=== PATIENT | female | born 1990 | race Caucasian/White ===

== ENCOUNTER 2019-03-01 09:11 | Outpatient (RCR) | payer MEDICAID, SELFPAY ==
--- NOTE | 2019-03-01 09:05 | BH.SGPN.GN ---
Behaviors/Verbalizations/Mental Status: [] Eye contact is good. Motor activity is appropriate. Appearance is casual. Speech is Appropriate. Mood is anxious. Affect is congruent. Thoughts are linear and logical. No evidence of psychosis. Reviewed daily check in sheet and no reports of suicidal ideations or intent. Client Response/Progress/Benefit: [] Pt participated at time during group discussion. Shared with the group that this is her first day in IOP. Stated that her anxiety has been decompensating for past several months to the point where she struggles driving long distances which resulted in her missing a medical appointment yesterday. Also reports that due to anxiety she had not been grocery shopping for over a year. Her goals for the program is to lessen the intensity of her anxiety so she could complete normal daily tasks. No progress noted as this was her first day. Will continue in IOP to maintain safety, stabilize anxiety, prevent decompensation, and improve daily functioning. Narrative Note: []
--- NOTE | 2019-03-01 10:08 | BH.SGPN.GN ---
Behaviors/Verbalizations/Mental Status: []Client alert and oriented, disheveled appearance. Eye contact fair. Motor activity appropriate. Speech within normal limits. Affect constricted, mood anxious. Thoughts linear, logical, no signs of hallucinations or delusions. Client Response/Progress/Benefit: []Client participated in group discussion and attentive throughout. Client reported one cannot avoid conflict ?because then you just have internal conflict within.? Worked together with the group to define and identify differences between internal and external conflict. Group identified that if one does not address conflict the issue never gets resolved and it can lead to more issues. Client worked with group to identify barriers to overcoming conflict which included; frustration, anxiety, avoidance, complacency, anger, and not being able to communicate effectively. Attentive during psychoeducation on different conflict styles such as avoiding, accommodating, competing, and collaborative. Started to review benefits and drawbacks to each style and will continue in the following group. Benefited as she was able to identify and define conflict as well as increase awareness of how conflict style impacts mental health. Client?s first day of IOP. Will continue to prevent decompensation and increase mood stability.
--- NOTE | 2019-03-01 11:11 | BH.SGPN.GN ---
Behaviors/Verbalizations/Mental Status: [Client alert and oriented, casually dressed and groomed. Eye contact good. Motor activity appropriate. Speech within normal limits. Affect congruent, mood euthymic, anxious. Thoughts linear, logical, no signs of hallucinations or delusions. ] Client Response/Progress/Benefit: [ Client responded well to session, attentive and engaged throughout. Participated in the group discussion to define and identify differences between internal and external conflict. Client shared for her internal conflicts can be harder to face than external conflict. Group reported the benefits of addressing conflict included improved relationships, feeling empowered, and better mental health. Group completed a challenge activity in which they were faced with potential conflict situations. They did well to relate barriers faced in activity with the potential barriers to facing conflict in own life. Group identified and discussed consequences of not addressing conflict in healthy ways which included: guilt, increased relationship tension, fear and anxiety, and needs not getting met. Client agreed with peers that avoiding conflict only causes more problems but indicated that she struggles with significant anxiety when thinking about confronting others with potential concerns. Benefited as she was able to identify own conflict style, as well as increase awareness of how conflict style impacts mental health. Client shared connecting with passive and aggressive styles. Will continue IOP tx to promote the use of healthy coping skills and to improve daily functioning.] Narrative Note: []
--- NOTE | 2019-03-02 09:00 | BH.SGPN.GN ---
Behaviors/Verbalizations/Mental Status: [] Eye contact is good. Motor activity is appropriate. Appearance is neat. Speech is Appropriate. Mood is anxious. Affect is congruent. Thoughts are linear and logical. No evidence of psychosis. Reviewed daily check in sheet and no reports of suicidal ideations or intent. Client Response/Progress/Benefit: [] Participated at time during the group discussion. Emotion for today is anxious. 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 She was proud of this progress as anxiety has severely limited her driving however quickly dismissed the positives. 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 Progress noted. Benefited from group support and encouragement. Will continue in IOP to prevent decompensation, stabilize emotions, and increase daily functioning. Narrative Note: []
--- NOTE | 2019-03-02 10:08 | BH.SGPN.GN ---
Behaviors/Verbalizations/Mental Status: [Pt alert and oriented, casual dress, hygiene tended to. Eye contact good. Motor activity appropriate. Speech within normal limits. Affect congruent, mood anxious. Thoughts linear, logical, no signs of hallucinations or delusions.] Client Response/Progress/Benefit: [Pt receptive to session, provided input and remained an active listener throughout discussion on stress. Did well to actively engage despite reports of high anxiety in group environment. Able to brainstorm with the group positive and negative aspects of stress on physical and mental health. Reported stress has caused her chest pain in past. Pt participated in identifying current stressors impacting mental health. Pt's current stressors include: health anxiety, mental health, finances, loneliness, and worry about her future plans. Appeared to benefit from gaining awareness of own current stressors and learning about the impact stress has on overall wellbeing. Progress noted in improved ability to identify impact of not managing stressors is impacting mental health and wellbeing. Recommended continued IOP tx to increase utilization of healthy coping skills, improve anxiety management, and prevent decompensation.] Narrative Note: []
--- NOTE | 2019-03-02 12:03 | BH.NA ---
Physical Data - Vital Signs Temperature: 99.2 F Pulse Rate: 92 Respiratory Rate: 16 Blood Pressure: 108/64 - Height/Weight Height: 1.52 m Weight:: 114.305 kg Weight in Pounds: 252.0 lbs Current Medication Compliance - Medication Compliance Do you take your medication as prescribed?: Yes Do you need assistance with taking medication?: No Have you had side effects from medication?: No Nutritional History - Appetite Nutritional Instructions:: If client shows signs of a swallowing problem, weight change of 10 pounds or more in the last month, or is on a diabetic diet, the physician will review and request a dietitian consult, as appropriate. All unintentional weight loss will be referred to the physician for decision on need for dietitian consult. Describe your appetite:: Good Have you noticed a change in your eating habits lately?: Yes - increased eating - thinks related to med changes Additional nutritional information:: 15# weight gain in the past 6 months Functional Assessment - Sleep Pattern Describe any problems with sleeping: Client describes sleep as fractured and interrupted - Activities Motor Activity:: Functional Sensory/Communication Assess - Dental Problems Do you have any dental problems?: None - Vision Problems Do you have any vision problems?: Glasses - Hearing Problems Do you have any hearing problems?: Adequate - Communication Problems Do you have difficulty understanding what people are saying?: No Do you have trouble putting your thoughts into words or expressing what you want to say?: No Do people ever have trouble understanding what you say?: No What is your primary language?: Croatian Learning Assessment - Education What is your level of education?: Some College - Learning Barriers Learning Barriers:: Ready to learn Medical Problems/History - Pain Assessment Do you have acute or chronic pain?: No - Female Reproductive Do you think you may be ?: No Number of pregnancies:: 0 Number of children:: 0 Have you reached menopause?: No Do you have any history of breast disease?: No Surgical History - Surgical History Have you had any surgeries? If so, list type and date:: No Substance Abuse - Substance Abuse Please describe substance abuse in the last 30 days:: Client notes rare ETOH use. Denies tobacco and illicit substance use. Mental Status Summary - Mental Status Significant Findings/Observations on Appearance and Mood:: Bina is A&Ox4, cooperative with interview, appropriate hygiene and casually dressed. Good eye contact. Speech is clear and of regular rate and volume. Mild anxiety. Full affect. Logical associations. Normal process. General knowledge fund good. Impaired insight into her mental health symptoms and coping skills. No symptoms of delusions. Denies hallucinations, HI, or current SI. Suicide Assessment - Suicidal Ideation Are you currently or have you been suicidal in the past?: Yes Suicidal Intentional Rating Scale (SIRS): Suicidal thoughts (past) Physician Notification: If Active suicidal thoughts/Will not contract for safety is checked, contact physician and document in the Physician Notification section below. Past Psychiatric History - MH Treatment Hx ECT Therapy Details:: N/A Describe (age, circumstance, etc) any past hospitalizations: 3 hospitalizations in 2013, none since Current providers for mental health treatment (counselor, psychiatrist, case coordinator, etc.): NP. Lenny Rm - counselor Fall Risk Assessment - Age Age: Less than 60 - Mental Status Mental Status: Willing & able to ask for assistance when needed - Physical Status Physical Status: No problems - Impairments Impairments: None - Elimination Elimination: Continent AND independent - Gait or Balance Gait or Balance: Walks independently - Hx of Falls History of falls in the past 6 months: No known history - Medications/Substances Psychotropics:: Antidepressants, Antihistamines (e.g. Benadryl) Others:: Antihypertensives Medications/substances used within the past 24 hours or ordered to administer: 3 or more of the medications/substances listed above - Total Score Total Points:: 2 Physician Notification - Physician Notification Physician Notified: Shannan Gray Method of Notification: Face to Face Comments: treatment planning discussion RN Summary of Impressions - Impressions Recommendations: Include psychiatric and medical issues, treatment planning recommendations, and discharge planning needs. Impressions: Psychiatric Issues: anxiety with panic and agoraphobia, MDD Impression: General Medical Conditions: POTS, autoimmune periodic fever disorder - Level of Care How do the client's current symptoms and functional deficits support need for this level of care?: Bina notes a steady decline in her mental health since May of 2018. She endorses increased isolation, social anxiety, and panic attacks. Client also describes physical symptoms associated with her paninc attacks and anxiety that include dizziness and lightheadedness without syncope. Bina has been unable to drive due to anxiety about passing out while at the wheel and hurting someone or herself. 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 She has limited support, including family and friends. She endorses a significant history of trauma, but does not specify or go into detail. IOP will provide social support and skills training to prevent further decompensation and promote gains.
[2019-03-02 12:44] VITALS: BP 108/64; PULSE 92; RESP 16; TEMP 37.3
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
--- NOTE | 2019-03-06 10:10 | BH.SGPN.GN ---
Behaviors/Verbalizations/Mental Status: []Client alert and oriented, casually dressed and groomed. Eye contact good. Motor activity appropriate. Speech within normal limits. Affect congruent, mood anxious. Thoughts linear, logical, no signs of hallucinations or delusions. Client Response/Progress/Benefit: []Client responded well to session, nodding and taking notes. Client connected with the quote and agreed that mental health growth does not just happen by chance. Client reported that one does not always get to decide the forces in their life, but ?we can decide how we respond to them.? Client, along with other group members, provided input and suggestions when identifying what internal/external forces are and the impact that these forces have on their mental health. Examples of negative forces included; high expectations, negative thoughts, self-doubt, lack of follow through, and unmanaged mental health symptoms. Client identified mindfulness, setting boundaries, using coping skills, patience, and self-care as positive forces. The group started, but they did not finish the activity. Benefited from increased awareness of how different positive and negative forces impact mental health. Client?s second week of IOP, appears to be progressing in increasing self-awareness. Will continue IOP tx to prevent decompensation of anxiety symptoms and improve daily functioning.
--- NOTE | 2019-03-06 11:08 | BH.SGPN.GN ---
Behaviors/Verbalizations/Mental Status: [Client alert and oriented, casually dressed and groomed. Eye contact good. Motor activity appropriate. Speech within normal limits. Affect congruent and mood euthymic, anxious. Thoughts linear, logical, no signs of hallucinations or delusions.] Client Response/Progress/Benefit: [Client willing to participate in activity, provided input throughout discussion. Client completed reflection worksheet identifying positive and negative forces impacting life and mental wellness. Client identified positive forces to include: family, therapy, friends, self-awareness, resilience, mindfulness and grounding skills. Client indicated negative forces include: anxiety, self-doubt, urges to isolate, and old habits. Client reported she believes she but would benefit from continued focus on improving ability to cope with anxiety by slowing working on doing the ?anxious thing?. Client seemed to benefit from increased awareness of personal positive and negative forces in life and impact they have on mental health and wellness. Client to continue IOP level of care to maintain gains, continue to promote consistent skill application and healthy change behaviors, and prevent decompensation.] Narrative Note: []
--- NOTE | 2019-03-06 12:16 | BH.MDN ---
Multi-Disciplinary Note - Note 45-min Individual Time Started:: 09:01 Date: 03/06/19 Purpose of session/treatment goals addressed:: Purpose of session was to assess pt's current symptoms and stressors. Also, identified treatment goals whiel in IOP level of care and gathered background information. Eye Contact:: Fair Motor Activity:: Appropriate Appearance:: Casual Speech:: Appropriate Mood:: Dysthymic Affect:: Constricted Thoughts:: Linear, Logical, No evidence of hallucinations/delusions noted Staff Interventions:: Therapist used open ended questions to elicit pt's current symptoms and stressors. Therapist used probing questions to gather additional background information. Therapist collaborated with pt to identify IOP treatment goals. Therapist inquired what skils have been helpful to pt in the past and what skills she has not found to be helpful. Therapist provided support by using active listening and validating emotions. Client Response:: Pt reported she has struggled with anxiety since she was 10 years old when she first started experiencing panic attacks. Pt shared she believes her [employer] health condition was a catalyst to her anxiety due to both disorders having similar physiological symptoms. Pt reported she has struggled with panic attacks in large open spaces, supermarkets, and stores off and on for years. Pt reports since 05/2018 she started experiencing panic attacks while driving. Pt states panic attacks are interferring with her ability to get out of the house, attend her doctor appointments, and inability to go to grocery stores. Pt states her dad does all of her shopping for her. Pt reported while in IOP she would like to work on learning new skills that can help her manage anxious symptoms. Pt states she wants to decrease panic attacks so she can drive and be more independent. Pt reports she has found DBT skills, mindfulness, and some CBT skills to be helpful. Pt states mindfulness helps with decreasing overall stress, but states she lacks skills to manage symptoms in the moment. Pt reports she tries to not avoid things that make her anxious, but admits that can be extremely challenging. Pt Risks/Concerns:: Pt endorses passive thoughts of . Denies active suicidal ideation, plan or intention to date. Progress Toward Goals/Plan:: No progress noted given pt recently started program. Session focused on builiding rapport and establishing treatment goals. Plan is to focus on psychoeducation about anxiety and discussing strategies that can help with decreasing anxiety. Pt to continue IOP level to decrease anxiety, improve healthy skills, and prevent decompensation. Time Stopped:: 09:48
--- NOTE | 2019-03-06 15:35 | BH.MTP_ITS ---
Master Treatment Plan - Patient Information Program Physician:: Dr. Malone Primary Therapist:: Patsy Cano [facility] - Psychiatric Diagnoses Psychiatric Diagnoses:: Panic Disorder with Agoraphobia; Major Depressive Disorder recurrent, moderate; PTSD; OCD; Hx of bulemia; Cluster B traits Diagnosis Code(s):: F40.01 - Estimated LOS Estimated LOS (in weeks):: 6 Problem/Goal #1 - Problem/Goal #1 Stated Goal:: Stabilize anxiety level while increasing ability to function on daily basis. Description of Barriers: Pt's intrusive thoughts, negative thinking, panic attacks, and distorted thought patterns are potential barriers to treatment. Functional Impact: Pt's anxiety impacts pt's ability to drive certain distances and inability to drive on the highway which keeps pt from attending doctor's appointments and visiting supports. Pt's mental health symptoms impact pt's a biltiy to go into grocery stores and shopping stores. Pt's mental health symptoms increase isolative behaviors and decrease social connections. Goal Relevant Strengths/Supports: Pt is intelligent, creative, resilient, and reports desire to get better. - Objectives Objective #1 Stated Objective: Client will learn and implement 2-3 calming and acceptance skills to manage anxiety symptoms. Interventions: Therapist will teach client calming and acceptance skills and how to apply these skills to everyday life. Provide psychoeducation about intrusive thoughts. Discharge Criteria: Client will have achieved this goal when can verbalize and utilize at least 2 calming and acceptance strategies to help manage anxiety. Target Date: 04/12/19 Review Date: 03/29/19 Objective #2 Stated Objective: Pt will decrease anxious symptoms AEB pt?s score on the DSM 5 cross-cutting measure improve pt?s daily functioning. Interventions: Through groups and individual therapy, pt will be provided education about anxiety?s impact on body and common physiological reaction to anxiety. Therapist will teach pt appropriate breathing techniques and build healthy coping skills to manage daily anxieties. Discharge Criteria: Pt will have met this goal when pt?s score on the DSM 5 cross cutting measure for anxiety has been decreased and per pt?s report daily functioning has improved. Target Date: 04/12/19 Review Date: 03/29/19 Problem/Goal #2 - Problem/Goal #2 Stated Goal:: Client will reduce depression, feelings of hopelessness, and suicidal ideation due to Major Depressive Disorder through Intensive Outpatient Program. Description of Barriers: Pt's intrusive thoughts, negative thinking, panic attacks, and distorted thought patterns are potential barriers to treatment. Functional Impact: Pt's anxiety impacts pt's ability to drive certain distances and inability to drive on the highway which keeps pt from attending doctor's appointments and visiting supports. Pt's mental health symptoms impact pt's abiltiy to go into grocery stores and shopping stores. Pt's mental health symptoms increase isolative behaviors and decrease social connections. Goal Relevant Strengths/Supports: Pt is intelligent, creative, resilient, and reports desire to get better. - Objectives Objective #1 Stated Objective: Client will learn and utilize 2-3 healthy coping strategies to manage depressive symptoms. Interventions: Therapist will assist client in learning internal coping strategies to manage depressive symptoms, along with helping client identify triggers. Discharge Criteria: Client will have achieved this goal when can verbalize and has practiced at least 2 healthy coping strategies. Target Date: 04/12/19 Review Date: 03/29/19 Objective #2 Stated Objective: Pt will decrease depressive symptoms AEB pt?s score on the DSM 5 cross-cutting measure and improve pt?s daily functioning. Interventions: Through groups and individual therapy, pt will be provided with education on cognitive distortions, mistaken beliefs, and identifying and combating negative self-talk. Therapist will assist pt with getting back into the activities she once enjoyed as well as increasing healthy coping strategies. Discharge Criteria: Pt will have met this goal when pt?s score on the DSM 5 cross cutting measure for depression has been decreased and per pt?s report daily functioning has improved. Target Date: 04/12/19 Review Date: 03/29/19
--- NOTE | 2019-03-07 09:01 | BH.SGPN.GN ---
Behaviors/Verbalizations/Mental Status: []Eye contact is good. Motor activity is appropriate. Appearance is casual. Speech is Appropriate. Mood is anxious. Affect is constricted. Thoughts are linear and logical. No evidence of psychosis. Reviewed daily check in sheet and no reports of suicidal ideations or intent. Client Response/Progress/Benefit: []Pt listened attentively to others and provided input when elicited by therapist. Emotion for today is exhausted. Pt indicated that she struggled with falling asleep last night so only got 3 hours of sleep. Pt reported she was experiencing anxious thoughts that interfered with sleep. Pt reported eventually listening to a podcast helped her fall asleep. Pt identified a positive was paying her speeding ticket yesterday which has been a significant stressor recently. 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 Pt stated she is unsure if she will take the position because she is unsure if she is in the right mental state to be the lead instructional technology coach for a team. Pt continuing to struggle with managing her anxious thought patterns. Continued IOP tx recommended to decrease isolative behaviors, prevent decompensation, and continue to improve emotion regulation skills. Narrative Note: []
--- NOTE | 2019-03-07 11:15 | BH.SGPN.GN ---
Behaviors/Verbalizations/Mental Status: [Client alert and oriented, casual in appearance. Eye contact good. Motor activity appropriate. Speech within normal limits. Affect congruent, mood euthymic, anxious. Thoughts linear, logical, no signs of hallucinations or delusions.] Client Response/Progress/Benefit: [Pt an attentive and positive participant, actively engaged during discussion. Pt able to connect with the discussion reviewing three categories of skills for managing anxiety which included mind-based, body-based, and self-soothing. Pt did well to brainstorm with the group various skills within the different categories, expressing interest most in mind-based interventions. Pt completed worksheet identifying what relaxation skills she currently uses to manage anxiety and identified what skills she would be willing to begin trying to help manage anxious symptoms. Pt identified she is willing to try the following relaxation skills: meditation, grounding, radical acceptance, 5 senses, yoga, deep breathing, positive self-talk, guided imagery, and music. Pt seemed to benefit from increased awareness of healthy skills to manage anxious symptoms and identifying skills willing to practice outside treatment environment. Pt progress noted in self-report of improved mood and decreased anxiety. Recommended to continue IOP level of care to continue to promote use of healthy coping skills, reduce self-deprecation, and prevent decompensation.] Narrative Note: []
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
--- NOTE | 2019-03-07 14:32 | BH.DR.ITP ---
Initial Treatment Plan - Patient Information Visit Information: ADMISSION DATE: EXPECTED LOS: 4-6 weeks - Problems/Symptoms Problem #1:: Depression Symptom:: sadness, passive thoughts of , Problem #2:: ANxiety Symptom:: panic attacks, difficulty leaving home
--- NOTE | 2019-03-09 09:04 | BH.SGPN.GN ---
Behaviors/Verbalizations/Mental Status: []Client alert and oriented, casually dressed and groomed. Eye contact fair. Motor activity slowed. Speech within normal limits. Affect flat, mood dysthymic. Thoughts linear, logical, no signs of hallucinations or delusions. Reviewed client?s symptom tracker, no risk for suicidal ideation, plan, or intent as of 03/09/19. Client Response/Progress/Benefit: []Client entered session alert and oriented, but she appeared fatigued. Client reports feeling ?exhausted? today due to lack of sleep. Despite lack of sleep, client reported multiple mental health wins today. Client?s wins included; hanging out with friends yesterday when she wanted to isolate, driving without having a panic attack, and actively using coping skills in the car. Client first began to minimize her progress sharing ?I was probably too tired to have a panic attack,? but then client recognized that focusing on her goals was what helped client manage anxiety. Client?s current stressor is anxious, intrusive thoughts that came from being bitten by a kitten. 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 Therapist helped client identify techniques to manage intrusive thoughts and client was receptive. Client appeared to benefit from brainstorming coping skills and reflecting on progress. Will continue IOP tx to reduce anxiety and improve daily functioning.?
--- NOTE | 2019-03-09 10:12 | BH.SGPN.GN ---
Behaviors/Verbalizations/Mental Status: []Client alert and oriented, neatly dressed and casually groomed. Eye contact good. Motor activity appropriate. Speech within normal limits. Affect constricted, mood fatigued, dysthymic. Thoughts linear, logical, no signs of hallucinations or delusions Client Response/Progress/Benefit: []Client participated in group discussion and worksheet activity. Client connected with the quote and shared a difficult situation can open one?s eyes and heart, ?but we have the choice to learn or refuse to change.? Worked together with the group to define a crisis and discuss examples of crisis situations. Client helped the group explore how coping with crisis in unhealthy ways can lead to a mental health crisis. Client stated one can prevent external crises from turning into internal crises by recognizing early warning signs and using coping skills. Client shared one can ignore the warning signs, ?but it only makes it worse.?? Group identified warning signs one could have which included; drinking, distractions, avoidance, sleeping, and crying. Client completed her own personal warning signs worksheet. Client identified her top three crisis warning signs to be sleeping more or less, avoidance, and isolation. Benefited from group by increasing awareness of crisis and personal warning signs. Progress noted as client reported using opposite action yesterday to manage anxiety. Will continue IOP to promote mood stability and reduce anxiety.?
--- NOTE | 2019-03-13 09:00 | BH.SGPN.GN ---
Behaviors/Verbalizations/Mental Status: [] Eye contact is good. Motor activity is appropriate. Appearance is casual. Speech is Appropriate. Mood is anxious. Affect is congruent. Thoughts are linear and logical. No evidence of psychosis. Reviewed daily check in sheet and no reports of suicidal ideations or intent. Client Response/Progress/Benefit: [] Pt was an active participant in group discussion. Shared that she had a panic attack this AM while driving to group. She has been ruminating quite extensively on a recent event were a cat scratched her. She went to see a physician and they informed her that she did not need the rabies vaccine and noted several reasons why. She is having a hard time with this and is catastrophizing believing that she will get rabies. She is starting to implement some strategies to decrease the catastrophizing however reports that she is struggling and the thoughts are starting to impact daily functioning. She called off work yesterday. Group provided feedback on thought stopping and acceptance. Pt did report an acceptance thought stating well if I from rabies I told my BF to put I told you so on my headstone. Participated in group discussion on anger mgmt skills, thoughts stopping, thought challenging, catastrophizing, and setting boundaries. Symptom regression related to obsessive thoughts. Benefited from group feedback, encouragement, and support. Will continue in IOP to prevent decompensation, improve daily functioning, decrease severity of anxiety and panic attacks. Narrative Note: []
--- NOTE | 2019-03-13 11:15 | BH.SGPN.GN ---
Behaviors/Verbalizations/Mental Status: [Eye contact good. Motor activity is appropriate. Appearance is casual. Speech is appropriate rate and tone. Mood is euthymic, anxious. Affect is congruent with mood. Thoughts are linear and logical. No evidence of psychosis.] Client Response/Progress/Benefit: [Pt engaged throughout activity and discussion portions of group, providing input to discussion as well as supportive feedback to fellow group members. Pt contributed ideas to discussion on what influences resilience as well as the mental health benefits of being resilient. Sharing that resilience increases our ability to bounce back after a crisis situation. Able to make connections between topic and group activity. Pt did well to work within the small group setting to discuss the factors in building Resilience and benefitted from reviewing strategies for developing and promoting a resilient lifestyle. Pt identified that radical acceptance can be used to improve ability to ?accept change as a part of life?. Pt discussed that this would increase confidence in ability to manage change as well as reduce anxiety about facing the unknown. Pt progress noted in her ability to remain engaged in group environment as well as improved levels of insight regarding her manifestation of her own anxiety. Would benefit from continued IOP tx to prevent decompensation, continue to promote application of healthy skills to reduce anxiety and improve thought challenging. ] Narrative Note: []
--- NOTE | 2019-03-14 09:10 | BH.SGPN.GN ---
Behaviors/Verbalizations/Mental Status: []Client alert and oriented, casually dressed and groomed. Eye contact good. Motor activity appropriate. Speech within normal limits. Affect full, mood euthymic. Thoughts linear, logical, no signs of hallucinations or delusions. Reviewed client?s symptom tracker, no risk for suicidal ideation, plan, or intent as of 03/14/19. Client Response/Progress/Benefit: []Client responded well to session, providing supportive statements and ideas to peers. Client reports feeling ?pleasant? today. Client shared she was able to drive herself around this morning without having a panic attack. Client reported she used several coping skills including listening to uplifting music while driving, using positive self-talk, and opposite action. Client shared she continues to struggle with managing her intrusive thoughts, especially about a certain situation involving getting scratched by a cat. Client recognized that she is able to manage her intrusive thoughts better than she has in the past as shown by client experiencing them less frequently than before. Appeared to benefit from connecting with peers and reflecting on personal progress in driving. Will continue IOP to further reduce anxiety and intrusive thinking to improve daily functioning.
--- NOTE | 2019-03-14 10:15 | BH.SGPN.GN ---
Behaviors/Verbalizations/Mental Status: [] Eye contact is good. Motor activity is appropriate. Appearance is casual. Speech is Appropriate. Mood is anxious. Affect is congruent. Thoughts are linear and logical. No evidence of psychosis. Client Response/Progress/Benefit: [] Pt was an active participant in group activity and discussion. Provided insight on quote of the day. Group worked together to identify what are pitfalls when it comes to mental health recovery which included; lack of awareness, lack of motivation, cognitive distortions, poor boundaries, toxic relationships, shutting down, isolating, and negative thoughts. Group discussed the impact of pitfalls and how these can impact progress. Attentive during psychoeducation. Pt participated in group activity. Pt admitted to getting irritable and frustrated with the activity, however was able to use direct communication to help. Was able to relate this to feelings associated with encountering a mental health pitfall. Group identified that when they encountered challenges during the activity they began to; hammer things, began to focus on failing, had increased negative thoughts, and became overstimulated and overwhelmed. Related these to emotions and actions that occur when they encounter mental health pitfalls. Benefited from group by increased awareness on recognizing and understanding the impact of mental health pitfalls. Narrative Note: []
--- NOTE | 2019-03-14 11:14 | BH.SGPN.GN ---
Behaviors/Verbalizations/Mental Status: [Client alert and oriented, casually dressed and groomed. Eye contact good. Motor activity appropriate. Speech within normal limits. Affect congruent to topic being discussed, mood euthymic, anxious, positive. Thoughts linear, logical, no signs of hallucinations or delusions. ] Client Response/Progress/Benefit: [Pt receptive of session, engaged throughout and providing supportive feedback as well as positive input to group discussion. Attentive and taking notes during discussion. Pt completed a worksheet where she identified personal pitfalls which included: ?fear?, ?not challenging emotions or behaviors ?being complacent?, resisting help, personal relationships, and not being comfortable with the unknown. Pt went on to describe ?fear? as her largest pitfall and indicated that this contributes to intensifying her other identified pitfalls. Pt was provided insight during discussion on how the strategies used to overcome pitfalls in challenge activity could be applied to daily life. Group worked together to identify strategies to overcome personal and general pitfalls. Pt identified personal strategies to try as: check-in with self, regularly answer messages, accept help when offered, and increase awareness of avoidance behaviors due to fear. Benefited from identifying personal and general pitfalls and strategies to over these pitfalls. Pt has made progress in IOP with increasing self-awareness and making daily efforts to increase ability to cope with identified stressors and barriers. Recommended continue tx to promote change behaviors, improve use of healthy decisive action, regulate emotions, and prevent decompensation.] Narrative Note: []
--- NOTE | 2019-04-09 13:48 | BH.DS ---
Discharge Summary - Demographics Date of Admission:: 03/01/19 Discharge Date: 04/09/19 Presenting Problems at Admission:: Patient reported she was referred by her outpatient therapist, Nadine Taveras, due to worsening anxiety with panic attacks. Pt stated since 05/2018 pt started having panic attacks while driving. Pt reported she can't drive long distances in the car without having a panic attack. Pt stated she is able to drive short distances but still can have panic attacks which require her to well puller head until the panic attack passes. Pt stated her panic attacks impact her ability to make it to her doctor appointments, can't go to the grocery store, and limited social contact with others due to difficulty driving places. Pt states she hasn't been to a grocery store in over 8 months. Pt states her depression is always there with her symptoms exasperating when she feels stuck due to not being able to drive. Endorses erratic sleep, hopelessness, isolative behaviors, avoidant behaviors, and passive thoughts of . Pt endorses passive thoughts of I wish I was , but denies intention or plan to kill self. Pt cooperative during assessment, eye contact fair, speech wnl, motor activity appropriate, mood dysthymic, affect constricted, and no signs of delusions or hallucinations. Discharge Diagnoses:: F40.01 Panic attacks with Agoraphobia, major depressive disorder recurrent moderate, OCD, PTSD, history of bulimia Reason for Discharge:: Pt has made significant progress on treatment goals since starting IOP and no longer meets criteria for IOP level of care. - Treatment Progress During Treatment & Response: Able to work through fear ladders by using acceptance and acknowledgement skills. Increased hopefulness. Feeling increased motivation to face problems instead of avoidance. Able to ?ride the anxiety? on a more frequent basis instead of using false comfort or avoidance. Overall reporting improved mood. Able to recognize own positives. - Increased self-confidence that pt can overcome anxieties. Responded well to treatment AEB actively contributing in group and individual counseling sessions and applied skills outside treatment environment. Discharge Recommendations/Instructions:: 1. Brittney Constantino on 04/11/19 at 8am for medication management. 2. Nadine at [facility] for counseling on 04/11/19. Discharge Handout: Complete Discharge Handout with client on aftercare options and continuity of care.
== END 2019-03-14 23:59 ==
LOC: BHIOP 09:11
PROVIDERS: Family Provider Internal Medicine; PCP Internal Medicine; Referring Provider Psychiatry & Neurology Psychiatry; Visit Provider Psychiatry & Neurology Psychiatry
DX: F40.01 Agoraphobia with panic disorder (principal); F33.1 Major depressive disorder, recurrent, moderate; F43.10 Post-traumatic stress disorder, unspecified; F42.9 Obsessive-compulsive disorder, unspecified; F50.2 Bulimia nervosa; A18.01 Tuberculosis of spine; M04.1 Periodic fever syndromes; F17.210 Nicotine dependence, cigarettes, uncomplicated; Z79.899 Other long term (current) drug therapy; E66.9 Obesity, unspecified
CPT/HCPCS: 90792; H0035; H2012; H2020; T1002; 90834

== ENCOUNTER 2019-03-15 09:00 | Outpatient (RCR) | payer MEDICAID, SELFPAY ==
[2016-01-18 22:50] VITALS: BMI 45.1
[2019-03-15 01:15] VITALS: BP 108/64; PULSE 92; RESP 16; TEMP 37.3
--- NOTE | 2019-03-15 09:10 | BH.SGPN.GN ---
Behaviors/Verbalizations/Mental Status: [] Eye contact is good. Motor activity is appropriate. Appearance is casual. Speech is Appropriate. Mood is anxious. Affect is congruent. Thoughts are linear and logical. No evidence of psychosis. Reviewed daily check in sheet and no reports of suicidal ideations or intent. Client Response/Progress/Benefit: [] Pt was an active participant in group discussion. Shared that she continues to ruminate and experience intrusive thoughts regarding a cat scratch and rabies. Reports feeling positive and determined today however reports that last evening she had several panic attacks while driving. She discussed what strategies she is utilizing to address intrusive thoughts and group provided feedback. She reports that she is determined to make today a good day and states that she is trying to change her perspectives and be more in control of her thoughts and behaviors. Progress noted. Benefited from group support, encouragement, and feedback. Will continue in IOP to prevent decompensation, stabilize intrusive thoughts, decrease panic attacks, and improve daily functioning. Narrative Note: []
--- NOTE | 2019-03-15 10:16 | BH.SGPN.GN ---
Behaviors/Verbalizations/Mental Status: []Client alert and oriented, casually dressed and groomed. Eye contact good. Motor activity appropriate. Speech within normal limits. Affect congruent, mood euthymic, slightly anxious. Thoughts linear, logical, no signs of hallucinations or delusions. Client Response/Progress/Benefit: []Client responded well to session, actively contributing to discussion and attentive throughout. Client indicated connecting with the topic of cognitive distortions and stated, ?even if we don?t change reality with our thoughts, we change our reality.? Client shared negative thoughts tend to come easier than positive thoughts. Client reported unmanaged, negative automatic thoughts can seriously impact mental health and functioning. Client stated negative thinking can turn into poor self-image and self-fulfilling prophecies. Client did well to work with the group on defining the various types of cognitive distortions and their impact on mental health. Client reported connecting with distortions of mind-reading, all or nothing thinking, catastrophizing, and shoulds. Client reported she often catastrophizes and has intrusive thoughts. Appeared to benefit from increasing awareness of cognitive distortions and how they can impact emotions and behaviors. Client continues show strides in generalizing coping skills to manage anxiety and intrusive thoughts, but client can continue IOP to further reduce symptoms and improve daily functioning.
--- NOTE | 2019-03-15 11:15 | BH.SGPN.GN ---
Behaviors/Verbalizations/Mental Status: []Client alert and oriented, casually dressed. Eye contact good. Motor activity appropriate. Speech within normal limits. Affect congruent, mood euthymic and anxious. Thoughts linear, logical, no signs of hallucinations or delusions. Client Response/Progress/Benefit: []Pt active participant during session AEB pt providing contributions throughout group session and engaging in activities. Pt worked cooperatively with peers during group activity. Pt connected importance of needing to have awareness and put forth the effort to defeat distorted thought patterns. Pt reported a distorted thought she has is If I don't get a 4.0 GPA each semester I won't get into grad school. Pt identified this thought makes her feel anxious, worried, and a failure. Pt identified her thought consists of several different distorted thoughts. Pt able to reframe distorted thought to GPA isn't the only factor for grad school. Also, I've been doing really well academically without a 4.0. Pt seemed to benefit from increased awareness of cognitive distortions and practicing reframing distorted thoughts. Pt to continue IOP level of care to decrease avoidance behavior, improving acceptance of anxious thoughts and prevent decompensation. Narrative Note: []
--- NOTE | 2019-03-15 14:45 | BH.MDN ---
Multi-Disciplinary Note - Note 45-min Individual Time Started:: 12:10 Date: 03/20/19 Purpose of session/treatment goals addressed:: Purpose of session was to assess pt's current symptoms and stressors. Other topics: psychoeducation about intrusive thoughts, reviewed homework, and created fear ladder for driving. Eye Contact:: Good Motor Activity:: Appropriate Appearance:: Casual Speech:: Appropriate Mood:: Anxious Affect:: Congruent Thoughts:: Linear, Logical, No evidence of hallucinations/delusions noted Staff Interventions:: Therapist used open ended questions to elicit pt's current symptoms and stressors. Therapist reviewed homework from last individual session. Therapist reiterated psychoeducation about intrusive thoughts. Therapist reviewed skills that can be helpful with intrusive thoughts. Therapist assisted pt with creating a fear ladder about driving. Therapist provided support by active listening and validating emotions. Client Response:: Client reported yesterday she had a good day until she had a panic attack while driving home from a friends house in the evening. Client stated she continued to have panic attacks the rest of the evening and wasn't able to go to sleep until 2am. Client reported she only got about 4 hours of sleep last night. Client stated she tried several different coping skills to help with going to sleep and eventually using her senses helped. Client stated this morning she woke up feeling exhausted but she pushed herself to take a morning drive and used positive self-talk to encourage self that today will be a good day. Client shared she felt anxious and experience panic symptoms during group at times, but was able to manage her symptoms without needing to escape. Client reported she does become extremely focused on not letting others know she is having a panic attack, which client recognized likely isn't helpful. Client identified for driving her fear ladder in order from least anxiety provoking to most anxiety provoking include: driving during the day, needing to have sunglasses while driving, needing to have air conditioning on, needing to smoke a cigarette while driving, driving on certain streets and highways, and having to have water in order to drive. Client reported she has been doing well with being able to drive during the day. Client stated she is ready to start working on driving without her sunglasses, unless it's appropriate time to wear the sunglasses. Risks/Concerns:: Client denies current suicidal ideation, plan or intention. Progress Toward Goals/Plan:: Client is progressing with increased awareness and understanding of intrusive thoughts. Client also progressing with attempting to sit with the uncomfortable instead of avoiding what makes her anxious. Time Stopped:: 12:55
--- NOTE | 2019-03-20 09:03 | BH.SGPN.GN ---
Behaviors/Verbalizations/Mental Status: []Client alert and oriented, casual appearance. Eye contact good. Motor activity appropriate. Speech within normal limits. Affect constricted, mood anxious, fatigued. Thoughts linear, logical, no signs of hallucinations or delusions. Reviewed client?s symptom tracker, no risk for suicidal ideation, plan, or intent as of 03/20/19. Client Response/Progress/Benefit: []Client responded well to session, attentive and participating. Client reports feeling ?tired but hopeful and determined? today. Client shared her panic attacks became worse over the weekend which client reports was due to having flashbacks. Client stated she does not feel discouraged, though, as she had some mental health wins. Client reported she was able to get through a presentation without having a panic attack. Client also went to the [employer] last week which is the first ?non [employer] store? client has been to in a year. Client reported she felt proud of herself for accomplishing this. Appeared to benefit from connecting with peers and reflecting on personal accomplishments. Will continue IOP tx to reduce anxiety and avoidance behaviors that reinforce anxiety.?
--- NOTE | 2019-03-20 10:08 | BH.SGPN.GN ---
Behaviors/Verbalizations/Mental Status: [Client alert and oriented, casually dressed and groomed. Eye contact good. Motor activity appropriate. Speech within normal limits. Affect congruent, mood anxious. Thoughts linear, logical, no signs of hallucinations or delusions.] Client Response/Progress/Benefit: [Client remained an active participant during group AEB client contributing to discussion, taking notes, and making connections throughout. Client reported it is important to have a variety of social supports and shared connecting with concept of pets being supports as well. Client helped group brainstorm potential consequences of not having a support system and barriers to developing social supports, which included: feeling like a burden, lack of effective communication, anxiety, and not knowing where/how to find healthy supports, struggling to set boundaries with unhealthy supports. Group identified benefits of social support as: encouraging us, increased motivation, less loneliness, different perspective, help us challenge ?what if? thoughts, ?keep you grounded?, and accountability. Client reported when she feels supported, she feels less anxious and more confident on own abilities. Client took an active role during the group activity and was open to feedback from others. Appeared to benefit from gaining awareness of barriers that keep people from seeking social support as well as identifying the benefits of increasing support. Client progressing AEB client being actively engaged in group despite high anxiety levels and providing input regarding ways she could personally apply skills learned. Will continue IOP tx to reduce depression and anxiety, improve symptom management and healthy communication, and prevent decompensation.] Narrative Note: []
--- NOTE | 2019-03-20 11:20 | BH.SGPN.GN ---
Behaviors/Verbalizations/Mental Status: []Eye contact is good. Motor activity is appropriate. Appearance is casual, appropriate grooming. Speech is Appropriate. Mood is anxious. Affect is congruent. Thoughts are linear and logical. No evidence of psychosis. Client Response/Progress/Benefit: []Client responded well to session, active participant in discussion. Client helped the group discuss and identify different social supports as well as the benefits of different supports. The group identified examples of personal, self-help, professional, spiritual, and co-worker social supports. Group identified benefits of each type of social support. Client reported she wants to increase consistent healthy personal relationships, which she stated would benefit her by feeling more supported and having someone to talk to when in need. Client appeared to benefit from increasing understanding of different types of social support and identifying ways she can improve. Client progressing with application of skills outside treatment environment, however continues to struggle with intrusive thoughts that interfere with ability to drive certain places and be social. Client to continue IOP to prevent decompensation, increase use of coping skills, and continue using skills to manage intrusive anxious thoughts. Narrative Note: []
--- NOTE | 2019-03-21 09:00 | BH.SGPN.GN ---
Behaviors/Verbalizations/Mental Status: [Client alert and oriented, casually dressed and appropriately groomed. Eye contact good. Motor activity appropriate. Speech within normal limits. Affect congruent to topic being discussed, mood dysthymic and anxious. Thoughts linear and logical, no signs of hallucinations or delusions. Reviewed daily check in sheet, pt reporting SI at a score of 1/5 which is consistent with baseline, denies current plan, or intent. ] Client Response/Progress/Benefit: [Pt engaged in group discussion, actively listening and providing input and feedback throughout. Emotion for today is exhausted and numb. Pt indicated that current emotion is due to increased difficulties with sleep and struggling to manage current stressors. Pt did well to identify mental health wins despite current stressors. Indicated getting to group today as a win and shared that she had slept through her outpatient therapy appointment the previous date which made coming to group today more important to her. Pt expressed using positive self-talk as a means for motivating herself. Additional win was successfully managing stress related to looking up graduate schools and expressed that she focused on ?remembering my resilience? to do so. Pt ability to manage anxiety and prevent panic by using internal skills in the moment indicates progress. Pt appearing to benefit from feedback and support provided by group. Pt recommended continued IOP tx to promote use of coping skills, improve anxiety management, and prevent decompensation.] Narrative Note: []
--- NOTE | 2019-03-21 10:08 | BH.SGPN.GN ---
Behaviors/Verbalizations/Mental Status: []Eye contact is good. Motor activity is appropriate. Appearance is casual, appropriate grooming. Speech is Appropriate. Mood is euthymic, positive, slightly anxious. Affect is congruent. Thoughts are linear and logical. No evidence of psychosis. Client Response/Progress/Benefit: []Pt active participant in group AEB pt contributing thoughts and ideas throughout session and listening attentively to peers. Group worked together to identify barriers to making changes or taking action in their lives which included: lack of self-awareness, old habits, negative mindset, fear of failure, negative emotions (depression, anxiety, etc..), lack of resources, and other people. When discussing challenges of taking action pt stated she thinks the costs of change has to outweigh the pain of not changing. Group also identified that benefits of change which included; improved relationships, increased communication, improved mental wellness, increased confidence, and feelings of accomplishment. Pt identified areas she would like to take back control over to include: avoidance, procrastination, wallowing in self-pity, toxic relationships, and ruminations. Benefited from group through awareness of personal areas want to improve and benefits to taking action towards mental wellness. To continue IOP level of care to continue accepting and allowing intrusive thoughts, continue to utilize healthy coping skills and prevent decompensation. Narrative Note: []
--- NOTE | 2019-03-21 11:08 | BH.SGPN.GN ---
Behaviors/Verbalizations/Mental Status: []Client alert and oriented, neatly dressed and groomed. Eye contact good. Motor activity appropriate. Speech within normal limits. Affect congruent, mood euthymic. Thoughts linear, logical, no signs of hallucinations or delusions. Client Response/Progress/Benefit: []Client responded well to session, active participant and helping peers identify goals. Client identified less rumination as the one thing she wants to start taking more action on in her mental health treatment. Client reported focusing on this will help client because ?I can?t function when I?m stuck in my thoughts.? Client attentive during psychoeducation on the different zones of change. Client able to give examples of benefits and costs in each zone. Client identified two small activities to promote behavioral activation towards her goal of reducing rumination. Client plans to practice meditation once a day using guided meditation videos. Client also plans to start bullet journaling again to help track her progress in using meditation. Client shared both of these activities will help rumination and intrusive thinking. Benefited from psychoeducation and small goal setting. Progress noted as client reports applying coping skills to manage intrusive thinking and regulate anxiety. Will continue IOP to further reduce anxiety to improve daily functioning.
--- NOTE | 2019-03-21 14:24 | BH.MDN_ITS ---
Multi-Disciplinary Note - Note 45-min Individual Time Started:: 12:12 Date: 03/21/19 Purpose of session/treatment goals addressed:: Purpose of session was to assess pt's current symptoms and stressors. Other topics included: reviewed homework from last session, discussed treatment progress, and fear ladder. Eye Contact:: Good Motor Activity:: Appropriate Appearance:: Casual Speech:: Appropriate Mood:: Anxious Affect:: Congruent Thoughts:: Linear, Logical, No evidence of hallucinations/delusions noted Staff Interventions:: Therapist used open ended questions to elicit pt's current symptoms and stressors. Therapist reviewed pt's homework from last session. Cautioned pt to take small steps when working on fear ladder. Therapist processed current intrusive thought about having rabies from a cat scratch weeks ago. Therapist elicited pt's thoughts about treatment progress. Therapist provided information about creating a more structured fear ladder. Therapist gave pt homework to create her fear ladder for the issue that she believes is interferring most with her functioning. Client Response:: Pt reported over the past week she has been struggling with increased PTSD flashbacks and panic like symptoms before bed. Pt shared she has been able to manage her flashbacks with grounding tools. Pt stated she continues to struggle with having intrusive thoughts about having rabies because of being scratched by a stray cat a few weeks ago. Pt reported she is trying to use labeling skills that this is an intrusive thought and is being mindful of her trying to reassure herself or do any research that would increase the intrusive thought. Pt stated she has been engaging in some compulsions by drinking water to prove to herself that she doesn't have rabies. Pt reported she has awareness this is a false comfort and only strengthens the intrusive thought. Pt reported progress with being able to go inside [employer]. Pt stated when she got to [employer] she rated her anxiety at a level 9/10 with 10 being severe. Pt stated she was able to get her anxiety down to a 6 while in the store. Pt reported she became increasingly anxious when checking out at the store, but was able to manage her symptoms and finish her shopping. Pt stated she also completed the least anxiety provoking task of driving to the store without wearing her sunglasses. Pt reported she was able to complete that task with minimal anxiety, but following the store she had to wear her sunglasses. Pt agreeable to create a structured fear ladder with provided handout and identify the intensity of anxiety for each item. Risks/Concerns:: Pt denies suicidal ideation, plan or intention to date. Progress Toward Goals/Plan:: Progress noted with being able to use coping skills to go into a [employer] tree and completed task of driving without wearing her sunglasses. Pt has recent increase in intensity with intrusive thought she has rabies. With this particular intrusive thought pt continues to struggle with using healthy skills, instead engaging in compulsions to reduce anxiety. Pt to continue IOP level of care to decrease anxiety, continue to use healthy skills, and prevent decompensation. Time Stopped:: 12:42
--- NOTE | 2019-03-22 09:03 | BH.SGPN.GN ---
Behaviors/Verbalizations/Mental Status: []Client alert and oriented, casually dressed and groomed. Eye contact good. Motor activity appropriate. Speech within normal limits. Affect full, mood euthymic. Thoughts linear, logical, no signs of hallucinations or delusions. Reviewed client?s symptom tracker, no risk for suicidal ideation, plan, or intent as of 03/22/19. Client Response/Progress/Benefit: []Client responded well to session, providing ideas for coping skills to peers. Client reports feeling ?perky and happy? today. Client stated she was able to challenge herself yesterday and client went into a restaurant. Client has high anxiety which has led to severe avoidance, so client recognized the significance of this accomplishment. Client reported she could have taken the easy way out, but she shared ?I made myself get food from somewhere I?d have to walk in.? Client also organized for school and drove yesterday for 20 minutes and client reported ?it went great.? Client?s current stressor is ?I keep having terrible nightmares? which client recognized could be connected to client challenging herself to face more anxious situations. Client shared she has been coping well with the nightmares which demonstrates progress. Will continue IOP to promote gains and further reduce anxiety.
--- NOTE | 2019-03-22 10:10 | BH.SGPN.GN ---
Behaviors/Verbalizations/Mental Status: []Client alert and oriented, casually dressed and groomed. Eye contact good. Motor activity appropriate. Speech within normal limits. Affect full, mood euthymic. Thoughts linear, logical, no signs of hallucinations or delusions. Client Response/Progress/Benefit: []Client active participant as shown by client?s contribution to discussion and helpful insight. Client reported self-care is important because ?we can?t provide to others if we don?t practice self-care.? Client participated in the discussion of the common myths about self-care including self-care is selfish, easy, just personal hygiene, and always fun. Client gave examples of self-care activities such as boundary setting, thought challenging, and doing things she enjoys. Client stated if one does not engage in self-care it will likely result in being overwhelmed, burnout, and more depressed. Client reported belief it is important to challenge one?s perspective on selfishness and stated, ?being selfish isn?t always bad if we just it to better ourselves.? Client engaged in activity and able to connect how sometimes to make self-care a priority, a person must set boundaries in other areas of their lives. Client seemed to benefit from increased awareness of the importance of self-care. Client showing progress as shown by her report of improved mood and utilization of coping skills to better regulate anxiety. Will continue tx to further reduce anxiety to promote daily functioning.
--- NOTE | 2019-03-22 11:15 | BH.SGPN.GN ---
Behaviors/Verbalizations/Mental Status: [Client alert and oriented, casually dressed and appropriate grooming. Eye contact good. Motor activity appropriate. Speech within normal limits. Affect congruent, mood euthymic, anxious. Thoughts linear, logical, no signs of hallucinations or delusions.] Client Response/Progress/Benefit: [Client receptive of session, listening and providing positive contributions to discussion. Willing to complete worksheet activity. Participated as the group further processed the activity and connected with the importance of self-care in maintaining mental health and promoting balance. Client completed self-assessment activity on the different areas of self-care and was able to identify current practices she uses and areas she would benefit to improve upon. Client reported she can improve her psychological and emotional self-care. Client set a goal to improve in the area of psychological self-care. Client?s goal is to practice applying concepts of dialectical thinking to reduce intrusive thoughts. Client shared this would benefit client because client has struggled with learning to ?sit with the uncomfortable? and often seeks reassurance regarding anxiety. Client appeared to benefit from increasing awareness of how she can improve her self-care balance. Progress noted as client has been able to increase insight regarding impact of personal decisions on her mental health and relationships. Will continue IOP tx to promote gains and to further improve daily functioning.] Narrative Note: []
--- NOTE | 2019-03-28 09:00 | BH.SGPN.GN ---
Behaviors/Verbalizations/Mental Status: [] Eye contact is good. Motor activity is appropriate. Appearance is casual. Speech is Appropriate. Mood is anxious. Affect is congruent. Thoughts are linear and logical. No evidence of psychosis. Reviewed daily check in sheet and pt reports 1/5 for suicidal ideations and 0/5 for intent. Client Response/Progress/Benefit: [] Pt was an active participant in group discussions. Emotion for today is numb, exhausted, and irritated. Reports exacerbation of medical issues which has impacted mood today. Shared with the group that she completed her goal for the weekend. She is working through her fear ladder which she explained to the group. Goal was to drive to drug [employer] and remain in the store for 30 minutes. She completed her goal and was able to manage her anxiety symptoms. She reports that she took that momentum and spent time with friends and went swiming. Overall she was proud of herself however notes that she found herself often minimizing her accomplishments thinking Other people accomplish these tasks everyday its not that big of deal. Group challenged this distortion and provided feedback. Progress noted per pt report. Will continue with IOP to prevent decompensation, improve daily functioning, and decrease panic/anxiety. Narrative Note: []
--- NOTE | 2019-03-28 10:10 | BH.SGPN.GN ---
. Behaviors/Verbalizations/Mental Status: [] Eye contact is good. Motor activity is appropriate. Appearance is causal. Speech is Appropriate. Mood is anxious. Affect is congruent. Thoughts are linear and logical. No evidence of psychosis. Client Response/Progress/Benefit: [] Pt was an active participant in group activity and discussion. Shared insight on quote of the day. Group worked together to define goals and identify the purpose of developing goals which included; identifying and making healthy changes or attempting to maintain a behavior. Group also identified barriers to setting and accomplishing goals which include; can be overwhelming, too much effort, fear of failure, and limited awareness of what to do or change. Attentive during education on developing SMART goals. Benefited from increase awareness of goal-setting methods. Will continue in IOP to prevent decompensation, decrease daily panic, and improve daily functioning. Narrative Note: []
--- NOTE | 2019-03-28 11:20 | BH.SGPN.GN ---
Behaviors/Verbalizations/Mental Status: [Eye contact is fair-good. Motor activity is appropriate. Appearance is casual. Grooming appropriate. Speech has normal rate and tone. Mood is dysthymic, anxious. Affect is congruent. Thoughts are linear and logical. No evidence of psychosis. ] Client Response/Progress/Benefit: [Pt attentive throughout, contributed thoughts to discussion and provided supportive feedback to fellow participants. Engaged in creating own mental health SMART goal. Pt identified goal is to decrease negative outlook by saying 3-4 positive affirmations daily over the next week. Pt reported this goal will benefit her by decreasing feeling depression and improving confidence in managing anxiety. Pt identified potential barriers to accomplishing goal to include: forgetting, not believing affirmations, low self-confidence, and high-expectations. Pt reported they will overcome barriers by identifying realistic positive affirmations, setting reminders, and having someone help hold them accountable. Seemed to benefit from identifying a SMART goal and coming up with strategies to overcome potential barriers. Pt to continue IOP to increase consistent application of healthy coping skills, decrease depression, maintain gains, and prevent decompensation.] Narrative Note: []
--- NOTE | 2019-03-29 09:00 | BH.SGPN.GN ---
Behaviors/Verbalizations/Mental Status: [] Eye contact is good. Motor activity is appropriate. Appearance is disheveled. Speech is Appropriate. Mood is anxious. Affect is congruent. Thoughts are linear and logical. No evidence of psychosis. Reviewed daily check in sheet and no reports of suicidal ideations or intent. Client Response/Progress/Benefit: [] Pt was an active participant in group discussion. Provided feedback to peers. Emotions for today is happy. Shared that she had begun to set up her aftercare plans and found a trauma program which she believes will be helpful. States that she is more hopeful as opposed to when she started IOP as she did not beleive that her symptoms would improve. Stressors include exacerbation of chronic medical issues however is practicing radical acceptance. Progress noted as she reports being more in control of her thoughts, feelings, and actions. Benefited from group support, encouragement, and feedback. Will continue in IOP to decrease panic attacks, improve daily functioning, and prevent decompensation. Narrative Note: []
--- NOTE | 2019-03-29 10:00 | BH.SGPN.GN ---
Behaviors/Verbalizations/Mental Status: []Eye contact is good. Motor activity is appropriate. Appearance is causal. Speech is Appropriate. Mood is anxious and positive. Affect is congruent. Thoughts are linear and logical. No evidence of psychosis. Client Response/Progress/Benefit: []Pt responded well to session AEB pt listening attentively to others and contributing to discussion at times. Pt connected with peers during discussion about common unhealthy skills that are often used to manage stressors and mental health. Pt stated she often uses sleep and avoidance as unhealthy coping skills. Pt reported self-awareness to be essential in order to know what skills currently using are healthy/unhealthy. Pt stated self-awareness is difficult because don't want to admit what need to change. Pt able to make connections when processing group activity about importance of creating a stable base of healthy coping skills. Pt seemed to benefit from increased awareness of benefits of using healthy coping skills and understanding importance of having balance between internal and external coping skills. Pt to continue IOP level of care to decrease anxiety, increase healthy coping skills, and prevent decompensation. Narrative Note: []
--- NOTE | 2019-03-29 11:02 | BH.SGPN.GN ---
Behaviors/Verbalizations/Mental Status: []Client alert and oriented, casually dressed and groomed. Eye contact good. Motor activity appropriate. Speech within normal limits. Affect congruent, mood euthymic. Thoughts linear, logical, no signs of hallucinations or delusions. Client Response/Progress/Benefit: []Client responded well to session, engaged throughout and providing ideas during group brainstorming. Client appeared to connect with the activity from second group and helped the group identify benefits of having a strong foundation of internal and external coping skills. Client shared she has been ?burned before? which has kept client from reaching out to supports. Client helped the group discuss the different categories of coping skills and provided examples. Client reported it is important to not just use distraction or self-care, but a variety of coping skills. Client created a coping skills ?menu? from the five categories of coping skills. Client selected puzzles, working out, self-talk mantra, limiting screen time, and writing out her negative thoughts as her coping skills to try. Client appeared to benefit from increasing her repertoire of healthy coping skills. Progress noted in client?s ability to work on her fear ladder which has helped client avoid anxious situations less often. Will continue IOP to promote gains and mood stability.
--- NOTE | 2019-03-29 16:25 | BH.MDN ---
Multi-Disciplinary Note - Note 45-min Individual Time Started:: 12:08 Date: 03/29/19 Purpose of session/treatment goals addressed:: Purpose of session was to assess pt's current symptoms and stressors. Other topics: review homework from last session, identify treatment progress, and identify areas what to work on prior to discharge from [facility]. Eye Contact:: Good Motor Activity:: Appropriate Speech:: Appropriate Mood:: Euthymic, Anxious Affect:: Full Thoughts:: Linear, Logical, No evidence of hallucinations/delusions noted Staff Interventions:: Therapist used open ended questions to elicit pt's current symptoms and stressors. Therapist reviewed pt's homework from last session. Therapist elicited pt's thoughts about treatment progress. Therapist collaborated with pt to identify areas pt would like to focus on prior to discharge from [facility]. Therapist provided support by using active listening and providing feedback. Client Response:: Pt shared her fear ladders that she created with one fear ladder focusing on driving and the second focusing on going into a grocery or shopping store. Pt stated she is willling to focus on the least anxiety provoking activity for both of her fear ladders. Pt reported she had many wins on Tuesday. Pt reported on Tuesday she went in the [employer], went on a date, went to a book store, and went out to eat for dinner. Pt stated she was able to keep her anxiety to a manageable level by using her healthy anxiety reducing skills. Pt reported she started to struggle on Tuesday because started to have a flair up with her medical condition. Pt stated since Tuesday her anxiety has been intense. Despite increased anxiety pt able to not progress with being able to leave group when feeling panic symptoms, instead of trying to hide her anxiety. Pt stated she identifies her treatment progress to include stepping outside her comfort zone, improved ability to manage anxiety, and no longer putting off treatment. Pt stated as she continues in treatment she wants to continue to work on her fear ladder, maintain gains, and learn more skills to manage panic attacks in the moment. Risks/Concerns:: Pt denies current suicidal ideation, plan or intention to date. Progress Toward Goals/Plan:: Progress noted with pt using skills outside treatment environment AEB pt working on her fear ladder, able to go inside a store, and improved ability to manage anxiety in the moment. Pt also progressing with increased positive mindset versus looking at the negative of each situation. Pt continues to struggle with using skills to help with panic attacks and engages in compulsions for certain intrusive thoughts. Pt to continue IOP level of care to maintain gains, decrease anxiety, and prevent decompensation. Time Stopped:: 12:55
--- NOTE | 2019-03-30 09:00 | BH.SGPN.GN ---
Behaviors/Verbalizations/Mental Status: [] Eye contact is good. Motor activity is appropriate. Appearance is casual. Speech is Appropriate. Mood is anxious. Affect is congruent. Thoughts are linear and logical. No evidence of psychosis. Reviewed daily check in sheet and no reports of suicidal ideations or intent. Client Response/Progress/Benefit: [] Pt was an active participant in group discussion. Pt was restless and appeared anxious AEB by excessive sweating and red face. Up and out of group often. Shared that she did not sleep last night after taking a 6 hour nap in the afternoon. Notes increased irritability related to starting steroids for medical issue. This has impacted her mental health and led to recent arguments and increase in anxiety. Reports that she is doing well however this in incongruent with her behaviors as she might be minimizing. Benefited from group support and encouragement. Will continue in IOP to prevent decompensation, increase strategies for anxiety, and to improve daily functioning. Narrative Note: []
--- NOTE | 2019-03-30 10:15 | BH.SGPN.GN ---
Behaviors/Verbalizations/Mental Status: []Client alert and oriented, casually dressed and groomed. Eye contact good. Motor activity appropriate. Speech within normal limits. Affect constricted, mood anxious-reporting panic symptoms. Thoughts linear, logical, no signs of hallucinations or delusions. Client Response/Progress/Benefit: []Client was an active participant in group discussions. Attentive and provided insight during processing of quote of the day. Client reported one does not sign up for mental, but people can choose how they respond. Client stated, ?survivors have a choice to survive.? The group and client worked together to identify barriers that keep one from choosing a new and healthier path to mental wellness which included; unhealthy habits, self-doubt, feeling overwhelmed, ruminations, substances, negative thinking, and ?choosing misery.? Attentive during psychoeducation on the chapters of life. Client was engaged in discussion, providing insight to distinguishing factors in each chapter. Reports that group topic reminded client that change is difficulty, but it can be ?very empowering.? Benefited from increased awareness and education on barriers to choosing new wellness paths and chapters of life. Progress noted in client?s improved mood and self-report of engaging in small exposure goals. Will continue IOP to promote gains and improve daily functioning.
--- NOTE | 2019-03-30 11:15 | BH.SGPN.GN ---
Behaviors/Verbalizations/Mental Status: []Client alert and oriented, casually dressed and groomed. Eye contact good. Motor activity appropriate. Speech within normal limits. Affect congruent, mood anxious - verbalized panic like symptoms. Thoughts linear, logical, no signs of hallucinations or delusions. Client Response/Progress/Benefit: []Client was an active participant in group discussion, contributing to discussion and listened attentively to others. Completed worksheet and willing to share with the group. Client reported belief she is in chapter 5? as client shared she chose a new path by choosing to come to IOP. Client shared to get to the next chapter she wants attend a trauma program before the school semester because she wants to stop pushing off getting help. Client identified things she is currently doing that will help her get to the next chapter including using healthy coping skills, dialectical thinking, and consistently attending treatment. Stated she recognizes pushing off treatment, igonring problems, and not consistently applying healthy skills are all barriers that have kept her from progress in the past. Benefited from group by identifying thoughts and behaviors that have kept her stuck and developing plan to promote progress. Will continue in IOP to promote gains, decrease anxiety and prevent decompensation. Narrative Note: []
--- NOTE | 2019-04-02 09:00 | BH.SGPN.GN ---
Behaviors/Verbalizations/Mental Status: [] Eye contact is good. Motor activity is appropriate. Appearance is casual. Speech is Appropriate. Mood is anxious. Affect is congruent. Thoughts are linear and logical. No evidence of psychosis. Reviewed daily check in sheet and no reports of suicidal ideations or intent. Client Response/Progress/Benefit: [] Pt was an active participant in group discussion. Emotion for today is numb. Pt shared that she is continuing to work on her fear ladder in public places and is managing her panic and anxiety more effectively than in the past. Utilizing self-care. Practicing radical acceptance and reports that she is able to recognize and accept her limitations as she missed some obligations this weekend due to medical issues. Rather than feel guilty and ruminate she reports progress in accepting and moving on which has been beneficial to her mental health. She is utilizing skills more consistently while she has been reporting increased stress and irritability related to medical issues. Progress noted per pt report. Benefited from group support, encouragement, and feedback. Will continue in IOP to decrease panic, improve daily functioning, and prevent decompensation. Narrative Note: []
--- NOTE | 2019-04-02 10:10 | BH.SGPN.GN ---
Behaviors/Verbalizations/Mental Status: []Client alert and oriented, casually dressed and groomed. Eye contact good. Motor activity appropriate. Speech within normal limits. Affect congruent, mood anxious. Thoughts linear, logical, no signs of hallucinations or delusions. Client Response/Progress/Benefit: []Pt engaged in session as evidenced by pt providing input throughout session and listening attentively to peers. Pt stated it's important to not let mental illness define her because by letting illness define her it feels like she has given up all power in her life. Pt stated she engages in self-stigma by not reaching out to friends for support because doesn't want others to know she is struggling. Pt stated mental health stigma can keep her stuck from moving forward. Pt worked cooperatively with small group to identify various myths and facts about mental illness. Pt seemed to benefit from increased awareness of impact societal and self-stigma has on progress. Progress noted with improved mindset and application of skills outside treatment environment. Pt to continue IOP level of care to maintain gains, continue use of healthy coping, and prevent decompensation. Narrative Note: []
--- NOTE | 2019-04-02 11:14 | BH.SGPN.GN ---
Behaviors/Verbalizations/Mental Status: []Client alert and oriented, casually dressed and groomed. Eye contact good. Motor activity appropriate. Speech within normal limits. Affect congruent, mood euthymic. Thoughts linear, logical, no signs of hallucinations or delusions. Client Response/Progress/Benefit: []Client responded well to session, active participant and attentive throughout. Group identified the benefits of addressing stigma which included; increased self-confidence, feeling accepted, improved relationships, and less self-deprecation. Client helped the group identify thoughts and behaviors people engage in that reinforce stigma. Client reported she uses self-deprecation and self-labeling which reinforces stigma in her life. Group brainstormed strategies to combat social and perceived stigma which included; talking to supports, practicing positive self-talk, not using labeling language, and providing psychoeducation. Client reported she will practice not using labeling language to combat stigma. Appeared to benefit from increasing awareness of ways he reinforces stigma and how to combat stigma. Will continue IOP tx to promote gains and further decrease avoidance behaviors.
--- NOTE | 2019-04-04 09:05 | BH.SGPN.GN ---
Behaviors/Verbalizations/Mental Status: []Client alert and oriented, neatly dressed and groomed. Eye contact good. Motor activity appropriate. Speech within normal limits. Affect congruent, mood euthymic, anxious. Thoughts linear, logical, no signs of hallucinations or delusions. Reviewed client?s symptom tracker, no risk for suicidal ideation, plan, or intent as of 04/04/19. Client Response/Progress/Benefit: []Client responded well to session, attentive and offering feedback. Client reports feeling ?anxious in a good way? today. Client stated she was able to take her cat to the vet and wait for 30 minutes while she was there. Client shared this was very anxiety provoking for client, but she was able to breathe and use mindfulness to get through it. Client reported ?I?m proud of myself.? Client reported she has also been engaging in self-care by avoiding taking naps and waking up earlier. Client shared this helps her feel like she is missing less which reduces anxiety. Client reported her biggest stressor right now is trying to figure out her plans for grad school. Client shared she will need to take the GRE which requires studying. Client reported she set a deadline for herself which will motivate client. Appeared to benefit from reflecting on her gains and processing her stressors. Will continue IOP tx to promote gains and further improve daily functioning by reducing anxiety.
--- NOTE | 2019-04-04 10:15 | BH.SGPN.GN ---
Behaviors/Verbalizations/Mental Status: []Client alert and oriented, casually dressed and groomed. Eye contact good. Motor activity appropriate. Speech within normal limits. Affect congruent, mood anxious. Thoughts linear, logical, no signs of hallucinations or delusions. Client Response/Progress/Benefit: []Pt engaged in session AEB pt providing input throughout discussion and listened attentively to peers. When processing activity pt connected to life that it can be challenging to see from others perspective when have no frame of reference. Pt gave example it can be challenging for others to understand her anxiety because if haven't experienced anxiety before. Pt engaged in discussion about the impact perspective can have on mental health. Pt stated when in a depressed or anxious state of mind her perspective tends to be more negative which reinforces depression and anxiety symptoms. Pt seemed to benefit from increased awareness of impact perspective has on mental health. Progress noted with pt engaging in session, using skills outside treatment environment to manage anxiety and improved mood. Pt to continue IOP level of care to maintain gains, continue to challenge distorted thought patterns, and prevent decompensation. Narrative Note: []
--- NOTE | 2019-04-04 11:45 | BH.VS.HW ---
Vital Signs - Respirations Respiratory Rate: 16 - Blood Pressure Blood Pressure: 105/72 - sitting - Comments Comment: 96/63 - standing
--- NOTE | 2019-04-04 11:45 | BH.NOTE ---
: Inpatient Note - Notes Behavioral Health Inpatient Note: At the request of staff, this RN took client out of group due to complaints of dizziness and lightheadedness. Bina reports that she was at a doctor's office yesterday for her depo injection and had some hypotension. She also recently was on a taper-dose of oral steroids and has POTS. Her sitting BP was 105/72, standing 96/63. Client notes that she has had several glasses of water this morning and some salty snacks. She denies vision changes, nausea, palpitations, or any other pre-syncopal symptoms. Client is advised to continue her PO intake and to speak to her PCP, or specialist, about taking her atenolol a little later in the day to help decrease morning hypotension. Tyshawn Kim, MSN, RN
--- NOTE | 2019-04-04 12:08 | PCM.BH.PN_ITS ---
Progress Note Progress Note: [] History of Present Illness/Interim History: [Patient is a 28-year-old single female who is participating in the [facility] program for treatment of panic attacks with Agoraphobia, major depressive disorder and OCD.] He states that her anxiety has been improving in the past few weeks. She is functi oning better at home and is actually able to drive easier than she was before. She continues to have a fear of getting panic attacks while driving but has been more successful at attempting to drive. She was on a Medrol Dosepak for 6 days a week ago and this caused some restlessness and increase in panicky feelings. She has been off the steroid for 2 days and states that her panic attacks are m uch less now. 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 She is looking forward to this even though it is a stressful process. Denies any suicidal or homicidal ideation. She denies any thoughts of now. She does continue to have some obsessing but her OCD is fairly well controlled at this point. Current Psychiatric Medications: [Luvox 200 mg p.o. daily, Prozac 10 mg p.o. daily, Vistaril.] Review of Symptoms: [] Negative except as noted above Mental Status Examination: [] She is a 28-year-old female who is obese but casually dressed and groomed with good hygiene. She has no psychomotor agitation or retardation. She has good eye contact and her speech is normal rate and rhythm with no pressure. Mood is depressed but less than before. Affect is brighter but still somewhat constricted. Thought process is organized and goal-directed. Thought content: No evidence of suicidal or homicidal ideation. No thoughts of . No evidence of hallucinations or delusions. Reality testing is intact. Intelligence is above average. Judgment is intact. Insight some present. 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 The risks options and possible complications of her psych meds were discussed with the patient and she understands and accepts these. Serotonin syndrome in particular was discussed as she agreed to increase her Prozac to 20 mg p.o. daily. She has been on the Luvox for 2 years and it is possible that it is not working as well as it did in the past. Should the patient get side effects of serotonin excess I would strongly consider decreasing the Luvox and increasing the Prozac. If the patient does not feel safe at any time she will tell us at the IOP or go to the emergency room. She will continue to follow-up with her outpatient psychiatric and medical providers as scheduled.
[2019-04-04 13:24] VITALS: BP 105/72; RESP 16
--- NOTE | 2019-04-04 16:25 | BH.MDN_ITS ---
Multi-Disciplinary Note - Note 45-min Individual Time Started:: 12:15 Date: 04/04/19 Purpose of session/treatment goals addressed:: Purpose of session was to assess pt's current symptoms and stressors. Other topics included: reviewing treatment progress and discussing tentative discharge from IOP. Eye Contact:: Good Motor Activity:: Restless Appearance:: Casual Speech:: Appropriate Mood:: Euthymic, Anxious Affect:: Congruent Thoughts:: Linear, Logical, No evidence of hallucinations/delusions noted Staff Interventions:: Therapist used open ended questions to elicit pt's current symptoms and stressors. Therapist elicited pt's thoughts about treatment progress. Discussed tentative discharge from IOP. Provided support by using active listening and validating emotions. Client Response:: Pt reported she has been doing really well with sitting with the uncomfortable emotions. Pt stated she has been continuing to work on her fear ladder of driving and going into public places. Pt reported she was able to successfully take her cat to the vet. Pt stated in the past she would have likely not taken her cat due to her anxiety being debilitating. Pt reported she is feeling more confident in her ability to manae her intrusive anxious thoughts. Pt shared she still has intrusive thoughts, but is better at not seeking reassurance or engaging in a behavior that makes her anxiety go away. Pt reported she is feeling ready for discharge from [facility]. Agreeable for discharge to be next week. Will continue to work on her fear ladder. Risks/Concerns:: Denies current suicidal ideation, plan or intention to date. future focused. Progress Toward Goals/Plan:: Progress noted with pt reporting increased use of healthy coping, using mindfulness to manage anxious thoughts in the moment, and working on her fear ladder. Pt continuing to make consistent progress with decreased anxiety, increased use of healthy coping, and improved functioning. Plan is for pt to discharge from [facility] next week. Time Stopped:: 13:00
--- NOTE | 2019-04-05 09:00 | BH.SGPN.GN ---
Behaviors/Verbalizations/Mental Status: [] Eye contact is good. Motor activity is appropriate. Appearance is casual. Speech is Appropriate. Mood is anxious. Affect is congruent. Thoughts are linear and logical. No evidence of psychosis. Reviewed daily check in sheet and no reports of suicidal ideations or intent. Client Response/Progress/Benefit: [] Pt was an active participant in group discussion. Emotion for today is tired and exhausted. Talked at length regarding her recent stressors and while it has been challenging she has been consistently practicing acceptance of herself, her thoughts, and her emotions. She sees the power of this thinking and how it has had positive benefits towards her anxiety and MH symptoms. Admits struggles of recent with managing her anger and anxiety however continues to try to use skills on consistent basis. Progress noted per pt report. Benefited from group support, encouragement, and feedback. Will continue in IOP to prevent decompensation, maintain safety, and improve daily functioning. Narrative Note: []
--- NOTE | 2019-04-05 10:08 | BH.SGPN.GN ---
Behaviors/Verbalizations/Mental Status: []Client alert and oriented, neatly dressed and groomed. Eye contact good. Motor activity appropriate. Speech within normal limits. Affect full, mood euthymic. Thoughts linear, logical, no signs of hallucinations or delusions. Client Response/Progress/Benefit: []Client responded well to session, attentive and participating in discussion. Client commented on quote and shared things in life can keep us feeling trapped, ?but we decide how high the wall is.? Participated in discussion of things that can keep people feeling trapped or stuck in life including; isolation, lack of trust, substance use, focusing on negatives, denial, and lack of self-worth. Group discussed the connection between thoughts, emotions, and behaviors as well as how negative thinking can keep a person stuck. Client attentive during psychoeducation on maintenance cycles. Client able to identify negative thoughts that have reinforced depression and kept client feeling trapped. Client shared her negative thought which was ?I?m not smart enough? and client reported this thought has prevented client from working towards her academic goals. Appeared to benefit from gaining awareness of how negative thoughts reinforce mental health symptoms and keep people stuck. Progress noted in client?s report of overall improved mood and less anxiety. Will continue IOP to promote gains and further reduce symptoms.
--- NOTE | 2019-04-05 11:10 | BH.SGPN.GN ---
Behaviors/Verbalizations/Mental Status: []Client alert and oriented, casually dressed and groomed. Eye contact good. Motor activity restless. Speech within normal limits. Affect congruent, mood anxious. Thoughts linear, logical, no signs of hallucinations or delusions. Client Response/Progress/Benefit: []Client responded well to session, contributing to discussion and listening attentively to others. Client appeared to connect with maintenance cycles and recognized how negative thinking can keep a person stuck. Client identified a negative thought that has kept her stuck. Client?s thought was ?I'm not smart enough.? Client able to connect how this thought maintains depressive cycle. Client able to reframe the thought to ?I have been successful in school before and I know I am a smart, intelligent person.? Client shared this thought would improve her mental health because it would make her feel more confident in her abilities. Client appeared to benefit from practicing challenging negative thinking. Client to continue IOP to prevent decompensation. Narrative Note: []
--- NOTE | 2019-04-09 10:10 | BH.SGPN.GN ---
Behaviors/Verbalizations/Mental Status: []Client alert and oriented, casually dressed and groomed. Eye contact good. Motor activity appropriate. Speech within normal limits. Affect congruent, mood euthymic and positive. Thoughts linear, logical, no signs of hallucinations or delusions. Client Response/Progress/Benefit: []Pt was an active participant as evidenced by pt providing input through session and listening attentively to peers. Pt worked with the group to define anger and its causes, as well as the internal and external impacts of anger. Group identified potential consequences of unhealthy anger include: losing relationships, guilt, increased stress, resentment, lose job, depression and anxiety. Pt identified underlying factors of her anger include:anxiety, stress, impatience, hungry, lonely, tired, and someone else being angry. Pt stated crying, yelling, shutting down, and running away from the issue are ways she reacts to anger. Benefited from group by increasing awareness of the negative impacts of unhealthy anger and underlying factors that contribute to her personal anger. Pt has made significant progress since starting IOP and the plan is for pt to discharge today. Narrative Note: []
--- NOTE | 2019-04-09 11:07 | BH.SGPN.GN ---
Behaviors/Verbalizations/Mental Status: [Eye contact is good. Motor activity appropriate. Appearance is causal, grooming attended to. Speech is appropriate rate and tone. Mood is euthymic, positive. Affect is congruent to mood. Thoughts are linear and logical. No evidence of psychosis. ] Client Response/Progress/Benefit: [Pt remained an active participant throughout, AEB engagement in both activity and discussion potions of session. Pt did well to participate in the group activity and incorporate anger management/emotion regulation skills in order to do so. Worked with the group to process and identify the various barriers faced in the activity and skills used to successfully complete the task at hand without becoming dysregulated or angry. Pt identified barriers impacting own ability to better manage anger related symptoms in daily life which included: feeling anxious/out of control, shutting down and difficulties communicating when upset. Pt appeared to benefit from discussion regarding potential benefits of anger and brainstorming with the group potential strategies for emotional release or harnessing anger in healthy ways. Pt identified plans to begin more consistently applying meditation and grounding techniques to improve coping with anger related sx. Recommended continued IOP txt to reduce mental health sx, continue to promote skill application, and prevent decompensation.] Narrative Note: []
--- NOTE | 2019-04-09 11:50 | BH.AFTERPLAN ---
Aftercare Plan - Demographics Treatment End Date:: 04/09/19 Psychiatrist:: Shannan Gray Psychiatrist Office #:: [phone] [employer] [facility] Therapist:: Patsy Cano Therapist Phone #:: [phone] - Medications Home Medications: Home Medications Atenolol [Tenormin] 25 mg DAILY 01/18/16 Anakinra [Kineret] 100 mg SQ DAILY 03/02/19 Colchicine [Mitigare] 0.6 mg PO DAILY 03/02/19 Fluoxetine [Prozac] 20 mg PO DAILY 03/02/19 Fluvoxamine Maleate [Luvox] 200 mg PO DAILY 03/02/19 Hydroxychloroquine [Plaquenil] 400 mg PO DAILY 03/02/19 Hydroxyzine Pamoate [Vistaril] 25 - 50 mg PO TID PRN 03/02/19 MedroxyPROGESTERone [Depo-Provera] 150 mg IM .[id number] 03/02/19 Meloxicam [Mobic] 15 mg PO DAILY 03/02/19 Propranolol HCl [Inderal] 10 mg PO DAILY PRN 03/02/19 - Plan Details Progress/Aftercare Plan Details:: - Able to work through fear ladders by using acceptance and acknowledgement skills. - Increased hopefulness. - Feeling increased motivation to face problems instead of avoidance. - Able to ?ride the anxiety? on a more frequent basis instead of using false comfort or avoidance. - Overall reporting improved mood. - Able to recognize own positives. - Increased self-confidence that pt can overcome anxieties. Strategies for Success:: 1.Acceptance, Acknowledgement and Dismissing the intrusive thoughts. 2.Manage stress level by recognizing when getting stressed and doing something about it versus ignoring stress level. 3.Celebrate accomplishments ? including the steps it takes to get there! 4.Continue to work on fear ladders ? remember it?s okay to take small steps. 5.Dialectical Thinking. 6.Continue therapy consistently and taking medications. 7.Attend [facility] program ? don?t push it off. There will never be a right time to do a difficult thing. 8. Recognize warning signs and do something about them. 9. Avoidance DOES NOT work. 10. Remember to ask yourself what is the intention behind your actions ? is it due to medical problem or is it for comfort. - Appointments Appointments/Referrals to Other Services:: 1. Brittney Constantino on 04/11/19 at 8am for medication management. 2. Nadine perez [facility] for counseling on 04/11/19.
--- NOTE | 2019-04-09 13:26 | BH.MDN ---
Multi-Disciplinary Note - Note 30-min Individual Time Started:: 09:02 Date: 04/09/19 Purpose of session/treatment goals addressed:: Purpose of session was to assess pt's current symptoms and stressors. Other topics included: reflecting on treatment progress since starting IOP, identifying strategies to maintain progress, and solidfying aftercare. Eye Contact:: Good Motor Activity:: Appropriate Appearance:: Casual Speech:: Appropriate Mood:: Euthymic Affect:: Full, Bright Thoughts:: Linear, Logical, No evidence of hallucinations/delusions noted Staff Interventions:: Therapist used open ended questions to elicit pt's current symptoms and stressors. Elicited pt's thoughts about treatment progress since starting IOP. Collaborated with pt to identify strategies to help her maintain progress. Solidified aftercare plans post discharge from IOP. Client Response:: Pt reported she has made significant treatment progress since starting IOP. Pt shared she is able to drive her car to more places and longer distances then she has been able to do for a long time. Pt shared she has increased understanding of intrusive thoughts, which increased ability to manage intrusive thoughts. Pt stated additional progress to include using healthy coping skills, reframing negative thoughts, and decreased use of anxiety safety behaviors. Pt reported strateiges to help her maintain progress include: remembering a thought is a thought not a fact, using self-care skills daily, reframing negative thoughts, sitting with uncomfortable emtions, being social, recognizing warning signs of personal struggle, and asking for help when needed. Pt stated plan for aftercare is to follow up with already established outpatient therapist. Risks/Concerns:: denies current suicidal ideaton, plan or intention to date. Progress Toward Goals/Plan:: Progress noted with decreased anxiety, decreased depression, increased use of healthy coping, able to drive her car longer distances, sitting with uncomfortable emotions, and challenging negative thoughts. Pt has made significant treatment progress and plan is to dishcarge from IOP today. Time Stopped:: 09:30
== END 2019-04-09 14:00 | disposition home or self-care (01) ==
LOC: BHIOP 09:00
PROVIDERS: Family Provider Internal Medicine; PCP Internal Medicine; Referring Provider Psychiatry & Neurology Psychiatry; Visit Provider Psychiatry & Neurology Psychiatry
DX: F40.01 Agoraphobia with panic disorder (principal); F33.1 Major depressive disorder, recurrent, moderate; F42.9 Obsessive-compulsive disorder, unspecified; F43.10 Post-traumatic stress disorder, unspecified; F50.2 Bulimia nervosa; A18.01 Tuberculosis of spine; M04.1 Periodic fever syndromes
CPT/HCPCS: 99214; H0035; H2012; H2020; T1002; 90832; 90834

== ENCOUNTER 2021-08-06 03:15 | Emergency (ER) | payer MEDICAID, SELFPAY ==
[2021-08-06 03:16] VITALS: BP 146/87; PULSE 146; RESP 20; TEMP 37; O2SAT 96; BMI 52.2
--- NOTE | 2021-08-06 03:46 | EKG12_ITS ---
Test Reason : GENERAL ILLNESS Blood Pressure : / mmHG Vent. Rate : 119 BPM Atrial Rate : 119 BPM P-R Int : 146 ms QRS Dur : 064 ms QT Int : 326 ms P-R-T Axes : 038 045 020 degrees QTc Int : 458 ms Sinus tachycardia Otherwise normal ECG Confirmed by BRIELLE PEÑA, MYRIAM ([id number]), assistant film editor IRENE HERRERA ([id number]) on 08/10/2021 10:17:42 AM Referred By: FLORENTINO Confirmed By:MYRIAM HANNAH MD
[2021-08-06 03:57] LABS: Absolute Neutrophil Count 6.8 X10^3/uL (2.0-7.7); Basophil# 0.03 X10^3/uL; Basophil% 0.4 % (0-1); Eosinophil# 0.04 X10^3/uL; Eosinophils% 0.5 % (0-5); Hemoglobin 13.1 g/dL (12.0-15.0); Lymphocyte % 7.4 % (19-41); Mean Corp Hgb Conc 32.8 g/dL (32-36); Mean Corpuscular Volume 94.8 fL (81-99); Mean Platelet Vol. 9.5 fl (6.2-12.0); Monocyte# 0.65 X10^3/uL; NRBC Flagged by Analyzer 0 % (0-5); Neutrophil # 6.79 X10^3/uL (2.7-7.7); Neutrophil % 83.2 % (47-70); POSITIVE DIFFERENTIAL YES; Platelet Count 366 K/mm3 (150-450); RBC Distribution Width CV 12.2 % (11.6-14.6); RBC Distribution Width SD 42.7 fl (35.1-43.9); Red Blood Count 4.22 M/mm3 (4.2-5.4); White Blood Count 8.2 K/mm3 (4.4-11.0)
[2021-08-06 04:01] LABS: Differential Indicated SCAN CRITERIA MET
--- NOTE | 2021-08-06 04:06 | EX.ED.DYSGE1 ---
HPI History of Present Illness Chief Complaint: General Illness Detail of Chief Complaint: Shortness of breath Informant: patient Narrative Narrative: Patient presents with shortness of breath that she woke up with this evening. Patient states she had a recent Covid exposure. She complains of cough and an elevated heart rate. She complains of fever up to 101 at home. She complains of some mild body aches and headache with cough. Patient denies recent travel or surgery. She does have history of pots. Patient did have the Covid vaccine and booster. [facility] Medical History (Updated 08/06/21 @ 04:[address] Ruby Stapleton, ) DARLIN (generalized anxiety disorder) Morbid (severe) obesity due to excess calories Panic disorder with agoraphobia and moderate panic attacks Periodic fever syndrome POTS (postural orthostatic tachycardia syndrome) Home Medications atenolol [Tenormin] 25 mg DAILY 01/18/16 [History Last Taken Unknown] anakinra 100 mg SQ DAILY 03/02/19 [History Last Taken Unknown] colchicine 0.6 mg PO DAILY 03/02/19 [History Last Taken Unknown] fluoxetine 20 mg PO DAILY 03/02/19 [History Last Taken Unknown] fluvoxamine 200 mg PO DAILY 03/02/19 [History Last Taken Unknown] hydroxychloroquine 400 mg PO DAILY 03/02/19 [History Last Taken Unknown] hydroxyzine pamoate 25 - 50 mg PO TID PRN 03/02/19 [History Last Taken Unknown] medroxyprogesterone 150 mg IM .[id number] 03/02/19 [History Last Taken Unknown] meloxicam 15 mg PO DAILY 03/02/19 [History Last Taken Unknown] propranolol 10 mg PO DAILY PRN 03/02/19 [History Last Taken Unknown] Allergy/AdvReac Type Severity Reaction Status Date / Time latex Allergy Hives Verified 08/06/21 03:18 topiramate [From Topamax] AdvReac Other Verified 08/06/21 03:18 Social History Smoking Status: Never smoker ROS ROS ED Constitutional Constitutional ED: Reports systems reviewed and no addt'l complaints, except as documented and fever(s); Denies body ache(s), change in weight or chills Eyes Eyes: Denies acute decrease in peripheral vision, change in vision, double vision or loss of vision ENT ENT ED: Reports none; Denies ear pain, lip swelling, loss taste/smell, neck pain, otalgia or sore throat Cardiovascular Cardiovascular: Reports none; Denies abdominal pain, chest pain with activity, leg edema, lightheadedness, palpitations, rapid heart rate or syncope Respiratory/Chest Respiratory/Chest: Reports none, cough and dyspnea; Denies change in mental status, dry cough, hemoptysis, shortness of breath at rest or shortness of breath with exertion Gastrointestinal Gastrointestinal: Reports none; Denies abdominal pain, change in stool character, diarrhea, hematemesis, hematochezia, melena, rectal bleeding or vomiting Genitourinary Genitourinary ED: Reports none; Denies abdominal discomfort, anuria, dysuria, genital pain or polyuria Musculoskeletal Musculoskeletal: Reports none; Denies arthralgias, back pain, difficulty walking, extremity pain, muscle weakness or myalgias Integumentary Reports none; Denies abscess or rash Neurologic Neurologic: Reports none; Denies abnormal gait, confusion, focal weakness, frequent falls, headache(s), loss of vision, numbness, paresthesias, radicular pain, vertigo or weakness Psychiatric Psychiatric: Reports systems reviewed and no addt'l complaints, except as documented and none; Denies behavioral changes, confusion, difficulty concentrating, hallucinations, suicidal ideation, tactile hallucinations or visual hallucinations Endocrine Endocrinology: Denies none, cold intolerance, excessive sweating, fatigue or heat intolerance Hematologic/Lymphatic Hematologic/Lymphatic: Reports none; Denies anemia, easy bleeding or easy bruising Allergic/Immunologic Allergic/Immunologic ED: Denies as per HPI, none, lip swelling, mouth swelling, throat swelling, tongue swelling or hives EXAM Physical Exam Const Vital Signs: 08/06/21 03:16 08/06/21 03:18 Temperature 98.6 F Temperature Source Oral Pulse Rate 146 H Respiratory Rate 20 H Respiratory Effort Short of Breath Respiratory Pattern Tachypnea Blood Pressure 146/87 H Blood Pressure Mean 106 Pulse Ox 96 Oxygen Delivery Method Room Air Positive well nourished and well developed General Appearance ED: well developed and NAD HEENT Reports TM's clear and moist mucous membranes normocephalic and atraumatic; Negative for trauma or tenderness Tympanic Membrane ED: Yes TM's clear Eyes PERRL and EOMs intact bilaterally General Eye ED: Negative for pale conjunctiva or scleral icterus Neck no lymphadenopathy, supple and no JVD General: Negative for tenderness Chest Wall inspection of chest normal and palpation of chest normal Chest: Negative for tenderness Resp normal respiratory effort and clear to auscultation bilaterally Effort and Inspection: Negative for respiratory distress or pain with movement Auscultation: Negative for rhonchi, wheezes or diminished lung sounds Cardio regular rhythm, S1 normal heart sound, S2 normal heart sound and no murmurs Rate: tachycardic Peripheral Pulses: pulses 2+ throughout GI normal to inspection, nondistended, normoactive bowel sounds, soft to palpation, non-tender, non-distended and no masses Back/Spine no CVA tenderness and no thoracic nor lumbar tenderness Extremity normal to inspection General Extremety ED: Negative for edema General Extremity: Negative for edema Neuro oriented x3, CN's II-XII intact bilaterally, no sensory deficits noted and gait normal Sensorium / Orientation: awake, alert, oriented to person, oriented to place and oriented to time Motor Exam: strength 5/5 throughout and strength abnormal Psych mental status grossly normal Skin no rashes or lesions noted and no wounds MDM MDM MDM Narrative Medical decision making narrative: IV line established on arrival. Patient patient placed on a cardiac rehabilitation program director. Lab work-up was unremarkable. COVID-19 test was negative. I will give patient 1 dose of Decadron and advised that she follow-up with her primary care physician 3 to 5 days. Patient to return if increasing shortness of breath or condition should worsen anyway. Lab Data Attestation: I reviewed the patient's lab results. Labs: Laboratory Results - last 24 hr 08/06/21 08/06/21 08/06/21 03:32 03:32 03:32 WBC 8.2 RBC 4.22 Hgb 13.1 Hct 40.0 MCV 94.8 MCH 31.0 MCHC 32.8 RDW Std Deviation 42.7 RDW Coeff of Derrell 12.2 Plt Count 366 MPV 9.5 Immature Gran % (Auto) 0.500 Neut % (Auto) 83.2 H Lymph % (Auto) 7.4 L [place] % (Auto) 8.0 Eos % (Auto) 0.5 Baso % (Auto) 0.4 Absolute Neuts (auto) 6.8 Absolute Lymphs (auto) 0.60 L Nucleated RBC % 0 Differential Comment SCANNED D-Dimer Quant (PE/DVT) 0.32 Sodium 140 Potassium 3.6 Chloride 110 H Carbon Dioxide 18.0 L Anion Gap 12 BUN 7 Creatinine 0.78 Estim Creat Clear Calc 77.13 Est GFR (MDRD) Af Amer 113 Est GFR (MDRD) Non-Af 93 BUN/Creatinine Ratio 9.0 L Glucose 102 Calcium 8.8 Radiography Chest X-Ray - ED: 1 View Diagnostic Testing: Clinical Impression(s) from Imaging Studies Chest X-Ray 08/06/21 04:08 IMPRESSION: Normal x-ray examination of the chest. Electronically Signed: Duy DO Samira at 4:46 EST Tel , Service support , 1 view chest x-ray obtained interpreted by myself as no acute disease process. Radiology in agreement. EKG Initial EKG: Attestation: I personally reviewed and interpreted this EKG as follows: Comments: Sinus rhythm with a ventricular rate of 119 bpm with no acute ST segment changes. Discharge Plan Triage Chief Complaint: General Illness ED Provider: Ruby Stapleton Dx/Rx/DC Orders Clinical Impression: Viral URI Instructions: ED URI, Viral, No Abx (Adult) Prescriptions: No Action atenolol [Tenormin] 25 MG tablet 25 mg DAILY RF: 0 fluvoxamine 100 MG tablet 200 mg PO DAILY RF: 0 fluoxetine 10 MG capsule 20 mg PO DAILY RF: 0 meloxicam 15 MG tablet 15 mg PO DAILY RF: 0 hydroxyzine pamoate 50 MG capsule 25 - 50 mg PO TID PRN (Reason: Anxiety/Restlessness/Sleep) RF: 0 propranolol 10 MG tablet 10 mg PO DAILY PRN (Reason: Dizziness) RF: 0 hydroxychloroquine 200 MG tablet 400 mg PO DAILY RF: 0 anakinra 100 MG/0.67 ML syringe 100 mg SQ DAILY RF: 0 medroxyprogesterone 150 MG/ML syringe 150 mg IM .[id number] RF: 0 colchicine 0.6 MG capsule 0.6 mg PO DAILY RF: 0 Primary Care Provider: Katie Fernández Referrals: Katie Fernández MD [Primary Care Provider] - 3-5 Days Disposition Disposition: Home, Self Care
--- NOTE | 2021-08-06 04:08 | RAD_ITS ---
STUDY: X-RAY CHEST REASON FOR EXAM: Female, 30 years old. cough TECHNIQUE: Single AP portable view of the chest. COMPARISON: 11/13/2014 FINDINGS: The lungs are clear and expanded. There is no demonstrated pleural abnormality. Normal size heart. Normal mediastinum and lo. Normal visualized pulmonary arteries. Normal visualized aortic arch and descending thoracic aorta. Normal visualized thoracic spine. Normal visualized ribs, clavicles, and shoulders. There is no demonstrated abnormality of the visualized soft tissue structures of the upper abdomen. RAD/Chest 1 View (Portable) IMPRESSION: Normal x-ray examination of the chest. Electronically Signed: Duy Hogan DO at 4:46 EST Tel , Service support ,
[2021-08-06 04:13] LABS: Anion Gap 12 (5-15); BUN 7 mg/dL (7-18); Calcium,Total 8.8 mg/dL (8.5-10.1); Chloride 110 mmol/L (98-107); Creatinine, Serum 0.78 mg/dL (0.55-1.02); EST Glomerular Filtration Rate 93 mL/min (>60); Est Glom Filt Rate - Afr Amer 113 mL/min (>60); Estimated Creatinine Clearance 77.13 ml/min; Glucose 102 mg/dL (74-106); Potassium 3.6 mmol/L (3.5-5.1); Sodium Level 140 mmol/L (136-145)
[2021-08-06 04:15] LABS: D-Dimer Quantitative (DVT/PE) 0.32 FEU/ug/m (0.27-0.49)
[2021-08-06] MEDS: 0.9% Normal Saline 1,000 ML 150 ML IV (04:17)
[2021-08-06 04:32] LABS: Differential Comment SCANNED
[2021-08-06 05:16] VITALS: BP 134/78; PULSE 104; RESP 18; O2SAT 100
[2021-08-06] MEDS: dexAMETHasone 4 MG Tablet 10 MG PO (05:18)
== END 2021-08-06 05:23 | disposition home or self-care (01) ==
PROVIDERS: Emergency Provider Emergency Medicine; PCP Internal Medicine
DX: J06.9 Acute upper respiratory infection, unspecified (principal); I49.8 Other specified cardiac arrhythmias; F41.1 Generalized anxiety disorder; E66.01 Morbid (severe) obesity due to excess calories; Z68.43 Body mass index [BMI] 50.0-59.9, adult; Z79.899 Other long term (current) drug therapy
CPT/HCPCS: 71045; 80048; 85025; 85379; 87426; 93005; 96360; 99285; J7030; A4216

== ENCOUNTER 2024-06-07 01:46 | Emergency (ER) | payer MEDICAID, SELFPAY ==
[2024-06-07 01:46] VITALS: BP 156/108; PULSE 134; RESP 18; TEMP 37.4; O2SAT 97; BMI 53.8
[2024-06-07 01:58] VITALS: O2SAT 97
--- NOTE | 2024-06-07 01:58 | EKG12_ITS ---
Test Reason : CP Blood Pressure : / mmHG Vent. Rate : 127 BPM Atrial Rate : 127 BPM P-R Int : 144 ms QRS Dur : 070 ms QT Int : 294 ms P-R-T Axes : 043 032 012 degrees QTc Int : 427 ms Sinus tachycardia with frequent Premature ventricular complexes Nonspecific T wave abnormality Abnormal ECG Confirmed by JOVITA PEÑA, SOPHIE ([id number]), technical editor IRENE HERRERA ([id number]) on 06/07/2024 9:28:37 AM Referred By: EM Confirmed By:SOPHIE HUSSEIN MD
--- NOTE | 2024-06-07 01:59 | ED.VIS.CHEST ---
HPI History of Present Illness Chief Complaint: Chest Pain Narrative Narrative: 33-year-old female past medical history of stills disease, possibly has POTS but has history of tachycardia presents with chest pain that began at 1130 yesterday evening, around 2-1/2 hours ago when she was walking her dog. It was only a 10-minute walk. She thought maybe that since she has been having fevers and flareup of her stills disease over the last week or so that it was chest pain from that. However, seem to be getting worse. Was on the left side of her chest. She states her shoulder felt numb and tingling. She states the pain is sharp and stabbing, and mildly pleuritic as well. She denies any increased swelling of her legs. No other exacerbating or alleviating factors. [facility] Medical History Morbid (severe) obesity due to excess calories Panic disorder with agoraphobia and moderate panic attacks DARLIN (generalized anxiety disorder) Periodic fever syndrome POTS (postural orthostatic tachycardia syndrome) Home Medications ?Medication ?Instructions ?Recorded ?Last Taken ?Type atenolol 25 mg tablet (Tenormin) 25 mg DAILY 01/18/16 Unknown History anakinra 100 mg/0.67 mL 100 mg SQ DAILY 03/02/19 Unknown History subcutaneous syringe colchicine 0.6 mg capsule 0.6 mg PO DAILY 03/02/19 Unknown History fluoxetine 10 mg capsule 20 mg PO DAILY 03/02/19 Unknown History fluvoxamine 100 mg tablet 200 mg PO DAILY 03/02/19 Unknown History hydroxychloroquine 200 mg tablet 400 mg PO DAILY 03/02/19 Unknown History hydroxyzine pamoate 50 mg capsule 25 - 50 mg PO TID PRN 03/02/19 Unknown History Anxiety/Restlessness/Sleep medroxyprogesterone 150 mg/mL 150 mg IM .[id number] 03/02/19 Unknown History intramuscular syringe meloxicam 15 mg tablet 15 mg PO DAILY 03/02/19 Unknown History propranolol 10 mg tablet 10 mg PO DAILY PRN Dizziness 03/02/19 Unknown History canakinumab (PF) 150 mg/mL subcut 06/07/24 Unknown History subcutaneous solution (Ilaris (PF)) Allergy/AdvReac Type Severity Reaction Status Date / Time latex Allergy Hives Verified 06/07/24 01:49 topiramate (From Topamax) AdvReac Other Verified 06/07/24 01:49 Family History Other Lupus Social History Smoking Status: Never smoker ROS ROS ED ROS Narrative Constitutional: Positive fever with history of periodic fevers, no chills. HEENT: No sore throat. No neck pain. No loss of vision. No rhinorrhea. Cardiovascular: Left-sided chest pain. Possibly pleuritic. No palpitations. No pedal edema. Respiratory: No cough, no shortness of breath. Abdominal: No abdominal pain. Positive nausea. No vomiting. Genitourinary: No dysuria. No hematuria. Musculoskeletal: No myalgias. No arthralgias. Neurologic: No headaches. No dizziness. No lightheadedness. Skin: No rash. No change in color. Psychiatric: No depression. No anxiety. EXAM Physical Exam Narrative Exam Narrative: Afebrile. Vital signs noted. Positive tachycardia, regular. Lungs clear to auscultation bilaterally. Abdomen soft nontender with normal active bowel sounds. No noted pedal edema, pitting. Neurological examination shows her to be awake, and alert, moves all extremities. Const Vital Signs: 06/07/24 01:46 06/07/24 01:58 06/07/24 02:46 Temperature 99.3 F H Temperature Source Oral Pulse Rate 134 H 92 Respiratory Rate 18 18 Blood Pressure 156/108 H 166/98 H Blood Pressure Mean 124 120 Pulse Ox 97 97 98 Oxygen Delivery Method Room Air Room Air Room Air 06/07/24 03:00 06/07/24 04:00 Temperature Temperature Source Pulse Rate 84 78 Respiratory Rate 17 13 Blood Pressure 159/100 H 133/93 H Blood Pressure Mean 119 106 Pulse Ox 98 94 Oxygen Delivery Method Room Air Room Air MDM MDM MDM Narrative Medical decision making narrative: Differential diagnosis includes but not limited to acute coronary syndrome versus pulmonary embolism versus POTS versus stills disease flare. Comprehensive workup was pursued. EKG was obtained and interpreted by myself independently as sinus tachycardia at 127 bpm with PVCs but no acute ST changes. No STEMI. Chest x-ray in 1 view interpreted by myself independently shows no evidence of pneumothorax or pneumonia, no acute process. I reviewed the radiology report which confirms my independent interpretation. I reviewed her laboratory work and she has normal white count of 9.2, hemoglobin normal at 12.8 with hematocrit 37.7, platelet count normal at 411. D-dimer is normal at 0.33. When compared to previous laboratories, they have all been negative in the past. BMP is grossly unremarkable except for chloride 111 which I think is nonspecific. Glucose is also slightly elevated at 111 with a normal anion gap. Initial high-sensitivity troponin is 4. Upon repeat examination after IV fluid bolus, her pulse is now 78 bpm. As long as her second troponin is negative, I do feel that she could be discharged to follow-up with her primary care provider. Her second troponin has returned, and it is also normal at 4. This is negative delta troponin. At this point in time, I feel she can be discharged safely home with follow-up to her primary care provider. Return instructions reviewed. Disposition is discharged home in stable condition. History & Record Review Discussion w/independent historian: Patient Additional record(s) reviewed:: Prior labs Lab Data Attestation: I reviewed the patient's lab results. Labs: Laboratory Results - last 24 hr 06/07/24 06/07/24 06/07/24 01:58 01:58 02:15 WBC Cancelled 9.2 Corrected WBC Cancelled RBC Cancelled 4.10 L Hgb Cancelled 12.8 Hct Cancelled 37.7 MCV Cancelled 92.0 MCH Cancelled 31.2 MCHC Cancelled 34.0 RDW Std Deviation Cancelled 40.7 RDW Coeff of Derrell Cancelled 12.2 Plt Count Cancelled 411 MPV Cancelled 9.4 Immature Gran % (Auto) Cancelled 0.500 Neut % (Auto) Cancelled 68.3 Lymph % (Auto) Cancelled 22.0 [place] % (Auto) Cancelled 8.5 Eos % (Auto) Cancelled 0.3 Baso % (Auto) Cancelled 0.4 Absolute Neuts (auto) Cancelled 6.3 Absolute Lymphs (auto) Cancelled 2.03 Total Counted Cancelled Neutrophils % (Manual) Cancelled Band Neutrophils % Cancelled Lymphocytes % (Manual) Cancelled Monocytes % (Manual) Cancelled Eosinophils % (Manual) Cancelled Basophils % (Manual) Cancelled Metamyelocytes % Cancelled Myelocytes % Cancelled Promyelocytes % Cancelled Blast Cells % Cancelled Plasma Cell % (Manual) Cancelled Other Cells % Cancelled Nucleated RBC % Cancelled 0 Nucleated RBCs/100 WBC Cancelled Differential Comment Cancelled Diff Path Review Cancelled Hypersegmented Neuts Cancelled Atypical Lymphocytes Cancelled Reactive Lymphocytes Cancelled Smudge Cells Cancelled Toxic Granulation Cancelled Toxic Vacuolation Cancelled Dohle Bodies Cancelled Alyson Rods Cancelled Platelet Estimate Cancelled Plt Morphology Comment Cancelled RBC Morphology Cancelled Cancelled Polychromasia Cancelled Hypochromasia Cancelled Basophilic Stippling Cancelled Anisocytosis Cancelled Microcytosis Cancelled Macrocytosis Cancelled Spherocytes Cancelled Sickle Cells Cancelled Target Cells Cancelled Tear Drop Cells Cancelled Ovalocytes Cancelled Stomatocytes Cancelled Carrlilo-Malden Bodies Cancelled [place] Cells Cancelled Bite Cells Cancelled Crenated Cell Cancelled Acanthocytes (Spur) Cancelled Rouleaux Cancelled Schistocytes Cancelled D-Dimer Quant (PE/DVT) 0.33 Sodium 139 Potassium 4.4 Chloride 111 H Carbon Dioxide 22.0 Anion Gap 6 BUN 7 Creatinine 0.61 Estim Creat Clear Calc 163.15 Est GFR (MDRD) Af Amer 147 Est GFR (MDRD) Non-Af 122 BUN/Creatinine Ratio 11.5 Glucose 111 H Calcium 9.2 Troponin I High Sens 4 06/07/24 04:12 WBC Corrected WBC RBC Hgb Hct MCV MCH MCHC RDW Std Deviation RDW Coeff of Derrell Plt Count MPV Immature Gran % (Auto) Neut % (Auto) Lymph % (Auto) [place] % (Auto) Eos % (Auto) Baso % (Auto) Absolute Neuts (auto) Absolute Lymphs (auto) Total Counted Neutrophils % (Manual) Band Neutrophils % Lymphocytes % (Manual) Monocytes % (Manual) Eosinophils % (Manual) Basophils % (Manual) Metamyelocytes % Myelocytes % Promyelocytes % Blast Cells % Plasma Cell % (Manual) Other Cells % Nucleated RBC % Nucleated RBCs/100 WBC Differential Comment Diff Path Review Hypersegmented Neuts Atypical Lymphocytes Reactive Lymphocytes Smudge Cells Toxic Granulation Toxic Vacuolation Dohle Bodies Alyson Rods Platelet Estimate Plt Morphology Comment RBC Morphology Polychromasia Hypochromasia Basophilic Stippling Anisocytosis Microcytosis Macrocytosis Spherocytes Sickle Cells Target Cells Tear Drop Cells Ovalocytes Stomatocytes Carrillo-Malden Bodies [place] Cells Bite Cells Crenated Cell Acanthocytes (Spur) Rouleaux Schistocytes D-Dimer Quant (PE/DVT) Sodium Potassium Chloride Carbon Dioxide Anion Gap BUN Creatinine Estim Creat Clear Calc Est GFR (MDRD) Af Amer Est GFR (MDRD) Non-Af BUN/Creatinine Ratio Glucose Calcium Troponin I High Sens 4 Radiography Diagnostic Testing: Clinical Impression(s) from Imaging Studies Chest X-Ray 06/07/24 02:23 IMPRESSION: No radiographic evidence of acute cardiopulmonary disease. Electronically Signed: Denisa Hugo MD at 4:20 EDT Reading Location ID and State: [facility] / [place] , Service support , Discharge Plan Triage Chief Complaint: Chest Pain ED Provider: Ermias Kelly Dx/Rx/DC Orders Clinical Impression: Chest pain, Tachycardia, POTS (postural orthostatic tachycardia syndrome) Instructions: Understanding Tachycardia, ED Chest Pain, Uncertain Cause Prescriptions: No Action atenolol [Tenormin] 25 MG tablet 25 mg DAILY fluvoxamine 100 MG tablet 200 mg PO DAILY fluoxetine 10 MG capsule 20 mg PO DAILY meloxicam 15 MG tablet 15 mg PO DAILY hydroxyzine pamoate 50 MG capsule 25 - 50 mg PO TID PRN (Reason: Anxiety/Restlessness/Sleep) propranolol 10 MG tablet 10 mg PO DAILY PRN (Reason: Dizziness) hydroxychloroquine 200 MG tablet 400 mg PO DAILY anakinra 100 MG/0.67 ML syringe 100 mg SQ DAILY medroxyprogesterone 150 MG/ML syringe 150 mg IM .[id number] colchicine 0.6 MG capsule 0.6 mg PO DAILY Ilaris (PF) 150 mg/mL solution subcut Primary Care Provider: Katie Fernández Referrals: Katie Fernández MD [Primary Care Provider] - 3-5 Days if not improving Activity Restrictions/Additional Instructions: Return with increased chest pain, new or worsening symptoms. 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 Print Language: Hungarian Disposition Disposition: Home, Self Care
[2024-06-07] MEDS: 0.9% Normal Saline (1000mL) 1,000 ML 999 ML IV (02:02)
[2024-06-07 02:17] LABS: D-Dimer Quantitative (DVT/PE) 0.33 FEU/ug/m (0.27-0.49)
--- OUTSIDE RECORDS SUMMARY | 2024-06-07 02:21 | XMS RPT_ITS | CCD ---
Author Organization [facility] Care Team Providers Care Metropolitan Editor Name Role Phone Faustina Carcamo MD Primary Care Provider Taylor MBBS, Dhanu R Primary Care Provider [phone] No, Physician Primary Care Provider UnavailADDIE Cruz Referring Unavailable ADDIE HERRERA Attending Unavailable NO, PHYSICIAN Primary Care Unavailable ADDIE HERRERA Attending Unavailable NO, PHYSICIAN Primary Care Unavailable Faustina Carcamo MD Primary Care Provider Taylor MBBS, Dhanu R Primary Care Provider Faustina Carcamo MD Primary Care Provider PROVIDER 1, MASS [employer] Attending Un available MIRTA SORIANO Attending Unavailable SELF, SELF Referring Unavailable TAYLOR, DHANU R Primary Care Unavailable TAYLOR, DHANU R Attending Unavailable CASEY KERN Attending Unavailable TAYLOR, DHANU R Primary Care Unavailable TAYLOR, DHANU R Referring Unavailable ZAIN APARICIO Attending Unavailable ZAIN APARICIO Referring Unavailable TAYLOR, DHANU R Primary Care Unavailable JUAN RAMON GOODRICH Attending Unavailable TAYLOR, DHANU R Primary Care Unavailable SELF, SELF Referring Unavailable TAYLOR, DHANU R Primary Care Unavailable JUAN RAMON GOODRICH Attending Unavailable JUAN RAMON GOODRICH Referring Unavailable TAYLOR, DHANU R Primary Care Unavailable MIRIAM ORTIZ Attending Unavailable TAYLOR, DHANU R Primary Care Unavailable SELF, SELF Referring Unavailable JONATHAN PICKETT Attending Unavailable FAUSTINA CARCAMO Primary Care Unavailable UNGPRASERT, PATOMPONG Referring UnavailFAUSTINA Desai Primary Care Unavailable UNGPRASERT, PATOMPONG Referring UnavailFAUSTINA Desai Primary Care Unavailable Faustina Carcamo MD Primary Care Provider TALAMPAS, FAUSTINA D Primary Care Unavailable PETE NANI Referring Unavailable FLORA JENKINS Attending Unavailable TALAMPAS, FAUSTINA D Primary Care Unavailable UNGPRASERT, PATOMPONG Referring Unavailabl e TALAMPAS, FAUSTINA D Primary Care Unavailable FRANCOISE ROWLEY Attending Unavailable UNGPRASERT, PATOMPONG Referring Unavailabl e TALAMPAS, FAUSTINA D Primary Care Unavailable TALAMPAS, FAUSTINA D Primary Care Unavailable MORALES, GENARO Referring Unavailable PAULY CLEVELAND Attending Unavailable TALAMPAS, FAUSTINA D Primary Care Unavailable PATSY JUARES Referring Unavailable TALAMPAS, FAUSTINA D Primary Care Unavailable TALAMPAS, FAUSTINA D Primary Care Unavailable MORALES, GENARO Attending Unavailable UNGPRASERT, PATOMPONG Referring Unavailabl e TALAMPAS, FAUSTINA D Primary Care Unavailable TALAMPAS, FAUSTINA D Primary Care Unavailable TALAMPAS, FAUSTINA D Primary Care Unavailable SASHA LAU Attending Unavailable TALAMPAS, FAUSTINA D Primary Care Unavailable MORALES, GENARO Referring Unavailable TALAMPAS, FAUSTINA D Primary Care Unavailable TALAMPAS, FAUSTINA D Primary Care Unavailable MORALES, GNEARO Referring Unavailable TALAMPAS, FAUSTINA D Primary Care Unavailable MORALES, GENARO Referring Unavailable TALAMPAS, FAUSTINA D Primary Care Unavailable TALAMPAS, FAUSTINA D Attending Unavailable TALAMPAS, FAUSTINA D Attending Unavailable TALAMPAS, FAUSTINA D Primary Care Unavailable UNGPRASERT, PATOMPONG Referring Unavailabl e TALAMPAS, FAUSTINA D Primary Care Unavailable ANGI GONZALES Referring Unavailable TALAMPAS, FAUSTINA D Primary Care Unavailable CHARISSA AYALA Attending Unavailable TALAMPAS, FAUSTINA D Primary Care Unavailable CHARISSA AYALA Referring Unavailable UNGPRASERT, PATOMPONG Referring Unavailabl e TALAMPAS, FAUSTINA D Primary Care Unavailable TALAMPAS, FAUSTINA D Primary Care Unavailable MORALES, GENARO Attending Unavailable TALAMPAS, FAUSTINA D Attending Unavailable TALAMPAS, FAUSTINA D Primary Care Unavailable TALAMPAS, FAUSTINA D Primary Care Unavailable TALAMPAS, FAUSTINA D Attending Unavailable TALAMPAS, FAUSTINA D Primary Care Unavailable FLORA JENKINS Attending Unavailable TALAMPAS, FAUSTINA D Primary Care Unavailable PEDRO JUDGE Attending Unavailable TALAMPAS, FAUSTINA D Primary Care Unavailable TALAMPAS, FAUSTINA D Primary Care Unavailable UNGPRASERT, PATOMPONG Attending Unavailabl e TALAMPAS, FAUSTINA D Primary Care Unavailable TALAMPAS, FAUSTINA D Primary Care Unavailable UNGPRASERT, PATOMPONG Attending Unavailabl e UNGPRASERT, PATOMPONG Referring Unavailabl e TALAMPAS, FAUSTINA D Primary Care Unavailable UNGPRASERT, PATOMPONG Attending Unavailabl e UNGPRASERT, PATOMPONG Referring Unavailabl e TALAMPAS, FAUSTINA D Primary Care Unavailable QIAN FARRIS Attending Unavailable TALAMPAS, FAUSTINA D Referring Unavailable SELMA GRAMAJO Attending Unavailabl e TALAMPAS, FAUSTINA D Primary Care Unavailable TALAMPAS, FAUSTINA D Primary Care Unavailable TALAMPAS, FAUSTINA D Primary Care Unavailable TALAMPAS, FAUSTINA D Primary Care Unavailable GENARO MORALES Attending Unavailable TALAMPAS, FAUSTINA D Primary Care Unavailable TALAMPAS, FAUSTINA D Primary Care Unavailable RADHA TOLEDO Attending Unavailable Allergies Allergy Classification Reported Allergen(s) Allergy Type Date of Onset Reaction(s) Facility (20 sources) Latex; Translations: [LATEX, NATURAL RUBBER] Drug Allergy 3 [facility] Work Phone: (20 sources) Seasonal allergy; Translations: [SEASONAL ALLERGIES] Allergy to substance 1 [facility] (20 sources) Latex; Translations: [LATEX] Propensity to adverse reactions to drug 3 [facility] (20 sources) Banana Extract; Translations: [BANANA] Drug Allergy 3 Anaphylaxis, GI Upset, Itching [facility] Medications Current Medications Medication Drug Class(es) Dates Sig (Normalized) Sig (Original) amoxicillin 875 mg / clavulanate 125 mg oral tablet (7 sources) Penicillin-class Antibacterial Start: 12-14-2023 End: 12-19-2023 take 1 tablet by mouth twice daily amoxicillin-clav ulanate potassium (AUGMENTIN) 875-125 mg per tablet Indications: Bacterial sinusitis Take 1 tablet by mouth two times a day for 5 days. 10 tablet 0 12/14/2023 12/19/2023 Active Start: 02-21-2023 End: 03-03-2023 take 1 tablet by mouth every twelve hours amoxicillin-clavulanic acid (AUGMENTIN) 875-125 mg per tablet Indications: Acute non-recurrent maxillary sinusitis , Other non-recurrent acute nonsuppurative otitis media of both ears Take 1 tablet by mouth every 12 hours for 10 days. 20 tablet 0 02/21/2023 03/03/2023 Active Start: 08-10-2022 End: 08-21-2022 take 1 tablet by mouth every twelve hours amoxicillin-clavulanic acid (AUGMENTIN) 875-125 mg per tablet Take 1 tablet by mouth every 12 hours. 0 08/10/2022 08/21/2022 Start: 07-23-2021 End: 08-13-2021 take 1 tablet by mouth twice daily amoxicillin-clavulanic acid (AUGMENTIN) 875-125 mg per tablet Indications: Acute recurrent maxillary sinusitis Take 1 tablet by mouth twice daily for 21 days. 42 tablet 07/23/2021 08/13/2021 Comment on above: Take 1 tablet by kristen th every 12 hours. Take 1 tablet by kristen th every 12 hours for 10 days. atenolol 25 mg oral tablet (20 sources) beta-Adrenergic Ishmael Start: 01-18-2022 End: 07-06-2023 take 1 tablet by mouth twice daily as needed atenolol (TENORMIN) 25 mg tablet Indications: Inappropriate sinus node tachycardia (HCC) Take 1 tablet by mouth two times a day as needed. 60 tablet 5 07/06/2023 Active Start: 07-21-2020 End: 01-16-2022 take 1 tablet by mouth twice daily atenolol (TENORMIN) 25 mg tablet Indications: Inappropriate sinus node tachycardia (HCC) Take 1 tablet by mouth twice daily. as directed 180 tablet 3 07/21/2020 01/16/2022 Discontinued Start: 12-25-2018 End: 07-19-2020 take 1 tablet by mouth twice daily atenolol (TENORMIN) 25 mg tablet Indications: Inappropriate sinus node tachycardia (HCC) Take 1 tablet by mouth twice daily. as directed 180 tablet 3 12/25/2018 07/19/2020 Discontinued Comment on above: Take 1 tablet by kristen th twice daily. as directed Take 1 tablet by kristen th two times a day as needed. azelastine hydrochloride 0.137 mg/actuat metered dose nasal spray (20 sources) Histamine-1 Receptor Antagonist Start: take 2 spray(s) nasal route twice daily as needed azelastine (ASTELIN) 0.1% nasal spray Use 2 Sprays in each nostril twice daily as needed. 30 mL 11 06/11/2021 Active Start: 06-11-2021 azelastine 0.1 % Solution nasal spray 2 sprays by Does Not Apply route Every 12 hours as needed. 0 06/11/2021 Active Comment on above: Use 2 Sprays in each nostril twice daily as needed. baclofen 10 mg oral tablet (20 sources) gamma-Aminobutyri c Acid-ergic Agonist Start: take 1 tablet by mouth every eight hours as needed baclofen 10 mg tablet Take 1 tablet by mouth three times a day as needed. 90 tablet 2 08/19/2023 Active Comment on above: Take 1 tablet by kristen three times a day as needed. 1 ml canakinumab 150 mg/ml injection (20 sources) Start: End: canakinumab, PF, (ILARIS, PF,) 150 mg/mL injection Indications: Periodic fever syndrome (HCC) Inject 150mg (1 vial) subcutaneously every 4 weeks. 1 mL 11 04/18/2024 Active Start: 06-18-2022 End: 04-06-2023 canakinumab, PF, (ILARIS, PF ,) 150 mg/mL injection Indications: Periodic fever syndrome (HCC) INJECT 150 MG (1 ML) UNDER THE SKIN EVERY 4 WEEKS 1 mL 11 02/16/2023 04/06/2023 Discontinued Start: 07-14-2021 End: 06-14-2022 Ilaris, PF, 150 mg/mL Soln Start: 10-27-2020 End: 01-29-2021 canakinumab, PF, (ILARIS, PF ,) 150 mg/mL injection Indications: Periodic fever syndrome (HCC) Inject 150 mg subcutaneously every 4 weeks. wili -due this weekend 150 mL 3 10/27/2020 01/29/2021 Discontinued Start: 09-13-2019 End: 09-02-2020 canakinumab, PF, (ILARIS, PF ,) 150 mg/mL soln Indications: Periodic fever syndrome (HCC) Inject 150 mg subcutaneously every 4 weeks. 1 Pen 11 09/13/2019 09/02/2020 Discontinued Comment on above: INJECT 150 MG (1 ML) UNDER THE SKIN EVERY 4 WEEKS colchicine 0.6 mg oral tablet (20 sources) Start: 07-21-2021 End: 12-03-2023 take 1 tablet by mouth twice daily colchicine 0.6 mg tablet Indications: Periodic fever syndrome (HCC) Take 1 tablet by mouth twice daily. 180 tablet 3 12/03/2022 Active Start: 11-22-2019 End: 06-09-2021 take 1 tablet by mouth once daily colchicine 0.6 mg tablet Take 1 tablet by mouth once daily. 30 tablet 11 12/09/2020 06/09/2021 Discontinued Comment on above: TAKE 1 TABLET BY KRISTEN TWICE A DAY Take 1 tablet by kristen twice daily. dexamethasone 4 mg oral tablet (1 source) Corticosteroid Start: End: take 1 tablet by mouth once dexAMETHasone (DECADRON) 4 mg tablet Take 1 tablet by mouth one time only for 1 dose. 1 tablet 0 04/18/2023 04/18/2023 Active Comment on above: Take 1 tablet by kristen one time only for 1 dose. doxycycline hyclate 100 mg oral capsule (4 sources) Tetracycline-class Drug Start: End: take 1 capsule by mouth twice daily doxycycline hyclate (VIBRAMYCIN) 100 mg capsule Take 1 capsule by mouth twice daily for 10 days. 20 capsule 0 02/19/2022 03/01/2022 Active Comment on above: Take 1 capsule by mo [facility] twice daily for 10 days. [id number] 0.3 ml EPINEPHrine 1 mg/ml auto-injector (20 sources) alpha-Adrenergic Agonist, beta-Adrenergic Agonist, Catecholamine Start: EPINEPHrine (EPIPEN 2-ISIDRO) 0.3 mg/0.3 mL auto-injector Inject 0.3 mL intramuscularly as needed. For allergic reaction.Seek emergent medical care immediately after use.Disp:1 2-pakw/program trainer 1 Each 2 12/08/2023 Active ergocalciferol 1.25 mg oral capsule (11 sources) Provitamin D2 Compound Start: 024 take 1 tablet by mouth every week ergocalciferol 50,000 unit capsule (VITAMIN D2, DRISDOL) Indications: Vitamin D deficiency Take 1 tablet by mouth once weekly. 12 capsule 3 04/03/2024 Active FLUoxetine 10 mg oral capsule (20 sources) Serotonin Reuptake Inhibitor Start: 023 take 1 capsule by mouth once daily FLUoxetine (PROZAC) 10 mg capsule Take 1 capsule by mouth once daily. Can go up to 20 mg after 1 month if needed 60 capsule 5 04/25/2023 Active Start: 11-17-2021 take 1 capsule by mo uth once daily FLUoxetine 20 MG capsule Take 20 mg by mouth daily. 0 02/07/2022 Active Start: 11-24-2020 End: 11-17-2021 take 1 capsule by mouth once daily FLUoxetine (PROZAC) 10 mg capsule Indications: Panic attacks , Depression, unspecified depression type Take 1 capsule by mouth once daily. 90 capsule 3 11/24/2020 11/17/2021 Discontinued Start: 03-23-2019 End: 10-01-2020 take 1 capsule by mouth once daily in the morning FLUoxetine (PROZAC) 10 mg capsule TAKE 1 CAPSULE BY MOUTH EVERY DAY IN THE MORNING 1 03/23/2019 10/01/2020 Discontinued (Discontinued by another Health Care Provider) Comment on above: Take 1 capsule by mo uth once daily. Take 1 capsule by mo uth once daily. Can go up to 20 mg after 1 month if needed fluvoxaMINE maleate 100 mg oral tablet (20 sources) Serotonin Reuptake Inhibitor Start: take 2 tablets by mouth once daily fluvoxaMINE (LUVOX) 100 mg tablet Indications: Obsessive-compulsive disorder, unspecified type Take 2 tablets by mouth once daily. 180 tablet 3 07/06/2023 Active Start: 03-01-2023 End: 08-22-2023 take 3 tablets by mouth once daily fluvoxaMINE (LUVOX) 100 mg tablet Indications: Obsessive-compulsive disorder, unspecified type Take 3 tablets by mouth once daily. LAST FILL. PLEASE SCHEDULE APPOINTMENT FOR FURTHER REFILLS. 90 tablet 0 06/23/2023 07/06/2023 Discontinued Start: 07-20-2022 End: 10-18-2022 take 3 tablets by mouth once daily fluvoxaMINE (LUVOX) 100 mg tablet Indications: Obsessive-compulsive disorder, unspecified type Take 3 tablets by mouth once daily. 90 tablet 2 07/20/2022 Active Start: 06-08-2022 End: 12-05-2022 take 2.5 tablets by mouth once daily fluvoxaMINE (LUVOX) 100 mg tablet Indications: Obsessive-compulsive disorder, unspecified type Take 2.5 tablets by mouth once daily. 225 tablet 1 06/08/2022 12/05/2022 Active Start: 11-30-2021 take 2 tablets by mo uth once daily fluvoxaMINE 100 MG tablet Take 200 mg by mouth daily. 0 11/30/2021 Active Start: 11-24-2020 End: 11-28-2021 take 2 tablets by mouth once daily fluvoxaMINE (LUVOX) 100 mg tablet Indications: Obsessive-compulsive disorder, unspecified type Take 2 tablets by mouth once daily. 180 tablet 3 11/24/2020 11/28/2021 Discontinued Start: 10-02-2015 End: 09-24-2020 take 1 tablet by mouth twice daily fluvoxaMINE (LUVOX) 100 mg tablet Take 1 tablet by mouth twice daily. 10/02/2015 09/24/2020 Discontinued Comment on above: Take 2 tablets by mo uth once daily. Take 2.5 tablets by mouth once daily. Take 3 tablets by mo uth once daily. Take 3 tablets by mo uth once daily. LAST FILL. PLEASE SCHEDULE APPOINTMENT FOR FURTHER REFILLS. ketorolac tromethamine 10 mg oral tablet (3 sources) Nonsteroidal Anti-inflammatory Drug, Cyclooxygenase Inhibitor Start: 3 End: take 1 tablet by mouth every six hours as needed keTORolac (TORADOL) 10 mg tablet Take 1 tablet by mouth every 6 hours as needed for pain for up to 5 days. Take with food 20 tablet 0 05/20/2023 05/25/2023 Active Start: 05-20-2023 End: 05-20-2023 keTORolac 60 mg injection (T oradol) Comment on above: [facility] as needed for pain for up to 5 days. Take with food levocetirizine dihydrochloride 5 mg oral tablet (20 sources) Histamine-1 Receptor Antagonist levocetirizine 5 mg tablet Take 5 mg by mouth as needed. Active Comment on above: Take 5 mg by mouth a s needed. levonorgestrel 0.443444 mg/hr intrauterine system (20 sources) Progestin, Progestin-containing Intrauterine Device Start: 12-04-2021 End: 12-02-2028 Levonorgestrel 20 MCG/DAY 1 Each by Intrauterine route. 0 12/04/2021 12/02/2028 Active Start: 12-04-2021 End: 12-02-2028 levonorgestrel (MIRENA) 20 m cg/24 hours (7 yrs) 52 mg IUD Indications: Encounter for IUD insertion 1 Each by INTRAUTERINE route as directed. 1 Each 12/04/2021 12/02/2028 Active Comment on above: 1 Each by INTRAUTERI NE route as directed. 24 hr metFORMIN hydrochloride 500 mg extended release oral tablet (11 sources) Biguanide Start: 2023 End: 2024 take 50-59.9 tablets by mouth once daily metFORMIN ER (GLUCOPHAGE XR) 500 mg 24 hr tablet Indications: Class 3 severe obesity due to excess calories with body mass index (BMI) of 50.0 to 59.9 in adult, unspecified whether serious comorbidity present (HCC) Take 1 tablet by mouth daily with breakfast. 90 tablet 3 04/03/2024 04/03/2025 Active methylPREDNISolone (2 sources) Corticosteroid Start: 2022 End: 2022 methylPREDNISolone (MEDROL, ISIDRO,) 4 mg Dose-Pack Indications: Upper back pain As instructed per package 21 tablet 0 06/06/2023 06/12/2023 Active Start: 09-01-2022 End: 09-07-2022 methylPREDNISolone (MEDROL, ISIDRO,) 4 mg Dose-Pack As instructed per package 1 tablet 1 09/01/2022 09/07/2022 Active Comment on above: As instructed per kilo osuna miSOPROStol 0.2 mg oral tablet (9 sources) Prostaglandin E1 Analog Start: 10-30-19 End: 01-14-20 miSOPROStol (CYTOTEC) 200 mcg tablet Insert 2 tabs vaginally the night prior to procedure and 2 tabs morning of procedure 4 tablet 0 10/29/2021 01/13/2022 Discontinued (Course of therapy completed) Comment on above: Insert 2 tabs vagina lly the night prior to procedure and 2 tabs morning of procedure naratriptan 2.5 mg oral tablet (20 sources) Serotonin-1b and Serotonin-1d Receptor Agonist Start: 05-20-20 End: 10-24-19 take 1 tablet by mouth every four hours as needed for headache naratriptan (AMERGE) 2.5 mg tablet Take 1 tablet (2.5 mg) by mouth as needed for migraine headache (see administration instructions). 2.5 mg at onset of headache, may repeat in 4 hours if needed 9 tablet 11 10/24/2023 Active Start: 03-17-2021 End: 04-25-2023 take 1 tablet by mouth every four hours as needed for headache naratriptan (AMERGE) 2.5 mg tablet Take 1 tablet by mouth as needed for Migraine Headache (see administration instructions). 2.5 mg at onset of headache, may repeat in 4 hours if needed 9 tablet 11 03/17/2021 11/17/2021 Discontinued Start: 12-25-2019 End: 01-16-2021 take 1 mg by mouth every twenty-four hours naratriptan (AMERGE) 2.5 mg tablet Take 1 tablet by mouth as directed. at the onset of headache; if headache returns or does not fully resolve, the dose may be repeated after 4 hours; do not exceed five(5) mg in 24 hours. 10 tablet 5 12/25/2019 01/16/2021 Discontinued Comment on above: Take 1 tablet by kristen th as needed for Migraine Headache (see administration instructions). 2.5 mg at onset of headache, may repeat in 4 hours if needed Take 1 tablet (2.5 m g) by mouth as needed for migraine headache (see administration instructions). 2.5 mg at onset of headache, may repeat in 4 hours if needed nitrofurantoin, macrocrystals 25 mg / nitrofurantoin, monohydrate 75 mg oral capsule (1 source) Nitrofuran Antibacterial Start: End: take 1 capsule by mouth twice daily nitrofurantoin monohydrate and macrocrystal (MACROBID) 100 mg capsule Take 1 capsule by mouth two times a day for 5 days. 10 capsule 0 05/25/2023 05/30/2023 Active Comment on above: Take 1 capsule by mo [facility] two times a day for 5 days. norethindrone 0.35 mg oral tablet (20 sources) Start: 024 take 1 tablet by mouth once daily Norethindrone, Contraceptive, 0.35 mg tablet Take 1 tablet by mouth once daily. 84 tablet 2 02/27/2024 Active Start: 02-25-2020 End: 01-13-2022 take 1 tablet by mouth once daily Norethindrone, Contraceptive, 0.35 mg tablet TAKE 1 TABLET BY MOUTH EVERY DAY 84 tablet 1 05/21/2021 11/12/2021 Discontinued Comment on above: TAKE 1 TABLET BY [facility] EVERY DAY Oral Electrolytes (Pedialyte Freezer Pops) Solution (5 sources) Start: 04-22-2021 take 948 mL by mouth once daily Oral Electrolytes (Pedialyte Freezer Pops) Solution Take 948 mL by mouth daily. 0 04/22/2021 Active Start: 04-22-2021 End: 04-22-2022 take 948 mL by mouth once daily Oral Electrolytes (Pedialyte Freezer Pops) Solution Take 948 mL by mouth daily. 0 04/22/2021 04/22/2022 Active predniSONE 10 mg oral tablet (20 sources) Start: 04-03-2024 End: 04-15-2024 predniSONE (DELTASONE) 10 mg tablet Indications: Costochondritis Take 4 tabs daily x 3 days, then 3 tabs x 3 days, 2 tabs x 3 days, then 1 tab x3 days with food. 30 tablet 04/03/2024 04/15/2024 Active Start: 07-28-2023 End: 09-26-2023 take 1 tablet by mouth once daily predniSONE (DELTASONE) 10 mg tablet Indications: SO-JILLIAN (systemic onset juvenile idiopathic arthritis) (HCC) Take 1 tablet by mouth once daily. 60 tablet 0 07/28/2023 09/26/2023 Active Start: 07-15-2023 End: 07-28-2023 predniSONE (DELTASONE) 5 mg tablet Indications: Periodic fever syndrome (HCC) 20 mg daily for 3 days, then 15 mg daily for 3 days, then 10 mg daily for 3 days then 5 mg daily for 30 days 57 tablet 0 07/15/2023 07/28/2023 Discontinued Start: 03-24-2023 predniSONE (DE LTASONE) 5 mg tablet Indications: Periodic fever syndrome (HCC) 20 mg daily for 3 days, then 15 mg daily for 3 days, then 10 mg daily for 3 days then 5 mg daily for 30 days 57 tablet 0 03/24/2023 Active Start: 03-03-2023 End: 04-02-2023 take 1 tablet by mouth once daily predniSONE (DELTASONE) 5 mg tablet Indications: Periodic fever syndrome (HCC) Take 1 tablet by mouth once daily. 30 tablet 0 03/03/2023 04/02/2023 Active Start: 11-10-2022 End: 11-22-2022 predniSONE (DELTASONE) 10 mg tablet Indications: Costochondritis Take 4 tabs daily x 3 days, then 3 tabs x 3 days, 2 tabs x 3 days, then 1 tab x3 days with food. 30 tablet 0 11/10/2022 11/22/2022 Active Start: 06-03-2022 End: 06-14-2022 take 1 tablet by mouth once daily predniSONE (DELTASONE) 20 mg tablet Take 1 tablet by mouth once daily. 5 tablet 0 06/03/2022 06/14/2022 Discontinued Start: 03-24-2022 End: 06-28-2022 take 1 tablet by mouth once daily predniSONE 5 MG tablet Take 5 mg by mouth daily. 0 03/24/2022 06/28/2022 Discontinued (Therapy completed) Start: 07-06-2021 End: 03-24-2022 predniSONE (DELTASONE) 5 mg tablet Take 20mg by mouth daily for 3 days, then decrease by 5mg every 3 days until off. 30 tablet 5 07/06/2021 03/24/2022 Discontinued Start: 10-25-2019 End: 02-26-2021 predniSONE (DELTASONE) 5 mg tablet Take 20mg by mouth daily for 3 days, then decrease by 5mg every 3 days until off. 30 tablet 5 10/25/2019 02/26/2021 Discontinued Comment on above: Take 20mg by mouth d aily for 3 days, then decrease by 5mg every 3 days until off. Take 1 tablet by kristen th once daily. TAKE 1 TABLET BY KRISTEN TH EVERY DAY Take 4 tabs daily x 3 days, then 3 tabs x 3 days, 2 tabs x 3 days, then 1 tab x3 days with food. 20 mg daily for 3 da ys, then 15 mg daily for 3 days, then 10 mg daily for 3 days then 5 mg daily for 30 days propranolol hydrochloride 10 mg oral tablet (20 sources) beta-Adrenergic Ishmael Start: take 1-2 tablets by mouth twice daily as needed propranolol (INDERAL) 10 mg tablet Indications: Inappropriate sinus node tachycardia (HCC) Take 1-2 tablets by mouth twice daily as needed (palpitations or tremors). 30 tablet 5 01/18/2022 Active Start: 06-19-2018 End: 01-16-2022 take 1-2 tablets by mouth twice daily as needed propranolol (INDERAL) 10 mg tablet Indications: Inappropriate sinus node tachycardia (HCC) Take 1-2 tablets by mouth twice daily as needed (palpitations or tremors). 30 tablet 5 06/19/2018 01/16/2022 Discontinued Comment on above: Take 1-2 tablets by mouth twice daily as needed (palpitations or tremors). Syringe with Needle, Disp, 1 mL 27 x 1/2 (6 sources) Start: 2023 Syringe with Needle, Disp, 1 mL 27 x 1/2 Use to inject subcutaneous Ilaris dose 1 Each 12 04/24/2024 Active Syringe with Needle, Disp, 3 mL 18 x 1 1/2 (6 sources) Start: 2023 Syringe with Needle, Disp, 3 mL 18 x 1 1/2 Use to draw up ilaris dose 1 Each 04/24/2024 Active 0.9 ml tocilizumab 180 mg/ml prefilled syringe (20 sources) Interleukin-6 Receptor Antagonist Start: 2022 End: 2023 inject 162 mg by subcutaneous injection every week tocilizumab (ACTEMRA) 162 mg/0.9 mL Indications: SO-JILLIAN (systemic onset juvenile idiopathic arthritis) (HCC) Inject 162 mg ( 1 syringe) subcutaneously one time a week. 3.6 mL 04/12/2023 04/11/2024 Active Comment on above: Inject 162 mg ( 1 sy ringe) subcutaneously one time a week. triamcinolone acetonide 0.055 mg/actuat metered dose nasal spray (20 sources) Corticosteroid Start: 2019 take 2 spray(s) by inhalation once daily triamcinolone acetonide (NASACORT) 55 mcg nasal inhaler Use 2 Sprays in the nose once daily. 06/09/2020 Active Comment on above: Use 2 Sprays in the nose once daily. WALKER ROLLATOR SEAT WITH 6 WHEELS - RED (6 sources) Start: 2023 WALKER ROLLATOR SEAT WITH 6 WHEELS - RED Indications: Bilateral hip pain , Chronic pain of both knees , POTS (postural orthostatic tachycardia syndrome) , Arthritis Adjustable. Use as directed for gait instability 1 Each 05/08/2024 Active Start: 04-30-2024 End: 05-08-2024 WALKER ROLLATOR SEAT WITH 6 WHEELS - RED Indications: Bilateral hip pain , Chronic pain of both knees , POTS (postural orthostatic tachycardia syndrome) , Arthritis Use as directed for gait instability 1 Each 04/30/2024 05/08/2024 Discontinued Start: 04-30-2024 WALKER ROLLATO R SEAT WITH 6 WHEELS - RED Indications: Bilateral hip pain , Chronic pain of both knees , POTS (postural orthostatic tachycardia syndrome) , Arthritis Use as directed for gait instability 1 Each 04/30/2024 Active zonisamide 100 mg oral capsule (20 sources) Anti-epileptic Agent Start: 12-25-2019 End: 04-12-2022 zonisamide (ZONEGRAN) 100 mg capsule Take 3-4 caps at bedtime. 120 capsule 11 04/13/2022 Active Comment on above: Take 3-4 caps at bed time. Completed/Discontinued Medications Medication Drug Class(es) Dates Sig (Normalized) Sig (Original) [id number] 200 actuat albuterol 0.09 mg/actuat metered dose inhaler (20 sources) beta2-Adrenergic Agonist Start: 06-09-2020 End: 10-24-2023 take 2 puff(s) by inhalation every four hours as needed albuterol HFA (PROAIR HFA) 90 mcg/actuation inhaler Indications: Bronchitis Inhale 2 Puffs as instructed every 4 hours as needed. 18 g 1 06/09/2020 04/07/2021 Discontinued Start: 08-03-2017 End: 06-09-2020 take 2 puff(s) by inhalation every four hours as needed albuterol HFA (PROAIR HFA) 90 mcg/actuation inhaler Indications: Bronchitis Inhale 2 Puffs as instructed every 4 hours as needed. 1 Inhaler 08/03/2017 06/09/2020 Discontinued Comment on above: Inhale 2 Puffs as in structed every 4 hours as needed. 0.67 ml anakinra 149 mg/ml prefilled syringe (3 sources) Interleukin-1 Receptor Antagonist Start: 06-14-20 19 End: 01-31-20 21 inject 0.67 mL by subcutaneous injection once daily anakinra (KINERET) 100 mg/0.67 mL syrg Indications: Periodic fever syndrome (HCC) Inject 0.67 mL subcutaneously once daily. 30 Syringe 3 06/14/2019 01/30/2021 Discontinued B-D SYRINGE LUER-RAJI 1CC 1 mL (7 sources) Start: 06-29-20 End: 08-12-20 B-D SYRINGE LUER-RAJI 1CC 1 mL USE DIRECTED WITH ILARIS 1 Each 11 06/29/2022 08/12/2022 Discontinued Start: 06-29-2022 B-D SYRINGE VICTOR HUGO ER-RAJI 1CC 1 mL USE DIRECTED WITH ILARIS 1 Each 06/29/2022 Active Comment on above: USE DIRECTED WITH ILARIS benzonatate 100 mg oral capsule (3 sources) Non-narcotic Antitussive Start: 2022 End: 2022 take 1 capsule by mouth every eight hours as needed benzonatate (TESSALON PERLES) 100 mg capsule Take 1 capsule by mouth three times daily as needed for cough for up to 7 days. 21 capsule 0 04/18/2023 04/25/2023 Comment on above: Take 1 capsule by [facility] three times daily as needed for cough for up to 7 days. Blood Pressure Monitor (BLOOD PRESSURE KIT) kit (1 source) Start: 2017 End: 2019 Blood Pressure Monitor (BLOOD PRESSURE KIT) kit 1 Kit once daily. 1 Kit 03/27/2018 06/24/2020 Discontinued budesonide 0.032 mg/actuat metered dose nasal spray (1 source) Corticosteroid Start: 2019 End: 2019 take 2 spray(s) by mouth once daily for congestion budesonide (RHINOCORT AQ) 32 mcg/actuation nasal spray Use 2 Sprays in each nostril once daily. Rinse mouth after use. for nasal congestion 1 Bottle 1 04/18/2020 06/09/2020 Discontinued cholecalciferol 1.25 mg oral capsule (20 sources) Vitamin D Start: 2019 End: 2022 take 1 capsule by mouth two times weekly cholecalciferol, Vitamin D3, (VITAMIN D3) 1,250 mcg (50,000 unit) cap capsule Indications: Vitamin D deficiency Take 1 capsule by mouth two times a week. 32 capsule 03/03/2020 07/28/2023 Discontinued (Other) Comment on above: Take 1 capsule by [facility] two times a week. cyclobenzaprine hydrochloride 10 mg oral tablet (1 source) Muscle Relaxant Start: 2017 End: 2019 take 1 tablet by mouth three times daily as needed for muscle spasms cyclobenzaprine (FLEXERIL) 10 mg tablet TAKE 1 TABLET BY MOUTH THREE TIMES DAILY NEEDED FOR MUSCLE SPASM. 30 tablet 2 02/20/2018 06/24/2020 Discontinued 12 hr dextromethorphan hydrobromide 30 mg / guaiFENesin 600 mg extended release oral tablet (3 sources) Uncompetitive E-hzdpqi-A-aspartate Receptor Antagonist, Sigma-1 Agonist Start: 2022 End: 2022 take 1 tablet by mouth twice daily dextromethorphan-guai FENesin (MUCINEX DM) 30-600 mg per tablet Take 1 tablet by mouth twice daily for 7 days. 14 tablet 0 04/18/2023 04/25/2023 Comment on above: Take 1 tablet by [facility] twice daily for 7 days. diphenhydrAMINE hydrochloride 25 mg oral tablet (1 source) Histamine-1 Receptor Antagonist Start: 2019 End: 2019 take 1 tablet by mouth every six hours as needed diphenhydrAMINE (BENADRYL ALLERGY) 25 mg tablet Take 1 tablet by mouth every 6 hours as needed (as needed for vertigo; may make drowsy. Avoid concurrent use with vistaril). 30 tablet 04/18/2020 06/09/2020 Discontinued (Course of therapy completed) eletriptan 40 mg oral tablet (19 sources) Serotonin-1b and Serotonin-1d Receptor Agonist Start: 2022 End: 2023 eletriptan (RELPAX) 40 mg tablet Take 1 tablet (40 mg) by mouth as needed. TAKE AT ONSET OF MIGRAINE HEADACHE. 10 tablet 5 04/25/2023 10/24/2023 Discontinued Comment on above: Take 1 tablet (40 mg ) by mouth as needed. TAKE AT ONSET OF MIGRAINE HEADACHE. fluconazole 150 mg oral tablet (2 sources) Azole Antifungal Start: 2021 End: 2021 take 1 tablet by mouth once fluconazole (DIFLUCAN) 150 mg tablet Take 1 tablet by mouth one time only for 1 dose. 1 tablet 0 07/15/2022 07/15/2022 Discontinued Comment on above: Take 1 tablet by kristen one time only for 1 dose. hydrOXYzine hydrochloride 25 mg oral tablet (20 sources) Antihistamine Start: 2019 End: 2021 take 2 tablets by mouth once daily as needed for anxiety hydrOXYzine HCl (ATARAX) 25 mg tablet Take 2 tablets by mouth once daily as needed for Anxiety. (from psychiatrist) 06/09/2020 01/13/2022 Discontinued (Course of therapy completed) Start: 12-22-2018 End: 09-16-2021 take 1 capsule by mouth every eight hours as needed hydrOXYzine pamoate (VISTARIL) 50 mg capsule Take 1 capsule by mouth three times daily as needed. 12/22/2018 09/16/2021 Discontinued Comment on above: Take 2 tablets by [facility] once daily as needed for Anxiety. (from psychiatrist) iohexol (OMNIPAQUE) 350 MG/ML injection 1-171 mL (1 source) Start: 06-28-20 End: 06-28-20 iohexol (OMNIPAQUE) 350 MG/ML injection 1-171 mL ketoconazole 20 mg/ml topical cream (4 sources) Azole Antifungal Start: 09-20-19 End: 09-16-19 ketoconazole (NIZORAL) 2 % cream Indications: Perleche with candidiasis Apply 1 application to affected area once daily. Use 1 week past rash resolving as directed 30 g 2 09/20/2018 09/16/2021 Discontinued meloxicam 15 mg oral tablet (20 sources) Nonsteroidal Anti-inflammatory Drug Start: 01-20-20 End: 08-11-20 22 take 1 tablet by mouth once daily as needed meloxicam (MOBIC) 15 mg tablet Indications: Neck pain , Fibromyalgia Take 1 tablet by mouth once daily as needed. 30 tablet 5 01/19/2021 08/11/2022 Discontinued Start: 10-05-2019 End: 01-16-2021 take 1 tablet by mouth once daily as needed meloxicam (MOBIC) 15 mg tablet Indications: Neck pain , Fibromyalgia Take 1 tablet by mouth once daily as needed. 30 tablet 5 06/19/2020 01/16/2021 Discontinued Comment on above: Take 1 tablet by kristen th once daily as needed. montelukast 10 mg oral tablet (20 sources) Leukotriene Receptor Antagonist Start: 05-09-20 End: 08-11-20 22 take 1 tablet by mouth once daily at bedtime montelukast (SINGULAIR) 10 mg tablet Take 1 tablet by mouth daily at bedtime. 90 tablet 3 05/09/2020 05/15/2021 Discontinued Comment on above: Take 1 tablet by kristen th daily at bedtime. mupirocin 0.02 mg/mg topical ointment (4 sources) RNA Synthetase Inhibitor Antibacterial Start: 06-24-20 End: 09-16-19 mupirocin (BACTROBAN) 2 % ointment Apply 1 application to affected area twice daily. 22 g 06/24/2020 09/16/2021 Discontinued Start: 03-15-2018 End: 06-24-2020 mupirocin (BACTROBAN) 2 % oi ntment Indications: Cheilitis Apply 1 application to affected area three times daily. 22 g 03/15/2018 06/24/2020 Discontinued NIFEdipine (1 source) Dihydropyridine Calcium Channel Ishmael Start: 10-09-2019 End: 06-24-2020 apply 50 g topically twice daily NIFEdipine 0.2% topical ointment Apply pea-sized amount to anus, twice a day 50 g 1 10/09/2019 06/24/2020 Discontinued ondansetron 8 mg disintegrating oral tablet (17 sources) Serotonin-3 Receptor Antagonist Start: 02-13-2018 End: 01-13-2022 take 1 tablet by mouth every eight hours as needed ondansetron orally disintegrating (ZOFRAN ODT) 8 mg disintegrating tablet Indications: Migraine with aura and without status migrainosus, not intractable Take 1 tablet by mouth every 8 hours as needed. 30 tablet 2 02/13/2018 01/13/2022 Discontinued (Course of therapy completed) Comment on above: Take 1 tablet by kristen th every 8 hours as needed. Pedialyte (PEDIALYTE) soln (20 sources) Start: 04-22-2021 End: 06-03-2022 take 948 mL by mouth once daily Pedialyte (PEDIALYTE) soln Indications: POTS (postural orthostatic tachycardia syndrome) Take 948 mL by mouth once daily. Diagnosis: POTS I49.8 63317 mL 11 04/22/2021 06/03/2022 Discontinued (Discontinued by Patient) Start: 04-22-2021 take 948 mL by mouth once daily Pedialyte (PEDIALYTE) soln Indications: POTS (postural orthostatic tachycardia syndrome) Take 948 mL by mouth once daily. Diagnosis: POTS I49.8 31363 mL 11 04/22/2021 Active Start: 04-22-2021 End: 04-22-2022 take 948 mL by mouth once daily Pedialyte (PEDIALYTE) soln Indications: POTS (postural orthostatic tachycardia syndrome) Take 948 mL by mouth once daily. Diagnosis: POTS I49.8 67365 mL 11 04/22/2021 04/22/2022 Active Start: 03-07-2020 End: 02-09-2021 take 500 mL by mouth once daily Pedialyte (PEDIALYTE) soln Indications: Recurrent fever , Diarrhea due to drug , Inappropriate sinus node tachycardia (HCC) , Neurocirculatory asthenia Take 500 mL by mouth once daily. As directed 56821 mL 11 03/07/2020 02/09/2021 Discontinued Comment on above: Take 948 mL by mouth once daily. Diagnosis: POTS I49.8 prazosin 2 mg oral capsule (4 sources) alpha-Adrenergic Ishmael Start: 07-20-2022 End: 10-18-2022 take 1 capsule by mouth once daily at bedtime prazosin (MINIPRESS) 2 mg cap Indications: PTSD (post-traumatic stress disorder) Take 1 capsule by mouth daily at bedtime. 30 capsule 2 07/20/2022 08/11/2022 Discontinued (Lack of Efficacy) Start: 06-07-2022 End: 07-07-2022 take 1 capsule by mouth once daily at bedtime prazosin (MINIPRESS) 1 mg cap Indications: PTSD (post-traumatic stress disorder) Take 1 capsule by mouth daily at bedtime. 30 capsule 0 06/07/2022 07/07/2022 Active Comment on above: Take 1 capsule by [facility] daily at bedtime. 10 ml sodium chloride 9 mg/ml injection (1 source) Start: 06-28-2022 End: 06-28-2022 sodium chloride (PF) 0.9 % injection 1-100 mL Start: 06-28-2022 End: 06-28-2022 sodium chloride (PF) 0.9 % i njection 1-100 mL Syringe with Needle, Disp, ( BD TUBERCULIN SYRINGE) 1 mL 27 x 1/2 (20 sources) Start: 02-25-2022 End: 12-08-2023 Syringe with Needle, Disp, ( BD TUBERCULIN SYRINGE) 1 mL 27 x 1/2 every 4 weeks. 2 Each 02/25/2022 12/08/2023 Discontinued (Other) Start: 02-25-2022 Syringe with N [place], Disp, (BD TUBERCULIN SYRINGE) 1 mL 27 x 1/2 every 4 weeks. 2 Each 02/25/2022 Active Comment on above: every 4 weeks. Syringe, Disposable, (B-D SYRINGE LUER-RAJI 1CC) 1 mL (20 sources) Start: 02-16-2023 End: 12-08-2023 Syringe, Disposable, (B-D SYRINGE LUER-RAJI 1CC) 1 mL USE DIRECTED WITH ILARIS 1 Each 02/16/2023 12/08/2023 Discontinued (Other) Start: 02-16-2023 Syringe, Dispo sable, (B-D SYRINGE LUER-RAJI 1CC) 1 mL USE DIRECTED WITH ILARIS 1 Each 02/16/2023 Active Start: 08-12-2022 End: 02-16-2023 Syringe, Disposable, (B-D SY RINGE LUER-RAJI 1CC) 1 mL USE DIRECTED WITH ILARIS 1 Each 08/12/2022 02/16/2023 Discontinued Start: 08-12-2022 Syringe, Dispo sable, (B-D SYRINGE LUER-RAJI 1CC) 1 mL USE DIRECTED WITH ILARIS 1 Each 08/12/2022 Active Comment on above: USE DIRECTED WITH ILARIS Problems Active Problems Problem Classification Problem Date Documented Da te Episodic/Chronic Abdominal pain (8 sources) Right lower quadrant pain; Translations: [Right lower quadrant pain] Onset: 2 Episodic Administrative/social admission (2 sources) Mobility poor; Translations: [Other reduced mobility] Onset: 4 04-30-2024 Episodic Allergic reactions (3 sources) Latex allergy status; Translations: [Allergy to latex] 10-24-2023 Episodic Anxiety disorders (20 sources) Anxiety; Translations: [Anxiety disorder, unspecified] Onset: 4 11-16-2013 Chronic Cardiac dysrhythmias (20 sources) Postural orthostatic tachycardia syndrome ; Translations: [Other specified cardiac arrhythmias] Onset: 3 Chronic Cardiac dysrhythmias (20 sources) Inappropriate sinus tachycardia; Translations: [Tachycardia, unspecified] Onset: 3 08-14-2013 Episodic Complication of device; implant or graft (2 sources) IUD threads lost; Translations: [Displacement of intrauterine contraceptive device, initial encounter] Episodic Contraceptive and procreative management (12 sources) Patient encounter status; Translations: [Encounter for insertion of intrauterine contraceptive device] Onset: 2 Episodic E Codes: Fall (3 sources) Fall; Translations: [Unspecified fall, initial encounter] Onset: 2 Episodic E Codes: Natural/environment (3 sources) Dog bite - wound; Translations: [Bitten by dog, initial encounter] Onset: 3 Episodic Gastritis and duodenitis (1 source) Acute gastritis; Translations: [Acute gastritis without bleeding] 06-06-2023 Episodic Glaucoma (1 source) Ocular hypertension, bilateral; Translations: [Raised intraocular pressure of both eyes] Onset: 3 Chronic Headache; including migraine (20 sources) Migraine with aura; Translations: [Migraine with aura, not intractable, without status migrainosus] Onset: 6 04-08-2016 Chronic Headache; including migraine (1 source) Headache; including migraine; Translations: [Acute nonintractable headache, unspecified headache type] Onset: 3 Immunity disorders (20 sources) Familial Mediterranean fever; 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] Onset: 0 05-08-2020 Chronic Immunizations and screening for infectious disease (5 sources) Encounter for immunization; Translations: [Need for prophylactic vaccination and inoculation against other viral diseases] Onset: 4 03-15-2024 Episodic Miscellaneous mental health disorders (20 sources) Neurocirculatory asthenia; Translations: [Other somatoform disorders] Onset: 4 05-31-2014 Chronic Mood disorders (20 sources) Depressive disorder; Translations: [Depression] Onset: 4 11-16-2013 Chronic Nausea and vomiting (20 sources) Vomiting; Translations: [Vomiting, unspecified] 09-17-2014 Episodic Nonspecific chest pain (5 sources) Symptom: chest wall; Translations: [Other chest pain] Onset: 3 Episodic Nutritional deficiencies (20 sources) Vitamin D deficiency; Translations: [Vitamin D deficiency, unspecified] Onset: 4 07-25-2014 Chronic Osteoarthritis (2 sources) Arthritis; Translations: [Unspecified osteoarthritis, unspecified site] 04-30-2024 Chronic Other and unspecified benign neoplasm (1 source) Benign neoplasm of skin of trunk; Translations: [Melanocytic nevi of trunk] Episodic Other bone disease and musculoskeletal deformities (3 sources) Costal chondritis; Translations: [Chondrocostal junction syndrome [Tietze]] Episodic Other connective tissue disease (1 source) Pain in left foot; Translations: [Pain in left foot] 08-05-2021 Episodic Other female genital disorders (1 source) Abnormal uterine bleeding; Translations: [Abnormal uterine and vaginal bleeding, unspecified] 01-17-2024 Chronic Other gastrointestinal disorders (1 source) Irritable bowel syndrome; Translations: [Mixed irritable bowel syndrome] Chronic Other gastrointestinal disorders (2 sources) Diarrhea; Translations: [Diarrhea, unspecified] 12-14-2023 Episodic Other injuries and conditions due to external causes (1 source) Closed injury of head; Translations: [Unspecified injury of head, initial encounter] Episodic Other injuries and conditions due to external causes (1 source) Abrasion; Translations: [Other injury of unspecified body region, initial encounter] Episodic Other injuries and conditions due to external causes (1 source) Injury of right ankle; Translations: [Unspecified injury of right ankle, initial encounter] Episodic Other injuries and conditions due to external causes (2 sources) Unspecified injury of right ankle, initial encounter; Translations: [Unspecified injury of right ankle, initial encounter] Onset: 2 Episodic Other injuries and conditions due to external causes (2 sources) Unspecified injury of head, initial encounter; Translations: [Unspecified injury of head, initial encounter] Onset: 2 Episodic Other injuries and conditions due to external causes (2 sources) Other injury of unspecified body region, initial encounter; Translations: [Other injury of unspecified body region, initial encounter] Onset: 2 Episodic Other lower respiratory disease (1 source) History of influenza; Translations: [Personal history of other diseases of the respiratory system] Episodic Other lower respiratory disease (1 source) Pleuritic pain; Translations: [Pleurodynia] Episodic Other lower respiratory disease (5 sources) Cough; Translations: [Cough, unspecified type] Episodic Other lower respiratory disease (1 source) Dyspnea; Translations: [Shortness of breath] Episodic Other lower respiratory disease (1 source) Wheezing; Translations: [Wheezing] Episodic Other nervous system disorders (1 source) Other chronic pain; Translations: [Chronic left shoulder pain] Onset: 4 Chronic Other nervous system disorders (1 source) Atypical facial pain; Translations: [Atypical facial pain] 08-21-2023 Episodic Other non-traumatic joint disorders (20 sources) Loose body in left ankle joint; Translations: [Loose body in left ankle] Onset: 2 09-29-2021 Chronic Other non-traumatic joint disorders (2 sources) Chronic pain of left upper limb; Translations: [Pain in left shoulder] 10-14-2023 Episodic Other non-traumatic joint disorders (2 sources) Hip pain; Translations: [Pain in right hip] 04-30-2024 Episodic Other non-traumatic joint disorders (2 sources) Pain in right knee; Translations: [Pain in joint, lower leg] 04-30-2024 Episodic Other non-traumatic joint disorders (1 source) Ankle pain; Translations: [Pain in left ankle and joints of left foot] 09-16-2021 Episodic Other non-traumatic joint disorders (1 source) Pain of left wrist; Translations: [Pain in left wrist] 01-07-2021 Episodic Other nutritional; endocrine; and metabolic disorders (20 sources) Body mass index 40+ - severely obese; Translations: [Morbid (severe) obesity due to excess calories] Onset: 6 05-08-2020 Chronic Other nutritional; endocrine; and metabolic disorders (4 sources) Morbid obesity; Translations: [Morbid (severe) obesity due to excess calories] Onset: 2 Chronic Other nutritional; endocrine; and metabolic disorders (4 sources) Severe obesity; Translations: [Morbid (severe) obesity due to excess calories] Chronic Other nutritional; endocrine; and metabolic disorders (2 sources) Morbid (severe) obesity due to excess calories; Translations: [Obesity, Class III, BMI 40-49.9 (morbid obesity) (HCC)] Onset: 0 Chronic Other nutritional; endocrine; and metabolic disorders (1 source) Body mass index (BMI) 50.0-59.9, adult; Translations: [Class 3 severe obesity due to excess calories with body mass index (BMI) of 50.0 to 59.9 in adult, unspecified whether serious comorbidity present (HCC)] Onset: 4 Chronic Other screening for suspected conditions (not mental disorders or infectious disease) (10 sources) Serum lipid levels - finding; Translations: [Other specified abnormal findings of blood chemistry] Onset: 3 Episodic Other upper respiratory disease (1 source) Allergic rhinitis due to pollen; Translations: [Allergic rhinitis due to pollen] 12-08-2023 Chronic Other upper respiratory infections (2 sources) Bacterial sinusitis; Translations: [Chronic sinusitis, unspecified] 12-14-2023 Chronic Other upper respiratory infections (4 sources) Acute upper respiratory infection, unspecified; Translations: [Sore throat symptom] Onset: 2 Episodic Otitis media and related conditions (1 source) Acute left otitis media; Translations: [Otitis media, unspecified, left ear] Episodic Poisoning by nonmedicinal substances (1 source) Accidental poisoning; Translations: [Toxic effect of latex, accidental (unintentional), subsequent encounter] 12-08-2023 Episodic Residual codes; unclassified (20 sources) Obstructive sleep apnea syndrome; Translations: [Obstructive sleep apnea (adult) (pediatric)] Onset: 6 03-10-2016 Chronic Residual codes; unclassified (1 source) Obstructive sleep apnea (adult) (pediatric); Translations: [MAXWELL (obstructive sleep apnea)] Onset: 6 Chronic Residual codes; unclassified (1 source) Treatment not available; Translations: [Procedure and treatment not carried out for other reasons] 04-18-2023 Episodic Residual codes; unclassified (1 source) Bilateral lower limb edema; Translations: [Localized edema] 01-02-2024 Episodic Screening and history of mental health and substance abuse codes (2 sources) History of eating disorder; Translations: [Personal history of other mental and behavioral disorders] Onset: 4 05-14-2024 Episodic Sexually transmitted infections (not HIV or hepatitis) (4 sources) Human papillomavirus deoxyribonucleic acid test positive, high risk on cervical specimen; Translations: [Cervical high risk human papillomavirus (HPV) DNA test positive] Onset: 4 02-27-2024 Episodic Superficial injury; contusion (3 sources) Contusion of scalp; Translations: [Contusion of scalp, initial encounter] Onset: 2 Episodic Unclassified (1 source) Acute cough; Translations: [Acute cough] Onset: 2 Unclassified (1 source) POTS (postural orthostatic tachycardia syndrome); Translations: [POTS (postural orthostatic tachycardia syndrome)] Onset: 2 Unclassified (1 source) Inappropriate sinus node tachycardia (HCC); Translations: [Inappropriate sinus node tachycardia (HCC)] Onset: 3 Unclassified (1 source) Inappropriate sinus node tachycardia; Translations: [Inappropriate sinus node tachycardia] Onset: 3 Urinary tract infections (1 source) Acute cystitis; Translations: [Acute cystitis without hematuria] 05-25-2023 Episodic Viral infection (1 source) Disease caused by 2019-nCoV; Translations: [COVID-19] Episodic Past or Other Problems Problem Classification Problem Date Documented Da te Episodic/Chronic Asthma (20 sources) Exacerbation of moderate persistent asthma; Translations: [Moderate persistent asthma with (acute) exacerbation] Resolved: 03-10-2021 Chronic Blindness and vision defects (20 sources) Diplopia; Translations: [Diplopia] Onset: 12-25-2015 12-25-2015 Episodic Fever of unknown origin (3 sources) Fever; Translations: [Fever, unspecified] Onset: 06-06-2023 06-06-2023 Episodic Fracture of lower limb (20 sources) Closed fracture of navicular bone of foot; Translations: [Nondisplaced fracture of navicular [scaphoid] of left foot, initial encounter for closed fracture] Onset: 09-29-2021 09-29-2021 Episodic Intracranial injury (3 sources) Concussion with no loss of consciousness; Translations: [Concussion without loss of consciousness, subsequent encounter] Onset: 05-05-2022 Episodic Mood disorders (5 sources) Mood disorders Onset: 04-16-2022 Resolved: 05-05-2022 04-16-2022 Neoplasms of unspecified nature or uncertain behavior (20 sources) Thrombocytosis; Translations: [Thrombocytosis] Onset: 09-01-2016 09-01-2016 Episodic Other aftercare (1 source) Other [facility] (current) drug therapy; Translations: [Encounter for long-term current use of medication] Onset: 02-09-2024 Episodic Other connective tissue disease (20 sources) Fibromyalgia; Translations: [Fibromyalgia] Onset: 11-15-2013 11-15-2013 Episodic Other connective tissue disease (1 source) Fibromyalgia; Translations: [Fibromyalgia] Onset: 11-15-2013 Episodic Other infections; including parasitic (20 sources) Relapsing fever; 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, unspecified] Onset: 05-01-2018 05-01-2018 Episodic Other infections; including parasitic (20 sources) Tick-borne relapsing fever; 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, unspecified] Onset: 05-01-2018 05-01-2018 Episodic Other infections; including parasitic (20 sources) Pattern of fever - finding; 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, unspecified] Onset: 05-01-2018 05-01-2018 Episodic Other nervous system disorders (20 sources) Numbness and tingling sensation of skin; Translations: [Anesthesia of skin] Onset: 12-25-2015 12-25-2015 Episodic Other nervous system disorders (20 sources) Tremor; Translations: [Tremor, unspecified] Onset: 12-25-2015 12-25-2015 Episodic Other nervous system disorders (20 sources) Muscle twitch; Translations: [Fasciculation] Onset: 04-06-2016 04-06-2016 Episodic Other nervous system disorders (1 source) Atypical facial pain; Translations: [Atypical face pain] Onset: 08-22-2023 Episodic Other non-traumatic joint disorders (20 sources) Multiple joint pain; Translations: [Pain in unspecified joint] Onset: 05-08-2020 05-08-2020 Episodic Other non-traumatic joint disorders (20 sources) Acute ankle pain; Translations: [Pain in left ankle and joints of left foot] Onset: 09-29-2021 09-29-2021 Episodic Other non-traumatic joint disorders (20 sources) Chronic ankle pain; Translations: [Pain in left ankle and joints of left foot] Onset: 11-10-2021 11-10-2021 Episodic Other non-traumatic joint disorders (2 sources) Pain in left shoulder; Translations: [Pain in joint, shoulder region] Onset: 10-14-2023 01-07-2021 Episodic Rheumatoid arthritis and related disease (20 sources) Systemic onset juvenile chronic arthritis; Translations: [Juvenile rheumatoid arthritis with systemic onset, unspecified site] Onset: 05-31-2023 Resolved: 11-15-2013 04-06-2023 Chronic Spondylosis; intervertebral disc disorders; other back problems (20 sources) Chronic low back pain; Translations: [Chronic midline low back pain without sciatica] Onset: 05-08-2020 05-08-2020 Episodic Sprains and strains (20 sources) Lumbar sprain; Translations: [Sprain of ligaments of lumbar spine, initial encounter] Onset: 12-27-2013 12-27-2013 Episodic Unclassified (1 source) Acute cough; Translations: [Acute cough] Onset: 05-26-2022 Results Test Name Value Interpretation Reference Range Facil ity CNCNPATEDon 05-14-2024 CNCNPATED Normal [facility] CNPNon 05-04-2024 CNPN Normal [facility] CNPNon 04-30-2024 CNPN Normal [facility] CNOVon 04-03-2024 CNOV Normal [facility] CNPNon 04-03-2024 CNPN Normal [facility] ALT SerPl-cCncon 04-02-2024 ALT [Catalytic activity/Vol] 34 U/L Normal 7-38 [facility] Comment on above: Order Comment: Speci men Type: BLOOD SPECIMENOrdering Facility: [facility] Address: [address] [place] [address] Performed By: #### C RET1, 1920-03, 2157-01, 1987-12, 1742-01 ####[facility] LABCLIA [id number] [place] [address] [place] AST SerPl-cCncon 04-02-2024 AST [Catalytic activity/Vol] 28 U/L Normal 13-35 [facility] Comment on above: Order Comment: Speci men Type: BLOOD SPECIMENOrdering Facility: [facility] Address: [address] [place] [address] Performed By: #### C RET1, 1920-03, 2157-01, 1987-12, 1742-01 ####[facility] LABCLIA [id number] [place] [address] [place] Aldolase SerPl-cCncon 2023 Aldolase [Catalytic activity/Vol] 3.4 mU/mL Normal 1.5-8.1 [facility] Comment on above: Order Comment: Speci men Type: BLOOD SPECIMENOrdering Facility: [facility] Address: [address] [place] [address] Result Comment: This test was developed and its performance characteristics determined by [facility]'s Guillaume [facility] [place] (-[facility]). It has not been cleared or approved by the FDA. [facility] is regulated under CLIA as qualified to perform high-complexity testing. This test is used for clinical purposes. It should not be regarded as investigational or for research. Performed By: #### 1 761-6 ####[facility] LABCLIA [id number] [place] [address] [place] BUN SerPl-mCncon 04-02-2024 Urea nitrogen [Mass/Vol] 10 mg/dL Normal 7-21 [facility] Comment on above: Order Comment: Speci men Type: BLOOD SPECIMENOrdering Facility: [facility] Address: [address] [place] [address] Performed By: #### 3 094-0 ####[facility] LABCLIA [id number] [facility] [id number] [address] [place] CBC W Auto Differential pane l (Bld)on 04-02-2024 Basophils (Bld) [#/Vol] 0.05 10*3/uL [facility] Basophils/100 WBC (Bld) 0.6 % [facility] Differential cell count method Nom (Bld) Auto [facility] Eosinophils (Bld) [#/Vol] 0.14 10*3/uL [facility] Eosinophils/100 WBC (Bld) 1.6 % [facility] Erythrocyte distribution width (RBC) [Ratio] 12.4 % 11.5 - 15.0 % [facility] Hematocrit (Bld) [Volume fraction] 41.7 % 36.0 - 46.0 % [facility] Hemoglobin (Bld) [Mass/Vol] 13.6 g/dL 11.5 - 15.5 g/dL [facility] Immature granulocytes (Bld) [#/Vol] 0.04 10*3/uL [facility] Immature granulocytes/100 WBC (Bld) 0.5 % [facility] Interpretation and review of laboratory results Abnormal [facility] Lymphocytes (Bld) [#/Vol] 2.86 10*3/uL [facility] Lymphocytes/100 WBC (Bld) 32.6 % [facility] MCH (RBC) [Entitic mass] 31.8 pg 26.0 - 34.0 pg [facility] MCHC (RBC) [Mass/Vol] 32.6 g/dL 30.5 - 36.0 g/ dL [facility] MCV (RBC) [Entitic vol] 97.4 fL 80.0 - 100.0 fL [facility] Monocytes (Bld) [#/Vol] 0.65 10*3/uL [facility] Monocytes/100 WBC (Bld) 7.4 % [facility] Neutrophils (Bld) [#/Vol] 5.03 10*3/uL [facility] Neutrophils/100 WBC (Bld) 57.3 % [facility] Nucleated RBC (Bld) [#/Vol] NINF [facility] Nucleated RBC/100 WBC (Bld) [Ratio] 0.0 % /100 WBC [facility] Platelet mean volume (Bld) [Entitic vol] 10.2 fL 9.0 - 12.7 fL [facility] Platelets (Bld) [#/Vol] 423 10*3/uL High [facility] RBC (Bld) [#/Vol] 4.28 10*6/uL 3.90 - 5.20 m/uL [facility] WBC (Bld) [#/Vol] 8.77 10*3/uL [facility] Basophils (Bld) [#/Vol] 0.05 10*3/uL Normal <0.11 [facility] Comment on above: Order Comment: Speci men Type: BLOOD SPECIMENOrdering Facility: [facility] Address: [address] [place] [address] Performed By: #### 4 537-7, 18626-9 ####[facility] LABCLIA [id number] [place] [address] [place] Basophils/100 WBC (Bld) 0.6 % Normal [facility] Comment on above: Order Comment: Speci men Type: BLOOD SPECIMENOrdering Facility: [facility] Address: [address] [place] [address] Performed By: #### 4 537-7, 87626-8 ####[facility] LABCLIA [id number] [place] [address] [place] Differential cell count method Nom (Bld) Auto Normal [facility] Comment on above: Order Comment: Speci men Type: BLOOD SPECIMENOrdering Facility: [facility] Address: [address] [place] [address] Performed By: #### 4 537-7, 71109-9 ####[facility] LABCLIA [id number] [place] [address] [place] Eosinophils (Bld) [#/Vol] 0.14 10*3/uL Normal <0.46 [facility] Comment on above: Order Comment: Speci men Type: BLOOD SPECIMENOrdering Facility: [facility] Address: [address] [place] [address] Performed By: #### 4 537-7, 19611-1 ####[facility] LABCLIA [id number] [place] [address] [place] Eosinophils/100 WBC (Bld) 1.6 % Normal [facility] Comment on above: Order Comment: Speci men Type: BLOOD SPECIMENOrdering Facility: [facility] Address: [address] [place] [address] Performed By: #### 4 537-7, 31382-3 ####[facility] LABIA [id number] [place] [address] [place] Erythrocyte distribution width (RBC) [Ratio] 12.4 % Normal 11.5-15.0 [facility] Comment on above: Order Comment: Speci men Type: BLOOD SPECIMENOrdering Facility: [facility] Address: [address] [place] [address] Performed By: #### 4 537-7, 49965-9 ####[facility] LABIA [id number] [place] [address] [place] Hematocrit (Bld) [Volume fraction] 41.7 % Normal 36.0-46.0 [facility] Comment on above: Order Comment: Speci men Type: BLOOD SPECIMENOrdering Facility: [facility] Address: [address] [place] [address] Performed By: #### 4 537-7, 74930-4 ####[facility] LABIA [id number] [place] [address] [place] Hemoglobin (Bld) [Mass/Vol] 13.6 g/dL Normal 11.5-15.5 [facility] Comment on above: Order Comment: Speci men Type: BLOOD SPECIMENOrdering Facility: [facility] Address: [address] [place] [address] Performed By: #### 4 537-7, 60313-4 ####[facility] LABCLIA [id number] [place] [address] [place] Immature granulocytes (Bld) [#/Vol] 0.04 10*3/uL Normal <0.10 [facility] Comment on above: Order Comment: Speci men Type: BLOOD SPECIMENOrdering Facility: [facility] Address: [address] [place] [address] Performed By: #### 4 537-7, 41503-9 ####[facility] LABCLIA [id number] [place] [address] [place] Immature granulocytes/100 WBC (Bld) 0.5 % Normal [facility] Comment on above: Order Comment: Speci men Type: BLOOD SPECIMENOrdering Facility: [facility] Address: [address] [place] [address] Performed By: #### 4 537-7, 33012-0 ####[facility] LABCLIA [id number] [place] [address] [place] Lymphocytes (Bld) [#/Vol] 2.86 10*3/uL Normal 1.00-4.00 [facility] Comment on above: Order Comment: Speci men Type: BLOOD SPECIMENOrdering Facility: [facility] Address: [address] [place] [address] Performed By: #### 4 537-7, 18431-8 ####[facility] LABCLIA [id number] [place] [address] [place] Lymphocytes/100 WBC (Bld) 32.6 % Normal [facility] Comment on above: Order Comment: Speci men Type: BLOOD SPECIMENOrdering Facility: [facility] Address: [address] [place] [address] Performed By: #### 4 537-7, 95011-6 ####[facility] LABCLIA [id number] [place] [address] [place] MCH (RBC) [Entitic mass] 31.8 pg Normal 26.0-34.0 [facility] Comment on above: Order Comment: Speci men Type: BLOOD SPECIMENOrdering Facility: [facility] Address: [address] [place] [address] Performed By: #### 4 537-7, 89277-8 ####[facility] LABIA [id number] [place] [address] [place] MCHC (RBC) [Mass/Vol] 32.6 g/dL Normal 30.5-36.0 [facility] Comment on above: Order Comment: Speci men Type: BLOOD SPECIMENOrdering Facility: [facility] Address: [address] [place] [address] Performed By: #### 4 537-7, 04465-0 ####[facility] [id number] [place] [address] [place] MCV (RBC) [Entitic vol] 97.4 fL Normal 80.0-100.0 [facility] Comment on above: Order Comment: Speci men Type: BLOOD SPECIMENOrdering Facility: [facility] Address: [address] [place] [address] Performed By: #### 4 537-7, 83092-2 ####[facility] LABIA [id number] [place] [address] [place] Monocytes (Bld) [#/Vol] 0.65 10*3/uL Normal <0.87 [facility] Comment on above: Order Comment: Speci men Type: BLOOD SPECIMENOrdering Facility: [facility] Address: [address] [place] [address] Performed By: #### 4 537-7, 21653-7 ####[facility] LABIA [id number] [place] [address] [place] Monocytes/100 WBC (Bld) 7.4 % Normal [facility] Comment on above: Order Comment: Speci men Type: BLOOD SPECIMENOrdering Facility: [facility] Address: [address] [place] [address] Performed By: #### 4 537-7, 05938-8 ####[facility] LABCLIA [id number] [place] [address] [place] Neutrophils (Bld) [#/Vol] 5.03 10*3/uL Normal 1.45-7.50 [facility] Comment on above: Order Comment: Speci men Type: BLOOD SPECIMENOrdering Facility: [facility] Address: [address] [place] [address] Performed By: #### 4 537-7, 71707-0 ####[facility] LABCLIA [id number] [place] [address] [place] Neutrophils/100 WBC (Bld) 57.3 % Normal [facility] Comment on above: Order Comment: Speci men Type: BLOOD SPECIMENOrdering Facility: [facility] Address: [address] [place] [address] Performed By: #### 4 537-7, 66442-7 ####[facility] LABCLIA [id number] [place] [address] [place] Nucleated RBC (Bld) [#/Vol] 10*3/uL Normal <0.01 [facility] Comment on above: Order Comment: Speci men Type: BLOOD SPECIMENOrdering Facility: [facility] Address: [address] [place] [address] Performed By: #### 4 537-7, 62012-4 ####[facility] LABCLIA [id number] [place] [address] [place] Nucleated RBC/100 WBC (Bld) [Ratio] 0.0 /100 WBC Normal [facility] Comment on above: Order Comment: Speci men Type: BLOOD SPECIMENOrdering Facility: [facility] Address: [address] [place] [address] Performed By: #### 4 537-7, 40650-4 ####[facility] LABCLIA [id number] [place] [address] [place] Platelet mean volume (Bld) [Entitic vol] 10.2 fL Normal 9.0-12.7 [facility] Comment on above: Order Comment: Speci men Type: BLOOD SPECIMENOrdering Facility: [facility] Address: [address] [place] [address] Performed By: #### 4 537-7, 41832-2 ####[facility] LABCLIA [id number] [place] [address] [place] Platelets (Bld) [#/Vol] 423 10*3/uL High 150-400 [facility] Comment on above: Order Comment: Speci men Type: BLOOD SPECIMENOrdering Facility: [facility] Address: [address] [place] [address] Performed By: #### 4 537-7, 75224-1 ####[facility] LABCLIA [id number] [place] [address] [place] RBC (Bld) [#/Vol] 4.28 10*6/uL Normal 3.90-5.20 [facility] Comment on above: Order Comment: Speci men Type: BLOOD SPECIMENOrdering Facility: [facility] Address: [address] [place] [address] Performed By: #### 4 537-7, 29910-5 ####[facility] LABCLIA [id number] [place] [address] [place] WBC (Bld) [#/Vol] 8.77 10*3/uL Normal 3.70-11.00 [facility] Comment on above: Order Comment: Speci men Type: BLOOD SPECIMENOrdering Facility: [facility] Address: [address] [place] [address] Performed By: #### 4 537-7, 26493-5 ####[facility] LABIA [id number] [place] [address] [place] CK SerPl-cCncon 04-02-2024 CK [Catalytic activity/Vol] 31 U/L Low 42-196 [facility] Comment on above: Order Comment: Speci men Type: BLOOD SPECIMENOrdering Facility: [facility] Address: [address] [place] [address] Performed By: #### C RET1, 1920-03, 2157-01, 1987-12, 1742-01 ####[facility] LABIA [id number] [place] [address] [place] CREATININE BLDon 04-02-2024 Creatinine [Mass/Vol] 0.58 mg/dL Normal 0.58-0.96 [facility] Comment on above: Order Comment: Speci men Type: BLOOD SPECIMENOrdering Facility: [facility] Address: [address] [place] [address] Performed By: #### C RET1, 1920-03, 2157-01, 1987-12, 1742-01 ####[facility] [id number] [place] [address] [place] Creatinine and Glomerular filtration rate.predicted panel (S/P/Bld) 124 mL/min/1.73m??? Normal >=60 [facility] Comment on above: Order Comment: Speci men Type: BLOOD SPECIMENOrdering Facility: [facility] Address: [address] [place] [address] Result Comment: Imelda mated Glomerular Filtration Rate (eGFR) is calculated using the 2020 CKD-EPI creatinine equation. This equation utilizes serum creatinine, sex, and age as parameters. The creatinine assay has traceable calibration to isotope dilution-mass spectrometry. Refer to KDIGO guidelines for clinical interpretation. In patients with unstable renal function, e.g. those with acute kidney injury, the eGFR may not accurately reflect actual GFR. Performed By: #### C RET1, 1920-03, 2157-01, 1987-12, 1742-01 ####[facility] LABCLIA [id number] [place] [address] [place] CRP SerPl-mCncon 04-02-2024 CRP [Mass/Vol] mg/L Normal <0.9 [facility] Comment on above: Order Comment: Speci men Type: BLOOD SPECIMENOrdering Facility: [facility] Address: [address] [address] Performed By: #### C RET1, 1920-03, 2157-01, 1987-12, 1742-01 ####[facility] LABCLIA [id number] [place] [address] [place] ESR Westergren method (Bld) [Velocity]on 04-02-2024 ESR (Bld) [Velocity] 8 mm/h Normal 0-20 [facility] Comment on above: Order Comment: Speci men Type: BLOOD SPECIMENOrdering Facility: [facility] Address: [address] [place] [address] Performed By: #### 4 537-7, 09357-6 ####[facility] LABIA [id number] [place] [address] [place] Urinalysis complete panel (U )on 04-02-2024 Bacteria LM.HPF (Urine sed) [#/Area] Negative Normal Negative [facility] Comment on above: Order Comment: Speci men Type: URINE SPECIMENOrdering Facility: [facility] Address: [address] [place] [address] Performed By: #### 2 4356-8 ####[facility] LABIA [id number] [place] [address] [place] Bilirubin Ql (U) Negative Normal Negative [facility] Comment on above: Order Comment: Speci men Type: URINE SPECIMENOrdering Facility: [facility] Address: [address] [place] [address] Performed By: #### 2 4356-8 ####[facility] LABCLIA [id number] [place] [address] [place] Clarity (Unsp spec) Clear Normal Clear [facility] Comment on above: Order Comment: Speci men Type: URINE SPECIMENOrdering Facility: [facility] Address: [address] [place] [address] Performed By: #### 2 4356-8 ####[facility] LABCLIA [id number] [place] [address] [place] Color (U) Yellow Normal Yellow [facility] Comment on above: Order Comment: Speci men Type: URINE SPECIMENOrdering Facility: [facility] Address: [address] [address] Performed By: #### 2 4356-8 ####[facility] LABIA [id number] [place] [address] [place] Epithelial cells LM.HPF (Urine sed) [#/Area] None Seen Normal [facility] Comment on above: Order Comment: Speci men Type: URINE SPECIMENOrdering Facility: [facility] Address: [address] [place] [address] Performed By: #### 2 4356-8 ####[facility] LABCLIA [id number] [place] [address] [place] Glucose Test strip (U) [Mass/Vol] Negative Normal Negative [facility] Comment on above: Order Comment: Speci men Type: URINE SPECIMENOrdering Facility: [facility] Address: [address] [place] [address] Performed By: #### 2 4356-8 ####[facility] LABCLIA [id number] [place] [address] [place] Hemoglobin Ql (U) Negative Normal Negative [facility] Comment on above: Order Comment: Speci men Type: URINE SPECIMENOrdering Facility: [facility] Address: [address] [place] [id number] Performed By: #### 2 4356-8 ####[facility] LABCLIA [id number] [place] [id number] [place] Hyaline casts (Urine sed) [#/Area] 0 /[LPF] Normal 0 /LPF [facility] Comment on above: Order Comment: Speci men Type: URINE SPECIMENOrdering Facility: [facility] Address: [address] [place] [address] Performed By: #### 2 4356-8 ####[facility] LABCLIA [id number] [place] [address] [place] Ketones Ql (U) Negative Normal Negative [facility] Comment on above: Order Comment: Speci men Type: URINE SPECIMENOrdering Facility: [facility] Address: [address] [place] [address] Performed By: #### 2 4356-8 ####[facility] LABCLIA [id number] [place] [address] [place] Leukocyte esterase Test strip Ql (U) Negative Normal Negative [facility] Comment on above: Order Comment: Speci men Type: URINE SPECIMENOrdering Facility: [facility] Address: [address] [place] [address] Performed By: #### 2 4356-8 ####[facility] LABCLIA [id number] [place] [id number] [place] Nitrite Ql (U) Negative Normal Negative [facility] Comment on above: Order Comment: Speci men Type: URINE SPECIMENOrdering Facility: [facility] Address: [address] [place] [address] Performed By: #### 2 4356-8 ####[facility] LABCLIA [id number] [place] [address] [place] pH (U) 6.0 [pH] Normal <8.5 [facility] Comment on above: Order Comment: Speci men Type: URINE SPECIMENOrdering Facility: [facility] Address: [address] [place] [address] Performed By: #### 2 4356-8 ####[facility] LABIA [id number] [place] [address] [place] Protein (U) [Mass/Vol] Negative Normal Negative [facility] Comment on above: Order Comment: Speci men Type: URINE SPECIMENOrdering Facility: [facility] Address: [address] [place] [address] Performed By: #### 2 4356-8 ####[facility] LABIA [id number] [place] [address] [place] RBC LM.HPF (Urine sed) [#/Area] 0-2 /HPF Normal 0-2 /HPF [facility] Comment on above: Order Comment: Speci men Type: URINE SPECIMENOrdering Facility: [facility] Address: [address] [place] [address] Performed By: #### 2 4356-8 ####[facility] [id number] [place] [address] [place] Specific gravity (U) [Rel density] 1.010 Normal 1.005-1.030 [facility] Comment on above: Order Comment: Speci men Type: URINE SPECIMENOrdering Facility: [facility] Address: [address] [address] Performed By: #### 2 4356-8 ####[facility] LABIA [id number] [place] [address] [place] Urobilinogen Ql (U) 0.2 EU/dL Normal 0.2-1.0 EU/dL [facility] Comment on above: Order Comment: Speci men Type: URINE SPECIMENOrdering Facility: [facility] Address: [address] [id number] Performed By: #### 2 4356-8 ####[facility] LABIA [id number] [place] [address] [place] WBC LM.HPF (Urine sed) [#/Area] 0-5 /HPF Normal 0-5 /HPF [facility] Comment on above: Order Comment: Speci men Type: URINE SPECIMENOrdering Facility: [facility] Address: [address] [place] [address] Performed By: #### 2 4356-8 ####[facility] LABIA [id number] [place] [address] [place] XR CHEST 2V FRONTAL/LATon XR CHEST 2V FRONTAL/LAT Normal [facility] XR Chest PA and Lateralon IMPRESSION: No acute radiographic abnormality. Veneer Glue Spreader: REUBEN Transcribe Date/Time: Apr 02 2024 3:48P Dictated by : LOU JUARES MD This examination was interpreted and the report reviewed and electronically signed by: LOU JUARES MD on Apr 02 2024 3:49PM [facility] DIVISION OF RADIOLOGY * * *Final Report* * * DATE OF EXAM: Apr 02 2024 1:35PM WOX [id number] - XR CHEST 2V FRONTAL/LAT / PROCEDURE REASON: multiple diagnoses * * * * Physician Interpretation * * * * EXAMINATION: CHEST RADIOGRAPH (2 VIEW FRONTAL & LATERAL) CLINICAL HISTORY: SO-JILLIAN (systemic onset juvenile idiopathic arthritis) (HCC) Chest pain, unspecified type MQ: XC2_6 EXAM DATE/TIME: 04/02/2024 1:35 PM COMPARISON: Chest x-ray on 06/06/2023 RESULT: Lines, tubes, and devices: None. Lungs and pleura: No consolidation. No lung mass. No pleural effusion. No pneumothorax. Cardiomediastinal silhouette: Normal cardiomediastinal silhouette. Bones and soft tissues: Unremarkable. DIVISION OF RADIOLOGY Provider, [facility] - 04/02/2024 * * *Final Report* * * DATE OF EXAM: Apr 02 2024 1:35PM WOX 5291 - XR CHEST 2V FRONTAL/LAT / PROCEDURE REASON: multiple diagnoses * * * * Physician Interpretation * * * * EXAMINATION: CHEST RADIOGRAPH (2 VIEW FRONTAL & LATERAL) CLINICAL HISTORY: SO-JILLIAN (systemic onset juvenile idiopathic arthritis) (HCC) Chest pain, unspecified type MQ: XC2_6 EXAM DATE/TIME: 04/02/2024 1:35 PM COMPARISON: Chest x-ray on 06/06/2023 RESULT: Lines, tubes, and devices: None. Lungs and pleura: No consolidation. No lung mass. No pleural effusion. No pneumothorax. Cardiomediastinal silhouette: Normal cardiomediastinal silhouette. Bones and soft tissues: Unremarkable. IMPRESSION IMPRESSION: No acute radiographic abnormality. Veneer Glue Spreader: REUBEN Transcribe Date/Time: Apr 02 2024 3:48P Dictated by : LOU JUARES MD This examination was interpreted and the report reviewed and electronically signed by: LOU JUARES MD on Apr 02 2024 3:49PM EST [facility] Radiology Study observation (narrative) [facility] XR Chest PA and LateralOrder ed By: Ccf Provider on 04-02-2024 [facility] CNNURSEon 03-29-2024 CNNURSE Normal [facility] CNPNon 03-29-2024 CNPN Normal [facility] CNOVon 03-15-2024 CNOV Normal [facility] SURGICAL PATHOLOGYon 024 CASE REPORT Normal [facility] Comment on above: Order Comment: Speci men Type: TISSUE SPECIMENOrdering Facility: [facility] Address: [address] [place] [address] Result Comment: Surg [facility] Pathology Report Case: [id number] Provider: Flora Jenkins MD Collected: 03/15/2024 10:31 AMOrdering Location: OB/Gynecology Received: 03/15/2024 11:41 AMPathologist: [place] MDSpecimens: A) - Cervix, Biopsy, 12 oclock B) - Endocervix, Curettings Performed By: #### S ####[facility] LABCLIA [id number] [place] [address] [place] CLINICAL HISTORY hpv pos Normal [facility] Comment on above: Order Comment: Speci men Type: TISSUE SPECIMENOrdering Facility: [facility] Address: [address] [place] [address] Performed By: #### S ####[facility] LABCLIA [id number] [place] [address] [place] FINAL DIAGNOSIS Normal [facility] Comment on above: Order Comment: Speci men Type: TISSUE SPECIMENOrdering Facility: [facility] Address: [address] [place] [address] Result Comment: A. C ervix, biopsy at 12:00:- Benign ectocervix.B. Endocervix, curettings:- Benign endocervical epithelium.ACV/mm/03/16/2024 Performed By: #### S ####[facility] LABCLIA [id number] [place] [address] [place] FINAL PERFORMING LAB Normal [facility] Comment on above: Order Comment: Speci men Type: TISSUE SPECIMENOrdering Facility: [facility] Address: [address] [place] [address] Result Comment: Diag nostic interpretation performed at [facility], [address] [place] [address] CLIA# [id number] Director: Nito Chamberlain M.D. Performed By: #### S ####[facility] LABCLIA [id number] [place] [address] [place] GROSS DESCRIPTION Normal [facility] Comment on above: Order Comment: Speci men Type: TISSUE SPECIMENOrdering Facility: [facility] Address: [address] [place] [address] Result Comment: A. C ervix, BiopsyReceived in formalin is one piece of salazar, soft mucosal covered tissue measuring 0.7 x 0.5 x 0.3 cm. Totally submitted in one cassette.B. Endocervix, CurettingsReceived in formalin are multiple salazar-white, soft feathery segments of tissue aggregating to 0.5 x 0.3 by less than 0.1 cm. Totally submitted in one cassette.Gross examination performed at [facility], [address] [place] [id number] 03/15/2024 10:36 PM Performed By: #### S ####[facility] LABIA [id number] [place] [address] [place] UA DIP,URINE HCG (POC)on Beta HCG ( test) Ql (U) Negative Negative [facility] Comment on above: Location:[facility], [address], [place], [address] Risk Control Field Representative (POCT) Internal QC [place] [facility] Location:[facility], [address], [place], [address] [facility] CNOVon 03-12-2024 CNOV Normal [facility] CNPNon 03-12-2024 CNPN Normal [facility] CNOVon 02-27-2024 CNOV Normal [facility] HIGH RISK HUMAN PAPILLOMA LEYDA (HPV), PCR FOR DETECTION AND GENOTYPINGon 02-27-2024 HPV 16 Ag Ql (Unsp spec) Not detected Normal Not detected [facility] Comment on above: Order Comment: Speci men Type: FLUID SPECIMENOrdering Facility: [facility] Address: [address] [place] [address] Performed By: #### H PVHRT, [id number] ####[facility] LABIA [id number] [place] [address] [place] HPV 18 Ag Ql (Unsp spec) Not detected Normal Not detected [facility] Comment on above: Order Comment: Speci men Type: FLUID SPECIMENOrdering Facility: [facility] Address: [address] [place] [address] Performed By: #### H PVHRT, [id number] ####[facility] LABCLIA [id number] [place] [address] [place] HPV 31+33+35+39+45+51+52+ 56+58+59+66+68 DNA JOSSIE+probe Ql (Cvx) Detected Abnormal Not detected [facility] Comment on above: Order Comment: Speci men Type: FLUID SPECIMENOrdering Facility: [facility] Address: [address] [place] [address] Result Comment: High Risk HPV Other Type includes HPV types 31, 33, 35, 39, 45, 51, 52, 56, 58, 59, 66 and 68. Performed By: #### H PVHRT, [id number] ####[facility] LABCLIA [id number] [place] [address] [place] PAP TESTon 02-27-2024 ADEQUACY Satisfactory for interpretation. Normal [facility] Comment on above: Order Comment: Speci men Type: FLUID SPECIMENOrdering Facility: [facility] Address: [address] [place] [address] Performed By: #### H PVHRT, [id number] ####[facility] LABCLIA [id number] [address] [place] CASE REPORT Normal [facility] Comment on above: Order Comment: Speci men Type: FLUID SPECIMENOrdering Facility: [facility] Address: [address] [place] [address] Result Comment: Gyne cologic Cytology Report Case: [id number] Provider: Francoise Rowley APRN.CNM Collected: 02/27/2024 03:56 PMOrdering Location: OB/Gynecology Received: 02/27/2024 04:47 PMFirst Screen: Gladkaya, Yesenia, CT, ASCPRescreen: Autumn Beck LSpecimen: Pap Test, ThinPrep, Cervix Performed By: #### H PVHRT, [id number] ####[facility] LABCLIA [id number] [place] [address] [place] CLINICAL HISTORY, CYTOLOGY, DIRECTOR OF CASEWORK Positive Normal [facility] Comment on above: Order Comment: Speci men Type: FLUID SPECIMENOrdering Facility: [facility] Address: [address] [place] [address] Result Comment: Intr a Uterine Device, No Menses Performed By: #### H PVHRT, [id number] ####[facility] LABCLIA [id number] [place] [address] [place] FINAL PERFORMING LAB Normal [facility] Comment on above: Order Comment: Speci men Type: FLUID SPECIMENOrdering Facility: [facility] Address: [address] [place] [address] Result Comment: Tech nical component, environmental services manager screening performed at [facility], [address] [place] [address] CLIA# [id number] interpretation performed at [facility], [address] [place] [address] CLIA# [id number] Director: Nito Chamberlain M.D. Performed By: #### H PVHRT, [id number] ####[facility] LABCLIA [id number] [place] [address] [place] HPV REFLEX Yes HPV Normal [facility] Comment on above: Order Comment: Speci men Type: FLUID SPECIMENOrdering Facility: [facility] Address: [address] [place] [address] Performed By: #### H PVHRT, [id number] ####[facility] LABCLIA [id number] [place] [address] [place] INTERPRETATION, CYTOLOGY, DIRECTOR OF CASEWORK Normal [facility] Comment on above: Order Comment: Speci men Type: FLUID SPECIMENOrdering Facility: [facility] Address: [address] [place] [address] Result Comment: Nega tive for intraepithelial lesion or malignancy. Performed By: #### H PVHRT, [id number] ####[facility] LABCLIA [id number] [place] [address] [place] PAP DISCLAIMER COMMENT The Pap Smear is a screening test for cervical cancer. False negative results occur with all screening tests, emphasizing the need for rescreening at recommended intervals, and clinical correlation. Normal [facility] Comment on above: Order Comment: Speci men Type: FLUID SPECIMENOrdering Facility: [facility] Address: [address] [place] [address] Performed By: #### H PVHRT, [id number] ####[facility] LABCLIA [id number] [place] [address] [place] PAP SUPERVISOR WATER TREATMENT PLANT COMMENT Normal [facility] Comment on above: Order Comment: Speci men Type: FLUID SPECIMENOrdering Facility: [facility] Address: [address] [place] [address] Performed By: #### H PVHRT, [id number] ####[facility] LABCLIA [id number] [place] [address] [place] 25(OH)D3 SerPl-ncon 2023 25-hydroxyvitamin D3 [Mass/Vol] 18.0 ng/mL Low 31.0-80.0 [facility] Comment on above: Order Comment: Speci men Type: BLOOD SPECIMENOrdering Facility: [facility] Address: [address] [place] [address] Result Comment: Clas sification of 25 [place] Vitamin D status:Deficiency/Insufficiency: < or = 30 ng/ml.Sufficiency/Optimal Levels: 31-80 ng/mLToxicity: > 100 ng/mL.Test performed by chemiluminescent immunoassay. Performed By: #### 1 989-3 ####[facility] LABCLIA [id number] [place] [address] [place] ALGN KIWI IGEon 02-09-2024 Kiwifruit IgE Qn (S) <0.35 Normal <0.35 [facility] Comment on above: Order Comment: Speci men Type: BLOOD SPECIMENOrdering Facility: [facility] Address: [address] [place] [address] Performed By: #### 6 035-0, KIWI, LATEXA ####[facility] LABCLIA [id number] [place] [address] [place] Kiwifruit IgE RAST class (S) Class 0 Normal Class 0 [facility] Comment on above: Order Comment: Speci men Type: BLOOD SPECIMENOrdering Facility: [facility] Address: [address] [place] [address] Performed By: #### 6 035-0, KIWI, LATEXA ####[facility] LABCLIA [id number] [place] [address] [place] ALGN LATEX IGEon 02-09-2024 Latex IgE Qn (S) <0.35 Normal <0.35 [facility] Comment on above: Order Comment: Speci men Type: BLOOD SPECIMENOrdering Facility: [facility] Address: [address] [place] [address] Performed By: #### 6 035-0, KIWI, LATEXA ####[facility] LABCLIA [id number] [place] [address] [place] Latex IgE RAST class (S) Class 0 Normal Class 0 [facility] Comment on above: Order Comment: Speci men Type: BLOOD SPECIMENOrdering Facility: [facility] Address: [address] [place] [address] Performed By: #### 6 035-0, KIWI, LATEXA ####[facility] LABCLIA [id number] [place] [address] [place] ALT SerPl-cCncon 02-09-2024 ALT [Catalytic activity/Vol] 30 U/L Normal 7-38 [facility] Comment on above: Order Comment: Speci men Type: BLOOD SPECIMENOrdering Facility: [facility] Address: [address] [place] [address] Performed By: #### 2 4321-2, 3024-7, 3051-0, 1742-6 ####[facility] LABCLIA [id number] [place] [address] [place] AST SerPl-cCncon 02-09-2024 AST [Catalytic activity/Vol] 31 U/L Normal 13-35 [facility] Comment on above: Order Comment: Speci men Type: BLOOD SPECIMENOrdering Facility: [facility] Address: [address] [place] [address] Performed By: #### 1 920-8, 1987-12 ####[facility] LABCLIA [id number] [place] [address] [place] Banana IgE Qnon 02-09-2024 Banana IgE Qn (S) <0.35 Normal <0.35 [facility] Comment on above: Order Comment: Speci men Type: BLOOD SPECIMENOrdering Facility: [facility] Address: [address] [place] [address] Performed By: #### 6 035-0SULMA LATEXA ####[facility] LABIA [id number] [place] [address] [place] Banana IgE Qn (S)on 02-09-20 Banana IgE RAST class (S) Class 0 Normal Class 0 [facility] Comment on above: Order Comment: Speci men Type: BLOOD SPECIMENOrdering Facility: [facility] Address: [address] [place] [address] Performed By: #### 6 035-0SULMA LATEXA ####[facility] LABCLIA [id number] [place] [id number] [place] Basic metabolic 2000 panelon 02-09-2024 Anion gap [Moles/Vol] 13 mmol/L Normal 8-15 [facility] Comment on above: Order Comment: Speci men Type: BLOOD SPECIMENOrdering Facility: [facility] Address: [address] [place] [address] Performed By: #### 2 4321-2, 3024-7, 3051-0, 1742-6 ####[facility] LABCLIA [id number] [place] [address] [place] Calcium [Mass/Vol] 10.1 mg/dL Normal 8.5-10.2 [facility] Comment on above: Order Comment: Speci men Type: BLOOD SPECIMENOrdering Facility: [facility] Address: [address] [place] [address] Performed By: #### 2 4321-2, 3024-7, 305-0, 1741-6 ####[facility] LABCLIA [id number] [place] [address] [place] Chloride [Moles/Vol] 105 mmol/L Normal 98-107 [facility] Comment on above: Order Comment: Speci men Type: BLOOD SPECIMENOrdering Facility: [facility] Address: [address] [place] [address] Performed By: #### 2 4321-2, 3024-7, 305-0, 1741-6 ####[facility] LABCLIA [id number] [place] [address] [place] CO2 [Moles/Vol] 20 mmol/L Low 22-30 [facility] Comment on above: Order Comment: Speci men Type: BLOOD SPECIMENOrdering Facility: [facility] Address: [address] [place] [address] Performed By: #### 2 4321-2, 3024-7, 3051-0, 1741-6 ####[facility] LABCLIA [id number] [facility] [place] [place] [id number] [place] Creatinine [Mass/Vol] 0.60 mg/dL Normal 0.58-0.96 [facility] Comment on above: Order Comment: Krystyna armstrong Type: BLOOD SPECIMENOrdering Facility: [facility] Address: [address] [address] Performed By: #### 2 4321-2, 3024-7, 3051-0, 1742-6 ####[facility] LABCLIA [id number] [place] [address] [place] Creatinine and Glomerular filtration rate.predicted panel (S/P/Bld) 123 mL/min/1.73m??? Normal >=60 [facility] Comment on above: Order Comment: Krystyna armstrong Type: BLOOD SPECIMENOrdering Facility: [facility] Address: [address] [place] [address] Result Comment: Imelda mated Glomerular Filtration Rate (eGFR) is calculated using the 2020 CKD-EPI creatinine equation. This equation utilizes serum creatinine, sex, and age as parameters. The creatinine assay has traceable calibration to isotope dilution-mass spectrometry. Refer to KDIGO guidelines for clinical interpretation. In patients with unstable renal function, e.g. those with acute kidney injury, the eGFR may not accurately reflect actual GFR. Performed By: #### 2 4321-2, 3024-7, 3051-0, 1742-6 ####[facility] LABCLIA [id number] [address] [address] [place] Glucose [Mass/Vol] 95 mg/dL Normal 74-99 [facility] Comment on above: Order Comment: Krystyna armstrong Type: BLOOD SPECIMENOrdering Facility: [facility] Address: [address] [place] [address] Result Comment: The [place] Diabetes Association (ADA) provides guidance for cutoff values for fasting glucose and random glucose. The ADA defines fasting as no caloric intake for at least 8 hours. Fasting plasma glucose results between 100 to 125 mg/dL indicate increased risk for diabetes (prediabetes).Fasting plasma glucose results greater than or equal to 126 mg/dL meet the criteria for diagnosis of diabetes. In the absence of unequivocal hyperglycemia, results should be confirmed by repeat testing. In a patient with classic symptoms of hyperglycemia or hyperglycemic crisis, random plasma glucose results greater than or equal to 200 mg/dL meet the criteria for diagnosis of diabetes.Reference: Standards of Medical Care in Diabetes 2016, [place] Diabetes Association. Diabetes Care. 2016.39(Suppl 1). Performed By: #### 2 4321-2, 3024-7, 3051-0, 1742-6 ####[facility] LABCLIA [id number] [address] [address] [place] Potassium [Moles/Vol] 4.5 mmol/L Normal 3.7-5.1 [facility] Comment on above: Order Comment: Speci men Type: BLOOD SPECIMENOrdering Facility: [facility] Address: [address] [place] [address] Performed By: #### 2 4321-2, 3024-7, 305-0, 1741-6 ####[facility] LABCLIA [id number] [place] [address] [place] Sodium [Moles/Vol] 138 mmol/L Normal 136-144 [facility] Comment on above: Order Comment: Speci men Type: BLOOD SPECIMENOrdering Facility: [facility] Address: [address] [place] [address] Performed By: #### 2 4321-2, 3024-7, 305-0, 1741-6 ####[facility] LABCLIA [id number] [place] [address] [place] Urea nitrogen [Mass/Vol] 9 mg/dL Normal 7-21 [facility] Comment on above: Order Comment: Speci men Type: BLOOD SPECIMENOrdering Facility: [facility] Address: [address] [address] Performed By: #### 2 4321-2, 3024-7, 3051-0, 1742-6 ####[facility] LABCLIA [id number] [address] [address] [place] CBC W Auto Differential pane l (Bld)on 02-09-2024 Basophils (Bld) [#/Vol] 0.06 10*3/uL Normal <0.11 [facility] Comment on above: Order Comment: Speci men Type: BLOOD SPECIMENOrdering Facility: [facility] Address: [address] [place] [address] Performed By: #### 4 537-7, 52805-0 ####[facility] LABCLIA [id number] [place] [address] [place] Basophils/100 WBC (Bld) 1.0 % Normal [facility] Comment on above: Order Comment: Speci men Type: BLOOD SPECIMENOrdering Facility: [facility] Address: [address] [place] [address] Performed By: #### 4 537-7, 20995-1 ####[facility] LABCLIA [id number] [place] [address] [place] Differential cell count method Nom (Bld) Auto Normal [facility] Comment on above: Order Comment: Speci men Type: BLOOD SPECIMENOrdering Facility: [facility] Address: [address] [place] [address] Performed By: #### 4 537-7, 57613-5 ####[facility] LABCLIA [id number] [place] [address] [place] Eosinophils (Bld) [#/Vol] 0.08 10*3/uL Normal <0.46 [facility] Comment on above: Order Comment: Speci men Type: BLOOD SPECIMENOrdering Facility: [facility] Address: [address] [place] [address] Performed By: #### 4 537-7, 35617-2 ####[facility] LABCLIA [id number] [place] [address] [place] Eosinophils/100 WBC (Bld) 1.3 % Normal [facility] Comment on above: Order Comment: Speci men Type: BLOOD SPECIMENOrdering Facility: [facility] Address: [address] [place] [address] Performed By: #### 4 537-7, 80501-1 ####[facility] LABIA [id number] [place] [address] [place] Erythrocyte distribution width (RBC) [Ratio] 12.3 % Normal 11.5-15.0 [facility] Comment on above: Order Comment: Speci men Type: BLOOD SPECIMENOrdering Facility: [facility] Address: [address] [place] [address] Performed By: #### 4 537-7, 80405-5 ####[facility] LABIA [id number] [place] [address] [place] Hematocrit (Bld) [Volume fraction] 42.1 % Normal 36.0-46.0 [facility] Comment on above: Order Comment: Speci men Type: BLOOD SPECIMENOrdering Facility: [facility] Address: [address] [place] [address] Performed By: #### 4 537-7, 07561-9 ####[facility] LABIA [id number] [place] [address] [place] Hemoglobin (Bld) [Mass/Vol] 14.2 g/dL Normal 11.5-15.5 [facility] Comment on above: Order Comment: Speci men Type: BLOOD SPECIMENOrdering Facility: [facility] Address: [address] [place] [address] Performed By: #### 4 537-7, 53109-3 ####[facility] LABIA [id number] [place] [address] [place] Immature granulocytes (Bld) [#/Vol] 10*3/uL Normal <0.10 [facility] Comment on above: Order Comment: Speci men Type: BLOOD SPECIMENOrdering Facility: [facility] Address: [address] [place] [address] Performed By: #### 4 537-7, 92921-9 ####[facility] LABCLIA [id number] [place] [address] [place] Immature granulocytes/100 WBC (Bld) 0.2 % Normal [facility] Comment on above: Order Comment: Speci men Type: BLOOD SPECIMENOrdering Facility: [facility] Address: [address] [place] [address] Performed By: #### 4 537-7, 69614-3 ####[facility] LABCLIA [id number] [place] [address] [place] Lymphocytes (Bld) [#/Vol] 2.11 10*3/uL Normal 1.00-4.00 [facility] Comment on above: Order Comment: Speci men Type: BLOOD SPECIMENOrdering Facility: [facility] Address: [address] [place] [address] Performed By: #### 4 537-7, 37999-5 ####[facility] LABIA [id number] [place] [address] [place] Lymphocytes/100 WBC (Bld) 34.1 % Normal [facility] Comment on above: Order Comment: Speci men Type: BLOOD SPECIMENOrdering Facility: [facility] Address: [address] [place] [address] Performed By: #### 4 537-7, 00484-4 ####[facility] LABIA [id number] [place] [address] [place] MCH (RBC) [Entitic mass] 31.2 pg Normal 26.0-34.0 [facility] Comment on above: Order Comment: Speci men Type: BLOOD SPECIMENOrdering Facility: [facility] Address: [address] [place] [address] Performed By: #### 4 537-7, 74394-0 ####[facility] LABIA [id number] [place] [id number] [place] MCHC (RBC) [Mass/Vol] 33.7 g/dL Normal 30.5-36.0 [facility] Comment on above: Order Comment: Speci men Type: BLOOD SPECIMENOrdering Facility: [facility] Address: [address] [place] [address] Performed By: #### 4 537-7, 58793-7 ####[facility] LABCLIA [id number] [place] [address] [place] MCV (RBC) [Entitic vol] 92.5 fL Normal 80.0-100.0 [facility] Comment on above: Order Comment: Speci men Type: BLOOD SPECIMENOrdering Facility: [facility] Address: [address] [place] [address] Performed By: #### 4 537-7, 80986-3 ####[facility] LABCLIA [id number] [place] [address] [place] Monocytes (Bld) [#/Vol] 0.52 10*3/uL Normal <0.87 [facility] Comment on above: Order Comment: Speci men Type: BLOOD SPECIMENOrdering Facility: [facility] Address: [address] [place] [address] Performed By: #### 4 537-7, 29378-9 ####[facility] LABCLIA [id number] [place] [address] [place] Monocytes/100 WBC (Bld) 8.4 % Normal [facility] Comment on above: Order Comment: Speci men Type: BLOOD SPECIMENOrdering Facility: [facility] Address: [address] [place] [address] Performed By: #### 4 537-7, 77108-1 ####[facility] LABCLIA [id number] [place] [address] [place] Neutrophils (Bld) [#/Vol] 3.41 10*3/uL Normal 1.45-7.50 [facility] Comment on above: Order Comment: Speci men Type: BLOOD SPECIMENOrdering Facility: [facility] Address: [address] [place] [address] Performed By: #### 4 537-7, 10321-7 ####[facility] LABCLIA [id number] [place] [address] [place] Neutrophils/100 WBC (Bld) 55.0 % Normal [facility] Comment on above: Order Comment: Speci men Type: BLOOD SPECIMENOrdering Facility: [facility] Address: [address] [place] [address] Performed By: #### 4 537-7, 63298-0 ####[facility] LABCLIA [id number] [place] [address] [place] Nucleated RBC (Bld) [#/Vol] 10*3/uL Normal <0.01 [facility] Comment on above: Order Comment: Speci men Type: BLOOD SPECIMENOrdering Facility: [facility] Address: [address] [place] [address] Performed By: #### 4 537-7, 18303-6 ####[facility] LABCLIA [id number] [place] [address] [place] Nucleated RBC/100 WBC (Bld) [Ratio] 0.0 /100 WBC Normal [facility] Comment on above: Order Comment: Speci men Type: BLOOD SPECIMENOrdering Facility: [facility] Address: [address] [place] [address] Performed By: #### 4 537-7, 06323-9 ####[facility] LABCLIA [id number] [place] [address] [place] Platelet mean volume (Bld) [Entitic vol] 10.7 fL Normal 9.0-12.7 [facility] Comment on above: Order Comment: Speci men Type: BLOOD SPECIMENOrdering Facility: [facility] Address: [address] [place] [address] Performed By: #### 4 537-7, 63160-1 ####[facility] LABIA [id number] [place] [address] [place] Platelets (Bld) [#/Vol] 428 10*3/uL High 150-400 [facility] Comment on above: Order Comment: Speci men Type: BLOOD SPECIMENOrdering Facility: [facility] Address: [address] [place] [address] Performed By: #### 4 537-7, 56985-1 ####[facility] LABIA [id number] [place] [address] [place] RBC (Bld) [#/Vol] 4.55 10*6/uL Normal 3.90-5.20 [facility] Comment on above: Order Comment: Speci men Type: BLOOD SPECIMENOrdering Facility: [facility] Address: [address] [place] [address] Performed By: #### 4 537-7, 17719-5 ####[facility] LABIA [id number] [place] [address] [place] WBC (Bld) [#/Vol] 6.19 10*3/uL Normal 3.70-11.00 [facility] Comment on above: Order Comment: Speci men Type: BLOOD SPECIMENOrdering Facility: [facility] Address: [address] [place] [address] Performed By: #### 4 537-7, 72675-4 ####[facility] LABIA [id number] [place] [address] [place] CRP SerPl-mCncon 02-09-2024 CRP [Mass/Vol] mg/L Normal <0.9 [facility] Comment on above: Order Comment: Speci men Type: BLOOD SPECIMENOrdering Facility: [facility] Address: [address] [place] [address] Performed By: #### 1 920-8, 1987-12 ####[facility] LABCLIA [id number] [place] [address] [place] ESR Westergren method (Bld) [Velocity]on 02-09-2024 ESR (Bld) [Velocity] 2 mm/h Normal 0-20 [facility] Comment on above: Order Comment: Speci men Type: BLOOD SPECIMENOrdering Facility: [facility] Address: [address] [place] [address] Performed By: #### 4 537-7, 13812-3 ####[facility] LABCLIA [id number] [place] [address] [place] T3Free SerPl-mCncon 02-09-20 24 Free T3 [Mass/Vol] 3.6 pg/mL Normal 2.3-4.1 [facility] Comment on above: Order Comment: Speci men Type: BLOOD SPECIMENOrdering Facility: [facility] Address: [address] [place] [address] Performed By: #### 2 4321-2, 3024-7, 3051-0, 174-6 ####[facility] LABCLIA [id number] [place] [address] [place] T4 Free SerPl-mCncon 024 Free T4 [Mass/Vol] 1.1 ng/dL Normal 0.9-1.7 [facility] Comment on above: Order Comment: Speci men Type: BLOOD SPECIMENOrdering Facility: [facility] Address: [address] [place] [address] Performed By: #### 2 4321-2, 3024-7, 3051-0, 174-6 ####[facility] LABCLIA [id number] [place] [id number] [place] CNOVon 01-17-2024 CNOV Normal [facility] CNOVon 01-02-2024 CNOV Normal [facility] CNOVon 12-14-2023 CNOV Normal [facility] CNOVon 12-08-2023 CNOV Normal [facility] CNOVon 10-27-2023 CNOV Normal [facility] XR Shoulder - left 2 Viewson 10-16-2023 IMPRESSION: 1. No acute radiographic abnormality of the left shoulder Veneer Glue Spreader: HANSAB Transcribe Date/Time: Oct 16 2023 2:20P Dictated by : MICAELA ARNOLD MD This examination was interpreted and the report reviewed and electronically signed by: MICAELA ARNOLD MD on Oct 16 2023 2:21PM [facility] DIVISION OF RADIOLOGY * * *Final Report* * * DATE OF EXAM: Oct 14 2023 12:10PM WOX [id number] - XR SHOULDER 2V AP/TRUE AP LT / PROCEDURE REASON: multiple diagnoses * * * * Physician Interpretation * * * * SHOULDER RADIOGRAPHS - LEFT HISTORY: Chronic left shoulder pain Chronic left shoulder pain TECHNOLOGIST PROVIDED HISTORY (if applicable): Left shoulder pain since June after vaccination shot in that arm. No known injury. TECHNIQUE: XR SHOULDER 2V AP/TRUE AP LT COMPARISON: Radiographs 01/07/2021 RESULT: Left shoulder: The glenohumeral joint appears normally aligned without degenerative changes. The acromioclavicular joint appears normal. Soft tissues appear within normal limits. DIVISION OF RADIOLOGY Provider, [facility] - 10/16/2023 * * *Final Report* * * DATE OF EXAM: Oct 14 2023 12:10PM WOX [id number] - XR SHOULDER 2V AP/TRUE AP LT / PROCEDURE REASON: multiple diagnoses * * * * Physician Interpretation * * * * SHOULDER RADIOGRAPHS - LEFT HISTORY: Chronic left shoulder pain Chronic left shoulder pain TECHNOLOGIST PROVIDED HISTORY (if applicable): Left shoulder pain since June after vaccination shot in that arm. No known injury. TECHNIQUE: XR SHOULDER 2V AP/TRUE AP LT COMPARISON: Radiographs 01/07/2021 RESULT: Left shoulder: The glenohumeral joint appears normally aligned without degenerative changes. The acromioclavicular joint appears normal. Soft tissues appear within normal limits. IMPRESSION IMPRESSION: 1. No acute radiographic abnormality of the left shoulder Veneer Glue Spreader: PSCB Transcribe Date/Time: Oct 16 2023 2:20P Dictated by : MICAELA ARNOLD MD This examination was interpreted and the report reviewed and electronically signed by: MICAELA ARNOLD MD on Oct 16 2023 2:21PM EST [facility] XR Shoulder - left 2 ViewsOr dered By: [facility] Provider on 10-16-2023 [facility] ALT SerPl-cCncon 10-14-2023 ALT [Catalytic activity/Vol] 33 U/L Normal 7-38 [facility] Comment on above: Order Comment: Speci men Type: BLOOD SPECIMENOrdering Facility: [facility] Address: [address] [place] [address] Performed By: #### 1 742-6, 1987-12, 1920-03, 3 ####[facility] [id number] [place] [address] [place] AST SerPl-cCncon 10-14-2023 AST [Catalytic activity/Vol] 26 U/L Normal 13-35 [facility] Comment on above: Order Comment: Speci men Type: BLOOD SPECIMENOrdering Facility: [facility] Address: [address] [place] [address] Performed By: #### 1 742-6, 1987-12, 1920-03, 3 ####[facility] [id number] [place] [address] [place] BUN SerPl-mCncon 10-14-2023 Urea nitrogen [Mass/Vol] 8 mg/dL Normal 7-21 [facility] Comment on above: Order Comment: Speci men Type: BLOOD SPECIMENOrdering Facility: [facility] Address: [address] [place] [address] Performed By: #### 3 094-0 ####[facility] LABIA [id number] [place] [address] [place] C. trachomatis+N. gonorrhoea e DNA JOSSIE+probe Ql (Unsp spec)on 10-14-2023 C. trachomatis rRNA JOSSIE+probe Ql (Unsp spec) Negative Normal Negative for Chlamydia trachomatis by amplificaton [facility] Comment on above: Order Comment: Speci men Type: URINE SPECIMENOrdering Facility: [facility] Address: [address] [place] [address] Performed By: #### T RVAMP, 65732-2 ####[facility] LABCLIA [id number] [place] [address] [place] N. gonorrhoeae rRNA JOSSIE+probe Ql (Unsp spec) Negative Normal Negative for Neisseria gonorrhoeae by amplification [facility] Comment on above: Order Comment: Speci men Type: URINE SPECIMENOrdering Facility: [facility] Address: [address] [place] [address] Performed By: #### T RVAMP, 92682-2 ####[facility] LABCLIA [id number] [place] [address] [place] CBC W Auto Differential pane l (Bld)on 10-14-2023 Basophils (Bld) [#/Vol] 0.06 10*3/uL Normal <0.11 [facility] Comment on above: Order Comment: Speci men Type: BLOOD SPECIMENOrdering Facility: [facility] Address: [address] [place] [address] Performed By: #### 4 537-7, 51952-0 ####[facility] LABCLIA [id number] [place] [address] [place] Basophils/100 WBC (Bld) 0.9 % Normal [facility] Comment on above: Order Comment: Speci men Type: BLOOD SPECIMENOrdering Facility: [facility] Address: [address] [place] [address] Performed By: #### 4 537-7, 22450-1 ####[facility] LABCLIA [id number] [place] [address] [place] Differential cell count method Nom (Bld) Auto Normal [facility] Comment on above: Order Comment: Speci men Type: BLOOD SPECIMENOrdering Facility: [facility] Address: [address] [address] Performed By: #### 4 537-7, 95648-9 ####[facility] LABCLIA [id number] [place] [address] [place] Eosinophils (Bld) [#/Vol] 0.13 10*3/uL Normal <0.46 [facility] Comment on above: Order Comment: Speci men Type: BLOOD SPECIMENOrdering Facility: [facility] Address: [address] [place] [address] Performed By: #### 4 537-7, 83101-3 ####[facility] LABCLIA [id number] [place] [address] [place] Eosinophils/100 WBC (Bld) 1.9 % Normal [facility] Comment on above: Order Comment: Speci men Type: BLOOD SPECIMENOrdering Facility: [facility] Address: [address] [place] [address] Performed By: #### 4 537-7, 87664-3 ####[facility] LABCLIA [id number] [place] [address] [place] Erythrocyte distribution width (RBC) [Ratio] 13.4 % Normal 11.5-15.0 [facility] Comment on above: Order Comment: Speci men Type: BLOOD SPECIMENOrdering Facility: [facility] Address: [address] [address] Performed By: #### 4 537-7, 07750-4 ####[facility] LABCLIA [id number] [place] [address] [place] Hematocrit (Bld) [Volume fraction] 40.7 % Normal 36.0-46.0 [facility] Comment on above: Order Comment: Speci men Type: BLOOD SPECIMENOrdering Facility: [facility] Address: [address] [place] [address] Performed By: #### 4 537-7, 33950-3 ####[facility] LABCLIA [id number] [place] [address] [place] Hemoglobin (Bld) [Mass/Vol] 12.9 g/dL Normal 11.5-15.5 [facility] Comment on above: Order Comment: Speci men Type: BLOOD SPECIMENOrdering Facility: [facility] Address: [address] [place] [address] Performed By: #### 4 537-7, 68647-4 ####[facility] LABIA [id number] [place] [address] [place] Immature granulocytes (Bld) [#/Vol] 0.03 10*3/uL Normal <0.10 [facility] Comment on above: Order Comment: Speci men Type: BLOOD SPECIMENOrdering Facility: [facility] Address: [address] [place] [address] Performed By: #### 4 537-7, 63025-8 ####[facility] LABIA [id number] [place] [address] [place] Immature granulocytes/100 WBC (Bld) 0.4 % Normal [facility] Comment on above: Order Comment: Speci men Type: BLOOD SPECIMENOrdering Facility: [facility] Address: [address] [place] [address] Performed By: #### 4 537-7, 26804-7 ####[facility] LABIA [id number] [place] [id number] [place] Lymphocytes (Bld) [#/Vol] 2.83 10*3/uL Normal 1.00-4.00 [facility] Comment on above: Order Comment: Speci men Type: BLOOD SPECIMENOrdering Facility: [facility] Address: [address] [place] [address] Performed By: #### 4 537-7, 22525-0 ####[facility] LABCLIA [id number] [place] [address] [place] Lymphocytes/100 WBC (Bld) 40.8 % Normal [facility] Comment on above: Order Comment: Speci men Type: BLOOD SPECIMENOrdering Facility: [facility] Address: [address] [place] [address] Performed By: #### 4 537-7, 59694-3 ####[facility] LABCLIA [id number] [place] [address] [place] MCH (RBC) [Entitic mass] 29.4 pg Normal 26.0-34.0 [facility] Comment on above: Order Comment: Speci men Type: BLOOD SPECIMENOrdering Facility: [facility] Address: [address] [place] [address] Performed By: #### 4 537-7, 28092-3 ####[facility] LABIA [id number] [place] [address] [place] MCHC (RBC) [Mass/Vol] 31.7 g/dL Normal 30.5-36.0 [facility] Comment on above: Order Comment: Speci men Type: BLOOD SPECIMENOrdering Facility: [facility] Address: [address] [place] [address] Performed By: #### 4 537-7, 71848-4 ####[facility] LABIA [id number] [place] [address] [place] MCV (RBC) [Entitic vol] 92.7 fL Normal 80.0-100.0 [facility] Comment on above: Order Comment: Speci men Type: BLOOD SPECIMENOrdering Facility: [facility] Address: [address] [place] [address] Performed By: #### 4 537-7, 46293-1 ####[facility] LABIA [id number] [place] [address] [place] Monocytes (Bld) [#/Vol] 0.67 10*3/uL Normal <0.87 [facility] Comment on above: Order Comment: Speci men Type: BLOOD SPECIMENOrdering Facility: [facility] Address: [address] [place] [address] Performed By: #### 4 537-7, 40328-8 ####[facility] LABCLIA [id number] [place] [address] [place] Monocytes/100 WBC (Bld) 9.7 % Normal [facility] Comment on above: Order Comment: Speci men Type: BLOOD SPECIMENOrdering Facility: [facility] Address: [address] [place] [address] Performed By: #### 4 537-7, 94349-1 ####[facility] LABCLIA [id number] [place] [address] [place] Neutrophils (Bld) [#/Vol] 3.21 10*3/uL Normal 1.45-7.50 [facility] Comment on above: Order Comment: Speci men Type: BLOOD SPECIMENOrdering Facility: [facility] Address: [address] [place] [address] Performed By: #### 4 537-7, 62945-7 ####[facility] LABCLIA [id number] [place] [address] [place] Neutrophils/100 WBC (Bld) 46.3 % Normal [facility] Comment on above: Order Comment: Speci men Type: BLOOD SPECIMENOrdering Facility: [facility] Address: [address] [place] [address] Performed By: #### 4 537-7, 39645-9 ####[facility] LABCLIA [id number] [place] [address] [place] Nucleated RBC (Bld) [#/Vol] 10*3/uL Normal <0.01 [facility] Comment on above: Order Comment: Speci men Type: BLOOD SPECIMENOrdering Facility: [facility] Address: [address] [place] [address] Performed By: #### 4 537-7, 91411-1 ####[facility] LABIA [id number] [place] [address] [place] Nucleated RBC/100 WBC (Bld) [Ratio] 0.0 /100 WBC Normal [facility] Comment on above: Order Comment: Speci men Type: BLOOD SPECIMENOrdering Facility: [facility] Address: [address] [place] [address] Performed By: #### 4 537-7, 01304-8 ####[facility] [id number] [place] [address] [place] Platelet mean volume (Bld) [Entitic vol] 9.9 fL Normal 9.0-12.7 [facility] Comment on above: Order Comment: Speci men Type: BLOOD SPECIMENOrdering Facility: [facility] Address: [address] [place] [address] Performed By: #### 4 537-7, 95007-9 ####[facility] [id number] [place] [address] [place] Platelets (Bld) [#/Vol] 494 10*3/uL High 150-400 [facility] Comment on above: Order Comment: Speci men Type: BLOOD SPECIMENOrdering Facility: [facility] Address: [address] [place] [address] Performed By: #### 4 537-7, 20300-1 ####[facility] LABIA [id number] [place] [address] [place] RBC (Bld) [#/Vol] 4.39 10*6/uL Normal 3.90-5.20 [facility] Comment on above: Order Comment: Speci men Type: BLOOD SPECIMENOrdering Facility: [facility] Address: [address] [place] [address] Performed By: #### 4 537-7, 31765-0 ####[facility] LABCLIA [id number] [place] [address] [place] WBC (Bld) [#/Vol] 6.93 10*3/uL Normal 3.70-11.00 [facility] Comment on above: Order Comment: Speci men Type: BLOOD SPECIMENOrdering Facility: [facility] Address: [address] [place] [address] Performed By: #### 4 537-7, 21616-3 ####[facility] LABCLIA [id number] [place] [address] [place] CNOVon 10-14-2023 CNOV Normal [facility] CRP SerPl-mCncon 10-14-2023 CRP [Mass/Vol] mg/L Normal <0.9 [facility] Comment on above: Order Comment: Speci men Type: BLOOD SPECIMENOrdering Facility: [facility] Address: [address] [place] [address] Performed By: #### 1 742-6, 1987-5, 1919-8, 3016-3 ####[facility] LABCLIA [id number] [place] [address] [place] ESR Westergren method (Bld) [Velocity]on 10-14-2023 ESR (Bld) [Velocity] 6 mm/h Normal 0-20 [facility] Comment on above: Order Comment: Speci men Type: BLOOD SPECIMENOrdering Facility: [facility] Address: [address] [place] [address] Performed By: #### 4 537-7, 51480-1 ####[facility] LABCLIA [id number] [place] [address] [place] HIV 1+2 Ab IA Qlon HIV 1 and 2 Ab IA.rapid Nom (S/P/Bld) Normal [facility] Comment on above: Order Comment: Speci men Type: BLOOD SPECIMENOrdering Facility: [facility] Address: [address] [place] [address] Result Comment: Test not indicated. Performed By: #### 3 1201-7, 70456-9, MICRO ####[facility] LABCLIA [id number] [place] [address] [place] HIV 1+2 Ab+HIV1 p24 Ag IA Ql Non-Reactive Normal Nonreactive [facility] Comment on above: Order Comment: Speci men Type: BLOOD SPECIMENOrdering Facility: [facility] Address: [address] [place] [address] Performed By: #### 3 1201-7, 64664-8, MICRO ####[facility] LABCLIA [id number] [place] [address] [place] HIV immunoassay testing algorithm interpretation (S/P/Bld) [Interp] Normal [facility] Comment on above: Order Comment: Speci men Type: BLOOD SPECIMENOrdering Facility: [facility] Address: [address] [place] [address] Result Comment: No e vidence of HIV-1 or HIV-2 infection. Should recent infection be suspected, repeat testing may be considered 2-3 weeks after this draw.[place] Rev. Code 3701.243(E): This information has been disclosed to you from confidential records protected from disclosure by state law. ???You shall make no further disclosure of this information without the specific, written, and informed release of the individual to whom it pertains or as otherwise permitted by state law. A general authorization for the release of medical or other information is not sufficient for the purpose of the release of HIV test results or diagnoses. Performed By: #### 3 1201-7, 19394-5, MICRO ####[facility] LABCLIA [id number] [place] [address] [place] Reagin and Treponema pallidu m IgG and IgM [Interp]on 10-14-2023 T. pallidum IgG+IgM IA Ql (S) Non-Reactive Normal Nonreactive [facility] Comment on above: Order Comment: Speci men Type: BLOOD SPECIMENOrdering Facility: [facility] Address: [address] [place] [address] Performed By: #### 3 1201-7, 31400-4, MICRO ####[facility] LABIA [id number] [place] [address] [place] Reagin+T pallidum IgG+IgM Se rPl-Impon 10-14-2023 Reagin and Treponema pallidum IgG and IgM [Interp] Cannot exclude recent Treponemal infection if specimen collected within 7-10 days after appearance of suspect lesions or 2-3 weeks after an exposure. Clinical correlation is required. Normal [facility] Comment on above: Order Comment: Speci men Type: BLOOD SPECIMENOrdering Facility: [facility] Address: [address] [place] [address] Performed By: #### 3 1201-7, 58189-4, MICRO ####[facility] LABIA [id number] [place] [address] [place] THYROID PEROXIDASE ANTIBODY BLOODon 10-14-2023 TPO Ab Qn [IU]/mL Normal <5.6 [facility] Comment on above: Order Comment: Speci men Type: BLOOD SPECIMENOrdering Facility: [facility] Address: [address] [place] [address] Result Comment: Thyr oid Peroxidase Antibody test is used as an aid in diagnosis of autoimmune thyroid disease. Clinical correlation is required. Performed By: #### 3 1201-7, 56016-7, MICRO ####[facility] LABIA [id number] [place] [address] [place] TRICHOMONAS VAGINALIS NAATon 10-14-2023 T. vaginalis DNA JOSSIE+probe Ql (Unsp spec) Negative Normal Negative for Trichomonas vaginalis by amplification [facility] Comment on above: Order Comment: Speci men Type: URINE SPECIMENOrdering Facility: [facility] Address: [facility] [place] [address] Performed By: #### T RVAMP, 06088-1 ####[facility] LABIA [id number] [place] [address] [place] TSH SerPl-aCncon 10-14-2023 TSH Qn 2.530 m[IU]/L Normal 0.270-4.200 [facility] Comment on above: Order Comment: Speci men Type: BLOOD SPECIMENOrdering Facility: [facility] Address: [address] [place] [address] Result Comment: If t he patient is , TSH reference range varies by gestational period:First Trimester (weeks 9-12): 0.180-2.990 mIU/LSecond Trimester: 0.110-3.980 mIU/LThird Trimester: 0.480-4.710 mIU/Macario Cheng et al. A Practical Approach for the Verifications and Determination of Site- and Trimester-Specific Reference Intervals for Thyroid Function tests in . Thyroid, 2019:29:3:412-420. Rickey E, et al. 2017 Guidelines of the [place] [employer] for the Diagnosis and Management of Thyroid Disease during and the . Thyroid, 2017:27:3:315-389. Performed By: #### 1 742-6, 1987-5, 1920-8, 3016-3 ####[facility] LABIA [id number] [place] [id number] [place] XR SHOULDER 2V AP/TRUE AP LT on 10-14-2023 XR SHOULDER 2V AP/TRUE AP LT Normal [facility] XR Shoulder - left 2 Viewson 10-14-2023 Radiology Study observation (narrative) [facility] CNOVon 09-06-2023 CNOV Normal [facility] CNOVon 08-19-2023 CNOV Normal [facility] CNOVon 07-28-2023 CNOV Normal [facility] PELVIC US WHIon 07-25-2023 [facility] CNOVon 07-22-2023 CNOV Normal [facility] BUN SerPl-mCncon 07-11-2023 Urea nitrogen [Mass/Vol] 6 mg/dL Low 7-21 [facility] Comment on above: Order Comment: Speci men Type: BLOOD SPECIMENOrdering Facility: [facility] Address: [address] [place] [address] Performed By: #### 3 094-0, 1987-5, 07462-2, CRET1 ####[facility] LABCLIA [id number] [place] [address] [place] CBC W Auto Differential pane l (Bld)on 07-11-2023 Basophils (Bld) [#/Vol] 0.08 10*3/uL Normal <0.11 [facility] Comment on above: Order Comment: Speci men Type: BLOOD SPECIMENOrdering Facility: [facility] Address: [address] [place] [address] Performed By: #### 4 537-7, 71257-2 ####[facility] LABCLIA [id number] [place] [address] [place] Basophils/100 WBC (Bld) 0.7 % Normal [facility] Comment on above: Order Comment: Speci men Type: BLOOD SPECIMENOrdering Facility: [facility] Address: [address] [place] [address] Performed By: #### 4 537-7, 05508-7 ####[facility] LABCLIA [id number] [place] [address] [place] Differential cell count method Nom (Bld) Auto Normal [facility] Comment on above: Order Comment: Speci men Type: BLOOD SPECIMENOrdering Facility: [facility] Address: [address] [place] [address] Performed By: #### 4 537-7, 61699-2 ####[facility] LABCLIA [id number] [place] [address] [place] Eosinophils (Bld) [#/Vol] 0.16 10*3/uL Normal <0.46 [facility] Comment on above: Order Comment: Speci men Type: BLOOD SPECIMENOrdering Facility: [facility] Address: [address] [place] [address] Performed By: #### 4 537-7, 86743-7 ####[facility] LABCLIA [id number] [address] [address] [place] Eosinophils/100 WBC (Bld) 1.4 % Normal [facility] Comment on above: Order Comment: Speci men Type: BLOOD SPECIMENOrdering Facility: [facility] Address: [address] [place] [address] Performed By: #### 4 537-7, 61723-9 ####[facility] LABCLIA [id number] [place] [address] [place] Erythrocyte distribution width (RBC) [Ratio] 12.0 % Normal 11.5-15.0 [facility] Comment on above: Order Comment: Speci men Type: BLOOD SPECIMENOrdering Facility: [facility] Address: [address] [place] [address] Performed By: #### 4 537-7, 09899-3 ####[facility] LABIA [id number] [place] [address] [place] Hematocrit (Bld) [Volume fraction] 40.4 % Normal 36.0-46.0 [facility] Comment on above: Order Comment: Speci men Type: BLOOD SPECIMENOrdering Facility: [facility] Address: [address] [place] [address] Performed By: #### 4 537-7, 72830-4 ####[facility] LABIA [id number] [place] [address] [place] Hemoglobin (Bld) [Mass/Vol] 13.2 g/dL Normal 11.5-15.5 [facility] Comment on above: Order Comment: Speci men Type: BLOOD SPECIMENOrdering Facility: [facility] Address: [address] [place] [address] Performed By: #### 4 537-7, 10130-4 ####[facility] LABCLIA [id number] [place] [address] [place] Immature granulocytes (Bld) [#/Vol] 0.08 10*3/uL Normal <0.10 [facility] Comment on above: Order Comment: Speci men Type: BLOOD SPECIMENOrdering Facility: [facility] Address: [address] [place] [address] Performed By: #### 4 537-7, 93222-5 ####[facility] LABCLIA [id number] [place] [address] [place] Immature granulocytes/100 WBC (Bld) 0.7 % Normal [facility] Comment on above: Order Comment: Speci men Type: BLOOD SPECIMENOrdering Facility: [facility] Address: [address] [place] [address] Performed By: #### 4 537-7, 01584-7 ####[facility] LABCLIA [id number] [place] [address] [place] Lymphocytes (Bld) [#/Vol] 2.88 10*3/uL Normal 1.00-4.00 [facility] Comment on above: Order Comment: Speci men Type: BLOOD SPECIMENOrdering Facility: [facility] Address: [address] [place] [address] Performed By: #### 4 537-7, 13475-1 ####[facility] LABCLIA [id number] [place] [address] [place] Lymphocytes/100 WBC (Bld) 24.5 % Normal [facility] Comment on above: Order Comment: Speci men Type: BLOOD SPECIMENOrdering Facility: [facility] Address: [address] [place] [address] Performed By: #### 4 537-7, 04576-6 ####[facility] LABCLIA [id number] [place] [address] [place] MCH (RBC) [Entitic mass] 30.8 pg Normal 26.0-34.0 [facility] Comment on above: Order Comment: Speci men Type: BLOOD SPECIMENOrdering Facility: [facility] Address: [address] [place] [address] Performed By: #### 4 537-7, 92431-5 ####[facility] LABCLIA [id number] [place] [address] [place] MCHC (RBC) [Mass/Vol] 32.7 g/dL Normal 30.5-36.0 [facility] Comment on above: Order Comment: Speci men Type: BLOOD SPECIMENOrdering Facility: [facility] Address: [address] [place] [address] Performed By: #### 4 537-7, 99799-6 ####[facility] LABIA [id number] [place] [address] [place] MCV (RBC) [Entitic vol] 94.4 fL Normal 80.0-100.0 [facility] Comment on above: Order Comment: Speci men Type: BLOOD SPECIMENOrdering Facility: [facility] Address: [address] [place] [address] Performed By: #### 4 537-7, 80830-0 ####[facility] LABIA [id number] [place] [address] [place] Monocytes (Bld) [#/Vol] 0.88 10*3/uL High <0.87 [facility] Comment on above: Order Comment: Speci men Type: BLOOD SPECIMENOrdering Facility: [facility] Address: [address] [place] [address] Performed By: #### 4 537-7, 57394-7 ####[facility] LABCLIA [id number] [place] [address] [place] Monocytes/100 WBC (Bld) 7.5 % Normal [facility] Comment on above: Order Comment: Speci men Type: BLOOD SPECIMENOrdering Facility: [facility] Address: [address] [place] [address] Performed By: #### 4 537-7, 98993-6 ####[facility] LABCLIA [id number] [place] [address] [place] Neutrophils (Bld) [#/Vol] 7.67 10*3/uL High 1.45-7.50 [facility] Comment on above: Order Comment: Speci men Type: BLOOD SPECIMENOrdering Facility: [facility] Address: [address] [place] [address] Performed By: #### 4 537-7, 72752-0 ####[facility] LABCLIA [id number] [place] [address] [place] Neutrophils/100 WBC (Bld) 65.2 % Normal [facility] Comment on above: Order Comment: Speci men Type: BLOOD SPECIMENOrdering Facility: [facility] Address: [address] [place] [address] Performed By: #### 4 537-7, 73081-3 ####[facility] LABCLIA [id number] [place] [address] [place] Nucleated RBC (Bld) [#/Vol] 10*3/uL Normal <0.01 [facility] Comment on above: Order Comment: Speci men Type: BLOOD SPECIMENOrdering Facility: [facility] Address: [address] [place] [address] Performed By: #### 4 537-7, 51383-1 ####[facility] LABCLIA [id number] [place] [address] [place] Nucleated RBC/100 WBC (Bld) [Ratio] 0.0 /100 WBC Normal [facility] Comment on above: Order Comment: Speci men Type: BLOOD SPECIMENOrdering Facility: [facility] Address: [address] [place] [address] Performed By: #### 4 537-7, 04766-4 ####[facility] LABIA [id number] [place] [id number] [place] Platelet mean volume (Bld) [Entitic vol] 10.1 fL Normal 9.0-12.7 [facility] Comment on above: Order Comment: Speci men Type: BLOOD SPECIMENOrdering Facility: [facility] Address: [address] [place] [address] Performed By: #### 4 537-7, 64890-2 ####[facility] LABIA [id number] [place] [address] [place] Platelets (Bld) [#/Vol] 533 10*3/uL High 150-400 [facility] Comment on above: Order Comment: Speci men Type: BLOOD SPECIMENOrdering Facility: [facility] Address: [address] [place] [address] Performed By: #### 4 537-7, 00667-7 ####[facility] LABIA [id number] [place] [address] [place] RBC (Bld) [#/Vol] 4.28 10*6/uL Normal 3.90-5.20 [facility] Comment on above: Order Comment: Speci men Type: BLOOD SPECIMENOrdering Facility: [facility] Address: [address] [place] [address] Performed By: #### 4 537-7, 33540-1 ####[facility] LABIA [id number] [place] [address] [place] WBC (Bld) [#/Vol] 11.75 10*3/uL High 3.70-11.00 [facility] Comment on above: Order Comment: Speci men Type: BLOOD SPECIMENOrdering Facility: [facility] Address: [address] [place] [address] Performed By: #### 4 537-7, 98046-3 ####[facility] LABIA [id number] [place] [address] [place] CREATININE BLDon 07-11-2023 Creatinine [Mass/Vol] 0.54 mg/dL Low 0.58-0.96 [facility] Comment on above: Order Comment: Speci men Type: BLOOD SPECIMENOrdering Facility: [facility] Address: [address] [place] [address] Performed By: #### 3 094-0, 1987-12, , CRET1 ####[facility] [id number] [place] [address] [place] Creatinine and Glomerular filtration rate.predicted panel (S/P/Bld) 127 mL/min/1.73m??? Normal >=60 [facility] Comment on above: Order Comment: Speci men Type: BLOOD SPECIMENOrdering Facility: [facility] Address: [address] [place] [address] Result Comment: Imelda mated Glomerular Filtration Rate (eGFR) is calculated using the 2020 CKD-EPI creatinine equation. This equation utilizes serum creatinine, sex, and age as parameters. The creatinine assay has traceable calibration to isotope dilution-mass spectrometry. Refer to KDIGO guidelines for clinical interpretation. In patients with unstable renal function, e.g. those with acute kidney injury, the eGFR may not accurately reflect actual GFR. Performed By: #### 3 094-0, 1987-12, , CRET1 ####[facility] LABIA [id number] [place] [id number] [place] CRP SerPl-mCncon 07-11-2023 CRP [Mass/Vol] 2.3 mg/dL High <0.9 [facility] Comment on above: Order Comment: Speci men Type: BLOOD SPECIMENOrdering Facility: [facility] Address: [address] [place] [address] Performed By: #### 3 094-0, 1987-12, 26074-9, CRET1 ####[facility] LABCLIA [id number] [place] [id number] [place] ESR Westergren method (Bld) [Velocity]on 07-11-2023 ESR (Bld) [Velocity] 54 mm/h High 0-20 [facility] Comment on above: Order Comment: Speci men Type: BLOOD SPECIMENOrdering Facility: [facility] Address: [address] [place] [address] Performed By: #### 4 537-7, 70847-2 ####[facility] LABCLIA [id number] [place] [address] [place] Hepatic function 2000 panelo n 07-11-2023 Albumin [Mass/Vol] 4.0 g/dL Normal 3.9-4.9 [facility] Comment on above: Order Comment: Speci men Type: BLOOD SPECIMENOrdering Facility: [facility] Address: [address] [place] [address] Performed By: #### 3 094-0, 1987-12, 29567-9, CRET1 ####[facility] LABIA [id number] [place] [address] [place] ALP [Catalytic activity/Vol] 86 U/L Normal 34-123 [facility] Comment on above: Order Comment: Speci men Type: BLOOD SPECIMENOrdering Facility: [facility] Address: [address] [place] [address] Performed By: #### 3 094-0, 1987-12, , CRET1 ####[facility] LABIA [id number] [place] [address] [place] ALT [Catalytic activity/Vol] 14 U/L Normal 7-38 [facility] Comment on above: Order Comment: Speci men Type: BLOOD SPECIMENOrdering Facility: [facility] Address: [address] [place] [address] Performed By: #### 3 094-0, 1987-12, , CRET1 ####[facility] LABCLIA [id number] [address] [address] [place] AST [Catalytic activity/Vol] 19 U/L Normal 13-35 [facility] Comment on above: Order Comment: Speci men Type: BLOOD SPECIMENOrdering Facility: [facility] Address: [address] [place] [address] Performed By: #### 3 094-0, 1987-12, , CRET1 ####[facility] LABCLIA [id number] [address] [address] [place] Bilirubin [Mass/Vol] 0.2 mg/dL Normal 0.2-1.3 [facility] Comment on above: Order Comment: Speci men Type: BLOOD SPECIMENOrdering Facility: [facility] Address: [address] [place] [address] Performed By: #### 3 094-0, 1987-12, , CRET1 ####[facility] LABCLIA [id number] [place] [address] [place] Bilirubin.conjugated [Mass/Vol] mg/dL Normal <0.2 [facility] Comment on above: Order Comment: Speci men Type: BLOOD SPECIMENOrdering Facility: [facility] Address: [address] [place] [address] Performed By: #### 3 094-0, 1987-12, , CRET1 ####[facility] LABCLIA [id number] [address] [address] [place] Protein [Mass/Vol] 7.2 g/dL Normal 6.3-8.0 [facility] Comment on above: Order Comment: Speci men Type: BLOOD SPECIMENOrdering Facility: [facility] Address: [address] [place] [address] Performed By: #### 3 094-0, 1987-12, , CRET1 ####[facility] LABCLIA [id number] [place] [address] [place] CNPNon 06-21-2023 CNPN Normal [facility] CNOVon 06-06-2023 CNOV Normal [facility] FLUABV + SARS-CoV-2 Pnl Resp JOSSIE+prbon 06-06-2023 Influenza virus A and B RNA and SARS-CoV-2 (COVID-19) N gene panel JOSSIE+probe (Resp) COVID 19 RESULT: Not detected The method used is RT-PCR or an equivalent NAAT method. Reference Range (the expected result in uninfected individuals): Not detected INFLUENZA A PCR: Not detected INFLUENZA B PCR: Not detected Normal [facility] Comment on above: Performed By: #### 9 5422-2 ####[facility] [id number] [place] [address] [place] No Panel Informationon 06-06 [facility] XR CHEST 2V FRONTAL/LATon XR CHEST 2V FRONTAL/LAT Normal [facility] BUN SerPl-mCncon 06-01-2023 Urea nitrogen [Mass/Vol] 8 mg/dL Normal 03-04 [facility] Comment on above: Order Comment: Speci men Type: BLOOD SPECIMENOrdering Facility: [facility] Address: [address] [place] [address] Performed By: #### 3 094-0 ####[facility] [id number] [place] [address] [place] CBC W Auto Differential pane l (Bld)on 06-01-2023 Basophils (Bld) [#/Vol] 0.06 10*3/uL Normal <0.11 [facility] Comment on above: Order Comment: Speci men Type: BLOOD SPECIMENOrdering Facility: [facility] Address: [address] [place] [address] Performed By: #### 5 7021-8, 4537-7 ####[facility] LABIA [id number] [place] [id number] [place] Basophils/100 WBC (Bld) 0.5 % Normal [facility] Comment on above: Order Comment: Speci men Type: BLOOD SPECIMENOrdering Facility: [facility] Address: [address] [place] [address] Performed By: #### 5 7021-8, 4536-7 ####[facility] LABCLIA [id number] [place] [address] [place] Differential cell count method Nom (Bld) Auto Normal [facility] Comment on above: Order Comment: Speci men Type: BLOOD SPECIMENOrdering Facility: [facility] Address: [address] [place] [address] Performed By: #### 5 7021-8, 7 ####[facility] LABCLIA [id number] [place] [address] [place] Eosinophils (Bld) [#/Vol] 0.22 10*3/uL Normal <0.46 [facility] Comment on above: Order Comment: Speci men Type: BLOOD SPECIMENOrdering Facility: [facility] Address: [address] [place] [address] Performed By: #### 5 7021-8, 7 ####[facility] LABCLIA [id number] [place] [address] [place] Eosinophils/100 WBC (Bld) 2.0 % Normal [facility] Comment on above: Order Comment: Speci men Type: BLOOD SPECIMENOrdering Facility: [facility] Address: [address] [place] [address] Performed By: #### 5 7021-8, 7 ####[facility] LABCLIA [id number] [place] [address] [place] Erythrocyte distribution width (RBC) [Ratio] 12.1 % Normal 11.5-15.0 [facility] Comment on above: Order Comment: Speci men Type: BLOOD SPECIMENOrdering Facility: [facility] Address: [address] [place] [address] Performed By: #### 5 7021-8, 4536-7 ####[facility] LABCLIA [id number] [place] [address] [place] Hematocrit (Bld) [Volume fraction] 44.0 % Normal 36.0-46.0 [facility] Comment on above: Order Comment: Speci men Type: BLOOD SPECIMENOrdering Facility: [facility] Address: [address] [place] [address] Performed By: #### 5 7021-8, 4536-7 ####[facility]IA [id number] [place] [address] [place] Hemoglobin (Bld) [Mass/Vol] 13.8 g/dL Normal 11.5-15.5 [facility] Comment on above: Order Comment: Speci men Type: BLOOD SPECIMENOrdering Facility: [facility] Address: [address] [place] [address] Performed By: #### 5 7021-8, 7 ####[facility] LABIA [id number] [place] [address] [place] Immature granulocytes (Bld) [#/Vol] 0.06 10*3/uL Normal <0.10 [facility] Comment on above: Order Comment: Speci men Type: BLOOD SPECIMENOrdering Facility: [facility] Address: [address] [place] [address] Performed By: #### 5 7021-8, 7 ####[facility] LABIA [id number] [place] [address] [place] Immature granulocytes/100 WBC (Bld) 0.5 % Normal [facility] Comment on above: Order Comment: Speci men Type: BLOOD SPECIMENOrdering Facility: [facility] Address: [address] [place] [address] Performed By: #### 5 7021-8, 4537-02 ####[facility] LABCLIA [id number] [place] [address] [place] Lymphocytes (Bld) [#/Vol] 3.97 10*3/uL Normal 1.00-4.00 [facility] Comment on above: Order Comment: Speci men Type: BLOOD SPECIMENOrdering Facility: [facility] Address: [address] [place] [address] Performed By: #### 5 7021-8, 4536-7 ####[facility] LABCLIA [id number] [place] [address] [place] Lymphocytes/100 WBC (Bld) 35.5 % Normal [facility] Comment on above: Order Comment: Speci men Type: BLOOD SPECIMENOrdering Facility: [facility] Address: [address] [place] [address] Performed By: #### 5 7021-8, 4536-7 ####[facility]IA [id number] [place] [address] [place] MCH (RBC) [Entitic mass] 30.5 pg Normal 26.0-34.0 [facility] Comment on above: Order Comment: Speci men Type: BLOOD SPECIMENOrdering Facility: [facility] Address: [address] [place] [address] Performed By: #### 5 7021-8, 4536-7 ####[facility] LABCLIA [id number] [place] [address] [place] MCHC (RBC) [Mass/Vol] 31.4 g/dL Normal 30.5-36.0 [facility] Comment on above: Order Comment: Speci men Type: BLOOD SPECIMENOrdering Facility: [facility] Address: [address] [place] [address] Performed By: #### 5 7021-8, 4537-7 ####[facility] LABCLIA [id number] [place] [address] [place] MCV (RBC) [Entitic vol] 97.1 fL Normal 80.0-100.0 [facility] Comment on above: Order Comment: Speci men Type: BLOOD SPECIMENOrdering Facility: [facility] Address: [address] [place] [address] Performed By: #### 5 7021-8, 4536-7 ####[facility] LABCLIA [id number] [place] [address] [place] Monocytes (Bld) [#/Vol] 0.92 10*3/uL High <0.87 [facility] Comment on above: Order Comment: Speci men Type: BLOOD SPECIMENOrdering Facility: [facility] Address: [address] [place] [address] Performed By: #### 5 7021-8, 4536-7 ####[facility] LABCLIA [id number] [place] [address] [place] Monocytes/100 WBC (Bld) 8.2 % Normal [facility] Comment on above: Order Comment: Speci men Type: BLOOD SPECIMENOrdering Facility: [facility] Address: [address] [place] [address] Performed By: #### 5 7021-8, 4536-7 ####[facility] LABCLIA [id number] [place] [address] [place] Neutrophils (Bld) [#/Vol] 5.96 10*3/uL Normal 1.45-7.50 [facility] Comment on above: Order Comment: Speci men Type: BLOOD SPECIMENOrdering Facility: [facility] Address: [address] [place] [address] Performed By: #### 5 7021-8, 4536-7 ####[facility] LABCLIA [id number] [place] [address] [place] Neutrophils/100 WBC (Bld) 53.3 % Normal [facility] Comment on above: Order Comment: Speci men Type: BLOOD SPECIMENOrdering Facility: [facility] Address: [address] [place] [address] Performed By: #### 5 7021-8, 7-7 ####[facility] LABCLIA [id number] [place] [address] [place] Nucleated RBC (Bld) [#/Vol] 10*3/uL Normal <0.01 [facility] Comment on above: Order Comment: Speci men Type: BLOOD SPECIMENOrdering Facility: [facility] Address: [address] [place] [address] Performed By: #### 5 7021-8, 4536-7 ####[facility] LABIA [id number] [place] [address] [place] Nucleated RBC/100 WBC (Bld) [Ratio] 0.0 /100 WBC Normal [facility] Comment on above: Order Comment: Speci men Type: BLOOD SPECIMENOrdering Facility: [facility] Address: [address] [place] [address] Performed By: #### 5 7021-8, 4536-7 ####[facility]IA [id number] [place] [address] [place] Platelet mean volume (Bld) [Entitic vol] 10.0 fL Normal 9.0-12.7 [facility] Comment on above: Order Comment: Speci men Type: BLOOD SPECIMENOrdering Facility: [facility] Address: [address] [place] [address] Performed By: #### 5 7021-8, 4536-7 ####[facility]IA [id number] [place] [address] [place] Platelets (Bld) [#/Vol] 537 10*3/uL High 150-400 [facility] Comment on above: Order Comment: Speci men Type: BLOOD SPECIMENOrdering Facility: [facility] Address: [address] [place] [address] Performed By: #### 5 7021-8, 4537-7 ####[facility] LABCLIA [id number] [place] [id number] [place] RBC (Bld) [#/Vol] 4.53 10*6/uL Normal 3.90-5.20 [facility] Comment on above: Order Comment: Speci men Type: BLOOD SPECIMENOrdering Facility: [facility] Address: [address] [place] [address] Performed By: #### 5 7021-8, 4537-7 ####[facility] LABCLIA [id number] [place] [address] [place] WBC (Bld) [#/Vol] 11.19 10*3/uL High 3.70-11.00 [facility] Comment on above: Order Comment: Speci men Type: BLOOD SPECIMENOrdering Facility: [facility] Address: [address] [place] [address] Performed By: #### 5 7021-8, 4537-7 ####[facility] LABCLIA [id number] [place] [address] [place] CREATININE BLDon 06-01-2023 Creatinine [Mass/Vol] 0.67 mg/dL Normal 0.58-0.96 [facility] Comment on above: Order Comment: Speci men Type: BLOOD SPECIMENOrdering Facility: [facility] Address: [address] [place] [address] Performed By: #### 1 988-5, CRET1, 16593-7, 45410-9 ####[facility] LABCLIA [id number] [place] [address] [place] Creatinine and Glomerular filtration rate.predicted panel (S/P/Bld) 121 mL/min/1.73m??? Normal >=60 [facility] Comment on above: Order Comment: Speci men Type: BLOOD SPECIMENOrdering Facility: [facility] Address: [address] [place] [address] Result Comment: Imelda mated Glomerular Filtration Rate (eGFR) is calculated using the 2020 CKD-EPI creatinine equation. This equation utilizes serum creatinine, sex, and age as parameters. The creatinine assay has traceable calibration to isotope dilution-mass spectrometry. Refer to KDIGO guidelines for clinical interpretation. In patients with unstable renal function, e.g. those with acute kidney injury, the eGFR may not accurately reflect actual GFR. Performed By: #### 1 988-5, CRET1, 90745-9, 40547-5 ####[facility] LABIA [id number] [place] [address] [place] CRP SerPl-mCncon 06-01-2023 CRP [Mass/Vol] 0.6 mg/dL Normal <0.9 [facility] Comment on above: Order Comment: Speci men Type: BLOOD SPECIMENOrdering Facility: [facility] Address: [address] [place] [address] Performed By: #### 1 988-5, CREHorace, 10059-2, 42243-6 ####[facility] [id number] [place] [address] [place] ESR Westergren method (Bld) [Velocity]on 06-01-2023 ESR (Bld) [Velocity] 21 mm/h High 0-20 [facility] Comment on above: Order Comment: Speci men Type: BLOOD SPECIMENOrdering Facility: [facility] Address: [address] [place] [address] Performed By: #### 5 7021-8, 4537-7 ####[facility] [id number] [place] [address] [place] Hepatic function 2000 panelo n 06-01-2023 Albumin [Mass/Vol] 4.0 g/dL Normal 3.9-4.9 [facility] Comment on above: Order Comment: Speci men Type: BLOOD SPECIMENOrdering Facility: [facility] Address: [address] [place] [address] Performed By: #### 1 988-5, CRET1, 05161-8, 17678-9 ####[facility] LABCLIA [id number] [place] [address] [place] ALP [Catalytic activity/Vol] 83 U/L Normal 34-123 [facility] Comment on above: Order Comment: Speci men Type: BLOOD SPECIMENOrdering Facility: [facility] Address: [address] [place] [address] Performed By: #### 1 988-5, CRET1, 21747-7, 53609-5 ####[facility] LABIA [id number] [place] [address] [place] ALT [Catalytic activity/Vol] 19 U/L Normal 7-38 [facility] Comment on above: Order Comment: Speci men Type: BLOOD SPECIMENOrdering Facility: [facility] Address: [address] [place] [address] Performed By: #### 1 988-5, CRET1, 16454-3, 01620-1 ####[facility] LABIA [id number] [place] [address] [place] AST [Catalytic activity/Vol] 21 U/L Normal 13-35 [facility] Comment on above: Order Comment: Speci men Type: BLOOD SPECIMENOrdering Facility: [facility] Address: [address] [place] [address] Performed By: #### 1 988-5, CRET1, 82183-4, 77650-6 ####[facility] LABIA [id number] [place] [address] [place] Bilirubin [Mass/Vol] 0.3 mg/dL Normal 0.2-1.3 [facility] Comment on above: Order Comment: Speci men Type: BLOOD SPECIMENOrdering Facility: [facility] Address: [address] [place] [address] Performed By: #### 1 988-5, CRET1, 40547-9, 33687-5 ####[facility] LABCLIA [id number] [address] [address] [place] Bilirubin.conjugated [Mass/Vol] mg/dL Normal <0.2 [facility] Comment on above: Order Comment: Speci men Type: BLOOD SPECIMENOrdering Facility: [facility] Address: [address] [place] [address] Performed By: #### 1 988-5, CRET1, 20553-3, 25873-5 ####[facility] LABCLIA [id number] [place] [address] [place] Protein [Mass/Vol] 7.2 g/dL Normal 6.3-8.0 [facility] Comment on above: Order Comment: Speci men Type: BLOOD SPECIMENOrdering Facility: [facility] Address: [address] [place] [address] Performed By: #### 1 988-5, CRET1, 38401-9, 01474-2 ####[facility] LABCLIA [id number] [place] [address] [place] Lipid 1996 panelon 202 3 Cholesterol [Mass/Vol] 210 mg/dL High <200 [facility] Comment on above: Order Comment: Speci men Type: BLOOD SPECIMENOrdering Facility: [facility] Address: [address] [place] [address] Result Comment: <200 mg/dL, Desirable 200-239 mg/dL, Borderline high>239 mg/dL, High Performed By: #### 1 988-5, CRET1, 15719-1, 41017-3 ####[facility] LABIA [id number] [place] [address] [place] Cholesterol in HDL [Mass/Vol] 58 mg/dL Normal >39 [facility] Comment on above: Order Comment: Speci men Type: BLOOD SPECIMENOrdering Facility: [facility] Address: [address] [place] [address] Result Comment: 40-5 9 mg/dL, Acceptable>59 mg/dL, High: Negative risk factor for coronary heart disease<40 mg/dL, Low: Positive risk factor for coronary heart disease Performed By: #### 1 988-5, CREHorace, , 34811-6 ####[facility] LABCLIA [id number] [address] [address] [place] Cholesterol in LDL [Mass/Vol] 130 mg/dL High <100 [facility] Comment on above: Order Comment: Speci men Type: BLOOD SPECIMENOrdering Facility: [facility] Address: [address] [place] [address] Result Comment: <100 mg/dL, Optimal 100-129 mg/dL, Near optimal/above optimal 130-159 mg/dL, Borderline high 160-189 mg/dL, High>189 mg/dL, Very highSecondary prevention optimal LDL Cholesterol levels are recommended to be < 70 mg/dL Performed By: #### 1 988-5, CREHorace, , ####[facility] LABCLIA [id number] [place] [address] [place] Cholesterol in LDL/Cholesterol in HDL [Mass ratio] 2.24 {ratio} Normal <2.54 [facility] Comment on above: Order Comment: Speci men Type: BLOOD SPECIMENOrdering Facility: [facility] Address: [address] [place] [address] Result Comment: Refchris millsce:1. National Cholesterol Education Program ATP III Guideline At-A-Glance Quick Desk Reference: National Heart, Lung, and Blood [place]. National Institutes of Health. 2001: NIH Publication No. 01-3305.2. An International Atherosclerosis Society position paper: global recommendations for the management of dyslipidemia: executive summary, Atherosclerosis. 2014: 232(2):410-413. Performed By: #### 1 988-5, CREHorace, , ####[facility] LABCLIA [id number] [place] [address] [place] Cholesterol in VLDL [Mass/Vol] 22 mg/dL Normal <30 [facility] Comment on above: Order Comment: Speci men Type: BLOOD SPECIMENOrdering Facility: [facility] Address: [address] [place] [address] Performed By: #### 1 988-5, CRET1, 05807-1, 30242-4 ####[facility] LABCLIA [id number] [place] [address] [place] Cholesterol non HDL [Mass/Vol] 152 mg/dL High <130 [facility] Comment on above: Order Comment: Speci men Type: BLOOD SPECIMENOrdering Facility: [facility] Address: [address] [place] [address] Result Comment: <130 mg/dL, Optimal 130-159 mg/dL, Near optimal/above optimal 160-189 mg/dL, Borderline high 190-219 mg/dL, High>219 mg/dL, Very highSecondary prevention optimal non HDL Cholesterol levels are recommended to be <100 mg/dL Performed By: #### 1 988-5, CRET1, 19926-6, 93636-0 ####[facility] LABCLIA [id number] [place] [address] [place] Cholesterol.total/Cho lesterol in HDL [Mass ratio] 3.62 {ratio} Normal <5.10 [facility] Comment on above: Order Comment: Speci men Type: BLOOD SPECIMENOrdering Facility: [facility] Address: [address] [place] [address] Performed By: #### 1 988-5, CRET1, 96697-6, 81567-7 ####[facility] LABCLIA [id number] [place] [address] [place] FASTING TIME 12 hrs Normal [facility] Comment on above: Order Comment: Speci men Type: BLOOD SPECIMENOrdering Facility: [facility] Address: [address] [place] [address] Performed By: #### 1 988-5, CRET1, 91561-1, 40648-7 ####[facility] LABCLIA [id number] [place] [address] [place] Triglyceride [Mass/Vol] 111 mg/dL Normal <150 [facility] Comment on above: Order Comment: Speci men Type: BLOOD SPECIMENOrdering Facility: [facility] Address: [address] [place] [address] Result Comment: <150 mg/dL, Normal 150-199 mg/dL, Borderline high 200-499 mg/dL, High>499 mg/dL, Very high Performed By: #### 1 988-5, CRET1, 29440-6, 00878-5 ####[facility] LABCLIA [id number] [place] [address] [place] CNOVon 05-20-2023 CNOV Normal [facility] [id number] 05-20-2023 ECG01 Normal [facility] ALLIED HEALTHon 05-19-2023 ALLIED HEALTH HNO ID: [id number] Author: Jose Herrera Tech Service: ? Author Type: Technologist Type: Allied Health Filed: 05/19/2023 1:12 AM Note Text: Radiology Service Progress Note PATIENT NAME: Liliam Thompson DATE OF SERVICE: May 19, 2023 TIME: 1:12 AM PATIENT IDENTITY VERIFICATION COMPLETED USING TWO (2) IDENTIFIERS: Name and Date of confirmed by patient verbally and Name and Date of confirmed by identification band. FALL SCREENING: Has the patient had 2 falls in the last year or 1 fall with injury or currently using an Ambulatory Assistive Device (Walker, Cane, Wheelchair, Crutches, etc.)? No PATIENT GENDER DATA: Female. status: : No status: NO. PATIENT RELEVANT IMPLANT DATA REVIEWED: Yes RADIOLOGY DEPARTMENT: General X-ray: Exam(s) Completed: Chest X-Ray PERIPHERAL IV DATA: Not applicable SIGNED BY: Saima Fuchs May 19, 2023 1:12 AM Normal [facility] CBC panel Auto (Bld)on 05-19 Erythrocyte distribution width (RBC) [Ratio] 12.2 % Normal 11.5-15.0 [facility] Comment on above: Order Comment: Speci men Type: BLOOD SPECIMENOrdering Facility: [facility] Address: [address] [place] [address] Performed By: #### 5 8410-2 ####[facility] [id number] [address] [place] [address] [place] Hematocrit (Bld) [Volume fraction] 41.1 % Normal 36.0-46.0 [facility] Comment on above: Order Comment: Speci men Type: BLOOD SPECIMENOrdering Facility: [facility] Address: [address] [place] [address] Performed By: #### 5 8410-2 ####[facility] [id number] [address] [place] [address] [place] Hemoglobin (Bld) [Mass/Vol] 13.5 g/dL Normal 11.5-15.5 [facility] Comment on above: Order Comment: Speci men Type: BLOOD SPECIMENOrdering Facility: [facility] Address: [address] [place] [address] Performed By: #### 5 8410-2 ####[facility] [id number] [address] [place] [address] [place] MCH (RBC) [Entitic mass] 31.1 pg Normal 26.0-34.0 [facility] Comment on above: Order Comment: Speci men Type: BLOOD SPECIMENOrdering Facility: [facility] Address: [address] [place] [address] Performed By: #### 5 8410-2 ####[facility] [id number] [address] [place] [address] [place] MCHC (RBC) [Mass/Vol] 32.8 g/dL Normal 30.5-36.0 [facility] Comment on above: Order Comment: Speci men Type: BLOOD SPECIMENOrdering Facility: [facility] Address: [address] [place] [address] Performed By: #### 5 8410-2 ####[facility] [id number] [address] [place], [place] [id number] [place] MCV (RBC) [Entitic vol] 94.7 fL Normal 80.0-100.0 [facility] Comment on above: Order Comment: Speci men Type: BLOOD SPECIMENOrdering Facility: [facility] Address: [address] [place] [address] Performed By: #### 5 8410-2 ####[facility]ORY[facility] [id number] [place] [id number] [place] Nucleated RBC (Bld) [#/Vol] 10*3/uL Normal <0.01 [facility] Comment on above: Order Comment: Speci men Type: BLOOD SPECIMENOrdering Facility: [facility] Address: [address] [place] [address] Performed By: #### 5 8410-2 ####[facility]ORY[facility]IA [id number] [place] [address] [place] Platelet mean volume (Bld) [Entitic vol] 9.9 fL Normal 9.0-12.7 [facility] Comment on above: Order Comment: Speci men Type: BLOOD SPECIMENOrdering Facility: [facility] Address: [address] [place] [address] Performed By: #### 5 8410-2 ####[facility]ORY[facility] [id number] [place] [address] [place] Platelets (Bld) [#/Vol] 510 10*3/uL High 150-400 [place] [facility] Comment on above: Order Comment: Speci men Type: BLOOD SPECIMENOrdering Facility: [facility] Address: [address] [place] [address] Performed By: #### 5 8410-2 ####[facility] LABORATORYCLIA [id number] [place] [address] [place] RBC (Bld) [#/Vol] 4.34 10*6/uL Normal 3.90-5.20 [facility] Comment on above: Order Comment: Speci men Type: BLOOD SPECIMENOrdering Facility: [facility] Address: [address] [place] [address] Performed By: #### 5 8410-2 ####[facility] LABORATORYCLIA [id number] [place] [id number] [place] WBC (Bld) [#/Vol] 12.65 10*3/uL High 3.70-11.00 [facility] Comment on above: Order Comment: Speci men Type: BLOOD SPECIMENOrdering Facility: [facility] Address: [place] [address] Performed By: #### 5 8410-2 ####[facility] LABORATORYCLIA [id number] [address] Comprehensive metabolic 2000 panelon 05-19-2023 Albumin [Mass/Vol] 4.1 g/dL Normal 3.9-4.9 [facility] Comment on above: Order Comment: Speci men Type: BLOOD SPECIMENOrdering Facility: [facility] Address: [address] [place] [address] Performed By: #### 3 016-3, 28727-9, 80546-3, [id number] ####[facility] LABORATORYCLIA [id number] [place] [id number] [place] ALP [Catalytic activity/Vol] 104 U/L Normal 34-123 [facility] Comment on above: Order Comment: Speci men Type: BLOOD SPECIMENOrdering Facility: [facility] Address: [address] [place] [address] Performed By: #### 3 016-3, 48058-2, 08845-4, [id number] ####[facility] LABORATORYCLIA [id number] [place] [id number] [place] [facility] ALT [Catalytic activity/Vol] 22 U/L Normal 7-38 [facility] Comment on above: Order Comment: Speci men Type: BLOOD SPECIMENOrdering Facility: [facility] Address: [address] [place] [address] Performed By: #### 3 016-3, 08338-2, 95869-5, [id number] ####[facility] LABORATORYCLIA [id number] [place] [id number] [place] Anion gap [Moles/Vol] 12 mmol/L Normal 9-18 [facility] Comment on above: Order Comment: Speci men Type: BLOOD SPECIMENOrdering Facility: [facility] Address: [place] [address] Performed By: #### 3 016-3, 78460-3, , [id number] ####[facility] LABORATORYCLIA [id number] [place] [id number] [place] AST [Catalytic activity/Vol] 19 U/L Normal 13-35 [facility] Comment on above: Order Comment: Speci men Type: BLOOD SPECIMENOrdering Facility: [facility] Address: [address] [place] [address] Performed By: #### 3 016-3, 93470-3, , [id number] ####[facility] LABORATORYCLIA [id number] [address] [place] [address] [place] Bilirubin [Mass/Vol] mg/dL Low 0.2-1.3 [facility] Comment on above: Order Comment: Speci men Type: BLOOD SPECIMENOrdering Facility: [facility] Address: [address] [place] [address] Performed By: #### 3 016-3, 31528-6, , [id number] ####[facility] LABORATORYCLIA [id number] [place] [id number] [place] Calcium [Mass/Vol] 9.2 mg/dL Normal 8.5-10.2 [facility] Comment on above: Order Comment: Speci men Type: BLOOD SPECIMENOrdering Facility: [facility] Address: [address] [place] [address] Performed By: #### 3 016-3, 83123-4, , [id number] ####[facility] LABORATORYCLIA [id number] [place] [id number] [place] Chloride [Moles/Vol] 106 mmol/L High 97-105 [facility] Comment on above: Order Comment: Speci men Type: BLOOD SPECIMENOrdering Facility: [facility] Address: [address] [place] [address] Performed By: #### 3 016-3, 34550-4, 89508-5, [id number] ####[facility] LABORATORYCLIA [id number] [place] [id number] [place] CO2 [Moles/Vol] 21 mmol/L Low 22-30 [facility] Comment on above: Order Comment: Speci men Type: BLOOD SPECIMENOrdering Facility: [facility] Address: [address] [place] [address] Performed By: #### 3 016-3, 55088-7, , [id number] ####[facility] LABORATORYCLIA [id number] [place] [id number] [place] Creatinine [Mass/Vol] 0.50 mg/dL Low 0.58-0.96 [facility] Comment on above: Order Comment: Speci men Type: BLOOD SPECIMENOrdering Facility: [facility] Address: [address] [place] [address] Performed By: #### 3 016-3, 64955-6, , [id number] ####[facility] LABORATORYCLIA [id number] [place] [id number] [facility] [place] Creatinine and Glomerular filtration rate.predicted panel (S/P/Bld) 130 mL/min/1.73m??? Normal >=60 [facility] Comment on above: Order Comment: Speci men Type: BLOOD SPECIMENOrdering Facility: [facility] Address: [address] [place] [address] Result Comment: Imelda mated Glomerular Filtration Rate (eGFR) is calculated using the 2020 CKD-EPI creatinine equation. This equation utilizes serum creatinine, sex, and age as parameters. The creatinine assay has traceable calibration to isotope dilution-mass spectrometry. Refer to KDIGO guidelines for clinical interpretation. In patients with unstable renal function, e.g. those with acute kidney injury, the eGFR may not accurately reflect actual GFR. Performed By: #### 3 016-3, 23061-7, 82967-2, [id number] ####[facility] LABORATORYCLIA [id number] [place] [address] [place] Glucose [Mass/Vol] 135 mg/dL High 74-99 [facility] Comment on above: Order Comment: Speci men Type: BLOOD SPECIMENOrdering Facility: [facility] Address: [address] [place] [address] Result Comment: The [place] Diabetes Association (ADA) provides guidance for cutoff values for fasting glucose and random glucose. The ADA defines fasting as no caloric intake for at least 8 hours. Fasting plasma glucose results between 100 to 125 mg/dL indicate increased risk for diabetes (prediabetes). Fasting plasma glucose results greater than or equal to 126 mg/dL meet the criteria for diagnosis of diabetes. In the absence of unequivocal hyperglycemia, results should be confirmed by repeat testing. In a patient with classic symptoms of hyperglycemia or hyperglycemic crisis, random plasma glucose results greater than or equal to 200 mg/dL meet the criteria for diagnosis of diabetes. Reference: Standards of Medical Care in Diabetes 2016, [place] Diabetes Association. Diabetes Care. 2016.39(Suppl 1). Performed By: #### 3 016-3, 03255-3, , [id number] ####[facility] LABORATORYCLIA [id number] [place] [id number] [place] Potassium [Moles/Vol] 3.9 mmol/L Normal 3.7-5.1 [facility] Comment on above: Order Comment: Speci men Type: BLOOD SPECIMENOrdering Facility: [facility] Address: [address] [place] [address] Performed By: #### 3 016-3, 63488-4, , [id number] ####[facility] LABORATORYCLIA [id number] [place] [id number] [place] Protein [Mass/Vol] 7.2 g/dL Normal 6.3-8.0 [facility] Comment on above: Order Comment: Speci men Type: BLOOD SPECIMENOrdering Facility: [facility] Address: [address] [place] [address] Performed By: #### 3 016-3, 43206-4, , [id number] ####[facility] LABORATORYCLIA [id number] [place] [address] [place] Sodium [Moles/Vol] 139 mmol/L Normal 136-144 [facility] Comment on above: Order Comment: Speci men Type: BLOOD SPECIMENOrdering Facility: [facility] Address: [address] [place] [address] Performed By: #### 3 016-3, 49712-7, 18556-5, [id number] ####[facility] LABORATORYCLIA [id number] [place] [address] [place] Urea nitrogen [Mass/Vol] 10 mg/dL Normal 7-21 [facility] Comment on above: Order Comment: Speci men Type: BLOOD SPECIMENOrdering Facility: [facility] Address: [address] [place] [address] Performed By: #### 3 016-3, 47053-9, 04767-5, [id number] ####[facility] LABORATORYCLIA [id number] [place] [id number] [place] D dimer FEU PPP-mCncon 05-19 Fibrin D-dimer FEU (PPP) [Mass/Vol] 240 ng/mL FEU Normal <500 [facility] Comment on above: Order Comment: Speci men Type: BLOOD SPECIMEN Ordering [facility]: [facility] Address: [address] [place] [address] Performed By: #### 4 8065-7 #### [facility] CLIA [id number] [place] [id number] [place] ECG COMPLETEon 05-19-2023 ECG COMPLETE Ventricular Rate : 140 BPM Atrial Rate : 140 BPM P-R Interval : 141 ms QRS Duration : 72 ms Q-T Interval : 292 ms QTC Calculation(Bazett) : 446 ms Calculated P [place] : 48 degrees Calculated R [place] : 75 degrees Calculated T [place] : -23 degrees Sinus tachycardia Low voltage, precordial leads Nonspecific T abnormalities, diffuse leads Abnormal ECG NO STEMI. 9625 Confirmed by DO PICKETT NICHOLAS ([id number]), editorial assistant MAURA NGUYEN ([id number]) on 05/19/2023 1:20:46 PM NAME : LILIAM THOMPSON : [id number] : 1990 Gender : Female Race : ORD : [id number] Procedure Date : May 18 2023 23:52:49 Edit Date : May 19 2023 13:20:47 Diagnosis: Sinus tachycardia Low voltage, precordial leads Nonspecific T abnormalities, diffuse leads Abnormal ECG NO STEMI. 2355 Confirmed by DO PICKETT NICHOLAS ([id number]), editorial assistant MAURA NGUYEN ([id number]) on 05/19/2023 1:20:46 PM Test Reason : Palpitations Location : 502 : LUED IT3 Overread By : DO PICKETT NICHOLAS Edited By : MAURA NGUYEN Referred By : , Acquired by : BY, [facility] ED NOTEon 05-19-2023 ED NOTE HNO ID: [id number] Author: Beena Camara, CASSANDRA Service: ? Author Type: Registered Nurse Type: ED Notes Filed: 05/19/2023 4:15 AM Note Text: Discharge paperwork gone over with patient. Iv discontinued. [facility] ED NOTE HNO ID: [id number] Author: Catherine Hitchcock CT Service: ? Author Type: Clinical Breakfast Cook Type: ED Notes Filed: 05/18/2023 11:45 PM Note Text: Pt to ED for palpitations that started around 2200 tonight. Pt states she had one cocktail and when she got home pt states I got nauseous, felt like I was going to pass out and my left hand and left foot felt numb. [facility] ED PROV NOTEon 05-19-2023 ED PROV NOTE HNO ID: [id number] Author: Jonathan Pickett DO Service: Emergency Medicine Author Type: Physician Type: ED Provider Notes Filed: 05/19/2023 4:14 AM Note Text: ED Provider Note Patient Name: Liliam Thompson : 1990 SERVICE DATE: 05/18/23 History Patient presents with: Palpitations Numbness Patient is a 32-year-old female presenting for palpitations. Patient reports this evening she developed a cute onset of palpitations. States that she was trying to go to bed when she felt like her heart was racing fast. States that she started getting lightheaded and felt like she was going to pass out. States that she got some chest discomfort and tightness. Also felt like she was nauseous but denies any vomiting. States by the time she is now arrived here, the lightheadedness has improved. Still feels the palpitation. Also reports that the chest tightness has improved but still present. Also reported that she developed some tingling sensation in her hands and feet worse on the left side. States that she did not feel well earlier in the day. States that she has been dealing with a migraine. States that the headache has now resolved but not sure if that is what started triggering her issues this evening. Reports that some of the chest pain is chronic. Constantly has pain in the center of her chest. States that she does have a history of fibromyalgia. Reports that some of the tightness though is different than normal. Denies any recent fevers. Denies any recent cough or congestion. Did not take anything for her symptoms. Nothing seems to be making her feel better other than resting here now in the ER. Does report that she has a history of anxiety. Not sure if this is what was causing her issues this evening. Denies any drug use this evening. Did have an alcoholic drink earlier in the day but none prior to arrival PAST MEDICAL HISTORY Diagnosis Date Anxiety Angeli Constantino Asthmatic bronchitis recurrent episodes since pneumonia fall and winter Depression Angeli Constantino Epigastric abdominal pain Fibromyalgia Dr. 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 @[facility] Migraine with aura visual aura; diagnosed with complex migraines Nausea MAXWELL (obstructive sleep apnea) 03/10/2016 PMH - PAST MEDICAL HISTORY OF age 1 1/2 febrile seizures-with varicella PMH - PAST MEDICAL HISTORY OF 6-7 months dislocated elbow PMH - PAST MEDICAL HISTORY OF menarche age 14 years PMH - PAST MEDICAL HISTORY OF 1998 normal color vision POTS (postural orthostatic tachycardia syndrome) 04/23/2018 Rectal bleeding Sinus arrhythmia Snoring Suicide attempt by acetaminophen overdose ([facility]) 06/2014 Syncope Vomiting PAST SURGICAL HISTORY Procedure Laterality Date COLONOSCOPY 05/15/2011 COLONOSCOPY FLX DX W/COLLJ SPEC WHEN PFRMD 07/03/2014 EGD TRANSORAL BIOPSY SINGLE/MULTIPLE 07/03/2014 MIRENA IUD 12/04/2021 Placed in office- Due for removal 11/2028 FAMILY HISTORY Problem Relation Age of Onset Arthritis Mother Systemic Lupus (SLE) Glaucoma Mother Coronary Artery Disease Father other (Familial idiopathic pulmonary fibrosis) Father 65 Not progressing at this time (2017) Arthritis Sister Lupus Psoriasis Brother Rheumatologic disease Maternal Aunt RA Diabetes Maternal Grandmother Hypertension Maternal Grandmother Stroke Maternal Grandmother Emphysema Maternal Grandfather Heart Maternal Grandfather other (chf) Maternal Grandfather Heart Paternal Grandfather other (Familial IPF) Paternal Grandfather Social History Tobacco Use Smoking status: Never Smokeless tobacco: Never Tobacco comments: Father and Mother smoked in home. Stopped 03/2013. Vaping Use Vaping Use: Never used Substance and Sexual Activity Alcohol use: Yes Comment: occiasionally Drug use: No Sexual activity: Yes Partners: Male ALLERGIES Allergen Reactions Latex, Natural Rubb* Hives Latex Hives Seasonal Allergies Unknown GRASSES, WEEDS AND RAGWEED VERIFIED BY SKIN TESTING Review of Systems Constitutional: Negative for fever. HENT: Negative for congestion. Respiratory: Positive for shortness of breath. Negative for cough. Cardiovascular: Positive for chest pain. Gastrointestinal: Positive for nausea. Negative for abdominal pain and vomiting. Musculoskeletal: Negative for myalgias. Neurological: Positive for light-headedness and numbness. Negative for syncope. Psychiatric/Behaviora l: The patient is nervous/anxious. All other systems reviewed and are negative. Physical Exam Vitals BP Pulse Temp Temp src Resp SpO2 Weight Height 05/18/23 2345 05/18/23 2340 05/18/23 2340 05/18/23 2340 05/18/23 2340 05/18/23 2340 05/18/23 2340 05/18/23 2340 (!) 149/125 (!) 141 36.5 ?C (97.7 ?F) Oral 18 100 % 113.4 kg (250 lb) 1.524 m (5') Physical Exam Vitals and nursing note r (more content not included)... Normal [facility] EKn 05-19-2023 Electrocardiogram Ventricular Rate : 9 2 BPM Atrial Rate : 92 BPM P-R Interval : 144 ms QRS Duration : 72 ms Q-T Interval : 332 ms QTC Calculation(Bazett) : 411 ms Calculated P [place] : 24 degrees Calculated R [place] : 38 degrees Calculated T [place] : -9 degrees Sinus rhythm Borderline Q waves in inferior leads Inferior infarct, age indeterminate Abnormal ECG NO STEMI. 0326 Confirmed by DO PICKETT NICHOLAS ([id number]), editorial assistant MAURA NGUYEN ([id number]) on 05/19/2023 1:21:17 PM NAME : LILIAM THOMPSON PID : [id number] : 1990 Gender : Female Race : ORD : Procedure Date : May 19 2023 03:19:50 Edit Date : May 19 2023 13:21:19 Diagnosis: Sinus rhythm Borderline Q waves in inferior leads Inferior infarct, age indeterminate Abnormal ECG NO STEMI. 0326 Confirmed by DO PICKETT NICHOLAS ([id number]), editorial assistant MAURA NGUYEN ([id number]) on 05/19/2023 1:21:17 PM Test Reason : Location : 502 : LU 14 Overread By : DO PICKETT NICHOLAS Edited By : MAURA NGUYEN Referred By : , Acquired by : BY, Normal [facility] HCG QUAL BLDon 05-19-2023 HCG, QUALITATIVE Negative Normal Negative [facility] Comment on above: Order Comment: Krystyna armstrong Type: BLOOD SPECIMEN [facility]: [facility] Address: [address] [place] [address] Performed By: #### H CG #### [facility] CLIA [id number] [address] [place] [address] [facility] [place] HIGH SENSITIVITY TROPONIN T (INITIAL)on 05-19-2023 Troponin T.cardiac High sensitivity method [Mass/Vol] <6 Normal <12 [facility] Comment on above: Order Comment: Krystyna armstrong Type: BLOOD SPECIMENOrdering Facility: [facility] Address: [address] [place] [address] Result Comment: When assessing risk for acute coronary syndromes: In patients undergoing blood draw greater than or equal to 2 hours from symptom onset, with history of very low to moderate risk and non-ischemic ECG, an initial hs-Troponin T less than 12 ng/L AND a 1 hour delta hs-Troponin T less than 3 ng/L should be considered very low risk for 30 day MACE. Performed By: #### 3 016-3, 27730-4, 64940-2, [id number] ####[facility] LABORATORYCLIA [id number] [address] [address] [place] HIGH SENSITIVITY TROPONIN T (SECOND)on 05-19-2023 Troponin T.cardiac High sensitivity method [Mass/Vol] <6 Normal <12 [facility] Comment on above: Order Comment: Speci men Type: BLOOD SPECIMEN Ordering Facility: [facility] Address: [address] [place] [address] Result Comment: When assessing risk for acute coronary syndromes: In patients undergoing blood draw greater than or equal to 2 hours from symptom onset, with history of very low to moderate risk and non-ischemic ECG, an initial hs-Troponin T less than 12 ng/L AND a 1 hour delta hs-Troponin T less than 3 ng/L should be considered very low risk for 30 day MACE. Performed By: #### L [id number] #### [facility] CLIA [id number] [address] [place] [address] [place] Magnesium SerPl-mCncon 05-19 Magnesium [Mass/Vol] 1.8 mg/dL Normal 1.7-2.3 [facility] Comment on above: Order Comment: Speci men Type: BLOOD SPECIMENOrdering Facility: [facility] Address: [address] [place] [address] Performed By: #### 3 016-3, 60033-0, 42350-5, [id number] ####[facility] LABORATORYCLIA [id number] [place] [address] [place] TOX SCREEN ROUT URon 023 Amphetamines Confirm (U) [Mass/Vol] Negative Normal Negative [facility] Comment on above: Order Comment: Speci men Type: URINE SPECIMEN Ordering [facility]: [facility] Address: [address] [place] [address] Result Comment: Cuto ff threshold at 1000 ng/mL. Performed By: #### U TOX2 #### [facility] CLIA [id number] [address] [place] [address] [place] BARBITURATES, URINE Negative Normal Negative [facility] Comment on above: Order Comment: Speci men Type: URINE SPECIMEN [facility]ing Facility: [facility] Address: [address] [place] [address] Result Comment: Cuto ff threshold at 200 ng/mL. Performed By: #### U TOX2 #### [facility] CLIA [id number] [address] [place] [address] [place] BENZODIAZEPINES, UR Negative Normal Negative [facility] Comment on above: Order Comment: Speci men Type: URINE SPECIMEN Ordering Facility: [facility] Address: [address] [place] [address] Result Comment: Cuto ff threshold at 200 ng/mL. Performed By: #### U TOX2 #### [facility] CLIA [id number] [address] [place] [address] [place] Cannabinoids Screen Ql (U) Negative Normal Negative [facility] Comment on above: Order Comment: Speci men Type: URINE SPECIMEN Ordering Facility: [facility] Address: [address] [place] [address] Result Comment: Cuto ff threshold at 50 ng/mL. Performed By: #### U TOX2 #### [facility] CLIA [id number] [address] [place] [address] [place] Cocaine Ql (U) Negative Normal Negative [facility] Comment on above: Order Comment: Speci men Type: URINE SPECIMEN Ordering Facility: [facility] Address: [address] [place] [address] Result Comment: Cuto ff threshold at 300 ng/mL. Performed By: #### U TOX2 #### [facility] CLIA [id number] [address] [place] [address] [place] Ethanol (U) [Mass/Vol] <11 Normal <11 [facility] Comment on above: Order Comment: Speci men Type: URINE SPECIMEN Ordering Facility: [facility] Address: [address] [place] [address] Performed By: #### U TOX2 #### [facility] CLIA [id number] [address] [place] [address] [place] Opiates Screen Ql (U) Negative Normal Negative [facility] Comment on above: Order Comment: Speci men Type: URINE SPECIMEN Ordering Facility: [facility] Address: [address] [place] [address] Result Comment: Cuto ff threshold at 300 ng/mL. Performed By: #### U TOX2 #### [facility] CLIA [id number] [address] [place] [address] [place] oxyCODONE cutoff Screen (U) [Mass/Vol] Negative Normal Negative [facility] Comment on above: Order Comment: Speci men Type: URINE SPECIMEN Ordering Facility: [facility] Address: [address] [place] [address] Result Comment: Cuto ff threshold at 100 ng/mL. Performed By: #### U TOX2 #### [facility] CLIA [id number] [address] [place] [address] OF [place] Phencyclidine Ql (U) Negative Normal Negative [facility] Comment on above: Order Comment: Speci men Type: URINE SPECIMEN Ordering Facility: [facility] Address: [address] [place] [address] Result Comment: Cuto ff threshold at 25 ng/mL. Performed By: #### U TOX2 #### [facility] CLIA [id number] [address] [place] [address] [place] TSH SerPl-aCncon 05-19-2023 TSH Qn 5.640 m[IU]/L High 0.270-4.200 [facility] Comment on above: Order Comment: Speci men Type: BLOOD SPECIMENOrdering Facility: [facility] Address: [address] [place] [address] Result Comment: If t he patient is , TSH reference range varies by gestational period: First Trimester (weeks 9-12): 0.180-2.990 mIU/L Second Trimester: 0.110-3.980 mIU/L Third Trimester: 0.480-4.710 mIU/L Mark Cheng et al. A Practical Approach for the Verifications and Determination of Site- and Trimester-Specific Reference Intervals for Thyroid Function tests in . Thyroid, 2019:29:3:412-420. Rickey Perez, et al. 2017 Guidelines of the [place] Thyroid Association for the Diagnosis and Management of Thyroid Disease during and the . Thyroid, 2017:27:3:315-389. Performed By: #### 3 016-3, 07935-9, 97471-1, [id number] ####[facility] [id number] [address] Urinalysis complete panel (U )on 05-19-2023 Bacteria LM.HPF (Urine sed) [#/Area] Moderate Abnormal None Seen [facility] Comment on above: Order Comment: Speci men Type: URINE SPECIMEN Ordering Facility: [facility] Address: [address] [place] [address] Performed By: #### 2 4356-8 #### [facility] CLIA [id number] [address] [place] [address] [place] Bilirubin Ql (U) Negative Normal Negative [facility] Comment on above: Order Comment: Speci men Type: URINE SPECIMEN Ordering Facility: [facility] Address: [address] [place] [address] Performed By: #### 2 4356-8 #### [facility] CLIA [id number] [address] [place] [address] [place] Clarity (Unsp spec) Clear Normal Clear [facility] Comment on above: Order Comment: Speci men Type: URINE SPECIMEN Ordering Facility: [facility] Address: [address] [place] [address] Performed By: #### 2 4356-8 #### [facility] CLIA [id number] [address] [place] [address] STATES [facility] Color (U) Yellow Normal Yellow [facility] Comment on above: Order Comment: Speci men Type: URINE SPECIMEN Ordering Facility: [facility] Address: [address] [place] [address] Performed By: #### 2 4356-8 #### [facility] CLIA [id number] [address] [place] [address] [place] Epithelial cells LM.HPF (Urine sed) [#/Area] Few Normal [facility] Comment on above: Order Comment: Speci men Type: URINE SPECIMEN Ordering Facility: [facility] Address: [address] [place] [address] Performed By: #### 2 4356-8 #### [facility] CLIA [id number] [address] [place] [address] [place] Glucose Test strip (U) [Mass/Vol] Negative Normal Negative [facility] Comment on above: Order Comment: Speci men Type: URINE SPECIMEN Ordering Facility: [facility] Address: [address] [place] [address] Performed By: #### 2 4356-8 #### [facility] CLIA [id number] [address] [place] [address] [place] Hemoglobin Ql (U) Negative Normal Negative [facility] Comment on above: Order Comment: Speci men Type: URINE SPECIMEN Ordering Facility: [facility] Address: [address] [place] [address] Performed By: #### 2 4356-8 #### [facility] CLIA [id number] [address] [place] [address] STATES [facility] Ketones Ql (U) Negative Normal Negative [facility] Comment on above: Order Comment: Speci men Type: URINE SPECIMEN Ordering Facility: [facility] Address: [address] [place] [address] Performed By: #### 2 4356-8 #### [facility] CLIA [id number] [address] [place] [address] Leukocyte esterase Test strip Ql (U) Negative Normal Negative [facility] Comment on above: Order Comment: Speci men Type: URINE SPECIMEN Ordering Facility: [facility] Address: [address] [place] [address] Performed By: #### 2 4356-8 #### [facility] CLIA [id number] [address] [place] [address] [place] Nitrite Ql (U) Negative Normal Negative [facility] Comment on above: Order Comment: Speci men Type: URINE SPECIMEN Ordering Facility: [facility] Address: [address] [place] [address] Performed By: #### 2 4356-8 #### [facility] CLIA [id number] [address] [place] [address] [place] pH (U) 6.0 [pH] Normal 5.0-8.0 [facility] Comment on above: Order Comment: Speci men Type: URINE SPECIMEN Ordering Facility: [facility] Address: [address] [place] [address] Performed By: #### 2 4356-8 #### [facility] CLIA [id number] [address] [place] [address] [place] Protein (U) [Mass/Vol] Negative Normal Negative [facility] Comment on above: Order Comment: Speci men Type: URINE SPECIMEN Ordering Facility: [facility] Address: [address] [place] [address] Performed By: #### 2 4356-8 #### [facility] IA [id number] [address] [place] [address] [place] RBC LM.HPF (Urine sed) [#/Area] 0-3 /HPF Normal 0-3 /HPF [facility] Comment on above: Order Comment: Speci men Type: URINE SPECIMEN Ordering Facility: [facility] Address: [address] [place] [address] Performed By: #### 2 4356-8 #### [facility] IA [id number] [address] [place] [address] [place] Specific gravity (U) [Rel density] <=1.005 Low 1.005-1.030 [facility] Comment on above: Order Comment: Speci men Type: URINE SPECIMEN Ordering Facility: [facility] Address: [address] [place] [address] Performed By: #### 2 4356-8 #### [facility] CLIA [id number] [address] [place] [address] [place] Urobilinogen Ql (U) 0.2 EU/dL Normal 0.2-1.0 EU/dL [facility] Comment on above: Order Comment: Speci men Type: URINE SPECIMEN Ordering Facility: [facility] Address: [address] [place] [address] Performed By: #### 2 4356-8 #### [facility] CLIA [id number] [address] [place] [address] [place] WBC LM.HPF (Urine sed) [#/Area] 0-5 /HPF Normal 0-5 /HPF [facility] Comment on above: Order Comment: Speci men Type: URINE SPECIMEN Ordering Facility: [facility] Address: [address] [place] [address] Performed By: #### 2 4356-8 #### [facility] CLIA [id number] [address] [place], [place] [address] [place] XR CHEST 2V FRONTAL/LATon XR CHEST 2V FRONTAL/LAT * * *Final Report* * * DATE OF EXAM: May 19 2023 1:14AM LUX 5291 - XR CHEST 2V FRONTAL/LAT / PROCEDURE REASON: Other * * * * Physician Interpretation * * * * EXAMINATION: 2 VIEW CHEST RADIOGRAPH (PA/AP AND LATERAL) PATIENT/TECHNOLOGIST PROVIDED HISTORY: chest pain CLINICAL INFORMATION ( PROVIDED BY ORDERING CLINICIAN) : Chest pain Comparison: 06/05/2020 RESULT: Lines, tubes, and devices: None. Lungs and pleura: No confluent infiltrate, large pleural effusion or pneumothorax. Cardiomediastinal silhouette: Within normal limits. Other: No acute bony abnormality identified. IMPRESSION: No significant acute radiographic abnormality of the chest. Veneer Glue Spreader: REUBEN Transcribe Date/Time: May 19 2023 1:53A Dictated by : SELMA RUDD MD This examination was interpreted and the report reviewed and electronically signed by: SELMA RUDD MD on May 19 2023 1:53AM EST [id number] N Normal [facility] ALT SerPl-cCncon 03-25-2023 ALT [Catalytic activity/Vol] 23 U/L Normal 7-38 [facility] Comment on above: Order Comment: Speci men Type: BLOOD SPECIMEN Ordering Facility: [facility] Address: [address] [place] [id number] Performed By: #### 1 742-6, 1920-8, 3094-0, CRET1, 1987- #### [facility] CLIA [id number] [address] [place] [id number] [place] AST SerPl-cCncon 03-25-2023 AST [Catalytic activity/Vol] 24 U/L Normal 13-35 [facility] Comment on above: Order Comment: Speci men Type: BLOOD SPECIMEN Ordering Facility: [facility] Address: [address] [place] [address] Performed By: #### 1 742-6, 1920-03, 3094-0, CRET1, 1987-12 #### [facility] CLIA [id number] [address] [place] [address] [place] BUN SerPl-mCncon 03-25-2023 Urea nitrogen [Mass/Vol] 6 mg/dL Low 7-21 [facility] Comment on above: Order Comment: Speci men Type: BLOOD SPECIMEN Ordering Facility: [facility] Address: [address] [place] [address] Performed By: #### 1 742-6, 1920-03, 3094-0, CRET1, 1987-12 #### [facility] CLIA [id number] [address] [place] [address] [place] CBC W Auto Differential pane l (Bld)on 03-25-2023 Basophils (Bld) [#/Vol] 0.04 10*3/uL Normal <0.11 [facility] Comment on above: Order Comment: Speci men Type: BLOOD SPECIMEN Ordering Facility: [facility] Address: [address] [place] [address] Performed By: #### 5 7021-8 #### [facility] CLIA [id number] [address] [place] [address] [place] Basophils/100 WBC (Bld) 0.5 % Normal [facility] Comment on above: Order Comment: Speci men Type: BLOOD SPECIMEN Ordering Facility: [facility] Address: [address] [place] [address] Performed By: #### 5 7021-8 #### [facility] CLIA [id number] [address] [place] [address] [place] Differential cell count method Nom (Bld) Auto Normal [facility] Comment on above: Order Comment: Speci men Type: BLOOD SPECIMEN Ordering Facility: [facility] Address: [address] [address] Performed By: #### 5 7021-8 #### [facility] CLIA [id number] [address] [place] [address] [place] Eosinophils (Bld) [#/Vol] 0.12 10*3/uL Normal <0.46 [facility] Comment on above: Order Comment: Speci men Type: BLOOD SPECIMEN Ordering Facility: [facility] Address: [address] [place] [address] Performed By: #### 5 7021-8 #### [facility] CLIA [id number] [address] [place] [address] [place] Eosinophils/100 WBC (Bld) 1.6 % Normal [facility] Comment on above: Order Comment: Speci men Type: BLOOD SPECIMEN Ordering Facility: [facility] Address: [address] [place] [address] Performed By: #### 5 7021-8 #### [facility] CLIA [id number] [address] [place] [address] [place] Erythrocyte distribution width (RBC) [Ratio] 11.9 % Normal 11.5-15.0 [facility] Comment on above: Order Comment: Speci men Type: BLOOD SPECIMEN Ordering Facility: [facility] Address: [address] [place] [address] Performed By: #### 5 7021-8 #### [facility] CLIA [id number] [address] [place] [address] [place] Hematocrit (Bld) [Volume fraction] 40.9 % Normal 36.0-46.0 [facility] Comment on above: Order Comment: Speci men Type: BLOOD SPECIMEN Ordering Facility: [facility] Address: [address] [place] [address] Performed By: #### 5 7021-8 #### [facility] CLIA [id number] [address] [place], [place] [address] [place] Hemoglobin (Bld) [Mass/Vol] 13.3 g/dL Normal 11.5-15.5 [facility] Comment on above: Order Comment: Speci men Type: BLOOD SPECIMEN Ordering Facility: [facility] Address: [address] [place] [address] Performed By: #### 5 7021-8 #### [facility] CLIA [id number] [address] [place] [address] [place] Immature granulocytes (Bld) [#/Vol] 10*3/uL Normal <0.10 [facility] Comment on above: Order Comment: Speci men Type: BLOOD SPECIMEN Ordering Facility: [facility] Address: [address] [place] [address] Performed By: #### 5 7021-8 #### [facility] CLIA [id number] [address] [place] [address] [place] Immature granulocytes/100 WBC (Bld) 0.3 % Normal [facility] Comment on above: Order Comment: Speci men Type: BLOOD SPECIMEN Ordering Facility: [facility] Address: [address] [place] [address] Performed By: #### 5 7021-8 #### [facility] CLIA [id number] [address] [place] [address] [place] Lymphocytes (Bld) [#/Vol] 2.91 10*3/uL Normal 1.00-4.00 [facility] Comment on above: Order Comment: Speci men Type: BLOOD SPECIMEN Ordering Facility: [facility] Address: [address] [place] [address] Performed By: #### 5 7021-8 #### [facility] CLIA [id number] [address] [place] [address] [place] Lymphocytes/100 WBC (Bld) 37.8 % Normal [facility] Comment on above: Order Comment: Speci men Type: BLOOD SPECIMEN Ordering Facility: [facility] Address: [address] [place] [address] Performed By: #### 5 7021-8 #### [facility] CLIA [id number] [address] [place] [address] [place] MCH (RBC) [Entitic mass] 30.9 pg Normal 26.0-34.0 [facility] Comment on above: Order Comment: Speci men Type: BLOOD SPECIMEN Ordering Facility: [facility] Address: [address] [place] [address] Performed By: #### 5 7021-8 #### [facility] CLIA [id number] [address] [place] [address] [place] MCHC (RBC) [Mass/Vol] 32.5 g/dL Normal 30.5-36.0 [facility] Comment on above: Order Comment: Speci men Type: BLOOD SPECIMEN Ordering Facility: [facility] Address: [address] [place] [address] Performed By: #### 5 7021-8 #### [facility] CLIA [id number] [address] [place] [address] [place] MCV (RBC) [Entitic vol] 94.9 fL Normal 80.0-100.0 [facility] Comment on above: Order Comment: Speci men Type: BLOOD SPECIMEN Ordering Facility: [facility] Address: [address] [place] [address] Performed By: #### 5 7021-8 #### [facility] CLIA [id number] [address] [place] [address] [place] Monocytes (Bld) [#/Vol] 0.71 10*3/uL Normal <0.87 [facility] Comment on above: Order Comment: Speci men Type: BLOOD SPECIMEN Ordering Facility: [facility] Address: [address] [place] [address] Performed By: #### 5 7021-8 #### [facility] CLIA [id number] [address] [place] [address] [place] Monocytes/100 WBC (Bld) 9.2 % Normal [facility] Comment on above: Order Comment: Speci men Type: BLOOD SPECIMEN Ordering Facility: [facility] Address: [address] [address] Performed By: #### 5 7021-8 #### [facility] CLIA [id number] [address] [place] [address] [place] Neutrophils (Bld) [#/Vol] 3.89 10*3/uL Normal 1.45-7.50 [facility] Comment on above: Order Comment: Speci men Type: BLOOD SPECIMEN Ordering Facility: [facility] Address: [address] [address] Performed By: #### 5 7021-8 #### [facility] CLIA [id number] [address] [place] [address] [place] Neutrophils/100 WBC (Bld) 50.6 % Normal [facility] Comment on above: Order Comment: Speci men Type: BLOOD SPECIMEN Ordering Facility: [facility] Address: [address] [place] [address] Performed By: #### 5 7021-8 #### [facility] CLIA [id number] [address] [place] [address] [place] Nucleated RBC (Bld) [#/Vol] 10*3/uL Normal <0.01 [facility] Comment on above: Order Comment: Speci men Type: BLOOD SPECIMEN Ordering Facility: [facility] Address: [address] [place] [address] Performed By: #### 5 7021-8 #### [facility] CLIA [id number] [address] [place] [address] [place] Nucleated RBC/100 WBC (Bld) [Ratio] 0.0 /100 WBC Normal [facility] Comment on above: Order Comment: Speci men Type: BLOOD SPECIMEN Ordering Facility: [facility] Address: [address] [place] [address] Performed By: #### 5 7021-8 #### [facility] CLIA [id number] [address] [place] [address] [place] Platelet mean volume (Bld) [Entitic vol] 9.7 fL Normal 9.0-12.7 [facility] Comment on above: Order Comment: Speci men Type: BLOOD SPECIMEN Ordering Facility: [facility] Address: [address] [address] Performed By: #### 5 7021-8 #### [facility] CLIA [id number] [address] [place] [address] [place] Platelets (Bld) [#/Vol] 439 10*3/uL High 150-400 [facility] Comment on above: Order Comment: Speci men Type: BLOOD SPECIMEN Ordering Facility: [facility] Address: [address] [place] [address] Performed By: #### 5 7021-8 #### [facility] IA [id number] [address] [place] [address] [place] RBC (Bld) [#/Vol] 4.31 10*6/uL Normal 3.90-5.20 [facility] Comment on above: Order Comment: Speci men Type: BLOOD SPECIMEN Ordering Facility: [facility] Address: [address] [place] [address] Performed By: #### 5 7021-8 #### [facility] IA [id number] [address] [place] [address] [place] WBC (Bld) [#/Vol] 7.69 10*3/uL Normal 3.70-11.00 [facility] Comment on above: Order Comment: Speci men Type: BLOOD SPECIMEN Ordering Facility: [facility] Address: [address] [place] [address] Performed By: #### 5 7021-8 #### [facility] CLIA [id number] [address] [place] [address] [place] CREATININE BLDon 03-25-2023 Creatinine [Mass/Vol] 0.73 mg/dL Normal 0.58-0.96 [facility] Comment on above: Order Comment: Speci men Type: BLOOD SPECIMEN Ordering Facility: [facility] Address: [address] [place] [address] Performed By: #### 1 742-6, 1920-03, 3093-0, CRE1987-12 #### [facility] CLIA [id number] [address] [place] [address] [place] ESTIMATED GLOMERULAR FILTRATION RATE 114 mL/min/1.73m??? Normal >=60 [facility] Comment on above: Order Comment: Krystyna armstrong Type: BLOOD SPECIMEN Ordering Facility: [facility] Address: [address] [place] [address] Result Comment: Imelda mated Glomerular Filtration Rate (eGFR) is calculated using the 2020 CKD-EPI creatinine equation. This equation utilizes serum creatinine, sex, and age as parameters. The creatinine assay has traceable calibration to isotope dilution-mass spectrometry. Refer to KDIGO guidelines for clinical interpretation. In patients with unstable renal function, e.g. those with acute kidney injury, the eGFR may not accurately reflect actual GFR. Performed By: #### 1 742-6, 1920-03, 3093-0, CRE, 1987-12 #### [facility] IA [id number] [address] [place] [address] [place] CRP SerPl-mCncon 03-25-2023 CRP [Mass/Vol] mg/L Normal <0.9 [facility] Comment on above: Order Comment: Krystyna armstrong Type: BLOOD SPECIMEN Ordering Facility: [facility] Address: [address] [place] [address] Performed By: #### 1 742-6, 1920-03, 0, CRE1987-12 #### [facility] IA [id number] [address] [place] [address] [place] ESR Westergren method (Bld) [Velocity]on 03-25-2023 ESR (Bld) [Velocity] 6 mm/h Normal 0-20 [facility] Comment on above: Order Comment: Krystyna armstrong Type: BLOOD SPECIMEN Ordering Facility: [facility] Address: [address] [place] [address] Performed By: #### 4 537-7 #### [facility] CLIA [id number] [address] [place] [address] [place] BACTERIAL VAGINOSIS NAATon 0 - Lactobacillus crispatus+gasseri+talat senii + Gardnerella vaginalis + Atopobium vaginae rRNA JOSSIE+probe Ql (Vag fld) Negative Negative for bacterial vaginosis [facility] BARBARA/TRICHOMONAS NAATon 0 02-26-2023 C. glabrata RNA JOSSIE+probe Ql (Vag fld) Negative Negative for Barbara glabrata [facility] Barbara sp DNA JOSSIE+probe Ql (Vag fld) Negative Negative for Barbara species [facility] T. vaginalis DNA JOSSIE+probe Ql (Unsp spec) Negative Negative for Trichomonas vaginalis by amplification [facility] Reagin and Treponema pallidu m IgG and IgM [Interp]on 07-15-2022 Syphilis Interpretation Cannot exclude recent Treponemal infection if specimen collected within 7-10 days after appearance of suspect lesions or 2-3 weeks after an exposure. Clinical correlation is required. [facility] T. pallidum IgG+IgM IA Ql (S) Non-Reactive Nonreactive [facility] BACTERIAL VAGINOSIS AMPLIFIC ATIONon 07-14-2022 Lactobacillus crispatus+gasseri+talat senii + Gardnerella vaginalis + Atopobium vaginae rRNA JOSSIE+probe Ql (Vag fld) Negative Negative for bacterial vaginosis [facility] C. trachomatis+N. gonorrhoea e DNA JOSSIE+probe Ql (Unsp spec)on 07-14-2022 C. trachomatis DNA JOSSIE+probe Ql (Unsp spec) Negative Negative for Chlamydia trachomatis by amplificaton [facility] N. gonorrhoeae DNA JOSSIE+probe Ql (Unsp spec) Negative Negative for Neisseria gonorrhoeae by amplification [facility] BARBARA / TRICHOMONAS AMPLIF ICATIONon 07-14-2022 C. glabrata RNA JOSSIE+probe Ql (Vag fld) Negative Negative for Barbara glabrata [facility] Barbara albicans, C. dubliniensis, C. parapsilosis, and C. tropicalis RNA JOSSIE+probe Ql (Vag fld) Positive Abnormal Negative for Barbara species [facility] T. vaginalis DNA JOSSIE+probe Ql (Unsp spec) Negative Negative for Trichomonas vaginalis by amplification [facility] CT ABDOMEN/PELVIS WITH CONTR Seferino 06-28-2022 CT ABDOMEN/PELVIS WITH CONTRAST EXAM: CT ABDOMEN/PELVIS WITH CONTRAST, 06/28/2022 17:36 PM COMPARISON: No prior studies available for comparison. CLINICAL INDICATIONS: RLQ abdominal pain, appendicitis suspected (Age >= 14y); R10.31:RLQ abdominal pain TECHNIQUE: CT scanning was performed of the abdomen and pelvis following the administration of intravenous contrast. PROTOCOL: Standard. CONTRAST: iohexol (OMNIPAQUE) 350 MG/ML injection 1-171 mL; Route of Administration: Intravenous; Dose: 110 mL. FINDINGS: Lung Bases: The visualized lung bases and lower mediastinal structures are unremarkable. ABDOMEN Liver: Liver is normal in size and CT density. No focal lesions. Biliary/Gallbladder: The gallbladder is normal without evidence of radiopaque stones. The biliary tree is nondilated. Spleen: Spleen is normal in size and CT density. Pancreas: Pancreas is normal. There is no evidence of pancreatic mass or peripancreatic fluid. Adrenals: Adrenal glands are unremarkable. Kidneys: Kidneys are normal in size. There are no stones or hydronephrosis. Incidental small left renal cyst. Retroperitoneal/Vascu lature: The abdominal aorta is normal in course and caliber. The main portal vein and principal branch vessels are patent. No retroperitoneal adenopathy is identified. Gastrointestinal/Mese ntery: The stomach and duodenal C-loop are unremarkable. Small and large bowel loops are nondilated. Normal appendix. No pneumoperitoneum or ascites. PELVIS Bladder: The bladder is normal. Genital: Uterus is unremarkable with an IUD in place. Adnexal structures are normal in appearance. Other: No intraperitoneal free air or free fluid. Bony Structures: Visualized bony structures are consistent with the patient's age. IMPRESSION: No acute localizing process in the abdomen/pelvis. Appendix is normal. Normal [facility] CT Abdomen and Pelvis W cont rast Meredith 06-28-2022 IMPRESSION: No acute localizing process in the abdomen/pelvis. Appendix is normal. OLOGY EXAM: CT ABDOMEN/PELVIS WITH CONTRAST, 06/28/2022 17:36 PM COMPARISON: No prior studies available for comparison. CLINICAL INDICATIONS: RLQ abdominal pain, appendicitis suspected (Age >= 14y); R10.31:RLQ abdominal pain TECHNIQUE: CT scanning was performed of the abdomen and pelvis following the administration of intravenous contrast. PROTOCOL: Standard. CONTRAST: iohexol (OMNIPAQUE) 350 MG/ML injection 1-171 mL; Route of Administration: Intravenous; Dose: 110 mL. FINDINGS: Lung Bases: The visualized lung bases and lower mediastinal structures are unremarkable. ABDOMEN Liver: Liver is normal in size and CT density. No focal lesions. Biliary/Gallbladder: The gallbladder is normal without evidence of radiopaque stones. The biliary tree is nondilated. Spleen: Spleen is normal in size and CT density. Pancreas: Pancreas is normal. There is no evidence of pancreatic mass or peripancreatic fluid. Adrenals: Adrenal glands are unremarkable. Kidneys: Kidneys are normal in size. There are no stones or hydronephrosis. Incidental small left renal cyst. Retroperitoneal/Vascu lature: The abdominal aorta is normal in course and caliber. The main portal vein and principal branch vessels are patent. No retroperitoneal adenopathy is identified. Gastrointestinal/Mese ntery: The stomach and duodenal C-loop are unremarkable. Small and large bowel loops are nondilated. Normal appendix. No pneumoperitoneum or ascites. PELVIS Bladder: The bladder is normal. Genital: Uterus is unremarkable with an IUD in place. Adnexal structures are normal in appearance. Other: No intraperitoneal free air or free fluid. Bony Structures: Visualized bony structures are consistent with the patient's age. RADIOLOGY Isis Franz M D - 06/28/2022 EXAM: CT ABDOMEN/PELVIS WITH CONTRAST, 06/28/2022 17:36 PM COMPARISON: No prior studies available for comparison. CLINICAL INDICATIONS: RLQ abdominal pain, appendicitis suspected (Age >= 14y); R10.31:RLQ abdominal pain TECHNIQUE: CT scanning was performed of the abdomen and pelvis following the administration of intravenous contrast. PROTOCOL: Standard. CONTRAST: iohexol (OMNIPAQUE) 350 MG/ML injection 1-171 mL; Route of Administration: Intravenous; Dose: 110 mL. FINDINGS: Lung Bases: The visualized lung bases and lower mediastinal structures are unremarkable. ABDOMEN Liver: Liver is normal in size and CT density. No focal lesions. Biliary/Gallbladder: The gallbladder is normal without evidence of radiopaque stones. The biliary tree is nondilated. Spleen: Spleen is normal in size and CT density. Pancreas: Pancreas is normal. There is no evidence of pancreatic mass or peripancreatic fluid. Adrenals: Adrenal glands are unremarkable. Kidneys: Kidneys are normal in size. There are no stones or hydronephrosis. Incidental small left renal cyst. Retroperitoneal/Vascu lature: The abdominal aorta is normal in course and caliber. The main portal vein and principal branch vessels are patent. No retroperitoneal adenopathy is identified. Gastrointestinal/Mese ntery: The stomach and duodenal C-loop are unremarkable. Small and large bowel loops are nondilated. Normal appendix. No pneumoperitoneum or ascites. PELVIS Bladder: The bladder is normal. Genital: Uterus is unremarkable with an IUD in place. Adnexal structures are normal in appearance. Other: No intraperitoneal free air or free fluid. Bony Structures: Visualized bony structures are consistent with the patient's age. IMPRESSION IMPRESSION: No acute localizing process in the abdomen/pelvis. Appendix is normal. [facility] Radiology Study observation (narrative) [facility] CT Abdomen and Pelvis W cont rast IVOrdered By: Isis Franz on 06-28-2022 [facility] Work Phone: HCG ( test) Ql (U)o n 06-28-2022 HCG.beta subunit [Moles/Vol] Negative [facility] POCT CBCOrdered By: Maryan quiles on 06-28-2022 HEMATOCRIT (HCT), MANUAL ENTER 43.2 % 32.5 - 49.4 % [facility] Hemoglobin (HGB), MANUAL ENTER 14.2 g/dL 10.9 - 16.7 g/dL [facility] Interpretation and review of laboratory results Abnormal [facility] LYMPHOCYTES %, MANUAL ENTER 34.3 % 14.7 - 45.9 % [facility] MEAN CELL VOLUME, MANUAL ENTER 94.3 fL 82.5 - 98.0 fL [facility] NEUTROPHILS %, MANUAL ENTER 59.5 % 46.4 - 74.9 % [facility] OTHERWBC %, MANUAL ENTER 6.2 % 3.2 - 16.9 % [facility] PLATELETS, MANUAL ENTER 477 10^3/uL Abnormal 148 - 382 10^3/uL [facility] RBC, [facility]UAL [facility]TER 4.58 10^6/uL 3.71 - 5.5 2 10^6/uL [facility] WBC, MANUAL ENTER 8.2 10^3/uL 3.9 - 10.4 10^3/uL [facility] COMPREHENSIVE METABOLIC PANELon 06-28-2022 ALBUMIN, MANUAL ENTER 3.9 g/dL 3.3 - 5.5 g/dL [facility] ALKALINE PHOSPHATASE, MANUAL ENTER 76 U/L 42 - 141 U/L [facility] ALT, MANUAL ENTER 36 U/L 10 - 47 U/L [facility] AST, MANUAL ENTER 35 U/L 11 - 38 U/[facility] Bilirubin, Total, MANUAL ENTER 0.4 mg/dL 0.2 - 1.6 mg/dL [facility] Blood Urea Nitrogen (BUN), MANUAL ENTER 11 mg/dL 7 - 22 mg/dL [facility] CALCIUM (CA), MANUAL ENTER 9.3 mg/dL 8.0 - 10.3 mg/dL [facility] Carbon Diox(CO2), MANUAL ENTER 20 mmol/L 18 - 33 mmol/L [facility] Chloride (CL), MANUAL ENTER 111 mmol/L Abnormal 98 - 108 mmol/L [facility] CREATININE, SERUM, MANUAL ENTER 0.9 mg/dL 0.6 - 1.2 mg/dL [facility] GLUCOSE, MANUAL ENTER 101 mg/dL 73 - 118 mg/dL [facility] Interpretation and review of laboratory results Abnormal [facility] POTASSIUM (K+), MANUAL ENTER 4.1 mmol/L 3.6 - 5.1 mmol/L [facility] Protein, Total, Manual Enter 7.3 g/dL 6.4 - 8.1 g/dL [facility] SODIUM (NA), MANUAL ENTER 142 mmol/L 128 - 145 mmol/L [facility] POCT URINE DIPSTICK AUTOMATE DOrdered By: Francesca Johnson on 06-28-2022 Amorphous sediment LM Ql (Urine sed) [facility] Appearance (U) clear [facility] Bacteria LM Ql (Urine sed) [facility] Bilirubin Ql (U) Negative [facility] Casts LM.LPF (Urine sed) [#/Area] [facility] Color (U) yellow [facility] Crystals LM Nom (Urine sed) [facility] Epithelial cells.squamous LM.HPF (Urine sed) [#/Area] [facility] Flow cytometry specialist review Amrik (Unsp spec) [Interp] [facility] Glucose Auto test strip (U) [Mass/Vol] Negative mg/dL [facility] Ketones [Mass/Vol] Negative mg/dL [facility] Leukocyte esterase Qn (U) [facility] Leukocyte esterase Test strip Ql (U) Negative [facility] Microscopic observation Gram stain Nom (Bronch spec) [facility] Nitrite Ql (U) Negative [facility] pH (U) 5.5 [pH] 5 - 7 [facility] Protein Ql (U) Negative mg/dL [facility] RBC LM.HPF (Urine sed) [#/Area] [facility] RBC Ql (U) Negative [facility] Specific gravity (U) [Rel density] 1.001 - 1.035 [facility] Transitional cells LM Ql (Urine sed) [facility] Urobilinogen Qn (U) 0.2 [facility] WBC LM.HPF (Urine sed) [#/Area] [facility]+ VIEWS (STA NDARD)on 05-02-2022 XR ANKLE RIGHT 3+ VIEWS (STANDARD) EXAMINATION: XR ANKLE RIGHT 3+ VIEWS (STANDARD) 05/02/2022 10:09 am HISTORY: ORDERING SYSTEM PROVIDED HISTORY: fall. ttp distal fib., TECHNOLOGIST PROVIDED HISTORY: Injury/Trauma Reason for exam: ttp distal fib., Injury of right ankle Cancer History: - Surgery, RadiationHistory: - Encounter Type: Initial Mechanism of injury: Fall ORDERING SYSTEM PROVIDED DIAGNOSIS CODES: S99.911A Injury of right ankle, initial encounter FINDINGS: Frontal, oblique and lateral views were obtained. IMPRESSION: 1. The osseous alignment is intact. No acute fracture or dislocation. 2. Small plantar calcaneal enthesophyte is noted. 3. Small tibiotalar joint effusion is difficult to exclude on the lateral image. 4. Mild hypertrophic osseous change involving the dorsal aspect of the navicular with mild arthritic changes at the talonavicular articulation noted. [employer] Workstation ID: [id number] Dictated by: BOB TONY on [place] May 02, 2022 2:33:16 PM EDT Transcribed by: MICAELA HARPER on [place] May 02, 2022 2:34:42 PM EDT Finalized by: BOB TONY on [place] May 02, 2022 4:39:22 PM EDT Normal [facility] Comment on above: Order Comment: Injur y/Trauma or Illness?:Injury/Trauma How long have you had these symptoms (acute/chronic)?:Acute Reason for exam?:ttp distal fib., Injury of right ankle History of cancer?:- Surgeries, chemotherapy, or radiation?:- Type of Exam?:Initial Mechanism of injury?:Fall XR Ankle Right 3+ Views (Sta ndard)on 05-02-2022 1. The osseous alignment is intact. No acute fracture or dislocation. 2. Small plantar calcaneal enthesophyte is noted. 3. Small tibiotalar joint effusion is difficult to exclude on the lateral image. 4. Mild hypertrophic osseous change involving the dorsal aspect of the navicular with mild arthritic changes at the talonavicular articulation noted. [employer] Workstation ID: [id number] [facility] EXAMINATION: XR ANKLE RIGHT 3+ VIEWS (STANDARD) 05/02/2022 10:09 am HISTORY: ORDERING SYSTEM PROVIDED HISTORY: fall. ttp distal fib., TECHNOLOGIST PROVIDED HISTORY: Injury/Trauma Reason for exam: ttp distal fib., Injury of right ankle Cancer History: - Surgery, RadiationHistory: - Encounter Type: Initial Mechanism of injury: Fall ORDERING SYSTEM PROVIDED DIAGNOSIS CODES: S99.911A Injury of right ankle, initial encounter FINDINGS: Frontal, oblique and lateral views were obtained. Bob Duran M D - 05/02/2022 EXAMINATION: XR ANKLE RIGHT 3+ VIEWS (STANDARD) 05/02/2022 10:09 am HISTORY: ORDERING SYSTEM PROVIDED HISTORY: fall. ttp distal fib., TECHNOLOGIST PROVIDED HISTORY: Injury/Trauma Reason for exam: ttp distal fib., Injury of right ankle Cancer History: - Surgery, RadiationHistory: - Encounter Type: Initial Mechanism of injury: Fall ORDERING SYSTEM PROVIDED DIAGNOSIS CODES: S99.911A Injury of right ankle, initial encounter FINDINGS: Frontal, oblique and lateral views were obtained. IMPRESSION: 1. The osseous alignment is intact. No acute fracture or dislocation. 2. Small plantar calcaneal enthesophyte is noted. 3. Small tibiotalar joint effusion is difficult to exclude on the lateral image. 4. Mild hypertrophic osseous change involving the dorsal aspect of the navicular with mild arthritic changes at the talonavicular articulation noted. SKS/jcw Workstation ID: [id number] [facility] Radiology Study observation (narrative) [facility] XR Ankle Right 3+ Views (Sta ndard)Ordered By: Bob Tony on 05-02-2022 [facility] Work Phone: FEMALE PELVIS TRANSVAGon 01-20-2022 [facility] HCG QUAL UR B/Oon 12-04-2021 status Negative neg - pos Jimmy villar [facility] Quality Check Yes [facility] ALLIED HEALTHon 11-02-2021 ALLIED HEALTH HNO ID: [id number] Author: RT Beatrice(R) Service: ? Author Type: Technologist Type: Allied Health Filed: 11/02/2021 2:31 PM Note Text: Radiology Service Progress Note PATIENT NAME: Liliam Thompson DATE OF SERVICE: November 02, 2021 TIME: 2:12 PM PATIENT IDENTITY VERIFICATION COMPLETED USING TWO (2) IDENTIFIERS: Name and Date of confirmed by patient verbally and Name and Date of confirmed by identification band. FALL SCREENING: Has the patient had 2 falls in the last year or 1 fall with injury or currently using an Ambulatory Assistive Device (Walker, Cane, Wheelchair, Crutches, etc.)? No PATIENT GENDER DATA: Female. status: : No status: NO. PATIENT RELEVANT IMPLANT DATA REVIEWED: Yes RADIOLOGY DEPARTMENT: MR; Exam(s) Completed: Lower MSK: Ankle/Hind Foot, left PERIPHERAL IV DATA: Not applicable SIGNED BY: Loulou Altamirano RT(R), Micki CORONA November 02, 2021 2:12 PM [facility] MRI ANKLE WO IVCON LTon 03-2 MRI ANKLE WO IVCON LT * * *Final Report* * * DATE OF EXAM: Nov 02 2021 2:42PM [facility] 0163 - MRI ANKLE WO IVCON LT / PROCEDURE REASON: Acute left ankle pain * * * * Physician Interpretation * * * * EXAMINATION: MRI LEFT ANKLE ____ Clinical history: Acute left ankle pain Technique: Routine MRI of the ankle/hindfoot without contrast Comparison: None available at this time RESULT: Tendons: Achilles: Intact; no evidence of tear or peritenon fluid Posterior tibialis: Intact; no abnormal tendon signal, no tendon sheath fluid Flexor digitorum: Intact; no abnormal tendon signal, no tendon sheath fluid Flexor hallucis: Intact; no abnormal tendon signal, no tendon sheath fluid Peroneal tendons: Intact; no abnormal tendon signal, no tendon sheath fluid Extensor tendons: Intact; no abnormal tendon signal, no tendon sheath fluid Ligaments: Lateral collateral ligament complex: Heterogeneous appearance of the anterior talofibular ligament, though minimal intact fibers seen. Calcaneofibular and posterior talofibular ligaments intact Deltoid/medial ligament complex: Superficial and deep components intact Tibiofibular syndesmosis: Heterogeneous appearance of the anterior tibiofibular ligament. Posterior tibiofibular ligament intact LisFranc ligament: Intact visualized portion Bone marrow: No evidence of stress injury, contusion, or fracture. No marrow replacement Plantar aponeurosis: Medial and lateral cords normal in appearance, without thickening or inflammation. Talar dome: No osteochondral defect or significant irregularity Sinus tarsi/tarsal tunnel: No significant fluid or space occupying lesion Soft tissues: No significant edema, no fluid collection, no mass IMPRESSION: 1. Partial-thickness tearing of the anterior tibiofibular ligament of the otherwise intact syndesmosis. 2. Partial-thickness tearing of the anterior talofibular ligament. Remaining components of the lateral collateral ligament complex are intact Veneer Glue Spreader: REUBEN Transcribe Date/Time: Nov 02 2021 5:07P Dictated by : GIOVANY MENJIVAR MD This examination was interpreted and the report reviewed and electronically signed by: GIOVANY MENJIVAR MD on Nov 02 2021 5:09PM EST [id number] N [facility] XR Ankle - left AP and Later al and obliqueon 09-16-2021 IMPRESSION: No radiographic evidence of acute osseous injury. Veneer Glue Spreader: REUBEN Transcribe Date/Time: Sep 16 2021 11:38A Dictated by : JAMES THURMAN MD This examination was interpreted and the report reviewed and electronically signed by: JAMES THURMAN MD on Sep 16 2021 11:39AM EST DIVISION OF RADIOLOGY * * *Final Report* * * DATE OF EXAM: Sep 16 2021 10:53AM WOX 5298 - XR ANKLE 3V AP/LAT/OBL LT / PROCEDURE REASON: Left ankle pain, unspecified chronicity * * * * Physician Interpretation * * * * CLINICAL INDICATION: Ankle pain TECHNIQUE: 3 view radiographic study of the left ankle COMPARISON: Radiograph dated August 05, 2021 FINDINGS: No acute fracture or dislocation identified. Joint spaces preserved. DIVISION OF RADIOLOGY Provider, [facility] - 09/16/2021 * * *Final Report* * * DATE OF EXAM: Sep 16 2021 10:53AM WOX 5298 - XR ANKLE 3V AP/LAT/OBL LT / PROCEDURE REASON: Left ankle pain, unspecified chronicity * * * * Physician Interpretation * * * * CLINICAL INDICATION: Ankle pain TECHNIQUE: 3 view radiographic study of the left ankle COMPARISON: Radiograph dated August 05, 2021 FINDINGS: No acute fracture or dislocation identified. Joint spaces preserved. IMPRESSION IMPRESSION: No radiographic evidence of acute osseous injury. Veneer Glue Spreader: PSCB Transcribe Date/Time: Sep 16 2021 11:38A Dictated by : JAMES THURMAN MD This examination was interpreted and the report reviewed and electronically signed by: JAMES THURMAN MD on Sep 16 2021 11:39AM EST [facility] Radiology Study observation (narrative) [facility] XR Ankle - left AP and Later al and obliqueOrdered By: Ccf Provider on 09-16-2021 [facility] No Panel Informationon 08-05 IMPRESSION: LEFT ANKLE: Within normal limits. No fracture or other bone or joint abnormalities. LEFT FOOT: Within normal limits. No fracture or other bone or joint abnormalities. Veneer Glue Spreader: [facility] Transcribe Date/Time: Aug 05 2021 4:29P Dictated by : KATI ROMAN MD This examination was interpreted and the report reviewed and electronically signed by: KATI ROMAN MD on Aug 05 2021 4:34PM EST DIVISION OF RADIOLOGY Radiology Study observation (narrative) [facility] No Panel InformationOrdered By: Ccf Provider on 08-05-2021 [facility] XR Ankle - left AP and Later al and obliqueon 08-05-2021 * * *Final Report* * * DATE OF EXAM: Aug 05 2021 4:26PM WOX 5298 - XR ANKLE 3V AP/LAT/OBL LT / PROCEDURE REASON: Acute left ankle pain * * * * Physician Interpretation * * * * LEFT ANKLE, 3 VIEWS, 08/05/2021 LEFT FOOT, 3 VIEWS, 08/05/2021 HISTORY: Injury. Left ankle and foot pain. COMPARISON: Left ankle 08/25/2016 TECHNIQUE: Left ankle: Standing AP, lateral, and internal oblique views. The right ankle was included for comparison the AP projection. Left foot: Standing PA and lateral views. The right foot was included for comparison in the PA projection. Oblique view of the left foot. RESULTS: LEFT ANKLE: The bones appear intact and normally aligned. There is no widening of the ankle mortise. There are no underlying bone lesions. The joint spaces appear normal. There are no soft tissue calcifications. LEFT FOOT: The bones are intact and normally aligned. There is a small accessory ossicle anteriorly at the tibiotalar joint. There are no underlying bone or joint abnormalities. There are no soft tissue calcifications or radiopaque foreign bodies. DIVISION OF RADIOLOGY [facility] * * *Final Report* * * DATE OF EXAM: Aug 05 2021 4:26PM WOX 5298 - XR ANKLE 3V AP/LAT/OBL LT / PROCEDURE REASON: Acute left ankle pain * * * * Physician Interpretation * * * * LEFT ANKLE, 3 VIEWS, 08/05/2021 LEFT FOOT, 3 VIEWS, 08/05/2021 HISTORY: Injury. Left ankle and foot pain. COMPARISON: Left ankle 08/25/2016 TECHNIQUE: Left ankle: Standing AP, lateral, and internal oblique views. The right ankle was included for comparison the AP projection. Left foot: Standing PA and lateral views. The right foot was included for comparison in the PA projection. Oblique view of the left foot. RESULTS: LEFT ANKLE: The bones appear intact and normally aligned. There is no widening of the ankle mortise. There are no underlying bone lesions. The joint spaces appear normal. There are no soft tissue calcifications. LEFT FOOT: The bones are intact and normally aligned. There is a small accessory ossicle anteriorly at the tibiotalar joint. There are no underlying bone or joint abnormalities. There are no soft tissue calcifications or radiopaque foreign bodies. IMPRESSION IMPRESSION: LEFT ANKLE: Within normal limits. No fracture or other bone or joint abnormalities. LEFT FOOT: Within normal limits. No fracture or other bone or joint abnormalities. Veneer Glue Spreader: PSCMargie Transcribe Date/Time: Aug 05 2021 4:29P Dictated by : KATI ROMAN MD This examination was interpreted and the report reviewed and electronically signed by: KATI ROMAN MD on Aug 05 2021 4:34PM [facility] XR Foot - left AP and Latera l and obliqueon 08-05-2021 * * *Final Report* * * DATE OF EXAM: Aug 05 2021 4:26PM WOX 5336 - XR FOOT 3V AP/LAT/OBL LT / PROCEDURE REASON: Foot pain, left * * * * Physician Interpretation * * * * LEFT ANKLE, 3 VIEWS, 08/05/2021 LEFT FOOT, 3 VIEWS, 08/05/2021 HISTORY: Injury. Left ankle and foot pain. COMPARISON: Left ankle 08/25/2016 TECHNIQUE: Left ankle: Standing AP, lateral, and internal oblique views. The right ankle was included for comparison the AP projection. Left foot: Standing PA and lateral views. The right foot was included for comparison in the PA projection. Oblique view of the left foot. RESULTS: LEFT ANKLE: The bones appear intact and normally aligned. There is no widening of the ankle mortise. There are no underlying bone lesions. The joint spaces appear normal. There are no soft tissue calcifications. LEFT FOOT: The bones are intact and normally aligned. There is a small accessory ossicle anteriorly at the tibiotalar joint. There are no underlying bone or joint abnormalities. There are no soft tissue calcifications or radiopaque foreign bodies. DIVISION OF RADIOLOGY Provider, [facility] - 08/05/2021 * * *Final Report* * * DATE OF EXAM: Aug 05 2021 4:26PM WOX 5336 - XR FOOT 3V AP/LAT/OBL LT / PROCEDURE REASON: Foot pain, left * * * * Physician Interpretation * * * * LEFT ANKLE, 3 VIEWS, 08/05/2021 LEFT FOOT, 3 VIEWS, 08/05/2021 HISTORY: Injury. Left ankle and foot pain. COMPARISON: Left ankle 08/25/2016 TECHNIQUE: Left ankle: Standing AP, lateral, and internal oblique views. The right ankle was included for comparison the AP projection. Left foot: Standing PA and lateral views. The right foot was included for comparison in the PA projection. Oblique view of the left foot. RESULTS: LEFT ANKLE: The bones appear intact and normally aligned. There is no widening of the ankle mortise. There are no underlying bone lesions. The joint spaces appear normal. There are no soft tissue calcifications. LEFT FOOT: The bones are intact and normally aligned. There is a small accessory ossicle anteriorly at the tibiotalar joint. There are no underlying bone or joint abnormalities. There are no soft tissue calcifications or radiopaque foreign bodies. IMPRESSION IMPRESSION: LEFT ANKLE: Within normal limits. No fracture or other bone or joint abnormalities. LEFT FOOT: Within normal limits. No fracture or other bone or joint abnormalities. Veneer Glue Spreader: PSCMargie Transcribe Date/Time: Aug 05 2021 4:29P Dictated by : KATI ROMAN MD This examination was interpreted and the report reviewed and electronically signed by: KATI ROMAN MD on Aug 05 2021 4:34PM EST [facility] No Panel Informationon 01-07 IMPRESSION: No acute osseous abnormality of the LEFT wrist or LEFT shoulder is identified. Veneer Glue Spreader: REUBEN Transcribe Date/Time: Jan 07 2021 8:17A Dictated by : MICHELINE MORIN MD This examination was interpreted and the report reviewed and electronically signed by: MICHELINE MORIN MD on Jan 07 2021 8:20AM EST DIVISION OF RADIOLOGY Radiology Study observation (narrative) [facility] No Panel InformationOrdered By: Ccf Provider on 01-07-2021 [facility] XR Shoulder - left 3 Viewson 01-07-2021 * * *Final Report* * * DATE OF EXAM: Jan 07 2021 8:15AM WOX 5252 - XR SHLDR >/=3V AP/JENNIE AP/OTHR LT / PROCEDURE REASON: Left wrist pain * * * * Physician Interpretation * * * * EXAMINATION: XR WRIST 4V PA/LAT/OBL/SCAPH LT, XR SHLDR >/=3V AP/JENNIE AP/OTHR LT CLINICAL HISTORY: pt states fell 2 days ago with left arm straight out. pain radial side of left wrist and top of left shoulder and ac joint area Acute pain of left shoulder (accession [id number]), Left wrist pain (accession [id number]) Technique: XR WRIST 4V PA/LAT/OBL/SCAPH LT, XR SHLDR >/=3V AP/JENNIE AP/OTHR LT -- LEFT wrist and shoulder with 4 (accession [id number]), 3 (accession [id number]) views on 4 (accession [id number]), 3 (accession [id number]) images Comparison: 10/27/2017 RESULT: LEFT wrist: No acute fracture or dislocation is identified. The joint spaces are maintained without significant degenerative spurring. No radiopaque foreign body. LEFT shoulder: No acute fracture or dislocation. The joint spaces of the LEFT shoulder are maintained without significant degenerative spurring. No focal soft tissue abnormality is appreciated. The included portions of the LEFT lung are clear. DIVISION OF RADIOLOGY Provider, [facility] - 01/07/2021 * * *Final Report* * * DATE OF EXAM: Jan 07 2021 8:15AM WOX 5252 - XR SHLDR >/=3V AP/JENNIE AP/OTHR LT / PROCEDURE REASON: Left wrist pain * * * * Physician Interpretation * * * * EXAMINATION: XR WRIST 4V PA/LAT/OBL/SCAPH LT, XR SHLDR >/=3V AP/JENNIE AP/OTHR LT CLINICAL HISTORY: pt states fell 2 days ago with left arm straight out. pain radial side of left wrist and top of left shoulder and ac joint area Acute pain of left shoulder (accession [id number]), Left wrist pain (accession [id number]) Technique: XR WRIST 4V PA/LAT/OBL/SCAPH LT, XR SHLDR >/=3V AP/JENNIE AP/OTHR LT -- LEFT wrist and shoulder with 4 (accession [id number]), 3 (accession [id number]) views on 4 (accession [id number]), 3 (accession [id number]) images Comparison: 10/27/2017 RESULT: LEFT wrist: No acute fracture or dislocation is identified. The joint spaces are maintained without significant degenerative spurring. No radiopaque foreign body. LEFT shoulder: No acute fracture or dislocation. The joint spaces of the LEFT shoulder are maintained without significant degenerative spurring. No focal soft tissue abnormality is appreciated. The included portions of the LEFT lung are clear. IMPRESSION IMPRESSION: No acute osseous abnormality of the LEFT wrist or LEFT shoulder is identified. Veneer Glue Spreader: PSCB Transcribe Date/Time: Jan 07 2021 8:17A Dictated by : MICHELINE MORNI MD This examination was interpreted and the report reviewed and electronically signed by: MICHELINE MORIN MD on Jan 07 2021 8:20AM [facility] XR Wrist - left 4 Viewson * * *Final Report* * * DATE OF EXAM: Jan 07 2021 8:15AM WOX 5272 - XR WRIST 4V PA/LAT/OBL/SCAPH LT / PROCEDURE REASON: Acute pain of left shoulder * * * * Physician Interpretation * * * * EXAMINATION: XR WRIST 4V PA/LAT/OBL/SCAPH LT, XR SHLDR >/=3V AP/JENNIE AP/OTHR LT CLINICAL HISTORY: pt states fell 2 days ago with left arm straight out. pain radial side of left wrist and top of left shoulder and ac joint area Acute pain of left shoulder (accession [id number]), Left wrist pain (accession [id number]) Technique: XR WRIST 4V PA/LAT/OBL/SCAPH LT, XR SHLDR >/=3V AP/JENNIE AP/OTHR LT -- LEFT wrist and shoulder with 4 (accession [id number]), 3 (accession [id number]) views on 4 (accession [id number]), 3 (accession [id number]) images Comparison: 10/27/2017 RESULT: LEFT wrist: No acute fracture or dislocation is identified. The joint spaces are maintained without significant degenerative spurring. No radiopaque foreign body. LEFT shoulder: No acute fracture or dislocation. The joint spaces of the LEFT shoulder are maintained without significant degenerative spurring. No focal soft tissue abnormality is appreciated. The included portions of the LEFT lung are clear. DIVISION OF RADIOLOGY Provider, [facility] - 01/07/2021 * * *Final Report* * * DATE OF EXAM: Jan 07 2021 8:15AM WOX 5272 - XR WRIST 4V PA/LAT/OBL/SCAPH LT / PROCEDURE REASON: Acute pain of left shoulder * * * * Physician Interpretation * * * * EXAMINATION: XR WRIST 4V PA/LAT/OBL/SCAPH LT, XR SHLDR >/=3V AP/JENNIE AP/OTHR LT CLINICAL HISTORY: pt states fell 2 days ago with left arm straight out. pain radial side of left wrist and top of left shoulder and ac joint area Acute pain of left shoulder (accession [id number]), Left wrist pain (accession [id number]) Technique: XR WRIST 4V PA/LAT/OBL/SCAPH LT, XR SHLDR >/=3V AP/JENNIE AP/OTHR LT -- LEFT wrist and shoulder with 4 (accession [id number]), 3 (accession [id number]) views on 4 (accession [id number]), 3 (accession [id number]) images Comparison: 10/27/2017 RESULT: LEFT wrist: No acute fracture or dislocation is identified. The joint spaces are maintained without significant degenerative spurring. No radiopaque foreign body. LEFT shoulder: No acute fracture or dislocation. The joint spaces of the LEFT shoulder are maintained without significant degenerative spurring. No focal soft tissue abnormality is appreciated. The included portions of the LEFT lung are clear. IMPRESSION IMPRESSION: No acute osseous abnormality of the LEFT wrist or LEFT shoulder is identified. Veneer Glue Spreader: REUBEN Transcribe Date/Time: Jan 07 2021 8:17A Dictated by : MICHELINE MORIN MD This examination was interpreted and the report reviewed and electronically signed by: MICHELINE MORIN MD on Jan 07 2021 8:20AM [facility] CT Sinuses WO contraston IMPRESSION: Clear paranasal sinuses without radiographic sequelae of chronic sinusitis. Veneer Glue Spreader: [facility] Transcribe Date/Time: Jul 17 2020 10:37A Dictated by : KENNETH ROSAS MD This examination was interpreted and the report reviewed and electronically signed by: LIZABETH PARKER MD on Jul 17 2020 11:03AM EST DIVISION OF RADIOLOGY * * *Final Report* * * DATE OF EXAM: Jul 17 2020 10:29AM [facility] IVCON / PROCEDURE REASON: Chronic sinusitis, unspecified location * * * * Physician Interpretation * * * * EXAMINATION: CT SINUS WO IVCON CLINICAL HISTORY: Chronic sinus infections. 7 this past year. Antibiotics not working. TECHNIQUE: Spiral high resolution axial unenhanced CT images were obtained through the paranasal sinuses with sagittal, coronal reconstructions. MQ: CTSI_1 CT Radiation dose: Integrated Dose-Length Product (DLP) for this visit = 159 mGy*cm. CT Dose Reduction Employed: Iterative recon COMPARISON: 01/02/2016 brain MRI without and with contrast RESULT: RESULT: Post-Surgical Findings: None Sinus Chambers: Somewhat underpneumatized frontal sinuses with circumscribed sclerotic focus in the superior margin of the left frontal sinus measuring approximately 0.8 x 0.8 x 1.3 cm (series 604, image 22), grossly unchanged from the 01/02/2016 MRI likely reflecting arrested pneumatization or other benign fibro-osseous process. Otherwise unremarkable, clear appearance of the paranasal sinuses. Nasal Cavities: Patent nasal passages. Intact and mildly rightward deviated nasal septum. Ostiomeatal Complex: Patent within the constraints of the study. Other: The visualized mastoid air cells and middle ear cavities are clear. The soft tissues of the face and orbits are within normal limits within the limitations of the study. Library Circulation Clerk (topogram) images: Unremarkable. DIVISION OF RADIOLOGY Provider, Chichi Oakes - 07/17/2020 * * *Final Report* * * DATE OF EXAM: Jul 17 2020 10:29AM [facility]US WO IVCON / PROCEDURE REASON: Chronic sinusitis, unspecified location * * * * Physician Interpretation * * * * EXAMINATION: CT SINUS WO IVCON CLINICAL HISTORY: Chronic sinus infections. 7 this past year. Antibiotics not working. TECHNIQUE: Spiral high resolution axial unenhanced CT images were obtained through the paranasal sinuses with sagittal, coronal reconstructions. MQ: CTSI_1 CT Radiation dose: Integrated Dose-Length Product (DLP) for this visit = 159 mGy*cm. CT Dose Reduction Employed: Iterative recon COMPARISON: 01/02/2016 brain MRI without and with contrast RESULT: RESULT: Post-Surgical Findings: None Sinus Chambers: Somewhat underpneumatized frontal sinuses with circumscribed sclerotic focus in the superior margin of the left frontal sinus measuring approximately 0.8 x 0.8 x 1.3 cm (series 604, image 22), grossly unchanged from the 01/02/2016 MRI likely reflecting arrested pneumatization or other benign fibro-osseous process. Otherwise unremarkable, clear appearance of the paranasal sinuses. Nasal Cavities: Patent nasal passages. Intact and mildly rightward deviated nasal septum. Ostiomeatal Complex: Patent within the constraints of the study. Other: The visualized mastoid air cells and middle ear cavities are clear. The soft tissues of the face and orbits are within normal limits within the limitations of the study. Library Circulation Clerk (topogram) images: Unremarkable. IMPRESSION IMPRESSION: Clear paranasal sinuses without radiographic sequelae of chronic sinusitis. Veneer Glue Spreader: PSCB Transcribe Date/Time: Jul 17 2020 10:37A Dictated by : KENNETH ROSAS MD This examination was interpreted and the report reviewed and electronically signed by: LIZABETH PARKER MD on Jul 17 2020 11:03AM EST [facility] Radiology Study observation (narrative) [facility] CT Sinuses WO contrastOrdere d By: [facility] Provider on 07-17-2020 [facility] XR Chest PA and Lateralon IMPRESSION: No acute radiographic abnormality. Veneer Glue Spreader: REUBEN Transcribe Date/Time: Jun 05 2020 12:37P Dictated by : MICHELINE MORIN MD This examination was interpreted and the report reviewed and electronically signed by: MICHELINE MORIN MD on Jun 05 2020 12:38PM [facility] DIVISION OF RADIOLOGY * * *Final Report* * * DATE OF EXAM: Jun 05 2020 12:35PM WOX 5291 - XR CHEST 2V FRONTAL/LAT / PROCEDURE REASON: Cough * * * * Physician Interpretation * * * * EXAMINATION: CHEST RADIOGRAPH (2 VIEW FRONTAL & LATERAL) CLINICAL HISTORY: Cough MQ: XC2_6 EXAM DATE/TIME: 06/05/2020 12:35 PM COMPARISON: 11/01/2019 RESULT: Lines, tubes, and devices: None. Lungs and pleura: No focal consolidation, pleural effusion or pneumothorax. Cardiomediastinal silhouette: Within normal limits. Bones and soft tissues: No acute osseous abnormalities appreciated. [facility] * * *Final Report* * * DATE OF EXAM: Jun 05 2020 12:35PM WOX 5291 - XR CHEST 2V FRONTAL/LAT / PROCEDURE REASON: Cough * * * * Physician Interpretation * * * * EXAMINATION: CHEST RADIOGRAPH (2 VIEW FRONTAL & LATERAL) CLINICAL HISTORY: Cough MQ: XC2_6 EXAM DATE/TIME: 06/05/2020 12:35 PM COMPARISON: 11/01/2019 RESULT: Lines, tubes, and devices: None. Lungs and pleura: No focal consolidation, pleural effusion or pneumothorax. Cardiomediastinal silhouette: Within normal limits. Bones and soft tissues: No acute osseous abnormalities appreciated. IMPRESSION IMPRESSION: No acute radiographic abnormality. Veneer Glue Spreader: REUBEN Transcribe Date/Time: Jun 05 2020 12:37P Dictated by : MICHELINE MORIN MD This examination was interpreted and the report reviewed and electronically signed by: MICHELINE MORIN MD on Jun 05 2020 12:38PM EST [facility] Lateral[facility] ed By: [facility] Provider on 06-05-2020 [facility] Vital Signs Date Time Vital Sign Value Performing Clinician Facility 05-14-2024 09:35-0400 Body height 153.[address] [facility] 05-14-2024 09:35-0400 Body mass index (BMI) [Ratio] 51.67 kg/m2 Pauly Cleveland RD [facility] 05-14-2024 09:35-0400 Body weight 122.[address] [facility] 04-03-2024 06:59-0400 Diastolic blood pressure 83 mm[Hg] Genaro Morales DIETARY COOK.SPORTS TEACHER Work Phone: [facility] 04-03-2024 06:59-0400 Heart rate 102 /min Genaro Morales DIETARY COOK.SPORTS TEACHER Work Phone: [facility] 04-03-2024 06:59-0400 Systolic blood pressure 138 mm[Hg] Genaro Morales DIETARY COOK.SPORTS TEACHER Work Phone: [facility] 04-03-2024 06:58-0400 Body mass index (BMI) [Ratio] 51.71 kg/m2 Genaro Morales DIETARY COOK.SPORTS TEACHER Work Phone: [facility] 04-03-2024 06:58-0400 Body weight 122.1 kg Genaro Morales DIETARY COOK.SPORTS TEACHER Work Phone: [facility] 04-03-2024 06:58-0400 Respiratory rate 16 /min Genaro Morales DIETARY COOK.SPORTS TEACHER Work Phone: [facility] 03-29-2024 09:58-0400 Body mass index (BMI) [Ratio] 51.63 kg/m2 Nurse Wstr Work Phone: [facility] 03-29-2024 09:58-0400 Body weight 121.93 kg Nurse Wstr Work Phone: [facility] 03-29-2024 09:58-0400 Diastolic blood pressure 74 mm[Hg] Nurse Wstr Work Phone: [facility] 03-29-2024 09:58-0400 Systolic blood pressure 122 mm[Hg] Nurse Wstr Work Phone: [facility] 03-15-2024 09:27-0400 Body mass index (BMI) [Ratio] 51.29 kg/m2 Flora Jenkins MD Work Phone: [facility] 03-15-2024 09:27-0400 Body weight 121.11 kg Flora Jenkins MD Work Phone: [facility] 03-15-2024 09:27-0400 Diastolic blood pressure 96 mm[Hg] Flora Jenkins MD Work Phone: [facility] 03-15-2024 09:27-0400 Systolic blood pressure 166 mm[Hg] Flora Jenkins MD Work Phone: [facility] 02-27-2024 15:23-0400 Body height 153.7 cm Francoise Plotts DIETARY COOK.CNM Work Phone: [facility] 02-27-2024 15:23-0400 Body mass index (BMI) [Ratio] 51.09 kg/m2 Francoise Plotts DIETARY COOK.CNM Work Phone: [facility] 02-27-2024 15:23-0400 Body weight 120.66 kg Francoise Plotts DIETARY COOK.CNM Work Phone: [facility] 02-27-2024 15:23-0400 Diastolic blood pressure 102 mm[Hg] Francoise Plotts DIETARY COOK.CNM Work Phone: [facility] 02-27-2024 15:23-0400 Systolic blood pressure 156 mm[Hg] Francoise Plotts DIETARY COOK.CNM Work Phone: [facility] 01-17-2024 11:31-0400 Body mass index (BMI) [Ratio] 50.83 kg/m2 Flora Jenkins MD Work Phone: [facility] 01-17-2024 11:31-0400 Body weight 122.02 kg Flora Jenkins MD Work Phone: [facility] 01-17-2024 11:31-0400 Diastolic blood pressure 88 mm[Hg] Flora Jenkins MD Work Phone: [facility] 01-17-2024 11:31-0400 Systolic blood pressure 138 mm[Hg] Flora Jenkins MD Work Phone: [facility] 01-02-2024 16:42-0400 Body mass index (BMI) [Ratio] 50.64 kg/m2 Faustina Carcamo MD Work Phone: [facility] 01-02-2024 16:42-0400 Body temperature 98.6 [degF] Faustina Carcamo MD Work Phone: [facility] 01-02-2024 16:42-0400 Body weight 121.56 kg Faustina Carcamo MD Work Phone: [facility] 01-02-2024 16:42-0400 Diastolic blood pressure 78 mm[Hg] Faustina Carcamo MD Work Phone: [facility] 01-02-2024 16:42-0400 Heart rate 106 /min Faustina Carcamo MD Work Phone: [facility] 01-02-2024 16:42-0400 Respiratory rate 18 /min Faustina Carcamo MD Work Phone: [facility] 01-02-2024 16:42-0400 SaO2% (BldA) [Mass fraction] 98 % Faustina Carcamo MD Work Phone: [facility] 01-02-2024 16:42-0400 Systolic blood pressure 122 mm[Hg] Faustina Carcamo MD Work Phone: [facility] 12-14-2023 12:51-0400 Body mass index (BMI) [Ratio] 51.11 kg/m2 Anton Moomaw DIETARY COOK.CITY MAGISTRATE Work Phone: [facility] 12-14-2023 12:51-0400 Body temperature 98.29 [degF] Anton Moomaw DIETARY COOK.CITY MAGISTRATE Work Phone: [facility] 12-14-2023 12:51-0400 Body weight 122.7 kg Anton Moomaw DIETARY COOK.CITY MAGISTRATE Work Phone: [facility] 12-14-2023 12:51-0400 Diastolic blood pressure 82 mm[Hg] Anton Moomaw DIETARY COOK.CITY MAGISTRATE Work Phone: [facility] 12-14-2023 12:51-0400 Heart rate 128 /min Anton Moomaw DIETARY COOK.CITY MAGISTRATE Work Phone: [facility] 12-14-2023 12:51-0400 Respiratory rate 21 /min Anton Moomaw DIETARY COOK.CITY MAGISTRATE Work Phone: [facility] 12-14-2023 12:51-0400 SaO2% (BldA) [Mass fraction] 97 % Anton Moomaw DIETARY COOK.CITY MAGISTRATE Work Phone: [facility] 12-14-2023 12:51-0400 Systolic blood pressure 138 mm[Hg] Anton Moomaw DIETARY COOK.CITY MAGISTRATE Work Phone: [facility] 12-08-2023 14:47-0400 Body mass index (BMI) [Ratio] 51.94 kg/m2 Sasha Lau MD Work Phone: [facility] 12-08-2023 14:47-0400 Body weight 124.7 kg Sasha Lau MD Work Phone: [facility] 12-08-2023 14:47-0400 Diastolic blood pressure 89 mm[Hg] Sasha Lau MD Work Phone: [facility] 12-08-2023 14:47-0400 Heart rate 89 /min Sasha Lau MD Work Phone: [facility] 12-08-2023 14:47-0400 SaO2% (BldA) [Mass fraction] 97 % Sasha Lau MD Work Phone: [facility] 12-08-2023 14:47-0400 Systolic blood pressure 126 mm[Hg] Sasha Lau MD Work Phone: [facility] 10-27-2023 09:26-0400 Body weight 123.5 kg Qian Farris DIETARY COOK.CITY MAGISTRATE Work Phone: [facility] 10-27-2023 09:26-0400 Diastolic blood pressure 90 mm[Hg] Qian Farris DIETARY COOK.CITY MAGISTRATE Work Phone: [facility] 10-27-2023 09:26-0400 Heart rate 87 /min Qian Farris DIETARY COOK.CITY MAGISTRATE Work Phone: [facility] 10-27-2023 09:26-0400 SaO2% (BldA) [Mass fraction] 96 % Qian Farris DIETARY COOK.CITY MAGISTRATE Work Phone: [facility] 10-27-2023 09:26-0400 Systolic blood pressure 136 mm[Hg] Qian Farris DIETARY COOK.CITY MAGISTRATE Work Phone: [facility] 10-14-2023 11:07-0500 Body weight 123.83 kg Genaro Garcias DIETARY COOK.SPORTS TEACHER Work Phone: [facility] 10-14-2023 11:07-0500 Diastolic blood pressure 88 mm[Hg] Genaroclaire Garcias DIETARY COOK.SPORTS TEACHER Work Phone: [facility] 10-14-2023 11:07-0500 Heart rate 128 /min Genaro Morales DIETARY COOK.SPORTS TEACHER Work Phone: [facility] 10-14-2023 11:07-0500 Respiratory rate 16 /min Genaro Morales DIETARY COOK.SPORTS TEACHER Work Phone: [facility] 10-14-2023 11:07-0500 Systolic blood pressure 118 mm[Hg] Genaro Morales DIETARY COOK.SPORTS TEACHER Work Phone: [facility] 07-22-2023 13:41-0500 Body height 154.9 cm Charissa Ayala MD Work Phone: [facility] 07-22-2023 13:41-0500 Body weight 121.75 kg Charissa Ayala MD Work Phone: [facility] 07-22-2023 13:41-0500 Diastolic blood pressure 84 mm[Hg] Charissa Ayala MD Work Phone: [facility] 07-22-2023 13:41-0500 Systolic blood pressure 126 mm[Hg] Charissa Ayala MD Work Phone: [facility] 06-06-2023 08:32-0400 Body temperature 97.59 [degF] Patsy Towers PA-C Work Phone: [facility] 06-06-2023 08:32-0400 Body weight 120.66 kg Patsy Towers PA-C Work Phone: [facility] 06-06-2023 08:32-0400 Diastolic blood pressure 93 mm[Hg] Patsy Towers PA-C Work Phone: [facility] 06-06-2023 08:32-0400 Heart rate 111 /min Patsy Towers PA-C Work Phone: [facility] 06-06-2023 08:32-0400 SaO2% (BldA) [Mass fraction] 98 % Patsy Towers PA-C Work Phone: [facility] 06-06-2023 08:32-0400 Systolic blood pressure 131 mm[Hg] Patsy Towers PA-C Work Phone: [facility] 05-20-2023 07:32-0400 Body weight 122.47 kg Genaro Morales DIETARY COOK.SPORTS TEACHER Work Phone: [facility] 05-20-2023 07:32-0400 Diastolic blood pressure 78 mm[Hg] Genaro Morales DIETARY COOK.SPORTS TEACHER Work Phone: [facility] 05-20-2023 07:32-0400 Heart rate 91 /min Genaro Morales DIETARY COOK.SPORTS TEACHER Work Phone: [facility] 05-20-2023 07:32-0400 Respiratory rate 16 /min Genaro Morales DIETARY COOK.SPORTS TEACHER Work Phone: [facility] 05-20-2023 07:32-0400 SaO2% (BldA) [Mass fraction] 97 % Genaro Morales DIETARY COOK.SPORTS TEACHER Work Phone: [facility] 05-20-2023 07:32-0400 Systolic blood pressure 119 mm[Hg] Genaro Morales DIETARY COOK.SPORTS TEACHER Work Phone: [facility] 02-25-2023 16:03-0400 Body height 154.9 cm Francoise Rowley DIETARY COOK.CNM Work Phone: [facility] 02-25-2023 16:03-0400 Body weight 118.75 kg Francoise Rowley DIETARY COOK.CNM Work Phone: [facility] 02-25-2023 16:03-0400 Diastolic blood pressure 76 mm[Hg] Francoise Rowley DIETARY COOK.CNM Work Phone: [facility] 02-25-2023 16:03-0400 Systolic blood pressure 124 mm[Hg] Francoise Rowley DIETARY COOK.CNM Work Phone: [facility] 02-07-2023 11:11-0400 Body temperature 97.5 [degF] Krislyn Aberegg PA Work Phone: [facility] 02-07-2023 11:11-0400 Diastolic blood pressure 64 mm[Hg] Krislyn Aberegg PA Work Phone: [facility] 02-07-2023 11:11-0400 Heart rate 65 /min Krislyn Aberegg PA Work Phone: [facility] 02-07-2023 11:11-0400 Respiratory rate 21 /min Krislyn Aberegg PA Work Phone: [facility] 02-07-2023 11:11-0400 SaO2% (BldA) [Mass fraction] 98 % Krislyn Aberegg PA Work Phone: [facility] 02-07-2023 11:11-0400 Systolic blood pressure 100 mm[Hg] Krislyn Aberegg PA Work Phone: [facility] 12-03-2022 14:14-0400 Body weight 118.89 kg Silvia Tucker MD Work Phone: [facility] 12-03-2022 14:14-0400 Diastolic blood pressure 88 mm[Hg] Silvia Tucker MD Work Phone: [facility] 12-03-2022 14:14-0400 Heart rate 110 /min Silvia Tucker MD Work Phone: [facility] 12-03-2022 14:14-0400 Systolic blood pressure 132 mm[Hg] Silvia Tucker MD Work Phone: [facility] 09-20-2022 19:49-0500 Body temperature 97.59 [degF] Miriam Ortiz MD Work Phone: [facility] 09-20-2022 19:49-0500 Diastolic blood pressure 86 mm[Hg] Miriam Ortiz MD Work Phone: [facility] 09-20-2022 19:49-0500 Heart rate 102 /min Miriam Ortiz MD Work Phone: [facility] 09-20-2022 19:49-0500 Respiratory rate 16 /min Miriam Ortiz MD Work Phone: [facility] 09-20-2022 19:49-0500 SaO2% (BldA) [Mass fraction] 98 % Miriam Ortiz MD Work Phone: [facility] 09-20-2022 19:49-0500 Systolic blood pressure 133 mm[Hg] Miriam Ortiz MD Work Phone: [facility] 08-11-2022 16:52-0500 Body temperature 97.2 [degF] Faustina Carcamo MD Work Phone: [facility] 08-11-2022 16:52-0500 Body weight 117.03 kg Faustina Carcamo MD Work Phone: [facility] 08-11-2022 16:52-0500 Diastolic blood pressure 68 mm[Hg] Faustina Carcamo MD Work Phone: [facility] 12-28-2022 16:52-0500 Heart rate 107 /min Faustina Carcamo MD Work Phone: [facility] 08-11-2022 16:52-0500 Respiratory rate 18 /min Faustina Carcamo MD Work Phone: [facility] 08-11-2022 16:52-0500 SaO2% (BldA) [Mass fraction] 99 % Faustina Carcamo MD Work Phone: [facility] 08-11-2022 16:52-0500 Systolic blood pressure 122 mm[Hg] Faustina Carcamo MD Work Phone: [facility] 07-14-2022 15:41-0500 Body weight 120.93 kg Francoise Plotedison DIETARY COOK.CNM Work Phone: [facility] 07-14-2022 15:41-0500 Diastolic blood pressure 72 mm[Hg] Francoise Rowley DIETARY COOK.CNM Work Phone: [facility] 07-14-2022 15:41-0500 Systolic blood pressure 128 mm[Hg] Francoise Rowley DIETARY COOK.CNM Work Phone: [facility] 06-28-2022 15:33-0500 Body temperature 97.39 [degF] Juan Ramon Goodrich DIETARY COOK-CITY MAGISTRATE Work Phone: [facility] 06-28-2022 15:33-0500 Diastolic blood pressure 82 mm[Hg] Juan Ramon Goodrich DIETARY COOK-CITY MAGISTRATE Work Phone: [facility] 06-28-2022 15:33-0500 Heart rate 92 /min Juan Ramon Goodrich DIETARY COOK-CITY MAGISTRATE Work Phone: [facility] 06-28-2022 15:33-0500 Respiratory rate 16 /min Juan Ramon Goodrich DIETARY COOK-CITY MAGISTRATE Work Phone: [facility] 06-28-2022 15:33-0500 SaO2% (BldA) [Mass fraction] 94 % Juan Ramon Goodrich DIETARY COOK-CITY MAGISTRATE Work Phone: [facility] 06-28-2022 15:33-0500 Systolic blood pressure 119 mm[Hg] Juan Ramon SANDRA Work Phone: [facility] 05-05-2022 12:30-0400 Body mass index (BMI) [Ratio] 49.13 kg/m2 Casey Kern MD Work Phone: [facility] 05-05-2022 12:30-0400 Body weight 121.11 kg Casey Kern MD Work Phone: [facility] 05-05-2022 12:30-0400 Diastolic blood pressure 76 mm[Hg] Casey Kern MD Work Phone: [facility] 05-05-2022 12:30-0400 Heart rate 78 /min Casey Kern MD Work Phone: [facility] 05-05-2022 12:30-0400 SaO2% (BldA) [Mass fraction] 99 % Casey Kern MD Work Phone: [facility] 05-05-2022 12:30-0400 Systolic blood pressure 102 mm[Hg] Casey Kern MD Work Phone: [facility] 05-02-2022 09:32-0400 Body height 156.2 cm Addie Herrera DO Work Phone: [facility] 05-02-2022 09:32-0400 Body mass index (BMI) [Ratio] 50.38 kg/m2 Addie Herrera DO Work Phone: [facility] 05-02-2022 09:32-0400 Body temperature 98.1 [degF] Addie Herrera DO Work Phone: [facility] 05-02-2022 09:32-0400 Body weight 122.92 kg Addie Herrera DO Work Phone: [facility] 05-02-2022 09:32-0400 Diastolic blood pressure 82 mm[Hg] Addie Herrera DO Work Phone: [facility] 05-02-2022 09:32-0400 Heart rate 93 /min Addie Herrera DO Work Phone: [facility] 05-02-2022 09:32-0400 Respiratory rate 17 /min Addie Herrera DO Work Phone: [facility] 05-02-2022 09:32-0400 SaO2% (BldA) [Mass fraction] 95 % Addie Herrera DO Work Phone: [facility] 05-02-2022 09:32-0400 Systolic blood pressure 135 mm[Hg] Addie Herrera DO Work Phone: [facility] 04-16-2022 08:05-0400 Body height 157 cm Dhanu Taylor MBBS Work Phone: [facility] 04-16-2022 08:05-0400 Body mass index (BMI) [Ratio] 49.87 kg/m2 Dhanu Taylor MBBS Work Phone: [facility] 04-16-2022 08:05-0400 Body weight 122.92 kg Dhanu Taylor MBBS Work Phone: [facility] 04-16-2022 08:05-0400 Diastolic blood pressure 88 mm[Hg] Dhanu Taylor MBBS Work Phone: [facility] 04-16-2022 08:05-0400 Heart rate 102 /min Dhanu Taylor MBBS Work Phone: [facility] 04-16-2022 08:05-0400 SaO2% (BldA) [Mass fraction] 98 % Dhanu Taylor MBBS Work Phone: [facility] 04-16-2022 08:05-0400 Systolic blood pressure 128 mm[Hg] Dhanu Taylor MBBS Work Phone: [facility] 03-30-2022 17:26-0400 Body weight 120.2 kg Faustina Carcamo MD Work Phone: [facility] 03-30-2022 17:26-0400 Diastolic blood pressure 70 mm[Hg] Faustina Carcamo MD Work Phone: [facility] 03-30-2022 17:26-0400 Heart rate 100 /min Faustina Carcamo MD Work Phone: [facility] 03-30-2022 17:26-0400 SaO2% (BldA) [Mass fraction] 97 % Faustina Carcamo MD Work Phone: [facility] 03-30-2022 17:26-0400 Systolic blood pressure 102 mm[Hg] Faustina Carcamo MD Work Phone: [facility] 01-13-2022 09:05-0400 Body weight 120.66 kg Francoise Plotts DIETARY COOK.CNM Work Phone: [facility] 01-13-2022 09:05-0400 Diastolic blood pressure 76 mm[Hg] Francoise Plotts DIETARY COOK.CNM Work Phone: [facility] 01-13-2022 09:05-0400 Systolic blood pressure 122 mm[Hg] Francoise Plotts DIETARY COOK.CNM Work Phone: [facility] 01-05-2022 14:23-0400 Body weight 119.3 kg Genaro Morales DIETARY COOK.SPORTS TEACHER Work Phone: [facility] 01-05-2022 14:23-0400 Diastolic blood pressure 88 mm[Hg] Genaro Morales DIETARY COOK.SPORTS TEACHER Work Phone: [facility] 01-05-2022 14:23-0400 Heart rate 114 /min Genaro Morales DIETARY COOK.SPORTS TEACHER Work Phone: [facility] 01-05-2022 14:23-0400 Respiratory rate 16 /min Genaro Morales DIETARY COOK.SPORTS TEACHER Work Phone: [facility] 01-05-2022 14:23-0400 SaO2% (BldA) [Mass fraction] 97 % Genaro Morales DIETARY COOK.SPORTS TEACHER Work Phone: [facility] 01-05-2022 14:23-0400 Systolic blood pressure 122 mm[Hg] Genaro oMrales DIETARY COOK.SPORTS TEACHER Work Phone: [facility] 12-04-2021 09:34-0400 Body weight 120.66 kg Francoise Harryedison DIETARY COOK.CNM Work Phone: [facility] 12-04-2021 09:34-0400 Diastolic blood pressure 68 mm[Hg] Francoise Kamrynedison DIETARY COOK.CNM Work Phone: [facility] 12-04-2021 09:34-0400 Systolic blood pressure 112 mm[Hg] Francoise Kamrynedison DIETARY COOK.CNM Work Phone: [facility] 11-17-2021 12:14-0400 Body height 152.4 cm Yair Lyons MD Work Phone: [facility] 11-17-2021 12:14-0400 Body weight 120.66 kg Yair Lyons MD Work Phone: [facility] 09-22-2021 18:17-0500 Body weight 117.94 kg Faustina Carcamo MD Work Phone: [facility] 09-22-2021 18:17-0500 Diastolic blood pressure 78 mm[Hg] Faustina Carcamo MD Work Phone: [facility] 09-22-2021 18:17-0500 Heart rate 86 /min Faustina Carcamo MD Work Phone: [facility] 09-22-2021 18:17-0500 Systolic blood pressure 112 mm[Hg] Faustina Carcamo MD Work Phone: [facility] Encounters Encounter Date Encounter Type Care Provider Facility Start: 05-15-2024 End: 05-15-2024 Specialty Pharmacy Ramin Glasgow [facility] Comment on above: SPP Inflammatory Con ditions - Medication Refill (Ilaris) Start: 05-14-2024 End: 05-14-2024 Nutrition therapy Pauly [address] RD [facility] Comment on above: Assessment; Patient Education Start: 05-14-2024 End: 05-14-[address] Nutrition Therapy Start: 05-04-2024 End: 05-08-2024 Telephone encounter Faustina Carcamo MD Work Phone: [facility] [place] Comment on above: Orders (Adjustable R ollator) Start: 04-30-2024 End: 04-30-2024 Telephone encounter Faustina Carcamo MD Work Phone: [facility] [place] Comment on above: Orders Start: 04-30-2024 End: 04-30-2024 ambulatory FAUSTINA CARCAMO Facility:[facility] Start: 04-30-2024 End: 04-30-2024 Office outpatient visit 10 minutes Faustina Carcamo MD Work Phone: [facility] [place] Comment on above: Bilateral hip pain ( Primary Dx); Chronic pain of both knees; POTS (postural orthostatic tachycardia syndrome); Arthritis; Mobility poor Start: 04-24-2024 End: 04-24-2024 Refill Silvia Tucker MD Work Phone: [facility] Comment on above: Refill Request Start: 04-19-2024 End: 04-19-2024 ambulatory Ramin Glasgow [facility] Start: 04-19-2024 End: 04-19-2024 Patient encounter procedure Ramin Glasgow [facility] Comment on above: SPP Inflammatory Con ditions - Treatment Referral (Ilaris); Insurance Authorization (PA?) Start: 04-17-2024 End: 04-18-2024 Refill Silvia Tucker MD Work Phone: Rheumatology Comment on above: Refill Request Start: 04-03-2024 End: 04-03-2024 Office outpatient visit 25 minutes Genaro Morales APRN.CNS Work Phone: [facility] [place] Comment on above: Vitamin D deficiency (Primary Dx); Class 3 severe obesity due to excess calories with body mass index (BMI) of 50.0 to 59.9 in adult, unspecified whether serious comorbidity present (HCC) Start: 04-03-2024 End: 04-06-2024 Refill Silvia Tucker MD Work Phone: Rheumatology Comment on above: Appointment Start: 04-02-2024 End: 04-02-2024 ambulatory SILVIA TUCKER Facility:[facility] Start: 04-02-2024 End: 04-02-2024 Subsequent hospital visit by physician Xr [facility] [place] Work Phone: Radiology Comment on above: SO-JILLIAN (systemic ons et juvenile idiopathic arthritis) ([facility]) [M08.20] Start: 03-31-2024 End: 04-02-2024 ambulatory Silvia Tucker MD Work Phone: Rheumatology Comment on above: Question re: Pleuris y Start: 03-29-2024 Telephone encounter Francoise mar APRN.CNM Work Phone: OB/Gynecology Comment on above: Orders (HPV) Start: 03-29-2024 End: 03-29-2024 ambulatory FAUSTINA D TALAMPAS Facility:[facility] Start: 03-29-2024 End: 03-29-2024 Nursing evaluation of patient and report Nurse Broom Machine Operator [facility] Work Phone: OB/Gynecology Comment on above: Need for prophylacti c vaccination/inoculation against viral disease (Primary Dx) Start: 03-20-2024 E-mail encounter fro m caregiver Selma Gramajo DO Work Phone: Cardiology Start: 03-20-2024 Patient encounter procedure Selma Gramajo DO Work Phone: Cardiology Comment on above: Appointment Start: 03-19-2024 ambulatory Silvia chong MD Work Phone: Rheumatology Comment on above: Medicaid Information for Ilaris Start: 03-15-2024 End: 03-15-2024 ambulatory FAUSTINA D TALAMPAS Facility:[facility] Start: 03-15-2024 End: 03-15-2024 Patient encounter procedure Flora Jenkins MD Work Phone: OB/Gynecology Comment on above: Cervical high risk H PV (human papillomavirus) test positive (Primary Dx); Nonavalent human papilloma virus (HPV) vaccine for HPV types 6, 11, 16, 18, 31, 33, 45, 52, and 58 administered Start: 03-12-2024 Telephone encounter Nani Cotaricardo chapin DIETARY COOK.CITY MAGISTRATE Work Phone: OB/Gynecology Comment on above: Results; Colposcopy Start: 03-12-2024 End: 03-12-2024 Patient encounter procedure Silvia Tucker MD Work Phone: Rheumatology Comment on above: SO-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); Immunosuppression (HCC); Vitamin D deficiency Start: 03-12-2024 End: 03-12-2024 ambulatory [facility] Facility:[facility] Start: 02-27-2024 End: 02-27-2024 Patient encounter procedure Francoise Rowley APRN.CNM Work Phone: OB/Gynecology Comment on above: Encounter for gyneco logical examination (general) (routine) without abnormal findings (Primary Dx); Screening for cervical cancer; Encounter for screening for human papillomavirus (HPV); Cervical high risk human papillomavirus (HPV) DNA test positive; Pelvic pain in female Start: 02-27-2024 End: 02-27-2024 Patient encounter status Francoise Rowley DIETARY COOK.CNM Work Phone: [facility] Start: 02-27-2024 End: 02-27-2024 [facility] Facility:[facility] Start: 02-27-2024 Encounter for gynecological examination (general) (routine) without abnormal findings FRANCOISE ROWLEY [facility] Start: 02-13-2024 ambulatory Sasha Lau MD Work Phone: Allergy Comment on above: lab results Start: 02-13-2024 E-mail encounter fro m caregiver Sasha Lau MD Work Phone: Allergy Start: 02-09-2024 End: 02-09-2024 ambulatory [facility] Start: 01-17-2024 End: 01-17-2024 [facility] Facility:[facility] Start: 01-17-2024 End: 01-17-2024 Patient encounter procedure Flora Jenkins MD Work Phone: OB/Gynecology Comment on above: Abnormal uterine ble eding (AUB) (Primary Dx) Start: 01-02-2024 End: 01-02-2024 [facility] FAUSTINA Aurea [facility] Facility:[facility] Start: 01-02-2024 End: 01-02-2024 Office outpatient visit 25 minutes Faustina Carcamo MD Work Phone: [facility] [place] Comment on above: Bilateral lower extr emity edema (Primary Dx); Intermittent diarrhea; Class 3 severe obesity due to excess calories with body mass index (BMI) of 50.0 to 59.9 in adult, unspecified whether serious comorbidity present (HCC); Encounter for long-term current use of medication Start: 12-14-2023 End: 12-14-2023 [facility] Aurea [facility] Facility:[facility] Start: 12-14-2023 End: 12-14-2023 Patient encounter procedure Anton Landin APRN.CITY MAGISTRATE Work Phone: [facility] Comment on above: Diarrhea, unspecifie d type (Primary Dx); Acute cough; Bacterial sinusitis Start: 12-08-2023 End: 12-08-2023 [facility] Aurea [facility] Facility:[facility] Start: 12-08-2023 End: 12-08-2023 Patient encounter procedure Sasha Lau MD Work Phone: Allergy Comment on above: Toxic effect of late x, accidental (unintentional), subsequent encounter (Primary Dx); Seasonal allergic rhinitis due to pollen; Adverse reaction to food, subsequent encounter; Oral allergy syndrome, subsequent encounter Start: 10-27-2023 End: 10-27-2023 [facility] FAUSTINA Aurea [facility] Facility:[facility] Start: 10-27-2023 End: 10-27-2023 Patient encounter procedure Qian Farris APRN.CITY MAGISTRATE Work Phone: Cardiology Comment on above: POTS (postural ortho static tachycardia syndrome) (Primary Dx) Start: 10-24-2023 End: 10-24-2023 ambulatory Faustina Carcamo MD Work Phone: [facility] [place] Comment on above: Latex allergy (Prima ry Dx); Vitamin D deficiency; Elevated TSH; Inappropriate sinus node tachycardia (HCC) Start: 10-24-2023 End: 10-24-2023 Telemedicine consultation with patient Faustina Carcamo MD Work Phone: [facility] Start: 10-14-2023 End: 10-14-2023 ambulatory FAUSTINA CARCAMO Facility:[facility] Start: 10-14-2023 End: 10-14-2023 Subsequent hospital visit by physician Xr [facility] [place] Work Phone: Radiology Comment on above: Chronic left shoulde r pain [M25.512, G89.29] Start: 10-14-2023 End: 10-14-2023 Office outpatient visit 15 minutes Genaro Morales APRN.CNS Work Phone: [facility] [place] Comment on above: Screen for STD (sexu ally transmitted disease) (Primary Dx); Chronic left shoulder pain Start: 10-14-2023 End: 10-14-2023 ambulatory FAUSTINA CARCAMO Facility:[facility] Start: 09-23-2023 Refill Silvia chong MD Work Phone: Rheumatology Comment on above: Refill Request Start: 09-09-2023 End: 09-09-2023 ambulatory FAUSTINA Aurae CARCAMO Facility:[facility] Start: 09-06-2023 End: 09-06-2023 ambulatory FAUSTINA Aurea CARCAMO Facility:[facility] Start: 08-22-2023 End: 08-22-2023 [facility] Start: 08-19-2023 End: 08-19-2023 Telemedicine consultation with patient Radha Toledo PA-C Work Phone: [facility] Start: 08-19-2023 End: 08-19-2023 ambulatory Radha Toledo PA-C Work Phone: Neurology Comment on above: Atypical facial pain (Primary Dx); Chronic migraine without aura, with intractable migraine, so stated, with status migrainosus Start: 08-04-2023 End: 08-04-2023 ambulatory FAUSTINA JARAAMPAMADA Facility:[facility] Start: 07-28-2023 End: 07-28-2023 Refill Silvia Tucker MD Work Phone: Rheumatology/Pulmona ry Start: 07-25-2023 End: 07-25-2023 ambulatory FAUSTINA Aurea CARCAMO OB/Gynecology Start: 07-25-2023 End: 07-25-2023 Patient encounter procedure Ultrasound Broom Machine Operator [facility] Work Phone: [facility] Start: 07-22-2023 End: 07-22-2023 ambulatory ANGI GONZALES Facility:[facility] Start: 07-22-2023 End: 07-22-2023 Office outpatient visit 15 minutes Charissa Ayala MD Work Phone: OB/Gynecology Comment on above: Pelvic pain in femal e (Primary Dx) Start: 07-11-2023 End: 07-11-2023 ambulatory PATMIKE HERRMANNPRASERÓscar Facility:[facility] Start: 07-06-2023 End: 07-06-2023 ambulatory Silvia Tucker MD Work Phone: Rheumatology/Pulmona ry Comment on above: Regarding lab tests Start: 07-02-2023 ambulatory Silvia chong MD Work Phone: Rheumatology/Pulmona ry Comment on above: Labs Question Start: 06-23-2023 Refill Genaro RICCISPORTS TEACHER Work Phone: [facility] [place] Comment on above: Refill Request Start: 06-21-2023 Telephone encounter Yair membreno MD Work Phone: Neurology Comment on above: Patient Question Start: 06-06-2023 End: 06-06-2023 Orders Only Patsy Juares PA-C Work Phone: [facility] Comment on above: Upper back pain (Eleanor yony Dx) Upper back pain (Eleanor yony Dx); Other acute gastritis without hemorrhage; Fever, unspecified fever cause Upper back pain [M54 .9] Start: 06-01-2023 End: 06-01-2023 ambulatory PATOMPONG UNGPRASERT Facility:[facility] Start: 05-31-2023 End: 06-01-2023 ambulatory PATOMPONG UNGPRASERT Facility:[facility] Start: 05-25-2023 End: 05-25-2023 ambulatory Gonzalez [facility] Work Phone: Telemedicine Comment on above: Acute cystitis witho ut hematuria (Primary Dx) Start: 05-20-2023 End: 05-20-2023 Office outpatient visit 25 minutes Genaro Morales APRN.SPORTS TEACHER Work Phone: [facility] [place] Comment on above: Other migraine witho ut status migrainosus, intractable (Primary Dx); Abnormal EKG; POTS (postural orthostatic tachycardia syndrome); Elevated TSH Start: 05-20-2023 End: 05-20-2023 ambulatory FAUSTINA CARCAMO Facility:[facility] Start: 05-19-2023 Telephone encounter Faustina regan MD Work Phone: [facility] [place] Comment on above: Patient Question Start: 05-19-2023 End: 05-19-2023 Emergency department patient visit JONATHAN NIEVES Facility:[facility] Start: 04-25-2023 End: 04-25-2023 ambulatory Yair Lyons MD Work Phone: Neurology Comment on above: Intractable chronic migraine without aura and without status migrainosus (Primary Dx) Start: 04-25-2023 End: 04-25-2023 Telemedicine consultation with patient Yair Lyons MD Work Phone: [facility] Start: 04-21-2023 Refill Yair de los santos MD Work Phone: Neurology Comment on above: Refill Request Start: 04-18-2023 End: 04-18-2023 ambulatory Aki Jiménez DIETARY COOK.CITY MAGISTRATE Work Phone: Telemedicine Comment on above: Treatment not availa ble (Primary Dx) Laryngitis (Primary Dx); Cough, unspecified type Start: 04-18-2023 End: 04-18-2023 Telemedicine consultation with patient Aki Obandoyas CLAUDIOCITY MAGISTRATE Work Phone: [facility] Start: 04-12-2023 ambulatory [facility] Provider [facility] Comment on above: Actemra insurance ap proval - action required Refill Request Start: 04-12-2023 E-mail encounter evelina m caregiver [facility] Provider [facility] Start: 04-06-2023 Refill Patmike chong MD Work Phone: Rheumatology Comment on above: SPP Inflammatory Con ditions - Treatment Referral (Actemra); Insurance Authorization (PA submitted) Start: 03-29-2023 ambulatory Silvia chong MD Work Phone: Rheumatology/Pulmona ry Comment on above: Labs and update Start: 03-29-2023 E-mail encounter evelina olmedo caregiver Silvia Tucker MD Work Phone: [facility] Start: 03-25-2023 End: 03-26-2023 ambulatory SILVIA TUCKER Facility:[facility] Start: 03-10-2023 Telephone encounter Silvia Tucker MD Work Phone: Rheumatology Comment on above: Patient Question (Ap peal ); Medication Preauthorization Start: 03-02-2023 ambulatory Silvia chong MD Work Phone: Rheumatology Comment on above: Flare Start: 02-25-2023 End: 02-25-2023 Patient encounter procedure Francoise Rowley APRN.CNM Work Phone: OB/Gynecology Comment on above: Encounter for gyneco logical examination (general) (routine) without abnormal findings (Primary Dx); Screening for STD (sexually transmitted disease) Start: 02-25-2023 End: 02-25-2023 Patient encounter status Francoise Rowley APRN.CNM Work Phone: [facility] Start: 02-16-2023 Refill Patmike chong MD Work Phone: Rheumatology Comment on above: Refill Request Medication Gurjita tiaidan Start: 02-07-2023 End: 02-07-2023 Patient encounter procedure Kedar BOATENG Work Phone: [facility] Comment on above: Sore throat (Primary Dx); Acute otitis media, left Start: 01-12-2023 Telephone encounter Silvia Tucker MD Work Phone: Rheumatology Comment on above: Insurance Authorizat ion Start: 12-17-2022 End: 12-17-2022 Office outpatient visit 40 minutes Faustina Carcamo MD Work Phone: [facility] [place] Comment on above: PTSD (post-traumatic stress disorder) (Primary Dx); Migraine with aura and without status migrainosus, not intractable; POTS (postural orthostatic tachycardia syndrome); Periodic fever syndrome (HCC); Pain in joint, multiple sites; Panic disorder with agoraphobia; Irritable bowel syndrome with both constipation and diarrhea Start: 12-16-2022 Telephone encounter Faustina regan MD Work Phone: [facility] [place] Comment on above: [facility] Start: 12-15-2022 Telephone encounter Faustina regan MD Work Phone: [facility] [place] Comment on above: requesting copy of f orm faxed earlier Start: 12-09-2022 ambulatory Faustina de los santos MD Work Phone: [facility] Start: 12-09-2022 Follow-up encounter Faustina regan MD Work Phone: [facility] [place] Comment on above: ADA Follow Up Start: 12-09-2022 Telephone encounter Faustina regan MD Work Phone: [facility] [place] Comment on above: Letter (Needs letter for work.) Start: 12-03-2022 End: 12-03-2022 Patient encounter procedure Silvia Tucker MD Work Phone: Rheumatology Comment on above: Periodic fever syndr ome (HCC) (Primary Dx); Immunosuppression (HCC) Start: 11-17-2022 Telephone encounter Faustina regan MD Work Phone: [facility] [place] Comment on above: Forms Start: 11-10-2022 End: 11-10-2022 ambulatory Faustina Carcamo MD Work Phone: [facility] [place] Comment on above: Costochondritis (Eleanor yony Dx) Start: 11-10-2022 End: 11-10-2022 Telemedicine consultation with patient Faustina Carcamo MD Work Phone: [facility] Start: 10-18-2022 End: 10-18-2022 Office outpatient visit 15 minutes Faustina Carcamo MD Work Phone: [facility] [place] Comment on above: High serum high dens ity lipoprotein (HDL) (Primary Dx); POTS (postural orthostatic tachycardia syndrome); Inappropriate sinus node tachycardia; Periodic fever syndrome (HCC) Start: 09-20-2022 ambulatory MIRIAM ORTIZ Facili ty:[facility] Start: 09-20-2022 End: 09-20-2022 Office outpatient new 45 minutes Miriam Ortiz MD Work Phone: [facility] Comment on above: Dog bite, initial en counter (Primary Dx) Start: 09-16-2022 Telephone encounter Silvia Tucker MD Work Phone: Rheumatology Comment on above: Medication Authoriza tion (Ilaris ) Start: 09-14-2022 ambulatory Faustina de los santos MD Work Phone: [facility] [place] Comment on above: ADA Paperwork Start: 09-01-2022 End: 09-01-2022 ambulatory Yair Lyons MD Work Phone: Neurology Comment on above: Chronic migraine wit hout aura, with intractable migraine, so stated, with status migrainosus (Primary Dx) Start: 09-01-2022 End: 09-01-2022 Telemedicine consultation with patient Yair Lyons MD Work Phone: [facility] Start: 08-12-2022 Telephone encounter Isis sampson SUPERVISOR INVENTORY MERCHANDISING Work Phone: Adult Psychology Comment on above: Behavioral Health So cial Work Refill Request Start: 08-11-2022 End: 08-11-2022 Office outpatient visit 40 minutes Faustina Carcamo MD Work Phone: [facility] [place] Comment on above: Obsessive-compulsive disorder, unspecified type (Primary Dx); PTSD (post-traumatic stress disorder); Recurrent major depressive disorder, in partial remission (HCC); Anxiety; POTS (postural orthostatic tachycardia syndrome); Inappropriate sinus node tachycardia; Moderate persistent reactive airway disease with acute exacerbation Start: 08-05-2022 Telephone encounter Silvia Tucker MD Work Phone: Rheumatology Comment on above: Medication Authoriza tion Start: 08-02-2022 Refill Patmike chong MD Work Phone: Rheumatology Comment on above: Refill Request Start: 07-28-2022 End: 07-29-2022 ambulatory MASS IMMUNIZATION PROVIDER 1 [facility] Start: 07-15-2022 ambulatory Francoise de los santos APRN.CNM Work Phone: OB/Gynecology Comment on above: Fluconazole- Differe nt Pharmacy Start: 07-14-2022 End: 07-14-2022 Patient encounter procedure Francoise Rowley APRN.CNM Work Phone: OB/Gynecology Comment on above: Pelvic pain in femal e (Primary Dx); Screen for STD (sexually transmitted disease); Surveillance of previously prescribed intrauterine contraceptive device Start: 06-28-2022 ambulatory JUAN RAMON Stevens ty:[facility] Start: 06-28-2022 End: 06-28-2022 Subsequent hospital visit by physician Juan Ramon Goodrich APRN-LIZZIE Work Phone: [facility] Comment on above: Arrived Start: 06-28-2022 ambulatory JUAN RAMON Stevens ty:[facility] Start: 06-28-2022 End: 06-28-2022 Office outpatient visit 15 minutes Juan Ramon T Joleen DIETARY COOK-CITY MAGISTRATE Work Phone: [facility] Comment on above: RLQ abdominal pain ( Primary Dx) Start: 06-14-2022 Refill Silvia chong MD Work Phone: Rheumatology Start: 06-03-2022 End: 06-03-2022 ambulatory Oralia Charles APRNRaphaelCITY MAGISTRATE Work Phone: [facility] [place] Comment on above: Acute cough (Primary Dx); Shortness of breath; Wheezing Start: 06-03-2022 End: 06-03-2022 Telemedicine consultation with patient Oralia Charles APRN.CITY MAGISTRATE Work Phone: [facility] Start: 05-26-2022 ambulatory ZAIN Murilloi ty:[facility] Start: 05-05-2022 ambulatory CASEY KERN Facilit y:[facility] Start: 05-05-2022 End: 05-05-2022 Office outpatient visit 15 minutes Casey Kern MD Work Phone: [facility] Comment on above: Concussion without l oss of consciousness, subsequent encounter (Primary Dx) Start: 05-02-2022 End: 05-03-2022 ambulatory ADDIE HERRERA [facility] Start: 05-02-2022 End: 05-02-2022 Office outpatient new 45 minutes Addie Herrera DO Work Phone: [facility] Comment on above: Closed head injury, initial encounter (Primary Dx); Contusion of scalp, initial encounter; Abrasion; Fall, initial encounter; Injury of right ankle, initial encounter; Sprain of right ankle, unspecified ligament, initial encounter Start: 04-21-2022 ambulatory MARIO VAZQUEZ Facility:[facility] [place] Start: 04-16-2022 ambulatory SELF SELF Facility:[facility] [place] Start: 04-16-2022 End: 04-16-2022 Office outpatient new 45 minutes Mario Vazquez MBBS Work Phone: [facility] Comment on above: Migraine without sta tus migrainosus, not intractable, unspecified migraine type (Primary Dx); IUD check up; Morbid obesity; Periodic fever syndrome Start: 04-12-2022 Refill Yair de los santos MD Work Phone: Neurology Comment on above: Refill Request Start: 04-07-2022 Telephone encounter Mikel Solorio MD Work Phone: Dermatology Comment on above: Appointment Start: 04-06-2022 Specialty Pharmacy Ramin Glasgow [facility] Comment on above: SPP Inflammatory Con ditions - Medication Refill (Ilaris) Start: 03-30-2022 End: 03-30-2022 Office outpatient visit 25 minutes Faustina Carcamo MD Work Phone: Internal Medicine [place] Comment on above: POTS (postural ortho static tachycardia syndrome) (Primary Dx); Pleuritic chest pain; Costochondritis; Periodic fever syndrome (HCC); Cough, unspecified type; Class 3 severe obesity due to excess calories with body mass index (BMI) of 50.0 to 59.9 in adult, unspecified whether serious comorbidity present (HCC) Start: 02-27-2022 End: 02-27-2022 Patient encounter procedure Mert Nikki SEWING MACHINE OPERATOR Work Phone: Psychology Comment on above: Moderate anxiety (Pr imary Dx); Moderate episode of recurrent major depressive disorder (HCC) Start: 02-25-2022 Refill Patompong Nghia chong MD Work Phone: [facility] Comment on above: Refill Request Start: 02-23-2022 Chart abstracting Mert Nikki SEWING MACHINE OPERATOR Work Phone: Psychology Comment on above: Consult ([facility] Pt Out reach F/U) Start: 02-21-2022 Chart abstracting Mert Nikki SEWING MACHINE OPERATOR Work Phone: Psychology Comment on above: Consult Start: 02-19-2022 ambulatory Ramin Glasgow [facility] Start: 02-19-2022 Patient encounter procedure Ramin Glasgow [facility] Comment on above: SPP Inflammatory Con ditions - Treatment Referral (Ilaris) Start: 02-18-2022 Refill Patompong Nghia chong MD Work Phone: Rheumatology Comment on above: Refill Request Start: 01-20-2022 Telephone encounter Rosaura Jhoana holbrook DIETARY COOK.CNM Work Phone: OB/Gynecology Comment on above: Results Start: 01-20-2022 End: 01-20-2022 Subsequent hospital visit by physician [facility] Work Phone: Radiology Comment on above: Intrauterine contrac eptive device threads lost, initial encounter [T83.32XA] Start: 01-16-2022 Refill Genaro RICCISPORTS TEACHER Work Phone: Internal Medicine [place] Comment on above: Refill Request Start: 01-13-2022 End: 01-13-2022 Patient encounter procedure Francoise Rowley APRN.CNM Work Phone: OB/Gynecology Comment on above: Surveillance of prev iously prescribed intrauterine contraceptive device (Primary Dx); Intrauterine contraceptive device threads lost, initial encounter Start: 01-07-2022 Refill Patompong Nghia chong MD Work Phone: Rheumatology Comment on above: Refill Request Start: 01-05-2022 End: 01-05-2022 Patient encounter procedure Genaro Morales APRN.SPORTS TEACHER Work Phone: Internal Medicine [place] Comment on above: COVID-19 (Primary Dx ); POTS (postural orthostatic tachycardia syndrome); Chest wall discomfort Start: 12-25-2021 ambulatory Faustina de los santos MD Work Phone: Internal Medicine [place] Comment on above: Covid Start: 12-04-2021 End: 12-04-2021 Patient encounter procedure Francoise Rowley APRN.CNM Work Phone: OB/Gynecology Comment on above: Encounter for IUD in sertion (Primary Dx) Start: 11-28-2021 Refill Faustina de los santos MD Work Phone: Internal Medicine [place] Comment on above: Refill Request Start: 11-24-2021 End: 11-24-2021 Patient encounter procedure Mikel Soolrio MD Work Phone: Dermatology Comment on above: Neoplasm of uncertai n behavior of skin (Primary Dx); Compound nevus of chest Start: 11-17-2021 End: 11-17-2021 ambulatory Yair Lyons MD Work Phone: Neurology Comment on above: Intractable chronic migraine without aura and without status migrainosus (Primary Dx) Start: 11-17-2021 End: 11-17-2021 Telemedicine consultation with patient Yari Lyons MD Work Phone: [facility] Start: 11-12-2021 Refill Francoise Carrero filiberto PRINCENRaphaelCNM Work Phone: OB/Gynecology Comment on above: Refill Request Start: 10-14-2021 End: 10-14-2021 Subsequent hospital visit by physician Mri [facility] (I-Stat/1.5t) Work Phone: Radiology Comment on above: No Show Start: 10-12-2021 ambulatory Micaela Flores DPM Work Phone: Podiatry Comment on above: Prior Auth Paperwork Start: 09-22-2021 End: 09-22-2021 Patient encounter procedure Faustina Carcamo MD Work Phone: Internal Medicine [place] Comment on above: Left ankle strain, s equela (Primary Dx); Chronic pain of left ankle; History of influenza Start: 09-16-2021 End: 09-16-2021 Subsequent hospital visit by physician Xr [facility] [place] Work Phone: Radiology Comment on above: Left ankle pain, uns pecified chronicity [M25.572] Start: 08-05-2021 End: 08-05-2021 Subsequent hospital visit by physician Xr [facility] [place] Work Phone: Radiology Comment on above: Acute left ankle skip n [M25.572] Start: 01-07-2021 End: 01-07-2021 Subsequent hospital visit by physician Xr [facility] [place] Work Phone: Radiology Comment on above: Left wrist pain [M25 .532] Start: 07-17-2020 End: 07-17-2020 Subsequent hospital visit by physician Ct [facility] (I-Stat) Work Phone: Radiology Comment on above: Chronic sinusitis, u nspecified location [J32.9] Start: 06-05-2020 End: 06-05-2020 Subsequent hospital visit by physician Xr [facility] [place] Work Phone: Radiology Comment on above: Cough [R05] Procedures Date Procedure Procedure Detail Performing Clinician Start: 04-02-2024 Radiologic exam ches t 2 views Silvia Tucker MD Work Phone: Start: 03-15-2024 UA DIP,URINE HCG (POC) Flora Jenkins MD Work Phone: Start: 10-14-2023 Radex shoulder compl ete minimum 2 views Genaro Morales DIETARY COOK.SPORTS TEACHER Work Phone: Start: 07-25-2023 Us pelvic nonobstetr ic real-time image complete Charissa Ayala MD Work Phone: Start: 06-06-2023 Radiologic exam ches t 2 views Patsy [facility]UL[facility] Work Phone: Start: 02-25-2023 BACTERIAL VAGINOSIS NAAT Francoise Rowley DIETARY COOK.CNM Work Phone: Start: 02-25-2023 Iadna trichomonas va ginalis amplified probe tech Francoise [employer] DIETARY COOK.CNM Work Phone: Start: 07-14-2022 BACTERIAL VAGINOSIS AMPLIFICATION Francoise Plotts DIETARY COOK.CNM Work Phone: Start: 07-14-2022 Iadna chlamydia trac homatis amplified probe tq Francoise Plotts DIETARY COOK.CNM Work Phone: Start: 06-28-2022 Ct abdomen & pelvis w/contrast material Juan Ramon Goodrich DIETARY COOK-CITY MAGISTRATE Work Phone: Start: 06-28-2022 End: 06-28-2022 Blood count complete auto&auto difrntl wbc Juan Ramon Goodrich DIETARY COOK-CITY MAGISTRATE Work Phone: Start: 06-28-2022 End: 06-28-2022 Urnls dip stick/tablet rgnt auto w/o microscopy Juan Ramon Goodrich DIETARY COOK-CITY MAGISTRATE Work Phone: Start: 01-20-2022 Us transvaginal Bianca Rowley DIETARY COOK.CNM Work Phone: Start: 12-04-2021 Urine test visual color cmprsn meths Francoise Rowley DIETARY COOK.CNM Work Phone: Start: 09-16-2021 Radex ankle complete minimum 3 views Irwin Campbell MD Work Phone: Start: 08-05-2021 Radex ankle complete minimum 3 views Rosaura Hickman DIETARY COOK.CITY MAGISTRATE Work Phone: Start: 01-07-2021 Radex shoulder compl ete minimum 2 views Shea Coates PA-C Work Phone: Start: 10-20-2020 Microscopic observat ion [Identifier] in Cervix by Cyto stain Juan Ramon Goodrich DIETARY COOK-CITY MAGISTRATE Work Phone: Start: 07-17-2020 Ct maxillofacial w/o contrast material Jerry Keating MD Work Phone: Start: 06-05-2020 Radiologic exam ches t 2 views Gonzalez Reyes PALillieC Work Phone: Plan of Treatment Date Care Activity Detail Author Start: 03-08-2029 Tetanus vaccination [facility] Start: 03-08-2029 Urine microalbumin profile [facility] Start: 02-26-2028 HPV TESTING HPV TESTING [facility] Start: 02-26-2028 PAP TESTING PAP TESTING [facility] Start: 02-26-2028 Screening for malignant neoplasm of cervix [facility] Start: 10-20-2025 PAP TESTING PAP TESTING [facility] Start: 02-26-2025 Screening for malignant neoplasm of cervix Cervical Cancer Screening [facility] Start: 07-30-2024 End: 07-30-2024 Patient encounter procedure 07/30/2024 10:00 AM EST Office Visit Rheumatology [address] [place] [id number] Silvia Tucker MD [address] [place] [phone] follow up Rheumatology Comment on above: follow up Start: 07-23-2024 End: 10-22-2024 25-hydroxyvitamin D3 [Mass/volume] in Serum or Plasma VITAMIN D 25 HYDROXY Lab Routine SO-JILLIAN (systemic onset juvenile idiopathic arthritis) ([facility]) Expected: 07/23/2024 (Approximate), Expires: 10/22/2024 [facility] Comment on above: Expected: 07/23/2024 (Approximate), Expi res: 10/22/2024 Start: 07-23-2024 End: 10-22-2024 Alanine aminotransferase [Enzymatic activity/volume] in Serum or Plasma ALANINE AMINOTRANSFERASE / SGPT Lab Routine SO-JILLIAN (systemic onset juvenile idiopathic arthritis) ([facility]) Expected: 07/23/2024 (Approximate), Expires: 10/22/2024 [facility] Work Phone: Comment on above: Expected: 07/23/2024 (Approximate), Expi res: 10/22/2024 Start: 07-23-2024 End: 10-22-2024 Aspartate aminotransferase [Enzymatic activity/volume] in Serum or Plasma ASPARTATE AMINOTRANSFERASE/SGOT Lab Routine SO-JILLIAN (systemic onset juvenile idiopathic arthritis) ([facility]) Expected: 07/23/2024 (Approximate), Expires: 10/22/2024 [facility] Comment on above: Expected: 07/23/2024 (Approximate), Expi res: 10/22/2024 Start: 07-23-2024 End: 10-22-2024 C reactive protein [Mass/volume] in Serum or Plasma C-REACTIVE PROTEIN Lab Routine SO-JILLIAN (systemic onset juvenile idiopathic arthritis) ([facility]) Expected: 07/23/2024 (Approximate), Expires: 10/22/2024 [facility] Comment on above: Expected: 07/23/2024 (Approximate), Expi res: 10/22/2024 Start: 07-23-2024 End: 10-22-2024 CBC W Auto Differential panel - Blood COMPLETE BLOOD COUNT AND DIFFERENTIAL Lab Routine SO-JILLIAN (systemic onset juvenile idiopathic arthritis) ([facility]) Expected: 07/23/2024 (Approximate), Expires: 10/22/2024 [facility] Comment on above: Expected: 07/23/2024 (Approximate), Expi res: 10/22/2024 Start: 07-23-2024 End: 10-22-2024 CREATININE BLD CREATININE BLD Lab Routine SO-JILLIAN (systemic onset juvenile idiopathic arthritis) ([facility]) Expected: 07/23/2024 (Approximate), Expires: 10/22/2024 [facility] Comment on above: Expected: 07/23/2024 (Approximate), Expi res: 10/22/2024 Start: 07-23-2024 End: 10-22-2024 Erythrocyte sedimentation rate SEDIMENTATION RATE, WESTERGREN Lab Routine SO-JILLIAN (systemic onset juvenile idiopathic arthritis) ([facility]) Expected: 07/23/2024 (Approximate), Expires: 10/22/2024 [facility] Comment on above: Expected: 07/23/2024 (Approximate), Expi res: 10/22/2024 Start: 07-23-2024 End: 10-22-2024 Urea nitrogen [Mass/volume] in Serum or Plasma UREA NITROGEN Lab Routine SO-JILLIAN (systemic onset juvenile idiopathic arthritis) ([facility]) Expected: 07/23/2024 (Approximate), Expires: 10/22/2024 [facility] Comment on above: Expected: 07/23/2024 (Approximate), Expi res: 10/22/2024 Start: 06-08-2024 End: 06-08-2024 Specialty Pharmacy 06/08/2024 8:00 AM EDT Specialty Pharmacy [id number] [place] [address] Pharmacist, [facility] [address] [place] [id number] REFILL Ilaris - PAx 03/27/25 ~06/20? [facility] Comment on above: REFILL Ilaris - PAx 03/27/25 ~06/20? Start: 05-15-2024 End: 05-15-2024 Specialty Pharmacy 05/15/2024 8:15 AM EDT Specialty Pharmacy [facility] [id number] [place] [address] Pharmacist, [facility] [address] [facility] [place] [address] REFILL Ilaris - PAx 03/27/25 - 05/23? - RTS 05/15 [facility] Comment on above: REFILL Ilaris - PAx 03/27/25 - 05/23? - RTS 05/15 Start: 05-14-2024 End: 05-14-2024 Nutrition therapy Nutrition Therapy Comment on above: Class 3 severe obesity due to excess janna ories with body mass index (BMI) of 50.0 to 59.9 in adult, unspecified whether serious comorbidity present (HCC) [E66.01, Z68.43] REFILL- Ilaris- PAx 03/27/25- 05/23? Start: 05-03-2024 End: 05-03-2024 Patient encounter procedure 05/03/2024 9:00 AM EDT Office Visit Cardiology [address] [place] [phone] Selma Gramajo, DO [address] [place] [address] [phone] 6 month follow up Cardiology Comment on above: 6 month follow up Start: 04-15-2024 Influenza vaccination Influenza Vaccine (#1) Ramon Colei c Start: 04-03-2024 End: 04-03-2024 Patient encounter procedure 04/03/2024 7:00 AM EDT Office Visit Internal Medicine [place] [address] [place] [address] Genaro Morales APRN.SPORTS TEACHER [address] [place], [place] [phone] 3-4 month follow up Internal Medicine [place] Comment on above: 3-4 month follow up Start: 04-02-2024 End: 07-02-2024 Alanine aminotransferase [Enzymatic activity/volume] in Serum or Plasma [facility] Work Phone: Comment on above: Expected: 04/02/2024 (Approximate), Expi res: 07/02/2024 Start: 04-02-2024 End: 07-02-2024 Aldolase [Enzymatic activity/volume] in Serum or Plasma [facility] Comment on above: Expected: 04/02/2024 (Approximate), Expi res: 07/02/2024 Start: 04-02-2024 End: 07-02-2024 Aspartate aminotransferase [Enzymatic activity/volume] in Serum or Plasma [facility] Comment on above: Expected: 04/02/2024 (Approximate), Expi res: 07/02/2024 Start: 04-02-2024 End: 07-02-2024 C reactive protein [Mass/volume] in Serum or Plasma [facility] Comment on above: Expected: 04/02/2024 (Approximate), Expi res: 07/02/2024 Start: 04-02-2024 End: 07-02-2024 Creatine kinase [Enzymatic activity/volume] in Serum or Plasma [facility] Comment on above: Expected: 04/02/2024 (Approximate), Expi res: 07/02/2024 Start: 04-02-2024 End: 07-02-2024 CREATININE BLD [facility] Comment on above: Expected: 04/02/2024 (Approximate), Expi res: 07/02/2024 Start: 04-02-2024 End: 07-02-2024 Erythrocyte sedimentation rate [facility] Comment on above: Expected: 04/02/2024 (Approximate), Expi res: 07/02/2024 Start: 04-02-2024 End: 07-02-2024 Urea nitrogen [Mass/volume] in Serum or Plasma [facility] Comment on above: Expected: 04/02/2024 (Approximate), Expi res: 07/02/2024 Start: 04-02-2024 End: 07-02-2024 Urinalysis complete panel - Urine [facility] Comment on above: Expected: 04/02/2024 (Approximate), Expi res: 07/02/2024 Start: 03-29-2024 End: 03-29-2024 Nursing evaluation of patient and report 03/29/2024 10:00 AM EDT Nurse Visit OB/Gynecology [address] [place], [place] [phone] Wstr, Nurse Broom Machine Operator [facility] [address] [place] [address] HPV OB/Gynecology Comment on above: HPV Start: 03-15-2024 End: 03-15-2024 Patient encounter procedure 03/15/2024 9:20 AM EDT Office Visit OB/Gynecology [address] [place] [address] Flora Jenkins MD [address] [place] [address] Cervical high risk HPV (human papillomavirus) test positive [R87.810] OB/Gynecology Comment on above: Cervical high risk HPV (human papillomav irus) test positive [R87.810] Start: 03-12-2024 End: 03-12-2024 Patient encounter procedure Rheumatology Comment on above: Systemic onset juvenile idiopathic arthr itis (Periodic Fever Syndrome) follow up / last seen 09/09/2023 lvm w time change Start: 02-27-2024 End: 02-27-2024 Patient encounter procedure 02/27/2024 3:30 PM EDT Office Visit OB/Gynecology [address] [place] [address] Francoise Rowley APRN.CN [address] [place] [address] Annual Exam OB/Gynecology Comment on above: Annual Exam Start: 02-26-2024 Screening for malignant neoplasm of cervix Cervical Cancer Screening [facility] Start: 01-02-2024 End: 01-02-2024 Patient encounter procedure 01/02/2024 4:40 PM EDT Office Visit Internal Medicine [place] [address] [place] [address] Faustina Carcamo MD [address] [place] [address] F/u and new gi issues Internal Medicine [place] Comment on above: F/u and new gi issues Start: 01-02-2024 End: 04-02-2024 Basic metabolic 2000 panel - Serum or Plasma BASIC METABOLIC PANEL Lab Routine Encounter for long-term current use of medication Expected: 01/02/2024, Expires: 04/02/2024 [facility] Work Phone: Comment on above: Expected: 01/02/2024, Expires: Start: 12-08-2023 End: 03-08-2024 ALGN KIWI IGE ALGN KIWI IGE Lab Routine Expected: 12/08/2023, Expires: 03/08/2024 [facility] Comment on above: Expected: 12/08/2023, Expires: Start: 12-08-2023 End: 03-08-2024 ALGN LATEX IGE ALGN LATEX IGE Lab Routine Expected: 12/08/2023, Expires: 03/08/2024 [facility] Work Phone: Comment on above: Expected: 12/08/2023, Expires: Start: 12-08-2023 End: 03-08-2024 Banana IgE Ab [Units/volume] in Serum ALGN BANANA IGE Lab Routine Expected: 12/08/2023, Expires: 03/08/2024 [facility] Comment on above: Expected: 12/08/2023, Expires: Start: 10-24-2023 End: 01-23-2024 25-hydroxyvitamin D3 [Mass/volume] in Serum or Plasma VITAMIN D 25 HYDROXY Lab Routine Vitamin D deficiency Expected: 10/24/2023, Expires: 01/23/2024 [facility] Work Phone: Comment on above: Expected: 10/24/2023, Expires: Start: 10-24-2023 End: 01-23-2024 Thyroxine (T4) free [Mass/volume] in Serum or Plasma T4 FREE/FREE THYROX Lab Routine Elevated TSH Inappropriate sinus node tachycardia (HCC) Expected: 10/24/2023, Expires: 01/23/2024 [facility] Work Phone: Comment on above: Expected: 10/24/2023, Expires: Start: 10-24-2023 End: 01-23-2024 Triiodothyronine (T3) Free [Mass/volume] in Serum or Plasma T3 FREE BLD Lab Routine Elevated TSH Inappropriate sinus node tachycardia (HCC) Expected: 10/24/2023, Expires: 01/23/2024 [facility] Work Phone: Comment on above: Expected: 10/24/2023, Expires: 4 Start: 10-21-2023 PAP TESTING PAP TESTING [facility] Start: 10-21-2023 Screening for malignant neoplasm of cervix PAP SMEAR [facility] Start: 10-14-2023 End: 01-13-2024 Chlamydia trachomatis+Neisseria gonorrhoeae DNA [Presence] in Unspecified specimen by JOSSIE with probe detection [facility] Work Phone: Comment on above: Expected: 10/14/2023, Expires: Start: 10-14-2023 End: 01-13-2024 HIV 1+2 Ab [Presence] in Serum or Plasma by Immunoassay [facility] Work Phone: Comment on above: Expected: 10/14/2023, Expires: Start: 10-14-2023 End: 01-13-2024 SYPHILIS TOTAL W/REFLEX [facility] Work Phone: Comment on above: Expected: 10/14/2023, Expires: 4 Start: 10-14-2023 End: 01-13-2024 TRICHOMONAS VAGINALIS NAAT [facility] Work Phone: Comment on above: Expected: 10/14/2023, Expires: 4 Start: 08-20-2023 End: 10-20-2023 THYROID PEROXIDASE ANTIBODY BLOOD THYROID PEROXIDASE ANTIBODY BLOOD Lab Routine Elevated TSH Expected: 08/20/2023 (Approximate), Expires: 10/20/2023 [facility] Work Phone: Comment on above: Expected: 08/20/2023 (Approximate), Expi res: 10/20/2023 Start: 08-20-2023 End: 10-20-2023 Thyrotropin [Units/volume] in Serum or Plasma TSH BLD Lab Routine Elevated TSH Expected: 08/20/2023 (Approximate), Expires: 10/20/2023 [facility] Work Phone: Comment on above: Expected: 08/20/2023 (Approximate), Expi res: 10/20/2023 Start: 08-17-2023 Covid-19 Vaccine ( season) Covid-19 Vaccine () [facility] Start: 07-22-2023 End: 07-22-2024 PELVIC US WHI PELVIC US WHI Anc Imaging Routine Pelvic pain in female Expected: 07/22/2023, Expires: 07/22/2024 [facility] Work Phone: Comment on above: Expected: 07/22/2023, Expires: 4 Start: 04-15-2023 Covid-19 Vaccine () Covid-19 Vaccine () [facility] Start: 04-15-2023 Influenza vaccination [facility] Start: 12-03-2022 End: 02-02-2023 Alanine aminotransferase [Enzymatic activity/volume] in Serum or Plasma [facility] Work Phone: Comment on above: Expected: 12/03/2022, Expires: 3 Start: 12-03-2022 End: 02-02-2023 Aspartate aminotransferase [Enzymatic activity/volume] in Serum or Plasma [facility] Work Phone: Comment on above: Expected: 12/03/2022, Expires: 3 Start: 12-03-2022 End: 02-02-2023 C reactive protein [Mass/volume] in Serum or Plasma [facility] Work Phone: Comment on above: Expected: 12/03/2022, Expires: 3 Start: 12-03-2022 End: 02-02-2023 CBC W Auto Differential panel - Blood [facility] Work Phone: Comment on above: Expected: 12/03/2022, Expires: 3 Start: 12-03-2022 End: 02-02-2023 CREATININE BLD [facility] Work Phone: Comment on above: Expected: 12/03/2022, Expires: 3 Start: 12-03-2022 End: 02-02-2023 Erythrocyte sedimentation rate [facility] Work Phone: Comment on above: Expected: 12/03/2022, Expires: 3 Start: 12-03-2022 End: 02-02-2023 Urea nitrogen [Mass/volume] in Serum or Plasma [facility] Work Phone: Comment on above: Expected: 12/03/2022, Expires: 3 Start: 2022 HPV TESTING HPV TESTING [facility] Start: 09-22-2022 COVID-19 VACCINE (6 - Pfizer risk series) COVID-19 VACCINE (6 - Pfizer risk series) [facility] Start: 09-10-2022 End: 09-10-2022 Patient encounter procedure 09/10/2022 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 Visit 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 Flora Duval, GENI-STEVIEM [address] [facility] [address] [place] [address] Obstetrics and Gynecology [facility] Start: 04-15-2022 Influenza vaccination [facility] Start: 01-20-2022 End: 02-12-2023 Us transvaginal US FEMALE PELVIS TRANSVAG Radiology Routine Intrauterine contraceptive device threads lost, initial encounter Expected: 01/20/2022, Expires: 02/12/2023 [facility] Work Phone: Comment on above: Expected: 01/20/2022, Expires: 3 Start: 11-23-2021 COVID-19 VACCINE (5 - Booster for Pfizer series) COVID-19 VACCINE (5 - Booster for Pfizer series) [facility] Start: 10-20-2021 Screening for malignant neoplasm of cervix CERVICAL CANCER SCREENING DISCUSSION [facility] Start: 09-06-2021 COVID-19 Vaccine (3 - Booster for Pfizer series) COVID-19 Vaccine (3 - Booster for Pfizer series) [facility] Start: 05-15-2015 PNEUMOCOCCAL (2 - PCV) PNEUMOCOCCAL (2 - PCV) [facility] Start: 05-15-2015 [facility] Start: 2013 Screening for malignant neoplasm of cervix CERVICAL CANCER SCREENING DISCUSSION [facility] Start: 2011 SHINGRIX VACCINE (1 of 2) SHINGRIX VACCINE (1 of 2) [facility] Start: 2010 Hepatitis C screening Hepatitis C Screening [facility] Start: 2007 HIV screening [facility] Start: 2004 Depression screening using PHQ-9 (Patient Health Questionnaire 9) score Depression Screening (PHQ-2/9) [facility] Start: 1995 History and physical examination, annual for health maintenance Wellness Visit [facility] Start: 1995 PREVENTATIVE HEALTH VISIT PREVENTATIVE HEALTH VISIT [facility] Start: 1992 Hepatitis C antibody, confirmatory test HEPATITIS C VIRUS SCREENING [facility] Start: 1992 Hepatitis C screening HEPATITIS C VIRUS SCREENING [facility] Start: 1992 Screening for malignant neoplasm of cervix Pap Smear [facility] End: 07-05-2024 Alanine aminotransferase [Enzymatic activity/volume] in Serum or Plasma ALT/SGPT Lab Routine SO-JILLIAN (systemic onset juvenile idiopathic arthritis) (HCC) Periodic fever syndrome (HCC) Every 3 months for 4 Occurrences starting 07/06/2023 until 07/05/2024 [facility] Work Phone: Comment on above: Every 3 months for 4 Occurrences startin g 07/06/2023 until 07/05/2024 End: 07-05-2024 Aspartate aminotransferase [Enzymatic activity/volume] in Serum or Plasma AST/SGOT BLD Lab Routine SO-JILLIAN (systemic onset juvenile idiopathic arthritis) (HCC) Periodic fever syndrome (HCC) Every 3 months for 4 Occurrences starting 07/06/2023 until 07/05/2024 [facility] Work Phone: Comment on above: Every 3 months for 4 Occurrences startin g 07/06/2023 until 07/05/2024 Bacteria identified in Urine by Culture URINE CULTURE Microbiology STAT RLQ abdominal pain Ordered: 06/28/2022 [facility] Comment on above: Ordered: 06/28/2022 End: 04-05-2024 C reactive protein [Mass/volume] in Serum or Plasma C-REACTIVE PROTEIN (CRP) Lab Routine SO-JILLIAN (systemic onset juvenile idiopathic arthritis) (HCC) Once per month for 3 Occurrences starting 04/06/2023 until 04/05/2024 [facility] Work Phone: Comment on above: Once per month for 3 Occurrences startin g 04/06/2023 until 04/05/2024 End: 07-05-2024 C reactive protein [Mass/volume] in Serum or Plasma C-REACTIVE PROTEIN (CRP) Lab Routine SO-JILLIAN (systemic onset juvenile idiopathic arthritis) (HCC) Periodic fever syndrome (HCC) Every 3 months for 4 Occurrences starting 07/06/2023 until 07/05/2024 [facility] Work Phone: Comment on above: Every 3 months for 4 Occurrences startin g 07/06/2023 until 07/05/2024 End: 04-05-2024 CBC W Auto Differential panel - Blood CBC + DIFF Lab Routine SO-JILLIAN (systemic onset juvenile idiopathic arthritis) (HCC) Once per month for 3 Occurrences starting 04/06/2023 until 04/05/2024 [facility] Work Phone: Comment on above: Once per month for 3 Occurrences startin g 04/06/2023 until 04/05/2024 End: 07-05-2024 CBC W Auto Differential panel - Blood CBC + DIFF Lab Routine SO-JILLIAN (systemic onset juvenile idiopathic arthritis) (HCC) Periodic fever syndrome (HCC) Every 3 months for 4 Occurrences starting 07/06/2023 until 07/05/2024 [facility] Work Phone: Comment on above: Every 3 months for 4 Occurrences startin g 07/06/2023 until 07/05/2024 Chlamydia trachomatis+Neisseria gonorrhoeae DNA [Presence] in Unspecified specimen by JOSSIE with probe detection GONORRHEA/CHLAMYDIA NAAT Lab Routine Screening for STD (sexually transmitted disease) 02/25/2023 4:49 PM EDT [facility] Work Phone: COLPOSCOPY COLPOSCOPY Proce dures Routine Cervical high risk HPV (human papillomavirus) test positive Ordered: 03/12/2024 [facility] Work Phone: Comment on above: Ordered: 03/12/2024 End: 04-05-2024 CREATININE BLD CREATININE BLD Lab Routine SO-JILLIAN (systemic onset juvenile idiopathic arthritis) (HCC) Once per month for 3 Occurrences starting 04/06/2023 until 04/05/2024 [facility] Work Phone: Comment on above: Once per month for 3 Occurrences startin g 04/06/2023 until 04/05/2024 End: 07-05-2024 CREATININE BLD CREATININE BLD Lab Routine SO-JILLIAN (systemic onset juvenile idiopathic arthritis) (HCC) Periodic fever syndrome (HCC) Every 3 months for 4 Occurrences starting 07/06/2023 until 07/05/2024 [facility] Work Phone: Comment on above: Every 3 months for 4 Occurrences startin g 07/06/2023 until 07/05/2024 End: 05-20-2024 ECG COMPLETE ECG COMPLETE ECG Routine Abnormal EKG POTS (postural orthostatic tachycardia syndrome) 1 Occurrences starting 05/20/2023 until 05/20/2024 [facility] Work Phone: Comment on above: 1 Occurrences starting 05/20/2023 until 05/20/2024 End: 04-05-2024 Erythrocyte sedimentation rate SED RATE WESTERGREN Lab Routine SO-JILLIAN (systemic onset juvenile idiopathic arthritis) (HCC) Once per month for 3 Occurrences starting 04/06/2023 until 04/05/2024 [facility] Work Phone: Comment on above: Once per month for 3 Occurrences startin g 04/06/2023 until 04/05/2024 End: 07-05-2024 Erythrocyte sedimentation rate SED RATE WESTERGREN Lab Routine SO-JILLIAN (systemic onset juvenile idiopathic arthritis) (HCC) Periodic fever syndrome (HCC) Every 3 months for 4 Occurrences starting 07/06/2023 until 07/05/2024 [facility] Work Phone: Comment on above: Every 3 months for 4 Occurrences startin g 07/06/2023 until 07/05/2024 End: 04-05-2024 Hepatic function 2000 panel - Serum or Plasma HEPATIC FUNCTION PNL Lab Routine SO-JILLIAN (systemic onset juvenile idiopathic arthritis) (HCC) Once per month for 3 Occurrences starting 04/06/2023 until 04/05/2024 [facility] Work Phone: Comment on above: Once per month for 3 Occurrences startin g 04/06/2023 until 04/05/2024 Influenza virus A an d B RNA and SARS-CoV-2 (COVID-19) N gene panel - Respiratory specimen by JOSSIE with probe detection COVID & INFLUENZA A/B NAAT, ROUTINE Microbiology Routine Fever, unspecified fever cause 06/06/2023 8:54 AM EDT [facility] Work Phone: Insertion intrauteri ne device iud INSERT INTRAUTERINE DEVICE Procedures Routine Encounter for IUD insertion Ordered: 12/04/2021 [facility] Work Phone: Comment on above: Ordered: 12/04/2021 End: 04-05-2024 Lipid 1996 panel - Serum or Plasma LIPID PANEL BASIC Lab Routine SO-JILLIAN (systemic onset juvenile idiopathic arthritis) (HCC) Every 6 months for 2 Occurrences starting 04/06/2023 until 04/05/2024 [facility] Work Phone: Comment on above: Every 6 months for 2 Occurrences startin g 04/06/2023 until 04/05/2024 End: 10-22-2022 Mri any jt lower extrem w/o contrast matrl MRI ANKLE WO IVCON LT Radiology Routine Chronic pain of left ankle 1 Occurrences starting 09/22/2021 until 10/22/2022 [facility] Work Phone: Comment on above: 1 Occurrences starting 09/22/2021 until 10/22/2022 PAP TEST PAP TEST Lab Rou subhash Encounter for gynecological examination (general) (routine) without abnormal findings 02/25/2023 4:49 PM EDT [facility] Work Phone: PAP TEST PAP TEST Lab Rou subhash Encounter for gynecological examination (general) (routine) without abnormal findings Screening for cervical cancer Encounter for screening for human papillomavirus (HPV) Cervical high risk human papillomavirus (HPV) DNA test positive 02/27/2024 3:56 PM EDT [facility] intrauterine device iud REMOVE INTRAUTERINE DEVICE Procedures Routine Pelvic pain in female Ordered: 02/27/2024 [facility] Work Phone: Comment on above: Ordered: 02/27/2024 SURGICAL PATHOLOGY SURGICAL PATH OLOGY Lab Routine Cervical high risk HPV (human papillomavirus) test positive 03/15/2024 10:31 AM EDT [facility] Work Phone: End: 04-05-2024 Urea nitrogen [Mass/volume] in Serum or Plasma BUN BLOOD Lab Routine SO-JILLIAN (systemic onset juvenile idiopathic arthritis) (HCC) Once per month for 3 Occurrences starting 04/06/2023 until 04/05/2024 [facility] Work Phone: Comment on above: Once per month for 3 Occurrences startin g 04/06/2023 until 04/05/2024 End: 07-05-2024 Urea nitrogen [Mass/volume] in Serum or Plasma BUN BLOOD Lab Routine SO-JILLIAN (systemic onset juvenile idiopathic arthritis) (HCC) Periodic fever syndrome (HCC) Every 3 months for 4 Occurrences starting 07/06/2023 until 07/05/2024 [facility] Work Phone: Comment on above: Every 3 months for 4 Occurrences startin g 07/06/2023 until 07/05/2024 End: 11-12-2024 XR Shoulder - left 2 Views XR SHOULDER LIMITED 2V AP/TRUE AP LEFT Radiology Routine Chronic left shoulder pain 1 Occurrences starting 10/14/2023 until 11/12/2024 [facility] Work Phone: Comment on above: 1 Occurrences starting 10/14/2023 until 11/12/2024 XR Shoulder - left 2 Views XR SHOULDER LIMITED 2V AP/TRUE AP LEFT Radiology Routine Chronic left shoulder pain 10/14/2023 12:10 PM EST [facility] Work Phone: XR Shoulder - right 2 Views XR SHOULDER [id number] AP/TRUE AP RIGHT Radiology Routine Chronic left shoulder pain 10/14/2023 11:48 AM EST [facility] Work Phone: [facility] Immunizations Immunization Date Immunization Notes Care Provider [facility] 04-21-2024 Seasonal trivalent influenza vaccine, adjuvanted, preservative free Silvia Tucker MD Work Phone: [facility] 03-29-2024 Human Papillomavirus 9-valent vaccine Francoise Rowley GENI.CNM Work Phone: [facility] 03-15-2024 HPV, unspecified formulation Flora Jenkins MD Work Phone: [facility] 05-24-2023 influenza, injectabl e, quadrivalent, contains preservative Flora Jenkins MD Work Phone: [facility] 05-24-2023 influenza virus vaccine, unspecified formulation Sasha Lau MD Work Phone: [facility] 07-20-2022 influenza, injectabl e, quadrivalent, preservative free Isis Melo [employer] Work Phone: [facility] 07-20-2022 influenza virus vaccine, unspecified formulation Faustina Carcamo MD Work Phone: [facility] 04-06-2021 COVID-19 vaccine, ag e 12+ yr (PFIZER-BIONTECH - PURPLE TOP) Francoise Plotts DIETARY COOK.CNM Work Phone: [facility] Work Phone: 04-06-2021 influenza, injectabl e, quadrivalent, preservative free Isis MARTINEZW Work Phone: [facility] 04-06-2021 influenza, seasonal, injectable Francoise Plotts DIETARY COOK.CNM Work Phone: [facility] Work Phone: 04-06-2021 influenza virus vaccine, unspecified formulation Mario LARRY Work Phone: [facility] 11-01-2020 COVID-19 vaccine, ag e 12+ yr (PFIZER-BIONTECH - PURPLE TOP) Francoise Plotts DIETARY COOK.CNM Work Phone: [facility] Work Phone: 04-25-2020 influenza, injectabl e, quadrivalent, preservative free Francoise Plotts DIETARY COOK.CNM Work Phone: [facility] 06-20-2019 influenza, injectabl e, quadrivalent, contains preservative Francoise Plotts DIETARY COOK.CNM Work Phone: [facility] 03-08-2019 tetanus toxoid, reduced diphtheria toxoid, and acellular pertussis vaccine, adsorbed Francoise Plotts DIETARY COOK.CNM Work Phone: [facility] 06-19-2018 influenza, injectabl e, quadrivalent, contains preservative Francoise Plotts DIETARY COOK.CNM Work Phone: [facility] 04-27-2017 influenza, injectabl e, quadrivalent, contains preservative Francoise Plotts DIETARY COOK.CNM Work Phone: [facility] 06-25-2016 influenza, injectabl e, quadrivalent, contains preservative Francoise Plotts DIETARY COOK.CNM Work Phone: [facility] 05-15-2014 influenza, seasonal, injectable Francoise Rowley DIETARY COOK.CNM Work Phone: [facility] 05-15-2014 pneumococcal polysaccharide vaccine, 23 valent Francoise Rowley DIETARY COOK.CNM Work Phone: [facility] 06-19-2013 influenza virus vaccine, unspecified formulation Francoise Rowley DIETARY COOK.CNM Work Phone: [facility] 04-15-2011 meningococcal polysaccharide (groups A, C, Y and W-135) diphtheria toxoid conjugate vaccine (MCV4P) Francoise Rowley DIETARY COOK.CNM Work Phone: [facility] 03-17-2011 hepatitis A vaccine, pediatric/adolescent dosage, 2 dose schedule Mario ANDRES Work Phone: [facility] 03-17-2011 hepatitis A vaccine, unspecified formulation Francoise Rowley DIETARY COOK.CNM Work Phone: [facility] Work Phone: 03-17-2011 tetanus toxoid, reduced diphtheria toxoid, and acellular pertussis vaccine, adsorbed Francoise Rowley DIETARY COOK.CNM Work Phone: [facility] Work Phone: 03-17-2011 tuberculin skin test ; purified protein derivative solution, intradermal Patmike Tucker MD Work Phone: [facility] 01-14-2010 human papilloma viru s vaccine, quadrivalent Francoise Rowley DIETARY COOK.CNM Work Phone: [facility] Work Phone: 06-14-2007 human papilloma viru s vaccine, quadrivalent Francoise Harryts DIETARY COOK.CNM Work Phone: [facility] Work Phone: 05-09-2007 human papilloma viru s vaccine, quadrivalent Francoise Harryts DIETARY COOK.CNM Work Phone: [facility] Work Phone: 04-04-2006 hepatitis B vaccine, pediatric or pediatric/adolescent dosage Francoise Rowley DIETARY COOK.CNM Work Phone: [facility] Work Phone: 05-31-2005 hepatitis B vaccine, pediatric or pediatric/adolescent dosage Francoise Harryts DIETARY COOK.CNM Work Phone: [facility] Work Phone: 04-02-2005 hepatitis B vaccine, pediatric or pediatric/adolescent dosage Francoise Harryts DIETARY COOK.CNM Work Phone: [facility] Work Phone: 04-02-2005 meningococcal polysaccharide (groups A, C, Y and W-135) diphtheria toxoid conjugate vaccine (MCV4P) Mario LARRY Work Phone: [facility] 04-02-2005 Meningococcal, MCV4, unspecified conjugate formulation(groups A, C, Y and W-135) Francoise Rowley DIETARY COOK.CNM Work Phone: [facility] Work Phone: 04-02-2005 tetanus and diphther ia toxoids, adsorbed, preservative free, for adult use (2 Lf of tetanus toxoid and 2 Lf of diphtheria toxoid) Francoise Rowley DIETARY COOK.CNM Work Phone: [facility] Work Phone: 04-02-2005 tetanus and diphther ia toxoids, not adsorbed, for adult use Mario LARRY Work Phone: [facility] 03-17-1998 diphtheria, tetanus toxoids and acellular pertussis vaccine Francoise Rowley DIETARY COOK.CNM Work Phone: [facility] Work Phone: 03-17-1998 measles, mumps and rubella virus vaccine Francoise Rowley DIETARY COOK.CNM Work Phone: [facility] Work Phone: 03-17-1998 trivalent poliovirus vaccine, live, oral Francoise Rowley DIETARY COOK.CNM Work Phone: [facility] Work Phone: 10-23-1994 diphtheria, tetanus toxoids and acellular pertussis vaccine Francoise Kamrynts DIETARY COOK.CNM Work Phone: [facility] Work Phone: 10-23-1994 haemophilus influenz ae type b vaccine, HbOC conjugate Francoise Plotts DIETARY COOK.CNM Work Phone: [facility] Work Phone: 10-23-1994 trivalent poliovirus vaccine, live, oral Francoise Kamrynedison DIETARY COOK.CNM Work Phone: [facility] Work Phone: 04-06-1994 Chicken Pox (disease) Jane Rowley DIETARY COOK.CNM Work Phone: [facility] Work Phone: 04-06-1994 poliovirus vaccine, unspecified formulation Mario LARRY Work Phone: [facility] 04-06-1994 varicella virus vaccine Addie Herrera Work Phone: [facility] 02-02-1994 measles, mumps and rubella virus vaccine Francoise Plotts DIETARY COOK.CNM Work Phone: [facility] Work Phone: 04-15-1993 diphtheria, tetanus toxoids and pertussis vaccine Francoise Harryts DIETARY COOK.CNM Work Phone: [facility] Work Phone: 04-15-1993 haemophilus influenz ae type b vaccine, HbOC conjugate Francoise Plotts DIETARY COOK.CNM Work Phone: [facility] Work Phone: 02-17-1993 diphtheria, tetanus toxoids and pertussis vaccine Francoise Plotts DIETARY COOK.CNM Work Phone: [facility] Work Phone: 02-17-1993 haemophilus influenz ae type b vaccine, HbOC conjugate Francoise Plotts DIETARY COOK.CNM Work Phone: [facility] Work Phone: 02-17-1993 trivalent poliovirus vaccine, live, oral Francoise Rowley DIETARY COOK.CNM Work Phone: [facility] Work Phone: 1992 diphtheria, tetanus toxoids and pertussis vaccine Francoise Plotts DIETARY COOK.CNM Work Phone: [facility] Work Phone: 1992 haemophilus influenz ae type b vaccine, Hb[facility] Work Phone: [facility] Work Phone: 1992 trivalent poliovirus vaccine, live, oral Francoise Harryts DIETARY COOK.CNM Work Phone: [facility] Work Phone: Payers Date Payer Category Payer Medicaid [id number] 2023 Unknown [id number] 2022 Private Health Insurance [id number] 2022 Private Health Insurance [id number] 2022 Unknown MMO MMO [employer] [id number] 2022-Present [phone] [address] [place] [address] PPO [id number] 2022 Unknown [id number] 2022 Unknown [id number] 2018 Medicaid [facility] [id number] 2018-Present [phone] [address] [place] [address] Medicaid [id number] 2018 Medicaid [id number] 1992 Unknown [id number] 1992 Unknown [id number] 1992 Unknown [id number] 1992 Unknown [id number] 1992 Unknown [id number] 1992 Unknown [id number] 1992 Unknown [id number] 1992 Unknown [id number] 1992 Unknown [id number] Social History Date Type Detail Facility Start: 01-24-2015 End: 07-14-2022 Tobacco smoking status IDIS Never smoked tobacco [facility] Start: 01-24-2015 End: 07-14-2022 Tobacco use and exposure Smokeless tobacco non-user [facility] Start: 06-04-2020 End: 10-29-2021 Alcohol intake Current drinker of alcohol (finding) [facility] Start: 09-16-2021 End: 08-10-2022 History SDOH Alcohol Frequency 2 [facility] Start: 09-16-2021 End: 08-10-2022 History SDOH Alcohol Std Drinks 1 [facility] Start: 10-20-2020 History SDOH Alcohol Comment occiasionally [facility] Start: 09-16-2021 History SDOH Social Connections Phone 5 [facility] Start: 09-16-2021 End: 08-10-2022 History SDOH Social Connections Living 7 [facility] Start: 09-16-2021 End: 08-10-2022 History SDOH Stress 3 [facility] Start: 01-08-2020 Education 17 [facility] Start: 08-01-2012 Tobacco Comment father and mother smoke inside [facility] Start: 1990 Sex Assigned At Female [facility] Start: 11-03-2021 End: 11-13-2021 Exposure to SARS-CoV-2 (event) Yes [facility] Work Phone: Start: 05-06-2020 End: 06-28-2022 Exposure to SARS-CoV-2 (event) Not sure [facility] Start: 1990 Sex Assigned At Not on file [facility] Start: 07-14-2022 Tobacco Comment Father and Mother smoked in home. Stopped 03/2013. [facility] Start: 08-10-2022 History SDOH Stress 4 [facility] Start: 09-10-2022 End: 09-20-2022 Exposure to SARS-CoV-2 (event) Unable to assess [facility] Start: 06-04-2020 End: 08-09-2022 History of Social function [facility] Start: 06-04-2020 End: 08-09-2022 Social connection and isolation panel [facility] Are you now , , , , never or living with a partner? Never [facility] How often to you hav e a drink containing alcohol? Monthly or less [facility] How many standard drinks containing alcohol do you have on a typical day? 1 or 2 [facility] How often do you hav e 6 or more drinks on 1 occasion? Never [facility] How hard is it for y ou to pay for the very basics like food, housing, medical care, and heating Somewhat hard [facility] Adult Depression Screening Assessment 2 [facility] Do you feel stress - tense, restless, nervous, or anxious, or unable to sleep at night because your mind is troubled all the time - these days [OSQ] Rather much [facility] (I/We) worried whenino er (my/our) food would run out before (I/we) got money to buy more. Never true [facility] In the past 12 month s, was there a time when you were not able to pay the mortgage or rent on time? No [facility] Start: 11-17-2018 Gender identity Identifies as female gender (finding) [facility] Start: 03-17-2021 Sexual orientation Bisexual (finding) [facility] How often to you hav e a drink containing alcohol? 2-3 time sa week [facility] Do you feel stress - tense, restless, nervous, or anxious, or unable to sleep at night because your mind is troubled all the time - these days [OSQ] To some extent [facility] How often do you hav e 6 or more drinks on 1 occasion? Less than monthly [facility] (I/We) worried wheth er (my/our) food would run out before (I/we) got money to buy more. Sometimes true [facility] Start: 09-17-2013 Alcohol Comment About one drink every 2 months [facility] Medical Equipment Procedure Code Equipment Code Equipment Origin al Text Equipment Identifier Dates [id number], [id number], [id number], [id number] Start: 04-22-2021 End: 12-08-2023 Comment on above: 1 Syringe every 4 we eks. [facility] Clinical Notes 06-05-2020 to 05-15-2024 Ronnie Yoon - 05/15/2024 1:31 PM EDTPatient InstructionsCuPauly rascon RD - 05/14/2024 9:30 AM EDTTelephone Encounter - Jinny Davenport LPN - 05/08/2024 1:38 PM EDTPatient Instructions Note Date & Type Note Facility 05-15-2024 History of Present illness Narrative [facility] Refill Assessment Medication(s): Ksaris Patient's current medication list and adherence status to current therapy were reviewed by Specialty Pharmacy clinical pharmacist to identify any new drug interactions or non-compliance to therapy. Therapy continues to be appropriate for disease, patient response, and medical condition. Verification of therapeutic benefit and effectiveness with current therapy was completed. Adverse events, barriers in adherence, and side effects were assessed and addressed if applicable. Will proceed with refill with no changes in therapy - patient progressing towards achieving therapeutic goals based on medication-specific laboratory parameters, disease state markers and outcomes. Office/provider notes have been reviewed prior to dispensing the medication. Breakfast Cook Assessment Patient confirmed: Yes Med/dose confirmed: Yes Supplies needed: No supplies needed Missed doses: No Estimated days supply on hand: 0 Next cycle/dose due: (ND ~05/20-05/24) Copay amount: 0 Payment confirmed: Yes Delivery method: FedEx Signature required: Waived on patient request Delivery address: [address] [place], [place] [address] [address] Delivery date: 05/17/24 Questions or concerns for the pharmacist?: No Did you have any side effects believed to be related to this medication, that resulted in hospitalization?: No Current Outpatient Medications on File Prior to Visit Medication Sig WALKER ROLLATOR SEAT WITH 6 WHEELS - RED Adjustable. Use as directed for gait instability Syringe with Needle, Disp, 3 mL 18 x 1 1/2 Use to draw up ilaris dose Syringe with Needle, Disp, 1 mL 27 x 1/2 Use to inject subcutaneous Ilaris dose canakinumab, PF, (ILARIS, PF,) 150 mg/mL injection Inject 150mg (1 vial) subcutaneously every 4 weeks. ergocalciferol 50,000 unit capsule (VITAMIN D2, DRISDOL) Take 1 tablet by mouth once weekly. metFORMIN ER (GLUCOPHAGE XR) 500 mg 24 hr tablet Take 1 tablet by mouth daily with breakfast. Norethindrone, Contraceptive, 0.35 mg tablet Take 1 tablet by mouth once daily. EPINEPHrine (EPIPEN 2-ISIDRO) 0.3 mg/0.3 mL auto-injector Inject 0.3 mL intramuscularly as needed. 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 2.5 mg at onset of headache, may repeat in 4 hours if needed albuterol HFA (PROAIR HFA) 90 mcg/actuation inhaler Inhale 2 Puffs as instructed every 4 hours as needed. baclofen 10 mg tablet Take 1 tablet by mouth three times a day as needed. fluvoxaMINE (LUVOX) 100 mg tablet Take 2 tablets by mouth once daily. atenolol (TENORMIN) 25 mg tablet Take 1 tablet by mouth two times a day as needed. FLUoxetine (PROZAC) 10 mg capsule Take 1 capsule by mouth once daily. Can go up to 20 mg after 1 month if needed colchicine 0.6 mg tablet Take 1 tablet by mouth twice daily. montelukast (SINGULAIR) 10 mg tablet Take 1 tablet by mouth daily at bedtime. zonisamide (ZONEGRAN) 100 mg capsule Take 3-4 caps at bedtime. propranolol (INDERAL) 10 mg tablet Take 1-2 tablets by mouth twice daily as needed (palpitations or tremors). levonorgestrel (MIRENA) 20 mcg/24 hours (7 yrs) 52 mg IUD 1 Each by INTRAUTERINE route as directed. levocetirizine 5 mg tablet Take 5 mg by mouth as needed. azelastine (ASTELIN) 0.1% nasal spray Use 2 Sprays in each nostril twice daily as needed. (Patient taking differently: Use 2 Sprays in each nostril once daily.) triamcinolone acetonide (NASACORT) 55 mcg nasal inhaler Use 2 Sprays in the nose once daily. No current facility-administered medications on file prior to visit. [facility] CLINICAL ASSESSMENT - INFLAMMATORY CONDITIONS V6: Assessment to use: Refill Date of influenza vaccination reminder: 04/24/2024 Date of most recent vaccination assessment: 04/24/2024 Treatment Plan Information: Ilaris Inject 150mg (1 vial) subcutaneously every 4 weeks. Est. Tx Plan Start Date: No information available Estimated Start Date Info: Established on therapy Est. Estimated Treatment Duration: Until lack of efficacy Ronnie Yoon ([facility]) [facility] FAX: documented in this encounter [facility] 05-15-2024 Note [facility] 05-14-2024 Instructions Pauly Cleveland, GUEVARA - 05/14/2024 10:05 AM EDT If able include exercise most days, walking, chair exercises, yoga, weight resistance etc. Work on regular sleep/wake schedule, waking earlier Try to have first meal 1-2 hours after waking, then have nutrition every 4-5 hours Start meal planning Follow the Plate Method at lunch and dinner: Use a 9 plate - 1/2 plate vegetables-non starchy such as green beans, greens, broccoli, cauliflower, etc (1 serving of fruit optional outside of plate) - 1/4 plate lean protein-primarily chicken, turkey fish, lean red 1-2 x per week at most (size of palm) - 1/4 plate whole grain or starchy vegetable such as corn, peas, potatoes, beans (size of fist, 1 cup) All meals and snacks at the dinner table; minimize distractions, no TV while eating. Make meals last at least 20 min, chew each bite of food 20 x per bite.Portion out all foods, never eat out of container. Become more mindful of meal: Enjoy flavors, textures etc. Use hunger/fullness scale. Keep conversation light and positive Consider using whey protein instead of CIB documented in this encounter [facility] 05-14-2024 Note [facility] 05-14-2024 History of Present illness Narrative [facility] Nutrition Therapy: Virtual Consult - Initial Assessment I have communicated my name and active licensure. The patient s identity and physical location were verified at the time of this visit. Either the patient or their legal contact center representative has been informed of the risks and benefits of -- and alternatives to -- treatment through a remote evaluation and consents to proceed with the evaluation remotely. Nutrition Diagnosis: Overweight/obesity, related to, excess energy intake and physical inactivity, as evidenced by BMI above normative standard for age and gender. RECOMMENDED MALNUTRITION DIAGNOSIS: NO MALNUTRITION IDENTIFIED NUTRITION CARE PLAN Nutrition Intervention 05/14/2024: modify type and amount of food or beverage If able include exercise most days, walking, chair exercises, yoga, weight resistance etc. Work on regular sleep/wake schedule, waking earlier Try to have first meal 1-2 hours after waking, then have nutrition every 4-5 hours Start meal planning Follow the Plate Method at lunch and dinner: Use a 9 plate - 1/2 plate vegetables-non starchy such as green beans, greens, broccoli, cauliflower, etc (1 serving of fruit optional outside of plate) - 1/4 plate lean protein-primarily chicken, turkey fish, lean red 1-2 x per week at most (size of palm) - 1/4 plate whole grain or starchy vegetable such as corn, peas, potatoes, beans (size of fist, 1 cup) All meals and snacks at the dinner table; minimize distractions, no TV while eating. Make meals last at least 20 min, chew each bite of food 20 x per bite.Portion out all foods, never eat out of container. Become more mindful of meal: Enjoy flavors, textures etc. Use hunger/fullness scale. Keep conversation light and positive Consider using whey protein instead of CIB Nutrition Monitoring & Evaluation: balanced diet and gradual weight loss Need for Follow up: ~6 weeks Patient presents for initial MNT as relates to class 3 obesity Body mass index is 51.67 kg/m . Other medical issues POTS, MAXWELL, eating disorder/bullimia. States can lose weight but not in healthy way and not without triggering eating disorder. Can either follow a strict diet or none at all. Seeing a counselor for trauma but not eating disorder. Intake noted for eating two meals and an evening snack for long periods between meals resulting in high hunger at dinner and reported overeating and very hungry in evening. Beverages appropriate, exercise and activity less than recommended. Patient's symptoms are: Weight Concerns: failure to lose weight Diet History: wake 11 Lunch - 11- smoothie (spinach, Fage, milk, high protein CIB and fruit) Snack - no Partner home around 6:30 Dinner - 7:30-8- plant based 3-4 x per week; red one x per week, chicken one x per week/veg: salad, wax beans, carrots/occ rice or noodles, soba or udon, orzo, cous cous, dumont wheat, sour dough bread Snack - toast with pnb, apple with pnb, ice cream 2-3 x per week, small handful nuts Beverages - sparkling water, water, gatorade in summer or pedialyte, milk with milk Alcohol- no Vitamins/Supplements - focusing on micronutrients Bed: 1 a.m. (Has not yet slept - had migraine last night) Supposed to add 5-10 grams Some days all starches - bread, cereal, ice cream, mashed potatoes Occ on steroids Activity: Activities of Daily Living: varies Additional Activity: Lightly active (Light exercise: planned physical activity 1-3 days/week) Limited lately, arthritis flare Trying to walk every few days stretching Anthropometrics: Height: Last Ht 05/14/24 : 153.7 cm (5' 0.5 ) Current weight: Last Wt 05/14/24 : 122 kg (269 lb) Body mass index is 51.67 kg/m . Resting Metabolic Rate: 1866 Malnutrition Screening Significant unintentional weight loss? No Eating less than 75% of usual intake for more than 2 weeks? No Potential Signs of Inflammation: no identifiable sources Education Materials Provided: None this visit READINESS TO LEARN Cognitive ability: Alert and oriented Motivation to learn: Interested Family support: Unable to assess - Family not present Instruction provided to: Patient Patient learns best by: Individual Instruction Factors affecting learning: None Physical limitations affecting learning: None Referred by: Andrew JONES Billing Type: Initial Assess/15 min 3 units SIGNATURE: Pauly Cleveland RD PATIENT NAME: Liliam Thompson DATE: May 14, 2024 TIME: 9:34 AM documented in this encounter [facility] 05-08-2024 Telephone encounter Note Order has been faxed to [facility] as instructed [facility] 05-08-2024 Miscellaneous Notes Order has been faxed to [facility] as instructed OK, printed, resend. Patient calls and states that Rollator prescription needs to be for an adjustable Rollator. Please send updated order to [facility]. Please review and advise, Patsy Mcclellan RN documented in this encounter [facility] 05-08-2024 Telephone encounter Note OK, printed, resend. [facility] 05-04-2024 Telephone encounter Note Patient calls and states that Rollator prescription needs to be for an adjustable Rollator. Please send updated order to [facility]. Please review and advise, Patsy Mcclellan RN [facility] 04-30-2024 Telephone encounter Note Order and pertinent information faxed to [facility]. Yana Cruz LPN [facility] 04-30-2024 Miscellaneous Notes Order and pertinent information faxed to [facility]. Yana Cruz LPN Patient is requesting her rollator order be sent to [facility] in [place], please review and advise. La Nena Lui April 30, 2024 1:24 PM documented in this encounter [facility] 04-30-2024 Telephone encounter Note Patient is requesting her rollator order be sent to [facility] in [place], please review and advise. La Nena Lui April 30, 2024 1:24 PM [facility] 04-30-2024 Instructions Faustina Carcamo MD - 04/30/2024 12:53 PM EDT -I have prescribed a rollator to assist with your mobility issues related to POTS and arthritis. I will print the prescription order, and you can inform us where to fax it once you have confirmed with your insurance. - I am writing a letter to verify your mobility issues and the need for accommodations due to your difficulty climbing stairs. This letter will be electronically signed and available in [employer] for you to access. - If physical therapy is required by your insurance before obtaining the rollator, please let us know your preference for a [facility] location. - Please let us know if there is any additional paperwork that needs to be signed for your ADA request. documented in this encounter [facility] 04-30-2024 History of Present illness Narrative VIRTUAL VISIT PROGRESS NOTE This is a virtual visit using [employer] Zoom Video Visit. It required patient-provider interaction for the medical decision making as documented below. I have communicated my name and active licensure. The patient's identity and physical location were verified at the time of this visit. Either the patient or their legal contact center representative has been informed of the risks and benefits of -- and alternatives to -- treatment through a remote evaluation and consents to proceed with the evaluation remotely. Liliam Thompson is a 33 year old female seen for mobility issues.. The patient is a 33-year-old female with a history of POTS and arthritis, presenting with mobility issues and difficulty climbing stairs. The patient reports increased difficulty with ambulation due to POTS and arthritis, resulting in bilateral hip and knee pain. She experiences lightheadedness secondary to orthostatic hypotension and has had multiple falls recently. She is interested in using a rollator to assist with mobility and provide a means to rest when needed. Additionally, the patient reports severe pain and exhaustion from climbing two flights of stairs to her apartment, leading to periods of being unable to leave her apartment for days. She requests a letter to her landlord verifying her mobility issues and the need for accommodations. HISTORY REVIEWED (electronic chart updated): PAST MEDICAL HISTORY Diagnosis Date Anxiety Angeli Constantino Asthmatic bronchitis recurrent episodes since pneumonia fall and winter Depression Angeli Constantino Epigastric abdominal pain Fibromyalgia Dr. 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 @[facility] Migraine with aura visual aura; diagnosed with complex migraines Nausea MAXWELL (obstructive sleep apnea) 03/10/2016 PMH - PAST MEDICAL HISTORY OF age 1 1/2 febrile seizures-with varicella PMH - PAST MEDICAL HISTORY OF 6-7 months dislocated elbow PMH - PAST MEDICAL HISTORY OF menarche age 14 years PMH - PAST MEDICAL HISTORY OF 1998 normal color vision POTS (postural orthostatic tachycardia syndrome) 04/23/2018 Rectal bleeding Sinus arrhythmia Snoring Suicide attempt by acetaminophen overdose ([facility]) 06/2014 Syncope Vomiting PAST SURGICAL HISTORY Procedure Laterality Date COLONOSCOPY 05/15/2011 COLONOSCOPY FLX DX W/COLLJ SPEC WHEN PFRMD 07/03/2014 EGD TRANSORAL BIOPSY SINGLE/MULTIPLE 07/03/2014 MIRENA IUD 12/04/2021 Placed in office- Due for removal 11/2028 FAMILY HISTORY Problem Relation Age of Onset Arthritis Mother Systemic Lupus (SLE) Glaucoma Mother Psoriasis Mother Coronary Artery Disease Father other (Familial idiopathic pulmonary fibrosis) Father 65 Not progressing at this time (2016) Systemic Lupus Erythematosus Sister Psoriasis Sister Psoriasis Brother Diabetes Maternal Grandmother Hypertension Maternal Grandmother Stroke Maternal Grandmother Emphysema Maternal Grandfather Heart Maternal Grandfather other (chf) Maternal Grandfather Heart Paternal Grandfather other (Familial IPF) Paternal Grandfather Rheumatologic disease Maternal Aunt RA Diabetes Maternal Aunt Diabetes Maternal Aunt Social History Tobacco Use Smoking status: Never Smokeless tobacco: Never Tobacco comments: Father and Mother smoked in home. Stopped 03/2013. Vaping Use Vaping status: Never Used Substance Use Topics Alcohol use: Yes Comment: occiasionally Drug use: No Current Outpatient Medications Medication Sig Syringe with Needle, Disp, 3 mL 18 x 1 1/2 Use to draw up ilaris dose Syringe with Needle, Disp, 1 mL 27 x 1/2 Use to inject subcutaneous Ilaris dose canakinumab, PF, (ILARIS, PF,) 150 mg/mL injection Inject 150mg (1 vial) subcutaneously every 4 weeks. ergocalciferol 50,000 unit capsule (VITAMIN D2, DRISDOL) Take 1 tablet by mouth once weekly. metFORMIN ER (GLUCOPHAGE XR) 500 mg 24 hr tablet Take 1 tablet by mouth daily with breakfast. Norethindrone, Contraceptive, 0.35 mg tablet Take 1 tablet by mouth once daily. EPINEPHrine (EPIPEN 2-ISIDRO) 0.3 mg/0.3 mL auto-injector Inject 0.3 mL intramuscularly as needed. 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 2.5 mg at onset of headache, may repeat in 4 hours if needed albuterol HFA (PROAIR HFA) 90 mcg/actuation inhaler Inhale 2 Puffs as instructed every 4 hours as needed. baclofen 10 mg tablet Take 1 tablet by mouth three times a day as needed. fluvoxaMINE (LUVOX) 100 mg tablet Take 2 tablets by mouth once daily. atenolol (TENORMIN) 25 mg tablet Take 1 tablet by mouth two times a day as needed. FLUoxetine (PROZAC) 10 mg capsule Take 1 capsule by mouth once daily. Can go up to 20 mg after 1 month if needed colchicine 0.6 mg tablet Take 1 tablet by mouth twice daily. montelukast (SINGULAIR) 10 mg tablet Take 1 tablet by mouth daily at bedtime. zonisamide (ZONEGRAN) 100 mg capsule Take 3-4 caps at bedtime. propranolol (INDERAL) 10 mg tablet Take 1-2 tablets by mouth twice daily as needed (palpitations or tremors). levonorgestrel (MIRENA) 20 mcg/24 hours (7 yrs) 52 mg IUD 1 Each by INTRAUTERINE route as directed. levocetirizine 5 mg tablet Take 5 mg by mouth as needed. azelastine (ASTELIN) 0.1% nasal spray Use 2 Sprays in each nostril twice daily as needed. (Patient taking differently: Use 2 Sprays in each nostril once daily.) triamcinolone acetonide (NASACORT) 55 mcg nasal inhaler Use 2 Sprays in the nose once daily. No current facility-administered medications for this visit. ALLERGIES Allergen Reactions Latex, Natural Rubb* Hives Banana GI Upset, Itching Gi issues and tingling of tongue and tightness in throat Latex Hives Seasonal Allergies Unknown GRASSES, WEEDS AND RAGWEED VERIFIED BY SKIN TESTING REVIEW OF SYSTEMS: As noted in HPI PHYSICAL EXAMINATION: VIDEO EXAM: (if completed, performed via video enabled technology) GENERAL: alert and appropriate, in no distress, well-hydrated, well nourished, and happy, smiling, interactive HEAD: normocephalic, no abnormality or lesion noted EYES: no injection and visual acuity is grossly normal RESPIRATORY: breathing non-labored ASSESSMENT AND PLAN # Bilateral hip pain (M25.551) # Chronic pain of both knees (M25.561) # Arthritis (M19.90) # Mobility poor (Z74.09) - Bilateral hip and knee pain secondary to arthritis contributing to poor mobility and difficulty with ambulation. - Ordered a rollator with seat and six-inch wheels to assist with mobility and provide the ability to rest as needed. - Diagnoses of bilateral hip pain, chronic pain of both knees, arthritis, and mobility issues documented on the prescription order. - Patient to inform clinic of preferred durable medical equipment supplier for faxing the prescription. - Drafted and electronically signed a letter verifying mobility issues that prevent frequent stair climbing, to be used for ADA accommodation requests. # POTS (postural orthostatic tachycardia syndrome) (G90.A) - POTS contributing to episodes of lightheadedness and need for frequent rest during ambulation. - Rollator will assist in managing symptoms by providing a means to sit when necessary. There are no Patient Instructions on file for this visit. I spent a total of 15 minutes on the date of the service which included preparing to see the patient, completing clinical documentation, obtaining and/or reviewing separately obtained history, and counseling and educating the patient/family/caregiver. Letter done for accommodations . Faustina Carcamo MD documented in this encounter [facility] 04-30-2024 Note [facility] 04-24-2024 Telephone encounter Note Please sign these orders, patient needs syringes to go with her new Ilaris prescription. Patient is new to [facility] not new to Ilaris. Thank you Requested Prescriptions Pending Prescriptions Disp Refills Syringe with Needle, Disp, 3 mL 18 x 1 1/2 1 Each 12 Sig: Use to draw up ilaris dose Syringe with Needle, Disp, 1 mL 27 x 1/2 1 Each 12 Sig: Use to inject subcutaneous Ilaris dose Please review and advise. Ramin Glasgow RPh [facility] 04-24-2024 Miscellaneous Notes Please sign these orders, patient needs syringes to go with her new Ilaris prescription. Patient is new to [facility] not new to Ilaris. Thank you Requested Prescriptions Pending Prescriptions Disp Refills Syringe with Needle, Disp, 3 mL 18 x 1 1/2 1 Each 12 Sig: Use to draw up ilaris dose Syringe with Needle, Disp, 1 mL 27 x 1/2 1 Each 12 Sig: Use to inject subcutaneous Ilaris dose Please review and advise. Ramin Glasgow RPh documented in this encounter [facility] 04-19-2024 History of Present illness Narrative [facility] received prescription(s) for Ilaris from Ungprasert's office. Benefits investigation was conducted, indicating that a prior authorization is required by patient's insurance plan with [place] Medicaid/[employer]. Encounter will be updated once prior authorization has been submitted by [facility]. Ronnie Yoon ([facility]) [facility] FAX: documented in this encounter [facility] 04-19-2024 Note HNO ID: [id number] Author: ?, ?, ? Service: ? Author Type: ? Type: Progress Notes Filed: 04/23/2024 16:13 Note Text: [facility] 04-19-2024 Note [facility] 04-19-2024 Note [facility] 04-18-2024 Telephone encounter Note Images from the original note were not included. Most recent Rheumatology visit: 03/12/2024 (with Silvia Tucker) Last Bone Density on file: None on file Rheumatology Care Team: None on file Recent Office Visits - This Specialty 03/12/2024 SO-JILLIAN (systemic onset juvenile idiopathic arthritis) ([facility]) Rheumatology Silvia Tucker MD 09/09/2023 SO-JILLIAN (systemic onset juvenile idiopathic arthritis) ([facility]) Rheumatology Silvia Tucker MD 03/24/2023 Periodic fever syndrome ([facility]) Rheumatology/Pulmonary Silvia Tucker MD Upcoming Rheumatology Appointments - Next 365 Days Visit Type Date Time Department [facility] MEDICAL 07/30/2024 10:00 AM [facility] INDP CBC: Latest Ref Rng & Units 02/09/2024 04/02/2024 CBC WBC 3.70 - 11.00 k/uL 6.19 8.77 Hemoglobin 11.5 - 15.5 g/dL 14.2 13.6 Hematocrit 36.0 - 46.0 % 42.1 41.7 Platelet Count 150 - 400 k/uL 428 423 Abs Neut (ANC) 1.45 - 7.50 k/uL 3.41 5.03 Abs Lymph 1.00 - 4.00 k/uL 2.11 2.86 Vitamin D: Latest Ref Rng & Units 04/24/2021 02/09/2024 Vitamin D Vitamin D 25 Hydroxy 31.0 - 80.0 ng/mL 20.9 18.0 LFT: Latest Ref Rng & Units 02/09/2024 04/02/2024 CMP Sodium 136 - 144 mmol/L 138 Potassium 3.7 - 5.1 mmol/L 4.5 Chloride 98 - 107 mmol/L 105 CO2 22 - 30 mmol/L 20 Glucose 74 - 99 mg/dL 95 BUN 7 - 21 mg/dL 9 10 Creatinine 0.58 - 0.96 mg/dL 0.60 0.58 Calcium 8.5 - 10.2 mg/dL 10.1 AST 13 - 35 U/L 31 28 ALT 7 - 38 U/L 30 34 Hepatic Function: Creatinine: Latest Ref Rng & Units 02/09/2024 04/02/2024 Creatinine Creatinine 0.58 - 0.96 mg/dL 0.60 0.58 ESR/CRP: Latest Ref Rng & Units 02/09/2024 04/02/2024 ESR, WSR WSR 0 - 20 mm/hr 2 8 Latest Ref Rng & Units 02/09/2024 04/02/2024 CRP CRP <0.9 mg/dL <0.3 <0.3 Uric Acid: None on file in the last 6 months Open Standing (Multiple Instance) Lab Orders Remain Interval Expires Ordered Last Rel. ALT/SGPT [SQALT] 1/4 Every 3 months 07/05/24 07/06/23 02/09/24 Auth. provider: Silvia Tucker MD Assoc. diagnoses: SO-JILLIAN (systemic onset juvenile idiopathic arthritis) (HCC), Periodic fever syndrome (HCC) AST/SGOT BLD [SQAST] 1/4 Every 3 months 07/05/24 07/06/23 02/09/24 Auth. provider: Silvia Tucker MD Assoc. diagnoses: SO-JILLIAN (systemic onset juvenile idiopathic arthritis) (HCC), Periodic fever syndrome (HCC) BUN BLOOD [SQBUN] 2/4 Every 3 months 07/05/24 07/06/23 02/09/24 Auth. provider: Silvia Tucker MD Assoc. diagnoses: SO-JILLIAN (systemic onset juvenile idiopathic arthritis) (HCC), Periodic fever syndrome (HCC) CBC + DIFF [SQCBCDIF] 2/4 Every 3 months 07/05/24 07/06/23 02/09/24 Auth. provider: Silvia Tucker MD Assoc. diagnoses: SO-JILLIAN (systemic onset juvenile idiopathic arthritis) (HCC), Periodic fever syndrome (HCC) SED RATE WESTERGREN [SQWSR] 2/4 Every 3 months 07/05/24 07/06/23 02/09/24 Auth. provider: Silvia Tucker MD Assoc. diagnoses: SO-JILLIAN (systemic onset juvenile idiopathic arthritis) (HCC), Periodic fever syndrome (HCC) C-REACTIVE PROTEIN (CRP) [SQCRP] 2/4 Every 3 months 07/05/24 07/06/23 02/09/24 Auth. provider: Silvia Tucker MD Assoc. diagnoses: SO-JILLIAN (systemic onset juvenile idiopathic arthritis) (HCC), Periodic fever syndrome (HCC) CREATININE BLD [SQCRET] 3/4 Every 3 months 07/05/24 07/06/23 02/09/24 Auth. provider: Silvia Tucker MD Assoc. diagnoses: SO-JILLIAN (systemic onset juvenile idiopathic arthritis) (HCC), Periodic fever syndrome (HCC) Open Future (Single Instance) Lab Orders Expected Expires Ordered ALANINE AMINOTRANSFERASE / SGPT [SQALT] 07/23/24 10/22/24 03/12/24 Auth. provider: Silvia Tucker MD Assoc. diagnoses: SO-JILLIAN (systemic onset juvenile idiopathic arthritis) (HCC) ASPARTATE AMINOTRANSFERASE/SGOT [SQAST] 07/23/24 10/22/24 03/12/24 Auth. provider: Silvia Tucker MD Assoc. diagnoses: SO-JILLIAN (systemic onset juvenile idiopathic arthritis) (HCC) C-REACTIVE PROTEIN [SQCRP] 07/23/24 10/22/24 03/12/24 Auth. provider: Silvia Tucker MD Assoc. diagnoses: SO-JILLIAN (systemic onset juvenile idiopathic arthritis) (HCC) COMPLETE BLOOD COUNT AND DIFFERENTIAL [SQCBCDIF] 07/23/24 10/22/24 03/12/24 Auth. provider: Silvia Tucker MD Assoc. diagnoses: SO-JILLIAN (systemic onset juvenile idiopathic arthritis) (HCC) SEDIMENTATION RATE, WESTERGREN [SQWSR] 07/23/24 10/22/24 03/12/24 Auth. provider: Silvia Tucker MD Assoc. diagnoses: SO-JILLIAN (systemic onset juvenile idiopathic arthritis) (HCC) CREATININE BLD [SQCRET] 07/23/24 10/22/24 03/12/24 Auth. provider: Silvia Tucker MD Assoc. diagnoses: SO-JILLIAN (systemic onset juvenile idiopathic arthritis) (HCC) UREA NITROGEN [SQBUN] 07/23/24 10/22/24 03/12/24 Auth. provider: Silvia Tucker MD Assoc. diagnoses: SO-JILLIAN (systemic onset juvenile idiopathic arthritis) (HCC) VITAMIN D 25 HYDROXY [SQVITD] 07/23/24 10/22/24 03/12/24 Auth. provider: Silvia Tucker MD Assoc. diagnoses: SO-JILLIAN (systemic onset juvenile idiopathic arthritis) ([facility]) Lorie Nazario RN [facility] 04-18-2024 Miscellaneous Notes Images from the original note were not included. Most recent Rheumatology visit: 03/12/2024 (with Silvia Tucker) Last Bone Density on file: None on file Rheumatology Care Team: None on file Recent Office Visits - This Specialty 03/12/2024 SO-JILLIAN (systemic onset juvenile idiopathic arthritis) ([facility]) Rheumatology Silvia Tucker MD 09/09/2023 SO-JILLIAN (systemic onset juvenile idiopathic arthritis) ([facility]) Rheumatology Silvia Tucker MD 03/24/2023 Periodic fever syndrome ([facility]) Rheumatology/Pulmonary Silvia Tucker MD Upcoming Rheumatology Appointments - Next 365 Days Visit Type Date Time Department [facility] MEDICAL 07/30/2024 10:00 AM [facility] INDP CBC: Latest Ref Rng & Units 02/09/2024 04/02/2024 CBC WBC 3.70 - 11.00 k/uL 6.19 8.77 Hemoglobin 11.5 - 15.5 g/dL 14.2 13.6 Hematocrit 36.0 - 46.0 % 42.1 41.7 Platelet Count 150 - 400 k/uL 428 423 Abs Neut (ANC) 1.45 - 7.50 k/uL 3.41 5.03 Abs Lymph 1.00 - 4.00 k/uL 2.11 2.86 Vitamin D: Latest Ref Rng & Units 04/24/2021 02/09/2024 Vitamin D Vitamin D 25 Hydroxy 31.0 - 80.0 ng/mL 20.9 18.0 LFT: Latest Ref Rng & Units 02/09/2024 04/02/2024 CMP Sodium 136 - 144 mmol/L 138 Potassium 3.7 - 5.1 mmol/L 4.5 Chloride 98 - 107 mmol/L 105 CO2 22 - 30 mmol/L 20 Glucose 74 - 99 mg/dL 95 BUN 7 - 21 mg/dL 9 10 Creatinine 0.58 - 0.96 mg/dL 0.60 0.58 Calcium 8.5 - 10.2 mg/dL 10.1 AST 13 - 35 U/L 31 28 ALT 7 - 38 U/L 30 34 Hepatic Function: Creatinine: Latest Ref Rng & Units 02/09/2024 04/02/2024 Creatinine Creatinine 0.58 - 0.96 mg/dL 0.60 0.58 ESR/CRP: Latest Ref Rng & Units 02/09/2024 04/02/2024 ESR, WSR WSR 0 - 20 mm/hr 2 8 Latest Ref Rng & Units 02/09/2024 04/02/2024 CRP CRP <0.9 mg/dL <0.3 <0.3 Uric Acid: None on file in the last 6 months Open Standing (Multiple Instance) Lab Orders Remain Interval Expires Ordered Last Rel. ALT/SGPT [SQALT] 1/4 Every 3 months 07/05/24 07/06/23 02/09/24 Auth. provider: Silvia Tucker MD Assoc. diagnoses: SO-JILLIAN (systemic onset juvenile idiopathic arthritis) (HCC), Periodic fever syndrome (HCC) AST/SGOT BLD [SQAST] 1/4 Every 3 months 07/05/24 07/06/23 02/09/24 Auth. provider: Silvia Tucker MD Assoc. diagnoses: SO-JILLIAN (systemic onset juvenile idiopathic arthritis) (HCC), Periodic fever syndrome (HCC) BUN BLOOD [SQBUN] 2/4 Every 3 months 07/05/24 07/06/23 02/09/24 Auth. provider: Silvia Tucker MD Assoc. diagnoses: SO-JILLIAN (systemic onset juvenile idiopathic arthritis) (HCC), Periodic fever syndrome (HCC) CBC + DIFF [SQCBCDIF] 2/4 Every 3 months 07/05/24 07/06/23 02/09/24 Auth. provider: Silvia Tucker MD Assoc. diagnoses: SO-JILLIAN (systemic onset juvenile idiopathic arthritis) (HCC), Periodic fever syndrome (HCC) SED RATE WESTERGREN [SQWSR] 2/4 Every 3 months 11/07/06/23 02/09/24 Auth. provider: Silvia Tucker MD Assoc. diagnoses: SO-JILLIAN (systemic onset juvenile idiopathic arthritis) (HCC), Periodic fever syndrome (HCC) C-REACTIVE PROTEIN (CRP) [SQCRP] 2/4 Every 3 months 07/05/24 07/06/23 02/09/24 Auth. provider: Silvia Tucker MD Assoc. diagnoses: SO-JILLIAN (systemic onset juvenile idiopathic arthritis) (HCC), Periodic fever syndrome (HCC) CREATININE BLD [SQCRET] 3/4 Every 3 months 07/05/24 07/06/23 02/09/24 Auth. provider: Silvia Tucker MD Assoc. diagnoses: SO-JILLIAN (systemic onset juvenile idiopathic arthritis) (HCC), Periodic fever syndrome (HCC) Open Future (Single Instance) Lab Orders Expected Expires Ordered ALANINE AMINOTRANSFERASE / SGPT [SQALT] 07/23/24 10/22/24 03/12/24 Auth. provider: Silvia Tucker MD Assoc. diagnoses: SO-JILLIAN (systemic onset juvenile idiopathic arthritis) (HCC) ASPARTATE AMINOTRANSFERASE/SGOT [SQAST] 07/23/24 10/22/24 03/12/24 Auth. provider: Silvia Tucker MD Assoc. diagnoses: SO-JILLIAN (systemic onset juvenile idiopathic arthritis) (HCC) C-REACTIVE PROTEIN [SQCRP] 07/23/24 10/22/24 03/12/24 Auth. provider: Silvia Tucker MD Assoc. diagnoses: SO-JILLIAN (systemic onset juvenile idiopathic arthritis) (HCC) COMPLETE BLOOD COUNT AND DIFFERENTIAL [SQCBCDIF] 07/23/24 10/22/24 03/12/24 Auth. provider: Silvia Tucker MD Assoc. diagnoses: SO-JILLIAN (systemic onset juvenile idiopathic arthritis) (HCC) SEDIMENTATION RATE, WESTERGREN [SQWSR] 07/23/24 10/22/24 03/12/24 Auth. provider: Silvia Tucker MD Assoc. diagnoses: SO-JILLIAN (systemic onset juvenile idiopathic arthritis) (HCC) CREATININE BLD [SQCRET] 07/23/24 10/22/2403/12/24 Auth. provider: Silvia Tucker MD Assoc. diagnoses: SO-JILLIAN (systemic onset juvenile idiopathic arthritis) (HCC) UREA NITROGEN [SQBUN] 07/23/24 10/22/24 03/12/24 Auth. provider: Silvia Tucker MD Assoc. diagnoses: SO-JILLIAN (systemic onset juvenile idiopathic arthritis) (HCC) VITAMIN D 25 HYDROXY [SQVITD] 07/23/24 10/22/24 03/12/24 Auth. provider: Silvia Tucker MD Assoc. diagnoses: SO-JILLIAN (systemic onset juvenile idiopathic arthritis) ([facility]) Lorie Nazario RN THIS IS NOT A DUPLICATE Patient no longer using [facility]. documented in this encounter [facility] 04-17-2024 Telephone encounter Note THIS IS NOT A DUPLICATE Patient no longer using [facility]. [facility] 04-03-2024 Telephone encounter Note Pt is requesting to transfer care to you. It appears was seeing another provider from [facility]. Is this patient an appropriate fit and do we need to have the provider change the referral to psychology? Please advise. [facility] 04-03-2024 Miscellaneous Notes Pt is requesting to transfer care to you. It appears was seeing another provider from [facility]. Is this patient an appropriate fit and do we need to have the provider change the referral to psychology? Please advise. documented in this encounter [facility] 04-03-2024 Note [facility] 04-03-2024 History of Present illness Narrative SUBJECTIVE: There are no preventive care reminders to display for this patient. HPI Liliam Thompson is a 33 year old female. PMH significant for ACTIVE PROBLEM LIST Inappropriate Sinus Node Tachycardia (Hcc) Fibromyalgia Depression Anxiety Sprain of Lumbar Region Neurocirculatory Asthenia Vitamin D Deficiency Vomiting Nausea Obesity, Class Iii, Bmi 40-49.9 (Morbid Obesity) (Hcc) Numbness and Tingling Tremor of Unknown Origin Double Vision Maxwell (Obstructive Sleep Apnea) Migraine With Aura Muscle Twitching Bulimia Eating Disorder Thrombocytosis Recurrent Fever Periodic Fever Syndrome (Hcc) Pain in Joint, Multiple Sites Chronic Midline Low Back Pain Without Sciatica Immunosuppression (Hcc) Acute Left Ankle Pain Left Ankle Strain, Sequela Loose Body in Left Ankle Closed Nondisplaced Fracture of Navicular Bone of Left Foot Sprain of Anterior Talofibular Ligament of Left Ankle Sprain of Tibiofibular Ligament of Left Ankle Chronic Pain of Left Ankle Pots (Postural Orthostatic Tachycardia Syndrome) Panic Attacks Ptsd (Post-Traumatic Stress Disorder) Panic Disorder With Agoraphobia She notes that currently taking supplemental vitamin D. Has done well with the weekly dose in the past. Requests this. Notes interested in losing weight. Would like to see dietitian. Interested in metformin for weight loss if appropriate. Noted she wanted to see Dr. Lucien Monroy but could not get an appointment. History of bulimia. Notes currently trying to eat a healthy diet and stay active. 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 May be getting prednisone for treatment in addition to current regimen. Has switched to part-time work and currently on Medicaid. Review of Systems Constitutional: Negative. Musculoskeletal: Positive for arthralgias. Objective BP 138/83 Pulse 102 Resp 16 Wt 122.1 kg (269 lb 2.9 oz) LMP 12/31/2021 BMI 51.71 kg/m Physical Exam Vitals and nursing note reviewed. Constitutional: Appearance: Normal appearance. HENT: Head: Normocephalic and atraumatic. Eyes: Conjunctiva/sclera: Conjunctivae normal. Neck: Thyroid: No thyromegaly. Vascular: Normal carotid pulses. No JVD. Cardiovascular: Rate and Rhythm: Regular rhythm. Tachycardia present. Pulses: Carotid pulses are 2+ on the right side and 2+ on the left side. Radial pulses are 2+ on the right side and 2+ on the left side. Heart sounds: Normal heart sounds. Pulmonary: Effort: Pulmonary effort is normal. Breath sounds: Normal breath sounds. Abdominal: General: Bowel sounds are normal. Palpations: Abdomen is soft. Musculoskeletal: Left shoulder: Tenderness present. Decreased range of motion. Right lower leg: No edema. Left lower leg: No edema. Skin: General: Skin is warm and dry. Neurological: General: No focal deficit present. Mental Status: She is alert and oriented to person, place, and time. ALLERGIES Allergen Reactions Latex, Natural Rubb* Hives Banana GI Upset, Itching Gi issues and tingling of tongue and tightness in throat Latex Hives Seasonal Allergies Unknown GRASSES, WEEDS AND RAGWEED VERIFIED BY SKIN TESTING Medication Norethindrone, Contraceptive, 0.35 mg tablet Take 1 tablet by mouth once daily. EPINEPHrine (EPIPEN 2-ISIDRO) 0.3 mg/0.3 mL auto-injector Inject 0.3 mL intramuscularly as needed. 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 2.5 mg at onset of headache, may repeat in 4 hours if needed albuterol HFA (PROAIR HFA) 90 mcg/actuation inhaler Inhale 2 Puffs as instructed every 4 hours as needed. canakinumab, PF, (ILARIS, PF,) 150 mg/mL injection INJECT 150 MG (1 ML) UNDER THE SKIN EVERY 4 WEEKS baclofen 10 mg tablet Take 1 tablet by mouth three times a day as needed. fluvoxaMINE (LUVOX) 100 mg tablet Take 2 tablets by mouth once daily. atenolol (TENORMIN) 25 mg tablet Take 1 tablet by mouth two times a day as needed. FLUoxetine (PROZAC) 10 mg capsule Take 1 capsule by mouth once daily. Can go up to 20 mg after 1 month if needed montelukast (SINGULAIR) 10 mg tablet Take 1 tablet by mouth daily at bedtime. zonisamide (ZONEGRAN) 100 mg capsule Take 3-4 caps at bedtime. propranolol (INDERAL) 10 mg tablet Take 1-2 tablets by mouth twice daily as needed (palpitations or tremors). levonorgestrel (MIRENA) 20 mcg/24 hours (7 yrs) 52 mg IUD 1 Each by INTRAUTERINE route as directed. levocetirizine 5 mg tablet Take 5 mg by mouth as needed. azelastine (ASTELIN) 0.1% nasal spray Use 2 Sprays in each nostril twice daily as needed. (Patient taking differently: Use 2 Sprays in each nostril once daily.) triamcinolone acetonide (NASACORT) 55 mcg nasal inhaler Use 2 Sprays in the nose once daily. colchicine 0.6 mg tablet Take 1 tablet by mouth twice daily. PAST MEDICAL HISTORY No date: Anxiety Comment: Angeli Constantino No date: Asthmatic bronchitis Comment: recurrent episodes since pneumonia fall and winter of 2011 No date: Depression Comment: Angeli Constantino No date: Epigastric abdominal pain No date: Fibromyalgia Comment: Dr. Terrazas No date: Inflammatory polyarthritis ([facility]) No date: Joint pain Comment: Gallery Or Museum Curator- Dr. Kelly @[facility] No date: Migraine with aura Comment: visual aura; diagnosed with complex migraines No date: Nausea 03/10/2016: MAXWELL (obstructive sleep apnea) age 1 1/2: PMH - PAST MEDICAL HISTORY OF Comment: febrile seizures-with varicella 6-7 months: PMH - PAST MEDICAL HISTORY OF Comment: dislocated elbow No date: PMH - PAST MEDICAL HISTORY OF Comment: menarche age 14 years 1998: PMH - PAST MEDICAL HISTORY OF Comment: normal color vision 04/23/2018: POTS (postural orthostatic tachycardia syndrome) No date: Rectal bleeding No date: Sinus arrhythmia No date: Snoring 06/2014: Suicide attempt by acetaminophen overdose ([facility]) No date: Syncope No date: Vomiting Social History Tobacco Use Smoking status: Never Smokeless tobacco: Never Tobacco comments: Father and Mother smoked in home. Stopped 03/2013. Vaping Use Vaping status: Never Used Substance Use Topics Alcohol use: Yes Comment: occiasionally Drug use: No ASSESSMENT/PLAN: 1. Vitamin D deficiency - ICD9: 268.9, ICD10: E55.9 (primary diagnosis) - ERGOCALCIFEROL (VITAMIN D2) 1,250 MCG (50,000 UNIT) CAPSULE - CONSULT TO PSYCHIATRY 2. Class 3 severe obesity due to excess calories with body mass index (BMI) of 50.0 to 59.9 in adult, unspecified whether serious comorbidity present (HCC) - ICD9: 278.01, V85.43, ICD10: E66.01, Z68.43 Stable - Behavioral intervention, -previously consider Dr. Tomasa Monroy - Pharmacological intervention - would uriel to try metformin can titrate up if tolerating - Medical nutrition therapy with dietitian, - CONSULT TO NUTRITION THERAPY - METFORMIN ER 500 MG TABLET,EXTENDED RELEASE 24 HR - CONSULT TO PSYCHIATRY 3 mo follow up Genaro Morales APRN.SPORTS TEACHER 6 mo follow up Faustina Carcamo MD Schedule appt with plywood patcher and Dr. Tomasa Morales APRN.CNS Medical Decision Making: Problems: Moderate: 2+ stable chronic illnesses Data: Unique test result(s) reviewed: 3+ Risk: Moderate: Drug management Medical Decision Making Level: 4 - Moderate documented in this encounter [facility] 04-02-2024 History of Present illness Narrative Radiology Service Progress Note PATIENT NAME: Liliam Thompson DATE OF SERVICE: April 02, 2024 TIME: 1:26 PM PATIENT IDENTITY VERIFICATION COMPLETED USING TWO (2) IDENTIFIERS: Name and Date of confirmed by patient verbally. FALL SCREENING: Has the patient had 2 falls in the last year or 1 fall with injury or currently using an Ambulatory Assistive Device (Walker, Cane, Wheelchair, Crutches, etc.)? No PATIENT GENDER DATA: Female. status: : No status: NO. PATIENT RELEVANT IMPLANT DATA REVIEWED: Yes PATIENT PRESENTS WITH AN IMPLANTABLE OR ATTACHED DUST BOX WORKER: No RADIOLOGY DEPARTMENT: General X-ray: Exam(s) Completed: Chest X-Ray PERIPHERAL IV DATA: Not applicable SIGNED BY: RT Jerry(R) April 02, 2024 1:26 PM documented in this encounter [facility] 04-02-2024 Note [facility] 04-02-2024 Telephone encounter Note I spoke with Bina. She reports her last fever was yesterday evening (she's been getting fevers every evening for about 1 week now). Highest temp was 101F last week. Her left knee is still painful, swelling has gone down a bit. Currently rates knee pain 4/10 with movement, no redness, no current warmth to skin. Able to bend it and bear weight on it. Still painful to inhale deeply. Taking OTC ibuprofen 800 mg BID. Helps a little. Asking for guidance on what next steps should be regarding tx. Please advise. [facility] 04-02-2024 Miscellaneous Notes I spoke with Bina. She reports her last fever was yesterday evening (she's been getting fevers every evening for about 1 week now). Highest temp was 101F last week. Her left knee is still painful, swelling has gone down a bit. Currently rates knee pain 4/10 with movement, no redness, no current warmth to skin. Able to bend it and bear weight on it. Still painful to inhale deeply. Taking OTC ibuprofen 800 mg BID. Helps a little. Asking for guidance on what next steps should be regarding tx. Please advise. documented in this encounter [facility] 03-29-2024 Telephone encounter Note Approved until 03/27/2025 [facility] 03-29-2024 Miscellaneous Notes Approved until 03/27/2025 Form and up dated LAVONNE faxed. Pt has a new insurance and will need a new PA on the [employer], PA started for [employer]. documented in this encounter [facility] 03-29-2024 Instructions Meryl Zheng RN - 03/29/2024 10:04 AM EDT Gardasil Gardasil is a vaccine to protect against Human Papillomavirus (HPV) types 6, 11, 16, 18, 31,33,45, 52, 58. These viruses cause cancer and precancerous lesions on the cervix (opening between vagina and uterus), in the vagina and on the vulva (skin around the outside of the vagina) as well as genital warts. The vaccine cannot cause these diseases and cannot treat them if already present. Gardasil works best if given before contact with HPV. Most people are exposed to HPV soon after starting sexual activity. The vaccine is recommended between the ages of 9 and 45. Gardasil does not protect against all strains of HPV. Women who receive the vaccine still need to have regular pelvic exams and cervical cancer screening with the pap smear. You should ask your doctor if Gardasil is right for you if you have a weakened immune system, a bleeding disorder, plan to become soon or have a current illness causing fever. Gardasil is not recommended for women. You should be sure your doctor is aware of any allergies you have and all medications and herbal supplements you take. Gardasil is given to those ages 9-14 in 2 doses at 0 and 8 months. In ages 15-45, three injections are given at 0,2,6 months. Common side effects include pain, redness, itching and swelling at the injection site, nausea, fever, dizziness and fainting. Rare but potentially serious reactions have been reported. These include allergic reaction, swollen glands, joint and muscle pain, weakness and Guillain-[place] syndrome. documented in this encounter [facility] 03-29-2024 Note [facility] 03-29-2024 History of Present illness Narrative Patient identified by name and date of . Liliam Thompson is here for her HPV 9 vaccination, Patient ?No Gardasil injection was given without incident. See immunizations for details of immunizations administered today. VIS sheet provided: Yes Per RR-HPV vaccine x 1 as didn't have guardasil 9, d/w her it would be off label and she states understanding but is reasonable since she is on an immunosuppressant Provider CP was present in office at time of injection. Meryl Zheng RN documented in this encounter [facility] 03-29-2024 Telephone encounter Note Can you please file pending HPV order. The incorrect order was filed. Thank you. Qian Estevez RN [facility] 03-29-2024 Instructions Qian Estevez RN - 03/29/2024 9:55 AM EDT Gardasil Gardasil is a vaccine to protect against Human Papillomavirus (HPV) types 6, 11, 16, 18, 31,33,45, 52, 58. These viruses cause cancer and precancerous lesions on the cervix (opening between vagina and uterus), in the vagina and on the vulva (skin around the outside of the vagina) as well as genital warts. The vaccine cannot cause these diseases and cannot treat them if already present. Gardasil works best if given before contact with HPV. Most people are exposed to HPV soon after starting sexual activity. The vaccine is recommended between the ages of 9 and 45. Gardasil does not protect against all strains of HPV. Women who receive the vaccine still need to have regular pelvic exams and cervical cancer screening with the pap smear. You should ask your doctor if Gardasil is right for you if you have a weakened immune system, a bleeding disorder, plan to become soon or have a current illness causing fever. Gardasil is not recommended for women. You should be sure your doctor is aware of any allergies you have and all medications and herbal supplements you take. Gardasil is given to those ages 9-14 in 2 doses at 0 and 8 months. In ages 15-45, three injections are given at 0,2,6 months. Common side effects include pain, redness, itching and swelling at the injection site, nausea, fever, dizziness and fainting. Rare but potentially serious reactions have been reported. These include allergic reaction, swollen glands, joint and muscle pain, weakness and Guillain-[place] syndrome. documented in this encounter [facility] 03-29-2024 Miscellaneous Notes Can you please file pending HPV order. The incorrect order was filed. Thank you. Qian Estevez RN documented in this encounter [facility] 03-28-2024 Telephone encounter Note Form and up dated LAVONNE faxed. [facility] 03-27-2024 Telephone encounter Note Pt has a new insurance and will need a new PA on the [employer], [facility] 03-19-2024 Telephone encounter Note PA started for [employer]. [facility] 03-15-2024 Instructions Shellie Bentley MA - 03/15/2024 9:12 AM EDT YOUR RECOVERY It may take a few weeks for your cervix to heal. While your cervix heals, you may have: - Vaginal bleeding (less than a normal menstrual period) - Mild cramping - A brown-black vaginal discharge (similar to coffee grounds) which is a result of the paste used to help stop bleeding from the procedure Do NOT put anything in the vagina for 1 week after your colposcopy if your doctor does a biopsy of your cervix. This includes sex, tampons, and douches. If you have any discomfort, you may take an over the counter pain medication (motrin, advil, ibuprofen, tylenol, etc). If this does not relieve your discomfort, contact your doctor's office for a prescription strength pain medication. It is okay to wear a sanitary pad until the discharge and spotting stops. RISKS Although problems seldom occur with colposcopy, there can be some complications. You may feel faint during and shortly after the procedure as well as have some bleeding and vaginal discharge after the procedure. There is also a risk of infection after the procedure. These complications are rare and can be easily treated. You should contact you doctor is you have any of the following: - Heavy bleeding (more than your normal period) - Bleeding with clots - Severe abdominal pain - Fever (more than 100.4F) - Foul smelling vaginal discharge RESULTS If a biopsy was taken, we will have the results of your biopsy in 1-2 weeks. If you do not hear the results of your biopsy after 2 weeks, please contact your physicians office for the results. Depending on the biopsy results, your doctor will determine your follow up plan which may include further testing or treatments. STAYING HEALTHY After the procedure, you will need to see your doctor for follow up visits during the year. At these visits your doctor will check the health of your cervix with a pap smear. After three normal pap smears, your doctor will allow you to return to having exams once a year. If you have another abnormal pap smear, you may need closer follow up for longer or you may need additional treatment. By making a few lifestyle changes after the procedure, you can help protect the health of your cervix: - Have regular pelvic exams and pap smears as ordered by your doctor. - Stop smoking as smoking increases your risk of developing a cancer of the cervix - If you have more than one sexual partner, limit your number of partners and use condoms to reduce your risks of STDs. If you have any additional questions, please contact your doctor's office. documented in this encounter [facility] 03-15-2024 Note [facility] 03-15-2024 History of Present illness Narrative Bina is a 33 year old Female who presents today for a colposcopy. The patient's last pap smear was Positive HPV from January 2024. Patient has a history of abnormal pap: Yes. The patient has had prior treatment: none. test: negative UNIVERSAL PROTOCOL / SAFETY CHECKLIST Procedure to be Performed: colposcopy with possible biopsies Sign In: A Moment of CARE was completed. Personnel directly involved with the procedure wore the appropriate PPE (Personal Protective Equipment). Patient/Surrogate Stated/Verified: PATIENT VERIFIED(optional for EMERGENT procedures): Patient name, Date of , Relevant allergies, and The intended procedure Time Out Communication: Intended patient and procedure match the source documents. Consent documented and matches the intended procedure. No implant(s) inserted. Sign Out: SIGN OUT (optional for EMERGENT procedures): All specimen containers correctly labeled. All instruments, equipment, possible retained foreign bodies accounted for. Post-procedure follow-up management communicated and Plan of Care Visit completed when applicable. Flora Jenikns M.D. PROCEDURE: EXTERNAL GENITALIA: Normal in appearance without lesions VAGINA: Normal in appearance without lesions CERVIX: Speculum placed in vagina and excellent visualization of cervix achieved. Cervix swabbed x 3 with 3% acetic acid solution. Cervix grossly normal. Squamocolumnar junction visualized. acetowhite changes noted at 12 oclock and No other acetowhite changes, punctations, mosaicism or atypical vasculature noted. BIOPSY: Done at 12:00 ECC: not done HEMOSTASIS: Obtained with silver nitrate Procedure Summary: Patient tolerated procedure well and colposcopy was adequate. ASSESSMENT: HPV effect PLAN: Specimens labeled and sent to Pathology. Will notify patient of results in 1-2 weeks. Post-procedure instructions reviewed and written material given to the patient. considering repeat HPV vaccine x 1 as didn't have guardasil 9, d/w her it would be off label and she states understanding but is reasonable since she is on an immunosuppressant If indicated, lesion by colpo is amenable to office LEEP as lesion is small. but would need long narrow speculum or do in OR Flora Jenkins MD documented in this encounter [facility] 03-12-2024 Telephone encounter Note [place] scheduled by PSS. Maile Stacy RN [facility] 03-12-2024 Miscellaneous Notes [place] scheduled by PSS. Maile Stacy RN Patient notified and voiced understanding of results. Patient needs to be financially cleared before scheduling. Message sent to financial counselor. Patient aware that we will call her back to schedule once cleared. Janett Heard RN Pap normal but HPV still positive, she will need a colp. Order filed. Nani Alejandre APRN.LIZZIE documented in this encounter [facility] 03-12-2024 Telephone encounter Note Patient notified and voiced understanding of results. Patient needs to be financially cleared before scheduling. Message sent to financial counselor. Patient aware that we will call her back to schedule once cleared. Janett Heard RN [facility] 03-12-2024 Telephone encounter Note Pap normal but HPV still positive, she will need a colp. Order filed. Nani Alejandre APRN.LIZZIE [facility] 03-12-2024 History of Present illness Narrative MD Liliam Lobato March 08, 2024 Referring Provider: PCP: Faustina Carcamo MD Chief Complaint: Follow up Background Rheumatologic History: Previously seen by multiple providers in our division From Dr. Lucero - Started having fevers in [place]/Senior year of high school. [age]yo Was later diagnosed with inflammatory arthritis. [id number] Was treated with hydroxychloroquine + methotrexate While on therapy, she did not have fevers, but did have feeling general malaise June 2013- stopped methotrexate and in Summer had recurrence of symptoms. She had symptoms of fevers, dizziness, nasuea, wobbly, joint pain. Fevers initially started at age 16-17. They would get as high as 101.5 max but are generally closer to 100.5 range. Fevers on average last around 12 hours and would start in the evening. Now, Her symptoms are more continuous and persist throughout the day. Her symptoms would last for approx 1 week at a time before abating on their own and would recur every few weeks. Fevers improve with prednisone. Fevers seem to be seasonal- do not occur in Winter. Has continued to have symptoms of fevers. She has fevers to 101F. Fevers having improved in severity but have become more frequent. Symptoms improve with colchicine and steroids. She has associated night sweats. Has itchiness of the eyes. This has been worse more recently. Continues to have chest pain- has history of costochondritis- has some sprading to side of chest, when she tries to sleep at ngt she has difficulty laying down. If she lays on the side this seems to make it worse. Has some tenderness over the sternum as well. This slightly improves with ilaris. Pain worsens with deep breathing. She has some pain in the back as well. Joint pain has gradually gotten worse- Right now her biggest issue is migratory pain. Her knees will hurt for a couple of weeks, then progress to her hands. For awhile would have swellign of the knees. Mobic seems to help symptoms. Now hands are worse. Pain is achign type pain, particularly the right thumb is more painful, especially in the morning. The areas that get more sweollen are the wrist and knees. Current Rheum treatment: -Canakinumab 150mg SQ monthly: 09/2019 - current -Colchicine 0.6mg daily: 03/2018 - current - Prednisone prn for flares as well. (20mg x 3, then decrease by 5 mg theresa 3 days until off) Past treatments: Past Rheumatological Treatment History -Methtotrexate: 2009 - Jun 2013 -Hydroxychloroquine: 2009 - 2012 -Prednisone dose packs intermittent - 6 times/year (20mg tapered down) -IM steroids [id number] q3-4 months -Prednisone 2012 - 6 week long tapers - q 2-3 months -Prednisone 2012 - 2017 - q 3-4 months -Prednisone - last Jul 2020 - 20mg taper by 5mg every 3 days -Anakinra: 07/2018 - 08/2019 (D/C due to ineffectiveness, recurrent flares and injection site reactions) Plan at [facility]: Assessment and Plan: 30 year old female is evaluated in the Rheumatology Clinic for an undifferentiated periodic fever syndrome. 1. Periodic fever syndrome (HCC) - ICD9: 277.31, ICD10: M04.1 -Chronic intermittent fevers since age 18 with migrating arthralgias (initially diagnosed as inflammatory arthritis), costochondritis, rashes, sore throat, with persistently elevated inflammatory markers. -Unclear etiology - previously evaluated by hematology and ID with no e/o malignancy or infection. -No genetic testing done for periodic fever as denied by insurance -Negative work up for other autoimmune disease other than low titer positive MILLI -Dramatic response to IL1 inhibitors (Canakinumab better than Anakinra), colchicine, and prednisone PRN -Continue current regimen as above -Check labs today and when she has a flare 2. Chronic bilateral low back pain without sciatica - ICD9: 724.2, 338.29, ICD10: M54.5, G89.29 -Patient has some features of an inflammatory back pain as well as some entheseal findings. She has a strong family history of psoriasis and an indeterminate HLA B27 -Normal SI joint imaging previously however may consider a repeat MRI in the future. Discussed again today but deferred -Continue Meloxicam as needed -Recommend physical therapy 3. Encounter for screening for osteoporosis - ICD9: V82.81, ICD10: Z13.820 -Prior mcc steroid use along with history of osteoporosis and fractures in mother -No personal history of fractures - DXA-AXIAL SKELETON 4. Immunosuppression (HCC) - ICD9: 279.9, ICD10: D84.9 -Patient is on immunomodulatory therapy and requires regular monitoring of blood work -Respective labs have been ordered and patient understands that medications cannot be safely prescribed without reviewing the labs. I first saw her 06/12/21 She has been on Ilaris and colchicine 0.6 mg since September 2019. Since then, she has had 3 episodes of significant flares that were aborted by short course of steroids. She also complains of intermittent low-grade fever, oral ulcers and joint pain. No injection site reaction with Ilaris. I increased the dose of her colchicine to twice daily F/U 09/25/21 Overall, she is doing better with colchicine twice daily as this is her only flare so far. I would continue the current combination of Ilaris and colchicine twice daily. F/U 03/24/22 In a flare right now. I give her a short course of low-dose steroid to help aborting the flare. If this does not work or flares becomes more frequent, I will consider increasing the dose of her Ilaris to 300 mg. F/U 12/03/22 She changed jobs and was unable to get ilaris covered for 2 months (June and July). Her periodic fever syndrome has been acting up since then. She has more fatigue, joint pain and swelling. She has been back on ilaris since August and has been doing better with less pain and fatigue. She has a typical flare once in October it was easily aborted by short course of prednisone. Labs ok Continue ilaris 150 mg along with colchicine. F/U 03/24/23 Unfortunately, her new insurance does not cover ilaris. She has not been on regular dose of Ilaris since spring and this results in a flare. She is now experiencing mouth sore, fatigue arthralgia, sore throat and fever again. I already put her on prednisone 5 mg daily before this appointment but it is not working. I think she is in a flare again which is not surprising given that she has not been on regular dose of Ilaris for a few months. Her insurance wants me to use Actemra instead which I disagree given that the evidence for systemic JILLIAN is much stronger for IL-1 inhibitor. In addition, it has been proven that Ilaris is working for Bina. I will do another appeal. However, I also discussed with her that we may need to start with Actemra if the second appeal is unsuccessful. In the meantime, I will try to abort this flare with a higher dose of prednisone. MyChart 03/29/23 My peer to peer appeal failed to overturn the denial. I prescribe Actemra instead. MyChart 07/06/23 Another flare. Another course of steroid. MyChart 07/27/23 Flare again. I asked her to stay on prednisone 10 mg daily. F/U 09/09/23 I do not think that Actemra is effective for her. She has had at least 2 flares since we started Actemra. She has been dependent on steroids to get her inflammation under control for the past few months. I think this is proof of Actemra failure She did better on Ilaris but it was denied by her new insurance as it is not the preferred medication. I did peer to peer review with them and they state that that she needs to fail Actemra first. Since we now have an evidence for Actemra failure, I will try to do another prior-authorization for Ilaris. Interim History: Patient returns for follow up, last visit 05/10/2018. Ilaris approved in Sep. She has been doing better since then. No overt flare. Unfortunately, she just quit her job and is in the process of application for Medicaid coverage. PAST MEDICAL HISTORY Diagnosis Date Anxiety Angeli Constantino Asthmatic bronchitis recurrent episodes since pneumonia fall and winter Depression Angeli Constantino Epigastric abdominal pain Fibromyalgia Dr. 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 @[facility] Migraine with aura visual aura; diagnosed with complex migraines Nausea MAXWELL (obstructive sleep apnea) 03/10/2016 PMH - PAST MEDICAL HISTORY OF age 1 1/2 febrile seizures-with varicella PMH - PAST MEDICAL HISTORY OF 6-7 months dislocated elbow PMH - PAST MEDICAL HISTORY OF menarche age 14 years PMH - PAST MEDICAL HISTORY OF 1998 normal color vision POTS (postural orthostatic tachycardia syndrome) 04/23/2018 Rectal bleeding Sinus arrhythmia Snoring Suicide attempt by acetaminophen overdose ([facility]) 06/2014 Syncope Vomiting PAST SURGICAL HISTORY Procedure Laterality Date COLONOSCOPY 05/15/2011 COLONOSCOPY FLX DX W/COLLJ SPEC WHEN PFRMD 07/03/2014 EGD TRANSORAL BIOPSY SINGLE/MULTIPLE 07/03/2014 MIRENA IUD 12/04/2021 Placed in office- Due for removal 11/2028 Social History Tobacco Use Smoking status: Never Smokeless tobacco: Never Tobacco comments: Father and Mother smoked in home. Stopped 03/2013. Vaping Use Vaping Use: Never used Substance Use Topics Alcohol use: Yes Comment: occiasionally Drug use: No Health Maintenance Cervical Cancer Screening due on 02/26/2024 Immunization History Administered Date(s) Administered COVID-19 original vaccine, age 12+ yr, monovalent ([employer] - ALANIZ TOP) 09/28/2021 COVID-19 original vaccine, age 12+ yr, monovalent (P[employer]ION[employer] - PURPLE TOP) 10/11/2020 11/01/2020 04/06/2021 COVID-19 vaccine, age 12+ yr, 2022- season (BabyFirstTV) 06/22/2023 COVID-19 vaccine, age 12+ yr, bivalent ([employer]) 07/28/2022 Haemophilus influenzae b (HbOC) vaccine, 4-dose series (HIBTITER) 1992 02/17/1993 04/15/1993 10/23/1994 TD Adult 04/02/2005 chicken pox (disease) 04/06/1994 diphtheria tetanus pertussis (DTP) vaccine 1992 02/17/1993 04/15/1993 diphtheria tetanus pertussis (DTaP) vaccine, pediatric (INFANRIX) 10/23/1994 03/17/1998 hepatitis A (HepA) vaccine, unspecified formulation 03/17/2011 hepatitis B (HepB) vaccine, 3-dose series, age 0 yr - 19 yr (ENGERIX B-PEDS, RECOMBIVAX HB-PEDS) 04/02/2005 05/31/2005 04/04/2006 human papillomavirus (HPV4) vaccine, quadrivalent (GARDASIL) 05/09/2007 06/14/2007 01/14/2010 influenza (IIV3) vaccine, age 3+ yr, trivalent (AFLURIA, FLULAVAL, FLUVIRIN, FLUZONE) 05/15/2014 04/06/2021 influenza (IIV4) vaccine, age 6 mo - 64 yr, quadrivalent (AFLURIA, FLULAVAL, FLUZONE) 06/25/2016 04/27/2017 06/19/2018 06/20/2019 influenza (IIV4) vaccine, age 6 mo - 64 yr, quadrivalent, PF (AFLURIA, FLUARIX, FLULAVAL, FLUZONE) 04/25/2020 04/06/2021 07/20/2022 influenza vaccine, unspecified formulation 06/19/2013 measles mumps rubella (MMR) vaccine (M-M-R II, PRIORIX) 02/02/1994 03/17/1998 meningococcal (MenACWY-D) vaccine, quadrivalent (MENACTRA) 04/15/2011 meningococcal (MenACYW) vaccine, quadrivalent, unspecified formulation 04/02/2005 pneumococcal polysaccharide (PPV23) vaccine, 23 valent (PNEUMOVAX 23) 05/15/2014 poliovirus (OPV) vaccine, trivalent, live, oral (ORIMUNE) 1992 02/17/1993 10/23/1994 03/17/1998 poliovirus vaccine, unspecified formulation 04/06/1994 tetanus diphtheria (Td) vaccine, adult, non-adsorbed 04/02/2005 tetanus diphtheria pertussis (Tdap) vaccine, age 7+ yr (ADACEL, BOOSTRIX) 03/17/2011 03/08/2019 tuberculin skin test (TST-PPD), purified protein derivative, intradermal 03/17/2011 varicella (ROXI) vaccine (VARIVAX) 04/06/1994 Current Outpatient Medications Medication Sig Dispense Refill Norethindrone, Contraceptive, 0.35 mg tablet Take 1 tablet by mouth once daily. 84 tablet 2 EPINEPHrine (EPIPEN 2-ISIDRO) 0.3 mg/0.3 mL auto-injector Inject 0.3 mL intramuscularly as needed. For allergic reaction.Seek emergent medical care immediately after use.Disp:1 2-pakw/program trainer 1 Each 2 naratriptan (AMERGE) 2.5 mg tablet Take 1 tablet (2.5 mg) by mouth as needed for migraine headache (see administration instructions). 2.5 mg at onset of headache, may repeat in 4 hours if needed 9 tablet 11 albuterol HFA (PROAIR HFA) 90 mcg/actuation inhaler Inhale 2 Puffs as instructed every 4 hours as needed. 18 g 1 canakinumab, PF, (ILARIS, PF,) 150 mg/mL injection INJECT 150 MG (1 ML) UNDER THE SKIN EVERY 4 WEEKS 1 mL 11 baclofen 10 mg tablet Take 1 tablet by mouth three times a day as needed. 90 tablet 2 fluvoxaMINE (LUVOX) 100 mg tablet Take 2 tablets by mouth once daily. 180 tablet 3 atenolol (TENORMIN) 25 mg tablet Take 1 tablet by mouth two times a day as needed. 60 tablet 5 FLUoxetine (PROZAC) 10 mg capsule Take 1 capsule by mouth once daily. Can go up to 20 mg after 1 month if needed 60 capsule 5 colchicine 0.6 mg tablet Take 1 tablet by mouth twice daily. 180 tablet 3 montelukast (SINGULAIR) 10 mg tablet Take 1 tablet by mouth daily at bedtime. 90 tablet 3 zonisamide (ZONEGRAN) 100 mg capsule Take 3-4 caps at bedtime. 120 capsule 11 propranolol (INDERAL) 10 mg tablet Take 1-2 tablets by mouth twice daily as needed (palpitations or tremors). 30 tablet 5 levonorgestrel (MIRENA) 20 mcg/24 hours (7 yrs) 52 mg IUD 1 Each by INTRAUTERINE route as directed. 1 Each 0 levocetirizine 5 mg tablet Take 5 mg by mouth as needed. azelastine (ASTELIN) 0.1% nasal spray Use 2 Sprays in each nostril twice daily as needed. (Patient taking differently: Use 2 Sprays in each nostril once daily.) 30 mL 11 triamcinolone acetonide (NASACORT) 55 mcg nasal inhaler Use 2 Sprays in the nose once daily. No current facility-administered medications for this visit. ALLERGIES Allergen Reactions Latex, Natural Rubb* Hives Banana GI Upset, Itching Gi issues and tingling of tongue and tightness in throat Latex Hives Seasonal Allergies Unknown GRASSES, WEEDS AND RAGWEED VERIFIED BY SKIN TESTING Physical Exam: [facility] 12/31/2021 General: Not pale, no jaundice, not in acute distress Head: Normocephalic, atraumatic Eyes: No redeye, no discharge ENT: No oral/nasal ulcer Neck: No lymphadenopathy Lungs: Normal breath sound, no adventitious sound Abdomen: Soft, not tender CV: Normal S1 S2, no murmur, no rub, pulse regular Skin: No rash, no malar rash, no telangiectasia, no pitting nail/onycholysis, no gross periungual telangiectasia Neuro: Grossly intact, motor power 5 all Joints LEFT Shoulder Full ROM, not tender Elbow Full ROM, not tender, not swollen Wrist Full ROM, not tender, not swollen 2nd MCP Not tender, not swollen 3rd MCP Not tender, not swollen 4th MCP Not tender, not swollen 5th MCP Not tender, not swollen 1st IP Not tender, not swollen 2nd PIP Not tender, not swollen 3rd PIP Not tender, not swollen 4th PIP Not tender, not swollen 5th PIP Not tender, not swollen 2nd DIP Not tender, not swollen 3rd DIP Not tender, not swollen 4th DIP Not tender, not swollen 5th DIP Not tender, not swollen Hip Full ROM Knee Full ROM, not tender, no effusion Ankle Not tender, not swollen Squeezing test Negative RIGHT Shoulder Full ROM, not tender Elbow Full ROM, not tender, not swollen Wrist Full ROM, not tender, not swollen 2nd MCP Not tender, not swollen 3rd MCP Not tender, not swollen 4th MCP Not tender, not swollen 5th MCP Not tender, not swollen 1st IP Not tender, not swollen 2nd PIP Not tender, not swollen 3rd PIP Not tender, not swollen 4th PIP Not tender, not swollen 5th PIP Not tender, not swollen 2nd DIP Not tender, not swollen 3rd DIP Not tender, not swollen 4th DIP Not tender, not swollen 5th DIP Not tender, not swollen Hip Full ROM Knee Full ROM, not tender, no effusion Ankle Not tender, not swollen Squeezing test Negative Impression: 1. Periodic fever syndrome -most consistent with systemic JILLIAN 2. High risk medication use 3. Vitamin D deficiency I think [place] is working well. Unfortunately, she just lost her private insurance and is in the process of applying for Medicaid. Will need a new PA for Medicare. She will let us know when it is approved. Labs are normal except for vitamin D deficiency. Advised her to take [id number] vitamin D supplement 800 to 1000 units/day. Recommendations/Plan Plan discussed with patient Return Visit: Follow up Jul 30 at 10 I spent a total of 40 minutes on the date of the service which included preparing to see the patient, bxbd-on-dayu patient care, completing clinical documentation, obtaining and/or reviewing separately obtained history, performing a medically appropriate examination, counseling and educating the patient/family/caregiver, and ordering medications, tests, or procedures. Silvia Tucker MD Referring Provider: PCP: Faustina Carcamo MD Answers submitted by the patient for this visit: Review of Systems Rheumatology (Submitted on 03/12/2024) Fever : Yes Recent unintentional weight change: No Eye pain: Yes Eye redness: Yes Vision Disturbance: Yes Eye Dryness: No Nosebleeds: Yes Sores in your mouth: Yes Trouble Swallowing: No Dry Mouth: No Chest pain: Yes Leg Swelling: No A cough: No Shortness of breath: No Pain with breathing: No Heartburn: No Abdominal pain: No Diarrhea: Yes Black tarry stools: No Blood in urine: No Pain or burning with urination: No Joint pain or stiffness: Yes Muscle weakness: No Muscle aches: Yes Joint swelling: No Morning Stiffness in Joints: Yes A rash: No Skin Color Changes: No Hair Loss: Yes Nail Changes: No Headaches: Yes Numbness: Yes Memory Loss: No Swollen Glands: Yes documented in this encounter [facility] 03-12-2024 Note [facility] 03-12-2024 Instructions Silvia Tucker MD - 03/12/2024 10:17 AM EDT Tell me WILI when Medicaid is approved Follow up Jul 30 at 10 Labs 1 week before documented in this encounter [facility] 02-27-2024 Note [facility] 02-27-2024 History of Present illness Narrative Bina is a 33 year old who presents for an annual gynecologic exam with complaints, pelvic pain. Patient reports irregular pelvic pain at times since placement of IUD 2 years ago. Seen in office and bedside US completed to verify placement a couple of months ago. IUD in correct place. Pain is off and on and nothing correlates to it. Pain is in lower pelvic area and not correlated to intercourse. She does not have periods and this is causing her anxiety. Thinking of having IUD removed and will take Micronor. Menses: no menses - Mirena IUD. Contraception: IUD HPV vaccine: Yes Last Pap: 03/03/2023 normal HPV: 03/02/2023 positive History of abnormal pap: No Last mammogram: never Sexually active: Yes History of STDS: None History of fibroids: No History of ovarian cyst: No History of endometriosis: No History of PCOS: No Pain with intercourse: No Postcoital bleeding: No OB History T0 L0 SAB0 IAB0 Ectopic0 Multiple0 Live Births0 [employer] History LMP: 12/31/2021, IUD Age at Menarche: Age at First : Age at Menopause: Roof [employer] History Comments: Sexual Activity: Yes; Male; mirena inserted 11/2021 Contraception: I.U.D., Condom PAST MEDICAL HISTORY Diagnosis Date Anxiety Angeli Constantino Asthmatic bronchitis recurrent episodes since pneumonia fall and winter Depression Angeli Constantino Epigastric abdominal pain Fibromyalgia Dr. 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 @[facility] Migraine with aura visual aura; diagnosed with complex migraines Nausea MAXWELL (obstructive sleep apnea) 03/10/2016 PMH - PAST MEDICAL HISTORY OF age 1 1/2 febrile seizures-with varicella PMH - PAST MEDICAL HISTORY OF 6-7 months dislocated elbow PMH - PAST MEDICAL HISTORY OF menarche age 14 years PMH - PAST MEDICAL HISTORY OF 1998 normal color vision POTS (postural orthostatic tachycardia syndrome) 04/23/2018 Rectal bleeding Sinus arrhythmia Snoring Suicide attempt by acetaminophen overdose ([facility]) 06/2014 Syncope Vomiting PAST SURGICAL HISTORY Procedure Laterality Date COLONOSCOPY 05/15/2011 COLONOSCOPY FLX DX W/COLLJ SPEC WHEN PFRMD 07/03/2014 EGD TRANSORAL BIOPSY SINGLE/MULTIPLE 07/03/2014 MIRENA IUD 12/04/2021 Placed in office- Due for removal 11/2028 FAMILY HISTORY Problem Relation Age of Onset Arthritis Mother Systemic Lupus (SLE) Glaucoma Mother Psoriasis Mother Coronary Artery Disease Father other (Familial idiopathic pulmonary fibrosis) Father 65 Not progressing at this time (2017) Systemic Lupus Erythematosus Sister Psoriasis Sister Psoriasis Brother Diabetes Maternal Grandmother Hypertension Maternal Grandmother Stroke Maternal Grandmother Emphysema Maternal Grandfather Heart Maternal Grandfather other (chf) Maternal Grandfather Heart Paternal Grandfather other (Familial IPF) Paternal Grandfather Rheumatologic disease Maternal Aunt RA Diabetes Maternal Aunt Diabetes Maternal Aunt SOCIAL HISTORY Social History Tobacco Use Smoking status: Never Smokeless tobacco: Never Tobacco comments: Father and Mother smoked in home. Stopped 03/2013. Vaping Use Vaping Use: Never used Substance Use Topics Alcohol use: Yes Comment: occiasionally Drug use: No REVIEW OF SYSTEMS Abdomen: No abdominal pain, nausea, vomiting, diarrhea, or constipation. No bloating, early satiety, indigestion, or increased flatulence. Bladder: No dysuria, gross hematuria, urinary frequency, urinary urgency, or incontinence. Breast: No breast lumps, nipple d/c, overlying skin changes, redness or skin retraction and Breast lump(s) noted. Allergies and current medication updated:Yes EXAM: BP 156/102 Ht 5' .5 (1.54m) Wt 266 lb (120.7kg) LMP 12/31/2021 BMI 51.07 kg/(m^2). GENERAL: pleasant, female in no apparent distress HEENT: Normocephalic and atraumatic NECK: Supple and full range of motion DERMATOLOGY: Normal and without lesions BREAST: soft, non-tender, symmetric, no dominant mass, normal nipple-areolar complex, no lymphadenopathy, no nipple discharge, and fibrocystic changes CHEST: Normal inspiratory effort ABDOMEN: soft, non-tender, and no masses PELVIC: external genitalia normal, normal Bartholin's glands, urethra, Claypool's glands, no vulvar lesions, no cervical lesions, good vaginal support, physiologic discharge present, normal appearing perineal body and perianal region IUD strings NOT visible BIMANUAL: uterus normal size, shape and consistency, no adnexal masses, non-tender, and no cervical motion tenderness RECTOVAGINAL: deferred. NEURO: alert and oriented x3,exam grossly non-focal EXTREMITIES: normal ASSESSMENT/PLAN: 1) Health maintenance: Pap done with reflex HPV. 2) Contraception: IUD. Patient unsure if desires to keep IUD in place. - Order for IUD removal placed- will need completed with physician and scope - Patient to call and schedule if desires removal 3) STD screening: Declined STD check. 4) Follow up one year or sooner as needed Francoise Rowley APRN.CNM documented in this encounter [facility] 02-13-2024 Telephone encounter Note Latex, banana and kiw sIgE levels negative. False negative results may occur. See below from prior clinic note. 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 Latex specific IgE level will be obtained. If latex sIgE is negative, a return visit for limited and nonstandardized latex skin tests and latex challenge may be considered to evaluate further for possible IgE-mediated latex hypersensitivity. This was discussed with the patient. Patient prefers to empirically be treated as allergic to latex rather than pursuing skin testing and challenge if latex specific IgE level is negative. The following was discussed with the patient: She should strictly avoid latex exposure at all times, including at home and at work. All medical and dental procedures must be completed with latex precautions. Epinephrine autoinjectors were prescribed. The patient should have epinephrine autoinjectors (Epipen, Auvi-Q 0.3 mg, or Adrenaclick 0.3 mg) and benadryl 50 mg or Zyrtec 10 mg available at all times in case of inadvertent latex exposure and severe allergic reaction. Proper use of epinephrine autoinjectors was reviewed with the patient. Patient was instructed to seek emergent medical care immediately after use. A second Epipen may be administered 5 or more minutes after the first if the reaction persists or recurs while awaiting EMS. Recommend that she continue to eliminate banana and kiwi from her diet as she has experienced symptoms with these foods and these foods potentially cross-react with latex. Banana and kiwi specific IgE levels will be obtained. (Patient is not interested in a return visit for the completion of allergy skin test to fresh fruits if laboratory evaluation is negative.) [facility] 02-13-2024 Miscellaneous Notes Latex, banana and kiw sIgE levels negative. False negative results may occur. See below from prior clinic note. 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 Latex specific IgE level will be obtained. If latex sIgE is negative, a return visit for limited and nonstandardized latex skin tests and latex challenge may be considered to evaluate further for possible IgE-mediated latex hypersensitivity. This was discussed with the patient. Patient prefers to empirically be treated as allergic to latex rather than pursuing skin testing and challenge if latex specific IgE level is negative. The following was discussed with the patient: She should strictly avoid latex exposure at all times, including at home and at work. All medical and dental procedures must be completed with latex precautions. Epinephrine autoinjectors were prescribed. The patient should have epinephrine autoinjectors (Epipen, Auvi-Q 0.3 mg, or Adrenaclick 0.3 mg) and benadryl 50 mg or Zyrtec 10 mg available at all times in case of inadvertent latex exposure and severe allergic reaction. Proper use of epinephrine autoinjectors was reviewed with the patient. Patient was instructed to seek emergent medical care immediately after use. A second Epipen may be administered 5 or more minutes after the first if the reaction persists or recurs while awaiting EMS. Recommend that she continue to eliminate banana and kiwi from her diet as she has experienced symptoms with these foods and these foods potentially cross-react with latex. Banana and kiwi specific IgE levels will be obtained. (Patient is not interested in a return visit for the completion of allergy skin test to fresh fruits if laboratory evaluation is negative.) documented in this encounter [facility] 01-17-2024 Note [facility] 01-17-2024 History of Present illness Narrative Liliam Thompson is a 33 year old female who presents for problem visit for irregular bleeding episode.. HPI: 33 YOF w/ IUD placed 11/2021 w/ no real menses in 2 years and had some pain in pelvis on 01/13/24 mostly on left side, achy and then started bleeding. Took advil for pain. Now light bleeding. Wasn't really heavy bleeding. Some loose stools since she had a viral illness about a month ago. No change in partners, no fevers or chills. No unual vaginal discharge/. OB History T0 L0 SAB0 IAB0 Ectopic0 Multiple0 Live Births0 [employer] History LMP: 12/31/2021, IUD Age at Menarche: Age at First : Age at Menopause: [employer] History Comments: Sexual Activity: Yes; Male; mirena inserted 11/2021 Contraception: I.U.D., Condom PAST MEDICAL HISTORY Diagnosis Date Anxiety Angeli Constantino Asthmatic bronchitis recurrent episodes since pneumonia fall and winter Depression Angeli Constantino Epigastric abdominal pain Fibromyalgia Dr. 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 @[facility] Migraine with aura visual aura; diagnosed with complex migraines Nausea MAXWELL (obstructive sleep apnea) 03/10/2016 PMH - PAST MEDICAL HISTORY OF age 1 1/2 febrile seizures-with varicella PMH - PAST MEDICAL HISTORY OF 6-7 months dislocated elbow PMH - PAST MEDICAL HISTORY OF menarche age 14 years PMH - PAST MEDICAL HISTORY OF 1997 normal color vision POTS (postural orthostatic tachycardia syndrome) 04/23/2018 Rectal bleeding Sinus arrhythmia Snoring Suicide attempt by acetaminophen overdose ([facility]) 06/2014 Syncope Vomiting PAST SURGICAL HISTORY Procedure Laterality Date COLONOSCOPY 05/15/2011 COLONOSCOPY FLX DX W/COLLJ SPEC WHEN PFRMD 07/03/2014 EGD TRANSORAL BIOPSY SINGLE/MULTIPLE 07/03/2014 MIRENA IUD 12/04/2021 Placed in office- Due for removal 11/2028 FAMILY HISTORY Problem Relation Age of Onset Arthritis Mother Systemic Lupus (SLE) Glaucoma Mother Psoriasis Mother Coronary Artery Disease Father other (Familial idiopathic pulmonary fibrosis) Father 65 Not progressing at this time (2016) Systemic Lupus Erythematosus Sister Psoriasis Sister Psoriasis Brother Diabetes Maternal Grandmother Hypertension Maternal Grandmother Stroke Maternal Grandmother Emphysema Maternal Grandfather Heart Maternal Grandfather other (chf) Maternal Grandfather Heart Paternal Grandfather other (Familial IPF) Paternal Grandfather Rheumatologic disease Maternal Aunt RA Diabetes Maternal Aunt Diabetes Maternal Aunt Social History Tobacco Use Smoking status: Never Smokeless tobacco: Never Tobacco comments: Father and Mother smoked in home. Stopped 03/2013. Vaping Use Vaping Use: Never used Substance Use Topics Alcohol use: Yes Comment: occiasionally Drug use: No Current Outpatient Medications Medication Sig EPINEPHrine (EPIPEN 2-ISIDRO) 0.3 mg/0.3 mL auto-injector Inject 0.3 mL intramuscularly as needed. 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 2.5 mg at onset of headache, may repeat in 4 hours if needed albuterol HFA (PROAIR HFA) 90 mcg/actuation inhaler Inhale 2 Puffs as instructed every 4 hours as needed. canakinumab, PF, (ILARIS, PF,) 150 mg/mL injection INJECT 150 MG (1 ML) UNDER THE SKIN EVERY 4 WEEKS baclofen 10 mg tablet Take 1 tablet by mouth three times a day as needed. fluvoxaMINE (LUVOX) 100 mg tablet Take 2 tablets by mouth once daily. atenolol (TENORMIN) 25 mg tablet Take 1 tablet by mouth two times a day as needed. FLUoxetine (PROZAC) 10 mg capsule Take 1 capsule by mouth once daily. Can go up to 20 mg after 1 month if needed colchicine 0.6 mg tablet Take 1 tablet by mouth twice daily. montelukast (SINGULAIR) 10 mg tablet Take 1 tablet by mouth daily at bedtime. zonisamide (ZONEGRAN) 100 mg capsule Take 3-4 caps at bedtime. propranolol (INDERAL) 10 mg tablet Take 1-2 tablets by mouth twice daily as needed (palpitations or tremors). levonorgestrel (MIRENA) 20 mcg/24 hours (7 yrs) 52 mg IUD 1 Each by INTRAUTERINE route as directed. levocetirizine 5 mg tablet Take 5 mg by mouth as needed. azelastine (ASTELIN) 0.1% nasal spray Use 2 Sprays in each nostril twice daily as needed. (Patient taking differently: Use 2 Sprays in each nostril once daily.) triamcinolone acetonide (NASACORT) 55 mcg nasal inhaler Use 2 Sprays in the nose once daily. No current facility-administered medications for this visit. Allergies As of Date: 01/17/2024 Allergen Noted Reaction LATEX, NATURAL RUBBER 01/18/2013 Hives BANANA 07/22/2023 Anaphylaxis LATEX 01/24/2023 Hives SEASONAL ALLERGIES 06/11/2021 Unknown Fully Assessed 01/02/2024 Allergies and current medication updated:Yes EXAM: LMP 12/31/2021 GENERAL: pleasant, female in no apparent distress PELVIC: external genitalia normal, normal Bartholin's glands, urethra, Claypool's glands, no vulvar lesions, no cervical lesions, good vaginal support, physiologic discharge present, normal appearing perineal body and perianal region, IUD strings not visible. TVUS done and IUD in endometrium. No FF in cul de sac BIMANUAL: uterus normal size, shape and consistency, no adnexal masses, and non-tender ASSESSMENT AND PLAN: AUB- IUD in place. reassured. Pain seems to be resolved. If worsens or other changes let us know and would check formal US Flora Jenkins MD documented in this encounter [facility] 01-02-2024 Note [facility] 01-02-2024 History of Present illness Narrative This note was created using [employer]. Subjective Liliam Thompson is a 33 year old female. Patient presents with: Established Patient: Follow up and GI Issues SUBJECTIVE: Liliam Thompson is a 33 year old year old lady here today for follow up appointment for review of medical conditions, including GI issues. Noted was seen for acute sinusitis issues and diarrhea 12/14/23 Noted norovirus thought was cause for above. However, still having episodes diarrhea every other day. Always at night Not dependent on what ate. Liquid stool. Like when had prior constipation issues. Some belly pain, gas and bloating prior. TUMS helps a little. Avoid Imodium. Did not take the Augmentin that was prescribed in December. Sinusitis are slowly resolving. Some bad taste and some sinus pain. No purulent drainage. Some post nasal drip. Already increased fiber. Was better when had apple a day. Needs to keep working on water intake--always did better when had 3 liters water daily. Had seen Dr. Watts 10/09/2019. Had recommended defecography at the time. Does Gatorade powder or rehydration salt and sugar water. Noted that saw Dr. Lau. latex allergy management noted. Increased leg swelling noted with hot and humid weather. Needs to try support stockings--see if covered with insurance. Needs to try zippered stockings since difficult to pull on the ones due to pain in hands. PAST MEDICAL HISTORY Diagnosis Date Anxiety Angeli Constantino Asthmatic bronchitis recurrent episodes since pneumonia fall and winter Depression Angeli Constantino Epigastric abdominal pain Fibromyalgia Dr. 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 @[facility] Migraine with aura visual aura; diagnosed with complex migraines Nausea MAXWELL (obstructive sleep apnea) 03/10/2016 PMH - PAST MEDICAL HISTORY OF age 1 1/2 febrile seizures-with varicella PMH - PAST MEDICAL HISTORY OF 6-7 months dislocated elbow PMH - PAST MEDICAL HISTORY OF menarche age 14 years PMH - PAST MEDICAL HISTORY OF 1997 normal color vision POTS (postural orthostatic tachycardia syndrome) 04/23/2018 Rectal bleeding Sinus arrhythmia Snoring Suicide attempt by acetaminophen overdose ([facility]) 06/2014 Syncope Vomiting Current Outpatient Medications Medication Sig EPINEPHrine (EPIPEN 2-ISIDRO) 0.3 mg/0.3 mL auto-injector Inject 0.3 mL intramuscularly as needed. 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 2.5 mg at onset of headache, may repeat in 4 hours if needed albuterol HFA (PROAIR HFA) 90 mcg/actuation inhaler Inhale 2 Puffs as instructed every 4 hours as needed. canakinumab, PF, (ILARIS, PF,) 150 mg/mL injection INJECT 150 MG (1 ML) UNDER THE SKIN EVERY 4 WEEKS baclofen 10 mg tablet Take 1 tablet by mouth three times a day as needed. fluvoxaMINE (LUVOX) 100 mg tablet Take 2 tablets by mouth once daily. atenolol (TENORMIN) 25 mg tablet Take 1 tablet by mouth two times a day as needed. FLUoxetine (PROZAC) 10 mg capsule Take 1 capsule by mouth once daily. Can go up to 20 mg after 1 month if needed colchicine 0.6 mg tablet Take 1 tablet by mouth twice daily. montelukast (SINGULAIR) 10 mg tablet Take 1 tablet by mouth daily at bedtime. zonisamide (ZONEGRAN) 100 mg capsule Take 3-4 caps at bedtime. propranolol (INDERAL) 10 mg tablet Take 1-2 tablets by mouth twice daily as needed (palpitations or tremors). levonorgestrel (MIRENA) 20 mcg/24 hours (7 yrs) 52 mg IUD 1 Each by INTRAUTERINE route as directed. levocetirizine 5 mg tablet Take 5 mg by mouth as needed. azelastine (ASTELIN) 0.1% nasal spray Use 2 Sprays in each nostril twice daily as needed. (Patient taking differently: Use 2 Sprays in each nostril once daily.) triamcinolone acetonide (NASACORT) 55 mcg nasal inhaler Use 2 Sprays in the nose once daily. No current facility-administered medications for this visit. Review of Systems Objective BP 122/78 Pulse 106 Temp 37 C (98.6 F) Resp 18 Wt 121.6 kg (268 lb) LMP 12/31/2021 SpO2 98% BMI 50.64 kg/m Last 5 Encounter Wt Readings: Date: Wt: 01/02/2024 121.6 kg (268 lb) 12/14/2023 122.7 kg (270 lb 8.1 oz) 12/08/2023 124.7 kg (274 lb 14.6 oz) 10/27/2023 123.5 kg (272 lb 4.3 oz) 10/14/2023 123.8 kg (273 lb) No waist measurement recorded Estimated body mass index is 50.64 kg/m as calculated from the following: Height as of 07/22/23: 154.9 cm (5' 1 ). Weight as of this encounter: 121.6 kg (268 lb). Last 5 Encounter BP Readings: Date: BP: 01/02/2024 122/78 12/14/2023 138/82 12/08/2023 126/89 10/27/2023 136/90 10/14/2023 118/88 Physical Exam Constitutional: Appearance: Normal appearance. HENT: Head: Normocephalic. Eyes: Conjunctiva/sclera: Conjunctivae normal. Cardiovascular: Rate and Rhythm: Normal rate and regular rhythm. Heart sounds: Normal heart sounds. Comments: Doughy edema Pulmonary: Effort: Pulmonary effort is normal. Breath sounds: Normal breath sounds. Musculoskeletal: Right lower le+ Edema present. Left lower le+ Edema present. Skin: General: Skin is warm and dry. Neurological: General: No focal deficit present. Mental Status: She is alert and oriented to person, place, and time. Psychiatric: Mood and Affect: Mood normal. Behavior: Behavior normal. Thought Content: Thought content normal. Judgment: Judgment normal. Assessment and Plan Encounter Diagnosis ICD-10-CM 1. Bilateral lower extremity edema R60.0 COMPRESSION STOCKINGS CANCELED: COMPRESSION STOCKINGS Will try to get zippered stockings 2. Intermittent diarrhea R19.7 ?constinpation in between. See if apples and more water adequate. GI follow up as needed 3. Class 3 severe obesity due to excess calories with body mass index (BMI) of 50.0 to 59.9 in adult, unspecified whether serious comorbidity present ([facility]) E66.01 Z68.43 Weight trending down. Continue efforts at better diet, staying ative and dealing with stressors 4. Encounter for long-term current use of medication Z79.899 BASIC METABOLIC PANEL Above issues addressed with patient. Patient involved in shared decision making for management of medical issues. History and medications reviewed. Epic updated as needed Refills and/or prescriptions taken care of and meds adjusted as indicated after reviewed history, exam and labs. Health Maintenance reviewed. Updated record and/or ordered tests as recorded. Encouraged on efforts at healthy diet and regular exercise and adequate sleep. I spent a total of 36 minutes on the date of the service which included [id number] patient care, completing clinical documentation, obtaining and/or reviewing separately obtained history, performing a medically appropriate examination, counseling and educating the patient/family/caregiver, and ordering medications, tests, or procedures. Faustina Carcamo MD documented in this encounter [facility] 12-14-2023 Note [facility] 12-14-2023 History of Present illness Narrative This note was created using [employer]. Subjective Liliam Thompson is a 33 year old female. HPI Pt awoke with diarrhea and a cough. Patient also notes about 2 weeks of sinus pain and pressure consistent with previous sinus infections. Review of Systems Constitutional: Negative for fever. HENT: Positive for sinus pressure and sinus pain. Respiratory: Positive for cough. Gastrointestinal: Positive for diarrhea. Objective BP 138/82 Pulse (!) 128 Temp 36.8 C (98.3 F) Resp 21 Wt 122.7 kg (270 lb 8.1 oz) LMP 12/31/2021 SpO2 97% BMI 51.11 kg/m Physical Exam Vitals and nursing note reviewed. Constitutional: General: She is not in acute distress. Appearance: Normal appearance. She is not ill-appearing. HENT: Head: Normocephalic. Mouth/Throat: Mouth: Mucous membranes are moist. Eyes: Conjunctiva/sclera: Conjunctivae normal. Cardiovascular: Rate and Rhythm: Regular rhythm. Tachycardia present. Pulmonary: Effort: Pulmonary effort is normal. Breath sounds: Normal breath sounds. Abdominal: Tenderness: There is no abdominal tenderness. Musculoskeletal: General: Normal range of motion. Cervical back: Normal range of motion. Skin: General: Skin is warm and dry. Neurological: General: No focal deficit present. Mental Status: She is alert. Psychiatric: Mood and Affect: Mood normal. Behavior: Behavior normal. Assessment and Plan ASSESSMENT/PLAN: 1. Diarrhea, unspecified type - ICD9: 787.91, ICD10: R19.7 (primary diagnosis) Discussed most likely viral origin of her diarrhea in the importance of staying hydrated. Discussed the risks and benefits of treatment for diarrhea and patient will let it run its course at this point 2. Acute cough - ICD9: 786.2, ICD10: R05.1 Discussed prescription for Tessalon Perles which patient states are not effective for her she will continue to use her home honey. Discussed viral origin of her URI type symptoms 3. Bacterial sinusitis - ICD9: 473.9, 041.9, ICD10: J32.9, B96.89 - Will begin treatment with Augmentin 875 mg PO BID for 5 days - Supportive care with plenty of fluids, rest, and analgesia prn. - Follow up in one week if symptoms persist or worsen. - AMOXICILLIN 875 MG-POTASSIUM CLAVULANATE 125 MG TABLET Anton Landin APRN.[employer] documented in this encounter [facility] 12-08-2023 Nurse Note Patient instructed on proper use of epi pen administration in case of systemic reaction after latex reaction. Instructed patient to seek medical attention after use. Patient demonstrated proper technique for using epi pen. [facility] 12-08-2023 Nurse Note Patient instructed on proper use of epi pen administration in case of systemic reaction after latex reaction. Instructed patient to seek medical attention after use. Patient demonstrated proper technique for using epi pen. Patient her for follow visit regarding alllergies and hives. Reports hives are well controlled. Allergies are just starting to cause issues with nasal congestion, itchy eyes and some wheezing. Will use rescue inhaler if chest tightness occurs, and resolves within an hour. Using Astelin as prescribed. Has not started the xyzal or nasacort for this spring. Interested in restarted Singulair, script ran out. Biggest concern is recent reactions she's been getting at work with balloon exposure. Had nasal congestion and eye watering, progressed into barky cough with throat tightness and difficulty breathing. Used albuterol and within 10 minutes she good breath easier but barky cough lasted for over an hour. documented in this encounter [facility] 12-08-2023 Nurse Note Patient her for follow visit regarding alllergies and hives. Reports hives are well controlled. Allergies are just starting to cause issues with nasal congestion, itchy eyes and some wheezing. Will use rescue inhaler if chest tightness occurs, and resolves within an hour. Using Astelin as prescribed. Has not started the xyzal or nasacort for this spring. Interested in restarted Singulair, script ran out. Biggest concern is recent reactions she's been getting at work with balloon exposure. Had nasal congestion and eye watering, progressed into barky cough with throat tightness and difficulty breathing. Used albuterol and within 10 minutes she good breath easier but barky cough lasted for over an hour. [facility] 12-08-2023 History of Present illness Narrative ASSESSMENT/PLAN: 1.) Adverse reaction to latex: Patient's history is consistent with IgE-mediated latex hypersensitivity. Latex specific IgE level will be obtained. If latex sIgE is negative, a return visit for limited and nonstandardized latex skin tests and latex challenge may be considered to evaluate further for possible IgE-mediated latex hypersensitivity. This was discussed with the patient. Patient prefers to empirically be treated as allergic to latex rather than pursuing skin testing and challenge if latex specific IgE level is negative. The following was discussed with the patient: She should strictly avoid latex exposure at all times, including at home and at work. All medical and dental procedures must be completed with latex precautions. Epinephrine autoinjectors were prescribed. The patient should have epinephrine autoinjectors (Epipen, Auvi-Q 0.3 mg, or Adrenaclick 0.3 mg) and benadryl 50 mg or Zyrtec 10 mg available at all times in case of inadvertent latex exposure and severe allergic reaction. Proper use of epinephrine autoinjectors was reviewed with the patient. Patient was instructed to seek emergent medical care immediately after use. A second Epipen may be administered 5 or more minutes after the first if the reaction persists or recurs while awaiting EMS. Recommend that she continue to eliminate banana and kiwi from her diet as she has experienced symptoms with these foods and these foods potentially cross-react with latex. Banana and kiwi specific IgE levels will be obtained. (Patient is not interested in a return visit for the completion of allergy skin test to fresh fruits if laboratory evaluation is negative.) 2.) Mixed allergic (grasses, weeds, ragweed) and nonallergic rhinitis: Aggressive environmental controls Recommend regular use of Nasacort 2 sprays each nostril once daily and Xyzal 5 mg once daily in December, January, March, April and May. She may take Xyzal 5 mg once daily as needed during the rest of the year Continue Astelin 2 sprays to each nostril twice daily as needed. She may also use [id number] Patanol, Pataday or Zaditor eyedrops as needed. Patient is not an ideal candidate for subcutaneous allergy immunotherapy at this time since she is taking a beta-ishmael. 3.) Oral allergy syndrome: Discussed that the symptoms of itching mouth and throat associated with ingestion of certain fresh fruits/vegetables such as cucumbers and apples are likely due to cross-reactivity between these foods and pollens. Cooked foods are typically well-tolerated. A copy of Patient education: Oral allergy syndrome (Beyond the Basics) was provided 4.) Discussed medication dosage, usage, side effects, and goals of treatment in detail. 5.) Follow-up in 1 yr - patient will return sooner should new symptoms or problems arise. Sasha Lau MD Liliam Thompson is a 33 year old female with a history of mixed allergic (grasses, weeds, ragweed) and nonallergic rhinitis, chronic urticaria presumed IgE-mediated latex hypersensitivity who presents for a follow-up visit. She also has a history of adverse reaction to bananas and cucumbers. 2 months ago, she developed watery eyes, nasal congestion barky cough and chest tightness after exposure to latex balloons that had been recently inflated in the workplace. She used albuterol with resolution of symptoms. She does not have epinephrine autoinjectors on hand. She has strictly eliminated bananas from her diet since her last visit. She is able to eat cucumbers if they are peeled beforehand. She also has noted itching mouth associated with ingestion of uncooked kiwi and apples. Overall, her nasal symptoms are well-controlled with her current medications. Cut grass is a trigger of her symptoms. Notes epistaxis if she uses Nasacort regularly. Prior methacholine challenge test was negative. She has albuterol on hand which she uses infrequently for subjective wheezing. Denies recent issues with urticaria. Works in a [employer] (Works with [employer]) Currently takes atenolol for POTS. (From initial visit on 06/11/21 This is a consultation requested by Lindsey Loving PA-C for an allergy and immunology evaluation. My final recommendations will be communicated back to the requesting healthcare provider(s) by way of shared medical record or via [place]. mail. Liliam Thompson is a 30 year old female who has symptoms of itchy eyes, clear rhinorrhea, nasal congestion, sneezing, postnasal drip. Associated symptoms include cough , and recurrent sinusitis. These symptoms are perennial with seasonal exacerbation in the spring and fall. Current triggers include exposure to grass. The patient has been suffering from these symptoms since adolescence. The patient takes Singulair, Xyzal and Nasacort with fair relief of symptoms. She complains of epistaxis associated with use of Nasacort and therefore uses this primarily in the spring and fall only. She has not been using proper technique with the nasal spray. No prior allergy testing or allergy immunotherapy. She has taken 7-8 courses of antibiotics in the past year for sinusitis. Paranasal sinuses were clear on CT scan completed July 17, 2020. Denies a history of nasal polyposis. No prior nasal or sinus surgery. She has a history of bronchitis and pneumonia. Uses albuterol infrequently for acute symptoms. Denies prior treatment with systemic steroids for respiratory symptoms. She presented to the emergency room for respiratory symptoms in 2013. No prior hospitalizations for resp sxs. In April,, methacholine challenge test was negative. She has a history of adverse reaction to latex. She developed a pruritic rash 1 hour after exposure to a latex tourniquet. She developed urticaria on the face and neck 30 minutes after latex exposure during a dental visit. Complained of itching and irritation associated with use of latex condoms. With ingestion of bananas, she developed itching mouth. Symptoms sometimes progress to abdominal pain, sneezing and nasal congestion. She currently strictly eliminates bananas from her diet. She complains of itching mouth associated with ingestion of cucumber. She has a history of urticaria since adolescence. She takes Xyzal daily with good control of symptoms. She will note urticaria if she discontinues use this medication. Skin lesions are red raised and pruritic welts. Individual lesions resolve within 24 hours without residual bruising or hyperpigmentation. There are no clear triggers for her symptoms. She takes propranolol for POTS.) REVIEW OF SYSTEMS: All other review of systems negative except for those listed above. PAST MEDICAL HISTORY Diagnosis Date Anxiety Angeli Constantino Asthmatic bronchitis recurrent episodes since pneumonia fall and winter Depression Angeli Constantino Epigastric abdominal pain Fibromyalgia Dr. 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 @[facility] Migraine with aura visual aura; diagnosed with complex migraines Nausea MAXWELL (obstructive sleep apnea) 03/10/2016 PMH - PAST MEDICAL HISTORY OF age 1 1/2 febrile seizures-with varicella PMH - PAST MEDICAL HISTORY OF 6-7 months dislocated elbow PMH - PAST MEDICAL HISTORY OF menarche age 14 years PMH - PAST MEDICAL HISTORY OF 1997 normal color vision POTS (postural orthostatic tachycardia syndrome) 04/23/2018 Rectal bleeding Sinus arrhythmia Snoring Suicide attempt by acetaminophen overdose ([facility]) 06/2014 Syncope Vomiting MEDICATIONS: naratriptan (AMERGE) 2.5 mg tablet Take 1 tablet (2.5 mg) by mouth as needed for migraine headache (see administration instructions). 2.5 mg at onset of headache, may repeat in 4 hours if needed albuterol HFA (PROAIR HFA) 90 mcg/actuation inhaler Inhale 2 Puffs as instructed every 4 hours as needed. canakinumab, PF, (ILARIS, PF,) 150 mg/mL injection INJECT 150 MG (1 ML) UNDER THE SKIN EVERY 4 WEEKS baclofen 10 mg tablet Take 1 tablet by mouth three times a day as needed. fluvoxaMINE (LUVOX) 100 mg tablet Take 2 tablets by mouth once daily. atenolol (TENORMIN) 25 mg tablet Take 1 tablet by mouth two times a day as needed. FLUoxetine (PROZAC) 10 mg capsule Take 1 capsule by mouth once daily. Can go up to 20 mg after 1 month if needed Needle, Disp, 27 G (BD DISPOSABLE NEEDLES) 27 gauge x 1/2 ndle USE DIRECTED WITH ILARIS (Patient not taking: Reported on 10/14/2023) Needle, Disp, 18 G (BD REGULAR BEVEL NEEDLES) 18 gauge x 1 1/2 USE DIRECTED WITH ILARIS (Patient not taking: Reported on 10/27/2023) Syringe, Disposable, (B-D SYRINGE LUER-RAJI 1CC) 1 mL USE DIRECTED WITH ILARIS (Patient not taking: Reported on 10/27/2023) colchicine 0.6 mg tablet Take 1 tablet by mouth twice daily. montelukast (SINGULAIR) 10 mg tablet Take 1 tablet by mouth daily at bedtime. zonisamide (ZONEGRAN) 100 mg capsule Take 3-4 caps at bedtime. Needle, Disp, 25 G (BD DISPOSABLE NEEDLES) 25 gauge x 5/8 ndle 1 Syringe every 4 weeks. (Patient not taking: Reported on 10/14/2023) Syringe with Needle, Disp, (BD TUBERCULIN SYRINGE) 1 mL 27 x 1/2 every 4 weeks. (Patient not taking: Reported on 10/27/2023) propranolol (INDERAL) 10 mg tablet Take 1-2 tablets by mouth twice daily as needed (palpitations or tremors). levonorgestrel (MIRENA) 20 mcg/24 hours (7 yrs) 52 mg IUD 1 Each by INTRAUTERINE route as directed. levocetirizine 5 mg tablet Take 5 mg by mouth as needed. azelastine (ASTELIN) 0.1% nasal spray Use 2 Sprays in each nostril twice daily as needed. triamcinolone acetonide (NASACORT) 55 mcg nasal inhaler Use 2 Sprays in the nose once daily. ALLERGIES: Allergies As of Date: 12/08/2023 Allergen Noted Reaction LATEX, NATURAL RUBBER 01/18/2013 Hives BANANA 07/22/2023 Anaphylaxis LATEX 01/24/2023 Hives SEASONAL ALLERGIES 06/11/2021 Unknown Fully Assessed 10/27/2023 PAST SURGICAL HISTORY Procedure Laterality Date COLONOSCOPY 05/15/2011 COLONOSCOPY FLX DX W/COLLJ SPEC WHEN PFRMD 07/03/2014 EGD TRANSORAL BIOPSY SINGLE/MULTIPLE 07/03/2014 MIRENA IUD 12/04/2021 Placed in office- Due for removal 11/2028 FAMILY HISTORY: Allergic rhinitis:yes: sister. Asthma: no. Eczema: no. Cystic fibrosis: no. Immunodeficiency: no. 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 Stopped 03/2013. CENX ENVIRONMENTAL HISTORY: Lives in a house Age of home: 50 years Heating: gas Woodburning fireplace in the home: no Air conditioning: Central air Basement: Damp basement Enoch: [id number] carpeting Dust mite controls: Dust mite controls are not in place. Pets in the home: 1 cats Outdoor animals: There are no outdoor animals Tobacco smoke: No exposure in the home. Physical Exam: GENERAL APPEARANCE:Well appearing, alert, in no acute distress, well-hydrated, obese HEENT: NCAT. EYES: conjunctiva and sclera normal. EARS: External ears normal. Canals clear. TM's normal. NOSE/SINUS: mild edema of the nasal mucosa with scant clear secretions bilaterally THROAT: no erythema NECK:neck supple, no adenopathy HEART:RRR with normal S1 and S2 ,no murmurs, no gallops, no rubs LUNGS: clear to auscultation bilaterally, no wheezes, rales or rhonchi EXTREMITIES:Extremities normal, No deformities, No skin discoloration and No edema SKIN: Skin color, texture, turgor normal. No rashes or lesions. ALLERGY SKIN TESTS on June 11, 2021:Positive to grasses, weeds, ragweed on prick testing. Negative to banana and cucumber. Intradermal tests were negative documented in this encounter [facility] 12-08-2023 Note [facility] 10-27-2023 Instructions Qian Farris APRN.CNP - 10/27/2023 9:52 AM EDT PLAN AND RECOMMENDATIONS: Continue the same medications Follow up with Dr Gramajo 6 months CONTACT INFORMATION: Qian Farris APRN.CNP Cardiology Nurse Practitioner Section of Regional Cardiology [facility] Dept of Cardiovascular Medicine [facility] [place] [address] [place] [address] Office Office documented in this encounter [facility] 10-27-2023 Note [facility] 10-27-2023 History of Present illness Narrative Images from the original note were not included. [facility] [place] Kinjal Farrar Department of Cardiovascular Medicine SECTION OF CLINICAL CARDIOLOGY OUTPATIENT VISIT DATE October 27, 2023 OUTPATIENT VISIT TYPE ESTABLISHED PRIMARY CARE PHYSICIAN: Faustina Carcamo [address] [place] [id number] REFERRING PHYSICIAN: No referring provider defined for this encounter. CHIEF COMPLAINT: Established Patient (3 Months F/u) HISTORY OF PRESENT ILLNESS: Ms. Thompson is a 33 year old female with PMH of POTS, vitamin D deficiency, obesity, fibromyalgia, MAXWELL, who presents today for a cardiovascular medicine follow-up visit after she saw Dr Gramajo for the first time to establish care. She has been on same meds for quite some time. Stil have same symptoms but seems better in winter if she has to stand for long periods of time. Worse in the summer. Overall she is better in winter. Uses propranolol mostly in the evening if she needs it. But not very often. She denies shortness of breath, chest pain, palpitations, lower extremity edema, PND, orthopnea, or claudication symptoms Subjective PAST MEDICAL HISTORY Diagnosis Date Anxiety Angeli Constantino Asthmatic bronchitis recurrent episodes since pneumonia fall and winter Depression Angeli Constantino Epigastric abdominal pain Fibromyalgia Dr. 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 @[facility] Migraine with aura visual aura; diagnosed with complex migraines Nausea MAXWELL (obstructive sleep apnea) 03/10/2016 PMH - PAST MEDICAL HISTORY OF age 1 1/2 febrile seizures-with varicella PMH - PAST MEDICAL HISTORY OF 6-7 months dislocated elbow PMH - PAST MEDICAL HISTORY OF menarche age 14 years PMH - PAST MEDICAL HISTORY OF 1998 normal color vision POTS (postural orthostatic tachycardia syndrome) 04/23/2018 Rectal bleeding Sinus arrhythmia Snoring Suicide attempt by acetaminophen overdose ([facility]) 06/2014 Syncope Vomiting PAST SURGICAL HISTORY Procedure Laterality Date COLONOSCOPY 05/15/2011 COLONOSCOPY FLX DX W/COLLJ SPEC WHEN PFRMD 07/03/2014 EGD TRANSORAL BIOPSY SINGLE/MULTIPLE 07/03/2014 MIRENA IUD 12/04/2021 Placed in office- Due for removal 11/2028 Social History Tobacco Use Smoking status: Never Smokeless tobacco: Never Tobacco comments: Father and Mother smoked in home. Stopped 03/2013. Vaping Use Vaping Use: Never used Substance Use Topics Alcohol use: Yes Comment: occiasionally Drug use: No FAMILY HISTORY Problem Relation Age of Onset Arthritis Mother Systemic Lupus (SLE) Glaucoma Mother Psoriasis Mother Coronary Artery Disease Father other (Familial idiopathic pulmonary fibrosis) Father 65 Not progressing at this time (2017) Systemic Lupus Erythematosus Sister Psoriasis Sister Psoriasis Brother Diabetes Maternal Grandmother Hypertension Maternal Grandmother Stroke Maternal Grandmother Emphysema Maternal Grandfather Heart Maternal Grandfather other (chf) Maternal Grandfather Heart Paternal Grandfather other (Familial IPF) Paternal Grandfather Rheumatologic disease Maternal Aunt RA Diabetes Maternal Aunt Diabetes Maternal Aunt ALLERGIES: ALLERGIES Allergen Reactions Latex, Natural Rubb* Hives Banana Anaphylaxis Gi issues and tingling of tongue and tightness in throat Latex Hives Seasonal Allergies Unknown GRASSES, WEEDS AND RAGWEED VERIFIED BY SKIN TESTING MEDICATIONS: naratriptan (AMERGE) 2.5 mg tablet Take 1 tablet (2.5 mg) by mouth as needed for migraine headache (see administration instructions). 2.5 mg at onset of headache, may repeat in 4 hours if needed albuterol HFA (PROAIR HFA) 90 mcg/actuation inhaler Inhale 2 Puffs as instructed every 4 hours as needed. canakinumab, PF, (ILARIS, PF,) 150 mg/mL injection INJECT 150 MG (1 ML) UNDER THE SKIN EVERY 4 WEEKS baclofen 10 mg tablet Take 1 tablet by mouth three times a day as needed. fluvoxaMINE (LUVOX) 100 mg tablet Take 2 tablets by mouth once daily. atenolol (TENORMIN) 25 mg tablet Take 1 tablet by mouth two times a day as needed. FLUoxetine (PROZAC) 10 mg capsule Take 1 capsule by mouth once daily. Can go up to 20 mg after 1 month if needed colchicine 0.6 mg tablet Take 1 tablet by mouth twice daily. montelukast (SINGULAIR) 10 mg tablet Take 1 tablet by mouth daily at bedtime. zonisamide (ZONEGRAN) 100 mg capsule Take 3-4 caps at bedtime. propranolol (INDERAL) 10 mg tablet Take 1-2 tablets by mouth twice daily as needed (palpitations or tremors). levonorgestrel (MIRENA) 20 mcg/24 hours (7 yrs) 52 mg IUD 1 Each by INTRAUTERINE route as directed. levocetirizine 5 mg tablet Take 5 mg by mouth as needed. azelastine (ASTELIN) 0.1% nasal spray Use 2 Sprays in each nostril twice daily as needed. triamcinolone acetonide (NASACORT) 55 mcg nasal inhaler Use 2 Sprays in the nose once daily. Needle, Disp, 27 G (BD DISPOSABLE NEEDLES) 27 gauge x 1/2 ndle USE DIRECTED WITH ILARIS (Patient not taking: Reported on 10/14/2023) Needle, Disp, 18 G (BD REGULAR BEVEL NEEDLES) 18 gauge x 1 1/2 USE DIRECTED WITH ILARIS (Patient not taking: Reported on 10/27/2023) Syringe, Disposable, (B-D SYRINGE LUER-RAJI 1CC) 1 mL USE DIRECTED WITH ILARIS (Patient not taking: Reported on 10/27/2023) Needle, Disp, 25 G (BD DISPOSABLE NEEDLES) 25 gauge x 5/8 ndle 1 Syringe every 4 weeks. (Patient not taking: Reported on 10/14/2023) Syringe with Needle, Disp, (BD TUBERCULIN SYRINGE) 1 mL 27 x 1/2 every 4 weeks. (Patient not taking: Reported on 10/27/2023) REVIEW OF SYSTEMS: CARD: See HPI GENERAL: Negative for: Weight loss or gain, Fever and/or Chills HEENT: Negative for: Headache, Impaired Vision, Glasses, Hearing Impairment, Ringing in Ears, Nosebleeds, Bleeding Gums NECK: Negative for: Swelling, Pain, Stiffness RESPIRATORY: Negative for: Cough, Blood in Sputum, Shortness of breath, Wheezing, Apnea GASTROINTESTINAL: Negative for: Nausea, Vomiting, Diarrhea, Blood in stool, or Dark black stools MUSCULOSKELETAL: Negative for: Muscle or joint pain, Stiffness , Joint swelling NEUROLOGIC: Negative for: focal numbness/weakness, headaches, visual changes, ataxia, speech/language loss HEMATOLOGICAL/LYMPHATIC: Negative for: Easy bruising , Easy bleeding Objective PHYSICAL EXAMINATION: BP 136/90 (BP Site: Right Arm, BP Position: Sitting) Pulse 87 Wt 123.5 kg (272 lb 4.3 oz) LMP 12/31/2021 SpO2 96% BMI 51.44 kg/m General: Well appearing, in no acute distress. Skin: No clubbing, no cyanosis. Eyes: Extra ocular movements intact Neck: No jugular venous distention, no carotid bruits, carotids have a normal upstroke. Lungs: Clear to auscultation bilaterally, no wheezing or rhonchi. Heart: Regular rhythm, S1, S2 normal, no murmur. No peripheral edema . Grade 2/4 distal pulses bilaterally. Neuro: Oriented to person, place and time, alert, cooperative, gait coordinated. CARDIOVASCULAR MEDICINE TESTING: No Cardiovascular testing perfomed today. Last EKG Result Conclusion ECG COMPLETE Collected: 05/20/2023 8:12 AM (Final result) Impression: NORMAL SINUS RHYTHM NORMAL ECG Confirmed by MD SHERIDAN GREGORY () on 05/23/2023 8:42:58 AM There were no tests performed for review. I personally interviewed, confirmed and edited the above information if obtained by others. Conclusion: (G90.A) POTS (postural orthostatic tachycardia syndrome) (primary encounter diagnosis) Comment: appears to be content and stable at this time. There is a seasonality to her symptoms. Plan: no change in her medications. PLAN AND RECOMMENDATIONS: Continue the same medications Follow up with Dr Gramajo 6 months CONTACT INFORMATION: Qian Farris APRN.LIZZIE Cardiology Nurse Practitioner Section of [facility] Cardiology [facility] Dept of Cardiovascular Medicine [facility] [place] [address] [place] [address] Office Office documented in this encounter [facility] 10-24-2023 Note [facility] 10-24-2023 History of Present illness Narrative VIRTUAL VISIT PROGRESS NOTE This is a virtual visit using [employer] Zoom Video Visit. It required patient-provider interaction for the medical decision making as documented below. I have communicated my name and active licensure. The patient's identity and physical location were verified at the time of this visit. Either the patient or their legal contact center representative has been informed of the risks and benefits of -- and alternatives to -- treatment through a remote evaluation and consents to proceed with the evaluation remotely. Liliam Thompson is a 33 year old female seen for follow up. Latex allergy has gotten worse. Just walking by balloons and developed trouble breathing with barking cough. No wheezing Used albuterol after got to car. Eyes also irritated. Symptoms resolved after 10 minutes. Reaction also happened after sorting through box of condoms for work. 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 Has appointment end of November for follow up. Needs letter for work to verify needs accommodation due to her allergy so can avoid exposure. Reviewed recent labs--noted negative for Lynn's thyroiditis as cause for intermittently elevated TSH. Reviewed meds for refills needed. Noted that Relpax was never able to get prior authorization. Still on Amerge prn. No refills at pharmacy--last filled RX from [facility] and no more refills despite RX from [facility] that was sent June 2023. Continues to follow up with neurologist. Noted Baclofen added in case trigeminal neuralgia issue. HISTORY REVIEWED (electronic chart updated): PAST MEDICAL HISTORY Diagnosis Date Anxiety Angeli Constantino Asthmatic bronchitis recurrent episodes since pneumonia fall and winter Depression Angeli Constantino Epigastric abdominal pain Fibromyalgia Dr. 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 @[facility] Migraine with aura visual aura; diagnosed with complex migraines Nausea MAXWELL (obstructive sleep apnea) 03/10/2016 PMH - PAST MEDICAL HISTORY OF age 1 1/2 febrile seizures-with varicella PMH - PAST MEDICAL HISTORY OF 6-7 months dislocated elbow PMH - PAST MEDICAL HISTORY OF menarche age 14 years PMH - PAST MEDICAL HISTORY OF 1998 normal color vision POTS (postural orthostatic tachycardia syndrome) 04/23/2018 Rectal bleeding Sinus arrhythmia Snoring Suicide attempt by acetaminophen overdose ([facility]) 06/2014 Syncope Vomiting PAST SURGICAL HISTORY Procedure Laterality Date COLONOSCOPY 05/15/2011 COLONOSCOPY FLX DX W/COLLJ SPEC WHEN PFRMD 07/03/2014 EGD TRANSORAL BIOPSY SINGLE/MULTIPLE 07/03/2014 MIRENA IUD 12/04/2021 Placed in office- Due for removal 11/2028 FAMILY HISTORY Problem Relation Age of Onset Arthritis Mother Systemic Lupus (SLE) Glaucoma Mother Psoriasis Mother Coronary Artery Disease Father other (Familial idiopathic pulmonary fibrosis) Father 65 Not progressing at this time (2017) Systemic Lupus Erythematosus Sister Psoriasis Sister Psoriasis Brother Diabetes Maternal Grandmother Hypertension Maternal Grandmother Stroke Maternal Grandmother Emphysema Maternal Grandfather Heart Maternal Grandfather other (chf) Maternal Grandfather Heart Paternal Grandfather other (Familial IPF) Paternal Grandfather Rheumatologic disease Maternal Aunt RA Diabetes Maternal Aunt Diabetes Maternal Aunt Social History Tobacco Use Smoking status: Never Smokeless tobacco: Never Tobacco comments: Father and Mother smoked in home.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 PM (Final result) Impression: IMPRESSION: No acute intracranial or orbital abnormality or pathologic enhancement. No cord signal abnormality or pathologic enhancement.... MRA Head and/or Neck - Last 2 Impressions No resulted procedures found. CT Head/Brain - Last 2 Impressions No resulted procedures found. CTA Head and/or Neck - Last 2 No resulted procedures found. Labs to Review: Yes, CBC with elevated white blood cell at 11.75 and platelet count 533 CRP elevated at 2.3 Sed rate at 54 New Health Issues: No New Family History: No Review of Systems: Review of system: unchanged from the previous visit (sleep patterns, mood, energy, appetite, stress, exercising). Physical Examination: Vital Signs: No vital signs taken for this visit due to nature of virtual visit. General: well appearing, in no acute distress, alert Pain Behaviors: no pain behaviors observed Neurological: Mental Status: Alert and oriented to person, place and time. Affect is normal. Speech is spontaneous and fluent without dysarthria. Short and mcc memory, cognition and general fund of knowledge are good. Attention span and concentration are excellent. HEENT: Head is normocephalic and features were symmetric. Musculoskeletal: Patient able to sit up right in chair for entirety of visit. Cranial Nerves: III, IV, -EOMI: full. VII-face is symmetric without evidence of weakness. VIII-hearing intact. IMPRESSION: Chronic migraine without aura, with intractable migraine, so stated, with status migrainosus Atypical facial pain (primary encounter diagnosis) Liliam Thompson is a 32 year old year old female, with a history of Chronic migraines, POTS, PTSD, panic disorder with agoraphobia, fibromyalgia, obesity, MAXWELL, following up today virtually for new onset facial pain. The facial pain is similar to previous pain she has experienced. Although, the pain distribution starts at her right jawline and radiates towards her right ear and her right eyebrow. Their neurological examination is essentially normal at this visit although this is limited due to nature of telehealth. We discussed medication options and will trial baclofen as needed for facial pain. Difficult to assess differential that includes trigeminal neuralgia, trigeminal neuropathy, dental/TMJ origin, or related to history of fibromyalgia/rheumatological conditions through virtual appointment. Recommend patient has in person appointment for further evaluation and she is scheduled to see Dr. Judge on Tuesday. I do not feel that a preventative medication would be warranted today due to unclear etiology and duration of symptoms at this time. PLAN: Start baclofen 10 mg 3 times daily as needed for facial pain Follow-up for in person evaluation with neurological exam on Tuesday with Dr. Judge Recommend patient follows up with dentist Advised to go to ER for any worsening symptoms or new concerns Future considerations: Trileptal, Tegretol, gabapentin, bridge therapy with prednisone versus 3-day course at our infusion clinic HEADACHE MANAGEMENT: (You are the primary guardian of your health and headache. Keep track of all medications: This includes the reason for use, side effects and benefits.) MEDICATION TREATMENT: Medications to Start Taking baclofen 10 mg tablet Take 1 tablet by mouth three times a day as needed. RESEARCH: None at this time Follow-up: 3 days Level of Service: Virtual Visit 45 minutes Radha Toledo PA-C Headache [facility] August 19, 2023 documented in this encounter [facility] 08-19-2023 Note [facility] 08-19-2023 Note [facility] 08-04-2023 Note [facility] 07-28-2023 Note [facility] 07-26-2023 Note [facility] 07-26-2023 History of Present illness Narrative Liliam Thompson is a 32 year old female who presented for obstetrics gynecology physician ultrasound today. Encounter Diagnosis ICD-10-CM 1. Pelvic pain in female R10.2 Please see report under imaging tab. Shannan Ballesteros MD July 26, 2023 9:13 AM documented in this encounter [facility] 07-22-2023 Note [facility] 07-22-2023 History of Present illness Narrative Liliam Thompson is a 32 year old female who presents for problem visit for pelvic pain. This has been going on for approximately a year. She had Mirena IUD placed in November/2021. She has not had a cycle since March 2022. She denies any fever or chills. Denies any change in bladder habits OB History T0 L0 SAB0 IAB0 Ectopic0 Multiple0 Live Births0 Roof Foreman History LMP: 12/31/2021, IUD Age at Menarche: Age at First : Age at Menopause: Roof Foreman History Comments: Sexual Activity: Yes; Male; mirena inserted 11/2021 Contraception: I.U.D., Condom PAST MEDICAL HISTORY Diagnosis Date Anxiety Angeli Constantino Asthmatic bronchitis recurrent episodes since pneumonia fall and winter Depression Angeli Constantino Epigastric abdominal pain Fibromyalgia Dr. 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 @[facility] Migraine with aura visual aura; diagnosed with complex migraines Nausea MAXWELL (obstructive sleep apnea) 03/10/2016 PMH - PAST MEDICAL HISTORY OF age 1 1/2 febrile seizures-with varicella PMH - PAST MEDICAL HISTORY OF 6-7 months dislocated elbow PMH - PAST MEDICAL HISTORY OF menarche age 14 years PMH - PAST MEDICAL HISTORY OF 1998 normal color vision POTS (postural orthostatic tachycardia syndrome) 04/23/2018 Rectal bleeding Sinus arrhythmia Snoring Suicide attempt by acetaminophen overdose (HCC) 06/2014 Syncope Vomiting PAST SURGICAL HISTORY Procedure Laterality Date COLONOSCOPY 05/15/2011 COLONOSCOPY FLX DX W/COLLJ SPEC WHEN PFRMD 07/03/2014 EGD TRANSORAL BIOPSY SINGLE/MULTIPLE 07/03/2014 MIRENA IUD 12/04/2021 Placed in office- Due for removal 11/2028 FAMILY HISTORY Problem Relation Age of Onset Arthritis Mother Systemic Lupus (SLE) Glaucoma Mother Psoriasis Mother Coronary Artery Disease Father other (Familial idiopathic pulmonary fibrosis) Father 65 Not progressing at this time (2017) Systemic Lupus Erythematosus Sister Psoriasis Sister Psoriasis Brother Diabetes Maternal Grandmother Hypertension Maternal Grandmother Stroke Maternal Grandmother Emphysema Maternal Grandfather Heart Maternal Grandfather other (chf) Maternal Grandfather Heart Paternal Grandfather other (Familial IPF) Paternal Grandfather Rheumatologic disease Maternal Aunt RA Diabetes Maternal Aunt Diabetes Maternal Aunt Social History Tobacco Use Smoking status: Never Smokeless tobacco: Never Tobacco comments: Father and Mother smoked in home. Stopped 03/2013. Vaping Use Vaping Use: Never used Substance Use Topics Alcohol use: Yes Comment: occiasionally Drug use: No Current Outpatient Medications Medication Sig predniSONE (DELTASONE) 5 mg tablet 20 mg daily for 3 days, then 15 mg daily for 3 days, then 10 mg daily for 3 days then 5 mg daily for 30 days fluvoxaMINE (LUVOX) 100 mg tablet Take 2 tablets by mouth once daily. atenolol (TENORMIN) 25 mg tablet Take 1 tablet by mouth two times a day as needed. naratriptan (AMERGE) 2.5 mg tablet Take 1 tablet (2.5 mg) by mouth as needed for migraine headache (see administration instructions). 2.5 mg at onset of headache, may repeat in 4 hours if needed FLUoxetine (PROZAC) 10 mg capsule Take 1 capsule by mouth once daily. Can go up to 20 mg after 1 month if needed eletriptan (RELPAX) 40 mg tablet Take 1 tablet (40 mg) by mouth as needed. TAKE AT ONSET OF MIGRAINE HEADACHE. tocilizumab (ACTEMRA) 162 mg/0.9 mL Inject 162 mg ( 1 syringe) subcutaneously one time a week. colchicine 0.6 mg tablet Take 1 tablet by mouth twice daily. montelukast (SINGULAIR) 10 mg tablet Take 1 tablet by mouth daily at bedtime. zonisamide (ZONEGRAN) 100 mg capsule Take 3-4 caps at bedtime. propranolol (INDERAL) 10 mg tablet Take 1-2 tablets by mouth twice daily as needed (palpitations or tremors). levonorgestrel (MIRENA) 20 mcg/24 hours (7 yrs) 52 mg IUD 1 Each by INTRAUTERINE route as directed. levocetirizine 5 mg tablet Take 5 mg by mouth as needed. azelastine (ASTELIN) 0.1% nasal spray Use 2 Sprays in each nostril twice daily as needed. triamcinolone acetonide (NASACORT) 55 mcg nasal inhaler Use 2 Sprays in the nose once daily. Needle, Disp, 27 G (BD DISPOSABLE NEEDLES) 27 gauge x 1/2 ndle USE DIRECTED WITH ILARIS Needle, Disp, 18 G (BD REGULAR BEVEL NEEDLES) 18 gauge x 1 1/2 USE DIRECTED WITH ILARIS Syringe, Disposable, (B-D SYRINGE LUER-RAJI 1CC) 1 mL USE DIRECTED WITH ILARIS albuterol HFA (PROAIR HFA) 90 mcg/actuation inhaler Inhale 2 Puffs as instructed every 4 hours as needed. (Patient taking differently: Inhale 2 Puffs as instructed every 4 hours as needed. prn) Needle, Disp, 25 G (BD DISPOSABLE NEEDLES) 25 gauge x 5/8 ndle 1 Syringe every 4 weeks. Syringe with Needle, Disp, (BD TUBERCULIN SYRINGE) 1 mL 27 x 1/2 every 4 weeks. cholecalciferol, Vitamin D3, (VITAMIN D3) 1,250 mcg (50,000 unit) cap capsule Take 1 capsule by mouth two times a week. (Patient not taking: Reported on 02/25/2023) No current facility-administered medications for this visit. Allergies As of Date: 07/22/2023 Allergen Noted Reaction LATEX, NATURAL RUBBER 01/18/2013 Hives BANANA 07/22/2023 Anaphylaxis LATEX 01/24/2023 Hives SEASONAL ALLERGIES 06/11/2021 Unknown Fully Assessed 07/22/2023 REVIEW OF SYSTEMS Abdomen: pelvic pain Bladder: No dysuria, gross hematuria, urinary frequency, urinary urgency, or incontinence. Breast: No breast lumps, nipple d/c, overlying skin changes, redness or skin retraction. Expanded ROS: N/A Allergies and current medication updated:Yes EXAM: BP 126/84 Ht 5' 1 [per pt[ (1.55m) Wt 268 lb 6.4 oz (121.7kg) LMP 12/31/2021 BMI 50.74 kg/(m^2). GENERAL: pleasant, female in no apparent distress HEENT: Normocephalic, atraumatic, mucus membranes moist, and no lesions NECK: Supple, full range of motion, no adenopathy, and thyroid normal DERMATOLOGY: Normal, without lesions, non-icteric, and non-hirsute BREAST: deferred CHEST: Normal inspiratory effort ABDOMEN: soft, non-tender, and no masses PELVIC: external genitalia normal, normal Bartholin's glands, urethra, Claypool's glands, no vulvar lesions, no cervical lesions, good vaginal support, physiologic discharge present, normal appearing perineal body and perianal region BIMANUAL: uterus normal size, shape and consistency, no adnexal masses, and non-tender NEURO: alert and oriented x3,exam grossly non-focal EXTREMITIES: normal ASSESSMENT AND PLAN: Encounter Diagnosis ICD-10-CM 1. Pelvic pain in female R10.2 PELVIC US WHI Charissa Ayala MD Change Over offered: Patient declines. Monica Hernandez RN documented in this encounter [facility] 07-22-2023 Note HNO ID: [id number] Author: Monica Hernandez RN Service: ? Author Type: Registered Nurse Type: Progress Notes Filed: 07/22/2023 2:20 PM Note Text: Change Over offered: Patient declines. Monica Hernandez RN [facility] 07-06-2023 Note [facility] 07-06-2023 Miscellaneous Notes Looks like her standing orders are for every 3 months? She will need orders for 2 more months prior to every 3 months? documented in this encounter [facility] 06-23-2023 Miscellaneous Notes Spoke with pt and she reports Dr. Carcamo is aware pt has not seen a psychiatry for over a year and Dr. Carcamo had agreed to fill prescription Fluvoxamine. Regarding medication Naratriptan, Dr. Lyons is retiring at the end of June and pt has not been able to get a hold of anyone in the office. Genaro Mckeon was to be sending a message on behalf of pt and she has heard nothing back from this office. Pt will discuss all of the above with Dr. Carcamo. Loulou Blue LPN Fluvoxamine was ordered by psychiatry, a follow-up appointment was recommended. If she is seeing a new psychiatrist. If not should reschedule with Zain Carlson DO. I can order a short-term refill for this. Naratriptan been ordered by Dr. Lyons neurology for her headache. I can order a short-term refill but should schedule with Dr. Lyons also. Next appointment scheduled 07/06/2023 Patient has been identified by name and date of : Yes Requested Prescriptions Pending Prescriptions Disp Refills naratriptan (AMERGE) 2.5 mg tablet 9 tablet 1 Sig: Take 1 tablet (2.5 mg) by mouth as needed for migraine headache (see administration instructions). 2.5 mg at onset of headache, may repeat in 4 hours if needed fluvoxaMINE (LUVOX) 100 mg tablet 90 tablet 1 Sig: Take 3 tablets by mouth once daily. LAST FILL. PLEASE SCHEDULE APPOINTMENT FOR FURTHER REFILLS. RX INSTRUCTIONS: Patient aware RX will be sent to pharmacy. No need to notify patient. Beena Cheema Pss documented in this encounter [facility] 06-21-2023 Miscellaneous Notes Spoke with [facility], the pharmacist will send me the prior auth for the Eletriptan by fax. Stefani Rangel NI PHONE Name of caller : Liliam Relationship to patient : Self Was permission obtained from patient ? Yes Patient identified by Name and Date of . ( Liliam Thompson, 1990). Yes Reason for Call : Patient called to ask about a referral from Dr. Lyons to another Headache specialist. FYI: Patient asked about her Eletriptan prior auth, I will call [facility] after 9:00 am to ask to send us the prior auth letter by fax. Number to return call [phone]. Stefani Rangel documented in this encounter [facility] 06-06-2023 Note [facility] 06-06-2023 History of Present illness Narrative Images from the original note were not included. This note was created using [employer]. Subjective Liliam Thompson is a 32 year old female with history of periodic fever syndrome. She developed upper right back pain 3 days ago with associated fever of 101 only at night. She has had mild cold symptoms the last couple weeks with intermittent rhinorrhea and congestion. She denies cough or injury. She started taking NSAIDs when the pain started Tuesday which has helped her pain immensely, but any time she takes antiinflammatories, it upsets her stomach. She now has burning pain in her sternal area and woke up with a sore throat when swallowing. The history is provided by the patient. Review of Systems Constitutional: Positive for fever. Negative for chills and fatigue. HENT: Positive for congestion and rhinorrhea. Negative for postnasal drip, sinus pressure and sinus pain. Eyes: Negative. Respiratory: Negative for cough, chest tightness and shortness of breath. Cardiovascular: Negative. Musculoskeletal: Positive for back pain and myalgias. Skin: Negative. Neurological: Negative. Objective BP 131/93 Pulse 111 Temp 36.4 C (97.6 F) Wt 120.7 kg (266 lb) LMP 12/31/2021 SpO2 98% BMI 51.95 kg/m Physical Exam Vitals and nursing note reviewed. Constitutional: General: She is not in acute distress. Appearance: Normal appearance. She is not ill-appearing. Eyes: Extraocular Movements: Extraocular movements intact. Pupils: Pupils are equal, round, and reactive to light. Cardiovascular: Rate and Rhythm: Normal rate and regular rhythm. Pulses: Normal pulses. Heart sounds: Normal heart sounds. No murmur heard. No friction rub. No gallop. Pulmonary: Effort: Pulmonary effort is normal. No respiratory distress. Breath sounds: Normal breath sounds. No stridor. No wheezing, rhonchi or rales. Chest: Chest wall: No tenderness. Musculoskeletal: Thoracic back: Tenderness present. No swelling, spasms or bony tenderness. Normal range of motion. Back: Skin: General: Skin is warm and dry. Capillary Refill: Capillary refill takes less than 2 seconds. Neurological: General: No focal deficit present. Mental Status: She is alert and oriented to person, place, and time. Mental status is at baseline. Cranial Nerves: No cranial nerve deficit. Motor: No weakness. Gait: Gait normal. ASSESSMENT/PLAN: 1. Upper back pain - ICD9: 724.5, ICD10: M54.9 (primary diagnosis) - XR CHEST 2V FRONTAL/LAT- will message with results. Will treat accordingly (patient can tolerate Medrol without stomach issues) 2. Other acute gastritis without hemorrhage - ICD9: 535.00, ICD10: K29.00 - D/c NSAID use - Start OTC antacid like Prilosec daily 3. Fever, unspecified fever cause - ICD9: 780.60, ICD10: R50.9 - Possibly from her periodic fever syndrome, but will r/o infection with: - XR CHEST 2V FRONTAL/LAT - COVID & INFLUENZA A/B NAAT, ROUTINE Patsy Juares PA-C documented in this encounter [facility] 06-06-2023 History of Present illness Narrative Radiology Service Progress Note PATIENT NAME: Liliam Thmopson DATE OF SERVICE: June 06, 2023 TIME: 9:07 AM PATIENT IDENTITY VERIFICATION COMPLETED USING TWO (2) IDENTIFIERS: Name and Date of confirmed by patient verbally. FALL SCREENING: Has the patient had 2 falls in the last year or 1 fall with injury or currently using an Ambulatory Assistive Device (Walker, Cane, Wheelchair, Crutches, etc.)? No PATIENT GENDER DATA: Female. status: Unknown status: NO. PATIENT RELEVANT IMPLANT DATA REVIEWED: Yes RADIOLOGY DEPARTMENT: General X-ray: Exam(s) Completed: Chest X-Ray PERIPHERAL IV DATA: Not applicable SIGNED BY: RT Shannon(R) June 06, 2023 9:07 AM documented in this encounter [facility] 06-06-2023 Note [facility] 05-28-2023 Note HNO ID: [id number] Author: Note, Interface Service: ? Author Type: ? Type: Progress Notes Filed: 05/28/2023 3:59 AM Note Text: Epic Scheduled Downtime: 05/28/2023 1:00:00 AM to 05/28/2023 1:28:00 AM [facility] 05-25-2023 Note [facility] 05-25-2023 History of Present illness Narrative This is an Express Care eVisit note for Liliam Thompson eVisit/Questionnaire reviewed The chief complaint for the visit - Patient presents with: Urinary Problem Recommendations/Treatment plan - Rx as below plus self care. See My Chart Message to patient. Recommendation for follow up - PRN The following approved medication requests have been transmitted electronically. Requested Prescriptions Signed Prescriptions Disp Refills nitrofurantoin monohydrate and macrocrystal (MACROBID) 100 mg capsule 10 capsule 0 Sig: Take 1 capsule by mouth two times a day for 5 days. 5 Minutes of time spent during this encounter. Gonzalez Reyes PA-C documented in this encounter [facility] 05-20-2023 Instructions Genaro Morales APRN.SPORTS TEACHER - 05/20/2023 8:18 AM EDT For POTS symptoms: Check your blood pressure and heart rate morning and evening. Consider increasing your atenolol from once daily to twice daily dosing. Alternatively you can take 1 atenolol daily, take a second dose if heart rate is elevated above 100. Hold atenolol for systolic blood pressure less than 100 or heart rate less than 60. Drink plenty of fluid, aim for 2 to 3 L daily. Liberalize your sodium intake (eat salty foods, add salt to food you are eating, add sports drinks or other beverage with electrolytes which include sodium) Wear compression socks when needing to remain seated or standing for prolonged periods. Elevate your feet when seated. Go to ER for any severe or concerning symptoms. For thyroid: Recheck lab work in 3 months. For headache: Reach out to your headache specialist and let them know that you have not been able to obtain Relpax due to insurance not covering. Take Toradol tablets [id number] for the next 2 to 5 days as needed for headache then discontinue. Take with food. You could additionally add [id number] Pepcid or omeprazole if needed for GI upset. documented in this encounter [facility] 05-20-2023 History of Present illness Narrative SUBJECTIVE: Shingrix Vaccine(1 of 2) Never done Pneumococcal Vaccine(2 - PCV) due on 05/15/2015 Covid-19 Vaccine(6 - Pfizer risk series) due on 09/22/2022 Influenza Vaccine(1) due on 04/15/2023 HPI Liliam Thompson is a 32 year old female. PMH significant for ACTIVE PROBLEM LIST Inappropriate Sinus Node Tachycardia Fibromyalgia Depression Anxiety Sprain of Lumbar Region Neurocirculatory Asthenia Vitamin D Deficiency Vomiting Nausea Obesity, Class Iii, Bmi 40-49.9 (Morbid Obesity) (Hcc) Numbness and Tingling Tremor of Unknown Origin Double Vision Maxwell (Obstructive Sleep Apnea) Migraine With Aura Muscle Twitching Bulimia Eating Disorder Thrombocytosis Recurrent Fever Periodic Fever Syndrome (Hcc) Pain in Joint, Multiple Sites Chronic Midline Low Back Pain Without Sciatica Immunosuppression (Hcc) Acute Left Ankle Pain Left Ankle Strain, Sequela Loose Body in Left Ankle Closed Nondisplaced Fracture of Navicular Bone of Left Foot Sprain of Anterior Talofibular Ligament of Left Ankle Sprain of Tibiofibular Ligament of Left Ankle Chronic Pain of Left Ankle Pots (Postural Orthostatic Tachycardia Syndrome) Panic Attacks Ptsd (Post-Traumatic Stress Disorder) Panic Disorder With Agoraphobia Seen by Dr Mae 2013, impression was neurocirculatory asthenia with vasodepressor syncope/vapors and no structural heart disease. She was continued on nadolol for symptomatic control of sinus tachycardia. As needed follow up. TTE 2013: Normal pumping action and no valvular disease or regional wall motion abnormalities. She was seen by headache specialist April 25, [address] Lyons. She noted headaches were worse with stopping Prozac. This was resumed at 10 mg, and increase to 20 mg after 1 month if needed. Noted could also increase Zonegran. Switch to Relpax from [facility]. She presented to [facility] yesterday with report of palpitations and lightheadedness. She reported palpitations that started acutely prior to arrival and had improved by the time she had gotten to the ER. Noted t likely to be multifactorial. Known history of POTS. Reported not eating and drinking well due to migraine headache. She felt improved after receiving medication and fluids in the ER. EKG showed sinus tachycardia with no significant ST changes. Negative troponins. Doubtful any underlying ACS. No signs of hypoglycemia or significant neck normal light abnormality or metabolic problem that would be causing the palpitations or tachycardia. TSH mildly elevated but not consistent with any thyroid storm. She was provided with medicine for headache and encouraged to drink plenty of fluids and was discharged home in improved status. Today reports headache continues, has been waxing and waning. She reports insurance has not covered Relpax so does not have a triptan to use at home. Has not yet contacted neurology office to let them know. Using propanolol : states no recent use Taking atenolol once daily currently. She reports sometimes her heart rate and blood pressure get too low when taking twice daily. Taking fluoxetine 10 mg daily, has not yet uptitrated dose. She reports drinking about 2 L daily. Reports elevating her feet when seated. Notes increased heart rate with position change and with exertion. Notes pre-syncopal sensation, no syncope. 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 Seen in neurology 2018 regarding POTS. She is concerned about EKG results in ER, noted abnormal. Interested in repeat. Considering cardiology follow-up. TSH elevated. TPO negative 2021. Notes family history of mother with thyroid nodules. Review of Systems Constitutional: Negative. Respiratory: Negative. Cardiovascular: Positive for palpitations. Neurological: Positive for dizziness, light-headedness and headaches. Objective BP 119/78 Pulse 91 Resp 16 Wt 122.5 kg (270 lb) LMP 12/31/2021 SpO2 97% BMI 52.73 kg/m Physical Exam Vitals and nursing note reviewed. Constitutional: Appearance: Normal appearance. HENT: Head: Normocephalic and atraumatic. Eyes: Conjunctiva/sclera: Conjunctivae normal. Neck: Thyroid: No thyromegaly. Vascular: Normal carotid pulses. No JVD. Cardiovascular: Rate and Rhythm: Normal rate and regular rhythm. Pulses: Carotid pulses are 2+ on the right side and 2+ on the left side. Radial pulses are 2+ on the right side and 2+ on the left side. Heart sounds: Normal heart sounds. Comments: HR ULN on exam Pulmonary: Effort: Pulmonary effort is normal. Breath sounds: Normal breath sounds. Abdominal: General: Bowel sounds are normal. Palpations: Abdomen is soft. Musculoskeletal: Right lower leg: No edema. Left lower leg: No edema. Skin: General: Skin is warm and dry. Neurological: General: No focal deficit present. Mental Status: She is alert and oriented to person, place, and time. ALLERGIES Allergen Reactions Latex, Natural Rubb* Hives Latex Hives Seasonal Allergies Unknown GRASSES, WEEDS AND RAGWEED VERIFIED BY SKIN TESTING Medication FLUoxetine (PROZAC) 10 mg capsule Take 1 capsule by mouth once daily. Can go up to 20 mg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 dysuria, gross hematuria, urinary frequency, urinary urgency, or incontinence. Breast: No breast lumps, nipple d/c, overlying skin changes, redness or skin retraction. Allergies and current medication updated:Yes EXAM: BP 124/76 Ht 5' 1 (1.55m) Wt 261 lb 12.8 oz (118.8kg) LMP 12/31/2021 BMI 49.49 kg/(m^2). GENERAL: pleasant, female in no apparent distress HEENT: Normocephalic and atraumatic NECK: Supple and full range of motion DERMATOLOGY: Normal and without lesions BREAST: soft, non-tender, symmetric, no dominant mass, normal nipple-areolar complex, no lymphadenopathy, no nipple discharge, and fibrocystic changes CHEST: Normal inspiratory effort ABDOMEN: soft, non-tender, and no masses PELVIC: external genitalia normal, normal Bartholin's glands, urethra, Claypool's glands, no vulvar lesions, no cervical lesions, good vaginal support, physiologic discharge present, normal appearing perineal body and perianal region, IUD strings not visible- BIMANUAL: uterus normal size, shape and consistency, no adnexal masses, non-tender, and no cervical motion tenderness RECTOVAGINAL: deferred. NEURO: alert and oriented x3,exam grossly non-focal EXTREMITIES: normal ASSESSMENT/PLAN: 1) Health maintenance: Pap done with HPV. HPV vaccine: completed series 2) Contraception: IUD. 3) STD screening: Accepted STD check for Gonorrhea and Chlamydia. 4) Follow up one year or sooner as needed- living in [place]- may transfer to [facility] periodontist Francoise Rowley APRN.CNM documented in this encounter [facility] 02-16-2023 Miscellaneous Notes Most recent Rheumatology visit: 12/03/2022 (with Silvia Tucker) Recent Office Visits - This Specialty 12/03/2022 Periodic fever syndrome (HCC) Rheumatology Silvia Tucker MD 03/24/2022 Periodic fever syndrome (HCC) Rheumatology Silvia Tucker MD 09/25/2021 Periodic fever syndrome (HCC) Rheumatology Silvia Tucker MD Upcoming Rheumatology Appointments - Next 365 Days Visit Type Date Time Department VIDEO SPEC EST 06/01/2023 2:00 PM RHEU MAIN A50 CBC: CBC Latest Ref Rng & Units 03/24/2022 12/03/2022 WBC 3.70 - 11.00 k/uL 10.16 6.85 HEMOGLOBIN 11.5 - 15.5 g/dL 12.9 13.7 HEMOGLOBIN, TREVOR 11.5 - 15.5 g/dL - - HEMATOCRIT 36.0 - 46.0 % 40.7 42.4 PLATELETS 150 - 400 k/uL 423(H) 466(H) ABS NEUT (ANC) 1.45 - 7.50 k/uL 5.65 3.92 ABS NEUT, TREVOR 1.45 - 7.50 k/uL - - ABS LYMP, TREVOR 1.00 - 4.00 k/uL - - ABS LYMPH 1.00 - 4.00 k/uL 3.36 2.19 Vitamin D: None on file in the last 6 months LFT: None on file in the last 6 months Hepatic Function: Creatinine: Creatinine Latest Ref Rng & Units 03/24/2022 12/03/2022 CREAT 0.58 - 0.96 mg/dL 0.62 0.61 ESR/CRP: ESR, WSR Latest Ref Rng & Units 03/24/2022 12/03/2022 WSR 0 - 20 mm/hr 2 5 SED RATE, TREVOR 0 - 20 mm/hr - - CRP Latest Ref Rng & Units 03/24/2022 12/03/2022 CRP <0.9 mg/dL <0.3 <0.3 Uric Acid: None on file in the last 6 months Open Standing (Multiple Instance) Lab Orders None Open Future (Single Instance) Lab Orders None Requested Prescriptions Pending Prescriptions Disp Refills Needle, Disp, 27 G (BD DISPOSABLE NEEDLES) 27 gauge x 1/2 ndle 1 Each 11 Sig: USE DIRECTED WITH ILARIS Needle, Disp, 18 G (BD REGULAR BEVEL NEEDLES) 18 gauge x 1 1/2 1 Each 11 Sig: USE DIRECTED WITH ILARIS Syringe, Disposable, (B-D SYRINGE LUER-RAJI 1CC) 1 mL 1 Each 11 Sig: USE DIRECTED WITH ILARIS canakinumab, PF, (ILARIS, PF,) 150 mg/mL injection 1 mL 11 Sig: INJECT 150 MG (1 ML) UNDER THE SKIN EVERY 4 WEEKS Thank you, Tangela Murillo RN Patient has new insurance This requires new prescriptions sent to the new pharmacy Please add a note for the pharmacy that the patient administers this her self at home. This should be sent to the patient. documented in this encounter [facility] 02-16-2023 Miscellaneous Notes Please submit prior auth for Ilaris New insurance information [facility] [id number] PCN [id number] GRP [id number] Please call patient with any questions. Once submitted please send a [email or web address] message to the patient. Thank you documented in this encounter [facility] 02-07-2023 History of Present illness Narrative This note was created using Wengoriter. Subjective Liliam Thompson is a 32 year old female. HPI 32-year-old female presents for left ear pain and sore throat. Patient has had left ear pain and sore throat for the past few days. She denies any cough, fevers. No sick contacts. No other complaints. PAST MEDICAL HISTORY Diagnosis Date Anxiety Angeli Constantino Asthmatic bronchitis recurrent episodes since pneumonia fall and winter of 2011 Depression Angeli Constantino Epigastric abdominal pain Fibromyalgia Dr. 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 @[facility] Migraine with aura visual aura; diagnosed with complex migraines Nausea MAXWELL (obstructive sleep apnea) 03/10/2016 PMH - PAST MEDICAL HISTORY OF age 3 1/2 febrile seizures-with varicella PMH - PAST MEDICAL HISTORY OF 6-7 months dislocated elbow PMH - PAST MEDICAL HISTORY OF menarche age 14 years PMH - PAST MEDICAL HISTORY OF 1998 normal color vision POTS (postural orthostatic tachycardia syndrome) 04/23/2018 Rectal bleeding Sinus arrhythmia Snoring Suicide attempt by acetaminophen overdose ([facility]) 06/2014 Syncope Vomiting PAST SURGICAL HISTORY Procedure Laterality Date COLONOSCOPY 05/15/2011 COLONOSCOPY FLX DX W/COLLJ SPEC WHEN PFRMD 07/03/2014 EGD TRANSORAL BIOPSY SINGLE/MULTIPLE 07/03/2014 MIRENA IUD 12/04/2021 Placed in office- Due for removal 11/2028 ALLERGIES Latex, Natural Rubber; Latex; and Seasonal Allergies MEDICATIONS colchicine 0.6 mg tablet Take 1 tablet by mouth twice daily. Needle, Disp, 27 G (BD DISPOSABLE NEEDLES) 27 gauge x 1/2 ndle USE DIRECTED WITH ILARIS Needle, Disp, 18 G (BD REGULAR BEVEL NEEDLES) 18 gauge x 1 1/2 USE DIRECTED WITH ILARIS Syringe, Disposable, (B-D SYRINGE LUER-RAJI 1CC) 1 mL USE DIRECTED WITH ILARIS montelukast (SINGULAIR) 10 mg tablet Take 1 tablet by mouth daily at bedtime. canakinumab, PF, (ILARIS, PF,) 150 mg/mL injection INJECT 150 MG (1 ML) UNDER THE SKIN EVERY 4 WEEKS fluvoxaMINE (LUVOX) 100 mg tablet Take 3 tablets by mouth once daily. albuterol HFA (PROAIR HFA) 90 mcg/actuation inhaler Inhale 2 Puffs as instructed every 4 hours as needed. zonisamide (ZONEGRAN) 100 mg capsule Take 3-4 caps at bedtime. naratriptan (AMERGE) 2.5 mg tablet Take 1 tablet by mouth as needed for migraine headache (see administration instructions). 2.5 mg at onset of headache, may repeat in 4 hours if needed Needle, Disp, 25 G (BD DISPOSABLE NEEDLES) 25 gauge x 5/8 ndle 1 Syringe every 4 weeks. Syringe with Needle, Disp, (BD TUBERCULIN SYRINGE) 1 mL 27 x 1/2 every 4 weeks. propranolol (INDERAL) 10 mg tablet Take 1-2 tablets by mouth twice daily as needed (palpitations or tremors). atenolol (TENORMIN) 25 mg tablet Take 1 tablet by mouth twice daily. as directed levonorgestrel (MIRENA) 20 mcg/24 hours (7 yrs) 52 mg IUD 1 Each by INTRAUTERINE route as directed. levocetirizine 5 mg tablet Take 5 mg by mouth as needed. azelastine (ASTELIN) 0.1% nasal spray Use 2 Sprays in each nostril twice daily as needed. triamcinolone acetonide (NASACORT) 55 mcg nasal inhaler Use 2 Sprays in the nose once daily. cholecalciferol, Vitamin D3, (VITAMIN D3) 1,250 mcg (50,000 unit) cap capsule Take 1 capsule by mouth two times a week. (Patient not taking: Reported on 12/03/2022) FAMILY HISTORY Problem Relation Age of Onset Emphysema Maternal Grandfather Heart Maternal Grandfather other (chf) Maternal Grandfather Arthritis Mother Systemic Lupus (SLE) Coronary Artery Disease Father other (Familial idiopathic pulmonary fibrosis) Father 65 Not progressing at this time (2017) Psoriasis Brother Diabetes Maternal Grandmother Hypertension Maternal Grandmother Stroke Maternal Grandmother Heart Paternal Grandfather other (Familial IPF) Paternal Grandfather Arthritis Sister Lupus Rheumatologic disease Maternal Aunt RA Social History Tobacco Use Smoking status: Never Smokeless tobacco: Never Tobacco comments: Father and Mother smoked in home. Stopped 03/2013. Vaping Use Vaping Use: Never used Substance Use Topics Alcohol use: Yes Comment: occiasionally Drug use: No Review of Systems Constitutional: Negative for chills and fever. HENT: Positive for ear pain and sore throat. Negative for congestion. Respiratory: Negative for cough and shortness of breath. Cardiovascular: Negative for chest pain. Gastrointestinal: Negative for diarrhea and vomiting. Objective LMP 12/31/2021 Physical Exam Vitals and nursing note reviewed. Constitutional: General: She is not in acute distress. Appearance: Normal appearance. She is not toxic-appearing. HENT: Right Ear: Tympanic membrane and ear canal normal. Left Ear: Ear canal normal. A middle ear effusion is present. Tympanic membrane is erythematous. Nose: Nose normal. Mouth/Throat: Mouth: Mucous membranes are moist. Pharynx: Posterior oropharyngeal erythema present. No oropharyngeal exudate. Tonsils: No tonsillar exudate. 2+ on the right. 2+ on the left. Eyes: Conjunctiva/sclera: Conjunctivae normal. Cardiovascular: Rate and Rhythm: Normal rate and regular rhythm. Pulmonary: Effort: Pulmonary effort is normal. Breath sounds: Normal breath sounds. Neurological: Mental Status: She is alert. Assessment and Plan ASSESSMENT/PLAN: 1. Sore throat - ICD9: 462, ICD10: J02.9 (primary diagnosis) - suspect viral - Alere Strep Test negatuve, no culture pending - Discussed supportive care treatment with fluids, rest and analgesia. 2. Acute otitis media, left - ICD9: 382.9, ICD10: H66.92 - Will begin treatment with Amoxicillin for 7 days - Supportive care with plenty of fluids, rest, and analgesia prn. Diagnosis and treatment plan were discussed and questions were answered to the patient's satisfaction. Pt acknowledged understanding of concepts and follow up plan. Specific signs and symptoms that would indicate the need for higher level of care were discussed in detail warranting prompt ER evaluation. KILO Drummond documented in this encounter [facility] 01-12-2023 Miscellaneous Notes Submitted PA to holly and submitted to tri on 01/12/23 @ 2pm documented in this encounter [facility] 12-22-2022 Miscellaneous Notes Addressed, seen with PCP on 12/17/2022 documented in this encounter [facility] 12-17-2022 History of Present illness Narrative VIRTUAL VISIT PROGRESS NOTE This is a virtual visit using Garlik video visit. It required patient-provider interaction for the medical decision making as documented below. I have communicated my name and active licensure. The patient's identity and physical location were verified at the time of this visit. Either the patient or their legal contact center representative has been informed of the risks and benefits of -- and alternatives to -- treatment through a remote evaluation and consents to proceed with the evaluation remotely. Liliam Thompson is a 32 year old female seen for completing form for [employer]. Accommodations were denied and was told they would send another form for me to complete to verify still needs same accommodations. They told her would get intermittent leave for up to 2 hour block of time per week for migraines. 3 doctor's appointments per 3 months (up to 4 hours per appointment. Was told they will not do flex time. No accommodations for if would be late for illness. Corrective action plan made but not really helpful for the issues such as when bowel issues prevent her from coming in. Told by work that she cannot use term never for things like lifting more than 45 pounds, squatting, kneeling, etc. but she is not able to do these things. Needs documented from me that the accommodations they offered are NOT adequate. This would trigger action to be in transitional employment to get another job within the organization. Also need to verify that she cannot communicate with them when she is in the middle of a flare up, such as when sitting in the bathroom with bowel issues. Therapist will also be writing for medical leave till they can give her accommodations or transitional employment due to increased anxiety and PTSD issues with insomnia due to stressors due to above. Needed clarification on panic attacks--okay to defer to counselor. Apparently they do not understand agoraphobia. They also wanted specific temps for issues with intolerance for hot and cold. Just needs to rest in controlled temperature to help. Work would not agree to starting at a different time so would not need to do flex time in AM. HISTORY REVIEWED (electronic chart updated): PAST MEDICAL HISTORY Diagnosis Date Anxiety Angeli Constantino Asthmatic bronchitis recurrent episodes since pneumonia fall and winter Depression Angeli Constantino Epigastric abdominal pain Fibromyalgia Dr. 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 @[facility] Migraine with aura visual aura; diagnosed with complex migraines Nausea MAXWELL (obstructive sleep apnea) 03/10/2016 PMH - PAST MEDICAL HISTORY OF age 1 1/2 febrile seizures-with varicella PMH - PAST MEDICAL HISTORY OF 6-7 months dislocated elbow PMH - PAST MEDICAL HISTORY OF menarche age 14 years PMH - PAST MEDICAL HISTORY OF 1998 normal color vision POTS (postural orthostatic tachycardia syndrome) 04/23/2018 Rectal bleeding Sinus arrhythmia Snoring Suicide attempt by acetaminophen overdose ([facility]) 06/2014 Syncope Vomiting PAST SURGICAL HISTORY Procedure Laterality Date COLONOSCOPY 05/15/2011 COLONOSCOPY FLX DX W/COLLJ SPEC WHEN PFRMD 07/03/2014 EGD TRANSORAL BIOPSY SINGLE/MULTIPLE 07/03/2014 MIRENA IUD 12/04/2021 Placed in office- Due for removal 11/2028 FAMILY HISTORY Problem Relation Age of Onset Emphysema Maternal Grandfather Heart Maternal Grandfather other (chf) Maternal Grandfather Arthritis Mother Systemic Lupus (SLE) Coronary Artery Disease Father other (Familial idiopathic pulmonary fibrosis) Father 65 Not progressing at this time (2016) Psoriasis Brother Diabetes Maternal Grandmother Hypertension Maternal Grandmother Stroke Maternal Grandmother Heart Paternal Grandfather other (Familial IPF) Paternal Grandfather Arthritis Sister Lupus Rheumatologic disease Maternal Aunt RA Social History Tobacco Use Smoking status: Never Smokeless tobacco: Never Tobacco comments: Father and Mother smoked in home. Stopped 03/2013. Vaping Use Vaping Use: Never used Substance Use Topics Alcohol use: Yes Comment: occiasionally Drug use: No Current Outpatient Medications Medication Sig colchicine 0.6 mg tablet Take 1 tablet by mouth twice daily. Needle, Disp, 27 G (BD DISPOSABLE NEEDLES) 27 gauge x 1/2 ndle USE DIRECTED WITH ILARIS Needle, Disp, 18 G (BD REGULAR BEVEL NEEDLES) 18 gauge x 1 1/2 USE DIRECTED WITH ILARIS Syringe, Disposable, (B-D SYRINGE LUER-RAJI 1CC) 1 mL USE DIRECTED WITH ILARIS montelukast (SINGULAIR) 10 mg tablet Take 1 tablet by mouth daily at bedtime. canakinumab, PF, (ILARIS, PF,) 150 mg/mL injection INJECT 150 MG (1 ML) UNDER THE SKIN EVERY 4 WEEKS fluvoxaMINE (LUVOX) 100 mg tablet Take 3 tablets by mouth once daily. albuterol HFA (PROAIR HFA) 90 mcg/actuation inhaler Inhale 2 Puffs as instructed every 4 hours as needed. zonisamide (ZONEGRAN) 100 mg capsule Take 3-4 caps at bedtime. naratriptan (AMERGE) 2.5 mg tablet Take 1 tablet by mouth as needed for migraine headache (see administration instructions). 2.5 mg at onset of headache, may repeat in 4 hours if needed Needle, Disp, 25 G (BD DISPOSABLE NEEDLES) 25 gauge x 5/8 ndle 1 Syringe every 4 weeks. Syringe with Needle, Disp, (BD TUBERCULIN SYRINGE) 1 mL 27 x 1/2 every 4 weeks. propranolol (INDERAL) 10 mg tablet Take 1-2 tablets by mouth twice daily as needed (palpitations or tremors). atenolol (TENORMIN) 25 mg tablet Take 1 tablet by mouth twice daily. as directed levonorgestrel (MIRENA) 20 mcg/24 hours (7 yrs) 52 mg IUD 1 Each by INTRAUTERINE route as directed. levocetirizine 5 mg tablet Take 5 mg by mouth as needed. azelastine (ASTELIN) 0.1% nasal spray Use 2 Sprays in each nostril twice daily as needed. triamcinolone acetonide (NASACORT) 55 mcg nasal inhaler Use 2 Sprays in the nose once daily. cholecalciferol, Vitamin D3, (VITAMIN D3) 1,250 mcg (50,000 unit) cap capsule Take 1 capsule by mouth two times a week. (Patient not taking: Reported on 12/03/2022) No current facility-administered medications for this visit. ALLERGIES Allergen Reactions Latex, Natural Rubb* Hives Seasonal Allergies Unknown GRASSES, WEEDS AND RAGWEED VERIFIED BY SKIN TESTING REVIEW OF SYSTEMS: As noted in HPI PHYSICAL EXAMINATION: VIDEO EXAM: (if completed, performed via video enabled technology) GENERAL: alert and appropriate, in no distress, well-hydrated, well nourished, and happy, smiling, interactive HEAD: normocephalic, no abnormality or lesion noted EYES: no injection and visual acuity is grossly normal RESPIRATORY: breathing non-labored Encounter Diagnosis ICD-10-CM 1. PTSD (post-traumatic stress disorder) F43.10 2. Migraine with aura and without status migrainosus, not intractable G43.109 3. POTS (postural orthostatic tachycardia syndrome) G90.A 4. Periodic fever syndrome (HCC) M04.1 5. Pain in joint, multiple sites M25.50 6. Panic disorder with agoraphobia F40.01 7. Irritable bowel syndrome with both constipation and diarrhea K58.2 Can get bout of diarrhea in AM that prevents her from being on time to work.Not frequent but work not accommodating to fact might not be able to call right away Above issues addressed with patient. Patient involved in shared decision making for management of medical issues. History and medications reviewed. Discussed form from [place] and work denied all accommodations requested. Discussed the accommodations they were willing to offer, but what patient states they were going to fax me, does not sound like they would be adequate. Not having the ability to come in later if had a flare up of IBS just one example. They apparently want her to be able to lift much more than she is able to and will not accept chronic limitations. Will address form when received.Have her verify what is written for the form before sending back to [facility] for work accommodations. There are no Patient Instructions on file for this visit. I spent a total of 42 minutes on the date of the service which included preparing to see the patient, [id number] patient care, completing clinical documentation, performing a medically appropriate examination, and counseling and educating the patient/family/caregiver Faustina Carcamo MD documented in this encounter [facility] 12-16-2022 Miscellaneous Notes Can be addressed at her visit tomorrow. Spoke with patient and she is specifically asking if you had addressed in a letter for her work her needed accommodations as below: (see my chart 10/19/22) La Dr. Carcamo! 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 Change in hours would be necessarily as-needed, but notification of change would occur within 30 minutes of need or start of work day - Additional in-person work environment changes, such as availability of chair, ergonomic seating, and a foot stool under the desk Pt calling to get a copy of forms that were faxed on 11/17/22. See [employer] message from pt on 10/19/22 Please send copy thru Garlik if possible. If not please call pt. She would also like to be called when this is sent to her [employer]. Loulou Blue LPN documented in this encounter [facility] 12-16-2022 Miscellaneous Notes Noted, should be ok. Patient calling said new work accomodation form is coming from [employer] on 12/16. Patient aware PCP is not in office today. Patient said she wants PCP to not complete form until her appt with PCP on Tuesday. She has things she needs to discuss with her. Please advise documented in this encounter [facility] 12-09-2022 Miscellaneous Notes Done Pt calls states needing letter for work stating she is taking a medication colchicine that causes attacks of diarrhea for her. She works from home and this happened and was late to an on line meeting. So her boss wants a letter stating that this medicine she is on causes bouts of diarrhea and there may be times dure to this that will not be able to contact anyone due to being in the restroom. Asking that it be sent to her my chart. Needs dated and signed. documented in this encounter [facility] 12-03-2022 History of Present illness Narrative MD Liliam Lobato December 03, 2022 Referring Provider: PCP: Faustina Carcamo MD Chief Complaint: Patient presents with: Recheck Background Rheumatologic History: Previously seen by multiple providers in our division From Dr. Lucero - Started having fevers in [place]/Senior year of high school. [age]yo Was later diagnosed with inflammatory arthritis. [id number] Was treated with hydroxychloroquine + methotrexate While on therapy, she did not have fevers, but did have feeling general malaise June 2013- stopped methotrexate and in Summer had recurrence of symptoms. She had symptoms of fevers, dizziness, nasuea, wobbly, joint pain. Fevers initially started at age 16-17. They would get as high as 101.5 max but are generally closer to 100.5 range. Fevers on average last around 12 hours and would start in the evening. Now, Her symptoms are more continuous and persist throughout the day. Her symptoms would last for approx 1 week at a time before abating on their own and would recur every few weeks. Fevers improve with prednisone. Fevers seem to be seasonal- do not occur in Winter. Has continued to have symptoms of fevers. She has fevers to 101F. Fevers having improved in severity but have become more frequent. Symptoms improve with colchicine and steroids. She has associated night sweats. Has itchiness of the eyes. This has been worse more recently. Continues to have chest pain- has history of costochondritis- has some sprading to side of chest, when she tries to sleep at [facility] she has difficulty laying down. If she lays on the side this seems to make it worse. Has some tenderness over the sternum as well. This slightly improves with ilaris. Pain worsens with deep breathing. She has some pain in the back as well. Joint pain has gradually gotten worse- Right now her biggest issue is migratory pain. Her knees will hurt for a couple of weeks, then progress to her hands. For awhile would have swellign of the knees. Mobic seems to help symptoms. Now hands are worse. Pain is achign type pain, particularly the right thumb is more painful, especially in the morning. The areas that get more sweollen are the wrist and knees. Current Rheum treatment: -Canakinumab 150mg SQ monthly: 09/2019 - current -Colchicine 0.6mg daily: 03/2018 - current - Prednisone prn for flares as well. (20mg x 3, then decrease by 5 mg theresa 3 days until off) Past treatments: Past Rheumatological Treatment History -Methtotrexate: 2009 - Jun 2013 -Hydroxychloroquine: 2009 - 2012 -Prednisone dose packs intermittent - 6 times/year (20mg tapered down) -IM steroids q3-4 months -Prednisone 2012 - 6 week long tapers - q 2-3 months -Prednisone 2012 - q 3-4 months -Prednisone - last Jul 2020 - 20mg taper by 5mg every 3 days -Anakinra: 07/2018 - 08/2019 (D/C due to ineffectiveness, recurrent flares and injection site reactions) Plan at [facility]: Assessment and Plan: 30 year old female is evaluated in the Rheumatology Clinic for an undifferentiated periodic fever syndrome. 1. Periodic fever syndrome (HCC) - ICD9: 277.31, ICD10: M04.1 -Chronic intermittent fevers since age 18 with migrating arthralgias (initially diagnosed as inflammatory arthritis), costochondritis, rashes, sore throat, with persistently elevated inflammatory markers. -Unclear etiology - previously evaluated by hematology and ID with no e/o malignancy or infection. -No genetic testing done for periodic fever as denied by insurance -Negative work up for other autoimmune disease other than low titer positive MILLI -Dramatic response to IL1 inhibitors (Canakinumab better than Anakinra), colchicine, and prednisone PRN -Continue current regimen as above -Check labs today and when she has a flare 2. Chronic bilateral low back pain without sciatica - ICD9: 724.2, 338.29, ICD10: M54.5, G89.29 -Patient has some features of an inflammatory back pain as well as some entheseal findings. She has a strong family history of psoriasis and an indeterminate HLA B27 -Normal SI joint imaging previously however may consider a repeat MRI in the future. Discussed again today but deferred -Continue Meloxicam as needed -Recommend physical therapy 3. 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 Immunosuppression (HCC) - ICD9: 279.9, ICD10: D84.9 -Patient is on immunomodulatory therapy and requires regular monitoring of blood work -Respective labs have been ordered and patient understands that medications cannot be safely prescribed without reviewing the labs. I first saw her 06/12/21 She has been on Ilaris and colchicine 0.6 mg since September 2019. Since then, she has had 3 episodes of significant flares that were aborted by short course of steroids. She also complains of intermittent low-grade fever, oral ulcers and joint pain. No injection site reaction with Ilaris. I increased the dose of her colchicine to twice daily F/U 09/25/21 Overall, she is doing better with colchicine twice daily as this is her only flare so far. I would continue the current combination of Ilaris and colchicine twice daily. F/U 03/24/22 In a flare right now. I give her a short course of low-dose steroid to help aborting the flare. If this does not work or flares becomes more frequent, I will consider increasing the loss of her Ilaris to 300 mg. Interim History: Patient returns for follow up, last visit 06/12/2021. She changed jobs and was unable to get ilaris covered for 2 months (June and July). Her periodic fever syndrome has been acting up since then. She has more fatigue, joint pain and swelling. She has been back on ilaris since August and has been doing better with less pain and fatigue. She has a typical flare once in October it was easily aborted by short course of prednisone. She also caught flu-like viral illness in July. PAST MEDICAL HISTORY Diagnosis Date Anxiety Kaitelyn Vira Asthmatic bronchitis recurrent episodes since pneumonia fall and winter of 2011 Depression Angeli Constantino Epigastric abdominal pain Fibromyalgia Dr. 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 @[facility] Migraine with aura visual aura; diagnosed with complex migraines Nausea MAXWELL (obstructive sleep apnea) 03/10/2016 PMH - PAST MEDICAL HISTORY OF age 1 1/2 febrile seizures-with varicella PMH - PAST MEDICAL HISTORY OF 6-7 months dislocated elbow PMH - PAST MEDICAL HISTORY OF menarche age 14 years PMH - PAST MEDICAL HISTORY OF 1997 normal color vision POTS (postural orthostatic tachycardia syndrome) 04/23/2018 Rectal bleeding Sinus arrhythmia Snoring Suicide attempt by acetaminophen overdose ([facility]) 06/2014 Syncope Vomiting PAST SURGICAL HISTORY Procedure Laterality Date COLONOSCOPY 05/15/2011 COLONOSCOPY FLX DX W/COLLJ SPEC WHEN PFRMD 07/03/2014 EGD TRANSORAL BIOPSY SINGLE/MULTIPLE 07/03/2014 MIRENA IUD 12/04/2021 Placed in office- Due for removal 11/2028 Social History Tobacco Use Smoking status: Never Smokeless tobacco: Never Tobacco comments: Father and Mother smoked in home. Stopped 03/2013. Vaping Use Vaping Use: Never used Substance Use Topics Alcohol use: Yes Comment: occiasionally Drug use: No Health Maintenance HPV TESTING due on 2022 Immunization History Administered Date(s) Administered COVID-19 original vaccine, age 12+ yr, monovalent (BabyFirstTV - PURPLE TOP) 11/01/2020 04/06/2021 COVID-19 vaccine, age 12+ yr, bivalent (GetMyRx-SalesLoftNTECH) 07/28/2022 Haemophilus influenzae b (HbOC) vaccine, 4-dose series (HIBTITER) 1992 02/17/1993 04/15/1993 10/23/1994 TD Adult 04/02/2005 chicken pox (disease) 04/06/1994 diphtheria tetanus pertussis (DTP) vaccine 1992 02/17/1993 04/15/1993 diphtheria tetanus pertussis (DTaP) vaccine, pediatric (INFANRIX) 10/23/1994 03/17/1998 hepatitis A (HepA) vaccine, unspecified formulation 03/17/2011 hepatitis B (HepB) vaccine, 3-dose series, age 0 yr - 19 yr (ENGERIX B-PEDS, RECOMBIVAX HB-PEDS) 04/02/2005 05/31/2005 04/04/2006 human papillomavirus (HPV4) vaccine, quadrivalent (GARDASIL) 05/09/2007 06/14/2007 01/14/2010 influenza (IIV3) vaccine, age 3+ yr, trivalent (AFLURIA, FLULAVAL, FLUVIRIN, FLUZONE) 05/15/2014 04/06/2021 influenza (IIV4) vaccine, age 6 mo - 64 yr, quadrivalent (AFLURIA, FLULAVAL, FLUZONE) 06/25/2016 04/27/2017 06/19/2018 06/20/2019 influenza (IIV4) vaccine, age 6 mo - 64 yr, quadrivalent, PF (AFLURIA, FLUARIX, FLULAVAL, FLUZONE) 04/25/2020 04/06/2021 07/20/2022 influenza vaccine, unspecified formulation 06/19/2013 measles mumps rubella (MMR) vaccine (M-M-R II, PRIORIX) 02/02/1994 03/17/1998 meningococcal (MenACWY-D) vaccine, quadrivalent (MENACTRA) 04/15/2011 meningococcal (MenACYW) vaccine, quadrivalent, unspecified formulation 04/02/2005 pneumococcal (PPV23) vaccine, 23 valent (PNEUMOVAX 23) 05/15/2014 poliovirus (OPV) vaccine, trivalent, live, oral (ORIMUNE) 1992 02/17/1993 10/23/1994 03/17/1998 poliovirus vaccine, unspecified formulation 04/06/1994 tetanus diphtheria (Td) vaccine, adult, non-adsorbed 04/02/2005 tetanus diphtheria pertussis (Tdap) vaccine, age 7+ yr (ADACEL, BOOSTRIX) 03/17/2011 03/08/2019 tuberculin skin test (TST-PPD), purified protein derivative, intradermal 03/17/2011 varicella (ROXI) vaccine (VARIVAX) 04/06/1994 Current Outpatient Medications Medication Sig Dispense Refill Needle, Disp, 27 G (BD DISPOSABLE NEEDLES) 27 gauge x 1/2 ndle USE DIRECTED WITH ILARIS 1 Each 11 Needle, Disp, 18 G (BD REGULAR BEVEL NEEDLES) 18 gauge x 1 1/2 USE DIRECTED WITH ILARIS 1 Each 11 Syringe, Disposable, (B-D SYRINGE LUER-RAJI 1CC) 1 mL USE DIRECTED WITH ILARIS 1 Each 11 montelukast (SINGULAIR) 10 mg tablet Take 1 tablet by mouth daily at bedtime. 90 tablet 3 canakinumab, PF, (ILARIS, PF,) 150 mg/mL injection INJECT 150 MG (1 ML) UNDER THE SKIN EVERY 4 WEEKS 1 mL 11 fluvoxaMINE (LUVOX) 100 mg tablet Take 3 tablets by mouth once daily. 90 tablet 2 albuterol HFA (PROAIR HFA) 90 mcg/actuation inhaler Inhale 2 Puffs as instructed every 4 hours as needed. 18 g 1 zonisamide (ZONEGRAN) 100 mg capsule Take 3-4 caps at bedtime. 120 capsule 11 naratriptan (AMERGE) 2.5 mg tablet Take 1 tablet by mouth as needed for migraine headache (see administration instructions). 2.5 mg at onset of headache, may repeat in 4 hours if needed 9 tablet 11 Needle, Disp, 25 G (BD DISPOSABLE NEEDLES) 25 gauge x 5/8 ndle 1 Syringe every 4 weeks. 2 Each 12 Syringe with Needle, Disp, (BD TUBERCULIN SYRINGE) 1 mL 27 x 1/2 every 4 weeks. 2 Each 12 propranolol (INDERAL) 10 mg tablet Take 1-2 tablets by mouth twice daily as needed (palpitations or tremors). 30 tablet 5 atenolol (TENORMIN) 25 mg tablet Take 1 tablet by mouth twice daily. as directed 180 tablet 3 levonorgestrel (MIRENA) 20 mcg/24 hours (7 yrs) 52 mg IUD 1 Each by INTRAUTERINE route as directed. 1 Each 0 levocetirizine 5 mg tablet Take 5 mg by mouth as needed. azelastine (ASTELIN) 0.1% nasal spray Use 2 Sprays in each nostril twice daily as needed. 30 mL 11 triamcinolone acetonide (NASACORT) 55 mcg nasal inhaler Use 2 Sprays in the nose once daily. colchicine 0.6 mg tablet Take 1 tablet by mouth twice daily. 180 tablet 3 cholecalciferol, Vitamin D3, (VITAMIN D3) 1,250 mcg (50,000 unit) cap capsule Take 1 capsule by mouth two times a week. (Patient not taking: Reported on 12/03/2022) 32 capsule 0 No current facility-administered medications for this visit. ALLERGIES Allergen Reactions Latex, Natural Rubb* Hives Seasonal Allergies Unknown GRASSES, WEEDS AND RAGWEED VERIFIED BY SKIN TESTING Physical Exam: BP 132/88 Pulse 110 Wt 262 lb 1.6 oz (118.9kg) LMP 12/31/2021 General: Not pale, no jaundice, not in acute distress Head: Normocephalic, atraumatic Eyes: No redeye, no discharge ENT: No oral/nasal ulcer Neck: No lymphadenopathy Lungs: Normal breath sound, no adventitious sound Abdomen: Soft, not tender CV: Normal S1 S2, no murmur, no rub, pulse regular Skin: No rash, no malar rash, no telangiectasia, no pitting nail/onycholysis, no gross periungual telangiectasia Neuro: Grossly intact, motor power 5 all Joints No active synovitis Impression: 1. Periodic fever syndrome 2. High risk medication use She did worse with she was unable to get the medication. Fortunately, she has been back on ilaris since August and has been doing better. Her physical exam is pretty much unremarkable today. I will repeat all of her blood works and inflammatory markers again to ensure that her disease is not active. If it is still active, I may need to increase the dose of ilaris to 300 mg. I discussed with her that if that is the case, I will reach out to her. If she does not hear from, it means that I want him to continue ilaris 150 mg along with colchicine. Recommendations/Plan Plan discussed with patient Return Visit: Virtual follow-up visit June 01 at 2 PM I spent a total of 40 minutes on the date of the service which included preparing to see the patient, [id number] patient care, completing clinical documentation, obtaining and/or reviewing separately obtained history, performing a medically appropriate examination, counseling and educating the patient/family/caregiver, and ordering medications, tests, or procedures. Silvia Tucker MD Referring Provider: PCP: Faustina Carcamo MD Answers submitted by the patient for this visit: Review of Systems Rheumatology (Submitted on 12/03/2022) Fever : No Recent Unintentional Weight Change: No Eye Pain: Yes Eye Redness: Yes Vision Disturbance: Yes Eye Dryness: No Nose Bleeds: No Sores in your Mouth: No Trouble Swallowing: Yes Dry Mouth: No Chest Pain: Yes Leg Swelling: No A Cough: Yes Blood when you Cough: No Shortness of Breath: No Pain with Breathing: Yes Heartburn: No Abdominal Pain: Yes Diarrhea: Yes Black Tarry Stools: No Pain or Burning with Urination: No Joint Pain or Stiffness: Yes Muscle Weakness: No Muscle Aches: Yes Joint Swelling: Yes Morning Stiffness in Joints: Yes A Rash: No Skin Color Changes: No Hair Loss: Yes Nail Changes: No Headaches: Yes Numbness: Yes Memory Loss: No Swollen Glands: Yes documented in this encounter [facility] 11-17-2022 Miscellaneous Notes Accomodation substantiation forms signed by Dr. Carcamo and faxed to [phone], conchis Butts. Beena Kate MA documented in this encounter [facility] 11-10-2022 History of Present illness Narrative VIRTUAL VISIT PROGRESS NOTE This is a virtual visit using [employer] video visit. It required patient-provider interaction for the medical decision making as documented below. I have communicated my name and active licensure. The patient's identity and physical location were verified at the time of this visit. Either the patient or their legal contact center representative has been informed of the risks and benefits of -- and alternatives to -- treatment through a remote evaluation and consents to proceed with the evaluation remotely. Liliam Thompson is a 32 year old female seen for: costochondritis(3weeks). Upper left chest has been hurting. In cartilage area. Hurts worse at night when laying down. Hurts to lay down on left side. Tenderness near sternum. No worse with activity. About 2.5 weeks. Tried Advil and Tylenol. Helps just a little. Cold and heat have helped. Heat at work and cold at home. Not as severe as when needed Toradol shot 2018. Had a recent flare with fevers but not real\ramin to chest wall pain and tenderness--the fevers resolved. No respiratory infection symptoms now aside from the resolving cough the past 3 months. Pain along sternum about the same as before to improved. HISTORY REVIEWED (electronic chart updated): PAST MEDICAL HISTORY Diagnosis Date Anxiety Melbashannanamarilis Constantino Asthmatic bronchitis recurrent episodes since pneumonia fall and winter Depression Angeli Constantino Epigastric abdominal pain Fibromyalgia Dr. 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 @[facility] Migraine with aura visual aura; diagnosed with complex migraines Nausea MAXWELL (obstructive sleep apnea) 03/10/2016 PMH - PAST MEDICAL HISTORY OF age 1 1/2 febrile seizures-with varicella PMH - PAST MEDICAL HISTORY OF 6-7 months dislocated elbow PMH - PAST MEDICAL HISTORY OF menarche age 14 years PMH - PAST MEDICAL HISTORY OF 1998 normal color vision POTS (postural orthostatic tachycardia syndrome) 04/23/2018 Rectal bleeding Sinus arrhythmia Snoring Suicide attempt by acetaminophen overdose ([facility]) 06/2014 Syncope Vomiting PAST SURGICAL HISTORY Procedure Laterality Date COLONOSCOPY 05/15/2011 COLONOSCOPY FLX DX W/COLLJ SPEC WHEN PFRMD 07/03/2014 EGD TRANSORAL BIOPSY SINGLE/MULTIPLE 07/03/2014 MIRENA IUD 12/04/2021 Placed in office- Due for removal 11/2028 FAMILY HISTORY Problem Relation Age of Onset Emphysema Maternal Grandfather Heart Maternal Grandfather other (chf) Maternal Grandfather Arthritis Mother Systemic Lupus (SLE) Coronary Artery Disease Father other (Familial idiopathic pulmonary fibrosis) Father 65 Not progressing at this time (2016) Psoriasis Brother Diabetes Maternal Grandmother Hypertension Maternal Grandmother Stroke Maternal Grandmother Heart Paternal Grandfather other (Familial IPF) Paternal Grandfather Arthritis Sister Lupus Rheumatologic disease Maternal Aunt RA Social History Tobacco Use Smoking status: Never Smokeless tobacco: Never Tobacco comments: Father and Mother smoked in home. Stopped 03/2013. Vaping Use Vaping Use: Never used Substance Use Topics Alcohol use: Yes Comment: occiasionally Drug use: No Current Outpatient Medications Medication Sig Needle, Disp, 27 G (BD DISPOSABLE NEEDLES) 27 gauge x 1/2 ndle USE DIRECTED WITH ILARIS Needle, Disp, 18 G (BD REGULAR BEVEL NEEDLES) 18 gauge x 1 1/2 USE DIRECTED WITH ILARIS Syringe, Disposable, (B-D SYRINGE LUER-RAJI 1CC) 1 mL USE DIRECTED WITH ILARIS montelukast (SINGULAIR) 10 mg tablet Take 1 tablet by mouth daily at bedtime. canakinumab, PF, (ILARIS, PF,) 150 mg/mL injection INJECT 150 MG (1 ML) UNDER THE SKIN EVERY 4 WEEKS fluvoxaMINE (LUVOX) 100 mg tablet Take 3 tablets by mouth once daily. albuterol HFA (PROAIR HFA) 90 mcg/actuation inhaler Inhale 2 Puffs as instructed every 4 hours as needed. zonisamide (ZONEGRAN) 100 mg capsule Take 3-4 caps at bedtime. naratriptan (AMERGE) 2.5 mg tablet Take 1 tablet by mouth as needed for migraine headache (see administration instructions). 2.5 mg at onset of headache, may repeat in 4 hours if needed colchicine 0.6 mg tablet Take 1 tablet by mouth twice daily. Needle, Disp, 25 G (BD DISPOSABLE NEEDLES) 25 gauge x 5/8 ndle 1 Syringe every 4 weeks. Syringe with Needle, Disp, (BD TUBERCULIN SYRINGE) 1 mL 27 x 1/2 every 4 weeks. propranolol (INDERAL) 10 mg tablet Take 1-2 tablets by mouth twice daily as needed (palpitations or tremors). atenolol (TENORMIN) 25 mg tablet Take 1 tablet by mouth twice daily. as directed levonorgestrel (MIRENA) 20 mcg/24 hours (7 yrs) 52 mg IUD 1 Each by INTRAUTERINE route as directed. levocetirizine 5 mg tablet Take 5 mg by mouth as needed. azelastine (ASTELIN) 0.1% nasal spray Use 2 Sprays in each nostril twice daily as needed. triamcinolone acetonide (NASACORT) 55 mcg nasal inhaler Use 2 Sprays in the nose once daily. cholecalciferol, Vitamin D3, (VITAMIN D3) 1,250 mcg (50,000 unit) cap capsule Take 1 capsule by mouth two times a week. No current facility-administered medications for this visit. ALLERGIES Allergen Reactions Latex, Natural Rubb* Hives Seasonal Allergies Unknown GRASSES, WEEDS AND RAGWEED VERIFIED BY SKIN TESTING REVIEW OF SYSTEMS: GENERAL: No fever associated with current issue; had recent flare up of her recurrent fever HEENT: No associated acute upper respiratory infection symptoms RESPIRATORY: see HPI CARDIOVASCULAR: No exertional CP MUSCULOSKELETAL: See HPI As noted in HPI PHYSICAL EXAMINATION: VIDEO EXAM: (if completed, performed via video enabled technology) GENERAL: alert and appropriate, in no distress, well-hydrated, well nourished, and happy, smiling, interactive HEAD: normocephalic, no abnormality or lesion noted RESPIRATORY: breathing non-labored Indicates tenderness and pain upper left chest from sternum to axilla and noted in MCL line and along upper sternum ASSESSMENT/PLAN: 1. Costochondritis - ICD9: 733.6, ICD10: M94.0 Not as severe as prior episode. Advil and Tylenol not effective. Tolerated prednisone taper before. - PREDNISONE 10 MG TABLET 12 day taper. Further evaluation and treatment as indicated. Noted has Rheumatology appointment in November and has her February follow up with me scheduled. Faustina Carcamo MD There are no Patient Instructions on file for this visit. documented in this encounter [facility] 10-18-2022 History of Present illness Narrative VIRTUAL VISIT PROGRESS NOTE This is a virtual visit using [employer] video visit. It required patient-provider interaction for the medical decision making as documented below. Liliam Thompson is a 32 year old female seen for ADA; work physical result. Biometric screening was done for work. HDL was 88. LDL was only couple points above normal. ADA form not specific enough. Needed spelled out that needs pediatric social worker and flex time. Not given any accommodations aside from closer parking. 4 to 5 days a week work from with in person as needed for work and events. With her medical issues, having to go in for work has been exhausting. HISTORY REVIEWED (electronic chart updated): PAST MEDICAL HISTORY Diagnosis Date Anxiety Angeli Constantino Asthmatic bronchitis recurrent episodes since pneumonia fall and winter of 2011 Depression Angeli Constantino Epigastric abdominal pain Fibromyalgia Dr. 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 @[facility] Migraine with aura visual aura; diagnosed with complex migraines Nausea MAXWELL (obstructive sleep apnea) 03/10/2016 PMH - PAST MEDICAL HISTORY OF age 1 1/2 febrile seizures-with varicella PMH - PAST MEDICAL HISTORY OF 6-7 months dislocated elbow PMH - PAST MEDICAL HISTORY OF menarche age 14 years PMH - PAST MEDICAL HISTORY OF 1997 normal color vision POTS (postural orthostatic tachycardia syndrome) 04/23/2018 Rectal bleeding Sinus arrhythmia Snoring Suicide attempt by acetaminophen overdose (HCC) 06/2014 Syncope Vomiting PAST SURGICAL HISTORY Procedure Laterality Date COLONOSCOPY 05/15/2011 COLONOSCOPY FLX DX W/COLLJ SPEC WHEN PFRMD 07/03/2014 EGD TRANSORAL BIOPSY SINGLE/MULTIPLE 07/03/2014 MIRENA IUD 12/04/2021 Placed in office- Due for removal 11/2028 FAMILY HISTORY Problem Relation Age of Onset Emphysema Maternal Grandfather Heart Maternal Grandfather other (chf) Maternal Grandfather Arthritis Mother Systemic Lupus (SLE) Coronary Artery Disease Father other (Familial idiopathic pulmonary fibrosis) Father 65 Not progressing at this time (2016) Psoriasis Brother Diabetes Maternal Grandmother Hypertension Maternal Grandmother Stroke Maternal Grandmother Heart Paternal Grandfather other (Familial IPF) Paternal Grandfather Arthritis Sister Lupus Rheumatologic disease Maternal Aunt RA Social History Tobacco Use Smoking status: Never Smokeless tobacco: Never Tobacco comments: Father and Mother smoked in home. Stopped 03/2013. Vaping Use Vaping Use: Never used Substance Use Topics Alcohol use: Yes Comment: occiasionally Drug use: No Current Outpatient Medications Medication Sig Needle, Disp, 27 G (BD DISPOSABLE NEEDLES) 27 gauge x 1/2 ndle USE DIRECTED WITH ILARIS Needle, Disp, 18 G (BD REGULAR BEVEL NEEDLES) 18 gauge x 1 1/2 USE DIRECTED WITH ILARIS Syringe, Disposable, (B-D SYRINGE LUER-RAJI 1CC) 1 mL USE DIRECTED WITH ILARIS montelukast (SINGULAIR) 10 mg tablet Take 1 tablet by mouth daily at bedtime. canakinumab, PF, (ILARIS, PF,) 150 mg/mL injection INJECT 150 MG (1 ML) UNDER THE SKIN EVERY 4 WEEKS fluvoxaMINE (LUVOX) 100 mg tablet Take 3 tablets by mouth once daily. albuterol HFA (PROAIR HFA) 90 mcg/actuation inhaler Inhale 2 Puffs as instructed every 4 hours as needed. zonisamide (ZONEGRAN) 100 mg capsule Take 3-4 caps at bedtime. naratriptan (AMERGE) 2.5 mg tablet Take 1 tablet by mouth as needed for migraine headache (see administration instructions). 2.5 mg at onset of headache, may repeat in 4 hours if needed colchicine 0.6 mg tablet Take 1 tablet by mouth twice daily. Needle, Disp, 25 G (BD DISPOSABLE NEEDLES) 25 gauge x 5/8 ndle 1 Syringe every 4 weeks. Syringe with Needle, Disp, (BD TUBERCULIN SYRINGE) 1 mL 27 x 1/2 every 4 weeks. propranolol (INDERAL) 10 mg tablet Take 1-2 tablets by mouth twice daily as needed (palpitations or tremors). atenolol (TENORMIN) 25 mg tablet Take 1 tablet by mouth twice daily. as directed levonorgestrel (MIRENA) 20 mcg/24 hours (7 yrs) 52 mg IUD 1 Each by INTRAUTERINE route as directed. levocetirizine 5 mg tablet Take 5 mg by mouth as needed. azelastine (ASTELIN) 0.1% nasal spray Use 2 Sprays in each nostril twice daily as needed. triamcinolone acetonide (NASACORT) 55 mcg nasal inhaler Use 2 Sprays in the nose once daily. cholecalciferol, Vitamin D3, (VITAMIN D3) 1,250 mcg (50,000 unit) cap capsule Take 1 capsule by mouth two times a week. No current facility-administered medications for this visit. ALLERGIES Allergen Reactions Latex, Natural Rubb* Hives Seasonal Allergies Unknown GRASSES, WEEDS AND RAGWEED VERIFIED BY SKIN TESTING REVIEW OF SYSTEMS: As noted in HPI PHYSICAL EXAMINATION: VIDEO EXAM: (if completed, performed via video enabled technology) GENERAL: alert and appropriate, in no distress, well-hydrated, well nourished, happy, smiling, interactive, appears tired, and overweight HEAD: normocephalic, no abnormality or lesion noted EYES: no injection and visual acuity is grossly normal RESPIRATORY: breathing non-labored Encounter Diagnosis ICD-10-CM 1. High serum high density lipoprotein (HDL) R79.89 Discussed high HDL at 88 is protective for heart 2. POTS (postural orthostatic tachycardia syndrome) G90.A 3. Inappropriate sinus node tachycardia R00.0 4. Periodic fever syndrome (HCC) M04.1 Above issues addressed with patient. Patient involved in shared decision making for management of medical issues. History and medications reviewed. Epic updated as needed Refills and/or prescriptions taken care of and meds adjusted as indicated after reviewed history, exam and labs. Health Maintenance reviewed. Updated record and/or ordered tests as recorded. She will send copies of biometric screening done for work. Labs overall good with high HDL. She will send a [employer] message regarding what needs to be in the letter for work for accommodations so will be able to pediatric social worker so able to be more productive and not so exhausted. Will write letter to get reasonable accommodations after receive her MyChart message or fax. There are no Patient Instructions on file for this visit. I spent a total of 26 minutes on the date of the service which included preparing to see the patient, [id number] patient care, completing clinical documentation, performing a medically appropriate examination, and counseling and educating the patient/family/caregiver Faustina Carcamo MD documented in this encounter [facility] 09-20-2022 History of Present illness Narrative Images from the original note were not included. Immediate care CHIEF COMPLAINT Dog Bite (Dog bite of R index finger x 09/20/22 @ 18:30/Accidentally bit while playing with her own dog per pt) BOB Thompson is a 31 y.o. female who presents with dog bite to the right index finger. This bite was accidental and from her own puppy. The puppy is teething and young and was playing with a bone which she then picked up and it accidentally bit her and then immediately released. Her tetanus is up to date. No sensation of a retained foreign body, no numbness or tingling in the finger tip. Bleeding currently resolved. PAST MEDICAL HISTORY Past Medical History: Diagnosis Date Migraine POTS (postural orthostatic tachycardia syndrome) SURGICAL HISTORY No prior surgeries on the finger. CURRENT MEDICATIONS Current Outpatient Medications Medication Sig Dispense Refill atenolol 25 MG tablet Take 25 mg by mouth 2 times daily. azelastine 0.1 % Solution nasal spray 2 sprays by Does Not Apply route Every 12 hours as needed. FLUoxetine 20 MG capsule Take 20 mg by mouth daily. fluvoxaMINE 100 MG tablet Take 200 mg by mouth daily. Levocetirizine Dihydrochloride 5 MG tablet Take 5 mg by mouth as needed. Levonorgestrel 20 MCG/DAY 1 Each by Intrauterine route. montelukast 10 MG tablet Take 1 tablet by mouth at bedtime. naratriptan 2.5 MG tablet Take 2.5 mg by mouth. Oral Electrolytes (Pedialyte Freezer Pops) Solution Take 948 mL by mouth daily. zonisamide 100 MG capsule TAKE 3-4 CAPSULES AT BEDTIME. No current facility-administered medications for this visit. ALLERGIES Allergies Allergen Reactions Latex Hives FAMILY HISTORY History reviewed. No pertinent family history. SOCIAL HISTORY Social History Socioeconomic History Marital status: Single Spouse name: Not on file Number of children: Not on file Years of education: Not on file Highest education level: Not on file Occupational History Not on file Tobacco Use Smoking status: Never Smokeless tobacco: Never Vaping Use Vaping Use: Never used Substance and Sexual Activity Alcohol use: Not on file Drug use: Not on file Sexual activity: Not on file Other Topics Concern Not on file Social History Narrative Not on file Social Determinants of Health Financial Resource Strain: Not on file Food Insecurity: Not on file Transportation Needs: Not on file Physical Activity: Not on file Stress: Not on file Social Connections: Not on file Intimate Partner Violence: Not on file Housing Stability: Not on file PHYSICAL EXAM BP 133/86 (BP Location: Left arm, BP Position: Sitting) Pulse 102 Temp 97.6 F (36.4 C) (Infrared) Resp 16 SpO2 98% Smoking Status Never Physical Exam Constitutional: oriented to person, place, and time. Appears well-developed and well-nourished. HENT: Head: Normocephalic and atraumatic. Neck: Normal range of motion. Cardiovascular: Normal rate. Pulmonary/Chest: No respiratory distress. Musculoskeletal: right index finger has 2 mm linear puncture devante/laceration along the webspace. Dried blood surrounding the area, no retained foreign body to palpation. Normal ROM against resistance to extension and flexion. Normal gross sensation in the ventral and dorsal finger tip. Neurological: Alert and oriented to person, place, and time. Strength and sensation of the finger grossly intact. Skin: Skin is warm and dry.No rash noted. Psychiatric: Normal mood and affect. Behavior is normal. Judgment and thought content normal. Nursing note and vitals reviewed. MEDICAL COURSE & DECISION MAKING The patient is a 31 year old woman with history migraines who presents with dog bite to the right index finger. Vitals WNLs, exam shows the finger is neurovascularly intact, no weakness to suggest tendon sheath injury. No current cellulitis, no ongoing hemorrhage. Tetanus was confirmed up to date. Wound was soaked in warm water with chlorhexidine soap and then rinsed and does not require suture repair. Wound dressing was applied. No pain over the bony prominences or suggestion of retained foreign bodies to suggest need for x-ray. She is already taking doxycycline 100 mg BID for chest congestion/bronchitis and will continue this as prophylaxis for infection given she has 5 days left on her prescription. Miriam Ortiz MD documented in this encounter [facility] 09-20-2022 Instructions Miriam Ortiz MD - 09/20/2022 8:10 PM EST Liliam Thompson, you have been seen in the Immediate Care for dog bite to your finger. Your tetanus is up to date. Your nerves and tendons in the finger are working well. The puncture wound did not require suture repair but was washed with surgical soap to prevent infection. You should continue your doxycycline at home to prevent infection as well. Medications: You may take tylenol 1 tab (650 mg) up to every 6 hrs as needed for pain. Do not take more than 4 g (4,000 mg) in a 24 hour period as this may cause liver damage. You may use ibuprofen for your pain and swelling, take up to 400 mg every 6 hrs as needed. This may cause stomach upset when taken on an empty stomach, if this occurs you may need to take with food. Continue the doxycycline for 5 days at your current dose to prevent infection. Change the dressing once per day until a scab forms over this area and then you may leave it open to the air. Do not use occlusive items such as plastic gloves as this holds too much moisture into the cut. Do not use any hydrogen peroxide on this wound. Appointments: Make a follow up appointment with your primary doctor in 2-3 days if your symptoms are not improving. Return to the ED for further evaluation if your pain becomes worse or you have the following symptoms: fever 100.4F or higher, weakness of the finger, blue color to the tip of the finger, angry red rash around the bite wound. I have included a handout on dog bite for your information, please read it over at your convenience. The following attachments cannot be sent through Care Everywhere.Bites: Animal (Serbian)documented in this encounter [facility] 09-16-2022 Miscellaneous Notes Per geena ilais has already been approved. documented in this encounter [facility] 09-01-2022 History of Present illness Narrative VV Pt with frequent migraines that was doing well on zonegran and prozac. Graduated from grad school last spring. Had a job for about 6 months and then switched. Working with [employer] for [facility] [employer], [place]. Was doing ok until she had the flu around [place]. Ahs had a daily MCNEAL for the last 2 or so weeks. She stopped abortives just to make sure it wasn't rebound. Will give medrol dosepack. Can repeat once if needed. If that fails, will call and will try depakote (1 g for week then 500 mg for a week). Other option is amerge burst but already takes that . Discussed and answered all questions. Yair Lyons MD Time spent: 20 mins (10 mins direct pt contact)Answers submitted by the patient for this visit: Headache Questionnaire (Submitted on 08/30/2022) How many days of work or school have you missed due to headaches in the last month? : 2 In the last month, how many headache days did you experience ALL of the following symptoms: decreased productivity, light sensitivity and nausea?: 12 How many days have you been completely free of headache pain in the last month? : 2 documented in this encounter [facility] 08-12-2022 Miscellaneous Notes Please approve prescription and any additional refills and e-script to designated pharmacy. Per pt, she did not receive any needles. Thank you, Caitlin Pozo documented in this encounter [facility] 08-12-2022 Miscellaneous Notes Behavioral Health Social Work Progress Note Patient identified for [facility] from: PCP Reason for referral: Resources Behavioral Health Resources: Psychiatry med management [facility] encounter type: Telephone Encounter;[employer] Message Attempts to Outreach: 1 attempt Referral made: Psychiatry - Internal Psychiatry-Internal referral type: Medication Management Final Disposition: Resources given Patient Discharged?: Yes Patient reported that caregiver was able to meet their needs today?: Yes SW placed telephone call at the request of the PCP to discuss behavioral health needs. Patient would like to transition psychiatry care from [facility] to [place] due to location of her home. Was given the numbers below to contact and request a transition of care: [facility] [place] Scheduling Call Center [phone] [facility] [address] [place] [address] BARBARA Frankel August 12, 2022 documented in this encounter [facility] 08-11-2022 History of Present illness Narrative This note was created using [employer]. Subjective Liliam Thompson is a 31 year old female. Patient presents with: Established Patient: 4 month follow up SUBJECTIVE: Liliam Thompson is a 31 year old year old lady here today for 4 month follow up appointment for review of medical conditions. Noted on Augment for reactive airways with acute infection. Flu symptoms last week and now with bad cough and wheezing. Took some prednisone for bronchospasm. Also used her albuterol. Wheezing is better. Sputum was clear and now green again. Albuterol was every 4 hours but now just needs at bedtime. Everything else stable. Needs new psychiatrist. Right now not tolerating atenolol and feeling better with sudafed (pseudoephedrine)--BP okay and HR not too bad. Did not tale atenolol today. PAST MEDICAL HISTORY Diagnosis Date Anxiety Melbaitelyn Vira Asthmatic bronchitis recurrent episodes since pneumonia fall and winter 2011 Depression Angeli Christiansonger Epigastric abdominal pain Fibromyalgia Dr. 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 @[facility] Migraine with aura visual aura; diagnosed with complex migraines Nausea MAXWELL (obstructive sleep apnea) 03/10/2016 PMH - PAST MEDICAL HISTORY OF age 1 1/2 febrile seizures-with varicella PMH - PAST MEDICAL HISTORY OF 6-7 months dislocated elbow PMH - PAST MEDICAL HISTORY OF menarche age 14 years PMH - PAST MEDICAL HISTORY OF 1997 normal color vision POTS (postural orthostatic tachycardia syndrome) 04/23/2018 Rectal bleeding Sinus arrhythmia Snoring Suicide attempt by acetaminophen overdose (HCC) 06/2014 Syncope Vomiting Current Outpatient Medications Medication Sig amoxicillin-clavulanic acid (AUGMENTIN) 875-125 mg per tablet Take 1 tablet by mouth every 12 hours. canakinumab, PF, (ILARIS, PF,) 150 mg/mL injection INJECT 150 MG (1 ML) UNDER THE SKIN EVERY 4 WEEKS fluvoxaMINE (LUVOX) 100 mg tablet Take 3 tablets by mouth once daily. prazosin (MINIPRESS) 2 mg cap Take 1 capsule by mouth daily at bedtime. B-D SYRINGE LUER-RAJI 1CC 1 mL USE DIRECTED WITH ILARIS BD REGULAR BEVEL NEEDLES 18 gauge x 1 1/2 USE DIRECTED WITH ILARIS BD DISPOSABLE NEEDLES 27 gauge x 1/2 ndle USE DIRECTED WITH ILARIS albuterol HFA (PROAIR HFA) 90 mcg/actuation inhaler Inhale 2 Puffs as instructed every 4 hours as needed. zonisamide (ZONEGRAN) 100 mg capsule Take 3-4 caps at bedtime. naratriptan (AMERGE) 2.5 mg tablet Take 1 tablet by mouth as needed for migraine headache (see administration instructions). 2.5 mg at onset of headache, may repeat in 4 hours if needed colchicine 0.6 mg tablet Take 1 tablet by mouth twice daily. Needle, Disp, 25 G (BD DISPOSABLE NEEDLES) 25 gauge x 5/8 ndle 1 Syringe every 4 weeks. Syringe with Needle, Disp, (BD TUBERCULIN SYRINGE) 1 mL 27 x 1/2 every 4 weeks. propranolol (INDERAL) 10 mg tablet Take 1-2 tablets by mouth twice daily as needed (palpitations or tremors). atenolol (TENORMIN) 25 mg tablet Take 1 tablet by mouth twice daily. as directed levonorgestrel (MIRENA) 20 mcg/24 hours (7 yrs) 52 mg IUD 1 Each by INTRAUTERINE route as directed. levocetirizine 5 mg tablet Take 5 mg by mouth as needed. azelastine (ASTELIN) 0.1% nasal spray Use 2 Sprays in each nostril twice daily as needed. montelukast (SINGULAIR) 10 mg tablet Take 1 tablet by mouth daily at bedtime. meloxicam (MOBIC) 15 mg tablet Take 1 tablet by mouth once daily as needed. triamcinolone acetonide (NASACORT) 55 mcg nasal inhaler Use 2 Sprays in the nose once daily. cholecalciferol, Vitamin D3, (VITAMIN D3) 1,250 mcg (50,000 unit) cap capsule Take 1 capsule by mouth two times a week. No current facility-administered medications for this visit. Review of Systems Objective BP 122/68 Pulse 107 Temp 36.2 C (97.2 F) Resp 18 Wt 117 kg (258 lb) LMP 12/31/2021 SpO2 99% BMI 50.39 kg/m Physical Exam Constitutional: Appearance: Normal appearance. HENT: Head: Normocephalic. Eyes: Conjunctiva/sclera: Conjunctivae normal. Cardiovascular: Rate and Rhythm: Normal rate and regular rhythm. Heart sounds: Normal heart sounds. Pulmonary: Effort: Pulmonary effort is normal. Breath sounds: Wheezing (faint wheeze with forced expirations) present. Skin: General: Skin is warm and dry. Neurological: General: No focal deficit present. Mental Status: She is alert and oriented to person, place, and time. Psychiatric: Mood and Affect: Mood normal. Behavior: Behavior normal. Thought Content: Thought content normal. Judgment: Judgment normal. Assessment and Plan Encounter Diagnosis ICD-10-CM 1. Obsessive-compulsive disorder, unspecified type F42.9 CONSULT TO PRIMARY CARE BEHAVIORAL HEALTH ADULT 2. PTSD (post-traumatic stress disorder) F43.10 CONSULT TO PRIMARY CARE BEHAVIORAL HEALTH ADULT 3. Recurrent major depressive disorder, in partial remission (HCC) F33.41 CONSULT TO PRIMARY CARE BEHAVIORAL HEALTH ADULT Dysthymia with flare ups with major depression; stable at this time 4. Anxiety F41.9 CONSULT TO PRIMARY CARE BEHAVIORAL HEALTH ADULT 5. POTS (postural orthostatic tachycardia syndrome) G90.A Doing better with taking sudafed at this time 6. Inappropriate sinus node tachycardia R00.0 Noted not tolerating atenolol well ast this time 7. Moderate persistent reactive airway disease with acute exacerbation J45.41 montelukast (SINGULAIR) 10 mg tablet Above issues addressed with patient. Patient involved in shared decision making for management of medical issues. Complicated medical history. Following with multiple specialist. Noted needs new psychiatrist. Consults as above to help with establishing with one. History and medications reviewed. Epic updated as needed Refills and/or prescriptions taken care of and meds adjusted as indicated after reviewed history, exam and labs. Health Maintenance reviewed. Updated record and/or ordered tests as recorded. Encouraged on efforts at healthy diet and regular exercise and adequate sleep. I spent a total of 41 minutes on the date of the service which included [id number] patient care, completing clinical documentation, obtaining and/or reviewing separately obtained history, performing a medically appropriate examination, and counseling and educating the patient/family/caregiver. Faustina Carcamo MD documented in this encounter [facility] 08-05-2022 Miscellaneous Notes Submit the PA for [employer] via [employer] waiting for the approval documented in this encounter [facility] 08-02-2022 Miscellaneous Notes Most recent Rheumatology visit: 03/24/2022 (with Silvia Tucker) Recent Office Visits - This Specialty 03/24/2022 Periodic fever syndrome (HCC) Rheumatology Silvia Tucker MD 09/25/2021 Periodic fever syndrome (HCC) Rheumatology Silvia Tucker MD 06/12/2021 Periodic fever syndrome (HCC) Rheumatology Silvia Tucker MD Upcoming Rheumatology Appointments - Next 365 Days Visit Type Date Time Department CHRISTY EST [facility] 12/03/2022 2:00 PM [facility] A[facility] CBC: CBC Latest Ref Rng & Units 09/25/2021 03/24/2022 WBC 3.70 - 11.00 k/uL 10.29 10.16 HEMOGLOBIN 11.5 - 15.5 g/dL 14.0 12.9 HEMOGLOBIN, TREVOR 11.5 - 15.5 g/dL - - HEMATOCRIT 36.0 - 46.0 % 42.2 40.7 PLATELETS 150 - 400 k/uL 456(H) 423(H) ABS NEUT (ANC) 1.45 - 7.50 k/uL 5.36 5.65 ABS NEUT, TREVOR 1.45 - 7.50 k/uL - - ABS LYMP, TREVOR 1.00 - 4.00 k/uL - - ABS LYMPH 1.00 - 4.00 k/uL 3.98 3.36 Vitamin D: None on file in the last 6 months LFT: None on file in the last 6 months Creatinine: Creatinine Latest Ref Rng & Units 09/25/2021 03/24/2022 CREAT 0.58 - 0.96 mg/dL 0.70 0.62 ESR/CRP: ESR, WSR Latest Ref Rng & Units 09/25/2021 03/24/2022 WSR 0 - 20 mm/hr 5 2 SED RATE, TREVOR 0 - 20 mm/hr - - CRP Latest Ref Rng & Units 09/25/2021 03/24/2022 CRP <0.9 mg/dL <0.3 <0.3 Uric Acid: None on file in the last 6 months Open Standing (Multiple Instance) Lab Orders None Open Future (Single Instance) Lab Orders None Most recent Rheumatology visit: 03/24/2022 (with Silvia Tucker) Recent Office Visits - This Specialty 03/24/2022 Periodic fever syndrome (HCC) Rheumatology Silvia Tucker MD 09/25/2021 Periodic fever syndrome (HCC) Rheumatology Silvia Tucker MD 06/12/2021 Periodic fever syndrome (HCC) Rheumatology Silvia Tucker MD Upcoming Rheumatology Appointments - Next 365 Days Visit Type Date Time Department [facility] 12/03/2022 2:00 PM [facility] A50 CBC: CBC Latest Ref Rng & Units 09/25/2021 03/24/2022 WBC 3.70 - 11.00 k/uL 10.29 10.16 HEMOGLOBIN 11.5 - 15.5 g/dL 14.0 12.9 HEMOGLOBIN, TREVOR 11.5 - 15.5 g/dL - - HEMATOCRIT 36.0 - 46.0 % 42.2 40.7 PLATELETS 150 - 400 k/uL 456(H) 423(H) ABS NEUT (ANC) 1.45 - 7.50 k/uL 5.36 5.65 ABS NEUT, TREVOR 1.45 - 7.50 k/uL - - ABS LYMP, TREVOR 1.00 - 4.00 k/uL - - ABS LYMPH 1.00 - 4.00 k/uL 3.98 3.36 Vitamin D: None on file in the last 6 months LFT: None on file in the last 6 months Creatinine: Creatinine Latest Ref Rng & Units 09/25/2021 03/24/2022 CREAT 0.58 - 0.96 mg/dL 0.70 0.62 ESR/CRP: ESR, WSR Latest Ref Rng & Units 09/25/2021 03/24/2022 WSR 0 - 20 mm/hr 5 2 SED RATE, TREVOR 0 - 20 mm/hr - - CRP Latest Ref Rng & Units 09/25/2021 03/24/2022 CRP <0.9 mg/dL <0.3 <0.3 Uric Acid: None on file in the last 6 months Open Standing (Multiple Instance) Lab Orders None Open Future (Single Instance) Lab Orders None documented in this encounter [facility] 07-14-2022 History of Present illness Narrative Liliam Thompson is a 31 year old female who presents for problem visit of resolved pelvic pain. Seen in office February for pelivic pain and concern that IUD was misplaced. Pelvic US confirmed correct placement. No further pain until 2 weeks ago when she had extreme right sided stabbing pain . Reports pain was so intense that it made her sweat and vomit. Initially thought it was her appendix and was seen with CT completed. Pain eventually subsided and denies current pelvic pain. Wondering if she has ovarian cysts. Currently sexually active and desires STD screening today. 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 @[facility] Migraine with aura visual aura; diagnosed with complex migraines Nausea MAXWELL (obstructive sleep apnea) 03/10/2016 PMH - PAST MEDICAL HISTORY OF age 1 1/2 febrile seizures-with varicella PMH - PAST MEDICAL HISTORY OF 6-7 months dislocated elbow PMH - PAST MEDICAL HISTORY OF menarche age 14 years PMH - PAST MEDICAL HISTORY OF 1997 normal color vision POTS (postural orthostatic tachycardia syndrome) 04/23/2018 Rectal bleeding Sinus arrhythmia Snoring Suicide attempt by acetaminophen overdose (HCC) 06/2014 Syncope Vomiting PAST SURGICAL HISTORY Procedure Laterality Date COLONOSCOPY 05/15/2011 COLONOSCOPY FLX DX W/COLLJ SPEC WHEN PFRMD 07/03/2014 EGD TRANSORAL BIOPSY SINGLE/MULTIPLE 07/03/2014 MIRENA IUD 12/04/2021 Placed in office- Due for removal 11/2028 FAMILY HISTORY Problem Relation Age of Onset Emphysema Maternal Grandfather Heart Maternal Grandfather other (chf) Maternal Grandfather Arthritis Mother Systemic Lupus (SLE) Coronary Artery Disease Father other (Familial idiopathic pulmonary fibrosis) Father 65 Not progressing at this time (2016) Psoriasis Brother Diabetes Maternal Grandmother Hypertension Maternal Grandmother Stroke Maternal Grandmother Heart Paternal Grandfather other (Familial IPF) Paternal Grandfather Arthritis Sister Lupus Rheumatologic disease Maternal Aunt RA Social History Tobacco Use Smoking status: Never Smokeless tobacco: Never Tobacco comments: Father and Mother smoked in home. Stopped 03/2013. Vaping Use Vaping Use: Never used Substance Use Topics Alcohol use: Yes Comment: occiasionally Drug use: No Current Outpatient Medications Medication Sig B-D SYRINGE LUER-RAJI 1CC 1 mL USE DIRECTED WITH ILARIS BD REGULAR BEVEL NEEDLES 18 gauge x 1 1/2 USE DIRECTED WITH ILARIS BD DISPOSABLE NEEDLES 27 gauge x 1/2 ndle USE DIRECTED WITH ILARIS canakinumab, PF, (ILARIS, PF,) 150 mg/mL injection INJECT 150 MG (1 ML) UNDER THE SKIN EVERY 4 WEEKS fluvoxaMINE (LUVOX) 100 mg tablet Take 2.5 tablets by mouth once daily. albuterol HFA (PROAIR HFA) 90 mcg/actuation inhaler Inhale 2 Puffs as instructed every 4 hours as needed. zonisamide (ZONEGRAN) 100 mg capsule Take 3-4 caps at bedtime. naratriptan (AMERGE) 2.5 mg tablet Take 1 tablet by mouth as needed for migraine headache (see administration instructions). 2.5 mg at onset of headache, may repeat in 4 hours if needed colchicine 0.6 mg tablet Take 1 tablet by mouth twice daily. Needle, Disp, 25 G (BD DISPOSABLE NEEDLES) 25 gauge x 5/8 ndle 1 Syringe every 4 weeks. Syringe with Needle, Disp, (BD TUBERCULIN SYRINGE) 1 mL 27 x 1/2 every 4 weeks. propranolol (INDERAL) 10 mg tablet Take 1-2 tablets by mouth twice daily as needed (palpitations or tremors). atenolol (TENORMIN) 25 mg tablet Take 1 tablet by mouth twice daily. as directed levonorgestrel (MIRENA) 20 mcg/24 hours (7 yrs) 52 mg IUD 1 Each by INTRAUTERINE route as directed. levocetirizine 5 mg tablet Take 5 mg by mouth as needed. azelastine (ASTELIN) 0.1% nasal spray Use 2 Sprays in each nostril twice daily as needed. montelukast (SINGULAIR) 10 mg tablet Take 1 tablet by mouth daily at bedtime. meloxicam (MOBIC) 15 mg tablet Take 1 tablet by mouth once daily as needed. triamcinolone acetonide (NASACORT) 55 mcg nasal inhaler Use 2 Sprays in the nose once daily. cholecalciferol, Vitamin D3, (VITAMIN D3) 1,250 mcg (50,000 unit) cap capsule Take 1 capsule by mouth two times a week. No current facility-administered medications for this visit. Allergies As of Date: 07/14/2022 Allergen Noted Reaction LATEX, NATURAL RUBBER 01/18/2013 Hives SEASONAL ALLERGIES 06/11/2021 Unknown Fully Assessed 07/14/2022 REVIEW OF SYSTEMS Abdomen: No bloating, early satiety, indigestion, or increased flatulence. No abdominal pain, nausea, vomiting, diarrhea, or constipation. Bladder: No dysuria, gross hematuria, urinary frequency, urinary urgency, or incontinence. Breast: No breast lumps, nipple d/c, overlying skin changes, redness or skin retraction. Expanded ROS: N/A Allergies and current medication updated:Yes EXAM: BP 128/72 Wt 266 lb 9.6 oz (120.9kg) LMP 12/31/2021 GENERAL: pleasant, female in no apparent distress HEENT: Normocephalic and atraumatic NECK: Supple and full range of motion DERMATOLOGY: Normal and without lesions BREAST: deferred CHEST: Normal inspiratory effort ABDOMEN: soft, non-tender, and no masses PELVIC: external genitalia normal, normal Bartholin's glands, urethra, Claypool's glands, no vulvar lesions, no cervical lesions, good vaginal support, physiologic discharge present, normal appearing perineal body and perianal region BIMANUAL: uterus normal size, shape and consistency, no adnexal masses, non-tender, and no cervical motion tenderness NEURO: alert and oriented x3,exam grossly non-focal EXTREMITIES: normal ASSESSMENT/PLAN: 1. Pelvic pain in female - ICD9: 625.9, ICD10: R10.2 (primary diagnosis) - Resolved - Discussed ovarian cysts and management of pain - Patient unable to take OCP due to medical history 2. Screen for STD (sexually transmitted disease) - ICD9: V74.5, ICD10: Z11.3 - SYPHILIS TOTAL W/REFLEX - BARBARA / TRICHOMONAS AMPLIFICATION - BACTERIAL VAGINOSIS AMPLIFICATION - GC/CHLAMYDIA DNA DET 3. Surveillance of previously prescribed intrauterine contraceptive device - ICD9: V25.42, ICD10: Z30.431 - Pleased with IUD Will notify patient of results and any treatment plans RTO- as needed or for yearly exam Francoise Rowley APRN.CNM documented in this encounter [facility] 06-28-2022 History of Present illness Narrative dEPARTMENT of Emergency Medicine CHIEF COMPLAINT Abdominal Pain (Pt arrives with c/o RLQ pain x 3 days, reports vomiting 1x, fever highest at 100. Reports hx of right ovarian cyst 12/04. Denies vaginal bleeding, denies urinary or bowel issues. Pt skin pwd, respirations even and unlabored.) HPI Liliam Thompson is a 31 y.o. female who presents with complaints of RLQ pain that started Tuesday night. Progressively worsened. PMH significant for POTS and migraines. One episode of vomiting Tuesday d/t pain and fever that was this AM at 100F. Denies CP, sob, n/d/c, fevers, rashes or chills currently. Mild nausea currently but states it could be related to not eating since breakfast. Denies abdominal surgeries, vaginal pain/bleeding/discharge, urinary urgency, frequency, dysuria or hematuria. REVIEW OF SYSTEMS Review of Systems Constitutional: Negative. HENT: Negative. Eyes: Negative. Respiratory: Negative. Cardiovascular: Negative. Gastrointestinal: Positive for abdominal pain and nausea. Negative for abdominal distention, anal bleeding, blood in stool, constipation, diarrhea, rectal pain and vomiting. Endocrine: Negative. Genitourinary: Negative. Musculoskeletal: Negative. Skin: Negative. Allergic/Immunologic: Negative. Neurological: Negative. Hematological: Negative. Psychiatric/Behavioral: Negative. PAST MEDICAL HISTORY Past Medical History: Diagnosis Date Migraine POTS (postural orthostatic tachycardia syndrome) SURGICAL HISTORY No past surgical history on file. CURRENT MEDICATIONS Current Outpatient Medications Medication Sig Dispense Refill atenolol 25 MG tablet Take 25 mg by mouth 2 times daily. azelastine 0.1 % Solution nasal spray 2 sprays by Does Not Apply route Every 12 hours as needed. FLUoxetine 20 MG capsule Take 20 mg by mouth daily. fluvoxaMINE 100 MG tablet Take 200 mg by mouth daily. Levocetirizine Dihydrochloride 5 MG tablet Take 5 mg by mouth as needed. Levonorgestrel 20 MCG/DAY 1 Each by Intrauterine route. montelukast 10 MG tablet Take 1 tablet by mouth at bedtime. naratriptan 2.5 MG tablet Take 2.5 mg by mouth. Oral Electrolytes (Pedialyte Freezer Pops) Solution Take 948 mL by mouth daily. predniSONE 5 MG tablet Take 5 mg by mouth daily. (Patient not taking: Reported on 05/05/2022) zonisamide 100 MG capsule TAKE 3-4 CAPSULES AT BEDTIME. No current facility-administered medications for this visit. ALLERGIES Allergies Allergen Reactions Latex Hives FAMILY HISTORY History reviewed. No pertinent family history. SOCIAL HISTORY Social History Socioeconomic History Marital status: Single Spouse name: Not on file Number of children: Not on file Years of education: Not on file Highest education level: Not on file Occupational History Not on file Tobacco Use Smoking status: Never Smokeless tobacco: Never Vaping Use Vaping Use: Never used Substance and Sexual Activity Alcohol use: Not on file Drug use: Not on file Sexual activity: Not on file Other Topics Concern Not on file Social History Narrative Not on file Social Determinants of Health Financial Resource Strain: Not on file Food Insecurity: Not on file Transportation Needs: Not on file Physical Activity: Not on file Stress: Not on file Social Connections: Not on file Intimate Partner Violence: Not on file Housing Stability: Not on file PHYSICAL EXAM BP 119/82 (BP Location: Right arm, BP Position: Sitting) Pulse 92 Temp 97.4 F (36.3 C) (Temporal) Resp 16 SpO2 94% Smoking Status Never Physical Exam Vitals and nursing note reviewed. Constitutional: Appearance: She is well-developed. HENT: Mouth/Throat: Mouth: Mucous membranes are moist. Eyes: Extraocular Movements: Extraocular movements intact. Cardiovascular: Rate and Rhythm: Normal rate. Heart sounds: Normal heart sounds. Pulmonary: Effort: Pulmonary effort is normal. Breath sounds: Normal breath sounds. Abdominal: General: Bowel sounds are normal. There is no distension or abdominal bruit. There are no signs of injury. Palpations: Abdomen is soft. There is no shifting dullness, fluid wave, hepatomegaly, splenomegaly, mass or pulsatile mass. Tenderness: There is abdominal tenderness in the right lower quadrant. There is rebound. There is no right CVA tenderness, left CVA tenderness or guarding. Negative signs include Lombardo's sign, Rovsing's sign, McBurney's sign, psoas sign and obturator sign. Skin: General: Skin is warm and dry. Capillary Refill: Capillary refill takes less than 2 seconds. Neurological: General: No focal deficit present. Mental Status: She is alert. Psychiatric: Mood and Affect: Mood normal. Behavior: Behavior normal. ED COURSE & MEDICAL DECISION MAKING CURRENT PLAN & ASSESSMENT: Ordered: urine POC, preg, cbc, cmp, CT abdomen/pelvis w contrast DIAGNOSTIC RESULTS: Results for orders placed or performed in visit on 06/28/22 POCT URINE DIPSTICK AUTOMATED Result Value Ref Range POCT APPEARANCE, URINE clear POCT COLOR, URINE yellow POCT GLUCOSE, URINE neg mg/dL POCT BILIRUBIN, URINE neg POCT KETONES, URINE neg mg/dL POCT SPECIFIC GRAVITY, URINE >=1.030 1.001 - 1.035 POCT BLOOD, URINE neg POCT PH, URINE 5.5 5 - 7 POCT PROTEIN, URINE neg mg/dL POCT UROBILINOGEN, URINE 0.2 0 - 2 E.U./dL POCT NITRITE, URINE neg POCT LEUKOCYTE, URINE neg POCT ESTERASE, URINE POCT BACTERIA, URINE POCT WBC, URINE POCT RBC, URINE POCT AMORPHOUS, URINE POCT CASTS, QUANTITATIVE, URINE POCT SQUAMOUS EPIS, URINE POCT RENAL EPIS, URINE POCT CRYSTALS, URINE POCT URINE COMMENTS, URINE POCT MICROSCOPIC POCT URINE Result Value Ref Range POCT URINE neg POCT COMPREHENSIVE METABOLIC PANEL Result Value Ref Range SODIUM (NA), MANUAL ENTER 142 128 - 145 mmol/L POTASSIUM (K+), MANUAL ENTER 4.1 3.6 - 5.1 mmol/L Carbon Diox(CO2), MANUAL ENTER 20 18 - 33 mmol/L Chloride (CL), MANUAL ENTER 111 (A) 98 - 108 mmol/L GLUCOSE, MANUAL ENTER 101 73 - 118 mg/dL CALCIUM (CA), MANUAL ENTER 9.3 8.0 - 10.3 mg/dL Blood Urea Nitrogen (BUN), MANUAL ENTER 11 7 - 22 mg/dL CREATININE, SERUM, MANUAL ENTER 0.9 0.6 - 1.2 mg/dL ALKALINE PHOSPHATASE, MANUAL ENTER 76 42 - 141 U/L ALT, MANUAL ENTER 36 10 - 47 U/L AST, MANUAL ENTER 35 11 - 38 U/L Bilirubin, Total, MANUAL ENTER 0.4 0.2 - 1.6 mg/dL ALBUMIN, MANUAL ENTER 3.9 3.3 - 5.5 g/dL Protein, Total, Manual Enter 7.3 6.4 - 8.1 g/dL POCT CBC Result Value Ref Range WBC, MANUAL ENTER 8.2 3.9 - 10.4 10^3/uL RBC, MANUAL ENTER 4.58 3.71 - 5.52 10^6/uL Hemoglobin (HGB), MANUAL ENTER 14.2 10.9 - 16.7 g/dL HEMATOCRIT (HCT), MANUAL ENTER 43.2 32.5 - 49.4 % PLATELETS, MANUAL ENTER 477 (A) 148 - 382 10^3/uL NEUTROPHILS %, MANUAL ENTER 59.5 46.4 - 74.9 % LYMPHOCYTES %, MANUAL ENTER 34.3 14.7 - 45.9 % OTHERWBC %, MANUAL ENTER 6.2 3.2 - 16.9 % MEAN CELL VOLUME, MANUAL ENTER 94.3 82.5 - 98.0 fL Patient did have to leave prior to CT resulting. Made aware that she will receive a phone call regarding results from myself CT ABDOMEN/PELVIS WITH CONTRAST Final Result IMPRESSION: No acute localizing process in the abdomen/pelvis. Appendix is normal. Update: results of CT scan are unremarkable. Called patient and made aware of this. Low concern for acute intra-abdominal bleeding, cholecystitis, pancreatitis or peritonitis at this time. Urine culture ordered and pending. DISPOSITION: Diagnosis: abdominal pain Educated to return to the [facility] or ED if urgent symptoms arise such as severe chest pain, shortness of breath, severe pain, bleeding, nausea, vomiting, diarrhea, constipation, fever, rashes or chills. Follow up with PCP. BOAZ Alexandra 4:45 PM documented in this encounter [facility] 06-28-2022 Instructions BOAZ Alexandra - 06/28/2022 2:30 PM EST Return to the [facility] or ED if urgent symptoms arise such as severe chest pain, shortness of breath, nausea, vomiting, diarrhea, constipation, fever, rashes or chills. Follow up with PCP Pending CT scan and will receive a phone call when resulted. The following attachments cannot be sent through Care Everywhere.Abdominal Pain (Serbian)documented in this encounter [facility] 06-03-2022 History of Present illness Narrative This Team Access Model visit is a virtual encounter. It required patient-provider interaction for the medical decision making as documented below. Patient agrees to the visit: Yes Patient Location: [place] CC: Patient presents with: Cough HPI Liliam Thompson is a 31 year old female who is contacted today for a virtual visit. This is an established patient of Dr. Faustina Carcamo MD. She gets a croupy cough every time she has an upper respiratory infection and requires steroids and an albuterol inhaler to improve it. Symptoms began a week and a half ago with sinus drainage, fever, productive cough, fatigue, headaches, and was miserable. Was tested in an urgent care for COVID and Flu but was negative. All symptoms have resolved except this dry barking cough that is worse at night and she is unable to breathe with it and sometimes has wheezing. REVIEW OF SYSTEMS General: no fevers, no chills, no night sweats, no recurrent infections, no change in appetite, no change in energy, and no significant changes in weight HEENT: no frequent or significant headaches, no changes in hearing, no visual changes, no nose bleeds, no sinus or nasal problems Respiratory: See HPI Cardiovascular: no chest pain, no chest pressure, no palpitations, and no swelling GI: No nausea, vomiting, or diarrhea Neurologic: No headache, weakness, numbness, tingling, dizziness, memory loss, syncope. PAST MEDICAL HISTORY Diagnosis Date Anxiety Angeli Constantino Asthmatic bronchitis recurrent episodes since pneumonia fall and winter Depression Angeli Constantino Epigastric abdominal pain Fibromyalgia Dr. 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 @[facility] Migraine with aura visual aura; diagnosed with complex migraines Nausea MAXWELL (obstructive sleep apnea) 03/10/2016 PMH - PAST MEDICAL HISTORY OF age 1 1/2 febrile seizures-with varicella PMH - PAST MEDICAL HISTORY OF 6-7 months dislocated elbow PMH - PAST MEDICAL HISTORY OF menarche age 14 years PMH - PAST MEDICAL HISTORY OF 1998 normal color vision POTS (postural orthostatic tachycardia syndrome) 04/23/2018 Rectal bleeding Sinus arrhythmia Snoring Suicide attempt by acetaminophen overdose ([facility]) 06/2014 Syncope Vomiting PAST SURGICAL HISTORY Procedure Laterality Date COLONOSCOPY 05/15/2011 COLONOSCOPY FLX DX W/COLLJ SPEC WHEN PFRMD 07/03/2014 EGD TRANSORAL BIOPSY SINGLE/MULTIPLE 07/03/2014 MIRENA IUD 12/04/2021 Placed in office- Due for removal 11/2028 ALLERGIES Latex, Natural Rubber and Seasonal Allergies MEDICATIONS predniSONE (DELTASONE) 5 mg tablet TAKE 1 TABLET BY MOUTH EVERY DAY zonisamide (ZONEGRAN) 100 mg capsule Take 3-4 caps at bedtime. naratriptan (AMERGE) 2.5 mg tablet Take 1 tablet by mouth as needed for migraine headache (see administration instructions). 2.5 mg at onset of headache, may repeat in 4 hours if needed colchicine 0.6 mg tablet Take 1 tablet by mouth twice daily. canakinumab, PF, (ILARIS, PF,) 150 mg/mL injection INJECT 150 MG (1 ML) UNDER THE SKIN EVERY 4 WEEKS Needle, Disp, 25 G (BD DISPOSABLE NEEDLES) 25 gauge x 5/8 ndle 1 Syringe every 4 weeks. Syringe with Needle, Disp, (BD TUBERCULIN SYRINGE) 1 mL 27 x 1/2 every 4 weeks. propranolol (INDERAL) 10 mg tablet Take 1-2 tablets by mouth twice daily as needed (palpitations or tremors). atenolol (TENORMIN) 25 mg tablet Take 1 tablet by mouth twice daily. as directed levonorgestrel (MIRENA) 20 mcg/24 hours (7 yrs) 52 mg IUD 1 Each by INTRAUTERINE route as directed. fluvoxaMINE (LUVOX) 100 mg tablet Take 2 tablets by mouth once daily. FLUoxetine (PROZAC) 20 mg capsule Take 1 capsule by mouth once daily. levocetirizine 5 mg tablet Take 5 mg by mouth as needed. azelastine (ASTELIN) 0.1% nasal spray Use 2 Sprays in each nostril twice daily as needed. montelukast (SINGULAIR) 10 mg tablet Take 1 tablet by mouth daily at bedtime. Pedialyte (PEDIALYTE) soln Take 948 mL by mouth once daily. Diagnosis: POTS I49.8 albuterol HFA (PROAIR HFA) 90 mcg/actuation inhaler Inhale 2 Puffs as instructed every 4 hours as needed. meloxicam (MOBIC) 15 mg tablet Take 1 tablet by mouth once daily as needed. triamcinolone acetonide (NASACORT) 55 mcg nasal inhaler Use 2 Sprays in the nose once daily. cholecalciferol, Vitamin D3, (VITAMIN D3) 1,250 mcg (50,000 unit) cap capsule Take 1 capsule by mouth two times a week. FAMILY HISTORY Problem Relation Age of Onset Emphysema Maternal Grandfather Heart Maternal Grandfather other (chf) Maternal Grandfather Arthritis Mother Systemic Lupus (SLE) Coronary Artery Disease Father other (Familial idiopathic pulmonary fibrosis) Father 65 Not progressing at this time (2017) Psoriasis Brother Diabetes Maternal Grandmother Hypertension Maternal Grandmother Stroke Maternal Grandmother Heart Paternal Grandfather other (Familial IPF) Paternal Grandfather Arthritis Sister Lupus Rheumatologic disease Maternal Aunt RA Social History Tobacco Use Smoking status: Never Smokeless tobacco: Never Tobacco comments: Father and Mother smoked in home. Stopped 03/2013. Vaping Use Vaping Use: Never used Substance Use Topics Alcohol use: Yes Comment: occiasionally Drug use: No EXAM: Virtual visit completed using video, limited exam completed. GENERAL: alert and appropriate, in no distress, well-hydrated, well nourished, and happy, smiling, interactive RESPIRATORY: breathing non-labored CHEST: equal chest rise with normal respiratory effort ASSESSMENT/PLAN: 1. Acute cough - ICD9: 786.2, ICD10: R05.1 (primary diagnosis) - will do prednisone burst and albuterol inhaler - no sign of sinusitis but discussed this with patient that if there is no improvement or if sinus congestion returns she may require an antibiotic as well. - follow up if no improvement or any new symptoms - go to Er for increased Shortness of breath, chest pain, palpitations, or any other urgent concern. 2. Shortness of breath - ICD9: 786.05, ICD10: R06.02 As above 3. Wheezing - ICD9: 786.07, ICD10: R06.2 See #1 Prescription instructions reviewed with patient as applicable. Potential red flag symptoms discussed with the patient. Reviewed appropriate action plan to take if red flag symptoms occur. Patient agreeable to treatment plan. During this patient visit I have spent approximately 15 minutes in counseling regarding treatment options, medications, and coordinating care. Oralia Charles APRN.CNP documented in this encounter [facility] 05-05-2022 History of Present illness Narrative Patient endorses the following symptoms (negative unless marked positive): General Chest Muscle/Bone/Nerve Fatigue Chest pain x Joint pain Fevers Palpitations Muscle aches Night sweats Cough Weakness Feeling ill Shortness of breath Numbness Weight loss/gain Wheezing Head/Eyes Abdomen Mental Health x Headaches Nausea/Vomiting Feeling sad x Dizziness Heartburn Feeling anxious Stiff neck Constipation Thoughts of hurting Eye pain/discharge Diarrhea self or others Vision change/concern Blood in BM s Ears/Nose/Throat Urinary Skin Hearing concern Pain with urination Rash Ear pain Difficulty urinating Skin growth/lesion Runny nose Incontinence Dry skin Sore throat Blood in urine Itchy skin -fell on Tuesday and went to -told possible mild concussion, sprained ankle -still having MCNEAL -no dizziness or vomiting 05/05/2022 Chief Complaint Chief Complaint Patient presents with Head Injury HPI Liliam Thompson is a 31 y.o. female who presents today for follow up of chronic medical problems. 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 [employer] Patient endorses the following symptoms (negative unless marked positive): General Chest Muscle/Bone/Nerve Fatigue Chest pain x Joint pain Fevers Palpitations Muscle aches Night sweats Cough Weakness Feeling ill Shortness of breath Numbness Weight loss/gain Wheezing Head/Eyes Abdomen Mental Health x Headaches Nausea/Vomiting Feeling sad x Dizziness Heartburn Feeling anxious Stiff neck Constipation Thoughts of hurting Eye pain/discharge Diarrhea self or others Vision change/concern Blood in BM s Ears/Nose/Throat Urinary Skin Hearing concern Pain with urination Rash Ear pain Difficulty urinating Skin growth/lesion Runny nose Incontinence Dry skin Sore throat Blood in urine Itchy skin -fell on Tuesday and went to -told possible mild concussion, sprained ankle -still having MCNEAL -no dizziness or vomiting Patient Active Problem List Diagnosis Migraine without status migrainosus, not intractable Periodic fever syndrome Current Outpatient Medications Medication Sig atenolol 25 MG tablet Take 25 mg by mouth 2 times daily. azelastine 0.1 % Solution nasal spray 2 sprays by Does Not Apply route Every 12 hours as needed. FLUoxetine 20 MG capsule Take 20 mg by mouth daily. fluvoxaMINE 100 MG tablet Take 200 mg by mouth daily. Levocetirizine Dihydrochloride 5 MG tablet Take 5 mg by mouth as needed. Levonorgestrel 20 MCG/DAY 1 Each by Intrauterine route. montelukast 10 MG tablet Take 1 tablet by mouth at bedtime. naratriptan 2.5 MG tablet Take 2.5 mg by mouth. zonisamide 100 MG capsule TAKE 3-4 CAPSULES AT BEDTIME. Oral Electrolytes (Pedialyte Freezer Pops) Solution Take 948 mL by mouth daily. predniSONE 5 MG tablet Take 5 mg by mouth daily. (Patient not taking: Reported on 05/05/2022) Immunization History Administered Date(s) Administered COVID-19 vaccine, MELODIE-SUCROSE, Pfizer, 0.3 ML 09/28/2021 COVID-19 vaccine, mRNA, Pfizer, 0.3 ML 10/11/2020, 11/01/2020, 04/06/2021 DTP Vaccine 1992, 02/17/1993, 04/15/1993 DTaP 10/23/1994, 03/17/1998 HPV Vaccine, Quadrivalent 05/09/2007, 06/14/2007, 01/14/2010 Hep A Vaccine, Unspecified 03/17/2011 Hepatitis A Vaccine 03/17/2011 Hepatitis B Vaccine 04/02/2005, 05/31/2005, 04/04/2006 Hib Vaccine, HbOC 1992, 02/17/1993, 04/15/1993, 10/23/1994 Influenza Vaccine, Trivalent 04/06/2021 MMR Vaccine 02/02/1994, 03/17/1998 Meningococcal Vac MCV4, Unspecified 04/02/2005 Meningococcal Vaccine (Polysaccharide) 04/02/2005, 04/15/2011 OPV 1992, 02/17/1993, 10/23/1994, 03/17/1998 Pneumococcal Polysac 23-Valent Vaccine 05/15/2014 Polio Vaccine, Unspecified 04/06/1994 Td Vaccine 04/02/2005 Tdap Vaccine 03/17/2011, 03/08/2019 Physical Examination Blood pressure 102/76, pulse 78, weight 121.1 kg (267 lb), SpO2 99 %. Vitals reviewed. Constitutional:well appearing, in NAD. Head: NCAT Ears/Mouth/Throat: External examination of ears and nose without lesions, rashes, or masses. TMs normal bilaterally. Oropharynx is clear, no pharyngeal erythema or oral lesions. Eyes: Conjunctivae normal. EOMI intact. Neck: Normal ROM. Neck supple. No JVD present. No thyromegaly present. Cardiovascular: RRR, no murmurs, no edema Pulmonary/Chest: CTAB, normal respiratory effort. No wheezes or rales. Abdominal: soft, NT, ND, normal BS. No masses, no hepatospenomegaly. Skin: Skin is warm and dry. No rash noted. No erythema. Psychiatric: Mood and affect normal. AAO x 3 Labs No results found for: CHOLESTEROL] No results found for: HGBA1C No results found for: SODIUM, POTASSIUM, CHLORIDE, CO2, BUN, CREATSERUM, GLUCOSE No results found for: WBC, WBCCOUNT, WBCFETAL, HGB, HCT, PLATELET, MCV Assessment and Plan ICD-10-CM 1. Concussion without loss of consciousness, subsequent encounter S06.0X0D discussed symptoms of concussion with patient today. Focus on adequate sleep, healthy eating, hydration. Would try to avoid screens when possible, avoid strenuous exercise Requested Prescriptions No prescriptions requested or ordered in this encounter documented in this encounter [facility] 05-02-2022 Instructions Addie Herrera DO - 05/02/2022 10:32 AM EDT Rest, ice, elevate. Take Tylenol for pain and swelling. For your head, apply cool compress. Avoid any strenuous activity, physically, cognitively temporarily Clean the wound with warm water and Dial soap. Monitor for signs of infection. Any acutely worsening symptoms please go to the emergency department Follow-up with your primary care physician early next week. The following attachments cannot be sent through Care Everywhere.Head Injury: Closed: General Info (Serbian)Ankle Sprain (Serbian)Abrasions (Serbian)documented in this encounter [facility] 05-02-2022 History of Present illness Narrative The wound is cleansed of foreign material as much as possible, and dressed. The patient is alerted to watch for any signs of infection (redness, pus, pain, increased swelling or fever) and call if such occurs. Applied Non-Stick dressing to area, patient tolerated well. Checked circulation, skin is evenly toned and good refill. Home wound care instructions are provided. Tetanus vaccination status reviewed: tetanus status unknown to the patient. Images from the original note were not included. Patient Name: [facility] Location: Liliam Thompson [address] [id number] Date Of : Date Of Visit: 1990 05/02/2022 MRN# Provider: [id number] Addie Herrera DO Chief Complaint Patient presents with Head Injury Pt fell and hit her head on side of her apartment building x today, no LOC Assessment & Plan 1. Closed head injury, initial encounter 2. Contusion of scalp, initial encounter 3. Abrasion 4. Fall, initial encounter 5. Injury of right ankle, initial encounter XR Ankle Right 3+ Views (Standard) 6. Sprain of right ankle, unspecified ligament, initial encounter Apply pipo wrap No follow-ups on file. Medical Decision Making Nontoxic-appearing 31-year-old female presenting with a fall with multiple injuries after a mechanical fall. No focal defect. Given her prior history of fracture to her left foot, along with tenderness to palpation to the distal fibula on the right, x-ray ordered. The superficial abrasion was cleaned with Hibiclens and sterile water by staff, as noted above. Her tetanus is up-to-date within the past 5 years. X-ray personally reviewed, no acute fracture or dislocation noted. Pipo wrap given to help with the compression. Recommend taking Tylenol for pain, icing it. Wound precaution given. Strict ED return precaution given. Recommend to follow-up with PCP early next week. Patient was given opportunity to ask any questions, and all questions were answered appropriately. Patient understood and agreed. Stable at discharge. Portions of this note utilized [employer] software. There is the possibility of grammatical or textual errors inherent to this technology that may be missed during proofreading. Radiology overread pending. Reviewed, noted below. Additional Clinical Comments Educated patient and/or guardian about signs and symptoms that would warrant further immediate evaluation. Recommended that they should return to urgent care, make an appointment with their family physician, or go to the emergency room if symptoms persist or get acutely worse. Recommended follow up within the next week with their PCP or to get established with a PCP soon in order to follow up appropriately. Subjective 31 y.o. female presents with Head Injury (Pt fell and hit her head on side of her apartment building x today, no LOC) HPI Patient had a mechanical fall this morning. She was holding a puppy, and on the last few steps, she tripped, and sustained a contusion to the right parietal region of her right scalp, abrasion on her right elbow, and twisted her right ankle. No loss of consciousness. She reports that she fell on her buttocks. Did not clean the wound. Has a pcp through [facility]. No pain w/ wt bearing. Patient is not on blood thinner. Denied any bleeding. Review Of Systems Review of Systems Constitutional: Positive for fatigue. Negative for chills and fever. HENT: Negative for nosebleeds and postnasal drip. Eyes: Negative for visual disturbance. Respiratory: Negative for shortness of breath. Cardiovascular: Negative for chest pain. Gastrointestinal: Negative for abdominal pain, blood in stool, nausea and vomiting. Genitourinary: Negative for flank pain, frequency and hematuria. Musculoskeletal: Positive for arthralgias and joint swelling. Skin: Positive for wound. Neurological: Positive for headaches (contusion right scalp). Negative for dizziness, seizures, syncope, weakness, light-headedness and numbness. Medical History Past Medical History: Diagnosis Date Anxiety Asthma Depression Inflammatory arthritis Migraine MAXWELL (obstructive sleep apnea) Periodic fever syndrome (HCC) POTS (postural orthostatic tachycardia syndrome) PTSD (post-traumatic stress disorder) Suicide attempt by acetaminophen overdose (HCC) Vitamin D deficiency History reviewed. No pertinent surgical history. There is no problem list on file for this patient. Social History Social History Tobacco Use Smoking status: Never Smokeless tobacco: Never Vaping Use Vaping Use: Never used Substance Use Topics Alcohol use: Yes Drug use: Never Family History History reviewed. No pertinent family history. Objective Physical Exam BP 135/82 Pulse 93 Temp 98.1 F (36.7 C) (Tympanic) Resp 17 Ht 5' 1.5 Wt 122.9 kg (271 lb) LMP (LMP Unknown) SpO2 95% BMI 50.38 kg/m Vision/Hearing Exam:No results found. Physical Exam Vitals and nursing note reviewed. Constitutional: General: She is not in acute distress. Appearance: She is well-developed. She is not toxic-appearing or diaphoretic. HENT: Head: Normocephalic. Right Ear: External ear normal. Left Ear: External ear normal. Ears: Comments: Negative hemotympanums bilateral. Nose: Nose normal. Mouth/Throat: Mouth: Mucous membranes are moist. Pharynx: No oropharyngeal exudate or posterior oropharyngeal erythema. Eyes: General: Right eye: No discharge. Left eye: No discharge. Extraocular Movements: Extraocular movements intact. Conjunctiva/sclera: Conjunctivae normal. Pupils: Pupils are equal, round, and reactive to light. Neck: Comments: No C-spine tenderness. Cardiovascular: Rate and Rhythm: Normal rate and regular rhythm. Heart sounds: No murmur heard. Pulmonary: Effort: Pulmonary effort is normal. No respiratory distress. Breath sounds: No stridor. No wheezing, rhonchi or rales. Abdominal: General: There is no distension. Palpations: Abdomen is soft. Tenderness: There is no abdominal tenderness. There is no right CVA tenderness, left CVA tenderness or guarding. Comments: No ecchymosis noticed on her torso., Or on her abdomen. Musculoskeletal: General: Swelling and tenderness present. Normal range of motion. Arms: Cervical back: Normal range of motion and neck supple. No rigidity or tenderness. Feet: Comments: Negative thoracal lumbar spinous process tenderness. Lymphadenopathy: Cervical: No cervical adenopathy. Skin: Findings: Rash present. Neurological: General: No focal deficit present. Mental Status: She is alert and oriented to person, place, and time. GCS: GCS eye subscore is 4. GCS verbal subscore is 5. GCS motor subscore is 6. Cranial Nerves: No cranial nerve deficit, dysarthria or facial asymmetry. Motor: Motor function is intact. No weakness. Coordination: Coordination normal. Qdnaob-Tmjt-Yoldte Test normal. Gait: Gait is intact. Gait normal. Comments: Strength intact 5/5 throughout.. Psychiatric: Behavior: Behavior normal. Thought Content: Thought content normal. Judgment: Judgment normal. Procedure Notes Procedures Results No results found for this or any previous visit (from the past 168 hour(s)). No orders to display Orders Placed This Visit Orders Placed This Encounter Procedures XR Ankle Right 3+ Views (Standard) Apply pipo wrap FINDINGS: Frontal, oblique and lateral views were obtained. IMPRESSION: 1. The osseous alignment is intact. No acute fracture or dislocation. 2. Small plantar calcaneal enthesophyte is noted. 3. Small tibiotalar joint effusion is difficult to exclude on the lateral image. 4. Mild hypertrophic osseous change involving the dorsal aspect of the navicular with mild arthritic changes at the talonavicular articulation noted. SKS/jcw Medication List At End Of Visit Current Outpatient Medications Medication Sig Dispense Refill atenoloL (TENORMIN) 25 MG tablet Take 1 (one) tablet (25 mg total) by mouth 2 (two) times a day . cholecalciferol, vitamin D3, 1,250 mcg (50,000 unit) capsule Take 1 (one) capsule by mouth twice weekly . colchicine 0.6 mg tablet Take 1 (one) tablet (0.6 mg total) by mouth 2 (two) times a day . FLUoxetine (PROZAC) 20 MG capsule Take 1 (one) capsule (20 mg total) by mouth daily . fluvoxaMINE (LUVOX) 100 MG tablet Take 2 (two) tablets (200 mg total) by mouth daily . Ilaris, PF, 150 mg/mL Soln levonorgestreL (MIRENA) 20 mcg/24 hours (7 yrs) 52 mg IUD 1 (one) each by Intrauterine route See Admin Instructions . montelukast (SINGULAIR) 10 mg tablet Take 1 (one) tablet (10 mg total) by mouth at bedtime TAKE 1 TABLET BY MOUTH EVERYDAY AT BEDTIME . propranoloL (INDERAL) 10 MG tablet TAKE 1-2 TABLETS BY MOUTH TWICE DAILY NEEDED (PALPITATIONS OR TREMORS). zonisamide (ZONEGRAN) 100 MG capsule TAKE 3-4 CAPSULES AT BEDTIME. No current facility-administered medications for this visit. Patient Instructions Rest, ice, elevate. Take Tylenol for pain and swelling. For your head, apply cool compress. Avoid any strenuous activity, physically, cognitively temporarily Clean the wound with warm water and Dial soap. Monitor for signs of infection. Any acutely worsening symptoms please go to the emergency department Follow-up with your primary care physician early next week. documented in this encounter [facility] 04-16-2022 History of Present illness Narrative Patient endorses the following symptoms (negative unless marked positive): General Chest Muscle/Bone/Nerve Fatigue Chest pain Joint pain Fevers Palpitations Muscle aches Night sweats Cough Weakness Feeling ill Shortness of breath Numbness Weight loss/gain Wheezing Head/Eyes Abdomen Mental Health Headaches Nausea/Vomiting Feeling sad Dizziness Heartburn Feeling anxious Stiff neck Constipation Thoughts of hurting Eye pain/discharge Diarrhea self or others Vision Blood in BM s Ears/Nose/Throat Urinary Skin Hearing concern Pain with urination Rash Ear pain Difficulty urinating Skin growth/lesion Runny nose Incontinence Dry skin Sore throat Blood in urine Itchy skin Provider-Mario Vazquez MD Studio Musician-Clinical, Division of Internal Medicine [facility] [address] [place] [address] Chief Complaint Patient presents with [facility] HPI Liliam Thompson is a 31 y.o. female who comes in with the following complaint(s): Problem Migraine Without Status Migrainosus, Not Intractable Periodic Fever Syndrome new to my practice Moved here for the job. 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 Whitman in [facility]. She will continue to see him Currently on Prednisone 5 mg for 1 month. POTS- Since childhood. Dx'ed by neurologist BP goes up/ pulse goes high. Atenolol for this. 25 mg once or twice a day Psych issues- good Allergies- Singulair for this. Used to see Clinical Rehabilitation Liaison. Environmental/ Latex. Neurologist in [facility]- Dr. Lyons Migraine 3-4 times a week Plan at [facility]: Assessment and Plan: 30 year old female is evaluated in the Rheumatology Clinic for an undifferentiated periodic fever syndrome. 1. Periodic fever syndrome (HCC) - ICD9: 277.31, ICD10: M04.1 -Chronic intermittent fevers since age 18 with migrating arthralgias (initially diagnosed as inflammatory arthritis), costochondritis, rashes, sore throat, with persistently elevated inflammatory markers. -Unclear etiology - previously evaluated by hematology and ID with no e/o malignancy or infection. -No genetic testing done for periodic fever as denied by insurance -Negative work up for other autoimmune disease other than low titer positive MILLI -Dramatic response to IL1 inhibitors (Canakinumab better than Anakinra), colchicine, and prednisone PRN -Continue current regimen as above -Check labs today and when she has a flare 2. Chronic bilateral low back pain without sciatica - ICD9: 724.2, 338.29, ICD10: M54.5, G89.29 -Patient has some features of an inflammatory back pain as well as some entheseal findings. She has a strong family history of psoriasis and an indeterminate HLA B27 -Normal SI joint imaging previously however may consider a repeat MRI in the future. Discussed again today but deferred -Continue Meloxicam as needed -Recommend physical therapy 3. 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 Immunosuppression (HCC) - ICD9: 279.9, ICD10: D84.9 -Patient is on immunomodulatory therapy and requires regular monitoring of blood work -Respective labs have been ordered and patient understands that medications cannot be safely prescribed without reviewing the labs. PAST MEDICAL HISTORY No past medical history on file. PAST SURGICAL HISTORY No past surgical history on file. FAMILY HISTORY History reviewed. No pertinent family history. Social History Social History Narrative Not on file Social History Tobacco Use Smoking status: Never Smoker Smokeless tobacco: Never Used Allergies Allergen Reactions Latex Hives Outpatient Medications Prior to Visit Medication Sig Dispense Refill atenolol 25 MG tablet Take 25 mg by mouth 2 times daily. azelastine 0.1 % Solution nasal spray 2 sprays by Does Not Apply route Every 12 hours as needed. FLUoxetine 20 MG capsule Take 20 mg by mouth daily. fluvoxaMINE 100 MG tablet Take 200 mg by mouth daily. Levocetirizine Dihydrochloride 5 MG tablet Take 5 mg by mouth as needed. Levonorgestrel 20 MCG/DAY 1 Each by Intrauterine route. montelukast 10 MG tablet Take 1 tablet by mouth at bedtime. naratriptan 2.5 MG tablet Take 2.5 mg by mouth. Oral Electrolytes (Pedialyte Freezer Pops) Solution Take 948 mL by mouth daily. predniSONE 5 MG tablet Take 5 mg by mouth daily. zonisamide 100 MG capsule TAKE 3-4 CAPSULES AT BEDTIME. No facility-administered medications prior to visit. Current Outpatient Medications Medication Sig atenolol 25 MG tablet Take 25 mg by mouth 2 times daily. azelastine 0.1 % Solution nasal spray 2 sprays by Does Not Apply route Every 12 hours as needed. FLUoxetine 20 MG capsule Take 20 mg by mouth daily. fluvoxaMINE 100 MG tablet Take 200 mg by mouth daily. Levocetirizine Dihydrochloride 5 MG tablet Take 5 mg by mouth as needed. Levonorgestrel 20 MCG/DAY 1 Each by Intrauterine route. montelukast 10 MG tablet Take 1 tablet by mouth at bedtime. naratriptan 2.5 MG tablet Take 2.5 mg by mouth. Oral Electrolytes (Pedialyte Freezer Pops) Solution Take 948 mL by mouth daily. predniSONE 5 MG tablet Take 5 mg by mouth daily. zonisamide 100 MG capsule TAKE 3-4 CAPSULES AT BEDTIME. We did the med reconciliation to the best of the ability. Some of the meds that are listed in the patients chart a which are not refilled by me are listed as they are managed by other physicians and other offices. Review of Systems Constitutional: Negative for fever, chills, weight loss, weight gain and malaise/fatigue. Skin: Negative for rash, itching, dry skin and skin lesions. HENT: Negative for hearing loss, congestion, hoarse voice, rhinorrhea and sinus pain. There is no ear discharge. Cardiovascular: Negative for chest pain, dyspnea on exertion, palpitations, claudication and leg swelling. Respiratory: Negative for cough and hemoptysis. Is not experiencing shortness of breath or wheezing. Gastrointestinal: Negative for heartburn, abdominal pain, diarrhea and blood in stool. Musculoskeletal: Negative for myalgias, back pain, joint pain and falls. Neurological: Negative for dizziness, tingling, tremors, focal weakness, seizures and headaches. Psychiatric: Negative for depression, hallucinations and memory loss. The patient does not have insomnia. Allergy/Immunology: Negative for environmental allergies and urticaria. Lymph/Heme: Negative for bruises/bleeds easily and lymph node swelling. Endocrine: Negative for polydipsia and hot flashes. Patient endorses the following symptoms (negative unless marked positive): General Chest Muscle/Bone/Nerve Fatigue Chest pain Joint pain Fevers Palpitations Muscle aches Night sweats Cough Weakness Feeling ill Shortness of breath Numbness Weight loss/gain Wheezing Head/Eyes Abdomen Mental Health Headaches Nausea/Vomiting Feeling sad Dizziness Heartburn Feeling anxious Stiff neck Constipation Thoughts of hurting Eye pain/discharge Diarrhea self or others Vision Blood in BM s Ears/Nose/Throat Urinary Skin Hearing concern Pain with urination Rash Ear pain Difficulty urinating Skin growth/lesion Runny nose Incontinence Dry skin Sore throat Blood in urine Itchy skin Physical Exam Vitals: 04/16/22 0805 BP: 128/90 Pulse: 102 SpO2: 98% Weight: 122.9 kg (271 lb) Height: 1.57 m (5' 1.81 ) Constitutional: well developed, nourished, and not distressed. HENT: normal TM and EACs bilaterally normal nasal mucosa bilaterally Oropharynx with PND but no erythema Head: Normocephalic and atraumatic. Eyes: Conjunctivae are normal. Anicteric. Neck: Neck supple. No cervical Lymphadenopathy. No masses. Normal thyroid Cardiovascular: Normal rate, regular rhythm, normal heart sounds. No edema Pulmonary/Chest: Effort normal. No respiratory distress. no wheezes. no rales. no tenderness. Abdominal: Bowel sounds are normal. Soft. Nontender. No masses. No hernias Musculoskeletal: Normal range of motion all extremities. no tenderness. Gait normal. Neurological: Cranial Nerves grossly intact. Patellar reflexes normal. Skin: Skin is warm and dry to palpation on upper extremities. . No rash noted. Psychiatric: alert and oriented times three. Mood, memory, affect and judgment normal. PLAN: ICD-10-CM 1. Migraine without status migrainosus, not intractable, unspecified migraine type G43.909 2. IUD check up Z30.431 AMB REFERRAL TO GYNECOLOGY 3. Morbid obesity E66.01 4. Periodic fever syndrome M04.1 Orders Placed This Encounter AMB REFERRAL TO GYNECOLOGY atenolol 25 MG tablet FLUoxetine 20 MG capsule Levonorgestrel 20 MCG/DAY Levocetirizine Dihydrochloride 5 MG tablet montelukast 10 MG tablet naratriptan 2.5 MG tablet Oral Electrolytes (Pedialyte Freezer Pops) Solution predniSONE 5 MG tablet zonisamide 100 MG capsule fluvoxaMINE 100 MG tablet azelastine 0.1 % Solution nasal spray Continue acting upon the advises given in the office visit today. Signs and symptoms of emergency were discussed. Signs and symptoms of infection were discussed. Call the office if no improvement. Risks benefits side- effects, alternatives of the treatment were discussed. Patient voiced understanding to the plan. All questions were answered to the patient satisfaction. F/ U with the respective specialists. For any new medications prescribed today, patient was educated about indications for the medication, how to take the medication and potential side effects of the medications. LARON English No results found for this or any previous visit. Health Maintenance Due Topic Date Due HEPATITIS C VIRUS SCREENING Never done PREVENTATIVE HEALTH VISIT Never done HIV SCREENING DISCUSSION Never done CERVICAL CANCER SCREENING DISCUSSION Never done INFLUENZA VACCINE (1) 04/15/2022 documented in this encounter [facility] 04-16-2022 Instructions Jazmín Almazan MA - 04/16/2022 8:00 AM EDT Gynecology Scheduling Number; [phone] documented in this encounter [facility] 04-12-2022 Miscellaneous Notes Physician: Dr. Lyons Call from patient requesting refill. Please E-Scribe Last OV: 11/17/2021 Future OV: NA Requested Prescriptions Pending Prescriptions Disp Refills zonisamide (ZONEGRAN) 100 mg capsule 120 capsule 11 Sig: Take 3-4 caps at bedtime. naratriptan (AMERGE) 2.5 mg tablet 9 tablet 11 Sig: Take 1 tablet by mouth as needed for migraine headache (see administration instructions). 2.5 mg at onset of headache, may repeat in 4 hours if needed FYI: please ignore the AMERGE refill request, pt have 11 refills on 11/2021. Patient said refill was that's why she send request for both. Pharmacy Name: [facility]/pharmacy Pharmacy Phone #: [phone] Stefani Rangel documented in this encounter [facility] 04-07-2022 Miscellaneous Notes Appt rescheduled Alysa Huggins LPN LMOM to return call Patient can be seen sooner Can offer 04/09 or 04/15 at 11:00 am Alysa Huggins LPN documented in this encounter [facility] 03-30-2022 History of Present illness Narrative This note was created using [employer]. Subjective Liliam Thompson is a 31 year old female. No chief complaint on file. SUBJECTIVE: Liliam Thompson is a 31 year old year old lady here today for 4 month follow up appointment for review of medical conditions. POTS flared up with COVID Chest pain worse after flu then even worse after COVID. Some pleurisy symptoms. Some tenderness. Costochondritis symptoms. Moved from middle chest to MCL on left and under breast. Was on taper in February and better on steroid but worse off. Told that sore throat episode are from flare periodic fever syndrome. On prednisone 5mg daily to see if helps--on for 30 days. Prednisone 40 mg daily from provider in [place]. Did not help much for the chest pressure discomfort. Not typical of pleurisy. Swelling over sternum comes and goes. Cough responds to steroids. PAST MEDICAL HISTORY Diagnosis Date Anxiety Angeli Constantino Asthmatic bronchitis recurrent episodes since pneumonia fall and winter 2011 Depression Angeli Constantino Epigastric abdominal pain Fibromyalgia Dr. 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 @[facility] Migraine with aura visual aura; diagnosed with complex migraines Nausea MAXWELL (obstructive sleep apnea) 03/10/2016 PMH - PAST MEDICAL HISTORY OF age 3 1/2 febrile seizures-with varicella PMH - PAST MEDICAL HISTORY OF 6-7 months dislocated elbow PMH - PAST MEDICAL HISTORY OF menarche age 14 years PMH - PAST MEDICAL HISTORY OF 1997 normal color vision POTS (postural orthostatic tachycardia syndrome) 04/23/2018 Rectal bleeding Sinus arrhythmia Snoring Suicide attempt by acetaminophen overdose ([facility]) 06/2014 Syncope Vomiting Current Outpatient Medications Medication Sig predniSONE (DELTASONE) 5 mg tablet Take 1 tablet by mouth once daily. Needle, Disp, 25 G (BD DISPOSABLE NEEDLES) 25 gauge x 5/8 ndle 1 Syringe every 4 weeks. Syringe with Needle, Disp, (BD TUBERCULIN SYRINGE) 1 mL 27 x 1/2 every 4 weeks. canakinumab, PF, (ILARIS, PF,) 150 mg/mL injection INJECT 150 MG (1 ML) UNDER THE SKIN EVERY 4 WEEKS colchicine 0.6 mg tablet Take 1 tablet by mouth twice daily. propranolol (INDERAL) 10 mg tablet Take 1-2 tablets by mouth twice daily as needed (palpitations or tremors). atenolol (TENORMIN) 25 mg tablet Take 1 tablet by mouth twice daily. as directed levonorgestrel (MIRENA) 20 mcg/24 hours (7 yrs) 52 mg IUD 1 Each by INTRAUTERINE route as directed. fluvoxaMINE (LUVOX) 100 mg tablet Take 2 tablets by mouth once daily. FLUoxetine (PROZAC) 20 mg capsule Take 1 capsule by mouth once daily. naratriptan (AMERGE) 2.5 mg tablet Take 1 tablet by mouth as needed for migraine headache (see administration instructions). 2.5 mg at onset of headache, may repeat in 4 hours if needed levocetirizine (XYZAL) 5 mg tablet Take 5 mg by mouth as needed. azelastine (ASTELIN) 0.1% nasal spray Use 2 Sprays in each nostril twice daily as needed. montelukast (SINGULAIR) 10 mg tablet Take 1 tablet by mouth daily at bedtime. Pedialyte (PEDIALYTE) soln Take 948 mL by mouth once daily. Diagnosis: POTS I49.8 albuterol HFA (PROAIR HFA) 90 mcg/actuation inhaler Inhale 2 Puffs as instructed every 4 hours as needed. zonisamide (ZONEGRAN) 100 mg capsule Take 3-4 caps at bedtime. meloxicam (MOBIC) 15 mg tablet Take 1 tablet by mouth once daily as needed. triamcinolone acetonide (NASACORT) 55 mcg nasal inhaler Use 2 Sprays in the nose once daily. cholecalciferol, Vitamin D3, (VITAMIN D3) 1,250 mcg (50,000 unit) cap capsule Take 1 capsule by mouth two times a week. No current facility-administered medications for this visit. Review of Systems Objective LMP 12/31/2021 Physical Exam Constitutional: Appearance: Normal appearance. HENT: Head: Normocephalic. Eyes: Conjunctiva/sclera: Conjunctivae normal. Cardiovascular: Rate and Rhythm: Normal rate and regular rhythm. Heart sounds: Normal heart sounds. Pulmonary: Effort: Pulmonary effort is normal. Breath sounds: Normal breath sounds. Musculoskeletal: Right lower leg: Edema (trace) present. Left lower leg: Edema (trace) present. Skin: General: Skin is warm and dry. Neurological: General: No focal deficit present. Mental Status: She is alert and oriented to person, place, and time. Psychiatric: Mood and Affect: Mood normal. Behavior: Behavior normal. Thought Content: Thought content normal. Judgment: Judgment normal. swelling over manubrium/sternum Assessment and Plan Encounter Diagnosis ICD-10-CM 1. POTS (postural orthostatic tachycardia syndrome) I49.8 2. Pleuritic chest pain R07.81 3. Costochondritis M94.0 4. Periodic fever syndrome (HCC) M04.1 Being treated with prednisone to see if helps. Continues following with specialist 5. Cough, unspecified type R05.9 responding to steroids 6. Class 3 severe obesity due to excess calories with body mass index (BMI) of 50.0 to 59.9 in adult, unspecified whether serious comorbidity present (HCC) E66.01 Z68.43 Above issues addressed with patient. Needs to keep working on diet and exercise with lifestyle changes for effective weight loss as well as prevention of DM, and control of BP and lipids. Patient involved in shared decision making for management of medical issues. History and medications reviewed. Epic updated as needed Refills and/or prescriptions taken care of and meds adjusted as indicated after reviewed history, exam and labs. Health Maintenance reviewed. Updated record and/or ordered tests as recorded. Encouraged on efforts at healthy diet and regular exercise and adequate sleep. Faustina Carcamo MD documented in this encounter [facility] 02-27-2022 History of Present illness Narrative Behavioral Health Social Work Assessment Patient was seen for an initial evaluation. All information is from patient report except when noted. This evaluation is NOT intended for forensic, disability, or child custody purposes. Informed consent was discussed and signed by the patient -Pt was sent [employer] with consent for tx -Pt read [email or web address] DBA eGifter msg, agreed [facility] Assessment: Virtual Pt location: Home/residence/[facility] location: Non [facility] facility PRESENT: Self Patient identified for [facility] from: PCP (Dr Carcamo) Reason for referral: [facility] Assessment (failed mental health tx, depression) [facility] encounter type: Virtual Visit Attempts to Outreach: 4 attempts Screening completed during encounter: PHQ-9;DARLIN-7;MDQ CHIEF COMPLAINT: 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 and tried to find a psychiatrist, I moved,to [place], my panic attacks have gotten worse,I need to establish care,no one takes my insurance or they are booking 6 months out HPI: Pt is a 31yr old single white female who has been diag and tx for Bulimia Nervosa, Dysthymic Disorder, Generalized Anxiety Disorder, Major Depressive Disorder, Obsessive Compulsive Disorder, Panic Disorder and Post-Traumatic Stress Disorder 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5months -anxiety has increased since she moved to [place] -rates depression #4 (scale 1-10 10=severe) x couple days -denies current suicidal thoughts, plans or intent :h/o cutting,thighs, stomach -age 18-age 19 -intent not to kill self -at was 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, release own pain, have control -h/o Suicide Attempt(s) -x3 all in 2013, [facility],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 Abnormal TSH T3 FREE BLD [SQFREET3] 02/22/22 04/24/22 11/23/21 Auth. provider: Faustina Carcamo MD Assoc. diagnoses: Abnormal TSH THYROID PEROXIDASE ANTIBODY BLOOD [SQMICRO] 02/22/22 04/24/22 11/23/21 Auth. provider: Faustina Carcamo MD Assoc. diagnoses: Abnormal TSH Margaret Ceja RN documented in this encounter [facility] 01-05-2022 Instructions Genaro Morales APRN.SPORTS TEACHER - 01/05/2022 2:56 PM EDT OK to resume colchicine Take meloxicam daily for then next 2-3 days Let us know if not feeling improved documented in this encounter [facility] 01-05-2022 History of Present illness Narrative SUBJECTIVE: There are no preventive care reminders to display for this patient. HPI Liliam Thompson is a 31 year old female. PMH significant for ACTIVE PROBLEM LIST Inappropriate Sinus Node Tachycardia Fibromyalgia Depression Anxiety Sprain of Lumbar Region Neurocirculatory Asthenia Vitamin D Deficiency Vomiting Nausea Obesity, Class Iii, Bmi 40-49.9 (Morbid Obesity) (Hcc) Numbness and Tingling Tremor of Unknown Origin Double Vision Maxwell (Obstructive Sleep Apnea) Migraine With Aura Muscle Twitching Bulimia Eating Disorder Thrombocytosis Recurrent Fever Periodic Fever Syndrome (Hcc) Pain in Joint, Multiple Sites Chronic Midline Low Back Pain Without Sciatica Immunosuppression (Hcc) Acute Left Ankle Pain Left Ankle Strain, Sequela Loose Body in Left Ankle Closed Nondisplaced Fracture of Navicular Bone of Left Foot Sprain of Anterior Talofibular Ligament of Left Ankle Sprain of Tibiofibular Ligament of Left Ankle Chronic Pain of Left Ankle Liliam Thompson was seen on video visit for COVID-19 on December 29, 2021. Treated with Paxil noted. Presents today for routine follow-up visit. She called into the office earlier today with report of syncopal episode on Jan 02 2022. States she was moving things into her apartment had shortness of breath increased heart rate chest discomfort vomited and passed out. Reports she had dialed 911 for passing out. She states she was checked by the squad he said her BP was normal and she seemed okay so she was not taken to the emergency department. History of POTS, tilt table 2018. On arrival states she did not pass out but felt like she might. She reports driving to [place] on January 02. Notes chest wall discomfort, states that this occurred after driving and before moving boxes on the same date while ill. She notes chest wall discomfort persists. Has not obtained colchicine due to taking apixaban. Not currently taking prednisone which he occasionally takes for flares. Has not been taking meloxicam either. She notes breathing is much improved. Some coughing especially in the morning otherwise much improved. Some shortness of breath on exertion but this is improving as well. Notes maintaining hydration about 2 L/day. Has been able to take 3 meals as well. Review of Systems Constitutional: Negative. Respiratory: Positive for cough and shortness of breath. Musculoskeletal: Positive for arthralgias. Objective LMP 12/04/2021 Physical Exam Vitals and nursing note reviewed. Constitutional: Appearance: Normal appearance. HENT: Head: Normocephalic and atraumatic. Eyes: Conjunctiva/sclera: Conjunctivae normal. Cardiovascular: Rate and Rhythm: Normal rate and regular rhythm. Heart sounds: Normal heart sounds. Comments: chest discomfort not reproducible on exam Pulmonary: Effort: Pulmonary effort is normal. Breath sounds: Normal breath sounds. Skin: General: Skin is warm and dry. Neurological: General: No focal deficit present. Mental Status: She is alert and oriented to person, place, and time. ALLERGIES Allergen Reactions Latex, Natural Rubb* Hives Seasonal Allergies Unknown GRASSES, WEEDS AND RAGWEED VERIFIED BY SKIN TESTING MEDICATIONS levonorgestrel (MIRENA) 20 mcg/24 hours (7 yrs) 52 mg IUD 1 Each by INTRAUTERINE route as directed. fluvoxaMINE (LUVOX) 100 mg tablet Take 2 tablets by mouth once daily. FLUoxetine (PROZAC) 20 mg capsule Take 1 capsule by mouth once daily. naratriptan (AMERGE) 2.5 mg tablet Take 1 tablet by mouth as needed for migraine headache (see administration instructions). 2.5 mg at onset of headache, may repeat in 4 hours if needed Norethindrone, Contraceptive, 0.35 mg tablet TAKE 1 TABLET BY MOUTH EVERY DAY miSOPROStol (CYTOTEC) 200 mcg tablet Insert 2 tabs vaginally the night prior to procedure and 2 tabs morning of procedure ILARIS, PF, 150 mg/mL injection INJECT 150 MG (1 ML) UNDER THE SKIN EVERY 4 WEEKS colchicine 0.6 mg tablet TAKE 1 TABLET BY MOUTH TWICE A DAY predniSONE (DELTASONE) 5 mg tablet Take 20mg by mouth daily for 3 days, then decrease by 5mg every 3 days until off. levocetirizine (XYZAL) 5 mg tablet Take 5 mg by mouth as needed. azelastine (ASTELIN) 0.1% nasal spray Use 2 Sprays in each nostril twice daily as needed. montelukast (SINGULAIR) 10 mg tablet Take 1 tablet by mouth daily at bedtime. LIFESHIELD BLUNT CANNULA 1 mL 18 gauge x 1 syrg 1 SYRINGE EVERY 4 WEEKS. Insulin Syringe-Needle U-100 (MONOJECT INS SYR 1CC/27G) 1 mL 27 gauge x 1/2 syrg 1 Syringe every 4 weeks. Pedialyte (PEDIALYTE) soln Take 948 mL by mouth once daily. Diagnosis: POTS I49.8 albuterol HFA (PROAIR HFA) 90 mcg/actuation inhaler Inhale 2 Puffs as instructed every 4 hours as needed. zonisamide (ZONEGRAN) 100 mg capsule Take 3-4 caps at bedtime. meloxicam (MOBIC) 15 mg tablet Take 1 tablet by mouth once daily as needed. atenolol (TENORMIN) 25 mg tablet Take 1 tablet by mouth twice daily. as directed triamcinolone acetonide (NASACORT) 55 mcg nasal inhaler Use 2 Sprays in the nose once daily. hydrOXYzine HCl (ATARAX) 25 mg tablet Take 2 tablets by mouth once daily as needed for Anxiety. (from psychiatrist) cholecalciferol, Vitamin D3, (VITAMIN D3) 1,250 mcg (50,000 unit) cap capsule Take 1 capsule by mouth two times a week. propranolol (INDERAL) 10 mg tablet Take 1-2 tablets by mouth twice daily as needed (palpitations or tremors). ondansetron orally disintegrating (ZOFRAN ODT) 8 mg disintegrating tablet Take 1 tablet by mouth every 8 hours as needed. PAST MEDICAL HISTORY Diagnosis Date Anxiety Angeli Constantino Asthmatic bronchitis recurrent episodes since pneumonia fall and winter 2011 Depression Angeli Constantino Epigastric abdominal pain Fibromyalgia Dr. 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 @[facility] Migraine with aura visual aura; diagnosed with complex migraines Nausea MAXWELL (obstructive sleep apnea) 03/10/2016 PMH - PAST MEDICAL HISTORY OF age 1 1/2 febrile seizures-with varicella PMH - PAST MEDICAL HISTORY OF 6-7 months dislocated elbow PMH - PAST MEDICAL HISTORY OF menarche age 14 years PMH - PAST MEDICAL HISTORY OF 1998 normal color vision POTS (postural orthostatic tachycardia syndrome) 04/23/2018 Rectal bleeding Sinus arrhythmia Snoring Suicide attempt by acetaminophen overdose (HCC) 06/2014 Syncope Vomiting Social History Tobacco Use Smoking status: Never Smoker Smokeless tobacco: Never Used Tobacco comment: Father and Mother smoked in home. Stopped 03/2013. Vaping Use Vaping Use: Never used Substance Use Topics Alcohol use: Yes Comment: occiasionally Drug use: No ASSESSMENT/PLAN: 1. COVID-19 - ICD9: 079.89, ICD10: U07.1 (primary diagnosis) She completed a course of Paxil a bit and and is feeling much improved, still with some coughing and shortness of breath on exertion 2. POTS (postural orthostatic tachycardia syndrome) - ICD9: 427.89, ICD10: I49.8 Reports episode of presyncope while ill, after driving to [place] and moving into a new apartment / lifting boxes. 3. Chest wall discomfort - ICD9: 786.52, ICD10: R07.89 Heart sounds are normal on exam, noral BP and pulse oximeter. She has stopped colchicine for Paxlovid Has completed this about 48 hours ago. May resume colchicine. Not currently taking meloxicam recommend she resume this as well. If chest wall discomfort persist she will let us know. Declines EKG in office today. Genaro Morales APRN.SPORTS TEACHER Medical Decision Making: Problems: Low: Acute, uncomplicated illness or injury Risk: Moderate: Drug management Medical Decision Making Level: 3 - Low documented in this encounter [facility] 12-29-2021 Miscellaneous Notes Reviewed that was seen by Genaro for Virtual Visit and Paxlovid ordered. See MyChart reply Note give to Pradeep to review today Patient calls and states that her temperature is 103 now. Patient has been talking tylenol for fever. Patient calls and states that her symptoms are getting worse. Patient asking provider how to proceed? Does she need to contact care process manager? Please review and advise, Patsy Mcclellan RN documented in this encounter [facility] 12-17-2021 Miscellaneous Notes MRI was approved and MRI was completed on 11/02/21 Patient calling back in to follow up on why MRI was denied - [facility] states they tried to reach the office to get information needed [facility] just needs a letter from the provider that patient has been doing her home stretches which patient states she has done daily since instructed Please advise and call patient with update documented in this encounter [facility] 12-04-2021 Instructions Sayda Manzano MA - 12/04/2021 9:25 AM EDT POST IUD INSTRUCTIONS You may have irregular bleeding during the first 3 months of use. You may have mild-severe cramping for the next 48 hours. You may use over the counter medication (Motrin, Tylenol) as needed. Your IUD must be removed or replaced based on the following table: IUD Type Removed or replaced within: Adry 3 years Kyleena 5 years Mirena 7 years Paragard 10 years Call my office for signs/symptoms of infection such as severe cramping, fever, or unusual bleeding. Check for string placement as instructed by your doctor. If you have any additional questions, please contact the office. documented in this encounter [facility] 12-04-2021 History of Present illness Narrative Bina presents today for Mirena IUD insertion for contraception. Patient's last menstrual period was 12/04/2021. GC/chlamydia: Negative on 10/29/21 test: negative Side effects including irregular bleeding were discussed with the patient. The patient understands that it should be removed in 7 years or sooner if the patient desires a . IUD source: office provided IUD lot #: [id number] Exp date: 09/2023 UNIVERSAL PROTOCOL / SAFETY CHECKLIST Procedure to be Performed: Mirena insertion Sign In: A Moment of CARE was completed. Personnel directly involved with the procedure wore the appropriate PPE (Personal Protective Equipment). No special equipment needed. Patient/Surrogate Stated/Verified: PATIENT VERIFIED(optional for EMERGENT procedures): Patient name, Date of , Relevant allergies and The intended procedure Time Out Communication: Intended patient and procedure match the source documents. Consent documented and matches the intended procedure. Relevant labs, photos, and/or imaging studies have been reviewed. Sign Out: SIGN OUT (optional for EMERGENT procedures): No specimen collected. The uterus sounded to 8 cm and the uterus is Midposition.. After prepping the cervix with betadine and using sterile technique, the Mirena IUD was inserted without difficulty and the string was cut to 2cm from the external os of the cervix. Patient tolerated procedure well. PLAN: Patient was advised to observe for signs and symptoms of infection including but not limited to fever, malodorous vaginal discharge and/or pain. The patient was told to check the string monthly for accurate placement. Bleeding expectations were reviewed. Follow up after next menses for string check. Francoise Rowley APRN.CNM documented in this encounter [facility] 11-30-2021 Miscellaneous Notes Last OV: 11/13/2021 Next OV: 03/30/2022 documented in this encounter [facility] 11-24-2021 History of Present illness Narrative SELF LV 2017 CC: skin lesions HPI: 31 year old F here for lesion on nose for months, intermittent bleeding every 4 months. No pain, no blisters. Heals in between flare ups. Also mole below R breast. Past medical hx: no skin cancer ROS: No fatigue or weight loss. No SOB, chest pain, abdominal pain. PE: AA&O x 3, well appearing. - tip of nose with a hemorrhagic flat topped papule. - medial aspect below R breast there is a soft brown papule. Assessment/Plan: Liliam was seen today for derm problem. Diagnoses and all orders for this visit: Neoplasm of uncertain behavior of skin Comments: nose r/o HSV vs pyogenic granuloma - will wait for hemorrhagic crust to heal for 2 weeks, and re-asess then, biopsy in reserve. Compound nevus of chest - banal appearing, reassured. return to clinic on 12/07 I spent a total of 15 minutes on the date of the service which included preparing to see the patient, [id number] patient care, completing clinical documentation, obtaining and/or reviewing separately obtained history, performing a medically appropriate examination and counseling and educating the patient/family/caregiver. Mikel Stevens MD documented in this encounter [facility] 11-17-2021 Nurse Note Virtual visit documented in this encounter [facility] 11-17-2021 History of Present illness Narrative Answers for HPI/ROS submitted by the patient on 11/16/2021 How many days of work or school have you missed due to headaches in the last month? : 3 How many days have you been completely free of headache pain in the last month? : 5 In the last month, how many headache days did you experience ALL of the following symptoms: decreased productivity, light sensitivity and nausea?: 20 Non-Migraine Headache Days per Month: 5 VV Pt getting ready to complete grad school. Has finals and capstone and then find a job. Was doing well with her migraines on 400 mg of zonegran but now, daily fo rthe last month. Admits to huge stress load. Will increase her prozac to 20 mg for headache prevention and stress. I think this is better than adding another med. Not long enough of this frequency for CGRP mabs. Renewed amerge. Reminds about rebound. Yair Lyons MD VV time spent: 18 mins (12 mins direct pt contact) documented in this encounter [facility] 11-12-2021 Miscellaneous Notes Patient's last appointment was 10/29/2021 documented in this encounter [facility] 09-22-2021 History of Present illness Narrative Images from the original note were not included. This note was created using [employer]. Subjective Liliam Thompson is a 30 year old female. Patient presents with: Follow Up SUBJECTIVE: Liliam Thompson is a 30 year old year old lady here today for 3 month follow up appointment for review of medical conditions. Noted that had Flu A tested +. Developed bronchitis with colored sputum. Finally treated 08/07 with addition of Doxy on Augmentin. Fever finally broke. Took at least 5 weeks to get better. Fever broke and HR good but flaring up now. Will see Rheumatology this week. Blood tests ordered already. Injured foot August 03. Not better. Xrays negative. Left ankle with good ROM. Cannot put weight on her foot. Hurts in lateral ankle. to posterior part of lateral malleolus. PAST MEDICAL HISTORY Diagnosis Date Anxiety Angeli Constantino Asthmatic bronchitis recurrent episodes since pneumonia fall and winter of 2011 Depression Angeli Constantino Epigastric abdominal pain Fibromyalgia Dr. 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 @[facility] Migraine with aura visual aura; diagnosed with complex migraines Nausea MAXWELL (obstructive sleep apnea) 03/10/2016 PMH - PAST MEDICAL HISTORY OF age 1 1/2 febrile seizures-with varicella PMH - PAST MEDICAL HISTORY OF 6-7 months dislocated elbow PMH - PAST MEDICAL HISTORY OF menarche age 14 years PMH - PAST MEDICAL HISTORY OF 1997 normal color vision POTS (postural orthostatic tachycardia syndrome) 04/23/2018 Rectal bleeding Sinus arrhythmia Snoring Suicide attempt by acetaminophen overdose (HCC) 06/2014 Syncope Vomiting Current Outpatient Medications Medication Sig colchicine 0.6 mg tablet TAKE 1 TABLET BY MOUTH TWICE A DAY ILARIS, PF, 150 mg/mL injection INJECT 150 MG (1 ML) UNDER THE SKIN EVERY 4 WEEKS predniSONE (DELTASONE) 5 mg tablet Take 20mg by mouth daily for 3 days, then decrease by 5mg every 3 days until off. levocetirizine (XYZAL) 5 mg tablet Take 5 mg by mouth as needed. azelastine (ASTELIN) 0.1% nasal spray Use 2 Sprays in each nostril twice daily as needed. Norethindrone, Contraceptive, 0.35 mg tablet TAKE 1 TABLET BY MOUTH EVERY DAY montelukast (SINGULAIR) 10 mg tablet Take 1 tablet by mouth daily at bedtime. LIFESHIELD BLUNT CANNULA 1 mL 18 gauge x 1 syrg 1 SYRINGE EVERY 4 WEEKS. Insulin Syringe-Needle U-100 (MONOJECT INS SYR 1CC/27G) 1 mL 27 gauge x 1/2 syrg 1 Syringe every 4 weeks. Pedialyte (PEDIALYTE) soln Take 948 mL by mouth once daily. Diagnosis: POTS I49.8 albuterol HFA (PROAIR HFA) 90 mcg/actuation inhaler Inhale 2 Puffs as instructed every 4 hours as needed. zonisamide (ZONEGRAN) 100 mg capsule Take 3-4 caps at bedtime. naratriptan (AMERGE) 2.5 mg tablet Take 1 tablet by mouth as needed for Migraine Headache (see administration instructions). 2.5 mg at onset of headache, may repeat in 4 hours if needed meloxicam (MOBIC) 15 mg tablet Take 1 tablet by mouth once daily as needed. FLUoxetine (PROZAC) 10 mg capsule Take 1 capsule by mouth once daily. fluvoxaMINE (LUVOX) 100 mg tablet Take 2 tablets by mouth once daily. atenolol (TENORMIN) 25 mg tablet Take 1 tablet by mouth twice daily. as directed triamcinolone acetonide (NASACORT) 55 mcg nasal inhaler Use 2 Sprays in the nose once daily. hydrOXYzine HCl (ATARAX) 25 mg tablet Take 2 tablets by mouth once daily as needed for Anxiety. (from psychiatrist) cholecalciferol, Vitamin D3, (VITAMIN D3) 1,250 mcg (50,000 unit) cap capsule Take 1 capsule by mouth two times a week. propranolol (INDERAL) 10 mg tablet Take 1-2 tablets by mouth twice daily as needed (palpitations or tremors). ondansetron orally disintegrating (ZOFRAN ODT) 8 mg disintegrating tablet Take 1 tablet by mouth every 8 hours as needed. No current facility-administered medications for this visit. Review of Systems Objective BP 112/78 Pulse 86 Wt 117.9 kg (260 lb) LMP 10/01/2020 BMI 50.78 kg/m Last 5 Encounter BP Readings: Date: BP: 09/22/2021 112/78 09/16/2021 120/82 08/05/2021 120/88 06/12/2021 128/87 06/11/2021 107/60 Last 5 Encounter Wt Readings: Date: Wt: 09/22/2021 117.9 kg (260 lb) 09/16/2021 118.8 kg (262 lb) 08/05/2021 120.2 kg (265 lb) 06/12/2021 121 kg (266 lb 11.2 oz) 06/11/2021 119.7 kg (264 lb) Physical Exam Musculoskeletal: Left lower leg: Tenderness (Tender about 9cm above lateral ankle) present. Legs: Feet: Assessment and Plan ASSESSMENT/PLAN: 1. Left ankle strain, sequela - ICD9: 905.7, ICD10: S96.912S (primary diagnosis) Further evaluation and treatment as indicated. - CONSULT TO PODIATRY 2. Chronic pain of left ankle - ICD9: 719.47, 338.29, ICD10: M25.572, G89.29 Further evaluation and treatment as indicated. - MRI ANKLE WO IVCON LT 3. History of influenza - ICD9: V12.09, ICD10: Z87.09 Doing better now Rest of medical issues stable. Faustina Carcamo MD documented in this encounter [facility] 09-16-2021 History of Present illness Narrative Radiology Service Progress Note PATIENT NAME: Liliam Thompson DATE OF SERVICE: September 16, 2021 TIME: 10:45 AM PATIENT IDENTITY VERIFICATION COMPLETED USING TWO (2) IDENTIFIERS: Name and Date of confirmed by patient verbally. FALL SCREENING: Has the patient had 2 falls in the last year or 1 fall with injury or currently using an Ambulatory Assistive Device (Walker, Cane, Wheelchair, Crutches, etc.)? No PATIENT GENDER DATA: Female. status: : No status: NO. PATIENT RELEVANT IMPLANT DATA REVIEWED: Not Applicable RADIOLOGY DEPARTMENT: General X-ray: Exam(s) Completed: Lower Extremity X-Ray(s): Ankle, Left and Wt. Bearing PERIPHERAL IV DATA: Not applicable SIGNED BY: RT Sharyn(R) September 16, 2021 10:45 AM documented in this encounter [facility] 08-05-2021 History of Present illness Narrative Radiology Service Progress Note PATIENT NAME: Liliam Thompson DATE OF SERVICE: August 05, 2021 TIME: 4:26 PM PATIENT IDENTITY VERIFICATION COMPLETED USING TWO (2) IDENTIFIERS: Name and Date of confirmed by patient verbally. FALL SCREENING: Has the patient had 2 falls in the last year or 1 fall with injury or currently using an Ambulatory Assistive Device (Walker, Cane, Wheelchair, Crutches, etc.)? Yes, Patient High Risk for Falls What interventions were put in place to prevent falls during this visit? Increased Observations by Caregivers PATIENT GENDER DATA: Female. status: : No status: NO. PATIENT RELEVANT IMPLANT DATA REVIEWED: Not Applicable RADIOLOGY DEPARTMENT: General X-ray: Exam(s) Completed: Lower Extremity X-Ray(s): Ankle, Left and Wt. Bearing and Foot, Left and Wt. Bearing PERIPHERAL IV DATA: Not applicable SIGNED BY: RT Francisco(R) August 05, 2021 4:26 PM documented in this encounter [facility] 03-10-2021 History of Past i llness Narrative Problem Noted Date Resolved Date Asthmatic bronchitis 03/10/2021 Overview: recurrent episodes since pneumonia fall and winter of 2011 Inflammatory polyarthritis 11/15 documented as of this encounter (statuses as of 11/13/2021) [address]27-2021 History of Past illness Narrative* Problem Noted Date Resolved Date Asthmatic bronchitis 03/10/2021 Overview: recurrent episodes since pneumonia fall and winter of 2011 Inflammatory polyarthritis 11/15 documented as of this encounter (statuses as of 11/17/2021) [address]27-2021 History of Past illness Narrative* Problem Noted Date Resolved Date Asthmatic bronchitis 03/10/2021 Overview: recurrent episodes since pneumonia fall and winter of 2011 Inflammatory polyarthritis 11/15 documented as of this encounter (statuses as of 11/25/2021) [address]27-2021 History of Past illness Narrative* Problem Noted Date Resolved Date Asthmatic bronchitis 03/10/2021 Overview: recurrent episodes since pneumonia fall and winter of 2011 Inflammatory polyarthritis 11/15 documented as of this encounter (statuses as of 11/30/2021) [address]27-2021 History of Past illness Narrative* Problem Noted Date Resolved Date Asthmatic bronchitis 03/10/2021 Overview: recurrent episodes since pneumonia fall and winter of 2011 Inflammatory polyarthritis 11/15 documented as of this encounter (statuses as of 12/04/2021) [address]27-2021 History of Past illness Narrative* Problem Noted Date Resolved Date Asthmatic bronchitis 03/10/2021 Overview: recurrent episodes since pneumonia fall and winter of 2011 Inflammatory polyarthritis 11/15 documented as of this encounter (statuses as of 12/14/2021) [address]27-2021 History of Past illness Narrative* Problem Noted Date Resolved Date Asthmatic bronchitis 03/10/2021 Overview: recurrent episodes since pneumonia fall and winter of 2011 Inflammatory polyarthritis 11/15 documented as of this encounter (statuses as of 12/17/2021) [address]27-2021 History of Past illness Narrative* Problem Noted Date Resolved Date Asthmatic bronchitis 03/10/2021 Overview: recurrent episodes since pneumonia fall and winter of 2011 Inflammatory polyarthritis 11/15 documented as of this encounter (statuses as of 12/29/2021) [address]27-2021 History of Past illness Narrative* Problem Noted Date Resolved Date Asthmatic bronchitis 03/10/2021 Overview: recurrent episodes since pneumonia fall and winter of 2011 Inflammatory polyarthritis 11/15 documented as of this encounter (statuses as of 01/05/2022) [address]27-2021 History of Past illness Narrative* Problem Noted Date Resolved Date Asthmatic bronchitis 03/10/2021 Overview: recurrent episodes since pneumonia fall and winter of 2011 Inflammatory polyarthritis 11/15 documented as of this encounter (statuses as of 01/07/2022) [address]27-2021 History of Past illness Narrative* Problem Noted Date Resolved Date Asthmatic bronchitis 03/10/2021 Overview: recurrent episodes since pneumonia fall and winter of 2011 Inflammatory polyarthritis 11/15 documented as of this encounter (statuses as of 01/12/2022) [address]27-2021 History of Past illness Narrative* Problem Noted Date Resolved Date Asthmatic bronchitis 03/10/2021 Overview: recurrent episodes since pneumonia fall and winter of 2011 Inflammatory polyarthritis 11/15 documented as of this encounter (statuses as of 01/13/2022) [address]27-2021 History of Past illness Narrative* Problem Noted Date Resolved Date Asthmatic bronchitis 03/10/2021 Overview: recurrent episodes since pneumonia fall and winter of 2011 Inflammatory polyarthritis 11/15 documented as of this encounter (statuses as of 01/18/2022) [address]27-2021 History of Past illness Narrative* Problem Noted Date Resolved Date Asthmatic bronchitis 03/10/2021 Overview: recurrent episodes since pneumonia fall and winter of 2011 Inflammatory polyarthritis 11/15 documented as of this encounter (statuses as of 01/20/2022) [address]27-2021 History of Past illness Narrative* Problem Noted Date Resolved Date Asthmatic bronchitis 03/10/2021 Overview: recurrent episodes since pneumonia fall and winter of 2011 Inflammatory polyarthritis 11/15 documented as of this encounter (statuses as of 01/21/2022) [address]27-2021 History of Past illness Narrative* Problem Noted Date Resolved Date Asthmatic bronchitis 03/10/2021 Overview: recurrent episodes since pneumonia fall and winter of 2011 Inflammatory polyarthritis 11/15 documented as of this encounter (statuses as of 02/18/2022) [address]27-2021 History of Past illness Narrative* Problem Noted Date Resolved Date Asthmatic bronchitis 03/10/2021 Overview: recurrent episodes since pneumonia fall and winter of 2011 Inflammatory polyarthritis 11/15 documented as of this encounter (statuses as of 02/19/2022) [address]27-2021 History of Past illness Narrative* Problem Noted Date Resolved Date Asthmatic bronchitis 03/10/2021 Overview: recurrent episodes since pneumonia fall and winter of 2011 Inflammatory polyarthritis 11/15 documented as of this encounter (statuses as of 02/22/2022) [address]27-2021 History of Past illness Narrative* Problem Noted Date Resolved Date Asthmatic bronchitis 03/10/2021 Overview: recurrent episodes since pneumonia fall and winter of 2011 Inflammatory polyarthritis 11/15 documented as of this encounter (statuses as of 02/23/2022) [address]27-2021 History of Past illness Narrative* Problem Noted Date Resolved Date Asthmatic bronchitis 03/10/2021 Overview: recurrent episodes since pneumonia fall and winter of 2011 Inflammatory polyarthritis 11/15 documented as of this encounter (statuses as of 02/25/2022) [address]27-2021 History of Past illness Narrative* Problem Noted Date Resolved Date Asthmatic bronchitis 03/10/2021 Overview: recurrent episodes since pneumonia fall and winter of 2011 Inflammatory polyarthritis 11/15 documented as of this encounter (statuses as of 02/27/2022) [address]27-2021 History of Past illness Narrative* Problem Noted Date Resolved Date Asthmatic bronchitis 03/10/2021 Overview: recurrent episodes since pneumonia fall and winter of 2011 Inflammatory polyarthritis 11/15 documented as of this encounter (statuses as of 04/06/2022) [address]27-2021 History of Past illness Narrative* Problem Noted Date Resolved Date Asthmatic bronchitis 03/10/2021 Overview: recurrent episodes since pneumonia fall and winter of 2011 Inflammatory polyarthritis 11/15 documented as of this encounter (statuses as of 04/07/2022) [address]27-2021 History of Past illness Narrative* Problem Noted Date Resolved Date Asthmatic bronchitis 03/10/2021 Overview: recurrent episodes since pneumonia fall and winter of 2011 Inflammatory polyarthritis 11/15 documented as of this encounter (statuses as of 04/13/2022) [address]27-2021 History of Past illness Narrative* Problem Noted Date Resolved Date Asthmatic bronchitis 03/10/2021 Overview: recurrent episodes since pneumonia fall and winter of 2011 Inflammatory polyarthritis 11/15 documented as of this encounter (statuses as of 05/31/2022) [address]27-2021 History of Past illness Narrative* Problem Noted Date Resolved Date Asthmatic bronchitis 03/10/2021 Overview: recurrent episodes since pneumonia fall and winter of 2011 Inflammatory polyarthritis 11/15 documented as of this encounter (statuses as of 06/03/2022) [address]27-2021 History of Past illness Narrative* Problem Noted Date Resolved Date Asthmatic bronchitis 03/10/2021 Overview: recurrent episodes since pneumonia fall and winter of 2011 Inflammatory polyarthritis 11/15 documented as of this encounter (statuses as of 06/14/2022) [address]27-2021 History of Past illness Narrative* Problem Noted Date Resolved Date Asthmatic bronchitis 03/10/2021 Overview: recurrent episodes since pneumonia fall and winter of 2011 Inflammatory polyarthritis 11/15 documented as of this encounter (statuses as of 07/15/2022) [address]27-2021 History of Past illness Narrative* Problem Noted Date Resolved Date Asthmatic bronchitis 03/10/2021 Overview: recurrent episodes since pneumonia fall and winter of 2011 Inflammatory polyarthritis 11/15 documented as of this encounter (statuses as of 07/15/2022) [address]27-2021 History of Past illness Narrative* Problem Noted Date Resolved Date Asthmatic bronchitis 03/10/2021 Overview: recurrent episodes since pneumonia fall and winter of 2011 Inflammatory polyarthritis 11/15 documented as of this encounter (statuses as of 08/03/2022) [address]27-2021 History of Past illness Narrative* Problem Noted Date Resolved Date Asthmatic bronchitis 03/10/2021 Overview: recurrent episodes since pneumonia fall and winter of 2011 Inflammatory polyarthritis 11/15 documented as of this encounter (statuses as of 08/06/2022) [address]27-2021 History of Past illness Narrative* Problem Noted Date Resolved Date Asthmatic bronchitis 03/10/2021 Overview: recurrent episodes since pneumonia fall and winter of 2011 Inflammatory polyarthritis 11/15 documented as of this encounter (statuses as of 08/18/2022) [address]27-2021 History of Past illness Narrative* Problem Noted Date Resolved Date Asthmatic bronchitis 03/10/2021 Overview: recurrent episodes since pneumonia fall and winter of 2011 Inflammatory polyarthritis 11/15 documented as of this encounter (statuses as of 08/18/2022) [address]27-2021 History of Past illness Narrative* Problem Noted Date Resolved Date Asthmatic bronchitis 03/10/2021 Overview: recurrent episodes since pneumonia fall and winter of 2011 Inflammatory polyarthritis 11/15 documented as of this encounter (statuses as of 09/01/2022) [address]27-2021 History of Past illness Narrative* Problem Noted Date Resolved Date Asthmatic bronchitis 03/10/2021 Overview: recurrent episodes since pneumonia fall and winter of 2011 Inflammatory polyarthritis 11/15 documented as of this encounter (statuses as of 09/12/2022) [address]27-2021 History of Past illness Narrative* Problem Noted Date Resolved Date Asthmatic bronchitis 03/10/2021 Overview: recurrent episodes since pneumonia fall and winter of 2011 Inflammatory polyarthritis 11/15 documented as of this encounter (statuses as of 09/16/2022) [address]27-2021 History of Past illness Narrative* Problem Noted Date Resolved Date Asthmatic bronchitis 03/10/2021 Overview: recurrent episodes since pneumonia fall and winter of 2011 Inflammatory polyarthritis 11/15 documented as of this encounter (statuses as of 10/05/2022) [address]27-2021 History of Past illness Narrative* Problem Noted Date Resolved Date Asthmatic bronchitis 03/10/2021 Overview: recurrent episodes since pneumonia fall and winter of 2011 Inflammatory polyarthritis 11/15 documented as of this encounter (statuses as of 10/18/2022) [address]27-2021 History of Past illness Narrative* Problem Noted Date Resolved Date Asthmatic bronchitis 03/10/2021 Overview: recurrent episodes since pneumonia fall and winter of 2011 Inflammatory polyarthritis 11/15 documented as of this encounter (statuses as of 11/10/2022) [address]27-2021 History of Past illness Narrative* Problem Noted Date Resolved Date Asthmatic bronchitis 03/10/2021 Overview: recurrent episodes since pneumonia fall and winter of 2011 Inflammatory polyarthritis 11/15 documented as of this encounter (statuses as of 11/17/2022) [address]27-2021 History of Past illness Narrative* Problem Noted Date Resolved Date Asthmatic bronchitis 03/10/2021 Overview: recurrent episodes since pneumonia fall and winter of 2011 Inflammatory polyarthritis 11/15 documented as of this encounter (statuses as of 12/03/2022) [address]27-2021 History of Past illness Narrative* Problem Noted Date Resolved Date Asthmatic bronchitis 03/10/2021 Overview: recurrent episodes since pneumonia fall and winter of 2011 Inflammatory polyarthritis 11/15 documented as of this encounter (statuses as of 12/10/2022) [address]27-2021 History of Past illness Narrative* Problem Noted Date Resolved Date Asthmatic bronchitis 03/10/2021 Overview: recurrent episodes since pneumonia fall and winter of 2011 Inflammatory polyarthritis 11/15 documented as of this encounter (statuses as of 12/16/2022) [address]27-2021 History of Past illness Narrative* Problem Noted Date Resolved Date Asthmatic bronchitis 03/10/2021 Overview: recurrent episodes since pneumonia fall and winter of 2011 Inflammatory polyarthritis 11/15 documented as of this encounter (statuses as of 12/17/2022) [address]27-2021 History of Past illness Narrative* Problem Noted Date Resolved Date Asthmatic bronchitis 03/10/2021 Overview: recurrent episodes since pneumonia fall and winter of 2011 Inflammatory polyarthritis 11/15 documented as of this encounter (statuses as of 12/18/2022) [address]27-2021 History of Past illness Narrative* Problem Noted Date Resolved Date Asthmatic bronchitis 03/10/2021 Overview: recurrent episodes since pneumonia fall and winter of 2011 Inflammatory polyarthritis 11/15 documented as of this encounter (statuses as of 12/22/2022) [address]27-2021 History of Past illness Narrative* Problem Noted Date Resolved Date Asthmatic bronchitis 03/10/2021 Overview: recurrent episodes since pneumonia fall and winter of 2011 Inflammatory polyarthritis 11/15 documented as of this encounter (statuses as of 01/12/2023) [address]27-2021 History of Past illness Narrative* Problem Noted Date Resolved Date Asthmatic bronchitis 03/10/2021 Overview: recurrent episodes since pneumonia fall and winter of 2011 Inflammatory polyarthritis 11/15 documented as of this encounter (statuses as of 02/07/2023) [address]27-2021 History of Past illness Narrative* Problem Noted Date Resolved Date Asthmatic bronchitis 03/10/2021 Overview: recurrent episodes since pneumonia fall and winter of 2011 Inflammatory polyarthritis 11/15 documented as of this encounter (statuses as of 02/17/2023) [address]27-2021 History of Past illness Narrative* Problem Noted Date Resolved Date Asthmatic bronchitis 03/10/2021 Overview: recurrent episodes since pneumonia fall and winter of 2011 Inflammatory polyarthritis 11/15 documented as of this encounter (statuses as of 02/17/2023) [address]27-2021 History of Past illness Narrative* Problem Noted Date Diagnosed Date Resolved Date Asthmatic bronchitis 021 Overview: recurrent episodes since pneumonia fall and winter of 2011 Inflammatory polyarthritis 0 11/15/2013 documented as of this encounter (statuses as of 02/26/2023) [address]27-2021 History of Past illness Narrative* Problem Noted Date Diagnosed Date Resolved Date Asthmatic bronchitis 021 Overview: recurrent episodes since pneumonia fall and winter of 2011 Inflammatory polyarthritis 0 11/15/2013 documented as of this encounter (statuses as of 03/03/2023) [address]27-2021 History of Past illness Narrative* Problem Noted Date Diagnosed Date Resolved Date Asthmatic bronchitis Overview: recurrent episodes since pneumonia fall and winter of 2011 Inflammatory polyarthritis 0 11/15/2013 documented as of this encounter (statuses as of 03/17/2023) [address]27-2021 History of Past illness Narrative* Problem Noted Date Diagnosed Date Resolved Date Asthmatic bronchitis Overview: recurrent episodes since pneumonia fall and winter of 2011 Inflammatory polyarthritis 0 11/15/2013 documented as of this encounter (statuses as of 04/06/2023) [address]27-2021 History of Past illness Narrative* Problem Noted Date Diagnosed Date Resolved Date Asthmatic bronchitis Overview: recurrent episodes since pneumonia fall and winter of 2011 Inflammatory polyarthritis 0 11/15/2013 documented as of this encounter (statuses as of 04/06/2023) [address]27-2021 History of Past illness Narrative* Problem Noted Date Diagnosed Date Resolved Date Asthmatic bronchitis Overview: recurrent episodes since pneumonia fall and winter of 2011 Inflammatory polyarthritis 0 11/15/2013 documented as of this encounter (statuses as of 04/07/2023) [address]27-2021 History of Past illness Narrative* Problem Noted Date Diagnosed Date Resolved Date Asthmatic bronchitis Overview: recurrent episodes since pneumonia fall and winter of 2011 Inflammatory polyarthritis 0 11/15/2013 documented as of this encounter (statuses as of 04/12/2023) [address]27-2021 History of Past illness Narrative* Problem Noted Date Diagnosed Date Resolved Date Asthmatic bronchitis Overview: recurrent episodes since pneumonia fall and winter of 2011 Inflammatory polyarthritis 0 11/15/2013 documented as of this encounter (statuses as of 04/13/2023) [address]27-2021 History of Past illness Narrative* Problem Noted Date Diagnosed Date Resolved Date Asthmatic bronchitis Overview: recurrent episodes since pneumonia fall and winter of 2011 Inflammatory polyarthritis 0 11/15/2013 documented as of this encounter (statuses as of 04/18/2023) [address]27-2021 History of Past illness Narrative* Problem Noted Date Diagnosed Date Resolved Date Asthmatic bronchitis 021 Overview: recurrent episodes since pneumonia fall and winter of 2011 Inflammatory polyarthritis 0 11/15/2013 documented as of this encounter (statuses as of 04/18/2023) [address]27-2021 History of Past illness Narrative* Problem Noted Date Diagnosed Date Resolved Date Asthmatic bronchitis Overview: recurrent episodes since pneumonia fall and winter of 2011 Inflammatory polyarthritis 0 11/15/2013 documented as of this encounter (statuses as of 04/22/2023) [address]27-2021 History of Past illness Narrative* Problem Noted Date Diagnosed Date Resolved Date Asthmatic bronchitis Overview: recurrent episodes since pneumonia fall and winter of 2011 Inflammatory polyarthritis 0 11/15/2013 documented as of this encounter (statuses as of 04/26/2023) [address]27-2021 History of Past illness Narrative* Problem Noted Date Diagnosed Date Resolved Date Asthmatic bronchitis Overview: recurrent episodes since pneumonia fall and winter of 2011 Inflammatory polyarthritis 0 11/15/2013 documented as of this encounter (statuses as of 05/21/2023) [address]27-2021 History of Past illness Narrative* Problem Noted Date Diagnosed Date Resolved Date Asthmatic bronchitis 021 Overview: recurrent episodes since pneumonia fall and winter of 2011 Inflammatory polyarthritis 0 11/15/2013 documented as of this encounter (statuses as of 05/21/2023) [address]27-2021 History of Past illness Narrative* Problem Noted Date Diagnosed Date Resolved Date Asthmatic bronchitis 021 Overview: recurrent episodes since pneumonia fall and winter of 2011 Inflammatory polyarthritis 0 11/15/2013 documented as of this encounter (statuses as of 05/25/2023) [address]27-2021 History of Past illness Narrative* Problem Noted Date Diagnosed Date Resolved Date Asthmatic bronchitis Overview: recurrent episodes since pneumonia fall and winter of 2011 Inflammatory polyarthritis 0 11/15/2013 documented as of this encounter (statuses as of 06/06/2023) [address]27-2021 History of Past illness Narrative* Problem Noted Date Diagnosed Date Resolved Date Asthmatic bronchitis Overview: recurrent episodes since pneumonia fall and winter of 2011 Inflammatory polyarthritis 0 11/15/2013 documented as of this encounter (statuses as of 06/06/2023) [address]27-2021 History of Past illness Narrative* Problem Noted Date Diagnosed Date Resolved Date Asthmatic bronchitis Overview: recurrent episodes since pneumonia fall and winter of 2011 Inflammatory polyarthritis 0 11/15/2013 documented as of this encounter (statuses as of 06/19/2023) [address]27-2021 History of Past illness Narrative* Problem Noted Date Diagnosed Date Resolved Date Asthmatic bronchitis Overview: recurrent episodes since pneumonia fall and winter of 2011 Inflammatory polyarthritis 0 11/15/2013 documented as of this encounter (statuses as of 06/22/2023) [address]27-2021 History of Past illness Narrative* Problem Noted Date Diagnosed Date Resolved Date Asthmatic bronchitis Overview: recurrent episodes since pneumonia fall and winter of 2011 Inflammatory polyarthritis 0 11/15/2013 documented as of this encounter (statuses as of 06/24/2023) [address]27-2021 History of Past illness Narrative* Problem Noted Date Diagnosed Date Resolved Date Asthmatic bronchitis Overview: recurrent episodes since pneumonia fall and winter of 2011 Inflammatory polyarthritis 0 11/15/2013 documented as of this encounter (statuses as of 07/04/2023) [address]27-2021 History of Past illness Narrative* Problem Noted Date Diagnosed Date Resolved Date Asthmatic bronchitis Overview: recurrent episodes since pneumonia fall and winter of 2011 Inflammatory polyarthritis 0 11/15/2013 documented as of this encounter (statuses as of 07/06/2023) [address]27-2021 History of Past illness Narrative* Problem Noted Date Diagnosed Date Resolved Date Asthmatic bronchitis Overview: recurrent episodes since pneumonia fall and winter of 2011 Inflammatory polyarthritis 0 11/15/2013 documented as of this encounter (statuses as of 07/22/2023) [address]27-2021 History of Past illness Narrative* Problem Noted Date Diagnosed Date Resolved Date Asthmatic bronchitis Overview: recurrent episodes since pneumonia fall and winter of 2011 Inflammatory polyarthritis 0 11/15/2013 documented as of this encounter (statuses as of 07/26/2023) [address]27-2021 History of Past illness Narrative* Problem Noted Date Diagnosed Date Resolved Date Asthmatic bronchitis Overview: recurrent episodes since pneumonia fall and winter of 2011 Inflammatory polyarthritis 0 11/15/2013 documented as of this encounter (statuses as of 07/29/2023) [address]27-2021 History of Past illness Narrative* Problem Noted Date Diagnosed Date Resolved Date Asthmatic bronchitis 021 Overview: recurrent episodes since pneumonia fall and winter of 2011 Inflammatory polyarthritis 0 11/15/2013 documented as of this encounter (statuses as of 08/21/2023) [address]27-2021 History of Past illness Narrative* Problem Noted Date Diagnosed Date Resolved Date Asthmatic bronchitis Overview: recurrent episodes since pneumonia fall and winter of 2011 Inflammatory polyarthritis 0 11/15/2013 documented as of this encounter (statuses as of 09/23/2023) [address]27-2021 History of Past illness Narrative* Problem Noted Date Diagnosed Date Resolved Date Asthmatic bronchitis Overview: recurrent episodes since pneumonia fall and winter of 2011 Inflammatory polyarthritis 0 11/15/2013 documented as of this encounter (statuses as of 10/14/2023) [facility]07-27-2021 History of Past illness Narrative* Problem Noted Date Diagnosed Date Resolved Date Asthmatic bronchitis Overview: recurrent episodes since pneumonia fall and winter of 2011 Inflammatory polyarthritis 0 11/15/2013 documented as of this encounter (statuses as of 10/25/2023) [facility]-2021 History of Past illness Narrative* Problem Noted Date Diagnosed Date Resolved Date Asthmatic bronchitis Overview: recurrent episodes since pneumonia fall and winter of 2011 Inflammatory polyarthritis 0 11/15/2013 documented as of this encounter (statuses as of 10/28/2023) [facility]05-26-2021 History of Present illness Narrative* Katelin King RT(R) - 01/07/2021 8:00 AM EDT Radiology Service Progress Note PATIENT NAME: Liliam Thompson DATE OF SERVICE: January 07, 2021 TIME: 8:16 AM PATIENT IDENTITY VERIFICATION COMPLETED USING TWO (2) IDENTIFIERS: Name and Date of confirmedby patient verbally. FALL SCREENING: Has the patient had 2 falls in the last year or 1 fall with injury or currently using an Ambulatory Assistive Device (Walker, Cane, Wheelchair, Crutches, etc.)? No PATIENT GENDER DATA: Female. status: : No status: NO. PATIENT RELEVANT IMPLANT DATA REVIEWED: Not Applicable RADIOLOGY DEPARTMENT: General X-ray: Exam(s) Completed: Upper Extremity X- Ray(s): Shoulder, AP / TRUE AP / AXILLARY left and Wrist, left PERIPHERAL IV DATA: Not applicable SIGNED BY: RT Sharyn(R) January 07, 2021 8:16 AM [place] [id number] History of Present illness Narrative* Kristy Alanis (Ct)JACKIE - 07/17/2020 10:15 AM EST Radiology Service Progress Note PATIENT NAME: Liliam Thompson DATE OF SERVICE: July 17, 2020 TIME: 10:24 AM PATIENT IDENTITY VERIFICATION COMPLETED USING TWO (2) IDENTIFIERS: Name and Date of confirmedby patient verbally. FALL SCREENING: Has the patient had 2 falls in the last year or 1 fall with injury or currently using an Ambulatory Assistive Device (Walker, Cane, Wheelchair, Crutches, etc.)? No PATIENT GENDER DATA: Female. status: : No status: NO. PATIENT RELEVANT IMPLANT DATA REVIEWED: Yes RADIOLOGY DEPARTMENT: CT; Exam(s) Completed: Sinus PERIPHERAL IV DATA: Not applicable SIGNED BY: JACKIE Artis July 17, 2020 10:24 AM documented in this [facility]10-22-2020 History of Present illness Narrative* Katelin KingRt), Tech - 06/05/2020 12:30 PM EDT Radiology Service Progress Note PATIENT NAME: Liliam Thompson DATE OF SERVICE: June 05, 2020 TIME: 12:35 PM PATIENT IDENTITY VERIFICATION COMPLETED USING TWO (2) IDENTIFIERS: Name and Date of confirmedby patient verbally. FALL SCREENING: Has the patient had 2 falls in the last year or 1 fall with injury or currently using an Ambulatory Assistive Device (Walker, Cane, Wheelchair, Crutches, etc.)? No PATIENT GENDER DATA: Female. status: : No status: NO. PATIENT RELEVANT IMPLANT DATA REVIEWED: Not Applicable RADIOLOGY DEPARTMENT: General X-ray: Exam(s) Completed: Chest X-Ray PERIPHERAL IV DATA: Not applicable SIGNED BY: RT Sharyn June 05, 2020 12:35 PM [facility]* Diagnosis Intractable chronic migraine without aura and without status migrainosus- Primary Chronic migraine without aura, with intractable migraine, so stated, without mention of status migrainosus [facility] Neoplasm of uncertain behavior of skin- Primary Compound nevus of chest Benign neoplasm of skin of trunk, except scrotum [facility] [place] [facility]* Diagnosis Obsessive-compulsive disorder, unspecified type [facility] [place] [facility]* Diagnosis Encounter for IUD insertion- Primary Encounter for insertion of intrauterine contraceptive device [facility] [place] [facility]* Diagnosis Left ankle strain, sequela- Primary Chronic pain of left ankle History of influenza Personal history of other infectious and parasitic disease [facility] [facility], [place]* Diagnosis COVID-19- Primary POTS (postural orthostatic tachycardia syndrome) Tachycardia, unspecified Chest wall discomfort Painful respiration [facility] [place] [facility]* 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 [facility] [place] [facility]* Diagnosis Surveillance of previously prescribed intrauterine contraceptive device- Primary Intrauterine contraceptive device threads lost, initial [facility] Diagnosis Inappropriate sinus node tachycardia Other specified cardiac dysrhythmias [facility] [place] [facility]* Diagnosis Intrauterine contraceptive device threads lost, initial encounter [facility] 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 [facility] [place] [facility]* 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 [facility] [place] [facility]* Diagnosis Moderate anxiety- Primary Moderate episode of recurrent major depressive disorder (HCC) documented [facility] [place]* Diagnosis Migraine without status migrainosus, not intractable, unspecified migraine type- Primary IUD check up Surveillance of previously prescribed intrauterine contraceptive device Morbid obesity Periodic fever syndrome Familial Mediterranean fever [facility] Diagnosis Closed head injury, initial encounter- Primary Contusion of scalp, initial encounter Abrasion Abrasion or friction burn of other, multiple, and unspecified sites, without mention of infection Fall, initial encounter Injury of right ankle, initial encounter Sprain of right ankle, unspecified ligament, initial encounter Injury of right ankle, initial encounter [facility] [place] [facility]* Diagnosis Concussion without loss of consciousness, subsequent encounter- Primary documented in this encounter [facility] note* Diagnosis POTS (postural orthostatic tachycardia syndrome)- Primary Tachycardia, unspecified Pleuritic chest pain Painful respiration 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 Cough, unspecified type Class 3 severe obesity due to excess calories with body mass index (BMI) of 50.0 to 59.9 in adult, unspecified whether serious comorbidity present (HCC) documented in [facility] [place] [facility]* Diagnosis Acute cough- Primary Shortness of breath Wheezing documented in this encounter [facility] note* 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 documented in this encounter [facility] note* Diagnosis RLQ abdominal pain- Primary Abdominal pain, right lower quadrant documented in this encounter [facility] note* Diagnosis Pelvic pain in female- Primary Unspecified symptom associated with female genital organs Screen for STD (sexually transmitted disease) Screening examination for venereal disease Surveillance of previously prescribed intrauterine contraceptive device documented in this encounter [facility] note* Diagnosis Chronic migraine without aura, with intractable migraine, so stated, with status migrainosus- Primary documented in this encounter [facility] note* Diagnosis Obsessive-compulsive disorder, unspecified type- Primary PTSD (post-traumatic stress disorder) Posttraumatic stress disorder Recurrent major depressive disorder, in partial remission (HCC) Anxiety Anxiety state, unspecified POTS (postural orthostatic tachycardia syndrome) Tachycardia, unspecified Inappropriate sinus node tachycardia Other specified cardiac dysrhythmias Moderate persistent reactive airway disease with acute exacerbation documented in this encounter [facility] note* Diagnosis Dog bite, initial encounter- Primary documented in this encounter [facility] note* Diagnosis 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 POTS (postural orthostatic tachycardia syndrome) Tachycardia, unspecified Inappropriate sinus node tachycardia Other specified cardiac dysrhythmias 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 documented in this encounter [facility] note* Diagnosis 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documented in this encounter [facility] note* 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 Immunosuppression (HCC) Unspecified disorder of immune mechanism [facility] Diagnosis PTSD (post-traumatic stress disorder)- Primary Posttraumatic stress disorder Migraine with aura and without status migrainosus, not intractable Migraine with aura, without mention of intractable migraine without mention of status migrainosus POTS (postural orthostatic tachycardia syndrome) Tachycardia, unspecified 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 Pain in joint, multiple sites Panic disorder with agoraphobia Agoraphobia with panic disorder Irritable bowel syndrome with both constipation and diarrhea [facility] Diagnosis Sore throat- Primary Acute pharyngitis Acute otitis media, left Unspecified otitis media [facility]* 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 [facility]* Diagnosis Encounter for gynecological examination (general) (routine) without abnormal findings- Primary Screening for STD (sexually transmitted disease) Screening examination for venereal disease [facility]* 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 [facility]* Diagnosis 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, chronic or unspecified [facility] Diagnosis 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, chronic or unspecified [facility]* Diagnosis 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, chronic or unspecified [facility]* 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, chronic or unspecified [facility]* Diagnosis 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, chronic or unspecified [facility]* Diagnosis Treatment not available- Primary Procedure not carried out for other reasons [facility]* Diagnosis Laryngitis- Primary Acute laryngitis, without mention of obstruction Cough, unspecified type [facility]* Diagnosis Intractable chronic migraine without aura and without status migrainosus- Primary Chronic migraine without aura, with intractable migraine, so stated, without mention of status migrainosus [facility] [place] [facility]* Diagnosis Other migraine without status migrainosus, intractable- Primary Abnormal EKG Nonspecific abnormal electrocardiogram (ECG) (EKG) POTS (postural orthostatic tachycardia syndrome) Tachycardia, unspecified Elevated TSH Nonspecific abnormal results of thyroid function study [facility] [place] [facility]* Diagnosis Acute cystitis without hematuria- Primary Acute cystitis documented [facility] [place] [facility]* Diagnosis Upper back pain- Primary documented [facility] [place] [facility]* Diagnosis Upper back pain- Primary Other acute gastritis without hemorrhage Fever, unspecified fever cause documented [facility] this [facility] [place] [facility]* Diagnosis Upper back pain Fever, unspecified fever cause [facility] this [facility] [place] [facility]* Diagnosis Obsessive-compulsive disorder, unspecified type documented [facility] this [facility] [place]* Diagnosis 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, 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 [facility] [place] [facility]* Diagnosis Pelvic pain in female- Primary Unspecified symptom associated with female genital organs [facility] [place]* Diagnosis Pelvic pain in female Unspecified symptom associated with female genital organs [facility] [place]* Diagnosis Atypical facial pain- Primary Atypical face pain Chronic migraine without aura, with intractable migraine, so stated, with status migrainosus [facility] [place]* 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 [facility] [place] [facility]* Diagnosis Screen for STD (sexually transmitted disease)- Primary Screening examination for venereal disease Chronic left shoulder pain Pain in joint, shoulder region [facility] [place] [facility]* Diagnosis Latex allergy- Primary Allergy to latex Vitamin D deficiency Unspecified vitamin D deficiency Elevated TSH Nonspecific abnormal results of thyroid function study Inappropriate sinus node tachycardia (HCC) Other specified cardiac dysrhythmias documented [facility] [place]* Diagnosis POTS (postural orthostatic tachycardia syndrome)- Primary Tachycardia, unspecified [facility] [place] [facility]* Diagnosis Toxic effect of latex, accidental (unintentional), subsequent encounter- Primary Seasonal allergic rhinitis due to pollen Adverse reaction to food, subsequent encounter Oral allergy syndrome, subsequent encounter [facility]* Diagnosis Diarrhea, unspecified type- Primary Acute cough Bacterial sinusitis Unspecified sinusitis (chronic) [facility]* Diagnosis Abnormal uterine bleeding (AUB)- Primary [facility]* Diagnosis Bilateral lower extremity edema- Primary Edema Intermittent diarrhea Class 3 severe obesity due to excess calories with body mass index (BMI) of 50.0 to 59.9 in adult, unspecified whether serious comorbidity present (HCC) Encounter for long-term current use of medication [facility]* Diagnosis Encounter for gynecological examination (general) (routine) without abnormal findings- Primary Screening for cervical cancer Screening for malignant neoplasm of the cervix Encounter for screening for human papillomavirus (HPV) Special screening examination for human papillomavirus (HPV) Cervical high risk human papillomavirus (HPV) DNA test positive Pelvic pain in female Unspecified symptom associated with female genital organs [facility] Diagnosis 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, chronic or unspecified Immunosuppression (HCC) Unspecified disorder of immune mechanism Vitamin D deficiency Unspecified vitamin D deficiency [facility]* Diagnosis Cervical high risk HPV (human papillomavirus) test positive- Primary Cervical high risk human papillomavirus (HPV) DNA test positive [facility]* Diagnosis Cervical high risk HPV (human papillomavirus) test positive- Primary Cervical high risk human papillomavirus (HPV) DNA test positive Nonavalent human papilloma virus (HPV) vaccine for HPV types 6, 11, 16, 18, 31, 33, 45, 52, and 58 administered [facility]* Diagnosis Need for prophylactic vaccination/inoculation against viral disease- Primary Need for prophylactic vaccination and inoculation against other viral diseases [facility]* Diagnosis Need for prophylactic vaccination/inoculation against viral disease- Primary Need for prophylactic vaccination and inoculation against other viral diseases [facility]* Diagnosis 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, chronic or unspecified Chest pain, unspecified type 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, chronic or unspecified Chest pain, unspecified type [facility] [place] [facility]* Diagnosis Vitamin D deficiency- Primary Unspecified vitamin D deficiency Class 3 severe obesity due to excess calories with body mass index (BMI) of 50.0 to 59.9 in adult, unspecified whether serious comorbidity present (HCC) [facility] [place] [facility]* Diagnosis Costochondritis Tietze's disease [facility] [place] [facility]* 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 [facility] [place] [facility]* 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 [facility] [place] [facility]* Diagnosis 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, chronic or unspecified Chest pain, unspecified type [facility] [place] [facility]* Diagnosis Chronic left shoulder pain Pain in joint, shoulder region [facility] [place]* Diagnosis Bilateral hip pain- Primary Pain in joint, pelvic region and thigh Chronic pain of both knees POTS (postural orthostatic tachycardia syndrome) Tachycardia, unspecified Arthritis Arthropathy, unspecified, site unspecified Mobility poor Other ill-defined conditions [facility] [place] [facility]* Diagnosis Bilateral hip pain Pain in joint, pelvic region and thigh Chronic pain of both knees POTS (postural orthostatic tachycardia syndrome) Tachycardia, unspecified Arthritis Arthropathy, unspecified, site unspecified [facility] [place] [facility]* Diagnosis History of eating disorder- Primary Personal history of other mental disorder Class 3 severe obesity due to excess calories with body mass index (BMI) of 50.0 to 59.9 in adult, unspecified whether serious comorbidity present (HCC) MAXWELL (obstructive sleep apnea) Obstructive sleep apnea (adult) (pediatric) Dietary counseling Dietary surveillance and counseling POTS (postural orthostatic tachycardia syndrome) Tachycardia, unspecified [facility] [place] [facility]* Diagnosis Left ankle pain, unspecified chronicity [facility] [place] [facility]* Diagnosis Acute left ankle pain Foot pain, left Pain in limb [facility] [place] [facility]* 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, chronic or unspecified documented in this encounter [facility] note* Diagnosis Left wrist pain Pain in joint, forearm Acute pain of left shoulder documented in this encounter [facility] note* Diagnosis Chronic sinusitis, unspecified location documented in this encounter [facility] note* Diagnosis Cough documented in this encounter [facility] for referral (narrative)* Outpatient Procedure (Routine) - Pending Review Specialty Diagnoses / Procedures Referred By Christie hidalgo Referred To Contact [facility] Diagnoses Encounter for IUD insertion Procedures INSERT INTRAUTERINE DEVICE LEVONORGESTREL IU 52MG 5 YR INSERT INTRAUTERINE DEVICE Francoise Rowley APRN.CNM [address] [place] [address] [facility] [place] [address] [facility] [address] Referral ID Status Reason Start Date Expiration Date Visits Requested Visits Authorized [id number] Pending Review Auto-Generat ed Referral 12/04/2021 12/04/2022 1 1 T [facility] for referral (narrative)* Diagnostic Procedure Only (Routine) - Authorized Specialty Diagnoses / Procedures Referred By Christie hidalgo Referred To Contact [facility] Diagnoses Intrauterine contraceptive device threads lost, initial encounter Procedures US FEMALE PELVIS TRANSVAG US TRANSVAGINAL Francoise Rowley APRN.CNM [address] [place] [address] [facility] Referral ID Status Reason Start Date Expiration Date Visits Requested Visits Authorized [id number] Authorized Auto-Generat ed Referral 01/20/2022 02/12/2023 1 1 T [facility] for referral (narrative)* Diagnostic Procedure Only (Routine) - Closed Specialty Diagnoses / Procedures Referred By Christie hidalgo Referred To Contact [facility] Diagnoses Intrauterine contraceptive device threads lost, initial encounter Procedures US FEMALE PELVIS TRANSVAG US TRANSVAGINAL Francoise Rowley APRN.CNM [address] [place] [address] [facility] Referral ID Status Reason Start Date Expiration Date V isits Requested Visits Authorized [id number] Closed Auto-Generate d Referral 01/20/2022 02/12/2023 1 1 [facility] for referral (narrative)* Consultation (Routine) - New Request Specialty Diagnoses / Procedures Referred By Contac t Referred To Contact Gynecology Diagnoses IUD check up Taylor, LARON Ge [address] [place] [id number] Referral ID Status Reason Start Date Expiration Date V isits Requested Visits Authorized [id number] New Request 04/16/2022 05/11/2023 1 1 [facility] for referral (narrative)* Outpatient Procedure (Routine) - Closed Specialty Diagnoses / Procedures Referred By Contac t Referred To Contact [facility] Diagnoses Abnormal EKG POTS (postural orthostatic tachycardia syndrome) Procedures ECG COMPLETE ECG ROUTINE ECG W/LEAST 12 LDS W/I&R Genaro Morales APRN.SPORTS TEACHER [address] [place] [address] [facility] [place] [address] [place] [address] Referral ID Status Reason Start Date Expiration Date V isits Requested Visits Authorized [id number] Closed Auto-Generate d Referral 05/20/2023 05/19/2024 1 1 * Consult, Test, Treat (Routine) - Authorized Specialty Diagnoses / Procedures Referred By Contac t Referred To Contact Cardiology Diagnoses Abnormal EKG POTS (postural orthostatic tachycardia syndrome) Procedures CONSULT TO CARDIOLOGY OFFICE/OUTPATIENT NEW HIGH MDM 60-74 MINUTES Genaro Morales APRN.SPORTS TEACHER [address] [place] [address] Referral ID Status Reason Start Date Expiration Date Visits Requested Visits Authorized [id number] Authorized PCP Requested Referral 05/20/2023 05/19/2024 1 1 [facility] for referral (narrative)* Diagnostic Procedure Only (Routine) - Authorized Specialty Diagnoses / Procedures Referred By Contac t Referred To Contact [facility] Diagnoses Pelvic pain in female Procedures PELVIC US WHI US PELVIC NONOBSTETRIC REAL-[place] [address] [place] [address] [address] Referral ID Status Reason Start Date Expiration Date Visits Requested Visits Authorized [id number] Authorized Auto-Generat ed Referral 07/22/2023 07/21/2024 1 1 [facility] for referral (narrative)* Diagnostic Procedure Only (Routine) - Closed Specialty Diagnoses / Procedures Referred By Contac t Referred To Contact [facility]AG[facility] Diagnoses Chronic left shoulder pain Procedures XR SHOULDER LIMITED 2V AP/TRUE AP LEFT RADEX SHOULDER COMPLETE MINIMUM 2 VIEWS Genaro Morales APRN.SPORTS TEACHER [address] [place] [address] [place] [address] Referral ID Status Reason Start Date Expiration Date V isits Requested Visits Authorized [id number] Closed Auto-Generate d Referral 10/14/2023 11/12/2024 1 1 * Physical Therapy (Routine) - Pending Review Specialty Diagnoses / Procedures Referred By Contac t Referred To Contact [facility] Diagnoses Chronic left shoulder pain Procedures CONSULT TO PHYSICAL THERAPY PHYSICAL THERAPY EVALUATION HIGH COMPLEX 45 MINS Genaro Morales APRN.CNS [address] [place] [address] [facility] [address] [address] Referral ID Status Reason Start Date Expiration Date Visits Requested Visits Authorized [id number] Pending Review Auto-Generat ed Referral 10/14/2023 10/13/2024 1 1 [facility] for referral (narrative)* Outpatient Procedure (Routine) - New Request Specialty Diagnoses / Procedures Referred By Contac t Referred To Contact [facility] Diagnoses Pelvic pain in female Procedures REMOVE INTRAUTERINE DEVICE REMOVE INTRAUTERINE DEVICE Francoise Rowley APRN.CNM [address] [place] [address] [address] Referral ID Status Reason Start Date Expiration Date Visits Requested Visits Authorized [id number] New Request Auto-Generat ed Referral 02/27/2024 02/26/2025 1 1 [facility] for referral (narrative)* Outpatient Procedure (Routine) - Authorized Specialty Diagnoses / Procedures Referred By Contac t Referred To Contact [facility] Diagnoses Cervical high risk HPV (human papillomavirus) test positive Procedures COLPOSCOPY COLPOSCOPY CERVIX BX CERVIX & ENDOCRV CURRETAGE Nani Alejandre APRN.[employer] [address] [place] [address] [address] Referral ID Status Reason Start Date Expiration Date Visits Requested Visits Authorized [id number] Authorized Auto-Generat ed Referral 03/12/2024 03/12/2025 1 1 [facility] for referral (narrative)* Diagnostic Procedure Only (Routine) - Closed Specialty Diagnoses / Procedures Referred By Contac t Referred To Contact XR IMAGING Diagnoses Chronic left shoulder pain Procedures XR SHOULDER LIMITED 2V AP/TRUE AP LEFT RADEX SHOULDER COMPLETE MINIMUM 2 VIEWS Genaro Morales APRN.CNS [address] [place] [address] [place] [address] Referral ID Status Reason Start Date Expiration Date V isits Requested Visits Authorized [id number] Closed Auto-Generate d Referral 10/14/2023 11/12/2024 1 1 [facility] for referral (narrative)* Diagnostic Procedure Only (Routine) - Closed Specialty Diagnoses / Procedures Referred By Contac t Referred To Contact XR IMAGING Diagnoses Left ankle pain, unspecified chronicity Procedures XR ANKLE GENERAL 3V AP/LAT/OBL LEFT RADEX ANKLE COMPLETE MINIMUM 3 VIEWS Irwin Campbell MD [address] [place] [address] [place] [address] Referral ID Status Reason Start Date Expiration Date V isits Requested Visits Authorized [id number] Closed Auto-Generate d Referral 09/16/2021 10/16/2022 1 1 [facility] for referral (narrative)* Diagnostic Procedure Only (Urgent) - Closed Specialty Diagnoses / Procedures Referred By Contac t Referred To Contact XR IMAGING Diagnoses Foot pain, left Procedures XR FOOT GENERAL 3V AP/LAT/OBL LEFT X-RAY FOOT MINIMUM 3 VIEWS Rosaura Hickman APRN.[facility] [employer] [address] [place] [address] [place] [address] Referral ID Status Reason Start Date Expiration Date V isits Requested Visits Authorized [id number] Closed Auto-Generate d Referral 08/05/2021 09/04/2022 1 1 * Diagnostic Procedure Only (Urgent) - Closed Specialty Diagnoses / Procedures Referred By Contac t Referred To Contact XR IMAGING Diagnoses Acute left ankle pain Procedures XR ANKLE GENERAL 3V AP/LAT/OBL LEFT X-RAY ANKLE MINIMUM 3 VIEWS Rosaura Hickman APRN.[facility] [employer] [address] [place] [address] [place] [address] Referral ID Status Reason Start Date Expiration Date V isits Requested Visits Authorized [id number] Closed Auto-Generate d Referral 08/05/2021 09/04/2022 1 1 [facility] for referral (narrative)* Diagnostic Procedure Only (Routine) - Closed Specialty Diagnoses / Procedures Referred By Contac t Referred To Contact CT IMAGING Diagnoses Chronic sinusitis, unspecified location Procedures CT SINUS WO IVCON [place] [address] [place] [address] Ct Imaging [facility] Referral ID Status Reason Start Date Expiration Date V isits Requested Visits Authorized [id number] Closed Auto-Generate d Referral 06/27/2020 08/25/2020 3 3 [facility] for visit Narrative* Diagnostic Procedure Only (Routine) - Closed Specialty Diagnoses / Procedures Referred By Contac t Referred To Contact US IMAGING Diagnoses Intrauterine contraceptive device threads lost, initial encounter Procedures US FEMALE PELVIS TRANSVAG US TRANSVAGINAL Francoise Rowley APRN.CNM [address] [place] [address] Us Imaging Referral ID Status Reason Start Date Expiration Date V isits Requested Visits Authorized [id number] Closed Auto-Generate d Referral 01/20/2022 02/12/2023 1 1 [facility] for visit Narrative* Diagnostic Procedure Only (Routine) - Closed Specialty Diagnoses / Procedures Referred By Contac t Referred To Contact [facility] Diagnoses Pelvic pain in female Procedures PELVIC US WHI US PELVIC NONOBSTETRIC REAL[place] [address] [place] [address] [facility] [place] [address] [place] [address] Referral ID Status Reason Start Date Expiration Date V isits Requested Visits Authorized [id number] Closed Auto-Generate d Referral 07/22/2023 07/21/2024 1 1 [facility] for visit Narrative* Diagnostic Procedure Only (Routine) - Closed Specialty Diagnoses / Procedures Referred By Contac t Referred To Contact Radiology / [facility] Diagnoses ML Procedures XR CHEST Silvia Tucker MD [address] [place] [address] [facility] [address] [place] [address] Referral ID Status Reason Start Date Expiration Date Visits Re quested Visits Authorized [id number] Closed 04/02/2024 08/14/2024 1 1 [facility] for visit Narrative* Diagnostic Procedure Only (Routine) - Closed Specialty Diagnoses / Procedures Referred By Contac t Referred To Contact XR IMAGING Diagnoses Chronic left shoulder pain Procedures XR SHOULDER [id number] AP/TRUE AP RIGHT RADEX SHOULDER COMPLETE MINIMUM 2 VIEWS Genaro Morales, GENI.[employer]ORTS TEACHER [address] [place] [address] [place] [address] Referral ID Status Reason Start Date Expiration Date V isits Requested Visits Authorized [id number] Closed Auto-Generate d Referral 10/14/2023 11/12/2024 1 1 [facility] for visit Narrative* Diagnostic Procedure Only (Routine) - Closed Specialty Diagnoses / Procedures Referred By Contac t Referred To Contact XR IMAGING Diagnoses Left ankle pain, unspecified chronicity Procedures XR ANKLE GENERAL 3V AP/LAT/OBL LEFT RADEX ANKLE COMPLETE MINIMUM 3 VIEWS Irwin Campbell MD [address] [place] [address] [place] [address] Referral ID Status Reason Start Date Expiration Date V isits Requested Visits Authorized [id number] Closed Auto-Generate d Referral 09/16/2021 10/16/2022 1 1 [facility] for visit Narrative* Diagnostic Procedure Only (Urgent) - Closed Specialty Diagnoses / Procedures Referred By Contac t Referred To Contact XR IMAGING Diagnoses Foot pain, left Procedures XR FOOT GENERAL 3V AP/LAT/OBL LEFT X-RAY FOOT MINIMUM 3 VIEWS Rosaura Hickman, DIETARY COOK.[facility] [address] [place] [address] [place] [address] Referral ID Status Reason Start Date Expiration Date V isits Requested Visits Authorized [id number] Closed Auto-Generate d Referral 08/05/2021 09/04/2022 1 1 [facility] Summary Purpose Family History No Family History Records FoundNo Family History Records FoundNo Family History Records FoundNo Family History Records FoundNo Family History Records FoundNo Family History Records FoundNo Family History Records FoundNo Family History Records Found Advance Directives No Advanced Directives Records FoundNo Advanced Directives Records FoundNo Advanced Directives Records FoundNo Advanced Directives Records FoundNo Advanced Directives Records FoundNo Advanced Directives Records FoundNo Advanced Directives Records FoundNo Advanced Directives Records Found Health Concerns Infection Onset Date Last Indicated Resolved Time COVID-19 Rule-Out 11/12/2021 11/13/2021 11/13/2021 7:06 PM EDT Medications Administered Section Inactive Administered Medications - up to 3 most recent administrations Medication Order MAR Action Action Date Dose Rate Site levonorgestrel 20 mcg/24 hours (7 yrs) 52 mg 1 Each intrauterine device (MIRENA) 1 Each, INTRAUTERINE, ONCE (UP TO 30 DAYS AMB), 1 dose, On Tue12/04/21 at 1000, Hazardous Potential Reproductive Risk Drug: Use appropriate PPE. Given 12/04/2021 10:46 AM EDT 1 Each Inactive Administered Medications - up to 3 most recent administrations Medication Order MAR Action Action Date Dose Rate Site keTORolac 60 mg injection (Toradol) 60 mg, INTRAMUSCULAR, ONCE, 1 dose, On Tue05/20/23 at 0800, Ketorolac (Toradol) is indicated for the short-term (up to 5 days) management of moderately severe acute pain. Continuation of ketorolac (Toradol) beyond 5 days increases the risk of developing serious adverse events. Please verify the duration of therapy for ketorolac (Toradol)., If ordered PRN for pain, patient/guardian may elect to receive this medication for higher pain levels INSTEAD of the opioid, if preferred: Yes Given 05/20/2023 8:37 AM EDT 60 mg Buttocks, Right Reason for Referral Specialty Diagnoses / Procedures Referred By Contac t Referred To Contact MR IMAGING Diagnoses Chronic pain of left ankle Procedures MRI ANKLE WO IVCON LT MRI ANY JT LOWER EXTREM W/O CONTRAST MATRL Faustina Carcamo MD [address] [place] [address] Mr Imaging Referral ID Status Reason Start Date Expiration Date V isits Requested Visits Authorized [id number] Closed Auto-Generate d Referral 09/22/2021 10/22/2022 1 1 Specialty Diagnoses / Procedures Referred By Contac t Referred To Contact Podiatry Diagnoses Left ankle strain, sequela Procedures CONSULT TO PODIATRY OFFICE/OUTPATIENT [facility] 60-74 MINUTES Faustina Carcamo MD [address] [place] [address] Radha Steen [address] [place] [address] Referral ID Status Reason Start Date Expiration Date V isits Requested Visits Authorized [id number] Closed PCP Requested Referral 09/22/2021 09/22/2022 1 1 Specialty Diagnoses / Procedures Referred By Contac t Referred To Contact Diagnoses RLQ abdominal pain Procedures CT ABDOMEN/PELVIS WITH CONTRAST CHG CT SCAN,ABDOMENT AND PELVIS,W CONTRAST Juan Ramon Goodrich T, DIETARY COOK-[facility] [address] [place] [address] Referral ID Status Reason Start Date Expiration Date Visits Re quested Visits Authorized [id number] Closed 06/28/2022 07/23/2023 1 1 Specialty Diagnoses / Procedures Referred By Contac t Referred To Contact Diagnoses Vitamin D deficiency Class 3 severe obesity due to excess calories with body mass index (BMI) of 50.0 to 59.9 in adult, unspecified whether serious comorbidity present (HCC) Procedures CONSULT TO PSYCHIATRY OFFICE/OUTPATIENT [facility] 60 MINUTES Genaro Morales, GENI.SPORTS TEACHER [address] [place] [address] Referral ID Status Reason Start Date Expiration Date Visits Requested Visits Authorized [id number] Pending Review PCP Requested Referral 04/03/2024 04/03/2025 1 1 Specialty Diagnoses / Procedures Referred By Contac t Referred To Contact Nutrition Diagnoses Class 3 severe obesity due to excess calories with body mass index (BMI) of 50.0 to 59.9 in adult, unspecified whether serious comorbidity present (HCC) Procedures CONSULT TO NUTRITION THERAPY MEDICAL NUTRITION ASSMT&IVNTJ INDIV EACH [address] CT Morales Genaro, DIETARY COOK.SPORTS TEACHER [address] [place] [address] Referral ID Status Reason Start Date Expiration Date Visits Requested Visits Authorized [id number] Authorized PCP Requested Referral 04/03/2024 04/03/2025 1 4 Additional Source Comments INFORMATION SOURCE (unrecogn ized section and content) DATE CREATED AUTHOR 11/03/2021 [facility] DATE CREATED AUTHOR AUTHOR'S ORGANIZ ATION 05/15/2022 [facility] DATE CREATED AUTHOR AUTHOR'S ORGANIZ ATION 07/24/2022 [facility] DATE CREATED AUTHOR AUTHOR'S ORGANIZ ATION 08/06/2022 [facility] DATE CREATED AUTHOR AUTHOR'S ORGANIZ ATION 09/21/2022 [facility] DATE CREATED AUTHOR AUTHOR'S ORGANIZ ATION 05/29/2023 [facility] DATE CREATED AUTHOR AUTHOR'S ORGANIZ ATION 06/01/2023 [facility] DATE CREATED AUTHOR AUTHOR'S ORGANIZ ATION 05/20/2024 [facility] Source Comments (unrecognize d section and content) In the event this informatio n is protected by the Federal Confidentiality of Alcohol and Drug Abuse Patient Records regulations: The Federal rules restrict any use of the information to criminally investigate or prosecute any alcohol or drug abuse patient.[facility] the event this information is protected by the Federal Confidentiality of Alcohol and Drug Abuse Patient Records regulations: The Federal rules restrict any use of the information to criminally investigate or prosecute any alcohol or drug abuse patient.[facility] HospitalIn the event this information is protected by the Federal Confidentiality of Alcohol and Drug Abuse Patient Records regulations: The Federal rules restrict any use of the information to criminally investigate or prosecute any alcohol or drug abuse patient.[facility] the event this information is protected by the Federal Confidentiality of Alcohol and Drug Abuse Patient Records regulations: The Federal rules restrict any use of the information to criminally investigate or prosecute any alcohol or drug abuse patient.[facility] HospitalIn the event this information is protected by the Federal Confidentiality of Alcohol and Drug Abuse Patient Records regulations: The Federal rules restrict any use of the information to criminally investigate or prosecute any alcohol or drug abuse patient.[facility] HospitalIn the event this information is protected by the Federal Confidentiality of Alcohol and Drug Abuse Patient Records regulations: The Federal rules restrict any use of the information to criminally investigate or prosecute any alcohol or drug abuse patient.[facility] HospitalIn the event this information is protected by the Federal Confidentiality of Alcohol and Drug Abuse Patient Records regulations: The Federal rules restrict any use of the information to criminally investigate or prosecute any alcohol or drug abuse patient.[facility] HospitalIn the event this information is protected by the Federal Confidentiality of Alcohol and Drug Abuse Patient Records regulations: The Federal rules restrict any use of the information to criminally investigate or prosecute any alcohol or drug abuse patient.[facility] HospitalIn the event this information is protected by the Federal Confidentiality of Alcohol and Drug Abuse Patient Records regulations: The Federal rules restrict any use of the information to criminally investigate or prosecute any alcohol or drug abuse patient.[facility] HospitalIn the event this information is protected by the Federal Confidentiality of Alcohol and Drug Abuse Patient Records regulations: The Federal rules restrict any use of the information to criminally investigate or prosecute any alcohol or drug abuse patient.[facility] HospitalIn the event this information is protected by the Federal Confidentiality of Alcohol and Drug Abuse Patient Records regulations: The Federal rules restrict any use of the information to criminally investigate or prosecute any alcohol or drug abuse patient.[facility] HospitalIn the event this information is protected by the Federal Confidentiality of Alcohol and Drug Abuse Patient Records regulations: The Federal rules restrict any use of the information to criminally investigate or prosecute any alcohol or drug abuse patient.[facility] HospitalIn the event this information is protected by the Federal Confidentiality of Alcohol and Drug Abuse Patient Records regulations: The Federal rules restrict any use of the information to criminally investigate or prosecute any alcohol or drug abuse patient.[facility] HospitalIn the event this information is protected by the Federal Confidentiality of Alcohol and Drug Abuse Patient Records regulations: The Federal rules restrict any use of the information to criminally investigate or prosecute any alcohol or drug abuse patient.[facility] HospitalIn the event this information is protected by the Federal Confidentiality of Alcohol and Drug Abuse Patient Records regulations: The Federal rules restrict any use of the information to criminally investigate or prosecute any alcohol or drug abuse patient.[facility] HospitalIn the event this information is protected by the Federal Confidentiality of Alcohol and Drug Abuse Patient Records regulations: The Federal rules restrict any use of the information to criminally investigate or prosecute any alcohol or drug abuse patient.[facility] HospitalIn the event this information is protected by the Federal Confidentiality of Alcohol and Drug Abuse Patient Records regulations: The Federal rules restrict any use of the information to criminally investigate or prosecute any alcohol or drug abuse patient.[facility] HospitalIn the event this information is protected by the Federal Confidentiality of Alcohol and Drug Abuse Patient Records regulations: The Federal rules restrict any use of the information to criminally investigate or prosecute any alcohol or drug abuse patient.[facility] HospitalIn the event this information is protected by the Federal Confidentiality of Alcohol and Drug Abuse Patient Records regulations: The Federal rules restrict any use of the information to criminally investigate or prosecute any alcohol or drug abuse patient.[facility] HospitalIn the event this information is protected by the Federal Confidentiality of Alcohol and Drug Abuse Patient Records regulations: The Federal rules restrict any use of the information to criminally investigate or prosecute any alcohol or drug abuse patient.[facility] HospitalIn the event this information is protected by the Federal Confidentiality of Alcohol and Drug Abuse Patient Records regulations: The Federal rules restrict any use of the information to criminally investigate or prosecute any alcohol or drug abuse patient.[facility] HospitalIn the event this information is protected by the Federal Confidentiality of Alcohol and Drug Abuse Patient Records regulations: The Federal rules restrict any use of the information to criminally investigate or prosecute any alcohol or drug abuse patient.[facility] HospitalIn the event this information is protected by the Federal Confidentiality of Alcohol and Drug Abuse Patient Records regulations: The Federal rules restrict any use of the information to criminally investigate or prosecute any alcohol or drug abuse patient.[facility] HospitalIn the event this information is protected by the Federal Confidentiality of Alcohol and Drug Abuse Patient Records regulations: The Federal rules restrict any use of the information to criminally investigate or prosecute any alcohol or drug abuse patient.[facility] HospitalIn the event this information is protected by the Federal Confidentiality of Alcohol and Drug Abuse Patient Records regulations: The Federal rules restrict any use of the information to criminally investigate or prosecute any alcohol or drug abuse patient.[facility] HospitalIn the event this information is protected by the Federal Confidentiality of Alcohol and Drug Abuse Patient Records regulations: The Federal rules restrict any use of the information to criminally investigate or prosecute any alcohol or drug abuse patient.[facility] HospitalIn the event this information is protected by the Federal Confidentiality of Alcohol and Drug Abuse Patient Records regulations: The Federal rules restrict any use of the information to criminally investigate or prosecute any alcohol or drug abuse patient.[facility] HospitalIn the event this information is protected by the Federal Confidentiality of Alcohol and Drug Abuse Patient Records regulations: The Federal rules restrict any use of the information to criminally investigate or prosecute any alcohol or drug abuse patient.[facility] HospitalIn the event this information is protected by the Federal Confidentiality of Alcohol and Drug Abuse Patient Records regulations: The Federal rules restrict any use of the information to criminally investigate or prosecute any alcohol or drug abuse patient.[facility] HospitalIn the event this information is protected by the Federal Confidentiality of Alcohol and Drug Abuse Patient Records regulations: The Federal rules restrict any use of the information to criminally investigate or prosecute any alcohol or drug abuse patient.[facility] HospitalIn the event this information is protected by the Federal Confidentiality of Alcohol and Drug Abuse Patient Records regulations: The Federal rules restrict any use of the information to criminally investigate or prosecute any alcohol or drug abuse patient.[facility] HospitalIn the event this information is protected by the Federal Confidentiality of Alcohol and Drug Abuse Patient Records regulations: The Federal rules restrict any use of the information to criminally investigate or prosecute any alcohol or drug abuse patient.[facility] HospitalIn the event this information is protected by the Federal Confidentiality of Alcohol and Drug Abuse Patient Records regulations: The Federal rules restrict any use of the information to criminally investigate or prosecute any alcohol or drug abuse patient.[facility] HospitalIn the event this information is protected by the Federal Confidentiality of Alcohol and Drug Abuse Patient Records regulations: The Federal rules restrict any use of the information to criminally investigate or prosecute any alcohol or drug abuse patient.[facility] HospitalIn the event this information is protected by the Federal Confidentiality of Alcohol and Drug Abuse Patient Records regulations: The Federal rules restrict any use of the information to criminally investigate or prosecute any alcohol or drug abuse patient.[facility] HospitalIn the event this information is protected by the Federal Confidentiality of Alcohol and Drug Abuse Patient Records regulations: The Federal rules restrict any use of the information to criminally investigate or prosecute any alcohol or drug abuse patient.[facility] HospitalIn the event this information is protected by the Federal Confidentiality of Alcohol and Drug Abuse Patient Records regulations: The Federal rules restrict any use of the information to criminally investigate or prosecute any alcohol or drug abuse patient.[facility] HospitalIn the event this information is protected by the Federal Confidentiality of Alcohol and Drug Abuse Patient Records regulations: The Federal rules restrict any use of the information to criminally investigate or prosecute any alcohol or drug abuse patient.[facility] HospitalIn the event this information is protected by the Federal Confidentiality of Alcohol and Drug Abuse Patient Records regulations: The Federal rules restrict any use of the information to criminally investigate or prosecute any alcohol or drug abuse patient.[facility] HospitalIn the event this information is protected by the Federal Confidentiality of Alcohol and Drug Abuse Patient Records regulations: The Federal rules restrict any use of the information to criminally investigate or prosecute any alcohol or drug abuse patient.[facility] HospitalIn the event this information is protected by the Federal Confidentiality of Alcohol and Drug Abuse Patient Records regulations: The Federal rules restrict any use of the information to criminally investigate or prosecute any alcohol or drug abuse patient.[facility] HospitalIn the event this information is protected by the Federal Confidentiality of Alcohol and Drug Abuse Patient Records regulations: The Federal rules restrict any use of the information to criminally investigate or prosecute any alcohol or drug abuse patient.[facility] HospitalIn the event this information is protected by the Federal Confidentiality of Alcohol and Drug Abuse Patient Records regulations: The Federal rules restrict any use of the information to criminally investigate or prosecute any alcohol or drug abuse patient.[facility] HospitalIn the event this information is protected by the Federal Confidentiality of Alcohol and Drug Abuse Patient Records regulations: The Federal rules restrict any use of the information to criminally investigate or prosecute any alcohol or drug abuse patient.[facility] HospitalIn the event this information is protected by the Federal Confidentiality of Alcohol and Drug Abuse Patient Records regulations: The Federal rules restrict any use of the information to criminally investigate or prosecute any alcohol or drug abuse patient.[facility] HospitalIn the event this information is protected by the Federal Confidentiality of Alcohol and Drug Abuse Patient Records regulations: The Federal rules restrict any use of the information to criminally investigate or prosecute any alcohol or drug abuse patient.[facility] HospitalIn the event this information is protected by the Federal Confidentiality of Alcohol and Drug Abuse Patient Records regulations: The Federal rules restrict any use of the information to criminally investigate or prosecute any alcohol or drug abuse patient.[facility] HospitalIn the event this information is protected by the Federal Confidentiality of Alcohol and Drug Abuse Patient Records regulations: The Federal rules restrict any use of the information to criminally investigate or prosecute any alcohol or drug abuse patient.[facility] the event this information is protected by the Federal Confidentiality of Alcohol and Drug Abuse Patient Records regulations: The Federal rules restrict any use of the information to criminally investigate or prosecute any alcohol or drug abuse patient.[facility] HospitalIn the event this information is protected by the Federal Confidentiality of Alcohol and Drug Abuse Patient Records regulations: The Federal rules restrict any use of the information to criminally investigate or prosecute any alcohol or drug abuse patient.[facility] HospitalIn the event this information is protected by the Federal Confidentiality of Alcohol and Drug Abuse Patient Records regulations: The Federal rules restrict any use of the information to criminally investigate or prosecute any alcohol or drug abuse patient.[facility] HospitalIn the event this information is protected by the Federal Confidentiality of Alcohol and Drug Abuse Patient Records regulations: The Federal rules restrict any use of the information to criminally investigate or prosecute any alcohol or drug abuse patient.[facility] HospitalIn the event this information is protected by the Federal Confidentiality of Alcohol and Drug Abuse Patient Records regulations: The Federal rules restrict any use of the information to criminally investigate or prosecute any alcohol or drug abuse patient.[facility] HospitalIn the event this information is protected by the Federal Confidentiality of Alcohol and Drug Abuse Patient Records regulations: The Federal rules restrict any use of the information to criminally investigate or prosecute any alcohol or drug abuse patient.[facility] HospitalIn the event this information is protected by the Federal Confidentiality of Alcohol and Drug Abuse Patient Records regulations: The Federal rules restrict any use of the information to criminally investigate or prosecute any alcohol or drug abuse patient.[facility] HospitalIn the event this information is protected by the Federal Confidentiality of Alcohol and Drug Abuse Patient Records regulations: The Federal rules restrict any use of the information to criminally investigate or prosecute any alcohol or drug abuse patient.[facility] HospitalIn the event this information is protected by the Federal Confidentiality of Alcohol and Drug Abuse Patient Records regulations: The Federal rules restrict any use of the information to criminally investigate or prosecute any alcohol or drug abuse patient.[facility] HospitalIn the event this information is protected by the Federal Confidentiality of Alcohol and Drug Abuse Patient Records regulations: The Federal rules restrict any use of the information to criminally investigate or prosecute any alcohol or drug abuse patient.[facility] HospitalIn the event this information is protected by the Federal Confidentiality of Alcohol and Drug Abuse Patient Records regulations: The Federal rules restrict any use of the information to criminally investigate or prosecute any alcohol or drug abuse patient.[facility] HospitalIn the event this information is protected by the Federal Confidentiality of Alcohol and Drug Abuse Patient Records regulations: The Federal rules restrict any use of the information to criminally investigate or prosecute any alcohol or drug abuse patient.[facility] HospitalIn the event this information is protected by the Federal Confidentiality of Alcohol and Drug Abuse Patient Records regulations: The Federal rules restrict any use of the information to criminally investigate or prosecute any alcohol or drug abuse patient.[facility] HospitalIn the event this information is protected by the Federal Confidentiality of Alcohol and Drug Abuse Patient Records regulations: The Federal rules restrict any use of the information to criminally investigate or prosecute any alcohol or drug abuse patient.[facility] HospitalIn the event this information is protected by the Federal Confidentiality of Alcohol and Drug Abuse Patient Records regulations: The Federal rules restrict any use of the information to criminally investigate or prosecute any alcohol or drug abuse patient.[facility] HospitalIn the event this information is protected by the Federal Confidentiality of Alcohol and Drug Abuse Patient Records regulations: The Federal rules restrict any use of the information to criminally investigate or prosecute any alcohol or drug abuse patient.[facility] HospitalIn the event this information is protected by the Federal Confidentiality of Alcohol and Drug Abuse Patient Records regulations: The Federal rules restrict any use of the information to criminally investigate or prosecute any alcohol or drug abuse patient.[facility] HospitalIn the event this information is protected by the Federal Confidentiality of Alcohol and Drug Abuse Patient Records regulations: The Federal rules restrict any use of the information to criminally investigate or prosecute any alcohol or drug abuse patient.[facility] HospitalIn the event this information is protected by the Federal Confidentiality of Alcohol and Drug Abuse Patient Records regulations: The Federal rules restrict any use of the information to criminally investigate or prosecute any alcohol or drug abuse patient.[facility] HospitalIn the event this information is protected by the Federal Confidentiality of Alcohol and Drug Abuse Patient Records regulations: The Federal rules restrict any use of the information to criminally investigate or prosecute any alcohol or drug abuse patient.[facility] HospitalIn the event this information is protected by the Federal Confidentiality of Alcohol and Drug Abuse Patient Records regulations: The Federal rules restrict any use of the information to criminally investigate or prosecute any alcohol or drug abuse patient.[facility] HospitalIn the event this information is protected by the Federal Confidentiality of Alcohol and Drug Abuse Patient Records regulations: The Federal rules restrict any use of the information to criminally investigate or prosecute any alcohol or drug abuse patient.[facility] HospitalIn the event this information is protected by the Federal Confidentiality of Alcohol and Drug Abuse Patient Records regulations: The Federal rules restrict any use of the information to criminally investigate or prosecute any alcohol or drug abuse patient.[facility] HospitalIn the event this information is protected by the Federal Confidentiality of Alcohol and Drug Abuse Patient Records regulations: The Federal rules restrict any use of the information to criminally investigate or prosecute any alcohol or drug abuse patient.[facility] HospitalIn the event this information is protected by the Federal Confidentiality of Alcohol and Drug Abuse Patient Records regulations: The Federal rules restrict any use of the information to criminally investigate or prosecute any alcohol or drug abuse patient.[facility] HospitalIn the event this information is protected by the Federal Confidentiality of Alcohol and Drug Abuse Patient Records regulations: The Federal rules restrict any use of the information to criminally investigate or prosecute any alcohol or drug abuse patient.[facility] HospitalIn the event this information is protected by the Federal Confidentiality of Alcohol and Drug Abuse Patient Records regulations: The Federal rules restrict any use of the information to criminally investigate or prosecute any alcohol or drug abuse patient.[facility] HospitalIn the event this information is protected by the Federal Confidentiality of Alcohol and Drug Abuse Patient Records regulations: The Federal rules restrict any use of the information to criminally investigate or prosecute any alcohol or drug abuse patient.[facility] HospitalIn the event this information is protected by the Federal Confidentiality of Alcohol and Drug Abuse Patient Records regulations: The Federal rules restrict any use of the information to criminally investigate or prosecute any alcohol or drug abuse patient.[facility] HospitalIn the event this information is protected by the Federal Confidentiality of Alcohol and Drug Abuse Patient Records regulations: The Federal rules restrict any use of the information to criminally investigate or prosecute any alcohol or drug abuse patient.[facility] HospitalIn the event this information is protected by the Federal Confidentiality of Alcohol and Drug Abuse Patient Records regulations: The Federal rules restrict any use of the information to criminally investigate or prosecute any alcohol or drug abuse patient.[facility] HospitalIn the event this information is protected by the Federal Confidentiality of Alcohol and Drug Abuse Patient Records regulations: The Federal rules restrict any use of the information to criminally investigate or prosecute any alcohol or drug abuse patient.[facility] HospitalIn the event this information is protected by the Federal Confidentiality of Alcohol and Drug Abuse Patient Records regulations: The Federal rules restrict any use of the information to criminally investigate or prosecute any alcohol or drug abuse patient.[facility] HospitalIn the event this information is protected by the Federal Confidentiality of Alcohol and Drug Abuse Patient Records regulations: The Federal rules restrict any use of the information to criminally investigate or prosecute any alcohol or drug abuse patient.[facility] HospitalIn the event this information is protected by the Federal Confidentiality of Alcohol and Drug Abuse Patient Records regulations: The Federal rules restrict any use of the information to criminally investigate or prosecute any alcohol or drug abuse patient.[facility] HospitalIn the event this information is protected by the Federal Confidentiality of Alcohol and Drug Abuse Patient Records regulations: The Federal rules restrict any use of the information to criminally investigate or prosecute any alcohol or drug abuse patient.[facility] HospitalIn the event this information is protected by the Federal Confidentiality of Alcohol and Drug Abuse Patient Records regulations: The Federal rules restrict any use of the information to criminally investigate or prosecute any alcohol or drug abuse patient.[facility] HospitalIn the event this information is protected by the Federal Confidentiality of Alcohol and Drug Abuse Patient Records regulations: The Federal rules restrict any use of the information to criminally investigate or prosecute any alcohol or drug abuse patient.[facility] HospitalIn the event this information is protected by the Federal Confidentiality of Alcohol and Drug Abuse Patient Records regulations: The Federal rules restrict any use of the information to criminally investigate or prosecute any alcohol or drug abuse patient.[facility] HospitalIn the event this information is protected by the Federal Confidentiality of Alcohol and Drug Abuse Patient Records regulations: The Federal rules restrict any use of the information to criminally investigate or prosecute any alcohol or drug abuse patient.[facility] HospitalIn the event this information is protected by the Federal Confidentiality of Alcohol and Drug Abuse Patient Records regulations: The Federal rules restrict any use of the information to criminally investigate or prosecute any alcohol or drug abuse patient.[facility] HospitalIn the event this information is protected by the Federal Confidentiality of Alcohol and Drug Abuse Patient Records regulations: The Federal rules restrict any use of the information to criminally investigate or prosecute any alcohol or drug abuse patient.[facility] HospitalIn the event this information is protected by the Federal Confidentiality of Alcohol and Drug Abuse Patient Records regulations: The Federal rules restrict any use of the information to criminally investigate or prosecute any alcohol or drug abuse patient.[facility] HospitalIn the event this information is protected by the Federal Confidentiality of Alcohol and Drug Abuse Patient Records regulations: The Federal rules restrict any use of the information to criminally investigate or prosecute any alcohol or drug abuse patient.[facility] HospitalIn the event this information is protected by the Federal Confidentiality of Alcohol and Drug Abuse Patient Records regulations: The Federal rules restrict any use of the information to criminally investigate or prosecute any alcohol or drug abuse patient.[facility] HospitalIn the event this information is protected by the Federal Confidentiality of Alcohol and Drug Abuse Patient Records regulations: The Federal rules restrict any use of the information to criminally investigate or prosecute any alcohol or drug abuse patient.[facility] HospitalIn the event this information is protected by the Federal Confidentiality of Alcohol and Drug Abuse Patient Records regulations: The Federal rules restrict any use of the information to criminally investigate or prosecute any alcohol or drug abuse patient.[facility] HospitalIn the event this information is protected by the Federal Confidentiality of Alcohol and Drug Abuse Patient Records regulations: The Federal rules restrict any use of the information to criminally investigate or prosecute any alcohol or drug abuse patient.[facility] HospitalIn the event this information is protected by the Federal Confidentiality of Alcohol and Drug Abuse Patient Records regulations: The Federal rules restrict any use of the information to criminally investigate or prosecute any alcohol or drug abuse patient.[facility] HospitalIn the event this information is protected by the Federal Confidentiality of Alcohol and Drug Abuse Patient Records regulations: The Federal rules restrict any use of the information to criminally investigate or prosecute any alcohol or drug abuse patient.[facility] the event this information is protected by the Federal Confidentiality of Alcohol and Drug Abuse Patient Records regulations: The Federal rules restrict any use of the information to criminally investigate or prosecute any alcohol or drug abuse patient.[facility] HospitalIn the event this information is protected by the Federal Confidentiality of Alcohol and Drug Abuse Patient Records regulations: The Federal rules restrict any use of the information to criminally investigate or prosecute any alcohol or drug abuse patient.[facility] HospitalIn the event this information is protected by the Federal Confidentiality of Alcohol and Drug Abuse Patient Records regulations: The Federal rules restrict any use of the information to criminally investigate or prosecute any alcohol or drug abuse patient.[facility] HospitalIn the event this information is protected by the Federal Confidentiality of Alcohol and Drug Abuse Patient Records regulations: The Federal rules restrict any use of the information to criminally investigate or prosecute any alcohol or drug abuse patient.[facility] HospitalIn the event this information is protected by the Federal Confidentiality of Alcohol and Drug Abuse Patient Records regulations: The Federal rules restrict any use of the information to criminally investigate or prosecute any alcohol or drug abuse patient.[facility] HospitalIn the event this information is protected by the Federal Confidentiality of Alcohol and Drug Abuse Patient Records regulations: The Federal rules restrict any use of the information to criminally investigate or prosecute any alcohol or drug abuse patient.[facility] HospitalIn the event this information is protected by the Federal Confidentiality of Alcohol and Drug Abuse Patient Records regulations: The Federal rules restrict any use of the information to criminally investigate or prosecute any alcohol or drug abuse patient.[facility] HospitalIn the event this information is protected by the Federal Confidentiality of Alcohol and Drug Abuse Patient Records regulations: The Federal rules restrict any use of the information to criminally investigate or prosecute any alcohol or drug abuse patient.[facility] HospitalIn the event this information is protected by the Federal Confidentiality of Alcohol and Drug Abuse Patient Records regulations: The Federal rules restrict any use of the information to criminally investigate or prosecute any alcohol or drug abuse patient.[facility] HospitalIn the event this information is protected by the Federal Confidentiality of Alcohol and Drug Abuse Patient Records regulations: The Federal rules restrict any use of the information to criminally investigate or prosecute any alcohol or drug abuse patient.[facility] HospitalIn the event this information is protected by the Federal Confidentiality of Alcohol and Drug Abuse Patient Records regulations: The Federal rules restrict any use of the information to criminally investigate or prosecute any alcohol or drug abuse patient.[facility] HospitalIn the event this information is protected by the Federal Confidentiality of Alcohol and Drug Abuse Patient Records regulations: The Federal rules restrict any use of the information to criminally investigate or prosecute any alcohol or drug abuse patient.[facility] HospitalIn the event this information is protected by the Federal Confidentiality of Alcohol and Drug Abuse Patient Records regulations: The Federal rules restrict any use of the information to criminally investigate or prosecute any alcohol or drug abuse patient.[facility] HospitalIn the event this information is protected by the Federal Confidentiality of Alcohol and Drug Abuse Patient Records regulations: The Federal rules restrict any use of the information to criminally investigate or prosecute any alcohol or drug abuse patient.[facility] HospitalIn the event this information is protected by the Federal Confidentiality of Alcohol and Drug Abuse Patient Records regulations: The Federal rules restrict any use of the information to criminally investigate or prosecute any alcohol or drug abuse patient.[facility] Reason for Visit (unrecogniz ed section and content) Reason Comments Refill Request Reason Comments Established Patient Reason Comments Derm Problem mole on nose that sc abs and bleeds, mole under right breast changing color Reason Onset Date Comments Refill Request 11/28/2021 Reason Onset Date Comments Insertion Of IUD 12/04/2021 Specialty Diagnoses / Procedures Referred By Christie hidalgo Referred To Contact [facility] Diagnoses Encounter for IUD insertion Procedures INSERT INTRAUTERINE DEVICE INSERT INTRAUTERINE DEVICE Francoise Rowley APRN.[facility] [address] [place] [address] [facility] [place] [address] [place] [address] Referral ID Status Reason Start Date Expiration Date V isits Requested Visits Authorized [id number] Authorized 08/15/2021 08/14/2022 2 2 Reason Comments Follow Up Reason Comments Shortness of Breath Reason Comments IUD Reason Onset Date Comments Refill Request 01/16/2022 Reason Comments Results Reason Onset Date Comments Refill Request 02/18/2022 Reason Onset Date Comments SPP Inflammatory Conditions - Treatment Referral 02/19/2022 I[facility] Reason Comments Consult Reason Comments Consult [facility] Pt Outreach F/U Reason Onset Date Comments Refill Request 02/25/2022 Reason Comments Consult [facility] assessment Virt ual Reason Onset Date Comments SPP Inflammatory Conditions - Medication Refill 04/06/2022 [facility] Reason Comments Appointment Reason Onset Date Comments Refill Request 04/12/2022 Reason Comments Establish Care Reason Comments Head Injury Pt fell and hit her head on side of her apartment building x today, no LOC Reason Comments Head Injury Reason Comments Follow Up Reason Comments Cough Reason Comments Abdominal Pain Pt arrives with c/o RLQ pain x 3 days, reports vomiting 1x, fever highest at 100. Reports hx of right ovarian cyst 12/04. Denies vaginal bleeding, denies urinary or bowel issues. Pt skin pwd, respirations even and unlabored. Specialty Diagnoses / Procedures Referred By Christie hidalgo Referred To Contact Diagnoses RLQ abdominal pain Procedures CT ABDOMEN/PELVIS WITH CONTRAST CHG CT SCAN,ABDOMENT AND PELVIS,W CONTRAST Juan Ramon Goodrich, [facility] [address] [place] [address] Referral ID Status Reason Start Date Expiration Date Visits Re quested Visits Authorized [id number] Closed 06/28/2022 07/23/2023 1 1 Reason Comments Pelvic Pain Intermittently x6 mo nths Reason Onset Date Comments Refill Request 08/02/2022 Reason Comments Medication Authorization Reason Comments Behavioral Health Social Work Reason Onset Date Comments Refill Request 08/12/2022 Reason Comments Chronic Migraine Reason Comments Established Patient 4 month follow up Specialty Diagnoses / Procedures Referred By Christie hidalgo Referred To Contact Diagnoses . Procedures . [facility] Referral ID Status Reason Start Date Expiration Date V isits Requested Visits Authorized [id number] Closed Patient Cleared - Qualified 100% FAS 07/19/2022 10/17/2022 99 99 Reason Comments Medication Authorization Ilaris Reason Comments Dog Bite Dog bite of R index finger x 09/20/22 @ 18:30Accidentally bit while playing with her own dog per pt Reason Comments Costochondiritis Left upper chest wal l pain and tenderness Reason Comments Forms Reason Comments Recheck Reason Comments Letter Needs letter for wor k. Reason Comments new form coming from [employer] Reason Comments requesting copy of form faxed earlier Reason Comments Discussion Need for accommodati ons at work; new form for [employer] needs completed since they denied all of the requested accommodations Reason Comments Insurance Authorization Reason Comments Ear Pain left and sore throat Reason Onset Date Comments Refill Request 02/16/2023 Reason Comments Patient Question Appeal Medication Preauthorization Reason Onset Date Comments SPP Inflammatory Conditions - Treatment Referral 04/06/2023 [employer] Insurance Authorization 04/06/2023 PA submi tted Reason Onset Date Comments Refill Request 04/12/2023 Reason Comments Question Reason Comments Barky Cough Throat Problem Laryngitis Reason Onset Date Comments Refill Request 04/21/2023 Reason Comments Patient Question Reason Comments ER F/U Reason Comments Urinary Problem Reason Comments Pain Burning sensation on chest for 2 days and vomit today pain in upper back of shoulder 2 days Reason Onset Date Comments Refill Request 06/23/2023 Reason Comments Pelvic Pain Pelvic pain for abou t 1 year- pain started after this time- intermittent -bad for a few days and then lingers for about another week; denies any abnormal bleeding; had ovarian cyst that ruptured in May 2022 Reason Comments Face Pain Reason Onset Date Comments Refill Request 09/23/2023 Reason Comments STD Reason Comments Established Patient 3 Months F/u Reason Comments Established Patient Follow-Up Reason Comments Diarrhea Sore throat, cough s tarted today Reason Comments Established Patient Follow up and GI Iss ues Reason Comments Yearly Exam Reason Comments Arthritis Specialty Diagnoses / Procedures Referred By [facility] Referred To Contact RHEUMATOLOGY Diagnoses Juvenile idiopathic arthritis (HCC) Procedures office visit Silvia Tucker MD [address] [place] [address] [facility] [address] [id number] Referral ID Status Reason Start Date Expiration Date Visits Requested Visits Authorized [id number] New Request Financial Clearance Required - Self Pay OON/Self Pay Override 03/12/2024 06/10/2024 99 99 Reason Comments Results Colposcopy Reason Comments Colposcopy Specialty Diagnoses / [facility] Referred To Contact [facility] Diagnoses Cervical high risk HPV (human papillomavirus) test positive Procedures COLPOSCOPY COLPOSCOPY CERVIX BX CERVIX & ENDOCRV CURRETAGE Nani Alejandre, [facility] [address] [place] [address] [facility] [place] [address] [place] [address] Referral ID Status Reason Start Date Expiration Date V isits Requested Visits Authorized [id number] Closed Auto-Generate d Referral 03/12/2024 03/12/2025 1 1 Reason Comments Orders HPV Reason Onset Date Comments Gardasil Injection 03/29/2024 Reason Onset Date Comments Refill Request 04/17/2024 Reason Onset Date Comments SPP Inflammatory Conditions - Treatment Referral 04/19/2024 [facility] Insurance Authorization 04/19/2024 PA? Reason Onset Date Comments Refill Request 04/24/2024 Reason Comments Mobility problems Reason Comments Orders Reason Comments Orders Adjustable Rollator Reason Comments Assessment Patient Education Specialty Diagnoses / Procedures [facility] Referred To Contact Nutrition Diagnoses Class 3 severe obesity due to excess calories with body mass index (BMI) of 50.0 to 59.9 in adult, unspecified whether serious comorbidity present (HCC) Procedures CONSULT TO NUTRITION THERAPY MEDICAL NUTRITION ASSMT&IVNTJ INDIV EACH 15 CT Genaro Morales, DIETARY COOK.SPORTS TEACHER [address] [place] [address] Referral ID Status Reason Start Date Expiration Date Visits Requested Visits Authorized [id number] Authorized PCP Requested Referral 04/03/2024 04/03/2025 1 4 Reason Onset Date Comments SPP Inflammatory Conditions - Medication Refill 05/15/2024 Ilaris Reason Comments Radiology CT Specialty Diagnoses / Procedures Referred By Contac t Referred To Contact CT IMAGING Diagnoses Chronic sinusitis, unspecified location Procedures CT SINUS WO IVCON [place] [id number] [place] [address] Referral ID Status Reason Start Date Expiration Date V isits Requested Visits Authorized [id number] Closed Auto-Generate d Referral 06/27/2020 08/25/2020 3 3 Care Teams (unrecognized sec tion and content) Metropolitan Editor Relationship Specialty Start Date End Date Faustina Carcamo MD [address] [place], [place] [id number] PCP - General Internal Medicine 04/10/13 Metropolitan Editor Relationship Specialty Start Date End Date Faustina Carcamo MD [facility] [place], [place] [id number] PCP - General Internal Medicine 04/10/13 Metropolitan Editor Relationship Specialty Start Date End Date Faustina Carcamo MD [address] [place], [place] [id number] PCP - General Internal Medicine 04/10/13 Metropolitan Editor Relationship Specialty Start Date End Date Faustina Carcamo MD [address] [place], [place] [id number] PCP - General Internal Medicine 04/10/13 Metropolitan Editor Relationship Specialty Start Date End Date Faustina Carcamo MD [address] [place] [address] PCP - General Internal Medicine 04/10/13 Metropolitan Editor Relationship Specialty Start Date End Date Faustina Carcamo MD [facility] [place] [address] PCP - General Internal Medicine 04/10/13 Metropolitan Editor Relationship Specialty Start Date End Date Faustina Carcamo MD [address] [place] [address], [place] [address] PCP - General Internal Medicine 04/10/13 Metropolitan Editor Relationship Specialty Start Date End Date Faustina Carcamo MD [address] [place] [address], [place] [address] PCP - General Internal Medicine 04/10/13 Metropolitan Editor Relationship Specialty Start Date End Date Faustina Carcamo MD [address] [place] [address], [place] [address] PCP - General Internal Medicine 04/10/13 Metropolitan Editor Relationship Specialty Start Date End Date Faustina Carcamo MD [address] [place] [address], [place] [address] PCP - General Internal Medicine 04/10/13 Metropolitan Editor Relationship Specialty Start Date End Date Faustina Carcamo MD [address] [place] [address], [place] [address] PCP - General Internal Medicine 04/10/13 Metropolitan Editor Relationship Specialty Start Date End Date Faustina Carcamo MD [address] [place] [address], [place] [address] PCP - General Internal Medicine 04/10/13 Metropolitan Editor Relationship Specialty Start Date End Date Faustina Carcamo MD [address] [place] [address], [place] [address] PCP - General Internal Medicine 04/10/13 Metropolitan Editor Relationship Specialty Start Date End Date Faustina Carcamo MD [address] [place] [address] PCP - General Internal Medicine 04/10/13 Metropolitan Editor Relationship Specialty Start Date End Date Faustina Carcamo MD [address] [place] [address] PCP - General Internal Medicine 04/10/13 Metropolitan Editor Relationship Specialty Start Date End Date Faustina Carcamo MD [address] [place] [address] PCP - General Internal Medicine 04/10/13 Metropolitan Editor Relationship Specialty Start Date End Date Faustina Carcamo MD [address] [place] [address] PCP - General Internal Medicine 04/10/13 Metropolitan Editor Relationship Specialty Start Date End Date Faustina Carcamo MD [address] [place] [address] PCP - General Internal Medicine 04/10/13 Metropolitan Editor Relationship Specialty Start Date End Date Mario Vazquez MBBS [address] [place] [address], [place] [phone] PCP - General Internal Medicine 04/16/22 Metropolitan Editor Relationship Specialty Start Date End Date No, Physician [facility] PCP - General 05/02/22 Metropolitan Editor Relationship Specialty Start Date End Date Mario Vazquez MBBS [address] [place] [address], [place] [phone] PCP - General Internal Medicine 04/16/22 Metropolitan Editor Relationship Specialty Start Date End Date Mario Vazquez MBBS [address] [place] [address], [place] [phone] PCP - General Internal Medicine 04/16/22 Metropolitan Editor Relationship Specialty Start Date End Date Mario Vazquez MBBS [address] [place] [address], [place] [phone] PCP - General Internal Medicine 04/16/22 Metropolitan Editor Relationship Specialty Start Date End Date Faustina Carcamo MD [address] [place] [address] PCP - General Internal Medicine 04/10/13 Metropolitan Editor Relationship Specialty Start Date End Date Faustina Carcamo MD [address] [place] [address] PCP - General Internal Medicine 04/10/13 Metropolitan Editor Relationship Specialty Start Date End Date Mario Vazquez MBBS [address] [place] [address], [place] [phone] PCP - General Internal Medicine 04/16/22 Metropolitan Editor Relationship Specialty Start Date End Date Faustina Carcamo MD [address] [place] [address] PCP - General Internal Medicine 04/10/13 Metropolitan Editor Relationship Specialty Start Date End Date Faustina Carcamo MD [address] [place] [address] PCP - General Internal Medicine 04/10/13 Metropolitan Editor Relationship Specialty Start Date End Date Faustina Carcamo MD [address] [place] [address] PCP - General Internal Medicine 04/10/13 Metropolitan Editor Relationship Specialty Start Date End Date Faustina Carcamo MD [address] [place] [address] PCP - General Internal Medicine 04/10/13 Metropolitan Editor Relationship Specialty Start Date End Date Faustina Carcamo MD [address] [place] [address] PCP - General Internal Medicine 04/10/13 Metropolitan Editor Relationship Specialty Start Date End Date Faustina Carcamo MD [address] [place] [address] PCP - General Internal Medicine 04/10/13 Metropolitan Editor Relationship Specialty Start Date End Date Faustina Carcamo MD [address] [place] [address] PCP - General Internal Medicine 04/10/13 Metropolitan Editor Relationship Specialty Start Date End Date Faustina Carcamo MD [address] [place] [address] PCP - General Internal Medicine 04/10/13 Metropolitan Editor Relationship Specialty Start Date End Date Faustina Carcamo MD [address] [place] [address] PCP - General Internal Medicine 04/10/13 Metropolitan Editor Relationship Specialty Start Date End Date Faustina Carcamo MD [address] [place] [address] PCP - General Internal Medicine 04/10/13 Metropolitan Editor Relationship Specialty Start Date End Date Faustina Carcamo MD [address] [place] [address] PCP - General Internal Medicine 04/10/13 Metropolitan Editor Relationship Specialty Start Date End Date Faustina Carcamo MD [address] [place] [address] PCP - General Internal Medicine 04/10/13 Metropolitan Editor Relationship Specialty Start Date End Date Faustina Carcamo MD [address] [place] [address] PCP - General Internal Medicine 04/10/13 Metropolitan Editor Relationship Specialty Start Date End Date Faustina Carcamo MD [address] [place] [address] PCP - General Internal Medicine 04/10/13 Metropolitan Editor Relationship Specialty Start Date End Date Faustina Carcamo MD [address] [place] [address] PCP - General Internal Medicine 04/10/13 Metropolitan Editor Relationship Specialty Start Date End Date Faustina Carcamo MD [address] [place] [address] PCP - General Internal Medicine 04/10/13 Metropolitan Editor Relationship Specialty Start Date End Date Faustina Carcamo MD [address] [place] [address] PCP - General Internal Medicine 04/10/13 Metropolitan Editor Relationship Specialty Start Date End Date Faustina Carcamo MD [address] [place] [address] PCP - General Internal Medicine 04/10/13 Metropolitan Editor Relationship Specialty Start Date End Date Faustina Carcamo MD [address] [place] [address] PCP - General Internal Medicine 04/10/13 Metropolitan Editor Relationship Specialty Start Date End Date Faustina Carcamo MD [address] [place] [address] PCP - General Internal Medicine 04/10/13 Metropolitan Editor Relationship Specialty Start Date End Date Faustina Carcamo MD [address] [place] [address] PCP - General Internal Medicine 04/10/13 Metropolitan Editor Relationship Specialty Start Date End Date Faustina Carcamo MD [address] [place] [address] PCP - General Internal Medicine 04/10/13 Metropolitan Editor Relationship Specialty Start Date End Date Faustina Carcamo MD [address] [place] [address] PCP - General Internal Medicine 04/10/13 Metropolitan Editor Relationship Specialty Start Date End Date Faustina Carcamo MD [address] [place] [address] PCP - General Internal Medicine 04/10/13 Metropolitan Editor Relationship Specialty Start Date End Date Faustina Carcamo MD [address] [place] [address] PCP - General Internal Medicine 04/10/13 Metropolitan Editor Relationship Specialty Start Date End Date Faustina Carcamo MD [address] [place] [address] PCP - General Internal Medicine 04/10/13 Metropolitan Editor Relationship Specialty Start Date End Date Faustina Carcamo MD [address] [place] [address] PCP - General Internal Medicine 04/10/13 Metropolitan Editor Relationship Specialty Start Date End Date Faustina Carcamo MD [address] [place] [address] PCP - General Internal Medicine 04/10/13 Metropolitan Editor Relationship Specialty Start Date End Date Faustina Carcamo MD [address] [place] [address] PCP - General Internal Medicine 04/10/13 Metropolitan Editor Relationship Specialty Start Date End Date Faustina Carcamo MD [address] [place] [address] PCP - General Internal Medicine 04/10/13 Metropolitan Editor Relationship Specialty Start Date End Date Faustina Carcamo MD [address] [place] [address] PCP - General Internal Medicine 04/10/13 Metropolitan Editor Relationship Specialty Start Date End Date Faustina Carcamo MD [address] [place] [address] PCP - General Internal Medicine 04/10/13 Metropolitan Editor Relationship Specialty Start Date End Date Faustina Carcamo MD [address] [place] [address] PCP - General Internal Medicine 04/10/13 FOR RECORDS PERTAINING TO PATIENTS WHO ARE OR HAVE BEEN ENROLLED IN A CHEMICAL DEPENDENCY/SUBSTANCEABUSE PROGRAM, SOME INFORMATION MAY BE OMITTED. This clinical summary was aggregated from multiple sources. Caution should be exercised in using it in the provision of clinical care. This summary normalizes information from multiple sources, and as a consequence, information in this document may materially change the coding, format and clinical context of patient data. In addition, data may be omitted in some cases. CLINICAL DECISIONS SHOULD BE BASED ON THE PRIMARY CLINICAL RECORDS. [facility]. provides no warranty or guarantee of the accuracy or completeness of information in this document.
--- NOTE | 2024-06-07 02:23 | RAD_ITS ---
STUDY: X-RAY CHEST REASON FOR EXAM: Female, 33 years old patient with chest pain. TECHNIQUE: Single AP portable view of the chest. COMPARISON: August 06, 2021. FINDINGS: Cardiac monitoring leads are present. The lungs are clear and expanded. There is no demonstrated pleural abnormality. Normal size heart. Normal mediastinum and lo. Normal visualized pulmonary arteries. Normal visualized aortic arch and descending thoracic aorta. Normal visualized thoracic spine. Normal visualized ribs, clavicles, and shoulders. There is no demonstrated abnormality of the visualized soft tissue structures of the upper abdomen. RAD/Chest 1 View (Portable) IMPRESSION: No radiographic evidence of acute cardiopulmonary disease. Electronically Signed: Denisa Hugo MD at 4:20 EDT ,
[2024-06-07 02:24] LABS: Absolute Lymphocyte Count 2.03 X10^3/uL (0.83-4.51); Absolute Neutrophil Count 6.3 X10^3/uL (2.0-7.7); Basophil# 0.04 X10^3/uL; Basophil% 0.4 % (0-1); Eosinophil# 0.03 X10^3/uL; Eosinophils% 0.3 % (0-5); Hematocrit 37.7 % (37-47); Hemoglobin 12.8 g/dL (12.0-15.0); Lymphocyte # 2.03 X10^3/ul (0.83-4.51); Mean Corpuscular Hgb 31.2 pg (27.0-32.0); Mean Platelet Vol. 9.4 fl (6.2-12.0); Monocyte# 0.79 X10^3/uL; Monocyte% 8.5 % (0-10); NRBC Flagged by Analyzer 0 % (0-5); Neutrophil % 68.3 % (47-70); Platelet Count 411 K/mm3 (150-450); RBC Distribution Width CV 12.2 % (11.6-14.6); RBC Distribution Width SD 40.7 fl (35.1-43.9); White Blood Count 9.2 K/mm3 (4.4-11.0)
[2024-06-07 02:28] LABS: Anion Gap 6 (5-15); BUN 7 mg/dL (7-18); BUN/Creat Ratio 11.5 RATIO (10-20); Calcium,Total 9.2 mg/dL (8.5-10.1); Chloride 111 mmol/L (98-107); Creatinine, Serum 0.61 mg/dL (0.55-1.02); EST Glomerular Filtration Rate 122 mL/min (>60); Est Glom Filt Rate - Afr Amer 147 mL/min (>60); Estimated Creatinine Clearance 163.15 ml/min; Glucose 111 mg/dL (74-106); Potassium 4.4 mmol/L (3.5-5.1); Sodium Level 139 mmol/L (136-145); Troponin-I HS (w/2H Reflex) 4 pg/mL (3.0-54.0)
[2024-06-07 02:46] VITALS: BP 166/98; PULSE 92; RESP 18; O2SAT 98
[2024-06-07 03:00] VITALS: BP 159/100; PULSE 84; RESP 17; O2SAT 98
[2024-06-07 04:00] VITALS: BP 133/93; PULSE 78; RESP 13; O2SAT 94
[2024-06-07 04:02] LABS: Reflex Troponin-HS? (from REC) Y
[2024-06-07 04:47] LABS: Troponin-I HS 4 pg/mL (3.0-54.0)
[2024-06-07 04:52] VITALS: BP 149/95; PULSE 91; RESP 15; TEMP 36.6; O2SAT 97
== END 2024-06-07 04:58 | disposition home or self-care (01) ==
PROVIDERS: Emergency Provider Emergency Medicine; PCP Internal Medicine; Visit Provider Emergency Medicine
DX: R07.9 Chest pain, unspecified (principal); M08.20 Juvenile rheumatoid arthritis with systemic onset, unspecified site; R50.9 Fever, unspecified; R00.0 Tachycardia, unspecified; G90.A Postural orthostatic tachycardia syndrome [POTS]
CPT/HCPCS: 71045; 80048; 84484; 85025; 85379; 93005; 96360; 96361; 99284; J7030; A4216

== ENCOUNTER 2024-07-20 12:47 | Emergency (ER) | payer MEDICAID, SELFPAY ==
[2024-07-20 12:47] VITALS: BP 181/118; PULSE 106; RESP 16; TEMP 36.8; O2SAT 98; BMI 54.1
--- NOTE | 2024-07-20 13:12 | EKG12_ITS ---
Test Reason : CP Blood Pressure : */* mmHG Vent. Rate : 99 BPM Atrial Rate : 99 BPM P-R Int : 144 ms QRS Dur : 70 ms QT Int : 322 ms P-R-T Axes : 51 38 24 degrees QTcB Int : 413 ms Normal sinus rhythm Nonspecific T wave abnormality Abnormal ECG Confirmed by Jam Jackson ([id number]), news editor BLAKE MEJÍA ([id number]) on 07/23/2024 6:54:04 AM Referred By: Confirmed By: Jam Jackson
--- NOTE | 2024-07-20 13:30 | RAD_ITS ---
STUDY: X-RAY CHEST REASON FOR EXAM: Female, 33 years old. Chest pain TECHNIQUE: Single AP portable view of the chest. COMPARISON: Comparison is made with prior study June 07, 2024. FINDINGS: The lungs are clear and expanded. There is no demonstrated pleural abnormality. Normal size heart. Normal mediastinum and lo. Normal visualized pulmonary arteries. Normal visualized aortic arch and descending thoracic aorta. Normal visualized thoracic spine. Normal visualized ribs, clavicles, and shoulders. There is no demonstrated abnormality of the visualized soft tissue structures of the upper abdomen. RAD/Chest 1 View (Portable) IMPRESSION: Normal x-ray examination of the chest. Electronically Signed: Milo Mayer MD at 13:55 EST ,
[2024-07-20 13:34] LABS: Absolute Lymphocyte Count 2.16 X10^3/uL (0.83-4.51); Basophil# 0.03 X10^3/uL; Basophil% 0.5 % (0-1); Eosinophil# 0.03 X10^3/uL; Eosinophils% 0.5 % (0-5); Hematocrit 39.3 % (37-47); Hemoglobin 13.1 g/dL (12.0-15.0); Lymphocyte # 2.16 X10^3/ul (0.83-4.51); Lymphocyte % 37.6 % (19-41); Mean Corp Hgb Conc 33.3 g/dL (32-36); Mean Corpuscular Hgb 30.8 pg (27.0-32.0); Mean Corpuscular Volume 92.5 fL (81-99); Monocyte# 0.55 X10^3/uL; Monocyte% 9.6 % (0-10); NRBC Flagged by Analyzer 0 % (0-5); Neutrophil # 2.96 X10^3/uL (2.7-7.7); Neutrophil % 51.6 % (47-70); Platelet Count 411 K/mm3 (150-450); RBC Distribution Width CV 12.4 % (11.6-14.6); Red Blood Count 4.25 M/mm3 (4.2-5.4); White Blood Count 5.7 K/mm3 (4.4-11.0)
[2024-07-20 13:37] VITALS: O2SAT 97
[2024-07-20 13:47] VITALS: BP 141/110; PULSE 96; RESP 13; O2SAT 98
[2024-07-20 13:52] LABS: Anion Gap 6 (5-15); BUN 9 mg/dL (7-18); BUN/Creat Ratio 14.3 RATIO (10-20); Calcium,Total 8.9 mg/dL (8.5-10.1); Chloride 109 mmol/L (98-107); Creatinine, Serum 0.63 mg/dL (0.55-1.02); EST Glomerular Filtration Rate 117 mL/min (>60); Est Glom Filt Rate - Afr Amer 141 mL/min (>60); Estimated Creatinine Clearance 158.53 ml/min; Glucose 116 mg/dL (74-106); Sodium Level 139 mmol/L (136-145); Troponin-I HS (w/2H Reflex) 4 pg/mL (3.0-54.0)
[2024-07-20 14:00] VITALS: BP 141/110; PULSE 96; RESP 13; O2SAT 98
--- NOTE | 2024-07-20 14:22 | EX.ED.DYSGE1 ---
HPI <KILO Quijano - Last Filed: 07/20/24 15:28> History of Present Illness Chief Complaint: Chest Pain Narrative Narrative: 33-year-old female with PMH of POTS, stills disease was at the dentist and had epinephrine injected in preparation for a root canal and states 2 minutes after injection she developed sharp chest pain in the left midsternal area rating towards her shoulder with nausea. The sharp chest pain lasted about 10 minutes it is now a dull ache. The dentist did not continue with the procedure. She has no cardiac history. She does not smoke. No history of DVT/PE. PFSH <KILO Quijano - Last Filed: 07/20/24 15:28> [facility] Medical History Morbid (severe) obesity due to excess calories Panic disorder with agoraphobia and moderate panic attacks DARLIN (generalized anxiety disorder) Periodic fever syndrome POTS (postural orthostatic tachycardia syndrome) Home Medications ?Medication ?Instructions ?Recorded ?Last Taken ?Type atenolol 25 mg tablet (Tenormin) 25 mg DAILY 01/18/16 Unknown History anakinra 100 mg/0.67 mL 100 mg SQ DAILY 03/02/19 Unknown History subcutaneous syringe colchicine 0.6 mg capsule 0.6 mg PO DAILY 03/02/19 Unknown History fluoxetine 10 mg capsule 20 mg PO DAILY 03/02/19 Unknown History fluvoxamine 100 mg tablet 200 mg PO DAILY 03/02/19 Unknown History hydroxychloroquine 200 mg tablet 400 mg PO DAILY 03/02/19 Unknown History hydroxyzine pamoate 50 mg capsule 25 - 50 mg PO TID PRN 03/02/19 Unknown History Anxiety/Restlessness/Sleep medroxyprogesterone 150 mg/mL 150 mg IM .[id number] 03/02/19 Unknown History intramuscular syringe meloxicam 15 mg tablet 15 mg PO DAILY 03/02/19 Unknown History propranolol 10 mg tablet 10 mg PO DAILY PRN Dizziness 03/02/19 Unknown History canakinumab (PF) 150 mg/mL subcut 06/07/24 Unknown History subcutaneous solution (Ilaris (PF)) Allergy/AdvReac Type Severity Reaction Status Date / Time latex Allergy Hives Verified 07/20/24 12:49 topiramate (From Topamax) AdvReac Other Verified 07/20/24 12:49 Family History Other Lupus Social History Smoking Status: Never smoker ROS <KILO Quijano - Last Filed: 07/20/24 15:28> ROS ED ROS Narrative Constitutional: Negative for fever, chills, malaise. CVS: Positive for chest pain. Negative for palpitations, syncope. Respiratory: Negative for shortness of breath, cough. GI: Negative for abdominal pain, vomiting. EXAM <KILO Quijano - Last Filed: 07/20/24 15:28> Physical Exam Narrative Exam Narrative: CONST: Patient sitting in no acute distress. EYES: Normal inspection. NECK: Normal inspection. RESP: No respiratory distress, CTAB. CVS: Regular rate and rhythm, no murmur, no gallop. ABD: Soft and nontender, no guarding or rebound, nondistended. SKIN: Color normal, no rash, warm, dry, intact. EXTREMITIES: Normal appearance, no pedal edema. NEURO: Alert and answering questions appropriately. PSYCH: Normal affect. Const Vital Signs: 07/20/24 12:47 07/20/24 13:31 07/20/24 13:37 Temperature 98.2 F Temperature Source Oral Pulse Rate 106 H Respiratory Rate 16 Respiratory Effort Normal Blood Pressure 181/118 H Blood Pressure Mean 139 Pulse Ox 98 97 Oxygen Delivery Method Room Air Room Air 07/20/24 13:47 07/20/24 14:00 07/20/24 15:36 Temperature 98.2 F Temperature Source Pulse Rate 96 96 87 Respiratory Rate 13 13 16 Respiratory Effort Blood Pressure 141/110 H 141/110 H 140/99 H Blood Pressure Mean 120 120 112 Pulse Ox 98 98 99 Oxygen Delivery Method Room Air Room Air <Dr. Nicholas Santiago DO - Last Filed: 07/20/24 16:02> Physical Exam Const Vital Signs: 07/20/24 12:47 07/20/24 13:31 07/20/24 13:37 Temperature 98.2 F Temperature Source Oral Pulse Rate 106 H Respiratory Rate 16 Respiratory Effort Normal Blood Pressure 181/118 H Blood Pressure Mean 139 Pulse Ox 98 97 Oxygen Delivery Method Room Air Room Air 07/20/24 13:47 07/20/24 14:00 07/20/24 15:36 Temperature 98.2 F Temperature Source Pulse Rate 96 96 87 Respiratory Rate 13 13 16 Respiratory Effort Blood Pressure 141/110 H 141/110 H 140/99 H Blood Pressure Mean 120 120 112 Pulse Ox 98 98 99 Oxygen Delivery Method Room Air Room Air [facility] <KILO Quijano - Last Filed: 07/20/24 15:28> [facility] Narrative Medical decision making narrative: Patient got an oral epinephrine injection at the dentist and developed chest tightness and palpitations which have now improved. Initially she was hypertensive and tachycardic as well as somewhat anxious when she arrived and after resting has gone down to the normal range. Her exam is unremarkable. Her EKG is nonischemic, CBC and BMP unremarkable, troponin is 4. Patient reports she had a reaction to some type of epinephrine/lidocaine agent years ago at the dentist and I suspect that is likely today. I do not feel she needs further emergent workup. She is feeling improved. She was discharged in stable condition. Lab Data Attestation: I reviewed the patient's lab results. Labs: Laboratory Results - last 24 hr 07/20/24 13:20 WBC 5.7 RBC 4.25 Hgb 13.1 Hct 39.3 MCV 92.5 MCH 30.8 MCHC 33.3 RDW Std Deviation 42.0 RDW Coeff of Derrell 12.4 Plt Count 411 MPV 9.0 Immature Gran % (Auto) 0.200 Neut % (Auto) 51.6 Lymph % (Auto) 37.6 Pender % (Auto) 9.6 Eos % (Auto) 0.5 Baso % (Auto) 0.5 Absolute Neuts (auto) 3.0 Absolute Lymphs (auto) 2.16 Nucleated RBC % 0 Sodium 139 Potassium 4.0 Chloride 109 H Carbon Dioxide 25.0 Anion Gap 6 BUN 9 Creatinine 0.63 Estim Creat Clear Calc 158.53 Est GFR (MDRD) Af Amer 141 Est GFR (MDRD) Non-Af 117 BUN/Creatinine Ratio 14.3 Glucose 116 H Calcium 8.9 Troponin I High Sens 4 Radiography Diagnostic Testing: Clinical Impression(s) from Imaging Studies Chest X-Ray 07/20/24 13:30 IMPRESSION: Normal x-ray examination of the chest. Electronically Signed: Milo Mayer MD at 13:55 EST , ED attending interpretation of 1-view chest x-ray shows normal heart size, no acute infiltrate, edema, or effusion. EKG Initial EKG: Attestation: I personally reviewed and interpreted this EKG as follows: Interpretation: Sinus Rhythm and No Acute Injury Pattern Comments: Normal sinus rhythm at 99 bpm Nonspecific T wave changes, no STEMI <Dr. Nicholas Santiago, DO - Last Filed: 07/20/24 16:02> [facility] Narrative Medical decision making narrative: Patient got an oral epinephrine injection at the dentist and developed chest tightness and palpitations which have now improved. Initially she was hypertensive and tachycardic as well as somewhat anxious when she arrived and after resting has gone down to the normal range. Her exam is unremarkable. Her EKG is nonischemic, CBC and BMP unremarkable, troponin is 4. Patient reports she had a reaction to some type of epinephrine/lidocaine agent years ago at the dentist and I suspect that is likely today. I do not feel she needs further emergent workup. She is feeling improved. She was discharged in stable condition. I, Dr Santiago, have reviewed the above progress note and course of action in the ER; agree with the above. I have personally seen and evaluated this patient, gone over history and physical, and discussed disposition and treatment plan with the patient. Lab Data Labs: Laboratory Results - last 24 hr 07/20/24 13:20 WBC 5.7 RBC 4.25 Hgb 13.1 Hct 39.3 MCV 92.5 MCH 30.8 MCHC 33.3 RDW Std Deviation 42.0 RDW Coeff of Edrrell 12.4 Plt Count 411 MPV 9.0 Immature Gran % (Auto) 0.200 Neut % (Auto) 51.6 Lymph % (Auto) 37.6 Pender % (Auto) 9.6 Eos % (Auto) 0.5 Baso % (Auto) 0.5 Absolute Neuts (auto) 3.0 Absolute Lymphs (auto) 2.16 Nucleated RBC % 0 Sodium 139 Potassium 4.0 Chloride 109 H Carbon Dioxide 25.0 Anion Gap 6 BUN 9 Creatinine 0.63 Estim Creat Clear Calc 158.53 Est GFR (MDRD) Af Amer 141 Est GFR (MDRD) Non-Af 117 BUN/Creatinine Ratio 14.3 Glucose 116 H Calcium 8.9 Troponin I High Sens 4 Radiography Diagnostic Testing: Clinical Impression(s) from Imaging Studies Chest X-Ray 07/20/24 13:30 IMPRESSION: Normal x-ray examination of the chest. Electronically Signed: Milo Mayer MD at 13:55 EST , Discharge Plan Triage Chief Complaint: Chest Pain ED Midlevel Provider: Nadine Eng ED Provider: Nicholas Santiago Dx/Rx/DC Orders Clinical Impression: Chest pain Instructions: ED Chest Pain, Noncardiac Prescriptions: No Action atenolol [Tenormin] 25 MG tablet 25 mg DAILY fluvoxamine 100 MG tablet 200 mg PO DAILY fluoxetine 10 MG capsule 20 mg PO DAILY meloxicam 15 MG tablet 15 mg PO DAILY hydroxyzine pamoate 50 MG capsule 25 - 50 mg PO TID PRN (Reason: Anxiety/Restlessness/Sleep) propranolol 10 MG tablet 10 mg PO DAILY PRN (Reason: Dizziness) hydroxychloroquine 200 MG tablet 400 mg PO DAILY anakinra 100 MG/0.67 ML syringe 100 mg SQ DAILY medroxyprogesterone 150 MG/ML syringe 150 mg IM .[id number] colchicine 0.6 MG capsule 0.6 mg PO DAILY Ilaris (PF) 150 mg/mL solution subcut Primary Care Provider: Katie Fernández Referrals: Katie Fernández MD [Primary Care Provider] - Activity Restrictions/Additional Instructions: Your symptoms may have been secondary to the epinephrine administration. Your screening labs are normal. Please follow-up with your primary care doctor. Print Language: Egyptian Disposition Disposition: Home, Self Care Discharge Date/Time: 07/20/24 15:37
[2024-07-20 15:29] LABS: Reflex Troponin-HS? (from REC) Y
[2024-07-20 15:36] VITALS: BP 140/99; PULSE 87; RESP 16; TEMP 36.8; O2SAT 99
== END 2024-07-20 15:37 | disposition home or self-care (01) ==
PROVIDERS: Emergency Provider Emergency Medicine; PCP Internal Medicine; Visit Provider Emergency Medicine
DX: R07.9 Chest pain, unspecified (principal); M08.20 Juvenile rheumatoid arthritis with systemic onset, unspecified site; G90.A Postural orthostatic tachycardia syndrome [POTS]
CPT/HCPCS: 71045; 80048; 84484; 85025; 93005; 99284; A4216

== ENCOUNTER 2024-11-09 00:20 | Emergency (ER) | payer MEDICAID, SELFPAY ==
[2024-11-09 00:21] VITALS: PULSE 83; RESP 16; TEMP 36.9; O2SAT 99; BMI 53.8
--- NOTE | 2024-11-09 01:11 | EKG12_ITS ---
Test Reason : GEN. ILLNESS Blood Pressure : */* mmHG Vent. Rate : 59 BPM Atrial Rate : 59 BPM P-R Int : 156 ms QRS Dur : 74 ms QT Int : 392 ms P-R-T Axes : 29 42 18 degrees QTcB Int : 388 ms Sinus bradycardia Otherwise normal ECG Confirmed by JOVITA PEÑA, SOPHIE ([id number]), editorial intern BLAKE MEJÍA ([id number]) on 11/09/2024 8:26:25 AM Referred By: MEGAN Confirmed By: SOPHIE HUSSEIN MD
--- NOTE | 2024-11-09 01:12 | RAD_ITS ---
PROCEDURE: CHEST PA AND LATERAL N/A REASON FOR EXAM: CHEST PAIN TECHNIQUE: Frontal and lateral views of the chest. PA and lateral COMPARISON: 07/20/2024 FINDINGS: The lungs appear clear. Pulmonary vascularity appears within limits. No pleural effusion. The cardiac and mediastinal contours appear within limits. The visualized osseous structures appear within limits. RAD/Chest PA and Lateral IMPRESSION: No evidence of acute disease. Reading Location: [id number]
[2024-11-09 01:28] VITALS: O2SAT 99
[2024-11-09] MEDS: 0.9% Normal Saline (1000mL) 1,000 ML 999 ML IV (01:41)
[2024-11-09 01:44] LABS: Absolute Lymphocyte Count 3.71 X10^3/uL (0.83-4.51); Absolute Neutrophil Count 3.1 X10^3/uL (2.0-7.7); Basophil# 0.05 X10^3/uL; Basophil% 0.6 % (0-1); Eosinophil# 0.17 X10^3/uL; Eosinophils% 2.2 % (0-5); Hematocrit 38.4 % (37-47); Hemoglobin 13.3 g/dL (12.0-15.0); Lymphocyte # 3.71 X10^3/ul (0.83-4.51); Mean Corp Hgb Conc 34.6 g/dL (32-36); Mean Corpuscular Hgb 30.6 pg (27.0-32.0); Mean Corpuscular Volume 88.5 fL (81-99); Mean Platelet Vol. 9.5 fl (6.2-12.0); Monocyte# 0.67 X10^3/uL; Monocyte% 8.7 % (0-10); NRBC Flagged by Analyzer 0 % (0-5); Neutrophil # 3.12 X10^3/uL (2.7-7.7); Neutrophil % 40.4 % (47-70); Platelet Count 443 K/mm3 (150-450); RBC Distribution Width CV 12.1 % (11.6-14.6); RBC Distribution Width SD 38.7 fl (35.1-43.9); Red Blood Count 4.34 M/mm3 (4.2-5.4); White Blood Count 7.7 K/mm3 (4.4-11.0)
[2024-11-09 02:02] LABS: Anion Gap 18 (5-15); BUN 5 mg/dL (4-19); BUN/Creat Ratio 8.6 RATIO (10-20); Calcium,Total 9.5 mg/dL (7.6-11.0); Carbon Dioxide 16.3 mmol/L (21.0-32.0); Chloride 107 mmol/L (98-108); Creatinine, Serum 0.63 mg/dL (0.70-1.20); EST Glomerular Filtration Rate 121 (>60); Estimated Creatinine Clearance 156.44 ml/min (50-250); Glucose 115 mg/dL (70-99); Sodium Level 141 mmol/L (133-145); Troponin T High Sensitivity < 6 ng/L (<=14)
[2024-11-09 02:18] VITALS: BP 129/71
[2024-11-09 03:30] VITALS: O2SAT 99
[2024-11-09 04:06] VITALS: BP 147/86; PULSE 58; RESP 17; O2SAT 97
[2024-11-09 04:47] LABS: Troponin T High Sens 2 HR < 6 ng/L (<=14)
--- NOTE | 2024-11-09 04:55 | EX.ED.DYSGE1 ---
HPI History of Present Illness Chief Complaint: General Illness Narrative Narrative: Patient is a 34-year-old female with a past medical history of BMI 53.8, generalized anxiety disorder, POTS, stills disease, panic attack who presents to the emergency department with a chief complaint of diarrhea originally earlier today and not feeling well. She states that as the day progressed she noted that she felt lightheaded despite the triage note saying dizzy she states that she felt lightheaded after clarification. She states that she then checked her blood pressure noted as high therefore she took atenolol and few hours later checked her blood pressure again as well as her heart rate and noted that her heart rate was low in the 40s but her blood pressure was still elevated and called the family doctor line. They advised her to come here to be evaluated given that she is not feeling well. Patient denies any recent sick contacts. Patient denies any recent travel denies any history of blood clots. [facility] Medical History Morbid (severe) obesity due to excess calories Panic disorder with agoraphobia and moderate panic attacks DARLIN (generalized anxiety disorder) Periodic fever syndrome POTS (postural orthostatic tachycardia syndrome) Home Medications ?Medication ?Instructions ?Recorded ?Last Taken ?Type atenolol 25 mg tablet (Tenormin) 25 mg DAILY 01/18/16 Unknown History anakinra 100 mg/0.67 mL 100 mg SQ DAILY 03/02/19 Unknown History subcutaneous syringe colchicine 0.6 mg capsule 0.6 mg PO DAILY 03/02/19 Unknown History fluoxetine 10 mg capsule 20 mg PO DAILY 03/02/19 Unknown History fluvoxamine 100 mg tablet 200 mg PO DAILY 03/02/19 Unknown History hydroxychloroquine 200 mg tablet 400 mg PO DAILY 03/02/19 Unknown History hydroxyzine pamoate 50 mg capsule 25 - 50 mg PO TID PRN 03/02/19 Unknown History Anxiety/Restlessness/Sleep medroxyprogesterone 150 mg/mL 150 mg IM .[id number] 03/02/19 Unknown History intramuscular syringe meloxicam 15 mg tablet 15 mg PO DAILY 03/02/19 Unknown History propranolol 10 mg tablet 10 mg PO DAILY PRN Dizziness 03/02/19 Unknown History canakinumab (PF) 150 mg/mL subcut 06/07/24 Unknown History subcutaneous solution (Ilaris (PF)) ondansetron 4 mg disintegrating 4 mg PO Q6H PRN nausea and 11/09/24 Unknown Rx tablet vomiting #20 tabs Allergy/AdvReac Type Severity Reaction Status Date / Time latex Allergy Hives Verified 07/20/24 12:49 topiramate (From Topamax) AdvReac Other Verified 07/20/24 12:49 Family History Other Lupus Social History Smoking Status: Never smoker ROS ROS ED ROS Narrative Constitutional: Complains lightheadedness as noted above denies fevers, chills, headaches Eyes: Denies changes double vision blurry vision Cardiovascular: Denies chest pain or palpitations Respiratory: Denies shortness of breath Abdomen: Denies abdominal pain : Denies urinary symptoms Neurological: Denies numbness, weakness, tingling Musculoskeletal: Denies back pain Skin: Denies rashes or lesions EXAM Physical Exam Narrative Exam Narrative: General: Patient lying in bed rest currently did not appear to be in acute distress Head: Atraumatic, normocephalic Eyes: PERRL bilateral, EOMI bilateral, no conjunctival injection or Neck: Soft, supple, trachea midline Cardiovascular: Patient was bradycardic with a regular rhythm no murmurs gallops rubs noted Respiratory: Clear to auscultation bilaterally Abdomen: Soft, nondistended, nontender to palpation Extremities: +5/5 strength noted the bilateral upper and lower extremity, radial pulse +2/4 in the bilateral extremities, no pedal edema exam Neurological: Patient following commands knew that she was at [facility] years 2024 Skin: Warm, dry, intact no rashes or lesions noted Const Vital Signs: 11/09/24 00:21 11/09/24 00:21 11/09/24 01:28 Temperature 98.5 F Temperature Source Oral Pulse Rate 83 Respiratory Rate 16 Respiratory Effort Normal Respiratory Pattern Normal Blood Pressure Blood Pressure Mean Pulse Ox 99 99 Oxygen Delivery Method Room Air 11/09/24 02:18 11/09/24 04:06 Temperature Temperature Source Pulse Rate 58 L Respiratory Rate 17 Respiratory Effort Respiratory Pattern Blood Pressure 129/71 H 147/86 H Blood Pressure Mean 90 106 Pulse Ox 97 Oxygen Delivery Method Room Air MDM MDM MDM Narrative Medical decision making narrative: Patient is a 34-year-old female who presented to the emergency department with a chief complaint of lightheadedness, bradycardia, diarrhea and not feeling well overall. On the differential diagnose includes but limited to symptomatic bradycardia, bradycardia secondary to her atenolol that she took, viral gastroenteritis. Once workup is obtained reviewed she will be reevaluated. Patient's revised Clay score is low risk. Patient's CBC reviewed showed no evidence leukocytosis white blood count normal at 7.7, hemoglobin 13.3, plate count normal at 443. Patient sodium normal 141, potassium normal at 4, creatinine was 0.63 according to lab her anion gap was 18 she is not diabetic her glucose was 115 I have low suspicion that this is accurate as there has been multiple areas in regards to this with the lab recently. Patient's troponin was less than 6 with a delta troponin of less than 6. Patient's EKG reviewed showed sinus bradycardia with a rate of 59 bpm. Patient's chest x-ray was reviewed by myself and radiology which showed no acute cardiopulmonary processes. After a liter of IV fluids and the workup obtained and reviewed she was reevaluated. She feels much improved and would like to go home at this point time. Patient ambulated well here in the emergency department without any symptoms. She was advised to keep a close eye on her blood pressure keep a blood pressure log take this to her primary care physician. She was advised to return with worsening symptoms or concerns. She is agreeable this plan all course concerns answered she was discharged home in stable condition. Lab Data Labs: Laboratory Results - last 24 hr 11/09/24 11/09/24 01:22 04:19 WBC 7.7 RBC 4.34 Hgb 13.3 Hct 38.4 MCV 88.5 MCH 30.6 MCHC 34.6 RDW Std Deviation 38.7 RDW Coeff of Derrell 12.1 Plt Count 443 MPV 9.5 Immature Gran % (Auto) 0.100 Neut % (Auto) 40.4 L Lymph % (Auto) 48.0 H [place] % (Auto) 8.7 Eos % (Auto) 2.2 Baso % (Auto) 0.6 Absolute Neuts (auto) 3.1 Absolute Lymphs (auto) 3.71 Nucleated RBC % 0 Sodium 141 Potassium 4.0 Chloride 107 Carbon Dioxide 16.3 L Anion Gap 18 H BUN 5 Creatinine 0.63 L Estim Creat Clear Calc 156.44 Est GFR (MDRD) Non-Af 121 BUN/Creatinine Ratio 8.6 L Glucose 115 H Calcium 9.5 Troponin T High Sens < 6 Troponin T Hi Sens 2 Hr < 6 Radiography Diagnostic Testing: Clinical Impression(s) from Imaging Studies Chest X-Ray 11/09/24 01:12 IMPRESSION: No evidence of acute disease. Reading Location: [facility] Discharge Plan Triage Chief Complaint: General Illness ED Provider: Lisandro Rachel Dx/Rx/DC Orders Clinical Impression: Lightheadedness, Bradycardia, Diarrhea Prescriptions: New ondansetron 4 mg tablet,disintegrating 4 mg PO Q6H PRN (Reason: nausea and vomiting) Qty: 20 0RF No Action atenolol [Tenormin] 25 MG tablet 25 mg DAILY fluvoxamine 100 MG tablet 200 mg PO DAILY fluoxetine 10 MG capsule 20 mg PO DAILY meloxicam 15 MG tablet 15 mg PO DAILY hydroxyzine pamoate 50 MG capsule 25 - 50 mg PO TID PRN (Reason: Anxiety/Restlessness/Sleep) propranolol 10 MG tablet 10 mg PO DAILY PRN (Reason: Dizziness) hydroxychloroquine 200 MG tablet 400 mg PO DAILY anakinra 100 MG/0.67 ML syringe 100 mg SQ DAILY medroxyprogesterone 150 MG/ML syringe 150 mg IM .[id number] colchicine 0.6 MG capsule 0.6 mg PO DAILY Ilaris (PF) 150 mg/mL solution subcut Primary Care Provider: Katie Fernández Referrals: Katie Fernández MD [Primary Care Provider] - Activity Restrictions/Additional Instructions: Follow-up your doctor in outpatient setting. Keep a close eye and your blood pressure. Ensure you are hydrating orally with fluids. Use Zofran as needed for nausea that was sent to pharmacy Print Language: [place] Disposition Disposition: Home, Self Care
[2024-11-09 04:59] VITALS: BP 147/86; PULSE 58; RESP 18; TEMP 36.7; O2SAT 99
== END 2024-11-09 05:03 | disposition home or self-care (01) ==
PROVIDERS: Emergency Provider Emergency Medicine; PCP Internal Medicine; Visit Provider Emergency Medicine
DX: R42 Dizziness and giddiness (principal); R00.1 Bradycardia, unspecified; R19.7 Diarrhea, unspecified
CPT/HCPCS: 71046; 80048; 84484; 85025; 87631; 93005; 96360; 96361; 99284; A4216

== ENCOUNTER 2025-01-27 21:52 | Emergency (ER) | payer MEDICAID, SELFPAY ==
[2025-01-27 21:54] VITALS: BP 180/146; PULSE 136; RESP 20; TEMP 36.1; O2SAT 100; BMI 54.3
--- NOTE | 2025-01-27 22:22 | RAD_ITS ---
PROCEDURE: FINGER(S) MIN 2 VIEWS 01/27/2025 REASON FOR EXAM: LEFT SMALL FINGER INJURY TECHNIQUE: FINGER(S) MIN 2 VIEWS COMPARISON: None. FINDINGS: Soft tissue edema and swelling. Normal metacarpal head. Normal metacarpophalangeal joint. Normal proximal phalanx. Normal middle phalanx. Normal distal phalanx. Normal proximal interphalangeal joint. Normal distal interphalangeal joint. RAD/Finger(s) Min 2 Views IMPRESSION: Soft tissue edema and swelling. Reading Location[facility]
--- OUTSIDE RECORDS SUMMARY | 2025-01-27 22:34 | XMS RPT_ITS | CCD ---
Author Organization [facility] Care Team Providers Care Public Health Advisor Name Role Phone Faustina Carcamo MD Primary Care Provider Mingo MBBS, Dhanu R Primary Care Provider [phone] No, Physician Primary Care Provider UnavailOVI Cruz Referring Unavailable OVI HERRERA Attending Unavailable NO, PHYSICIAN Primary Care Unavailable OVI HERRERA Attending Unavailable NO, PHYSICIAN Primary Care Unavailable Faustina Carcamo MD Primary Care Provider Mingo MBBS, Dhanu R Primary Care Provider Faustina Carcamo MD Primary Care Provider PROVIDER 1, MASS IMMUNIZATION Attending Un available MIRTA SORIANO Attending Unavailable SELF, SELF Referring Unavailable MINGO, DHANU R Primary Care Unavailable MINGO, DHANU R Attending Unavailable CASEY KERN Attending Unavailable MINGO, DHANU R Primary Care Unavailable MINGO, DHANU R Referring Unavailable SUHAIL APARICIO Attending Unavailable SUHAIL APARICIO Referring Unavailable MINGO, DHANU R Primary Care Unavailable MARINA GOODRICH Attending Unavailable MINGO, DHANU R Primary Care Unavailable SELF, SELF Referring Unavailable MINGO, DHANU R Primary Care Unavailable MARINA GOODRICH Attending Unavailable MARINA GOODRICH Referring Unavailable MINGO, DHANU R Primary Care Unavailable MIRIAM ORTIZ Attending Unavailable MINGO, DHANU R Primary Care Unavailable SELF, SELF Referring Unavailable JONATHAN PICKETT Attending Unavailable FAUSTINA CARCAMO Primary Care Unavailable UNGPRASERT, PATOMPONG Referring UnavailFAUSTINA Desai Primary Care Unavailable UNGPRASERT, PATOMPONG Referring UnavailFAUSTINA Desai Primary Care Unavailable Faustina Carcamo MD Primary Care Provider Morales BLADE SHARPENER.ICE HOCKEY COACH, Genaro Unavailable Parish BLADE SHARPENER.SAFETY COUNCIL DIRECTOR, Petra Unavailable Crtalic-Lynnette RD, Cindy Unavailable CRTALIC-LYNNETTE, CINDY Attending Unavail able TALAMPAS, FAUSTINA D Primary Care Unavailable GENARO MORALES Referring Unavailable Crtalic-Lynnette RD, Cindy Unavailable Parish BLADE SHARPENER.SAFETY COUNCIL DIRECTOR, Petra Unavailable Parish BLADE SHARPENER.SAFETY COUNCIL DIRECTOR, Petra Unavailable Parish BLADE SHARPENER.SAFETY COUNCIL DIRECTOR, Petra Unavailable Morales BLADE SHARPENER.ICE HOCKEY COACH, Genaro Unavailable TALAMPAS, FAUSTINA D Primary Care Unavailable AYAAN ROWLEY Attending Unavailable UNGPRASERT, PATOMPONG Referring Unavailabl e TALAMPAS, FAUSTINA D Primary Care Unavailable UNGPRASERT, PATOMPONG Attending Unavailabl KEDAR Shultz Attending Unavailable TALAMPAS, FAUSTINA D Primary Care Unavailable SELF Referring Unavailable TALAMPAS, FAUSTINA D Primary Care Unavailable ROSAURA SANTACRUZ Referring Unavailable TALAMPAS, FAUSTINA D Primary Care Unavailable TALAMPAS, FAUSTINA D Primary Care Unavailable GENARO MORALES Attending Unavailable TALAMPAS, FAUSTINA D Primary Care Unavailable TALAMPAS, FAUSTINA D Attending Unavailable TALAMPAS, FAUSTINA D Primary Care Unavailable GENARO MORALES Referring Unavailable ROSSY CLEVELAND Attending Unavailable TALAMPAS, FAUSTINA D Primary Care Unavailable GENARO MORALES Attending Unavailable TALAMPAS, FAUSTINA D Primary Care Unavailable UNGPRASERT, PATOMPONG Referring Unavailabl e TALAMPAS, FAUSTINA D Primary Care Unavailable TALAMPAS, FAUSTINA D Attending Unavailable TALAMPAS, FAUSTINA D Primary Care Unavailable UNGPRASERT, PATOMPONG Referring Unavailabl e TALAMPAS, FAUSTINA D Primary Care Unavailable TALAMPAS, FAUSTINA D Primary Care Unavailable STEVEN HARRIS Referring Unavailable TALAMPAS, FAUSTINA D Primary Care Unavailable TALAMPAS, FAUSTINA D Primary Care Unavailable TALAMPAS, FAUSTINA D Primary Care Unavailable TALAMPAS, FAUSTINA D Primary Care Unavailable UNGPRASERT, PATOMPONG Attending Unavailabl e TALAMPAS, FAUSTINA D Primary Care Unavailable KEDAR VARELA Referring Unavailable TALAMPAS, FAUSTINA D Primary Care Unavailable UNGPRASERT, PATOMPONG Referring Unavailabl e UNGPRASERT, PATOMPONG Attending Unavailabl e TALAMPAS, FAUSTINA D Primary Care Unavailable TALAMPAS, FAUSTINA D Attending Unavailable TALAMPAS, FAUSTINA D Primary Care Unavailable UNGPRASERT, PATOMPONG Referring Unavailabl e TALAMPAS, FAUSTINA D Primary Care Unavailable RUTHANN, NAZ M Attending Unavailable TALAMPAS, FAUSTINA D Primary Care Unavailable RUTHANNMOON M Attending Unavailable TALAMPAS, FAUSTINA D Primary Care Unavailable PETRA BECKMAN Attending Unavailable TALAMPAS, FAUSTINA D Primary Care Unavailable UNGPRASERT, PATOMPONG Referring Unavailabl e UNGPRASERT, PATOMPONG Attending Unavailabl e TALAMPAS, FAUSTINA D Primary Care Unavailable NANI FREEMAN Referring Unavailable KAREN JENKINS Attending Unavailable TALAMPAS, FAUSTINA D Primary Care Unavailable TALAMPAS, FAUSTINA D Primary Care Unavailable UNGPRASERT, PATOMPONG Referring Unavailabl e TALAMPAS, FAUSTINA D Primary Care Unavailable TALAMPAS, FAUTSINA D Primary Care Unavailable UNGPRASERT, PATOMPONG Attending Unavailabl e TALAMPAS, FAUSTINA D Primary Care Unavailable KAREN JENKINS Attending Unavailable TALAMPAS, FAUSTINA D Primary Care Unavailable UNGPRASERT, PATOMPONG Referring Unavailabl e Ermias Kelly Attending Unavailable Talampas, Faustina D Primary Care Unavailable Nicholas Santiago Attending Unavailable Talampas, Faustina D Primary Care Unavailable Talampas, Faustina D Primary Care Unavailable Lisandro Rachel Attending Unavailable Talampas, Faustina D Primary Care Unavailable Jerry Donis Attending Unavailable Andrew ARECHIGA.ICE HOCKEY COACH, Genaro Unavailable Allergies Allergy Classification Reported Allergen(s) Allergy Type Date of Onset Reaction(s) Facility (20 sources) Latex; Translations: [LATEX, NATURAL RUBBER] Drug Allergy 3 Hives [facility] Work Phone: (20 sources) Seasonal allergy; Translations: [SEASONAL ALLERGIES] Allergy to substance 1 [facility] (20 sources) Latex; Translations: [LATEX] Propensity to adverse reactions to drug 3 Hives [facility] (20 sources) Banana Extract; Translations: [BANANA] Drug Allergy 3 Anaphylaxis, GI Upset, Itching [facility] (1 source) Latex Drug allergy (disorder) 5 [facility] (1 source) topiramate Drug Allergy 5 [facility] Medications Current Medications Medication Drug Class(es) Dates Sig (Normalized) Sig (Original) [id number] 200 actuat albuterol 0.09 mg/actuat metered dose inhaler (20 sources) beta2-Adrenergic Agonist Start: 06-09-2020 End: 08-26-2024 take 2 puff(s) by inhalation every four hours as needed albuterol HFA (PROAIR HFA) 90 mcg/actuation inhaler Inhale 2 Puffs as instructed every 4 hours as needed. 18 g 1 08/27/2024 Active Start: 08-03-2017 End: 06-09-2020 take 2 puff(s) by inhalation every four hours as needed albuterol HFA (PROAIR HFA) 90 mcg/actuation inhaler Indications: Bronchitis Inhale 2 Puffs as instructed every 4 hours as needed. 1 Inhaler 08/03/2017 06/09/2020 Discontinued Comment on above: Inhale 2 Puffs as in structed every 4 hours as needed. amoxicillin 875 mg / clavulanate 125 mg oral tablet (10 sources) Penicillin-class Antibacterial Start: End: 5 take 1 tablet by mouth twice daily amoxicillin-clavul anate potassium (AUGMENTIN) 875-125 mg per tablet Take 1 tablet by mouth two times a day for 5 days. 10 tablet 12/21/2024 12/26/2024 Active Start: 07-11-2024 End: 07-21-2024 take 1 tablet by mouth twice daily amoxicillin-clavulanate potassium (AUGMENTIN) 875-125 mg per tablet Indications: Acute recurrent sinusitis, unspecified location Take 1 tablet by mouth two times a day for 10 days. 20 tablet 07/11/2024 07/21/2024 Active Start: 12-14-2023 End: 12-19-2023 take 1 tablet by mouth twice daily amoxicillin-clavulanate potassium (AUGMENTIN) 875-125 mg per tablet Indications: [...] Comment on above: Take 1 tablet by horacio th every 12 hours. Take 1 tablet by horacio th every 12 hours for 10 days. [...] Comment on above: Take 1 tablet by horacio twice daily. as directed Take 1 tablet by horacio two times a day as needed. azelastine hydrochloride 0.137 mg/actuat metered dose nasal spray (20 sources) Histamine-1 Receptor Antagonist Start: 1 take 2 spray(s) nasal route twice daily [...] baclofen 10 mg oral tablet (20 sources) gamma-Aminobutyric Acid-ergic Agonist Start: 4 take 1 tablet by mouth every eight hours as needed baclofen 10 mg tablet Take 1 tablet by mouth three times a day as needed. 90 tablet 2 08/19/2023 Active Comment on above: Take 1 tablet by horacio three times a day as needed. benzonatate 100 mg oral capsule (19 sources) Non-narcotic Antitussive Start: 5 End: 5 take 1 capsule by mouth every eight hours as needed benzonatate (TESSALON PERLE) 100 mg capsule Take 1 capsule by mouth three times a day as needed for cough. 21 capsule 09/25/2024 12/18/2024 Discontinued Start: 04-18-2023 End: 04-25-2023 take 1 capsule by mouth every eight hours as needed benzonatate (TESSALON PERLES) 100 mg capsule Take 1 capsule by mouth three times daily as needed for cough for up to 7 days. 21 capsule 0 04/18/2023 04/25/2023 Comment on above: Take 1 capsule by mo [facility] three times daily as needed for cough for up to 7 days. 1 ml canakinumab 150 mg/ml injection (20 sources) Start: 09-15-19 End: 04-17-20 inject 150 mg by subcutaneous injection in the evening canakinumab, PF, (ILARIS, PF,) 150 mg/mL injection Indications: Periodic fever syndrome (HCC) Inject 150mg (1 vial) subcutaneously every 4 weeks. 1 mL 11 01/10/2025 1:52 PM EDT 04/18/2024 Active Start: 06-18-2022 End: 04-06-2023 canakinumab, [...] Inject 150 mg subcutaneously every 4 weeks. dar -due this weekend 150 mL 3 10/27/2020 01/29/2021 Discontinued Start: 09-13-2019 End: 09-02-2020 canakinumab, PF, (ILARIS, PF ,) 150 mg/mL soln Indications: Periodic fever syndrome (HCC) Inject 150 mg subcutaneously every 4 weeks. 1 Pen 11 09/13/2019 09/02/2020 Discontinued Comment on above: INJECT 150 MG (1 ML) UNDER THE SKIN EVERY 4 WEEKS colchicine 0.6 mg oral tablet (20 sources) Start: 07-21-2021 End: 07-30-2025 take 1 tablet by mouth twice daily colchicine 0.6 mg tablet Indications: Periodic fever syndrome (HCC) Take 1 tablet by mouth two times a day. 180 tablet 3 07/30/2024 07/30/2025 Active Start: 11-22-2019 End: 06-09-2021 take 1 tablet by mouth once daily colchicine 0.6 mg tablet Take 1 tablet by mouth once daily. 30 tablet 11 12/09/2020 06/09/2021 Discontinued Comment on above: TAKE 1 TABLET BY HORACIO TH TWICE A DAY Take 1 tablet by horacio th twice daily. dexamethasone 4 mg oral tablet (1 source) Corticosteroid Start: 023 End: take 1 tablet by mouth once dexAMETHasone (DECADRON) 4 mg tablet Take 1 tablet by mouth one time only for 1 dose. 1 tablet 0 04/18/2023 04/18/2023 Active Comment on above: Take 1 tablet by [facility] one time only for 1 dose. doxycycline hyclate 100 mg oral capsule (4 sources) Tetracycline-class Drug Start: End: take 1 capsule by mouth twice daily doxycycline hyclate (VIBRAMYCIN) 100 mg capsule Take 1 capsule by mouth twice daily for 10 days. 20 capsule 0 02/19/2022 03/01/2022 Active Comment on above: Take 1 capsule by [facility] twice daily for 10 days. [id number] 0.3 ml EPINEPHrine 1 mg/ml auto-injector (20 sources) alpha-Adrenergic Agonist, beta-Adrenergic Agonist, Catecholamine Start: End: EPINEPHrine (EPIPEN 2-ISIDRO) 0.3 mg/0.3 mL auto-injector Indications: Toxic effect of latex, accidental (unintentional), subsequent encounter Inject 0.3 mL intramuscularly as needed. For allergic reaction.Seek emergent medical care immediately after use.Disp:1 2-pakw/customer service trainer 2 Each 10/26/2024 Active ergocalciferol 1.25 mg oral capsule (20 sources) Provitamin D2 Compound Start: take 1 tablet by mouth every week ergocalciferol 50,000 unit capsule (VITAMIN D2, DRISDOL) Indications: Vitamin D deficiency Take 1 tablet by mouth once weekly. 12 capsule 3 04/03/2024 Active fluconazole 150 mg oral tablet (3 sources) Azole Antifungal Start: End: take 1 tablet by mouth once fluconazole (DIFLUCAN) 150 mg tablet Take 1 tablet by mouth one time only for 1 dose. 1 tablet 1 07/19/2024 07/19/2024 Active Start: 07-15-2022 End: 07-15-2022 take 1 tablet by mouth once fluconazole (DIFLUCAN) 150 mg tablet Take 1 tablet by mouth one time only for 1 dose. 1 tablet 0 07/15/2022 07/15/2022 Discontinued Comment on above: Take 1 tablet by horacio one time only for 1 dose. FLUoxetine 10 mg oral capsule (20 sources) Serotonin Reuptake Inhibitor Start: 04-25-2023 take 1 capsule by mouth once daily FLUoxetine (PROZAC) 10 mg capsule Take 1 capsule by mouth once daily. Can go up to 20 mg after 1 month if needed 60 capsule 5 04/25/2023 Active Start: 11-17-2021 take 1 capsule by mo ut once daily FLUoxetine 20 MG capsule Take [...] on above: Take 1 capsule by mo [facility] once daily. Take 1 capsule by mo [facility] once daily. Can go up to 20 [...] FILL. PLEASE SCHEDULE APPOINTMENT FOR FURTHER REFILLS. hydrOXYzine hydrochloride 50 mg oral tablet (20 sources) Antihistamine Start: 08-20-19 take 1 tablet by mouth three times daily as needed for anxiety hydrOXYzine HCl (ATARAX) 50 mg tablet Indications: Panic attacks , Panic disorder with agoraphobia , PTSD (post-traumatic stress disorder) Take 1 tablet by mouth three times a day as needed for anxiety. 60 tablet 1 08/20/2024 Active Start: 06-09-2020 End: 01-13-2022 take 2 tablets by mouth once daily [...] on above: Take 2 tablets by mo [facility] once daily as needed for Anxiety. (from psychiatrist) ketorolac tromethamine 10 mg oral tablet (3 [...] Comment on above: Take 1 tablet by horacio every 6 hours as needed for pain for up to 5 days. Take with food levocetirizine dihydrochloride 5 mg oral tablet (20 sources) Histamine-1 Receptor Antagonist levocetirizine 5 mg tablet Take 5 mg by mouth as needed. Active Comment on above: Take 5 mg by mouth a s needed. levonorgestrel 0.021632 mg/hr intrauterine system (20 sources) Progestin, Progestin-containing [...] Each by INTRAUTERI NE route as directed. LORazepam 1 mg oral tablet (2 sources) Benzodiazepine Start: 025 End: take 1 tablet by mouth once daily as needed LORazepam (ATIVAN) 1 mg tablet Indications: Situational anxiety Take 1 tablet by mouth once daily as needed for up to 7 days. 7 tablet 09/11/2024 09/18/2024 Active 24 hr metFORMIN hydrochloride 500 mg extended release oral tablet (20 sources) Biguanide Start: 08- End: take 50-59.9 tablets by mouth once daily metFORMIN ER (GLUCOPHAGE XR) 500 mg 24 hr tablet Indications: Class 3 severe obesity due to excess calories with body mass index (BMI) of 50.0 to 59.9 in adult, unspecified whether serious comorbidity present (HCC) Take 1 tablet by mouth daily with breakfast. 90 tablet 3 04/03/2024 04/03/2025 Active metroNIDAZOLE 500 mg oral tablet (1 source) Nitroimidazole Antimicrobial Start: End: take 1 tablet by mouth three times daily metroNIDAZOLE (FLAGYL) 500 mg tablet Indications: Gastroenteritis Take 1 tablet by mouth three times a day for 7 days. 21 tablet 01/11/2025 01/18/2025 Active miSOPROStol 0.2 mg oral tablet (9 sources) Prostaglandin E1 Analog Start: End: miSOPROStol (CYTOTEC) 200 mcg tablet Insert 2 tabs vaginally the night prior to procedure and 2 tabs morning of procedure 4 tablet 0 10/29/2021 01/13/2022 Discontinued (Course of therapy completed) Comment on above: Insert 2 tabs vagina lly the night prior to procedure and 2 tabs morning of procedure montelukast 10 mg oral tablet (20 sources) Leukotriene Receptor Antagonist Start: End: take 1 tablet by mouth once daily at bedtime montelukast (SINGULAIR) 10 mg tablet Indications: Moderate persistent reactive airway disease with acute exacerbation (HCC) Take 1 tablet by mouth daily at bedtime. 90 tablet 3 08/11/2022 Active Comment on above: Take 1 tablet by horacio th daily at bedtime. naratriptan 2.5 mg oral tablet (20 sources) Serotonin-1b and Serotonin-1d Receptor Agonist Start: 023 End: take 1 tablet by mouth every four hours as needed for headache naratriptan (AMERGE) 2.5 mg tablet Take 1 tablet by mouth as needed for migraine headache (see administration instructions). 2.5 mg at onset of headache, may repeat in 4 hours if needed 9 tablet 11 10/26/2024 Active Start: 03-17-2021 End: 04-25-2023 take 1 [...] Comment on above: Take 1 tablet by horacio th as needed for Migraine Headache (see [...] oral capsule (1 source) Nitrofuran Antibacterial Start: 023 End: 023 take 1 capsule by mouth twice daily nitrofurantoin monohydrate and macrocrystal (MACROBID) 100 mg capsule Take 1 capsule by mouth two times a day for 5 days. 10 capsule 0 05/25/2023 05/30/2023 Active Comment on above: Take 1 capsule by mo [facility] two times a day for 5 days. [...] Comment on above: TAKE 1 TABLET BY HORACIO TH EVERY DAY Oral Electrolytes (Pedialyte Freezer Pops) Solution (5 sources) Start: 04-22-2021 take 948 mL by mouth once daily Oral Electrolytes (Pedialyte Freezer Pops) Solution Take 948 mL by mouth daily. 0 04/22/2021 Active Start: 04-22-2021 End: 04-22-2022 take 948 mL by mouth once daily Oral Electrolytes (Pedialyte Freezer Pops) Solution Take 948 mL by mouth daily. 0 04/22/2021 04/22/2022 Active pantoprazole 40 mg delayed release oral tablet (20 sources) Proton Pump Inhibitor Start: 07-04-2024 take 1 tablet by mouth once daily before breakfast pantoprazole DR (PROTONIX) 40 mg tablet Take 1 tablet by mouth daily before breakfast. Take on empty stomach, 1/2 hr before meal. 30 tablet 07/04/2024 Active predniSONE 5 mg oral tablet (20 sources) Start: 11-22-2024 End: 12-18-2024 predniSONE (DELTASONE) 5 mg tablet Indications: SO-JILLIAN (systemic onset juvenile idiopathic arthritis) (HCC) , Periodic fever syndrome (HCC) 20 mg daily for 5 days, 15 mg daily for 5 days, 10 mg daily for 5 days, 5 mg daily for 5 days 50 tablet 11/22/2024 12/18/2024 Discontinued Start: 11-22-2024 End: 11-26-2024 take 2 tablets by mouth once daily at mealtime predniSONE (DELTASONE) 20 mg tablet Take 2 tablets by mouth once daily for 4 days. Take daily with food. 8 tablet 11/22/2024 11/22/2024 Discontinued Start: 09-25-2024 End: 11-22-2024 predniSONE (DELTASONE) 10 mg tablet Take 4 tabs daily for 3 days, then 2 tabs daily for 3 days, then 1 tab daily for 3 days with food. 21 tablet 09/25/2024 11/22/2024 Discontinued (Course of therapy completed) Start: 04-03-2024 End: 04-15-2024 predniSONE (DELTASONE) 10 [...] days until off. Take 1 tablet by horacio th once daily. TAKE 1 TABLET BY HORACIO TH EVERY DAY Take 4 tabs daily x 3 days, then 3 tabs x 3 days, 2 tabs x 3 days, then 1 tab x3 days with food. 20 mg daily for 3 da ys, then 15 mg daily for 3 days, then 10 mg daily for 3 days then 5 mg daily for 30 days promethazine hydrochloride 25 mg oral tablet (2 sources) Phenothiazine Start: 01-10-20 25 take 25-50 mg by mouth every six hours as needed promethazine (PHENERGAN) 25 mg tablet Take 1-2 tablets by mouth every 6 hours as needed for nausea/vomiting. 90 tablet 1 01/09/2025 Active propranolol hydrochloride 10 mg oral tablet (20 sources) beta-Adrenergic Ishmael Start: 01-19-20 take 1-2 tablets by mouth twice daily [...] Needle, Disp, 1 mL 27 x 1/2 (20 sources) Start: 04-24-2024 Syringe with Needle, Disp, 1 mL 27 x 1/2 Use to inject subcutaneous Ilaris dose 1 Each 01/10/2025 1:52 PM EDT 04/24/2024 Active Start: 04-24-2024 Syringe with N eedle, Disp, 1 mL 27 x 1/2 Use to inject subcutaneous Ilaris dose 1 Each 12/12/2024 11:53 AM EDT 04/24/2024 Active Start: 04-24-2024 Syringe with N eedle, Disp, 1 mL 27 x 1/2 Use to inject subcutaneous Ilaris dose 1 Each 11/15/2024 1:46 PM EDT 04/24/2024 Active Start: 04-24-2024 Syringe with N eedle, Disp, 1 mL 27 x 1/2 Use to inject subcutaneous Ilaris dose 1 Each 10/22/2024 1:08 PM EDT 04/24/2024 Active Start: 04-24-2024 Syringe with N eedle, Disp, 1 mL 27 x 1/2 Use to inject subcutaneous Ilaris dose 1 Each 09/18/2024 1:13 PM EST 04/24/2024 Active Start: 04-24-2024 Syringe with N eedle, Disp, 1 mL 27 x 1/2 Use to inject subcutaneous Ilaris dose 1 Each 04/24/2024 Active Syringe with Needle, Disp, 3 mL 18 x 1 1/2 (20 sources) Start: 04-24-2024 Syringe with N eedle, Disp, 3 mL 18 x 1 1/2 Use to draw up ilaris dose 1 Each 01/10/2025 1:52 PM EDT 04/24/2024 Active Start: 04-24-2024 Syringe with N eedle, Disp, 3 mL 18 x 1 1/2 Use to draw up ilaris dose 1 Each 12/12/2024 11:53 AM EDT 04/24/2024 Active Start: 04-24-2024 Syringe with N eedle, Disp, 3 mL 18 x 1 1/2 Use to draw up ilaris dose 1 Each 11/15/2024 1:46 PM EDT 04/24/2024 Active Start: 04-24-2024 Syringe with N eedle, Disp, 3 mL 18 x 1 1/2 Use to draw up ilaris dose 1 Each 10/22/2024 1:08 PM EDT 04/24/2024 Active Start: 04-24-2024 Syringe with N eedle, Disp, 3 mL 18 x 1 1/2 Use to draw up ilaris dose 1 Each 09/18/2024 1:13 PM EST 04/24/2024 Active Start: 04-24-2024 Syringe with N eedle, Disp, 3 mL 18 x 1 1/2 Use to draw up ilaris dose 1 Each 12 04/24/2024 Active 0.9 ml tocilizumab 180 mg/ml prefilled syringe (20 sources) Interleukin-6 Receptor Antagonist Start: 04-06-2023 End: 04-11-2024 inject 162 mg by subcutaneous injection every week tocilizumab (ACTEMRA) 162 mg/0.9 mL Indications: SO-JILLIAN (systemic onset juvenile idiopathic arthritis) (HCC) Inject 162 mg ( 1 syringe) subcutaneously one time a week. 3.6 mL 11 04/12/2023 04/11/2024 Active Comment on above: Inject 162 mg ( 1 sy ringe) subcutaneously one time a week. triamcinolone acetonide 0.055 mg/actuat metered dose nasal spray (20 sources) Corticosteroid Start: 06-09-2020 take 2 spray(s) by inhalation once daily triamcinolone acetonide (NASACORT) 55 mcg nasal inhaler Use 2 Sprays in the nose once daily. 06/09/2020 Active Comment on above: Use 2 Sprays in the nose once daily. WALKER ROLLATOR SEAT WITH 6 WHEELS - RED (20 sources) Start: 05-08-2024 WALKER ROLLATOR SEAT WITH 6 WHEELS [...] Drug Class(es) Dates Sig (Normalized) Sig (Original) 0.67 ml anakinra 149 mg/ml prefilled syringe (3 sources) Interleukin-1 Receptor Antagonist Start: 06-14-2019 End: 01-30-2021 inject 0.67 mL by subcutaneous injection once daily anakinra (KINERET) 100 mg/0.67 mL syrg Indications: Periodic fever syndrome (HCC) Inject 0.67 mL subcutaneously once daily. 30 Syringe 3 06/14/2019 01/30/2021 Discontinued B-D SYRINGE LUER-RAJI 1CC 1 mL (7 sources) Start: 06-29-2022 End: 08-12-2022 B-D SYRINGE LUER-RAJI 1CC 1 mL USE DIRECTED WITH ILARIS 1 Each 11 06/29/2022 08/12/2022 Discontinued Start: 06-29-2022 B-D SYRINGE VICTOR HUGO ER-RAJI 1CC 1 mL USE DIRECTED WITH ILARIS 1 Each 11 06/29/2022 Active Comment on above: USE DIRECTED WITH ILARIS Blood Pressure Monitor (BLOOD PRESSURE KIT) kit [...] Comment on above: Take 1 capsule by [facility] two times a week. cyclobenzaprine hydrochloride 10 [...] extended release oral tablet (3 sources) Uncompetitive A-srreja-H-aspartate Receptor Antagonist, Sigma-1 Agonist Start: 2022 End: 2022 take 1 tablet by mouth twice daily dextromethorphan-guai FENesin (MUCINEX DM) 30-600 mg per tablet Take 1 tablet by mouth twice daily for 7 days. 14 tablet 0 04/18/2023 04/25/2023 Comment on above: Take 1 tablet by [facility] twice daily for 7 days. diphenhydrAMINE hydrochloride [...] needed. TAKE AT ONSET OF MIGRAINE HEADACHE. iohexol (OMNIPAQUE) 350 MG/ML injection 1-171 mL (1 source) Start: 2021 End: 2021 iohexol (OMNIPAQUE) 350 MG/ML injection 1-171 mL ketoconazole 20 mg/ml topical cream (4 sources) Azole Antifungal Start: 2018 End: 2021 ketoconazole (NIZORAL) 2 % cream Indications: Perleche with candidiasis Apply 1 application to affected area once daily. Use 1 week past rash resolving as directed 30 g 2 09/20/2018 09/16/2021 Discontinued meloxicam 15 mg oral tablet (20 sources) Nonsteroidal Anti-inflammatory Drug Start: 2020 End: 2021 take 1 tablet by mouth once daily [...] Comment on above: Take 1 tablet by horacio once daily as needed. methylPREDNISolone (9 sources) Corticosteroid Start: 06-14-2024 End: 07-04-2024 methylPREDNISolone (MEDROL DOSE-PACK) 4 mg Dose-Pack Indications: Periodic fever syndrome (HCC) Take as instructed per package. 21 tablet 06/14/2024 07/04/2024 Discontinued (Course of therapy completed) Start: 06-14-2024 methylPREDNISo lone (MEDROL DOSE-PACK) 4 mg Dose-Pack Indications: Periodic fever syndrome (HCC) Take as instructed per package. 21 tablet 06/14/2024 Active Start: 06-07-2024 End: 06-14-2024 methylPREDNISolone (MEDROL D OSE-PACK) 4 mg Dose-Pack Indications: Periodic fever syndrome (HCC) Take as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 LABCLIA [id number] [place] [address] [place] Nucleated RBC (Bld) [#/Vol] 10*3/uL Normal <0.01 [facility] Comment on above: Order Comment: Speci men Type: BLOOD SPECIMENOrdering Facility: [facility] Address: [address] [place] [address] Performed By: #### 4 537-7, 82367-6 ####[facility] LABCLIA [id number] [place] [address] [place] Nucleated RBC/100 WBC (Bld) [Ratio] 0.0 /100 WBC Normal [facility] Comment on above: Order Comment: Speci men Type: BLOOD SPECIMENOrdering Facility: [facility] Address: [address] [place] [address] Performed By: #### 4 537-7, 53817-7 ####[facility] LABIA [id number] [place] [address] [place] Platelet mean volume (Bld) [Entitic vol] 10.0 fL Normal 9.0-12.7 [facility] Comment on above: Order Comment: Speci men Type: BLOOD SPECIMENOrdering Facility: [facility] Address: [address] [place] [address] Performed By: #### 4 537-7, 53875-4 ####[facility] LABIA [id number] [place] [address] [place] Platelets (Bld) [#/Vol] 354 10*3/uL Normal 150-400 [facility] Comment on above: Order Comment: Speci men Type: BLOOD SPECIMENOrdering Facility: [facility] Address: [address] [place] [address] Performed By: #### 4 537-7, 96173-6 ####[facility] LABIA [id number] [place] [address] [place] RBC (Bld) [#/Vol] 4.43 10*6/uL Normal 3.90-5.20 [facility] Comment on above: Order Comment: Speci men Type: BLOOD SPECIMENOrdering Facility: [facility] Address: [address] [place] [address] Performed By: #### 4 537-7, 43554-5 ####[facility] LABIA [id number] [place] [address] [place] WBC (Bld) [#/Vol] 5.95 10*3/uL Normal 3.70-11.00 [facility] Comment on above: Order Comment: Krystyna armstrong Type: BLOOD SPECIMENOrdering Facility: [facility] Address: [address] [place] [address] Performed By: #### 4 537-7, 27740-8 ####[facility] LABCLIA [id number] [place] [address] [place] CNOVon 12-18-2024 CNOV Normal [facility] CNPNon 12-18-2024 CNPN Normal [facility] CRP SerPl-mCncon 12-18-2024 CRP [Mass/Vol] mg/L Normal <0.9 [facility] Comment on above: Order Comment: Krystyna armstrong Type: BLOOD SPECIMENOrdering Facility: [facility] Address: [address] [place] [address] Performed By: #### 4 5066-8, 3094-0, 90849-0 ####[facility] LABCLIA [id number] [place] [address] [place]#### 1988-5 ####[facility] LABCLIA [id number] [place] [address] [place] Creatinine + eGFR Pnl SerPlB ldon 12-18-2024 Creatinine and Glomerular filtration rate.predicted panel (S/P/Bld) 126 mL/min/1.73m??? Normal >=60 [facility] Comment on above: Order Comment: Krystyna armstrong Type: BLOOD SPECIMENOrdering Facility: [facility] Address: [address] [place] [address] Result Comment: Imelda mated Glomerular Filtration Rate [...] accurately reflect actual GFR. Performed By: #### 4 5066-8, 3094-0, 57384-0 ####[facility] LABCLIA [id number] [place] [address] [place]#### 1987-12 ####[facility] LABCLIA [id number] [address] [place] Creatinine and Glomerular fi ltration rate.predicted panel (S/P/Bld)on 12-18-2024 Creatinine [Mass/Vol] 0.53 mg/dL Low 0.58 - 0.96 mg/dL [facility] GFR/1.73 sq M.predicted among non-blacks MDRD (S/P/Bld) [Vol rate/Area] 126 mL/min/{1.73_m2} - PINF [facility] Comment on above: Estimated Glomerular Filtration Rate (eGFR) is calculated using the 2020 CKD-EPI creatinine equation. This equation utilizes serum creatinine, sex, and age as parameters. The creatinine assay has traceable calibration to isotope dilution-mass spectrometry. Refer to KDIGO guidelines for clinical interpretation. In patients with unstable renal function, e.g. those with acute kidney injury, the eGFR may not accurately reflect actual GFR. Interpretation and review of laboratory results Abnormal [facility] Creatinine [Mass/Vol] 0.53 mg/dL Low 0.58-0.96 [facility] Comment on above: Order Comment: Krystyna armstrong Type: BLOOD SPECIMENOrdering Facility: [facility] Address: [address] [place] [address] Performed By: #### 4 5066-8, 309-0, ####[facility] LABCLIA [id number] [place] [id number] [facility] [place]#### 1987-12 ####[facility] LABCLIA [id number] [place] [address] [place] ESR Westergren method (Bld) [Velocity]on 12-18-2024 ESR (Bld) [Velocity] 2 mm/h Normal 0-20 [facility] Comment on above: Order Comment: Speci men Type: BLOOD SPECIMENOrdering Facility: [facility] Address: [address] [place] [address] Performed By: #### 4 537-7, 46349-1 ####[facility] LABCLIA [id number] [place] [address] [place] Hepatic function 2000 panelo n 12-18-2024 Albumin [Mass/Vol] 4.1 g/dL 3.9 - 4.9 g/dL [facility] ALP [Catalytic activity/Vol] 52 U/L 34 - 123 U/L [facility] ALT [Catalytic activity/Vol] 32 U/L 7 - 38 U/L [facility] AST [Catalytic activity/Vol] 22 U/L 13 - 35 U/L [facility] Bilirubin [Mass/Vol] 0.6 mg/dL 0.2 - 1.3 mg/dL [facility] Bilirubin.conjugated [Mass/Vol] 0.1 mg/dL NINF - 0.3 mg/dL [facility] Protein [Mass/Vol] 6.4 g/dL 6.3 - 8.0 g/dL [facility] Albumin [Mass/Vol] 4.1 g/dL Normal 3.9-4.9 [facility] Comment on above: Order Comment: Speci men Type: BLOOD SPECIMENOrdering Facility: [facility] Address: [address] [place] [address] Performed By: #### 4 5066-8, 3094-0, 32455-8 ####[facility] LABCLIA [id number] [place] [address] [place]#### 1988-5 ####[facility] LABCLIA [id number] [place] [address] [place] ALP [Catalytic activity/Vol] 52 U/L Normal 34-123 [facility] Comment on above: Order Comment: Speci men Type: BLOOD SPECIMENOrdering Facility: [facility] Address: [address] [place] [address] Performed By: #### 4 5066-8, 3094-0, 12174-1 ####[facility] LABCLIA [id number] [place] [id number] [place]#### 1987-12 ####[facility] LABCLIA [id number] [address] [address] [place] ALT [Catalytic activity/Vol] 32 U/L Normal 7-38 [facility] Comment on above: Order Comment: Speci men Type: BLOOD SPECIMENOrdering Facility: [facility] Address: [address] [place] [address] Performed By: #### 4 50668, 0, ####[facility] LABCLIA [id number] [place] [address] [place]#### 1987-12 ####[facility] LABCLIA [id number] [place] [id number] [place] AST [Catalytic activity/Vol] 22 U/L Normal 13-35 [facility] Comment on above: Order Comment: Speci men Type: BLOOD SPECIMENOrdering Facility: [facility] Address: [address] [place] [address] Performed By: #### 4 5066-8, 0, ####[facility] LABCLIA [id number] [address] [place]#### 1987-12 ####[facility] LABCLIA [id number] [address] [address] [place] Bilirubin [Mass/Vol] 0.6 mg/dL Normal 0.2-1.3 [facility] Comment on above: Order Comment: Speci men Type: BLOOD SPECIMENOrdering Facility: [facility] Address: [address] [place] [address] Performed By: #### 4 5066-8, 3090, ####[facility] LABCLIA [id number] [place] [address] [place]#### 1987-12 ####[facility] LABCLIA [id number] [place] [address] [place] Bilirubin.conjugated [Mass/Vol] 0.1 mg/dL Normal <0.3 [facility] Comment on above: Order Comment: Speci men Type: BLOOD SPECIMENOrdering Facility: [facility] Address: [address] [place] [address] Performed By: #### 4 5066-8, 309-0, 77087-1 ####[facility] LABIA [id number] [place] [address] [place]#### 1987-12 ####[facility] LABCLIA [id number] [place] [id number] [place] Protein [Mass/Vol] 6.4 g/dL Normal 6.3-8.0 [facility] Comment on above: Order Comment: Speci men Type: BLOOD SPECIMENOrdering Facility: [facility] Address: [address] [place] [address] Performed By: #### 4 5066-8, 3090, ####[facility] LABCLIA [id number] [place] [address] [place]#### 1987-12 ####[facility] LABCLIA [id number] [place] [address] [place] No Panel Informationon 12-18 Interpretation and review of laboratory results Normal [facility] UREA NITROGENon 12-18-2024 Urea nitrogen [Mass/Vol] 8 mg/dL 7 - 21 mg/dL [facility] BUN SerPl-mCncon 11-23-2024 Urea nitrogen [Mass/Vol] 6 mg/dL Low 7-21 [facility] Comment on above: Order Comment: Speci men Type: BLOOD SPECIMENOrdering Facility: [facility] Address: [address] [place] [address] Performed By: #### 4 5066-8, 1987-5, 3094-0, 89233-6 ####[facility] LABCLIA [id number] [place] [address] [place] CBC W Auto Differential pane l (Bld)on 11-23-2024 Basophils (Bld) [#/Vol] 0.06 10*3/uL Normal <0.11 [facility] Comment on above: Order Comment: Speci men Type: BLOOD SPECIMENOrdering Facility: [facility] Address: [address] [place] [address] Performed By: #### 4 537-7, 40968-1 ####[facility] LABIA [id number] [place] [address] [place] Basophils/100 WBC (Bld) 0.9 % Normal [facility] Comment on above: Order Comment: Speci men Type: BLOOD SPECIMENOrdering Facility: [facility] Address: [address] [place] [address] Performed By: #### 4 537-7, 96200-1 ####[facility] LABIA [id number] [place] [address] [place] Differential cell count method Nom (Bld) Auto Normal [facility] Comment on above: Order Comment: Speci men Type: BLOOD SPECIMENOrdering Facility: [facility] Address: [address] [place] [address] Performed By: #### 4 537-7, 27937-5 ####[facility] LABIA [id number] [place] [id number] [place] Eosinophils (Bld) [#/Vol] 0.20 10*3/uL Normal <0.46 [facility] Comment on above: Order Comment: Speci men Type: BLOOD SPECIMENOrdering Facility: [facility] Address: [address] [place] [address] Performed By: #### 4 537-7, 27015-2 ####[facility] LABCLIA [id number] [address] [place] [address] [place] Eosinophils/100 WBC (Bld) 2.9 % Normal [facility] Comment on above: Order Comment: Speci men Type: BLOOD SPECIMENOrdering Facility: [facility] Address: [address] [place] [address] Performed By: #### 4 537-7, 88297-7 ####[facility] LABCLIA [id number] [address], [facility] [place] Erythrocyte distribution width (RBC) [Ratio] 12.3 % Normal 11.5-15.0 [facility] Comment on above: Order Comment: Speci men Type: BLOOD SPECIMENOrdering Facility: [facility] Address: [address] [place] [address] Performed By: #### 4 537-7, 41481-2 ####[facility] LABIA [id number] [address], [place] [address] [place] Hematocrit (Bld) [Volume fraction] 41.3 % Normal 36.0-46.0 [facility] Comment on above: Order Comment: Speci men Type: BLOOD SPECIMENOrdering Facility: [facility] Address: [address] [place] [address] Performed By: #### 4 537-7, 95093-0 ####[facility] LABCLIA [id number] [address], [facility] [place] Hemoglobin (Bld) [Mass/Vol] 13.5 g/dL Normal 11.5-15.5 [facility] Comment on above: Order Comment: Speci men Type: BLOOD SPECIMENOrdering Facility: [facility] Address: [address] [place] [address] Performed By: #### 4 537-7, 88102-7 ####[facility] LABCLIA [id number] [address] [place] [address] [place] Immature granulocytes (Bld) [#/Vol] 0.04 10*3/uL Normal <0.10 [facility] Comment on above: Order Comment: Speci men Type: BLOOD SPECIMENOrdering Facility: [facility] Address: [address] [place] [address] Performed By: #### 4 537-7, 85412-5 ####[facility] LABCLIA [id number] [place] [address] [place] Immature granulocytes/100 WBC (Bld) 0.6 % Normal [facility] Comment on above: Order Comment: Speci men Type: BLOOD SPECIMENOrdering Facility: [facility] Address: [address] [place] [address] Performed By: #### 4 537-7, 82989-8 ####[facility] LABCLIA [id number] [place] [address] [place] Lymphocytes (Bld) [#/Vol] 2.79 10*3/uL Normal 1.00-4.00 [facility] Comment on above: Order Comment: Speci men Type: BLOOD SPECIMENOrdering Facility: [facility] Address: [address] [place] [address] Performed By: #### 4 537-7, 58153-6 ####[facility] LABCLIA [id number] [place] [address] [place] Lymphocytes/100 WBC (Bld) 41.0 % Normal [facility] Comment on above: Order Comment: Speci men Type: BLOOD SPECIMENOrdering Facility: [facility] Address: [address] [place] [address] Performed By: #### 4 537-7, 59547-2 ####[facility] LABCLIA [id number] [place] [id number] [place] MCH (RBC) [Entitic mass] 30.2 pg Normal 26.0-34.0 [facility] Comment on above: Order Comment: Speci men Type: BLOOD SPECIMENOrdering Facility: [facility] Address: [address] [place] [address] Performed By: #### 4 537-7, 36022-8 ####[facility] LABCLIA [id number] [place] [address] [place] MCHC (RBC) [Mass/Vol] 32.7 g/dL Normal 30.5-36.0 [facility] Comment on above: Order Comment: Speci men Type: BLOOD SPECIMENOrdering Facility: [facility] Address: [address] [place] [address] Performed By: #### 4 537-7, 16450-8 ####[facility] LABIA [id number] [place] [address] [place] MCV (RBC) [Entitic vol] 92.4 fL Normal 80.0-100.0 [facility] Comment on above: Order Comment: Speci men Type: BLOOD SPECIMENOrdering Facility: [facility] Address: [address] [place] [address] Performed By: #### 4 537-7, 24217-2 ####[facility] LABIA [id number] [place] [address] [place] Monocytes (Bld) [#/Vol] 0.73 10*3/uL Normal <0.87 [facility] Comment on above: Order Comment: Speci men Type: BLOOD SPECIMENOrdering Facility: [facility] Address: [address] [place] [address] Performed By: #### 4 537-7, 58505-9 ####[facility] LABIA [id number] [address] [place] Monocytes/100 WBC (Bld) 10.7 % Normal [facility] Comment on above: Order Comment: Speci men Type: BLOOD SPECIMENOrdering Facility: [facility] Address: [address] [place] [address] Performed By: #### 4 537-7, 32282-6 ####[facility] LABCLIA [id number] [place] [address] [place] Neutrophils (Bld) [#/Vol] 2.98 10*3/uL Normal 1.45-7.50 [facility] Comment on above: Order Comment: Speci men Type: BLOOD SPECIMENOrdering Facility: [facility] Address: [address] [place] [address] Performed By: #### 4 537-7, 97247-0 ####[facility] LABCLIA [id number] [place] [address] [place] Neutrophils/100 WBC (Bld) 43.9 % Normal [facility] Comment on above: Order Comment: Speci men Type: BLOOD SPECIMENOrdering Facility: [facility] Address: [address] [place] [address] Performed By: #### 4 537-7, 08089-0 ####[facility] LABCLIA [id number] [place] [address] [place] Nucleated RBC (Bld) [#/Vol] 10*3/uL Normal <0.01 [facility] Comment on above: Order Comment: Speci men Type: BLOOD SPECIMENOrdering Facility: [facility] Address: [address] [place] [address] Performed By: #### 4 537-7, 64439-8 ####[facility] LABCLIA [id number] [place] [id number] [place] Nucleated RBC/100 WBC (Bld) [Ratio] 0.0 /100 WBC Normal [facility] Comment on above: Order Comment: Speci men Type: BLOOD SPECIMENOrdering Facility: [facility] Address: [address] [place] [address] Performed By: #### 4 537-7, 15617-1 ####[facility] LABCLIA [id number] [place] [address] [place] Platelet mean volume (Bld) [Entitic vol] 10.2 fL Normal 9.0-12.7 [facility] Comment on above: Order Comment: Speci men Type: BLOOD SPECIMENOrdering Facility: [facility] Address: [address] [place] [address] Performed By: #### 4 537-7, 02973-4 ####[facility] LABIA [id number] [place] [address] [place] Platelets (Bld) [#/Vol] 425 10*3/uL High 150-400 [facility] Comment on above: Order Comment: Speci men Type: BLOOD SPECIMENOrdering Facility: [facility] Address: [address] [place] [address] Performed By: #### 4 537-7, 23056-9 ####[facility] [id number] [place] [address] [place] RBC (Bld) [#/Vol] 4.47 10*6/uL Normal 3.90-5.20 [facility] Comment on above: Order Comment: Speci men Type: BLOOD SPECIMENOrdering Facility: [facility] Address: [address] [place] [address] Performed By: #### 4 537-7, 43053-6 ####[facility] LABIA [id number] [place] [address] [place] WBC (Bld) [#/Vol] 6.80 10*3/uL Normal 3.70-11.00 [facility] Comment on above: Order Comment: Speci men Type: BLOOD SPECIMENOrdering Facility: [facility] Address: [address] [place] [address] Performed By: #### 4 537-7, 27926-5 ####[facility] LABIA [id number] [place] [id number] [place] CNPNon 11-23-2024 CNPN Normal [facility] CRP SerPl-mCncon 11-23-2024 CRP [Mass/Vol] 2.3 mg/dL High <0.9 [facility] Comment on above: Order Comment: Speci nathaniel Type: BLOOD SPECIMENOrdering Facility: [facility] Address: [address] [place] [address] Performed By: #### 4 5066-8, 1987-12, 0, ####[facility] [id number] [place] [id number] [place] Creatinine + eGFR Pnl SerPlB ldon 11-23-2024 Creatinine and Glomerular filtration rate.predicted panel (S/P/Bld) 128 mL/min/1.73m??? Normal >=60 [facility] Comment on above: Order Comment: Krystyna armstrong Type: BLOOD SPECIMENOrdering Facility: [facility] Address: [address] [place] [address] Result Comment: Imelda mated Glomerular Filtration Rate [...] accurately reflect actual GFR. Performed By: #### 4 5066-8, 1987-12, 0, ####[facility] LABIA [id number] [place] [id number] [place] Creatinine and Glomerular fi ltration rate.predicted panel (S/P/Bld)on 11-23-2024 Creatinine [Mass/Vol] 0.50 mg/dL Low 0.58-0.96 [facility] Comment on above: Order Comment: Speci men Type: BLOOD SPECIMENOrdering Facility: [facility] Address: [address] [place] [address] Performed By: #### 4 5066-8, 1987-12, 309-0, 94563-7 ####[facility] LABCLIA [id number] [address] [address] [place] ESR Westergren method (Bld) [Velocity]on 11-23-2024 ESR (Bld) [Velocity] 29 mm/h High 0-20 [facility] Comment on above: Order Comment: Speci men Type: BLOOD SPECIMENOrdering Facility: [facility] Address: [address] [place] [address] Performed By: #### 4 537-7, 80990-7 ####[facility] LABIA [id number] [place] [address] [place] Hepatic function 2000 panelo n 11-23-2024 Albumin [Mass/Vol] 3.9 g/dL Normal 3.9-4.9 [facility] Comment on above: Order Comment: Speci men Type: BLOOD SPECIMENOrdering Facility: [facility] Address: [address] [place] [address] Performed By: #### 4 5066-8, 1987-12, 309-0, 32512-7 ####[facility] LABIA [id number] [place] [address] [place] ALP [Catalytic activity/Vol] 74 U/L Normal 34-123 [facility] Comment on above: Order Comment: Speci men Type: BLOOD SPECIMENOrdering Facility: [facility] Address: [address] [place] [address] Performed By: #### 4 5066-8, 1987-12, 3090, 94594-1 ####[facility] LABIA [id number] [place] [id number] [place] ALT [Catalytic activity/Vol] 23 U/L Normal 7-38 [facility] Comment on above: Order Comment: Speci men Type: BLOOD SPECIMENOrdering Facility: [facility] Address: [address] [place] [address] Performed By: #### 4 5066-8, 1987-12, 3094-0, 70743-4 ####[facility] LABIA [id number] [place] [id number] [place] AST [Catalytic activity/Vol] 25 U/L Normal 13-35 [facility] Comment on above: Order Comment: Speci men Type: BLOOD SPECIMENOrdering Facility: [facility] Address: [address] [place] [address] Performed By: #### 4 5066-8, 1987-12, 309-0, 03298-5 ####[facility] LABIA [id number] [place] [address] [place] Bilirubin [Mass/Vol] 0.2 mg/dL Normal 0.2-1.3 [facility] Comment on above: Order Comment: Speci men Type: BLOOD SPECIMENOrdering Facility: [facility] Address: [address] [place] [address] Performed By: #### 4 5066-8, 1987-12, 3090, 71083-8 ####[facility] LABIA [id number] [place] [address] [place] Bilirubin.conjugated [Mass/Vol] mg/dL Normal <0.3 [facility] Comment on above: Order Comment: Speci men Type: BLOOD SPECIMENOrdering Facility: [facility] Address: [address] [place] [address] Performed By: #### 4 5066-8, 1987-12, 309-0, 90941-8 ####[facility] LABIA [id number] [place] [id number] [place] Protein [Mass/Vol] 7.2 g/dL Normal 6.3-8.0 [facility] Comment on above: Order Comment: Speci men Type: BLOOD SPECIMENOrdering Facility: [facility] Address: [address] [place], [place] [address] Performed By: #### 4 5066-8, 1988-5, 3094-0, 62731-1 ####[facility] [id number] [place] [address] [place] Heteroph Ab Ser Ql LAon 04- Heterophile Ab LA Ql (S) Negative Normal Negative [facility] Comment on above: Order Comment: Speci men Type: BLOOD SPECIMENOrdering Facility: [facility] Address: [address] [place] [address] Result Comment: Infe ctious Mononucleosis rapid test is used as an aid in diagnosis of acute infection with Sun-Soto virus (EBV). The antibody levels may occasionally remain elevated up to several months after a primary EBV infection. Final interpretation should be done in conjunction with EBV-specific serology and clinical correlation. False positive results may occasionally be seen with other infectious agents such as Cytomegalovirus, Toxoplasma, and HIV among others as well as non-infectious conditions such as lymphoma. Clinical correlation is required. Performed By: #### 5 213-4 ####[facility] LABIA [id number] [place] [address] [place] CNOVon 11-22-2024 CNOV Normal [facility] STREP A MOLECULAR (POC)on Procedural Control Valid [facility] Strep A (POCT) Negative Negative [facility] CNOVon 11-19-2024 CNOV Normal [facility] STREP A MOLECULAR (POC)on Procedural Control Valid [facility] Strep A (POCT) Negative Negative [facility] 12 Lead EKGon 11-09-2024 12 Lead EKG [facility] Services [address] [place] [address] 12 Lead EKG 11/09/24 0238 MR#: [id number] Acct: [id number] Name: LILIAM THOMPSON Rep #: [id number] : 1990 34 From: Oziel Nash MD Attending Dr: Status: DEP ER Ordering Dr: Lisandro Rachel DO Date: 11/09/24 Location: ED Sex: F C Admitted: Test Reason : GEN. ILLNESS Blood Pressure : */* mmHG Vent. Rate : 59 BPM Atrial Rate : 59 BPM P-R Int : 156 ms QRS Dur : 74 ms QT Int : 392 ms P-R-T Axes : 29 42 18 degrees QTcB Int : 388 ms Sinus bradycardia Otherwise normal ECG Confirmed by JOVTIA PEÑA, OZIEL ([id number]), book or script editor BLAKE MEJÍA ([id number]) on 11/09/2024 8:26:25 AM Referred By: MEGAN Confirmed By: OZIEL NASH MD 11/09/24825 Date Oziel Nash MD CC: Dr. Faustina Carcamo MD; Dr. Lisandro Rachel DO Signed Normal [facility] Basic Metabolic Profile (BMP )on 11-09-2024 BUN/CRE 8.6 RATIO Low 10-20 [facility] Comment on above: Performed By: #### L 500.2500, L100.0100, L501.4021 ####[facility] [address] [place], [address] Calcium [Mass/Vol] 9.5 mg/dL Normal 7.6-11.0 [facility] Comment on above: Performed By: #### L 500.2500, L100.0100, L501.4021 ####[facility] [address] [place], [address] Chloride [Moles/Vol] 107 mmol/L Normal 98-108 [facility] Comment on above: Performed By: #### L 500.2500, L100.0100, L501.4021 ####[facility] [address] [place], [address] CO2 [Moles/Vol] 16.3 mmol/L Low 21.0-32.0 [facility] Comment on above: Performed By: #### L 500.2500, L100.0100, L501.4021 ####[facility] [address] [place], [address] Creatinine [Mass/Vol] 0.63 mg/dL Low 0.70-1.20 [facility] Comment on above: Performed By: #### L 500.2500, L100.0100, L501.4021 ####[facility] [address] [place], [address] ECRCL 156.44 ml/min Normal 50-250 [facility] Comment on above: Performed By: #### L 500.2500, L100.0100, L501.4021 ####[facility] [address] [place], [address] GAP 18 High 5-15 [facility] Comment on above: Performed By: #### L 500.2500, L100.0100, L501.4021 ####[facility] [address] [place], [address] GFR/1.73 sq M.predicted among non-blacks MDRD (S/P/Bld) [Vol rate/Area] 121 mL/min/{1.73_m2} Normal >60 [facility] Comment on above: Result Comment: mL/m in/1.73m2 CKD-EPI Creatinine Equation (2020) Performed By: #### L 500.2500, L100.0100, L501.4021 ####[facility] [address] [place], [address] Glucose [Mass/Vol] 115 mg/dL High 70-99 [facility] Comment on above: Performed By: #### L 500.2500, L100.0100, L501.4021 ####[facility] [address] [place], [address] Potassium [Moles/Vol] 4.0 mmol/L Normal 3.3-5.1 [facility] Comment on above: Performed By: #### L 500.2500, L100.0100, L501.4021 ####[facility] [address] [place], [address] Sodium [Moles/Vol] 141 mmol/L Normal 133-145 [facility] Comment on above: Performed By: #### L 500.2500, L100.0100, L501.4021 ####[facility] [address] [place], [address] Urea nitrogen [Mass/Vol] 5 mg/dL Normal 4-19 [facility] Comment on above: Performed By: #### L 500.2500, L100.0100, L501.4021 ####[facility] [address] [place], [address] CBC W/Diff, Automatedon 10-14 Absolute Lymph 3.71 X10 3/uL Normal 0.83-4.51 [facility] Comment on above: Performed By: #### L 500.2500, L100.0100, L501.4021 ####[facility] [address] [place], [address] Absolute Neut 3.1 X10 3/uL Normal 2.0-7.7 [facility] Comment on above: Performed By: #### L 500.2500, L100.0100, L501.4021 ####[facility] [address] [place], [address] Basophils/100 WBC (Bld) 0.6 % Normal 0-1 [facility] Comment on above: Performed By: #### L 500.2500, L100.0100, L501.4021 ####[facility] [address] [place], [address] Eosinophils/100 WBC (Bld) 2.2 % Normal 0-5 [facility] Comment on above: Performed By: #### L 500.2500, L100.0100, L501.4021 ####[facility] [address] [place], [address] Erythrocyte distribution width (RBC) [Ratio] 12.1 % Normal 11.6-14.6 [facility] Comment on above: Performed By: #### L 500.2500, L100.0100, L501.4021 ####[facility] [address] [place], [address] Hematocrit (Bld) [Volume fraction] 38.4 % Normal 37-47 [facility] Comment on above: Performed By: #### L 500.2500, L100.0100, L501.4021 ####[facility] [address] [place], [address] Hemoglobin (Bld) [Mass/Vol] 13.3 g/dL Normal 12.0-15.0 [facility] Comment on above: Performed By: #### L 500.2500, L100.0100, L501.4021 ####[facility] [address] [place], [address] IG% 0.100 Normal 0.0-0.9 [facility] Comment on above: Result Comment: IG% - Immature Granulocytes (promyelocytes, myelocytes and metamyelocytes) > 1% indicates that a LEFT SHIFT is Present. Performed By: #### L 500.2500, L100.0100, L501.4021 ####[facility] [address] [place], [address] Lymphocytes/100 WBC (Bld) 48.0 % High 19-41 [facility] Comment on above: Performed By: #### L 500.2500, L100.0100, L501.4021 ####[facility] [address] [place], [address] MCH (RBC) [Entitic mass] 30.6 pg Normal 27.0-32.0 [facility] Comment on above: Performed By: #### L 500.2500, L100.0100, L501.4021 ####[facility] [address] [place], [address] MCHC (RBC) [Mass/Vol] 34.6 g/dL Normal 32-36 [facility] Comment on above: Performed By: #### L 500.2500, L100.0100, L501.4021 ####[facility] [address] [place], [address] MCV (RBC) [Entitic vol] 88.5 fL Normal 81-99 [facility] Comment on above: Performed By: #### L 500.2500, L100.0100, L501.4021 ####[facility] [address] [place], [address] Monocytes/100 WBC (Bld) 8.7 % Normal 0-10 [facility] Comment on above: Performed By: #### L 500.2500, L100.0100, L501.4021 ####[facility] [address] [place], [address] Neutrophils/100 WBC (Bld) 40.4 % Low 47-70 [facility] Comment on above: Performed By: #### L 500.2500, L100.0100, L501.4021 ####[facility] [address] [place], [address] Nucleated RBC (Bld) [#/Vol] 0 10*3/uL Normal 0-5 [facility] Comment on above: Performed By: #### L 500.2500, L100.0100, L501.4021 ####[facility] [address] [place], [address] Platelet mean volume (Bld) [Entitic vol] 9.5 fL Normal 6.2-12.0 [facility] Comment on above: Performed By: #### L 500.2500, L100.0100, L501.4021 ####[facility] [address] [place], [address] Platelets (Bld) [#/Vol] 443 10*3/uL Normal 150-450 [facility] Comment on above: Performed By: #### L 500.2500, L100.0100, L501.4021 ####[facility] [address] [place], [address] RBC (Bld) [#/Vol] 4.34 10*6/uL Normal 4.2-5.4 [facility] Comment on above: Performed By: #### L 500.2500, L100.0100, L501.4021 ####[facility] [address] [place], [address] RDW SD 38.7 fl Normal 35.1-43.9 [facility] Comment on above: Performed By: #### L 500.2500, L100.0100, L501.4021 ####[facility] [address] [place], [address] WBC (Bld) [#/Vol] 7.7 10*3/uL Normal 4.4-11.0 [facility] Comment on above: Performed By: #### L 500.2500, L100.0100, L501.4021 ####[facility] [address] [place], [address] Chest PA and Lateralon 11-09 Chest PA and Lateral [facility] Imaging Services [address] [place] [address] Chest PA and Lateral MR#: [id number] Acct: [id number] Name: LILIAM THOMPSON Rep #: [id number] : 1990 F 34 From: Guillaume Parker MD PCP: Dr. Faustnia Carcamo MD Status: REG ER Study: Chest PA and Lateral Date of Exam: 11/09/24 Exam# [id number] Ordering Dr: Lisandro Rachel DO PROCEDURE: CHEST PA AND LATERAL N/A REASON FOR EXAM: CHEST PAIN TECHNIQUE: Frontal and lateral views of the chest. PA and lateral COMPARISON: 07/20/2024 FINDINGS: The lungs appear clear. Pulmonary vascularity appears within limits. No pleural effusion. The cardiac and mediastinal contours appear within limits. The visualized osseous structures appear within limits. RAD/Chest PA and Lateral IMPRESSION: No evidence of acute disease. Reading Location: [id number] CC: Dr. Faustina Carcamo MD; Dr. Lisandro Rachel DO Relief Manager: Signed Normal [facility] Emergency Department Summary on 11-09-2024 Emergency Department Summary [facility] Medical Records Department [address] [place] [id number] Emergency Department Summary 11/09/24 MR#: [id number] Acct: [id number] Name: LILIAM THOMPSON Rep #: [id number] : 1990 34 From: Lisandro Rachel DO PCP: Dr. Faustina Carcamo MD Status:[facility] ER Location: ED HPI History of Present Illness Chief Complaint: General Illness Narrative Narrative: Patient is a 34-year-old female with a past medical history of BMI 53.8, generalized anxiety disorder, POTS, stills disease, panic attack who presents to the emergency department with a chief complaint of diarrhea originally earlier today and not feeling well. She states that as the day progressed she noted that she felt lightheaded despite the triage note saying dizzy she states that she felt lightheaded after clarification. She states that she then checked her blood pressure noted as high therefore she took atenolol and few hours later checked her blood pressure again as well as her heart rate and noted that her heart rate was low in the 40s but her blood pressure was still elevated and called the family doctor line. They advised her to come here to be evaluated given that she is not feeling well. Patient denies any recent sick contacts. Patient denies any recent travel denies any history of blood clots. PFSH PFSH Medical History Morbid (severe) obesity due to excess calories Panic disorder with agoraphobia and moderate panic attacks DARLIN (generalized anxiety disorder) Periodic fever syndrome POTS (postural orthostatic tachycardia syndrome) Home Medications ???Medication ???Instructions ???Recorded ???Last Taken ???Type atenolol 25 mg tablet (Tenormin) 25 mg DAILY 01/18/16 Unknown Histo ry anakinra 100 mg/0.67 mL 100 mg SQ DAILY 03/02/19 Unknown H istory subcutaneous syringe colchicine 0.6 mg capsule 0.6 mg PO DAILY 03/02/19 Unknown H istory fluoxetine 10 mg capsule 20 mg PO DAILY 03/02/19 Unknown Hi story fluvoxamine 100 mg tablet 200 mg PO DAILY 03/02/19 Unknown H istory hydroxychloroquine 200 mg tablet 400 mg PO DAILY 03/02/19 Unknown H istory hydroxyzine pamoate 50 mg capsule 25 - 50 mg PO TID PRN 03/02/19 Un known History Anxiety/Restlessness/ Sleep medroxyprogesterone 150 mg/mL 150 mg IM .[id number] 03/02/19 Unkno wn History intramuscular syringe meloxicam 15 mg tablet 15 mg PO DAILY 03/02/19 Unknown Hi story propranolol 10 mg tablet 10 mg PO DAILY PRN Dizziness 03/02 Unknown History canakinumab (PF) 150 mg/mL subcut 06/07/24 Unknown History subcutaneous solution (Ilaris (PF)) ondansetron 4 mg disintegrating 4 mg PO Q6H PRN nausea and 5 Unknown Rx tablet vomiting #20 tabs Allergy/AdvReac Type Severity Reaction Status Date / Time latex Allergy Hives Verified 07/20/24 12:49 topiramate (From Topamax) AdvReac Other Verified 07/20/24 12:49 Family History Other Lupus Social History Smoking Status: Never smoker ROS ROS ED ROS Narrative Constitutional: Complains lightheadedness as noted above denies fevers, chills, headaches Eyes: Denies changes double vision blurry vision Cardiovascular: Denies chest pain or palpitations Respiratory: Denies shortness of breath Abdomen: Denies abdominal pain : Denies urinary symptoms Neurological: Denies numbness, weakness, tingling Musculoskeletal: Denies back pain Skin: Denies rashes or lesions EXAM Physical Exam Narrative Exam Narrative: General: Patient lying in bed rest currently did not appear to be in acute distress Head: Atraumatic, normocephalic Eyes: PERRL bilateral, EOMI bilateral, no conjunctival injection or Neck: Soft, supple, trachea midline Cardiovascular: Patient was bradycardic with a regular rhythm no murmurs gallops rubs noted Respiratory: Clear to auscultation bilaterally Abdomen: Soft, nondistended, nontender to palpation Extremities: +5/5 strength noted the bilateral upper and lower extremity, radial pulse +2/4 in the bilateral extremities, no pedal edema exam Neurological: Patient following commands knew that she was at [facility] years 2024 Skin: Warm, dry, intact no rashes or lesions noted Const Vital Signs: 11/09/24 00:21 11/09/24 00:21 11/09/24 01:28 Temperature 98.5 F Temperature Source Oral Pulse Rate 83 Respiratory Rate 16 Respiratory Effort Normal Respiratory Pattern Normal Blood Pressure Blood Pressure Mean Pulse Ox 99 99 Oxygen Delivery Method Room Air 11/09/24 02:18 11/09/24 04:06 Temperature Temperature Source Pulse Rate 58 L Respiratory Rate 17 Respiratory Effort Respiratory Pattern Blo (more content not included)... Normal [facility] L499.0042on 11-09-2024 Trop T High Sen < 6 Normal <=14 [facility] Comment on above: Performed By: #### L 499.0042 ####[facility] [address] [place], [address] L499.0043on 11-09-2024 Trop T High Sen Normal <=14 [facility] Comment on above: Result Comment: Canc elled via OM: Order cancelled - Patient discharged Performed By: #### L 499.0043 ####[facility] [address] [place], [address] L501.4021on 11-09-2024 Trop T High Sen < 6 Normal <=14 [facility] Comment on above: Performed By: #### L 500.2500, L100.0100, L501.4021 ####[facility] [address], [address] M100.678on 11-09-2024 M100.678 Pending SARS-CoV-2 (COVID 19) Negative INFLUENZA A Negative INFLUENZA B Negative RSV PCR Negative Normal [facility] Comment on above: Performed By: #### M 100.678 ####[facility] [address] [place], [address] CNOVon 10-31-2024 CNOV Normal [facility] CNPNon 10-29-2024 CNPN Normal [facility] CNOVon 10-24-2024 CNOV Normal [facility] XR WRIST 3V PA/LAT/OBL LTon 10-24-2024 XR WRIST 3V PA/LAT/OBL LT Normal [facility] XR Wrist - left PA and Later al and Obliqueon 10-24-2024 IMPRESSION: No radiographic evidence of acute osseous injury Relief Manager: REUBEN Transcribe Date/Time: Oct 24 2024 12:04P Dictated by : JAMES THURMAN MD This examination was interpreted and the report reviewed and electronically signed by: JAMES THURMAN MD on Oct 24 2024 12:05PM [facility] DIVISION OF RADIOLOGY * * *Final Report* * * DATE OF EXAM: Oct 24 2024 12:00PM WOX 5270 - XR WRIST 3V PA/LAT/OBL LT / PROCEDURE REASON: Injury of left wrist, initial encounter * * * * Physician Interpretation * * * * TITLE: XR WRIST 3V PA/LAT/OBL LT CLINICAL INDICATION: Head injury with pain TECHNIQUE: 3 view radiographic study of the left wrist COMPARISON: Heart radiograph dated 01/07/2021 FINDINGS: No acute fracture or dislocation identified. Joint spaces preserved DIVISION OF RADIOLOGY Provider, [facility] Alfred Oakes - 10/24/2024 * * *Final Report* * * DATE OF EXAM: Oct 24 2024 12:00PM WOX 5270 - XR WRIST 3V PA/LAT/OBL LT / PROCEDURE REASON: Injury of left wrist, initial encounter * * * * Physician Interpretation * * * * TITLE: XR WRIST 3V PA/LAT/OBL LT CLINICAL INDICATION: Head injury with pain TECHNIQUE: 3 view radiographic study of the left wrist COMPARISON: Heart radiograph dated 01/07/2021 FINDINGS: No acute fracture or dislocation identified. Joint spaces preserved IMPRESSION IMPRESSION: No radiographic evidence of acute osseous injury Relief Manager: PSCMargie Transcribe Date/Time: Oct 24 2024 12:04P Dictated by : JAMES THURMAN MD This examination was interpreted and the report reviewed and electronically signed by: JAMES THURMAN MD on Oct 24 2024 12:05PM EST [facility] Radiology Study observation (narrative) [facility] XR Wrist - left PA and Later al and ObliqueOrdered By: [facility] Provider on 10-24-2024 [facility] METHYLMALONIC ACIDon 025 Methylmalonate [Moles/Vol] 0.31 umol/L [facility] - 0.40 umol/L [facility] Comment on above: This test was develo ped, and its performance characteristics determined by the [facility] Department of Pathology and Laboratory Medicine. It has not been cleared or approved by the FDA. The [facility] Department of Pathology and Laboratory Medicine is regulated under CLIA as qualified to perform high-complexity testing. This test is used for clinical purposes. It should not be regarded as investigational or for research. Methylmalonate [Moles/Vol]on 10-19-2024 Interpretation and review of laboratory results Normal [facility] 25(OH)D3 SerPl-mCncon 2024 25-hydroxyvitamin D3 [Mass/Vol] 17.0 ng/mL Low 31.0-80.0 [facility] Comment on above: Order Comment: Speci men Type: BLOOD SPECIMENOrdering Facility: [facility] Address: [facility] [place] [address] Result Comment: Clas sification of 25 [place] Vitamin D status:Deficiency/Insufficiency: < or = 30 ng/ml.Sufficiency/Optimal Levels: 31-80 ng/mLToxicity: > 100 ng/mL.Test performed by chemiluminescent immunoassay. Performed By: #### 1 989-3 ####[facility] LABCLIA [id number] [place] [address] [place] CBC W Auto Differential pane l (Bld)on 10-17-2024 Basophils (Bld) [#/Vol] 0.03 10*3/uL Normal <0.11 [facility] Comment on above: Order Comment: Speci men Type: BLOOD SPECIMENOrdering Facility: [facility] Address: [address] [place] [address] Performed By: #### 4 537-7 ####[facility] LABCLIA [id number] [place] [address] [place]#### 98217-5 ####[facility] LABORATORYCLIA [id number] [place] [address] [place] Basophils/100 WBC (Bld) 0.6 % Normal [facility] Comment on above: Order Comment: Speci men Type: BLOOD SPECIMENOrdering Facility: [facility] Address: [address] [place] [address] Performed By: #### 4 537-7 ####[facility] LABCLIA [id number] [address] [place]#### 18661-3 ####[facility] LABORATORYCLIA [id number] [place] [address] [place] Differential cell count method Nom (Bld) Auto Normal [facility] Comment on above: Order Comment: Speci men Type: BLOOD SPECIMENOrdering Facility: [facility] Address: [address] [place] [address] Performed By: #### 4 537-7 ####[facility] LABCLIA [id number] [place] [address] [place]#### 48202-0 ####[facility] LABORATORYCLIA [id number] [place] [address] [place] Eosinophils (Bld) [#/Vol] 0.13 10*3/uL Normal <0.46 [facility] Comment on above: Order Comment: Speci men Type: BLOOD SPECIMENOrdering Facility: [facility] Address: [address] [place] [address] Performed By: #### 4 537-7 ####[facility] LABCLIA [id number] [address] [place]#### 07776-8 ####[facility] LABORATORYCLIA [id number] [address] [place] [facility] Eosinophils/100 WBC (Bld) 2.4 % Normal [facility] Comment on above: Order Comment: Speci men Type: BLOOD SPECIMENOrdering Facility: [facility] Address: [address] [place] [address] Performed By: #### 4 537-7 ####[facility] LABCLIA [id number] [address] [place]#### 88427-2 ####[facility] LABORATORYCLIA [id number] [address] [place] Erythrocyte distribution width (RBC) [Ratio] 12.2 % Normal 11.5-15.0 [facility] Comment on above: Order Comment: Speci men Type: BLOOD SPECIMENOrdering Facility: [facility] Address: [address] [place] [address] Performed By: #### 4 537-7 ####[facility] LABCLIA [id number] [address] [place]#### 18011-7 ####[facility] LABORATORYCLIA [id number] [address] [place] [facility] Hematocrit (Bld) [Volume fraction] 43.2 % Normal 36.0-46.0 [facility] Comment on above: Order Comment: Speci men Type: BLOOD SPECIMENOrdering Facility: [facility] Address: [address] [place], [place] [address] Performed By: #### 4 537-7 ####[facility] LABCLIA [id number] [place] [address] [place]#### 26234-6 ####[facility] LABORATORYCLIA [id number] [place] [address] [place] Hemoglobin (Bld) [Mass/Vol] 14.3 g/dL Normal 11.5-15.5 [facility] Comment on above: Order Comment: Speci men Type: BLOOD SPECIMENOrdering Facility: [facility] Address: [address] [place] [address] Performed By: #### 4 537-7 ####[facility] LABCLIA [id number] [place] [address] [place]#### 19418-6 ####[facility] LABORATORYCLIA [id number] [place] [address] [place] Immature granulocytes (Bld) [#/Vol] 10*3/uL Normal <0.10 [facility] Comment on above: Order Comment: Speci men Type: BLOOD SPECIMENOrdering Facility: [facility] Address: [address] [place] [address] Performed By: #### 4 537-7 ####[facility] LABCLIA [id number] [place] [address] [place]#### 71763-2 ####[facility] LABORATORYCLIA [id number] [address] [place] Immature granulocytes/100 WBC (Bld) 0.2 % Normal [facility] Comment on above: Order Comment: Speci men Type: BLOOD SPECIMENOrdering Facility: [facility] Address: [address] [place] [address] Performed By: #### 4 537-7 ####[facility] LABCLIA [id number] [place] [address] [place]#### 32489-8 ####[facility] LABORATORYCLIA [id number] [address] [place] Lymphocytes (Bld) [#/Vol] 2.43 10*3/uL Normal 1.00-4.00 [facility] Comment on above: Order Comment: Speci men Type: BLOOD SPECIMENOrdering Facility: [facility] Address: [address] [place] [address] Performed By: #### 4 537-7 ####[facility] LABCLIA [id number] [address] [place]#### 07912-5 ####[facility] LABORATORYCLIA [id number] [address] Lymphocytes/100 WBC (Bld) 44.8 % Normal [facility] Comment on above: Order Comment: Speci men Type: BLOOD SPECIMENOrdering Facility: [facility] Address: [address] [place] [address] Performed By: #### 4 537-7 ####[facility] LABCLIA [id number] [address]#### 32874-5 ####[facility] LABORATORYCLIA [id number] [address] [place] MCH (RBC) [Entitic mass] 30.7 pg Normal 26.0-34.0 [facility] Comment on above: Order Comment: Speci men Type: BLOOD SPECIMENOrdering Facility: [facility] Address: [address] [place] [address] Performed By: #### 4 537-7 ####[facility] LABCLIA [id number] [address] [place]#### 73307-5 ####[facility] LABORATORYCLIA [id number] [address] [place] MCHC (RBC) [Mass/Vol] 33.1 g/dL Normal 30.5-36.0 [facility] Comment on above: Order Comment: Speci men Type: BLOOD SPECIMENOrdering Facility: [facility] Address: [address] [place] [address] Performed By: #### 4 537-7 ####[facility] LABCLIA [id number] [place] [address] [place]#### 39398-2 ####[facility] LABORATORYCLIA [id number] [place] [address] [place] MCV (RBC) [Entitic vol] 92.7 fL Normal 80.0-100.0 [facility] Comment on above: Order Comment: Speci men Type: BLOOD SPECIMENOrdering Facility: [facility] Address: [address] [place] [address] Performed By: #### 4 537-7 ####[facility] LABCLIA [id number] [place] [address] [place]#### 21974-6 ####[facility] LABORATORYCLIA [id number] [address] [place] Monocytes (Bld) [#/Vol] 0.52 10*3/uL Normal <0.87 [facility] Comment on above: Order Comment: Speci men Type: BLOOD SPECIMENOrdering Facility: [facility] Address: [address] [place] [address] Performed By: #### 4 537-7 ####[facility] LABCLIA [id number] [place] [address] [place]#### 16456-5 ####[facility] LABORATORYCLIA [id number] [address] [place] Monocytes/100 WBC (Bld) 9.6 % Normal [facility] Comment on above: Order Comment: Speci men Type: BLOOD SPECIMENOrdering Facility: [facility] Address: [address] [place] [address] Performed By: #### 4 537-7 ####[facility] LABCLIA [id number] [place] [address] [place]#### 70494-8 ####[facility] LABORATORYCLIA [id number] [place] [address] [place] Neutrophils (Bld) [#/Vol] 2.31 10*3/uL Normal 1.45-7.50 [facility] Comment on above: Order Comment: Speci men Type: BLOOD SPECIMENOrdering Facility: [facility] Address: [address] [place] [address] Performed By: #### 4 537-7 ####[facility] LABCLIA [id number] [place] [address] [place]#### 82142-9 ####[facility] LABORATORYCLIA [id number] [place] [address] [place] Neutrophils/100 WBC (Bld) 42.4 % Normal [facility] Comment on above: Order Comment: Speci men Type: BLOOD SPECIMENOrdering Facility: [facility] Address: [address] [place] [address] Performed By: #### 4 537-7 ####[facility] LABCLIA [id number] [place] [address] [place]#### 19965-9 ####[facility] LABORATORYCLIA [id number] [place] [address] [place] Nucleated RBC (Bld) [#/Vol] 10*3/uL Normal <0.01 [facility] Comment on above: Order Comment: Speci men Type: BLOOD SPECIMENOrdering Facility: [facility] Address: [address] [place] [address] Performed By: #### 4 537-7 ####[facility] LABCLIA [id number] [address] [place]#### 99766-4 ####[facility] LABORATORYCLIA [id number] [place] [address] [place] Nucleated RBC/100 WBC (Bld) [Ratio] 0.0 /100 WBC Normal [facility] Comment on above: Order Comment: Speci men Type: BLOOD SPECIMENOrdering Facility: [facility] Address: [address] [place] [address] Performed By: #### 4 537-7 ####[facility] LABCLIA [id number] [place] [address] [place]#### 77450-5 ####[facility] LABORATORYCLIA [id number] [place] [address] [place] Platelet mean volume (Bld) [Entitic vol] 10.0 fL Normal 9.0-12.7 [facility] Comment on above: Order Comment: Speci men Type: BLOOD SPECIMENOrdering Facility: [facility] Address: [address] [place] [address] Performed By: #### 4 537-7 ####[facility] LABCLIA [id number] [address] [place] [facility]#### 45290-8 ####[facility] LABORATORYCLIA [id number] [address] [place] Platelets (Bld) [#/Vol] 423 10*3/uL High 150-400 [facility] Comment on above: Order Comment: Speci men Type: BLOOD SPECIMENOrdering Facility: [facility] Address: [facility] [place] [address] Performed By: #### 4 537-7 ####[facility] LABCLIA [id number] [place] [address] [place]#### 02601-9 ####[facility] LABORATORYCLIA [id number] [place] [address] [place] RBC (Bld) [#/Vol] 4.66 10*6/uL Normal 3.90-5.20 [facility] Comment on above: Order Comment: Speci men Type: BLOOD SPECIMENOrdering Facility: [facility] Address: [address] [place] [address] Performed By: #### 4 537-7 ####[facility] LABCLIA [id number] [place] [address] [place]#### 36883-0 ####[facility] LABORATORYCLIA [id number] [place] [id number] [place] WBC (Bld) [#/Vol] 5.43 10*3/uL Normal 3.70-11.00 [facility] Comment on above: Order Comment: Speci men Type: BLOOD SPECIMENOrdering Facility: [facility] Address: [address] [place] [address] Performed By: #### 4 537-7 ####[facility] LABCLIA [id number] [place] [address] [place]#### 33756-3 ####[facility] LABORATORYCLIA [id number] [place] [address] [place] CRP SerPl-mCncon 10-17-2024 CRP [Mass/Vol] mg/L Normal <0.9 [facility] Comment on above: Order Comment: Speci men Type: BLOOD SPECIMENOrdering Facility: [facility] Address: [address] [place] [address] Performed By: #### 1 988-5, 2132-9 ####[facility] LABORATORYCLIA [id number] [place] [address] [place] Cobalamin (Vitamin B12) [Mas s/Vol]on 10-17-2024 Interpretation and review of laboratory results Normal [facility] Comprehensive metabolic 2000 panelon 10-17-2024 Albumin [Mass/Vol] 4.2 g/dL 3.9 - 4.9 g/dL [facility] ALP [Catalytic activity/Vol] 73 U/L 34 - 123 U/L [facility] ALT With P-5'-P [Catalytic activity/Vol] 32 U/L 7 - 38 U/L [facility] Anion gap [Moles/Vol] 15 mmol/L 8 - 15 mmol/L [facility] AST With P-5'-P [Catalytic activity/Vol] 32 U/L 13 - 35 U/L [facility] Bilirubin [Mass/Vol] 0.3 mg/dL 0.2 - 1.3 mg/dL [facility] Calcium [Mass/Vol] 9.1 mg/dL 8.5 - 10.2 mg/dL [facility] Chloride [Moles/Vol] 108 mmol/L High 98 - 107 mmol/L [facility] CO2 [Moles/Vol] 21 mmol/L Low 22 - 30 mmol/L [facility] Creatinine [Mass/Vol] 0.58 mg/dL 0.58 - 0.96 mg/dL [facility] GFR/1.73 sq M.predicted among non-blacks MDRD (S/P/Bld) [Vol rate/Area] 123 mL/min/{1.73_m2} - PINF [facility] Comment on above: Estimated Glomerular Filtration Rate (eGFR) is calculated using the 2020 CKD-EPI creatinine equation. This equation utilizes serum creatinine, sex, and age as parameters. The creatinine assay has traceable calibration to isotope dilution-mass spectrometry. Refer to KDIGO guidelines for clinical interpretation. In patients with unstable renal function, e.g. those with acute kidney injury, the eGFR may not accurately reflect actual GFR. Glucose [Mass/Vol] 107 mg/dL High 74 - 99 mg/dL [facility] Comment on above: The [place] Diab[employer] Association (ADA) provides guidance for cutoff values [...] Standards of Medical Care in Diabetes 2016, [place] [employer]. Diabetes Care. 2016.39(Suppl 1). Interpretation and review of laboratory results Abnormal [facility] Potassium [Moles/Vol] 4.4 mmol/L 3.7 - 5.1 mmol /L [facility] Protein [Mass/Vol] 6.9 g/dL 6.3 - 8.0 g/dL [facility] Sodium [Moles/Vol] 144 mmol/L 136 - 144 mmol/L [facility] Urea nitrogen [Mass/Vol] 7 mg/dL 7 - 21 mg/dL [facility] Albumin [Mass/Vol] 4.2 g/dL Normal 3.9-4.9 [facility] Comment on above: Order Comment: Speci men Type: BLOOD SPECIMENOrdering Facility: [facility] Address: [address] [place] [address] Performed By: #### 3 051-0, 82889-6, 3024-7, 3016-3 ####[facility] LABORATORYCLIA [id number] [place] [address] [place] ALP [Catalytic activity/Vol] 73 U/L Normal 34-123 [facility] Comment on above: Order Comment: Hattiei nathaniel Type: BLOOD SPECIMENOrdering Facility: [facility] Address: [address] [place] [address] Performed By: #### 3 051-0, 51224-9, 3024-7, 3016-3 ####[facility] LABORATORYCLIA [id number] [place] [address] [place] ALT With P-5'-P [Catalytic activity/Vol] 32 U/L Normal 7-38 [facility] Comment on above: Order Comment: Speci men Type: BLOOD SPECIMENOrdering Facility: [facility] Address: [address] [place] [address] Performed By: #### 3 051-0, 34311-3, 3024-7, 3016-3 ####[facility] LABORATORYCLIA [id number] [place] [address] [place] Anion gap [Moles/Vol] 15 mmol/L Normal 8-15 [facility] Comment on above: Order Comment: Speci men Type: BLOOD SPECIMENOrdering Facility: [facility] Address: [address] [place] [address] Performed By: #### 3 051-0, 90185-5, 3024-02, 3 ####[facility] LABORATORYCLIA [id number] [place] [address] [place] AST With P-5'-P [Catalytic activity/Vol] 32 U/L Normal 13-35 [facility] Comment on above: Order Comment: Speci men Type: BLOOD SPECIMENOrdering Facility: [facility] Address: [address] [place] [address] Performed By: #### 3 051-0, 29790-6, 3024-02, 3 ####[facility] LABORATORYCLIA [id number] [place] [address] [place] Bilirubin [Mass/Vol] 0.3 mg/dL Normal 0.2-1.3 [facility] Comment on above: Order Comment: Speci men Type: BLOOD SPECIMENOrdering Facility: [facility] Address: [address] [place] [address] Performed By: #### 3 051-0, 12113-4, 3024-02, 3 ####[facility] LABORATORYCLIA [id number] [place] [address] [place] Calcium [Mass/Vol] 9.1 mg/dL Normal 8.5-10.2 [facility] Comment on above: Order Comment: Speci men Type: BLOOD SPECIMENOrdering Facility: [facility] Address: [address] [place] [address] Performed By: #### 3 051-0, 26893-1, 3024-02, 3 ####[facility] LABORATORYCLIA [id number] [place] [address] [place] Chloride [Moles/Vol] 108 mmol/L High 98-107 [facility] Comment on above: Order Comment: Speci men Type: BLOOD SPECIMENOrdering Facility: [facility] Address: [address] [place] [address] Performed By: #### 3 051-0, 94713-9, 302-7, 3 ####[facility] LABORATORYCLIA [id number] [address] CO2 [Moles/Vol] 21 mmol/L Low 22-30 [facility] Comment on above: Order Comment: Speci men Type: BLOOD SPECIMENOrdering Facility: [facility] Address: [address] [place] [address] Performed By: #### 3 051-0, 17449-7, 7, 3 ####[facility] LABORATORYIA [id number] [address] Creatinine [Mass/Vol] 0.58 mg/dL Normal 0.58-0.96 [facility] Comment on above: Order Comment: Speci men Type: BLOOD SPECIMENOrdering Facility: [facility] Address: [address] [place] [address] Performed By: #### 3 051-0, 64677-6, 7, 3 ####[facility] LABORATORYIA [id number] [address] Creatinine and Glomerular filtration rate.predicted panel (S/P/Bld) 123 mL/min/1.73m??? Normal >=60 [facility] Comment on above: Order Comment: Speci men Type: BLOOD SPECIMENOrdering Facility: [facility] Address: [address] [place] [address] Result Comment: Imleda mated Glomerular Filtration Rate (eGFR) is calculated [...] reflect actual GFR. Performed By: #### 3 051-0, 23721-1, 3024-7, 3016-3 ####[facility] LABORATORYCLIA [id number] [place] [address] [place] Glucose [Mass/Vol] 107 mg/dL High 74-99 [facility] Comment on above: Order Comment: Speci men Type: BLOOD SPECIMENOrdering Facility: [facility] Address: [address] [place] [address] Result Comment: The [place] Diabetes Association (ADA) provides guidance for cutoff [...] Standards of Medical Care in Diabetes 2016, [place] [employer]. Diabetes Care. 2016.39(Suppl 1). Performed By: #### 3 051-0, 22362-9, 3023-7, 6-3 ####[facility] LABORATORYCLIA [id number] [place] [address] [place] Potassium [Moles/Vol] 4.4 mmol/L Normal 3.7-5.1 [facility] Comment on above: Order Comment: Speci men Type: BLOOD SPECIMENOrdering Facility: [facility] Address: [address] [place] [address] Performed By: #### 3 051-0, 41650-2, 3023-7, 6-3 ####[facility] LABORATORYCLIA [id number] [place] [id number] [place] Protein [Mass/Vol] 6.9 g/dL Normal 6.3-8.0 [facility] Comment on above: Order Comment: Hattiei men Type: BLOOD SPECIMENOrdering Facility: [facility] Address: [address] [place] [address] Performed By: #### 3 051-0, 00569-1, 3024-7, 3016-3 ####[facility] LABORATORYCLIA [id number] [place] [address] [place] [facility] Sodium [Moles/Vol] 144 mmol/L Normal 136-144 [facility] Comment on above: Order Comment: Speci men Type: BLOOD SPECIMENOrdering Facility: [facility] Address: [address] [place] [address] Performed By: #### 3 051-0, 17599-4, 3024-7, 3016-3 ####[facility] CENTERCLIA [id number] [place] [id number] [place] [facility] Urea nitrogen [Mass/Vol] 7 mg/dL Normal 7-21 [facility] Comment on above: Order Comment: Speci men Type: BLOOD SPECIMENOrdering Facility: [facility] Address: [address] [place] [address] Performed By: #### 3 051-0, 64689-5, 3024-7, 3016-3 ####[facility]ENTERIA [id number] [place] [id number] [place] ESR Westergren method (Bld) [Velocity]on 10-17-2024 ESR (Bld) [Velocity] 5 mm/h Normal 0-20 [facility] Comment on above: Order Comment: Speci men Type: BLOOD SPECIMENOrdering Facility: [facility] Address: [address] [place] [address] Performed By: #### 4 537-7 ####[facility] LABCLIA [id number] [place] [address] [place]#### 00203-1 ####[facility] LABORATORYCLIA [id number] [place] [address] [place] Free T3 [Mass/Vol]on 025 Interpretation and review of laboratory results Normal [facility] Methylmalonate SerPl-sCncon 10-17-2024 Methylmalonate [Moles/Vol] 0.31 umol/L Normal <=0.40 [facility] Comment on above: Order Comment: Speci men Type: BLOOD SPECIMENOrdering Facility: [facility] Address: [address] [place] [address] Result Comment: This test was developed, and its performance characteristics determined by the [facility] Department of Pathology and Laboratory Medicine. It has not been cleared or approved by the FDA. The [facility] Department of Pathology and Laboratory Medicine is regulated under CLIA as qualified to perform high-complexity testing. This test is used for clinical purposes. It should not be regarded as investigational or for research. Performed By: #### 1 3964-2 ####[facility] LABCLIA [id number] [place] [address] [place] No Panel Informationon 10-17 Interpretation and review of laboratory results Normal [facility] T3, FREEon 10-17-2024 Free T3 [Mass/Vol] 3.7 pg/mL 2.3 - 4.1 pg/mL C leveland [facility] T3Free SerPl-mCncon 10-18-19 25 Free T3 [Mass/Vol] 3.7 pg/mL Normal 2.3-4.1 [facility] Comment on above: Order Comment: Speci men Type: BLOOD SPECIMENOrdering Facility: [facility] Address: [address] [place] [address] Performed By: #### 3 051-0, 55184-8, 3024-7, 3016-3 ####[facility] LABORATORYCLIA [id number] [address] [place] T4 FREE/FREE THYROXINEon Free T4 [Mass/Vol] 1.2 ng/dL 0.9 - 1.7 ng/dL C leveland [facility] T4 Free SerPl-mCncon 025 Free T4 [Mass/Vol] 1.2 ng/dL Normal 0.9-1.7 [facility] Comment on above: Order Comment: Speci men Type: BLOOD SPECIMENOrdering Facility: [facility] Address: [address] [place] [address] Performed By: #### 3 051-0, 64388-5, 3024-7, 6-3 ####[facility] LABORATORYCLIA [id number] [place] [address] [place] THYROID STIMULATING HORMONEo n 10-17-2024 TSH Qn 2.71 m[IU]/L [facility] Comment on above: If the patient is pr egnant, TSH reference range varies by gestational period: First Trimester (weeks 9-12): 0.180-2.990 mIU/L Second Trimester: 0.110-3.980 mIU/L Third Trimester: 0.480-4.710 mIU/L Mark Cheng et al. A Practical Approach for the Verifications and Determination of Site- and Trimester-Specific Reference Intervals for Thyroid Function tests in . Thyroid, 2019:29:3:412-420. Rickey Perez et al. 2017 Guidelines of the [place] Thyroid Association for the Diagnosis and Management of Thyroid Disease during and the . Thyroid, 2017:27:3:315-389. TSH SerPl-aCncon 10-17-2024 TSH Qn 2.710 m[IU]/L Normal 0.270-4.200 [facility] Comment on above: Order Comment: Speci men Type: BLOOD SPECIMENOrdering Facility: [facility] Address: [facility] [place] [address] Result Comment: If t he patient is , TSH reference range varies by gestational period:First Trimester (weeks 9-12): 0.180-2.990 mIU/LSecond Trimester: 0.110-3.980 mIU/LThird Trimester: 0.480-4.710 mIU/LDkedar Cheng et al. A Practical Approach for the Verifications and Determination of Site- and Trimester-Specific Reference Intervals for Thyroid Function tests in . Thyroid, 2019:29:3:412-420. Rickey Perez et al. 2017 Guidelines of the [place] Thyroid Association for the Diagnosis and Management of Thyroid Disease during and the . Thyroid, 2017:27:3:315-389. Performed By: #### 3 051-0, 30580-3, 3024-7, 6-3 ####[facility] LABORATORYCLIA [id number] [place] [address] [place] VITAMIN B12on 10-17-2024 Cobalamin (Vitamin B12) [Mass/Vol] 271 pg/mL 232 - 1245 pg/mL [facility] Vit B12 SerPl-mCncon 025 Cobalamin (Vitamin B12) [Mass/Vol] 271 pg/mL Normal 232-1245 [facility] Comment on above: Order Comment: Speci men Type: BLOOD SPECIMENOrdering Facility: [facility] Address: [facility] [place] [address] Performed By: #### 1 988-5, 2132-9 ####[facility] LABORATORYCLIA [id number] [place] [id number] [facility] CNOVon 10-16-2024 CNOV Normal [facility] CNOVon 09-25-2024 CNOV Normal [facility] XR CHEST 2V FRONTAL/LATon XR CHEST 2V FRONTAL/LAT Normal [facility] XR Chest PA and Lateralon IMPRESSION: No acute radiographic abnormality. Relief Manager: PSCB Transcribe Date/Time: Sep 25 2024 9:31A Dictated by : JONATAN RENEE MD This examination was interpreted and the report reviewed and electronically signed by: JONATAN RENEE MD on Sep 25 2024 9:31AM [facility] DIVISION OF RADIOLOGY * * *Final Report* * * DATE OF EXAM: Sep 25 2024 9:29AM WOX 5291 - XR CHEST 2V FRONTAL/LAT / PROCEDURE REASON: multiple diagnoses * * * * Physician Interpretation * * * * EXAMINATION: CHEST RADIOGRAPH (2 VIEW FRONTAL & LATERAL) CLINICAL HISTORY: Acute cough URI, acute MQ: XC2_6 EXAM DATE/TIME: 09/25/2024 9:29 AM COMPARISON: Chest x-ray of 04/02/2024 RESULT: Lines, tubes, and devices: None. Lungs and pleura: No consolidation. No lung mass. No pleural effusion. No pneumothorax. Cardiomediastinal silhouette: Normal cardiomediastinal silhouette. Bones and soft tissues: Unremarkable. DIVISION OF RADIOLOGY Provider, Shirin Alfred Oakes - 09/25/2024 * * *Final Report* * * DATE OF EXAM: Sep 25 2024 9:29AM WOX 5291 - XR CHEST 2V FRONTAL/LAT / PROCEDURE REASON: multiple diagnoses * * * * Physician Interpretation * * * * EXAMINATION: CHEST RADIOGRAPH (2 VIEW FRONTAL & LATERAL) CLINICAL HISTORY: Acute cough URI, acute MQ: XC2_6 EXAM DATE/TIME: 09/25/2024 9:29 AM COMPARISON: Chest x-ray of 04/02/2024 RESULT: Lines, tubes, and devices: None. Lungs and pleura: No consolidation. No lung mass. No pleural effusion. No pneumothorax. Cardiomediastinal silhouette: Normal cardiomediastinal silhouette. Bones and soft tissues: Unremarkable. IMPRESSION IMPRESSION: No acute radiographic abnormality. Relief Manager: REUBEN Transcribe Date/Time: Sep 25 2024 9:31A Dictated by : JONATAN RENEE MD This examination was interpreted and the report reviewed and electronically signed by: JONATAN RENEE MD on Sep 25 2024 9:31AM EST [facility] Radiology Study observation (narrative) [facility] XR Chest PA and LateralOrder ed By: Ccf Provider on 09-25-2024 [facility] CNPNon 09-06-2024 CNPN Normal [facility] CNPNon 07-25-2024 CNPN Normal [facility] 12 Lead EKGon 07-20-2024 12 Lead EKG [facility] Cardiovascular Services [address] [place] [address] 12 Lead EKG 07/20/24 1256 MR#: [id number] Acct: [id number] Name: LILIAM THOMPSON Rep #: [id number] : 1990 33 From: Selma Jackson MD Attending Dr: Status: DEP ER Ordering Dr: Nicholas Santiago DO Date: 07/20/24 Location: ED Sex: F C Admitted: Test Reason : CP Blood Pressure : */* mmHG Vent. Rate : 99 BPM Atrial Rate : 99 BPM P-R Int : 144 ms QRS Dur : 70 ms QT Int : 322 ms P-R-T Axes : 51 38 24 degrees QTcB Int : 413 ms Normal sinus rhythm Nonspecific T wave abnormality Abnormal ECG Confirmed by Selma Jackson ([id number]), book or script editor BLAKE MEJÍA ([id number]) on 07/23/2024 6:54:04 AM Referred By: Confirmed By: Selma Jackson 07/23/2454 Date Selma Jackson MD CC: Dr. Nicholas Santiago DO; Dr. Faustina Carcamo MD Signed Normal [facility] Basic Metabolic Profile (BMP )on 07-20-2024 BUN/CRE 14.3 RATIO Normal 10-20 [facility] Comment on above: Order Comment: 1Y Performed By: #### L 500.2500, L501.5425, L100.0100 ####[facility] [address] [place], [address] CA,Total 8.9 mg/dL Normal 8.5-10.1 [facility] Comment on above: Order Comment: 1Y Performed By: #### L 500.2500, L501.5425, L100.0100 ####[facility] [address] [place], [address] Chloride [Moles/Vol] 109 mmol/L High 98-107 [facility] Comment on above: Order Comment: 1Y Performed By: #### L 500.2500, L501.5425, L100.0100 ####[facility] [address] [place], [address] CO2 [Moles/Vol] 25.0 mmol/L Normal 21.0-32.0 [facility] Comment on above: Order Comment: 1Y Performed By: #### L 500.2500, L501.5425, L100.0100 ####[facility] [address] [place], [address] Creatinine [Mass/Vol] 0.63 mg/dL Normal 0.55-1.02 [facility] Comment on above: Order Comment: 1Y Result Comment: The validity of the calculated GFR GFRAA in patients over 70 years has not been determined. Clinical correlation is essential. Performed By: #### L 500.2500, L501.5425, L100.0100 ####[facility] [address] [place], [address] ECRCL 158.53 ml/min Normal [facility] Comment on above: Order Comment: 1Y Performed By: #### L 500.2500, L501.5425, L100.0100 ####[facility] [address] [place], [address] EST GFR - AA 141 mL/min Normal >60 [facility] Comment on above: Order Comment: 1Y Result Comment: Afri can [place] GFR Calc Performed By: #### L 500.2500, L501.5425, L100.0100 ####[facility] [address] [place], [address] GAP 6 Normal 5-15 [facility] Comment on above: Order Comment: 1Y Performed By: #### L 500.2500, L501.5425, L100.0100 ####[facility] [address] [place], [address] GFR/1.73 sq M.predicted among non-blacks MDRD (S/P/Bld) [Vol rate/Area] 117 mL/min/{1.73_m2} Normal >60 [facility] Comment on above: Order Comment: 1Y Result Comment: Non- GFR Calc Performed By: #### L 500.2500, L501.5425, L100.0100 ####[facility] [address] [place], [address] Glucose [Mass/Vol] 116 mg/dL High 74-106 [facility] Comment on above: Order Comment: 1Y Result Comment: Fast ing Glucose result from 100 to 125 mg/dL suggests IMPAIRED HOMEOSTASIS per A.D.A. criteria. Performed By: #### L 500.2500, L501.5425, L100.0100 ####[facility] [address] [place], [address] Potassium [Moles/Vol] 4.0 mmol/L Normal 3.5-5.1 [facility] Comment on above: Order Comment: 1Y Performed By: #### L 500.2500, L501.5425, L100.0100 ####[facility] [address] [place], [address] Sodium [Moles/Vol] 139 mmol/L Normal 136-145 [facility] Comment on above: Order Comment: 1Y Performed By: #### L 500.2500, L501.5425, L100.0100 ####[facility] [address] [place], [address] Urea nitrogen [Mass/Vol] 9 mg/dL Normal 7-18 [facility] Comment on above: Order Comment: 1Y Performed By: #### L 500.2500, L501.5425, L100.0100 ####[facility] [address] [place], [address] CBC W/Diff, Automatedon 12-0 6-4 Absolute Lymph 2.16 X10 3/uL Normal 0.83-4.51 [facility] Comment on above: Performed By: #### L 500.2500, L501.5425, L100.0100 ####[facility] [address] [place], [address] Absolute Neut 3.0 X10 3/uL Normal 2.0-7.7 [facility] Comment on above: Performed By: #### L 500.2500, L501.5425, L100.0100 ####[facility] [address] [place], [address] Basophils/100 WBC (Bld) 0.5 % Normal 0-1 [facility] Comment on above: Performed By: #### L 500.2500, L501.5425, L100.0100 ####[facility] [address] [place], [address] Eosinophils/100 WBC (Bld) 0.5 % Normal 0-5 [facility] Comment on above: Performed By: #### L 500.2500, L501.5425, L100.0100 ####[facility] [address] [place], [address] Erythrocyte distribution width (RBC) [Ratio] 12.4 % Normal 11.6-14.6 [facility] Comment on above: Performed By: #### L 500.2500, L501.5425, L100.0100 ####[facility] [address] [place], [address] Hematocrit (Bld) [Volume fraction] 39.3 % Normal 37-47 [facility] Comment on above: Performed By: #### L 500.2500, L501.5425, L100.0100 ####[facility] [address] [place], [address] Hemoglobin (Bld) [Mass/Vol] 13.1 g/dL Normal 12.0-15.0 [facility] Comment on above: Performed By: #### L 500.2500, L501.5425, L100.0100 ####[facility] [address] [place], [address] IG% 0.200 Normal 0.0-0.9 [facility] Comment on above: Result Comment: IG% - Immature Granulocytes (promyelocytes, myelocytes and metamyelocytes) > 1% indicates that a LEFT SHIFT is Present. Performed By: #### L 500.2500, L501.5425, L100.0100 ####[facility] [address] [place], [address] Lymphocytes/100 WBC (Bld) 37.6 % Normal 19-41 [facility] Comment on above: Performed By: #### L 500.2500, L501.5425, L100.0100 ####[facility] [address] [place], [address] MCH (RBC) [Entitic mass] 30.8 pg Normal 27.0-32.0 [facility] Comment on above: Performed By: #### L 500.2500, L501.5425, L100.0100 ####[facility] [address] [place], [address] MCHC (RBC) [Mass/Vol] 33.3 g/dL Normal 32-36 [facility] Comment on above: Performed By: #### L 500.2500, L501.5425, L100.0100 ####[facility] [address] [place], [address] MCV (RBC) [Entitic vol] 92.5 fL Normal 81-99 [facility] Comment on above: Performed By: #### L 500.2500, L501.5425, L100.0100 ####[facility] [address] [place], [address] Monocytes/100 WBC (Bld) 9.6 % Normal 0-10 [facility] Comment on above: Performed By: #### L 500.2500, L501.5425, L100.0100 ####[facility] [address] [place], [address] Neutrophils/100 WBC (Bld) 51.6 % Normal 47-70 [facility] Comment on above: Performed By: #### L 500.2500, L501.5425, L100.0100 ####[facility] [address] [place], [address] Nucleated RBC (Bld) [#/Vol] 0 10*3/uL Normal 0-5 [facility] Comment on above: Performed By: #### L 500.2500, L501.5425, L100.0100 ####[facility] [address] [place], [address] Platelet mean volume (Bld) [Entitic vol] 9.0 fL Normal 6.2-12.0 [facility] Comment on above: Performed By: #### L 500.2500, L501.5425, L100.0100 ####[facility] [address] [place], [address] Platelets (Bld) [#/Vol] 411 10*3/uL Normal 150-450 [facility] Comment on above: Performed By: #### L 500.2500, L501.5425, L100.0100 ####[facility] [address] [place], [address] RBC (Bld) [#/Vol] 4.25 10*6/uL Normal 4.2-5.4 [facility] Comment on above: Performed By: #### L 500.2500, L501.5425, L100.0100 ####[facility] [address] [place], [address] RDW SD 42.0 fl Normal 35.1-43.9 [facility] Comment on above: Performed By: #### L 500.2500, L501.5425, L100.0100 ####[facility] [address] [place], [address] WBC (Bld) [#/Vol] 5.7 10*3/uL Normal 4.4-11.0 [facility] Comment on above: Performed By: #### L 500.2500, L501.5425, L100.0100 ####[facility] [address] [place], [address] Chest 1 View (Portable)on Chest 1 View (Portable) [facility] Imaging Services [address] [place] [address] Chest 1 View (Portable) MR#: [id number] Acct: [id number] Name: LILIAM THOMPSON Rep #: [id number] : 1990 F 33 From: Milo cortez MD PCP: Dr. Faustina Carcamo MD Status: REG ER Study: Chest 1 View (Portable) Date of Exam: 07/20/24 Exam# [id number] Ordering Dr: Nicholas Santiago DO [id number] STUDY: X-RAY CHEST REASON FOR EXAM: Female, 33 years old. Chest pain TECHNIQUE: Single AP portable view of the chest. COMPARISON: Comparison is made with prior study June 07, 2024. FINDINGS: The lungs are clear and expanded. There is no demonstrated pleural abnormality. Normal size heart. Normal mediastinum and lo. Normal visualized pulmonary arteries. Normal visualized aortic arch and descending thoracic aorta. Normal visualized thoracic spine. Normal visualized ribs, clavicles, and shoulders. There is no demonstrated abnormality of the visualized soft tissue structures of the upper abdomen. RAD/Chest 1 View (Portable) IMPRESSION: Normal x-ray examination of the chest. Electronically Signed: Milo Mayer MD at 13:55 EST , CC: Dr. Nicholas Santiago DO; Dr. Faustina Carcamo MD Relief Manager: Signed Normal [facility] Emergency Department Summary on 07-20-2024 Emergency Department Summary [facility] Medical Records Department [address] [place] [address] Emergency Department Summary 07/20/24 MR#: [id number] Acct: [id number] Name: LILIAM THOMPSON Rep #: [id number] : 1990 33 From: Nicholas Santiago DO PCP: Dr. Faustina Carcamo MD Status:DEP ER Location: ED HPI History of Present Illness Chief Complaint: Chest Pain Narrative Narrative: 33-year-old female with PMH of POTS, stills disease was at the dentist and had epinephrine injected in preparation for a root canal and states 2 minutes after injection she developed sharp chest pain in the left midsternal area rating towards her shoulder with nausea. The sharp chest pain lasted about 10 minutes it is now a dull ache. The dentist did not continue with the procedure. She has no cardiac history. She does not smoke. No history of DVT/PE. [facility] Medical History Morbid (severe) obesity due to excess calories Panic disorder with agoraphobia and moderate panic attacks DARLIN (generalized anxiety disorder) Periodic fever syndrome POTS (postural orthostatic tachycardia syndrome) Home Medications ???Medication ???Instructions ???Recorded ???Last Taken ???Type atenolol 25 mg tablet (Tenormin) 25 mg DAILY 01/18/16 Unknown History anakinra 100 mg/0.67 mL 100 mg SQ DAILY 03/02/19 Unknown History subcutaneous syringe colchicine 0.6 mg capsule 0.6 mg PO DAILY 03/02/19 Unknown History fluoxetine 10 mg capsule 20 mg PO DAILY 03/02/19 Unknown History fluvoxamine 100 mg tablet 200 mg PO DAILY 03/02/19 Unknown History hydroxychloroquine 200 mg tablet 400 mg PO DAILY 03/02/19 Unknown History hydroxyzine pamoate 50 mg capsule 25 - 50 mg PO TID PRN 03/02/19 Unknown History Anxiety/Restlessness/ Sleep medroxyprogesterone 150 mg/mL 150 mg IM .[id number] 03/02/19 Unknown History intramuscular syringe meloxicam 15 mg tablet 15 mg PO DAILY 03/02/19 Unknown History propranolol 10 mg tablet 10 mg PO DAILY PRN Dizziness 03/02/19 Unknown History canakinumab (PF) 150 mg/mL subcut 06/07/24 Unknown History subcutaneous solution (Ilaris (PF)) Allergy/AdvReac Type Severity Reaction Status Date / Time latex Allergy Hives Verified 07/20/24 12:49 topiramate (From Topamax) AdvReac Other Verified 07/20/24 12:49 Family History Other Lupus Social History Smoking Status: Never smoker ROS ROS ED ROS Narrative Constitutional: Negative for fever, chills, malaise. CVS: Positive for chest pain. Negative for palpitations, syncope. Respiratory: Negative for shortness of breath, cough. GI: Negative for abdominal pain, vomiting. EXAM Physical Exam Narrative Exam Narrative: CONST: Patient sitting in no acute distress. EYES: Normal inspection. NECK: Normal inspection. RESP: No respiratory distress, CTAB. CVS: Regular rate and rhythm, no murmur, no gallop. ABD: Soft and nontender, no guarding or rebound, nondistended. SKIN: Color normal, no rash, warm, dry, intact. EXTREMITIES: Normal appearance, no pedal edema. NEURO: Alert and answering questions appropriately. PSYCH: Normal affect. Const Vital Signs: 07/20/24 12:47 07/20/24 13:31 07/20/24 13:37 Temperature 98.2 F Temperature Source Oral Pulse Rate 106 H Respiratory Rate 16 Respiratory Effort Normal Blood Pressure 181/118 H Blood Pressure Mean 139 Pulse Ox 98 97 Oxygen Delivery Method Room Air Room Air 07/20/24 13:47 07/20/24 14:00 07/20/24 15:36 Temperature 98.2 F Temperature Source Pulse Rate 96 96 87 Respiratory Rate 13 13 16 Respiratory Effort Blood Pressure 141/110 H 141/110 H 140/99 H Blood Pressure Mean 120 120 112 Pulse Ox 98 98 99 Oxygen Delivery Method Room Air Room Air Physical Exam Const Vital Signs: 07/20/24 12:47 07/20/24 13:31 07/20/24 13:37 Temperature 98.2 F Temperature Source Oral Pulse Rate 106 H Respiratory Rate 16 Respiratory Effort Normal Blood Pressure 181/118 H Blood Pressure Mean 139 Pulse Ox 98 97 Oxygen Delivery Method Room Air Room Air 07/20/24 13:47 07/20/24 14:00 07/20/24 15:36 Temperature 98.2 F Temperature Source Pulse Rate 96 96 87 Respiratory Rate 13 13 16 Respiratory Effort Blood Pressure 141/110 H 141/110 H 140/99 H Blood Pressure Mean 120 120 112 Pulse Ox 98 98 99 Oxygen Delivery Method Room Air Room Air MDM MDM MDM Narrative Medical decision making narrative: Patient got an oral epinephrine injection at the dentist and developed chest tightness and palpitations which have now improved. Initially she was hypertensive and tachycardic as (more content not included)... Normal [facility] L501.5425on 07-20-2024 TROPONIN-I HS 4 pg/mL Normal 3.0-54.0 [facility] Comment on above: Order Comment: 1Y Result Comment: Plea se Note: New Test Units and Gender Specific Reference Ranges. For more information see Policy Stat Procedure [place] High Sensitivity Troponin (TNIH) and attachments. Performed By: #### L 500.2500, L501.5425, L100.0100 ####[facility] [address] [facility] [place], [address] CNPNon 07-19-2024 CNPN Normal [facility] CNOVon 07-11-2024 CNOV Normal [facility] CNOVon 07-04-2024 CNOV Normal [facility] CNPNon 06-14-2024 CNPN Normal [facility] 12 Lead EKGon 06-07-2024 12 Lead EKG [facility] Cardiovascular Services [address] [place] [address] 12 Lead EKG 06/07/24 0146 MR#: [id number] Acct: [id number] Name: LILIAM THOMPSON Rep #: [id number] : 1990 33 From: Oziel Nash MD Attending Dr: Status: DEP ER Ordering Dr: Ermias Kelly MD Date: 06/07/24 Location: ED Sex: F C Admitted: Test Reason : CP Blood Pressure : / mmHG Vent. Rate : 127 BPM Atrial Rate : 127 BPM P-R Int : 144 ms QRS Dur : 070 ms QT Int : 294 ms P-R-T Axes : 043 032 012 degrees QTc Int : 427 ms Sinus tachycardia with frequent Premature ventricular complexes Nonspecific T wave abnormality Abnormal ECG Confirmed by JOVITA PEÑA, OZIEL ([id number]), book or script editor IRENE HERRERA ([id number]) on 06/07/2024 9:28:37 AM Referred By: AR Confirmed By:OZIEL NASH MD 06/07/24927 Date Oziel Nash MD CC: Dr. Ermias Kelly MD; Dr. Faustina Carcamo MD Signed Normal [facility] Basic Metabolic Profile (BMP )on 06-07-2024 BUN/CRE 11.5 RATIO Normal 06-03 [facility] Comment on above: Order Comment: 1 Y Performed By: #### L 300.8000, L100.0100, L500.2500, L501.5425 #### [facility] [address] [place], [address] CA,Total 9.2 mg/dL Normal 8.5-10.1 [facility] Comment on above: Order Comment: 1 Y Performed By: #### L 300.8000, L100.0100, L500.2500, L501.5425 #### [facility] [address] [place], [address] Chloride [Moles/Vol] 111 mmol/L High 98-107 [facility] Comment on above: Order Comment: 1 Y Performed By: #### L 300.8000, L100.0100, L500.2500, L501.5425 #### [facility] [address] [place], [address] CO2 [Moles/Vol] 22.0 mmol/L Normal 21.0-32.0 [facility] Comment on above: Order Comment: 1 Y Performed By: #### L 300.8000, L100.0100, L500.2500, L501.5425 #### [facility] [address] [place], [address] Creatinine [Mass/Vol] 0.61 mg/dL Normal 0.55-1.02 [facility] Comment on above: Order Comment: 1 Y Result Comment: The validity of the calculated GFR GFRAA in patients over 70 years has not been determined. Clinical correlation is essential. Performed By: #### L 300.8000, L100.0100, L500.2500, L501.5425 #### [facility] [address] [place], [address] ECRCL 163.15 ml/min Normal [facility] Comment on above: Order Comment: 1 Y Performed By: #### L 300.8000, L100.0100, L500.2500, L501.5425 #### [facility] [address] [place], [address] EST GFR - AA 147 mL/min Normal >60 [facility] Comment on above: Order Comment: 1 Y Result Comment: Afri can [place] GFR Calc Performed By: #### L 300.8000, L100.0100, L500.2500, L501.5425 #### [facility] [address] [place], [address] GAP 6 Normal 5-15 [facility] Comment on above: Order Comment: 1 Y Performed By: #### L 300.8000, L100.0100, L500.2500, L501.5425 #### [facility] [address] [place], [address] GFR/1.73 sq M.predicted among non-blacks MDRD (S/P/Bld) [Vol rate/Area] 122 mL/min/{1.73_m2} Normal >60 [facility] Comment on above: Order Comment: 1 Y Result Comment: Non- GFR Calc Performed By: #### L 300.8000, L100.0100, L500.2500, L501.5425 #### [facility] [address] [place], [address] Glucose [Mass/Vol] 111 mg/dL High 74-106 [facility] Comment on above: Order Comment: 1 Y Result Comment: Fast ing Glucose result from 100 to 125 mg/dL suggests IMPAIRED HOMEOSTASIS per A.D.A. criteria. Performed By: #### L 300.8000, L100.0100, L500.2500, L501.5425 #### [facility] [address] [place], [address] Potassium [Moles/Vol] 4.4 mmol/L Normal 3.5-5.1 [facility] Comment on above: Order Comment: 1 Y Result Comment: Slig ht Hemolysis, Result may be falsely increased. Performed By: #### L 300.8000, L100.0100, L500.2500, L501.5425 #### [facility] [address] [place], [address] Sodium [Moles/Vol] 139 mmol/L Normal 136-145 [facility] Comment on above: Order Comment: 1 Y Performed By: #### L 300.8000, L100.0100, L500.2500, L501.5425 #### [facility] [address] [place], [address] Urea nitrogen [Mass/Vol] 7 mg/dL Normal 7-18 [facility] Comment on above: Order Comment: 1 Y Performed By: #### L 300.8000, L100.0100, L500.2500, L501.5425 #### [facility] [address] [place], [address] CBC W/Diff, Automatedon 10-2 Absolute Lymph 2.03 X10 3/uL Normal 0.83-4.51 [facility] Comment on above: Order Comment: This specimen has been REJECTED due to Laboratory criteria: Clotted. [email or web address] has been notified of need of recollection. 06/07/24 0210 Irene Jiménez Performed By: #### L 100.0100 #### [facility] [address] [place], [address] Absolute Neut 6.3 X10 3/uL Normal 2.0-7.7 [facility] Comment on above: Order Comment: This specimen has been REJECTED due to Laboratory criteria: Clotted. [email or web address] has been notified of need of recollection. 06/07/24209 Irene Jessy Performed By: #### L 100.0100 #### [facility] [address] [place], [address] Basophils/100 WBC (Bld) 0.4 % Normal 0-1 [facility] Comment on above: Order Comment: This specimen has been REJECTED due to Laboratory criteria: Clotted. [email or web address] has been notified of need of recollection. 06/07/24209 Irene Essex Performed By: #### L 100.0100 #### [facility] [address] [place], [address] Eosinophils/100 WBC (Bld) 0.3 % Normal 0-5 [facility] Comment on above: Order Comment: This specimen has been REJECTED due to Laboratory criteria: Clotted. [email or web address] has been notified of need of recollection. 06/07/24209 Irene Essex Performed By: #### L 100.0100 #### [facility] [address] [place], [address] Erythrocyte distribution width (RBC) [Ratio] 12.2 % Normal 11.6-14.6 [facility] Comment on above: Order Comment: This specimen has been REJECTED due to Laboratory criteria: Clotted. [email or web address] has been notified of need of recollection. 06/07/24209 Irene Essex Performed By: #### L 100.0100 #### [facility] [address] [place], [address] Hematocrit (Bld) [Volume fraction] 37.7 % Normal 37-47 [facility] Comment on above: Order Comment: This specimen has been REJECTED due to Laboratory criteria: Clotted. [email or web address] has been notified of need of recollection. 06/07/24209 Irene C Jessy Performed By: #### L 100.0100 #### [facility] [address] [place], [place], [id number] (780) Hemoglobin (Bld) [Mass/Vol] 12.8 g/dL Normal 12.0-15.0 [facility] Comment on above: Order Comment: This specimen has been REJECTED due to Laboratory criteria: Clotted. [email or web address] has been notified of need of recollection. 06/07/24209 Irene C Essex Performed By: #### L 100.0100 #### [facility] [address] [place], [address] IG% 0.500 Normal 0.0-0.9 [facility] Comment on above: Order Comment: This specimen has been REJECTED due to Laboratory criteria: Clotted. [email or web address] has been notified of need of recollection. 06/07/24209 Irene C Jessy Result Comment: IG% - Immature Granulocytes (promyelocytes, myelocytes and metamyelocytes) > 1% indicates that a LEFT SHIFT is Present. Performed By: #### L 100.0100 #### [facility] [address] [place], [address] Lymphocytes/100 WBC (Bld) 22.0 % Normal 19-41 [facility] Comment on above: Order Comment: This specimen has been REJECTED due to Laboratory criteria: Clotted. [email or web address] has been notified of need of recollection. 06/07/24209 Irene C Essex Performed By: #### L 100.0100 #### [facility] [address] [place], [address] MCH (RBC) [Entitic mass] 31.2 pg Normal 27.0-32.0 [facility] Comment on above: Order Comment: This specimen has been REJECTED due to Laboratory criteria: Clotted. [email or web address] has been notified of need of recollection. 06/07/24209 Irene C Essex Performed By: #### L 100.0100 #### [facility] [address] [place], [address] MCHC (RBC) [Mass/Vol] 34.0 g/dL Normal 32-36 [facility] Comment on above: Order Comment: This specimen has been REJECTED due to Laboratory criteria: Clotted. [email or web address] has been notified of need of recollection. 06/07/24209 Irene C Essex Performed By: #### L 100.0100 #### [facility] [address] [place], [address] MCV (RBC) [Entitic vol] 92.0 fL Normal 81-99 [facility] Comment on above: Order Comment: This specimen has been REJECTED due to Laboratory criteria: Clotted. [email or web address] has been notified of need of recollection. 06/07/24209 Irene C Essex Performed By: #### L 100.0100 #### [facility] [address] [place], [address] Monocytes/100 WBC (Bld) 8.5 % Normal 0-10 [facility] Comment on above: Order Comment: This specimen has been REJECTED due to Laboratory criteria: Clotted. [email or web address] has been notified of need of recollection. 06/07/24209 Irene C Essex Performed By: #### L 100.0100 #### [facility] [address] [place], [address] Neutrophils/100 WBC (Bld) 68.3 % Normal 47-70 [facility] Comment on above: Order Comment: This specimen has been REJECTED due to Laboratory criteria: Clotted. [email or web address] has been notified of need of recollection. 06/07/24209 Irene C Essex Performed By: #### L 100.0100 #### [facility] [address] [place], [address] Nucleated RBC (Bld) [#/Vol] 0 10*3/uL Normal 0-5 [facility] Comment on above: Order Comment: This specimen has been REJECTED due to Laboratory criteria: Clotted. [email or web address] has been notified of need of recollection. 06/07/24209 Irene Jiménez Performed By: #### L 100.0100 #### [facility] [address] [place], [address] Platelet mean volume (Bld) [Entitic vol] 9.4 fL Normal 6.2-12.0 [facility] Comment on above: Order Comment: This specimen has been REJECTED due to Laboratory criteria: Clotted. [email or web address] has been notified of need of recollection. 06/07/24209 Irene Kateell Performed By: #### L 100.0100 #### [facility] [address] [place], [address] Platelets (Bld) [#/Vol] 411 10*3/uL Normal 150-450 [facility] Comment on above: Order Comment: This specimen has been REJECTED due to Laboratory criteria: Clotted. [email or web address] has been notified of need of recollection. 06/07/24209 Irene Jiménez Performed By: #### L 100.0100 #### [facility] [address] [place], [address] RBC (Bld) [#/Vol] 4.10 10*6/uL Low 4.2-5.4 [facility] Comment on above: Order Comment: This specimen has been REJECTED due to Laboratory criteria: Clotted. [email or web address] has been notified of need of recollection. 06/07/24209 Irene Kateell Performed By: #### L 100.0100 #### [facility] [address] [place], [address] RDW SD 40.7 fl Normal 35.1-43.9 [facility] Comment on above: Order Comment: This specimen has been REJECTED due to Laboratory criteria: Clotted. [email or web address] has been notified of need of recollection. 06/07/24209 Irene C Essex Performed By: #### L 100.0100 #### [facility] [address] [place], [address] WBC (Bld) [#/Vol] 9.2 10*3/uL Normal 4.4-11.0 [facility] Comment on above: Order Comment: This specimen has been REJECTED due to Laboratory criteria: Clotted. [email or web address] has been notified of need of recollection. 06/07/24209 Irene C Essex Performed By: #### L 100.0100 #### [facility] [address] [place], [address] Absolute Neut Normal 2.0-7.7 [facility] Comment on above: Result Comment: This specimen has been REJECTED due to Laboratory criteria: Clotted. [email or web address] has been notified of need of recollection. 06/07/24209 [facility] [place] Performed By: #### L 300.8000, L100.0100, L500.2500, L501.5425 #### [facility] [address] [place], [address] HCT Normal 37-47 [facility] Comment on above: Result Comment: This specimen has been REJECTED due to Laboratory criteria: Clotted. [email or web address] has been notified of need of recollection. 06/07/24209 Irene C Essex Performed By: #### L 300.8000, L100.0100, L500.2500, L501.5425 #### [facility] [address] [place], [address] HGB Normal 12.0-15.0 [facility] Comment on above: Result Comment: This specimen has been REJECTED due to Laboratory criteria: Clotted. [email or web address] has been notified of need of recollection. 06/07/24209 Irene C Jessy Performed By: #### L 300.8000, L100.0100, L500.2500, L501.5425 #### [facility] [address] [place], [address] MCH Normal 27.0-32.0 [facility] Comment on above: Result Comment: This specimen has been REJECTED due to Laboratory criteria: Clotted. [email or web address] has been notified of need of recollection. 06/07/24209 Irene C Essex Performed By: #### L 300.8000, L100.0100, L500.2500, L501.5425 #### [facility] [address] [place], [address] MCHC Normal 32-36 [facility] Comment on above: Result Comment: This specimen has been REJECTED due to Laboratory criteria: Clotted. [email or web address] has been notified of need of recollection. 06/07/24209 Irene C Jessy Performed By: #### L 300.8000, L100.0100, L500.2500, L501.5425 #### [facility] [address] [place], [address] MCV Normal 81-99 [facility] Comment on above: Result Comment: This specimen has been REJECTED due to Laboratory criteria: Clotted. [email or web address] has been notified of need of recollection. 06/07/24209 Irene C Essex Performed By: #### L 300.8000, L100.0100, L500.2500, L501.5425 #### [facility] [address] [place], [address] NEUT% Normal 47-70 [facility] Comment on above: Result Comment: This specimen has been REJECTED due to Laboratory criteria: Clotted. [email or web address] has been notified of need of recollection. 06/07/24209 Irene C Jessy Performed By: #### L 300.8000, L100.0100, L500.2500, L501.5425 #### [facility] [address] [place], [address] PLT Normal 150-450 [facility] Comment on above: Result Comment: This specimen has been REJECTED due to Laboratory criteria: Clotted. [email or web address] has been notified of need of recollection. 06/07/24209 Irene C Essex Performed By: #### L 300.8000, L100.0100, L500.2500, L501.5425 #### [facility] [address] [place], [address] RBC Normal 4.2-5.4 [facility] Comment on above: Result Comment: This specimen has been REJECTED due to Laboratory criteria: Clotted. [email or web address] has been notified of need of recollection. 06/07/24209 Irene C Jessy Performed By: #### L 300.8000, L100.0100, L500.2500, L501.5425 #### [facility] [address] [place], [address] RDW CV Normal 11.6-14.6 [facility] Comment on above: Result Comment: This specimen has been REJECTED due to Laboratory criteria: Clotted. [email or web address] has been notified of need of recollection. 06/07/24209 Irene C Jessy Performed By: #### L 300.8000, L100.0100, L500.2500, L501.5425 #### [facility] [address] [place], [address] RDW SD Normal 35.1-43.9 [facility] Comment on above: Result Comment: This specimen has been REJECTED due to Laboratory criteria: Clotted. [email or web address] has been notified of need of recollection. 06/07/24209 Irene C Jessy Performed By: #### L 300.8000, L100.0100, L500.2500, L501.5425 #### [facility] [address] [place], [address] WBC Normal 4.4-11.0 [facility] Comment on above: Result Comment: This specimen has been REJECTED due to Laboratory criteria: Clotted. [email or web address] has been notified of need of recollection. 06/07/24 0210 Irene Jiménez Performed By: #### L 300.8000, L100.0100, L500.2500, L501.5425 #### [facility] [address] [place], [address] Chest 1 View (Portable)on Chest 1 View (Portable) [facility] [address] [place] [address] Chest 1 View (Portable) MR#: [id number] Acct: [id number] Name: LILIAM THOMPSON Rep #: [id number] : 1990 F 33 From: Denisa Hugo MD PCP: Dr. Faustina Carcamo MD Status: REG ER Study: Chest 1 View (Portable) Date of Exam: 06/07/24 Exam# [id number] Ordering Dr: Ermias Kelly MD [id number] STUDY: X-RAY CHEST REASON FOR EXAM: Female, 33 years old patient with chest pain. TECHNIQUE: Single AP portable view of the chest. COMPARISON: August 06, 2021. FINDINGS: Cardiac monitoring leads are present. The lungs are clear and expanded. There is no demonstrated pleural abnormality. Normal size heart. Normal mediastinum and lo. Normal visualized pulmonary arteries. Normal visualized aortic arch and descending thoracic aorta. Normal visualized thoracic spine. Normal visualized ribs, clavicles, and shoulders. There is no demonstrated abnormality of the visualized soft tissue structures of the upper abdomen. RAD/Chest 1 View (Portable) IMPRESSION: No radiographic evidence of acute cardiopulmonary disease. Electronically Signed: Denisa Hugo MD at 4:20 EDT , CC: Dr. Ermias Kelly MD; Dr. Faustina Carcamo MD Relief Manager: Signed Normal [facility] D-Dimer Quantitative (DVT/PE )on 06-07-2024 D-DIMER QUANT 0.33 FEU/ug/m Normal 0.27-0.49 [facility] Comment on above: Result Comment: NORM AL D-Dimer level (<0.50) indicates no DVT or PE. Performed By: #### L 300.8000, L100.0100, L500.2500, L501.5425 #### [facility] [address] [facility] [place], [address] Emergency Department Summary on 06-07-2024 Emergency Department Summary [facility] Medical Records Department [address] [place] [address] Emergency Department Summary 06/07/24 MR#: [id number] Acct: [id number] Name: LILIAM THOMPSON Rep #: [id number] : 1990 33 From: Ermias Kelly MD PCP: Dr. Faustina Carcamo MD Status:REG ER Location: ED HPI History of Present Illness Chief Complaint: Chest Pain Narrative Narrative: 33-year-old female past medical history of stills disease, possibly has POTS but has history of tachycardia presents with chest pain that began at 1130 yesterday evening, around 2-1/2 hours ago when she was walking her dog. It was only a 10-minute walk. She thought maybe that since she has been having fevers and flareup of her stills disease over the last week or so that it was chest pain from that. However, seem to be getting worse. Was on the left side of her chest. She states her shoulder felt numb and tingling. She states the pain is sharp and stabbing, and mildly pleuritic as well. She denies any increased swelling of her legs. No other exacerbating or alleviating factors. [facility] Medical History Morbid (severe) obesity due to excess calories Panic disorder with agoraphobia and moderate panic attacks DARLIN (generalized anxiety disorder) Periodic fever syndrome POTS (postural orthostatic tachycardia syndrome) Home Medications ???Medication ???Instructions ???Recorded ???Last Taken ???Type atenolol 25 mg tablet (Tenormin) 25 mg DAILY 01/18/16 Unknown History anakinra 100 mg/0.67 mL 100 mg SQ DAILY 03/02/19 Unknown History subcutaneous syringe colchicine 0.6 mg capsule 0.6 mg PO DAILY 03/02/19 Unknown History fluoxetine 10 mg capsule 20 mg PO DAILY 03/02/19 Unknown History fluvoxamine 100 mg tablet 200 mg PO DAILY 03/02/19 Unknown History hydroxychloroquine 200 mg tablet 400 mg PO DAILY 03/02/19 Unknown History hydroxyzine pamoate 50 mg capsule 25 - 50 mg PO TID PRN 03/02/19 Unknown History Anxiety/Restlessness/ Sleep medroxyprogesterone 150 mg/mL 150 mg IM .[id number] 03/02/19 Unknown History intramuscular syringe meloxicam 15 mg tablet 15 mg PO DAILY 03/02/19 Unknown History propranolol 10 mg tablet 10 mg PO DAILY PRN Dizziness 03/02/19 Unknown History canakinumab (PF) 150 mg/mL subcut 06/07/24 Unknown History subcutaneous solution (Ilaris (PF)) Allergy/AdvReac Type Severity Reaction Status Date / Time latex Allergy Hives Verified 06/07/24 01:49 topiramate (From Topamax) AdvReac Other Verified 06/07/24 01:49 Family History Other Lupus Social History Smoking Status: Never smoker ROS ROS ED ROS Narrative Constitutional: Positive fever with history of periodic fevers, no chills. HEENT: No sore throat. No neck pain. No loss of vision. No rhinorrhea. Cardiovascular: Left-sided chest pain. Possibly pleuritic. No palpitations. No pedal edema. Respiratory: No cough, no shortness of breath. Abdominal: No abdominal pain. Positive nausea. No vomiting. Genitourinary: No dysuria. No hematuria. Musculoskeletal: No myalgias. No arthralgias. Neurologic: No headaches. No dizziness. No lightheadedness. Skin: No rash. No change in color. Psychiatric: No depression. No anxiety. EXAM Physical Exam Narrative Exam Narrative: Afebrile. Vital signs noted. Positive tachycardia, regular. Lungs clear to auscultation bilaterally. Abdomen soft nontender with normal active bowel sounds. No noted pedal edema, pitting. Neurological examination shows her to be awake, and alert, moves all extremities. Const Vital Signs: 06/07/24 01:46 06/07/24 01:58 06/07/24 02:46 Temperature 99.3 F H Temperature Source Oral Pulse Rate 134 H 92 Respiratory Rate 18 18 Blood Pressure 156/108 H 166/98 H Blood Pressure Mean 124 120 Pulse Ox 97 97 98 Oxygen Delivery Method Room Air Room Air Room Air 06/07/24 03:00 06/07/24 04:00 Temperature Temperature Source Pulse Rate 84 78 Respiratory Rate 17 13 Blood Pressure 159/100 H 133/93 H Blood Pressure Mean 119 106 Pulse Ox 98 94 Oxygen Delivery Method Room Air Room Air MDM MDM MDM Narrative Medical decision making narrative: Differential diagnosis includes but not limited to acute coronary syndrome versus pulmonary embolism versus POTS versus stills disease flare. Comprehensive workup was pursued. EKG was obtained and interpreted by myself independently as sinus tachycardia at 127 bpm with PVCs but no acute ST changes. No STEMI. Chest x-ray in 1 view interpreted by myself independently shows no evidence of pneumothorax or pneumonia, no acute process. I reviewed the radiology report which confirms my independent interpre (more content not included)... Normal [facility] L501.4020on 06-07-2024 TROPONIN-I HS 4 pg/mL Normal 3.0-54.0 [facility] Comment on above: Result Comment: Shameka chu Note: New Test Units and Gender Specific Reference Ranges. For more information see Policy Stat Procedure [place] High Sensitivity Troponin (TNIH) and attachments. Performed By: #### L 501.4020 #### [facility] [place], [address] L501.5425on 06-07-2024 TROPONIN-I HS 4 pg/mL Normal 3.0-54.0 [facility] Comment on above: Order Comment: 1 Y Result Comment: Shameka chu Note: New Test Units and Gender Specific Reference Ranges. For more information see Policy Stat Procedure [place] High Sensitivity Troponin (TNIH) and attachments. Performed By: #### L 300.8000, L100.0100, L500.2500, L501.5425 #### [facility] [address] [place], [address] CNCNPATEDon 05-14-2024 CNCNPATED Normal [facility] CNPNon 05-04-2024 CNPN Normal [facility] CNPNon 04-30-2024 CNPN Normal [facility] CNOVon 04-03-2024 CNOV Normal [facility] CNPNon 04-03-2024 CNPN Normal [facility] ALT SerPl-cCncon 04-02-2024 ALT [Catalytic activity/Vol] 34 U/L Normal 7-38 [facility] Comment on above: Order Comment: Speci men Type: BLOOD SPECIMENOrdering Facility: [facility] Address: [address] [place] [address] Performed By: #### 1 920-8, 2157-01, 1987-12, 1742-01, CRET1 ####[facility] LABIA [id number] [place] [address] [place] AST SerPl-cCncon 04-02-2024 AST [Catalytic activity/Vol] 28 U/L Normal 13-35 [facility] Comment on above: Order Comment: Speci men Type: BLOOD SPECIMENOrdering Facility: [facility] Address: [address] [place] [address] Performed By: #### 1 920-8, 2157-01, 1987-12, 1742-01, CRET1 ####[facility] LABIA [id number] [place] [address] [place] Aldolase SerPl-cCncon 2023 Aldolase [Catalytic activity/Vol] 3.4 mU/mL Normal 1.5-8.1 [facility] Comment on above: Order Comment: Speci men Type: BLOOD SPECIMENOrdering Facility: [facility] Address: [address] [place] [address] Result Comment: This test was developed and its performance characteristics determined by [facility]'s Guillaume Rodriguez [facility] Pathology and [facility] Medicine [place] ([facility] It has not been cleared or approved by the FDA. [facility] is regulated under CLIA as qualified to perform high-complexity testing. This test is used for clinical purposes. It should not be regarded as investigational or for research. Performed By: #### 1 761-6 ####[facility] LABCLIA [id number] [place] [address] [place] BUN SerPl-mCncon 04-02-2024 Urea nitrogen [Mass/Vol] 10 mg/dL Normal 7-21 [facility] Comment on above: Order Comment: Speci men Type: BLOOD SPECIMENOrdering Facility: [facility] Address: [address] [place] [address] Performed By: #### 3 094-0 ####[facility] LABCLIA [id number] [place] [address] [place] CBC W Auto Differential pane l (Bld)on 04-02-2024 Basophils (Bld) [#/Vol] 0.05 10*3/uL [facility] Basophils/100 WBC (Bld) 0.6 % [facility] Differential cell count method Nom (Bld) Auto [facility] Eosinophils (Bld) [#/Vol] 0.14 10*3/uL [facility] Eosinophils/100 WBC (Bld) 1.6 % [facility] Erythrocyte distribution width (RBC) [Ratio] 12.4 % 11.5 - 15.0 % [facility] Hematocrit (Bld) [Volume fraction] 41.7 % 36.0 - 46.0 % [facility] Hemoglobin (Bld) [Mass/Vol] 13.6 g/dL 11.5 - 15.5 g/dL [facility] Immature granulocytes (Bld) [#/Vol] 0.04 10*3/uL [facility] Immature granulocytes/100 WBC (Bld) 0.5 % [facility] Interpretation and review of laboratory results Abnormal [facility] Lymphocytes (Bld) [#/Vol] 2.86 10*3/uL [facility] Lymphocytes/100 WBC (Bld) 32.6 % [facility] MCH (RBC) [Entitic mass] 31.8 pg 26.0 - 34.0 pg [facility] MCHC (RBC) [Mass/Vol] 32.6 g/dL 30.5 - 36.0 g/ dL [facility] MCV (RBC) [Entitic vol] 97.4 fL 80.0 - 100.0 fL [facility] Monocytes (Bld) [#/Vol] 0.65 10*3/uL [facility] Monocytes/100 WBC (Bld) 7.4 % [facility] Neutrophils (Bld) [#/Vol] 5.03 10*3/uL [facility] Neutrophils/100 WBC (Bld) 57.3 % [facility] Nucleated RBC (Bld) [#/Vol] [facility] Nucleated RBC/100 WBC (Bld) [Ratio] 0.0 % /100 WBC [facility] Platelet mean volume (Bld) [Entitic vol] 10.2 fL 9.0 - 12.7 fL [facility] Platelets (Bld) [#/Vol] 423 10*3/uL High [facility] RBC (Bld) [#/Vol] 4.28 10*6/uL 3.90 - 5.20 m/uL [facility] WBC (Bld) [#/Vol] 8.77 10*3/uL [facility] Basophils (Bld) [#/Vol] 0.05 10*3/uL Normal <0.11 [facility] Comment on above: Order Comment: Speci men Type: BLOOD SPECIMENOrdering Facility: [facility] Address: [address] [place] [address] Performed By: #### 5 7021-8, 4537-7 ####[facility] LABCLIA [id number] [place] [address] [place] Basophils/100 WBC (Bld) 0.6 % Normal [facility] Comment on above: Order Comment: Speci men Type: BLOOD SPECIMENOrdering Facility: [facility] Address: [address] [place] [address] Performed By: #### 5 7021-8, 4536-7 ####[facility] LABCLIA [id number] [place] [address] [place] Differential cell count method Nom (Bld) Auto Normal [facility] Comment on above: Order Comment: Speci men Type: BLOOD SPECIMENOrdering Facility: [facility] Address: [address] [place] [address] Performed By: #### 5 7021-8, 4536-7 ####[facility] LABCLIA [id number] [place] [address] [place] Eosinophils (Bld) [#/Vol] 0.14 10*3/uL Normal <0.46 [facility] Comment on above: Order Comment: Speci men Type: BLOOD SPECIMENOrdering Facility: [facility] Address: [address] [place] [address] Performed By: #### 5 7021-8, 7 ####[facility] LABCLIA [id number] [place] [address] [place] Eosinophils/100 WBC (Bld) 1.6 % Normal [facility] Comment on above: Order Comment: Speci men Type: BLOOD SPECIMENOrdering Facility: [facility] Address: [address] [place] [address] Performed By: #### 5 7021-8, 7 ####[facility] LABCLIA [id number] [place] [address] [place] Erythrocyte distribution width (RBC) [Ratio] 12.4 % Normal 11.5-15.0 [facility] Comment on above: Order Comment: Speci men Type: BLOOD SPECIMENOrdering Facility: [facility] Address: [address] [place] [address] Performed By: #### 5 7021-8, 4536-7 ####[facility] LABCLIA [id number] [place] [address] [place] Hematocrit (Bld) [Volume fraction] 41.7 % Normal 36.0-46.0 [facility] Comment on above: Order Comment: Speci men Type: BLOOD SPECIMENOrdering Facility: [facility] Address: [address] [place] [address] Performed By: #### 5 7021-8, 4537-7 ####[facility] LABCLIA [id number] [place] [address] [place] Hemoglobin (Bld) [Mass/Vol] 13.6 g/dL Normal 11.5-15.5 [facility] Comment on above: Order Comment: Speci men Type: BLOOD SPECIMENOrdering Facility: [facility] Address: [address] [place] [address] Performed By: #### 5 7021-8, 4537-7 ####[facility] LABCLIA [id number] [place] [address] [place] Immature granulocytes (Bld) [#/Vol] 0.04 10*3/uL Normal <0.10 [facility] Comment on above: Order Comment: Speci men Type: BLOOD SPECIMENOrdering Facility: [facility] Address: [address] [place] [address] Performed By: #### 5 7021-8, 4537-7 ####[facility] LABCLIA [id number] [place] [address] [place] Immature granulocytes/100 WBC (Bld) 0.5 % Normal [facility] Comment on above: Order Comment: Speci men Type: BLOOD SPECIMENOrdering Facility: [facility] Address: [address] [place] [address] Performed By: #### 5 7021-8, 4537-7 ####[facility] LABCLIA [id number] [place] [address] [place] Lymphocytes (Bld) [#/Vol] 2.86 10*3/uL Normal 1.00-4.00 [facility] Comment on above: Order Comment: Speci men Type: BLOOD SPECIMENOrdering Facility: [facility] Address: [address] [place] [address] Performed By: #### 5 7021-8, 4536-7 ####[facility] LABCLIA [id number] [place] [address] [place] Lymphocytes/100 WBC (Bld) 32.6 % Normal [facility] Comment on above: Order Comment: Speci men Type: BLOOD SPECIMENOrdering Facility: [facility] Address: [address] [place] [address] Performed By: #### 5 7021-8, 4536-7 ####[facility] LABCLIA [id number] [place] [address] [place] MCH (RBC) [Entitic mass] 31.8 pg Normal 26.0-34.0 [facility] Comment on above: Order Comment: Speci men Type: BLOOD SPECIMENOrdering Facility: [facility] Address: [address] [place] [address] Performed By: #### 5 7021-8, 4536-7 ####[facility] LABCLIA [id number] [place] [address] [place] MCHC (RBC) [Mass/Vol] 32.6 g/dL Normal 30.5-36.0 [facility] Comment on above: Order Comment: Speci men Type: BLOOD SPECIMENOrdering Facility: [facility] Address: [address] [place] [address] Performed By: #### 5 7021-8, 7-7 ####[facility] LABCLIA [id number] [place] [address] [place] MCV (RBC) [Entitic vol] 97.4 fL Normal 80.0-100.0 [facility] Comment on above: Order Comment: Speci men Type: BLOOD SPECIMENOrdering Facility: [facility] Address: [address] [place] [address] Performed By: #### 5 7021-8, 4536-7 ####[facility] LABCLIA [id number] [place] [address] [place] Monocytes (Bld) [#/Vol] 0.65 10*3/uL Normal <0.87 [facility] Comment on above: Order Comment: Speci men Type: BLOOD SPECIMENOrdering Facility: [facility] Address: [address] [place] [address] Performed By: #### 5 7021-8, 4536-7 ####[facility] LABIA [id number] [place] [address] [place] Monocytes/100 WBC (Bld) 7.4 % Normal [facility] Comment on above: Order Comment: Speci men Type: BLOOD SPECIMENOrdering Facility: [facility] Address: [address] [place] [address] Performed By: #### 5 7021-8, 7 ####[facility] LABIA [id number] [place] [address] [place] Neutrophils (Bld) [#/Vol] 5.03 10*3/uL Normal 1.45-7.50 [facility] Comment on above: Order Comment: Speci men Type: BLOOD SPECIMENOrdering Facility: [facility] Address: [address] [place] [address] Performed By: #### 5 7021-8, 7 ####[facility] LABIA [id number] [place] [address] [place] Neutrophils/100 WBC (Bld) 57.3 % Normal [facility] Comment on above: Order Comment: Speci men Type: BLOOD SPECIMENOrdering Facility: [facility] Address: [address] [place] [address] Performed By: #### 5 7021-8, 4536-7 ####[facility] LABCLIA [id number] [place] [address] [place] Nucleated RBC (Bld) [#/Vol] 10*3/uL Normal <0.01 [facility] Comment on above: Order Comment: Speci men Type: BLOOD SPECIMENOrdering Facility: [facility] Address: [address] [place] [address] Performed By: #### 5 7021-8, 4537-7 ####[facility] LABIA [id number] [place] [address] [place] Nucleated RBC/100 WBC (Bld) [Ratio] 0.0 /100 WBC Normal [facility] Comment on above: Order Comment: Speci men Type: BLOOD SPECIMENOrdering Facility: [facility] Address: [address] [place] [address] Performed By: #### 5 7021-8, 4537-7 ####[facility] LABIA [id number] [place] [address] [place] Platelet mean volume (Bld) [Entitic vol] 10.2 fL Normal 9.0-12.7 [facility] Comment on above: Order Comment: Speci men Type: BLOOD SPECIMENOrdering Facility: [facility] Address: [address] [place] [address] Performed By: #### 5 7021-8, 4537-7 ####[facility] LABIA [id number] [place] [address] [place] Platelets (Bld) [#/Vol] 423 10*3/uL High 150-400 [facility] Comment on above: Order Comment: Speci men Type: BLOOD SPECIMENOrdering Facility: [facility] Address: [address] [place] [address] Performed By: #### 5 7021-8, 4537-7 ####[facility] LABIA [id number] [place] [address] [place] RBC (Bld) [#/Vol] 4.28 10*6/uL Normal 3.90-5.20 [facility] Comment on above: Order Comment: Speci men Type: BLOOD SPECIMENOrdering Facility: [facility] Address: [address] [place] [address] Performed By: #### 5 7021-8, 4537-7 ####[facility] LABCLIA [id number] [place] [address] [place] WBC (Bld) [#/Vol] 8.77 10*3/uL Normal 3.70-11.00 [facility] Comment on above: Order Comment: Speci men Type: BLOOD SPECIMENOrdering Facility: [facility] Address: [address] [place] [address] Performed By: #### 5 7021-8, 4537-7 ####[facility] LABCLIA [id number] [place] [address] [place] CK SerPl-cCncon 04-02-2024 CK [Catalytic activity/Vol] 31 U/L Low 42-196 [facility] Comment on above: Order Comment: Speci men Type: BLOOD SPECIMENOrdering Facility: [facility] Address: [address] [place] [address] Performed By: #### 1 920-8, 6, 1987-12, 1742-01, CRET1 ####[facility] LABCLIA [id number] [place] [id number] [place] CREATININE BLDon 04-02-2024 Creatinine [Mass/Vol] 0.58 mg/dL Normal 0.58-0.96 [facility] Comment on above: Order Comment: Speci men Type: BLOOD SPECIMENOrdering Facility: [facility] Address: [address] [place] [address] Performed By: #### 1 920-8, 2157-01, 1987-12, 1742-01, CRET1 ####[facility] LABCLIA [id number] [place] [address] [place] Creatinine and Glomerular filtration rate.predicted panel (S/P/Bld) 124 mL/min/1.73m??? Normal >=60 [facility] Comment on above: Order Comment: Specclaire armstrong Type: BLOOD SPECIMENOrdering Facility: [facility] Address: [address] [place] [address] Result Comment: Imelda mated Glomerular Filtration Rate [...] reflect actual GFR. Performed By: #### 1 920-8, 2157-01, 1987-12, 1742-01, CRET1 ####[facility] LABIA [id number] [place] [id number] [place] CRP SerPl-mCncon 04-02-2024 CRP [Mass/Vol] mg/L Normal <0.9 [facility] Comment on above: Order Comment: Krystyna amrstrong Type: BLOOD SPECIMENOrdering Facility: [facility] Address: [address] [place] [address] Performed By: #### 1 920-8, 2157-01, 1987-12, 1742-01, CRET1 ####[facility] LABIA [id number] [place] [id number] [place] ESR Westergren method (Bld) [Velocity]on 04-02-2024 ESR (Bld) [Velocity] 8 mm/h Normal 0-20 [facility] Comment on above: Order Comment: Krystyna armstrong Type: BLOOD SPECIMENOrdering Facility: [facility] Address: [address] [place] [address] Performed By: #### 5 7021-8, 4537-7 ####[facility] LABCLIA [id number] [place] [address] [place] Urinalysis complete panel (U )on 04-02-2024 Bacteria LM.HPF (Urine sed) [#/Area] Negative Normal Negative [facility] Comment on above: Order Comment: Speci men Type: URINE SPECIMENOrdering Facility: [facility] Address: [address] [place] [address] Performed By: #### 2 4356-8 ####[facility] LABIA [id number] [place] [address] [place] Bilirubin Ql (U) Negative Normal Negative [facility] Comment on above: Order Comment: Speci men Type: URINE SPECIMENOrdering Facility: [facility] Address: [address] [place] [address] Performed By: #### 2 4356-8 ####[facility] LABIA [id number] [place] [address] [place] Clarity (Unsp spec) Clear Normal Clear [facility] Comment on above: Order Comment: Speci men Type: URINE SPECIMENOrdering Facility: [facility] Address: [address] [place] [address] Performed By: #### 2 4356-8 ####[facility] LABIA [id number] [place] [address] [place] Color (U) Yellow Normal Yellow [facility] Comment on above: Order Comment: Speci men Type: URINE SPECIMENOrdering Facility: [facility] Address: [address] [place] [address] Performed By: #### 2 4356-8 ####[facility] LABIA [id number] [place] [address] [place] Epithelial cells LM.HPF (Urine sed) [#/Area] None Seen Normal [facility] Comment on above: Order Comment: Speci men Type: URINE SPECIMENOrdering Facility: [facility] Address: [address] [place] [address] Performed By: #### 2 4356-8 ####[facility] LABCLIA [id number] [place] [address] [place] Glucose Test strip (U) [Mass/Vol] Negative Normal Negative [facility] Comment on above: Order Comment: Speci men Type: URINE SPECIMENOrdering Facility: [facility] Address: [address] [place] [address] Performed By: #### 2 4356-8 ####[facility] LABCLIA [id number] [place] [address] [place] Hemoglobin Ql (U) Negative Normal Negative [facility] Comment on above: Order Comment: Speci men Type: URINE SPECIMENOrdering Facility: [facility] Address: [address] [place] [address] Performed By: #### 2 4356-8 ####[facility] LABCLIA [id number] [place] [address] [place] Hyaline casts (Urine sed) [#/Area] 0 /[LPF] Normal 0 /LPF [facility] Comment on above: Order Comment: Speci men Type: URINE SPECIMENOrdering Facility: [facility] Address: [address] [place] [address] Performed By: #### 2 4356-8 ####[facility] LABCLIA [id number] [place] [address] [place] Ketones Ql (U) Negative Normal Negative [facility] Comment on above: Order Comment: Speci men Type: URINE SPECIMENOrdering Facility: [facility] Address: [address] [place] [address] Performed By: #### 2 4356-8 ####[facility] LABCLIA [id number] [place] [address] [place] Leukocyte esterase Test strip Ql (U) Negative Normal Negative [facility] Comment on above: Order Comment: Speci men Type: URINE SPECIMENOrdering Facility: [facility] Address: [address] [place] [address] Performed By: #### 2 4356-8 ####[facility] LABCLIA [id number] [place] [address] [place] Nitrite Ql (U) Negative Normal Negative [facility] Comment on above: Order Comment: Speci men Type: URINE SPECIMENOrdering Facility: [facility] Address: [address] [place] [address] Performed By: #### 2 4356-8 ####[facility] LABCLIA [id number] [place] [address] [place] pH (U) 6.0 [pH] Normal <8.5 [facility] Comment on above: Order Comment: Speci men Type: URINE SPECIMENOrdering Facility: [facility] Address: [address] [place] [address] Performed By: #### 2 4356-8 ####[facility] LABCLIA [id number] [place] [address] [place] Protein (U) [Mass/Vol] Negative Normal Negative [facility] Comment on above: Order Comment: Speci men Type: URINE SPECIMENOrdering Facility: [facility] Address: [address] [place] [address] Performed By: #### 2 4356-8 ####[facility] LABCLIA [id number] [place] [address] [place] RBC LM.HPF (Urine sed) [#/Area] 0-2 /HPF Normal 0-2 /HPF [facility] Comment on above: Order Comment: Speci men Type: URINE SPECIMENOrdering Facility: [facility] Address: [address] [place] [address] Performed By: #### 2 4356-8 ####[facility] LABCLIA [id number] [place] [address] [place] Specific gravity (U) [Rel density] 1.010 Normal 1.005-1.030 [facility] Comment on above: Order Comment: Speci men Type: URINE SPECIMENOrdering Facility: [facility] Address: [address] [place] [address] Performed By: #### 2 4356-8 ####[facility] LABIA [id number] [place] [address] [place] Urobilinogen Ql (U) 0.2 EU/dL Normal 0.2-1.0 EU/dL [facility] Comment on above: Order Comment: Speci men Type: URINE SPECIMENOrdering Facility: [facility] Address: [address] [place] [address] Performed By: #### 2 4356-8 ####[facility] LABIA [id number] [place] [address] [place] WBC LM.HPF (Urine sed) [#/Area] 0-5 /HPF Normal 0-5 /HPF [facility] Comment on above: Order Comment: Speci men Type: URINE SPECIMENOrdering Facility: [facility] Address: [address] [place] [address] Performed By: #### 2 4356-8 ####[facility] LABIA [id number] [place] [address] [place] XR CHEST 2V FRONTAL/LATon XR CHEST 2V FRONTAL/LAT Normal [facility] XR Chest PA and Lateralon IMPRESSION: No acute radiographic abnormality. Relief Manager: PSCB Transcribe Date/Time: Apr 02 2024 3:48P Dictated by : LOU JUARES MD This examination was interpreted and the report reviewed and electronically signed by: LOU JUARES MD on Apr 02 2024 3:49PM [facility] DIVISION OF RADIOLOGY * * *Final Report* [...] soft tissues: Unremarkable. DIVISION OF RADIOLOGY Provider, Chichi Oakes - 04/02/2024 * * *Final Report* * [...] Unremarkable. IMPRESSION IMPRESSION: No acute radiographic abnormality. Relief Manager: PSCB Transcribe Date/Time: Apr 02 2024 3:48P Dictated by : LOU JUARES MD This examination was interpreted and the report reviewed and electronically signed by: LOU JUARES MD on Apr 02 2024 3:49PM EST [facility] Radiology Study observation (narrative) [facility] XR Chest PA and LateralOrder ed By: Ccf Provider on 04-02-2024 [facility] CNNURSEon 03-29-2024 CNNURSE Normal [facility] CNPNon 03-29-2024 CNPN Normal [facility] CNOVon 03-15-2024 CNOV Normal [facility] SURGICAL PATHOLOGYon 024 CASE REPORT Normal [facility] Comment on above: Order Comment: Speci men Type: TISSUE SPECIMENOrdering Facility: [facility] Address: [address] [place] [address] Result Comment: Surg ical Pathology Report Case: [id number] Provider: Karen Jenkins MD Collected: 03/15/2024 10:31 AMOrdering Location: OB/Gynecology Received: 03/15/2024 11:41 AMPathologist: [place] MDSpecimens: A) - Cervix, Biopsy, 12 oclock B) - Endocervix, Curettings Performed By: #### S ####[facility] LABCLIA [id number] [place] [address] [place] CLINICAL HISTORY hpv pos Normal [facility] Comment on above: Order Comment: Speci men Type: TISSUE SPECIMENOrdering Facility: [facility] Address: [address] [place] [address] Performed By: #### S ####[facility] LABCLIA [id number] [place] [address] [place] FINAL DIAGNOSIS Normal [facility] Comment on above: Order Comment: Speci men Type: TISSUE SPECIMENOrdering Facility: [facility] Address: [address] [place] [address] Result Comment: A. C ervix, biopsy at 12:00:- Benign ectocervix.B. Endocervix, curettings:- Benign endocervical epithelium.ACV/mm/03/16/2024 Performed By: #### S ####[facility] LABCLIA [id number] [place] [address] [place] FINAL PERFORMING LAB Normal [facility] Comment on above: Order Comment: Speci men Type: TISSUE SPECIMENOrdering Facility: [facility] Address: [address] [place] [address] Result Comment: Diag nostic interpretation performed at [facility], [address] [place] [address] CLIA# [id number] Director: Nito Chamberlain M.D. Performed By: #### S ####[facility] LABIA [id number] [place] [address] [place] GROSS DESCRIPTION Normal [facility] Comment on above: Order Comment: Speci men Type: TISSUE SPECIMENOrdering Facility: [facility] Address: [address] [place] [address] Result Comment: A. C ervix, BiopsyReceived in formalin is one piece of salazar, soft mucosal covered tissue measuring 0.7 x 0.5 x 0.3 cm. Totally submitted in one cassette.B. Endocervix, CurettingsReceived in formalin are multiple salazar-white, soft feathery segments of tissue aggregating to 0.5 x 0.3 by less than 0.1 cm. Totally submitted in one cassette.Gross examination performed at [facility], [address] [place], [place] [id number] 03/15/2024 10:36 PM Performed By: #### S ####[facility] LABCLIA [id number] [place] [address] [place] UA DIP,URINE HCG (POC)on Beta HCG ( test) Ql (U) Negative Negative [facility] Comment on above: Location:[facility], [address] , [place], [address] Lead Front Desk Agent (POCT) Internal QC OK [facility] Location:[facility], [address], [place], [address] [facility]ARE [facility] CNOVon 03-12-2024 CNOV Normal [facility] CNPNon 03-12-2024 CNPN Normal [facility] CNOVon 02-27-2024 CNOV Normal [facility] HIGH RISK HUMAN PAPILLOMA LEYDA (HPV), PCR FOR DETECTION AND GENOTYPINGon 02-27-2024 HPV 16 Ag Ql (Unsp spec) Not detected Normal Not detected [facility] Comment on above: Order Comment: Speci men Type: FLUID SPECIMENOrdering Facility: [facility] Address: [address] [place] [address] Performed By: #### H PVHRT, [id number] ####[facility] LABCLIA [id number] [place] [address] [place] HPV 18 Ag Ql (Unsp spec) Not detected Normal Not detected [facility] Comment on above: Order Comment: Speci men Type: FLUID SPECIMENOrdering Facility: [facility] Address: [address] [place] [address] Performed By: #### H PVHRT, [id number] ####[facility] LABCLIA [id number] [address] [place] HPV 31+33+35+39+45+51+52+ 56+58+59+66+68 DNA JOSSIE+probe Ql (Cvx) Detected Abnormal Not detected [facility] Comment on above: Order Comment: Speci men Type: FLUID SPECIMENOrdering Facility: [facility] Address: [address] [place] [address] Result Comment: High Risk HPV Other Type includes HPV types 31, 33, 35, 39, 45, 51, 52, 56, 58, 59, 66 and 68. Performed By: #### H PVHRT, [id number] ####[facility] LABCLIA [id number] [place] [address] [place] PAP TESTon 02-27-2024 ADEQUACY Satisfactory for interpretation. Normal [facility] Comment on above: Order Comment: Speci men Type: FLUID SPECIMENOrdering Facility: [facility] Address: [address] [place] [address] Performed By: #### H PVHRT, [id number] ####[facility] LABCLIA [id number] [address] [place] CASE REPORT Normal [facility] Comment on above: Order Comment: Speci men Type: FLUID SPECIMENOrdering Facility: [facility] Address: [address] [place] [address] Result Comment: Gyne cologic Cytology Report Case: [id number] Provider: Ayaan Rowley APRN.CNM Collected: 02/27/2024 03:56 PMOrdering Location: OB/Gynecology Received: 02/27/2024 04:47 PMFirst Screen: Daniel, Yesenia, CT, ASCPRescreen: Autumn Beck LSpecimen: Pap Test, ThinPrep, Cervix Performed By: #### H PVHRT, [id number] ####[facility] LABCLIA [id number] [place] [address] [place] CLINICAL HISTORY, CYTOLOGY, SENIOR RESEARCH ASSOCIATE Positive Normal [facility] Comment on above: Order Comment: Speci men Type: FLUID SPECIMENOrdering Facility: [facility] Address: [address] [place] [address] Result Comment: Intr a Uterine Device, No Menses Performed By: #### H PVHRT, [id number] ####[facility] LABCLIA [id number] [place] [address] [place] FINAL PERFORMING LAB Normal [facility] Comment on above: Order Comment: Speci men Type: FLUID SPECIMENOrdering Facility: [facility] Address: [address] [place] [address] Result Comment: Tech nical component, chief medical officer screening performed at [facility], [address] [place] [address] CLIA# [id number] interpretation performed at [facility], [address] [place] [address] CLIA# [id number] Director: Nito Chamberlain M.D. Performed By: #### H PVHRT, [id number] ####[facility] LABCLIA [id number] [place] [address] [place] HPV REFLEX Yes HPV Normal [facility] Comment on above: Order Comment: Speci men Type: FLUID SPECIMENOrdering Facility: [facility] Address: [address] [place] [address] Performed By: #### H PVHRT, [id number] ####[facility] LABCLIA [id number] [place] [address] [place] INTERPRETATION, CYTOLOGY, SENIOR RESEARCH ASSOCIATE Normal [facility] Comment on above: Order Comment: Speci men Type: FLUID SPECIMENOrdering Facility: [facility] Address: [address] [place] [address] Result Comment: Nega tive for intraepithelial lesion or malignancy. Performed By: #### H PVHRT, [id number] ####[facility] LABCLIA [id number] [place] [address] [place] PAP DISCLAIMER COMMENT The Pap Smear is a screening test for cervical cancer. False negative results occur with all screening tests, emphasizing the need for rescreening at recommended intervals, and clinical correlation. Normal [facility] Comment on above: Order Comment: Speci men Type: FLUID SPECIMENOrdering Facility: [facility] Address: [address] [place] [address] Performed By: #### H PVHRT, [id number] ####[facility] LABCLIA [id number] [place] [address] [place] PAP KNIFE EDGER COMMENT Normal [facility] Comment on above: Order Comment: Speci men Type: FLUID SPECIMENOrdering Facility: [facility] Address: [address] [place] [address] Performed By: #### H PVHRT, [id number] ####[facility] LABCLIA [id number] [place] [id number] [place] 25([place])D3 [facility] 20[facility] 25-hydroxyvitamin D3 [Mass/Vol] 18.0 ng/mL Low 31.0-80.0 [facility] Comment on above: Order Comment: Speci men Type: BLOOD SPECIMENOrdering Facility: [facility] Address: [address] [place] [address] Result Comment: Clas sification of 25 [place] Vitamin D status:Deficiency/Insufficiency: < or = 30 ng/ml.Sufficiency/Optimal Levels: 31-80 ng/mLToxicity: > 100 ng/mL.Test performed by chemiluminescent immunoassay. Performed By: #### 1 989-3 ####[facility] LABIA [id number] [place] [address] [place] ALGN KIWI IGEon 02-09-2024 Kiwifruit IgE Qn (S) <0.35 Normal <0.35 [facility] Comment on above: Order Comment: Speci men Type: BLOOD SPECIMENOrdering Facility: [facility] Address: [address] [place] [address] Performed By: #### K IWClaire, LATEXA, 6035-0 ####[facility] LABCLIA [id number] [place] [address] [place] Kiwifruit IgE RAST class (S) Class 0 Normal Class 0 [facility] Comment on above: Order Comment: Speci men Type: BLOOD SPECIMENOrdering Facility: [facility] Address: [address] [place] [address] Performed By: #### K IWI, LATEXA, 6035-0 ####[facility] LABCLIA [id number] [place] [address] [place] ALGN LATEX IGEon 02-09-2024 Latex IgE Qn (S) <0.35 Normal <0.35 [facility] Comment on above: Order Comment: Speci men Type: BLOOD SPECIMENOrdering Facility: [facility] Address: [address] [place] [address] Performed By: #### K IWI, LATEXA, 6035-0 ####[facility] LABIA [id number] [place] [address] [place] Latex IgE RAST class (S) Class 0 Normal Class 0 [facility] Comment on above: Order Comment: Speci men Type: BLOOD SPECIMENOrdering Facility: [facility] Address: [address] [place] [address] Performed By: #### Nino KOROMA LATEXA, 6035-0 ####[facility] LABIA [id number] [place] [address] [place] ALT SerPl-cCncon 02-09-2024 ALT [Catalytic activity/Vol] 30 U/L Normal 7-38 [facility] Comment on above: Order Comment: Speci men Type: BLOOD SPECIMENOrdering Facility: [facility] Address: [address] [place] [address] Performed By: #### 2 4321-2, 3051-0, 3024-7, 1742-6 ####[facility] [id number] [place] [address] [place] AST SerPl-cCncon 02-09-2024 AST [Catalytic activity/Vol] 31 U/L Normal 13-35 [facility] Comment on above: Order Comment: Speci men Type: BLOOD SPECIMENOrdering Facility: [facility] Address: [address] [place] [address] Performed By: #### 1 988-5, 1920-8 ####[facility] [id number] [place] [id number] [place] Banana IgE Qnon 02-09-2024 Banana IgE Qn (S) <0.35 Normal <0.35 [facility] Comment on above: Order Comment: Speci men Type: BLOOD SPECIMENOrdering Facility: [facility] Address: [address] [place] [address] Performed By: #### K IWI, LATEXA, 6035-0 ####[facility] LABCLIA [id number] [address] [address] [place] Banana IgE Qn (S)on 02-09-20 Banana IgE RAST class (S) Class 0 Normal Class 0 [facility] Comment on above: Order Comment: Speci men Type: BLOOD SPECIMENOrdering Facility: [facility] Address: [address] [place] [address] Performed By: #### K [place] LATEXA, 6035-0 ####[facility] LABCLIA [id number] [address] [address] [place] Basic metabolic 2000 panelon 02-09-2024 Anion gap [Moles/Vol] 13 mmol/L Normal 8-15 [facility] Comment on above: Order Comment: Speci men Type: BLOOD SPECIMENOrdering Facility: [facility] Address: [address] [place] [address] Performed By: #### 2 4321-2, 3051-0, 3024-7, 1742-6 ####[facility] LABIA [id number] [place] [id number] [place] Calcium [Mass/Vol] 10.1 mg/dL Normal 8.5-10.2 [facility] Comment on above: Order Comment: Speci men Type: BLOOD SPECIMENOrdering Facility: [facility] Address: [address] [place], [place] [address] Performed By: #### 2 4321-2, 3051-0, 3024-7, 1742-6 ####[facility] LABCLIA [id number] [place] [id number] [place] Chloride [Moles/Vol] 105 mmol/L Normal 98-107 [facility] Comment on above: Order Comment: Speci men Type: BLOOD SPECIMENOrdering Facility: [facility] Address: [address] [place] [address] Performed By: #### 2 4321-2, 3051-0, 3024-7, 174-6 ####[facility] LABCLIA [id number] [place] [id number] [place] CO2 [Moles/Vol] 20 mmol/L Low 22-30 [facility] Comment on above: Order Comment: Speci men Type: BLOOD SPECIMENOrdering Facility: [facility] Address: [address] [place] [address] Performed By: #### 2 4321-2, 3051-0, 3024-7, 174-6 ####[facility] LABCLIA [id number] [place] [address] [place] Creatinine [Mass/Vol] 0.60 mg/dL Normal 0.58-0.96 [facility] Comment on above: Order Comment: Speci men Type: BLOOD SPECIMENOrdering Facility: [facility] Address: [address] [place] [address] Performed By: #### 2 4321-2, 3051-0, 3024-7, 6 ####[facility] LABIA [id number] [place] [address] [place] Creatinine and Glomerular filtration rate.predicted panel (S/P/Bld) 123 mL/min/1.73m??? Normal >=60 [facility] Comment on above: Order Comment: Speci men Type: BLOOD SPECIMENOrdering Facility: [facility] Address: [address] [place] [address] Result Comment: Imelda mated Glomerular Filtration Rate [...] actual GFR. Performed By: #### 2 4321-2, 3051-0, 3024-7, 1742-6 ####[facility] LABCLIA [id number] [address] [address] [place] Glucose [Mass/Vol] 95 mg/dL Normal 74-99 [facility] Comment on above: Order Comment: Speci men Type: BLOOD SPECIMENOrdering Facility: [facility] Address: [address] [place] [address] Result Comment: The [place] Diabetes Association (ADA) provides guidance for cutoff [...] Standards of Medical Care in Diabetes 2016, [place] [employer]. Diabetes Care. 2016.39(Suppl 1). Performed By: #### 2 4321-2, 3051-0, 3024-7, 1742-6 ####[facility] LABIA [id number] [place] [id number] [place] Potassium [Moles/Vol] 4.5 mmol/L Normal 3.7-5.1 [facility] Comment on above: Order Comment: Speci men Type: BLOOD SPECIMENOrdering Facility: [facility] Address: [address] [place] [address] Performed By: #### 2 4321-2, 3051-0, 3024-7, 1742-6 ####[facility] LABIA [id number] [place] [address] [place] Sodium [Moles/Vol] 138 mmol/L Normal 136-144 [facility] Comment on above: Order Comment: Speci men Type: BLOOD SPECIMENOrdering Facility: [facility] Address: [address] [place] [address] Performed By: #### 2 4321-2, 3051-0, 3024-7, 1742-6 ####[facility] LABCLIA [id number] [place] [address] [place] Urea nitrogen [Mass/Vol] 9 mg/dL Normal 7-21 [facility] Comment on above: Order Comment: Speci men Type: BLOOD SPECIMENOrdering Facility: [facility] Address: [address] [place] [address] Performed By: #### 2 4321-2, 3051-0, 3024-7, 1742-6 ####[facility] LABCLIA [id number] [place] [address] [place] CBC W Auto Differential pane l (Bld)on 02-09-2024 Basophils (Bld) [#/Vol] 0.06 10*3/uL Normal <0.11 [facility] Comment on above: Order Comment: Speci men Type: BLOOD SPECIMENOrdering Facility: [facility] Address: [address] [place] [address] Performed By: #### 4 537-7, 96402-9 ####[facility] LABIA [id number] [place] [address] [place] Basophils/100 WBC (Bld) 1.0 % Normal [facility] Comment on above: Order Comment: Speci men Type: BLOOD SPECIMENOrdering Facility: [facility] Address: [address] [place] [address] Performed By: #### 4 537-7, 55956-3 ####[facility] LABIA [id number] [place] [address] [place] Differential cell count method Nom (Bld) Auto Normal [facility] Comment on above: Order Comment: Speci men Type: BLOOD SPECIMENOrdering Facility: [facility] Address: [address] [place] [address] Performed By: #### 4 537-7, 87838-4 ####[facility] LABCLIA [id number] [place] [address] [place] Eosinophils (Bld) [#/Vol] 0.08 10*3/uL Normal <0.46 [facility] Comment on above: Order Comment: Speci men Type: BLOOD SPECIMENOrdering Facility: [facility] Address: [address] [place] [address] Performed By: #### 4 537-7, 14903-9 ####[facility] LABIA [id number] [place] [address] [place] Eosinophils/100 WBC (Bld) 1.3 % Normal [facility] Comment on above: Order Comment: Speci men Type: BLOOD SPECIMENOrdering Facility: [facility] Address: [address] [place] [address] Performed By: #### 4 537-7, 32378-1 ####[facility] LABIA [id number] [place] [address] [place] Erythrocyte distribution width (RBC) [Ratio] 12.3 % Normal 11.5-15.0 [facility] Comment on above: Order Comment: Speci men Type: BLOOD SPECIMENOrdering Facility: [facility] Address: [address] [place] [address] Performed By: #### 4 537-7, 25199-8 ####[facility] LABIA [id number] [place] [address] [place] Hematocrit (Bld) [Volume fraction] 42.1 % Normal 36.0-46.0 [facility] Comment on above: Order Comment: Speci men Type: BLOOD SPECIMENOrdering Facility: [facility] Address: [address] [place] [address] Performed By: #### 4 537-7, 56017-6 ####[facility] LABIA [id number] [place] [address] [id number] [address] [place] Hemoglobin (Bld) [Mass/Vol] 14.2 g/dL Normal 11.5-15.5 [facility] Comment on above: Order Comment: Speci men Type: BLOOD SPECIMENOrdering Facility: [facility] Address: [address] [place] [address] Performed By: #### 4 537-7, 91563-2 ####[facility] LABCLIA [id number] [place] [address] [place] Immature granulocytes (Bld) [#/Vol] 10*3/uL Normal <0.10 [facility] Comment on above: Order Comment: Speci men Type: BLOOD SPECIMENOrdering Facility: [facility] Address: [address] [place] [address] Performed By: #### 4 537-7, 62124-1 ####[facility] LABCLIA [id number] [place] [address] [place] Immature granulocytes/100 WBC (Bld) 0.2 % Normal [facility] Comment on above: Order Comment: Speci men Type: BLOOD SPECIMENOrdering Facility: [facility] Address: [address] [place] [address] Performed By: #### 4 537-7, 68515-2 ####[facility] LABCLIA [id number] [place] [address] [place] Lymphocytes (Bld) [#/Vol] 2.11 10*3/uL Normal 1.00-4.00 [facility] Comment on above: Order Comment: Speci men Type: BLOOD SPECIMENOrdering Facility: [facility] Address: [address] [place] [address] Performed By: #### 4 537-7, 26265-2 ####[facility] LABCLIA [id number] [place] [address] [place] Lymphocytes/100 WBC (Bld) 34.1 % Normal [facility] Comment on above: Order Comment: Speci men Type: BLOOD SPECIMENOrdering Facility: [facility] Address: [address] [place] [address] Performed By: #### 4 537-7, 81988-5 ####[facility] LABCLIA [id number] [place] [address] [place] MCH (RBC) [Entitic mass] 31.2 pg Normal 26.0-34.0 [facility] Comment on above: Order Comment: Speci men Type: BLOOD SPECIMENOrdering Facility: [facility] Address: [address] [place] [address] Performed By: #### 4 537-7, 36155-3 ####[facility] LABIA [id number] [place] [address] [place] MCHC (RBC) [Mass/Vol] 33.7 g/dL Normal 30.5-36.0 [facility] Comment on above: Order Comment: Speci men Type: BLOOD SPECIMENOrdering Facility: [facility] Address: [address] [place] [address] Performed By: #### 4 537-7, 38692-3 ####[facility] LABIA [id number] [place] [address] [place] MCV (RBC) [Entitic vol] 92.5 fL Normal 80.0-100.0 [facility] Comment on above: Order Comment: Speci men Type: BLOOD SPECIMENOrdering Facility: [facility] Address: [address] [place] [address] Performed By: #### 4 537-7, 38298-7 ####[facility] LABIA [id number] [place] [address] [place] Monocytes (Bld) [#/Vol] 0.52 10*3/uL Normal <0.87 [facility] Comment on above: Order Comment: Speci men Type: BLOOD SPECIMENOrdering Facility: [facility] Address: [address] [place] [address] Performed By: #### 4 537-7, 89818-3 ####[facility] LABCLIA [id number] [place] [address] [place] Monocytes/100 WBC (Bld) 8.4 % Normal [facility] Comment on above: Order Comment: Speci men Type: BLOOD SPECIMENOrdering Facility: [facility] Address: [address] [place] [address] Performed By: #### 4 537-7, 00482-9 ####[facility] LABCLIA [id number] [place] [address] [place] Neutrophils (Bld) [#/Vol] 3.41 10*3/uL Normal 1.45-7.50 [facility] Comment on above: Order Comment: Speci men Type: BLOOD SPECIMENOrdering Facility: [facility] Address: [address] [place] [address] Performed By: #### 4 537-7, 96110-1 ####[facility] LABCLIA [id number] [place] [address] [place] Neutrophils/100 WBC (Bld) 55.0 % Normal [facility] Comment on above: Order Comment: Speci men Type: BLOOD SPECIMENOrdering Facility: [facility] Address: [address] [place] [address] Performed By: #### 4 537-7, 26508-4 ####[facility] LABCLIA [id number] [place] [address] [place] Nucleated RBC (Bld) [#/Vol] 10*3/uL Normal <0.01 [facility] Comment on above: Order Comment: Speci men Type: BLOOD SPECIMENOrdering Facility: [facility] Address: [address] [place] [address] Performed By: #### 4 537-7, 12248-8 ####[facility] LABCLIA [id number] [place] [address] [place] Nucleated RBC/100 WBC (Bld) [Ratio] 0.0 /100 WBC Normal [facility] Comment on above: Order Comment: Speci men Type: BLOOD SPECIMENOrdering Facility: [facility] Address: [address] [place] [address] Performed By: #### 4 537-7, 84240-7 ####[facility] LABIA [id number] [place] [address] [place] Platelet mean volume (Bld) [Entitic vol] 10.7 fL Normal 9.0-12.7 [facility] Comment on above: Order Comment: Speci men Type: BLOOD SPECIMENOrdering Facility: [facility] Address: [address] [place] [address] Performed By: #### 4 537-7, 52289-2 ####[facility] LABIA [id number] [place] [address] [place] Platelets (Bld) [#/Vol] 428 10*3/uL High 150-400 [facility] Comment on above: Order Comment: Speci men Type: BLOOD SPECIMENOrdering Facility: [facility] Address: [address] [place] [address] Performed By: #### 4 537-7, 45749-2 ####[facility] LABIA [id number] [place] [address] [place] RBC (Bld) [#/Vol] 4.55 10*6/uL Normal 3.90-5.20 [facility] Comment on above: Order Comment: Speci men Type: BLOOD SPECIMENOrdering Facility: [facility] Address: [address] [place] [address] Performed By: #### 4 537-7, 79929-2 ####[facility] LABIA [id number] [address] [place] [address] [place] WBC (Bld) [#/Vol] 6.19 10*3/uL Normal 3.70-11.00 [facility] Comment on above: Order Comment: Speci men Type: BLOOD SPECIMENOrdering Facility: [facility] Address: [address] [place] [address] Performed By: #### 4 537-7, 70435-3 ####[facility] LABCLIA [id number] [place] [address] [place] CRP SerPl-mCncon 02-09-2024 CRP [Mass/Vol] mg/L Normal <0.9 [facility] Comment on above: Order Comment: Speci men Type: BLOOD SPECIMENOrdering Facility: [facility] Address: [address] [place] [address] Performed By: #### 1 988-5, 1920-8 ####[facility] LABCLIA [id number] [place] [address] [place] ESR Westergren method (Bld) [Velocity]on 02-09-2024 ESR (Bld) [Velocity] 2 mm/h Normal 0-20 [facility] Comment on above: Order Comment: Speci men Type: BLOOD SPECIMENOrdering Facility: [facility] Address: [address] [place] [address] Performed By: #### 4 537-7, 55419-7 ####[facility] LABCLIA [id number] [place] [address] [place] T3Free SerPl-mCncon 02-09-20 24 Free T3 [Mass/Vol] 3.6 pg/mL Normal 2.3-4.1 [facility] Comment on above: Order Comment: Speci men Type: BLOOD SPECIMENOrdering Facility: [facility] Address: [address] [place] [address] Performed By: #### 2 4321-2, 3051-0, 3024-7, 1742-6 ####[facility] LABCLIA [id number] [place] [id number] [place] T4 Free SerPl-mCncon 024 Free T4 [Mass/Vol] 1.1 ng/dL Normal 0.9-1.7 [facility] Comment on above: Order Comment: Speci men Type: BLOOD SPECIMENOrdering Facility: [facility] Address: [address] [place] [address] Performed By: #### 2 4321-2, 3051-0, 3024-7, 1742-6 ####[facility] LABCLIA [id number] [place] [address] [place] CNOVon 01-17-2024 CNOV Normal [facility] XR Shoulder - left 2 Viewson 10-16-2023 IMPRESSION: 1. No acute radiographic abnormality of the left shoulder Relief Manager: [facility] Transcribe Date/Time: Oct 16 2023 2:20P Dictated by : ELIAS ARNOLD MD This examination was interpreted and the report reviewed and electronically signed by: ELIAS ARNOLD MD on Oct 16 2023 2:21PM [facility] DIVISION OF RADIOLOGY * * *Final Report* [...] within normal limits. DIVISION OF RADIOLOGY Provider, [facility] - 10/16/2023 * * *Final Report* [...] acute radiographic abnormality of the left shoulder Relief Manager: [facility] Transcribe Date/Time: Oct 16 2023 2:20P Dictated by : ELIAS ARNOLD MD This examination was interpreted and the report reviewed and electronically signed by: ELIAS ARNOLD MD on Oct 16 2023 2:21PM EST [facility] XR Shoulder - left 2 ViewsOr dered By: Ccf Provider on 10-16-2023 [facility] XR Shoulder - left 2 Viewson 10-14-2023 Radiology Study observation (narrative) [facility] PELVIC US WHIon 07-25-2023 [facility] No Panel Informationon 06-06 [facility] ALLIED HEALTHon 05-19-2023 ALLIED HEALTH HNO ID: [id number] Author: Jose Herrera Tech Service: ? Author [...] Saima Fuchs May 19, 2023 1:12 AM [facility] CBC panel Auto (Bld)on 05-19 Erythrocyte distribution width (RBC) [Ratio] 12.2 % Normal 11.5-15.0 [facility] Comment on above: Order Comment: Speci men Type: BLOOD SPECIMENOrdering Facility: [facility] Address: [address] [place] [address] Performed By: #### 5 8410-2 ####[facility] [id number] [address] [place], [place] [address] [place] Hematocrit (Bld) [Volume fraction] 41.1 % Normal 36.0-46.0 [facility] Comment on above: Order Comment: Speci men Type: BLOOD SPECIMENOrdering Facility: [facility] Address: [address] [place] [address] Performed By: #### 5 8410-2 ####[facility] [id number] [address] [place] Hemoglobin (Bld) [Mass/Vol] 13.5 g/dL Normal 11.5-15.5 [facility] Comment on above: Order Comment: Speci men Type: BLOOD SPECIMENOrdering Facility: [facility] Address: [address] [place] [address] Performed By: #### 5 8410-2 ####[facility]ORYCLIA [id number] [place] [address] [place] MCH (RBC) [Entitic mass] 31.1 pg Normal 26.0-34.0 [facility] Comment on above: Order Comment: Speci men Type: BLOOD SPECIMENOrdering Facility: [facility] Address: [address] [place] [address] Performed By: #### 5 8410-2 ####[facility] [id number] [address] [place] MCHC (RBC) [Mass/Vol] 32.8 g/dL Normal 30.5-36.0 [facility] Comment on above: Order Comment: Speci men Type: BLOOD SPECIMENOrdering Facility: [facility] Address: [address] [place] [address] Performed By: #### 5 8410-2 ####[facility]ORY[facility] [id number] [address] [place], [place] [address] [place] MCV (RBC) [Entitic vol] 94.7 fL Normal 80.0-100.0 [facility] Comment on above: Order Comment: Speci men Type: BLOOD SPECIMENOrdering Facility: [facility] Address: [address] [place] [address] Performed By: #### 5 8410-2 ####[facility]ORYCL[facility] [id number] [address] [place] [address] [place] Nucleated RBC (Bld) [#/Vol] 10*3/uL Normal <0.01 [facility] Comment on above: Order Comment: Speci men Type: BLOOD SPECIMENOrdering Facility: [facility] Address: [address] [place] [address] Performed By: #### 5 8410-2 ####[facility] [id number] [address] [place] Platelet mean volume (Bld) [Entitic vol] 9.9 fL Normal 9.0-12.7 [facility] Comment on above: Order Comment: Speci men Type: BLOOD SPECIMENOrdering Facility: [facility] Address: [address] [place] [address] Performed By: #### 5 8410-2 ####[facility]ORYCLIA [id number] [place] [address] [place] Platelets (Bld) [#/Vol] 510 10*3/uL High 150-400 [facility] Comment on above: Order Comment: Speci men Type: BLOOD SPECIMENOrdering Facility: [facility] Address: [address] [place] [address] Performed By: #### 5 8410-2 ####[facility]ORYCLIA [id number] [place] [address] [place] RBC (Bld) [#/Vol] 4.34 10*6/uL Normal 3.90-5.20 [facility] Comment on above: Order Comment: Speci men Type: BLOOD SPECIMENOrdering Facility: [facility] Address: [address] [place] [address] Performed By: #### 5 8410-2 ####[facility]ORYCLIA [id number] [place] [address] [place] WBC (Bld) [#/Vol] 12.65 10*3/uL High 3.70-11.00 [facility] Comment on above: Order Comment: Speci men Type: BLOOD SPECIMENOrdering Facility: [facility] Address: [address] [place] [address] Performed By: #### 5 8410-2 ####[facility]ORYCLIA [id number] [place] [address] [place] [facility] Comprehensive metabolic 2000 panelon 05-19-2023 Albumin [Mass/Vol] 4.1 g/dL Normal 3.9-4.9 [facility] Comment on above: Order Comment: Speci men Type: BLOOD SPECIMENOrdering Facility: [facility] Address: [address] [place] [address] Performed By: #### 3 016-3, 46682-1, 19372-4, [id number] ####[facility]ORYCLIA [id number] [place] [address] [place] ALP [Catalytic activity/Vol] 104 U/L Normal 34-123 [facility] Comment on above: Order Comment: Speci men Type: BLOOD SPECIMENOrdering Facility: [facility] Address: [address] [place] [address] Performed By: #### 3 016-3, 51639-1, 08013-5, [id number] ####[facility]ORYCLIA [id number] [place] [address] [place] ALT [Catalytic activity/Vol] 22 U/L Normal 7-38 [facility] Comment on above: Order Comment: Speci men Type: BLOOD SPECIMENOrdering Facility: [facility] Address: [address] [place] [address] Performed By: #### 3 016-3, 35389-8, 87112-0, [id number] ####[facility]ORYCLIA [id number] [address] [place], [place] [address] [place] Anion gap [Moles/Vol] 12 mmol/L Normal 9-18 [facility] Comment on above: Order Comment: Speci men Type: BLOOD SPECIMENOrdering Facility: [facility] Address: [address] [place] [address] Performed By: #### 3 016-3, 03380-1, , [id number] ####[facility]ORYCLIA [id number] [address] [place], [place] [address] [place] AST [Catalytic activity/Vol] 19 U/L Normal 13-35 [facility] Comment on above: Order Comment: Speci men Type: BLOOD SPECIMENOrdering Facility: [facility] Address: [address] [place] [address] Performed By: #### 3 016-3, , , [id number] ####[facility]ORYCLIA [id number] [place] [address] [place] Bilirubin [Mass/Vol] mg/dL Low 0.2-1.3 [facility] Comment on above: Order Comment: Speci men Type: BLOOD SPECIMENOrdering Facility: [facility] Address: [address] [place] [address] Performed By: #### 3 016-3, 32642-7, , [id number] ####[facility]ORYCLIA [id number] [address] [place], [place] [address] [place] Calcium [Mass/Vol] 9.2 mg/dL Normal 8.5-10.2 [facility] Comment on above: Order Comment: Speci men Type: BLOOD SPECIMENOrdering Facility: [facility] Address: [address] [place] [address] Performed By: #### 3 016-3, 77170-1, , [id number] ####[facility]ORYCLIA [id number] [place] [address] [place] Chloride [Moles/Vol] 106 mmol/L High 97-105 [facility] Comment on above: Order Comment: Speci men Type: BLOOD SPECIMENOrdering Facility: [facility] Address: [address] [place] [address] Performed By: #### 3 016-3, 94581-9, , [id number] ####[facility]ORYCLIA [id number] [place] [address] [place] CO2 [Moles/Vol] 21 mmol/L Low 22-30 [facility] Comment on above: Order Comment: Speci men Type: BLOOD SPECIMENOrdering Facility: [facility] Address: [address] [place] [address] Performed By: #### 3 016-3, 74677-2, , [id number] ####[facility]ORYCLIA [id number] [place] [address] [place] Creatinine [Mass/Vol] 0.50 mg/dL Low 0.58-0.96 [facility] Comment on above: Order Comment: Speci men Type: BLOOD SPECIMENOrdering Facility: [facility] Address: [address] [place] [address] Performed By: #### 3 016-3, 64275-5, , [id number] ####[facility]ATORYCLIA [id number] [place] [address] [place] Creatinine and Glomerular filtration rate.predicted panel (S/P/Bld) 130 mL/min/1.73m??? Normal >=60 [facility] Comment on above: Order Comment: Speci men Type: BLOOD SPECIMENOrdering Facility: [facility] Address: [address] [place] [address] Result Comment: Imelda mated Glomerular Filtration Rate [...] actual GFR. Performed By: #### 3 016-3, 23546-6, 72322-0, [id number] ####[facility]ORYCLIA [id number] [place] [address] [place] Glucose [Mass/Vol] 135 mg/dL High 74-99 [facility] Comment on above: Order Comment: Speci men Type: BLOOD SPECIMENOrdering Facility: [facility] Address: [address] [place] [address] Result Comment: The [place] [employer] (ADA) provides guidance for cutoff [...] Standards of Medical Care in Diabetes 2016, [place] [employer]. Diabetes Care. 2016.39(Suppl 1). Performed By: #### 3 016-3, 04253-6, 00865-3, [id number] ####[facility]ORYCLIA [id number] [place] [address] [place] Potassium [Moles/Vol] 3.9 mmol/L Normal 3.7-5.1 [facility] Comment on above: Order Comment: Speci men Type: BLOOD SPECIMENOrdering Facility: [facility] Address: [place] [address] Performed By: #### 3 016-3, 48271-8, 33832-8, [id number] ####[facility]ORYCLIA [id number] [place] [address] [place] Protein [Mass/Vol] 7.2 g/dL Normal 6.3-8.0 [facility] Comment on above: Order Comment: Speci men Type: BLOOD SPECIMENOrdering Facility: [facility] Address: [address] [place] [address] Performed By: #### 3 016-3, 67721-9, 94447-4, [id number] ####[facility]ORYCLIA [id number] [place] [address] [place] Sodium [Moles/Vol] 139 mmol/L Normal 136-144 [facility] Comment on above: Order Comment: Speci men Type: BLOOD SPECIMENOrdering Facility: [facility] Address: [address] [place] [address] Performed By: #### 3 016-3, 43536-1, 00071-2, [id number] ####[facility]ORYCLIA [id number] [place] [address] [place] Urea nitrogen [Mass/Vol] 10 mg/dL Normal 7-21 [facility] Comment on above: Order Comment: Speci men Type: BLOOD SPECIMENOrdering Facility: [facility] Address: [address] [place] [address] Performed By: #### 3 016-3, 86763-4, 28803-4, [id number] ####[facility]ORYCLIA [id number] [place] [address] [place] D dimer FEU PPP-mCncon 05-19 Fibrin D-dimer FEU (PPP) [Mass/Vol] 240 ng/mL FEU Normal <500 [facility] Comment on above: Order Comment: Speci men Type: BLOOD SPECIMEN [facility] Address: [address] [place] [address] Performed By: #### 4 8065-7 #### [facility] CLIA [id number] [address] [place], [place] [address] [place] ECG COMPLETEon 05-19-2023 ECG COMPLETE Ventricular Rate : 140 BPM Atrial Rate : 140 BPM P-R Interval : 141 ms QRS Duration : 72 ms Q-T Interval : 292 ms QTC Calculation(Bazett) : 446 ms Calculated P Clark : 48 degrees Calculated R Clark : 75 degrees Calculated T Clark : -23 degrees Sinus tachycardia Low voltage, precordial leads Nonspecific T abnormalities, diffuse leads Abnormal ECG NO STEMI. 2355 Confirmed by DO PICKETT NICHOLAS ([id number]), book or script editor MAURA NGUYEN ([id number]) on 05/19/2023 1:20:46 PM NAME : LILIAM THOMPSON PID : [id number] : 1990 Gender : Female Race : ORD : [id number] Procedure Date : May 18 2023 23:52:49 Edit Date : May 19 2023 13:20:47 Diagnosis: Sinus tachycardia Low voltage, precordial leads Nonspecific T abnormalities, diffuse leads Abnormal ECG NO STEMI. 2355 Confirmed by DO PICKETT NICHOLAS ([id number]), book or script editor MAURA NGUYEN ([id number]) on 05/19/2023 1:20:46 PM Test Reason : Palpitations Location : [address] : [place] [address] Overread By : DO PICKETT NICHOLAS Edited By : MAURA NGUYEN Referred By : , Acquired by : BY, [facility] ED NOTEon 05-19-2023 ED NOTE HNO ID: [id number] Author: Beena Camara RN Service: ? Author Type: Registered Nurse Type: ED Notes Filed: 05/19/2023 4:15 AM Note Text: Discharge paperwork gone over with patient. Iv discontinued. [facility] ED NOTE HNO ID: [id number] Author: Catherine Hitchcock CT Service: ? Author Type: Clinical Depalletizer Operator Type: ED Notes Filed: 05/18/2023 11:45 PM Note Text: Pt to ED for palpitations that started around 2200 tonight. Pt states she had one cocktail and when she got home pt states I got nauseous, felt like I was going to pass out and my left hand and left foot felt numb. [facility] ED PROV NOTEon 05-19-2023 ED PROV NOTE HNO ID: [id number] Author: Jonathan Pickett DO Service: Emergency Medicine [...] abdominal pain Fibromyalgia Dr. Terrazas Inflammatory polyarthritis ([facility]) Joint pain Wood Buffer- Dr. Kelly @[facility] Migraine with aura visual aura; diagnosed with [...] nursing note r (more content not included)... [facility] EKGon 05-19-2023 Electrocardiogram Ventricular Rate : 9 2 BPM Atrial Rate : 92 BPM P-R Interval : 144 ms QRS Duration : 72 ms Q-T Interval : 332 ms QTC Calculation(Bazett) : 411 ms Calculated P Clark : 24 degrees Calculated R Clark : 38 degrees Calculated T Clark : -9 degrees Sinus rhythm Borderline Q waves in inferior leads Inferior infarct, age indeterminate Abnormal ECG NO STEMI. 0326 Confirmed by DO PICKETT NICHOLAS ([id number]), book or script editor MAURA NGUYEN ([id number]) on 05/19/2023 1:21:17 PM NAME : LILIAM THOMPSON PID : [id number] : 1990 Gender : Female Race : ORD : Procedure Date : May 19 2023 03:19:50 Edit Date : May 19 2023 13:21:19 Diagnosis: Sinus rhythm Borderline Q waves in inferior leads Inferior infarct, age indeterminate Abnormal ECG NO STEMI. 0326 Confirmed by DO PICKETT NICHOLAS ([id number]), book or script editor MAURA NGUYEN ([id number]) on 05/19/2023 1:21:17 PM Test Reason : Location : [facility] : [place] [address] Overread By : DO PICKETT NICHOLAS Edited By : MAURA NGUYEN Referred By : , Acquired by : BY, Normal [facility] HCG QUAL BLDon 05-19-2023 HCG, QUALITATIVE Negative Normal Negative [facility] Comment on above: Order Comment: Krystyna armstrong Type: BLOOD SPECIMEN [facility]ing [facility] Address: [address] [place] [address] Performed By: #### H CG #### [facility] CLIA [id number] [address] [place] [address] [place] HIGH SENSITIVITY TROPONIN T (INITIAL)on 05-19-2023 Troponin T.cardiac High sensitivity method [Mass/Vol] <6 Normal <12 [facility] Comment on above: Order Comment: Krystyna armstrong Type: BLOOD SPECIMENOrdering Facility: [facility] Address: [address] [place] [address] Result Comment: When assessing risk for acute [...] day MACE. Performed By: #### 3 016-3, 62588-8, 91817-4, [id number] ####[facility]ORYCLIA [id number] [place] [id number] [place] HIGH SENSITIVITY TROPONIN T (SECOND)on 05-19-2023 Troponin T.cardiac High sensitivity method [Mass/Vol] <6 Normal <12 [facility] Comment on above: Order Comment: Speci men Type: BLOOD SPECIMEN [facility]ing [facility] Address: [address] [place] [address] Result Comment: When assessing risk for acute [...] 30 day MACE. Performed By: #### L [id number] #### [facility] CLIA [id number] [address] [place], [place] [id number] [place] Magnesium SerPl-mCncon 05-19 Magnesium [Mass/Vol] 1.8 mg/dL Normal 1.7-2.3 [facility] Comment on above: Order Comment: Speci men Type: BLOOD SPECIMENOrdering Facility: [facility] Address: [address] [place] [address] Performed By: #### 3 016-3, 23206-8, 98391-5, [id number] ####[facility]ORYCLIA [id number] [place] [id number] [place] TOX SCREEN ROUT URon 023 Amphetamines Confirm (U) [Mass/Vol] Negative Normal Negative [facility] Comment on above: Order Comment: Speci men Type: URINE SPECIMEN [facility]ing [facility] Address: [address] [place] [address] Result Comment: Cuto ff threshold at 1000 ng/mL. Performed By: #### U TOX2 #### [facility] CLIA [id number] [address] [place] [address] [place] BARBITURATES, URINE Negative Normal Negative [facility] Comment on above: Order Comment: Speci men Type: URINE SPECIMEN [facility]ing Facility: [facility] Address: [address] [place] [address] Result Comment: Cuto ff threshold at 200 ng/mL. Performed By: #### U TOX2 #### [facility] CLIA [id number] [address] [place] [address] [place] BENZODIAZEPINES, UR Negative Normal Negative [facility] Comment on above: Order Comment: Speci men Type: URINE SPECIMEN Ordering Facility: [facility] Address: [address] [place] [address] Result Comment: Cuto ff threshold at 200 ng/mL. Performed By: #### U TOX2 #### [facility] CLIA [id number] [address] [place] [address] [place] Cannabinoids Screen Ql (U) Negative Normal Negative [facility] Comment on above: Order Comment: Speci men Type: URINE SPECIMEN [facility]ing [facility]: [facility] Address: [address] [place] [address] Result Comment: Cuto ff threshold at 50 ng/mL. Performed By: #### U TOX2 #### [facility] CLIA [id number] [address] [place] [address] [place] Cocaine Ql (U) Negative Normal Negative [facility] Comment on above: Order Comment: Speci men Type: URINE SPECIMEN Ordering Facility: [facility] Address: [address] [place] [address] Result Comment: Cuto ff threshold at 300 ng/mL. Performed By: #### U TOX2 #### [facility] CLIA [id number] [address] [place] [address] [place] Ethanol (U) [Mass/Vol] <11 Normal <11 [facility] Comment on above: Order Comment: Speci men Type: URINE SPECIMEN Ordering Facility: [facility] Address: [address] [place] [address] Performed By: #### U TOX2 #### [facility] CLIA [id number] [address] [place] [address] [place] Opiates Screen Ql (U) Negative Normal Negative [facility] Comment on above: Order Comment: Speci men Type: URINE SPECIMEN Ordering Facility: [facility] Address: [address] [place] [address] Result Comment: Cuto ff threshold at 300 ng/mL. Performed By: #### U TOX2 #### [facility] CLIA [id number] [address] [place] [address] [place] oxyCODONE cutoff Screen (U) [Mass/Vol] Negative Normal Negative [facility] Comment on above: Order Comment: Speci men Type: URINE SPECIMEN [facility] [facility] Address: [address] [place] [address] Result Comment: Cuto ff threshold at 100 ng/mL. Performed By: #### U TOX2 #### [facility] [place] [id number] [address] [place] [address] [place] Phencyclidine Ql (U) Negative Normal Negative [facility] Comment on above: Order Comment: Speci men Type: URINE SPECIMEN Ordering Facility: [facility] Address: [address] [place] [address] Result Comment: Cuto ff threshold at 25 ng/mL. Performed By: #### U TOX2 #### [facility] IA [id number] [address] [place] [address] [place] TSH SerPl-aCncon 05-19-2023 TSH Qn 5.640 m[IU]/L High 0.270-4.200 [facility] Comment on above: Order Comment: Speci men Type: BLOOD SPECIMENOrdering Facility: [facility] Address: [address] [place] [address] Result Comment: If t he patient is , TSH reference range varies by gestational period: First Trimester (weeks 9-12): 0.180-2.990 mIU/L Second Trimester: 0.110-3.980 mIU/L Third Trimester: 0.480-4.710 mIU/L Mark Cheng et al. A Practical Approach for the Verifications and Determination of Site- and Trimester-Specific Reference Intervals for Thyroid Function tests in . Thyroid, 2019:29:3:412-420. Rickey Perez, et al. 2017 Guidelines of the [place] [employer] for the Diagnosis and Management of Thyroid Disease during and the . Thyroid, 2017:27:3:315-389. Performed By: #### 3 016-3, 11406-7, 60087-0, [id number] ####[facility] [id number] [address] [place] [address] Urinalysis complete panel (U )on 05-19-2023 Bacteria LM.HPF (Urine sed) [#/Area] Moderate Abnormal None Seen [facility] Comment on above: Order Comment: Speci men Type: URINE SPECIMEN Ordering Facility: [facility] Address: [address] [place] [address] Performed By: #### 2 4356-8 #### [facility] CLIA [id number] [address] [place] [address] STATES [facility] Bilirubin Ql (U) Negative Normal Negative [facility] Comment on above: Order Comment: Speci men Type: URINE SPECIMEN Ordering Facility: [facility] Address: [address] [place] [address] Performed By: #### 2 4356-8 #### [facility] CLIA [id number] [address] [place] [address] [place] Clarity (Unsp spec) Clear Normal Clear [facility] Comment on above: Order Comment: Speci men Type: URINE SPECIMEN Ordering Facility: [facility] Address: [address] [place] [address] Performed By: #### 2 4356-8 #### [facility] CLIA [id number] [address] [place] [address] Color (U) Yellow Normal Yellow [facility] Comment on above: Order Comment: Speci men Type: URINE SPECIMEN Ordering Facility: [facility] Address: [address] [place] [address] Performed By: #### 2 4356-8 #### [facility] CLIA [id number] [address] [place] Epithelial cells LM.HPF (Urine sed) [#/Area] Few Normal [facility] Comment on above: Order Comment: Speci men Type: URINE SPECIMEN Ordering Facility: [facility] Address: [address] [place] [address] Performed By: #### 2 4356-8 #### [facility] CLIA [id number] [address] Glucose Test strip (U) [Mass/Vol] Negative Normal Negative [facility] Comment on above: Order Comment: Speci men Type: URINE SPECIMEN Ordering Facility: [facility] Address: [address] [place] [address] Performed By: #### 2 4356-8 #### [facility] CLIA [id number] [address] [place] [address] [place] Hemoglobin Ql (U) Negative Normal Negative [facility] Comment on above: Order Comment: Speci men Type: URINE SPECIMEN Ordering Facility: [facility] Address: [address] [place] [address] Performed By: #### 2 4356-8 #### [facility] CLIA [id number] [address] [place] [address] [place] Ketones Ql (U) Negative Normal Negative [facility] Comment on above: Order Comment: Speci men Type: URINE SPECIMEN Ordering Facility: [facility] Address: [address] [place] [address] Performed By: #### 2 4356-8 #### [facility] CLIA [id number] [address] [place] [address] Leukocyte esterase Test strip Ql (U) Negative Normal Negative [facility] Comment on above: Order Comment: Speci men Type: URINE SPECIMEN Ordering Facility: [facility] Address: [address] [place] [address] Performed By: #### 2 4356-8 #### [facility] CLIA [id number] [address] [place] [address] [place] Nitrite Ql (U) Negative Normal Negative [facility] Comment on above: Order Comment: Speci men Type: URINE SPECIMEN Ordering Facility: [facility] Address: [address] [place] [address] Performed By: #### 2 4356-8 #### [facility] CLIA [id number] [address] [place] [address] [place] pH (U) 6.0 [pH] Normal 5.0-8.0 [facility] Comment on above: Order Comment: Speci men Type: URINE SPECIMEN Ordering Facility: [facility] Address: [address] [place] [address] Performed By: #### 2 4356-8 #### [facility] IA [id number] [address] [place] [address] [place] Protein (U) [Mass/Vol] Negative Normal Negative [facility] Comment on above: Order Comment: Speci men Type: URINE SPECIMEN Ordering Facility: [facility] Address: [address] [place] [address] Performed By: #### 2 4356-8 #### [facility] IA [id number] [address] [place] [address] [place] RBC LM.HPF (Urine sed) [#/Area] 0-3 /HPF Normal 0-3 /HPF [facility] Comment on above: Order Comment: Speci men Type: URINE SPECIMEN Ordering Facility: [facility] Address: [address] [place] [address] Performed By: #### 2 4356-8 #### [facility] IA [id number] [address] [place] [address] [place] Specific gravity (U) [Rel density] <=1.005 Low 1.005-1.030 [facility] Comment on above: Order Comment: Speci men Type: URINE SPECIMEN Ordering Facility: [facility] Address: [address] [place] [address] Performed By: #### 2 4356-8 #### [facility] IA [id number] [address] [place] [address] [place] Urobilinogen Ql (U) 0.2 EU/dL Normal 0.2-1.0 EU/dL [facility] Comment on above: Order Comment: Speci men Type: URINE SPECIMEN Ordering Facility: [facility] Address: [address] [place] [id number] Performed By: #### 2 4356-8 #### [facility] CLIA [id number] [address] [place], [place] [address] [place] WBC LM.HPF (Urine sed) [#/Area] 0-5 /HPF Normal 0-5 /HPF [facility] Comment on above: Order Comment: Speci men Type: URINE SPECIMEN Ordering Facility: [facility] Address: [place] [address] Performed By: #### 2 4356-8 #### [facility] CLIA [id number] [address] [place], [place] [address] [place] XR CHEST 2V [...] significant acute radiographic abnormality of the chest. Relief Manager: PSCB Transcribe Date/Time: May 19 2023 1:53A Dictated by : SELMA RUDD MD This examination was interpreted and the report reviewed and electronically signed by: SELMA RUDD MD on May 19 2023 1:53AM EST [id number] N Normal [facility] ALT SerPl-cCncon 03-25-2023 ALT [Catalytic activity/Vol] 23 U/L Normal 7-38 [facility] Comment on above: Order Comment: Speci men Type: BLOOD SPECIMEN Ordering Facility: [facility] Address: [address] [place] [id number] Performed By: #### 1 742-6, 1920-8, 3094-0, CRET1, 1987-12 #### [facility] CLIA [id number] [address] [place] [address] [place] AST SerPl-cCncon 03-25-2023 AST [Catalytic activity/Vol] 24 U/L Normal 13-35 [facility] Comment on above: Order Comment: Speci men Type: BLOOD SPECIMEN Ordering Facility: [facility] Address: [address] [place] [address] Performed By: #### 1 742-6, 1920-03, 3090, CRET1, 1987-12 #### [facility] CLIA [id number] [address] [place] [address] [place] BUN SerPl-mCncon 03-25-2023 Urea nitrogen [Mass/Vol] 6 mg/dL Low 7-21 [facility] Comment on above: Order Comment: Speci men Type: BLOOD SPECIMEN Ordering Facility: [facility] Address: [address] [place] [address] Performed By: #### 1 74-6, 1920-03, 0, CRET1, 1987-12 #### [facility] CLIA [id number] [address] [place] [address] [place] CBC W Auto Differential pane l (Bld)on 03-25-2023 Basophils (Bld) [#/Vol] 0.04 10*3/uL Normal <0.11 [facility] Comment on above: Order Comment: Speci men Type: BLOOD SPECIMEN Ordering Facility: [facility] Address: [address] [place] [address] Performed By: #### 5 7021-8 #### [facility] CLIA [id number] [address] [place] [address] [place] Basophils/100 WBC (Bld) 0.5 % Normal [facility] Comment on above: Order Comment: Speci men Type: BLOOD SPECIMEN Ordering Facility: [facility] Address: [address] [place] [address] Performed By: #### 5 7021-8 #### [facility] CLIA [id number] [address] [place] [address] [place] Differential cell count method Nom (Bld) Auto Normal [facility] Comment on above: Order Comment: Speci men Type: BLOOD SPECIMEN Ordering Facility: [facility] Address: [address] [place] [address] Performed By: #### 5 7021-8 #### [facility] CLIA [id number] [address] [place] [address] [place] Eosinophils (Bld) [#/Vol] 0.12 10*3/uL Normal <0.46 [facility] Comment on above: Order Comment: Speci men Type: BLOOD SPECIMEN Ordering Facility: [facility] Address: [address] [place] [address] Performed By: #### 5 7021-8 #### [facility] CLIA [id number] [address] [place] [address] [place] Eosinophils/100 WBC (Bld) 1.6 % Normal [facility] Comment on above: Order Comment: Speci men Type: BLOOD SPECIMEN Ordering Facility: [facility] Address: [address] [place] [address] Performed By: #### 5 7021-8 #### [facility] CLIA [id number] [address] [place] [address] [place] Erythrocyte distribution width (RBC) [Ratio] 11.9 % Normal 11.5-15.0 [facility] Comment on above: Order Comment: Speci men Type: BLOOD SPECIMEN Ordering Facility: [facility] Address: [address] [place] [address] Performed By: #### 5 7021-8 #### [facility] CLIA [id number] [address] [place] [address] [place] Hematocrit (Bld) [Volume fraction] 40.9 % Normal 36.0-46.0 [facility] Comment on above: Order Comment: Speci men Type: BLOOD SPECIMEN Ordering Facility: [facility] Address: [address] [place] [address] Performed By: #### 5 7021-8 #### [facility] CLIA [id number] [address] [place] [address] [place] Hemoglobin (Bld) [Mass/Vol] 13.3 g/dL Normal 11.5-15.5 [facility] Comment on above: Order Comment: Speci men Type: BLOOD SPECIMEN Ordering Facility: [facility] Address: [address] [place] [address] Performed By: #### 5 7021-8 #### [facility] CLIA [id number] [address] [place] [address] [place] Immature granulocytes (Bld) [#/Vol] 10*3/uL Normal <0.10 [facility] Comment on above: Order Comment: Speci men Type: BLOOD SPECIMEN Ordering Facility: [facility] Address: [address] [place] [address] Performed By: #### 5 7021-8 #### [facility] CLIA [id number] [address] [place] [address] [place] Immature granulocytes/100 WBC (Bld) 0.3 % Normal [facility] Comment on above: Order Comment: Speci men Type: BLOOD SPECIMEN Ordering Facility: [facility] Address: [address] [place] [address] Performed By: #### 5 7021-8 #### [facility] CLIA [id number] [address] [place] [address] [place] Lymphocytes (Bld) [#/Vol] 2.91 10*3/uL Normal 1.00-4.00 [facility] Comment on above: Order Comment: Speci men Type: BLOOD SPECIMEN Ordering Facility: [facility] Address: [address] [place] [address] Performed By: #### 5 7021-8 #### [facility] CLIA [id number] [address] [place] [address] [place] Lymphocytes/100 WBC (Bld) 37.8 % Normal [facility] Comment on above: Order Comment: Speci men Type: BLOOD SPECIMEN Ordering Facility: [facility] Address: [address] [place] [address] Performed By: #### 5 7021-8 #### [facility] CLIA [id number] [address] [place] [address] MCH (RBC) [Entitic mass] 30.9 pg Normal 26.0-34.0 [facility] Comment on above: Order Comment: Speci men Type: BLOOD SPECIMEN Ordering Facility: [facility] Address: [address] [place] [address] Performed By: #### 5 7021-8 #### [facility] CLIA [id number] [address] [place] [address] [place] MCHC (RBC) [Mass/Vol] 32.5 g/dL Normal 30.5-36.0 [facility] Comment on above: Order Comment: Speci men Type: BLOOD SPECIMEN Ordering Facility: [facility] Address: [address] [place] [address] Performed By: #### 5 7021-8 #### [facility] CLIA [id number] [address] [place] [address] [place] MCV (RBC) [Entitic vol] 94.9 fL Normal 80.0-100.0 [facility] Comment on above: Order Comment: Speci men Type: BLOOD SPECIMEN Ordering Facility: [facility] Address: [address] [place] [address] Performed By: #### 5 7021-8 #### [facility] CLIA [id number] [address] [place] [address] [place] Monocytes (Bld) [#/Vol] 0.71 10*3/uL Normal <0.87 [facility] Comment on above: Order Comment: Speci men Type: BLOOD SPECIMEN Ordering Facility: [facility] Address: [address] [place] [address] Performed By: #### 5 7021-8 #### [facility] CLIA [id number] [address] [place] [address] [place] Monocytes/100 WBC (Bld) 9.2 % Normal [facility] Comment on above: Order Comment: Speci men Type: BLOOD SPECIMEN Ordering Facility: [facility] Address: [address] [place] [address] Performed By: #### 5 7021-8 #### [facility] CLIA [id number] [address] [place] [address] [place] Neutrophils (Bld) [#/Vol] 3.89 10*3/uL Normal 1.45-7.50 [facility] Comment on above: Order Comment: Speci men Type: BLOOD SPECIMEN Ordering Facility: [facility] Address: [address] [place] [address] Performed By: #### 5 7021-8 #### [facility] CLIA [id number] [address] [place] [address] [place] Neutrophils/100 WBC (Bld) 50.6 % Normal [facility] Comment on above: Order Comment: Speci men Type: BLOOD SPECIMEN Ordering Facility: [facility] Address: [address] [place], [place] [address] Performed By: #### 5 7021-8 #### [facility] CLIA [id number] [address] [place] [address] [place] Nucleated RBC (Bld) [#/Vol] 10*3/uL Normal <0.01 [facility] Comment on above: Order Comment: Speci men Type: BLOOD SPECIMEN Ordering Facility: [facility] Address: [address] [place], [place] [address] Performed By: #### 5 7021-8 #### [facility] CLIA [id number] [address] [place] [address] [place] Nucleated RBC/100 WBC (Bld) [Ratio] 0.0 /100 WBC Normal [facility] Comment on above: Order Comment: Speci men Type: BLOOD SPECIMEN Ordering Facility: [facility] Address: [address] [place] [place] [address] Performed By: #### 5 7021-8 #### [facility] CLIA [id number] [address] [place] [address] [place] Platelet mean volume (Bld) [Entitic vol] 9.7 fL Normal 9.0-12.7 [facility] Comment on above: Order Comment: Speci men Type: BLOOD SPECIMEN Ordering Facility: [facility] Address: [address] [place] [address] Performed By: #### 5 7021-8 #### [facility] CLIA [id number] [address] [place] [address] [place] Platelets (Bld) [#/Vol] 439 10*3/uL High 150-400 [facility] Comment on above: Order Comment: Speci men Type: BLOOD SPECIMEN Ordering Facility: [facility] Address: [address] [place] [address] Performed By: #### 5 7021-8 #### [facility] CLIA [id number] [address] [place] [address] [place] RBC (Bld) [#/Vol] 4.31 10*6/uL Normal 3.90-5.20 [facility] Comment on above: Order Comment: Speci men Type: BLOOD SPECIMEN Ordering Facility: [facility] Address: [address] [place] [address] Performed By: #### 5 7021-8 #### [facility] CLIA [id number] [address] [place] [address] [place] WBC (Bld) [#/Vol] 7.69 10*3/uL Normal 3.70-11.00 [facility] Comment on above: Order Comment: Speci men Type: BLOOD SPECIMEN Ordering Facility: [facility] Address: [address] [place] [address] Performed By: #### 5 7021-8 #### [facility] CLIA [id number] [address] [place] [address] [place] CREATININE BLDon 03-25-2023 Creatinine [Mass/Vol] 0.73 mg/dL Normal 0.58-0.96 [facility] Comment on above: Order Comment: Krystyna armstrong Type: BLOOD SPECIMEN Ordering Facility: [facility] Address: [address] [facility] [place] [address] Performed By: #### 1 742-6, 1920-03, 3094-0, CRE, 1987-12 #### [facility] CLIA [id number] [address] [place] [address] [place] ESTIMATED GLOMERULAR FILTRATION RATE 114 mL/min/1.73m??? Normal >=60 [facility] Comment on above: Order Comment: Krystyna armstrong Type: BLOOD SPECIMEN Ordering Facility: [facility] Address: [address] [place] [address] Result Comment: Imelda mated Glomerular Filtration Rate [...] actual GFR. Performed By: #### 1 742-6, 8, 3094-0, CRET1, 1987-12 #### [facility] CLIA [id number] [address] [place] [address] [place] CRP SerPl-mCncon 03-25-2023 CRP [Mass/Vol] mg/L Normal <0.9 [facility] Comment on above: Order Comment: Krystyna armstrong Type: BLOOD SPECIMEN Ordering Facility: [facility] Address: [place] [address] Performed By: #### 1 742-6, 8, 3094-0, CRE, 1987-12 #### [facility] CLIA [id number] [address] [place] [address] [place] ESR Westergren method (Bld) [Velocity]on 03-25-2023 ESR (Bld) [Velocity] 6 mm/h Normal 0-20 [facility] Comment on above: Order Comment: Krystyna armstrong Type: BLOOD SPECIMEN Ordering Facility: [facility] Address: [place] [address] Performed By: #### 4 537-7 #### [facility] CLIA [id number] [address] [place] [address] [place] BACTERIAL VAGINOSIS NAATon 0 - Lactobacillus crispatus+gasseri+talat senii + Gardnerella vaginalis + Atopobium vaginae rRNA JOSSIE+probe Ql (Vag fld) Negative Negative for bacterial vaginosis [facility] BARBARA/TRICHOMONAS NAATon 0 - C. glabrata RNA JOSSIE+probe Ql (Vag fld) Negative Negative for Barbara glabrata [facility] Barbara sp DNA JOSSIE+probe Ql (Vag fld) Negative Negative for Barbara species [facility] T. vaginalis DNA JOSSIE+probe Ql (Unsp spec) Negative Negative for Trichomonas vaginalis by amplification [facility] Reagin and Treponema pallidu m IgG and IgM [Interp]on 07-15-2022 Syphilis Interpretation Cannot exclude recent Treponemal infection if specimen collected within 7-10 days after appearance of suspect lesions or 2-3 weeks after an exposure. Clinical correlation is required. [facility] T. pallidum IgG+IgM IA Ql (S) Non-Reactive Nonreactive [facility] BACTERIAL VAGINOSIS AMPLIFIC ATIONon 07-14-2022 Lactobacillus crispatus+gasseri+talat senii + Gardnerella vaginalis + Atopobium vaginae rRNA JOSSIE+probe Ql (Vag fld) Negative Negative for bacterial vaginosis [facility] C. trachomatis+N. gonorrhoea e DNA JOSSIE+probe Ql (Unsp spec)on 07-14-2022 C. trachomatis DNA JOSSIE+probe Ql (Unsp spec) Negative Negative for Chlamydia trachomatis by amplificaton [facility] N. gonorrhoeae DNA JOSSIE+probe Ql (Unsp spec) Negative Negative for Neisseria gonorrhoeae by amplification [facility] BARBARA / TRICHOMONAS AMPLIF ICATIONon 07-14-2022 C. glabrata RNA JOSSIE+probe Ql (Vag fld) Negative Negative for Barbara glabrata [facility] Barbara albicans, C. dubliniensis, C. parapsilosis, and C. tropicalis RNA JOSSIE+probe Ql (Vag fld) Positive Abnormal Negative for Barbara species [facility] T. vaginalis DNA JOSSIE+probe Ql (Unsp spec) Negative Negative for Trichomonas vaginalis by amplification [facility] CT ABDOMEN/PELVIS WITH CONTR Seferino 06-28-2022 CT [...] in the abdomen/pelvis. Appendix is normal. Normal [facility] CT Abdomen and Pelvis W cont rast [...] process in the abdomen/pelvis. Appendix is normal. [facility] Radiology Study observation (narrative) [facility] CT Abdomen and Pelvis W cont rast IVOrdered By: Isis Franz on 06-28-2022 [facility] Work Phone: HCG ( test) Ql (U)o n 06-28-2022 HCG.beta subunit [Moles/Vol] Negative [facility] POCT CBCOrdered By: Maryan quiles on 06-28-2022 HEMATOCRIT (HCT), MANUAL ENTER 43.2 % 32.5 - 49.4 % [facility] Hemoglobin (HGB), MANUAL ENTER 14.2 g/dL 10.9 - 16.7 g/dL [facility] Interpretation and review of laboratory results [facility]normal [facility] LYMPHOC[facility]TES %, MANUAL ENTER 34.3 % 14.7 - 45.9 % [facility] MEAN CELL VOLUME, MANUAL ENTER 94.3 fL 82.5 - 98.0 fL [facility] NEUTROPHILS %, MANUAL ENTER 59.5 % 46.4 - 74.9 % [facility] OTHERWBC %, MANUAL ENTER 6.2 % 3.2 - 16.9 % [facility] PLATELETS, MANUAL ENTER 477 10^3/uL Abnormal 148 - 382 10^3/uL [facility] RBC, MANUAL ENTER 4.58 10^6/uL 3.71 - 5.5 2 10^6/uL [facility] [facility] WBC, MANUAL ENTER 8.2 10^3/uL 3.9 - 10.4 10^3/[facility]L [facility] COMPREHENSIVE METABOLIC PANELon 06-28-2022 ALBUMIN, MANUAL ENTER 3.9 g/dL 3.3 - 5.5 g/dL [facility] ALKALINE PHOSPHATASE, MANUAL ENTER 76 U/L 42 - 141 U/L [facility] ALT, MANUAL ENTER 36 U/L 10 - 47 U/L [facility] AST, MANUAL ENTER 35 U/L 11 - 38 U/L [facility] Bilirubin, Total, MANUAL ENTER 0.4 mg/dL 0.2 - 1.6 mg/dL [facility] Blood Urea Nitrogen (BUN), MANUAL ENTER 11 mg/dL 7 - 22 mg/dL [facility] CALCIUM (CA), MANUAL ENTER 9.3 mg/dL 8.0 - 10.3 mg/dL [facility] Carbon Diox(CO2), MANUAL ENTER 20 mmol/L 18 - 33 mmol/L [facility] Chloride (CL), MANUAL ENTER 111 mmol/L Abnormal 98 - 108 mmol/L [facility] CREATININE, SERUM, MANUAL ENTER 0.9 mg/dL 0.6 - 1.2 mg/dL [facility] GLUCOSE, MANUAL ENTER 101 mg/dL 73 - 118 mg/dL [facility] Interpretation and review of laboratory results Abnormal [facility] POTASSIUM (K+), MANUAL ENTER 4.1 mmol/L 3.6 - 5.1 mmol/L [facility] Protein, Total, Manual Enter 7.3 g/dL 6.4 - 8.1 g/dL [facility] SODIUM (NA), MANUAL ENTER 142 mmol/L 128 - 145 mmol/L [facility] POCT URINE DIPSTICK AUTOMATE DOrdered By: Francesca Johnson on 06-28-2022 Amorphous sediment LM Ql (Urine sed) [facility] Appearance (U) clear [facility] Bacteria LM Ql (Urine sed) [facility] Bilirubin Ql (U) Negative [facility] Casts LM.LPF (Urine sed) [#/Area] [facility] Color (U) yellow [facility] Crystals LM Nom (Urine sed) [facility] Epithelial cells.squamous LM.HPF (Urine sed) [#/Area] [facility] Flow cytometry specialist review Amrik (Unsp spec) [Interp] [facility] Glucose Auto test strip (U) [Mass/Vol] Negative mg/dL [facility] Ketones [Mass/Vol] Negative mg/dL [facility] Leukocyte esterase Qn (U) [facility] Leukocyte esterase Test strip Ql (U) Negative [facility] Microscopic observation Gram stain Nom (Bronch spec) [facility] Nitrite Ql (U) Negative [facility] pH (U) 5.5 [pH] 5 - 7 [facility] Protein Ql (U) Negative mg/dL [facility] RBC LM.HPF (Urine sed) [#/Area] [facility] RBC Ql (U) Negative [facility] Specific gravity (U) [Rel density] 1.001 - 1.035 [facility] Transitional cells LM Ql (Urine sed) [facility] Urobilinogen Qn (U) 0.2 [facility] WBC LM.HPF (Urine sed) [#/Area] [facility] XR ANKLE RIGHT 3+ VIEWS (STA NDARD)on [...] arthritic changes at the talonavicular articulation noted. [employer] Workstation ID: [id number] Dictated by: BOB TONY on [place] May 02, 2022 2:33:16 PM EDT Transcribed by: ELIAS HARPER on [place] May 02, 2022 2:34:42 PM EDT Finalized by: BOB TONY on [place] May 02, 2022 4:39:22 PM EDT [facility] Comment on above: Order Comment: [...] arthritic changes at the talonavicular articulation noted. [email or web address] Workstation ID: [id number] [facility] EXAMINATION: XR ANKLE RIGHT 3+ VIEWS (STANDARD) [...] talonavicular articulation noted. [employer] Workstation ID: [id number] [facility] Radiology Study observation (narrative) [facility] XR Ankle Right 3+ Views (Sta ndard)Ordered By: Bob Tony on 05-02-2022 [facility] Work Phone: US FEMALE PELVIS TRANSVAGon 01-20-2022 [facility] HCG QUAL UR B/Oon 12-04-2021 status Negative neg - [facility] Quality Check Yes [facility] ALLIED HEALTHon 11-02-2021 ALLIED HEALTH HNO ID: [id number] Author: RT Beatrice(R) Service: ? Author Type: [...] applicable SIGNED BY: Loulou Altamirano RT(R), Micki Mata RT November 02, 2021 2:12 PM [facility] MRI ANKLE WO IVCON LTon 03-2 MRI ANKLE WO IVCON LT * * *Final Report* * * DATE OF EXAM: Nov 02 2021 2:42PM [facility] 0163 - MRI ANKLE WO IVCON [...] the lateral collateral ligament complex are intact Relief Manager: [facility] Transcribe Date/Time: Nov 02 2021 5:07P Dictated by : GIOVANY MENJIVAR MD This examination was interpreted and the report reviewed and electronically signed by: GIOVANY MENJIVAR MD on Nov 02 2021 5:09PM EST [id number] Normal [facility] XR Ankle - left AP and Later al and obliqueon 09-16-2021 IMPRESSION: No radiographic evidence of acute osseous injury. Relief Manager: [facility] Transcribe Date/Time: Sep 16 2021 11:38A Dictated by : JAMES THURMAN MD This examination was interpreted and the report reviewed and electronically signed by: JAMES THURMAN MD on Sep 16 2021 11:39AM [facility] DIVISION OF RADIOLOGY * * *Final Report* [...] Joint spaces preserved. DIVISION OF RADIOLOGY Provider, [facility] - 09/16/2021 * * *Final Report* [...] No radiographic evidence of acute osseous injury. [facility] Transcribe Date/Time: Sep 16 2021 11:38A Dictated by : JAMES THURMAN MD This examination was interpreted and the report reviewed and electronically signed by: JAMES THURMAN MD on Sep 16 2021 11:39AM EST [facility] Radiology Study observation (narrative) [facility] XR Ankle - left AP and Later al and obliqueOrdered By: Ccf Provider on 09-16-2021 [facility] No Panel Informationon 08-05 IMPRESSION: LEFT ANKLE: Within normal limits. No fracture or other bone or joint abnormalities. LEFT FOOT: Within normal limits. No fracture or other bone or joint abnormalities. Relief Manager: REUBEN Transcribe Date/Time: Aug 05 2021 4:29P Dictated by : KATI ROMAN MD This examination was interpreted and the report reviewed and electronically signed by: KATI ROMAN MD on Aug 05 2021 4:34PM [facility] DIVISION OF RADIOLOGY Radiology Study observation (narrative) [facility] No Panel InformationOrdered By: Ccf Provider on 08-05-2021 [facility] XR Ankle - left AP and Later [...] radiopaque foreign bodies. DIVISION OF RADIOLOGY Provider, [facility] - 08/05/2021 * * *Final Report* [...] fracture or other bone or joint abnormalities. Relief Manager: [facility] Transcribe Date/Time: Aug 05 2021 4:29P Dictated by : KATI ROMAN MD This examination was interpreted and the report reviewed and electronically signed by: KATI ROMAN MD on Aug 05 2021 4:34PM [facility] XR Foot - left AP and [...] radiopaque foreign bodies. DIVISION OF RADIOLOGY Provider, [facility] - 08/05/2021 * * *Final Report* [...] fracture or other bone or joint abnormalities. Relief Manager: REUBEN Transcribe Date/Time: Aug 05 2021 4:29P Dictated by : KATI ROMAN MD This examination was interpreted and the report reviewed and electronically signed by: KATI ROMAN MD on Aug 05 2021 4:34PM EST [facility] No Panel Informationon 01-07 IMPRESSION: No acute osseous abnormality of the LEFT wrist or LEFT shoulder is identified. Relief Manager: REUBEN Transcribe Date/Time: Jan 07 2021 8:17A Dictated by : MICHELINE MORIN MD This examination was interpreted and the report reviewed and electronically signed by: MICHELINE MORIN MD on Jan 07 2021 8:20AM [facility] DIVISION OF RADIOLOGY Radiology Study observation (narrative) [facility] No Panel InformationOrdered By: Ccf Provider on 01-07-2021 [facility] XR Shoulder - left 3 Viewson 01-07-2021 [...] area Acute pain of left shoulder (accession [id number]), Left wrist pain (accession [id number]) Technique: XR WRIST 4V PA/LAT/OBL/SCAPH LT, XR SHLDR >/=3V AP/JENNIE AP/OTHR LT -- LEFT wrist and shoulder with 4 (accession [id number]), 3 (accession [id number]) views on 4 (accession [id number]), 3 (accession [id number]) images Comparison: 10/27/2017 RESULT: LEFT wrist: No [...] lung are clear. DIVISION OF RADIOLOGY Provider, [facility] - 01/07/2021 * * *Final Report* [...] area Acute pain of left shoulder (accession [id number]), Left wrist pain (accession [id number]) Technique: XR WRIST 4V PA/LAT/OBL/SCAPH LT, XR SHLDR >/=3V AP/JENNIE AP/OTHR LT -- LEFT wrist and shoulder with 4 (accession [id number]), 3 (accession [id number]) views on 4 (accession [id number]), 3 (accession [id number]) images Comparison: 10/27/2017 RESULT: LEFT wrist: No [...] LEFT wrist or LEFT shoulder is identified. Relief Manager: [facility] Transcribe Date/Time: Jan 07 2021 8:17A Dictated by : MICHELINE MORIN MD This examination was interpreted and the report reviewed and electronically signed by: MICHELINE MORIN MD on Jan 07 2021 8:20AM [facility] XR Wrist - left 4 Viewson [...] area Acute pain of left shoulder (accession [id number]), Left wrist pain (accession [id number]) Technique: XR WRIST 4V PA/LAT/OBL/SCAPH LT, XR SHLDR >/=3V AP/JENNIE AP/OTHR LT -- LEFT wrist and shoulder with 4 (accession [id number]), 3 (accession [id number]) views on 4 (accession [id number]), 3 (accession [id number]) images Comparison: 10/27/2017 RESULT: LEFT wrist: No [...] lung are clear. DIVISION OF RADIOLOGY Provider, [facility] - 01/07/2021 * * *Final Report* [...] area Acute pain of left shoulder (accession [id number]), Left wrist pain (accession [id number]) Technique: XR WRIST 4V PA/LAT/OBL/SCAPH LT, XR SHLDR >/=3V AP/JENNIE AP/OTHR LT -- LEFT wrist and shoulder with 4 (accession [id number]), 3 (accession [id number]) views on 4 (accession [id number]), 3 (accession [id number]) images Comparison: 10/27/2017 RESULT: LEFT wrist: No [...] LEFT wrist or LEFT shoulder is identified. Relief [facility] Transcribe Date/Time: Jan 07 2021 8:17A Dictated by : MICHELINE MORIN MD This examination was interpreted and the report reviewed and electronically signed by: MICHELINE MORIN MD on Jan 07 2021 8:20AM EST [facility] CT Sinuses WO contraston IMPRESSION: Clear paranasal sinuses without radiographic sequelae of chronic sinusitis. Relief Manager: [facility] Transcribe Date/Time: Jul 17 2020 10:37A Dictated by : KENNETH ROSAS MD This examination was interpreted and the report reviewed and electronically signed by: LIZABETH PARKER MD on Jul 17 2020 11:03AM [facility] DIVISION OF RADIOLOGY * * *Final Report* * * DATE OF EXAM: Jul 17 2020 10:29AM [facility] 0488 - CT SINUS WO IVCON / [...] limits within the limitations of the study. Field Mechanical Meter Tester (topogram) images: Unremarkable. DIVISION OF RADIOLOGY Provider, [facility] - 07/17/2020 * * *Final Report* * * DATE OF EXAM: Jul 17 2020 10:29AM [facility] 0488 - CT SINUS WO IVCON / [...] limits within the limitations of the study. Field Mechanical Meter Tester (topogram) images: Unremarkable. IMPRESSION IMPRESSION: Clear paranasal sinuses without radiographic sequelae of chronic sinusitis. Relief Manager: REUBEN Transcribe Date/Time: Jul 17 2020 10:37A Dictated by : KENNETH ROSAS MD This examination was interpreted and the report reviewed and electronically signed by: LIZABETH PARKER MD on Jul 17 2020 11:03AM [facility] Radiology Study observation (narrative) [facility] CT Sinuses WO contrastOrdere d By: Ccf Provider on 07-17-2020 [facility] XR Chest PA and Lateralon IMPRESSION: No acute radiographic abnormality. Relief Manager: REUBEN Transcribe Date/Time: Jun 05 2020 12:37P Dictated by : MICHELINE MORIN MD This examination was interpreted and the report reviewed and electronically signed by: MICHELINE MORIN MD on Jun 05 2020 12:38PM EST DIVISION OF RADIOLOGY * * *Final [...] osseous abnormalities appreciated. DIVISION OF RADIOLOGY Provider, [facility] - 06/05/2020 * * *Final Report* [...] appreciated. IMPRESSION IMPRESSION: No acute radiographic abnormality. Relief Manager: REUBEN Transcribe Date/Time: Jun 05 2020 12:37P Dictated by : MICHELINE MORIN MD This examination was interpreted and the report reviewed and electronically signed by: MICHELINE MORIN MD on Jun 05 2020 12:38PM EST [facility] Radiology Study observation (narrative) [facility] XR Chest PA and LateralOrder ed By: Ccf Provider on 06-05-2020 [facility] Vital Signs Date Time Vital Sign Value Performing Clinician Facility 01-09-2025 10:12-0400 Body mass index (BMI) [Ratio] 53.6 kg/m2 Petra Parish BLADE SHARPENER.SAFETY COUNCIL DIRECTOR Work Phone: [facility] 01-09-2025 10:12-0400 Body weight 124.5 kg Petra Parish BLADE SHARPENER.SAFETY COUNCIL DIRECTOR Work Phone: [facility] 01-09-2025 10:12-0400 Diastolic blood pressure 103 mm[Hg] Petra Parish BLADE SHARPENER.SAFETY COUNCIL DIRECTOR Work Phone: [facility] 01-09-2025 10:12-0400 Heart rate 130 /min Petra Parish BLADE SHARPENER.SAFETY COUNCIL DIRECTOR Work Phone: [facility] 01-09-2025 10:12-0400 SaO2% (BldA) [Mass fraction] 99 % Petra Parish BLADE SHARPENER.SAFETY COUNCIL DIRECTOR Work Phone: [facility] 01-09-2025 10:12-0400 Systolic blood pressure 168 mm[Hg] Petra Parish BLADE SHARPENER.SAFETY COUNCIL DIRECTOR Work Phone: [facility] 12-21-2024 10:48-0400 Body mass index (BMI) [Ratio] 54.21 kg/m2 Krislyn Aberegg PA Work Phone: [facility] 12-21-2024 10:48-0400 Body temperature 97.5 [degF] Krislyn Aberegg PA Work Phone: [facility] 12-21-2024 10:48-0400 Body weight 125.9 kg Krislyn Aberegg PA Work Phone: [facility] 12-21-2024 10:48-0400 Diastolic blood pressure 94 mm[Hg] Krislyn Aberegg PA Work Phone: [facility] 12-21-2024 10:48-0400 Heart rate 120 /min Krislyn Aberegg PA Work Phone: [facility] 05-09-2025 10:48-0400 Respiratory rate 20 /min Krislyn Aberegg PA Work Phone: [facility] 12-21-2024 10:48-0400 SaO2% (BldA) [Mass fraction] 97 % Krislyn Aberegg PA Work Phone: [facility] 12-21-2024 10:48-0400 Systolic blood pressure 148 mm[Hg] Krislyn Aberegg PA Work Phone: [facility] 11-22-2024 07:13-0400 Body mass index (BMI) [Ratio] 53.73 kg/m2 Krislyn Aberegg PA Work Phone: [facility] 11-22-2024 07:13-0400 Body temperature 97 [degF] Krislyn Aberegg PA Work Phone: [facility] 11-22-2024 07:13-0400 Body weight 124.8 kg Krislyn Aberegg PA Work Phone: [facility] 11-22-2024 07:13-0400 Diastolic blood pressure 78 mm[Hg] Krislyn Aberegg PA Work Phone: [facility] 11-22-2024 07:13-0400 Heart rate 112 /min Krislyn Aberegg PA Work Phone: [facility] 11-22-2024 07:13-0400 Respiratory rate 18 /min Krislyn Aberegg PA Work Phone: [facility] 11-22-2024 07:13-0400 SaO2% (BldA) [Mass fraction] 98 % Krislyn Aberegg PA Work Phone: [facility] 11-22-2024 07:13-0400 Systolic blood pressure 116 mm[Hg] Krislyn Aberegg PA Work Phone: [facility] 11-19-2024 19:03-0400 Body mass index (BMI) [Ratio] 54.08 kg/m2 Rosaura Santacruz APRN.CNP Work Phone: [facility] 11-19-2024 19:03-0400 Body temperature 98.29 [degF] Rosaura Santacruz BLADE SHARPENER.SAFETY COUNCIL DIRECTOR Work Phone: [facility] 11-19-2024 19:03-0400 Body weight 125.6 kg Rosaura Santacruz BLADE SHARPENER.SAFETY COUNCIL DIRECTOR Work Phone: [facility] 11-19-2024 19:03-0400 Diastolic blood pressure 76 mm[Hg] Rosaura Santacruz BLADE SHARPENER.SAFETY COUNCIL DIRECTOR Work Phone: [facility] 11-19-2024 19:03-0400 Heart rate 105 /min Rosaura Santacruz BLADE SHARPENER.SAFETY COUNCIL DIRECTOR Work Phone: [facility] 11-19-2024 19:03-0400 Respiratory rate 18 /min Rosaura Santacruz BLADE SHARPENER.SAFETY COUNCIL DIRECTOR Work Phone: [facility] 11-19-2024 19:03-0400 SaO2% (BldA) [Mass fraction] 98 % Rosaura Santacruz BLADE SHARPENER.SAFETY COUNCIL DIRECTOR Work Phone: [facility] 11-19-2024 19:03-0400 Systolic blood pressure 112 mm[Hg] Rosaura Santacruz BLADE SHARPENER.SAFETY COUNCIL DIRECTOR Work Phone: [facility] 10-31-2024 16:30-0400 Body mass index (BMI) [Ratio] 53.82 kg/m2 Nicholas Dorantes BLADE SHARPENER.SAFETY COUNCIL DIRECTOR Work Phone: [facility] 10-31-2024 16:30-0400 Body temperature 99.3 [degF] Nicholas Pendleceferino BLADE SHARPENER.SAFETY COUNCIL DIRECTOR Work Phone: [facility] 10-31-2024 16:30-0400 Body weight 125 kg Nicholas Dorantes BLADE SHARPENER.SAFETY COUNCIL DIRECTOR Work Phone: [facility] 10-31-2024 16:30-0400 Diastolic blood pressure 80 mm[Hg] Nicholas Pendlebury BLADE SHARPENER.SAFETY COUNCIL DIRECTOR Work Phone: [facility] 10-31-2024 16:30-0400 Heart rate 99 /min Nicholas Dorantes BLADE SHARPENER.SAFETY COUNCIL DIRECTOR Work Phone: [facility] 10-31-2024 16:30-0400 Respiratory rate 18 /min Nicholas Byrnesceferino BLADE SHARPENER.SAFETY COUNCIL DIRECTOR Work Phone: [facility] 10-31-2024 16:30-0400 SaO2% (BldA) [Mass fraction] 98 % Nicholas Brightrubiceferino BLADE SHARPENER.SAFETY COUNCIL DIRECTOR Work Phone: [facility] 10-31-2024 16:30-0400 Systolic blood pressure 122 mm[Hg] Nicholas Brightrubiceferino BLADE SHARPENER.SAFETY COUNCIL DIRECTOR Work Phone: [facility] 10-24-2024 11:36-0400 Body mass index (BMI) [Ratio] 53.73 kg/m2 Steven Harris BLADE SHARPENER.SAFETY COUNCIL DIRECTOR Work Phone: [facility] 10-24-2024 11:36-0400 Body temperature 97.9 [degF] Steven Harris BLADE SHARPENER.SAFETY COUNCIL DIRECTOR Work Phone: [facility] 10-24-2024 11:36-0400 Body weight 124.8 kg Steven Harris BLADE SHARPENER.SAFETY COUNCIL DIRECTOR Work Phone: [facility] 10-24-2024 11:36-0400 Diastolic blood pressure 80 mm[Hg] Steven Harirs BLADE SHARPENER.SAFETY COUNCIL DIRECTOR Work Phone: [facility] 10-24-2024 11:36-0400 Heart rate 99 /min Steven Harris BLADE SHARPENER.SAFETY COUNCIL DIRECTOR Work Phone: [facility] 10-24-2024 11:36-0400 Respiratory rate 16 /min Steven Harris BLADE SHARPENER.SAFETY COUNCIL DIRECTOR Work Phone: [facility] 10-24-2024 11:36-0400 SaO2% (BldA) [Mass fraction] 99 % Steven Harris BLADE SHARPENER.SAFETY COUNCIL DIRECTOR Work Phone: [facility] 10-24-2024 11:36-0400 Systolic blood pressure 130 mm[Hg] Steven Harris BLADE SHARPENER.SAFETY COUNCIL DIRECTOR Work Phone: [facility] 10-16-2024 18:59-0500 Body height 152.4 cm Faustina Carcamo MD Work Phone: [facility] 10-16-2024 18:59-0500 Body mass index (BMI) [Ratio] 53.09 kg/m2 Faustina Carcamo MD Work Phone: [facility] 10-16-2024 18:59-0500 Body temperature 97.9 [degF] Faustina Carcamo MD Work Phone: [facility] 10-16-2024 18:59-0500 Body weight 123.3 kg Faustina Carcamo MD Work Phone: [facility] 10-16-2024 18:59-0500 Diastolic blood pressure 70 mm[Hg] Faustina Carcamo MD Work Phone: [facility] 10-16-2024 18:59-0500 Heart rate 102 /min Faustina Carcamo MD Work Phone: [facility] 10-16-2024 18:59-0500 Respiratory rate 14 /min Faustina Carcamo MD Work Phone: [facility] 10-16-2024 18:59-0500 SaO2% (BldA) [Mass fraction] 98 % Faustina Carcamo MD Work Phone: [facility] 10-16-2024 18:59-0500 Systolic blood pressure 136 mm[Hg] Faustina Carcamo MD Work Phone: [facility] 09-25-2024 08:58-0500 Body mass index (BMI) [Ratio] 53.39 kg/m2 Rosaura Santacruz BLADE SHARPENER.SAFETY COUNCIL DIRECTOR Work Phone: [facility] 09-25-2024 08:58-0500 Body temperature 98.49 [degF] Rosaura Santacruz BLADE SHARPENER.SAFETY COUNCIL DIRECTOR Work Phone: [facility] 09-25-2024 08:58-0500 Body weight 124 kg Rosaura Santacruz BLADE SHARPENER.SAFETY COUNCIL DIRECTOR Work Phone: [facility] 02-11-2025 08:58-0500 Diastolic blood pressure 100 mm[Hg] Rosaura Santacruz BLADE SHARPENER.SAFETY COUNCIL DIRECTOR Work Phone: [facility] Comment on above: checked x 3 , states she has POTS 09-25-2024 08:58-0500 Heart rate 125 /min Rosaura Santacruz BLADE SHARPENER.SAFETY COUNCIL DIRECTOR Work Phone: [facility] 09-25-2024 08:58-0500 Respiratory rate 20 /min Rosaura Santacruz BLADE SHARPENER.SAFETY COUNCIL DIRECTOR Work Phone: [facility] 09-25-2024 08:58-0500 SaO2% (BldA) [Mass fraction] 96 % Rosaura Santacruz BLADE SHARPENER.SAFETY COUNCIL DIRECTOR Work Phone: [facility] 09-25-2024 08:58-0500 Systolic blood pressure 137 mm[Hg] Rosaura Santacruz BLADE SHARPENER.SAFETY COUNCIL DIRECTOR Work Phone: [facility] Comment on above: checked x 3 , states she has POTS 07-11-2024 11:08-0500 Body mass index (BMI) [Ratio] 55.46 kg/m2 Devante Clutter PA-C Work Phone: [facility] 07-11-2024 11:08-0500 Body temperature 98.71 [degF] Devante Clutter PA-C Work Phone: [facility] 07-11-2024 11:08-0500 Body weight 128.8 kg Devante Clutter PA-C Work Phone: [facility] 07-11-2024 11:08-0500 Diastolic blood pressure 80 mm[Hg] Devante Clutter PA-C Work Phone: [facility] 07-11-2024 11:08-0500 Heart rate 91 /min Devante Clutter PA-C Work Phone: [facility] 07-11-2024 11:08-0500 Respiratory rate 16 /min Devante Clutter PA-C Work Phone: [facility] 07-11-2024 11:08-0500 SaO2% (BldA) [Mass fraction] 98 % Devante Clutter PA-C Work Phone: [facility] 07-11-2024 11:08-0500 Systolic blood pressure 132 mm[Hg] Devante Geovanna PA-C Work Phone: [facility] 07-04-2024 15:23-0500 Heart rate 88 /min Moon Ruthann BLADE SHARPENER.SAFETY COUNCIL DIRECTOR Work Phone: [facility] 07-04-2024 15:00-0500 Body height 152.4 cm Moon Ruthann BLADE SHARPENER.SAFETY COUNCIL DIRECTOR Work Phone: [facility] 07-04-2024 15:00-0500 Body mass index (BMI) [Ratio] 54.16 kg/m2 Moon Ruthann BLADE SHARPENER.SAFETY COUNCIL DIRECTOR Work Phone: [facility] 07-04-2024 15:00-0500 Body weight 125.8 kg Moon Ruthann BLADE SHARPENER.SAFETY COUNCIL DIRECTOR Work Phone: [facility] 07-04-2024 15:00-0500 Diastolic blood pressure 80 mm[Hg] Moon Ruthann BLADE SHARPENER.SAFETY COUNCIL DIRECTOR Work Phone: [facility] 07-04-2024 15:00-0500 Respiratory rate 14 /min Moon Ruthann BLADE SHARPENER.SAFETY COUNCIL DIRECTOR Work Phone: [facility] 07-04-2024 15:00-0500 SaO2% (BldA) [Mass fraction] 99 % Moon Ruthann BLADE SHARPENER.SAFETY COUNCIL DIRECTOR Work Phone: [facility] 07-04-2024 15:00-0500 Systolic blood pressure 136 mm[Hg] Moon Ruthann BLADE SHARPENER.SAFETY COUNCIL DIRECTOR Work Phone: [facility] 05-14-2024 09:35-0400 Body height 153.[address] [facility] 05-14-2024 09:35-0400 Body mass index (BMI) [Ratio] 51.67 kg/m2 Rossy Cleveland RD [facility] 05-14-2024 09:35-0400 Body weight 122.[address] [facility] 04-03-2024 06:59-0400 Diastolic blood pressure 83 mm[Hg] Genaro Morales BLADE SHARPENER.ICE HOCKEY COACH Work Phone: [facility] 04-03-2024 06:59-0400 Heart rate 102 /min Genaro Morales BLADE SHARPENER.ICE HOCKEY COACH Work Phone: [facility] 04-03-2024 06:59-0400 Systolic blood pressure 138 mm[Hg] Genaro Morales BLADE SHARPENER.ICE HOCKEY COACH Work Phone: [facility] 04-03-2024 06:58-0400 Body mass index (BMI) [Ratio] 51.71 kg/m2 Genaro Morales BLADE SHARPENER.ICE HOCKEY COACH Work Phone: [facility] 04-03-2024 06:58-0400 Body weight 122.1 kg Genaro Morales BLADE SHARPENER.ICE HOCKEY COACH Work Phone: [facility] 04-03-2024 06:58-0400 Respiratory rate 16 /min Genaro Morales BLADE SHARPENER.ICE HOCKEY COACH Work Phone: [facility] 03-29-2024 09:58-0400 Body mass index (BMI) [Ratio] 51.63 kg/m2 Nurse Wstr Work Phone: [facility] 03-29-2024 09:58-0400 Body weight 121.93 kg Nurse Wstr Work Phone: [facility] 03-29-2024 09:58-0400 Diastolic blood pressure 74 mm[Hg] Nurse Wstr Work Phone: [facility] 03-29-2024 09:58-0400 Systolic blood pressure 122 mm[Hg] Nurse Wstr Work Phone: [facility] 03-15-2024 09:27-0400 Body mass index (BMI) [Ratio] 51.29 kg/m2 Karen Jenkins MD Work Phone: [facility] 03-15-2024 09:27-0400 Body weight 121.11 kg Karen Jenkins MD Work Phone: [facility] 03-15-2024 09:27-0400 Diastolic blood pressure 96 mm[Hg] Karen Jenkins MD Work Phone: [facility] 03-15-2024 09:27-0400 Systolic blood pressure 166 mm[Hg] Karen Jenkins MD Work Phone: [facility] 02-27-2024 15:23-0400 Body height 153.7 cm Ayaan Plotts BLADE SHARPENER.CNM Work Phone: [facility] 02-27-2024 15:23-0400 Body mass index (BMI) [Ratio] 51.09 kg/m2 Ayaan Plotts BLADE SHARPENER.CNM Work Phone: [facility] 02-27-2024 15:23-0400 Body weight 120.66 kg Ayaan Plotts BLADE SHARPENER.CNM Work Phone: [facility] 02-27-2024 15:23-0400 Diastolic blood pressure 102 mm[Hg] Ayaan Plotts BLADE SHARPENER.CNM Work Phone: [facility] 02-27-2024 15:23-0400 Systolic blood pressure 156 mm[Hg] Ayaan Plotts BLADE SHARPENER.CNM Work Phone: [facility] 01-17-2024 11:31-0400 Body mass index (BMI) [Ratio] 50.83 kg/m2 Karen Jenkins MD Work Phone: [facility] 01-17-2024 11:31-0400 Body weight 122.02 kg Karen Jenkins MD Work Phone: [facility] 01-17-2024 11:31-0400 Diastolic blood pressure 88 mm[Hg] Karen Jenkins MD Work Phone: [facility] 01-17-2024 11:31-0400 Systolic blood pressure 138 mm[Hg] Karen Jenkins MD Work Phone: [facility] 01-02-2024 16:42-0400 Body mass index (BMI) [Ratio] 50.64 kg/m2 Faustina Carcamo MD Work Phone: [facility] 01-02-2024 16:42-0400 Body temperature 98.6 [degF] Faustina Carcamo MD Work Phone: [facility] 01-02-2024 16:42-0400 Body weight 121.56 kg Faustina Carcamo MD Work Phone: [facility] 01-02-2024 16:42-0400 Diastolic blood pressure 78 mm[Hg] Faustina Carcamo MD Work Phone: [facility] 01-02-2024 16:42-0400 Heart rate 106 /min Faustina Carcamo MD Work Phone: [facility] 01-02-2024 16:42-0400 Respiratory rate 18 /min Faustina Carcamo MD Work Phone: [facility] 01-02-2024 16:42-0400 SaO2% (BldA) [Mass fraction] 98 % Faustina Carcamo MD Work Phone: [facility] 01-02-2024 16:42-0400 Systolic blood pressure 122 mm[Hg] Faustina Carcamo MD Work Phone: [facility] 12-14-2023 12:51-0400 Body mass index (BMI) [Ratio] 51.11 kg/m2 Anton Moomaw BLADE SHARPENER.SAFETY COUNCIL DIRECTOR Work Phone: [facility] 12-14-2023 12:51-0400 Body temperature 98.29 [degF] Anton Moomaw BLADE SHARPENER.SAFETY COUNCIL DIRECTOR Work Phone: [facility] 12-14-2023 12:51-0400 Body weight 122.7 kg Anton Moomaw BLADE SHARPENER.SAFETY COUNCIL DIRECTOR Work Phone: [facility] 12-14-2023 12:51-0400 Diastolic blood pressure 82 mm[Hg] Anton Moomaw BLADE SHARPENER.SAFETY COUNCIL DIRECTOR Work Phone: [facility] 12-14-2023 12:51-0400 Heart rate 128 /min Anton Moomaw BLADE SHARPENER.SAFETY COUNCIL DIRECTOR Work Phone: [facility] 12-14-2023 12:51-0400 Respiratory rate 21 /min Anton Moomaw BLADE SHARPENER.SAFETY COUNCIL DIRECTOR Work Phone: [facility] 12-14-2023 12:51-0400 SaO2% (BldA) [Mass fraction] 97 % Anton Landin APRN.SAFETY COUNCIL DIRECTOR Work Phone: [facility] 12-14-2023 12:51-0400 Systolic blood pressure 138 mm[Hg] Anton Landin APRN.SAFETY COUNCIL DIRECTOR Work Phone: [facility] 12-08-2023 14:47-0400 Body mass index (BMI) [Ratio] 51.94 kg/m2 Isela Street MD Work Phone: [facility] 12-08-2023 14:47-0400 Body weight 124.[address] MD Work Phone: [facility] 12-08-2023 14:47-0400 Diastolic blood pressure 89 mm[Hg] Isela Street MD Work Phone: [facility] 12-08-2023 14:47-0400 Heart rate 89 /min Isela Street MD Work Phone: [facility] 12-08-2023 14:47-0400 SaO2% (BldA) [Mass fraction] 97 % Isela Street MD Work Phone: [facility] 12-08-2023 14:47-0400 Systolic blood pressure 126 mm[Hg] Isela Street MD Work Phone: [facility] 10-27-2023 09:26-0400 Body weight 123.5 kg Qian Pena APRN.SAFETY COUNCIL DIRECTOR Work Phone: [facility] 10-27-2023 09:26-0400 Diastolic blood pressure 90 mm[Hg] Qian Pena APRN.SAFETY COUNCIL DIRECTOR Work Phone: [facility] 10-27-2023 09:26-0400 Heart rate 87 /min Qian Pena APRN.SAFETY COUNCIL DIRECTOR Work Phone: [facility] 10-27-2023 09:26-0400 SaO2% (BldA) [Mass fraction] 96 % Qian Pena BLADE SHARPENER.SAFETY COUNCIL DIRECTOR Work Phone: [facility] 10-27-2023 09:26-0400 Systolic blood pressure 136 mm[Hg] Qian Pena BLADE SHARPENER.SAFETY COUNCIL DIRECTOR Work Phone: [facility] 10-14-2023 11:07-0500 Body weight 123.83 kg Genaro Morales BLADE SHARPENER.ICE HOCKEY COACH Work Phone: [facility] 10-14-2023 11:07-0500 Diastolic blood pressure 88 mm[Hg] Genaro Morales BLADE SHARPENER.ICE HOCKEY COACH Work Phone: [facility] 10-14-2023 11:07-0500 Heart rate 128 /min Genaro Morales BLADE SHARPENER.ICE HOCKEY COACH Work Phone: [facility] 10-14-2023 11:07-0500 Respiratory rate 16 /min Genaro Morales BLADE SHARPENER.ICE HOCKEY COACH Work Phone: [facility] 10-14-2023 11:07-0500 Systolic blood pressure 118 mm[Hg] Genaro Morales BLADE SHARPENER.ICE HOCKEY COACH Work Phone: [facility] 07-22-2023 13:41-0500 Body height 154.9 cm Joe Contreras MD Work Phone: [facility] 07-22-2023 13:41-0500 Body weight 121.75 kg Joe Contreras MD Work Phone: [facility] 07-22-2023 13:41-0500 Diastolic blood pressure 84 mm[Hg] Joe Contreras MD Work Phone: [facility] 07-22-2023 13:41-0500 Systolic blood pressure 126 mm[Hg] Joe Contreras MD Work Phone: [facility] 06-06-2023 08:32-0400 Body temperature 97.59 [degF] Patsy One Month PA-C Work Phone: [facility] 06-06-2023 08:32-0400 Body weight 120.66 kg Patsy Towers PA-C Work Phone: [facility] 06-06-2023 08:32-0400 Diastolic blood pressure 93 mm[Hg] Patsy Ramseyers PA-C Work Phone: [facility] 06-06-2023 08:32-0400 Heart rate 111 /min Patsy Ramseyers PA-C Work Phone: [facility] 06-06-2023 08:32-0400 SaO2% (BldA) [Mass fraction] 98 % Patsy Ramseyers PA-C Work Phone: [facility] 06-06-2023 08:32-0400 Systolic blood pressure 131 mm[Hg] Patsy Ramseyers PA-C Work Phone: [facility] 05-20-2023 07:32-0400 Body weight 122.47 kg Genaro Morales BLADE SHARPENER.ICE HOCKEY COACH Work Phone: [facility] 05-20-2023 07:32-0400 Diastolic blood pressure 78 mm[Hg] Genaro Morales BLADE SHARPENER.ICE HOCKEY COACH Work Phone: [facility] 05-20-2023 07:32-0400 Heart rate 91 /min Genaro Morales BLADE SHARPENER.ICE HOCKEY COACH Work Phone: [facility] 05-20-2023 07:32-0400 Respiratory rate 16 /min Genaro Morales BLADE SHARPENER.ICE HOCKEY COACH Work Phone: [facility] 05-20-2023 07:32-0400 SaO2% (BldA) [Mass fraction] 97 % Genaro Morales BLADE SHARPENER.ICE HOCKEY COACH Work Phone: [facility] 05-20-2023 07:32-0400 Systolic blood pressure 119 mm[Hg] Genaro Morales BLADE SHARPENER.ICE HOCKEY COACH Work Phone: [facility] 02-25-2023 16:03-0400 Body height 154.9 cm Plivo BLADE SHARPENER.CNM Work Phone: [facility] 02-25-2023 16:03-0400 Body weight 118.75 kg Plivo BLADE SHARPENER.CNM Work Phone: [facility] 02-25-2023 16:03-0400 Diastolic blood pressure 76 mm[Hg] Ayaan Rowley BLADE SHARPENER.CNM Work Phone: [facility] 02-25-2023 16:03-0400 Systolic blood pressure 124 mm[Hg] Ayaan Rowley BLADE SHARPENER.CNM Work Phone: [facility] 02-07-2023 11:11-0400 Body temperature 97.5 [degF] Krislyn Aberegg PA Work Phone: [facility] 02-07-2023 11:11-0400 Diastolic blood pressure 64 mm[Hg] Krislyn Aberegg PA Work Phone: [facility] 02-07-2023 11:11-0400 Heart rate 65 /min Krislyn Aberegg PA Work Phone: [facility] 02-07-2023 11:11-0400 Respiratory rate 21 /min Krislyn Aberegg PA Work Phone: [facility] 02-07-2023 11:11-0400 SaO2% (BldA) [Mass fraction] 98 % Krislyn Aberegg PA Work Phone: [facility] 02-07-2023 11:11-0400 Systolic blood pressure 100 mm[Hg] Krislyn Aberegg PA Work Phone: [facility] 12-03-2022 14:14-0400 Body weight 118.89 kg Silvia Tucker MD Work Phone: [facility] 12-03-2022 14:14-0400 Diastolic blood pressure 88 mm[Hg] Silvia Tucker MD Work Phone: [facility] 12-03-2022 14:14-0400 Heart rate 110 /min Silvia Tucker MD Work Phone: [facility] 12-03-2022 14:14-0400 Systolic blood pressure 132 mm[Hg] Silvia Tucker MD Work Phone: [facility] 09-20-2022 19:49-0500 Body temperature 97.59 [degF] Miriam Ortiz MD Work Phone: [facility] 09-20-2022 19:49-0500 Diastolic blood pressure 86 mm[Hg] Miriam Ortiz MD Work Phone: [facility] 09-20-2022 19:49-0500 Heart rate 102 /min Miriam Ortiz MD Work Phone: [facility] 09-20-2022 19:49-0500 Respiratory rate 16 /min Miriam Ortiz MD Work Phone: [facility] 09-20-2022 19:49-0500 SaO2% (BldA) [Mass fraction] 98 % Miriam Ortiz MD Work Phone: [facility] 09-20-2022 19:49-0500 Systolic blood pressure 133 mm[Hg] Miriam Ortiz MD Work Phone: [facility] 08-11-2022 16:52-0500 Body temperature 97.2 [degF] Faustina Carcamo MD Work Phone: [facility] 08-11-2022 16:52-0500 Body weight 117.03 kg Faustina Carcamo MD Work Phone: [facility] 08-11-2022 16:52-0500 Diastolic blood pressure 68 mm[Hg] Faustina Carcamo MD Work Phone: [facility] 08-11-2022 16:52-0500 Heart rate 107 /min Faustina Carcamo MD Work Phone: [facility] 08-11-2022 16:52-0500 Respiratory rate 18 /min Faustina Carcamo MD Work Phone: [facility] 08-11-2022 16:52-0500 SaO2% (BldA) [Mass fraction] 99 % Faustina Carcamo MD Work Phone: [facility] 08-11-2022 16:52-0500 Systolic blood pressure 122 mm[Hg] Faustina Carcamo MD Work Phone: [facility] 07-14-2022 15:41-0500 Body weight 120.93 kg Ayaan Plotedison BLADE SHARPENER.CNM Work Phone: [facility] 07-14-2022 15:41-0500 Diastolic blood pressure 72 mm[Hg] Ayaan Rowley BLADE SHARPENER.CNM Work Phone: [facility] 07-14-2022 15:41-0500 Systolic blood pressure 128 mm[Hg] Ayaan Rowley BLADE SHARPENER.CNM Work Phone: [facility] 06-28-2022 15:33-0500 Body temperature 97.39 [degF] Marina Goodrich BLADE SHARPENER-SAFETY COUNCIL DIRECTOR Work Phone: [facility] 06-28-2022 15:33-0500 Diastolic blood pressure 82 mm[Hg] Marina Goodrich BLADE SHARPENER-SAFETY COUNCIL DIRECTOR Work Phone: [facility] 06-28-2022 15:33-0500 Heart rate 92 /min Marina Goodrich BLADE SHARPENER-SAFETY COUNCIL DIRECTOR Work Phone: [facility] 06-28-2022 15:33-0500 Respiratory rate 16 /min Marina Goodrich BLADE SHARPENER-SAFETY COUNCIL DIRECTOR Work Phone: [facility] 06-28-2022 15:33-0500 SaO2% (BldA) [Mass fraction] 94 % Marina Goodrich BLADE SHARPENER-SAFETY COUNCIL DIRECTOR Work Phone: [facility] 06-28-2022 15:33-0500 Systolic blood pressure 119 mm[Hg] Marina Goodrich BLADE SHARPENER-SAFETY COUNCIL DIRECTOR Work Phone: [facility] 05-05-2022 12:30-0400 Body mass index (BMI) [Ratio] 49.13 kg/m2 Casey Kern MD Work Phone: [facility] 05-05-2022 12:30-0400 Body weight 121.11 kg Casey Kern MD Work Phone: [facility] 05-05-2022 12:30-0400 Diastolic blood pressure 76 mm[Hg] Casey Kern MD Work Phone: [facility] 05-05-2022 12:30-0400 Heart rate 78 /min Casey Kern MD Work Phone: [facility] 05-05-2022 12:30-0400 SaO2% (BldA) [Mass fraction] 99 % Casey Kern MD Work Phone: [facility] 05-05-2022 12:30-0400 Systolic blood pressure 102 mm[Hg] Casey Kern MD Work Phone: [facility] 05-02-2022 09:32-0400 Body height 156.2 cm Ovi Herrera DO Work Phone: [facility] 05-02-2022 09:32-0400 Body mass index (BMI) [Ratio] 50.38 kg/m2 Ovi Herrera DO Work Phone: [facility] 05-02-2022 09:32-0400 Body temperature 98.1 [degF] Ovi Herrera DO Work Phone: [facility] 05-02-2022 09:32-0400 Body weight 122.92 kg Ovi Herrera DO Work Phone: [facility] 05-02-2022 09:32-0400 Diastolic blood pressure 82 mm[Hg] Ovi Herrera DO Work Phone: [facility] 05-02-2022 09:32-0400 Heart rate 93 /min Ovi Herrera DO Work Phone: [facility] 05-02-2022 09:32-0400 Respiratory rate 17 /min Ovi Herrera DO Work Phone: [facility] 05-02-2022 09:32-0400 SaO2% (BldA) [Mass fraction] 95 % Ovi Herrera DO Work Phone: [facility] 05-02-2022 09:32-0400 Systolic blood pressure 135 mm[Hg] Ovi Herrera DO Work Phone: [facility] 04-16-2022 08:05-0400 Body height 157 cm Dhanu Mingo MBBS Work Phone: [facility] 04-16-2022 08:05-0400 Body mass index (BMI) [Ratio] 49.87 kg/m2 Dhanu Mingo MBBS Work Phone: [facility] 04-16-2022 08:05-0400 Body weight 122.92 kg Dhanu Mingo MBBS Work Phone: [facility] 04-16-2022 08:05-0400 Diastolic blood pressure 88 mm[Hg] Dhanu Mingo MBBS Work Phone: [facility] 04-16-2022 08:05-0400 Heart rate 102 /min Dhanu Mingo MBBS Work Phone: [facility] 04-16-2022 08:05-0400 SaO2% (BldA) [Mass fraction] 98 % Dhanu Mingo MBBS Work Phone: [facility] 04-16-2022 08:05-0400 Systolic blood pressure 128 mm[Hg] Dhanu Mingo MBBS Work Phone: [facility] 03-30-2022 17:26-0400 Body weight 120.2 kg Faustina Carcamo MD Work Phone: [facility] 03-30-2022 17:26-0400 Diastolic blood pressure 70 mm[Hg] Faustina Carcamo MD Work Phone: [facility] 03-30-2022 17:26-0400 Heart rate 100 /min Faustina Carcamo MD Work Phone: [facility] 03-30-2022 17:26-0400 SaO2% (BldA) [Mass fraction] 97 % Faustina Carcamo MD Work Phone: [facility] 03-30-2022 17:26-0400 Systolic blood pressure 102 mm[Hg] Faustina Carcamo MD Work Phone: [facility] 01-13-2022 09:05-0400 Body weight 120.66 kg Ayaan Plotts BLADE SHARPENER.CNM Work Phone: [facility] 01-13-2022 09:05-0400 Diastolic blood pressure 76 mm[Hg] Ayaan Plotts BLADE SHARPENER.CNM Work Phone: [facility] 01-13-2022 09:05-0400 Systolic blood pressure 122 mm[Hg] Ayaan Plotts BLADE SHARPENER.CNM Work Phone: [facility] 01-05-2022 14:23-0400 Body weight 119.3 kg Genaro Morales BLADE SHARPENER.ICE HOCKEY COACH Work Phone: [facility] 01-05-2022 14:23-0400 Diastolic blood pressure 88 mm[Hg] Genaro Morales BLADE SHARPENER.ICE HOCKEY COACH Work Phone: [facility] 01-05-2022 14:23-0400 Heart rate 114 /min Genaro Morales BLADE SHARPENER.ICE HOCKEY COACH Work Phone: [facility] 01-05-2022 14:23-0400 Respiratory rate 16 /min Genaro Morales BLADE SHARPENER.ICE HOCKEY COACH Work Phone: [facility] 01-05-2022 14:23-0400 SaO2% (BldA) [Mass fraction] 97 % Genaro Morales BLADE SHARPENER.ICE HOCKEY COACH Work Phone: [facility] 01-05-2022 14:23-0400 Systolic blood pressure 122 mm[Hg] Genaro Morales BLADE SHARPENER.ICE HOCKEY COACH Work Phone: [facility] 12-04-2021 09:34-0400 Body weight 120.66 kg Ayaan Rowley BLADE SHARPENER.CNM Work Phone: [facility] 12-04-2021 09:34-0400 Diastolic blood pressure 68 mm[Hg] Ayaan Harryts BLADE SHARPENER.CNM Work Phone: [facility] 12-04-2021 09:34-0400 Systolic blood pressure 112 mm[Hg] Ayaan Rowley BLADE SHARPENER.CNM Work Phone: [facility] 11-17-2021 12:14-0400 Body height 152.4 cm Yair Lyons MD Work Phone: [facility] 11-17-2021 12:14-0400 Body weight 120.66 kg Yair Loyns MD Work Phone: [facility] 09-22-2021 18:17-0500 Body weight 117.94 kg Faustina Carcamo MD Work Phone: [facility] 09-22-2021 18:17-0500 Diastolic blood pressure 78 mm[Hg] Faustina Carcamo MD Work Phone: [facility] 09-22-2021 18:17-0500 Heart rate 86 /min Faustina Carcamo MD Work Phone: [facility] 09-22-2021 18:17-0500 Systolic blood pressure 112 mm[Hg] Faustina Carcamo MD Work Phone: [facility] Encounters Encounter Date Encounter Type Care Provider Facility Start: 01-21-2025 End: 01-21-2025 ambulatory Faustina Carcamo Facility:[facility] Start: 01-11-2025 End: 01-11-2025 ambulatory [facility] [place] Start: 01-11-2025 End: 01-11-2025 Patient encounter procedure [facility] [place] Comment on above: Update from Appoint ent Start: 01-09-2025 End: 01-09-2025 Patient encounter procedure Petra Beckman BLADE SHARPENER.SAFETY COUNCIL DIRECTOR Work Phone: [facility] Comment on above: Panic disorder with agoraphobia (Primary Dx); Immunosuppression (HCC); Periodic fever syndrome (HCC); Gastroenteritis Start: 01-09-2025 End: 01-09-2025 ambulatory [facility] Facility:[facility] Start: 12-21-2024 End: 12-21-2024 Patient encounter procedure Kedar BOATENG Work Phone: [facility] Comment on above: Acute non-recurrent maxillary sinusitis (Primary Dx); Sore throat Start: 12-21-2024 End: 12-21-2024 ambulatory KEDAR VARELA Facility:[facility] Start: 12-18-2024 End: 12-18-2024 Telephone encounter Qian Hillman MD Work Phone: OB/Gynecology Comment on above: Patient Question (Qu estions before apt 12/19) Start: 12-18-2024 End: 12-18-2024 Patient encounter procedure Silvia Tucker MD Work Phone: Rheumatology Comment on above: SO-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); Immunosuppression (HCC) Start: 12-18-2024 End: 12-18-2024 [facility] Facility:[facility] Start: 11-24-2024 End: 01-24-2025 Follow-up encounter Madhu Grande MD Work Phone: [facility] Start: 11-23-2024 End: 11-23-2024 [facility] Facility:[facility] Start: 11-23-2024 End: 11-26-2024 Telephone encounter Tiffanie Barrera APRN.CNP Work Phone: OB/Gynecology Comment on above: Patient Question Start: 11-22-2024 End: 11-22-2024 Telemedicine consultation with patient Silvia Tucker MD Work Phone: Rheumatology/Pulmona ry Start: 11-22-2024 End: 11-22-2024 ambulatory Silvia Tucker MD Work Phone: Rheumatology/Pulmona ry Comment on above: SO-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); Periodic fever syndrome (HCC) Start: 11-22-2024 End: 11-22-2024 ambulatory [facility] Facility:[facility] Start: 11-22-2024 End: 11-22-2024 Patient encounter procedure Kedar BOATENG Work Phone: [facility] Comment on above: Sore throat (Primary Dx); Exudative tonsillitis Start: 11-19-2024 End: 11-19-2024 ambulatory [facility] Facility:[facility] Start: 11-19-2024 End: 11-19-2024 Patient encounter procedure Rosaura Santacruz APRN.CNP Work Phone: [facility] Comment on above: Pharyngitis, unspeci fied etiology (Primary Dx) Start: 11-09-2024 End: 11-09-2024 Emergency department patient visit [facility] Facility:[facility] Start: 11-08-2024 End: 11-09-2024 ambulatory Diane Melendrez RN NURSE MEDIA ANALYST Comment on above: Bradycardia Start: 10-31-2024 End: 10-31-2024 ambulatory [facility] Facility:[facility] Start: 10-31-2024 End: 10-31-2024 Office outpatient visit 25 minutes Nicholas Dorantes APRN.SAFETY COUNCIL DIRECTOR Work Phone: [facility] Comment on above: Laceration of left h and without foreign body, initial encounter (Primary Dx) Start: 10-29-2024 End: 10-29-2024 E-mail encounter from caregiver Isela Street MD Work Phone: Allergy Start: 10-29-2024 End: 10-29-2024 Follow-up encounter Isela Street MD Work Phone: Allergy Comment on above: Annual follow up Start: 10-29-2024 End: 10-29-2024 Telephone encounter Silvia Tucker MD Work Phone: Rheumatology Comment on above: Patient Update Start: 10-25-2024 End: 10-26-2024 Refill Faustina Carcamo MD Work Phone: [facility] Comment on above: Refill Request Start: 10-24-2024 End: 10-24-2024 Subsequent hospital visit by physician [facility] Work Phone: Radiology Comment on above: Injury of left wrist , initial encounter [S69.92XA] Start: 10-24-2024 End: 10-24-2024 ambulatory [facility] D [facility] Facility:[facility] Start: 10-24-2024 End: 10-24-2024 Patient encounter procedure Steven Harris APRN.SAFETY COUNCIL DIRECTOR Work Phone: [facility] Comment on above: Injury of left wrist , initial encounter (Primary Dx) Start: 10-17-2024 End: 10-17-2024 ambulatory FAUSTINA D [facility] Facility:[facility] Start: 10-16-2024 End: 10-16-2024 Office outpatient visit 25 minutes Faustina Carcamo MD Work Phone: Internal [facility] [place] Comment on above: Vitamin D deficiency (Primary Dx); Other fatigue; Myalgias; Polyarthritis; Muscle weakness (generalized); Abnormal TSH Start: 10-16-2024 End: 10-16-2024 Specialty Pharmacy Ramin Glasgow [facility] Comment on above: SPP Inflammatory Con ditions - Medication Refill (Ilaris) Start: 09-25-2024 End: 11-25-2024 Follow-up encounter Rosaura Santacruz APRN.SAFETY COUNCIL DIRECTOR Work Phone: [facility] Start: 09-25-2024 End: 09-25-2024 Patient encounter procedure Rosaura Santacruz APRN.SAFETY COUNCIL DIRECTOR Work Phone: [facility] Comment on above: URI, acute (Primary Dx); Acute cough Start: 09-25-2024 End: 09-25-2024 [facility] Facility:[facility] Start: 09-25-2024 End: 09-25-2024 Subsequent hospital visit by physician Paco [facility] Work Phone: Radiology Comment on above: Acute cough [R05.1] Start: 09-13-2024 End: 09-13-2024 Specialty Pharmacy Ramin Glasgow [facility] Comment on above: SPP Inflammatory Con ditions - Medication Refill (Ilaris) Start: 09-11-2024 End: 09-11-2024 ambulatory Moon Beavers BLADE SHARPENER.SAFETY COUNCIL DIRECTOR Work Phone: [facility] [place] Comment on above: Situational anxiety (Primary Dx) Start: 09-11-2024 End: 09-11-2024 Telemedicine consultation with patient Moon Beavers BLADE SHARPENER.SAFETY COUNCIL DIRECTOR Work Phone: [facility] [place] Start: 09-06-2024 End: 09-07-2024 Telephone encounter Faustina Carcamo MD Work Phone: [facility] [place] Comment on above: referral question Start: 08-26-2024 End: 08-27-2024 Refill Faustina Carcamo MD Work Phone: [facility] [place] Comment on above: Refill Request Start: 08-20-2024 End: 08-20-2024 Office outpatient visit 15 minutes Faustina Carcamo MD Work Phone: [facility] [place] Comment on above: PVC (premature ventr icular contraction) (Primary Dx); Panic attacks; Panic disorder with agoraphobia; PTSD (post-traumatic stress disorder); Postural orthostatic tachycardia syndrome (POTS); Pleurisy Start: 08-20-2024 End: 08-20-2024 ambulatory FAUSTINA CARCAMO Facility:[facility] Start: 08-02-2024 End: 08-02-2024 Specialty Pharmacy Ramin Glasgow [facility] Comment on above: SPP Inflammatory Con ditions - Medication Refill (Ilaris) Start: 07-30-2024 End: 07-30-2024 Telemedicine consultation with patient Silvia Tucker MD Work Phone: Rheumatology Start: 07-30-2024 End: 07-30-2024 ambulatory Silvia Tucker MD Work Phone: Rheumatology Comment on above: Periodic fever syndr ome (HCC) (Primary Dx); SO-JILLIAN (systemic onset juvenile idiopathic arthritis) (HCC); Immunosuppression (HCC) Start: 07-27-2024 End: 07-27-2024 [facility] Cindy Mac RD Work Phone: Chronic Care Comment on above: Dietary counseling a nd surveillance (Primary Dx); Bulimia nervosa, unspecified severity; Eating disorder, unspecified type; Obesity, Class III, BMI 40-49.9 (morbid obesity) (HCC) Start: 07-25-2024 End: 07-25-2024 Telephone encounter Silvia Tucker MD Work Phone: Rheumatology Comment on above: Patient Question Start: 07-20-2024 End: 07-20-2024 Emergency department patient visit [facility] Facility:[facility] Start: 07-19-2024 End: 07-19-2024 Telephone encounter Faustina Carcamo MD Work Phone: Internal [facility] [place] Comment on above: Patient Update; Medi cation Request Start: 07-11-2024 End: 07-11-2024 ambulatory FAUSTINA CARCAMO Facility:[facility] Start: 07-11-2024 End: 07-11-2024 Office outpatient visit 25 minutes Devante Austin PA-C Work Phone: [facility] Comment on above: Acute recurrent sinu sitis, unspecified location (Primary Dx) Start: 07-04-2024 End: 07-04-2024 Patient encounter procedure Moon Beavers BLADE SHARPENER.SAFETY COUNCIL DIRECTOR Work Phone: [facility] [place] Comment on above: Epigastric abdominal pain (Primary Dx); Heartburn Start: 07-04-2024 End: 07-04-2024 ambulatory FAUSTINA CARCAMO Facility:[facility] Start: 07-02-2024 End: 07-02-2024 Specialty Pharmacy Ramin Glasgow [facility] Comment on above: SPP Inflammatory Con ditions - Medication Refill (Ilaris) Start: 06-14-2024 End: 06-14-2024 Telephone encounter Silvia Tucker MD Work Phone: Rheumatology Comment on above: Patient Update Start: 06-08-2024 End: 06-08-2024 ambulatory Genaro Morales APRN.ICE HOCKEY COACH Work Phone: Internal Medicine [place] Comment on above: Periodic fever syndr ome (HCC) (Primary Dx); Pain in joint, multiple sites; Other chest pain; Palpitations SPP Inflammatory Con ditions - Medication Refill (Ilaris) Start: 06-08-2024 End: 06-08-2024 Telemedicine consultation with patient Genaro Morales APRN.ICE HOCKEY COACH Work Phone: [facility] [place] Start: 06-07-2024 End: 06-07-2024 Emergency department patient visit Ermias Kelly Facility:[facility] Start: 06-06-2024 End: 06-07-2024 ambulatory Silvia Tucker MD Work Phone: Rheumatology Comment on above: Flare Start: 05-15-2024 End: 05-15-2024 Specialty Pharmacy Ramin Glasgow [facility] Comment on above: SPP Inflammatory Con ditions - Medication Refill (Ilaris) Start: 05-14-2024 End: 05-14-2024 Nutrition therapy Rossy Cleveland RD Nutrition Therapy Comment on above: Assessment; Patient Education Start: 05-14-2024 End: 05-14-[address] Nutrition Therapy Start: 05-04-2024 End: 05-08-2024 Telephone encounter Faustina Carcamo MD Work Phone: [facility] [place] Comment on above: Orders (Adjustable R ollator) Start: 04-30-2024 End: 04-30-2024 Telephone encounter Faustina Carcamo MD Work Phone: Family [facility] [place] Comment on above: Orders Start: 04-30-2024 End: 04-30-2024 ambulatory FAUSTINA CARCAMO Facility:[facility] Start: 04-30-2024 End: 04-30-2024 Office outpatient visit 10 minutes Faustina Carcamo MD Work Phone: [facility] [place] Comment on above: Bilateral hip pain ( Primary Dx); Chronic pain of both knees; POTS (postural orthostatic tachycardia syndrome); Arthritis; Mobility poor Start: 04-24-2024 End: 04-24-2024 Refill Silvia Tucker MD Work Phone: [facility] Comment on above: Refill Request Start: 04-19-2024 End: 04-19-2024 ambulatory Ramin Glasgow [facility] Start: 04-19-2024 End: 04-19-2024 Patient encounter procedure Ramin Pugatiffany [facility] Comment on above: SPP Inflammatory Con ditions - Treatment Referral (Ilaris); Insurance Authorization ([place]?) Start: 04-17-2024 End: 04-18-2024 Refill Silvia Tucker MD Work Phone: Rheumatology Comment on above: Refill Request Start: 04-03-2024 End: 04-03-2024 Office outpatient visit 25 minutes Genaro Morales APRN.CNS Work Phone: [facility] [place] Comment on above: Vitamin D deficiency (Primary Dx); Class 3 severe obesity due to excess calories with body mass index (BMI) of 50.0 to 59.9 in adult, unspecified whether serious comorbidity present ([facility]) Start: 04-03-2024 End: 04-06-2024 Refill Silvia Tucker MD Work Phone: Rheumatology Comment on above: Appointment Start: 04-02-2024 End: 04-02-2024 ambulatory FAUSTINA CARCAMO Facility:[facility] Start: 04-02-2024 End: 04-02-2024 Subsequent hospital visit by physician Xr [facility] Work Phone: Radiology Comment on above: SO-JILLIAN (systemic ons et juvenile idiopathic arthritis) ([facility]) [M08.20] Start: 03-31-2024 End: 04-02-2024 ambulatory Silvia Tucker MD Work Phone: Rheumatology Comment on above: Question re: Pleuris y Start: 03-29-2024 Telephone encounter Ayaan mar APRN.CNM Work Phone: OB/Gynecology Comment on above: Orders (HPV) Start: 03-29-2024 End: 03-29-2024 ambulatory [facility] Facility:[facility] Start: 03-29-2024 End: 03-29-2024 Nursing evaluation of patient and report Nurse Child Care Counselor [facility] Work Phone: OB/Gynecology Comment on above: Need for prophylacti c vaccination/inoculation against viral disease (Primary Dx) Start: 03-20-2024 E-mail encounter fro m caregiver Selma Zambrano DO Work Phone: Cardiology Start: 03-20-2024 Patient encounter procedure Selma Zambrano DO Work Phone: Cardiology Comment on above: Appointment Start: 03-19-2024 ambulatory Patjd chong MD Work Phone: Rheumatology Comment on above: Medicaid Information for Ilaris Start: 03-15-2024 End: 03-15-2024 ambulatory [facility] Facility:[facility] Start: 03-15-2024 End: 03-15-2024 Patient encounter procedure Karen Jenkins MD Work Phone: OB/Gynecology Comment on above: Cervical high risk H PV (human papillomavirus) test positive (Primary Dx); Nonavalent human papilloma virus (HPV) vaccine for HPV types 6, 11, 16, 18, 31, 33, 45, 52, and 58 administered Start: 03-12-2024 Telephone encounter Nani chapin BLADE SHARPENER.SAFETY COUNCIL DIRECTOR Work Phone: OB/Gynecology Comment on above: Results; Colposcopy Start: 03-12-2024 End: 03-12-2024 Patient encounter procedure Silvia Tucker MD Work Phone: Rheumatology Comment on above: SO-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); Immunosuppression (HCC); Vitamin D deficiency Start: 03-12-2024 End: 03-12-2024 ambulatory PATJD HERRMANNPRASERÓscar Facility:[facility] Start: 02-27-2024 End: 02-27-2024 Patient encounter procedure Ayaan Rowley BLADE SHARPENER.CNM Work Phone: OB/Gynecology Comment on above: Encounter for gyneco logical examination (general) (routine) without abnormal findings (Primary Dx); Screening for cervical cancer; Encounter for screening for human papillomavirus (HPV); Cervical high risk human papillomavirus (HPV) DNA test positive; Pelvic pain in female Start: 02-27-2024 End: 02-27-2024 Patient encounter status Ayaan Rowley BLADE SHARPENER.CNM Work Phone: [facility] Start: 02-27-2024 End: 02-27-2024 [facility] Start: 02-27-2024 Encounter for gynecological examination (general) (routine) without abnormal findings AYAAN ROWLEY [facility] Start: 02-13-[address] MD Work Phone: Allergy Comment on above: lab results Start: 02-13-2024 E-mail encounter fro m caregiver Isela Street MD Work Phone: Allergy Start: 02-09-2024 End: 02-09-2024 [facility] Start: 01-17-2024 End: 01-17-2024 ambulatory [facility] D [facility] Facility:[facility] Start: 01-17-2024 End: 01-17-2024 Patient encounter procedure Karen Jenkins MD Work Phone: OB/Gynecology Comment on above: Abnormal uterine ble eding (AUB) (Primary Dx) Start: 01-02-2024 End: 01-02-2024 Office outpatient visit [...] use of medication Start: 12-14-2023 End: 12-14-2023 Patient encounter procedure Anton Landin APRN.SAFETY COUNCIL DIRECTOR Work Phone: [facility] Comment on above: Diarrhea, unspecifie d type (Primary Dx); Acute cough; Bacterial sinusitis Start: 12-08-2023 End: 12-08-2023 Patient encounter procedure Isela Street MD Work Phone: Allergy Comment on above: Toxic effect of late x, accidental (unintentional), subsequent encounter (Primary Dx); Seasonal allergic rhinitis due to pollen; Adverse reaction to food, subsequent encounter; Oral allergy syndrome, subsequent encounter Start: 10-27-2023 End: 10-27-2023 Patient encounter procedure Qian Pena APRN.SAFETY COUNCIL DIRECTOR Work Phone: Cardiology Comment on above: POTS (postural ortho static tachycardia syndrome) (Primary Dx) Start: 10-24-2023 End: 10-24-2023 ambulatory Faustina Carcamo MD Work Phone: Internal Medicine [place] Comment on above: Latex allergy (Prima ry Dx); Vitamin D deficiency; Elevated TSH; Inappropriate sinus node tachycardia (HCC) Start: 10-24-2023 End: 10-24-2023 Telemedicine consultation with patient Faustina Carcamo MD Work Phone: [facility] Start: 10-14-2023 End: 10-14-2023 Subsequent hospital visit by physician Xr [facility] Work Phone: Radiology Comment on above: Chronic left shoulde r pain [M25.512, G89.29] Start: 10-14-2023 End: 10-14-2023 Office outpatient visit 15 minutes Genaro Morales APRN.ICE HOCKEY COACH Work Phone: [facility] [place] Comment on above: Screen for STD (sexu ally transmitted disease) (Primary Dx); Chronic left shoulder pain Start: 09-23-2023 Refill Patjd chong MD Work Phone: Rheumatology Comment on above: Refill Request Start: 08-19-2023 End: 08-19-2023 ambulatory Rob Toledo PA-C Work Phone: Neurology Comment on above: Atypical facial pain (Primary Dx); Chronic migraine without aura, with intractable migraine, so stated, with status migrainosus Start: 08-19-2023 End: 08-19-2023 Telemedicine consultation with patient Rob Paris BELL Work Phone: [facility] Start: 07-28-2023 Refill Patjd chong MD Work Phone: Rheumatology/Pulmona ry Start: 07-25-2023 End: 07-25-2023 ambulatory Ultrasound Stro Work Phone: OB/Gynecology Start: 07-25-2023 End: 07-25-2023 Patient encounter procedure Ultrasound Child Care Counselor [facility] Work Phone: [facility] Start: 07-22-2023 End: 07-22-2023 Office outpatient visit 15 minutes Joe Contreras MD Work Phone: OB/Gynecology Comment on above: Pelvic pain in femal e (Primary Dx) Start: 07-06-2023 ambulatory Patjd chong MD Work Phone: Rheumatology/Pulmona ry Comment on above: Regarding lab tests Start: 07-02-2023 ambulatory Patjd chong MD Work Phone: Rheumatology/Pulmona ry Comment on above: Labs Question Start: 06-23-2023 Refill Genaro RICCIICE HOCKEY COACH Work Phone: Internal Medicine [place] Comment on above: Refill Request Start: 06-21-2023 Telephone encounter Yair membreno MD Work Phone: Neurology Comment on above: Patient Question Start: 06-06-2023 End: 06-06-2023 Orders Only Patsy Mobley PA-C Work Phone: [facility] Comment on above: Upper back pain (Eleanor yony Dx) Upper back pain (Eleanor yony Dx); Other acute gastritis without hemorrhage; Fever, unspecified fever cause Upper back pain [M54 .9] Start: 05-31-2023 End: 06-01-2023 ambulatory PATOMPONG UNGPRASERT Facility:[facility] Start: 05-25-2023 End: 05-25-2023 ambulatory Gonzalez Reyes PA-C Work Phone: Telemedicine Comment on above: Acute cystitis witho ut hematuria (Primary Dx) Start: 05-20-2023 End: 05-20-2023 Office outpatient visit 25 minutes Genaro Garciafiliberto MENDEZ Work Phone: Internal Medicine [place] Comment on above: Other migraine witho ut status migrainosus, intractable (Primary Dx); Abnormal EKG; POTS (postural orthostatic tachycardia syndrome); Elevated TSH Start: 05-19-2023 Telephone encounter Faustina regan MD Work Phone: Internal Medicine [place] Comment on above: Patient Question Start: 05-19-2023 End: 05-19-2023 Emergency department patient visit JONATHAN NIEVES Facility:[facility] Start: 04-25-2023 End: 04-25-2023 ambulatory Yair Lyons MD Work Phone: Neurology Comment on above: Intractable chronic migraine without aura and without status migrainosus (Primary Dx) Start: 04-25-2023 End: 04-25-2023 Telemedicine consultation with patient Yair Lyons MD Work Phone: [facility] Start: 04-21-2023 Refill Yair de los santos MD Work Phone: Neurology Comment on above: Refill Request Start: 04-18-2023 End: 04-18-2023 ambulatory Aki Jiménez BLADE SHARPENER.SAFETY COUNCIL DIRECTOR Work Phone: Telemedicine Comment on above: Treatment not availa ble (Primary Dx) Laryngitis (Primary Dx); Cough, unspecified type Start: 04-18-2023 End: 04-18-2023 Telemedicine consultation with patient Aki Jiménez BLADE SHARPENER.SAFETY COUNCIL DIRECTOR Work Phone: [facility] Start: 04-12-2023 ambulatory [facility] Comment on above: [employer] insurance ap proval - action required Refill Request Start: 04-12-2023 E-mail encounter fro m caregiver [facility] Start: 04-06-2023 Refill Silvia chong MD Work Phone: Rheumatology Comment on above: SPP Inflammatory Con ditions - Treatment Referral (Actemra); Insurance Authorization (PA submitted) Start: 03-29-2023 ambulatory Silvia chong MD Work Phone: Rheumatology/Pulmona ry Comment on above: Labs and update Start: 03-29-2023 E-mail encounter evelina olmedo caregiver Silvia Tucker MD Work Phone: [facility] Start: 03-25-2023 End: 03-26-2023 ambulatory SILVIA TUCKER Facility:[facility] Start: 03-10-2023 Telephone encounter Silvia Tucker MD Work Phone: Rheumatology Comment on above: Patient Question (Ap peal ); Medication Preauthorization Start: 03-02-2023 ambulatory Silvia chong MD Work Phone: Rheumatology Comment on above: Flare Start: 02-25-2023 End: 02-25-2023 Patient encounter procedure Ayaan Harryedison BLADE SHARPENER.CNM Work Phone: OB/Gynecology Comment on above: Encounter for gyneco logical examination (general) (routine) without abnormal findings (Primary Dx); Screening for STD (sexually transmitted disease) Start: 02-25-2023 End: 02-25-2023 Patient encounter status Ayaan Rowley BLADE SHARPENER.CNM Work Phone: [facility] Start: 02-16-2023 Refill Silvia chong MD Work Phone: Rheumatology Comment on above: Refill Request Medication Authoriza tion Start: 02-07-2023 End: 02-07-2023 Patient encounter procedure Kedar BOATENG Work Phone: [facility] Comment on above: Sore throat (Primary Dx); Acute otitis media, left Start: 01-12-2023 Telephone encounter Silvia Tucker MD Work Phone: Rheumatology Comment on above: Insurance Authorizat ion Start: 12-17-2022 End: 12-17-2022 Office outpatient visit 40 minutes Faustina Carcamo MD Work Phone: Internal Medicine [place] Comment on above: PTSD (post-traumatic stress disorder) (Primary Dx); Migraine with aura and without status migrainosus, not intractable; POTS (postural orthostatic tachycardia syndrome); Periodic fever syndrome (HCC); Pain in joint, multiple sites; Panic disorder with agoraphobia; Irritable bowel syndrome with both constipation and diarrhea Start: 12-16-2022 Telephone encounter Faustina regan MD Work Phone: Internal Medicine [place] Comment on above: [facility] Start: 12-15-2022 Telephone encounter Faustina regan MD Work Phone: [facility] Medicine [place] Comment on above: requesting copy of f orm faxed earlier Start: 12-09-2022 ambulatory Faustina de los santos MD Work Phone: [facility] Start: 12-09-2022 Follow-up encounter Faustina regan MD Work Phone: Internal Medicine [place] Comment on above: ADA Follow Up Start: 12-09-2022 Telephone encounter Faustina regan MD Work Phone: [facility] [place] Comment on above: Letter (Needs letter for work.) Start: 12-03-2022 End: 12-03-2022 Patient encounter procedure Silvia Tucker MD Work Phone: Rheumatology Comment on above: Periodic fever syndr ome (HCC) (Primary Dx); Immunosuppression (HCC) Start: 11-17-2022 Telephone encounter Faustina regan MD Work Phone: [facility] [place] Comment on above: Forms Start: 11-10-2022 End: 11-10-2022 ambulatory Faustina Carcamo MD Work Phone: [facility] Medicine [place] Comment on above: Costochondritis (Eleanor yony Dx) Start: 11-10-2022 End: 11-10-2022 Telemedicine consultation with patient Faustina Carcamo MD Work Phone: [facility] Start: 10-18-2022 End: 10-18-2022 Office outpatient visit 15 minutes Faustina Carcamo MD Work Phone: [facility] Medicine [place] Comment on above: High serum high dens ity lipoprotein (HDL) (Primary Dx); POTS (postural orthostatic tachycardia syndrome); Inappropriate sinus node tachycardia; Periodic fever syndrome (HCC) Start: 09-20-2022 ambulatory MIRIAM ORTIZ Facili ty:[facility] Start: 09-20-2022 End: 09-20-2022 Office outpatient new 45 minutes Miriam Ortiz MD Work Phone: [facility] Comment on above: Dog bite, initial en counter (Primary Dx) Start: 09-16-2022 Telephone encounter Silvia Tucker MD Work Phone: Rheumatology Comment on above: Medication Authoriza tion (Ilaris ) Start: 09-14-2022 ambulatory Faustina de los santos MD Work Phone: [facility] Medicine [place] Comment on above: ADA Paperwork Start: 09-01-2022 End: 09-01-2022 ambulatory Yair Lyons MD Work Phone: Neurology Comment on above: Chronic migraine wit hout aura, with intractable migraine, so stated, with status migrainosus (Primary Dx) Start: 09-01-2022 End: 09-01-2022 Telemedicine consultation with patient Yair Lyons MD Work Phone: [facility] Start: 08-12-2022 Telephone encounter Isis sampson [facility] Work Phone: Adult Psychology Comment on above: Behavioral Health So cial Work Refill Request Start: 08-11-2022 End: 08-11-2022 Office outpatient visit 40 minutes Faustina Carcamo MD Work Phone: Internal Medicine [place] Comment on above: Obsessive-compulsive disorder, unspecified type (Primary Dx); PTSD (post-traumatic stress disorder); Recurrent major depressive disorder, in partial remission (HCC); Anxiety; POTS (postural orthostatic tachycardia syndrome); Inappropriate sinus node tachycardia; Moderate persistent reactive airway disease with acute exacerbation Start: 08-05-2022 Telephone encounter Silvia Tucker MD Work Phone: Rheumatology Comment on above: Medication Authoriza tion Start: 08-02-2022 Refill Patjd chong MD Work Phone: Rheumatology Comment on above: Refill Request Start: 07-28-2022 End: 07-29-2022 ambulatory MASS IMMUNIZATION PROVIDER 1 [facility] Start: 07-15-2022 ambulatory Ayaan Carrero filiberto BLADE SHARPENER.CNM Work Phone: OB/Gynecology Comment on above: Fluconazole- Differe nt Pharmacy Start: 07-14-2022 End: 07-14-2022 Patient encounter procedure Ayaan Rowley BLADE SHARPENER.CNM Work Phone: OB/Gynecology Comment on above: Pelvic pain in femal e (Primary Dx); Screen for STD (sexually transmitted disease); Surveillance of previously prescribed intrauterine contraceptive device Start: 06-28-2022 ambulatory MARINA Stevens ty:[facility] Start: 06-28-2022 End: 06-28-2022 Subsequent hospital visit by physician Marina Goodrich APRN-SAFETY COUNCIL DIRECTOR Work Phone: [facility] Comment on above: Arrived Start: 06-28-2022 ambulatory MARINA Stevens ty:[facility] Start: 06-28-2022 End: 06-28-2022 Office outpatient visit 15 minutes Marina Goodrich APRN-SAFETY COUNCIL DIRECTOR Work Phone: [facility] Comment on above: RLQ abdominal pain ( Primary Dx) Start: 06-14-2022 Refill Silvia chong MD Work Phone: Rheumatology Start: 06-03-2022 End: 06-03-2022 ambulatory Wilbert Charles APRN.CNP Work Phone: [facility] [place] Comment on above: Acute cough (Primary Dx); Shortness of breath; Wheezing Start: 06-03-2022 End: 06-03-2022 Telemedicine consultation with patient Wilbert Charles APRN.CNP Work Phone: [facility] Start: 05-26-2022 ambulatory SUHAILDORI APARICIO Facili ty:[facility] Start: 05-05-2022 ambulatory CASEY KERN Facilit y:[facility] Start: 05-05-2022 End: 05-05-2022 Office outpatient visit 15 minutes Casey Kern MD Work Phone: [facility] Comment on above: Concussion without l oss of consciousness, subsequent encounter (Primary Dx) Start: 05-02-2022 End: 05-03-2022 ambulatory OVIALEISHA HERRERA [facility] Start: 05-02-2022 End: 05-02-2022 Office outpatient new 45 minutes Ovi Herrera Work Phone: [facility] Comment on above: Closed head injury, initial encounter (Primary Dx); Contusion of scalp, initial encounter; Abrasion; Fall, initial encounter; Injury of right ankle, initial encounter; Sprain of right ankle, unspecified ligament, initial encounter Start: 04-21-2022 ambulatory KARTHIK Jeff VAZQUEZ Facility:[facility] Start: 04-16-2022 ambulatory SELF SELF Facility:[facility] Start: 04-16-2022 End: 04-16-2022 Office outpatient new 45 minutes Karthik Jeff Vazquez MB Work Phone: [facility] Comment on above: Migraine without sta tus migrainosus, not intractable, unspecified migraine type (Primary Dx); IUD check up; Morbid obesity; Periodic fever syndrome Start: 04-12-2022 Refill Yair de los santos MD Work Phone: Neurology Comment on above: Refill Request Start: 04-07-2022 Telephone encounter Mikel Solorio MD Work Phone: Dermatology Comment on above: Appointment Start: 04-06-2022 Specialty Pharmacy Ramin Glasgow [facility] Comment on above: SPP Inflammatory Con ditions - Medication Refill (Ilaris) Start: 03-30-2022 End: 03-30-2022 Office outpatient visit 25 minutes Faustina Carcamo MD Work Phone: [facility] [place] Comment on above: POTS (postural ortho static tachycardia syndrome) (Primary Dx); Pleuritic chest pain; Costochondritis; Periodic fever syndrome (HCC); Cough, unspecified type; Class 3 severe obesity due to excess calories with body mass index (BMI) of 50.0 to 59.9 in adult, unspecified whether serious comorbidity present (HCC) Start: 02-27-2022 End: 02-27-2022 Patient encounter procedure Mert Nikki CHORUS MASTER Work Phone: Psychology Comment on above: Moderate anxiety (Pr imary Dx); Moderate episode of recurrent major depressive disorder (HCC) Start: 02-25-2022 Refill Patompong Nghia chong MD Work Phone: [facility] Comment on above: Refill Request Start: 02-23-2022 Chart abstracting Mert Nikki CHORUS MASTER Work Phone: Psychology Comment on above: Consult ([facility] Pt Out reach F/U) Start: 02-21-2022 Chart abstracting Mert Nikki CHORUS MASTER Work Phone: Psychology Comment on above: Consult Start: 02-19-2022 ambulatory Ramin Glasgow [facility] Start: 02-19-2022 Patient encounter procedure Ramin Glasgow [facility] Comment on above: SPP Inflammatory Con ditions - Treatment Referral (Ilaris) Start: 02-18-2022 Refill Patompong Nghia chong MD Work Phone: Rheumatology Comment on above: Refill Request Start: 01-20-2022 Telephone encounter Rosaura holbrook APRN.CNM Work Phone: OB/Gynecology Comment on above: Results Start: 01-20-2022 End: 01-20-2022 Subsequent hospital visit by physician [facility] Work Phone: Radiology Comment on above: Intrauterine contrac eptive device threads lost, initial encounter [T83.32XA] Start: 01-16-2022 Refill Genaro RICCIICE HOCKEY COACH Work Phone: Internal [facility] [place] Comment on above: Refill Request Start: 01-13-2022 End: 01-13-2022 Patient encounter procedure Ayaan Rowley APRN.CNM Work Phone: OB/Gynecology Comment on above: Surveillance of prev iously prescribed intrauterine contraceptive device (Primary Dx); Intrauterine contraceptive device threads lost, initial encounter Start: 01-07-2022 Refill Silvia chong MD Work Phone: Rheumatology Comment on above: Refill Request Start: 01-05-2022 End: 01-05-2022 Patient encounter procedure Genaro Morales BLADE SHARPENER.ICE HOCKEY COACH Work Phone: Internal Medicine [place] Comment on above: COVID-19 (Primary Dx ); POTS (postural orthostatic tachycardia syndrome); Chest wall discomfort Start: 12-25-2021 ambulatory Faustina de los santos MD Work Phone: [facility] [place] Comment on above: Covid Start: 12-04-2021 End: 12-04-2021 Patient encounter procedure Ayaan Rowley BLADE SHARPENER.CNM Work Phone: OB/Gynecology Comment on above: Encounter for IUD in sertion (Primary Dx) Start: 11-28-2021 Refill Faustina de los santos MD Work Phone: [facility] [place] Comment on above: Refill Request Start: 11-24-2021 End: 11-24-2021 Patient encounter procedure Mikel Solorio MD Work Phone: Dermatology Comment on above: Neoplasm of uncertai n behavior of skin (Primary Dx); Compound nevus of chest Start: 11-17-2021 End: 11-17-2021 ambulatory Yair Lyons MD Work Phone: Neurology Comment on above: Intractable chronic migraine without aura and without status migrainosus (Primary Dx) Start: 11-17-2021 End: 11-17-2021 Telemedicine consultation with patient Yair Lyons MD Work Phone: [facility] Start: 11-12-2021 Refill Ayaan de los santos BLADE SHARPENER.CNM Work Phone: OB/Gynecology Comment on above: Refill Request Start: 10-14-2021 End: 10-14-2021 Subsequent hospital visit by physician [facility] (I-Stat/1.5t) Work Phone: Radiology Comment on above: No Show Start: 10-12-2021 ambulatory Elias Flores DPM Work Phone: Podiatry Comment on above: Prior Auth Paperwork Start: 09-22-2021 End: 09-22-2021 Patient encounter procedure Faustina Carcamo MD Work Phone: [facility] [place] Comment on above: Left ankle strain, s equela (Primary Dx); Chronic pain of left ankle; History of influenza Start: 09-16-2021 End: 09-16-2021 Subsequent hospital visit by physician [facility] [place] Work Phone: Radiology Comment on above: Left ankle pain, uns pecified chronicity [M25.572] Start: 08-05-2021 End: 08-05-2021 Subsequent hospital visit by physician [facility] [place] Work Phone: Radiology Comment on above: Acute left ankle skip n [M25.572] Start: 01-07-2021 End: 01-07-2021 Subsequent hospital visit by physician [facility] [place] Work Phone: Radiology Comment on above: Left wrist pain [M25 .532] Start: 07-17-2020 End: 07-17-2020 Subsequent hospital visit by physician [facility] (I-Stat) Work Phone: Radiology Comment on above: Chronic sinusitis, u nspecified location [J32.9] Start: 06-05-2020 End: 06-05-2020 Subsequent hospital visit by physician [facility] [place] Work Phone: Radiology Comment on above: Cough [R05] Procedures Date Procedure Procedure Detail Performing Clinician Start: 12-21-2024 STREP A MOLECULAR (POC) Steven Harris APRN.SAFETY COUNCIL DIRECTOR Work Phone: Start: 11-22-2024 STREP A MOLECULAR (POC) Kedar Varela PA Work Phone: Start: 11-19-2024 STREP A MOLECULAR (POC) Rosaura Santacruz BLADE SHARPENER.SAFETY COUNCIL DIRECTOR Work Phone: Start: 10-24-2024 Radex wrist complete minimum 3 views Steven Harris BLADE SHARPENER.SAFETY COUNCIL DIRECTOR Work Phone: Start: 09-25-2024 Radiologic exam ches t 2 views Rosaura Santacruz BLADE SHARPENER.SAFETY COUNCIL DIRECTOR Work Phone: Start: 04-02-2024 Radiologic exam ches t 2 views Silvia Tucker MD Work Phone: Start: 03-15-2024 UA DIP,URINE HCG (POC) Karen Jenkins MD Work Phone: Start: 10-14-2023 Radex shoulder compl ete minimum 2 views Genaro Morales BLADE SHARPENER.ICE HOCKEY COACH Work Phone: Start: 07-25-2023 Us pelvic nonobstetr ic real-time image complete Joe Contreras MD Work Phone: Start: 06-06-2023 Radiologic exam ches t 2 views Patsy Mobley PAHaim Work Phone: Start: 02-25-2023 BACTERIAL VAGINOSIS NAAT Ayaan Rowley BLADE SHARPENER.CNM Work Phone: Start: 02-25-2023 Iadna trichomonas va ginalis amplified probe tech Ayaan Rowley BLADE SHARPENER.CNM Work Phone: Start: 07-14-2022 BACTERIAL VAGINOSIS AMPLIFICATION Ayaan [employer] BLADE SHARPENER.CNM Work Phone: Start: 07-14-2022 Iadna chlamydia trac homatis amplified probe tq Ayaan Rowley BLADE SHARPENER.CNM Work Phone: Start: 06-28-2022 Ct abdomen & pelvis w/contrast material Marina Goodrich BLADE SHARPENER-SAFETY COUNCIL DIRECTOR Work Phone: Start: 06-28-2022 End: 06-28-2022 Blood count complete auto&auto difrntl wbc Marina Goodrich BLADE SHARPENER-SAFETY COUNCIL DIRECTOR Work Phone: Start: 06-28-2022 End: 06-28-2022 Urnls dip stick/tablet rgnt auto w/o microscopy Marina Goodrich BLADE SHARPENER-[facility] Work Phone: Start: 01-20-2022 transvaginal Bianca Rowley BLADE SHARPENER.CNM Work Phone: Start: 12-04-2021 Urine test visual color cmprsn meths Ayaan Rowley BLADE SHARPENER.CNM Work Phone: Start: 09-16-2021 Radex ankle complete minimum 3 views Irwin Campbell MD Work Phone: Start: 08-05-2021 Radex ankle complete minimum 3 views Rosaura Santacruz BLADE SHARPENER.SAFETY COUNCIL DIRECTOR Work Phone: Start: 01-07-2021 Radex shoulder compl ete minimum 2 views Shea [facility] Work Phone: Start: 10-20-2020 Microscopic observat ion [Identifier] in Cervix by Cyto stain Marina Goodrich BLADE SHARPENER-[facility] Work Phone: Start: 07-17-2020 Ct maxillofacial w/o contrast material Jerry Keating MD Work Phone: Start: 06-05-2020 Radiologic exam ches t 2 views Gonzalez Reyes PA-C Work Phone: Plan of Treatment Date Care Activity Detail Author Start: 10-31-2034 Urine microalbumin profile DTaP,Tdap,Td Vaccine (9 - Td or Tdap) [facility] Start: 03-08-2029 Tetanus vaccination [facility] Start: 03-08-2029 Urine microalbumin profile [facility] Start: 02-26-2028 HPV TESTING HPV TESTING [facility] Start: 02-26-2028 PAP TESTING PAP TESTING [facility] Start: 02-26-2028 Screening for malignant neoplasm of cervix [facility] Start: 10-20-2025 PAP TESTING PAP TESTING [facility] Start: 07-15-2025 End: 07-15-2025 Patient encounter procedure 07/15/2025 10:40 AM EST Office Visit Rheumatology [address] [place] [address] Silvia Tucker MD [address] [place] [address] follow up Rheumatology Comment on above: follow up Start: 06-19-2025 End: 06-19-2025 Patient encounter procedure 06/19/2025 3:20 PM EST Office Visit Internal Medicine [place] [address] [place] [address] Faustina Carcamo MD [address] [place] [address] 3 month follow up [facility] [place] Comment on above: 3 month follow up Start: 03-18-2025 End: 03-18-2025 Patient encounter procedure 03/18/2025 4:40 PM EDT Office Visit Internal Medicine [place] [address] [place] [address] Faustina Carcamo MD [address] [place] [address] 6 mon follow up [facility] [place] Comment on above: 6 mon follow up Start: 02-27-2025 End: 02-27-2025 Patient encounter procedure 02/27/2025 8:00 AM EDT Office Visit Allergy [address] MD [address] [place] [address] latex allergy Allergy Comment on above: latex allergy Start: 02-26-2025 Screening for malignant neoplasm of cervix Cervical Cancer Screening [facility] Start: 02-26-2025 End: 02-26-2025 Patient encounter procedure 02/26/2025 9:30 AM EDT Office Visit OB/Gynecology [address] [place] [address] Michelle Rojas, BLADE SHARPENER.SAFETY COUNCIL DIRECTOR [address] [place] [address] annual ditch repairer exam OB/Gynecology Comment on above: annual ditch repairer exam Start: 02-13-2025 End: 02-13-2025 Patient encounter procedure 02/13/2025 2:00 PM EDT Office Visit Internal Medicine [place] [address] [facility] [place] [address] Faustina Carcamo MD [address] [place] [address] 6 mon follow up [facility] Medicine [place] Comment on above: 6 mon follow up Start: 01-31-2025 End: 01-31-2025 Specialty Pharmacy 01/31/2025 8:15 AM EDT Specialty Pharmacy [facility] [address] [place] [phone] Pharmacist, [facility] [address] [place] [address] [place] [address] REFILL Ilaris - PAx 03/27/25 - 02/12 [facility] Comment on above: REFILL Ilaris - PAx 03/27/25 - 02/12 Start: 01-22-2025 End: 01-22-2025 Patient encounter procedure 01/22/2025 4:00 PM EDT Office Visit Rheumatology [address] [place] [address] Silvia Tucker MD [address] [place] [address] follow up Rheumatology Comment on above: follow up Start: 01-03-2025 End: 01-03-2025 Specialty Pharmacy 01/03/2025 8:00 AM EDT Specialty Pharmacy [facility] [address] [place] [phone] Pharmacist, [facility] [address] [place] [address] [place] [address] REFILL Ilaris - PAx 03/27/25 - ND 01/15 [facility] Comment on above: REFILL Ilaris - PAx 8/13/25 - ND 01/15 Start: 01-01-2025 End: 01-01-2025 Patient encounter procedure 01/01/2025 9:05 PM EDT Office Visit Neurology [address] [place] [address] MAXWELL (obstructive sleep apnea) [G47.33]; Class 3 severe obesity due to excess calories with body mass index (BMI) of 50.0 to 59.9 in adult, unspecified whether serious comorbidity present (HCC) [E66.813, Z68.43, E66.01]; Excessive daytime sleepiness [G47.19]; Snoring [R06.83] Neurology Comment on above: MAXWELL (obstructive sleep apnea) [G47.33]; Class 3 severe obesity due to excess calories with body mass index (BMI) of 50.0 to 59.9 in adult, unspecified whether serious comorbidity present (HCC) [E66.813, Z68.43, E66.01]; Excessive daytime sleepiness [G47.19]; Snoring [R06.83] Start: 12-27-2024 End: 12-27-2024 Patient encounter procedure 12/27/2024 7:15 AM EDT Office Visit OB/Gynecology [address] [place] [address] Tiffanie Barrera, GENI.SAFETY COUNCIL DIRECTOR [address] [place] [address] annual-patient states her insurance has changed and would like her annual completed sooner OB/Gynecology Comment on above: annual-patient states her insurance has changed and would like her annual completed sooner Start: 12-21-2024 End: 12-21-2024 Patient encounter procedure 12/21/2024 2:45 PM EDT Office Visit OB/Gynecology [address] [place] [address] Tiffanie Barrera, GENI.SAFETY COUNCIL DIRECTOR [address] [place] [address] annual-patient states her insurance has changed and would like her annual completed sooner OB/Gynecology Comment on above: annual-patient states her insurance has changed and would like her annual completed sooner Start: 12-19-2024 End: 12-19-2024 Patient encounter procedure 12/19/2024 3:40 PM EDT Office Visit OB/Gynecology [address] [place] [address] Qian Hillman MD [address] [place] [address] endosee/ IUD removal OB/Gynecology Comment on above: endosee/ IUD removal Start: 12-18-2024 End: 03-19-2025 C reactive protein [Mass/volume] in Serum or Plasma [facility] Comment on above: Expected: 12/18/2024, Expires: Start: 12-18-2024 End: 03-19-2025 CBC W Auto Differential panel - Blood [facility] Work Phone: Comment on above: Expected: 12/18/2024, Expires: Start: 12-18-2024 End: 03-19-2025 Erythrocyte sedimentation rate [facility] Comment on above: Expected: 12/18/2024, Expires: Start: 12-18-2024 End: 12-18-2024 Patient encounter procedure 12/18/2024 8:20 AM EDT Office Visit Rheumatology [address] [place], [place] [id number] Silvia Tucker MD [address] [place] [address] f/u earlier apt Rheumatology Comment on above: f/u earlier apt Start: 12-13-2024 End: 12-13-2024 Patient encounter procedure 12/13/2024 9:00 AM EDT Office Visit OB/Gynecology [address] [place], [place] [address] Fredy Diaz MD [address] [place] [id number] endosee/ IUD removal OB/Gynecology Comment on above: endosee/ IUD removal Start: 12-12-2024 End: 12-12-2024 Patient encounter procedure 12/12/2024 2:45 PM EDT Office Visit OB/Gynecology [address] [place] [address] Tiffanie Barrera APRN.SAFETY COUNCIL DIRECTOR [address] [place] [address] annual-patient states her insurance has changed and would like her annual completed sooner OB/Gynecology Comment on above: annual-patient states her insurance has changed and would like her annual completed sooner Start: 12-06-2024 End: 12-06-2024 Specialty Pharmacy 12/06/2024 8:00 AM EDT Specialty Pharmacy [facility] [address] [place], [place] [id number][address] [place] [address] Pharmacist, [facility] [address] [place] [address] REFILL Ilaris - PAx 03/27/25 - 12/18 [facility] Comment on above: REFILL Ilaris - PAx 03/27/25 - 12/18 Start: 11-22-2024 End: 11-22-2024 Follow-up encounter 11/22/2024 4:40 PM EDT [facility] Rheumatology/Pulmonary [address], [place] [address] Silvia Tucker MD [address] [place] [address] follow up Rheumatology/Pulmona ry Comment on above: follow up Start: 11-22-2024 End: 11-22-2024 Patient encounter procedure 11/22/2024 4:40 PM EDT Office Visit Rheumatology/Pulmonary [address] [place] [address] Silvia Tucker MD [address] [place] [address] follow up Rheumatology/Pulmona ry Comment on above: follow up Start: 11-22-2024 End: 02-21-2025 C reactive protein [Mass/volume] in Serum or Plasma C-REACTIVE PROTEIN Lab Routine SO-JILLIAN (systemic onset juvenile idiopathic arthritis) (HCC) Periodic fever syndrome (HCC) Expected: 11/22/2024, Expires: 02/21/2025 [facility] Comment on above: Expected: 11/22/2024, Expires: Start: 11-22-2024 End: 02-21-2025 CBC W Auto Differential panel - Blood COMPLETE BLOOD COUNT AND DIFFERENTIAL Lab Routine SO-JILLIAN (systemic onset juvenile idiopathic arthritis) (HCC) Periodic fever syndrome (HCC) Expected: 11/22/2024, Expires: 02/21/2025 [facility] Comment on above: Expected: 11/22/2024, Expires: Start: 11-22-2024 End: 02-21-2025 Creatinine and Glomerular filtration rate.predicted panel - Serum, Plasma or Blood CREATININE BLD Lab Routine SO-JILLIAN (systemic onset juvenile idiopathic arthritis) (HCC) Periodic fever syndrome (HCC) Expected: 11/22/2024, Expires: 02/21/2025 [facility] Work Phone: Comment on above: Expected: 11/22/2024, Expires: Start: 11-22-2024 End: 02-21-2025 Erythrocyte sedimentation rate SEDIMENTATION RATE, WESTERGREN Lab Routine SO-JILLIAN (systemic onset juvenile idiopathic arthritis) (HCC) Periodic fever syndrome (HCC) Expected: 11/22/2024, Expires: 02/21/2025 [facility] Comment on above: Expected: 11/22/2024, Expires: Start: 11-22-2024 End: 02-21-2025 Hepatic function 2000 panel - Serum or Plasma HEPATIC FUNCTION PNL Lab Routine SO-JILLIAN (systemic onset juvenile idiopathic arthritis) (HCC) Periodic fever syndrome (HCC) Expected: 11/22/2024, Expires: 02/21/2025 [facility] Comment on above: Expected: 11/22/2024, Expires: Start: 11-22-2024 End: 02-21-2025 Heterophile Ab [Presence] in Serum by Latex agglutination MONOTEST, INFECTIOUS MONO Lab Routine Sore throat Exudative tonsillitis Expected: 11/22/2024, Expires: 02/21/2025 [facility] Work Phone: Comment on above: Expected: 11/22/2024, Expires: Start: 11-22-2024 End: 02-21-2025 Urea nitrogen [Mass/volume] in Serum or Plasma UREA NITROGEN Lab Routine SO-JILLIAN (systemic onset juvenile idiopathic arthritis) (HCC) Periodic fever syndrome (HCC) Expected: 11/22/2024, Expires: 02/21/2025 [facility] Comment on above: Expected: 11/22/2024, Expires: Start: 11-21-2024 End: 11-21-2024 Patient encounter procedure 11/21/2024 9:15 PM EDT Office Visit Neurology [address] [place], [place] [id number] MAXWELL (obstructive sleep apnea) [G47.33]; Class 3 severe obesity due to excess calories with body mass index (BMI) of 50.0 to 59.9 in adult, unspecified whether serious comorbidity present (HCC) [E66.813, Z68.43, E66.01]; Excessive daytime sleepiness [G47.19]; Snoring [R06.83] Neurology Comment on above: MAXWELL (obstructive sleep apnea) [G47.33]; Class 3 severe obesity due to excess calories with body mass index (BMI) of 50.0 to 59.9 in adult, unspecified whether serious comorbidity present (HCC) [E66.813, Z68.43, E66.01]; Excessive daytime sleepiness [G47.19]; Snoring [R06.83] Start: 11-20-2024 End: 11-20-2024 Patient encounter procedure 11/20/2024 3:40 PM EDT Office Visit [facility] [place] [address] [place], [place] [id number] Petra Beckman APRN.SAFETY COUNCIL DIRECTOR [address] [place], [place] [id number] follow up- fatigue [facility] [place] Comment on above: follow up- fatigue Start: 11-15-2024 End: 11-15-2024 Patient encounter procedure 11/15/2024 3:30 PM EDT Office Visit Allergy [address] MD [address] [place], [place] [id number] latex allergy Allergy Comment on above: latex allergy Start: 11-08-2024 End: 11-08-2024 Specialty Pharmacy 11/08/2024 8:00 AM EDT Specialty Pharmacy [facility] [address] [place] [address] [address] [place] [address] Pharmacist, [facility] [address] [place] [address] [place] [address] REFILL Ilaris - PAx 03/27/25 - 11/20 [facility] Comment on above: REFILL Ilaris - PAx 03/27/25 - ND 11/20 Start: 11-01-2024 End: 11-01-2024 Patient encounter procedure 11/01/2024 9:15 PM EDT Office Visit Neurology [address] [place] [address] MAXWELL (obstructive sleep apnea) [G47.33]; Class 3 severe obesity due to excess calories with body mass index (BMI) of 50.0 to 59.9 in adult, unspecified whether serious comorbidity present (HCC) [E66.813, Z68.43, E66.01]; Excessive daytime sleepiness [G47.19]; Snoring [R06.83] Neurology Comment on above: MAXWELL (obstructive sleep apnea) [G47.33]; Class 3 severe obesity due to excess calories with body mass index (BMI) of 50.0 to 59.9 in adult, unspecified whether serious comorbidity present (HCC) [E66.813, Z68.43, E66.01]; Excessive daytime sleepiness [G47.19]; Snoring [R06.83] Start: 10-19-2024 End: 10-19-2024 Specialty Pharmacy 10/19/2024 8:15 AM EST Specialty Pharmacy [facility] [address] [place] [address] [place] [address] Pharmacist, [facility] [address] [place] [address] REFILL Ilaris - PAx 03/27/25 - 10/23-lvm 10/16 [facility] Comment on above: REFILL Ilaris - PAx 03/27/25 - 10/23-l vm 10/16 Start: 10-16-2024 End: 10-16-2024 Patient encounter procedure 10/16/2024 7:00 PM EST Office Visit Internal Medicine [place] [address] [place] [address] Faustina Carcamo MD [address] [place], [place] [id number] Severe fatigue and weakness [facility] [place] Comment on above: Severe fatigue and weakness Start: 10-11-2024 End: 10-11-2024 Specialty Pharmacy 10/11/2024 8:00 AM EST Specialty Pharmacy [facility] [address] [place] [address] [place] [address] Pharmacist, [facility] [address] [place] [address] REFILL Ilaris - PAx 03/27/25 - 10/23 [facility] Comment on above: REFILL Ilaris - PAx 03/27/25 - 10/23 Start: 09-19-2024 End: 09-19-2024 Follow-up encounter 09/19/2024 9:00 AM EST [facility] Neurology [address] [place] [address] Rob Toledo PA-C [address] [place] [address] Migraines and facial pain follow up Neurology Comment on above: Migraines and facial pain follow up Start: 09-14-2024 End: 09-14-2024 Follow-up encounter 09/14/2024 1:45 PM EST [facility] [address] [address] Cindy Mac, RD [address] [place] [address] follow-up Nutrition Therapy Comment on above: follow-up Start: 09-13-2024 End: 09-13-2024 Specialty Pharmacy 09/13/2024 8:00 AM EST Specialty Pharmacy [facility] [address] [facility] [place] [address] Pharmacist, [facility] [address] [place] [address] REFILL Ilaris - PAx 03/27/25 - 09/25 [facility] Comment on above: REFILL Ilaris - PAx 03/27/25 - 09/25 Start: 09-08-2024 End: 09-08-2024 ambulatory 09/08/2024 8:45 AM EST Results Only [facility] [address] [place] [address] [facility] Start: 09-07-2024 End: 09-07-2024 Follow-up encounter 09/07/2024 2:30 PM EST [facility] [address] [address] Cindy Mac, GUEVARA [address] [place] [address] Follow-up Nutrition Therapy Comment on above: Follow-up Start: 08-21-2024 End: 08-21-2024 Patient encounter procedure 08/21/2024 7:45 AM EST OT/PT/Speech Visit [facility] [address] [place] [id number] Hari Eastman, PT, DPT back pain [facility] Comment on above: back pain Start: 08-20-2024 End: 08-20-2024 Follow-up encounter 08/20/2024 5:20 PM EST [facility] [place] [address] [place] [address] Faustina Carcamo MD [address] [place] [address] Follow up Internal Medicine [place] Comment on above: Follow up Start: 08-17-2024 End: 08-17-2024 Follow-up encounter 08/17/2024 1:45 PM EST [facility] Therapy [address] [address] Cindy Mac, RD [address] [place], [place] [id number] Follow-up Nutrition Therapy Comment on above: Follow-up Start: 08-17-2024 End: 08-17-2024 Specialty Pharmacy 08/17/2024 8:15 AM EST Specialty Pharmacy [facility] [address] [place] [phone] Pharmacist, [facility] [address] [place] [phone] REFILL Ilaris - PAx 03/27/25 - ND 08/28 [facility] Comment on above: REFILL Ilaris - PAx 03/27/25 - ND 08/28 Start: 08-02-2024 End: 08-02-2024 Specialty Pharmacy 08/02/2024 8:00 AM EST Specialty Pharmacy [facility] [address] [place] [phone] Pharmacist, [facility] [address] [place] [address] [place] [address] REFILL Ilaris - PAx 03/27/25 - ND ~08/12 [facility] Comment on above: REFILL Ilaris - PAx 03/27/25 - ND ~08/12 Start: 07-30-2024 End: 07-30-2024 Follow-up encounter 07/30/2024 10:00 AM EST [facility] [address] [facility] [place] [address] Silvia Tucker MD [address] [place] [phone] follow up Rheumatology Comment on above: follow up Start: 07-30-2024 End: 07-30-2024 Patient encounter procedure 07/30/2024 10:00 AM EST Office Visit Rheumatology [address] [facility] [place] [address] Silvia Tucker MD [address] [place] [phone] follow up Rheumatology Comment on above: follow up Start: 07-27-2024 End: 07-27-2024 [facility] 07/27/2024 3:15 PM EST [facility] Care [address] [place] [address] Cindy Mac, RD [address] [place] [address] EATING DISORDER Chronic Care Comment on above: EATING DISORDER Start: 07-23-2024 End: 10-22-2024 25-hydroxyvitamin D3 [Mass/volume] in Serum or Plasma VITAMIN D 25 HYDROXY Lab Routine SO-JILLIAN (systemic onset juvenile idiopathic arthritis) ([facility]) Expected: 07/23/2024 (Approximate), Expires: 10/22/2024 [facility] Comment on above: Expected: 07/23/2024 (Approximate), Expi res: 10/22/2024 Start: 07-23-2024 End: 10-22-2024 Alanine aminotransferase [Enzymatic activity/volume] in Serum or Plasma ALANINE AMINOTRANSFERASE / SGPT Lab Routine SO-JILLIAN (systemic onset juvenile idiopathic arthritis) (HCC) Expected: 07/23/2024 (Approximate), Expires: 10/22/2024 [facility] Work Phone: Comment on above: Expected: 07/23/2024 (Approximate), Expi res: 10/22/2024 Start: 07-23-2024 End: 10-22-2024 Aspartate aminotransferase [Enzymatic activity/volume] in Serum or Plasma ASPARTATE AMINOTRANSFERASE/SGOT Lab Routine SO-JILLIAN (systemic onset juvenile idiopathic arthritis) ([facility]) Expected: 07/23/2024 (Approximate), Expires: 10/22/2024 [facility] Comment on above: Expected: 07/23/2024 (Approximate), Expi res: 10/22/2024 Start: 07-23-2024 End: 10-22-2024 C reactive protein [Mass/volume] in Serum or Plasma C-REACTIVE PROTEIN Lab Routine SO-JILLIAN (systemic onset juvenile idiopathic arthritis) ([facility]) Expected: 07/23/2024 (Approximate), Expires: 10/22/2024 [facility] Comment on above: Expected: 07/23/2024 (Approximate), Expi res: 10/22/2024 Start: 07-23-2024 End: 10-22-2024 CBC W Auto Differential panel - Blood COMPLETE BLOOD COUNT AND DIFFERENTIAL Lab Routine SO-JILLIAN (systemic onset juvenile idiopathic arthritis) ([facility]) Expected: 07/23/2024 (Approximate), Expires: 10/22/2024 [facility] Comment on above: Expected: 07/23/2024 (Approximate), Expi res: 10/22/2024 Start: 07-23-2024 End: 10-22-2024 CREATININE BLD CREATININE BLD Lab Routine SO-JILLIAN (systemic onset juvenile idiopathic arthritis) ([facility]) Expected: 07/23/2024 (Approximate), Expires: 10/22/2024 [facility] Comment on above: Expected: 07/23/2024 (Approximate), Expi res: 10/22/2024 Start: 07-23-2024 End: 10-22-2024 Erythrocyte sedimentation rate SEDIMENTATION RATE, WESTERGREN Lab Routine SO-JILLIAN (systemic onset juvenile idiopathic arthritis) ([facility]) Expected: 07/23/2024 (Approximate), Expires: 10/22/2024 [facility] Comment on above: Expected: 07/23/2024 (Approximate), Expi res: 10/22/2024 Start: 07-23-2024 End: 10-22-2024 Urea nitrogen [Mass/volume] in Serum or Plasma UREA NITROGEN Lab Routine SO-JILLIAN (systemic onset juvenile idiopathic arthritis) (HCC) Expected: 07/23/2024 (Approximate), Expires: 10/22/2024 [facility] Comment on above: Expected: 07/23/2024 (Approximate), Expi res: 10/22/2024 Start: 07-05-2024 End: 07-05-2024 Specialty Pharmacy 07/05/2024 8:15 AM EST Specialty Pharmacy [facility] [address] [place], [place] [phone] Pharmacist, [facility] [address] [place] [address] [address] [place] [phone] REFILL Ilaris - PAx 03/27/25 - ND ~07/18 - lvm 07/02 [facility] Comment on above: REFILL Ilaris - PAx 03/27/25 - ND ~07/18 - lvm 07/02 Start: 07-02-2024 End: 07-02-2024 Specialty Pharmacy 07/02/2024 8:15 AM EST [facility]ty [facility] [address] [place], [place] [phone] Pharmacist, [facility] [address] [place] [address] [place] [address] REFILL Ilaris - PAx 03/27/25 - ND ~07/18 [facility] Comment on above: REFILL Ilaris - PAx 03/27/25 - ND ~07/18 Start: 06-13-2024 End: 06-13-2024 Specialty Pharmacy 06/13/2024 8:00 AM EDT Specialty Pharmacy [facility] [address] [place] [phone] Pharmacist, [facility] [address] [place] [address] [place] [address] REFILL Ilaris - PAx 03/27/25 - ND ~06/20? - PT wcb when avail 06/08 [facility] Comment on above: REFILL Ilaris - PAx 03/27/25 - ND ~06/20? - PT wcb when avail 06/08 Start: 06-08-2024 End: 06-08-2024 Specialty Pharmacy 06/08/2024 8:00 AM EDT Specialty Pharmacy [facility] [address] [place], [place] [phone] [phone] Pharmacist, [facility] [address] [place] [address] [place] [address] REFILL Ilaris - PAx 03/27/25 ~06/20? [facility] Comment on above: REFILL Ilaris - PAx 03/27/25 ~06/20? Start: 05-15-2024 End: 05-15-2024 Specialty Pharmacy 05/15/2024 8:15 AM EDT Specialty Pharmacy [facility] [address] [place] [phone] Pharmacist, [facility] [address] [place] [address] [place] [address] REFILL Ilaris - PAx 03/27/2505/23? - RTS 05/15 [facility] Comment on above: REFILL Ilaris - PAx 03/27/25 - 05/23? - RTS 05/15 Start: 05-14-2024 End: 05-14-2024 Nutrition therapy Nutrition Therapy Comment on above: Class 3 severe obesity due to excess janna ories with body mass index (BMI) of 50.0 to 59.9 in adult, unspecified whether serious comorbidity present (HCC) [E66.01, Z68.43] REFILL- Ilaris- PAx 03/27/2505/23? Start: 05-03-2024 End: 05-03-2024 Patient encounter procedure 05/03/2024 9:00 AM EDT Office Visit Cardiology [address] [address] Selma Zambrano, [address] [place] [address] 6 month follow up Cardiology Comment on above: 6 month follow up Start: 04-15-2024 Influenza vaccination Influenza Vaccine (#1) Irma silva Start: 04-03-2024 End: 04-03-2024 Patient encounter procedure 04/03/2024 7:00 AM EDT Office Visit Internal Medicine [place] [address] [place] [address] Genaro Morales APRN.ICE HOCKEY COACH [address] [place] [address] 3-4 month follow up [facility] [place] Comment on above: 3-4 month follow up Start: 04-02-2024 End: 07-02-2024 Alanine aminotransferase [Enzymatic activity/volume] in Serum or Plasma [facility] Work Phone: Comment on above: Expected: 04/02/2024 (Approximate), Expi res: 07/02/2024 Start: 04-02-2024 End: 07-02-2024 Aldolase [Enzymatic activity/volume] in Serum or Plasma [facility] Comment on above: Expected: 04/02/2024 (Approximate), Expi res: 07/02/2024 Start: 04-02-2024 End: 07-02-2024 Aspartate aminotransferase [Enzymatic activity/volume] in Serum or Plasma [facility] Comment on above: Expected: 04/02/2024 (Approximate), Expi res: 07/02/2024 Start: 04-02-2024 End: 07-02-2024 C reactive protein [Mass/volume] in Serum or Plasma [facility] Comment on above: Expected: 04/02/2024 (Approximate), Expi res: 07/02/2024 Start: 04-02-2024 End: 07-02-2024 Creatine kinase [Enzymatic activity/volume] in Serum or Plasma [facility] Comment on above: Expected: 04/02/2024 (Approximate), Expi res: 07/02/2024 Start: 04-02-2024 End: 07-02-2024 CREATININE BLD [facility] Comment on above: Expected: 04/02/2024 (Approximate), Expi res: 07/02/2024 Start: 04-02-2024 End: 07-02-2024 Erythrocyte sedimentation rate [facility] Comment on above: Expected: 04/02/2024 (Approximate), Expi res: 07/02/2024 Start: 04-02-2024 End: 07-02-2024 Urea nitrogen [Mass/volume] in Serum or Plasma [facility] Comment on above: Expected: 04/02/2024 (Approximate), Expi res: 07/02/2024 Start: 04-02-2024 End: 07-02-2024 Urinalysis complete panel - Urine [facility] Comment on above: Expected: 04/02/2024 (Approximate), Expi res: 07/02/2024 Start: 03-29-2024 End: 03-29-2024 Nursing evaluation of patient and report 03/29/2024 10:00 AM EDT Nurse Visit OB/Gynecology [address] [place] [address] Wstr, Nurse Child Care Counselor [facility] [address] [place] [address] HPV OB/Gynecology Comment on above: HPV Start: 03-15-2024 End: 03-15-2024 Patient encounter procedure 03/15/2024 9:20 AM EDT Office Visit OB/Gynecology [address] [place] [address] Karen Jenkins MD [address] [place] [address] Cervical high risk HPV (human papillomavirus) test [...] Office Visit OB/Gynecology [address] [place] [address] Ayaan Rowley APRN.CNM [address] [place] [address] Annual Exam OB/Gynecology Comment on above: Annual Exam Start: 02-26-2024 Screening for malignant neoplasm of cervix Cervical Cancer Screening [facility] Start: 01-02-2024 End: 01-02-2024 Patient encounter procedure 01/02/2024 4:40 PM EDT Office Visit Internal Medicine [place] [address] [place], [place] [id number] Faustina Carcamo MD [address] [place] [address] F/u and new gi issues [facility] [place] Comment on above: F/u and new gi issues Start: 01-02-2024 End: 04-02-2024 Basic metabolic 2000 panel - Serum or Plasma BASIC METABOLIC PANEL Lab Routine Encounter for long-term current use of medication Expected: 01/02/2024, Expires: 04/02/2024 [facility] Work Phone: Comment on above: Expected: 01/02/2024, Expires: Start: 12-08-2023 End: 03-08-2024 ALGN KIWI IGE ALGN KIWI IGE Lab Routine Expected: 12/08/2023, Expires: 03/08/2024 [facility] Comment on above: Expected: 12/08/2023, Expires: Start: 12-08-2023 End: 03-08-2024 ALGN LATEX IGE ALGN LATEX IGE Lab Routine Expected: 12/08/2023, Expires: 03/08/2024 [facility] Work Phone: Comment on above: Expected: 12/08/2023, Expires: Start: 12-08-2023 End: 03-08-2024 Banana IgE Ab [Units/volume] in Serum ALGN BANANA IGE Lab Routine Expected: 12/08/2023, Expires: 03/08/2024 [facility] Comment on above: Expected: 12/08/2023, Expires: Start: 10-24-2023 End: 01-23-2024 25-hydroxyvitamin D3 [Mass/volume] in Serum or Plasma VITAMIN D 25 HYDROXY Lab Routine Vitamin D deficiency Expected: 10/24/2023, Expires: 01/23/2024 [facility] Work Phone: Comment on above: Expected: 10/24/2023, Expires: 4 Start: 10-24-2023 End: 01-23-2024 Thyroxine (T4) free [Mass/volume] in Serum or Plasma T4 FREE/FREE THYROX Lab Routine Elevated TSH Inappropriate sinus node tachycardia (HCC) Expected: 10/24/2023, Expires: 01/23/2024 [facility] Work Phone: Comment on above: Expected: 10/24/2023, Expires: 4 Start: 10-24-2023 End: 01-23-2024 Triiodothyronine (T3) Free [Mass/volume] in Serum or Plasma T3 FREE BLD Lab Routine Elevated TSH Inappropriate sinus node tachycardia (HCC) Expected: 10/24/2023, Expires: 01/23/2024 [facility] Work Phone: Comment on above: Expected: 10/24/2023, Expires: 4 Start: 10-21-2023 PAP TESTING PAP TESTING [facility] Start: 10-21-2023 Screening for malignant neoplasm of cervix PAP SMEAR [facility] Start: 10-14-2023 End: 01-13-2024 Chlamydia trachomatis+Neisseria gonorrhoeae DNA [Presence] in Unspecified specimen by JOSSIE with probe detection [facility] Work Phone: Comment on above: Expected: 10/14/2023, Expires: 4 Start: 10-14-2023 End: 01-13-2024 HIV 1+2 Ab [Presence] in Serum or Plasma by Immunoassay [facility] Work Phone: Comment on above: Expected: 10/14/2023, Expires: 4 Start: 10-14-2023 End: 01-13-2024 SYPHILIS TOTAL W/REFLEX [facility] Work Phone: Comment on above: Expected: 10/14/2023, Expires: Start: 10-14-2023 End: 01-13-2024 TRICHOMONAS VAGINALIS NAAT [facility] Work Phone: Comment on above: Expected: 10/14/2023, Expires: Start: 08-20-2023 End: 10-20-2023 THYROID PEROXIDASE ANTIBODY BLOOD THYROID PEROXIDASE ANTIBODY BLOOD Lab Routine Elevated TSH Expected: 08/20/2023 (Approximate), Expires: 10/20/2023 [facility] Work Phone: Comment on above: Expected: 08/20/2023 (Approximate), Expi res: 10/20/2023 Start: 08-20-2023 End: 10-20-2023 Thyrotropin [Units/volume] in Serum or Plasma TSH BLD Lab Routine Elevated TSH Expected: 08/20/2023 (Approximate), Expires: 10/20/2023 [facility] Work Phone: Comment on above: Expected: 08/20/2023 (Approximate), Expi res: 10/20/2023 Start: 08-17-2023 Covid-19 Vaccine () Covid-19 Vaccine () [facility] Start: 07-22-2023 End: 07-22-2024 PELVIC US WHI PELVIC US WHI Anc Imaging Routine Pelvic pain in female Expected: 07/22/2023, Expires: 07/22/2024 [facility] Work Phone: Comment on above: Expected: 07/22/2023, Expires: Start: 04-15-2023 Covid-19 Vaccine () Covid-19 Vaccine () [facility] Start: 04-15-2023 Influenza vaccination [facility] Start: 12-03-2022 End: 02-02-2023 Alanine aminotransferase [Enzymatic activity/volume] in Serum or Plasma [facility] Work Phone: Comment on above: Expected: 12/03/2022, Expires: 3 Start: 12-03-2022 End: 02-02-2023 Aspartate aminotransferase [Enzymatic activity/volume] in Serum or Plasma [facility] Work Phone: Comment on above: Expected: 12/03/2022, Expires: 3 Start: 12-03-2022 End: 02-02-2023 C reactive protein [Mass/volume] in Serum or Plasma [facility] Work Phone: Comment on above: Expected: 12/03/2022, Expires: 3 Start: 12-03-2022 End: 02-02-2023 CBC W Auto Differential panel - Blood [facility] Work Phone: Comment on above: Expected: 12/03/2022, Expires: 3 Start: 12-03-2022 End: 02-02-2023 CREATININE BLD [facility] Work Phone: Comment on above: Expected: 12/03/2022, Expires: 3 Start: 12-03-2022 End: 02-02-2023 Erythrocyte sedimentation rate [facility] Work Phone: Comment on above: Expected: 12/03/2022, Expires: 3 Start: 12-03-2022 End: 02-02-2023 Urea nitrogen [Mass/volume] in Serum or Plasma [facility] Work Phone: Comment on above: Expected: 12/03/2022, Expires: 3 Start: 2022 HPV TESTING HPV TESTING [facility] Start: 09-22-2022 COVID-19 VACCINE (6 - Pfizer risk series) COVID-19 VACCINE (6 - Pfizer risk series) [facility] Start: 09-10-2022 End: 09-10-2022 Patient encounter procedure 09/10/2022 Office Visit NETWORK APPLICATIONS SPECIALIST Karen Duval APRN-ABDIRAHMAN [address] [facility] [address] [place] [address] Obstetrics and Gynecology [facility] Start: 04-15-2022 Influenza vaccination [facility] Start: 01-20-2022 End: 02-12-2023 Us transvaginal US FEMALE PELVIS TRANSVAG Radiology Routine Intrauterine contraceptive device threads lost, initial encounter Expected: 01/20/2022, Expires: 02/12/2023 [facility] Work Phone: Comment on above: Expected: 01/20/2022, Expires: 3 Start: 11-23-2021 COVID-19 VACCINE (5 - Booster for Pfizer series) COVID-19 VACCINE (5 - Booster for Pfizer series) [facility] Start: 10-20-2021 Screening for malignant neoplasm of cervix CERVICAL CANCER SCREENING DISCUSSION [facility] Start: 09-06-2021 COVID-19 Vaccine (3 - Booster for Pfizer series) COVID-19 Vaccine (3 - Booster for Pfizer series) [facility] Start: 05-15-2015 PNEUMOCOCCAL (2 - PCV) PNEUMOCOCCAL (2 - PCV) [facility] Start: 05-15-2015 Pneumococcal vaccination [facility] Start: 2013 Screening for malignant neoplasm of cervix CERVICAL CANCER SCREENING DISCUSSION [facility] Start: 2011 SHINGRIX VACCINE (1 of 2) SHINGRIX VACCINE (1 of 2) [facility] Start: 2010 Hepatitis C screening Hepatitis C Screening [facility] Start: 2007 HIV screening [facility] Start: 2004 Depression screening using PHQ-9 (Patient Health Questionnaire 9) score Depression Screening (PHQ-2/9) [facility] Start: 1995 History and physical examination, annual for health maintenance Wellness Visit [facility] Start: 1995 PREVENTATIVE HEALTH VISIT PREVENTATIVE HEALTH VISIT [facility] Start: 1992 Hepatitis C antibody, confirmatory test HEPATITIS C VIRUS SCREENING [facility] Start: 1992 Hepatitis C screening HEPATITIS C VIRUS SCREENING [facility] Start: 1992 Screening for malignant neoplasm of cervix Pap Smear [facility] End: 07-05-2024 Alanine aminotransferase [Enzymatic activity/volume] in Serum or Plasma ALT/SGPT Lab Routine SO-JILLIAN (systemic onset juvenile idiopathic arthritis) (HCC) Periodic fever syndrome (HCC) Every 3 months for 4 Occurrences starting 07/06/2023 until 07/05/2024 [facility] Work Phone: Comment on above: Every 3 months for 4 Occurrences startin g 07/06/2023 until 07/05/2024 End: 07-05-2024 Aspartate aminotransferase [Enzymatic activity/volume] in Serum or Plasma AST/SGOT BLD Lab Routine SO-JILLIAN (systemic onset juvenile idiopathic arthritis) (HCC) Periodic fever syndrome (HCC) Every 3 months for 4 Occurrences starting 07/06/2023 until 07/05/2024 [facility] Work Phone: Comment on above: Every 3 months for 4 Occurrences startin g 07/06/2023 until 07/05/2024 Bacteria identified in Urine by Culture URINE CULTURE Microbiology STAT RLQ abdominal pain Ordered: 06/28/2022 [facility] Comment on above: Ordered: 06/28/2022 End: 04-05-2024 C reactive protein [Mass/volume] in Serum or Plasma C-REACTIVE PROTEIN (CRP) Lab Routine SO-JILLIAN (systemic onset juvenile idiopathic arthritis) (HCC) Once per month for 3 Occurrences starting 04/06/2023 until 04/05/2024 [facility] Work Phone: Comment on above: Once per month for 3 Occurrences startin g 04/06/2023 until 04/05/2024 End: 07-05-2024 C reactive protein [Mass/volume] in Serum or Plasma C-REACTIVE PROTEIN (CRP) Lab Routine SO-JILLIAN (systemic onset juvenile idiopathic arthritis) (HCC) Periodic fever syndrome (HCC) Every 3 months for 4 Occurrences starting 07/06/2023 until 07/05/2024 [facility] Work Phone: Comment on above: Every 3 months for 4 Occurrences startin g 07/06/2023 until 07/05/2024 End: 04-05-2024 CBC W Auto Differential panel - Blood CBC + DIFF Lab Routine SO-JILLIAN (systemic onset juvenile idiopathic arthritis) (HCC) Once per month for 3 Occurrences starting 04/06/2023 until 04/05/2024 [facility] Work Phone: Comment on above: Once per month for 3 Occurrences startin g 04/06/2023 until 04/05/2024 End: 07-05-2024 CBC W Auto Differential panel - Blood CBC + DIFF Lab Routine SO-JILLIAN (systemic onset juvenile idiopathic arthritis) (HCC) Periodic fever syndrome (HCC) Every 3 months for 4 Occurrences starting 07/06/2023 until 07/05/2024 [facility] Work Phone: Comment on above: Every 3 months for 4 Occurrences startin g 07/06/2023 until 07/05/2024 Chlamydia trachomatis+Neisseria gonorrhoeae DNA [Presence] in Unspecified specimen by JOSSIE with probe detection GONORRHEA/CHLAMYDIA NAAT Lab Routine Screening for STD (sexually transmitted disease) 02/25/2023 4:49 PM EDT [facility] Work Phone: COLPOSCOPY COLPOSCOPY Proce dures Routine Cervical high risk HPV (human papillomavirus) test positive Ordered: 03/12/2024 [facility] Work Phone: Comment on above: Ordered: 03/12/2024 COVID & INFLUENZA A/ B & RSV PCR, ROUTINE COVID & INFLUENZA A/B & RSV PCR, ROUTINE Microbiology Routine Acute cough URI, acute Ordered: 09/25/2024 [facility] Work Phone: Comment on above: Ordered: 09/25/2024 End: 04-05-2024 CREATININE BLD CREATININE BLD Lab Routine SO-JILLIAN (systemic onset juvenile idiopathic arthritis) (HCC) Once per month for 3 Occurrences starting 04/06/2023 until 04/05/2024 [facility] Work Phone: Comment on above: Once per month for 3 Occurrences startin g 04/06/2023 until 04/05/2024 End: 07-05-2024 CREATININE BLD CREATININE BLD Lab Routine SO-JILLIAN (systemic onset juvenile idiopathic arthritis) (HCC) Periodic fever syndrome (HCC) Every 3 months for 4 Occurrences starting 07/06/2023 until 07/05/2024 [facility] Work Phone: Comment on above: Every 3 months for 4 Occurrences startin g 07/06/2023 until 07/05/2024 End: 05-20-2024 ECG COMPLETE ECG COMPLETE ECG Routine Abnormal EKG POTS (postural orthostatic tachycardia syndrome) 1 Occurrences starting 05/20/2023 until 05/20/2024 [facility] Work Phone: Comment on above: 1 Occurrences starting 05/20/2023 until 05/20/2024 End: 04-05-2024 Erythrocyte sedimentation rate SED RATE WESTERGREN Lab Routine SO-JILLIAN (systemic onset juvenile idiopathic arthritis) (HCC) Once per month for 3 Occurrences starting 04/06/2023 until 04/05/2024 [facility] Work Phone: Comment on above: Once per month for 3 Occurrences startin g 04/06/2023 until 04/05/2024 End: 07-05-2024 Erythrocyte sedimentation rate SED RATE WESTERGREN Lab Routine SO-JILLIAN (systemic onset juvenile idiopathic arthritis) (HCC) Periodic fever syndrome (HCC) Every 3 months for 4 Occurrences starting 07/06/2023 until 07/05/2024 [facility] Work Phone: Comment on above: Every 3 months for 4 Occurrences startin g 07/06/2023 until 07/05/2024 End: 04-05-2024 Hepatic function 2000 panel - Serum or Plasma HEPATIC FUNCTION PNL Lab Routine SO-JILLIAN (systemic onset juvenile idiopathic arthritis) (HCC) Once per month for 3 Occurrences starting 04/06/2023 until 04/05/2024 [facility] Work Phone: Comment on above: Once per month for 3 Occurrences startin g 04/06/2023 until 04/05/2024 Influenza virus A an d B RNA and SARS-CoV-2 (COVID-19) N gene panel - Respiratory specimen by JOSSIE with probe detection COVID & INFLUENZA A/B NAAT, ROUTINE Microbiology Routine Fever, unspecified fever cause 06/06/2023 8:54 AM EDT [facility] Work Phone: Insertion intrauteri ne device iud INSERT INTRAUTERINE DEVICE Procedures Routine Encounter for IUD insertion Ordered: 12/04/2021 [facility] Work Phone: Comment on above: Ordered: 12/04/2021 End: 04-05-2024 Lipid 1996 panel - Serum or Plasma LIPID PANEL BASIC Lab Routine SO-JILLIAN (systemic onset juvenile idiopathic arthritis) (FORMER[facility]) Every 6 months for 2 Occurrences starting 04/06/2023 until 04/05/2024 [facility] Work Phone: Comment on above: Every 6 months for 2 Occurrences startin g 04/06/2023 until 04/05/2024 End: 10-22-2022 Mri any jt lower extrem w/o contrast matrl MRI ANKLE WO IVCON LT Radiology Routine Chronic pain of left ankle 1 Occurrences starting 09/22/2021 until 10/22/2022 [facility] Work Phone: Comment on above: 1 Occurrences starting 09/22/2021 until 10/22/2022 PAP TEST PAP TEST Lab Rou subhash Encounter for gynecological examination (general) (routine) without abnormal findings 02/25/2023 4:49 PM EDT [facility] Work Phone: PAP TEST PAP TEST Lab Rou subhash Encounter for gynecological examination (general) (routine) without abnormal findings Screening for cervical cancer Encounter for screening for human papillomavirus (HPV) Cervical high risk human papillomavirus (HPV) DNA test positive 02/27/2024 3:56 PM EDT [facility] Removal intrauterine device iud REMOVE INTRAUTERINE DEVICE Procedures Routine Pelvic pain in female Ordered: 02/27/2024 [facility] Work Phone: Comment on above: Ordered: 02/27/2024 SURGICAL PATHOLOGY SURGICAL PATH OLOGY Lab Routine Cervical high risk HPV (human papillomavirus) test positive 03/15/2024 10:31 AM EDT [facility] Work Phone: End: 04-05-2024 Urea nitrogen [Mass/volume] in Serum or Plasma BUN BLOOD Lab Routine SO-JILLIAN (systemic onset juvenile idiopathic arthritis) (HCC) Once per month for 3 Occurrences starting 04/06/2023 until 04/05/2024 [facility] Work Phone: Comment on above: Once per month for 3 Occurrences startin g 04/06/2023 until 04/05/2024 End: 07-05-2024 Urea nitrogen [Mass/volume] in Serum or Plasma BUN BLOOD Lab Routine SO-JILLIAN (systemic onset juvenile idiopathic arthritis) ([facility]) Periodic fever syndrome (HCC) Every 3 months for 4 Occurrences starting 07/06/2023 until 07/05/2024 [facility] Work Phone: Comment on above: Every 3 months for 4 Occurrences startin g 07/06/2023 until 07/05/2024 End: 01-17-2026 XR HIP BILATERAL 5V PEL/AP/LAT EACH HIP XR HIP BILATERAL 5V PEL/AP/LAT EACH HIP Radiology Routine SO-JILLIAN (systemic onset juvenile idiopathic arthritis) (HCC) 1 Occurrences starting 12/18/2024 until 01/17/2026 [facility] Comment on above: 1 Occurrences starting 12/18/2024 until 01/17/2026 End: 01-17-2026 XR Sacroiliac Joint Views XR SACROILIAC JOINTS 2V AP PELVIS/FERGUESON Radiology Routine SO-JILLIAN (systemic onset juvenile idiopathic arthritis) ([facility]) 1 Occurrences starting 12/18/2024 until 01/17/2026 [facility] Comment on above: 1 Occurrences starting 12/18/2024 until 01/17/2026 End: 11-12-2024 XR Shoulder - left 2 Views XR SHOULDER LIMITED 2V AP/TRUE AP LEFT Radiology Routine Chronic left shoulder pain 1 Occurrences starting 10/14/2023 until 11/12/2024 [facility] Work Phone: Comment on above: 1 Occurrences starting 10/14/2023 until 11/12/2024 XR Shoulder - left 2 Views XR SHOULDER LIMITED 2V AP/TRUE AP LEFT Radiology Routine Chronic left shoulder pain 10/14/2023 12:10 PM EST [facility] Work Phone: XR Shoulder - right 2 Views XR SHOULDER [id number] AP/TRUE AP RIGHT Radiology Routine Chronic left shoulder pain 10/14/2023 11:48 AM EST [facility] Work Phone: [facility] Immunizations Immunization Date Immunization Notes Care Provider [facility] 10-31-2024 tetanus toxoid, reduced diphtheria toxoid, and acellular pertussis vaccine, adsorbed Nicholas Dorantes BLADE SHARPENER.SAFETY COUNCIL DIRECTOR Work Phone: [facility] 04-21-2024 Seasonal trivalent influenza vaccine, adjuvanted, preservative free Silvia Tucker MD Work Phone: [facility] 03-29-2024 Human Papillomavirus 9-valent vaccine Ayaan Rowley BLADE SHARPENER.CNM Work Phone: [facility] 03-15-2024 HPV, unspecified formulation Karen Jenkins MD Work Phone: [facility] 05-24-2023 influenza, injectabl e, quadrivalent, contains preservative Karen Jenkins MD Work Phone: [facility] 05-24-2023 influenza virus vaccine, unspecified formulation Isela Street MD Work Phone: [facility] 07-20-2022 influenza, injectabl e, quadrivalent, preservative free Isis Melo INPATIENT CODER Work Phone: [facility] 07-20-2022 influenza virus vaccine, unspecified formulation Faustina Carcamo MD Work Phone: [facility] 04-06-2021 COVID-19 vaccine, ag e 12+ yr ([employer] PURPLE [employer]) Ayaan Rowley BLADE SHARPENER.CNM Work Phone: [facility] Work Phone: 04-06-2021 influenza, injectabl e, quadrivalent, preservative free Isis eMlo [facility] Work Phone: [facility] 04-06-2021 influenza, seasonal, injectable Ayaan Plotts BLADE SHARPENER.CNM Work Phone: [facility] Work Phone: 04-06-2021 influenza virus vaccine, unspecified formulation Lucianomarck Vazquez [facility] Work Phone: [facility] 11-01-2020 COVID-19 vaccine, ag e 12+ yr ([employer] [facility] - PURPLE TOP) Ayaan Plotts BLADE SHARPENER.CNM Work Phone: [facility] Work Phone: 04-25-2020 influenza, injectabl e, quadrivalent, preservative free Ayaan Plotts BLADE SHARPENER.CNM Work Phone: [facility] 06-20-2019 influenza, injectabl e, quadrivalent, contains preservative Ayaan Plotts BLADE SHARPENER.CNM Work Phone: [facility] 03-08-2019 tetanus toxoid, reduced diphtheria toxoid, and acellular pertussis vaccine, adsorbed Ayaan Plotts BLADE SHARPENER.CNM Work Phone: [facility] 06-19-2018 influenza, injectabl e, quadrivalent, contains preservative Ayaan Plotts BLADE SHARPENER.CNM Work Phone: [facility] 04-27-2017 influenza, injectabl e, quadrivalent, contains preservative Ayaan Plotts BLADE SHARPENER.CNM Work Phone: [facility] 06-25-2016 influenza, injectabl e, quadrivalent, contains preservative Ayaan Plotts BLADE SHARPENER.CNM Work Phone: [facility] 05-15-2014 influenza, seasonal, injectable Ayaan Plotts BLADE SHARPENER.CNM Work Phone: [facility] 05-15-2014 pneumococcal polysaccharide vaccine, 23 valent Ayaan Plotts BLADE SHARPENER.CNM Work Phone: [facility] 06-19-2013 influenza virus vaccine, unspecified formulation Ayaan Rowley BLADE SHARPENER.CNM Work Phone: [facility] 04-15-2011 meningococcal polysaccharide (groups A, C, Y and W-135) diphtheria toxoid conjugate vaccine (MCV4P) Ayaan Rowley BLADE SHARPENER.CNM Work Phone: [facility] 03-17-2011 hepatitis A vaccine, pediatric/adolescent dosage, 2 dose schedule Mario LARRY Work Phone: [facility] 03-17-2011 hepatitis A vaccine, unspecified formulation Ayaan Rowley BLADE SHARPENER.CNM Work Phone: [facility] Work Phone: 03-17-2011 tetanus toxoid, reduced diphtheria toxoid, and acellular pertussis vaccine, adsorbed Ayaan Rowley BLADE SHARPENER.CNM Work Phone: [facility] Work Phone: 03-17-2011 tuberculin skin test ; purified protein derivative solution, intradermal Patsangeethag Trenton PEÑA Work Phone: [facility] 01-14-2010 human papilloma viru s vaccine, quadrivalent Ayaan Rowley BLADE SHARPENER.CNM Work Phone: [facility] Work Phone: 06-14-2007 human papilloma viru s vaccine, quadrivalent Ayaan Rowley BLADE SHARPENER.CNM Work Phone: [facility] Work Phone: 05-09-2007 human papilloma viru s vaccine, quadrivalent Ayaan Rowley BLADE SHARPENER.CNM Work Phone: [facility] Work Phone: 04-04-2006 hepatitis B vaccine, pediatric or pediatric/adolescent dosage Ayaan Rowley BLADE SHARPENER.CNM Work Phone: [facility] Work Phone: 05-31-2005 hepatitis B vaccine, pediatric or pediatric/adolescent dosage Ayaan Rowley BLADE SHARPENER.CNM Work Phone: [facility] Work Phone: 04-02-2005 hepatitis B vaccine, pediatric or pediatric/adolescent dosage Ayaan Rowley BLADE SHARPENER.CNM Work Phone: [facility] Work Phone: 04-02-2005 meningococcal polysaccharide (groups A, C, Y and W-135) diphtheria toxoid conjugate vaccine (MCV4P) [facility] Work Phone: [facility] 04-02-2005 Meningococcal, MCV4, unspecified conjugate formulation(groups A, C, Y and W-135) Ayaan Rowley BLADE SHARPENER.CN Work Phone: [facility] Work Phone: 04-02-2005 tetanus and diphther ia toxoids, adsorbed, preservative free, for adult use (2 Lf of tetanus toxoid and 2 Lf of diphtheria toxoid) Ayaan Rowley BLADE SHARPENER.CNM Work Phone: [facility] Work Phone: 04-02-2005 tetanus and diphther ia toxoids, not adsorbed, for adult use [facility] Work Phone: [facility] 03-17-1998 diphtheria, tetanus toxoids and acellular pertussis vaccine Ayaan Rowley BLADE SHARPENER.CNM Work Phone: [facility] Work Phone: 03-17-1998 measles, mumps and rubella virus vaccine Ayaan Rowley BLADE SHARPENER.CNM Work Phone: [facility] Work Phone: 03-17-1998 trivalent poliovirus vaccine, live, oral Ayaan Rowley BLADE SHARPENER.CNM Work Phone: [facility] Work Phone: 10-23-1994 diphtheria, tetanus toxoids and acellular pertussis vaccine Ayaan Rowley BLADE SHARPENER.CNM Work Phone: [facility] Work Phone: 10-23-1994 haemophilus influenz ae type b vaccine, HbOC conjugate Ayaan Kamrynts BLADE SHARPENER.CNM Work Phone: [facility] Work Phone: 10-23-1994 trivalent poliovirus vaccine, live, oral Ayaan Harryts BLADE SHARPENER.CNM Work Phone: [facility] Work Phone: 04-06-1994 Chicken Pox (disease) Courtn kai Kamrynedison BLADE SHARPENER.CNM Work Phone: [facility] Work Phone: 04-06-1994 poliovirus vaccine, unspecified formulation Mario ANDRES Work Phone: [facility] 04-06-1994 varicella virus vaccine Ovi María CLINE Work Phone: [facility] 02-02-1994 measles, mumps and rubella virus vaccine Ayaan Plotts BLADE SHARPENER.CNM Work Phone: [facility] Work Phone: 04-15-1993 diphtheria, tetanus toxoids and pertussis vaccine Ayaan Plotts BLADE SHARPENER.CNM Work Phone: [facility] Work Phone: 04-15-1993 haemophilus influenz ae type b vaccine, HbOC conjugate Ayaan Harryts BLADE SHARPENER.CNM Work Phone: [facility] Work Phone: 02-17-1993 diphtheria, tetanus toxoids and pertussis vaccine Ayaan Plotts BLADE SHARPENER.CNM Work Phone: [facility] Work Phone: 02-17-1993 haemophilus influenz ae type b vaccine, HbOC conjugate Ayaan Plotts BLADE SHARPENER.CNM Work Phone: [facility] Work Phone: 02-17-1993 trivalent poliovirus vaccine, live, oral Ayaan Harryts BLADE SHARPENER.CNM Work Phone: [facility] Work Phone: 1992 diphtheria, tetanus toxoids and pertussis vaccine Ayaan Rowley BLADE SHARPENER.CNM Work Phone: [facility] Work Phone: 1992 haemophilus influenz ae type b vaccine, HbOC conjugate Ayaan Rowley BLADE SHARPENER.CNM Work Phone: [facility] Work Phone: 1992 trivalent poliovirus vaccine, live, oral Ayaan Halley BLADE SHARPENER.CNM Work Phone: [facility] Work Phone: Payers Date Payer Category Payer Self-pay 2024 Unknown [id number] 2024 Medicaid [id number] 2023 Unknown [id number] 2022 Private Health Insurance [id number] 2022 Private Health Insurance [id number] 2022 Unknown MMO MMO [employer] [id number] 2022-Present [phone] [address] [place] [address] PPO [id number] 2022 Unknown [id number] 2022 Unknown [id number] 2018 Medicaid [employer] [facility] [employer] [id number] 2018-Present [phone] [address] [place] [address] Medicaid [id number] 2018 Medicaid [id number] 1992 Unknown [id number] 1992 Unknown [id number] 1992 Unknown [id number] 594 1992 Unknown [id number] 594 1992 Unknown [id number] 594 1992 Unknown [id number] 594 1992 Unknown [id number] 594 1992 Unknown [id number] 594 1992 Unknown [id number] 594 Unknown [id number] 462 Unknown [id number] Unknown [id number] Unknown [id number] Social History Date Type Detail Facility Start: 01-24-2015 End: 07-14-2022 Tobacco smoking status NHIS Never smoked tobacco [facility] Start: 01-24-2015 End: 07-14-2022 Tobacco use and exposure Smokeless tobacco non-user [facility] Start: 10-29-2021 End: 11-22-2024 Alcohol intake Current drinker of alcohol (finding) [facility] Start: 09-16-2021 End: 08-10-2022 History SDOH Alcohol Frequency 2 [facility] Start: 09-16-2021 End: 08-10-2022 History SDOH Alcohol Std Drinks 1 [facility] Start: 10-20-2020 History SDOH Alcohol Comment occiasionally [facility] Start: 09-16-2021 History SDOH Social Connections Phone 5 [facility] Start: 09-16-2021 End: 08-10-2022 History SDOH Social Connections Living 7 [facility] Start: 09-16-2021 End: 08-10-2022 History SDOH Stress 3 [facility] Start: 01-08-2020 Education 17 [facility] Start: 08-01-2012 Tobacco Comment father and mother smoke inside [facility] Start: 1990 Sex Assigned At Female [facility] Start: 11-03-2021 End: 11-13-2021 Exposure to SARS-CoV-2 (event) Yes [facility] Work Phone: Start: 05-06-2020 End: 06-28-2022 Exposure to SARS-CoV-2 (event) Not sure [facility] Start: 1990 Sex Assigned At Not on file [facility] Start: 07-14-2022 Tobacco Comment Father and Mother smoked in home. Stopped 03/2013. [facility] Start: 08-10-2022 History SDOH Stress 4 [facility] Start: 09-10-2022 End: 09-20-2022 Exposure to SARS-CoV-2 (event) Unable to assess [facility] Start: 08-09-2022 End: 02-21-2023 History of Social function [facility] Start: 08-09-2022 End: 02-21-2023 Social connection and isolation panel [facility] Are you now , , , , never or living with a partner? Never [facility] How often to you hav e a drink containing alcohol? Monthly or less [facility] How many standard drinks containing alcohol do you have on a typical day? 1 or 2 [facility] How often do you hav e 6 or more drinks on 1 occasion? Never [facility] How hard is it for y ou to pay for the very basics like food, housing, medical care, and heating Somewhat hard [facility] Adult Depression Screening Assessment 2 [facility] Do you feel stress - tense, restless, nervous, or anxious, or unable to sleep at night because your mind is troubled all the time - these days [OSQ] Rather much [facility] (I/We) worried wheth er (my/our) food would run out before (I/we) got money to buy more. Never true [facility] In the past 12 month s, was there a time when you were not able to pay the mortgage or rent on time? No [facility] Start: 11-17-2018 Gender identity Identifies as female gender (finding) [facility] Start: 03-17-2021 Sexual orientation Bisexual (finding) [facility] How often to you hav e a drink containing alcohol? 2-3 time sa week [facility] Do you feel stress - tense, restless, nervous, or anxious, or unable to sleep at night because your mind is troubled all the time - these days [OSQ] To some extent [facility] How often do you hav e 6 or more drinks on 1 occasion? Less than monthly [facility] (I/We) worried wheth er (my/our) food would run out before (I/we) got money to buy more. Sometimes true [facility] Start: 09-17-2013 Alcohol Comment About one drink every 2 months [facility] Are you now , , , , never or living with a partner? Living with partner [facility] Do you feel stress - tense, restless, nervous, or anxious, or unable to sleep at night because your mind is troubled all the time - these days [OSQ] Very much [facility] Medical Equipment Procedure Code Equipment Code Equipment Origin al Text Equipment Identifier Dates [id number], [id number], [id number], [id number], [id number] Start: 04-22-2021 End: 12-08-2023 Comment on above: 1 Syringe every 4 we eks. USE DIRECTED WITH SHAUNARIS Functional Status Date Assessment Result Facility 11-13-2024 Total score [AUDIT-C] 1 11/14/19 25 8:07 PM EDT User, Arline [facility] 11-13-2024 Within the last year , have you been humiliated or emotionally abused in other ways by your partner or ex-partner? No 11/13/2024 8:07 PM EDT User, Nealhart No [facility] 11-13-2024 Within the last year , have you been afraid of your partner or ex-partner? No 11/13/2024 8:07 PM EDT User, Nealhart No [facility] 11-13-2024 Within the last year , have you been raped or forced to have any kind of sexual activity by your partner or ex-partner? No 11/13/2024 8:07 PM EDT User, Nealhart No [facility] 11-13-2024 Within the last year , have you been kicked, hit, slapped, or otherwise physically hurt by your partner or ex-partner? No 11/13/2024 8:07 PM EDT User, Nealhart No [facility] 11-13-2024 How often to you hav e a drink containing alcohol? Monthly or less 11/13/2024 8:07 PM EDT User, Mychart Monthly or less [facility] 11-13-[address] inks containing alcohol do you have on a typical day? 1 or 2 11/13/2024 8:07 PM EDT User, Nealhart 1 or 2 [facility] 11-13-2024 How often do you hav e 6 or more drinks on 1 occasion? Never 11/13/2024 8:07 PM EDT User, Nealhart Never [facility] 03-15-2015 Are you deaf, or do you have serious difficulty hearing No 03/15/2015 9:06 AM Lissette Guevara MA No [facility] 03-15-2015 Are you blind, or do you have serious difficulty seeing, even when wearing glasses No 03/15/2015 9:06 AM Lissette Guevara MA No [facility] 03-15-2015 Do you have serious difficulty walking or climbing stairs No 03/15/2015 9:06 AM Lissette Guevara MA No [facility] 03-15-2015 Do you have difficul ty dressing or bathing No 03/15/2015 9:06 AM Lissette Guevara MA No [facility] 03-15-2015 Because of a physica l, mental, or emotional condition, do you have difficulty doing errands alone such as visiting a physician's office or shopping No 03/15/2015 9:06 AM EDT Lissette Barnes MA No [facility] Mental Status Date Assessment Result Facility 03-15-2015 Because of a physica l, mental, or emotional condition, do you have serious difficulty concentrating, remembering, or making decisions No 03/15/2015 9:06 AM EDT Lissette Barnes MA No [facility] Clinical Notes 06-05-2020 to 01-09-2025 Petra Beckman APRN.SAFETY COUNCIL DIRECTOR - 01/09/2025 10:20 AM Kedar Odell PA - 12/21/2024 10:56 AM EDTTelephone Encounter - Maile Stacy RN - 12/18/2024 2:24 PM EDTPatient InstructionsAttachments Note Date & Type Note Facility 01-09-2025 Note [facility] 01-09-2025 History of Present illness Narrative SUBJECTIVE Liliam Thompson is a 34 year old female here today for a check up on her medical problems. Chief Complaint Patient presents with: Recheck: Persistent diarrhea and vomiting for the last 5 days. 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 BOB Curran is a 34-year-old female with a history of a rheumatologic condition, agoraphobia, and migraines, presenting with persistent diarrhea, emesis, and low-grade fevers. Bina reports persistent diarrhea and emesis following a flare-up of her rheumatologic condition. She was last seen on 12/22/2022 and has since completed a course of steroids and antibiotics, which she notes exacerbated her symptoms. Diarrhea has been ongoing, and emesis began approximately 5 days ago. She also reports low-grade fevers, with a maximum temperature of 100 F, and chills. She experiences upper right and left abdominal pain and has noticed bright red blood in her stool, which she attributes to a possible fissure or hemorrhoid. Bina is able to tolerate water and notes that her symptoms are less severe in the morning, worsening as the day progresses. She has not been taking Zofran for nausea due to its exacerbation of her migraines and reports that it is ineffective for her. She has not tried Phenergan. She denies recent sick contacts and has been staying home due to exacerbation of her agoraphobia, which she attributes to life stressors, including a potential move to [place] next month. She is currently taking 10 mg of Prozac and has not increased the dose to 20 mg, as previously advised by her nurse psychiatrist, whom she is scheduled to see in a few weeks. She suspects that her nausea may be related to Prozac. Bina also reports a recent episode of bradycardia, for which she was evaluated in the ED. She was informed that it might have been caused by atenolol, although she has never experienced bradycardia with this medication before. She believes she is currently dehydrated. Her medications were reviewed today and her list is now up to date. Medications Current Outpatient Medications Medication Sig naratriptan (AMERGE) 2.5 mg tablet Take 1 tablet by mouth as needed for migraine headache (see administration instructions). 2.5 mg at onset of headache, may repeat in 4 hours if needed EPINEPHrine (EPIPEN 2-ISIDRO) 0.3 mg/0.3 mL auto-injector Inject 0.3 mL intramuscularly as needed. 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 hydrOXYzine HCl (ATARAX) 50 mg tablet Take 1 tablet by mouth three times a day as needed for anxiety. colchicine 0.6 mg tablet Take 1 tablet by mouth two times a day. pantoprazole DR (PROTONIX) 40 mg tablet Take 1 tablet by mouth daily before breakfast. Take on empty stomach, 1/2 hr before meal. canakinumab, PF, (ILARIS, PF,) 150 mg/mL injection Inject 150mg (1 vial) subcutaneously every 4 weeks. ergocalciferol 50,000 unit capsule (VITAMIN D2, DRISDOL) Take 1 tablet by mouth once weekly. metFORMIN ER (GLUCOPHAGE XR) 500 mg 24 hr tablet Take 1 tablet by mouth daily with breakfast. Norethindrone, Contraceptive, 0.35 mg tablet Take 1 tablet by mouth once daily. baclofen 10 mg tablet Take [...] 2 Sprays in the nose once daily. promethazine (PHENERGAN) 25 mg tablet Take 1-2 tablets by mouth every 6 hours as needed for nausea/vomiting. WALKER ROLLATOR SEAT WITH 6 WHEELS - RED Adjustable. Use as directed for gait instability Syringe with Needle, Disp, 3 mL 18 x 1 1/2 Use to draw up ilaris dose Syringe with Needle, Disp, 1 mL 27 x 1/2 Use to inject subcutaneous Ilaris dose No current facility-administered medications for this visit. ALLERGIES Allergen Reactions Latex, Natural Rubb* Hives Banana GI Upset, Itching Gi issues and tingling of tongue and tightness in throat Latex Hives Seasonal Allergies Unknown GRASSES, WEEDS AND RAGWEED VERIFIED BY SKIN TESTING ACTIVE PROBLEM LIST Panic Disorder With Agoraphobia - 12/17/2022 Pots (Postural Orthostatic Tachycardia Syndrome) - 02/22/2022 Panic Attacks - 02/22/2022 Ptsd (Post-Traumatic Stress Disorder) - 02/22/2022 Sprain of Anterior Talofibular Ligament of Left Ankle - 11/10/2021 Sprain of Tibiofibular Ligament of Left Ankle - 11/10/2021 Chronic Pain of Left Ankle - 11/10/2021 Acute Left Ankle Pain - 09/29/2021 Left Ankle Strain, Sequela - 09/29/2021 Comment: Lateral ankle Loose Body in Left Ankle - 09/29/2021 Closed Nondisplaced Fracture of Navicular Bone of Left Foot - 09/29/2021 Periodic Fever Syndrome (Hcc) - 05/08/2020 Pain in Joint, Multiple Sites - 05/08/2020 Chronic Midline Low Back Pain Without Sciatica - 05/08/2020 Immunosuppression (Hcc) - 05/08/2020 Recurrent Fever - 05/01/2018 Comment: Apparently due to autoimmune disorder Thrombocytosis - 09/01/2016 Bulimia - 05/24/2016 Eating Disorder - 05/24/2016 Comment: also restricting per patient Muscle Twitching - 04/06/2016 Maxwell (Obstructive Sleep Apnea) - 03/10/2016 Migraine With Aura - 03/10/2016 Numbness and Tingling - 12/25/2015 Tremor of Unknown Origin - 12/25/2015 Double Vision - 12/25/2015 Obesity, Class Iii, Bmi 40-49.9 (Morbid Obesity) - 08/20/2015 Vomiting Nausea Vitamin D Deficiency - 07/25/2014 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 Stopped 03/2013. Vaping Use Vaping status: Never Used Substance Use Topics Alcohol use: Yes Comment: occiasionally Drug use: No Constitutional: (+) fever, (+) chills, (+) fatigue Gastrointestinal: (+) diarrhea, (+) vomiting, (+) nausea, (+) abdominal pain (upper right and left), (+) bright red blood in stool Neurological: (+) migraines Psychiatric: (+) anxiety, (+) agoraphobia, (+) panic attacks OBJECTIVE BP 168/103 Pulse 130 Wt 274 lb 7.6 oz (124.5kg) SpO2 99% LMP 12/31/2021 Physical Exam Vitals and nursing note reviewed. Constitutional: General: She is awake. She is not in acute distress. Appearance: Normal appearance. She is well-developed and well-groomed. She is not ill-appearing, toxic-appearing or diaphoretic. HENT: Head: Normocephalic. Right Ear: External ear normal. Left Ear: External ear normal. Nose: Nose normal. Eyes: General: Vision grossly intact. Conjunctiva/sclera: Conjunctivae normal. Pupils: Pupils are equal, round, and reactive to light. Neck: Vascular: No JVD. Trachea: Trachea normal. Cardiovascular: Rate and Rhythm: Normal rate and regular rhythm. Pulses: Normal pulses. Heart sounds: Normal heart sounds. No murmur heard. Pulmonary: Effort: Pulmonary effort is normal. No accessory muscle usage, prolonged expiration or respiratory distress. Breath sounds: Normal breath sounds. Abdominal: General: Bowel sounds are normal. Tenderness: There is no abdominal tenderness. Musculoskeletal: Cervical back: Neck supple. Skin: General: Skin is warm and dry. Capillary Refill: Capillary refill takes less than 2 seconds. Neurological: General: No focal deficit present. Mental Status: She is alert and oriented to person, place, and time. Mental status is at baseline. Psychiatric: Attention and Perception: Attention and perception normal. Mood and Affect: Affect normal. Mood is anxious. Speech: Speech is rapid and pressured. Behavior: Behavior normal. Behavior is cooperative. Thought Content: Thought content normal. Cognition and Memory: Cognition and memory normal. Judgment: Judgment normal. ASSESSMENT/PLAN: 1. Panic disorder with agoraphobia (F40.01) Increased anxiety and agoraphobia due to potential move to [place] next month. Currently on Prozac 10 mg daily. - Discussed increasing Prozac to 20 mg daily; patient to consult with nurse psychiatrist in a couple of weeks. 2. Immunosuppression (HCC) (D84.9) Recent flare-up of rheumatological illness; completed a course of steroids and antibiotics. Patient is at increased risk for infections. - Consider antibiotics if gastrointestinal symptoms persist or worsen. 3. Periodic fever syndrome (HCC) (M04.1) Low-grade fevers up to 100 F accompanied by chills. Recent history of bradycardia, likely secondary to dehydration. - Monitor temperature and hydration status. 4. Gastroenteritis (K52.9) Acute onset of diarrhea and emesis over the past five days, accompanied by low-grade fevers and chills. Abdominal pain localized to the upper right and left quadrants. Unable to tolerate Zofran due to exacerbation of migraines. No known exposure to infectious agents. Bright red blood in stool, likely secondary to an anal fissure or hemorrhoid. - Prescribed Phenergan 25 mg orally every 6 hours as needed for nausea, with instructions to take 1-2 tablets per dose. - Initiate [id number] probiotics to restore gut jimmie. - Monitor for changes in stool color; advised to report any dark red, maroon, or black stools. - Follow-up via Introhive message by the end of the week to report symptom status. Recording using [employer] software for draft documentation of the visit was discussed with the patient/authorized representative personal service; all questions welcomed and answered. Patient/authorized representative personal service agreed to proceed Portions of this note have been entered by ancillary staff. I have reviewed and when necessary edited, so that they are an adequate record of my encounter with this patient Please note that parts of this document were created using voice recognition software and therefore may contain grammatical errors. Patient verbalizes understanding of instructions from today's visit and in agreement with treatment plan. Questions answered. Agrees to call the office if questions, concerns of issues with acute symptoms not improving or if they worsen. See diagnoses and orders for additional plan(s). Allergies and medications were reviewed, list was updated, and refills given if needed. Past medical, surgical, social, and family history reviewed and updated as appropriate. Encouraged proper diet & exercise as well as compliance with taking medications. Age-appropriate health preventative measures were discussed. Return if symptoms worsen or fail to improve. Petra Beckman APRN-LIZZIE documented in this encounter [facility] 01-03-2025 Note [facility] 12-21-2024 Note [facility] 12-21-2024 History of Present illness Narrative TREVOR Dudley Liliam Thompson is a 34 year old female. Patient presents with: Nasal Congestion: Sinus congestion x 1 month; sore throat and fever x 4 days HPI 34-year-old female presents for sinus congestion, sore throat, fever. Patient states she has had sinus congestion for the past month. She has sinus pressure, sinus pain and occasional headaches. She states that 4 days ago she started getting sore throat fever. Temps have been around 100 to 101 F. Last fever was yesterday evening. She did take Advil this morning. She denies any cough, chest pain or shortness of breath. She is still able to eat and drink. No vomiting or diarrhea. She has been taking Sudafed, throat lozenges, Advil and Tylenol for symptoms. No other complaint PAST MEDICAL HISTORY Diagnosis Date Anxiety Angeli Constantino Asthmatic bronchitis ([facility]) recurrent episodes since pneumonia fall and winter Depression Angeli Constantino Epigastric abdominal pain Fibromyalgia Dr. Terrazas Inflammatory polyarthritis ([facility]) Joint pain Wood Buffer- Dr. eKlly @[facility] Migraine with aura visual aura; diagnosed with [...] arrhythmia Snoring Suicide attempt by acetaminophen overdose ([facility]) 06/2014 Syncope Vomiting PAST SURGICAL HISTORY Procedure Laterality Date COLONOSCOPY 05/15/2011 COLONOSCOPY FLX DX W/COLLJ SPEC WHEN PFRMD 07/03/2014 EGD TRANSORAL BIOPSY SINGLE/MULTIPLE 07/03/2014 MIRENA IUD 12/04/2021 Placed in office- Due for removal 11/2028 ALLERGIES Latex, Natural Rubber; Banana; Latex; and Seasonal Allergies MEDICATIONS naratriptan (AMERGE) 2.5 mg tablet Take 1 tablet by mouth as needed for migraine headache (see administration instructions). 2.5 mg at onset of headache, may repeat in 4 hours if needed EPINEPHrine (EPIPEN 2-ISIDRO) 0.3 mg/0.3 mL auto-injector Inject 0.3 mL intramuscularly as needed. 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 hydrOXYzine HCl (ATARAX) 50 mg tablet Take 1 tablet by mouth three times a day as needed for anxiety. colchicine 0.6 mg tablet Take 1 tablet by mouth two times a day. pantoprazole DR (PROTONIX) 40 mg tablet Take 1 tablet by mouth daily before breakfast. Take on empty stomach, 1/2 hr before meal. WALKER ROLLATOR SEAT WITH 6 WHEELS - [...] Take 1 tablet by mouth once daily. baclofen 10 mg tablet Take [...] 2 Sprays in the nose once daily. FAMILY HISTORY Problem Relation Age of Onset [...] Drug use: No Review of Systems Constitutional: Positive for fever. Negative for chills. HENT: Positive for congestion, sinus pressure, sinus pain and sore throat. Negative for ear pain. Respiratory: Negative for cough and shortness of breath. Cardiovascular: Negative for chest pain. Gastrointestinal: Negative for diarrhea and vomiting. Neurological: Positive for headaches. Objective BP 148/94 (BP Site: Left Arm, BP Position: Sitting) Pulse 120 Temp 36.4 C (97.5 F) Resp 20 Wt 125.9 kg (277 lb 9 oz) LMP 12/31/2021 SpO2 97% BMI 54.21 kg/m Physical Exam Vitals and nursing note reviewed. Constitutional: General: She is not in acute distress. Appearance: Normal appearance. She is not toxic-appearing. HENT: Right Ear: Tympanic membrane and ear canal normal. Left Ear: Tympanic membrane and ear canal normal. Nose: Congestion present. Right Sinus: Maxillary sinus tenderness present. Left Sinus: Maxillary sinus tenderness present. Mouth/Throat: Mouth: Mucous membranes are moist. Pharynx: Posterior oropharyngeal erythema present. No oropharyngeal exudate. Tonsils: 2+ on the right. 2+ on the left. Eyes: Conjunctiva/sclera: Conjunctivae normal. Cardiovascular: Rate and Rhythm: Normal rate and regular rhythm. Pulmonary: Effort: Pulmonary effort is normal. Breath sounds: Normal breath sounds. Lymphadenopathy: Cervical: No cervical adenopathy. Skin: General: Skin is warm and dry. Neurological: Mental Status: She is alert. {ASSESSMENT/PLAN: ASSESSMENT/PLAN: 1. Acute non-recurrent maxillary sinusitis - ICD9: 461.0, ICD10: J01.00 (primary diagnosis) - Will begin treatment with Augmentin 875 mg PO BID for 5 days - Supportive care with plenty of fluids, rest, and analgesia prn. 2. Sore throat - ICD9: 462, ICD10: J02.9 - suspect viral - Group A strep molecular testing negative - Discussed supportive care treatment with fluids, rest and analgesia. - The patient may also use warm salt water gargles, throat lozenges and/or OTC throat spray as needed. - STREP A MOLECULAR (POC) Diagnosis and treatment plan were discussed and questions were answered to the patient's satisfaction. Pt acknowledged understanding of concepts and follow up plan. Specific signs and symptoms that would indicate the need for higher level of care were discussed in detail warranting prompt ER evaluation. KLIO Drummond History and Record Review External record(s) reviewed: prior outpatient record. Differential Diagnoses - Sinusitis is more likely for the following reason(s): suggested by H&P - Strep pharyngitis is less likely for the following reason(s): laboratory studies not suggestive Disposition The patient was discharged. OTC Medications were advised: Tylenol/Motrin Procedures documented in this encounter [facility] 12-18-2024 Telephone encounter Note Called patient and questions answered. Maile Stacy RN [facility] 12-18-2024 Miscellaneous Notes Called patient and questions answered. Maile Stacy RN Patient called has procedure on 12/19 Patient asking if there if any special instructions before apt also is it okay if she take b/c and or advil before apt Patient can be reached at [phone] Please advise documented in this encounter [facility] 12-18-2024 Telephone encounter Note Patient called has procedure on 12/19 Patient asking if there if any special instructions before apt also is it okay if she take b/c and or advil before apt Patient can be reached at [phone] Please advise [facility] Work Phone: 12-18-2024 Instructions Silvia Tucker MD - 12/18/2024 8:26 AM EDT Labs and Xray today I will contact you through Introhive for results documented in this encounter [facility] 12-18-2024 History of Present illness Narrative MD Liliam Lobato December 17, 2024 Referring Provider: PCP: Faustina Carcamo MD Chief Complaint: Patient presents with: Recheck Background Rheumatologic History: Previously seen by multiple providers in our division From Dr. Lucero - Started having fevers in [place]/Senior year of high school. 16-19yo Was later diagnosed with inflammatory arthritis. [id number] Was treated with hydroxychloroquine + methotrexate While [...] chest, when she tries to sleep at [facility] she has difficulty laying down. 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 F/U 03/12/24 Ilaris approved in Sep. She has been doing better since then. No overt flare. Unfortunately, she just quit her job and is in the process of application for Medicaid coverage. F/U 07/30/24 1 flare since last visit that was aborted with 2 rounds of steroid pack. No flares since then. She has a dental issue that would require a tooth extraction (scheduled for later this month) and is now on antibiotics to prevent infection. Therefore, her ilaris is postponed (for 2 weeks already). She started to experience some joint pain and stiffness already. She has been doing well on Ilaris. Only 1 flare over the past 5 months. I will continue it along with colchicine. Since she is not dealing with an actual infection (antibiotic is more or less for prophylaxis), I think it is okay to resume ilaris now to prevent flare. F/U 11/22/24 She started to have joint pain and swelling along with daily fever since October. Also started to have sore throat and swollen tonsils in for 4 days. Seen by urgent care earlier today. Exudate is noted on her tonsils. She has been using Ilaris consistently. No interruption in treatment. I think she is in a flare. I will get baseline labs and will start to treat her flare with prednisone taper. She probably also has exudative tonsillitis, possibly from mono, in addition to systemic JILLIAN flare. Prednisone can help with this as well. Interim History: Patient returns for follow up, last visit 03/12/2024. Sore throat, joint pain, rash and fever were gone with steroid. We completed steroid taper about a week ago and she continues to do well except for some recurrence of low-grade fever and fatigue. PAST MEDICAL HISTORY Diagnosis Date Anxiety Angeli Constantino Asthmatic bronchitis (HCC) recurrent episodes since pneumonia fall and winter of 2011 Depression Angeli Constantino Epigastric abdominal pain Fibromyalgia Dr. Terrazas Inflammatory polyarthritis (HCC) Joint pain Wood Buffer- Dr. Kelly @[facility] Migraine with aura visual aura; diagnosed with [...] Health Maintenance Cervical Cancer Screening due on 02/26/2025 Immunization History Administered Date(s) Administered COVID-19 original vaccine, age 12+ yr, monovalent ([facility] - ALANIZ TOP) 09/28/2021 COVID-19 original vaccine, age 12+ yr, monovalent ([facility] - PURPLE TOP) 10/11/2020 11/01/2020 04/06/2021 COVID-19 vaccine, age 12+ yr ([facility] COMIRNATY) 06/22/2023 04/21/2024 COVID-19 vaccine, age 12+ yr, bivalent ([facility]) 07/28/2022 Haemophilus influenzae b (HbOC) vaccine, 4-dose [...] (HPV4) vaccine, quadrivalent (GARDASIL) 05/09/2007 06/14/2007 01/14/2010 human papillomavirus (HPV9) vaccine, 9 valent (GARDASIL 9) 03/29/2024 influenza (IIV3) vaccine, age 6 mo - 64 yr, trivalent (AFLURIA, FLULAVAL, FLUVIRIN, FLUZONE) 05/15/2014 04/06/2021 influenza (IIV4) vaccine, age 6 mo - 64 yr, quadrivalent (AFLURIA, FLULAVAL, FLUZONE) 06/25/2016 04/27/2017 06/19/2018 06/20/2019 influenza (IIV4) vaccine, age 6 mo - 64 yr, quadrivalent, PF (AFLURIA, FLUARIX, FLULAVAL, FLUZONE) 04/25/2020 04/06/2021 07/20/2022 influenza (IIV4) vaccine, quadrivalent (AFLURIA, FLULAVAL, FLUZONE) 05/24/2023 influenza (aIIV3) vaccine, age 65+ yr, trivalent, PF (FLUAD) 04/21/2024 influenza vaccine, unspecified formulation 06/19/2013 measles mumps [...] age 7+ yr (ADACEL, BOOSTRIX) 03/17/2011 03/08/2019 10/31/2024 tuberculin skin test (TST-PPD), purified protein derivative, intradermal 03/17/2011 varicella (ROXI) vaccine (VARIVAX) 04/06/1994 Current Outpatient Medications Medication Sig Dispense Refill naratriptan (AMERGE) 2.5 mg tablet Take 1 tablet by mouth as needed for migraine headache (see administration instructions). 2.5 mg at onset of headache, may repeat in 4 hours if needed 9 tablet 11 EPINEPHrine (EPIPEN 2-ISIDRO) 0.3 mg/0.3 mL auto-injector Inject 0.3 mL intramuscularly as needed. For allergic reaction.Seek emergent medical care immediately after use.Disp:1 2-pakw/customer service trainer 2 Each 0 albuterol HFA (PROAIR HFA) 90 mcg/actuation inhaler Inhale 2 Puffs as instructed every 4 hours as needed. 18 g 1 hydrOXYzine HCl (ATARAX) 50 mg tablet Take 1 tablet by mouth three times a day as needed for anxiety. 60 tablet 1 colchicine 0.6 mg tablet Take 1 tablet by mouth two times a day. [address] (PROTONIX) 40 mg tablet Take 1 tablet by mouth daily before breakfast. Take on empty stomach, 1/2 hr before meal. 30 tablet 0 WALKER ROLLATOR SEAT WITH 6 WHEELS - RED Adjustable. Use as directed for gait instability 1 Each 0 Syringe with Needle, Disp, 3 mL 18 x 1 1/2 Use to draw up ilaris dose 1 Each 12 Syringe with Needle, Disp, 1 mL 27 x 1/2 Use to inject subcutaneous Ilaris dose 1 Each 12 canakinumab, PF, (ILARIS, PF,) 150 mg/mL injection Inject 150mg (1 vial) subcutaneously every 4 weeks. 1 mL 11 ergocalciferol 50,000 unit capsule (VITAMIN D2, DRISDOL) Take 1 tablet by mouth once weekly. 12 capsule 3 metFORMIN ER (GLUCOPHAGE XR) 500 mg 24 hr tablet Take 1 tablet by mouth daily with breakfast. 90 tablet 3 Norethindrone, Contraceptive, 0.35 mg tablet Take 1 tablet by mouth once daily. 84 tablet 2 baclofen 10 mg tablet Take 1 tablet [...] 1 month if needed 60 capsule 5 montelukast (SINGULAIR) 10 mg tablet Take 1 [...] RAGWEED VERIFIED BY SKIN TESTING Physical Exam: LMP 12/31/2021 General: Not pale, no jaundice, [...] systemic JILLIAN 2. High risk medication use I think that her flare is already aborted by prednisone taper. I will obtain her sed rate and CRP to confirm it. I will also obtain x-ray of her hips and SI joint given her complaint of persistent back pain and hip pain. Recommendations/Plan Plan discussed with patient Return Visit: I will contact her through Introhive for results. We will make a plan after the results are available. I spent a total of 40 minutes on the date of the service which included preparing to see the patient, [id number] patient care, completing clinical documentation, obtaining and/or reviewing separately obtained history, performing a medically appropriate examination, counseling and educating the patient/family/caregiver, and ordering medications, tests, or procedures. Silvia Tucker MD Referring Provider: PCP: Faustina Carcamo MD documented in this encounter [facility] 12-18-2024 Note [facility] 12-06-2024 Note [facility] 11-23-2024 Telephone encounter Note Just needs scheduled with a physician (Saad Jenkins Wiswell, [place]) so Endosee (in office camera) can be used at the same time. Please contact patient to schedule. Janett Heard RN [facility] 11-23-2024 Miscellaneous Notes Just needs scheduled with a physician (Saad Jenkins Wiswell, [place]) so Endosee (in office camera) can be used at the same time. Please contact patient to schedule. Janett Heard RN Patient calling in regards to getting her IUD removed. She does have an active request for this. However she stated that she was told to let the obedience trainer know for her there has to be a camera for visibility . Wanting to make sure this does not have to be scheduled a certain way. Please review and advise. La Nena Lui November 23, 2024 3:25 PM documented in this encounter [facility] 11-23-2024 Telephone encounter Note Patient calling in regards to getting her IUD removed. She does have an active request for this. However she stated that she was told to let the obedience trainer know for her there has to be a camera for visibility . Wanting to make sure this does not have to be scheduled a certain way. Please review and advise. La Nena Lui November 23, 2024 3:25 PM [facility] 11-22-2024 History of Present illness Narrative VIRTUAL VISIT PROGRESS NOTE This is a virtual visit using [employer] Video Visit. It required patient-provider interaction for the medical decision making as documented below. I have communicated my name and active licensure. The patient's identity and physical location were verified at the time of this visit. Either the patient or their legal representative personal service has been informed of the risks and benefits of -- and alternatives to -- treatment through a remote evaluation and consents to proceed with the evaluation remotely. MD Liliam Lobato November 22, 2024 Referring Provider: PCP: Faustina Carcamo MD Chief Complaint: Patient presents with: Recheck Background Rheumatologic History: Previously seen by multiple providers in our division From Dr. Lucero - Started having fevers in [place]/Senior year of high school. 16-19yo Was later diagnosed with inflammatory arthritis. [id number] Was treated with hydroxychloroquine + methotrexate While [...] chest, when she tries to sleep at [facility] she has difficulty laying down. If [...] 6 times/year (20mg tapered down) -IM steroids [id number] q3-4 months -Prednisone 2012 - 6 week long tapers - q 2-3 months -Prednisone 2012 - 2017 - q 3-4 months -Prednisone - last Jul 2020 - 20mg taper by 5mg every 3 days -Anakinra: 07/2018 - 08/2019 (D/C due to ineffectiveness, recurrent flares and injection site reactions) Plan at [facility]: Assessment and Plan: 30 year old female [...] osteoporosis - ICD9: V82.81, ICD10: Z13.820 -Prior half-way steroid use along with history of osteoporosis [...] of her colchicine to twice daily F/U 2/11/22 Overall, she is doing better with colchicine [...] try to do another prior-authorization for Ilaris. F/U 03/12/24 Ilaris approved in Sep. She has been doing better since then. No overt flare. Unfortunately, she just quit her job and is in the process of application for Medicaid coverage. F/U 07/30/24 1 flare since last visit that was aborted with 2 rounds of steroid pack. No flares since then. She has a dental issue that would require a tooth extraction (scheduled for later this month) and is now on antibiotics to prevent infection. Therefore, her ilaris is postponed (for 2 weeks already). She started to experience some joint pain and stiffness already. She has been doing well on Ilaris. Only 1 flare over the past 5 months. I will continue it along with colchicine. Since she is not dealing with an actual infection (antibiotic is more or less for prophylaxis), I think it is okay to resume ilaris now to prevent flare. Interim History: Patient returns for follow up, last visit Visit date not found. She started to have joint pain and swelling along with daily fever since October. Also started to have sore throat and swollen tonsils in for 4 days. Seen by urgent care earlier today. Exudate is noted on her tonsils. She has been using Ilaris consistently. No interruption in treatment. PAST MEDICAL HISTORY Diagnosis Date Anxiety Angeli Constantino Asthmatic bronchitis (HCC) recurrent episodes since pneumonia fall and winter of 2011 Depression Angeli Constantino Epigastric abdominal pain Fibromyalgia Dr. Terrazas Inflammatory polyarthritis (HCC) Joint pain Wood Buffer- Dr. Kelly @[facility] Migraine with aura visual aura; diagnosed with [...] Health Maintenance Cervical Cancer Screening due on 02/26/2025 Immunization History Administered Date(s) Administered COVID-19 original vaccine, age 12+ yr, monovalent ([facility] - ALANIZ TOP) 09/28/2021 COVID-19 original vaccine, age 12+ yr, monovalent ([place] - PURPLE TOP) 10/11/2020 11/01/2020 04/06/2021 COVID-19 vaccine, age 12+ yr ([place] COMIRNATY) 06/22/2023 04/21/2024 COVID-19 vaccine, age 12+ yr, bivalent ([employer]) 07/28/2022 Haemophilus influenzae b (HbOC) vaccine, 4-dose [...] human papillomavirus (HPV4) vaccine, quadrivalent (GARDASIL) 05/09/2007 06/14/200701/14/2010 human papillomavirus (HPV9) vaccine, 9 valent (GARDASIL 9) 03/29/2024 influenza (IIV3) vaccine, age 6 mo - 64 yr, trivalent (AFLURIA, FLULAVAL, FLUVIRIN, FLUZONE) 05/15/2014 04/06/2021 influenza (IIV4) vaccine, age 6 mo - 64 yr, quadrivalent (AFLURIA, FLULAVAL, FLUZONE) 06/25/2016 04/27/2017 06/19/2018 06/20/2019 influenza (IIV4) vaccine, age 6 mo - 64 yr, quadrivalent, PF (AFLURIA, FLUARIX, FLULAVAL, FLUZONE) 04/25/2020 04/06/2021 07/20/2022 influenza (IIV4) vaccine, quadrivalent (AFLURIA, FLULAVAL, FLUZONE) 05/24/2023 influenza (aIIV3) vaccine, age 65+ yr, trivalent, PF (FLUAD) 04/21/2024 influenza vaccine, unspecified formulation 06/19/2013 measles mumps [...] age 7+ yr (ADACEL, BOOSTRIX) 03/17/2011 03/08/2019 10/31/2024 tuberculin skin test (TST-PPD), purified protein derivative, intradermal 03/17/2011 varicella (ROXI) vaccine (VARIVAX) 04/06/1994 Current Outpatient Medications Medication Sig Dispense Refill predniSONE (DELTASONE) 5 mg tablet 20 mg daily for 5 days, 15 mg daily for 5 days, 10 mg daily for 5 days, 5 mg daily for 5 days 50 tablet 0 naratriptan (AMERGE) 2.5 mg tablet Take 1 tablet by mouth as needed for migraine headache (see administration instructions). 2.5 mg at onset of headache, may repeat in 4 hours if needed 9 tablet 11 EPINEPHrine (EPIPEN 2-ISIDRO) 0.3 mg/0.3 mL auto-injector Inject 0.3 mL intramuscularly as needed. For allergic reaction.Seek emergent medical care immediately after use.Disp:1 2-pakw/customer service trainer 2 Each 0 benzonatate (TESSALON PERLE) 100 mg capsule Take 1 capsule by mouth three times a day as needed for cough. (Patient not taking: Reported on 10/31/2024) 21 capsule 0 albuterol HFA (PROAIR HFA) 90 mcg/actuation inhaler Inhale 2 Puffs as instructed every 4 hours as needed. 18 g 1 hydrOXYzine HCl (ATARAX) 50 mg tablet Take 1 tablet by mouth three times a day as needed for anxiety. 60 tablet 1 colchicine 0.6 mg tablet Take 1 tablet by mouth two times a day. [address] (PROTONIX) 40 mg tablet Take 1 tablet by mouth daily before breakfast. Take on empty stomach, 1/2 hr before meal. 30 tablet 0 WALKER ROLLATOR SEAT WITH 6 WHEELS - RED Adjustable. Use as directed for gait instability 1 Each 0 Syringe with Needle, Disp, 3 mL 18 x 1 1/2 Use to draw up ilaris dose 1 Each 12 Syringe with Needle, Disp, 1 mL 27 x 1/2 Use to inject subcutaneous Ilaris dose 1 Each 12 canakinumab, PF, (ILARIS, PF,) 150 mg/mL injection Inject 150mg (1 vial) subcutaneously every 4 weeks. 1 mL 11 ergocalciferol 50,000 unit capsule (VITAMIN D2, DRISDOL) Take 1 tablet by mouth once weekly. 12 capsule 3 metFORMIN ER (GLUCOPHAGE XR) 500 mg 24 hr tablet Take 1 tablet by mouth daily with breakfast. 90 tablet 3 Norethindrone, Contraceptive, 0.35 mg tablet Take 1 tablet by mouth once daily. 84 tablet 2 baclofen 10 mg tablet Take 1 tablet [...] 1 month if needed 60 capsule 5 montelukast (SINGULAIR) 10 mg tablet Take 1 [...] RAGWEED VERIFIED BY SKIN TESTING Physical Exam: LMP 12/31/2021 Impression: 1. Periodic fever syndrome -most consistent with systemic JILLIAN 2. High risk medication use I think she is in a flare. I will get baseline labs and will start to treat her flare with prednisone taper. She probably also has exudative tonsillitis, possibly from mono, in addition to systemic JILLIAN flare. Prednisone can help with this as well. Recommendations/Plan Plan discussed with patient Return Visit: In December as previously scheduled I spent a total of 40 minutes on the date of the service which included preparing to see the patient, [id number] patient care, completing clinical documentation, obtaining and/or reviewing separately obtained history, performing a medically appropriate examination, counseling and educating the patient/family/caregiver, and ordering medications, tests, or procedures. Silvia Tucker MD Referring Provider: PCP: Faustina Carcamo MD documented in this encounter [facility] 11-22-2024 Note [facility] 11-22-2024 Note [facility] 11-22-2024 History of Present illness Narrative [facility] Subjective Liliam Thompson is a 34 year old female. Patient presents with: Sore Throat: Fever, swollen tonsils x4 days HPI 34-year-old female presents for fever, sore throat, headache, swollen tonsils x 4 days. Patient states she was here 2 days ago for swollen tonsils. She had a strep test that was negative. She states that her tonsils have gotten more swollen and her throat is more sore now. She states that she has now developed fevers as well. Tmax 101 F. She did have a fever this morning, took Tylenol and Motrin. Patient states she has a little bit of a cough clearing her throat, but no chest cough. She denies any chest pain or shortness of breath. No vomiting or diarrhea. Still able to eat and drink, but painful to swallow. No other complaint. PAST MEDICAL HISTORY Diagnosis Date Anxiety Angeli Constantino Asthmatic bronchitis ([facility]) recurrent episodes since pneumonia fall and winter Depression Angeli Constantino Epigastric abdominal pain Fibromyalgia Dr. Terrazas Inflammatory polyarthritis ([facility]) Joint pain Wood Buffer- Dr. Kelly @[facility] Migraine with aura visual aura; diagnosed with [...] arrhythmia Snoring Suicide attempt by acetaminophen overdose ([facility]) 06/2014 Syncope Vomiting PAST SURGICAL HISTORY Procedure Laterality Date COLONOSCOPY 05/15/2011 COLONOSCOPY FLX DX W/COLLJ SPEC WHEN PFRMD 07/03/2014 EGD TRANSORAL BIOPSY SINGLE/MULTIPLE 07/03/2014 MIRENA IUD 12/04/2021 Placed in office- Due for removal 11/2028 ALLERGIES Latex, Natural Rubber; Banana; Latex; and Seasonal Allergies MEDICATIONS naratriptan (AMERGE) 2.5 mg tablet Take 1 tablet by mouth as needed for migraine headache (see administration instructions). 2.5 mg at onset of headache, may repeat in 4 hours if needed EPINEPHrine (EPIPEN 2-ISIDRO) 0.3 mg/0.3 mL auto-injector Inject 0.3 mL intramuscularly as needed. For allergic reaction.Seek emergent medical care immediately after use.Disp:1 2-pakw/customer service trainer benzonatate (TESSALON PERLE) 100 mg capsule Take 1 capsule by mouth three times a day as needed for cough. (Patient not taking: Reported on 10/31/2024) predniSONE (DELTASONE) 10 mg tablet Take 4 tabs daily for 3 days, then 2 tabs daily for 3 days, then 1 tab daily for 3 days with food. albuterol HFA (PROAIR HFA) 90 mcg/actuation inhaler Inhale 2 Puffs as instructed every 4 hours as needed. hydrOXYzine HCl (ATARAX) 50 mg tablet Take 1 tablet by mouth three times a day as needed for anxiety. colchicine 0.6 mg tablet Take 1 tablet by mouth two times a day. pantoprazole DR (PROTONIX) 40 mg tablet Take 1 tablet by mouth daily before breakfast. Take on empty stomach, 1/2 hr before meal. WALKER ROLLATOR SEAT WITH 6 WHEELS - [...] Take 1 tablet by mouth once daily. baclofen 10 mg tablet Take [...] 2 Sprays in the nose once daily. FAMILY HISTORY Problem Relation Age of Onset [...] Drug use: No Review of Systems Constitutional: Positive for chills and fever. HENT: Positive for sore throat. Negative for congestion and ear pain. Respiratory: Negative for cough and shortness of breath. Cardiovascular: Negative for chest pain. Gastrointestinal: Negative for diarrhea and vomiting. Neurological: Positive for headaches. Objective BP 116/78 Pulse 112 Temp 36.1 C (97 F) Resp 18 Wt 124.8 kg (275 lb 2.2 oz) LMP 12/31/2021 SpO2 98% BMI 53.73 kg/m Physical Exam Vitals and nursing note reviewed. Constitutional: General: She is not in acute distress. Appearance: Normal appearance. She is not toxic-appearing. HENT: Right Ear: Tympanic membrane and ear canal normal. Left Ear: Tympanic membrane and ear canal normal. Nose: Nose normal. Mouth/Throat: Mouth: Mucous membranes are moist. Pharynx: Uvula midline. Posterior oropharyngeal erythema present. Tonsils: Tonsillar exudate present. 2+ on the right. 2+ on the left. Eyes: Conjunctiva/sclera: Conjunctivae normal. Cardiovascular: Rate and Rhythm: Normal rate and regular rhythm. Pulmonary: Effort: Pulmonary effort is normal. Breath sounds: Normal breath sounds. Lymphadenopathy: Cervical: Cervical adenopathy present. Skin: General: Skin is warm and dry. Neurological: Mental Status: She is alert. {ASSESSMENT/PLAN: 1. Sore throat - ICD9: 462, ICD10: J02.9 (primary diagnosis) - suspect viral - Group A strep molecular testing negative - Discussed supportive care treatment with fluids, rest and analgesia. - The patient may also use warm salt water gargles, throat lozenges and/or OTC throat spray as needed. - STREP A MOLECULAR (POC) - MONOTEST, INFECTIOUS MONO 2. Exudative tonsillitis - ICD9: 463, ICD10: J03.90 - Advised still early for mono testing. Return in 2 to 3 days for lab test. -Discussed supportive treatment if mono positive. No contact sports. -Rx for prednisone to help with tonsillar swelling/discomfort - MONOTEST, INFECTIOUS MONO Diagnosis and treatment plan were discussed and questions were answered to the patient's satisfaction. Pt acknowledged understanding of concepts and follow up plan. Specific signs and symptoms that would indicate the need for higher level of care were discussed in detail warranting prompt ER evaluation. KILO Drummond History and Record Review External record(s) reviewed: prior outpatient record. Systemic symptoms present included: fever Differential Diagnoses - exudative tonsillitis is more likely for the following reason(s): suggested by H&P - strep pharyngitis is less likely for the following reason(s): laboratory studies not suggestive Disposition The patient was discharged. OTC Medications were advised: Tylenol/Motrin Procedures documented in this encounter [facility] 11-19-2024 Note [facility] 11-19-2024 History of Present illness Narrative [facility] Subjective Liliam Thompson is a 34 year old female. Patient presents with: Sore Throat: ST x 1 day-bleeding and white spots 34 year old female with PMH POTS presents for sore throat Acute onset today +sore throat +white spots Denies cough Denies SOB Denies dyspnea Denies abdominal pain Denies N/V/D Denies skin rash or lesions. The history is provided by the patient. No language path was used. Sore Throat This is a new problem. The current episode started today. The problem has been unchanged. Neither side of throat is experiencing more pain than the other. There has been no fever. The pain is at a severity of 6/10. The pain is moderate. Associated symptoms include swollen glands. Pertinent negatives include no abdominal pain, congestion, coughing, diarrhea, drooling, ear discharge, ear pain, headaches, hoarse voice, plugged ear sensation, neck pain, shortness of breath, stridor, trouble swallowing or vomiting. She has had no exposure to strep or mono. She has tried nothing for the symptoms. The treatment provided no relief. PAST MEDICAL HISTORY Diagnosis Date Anxiety Angeli Constantino Asthmatic bronchitis ([facility]) recurrent episodes since pneumonia fall and winter of 2011 Depression Angeli Constantino Epigastric abdominal pain Fibromyalgia Dr. Terrazas Inflammatory polyarthritis ([facility]) Joint pain Wood Buffer- Dr. Kelly @[facility] Migraine with aura visual aura; diagnosed with [...] for removal 11/2028 ALLERGIES Latex, Natural Rubber; Banana; Latex; and Seasonal Allergies MEDICATIONS naratriptan (AMERGE) 2.5 mg tablet Take 1 tablet by mouth as needed for migraine headache (see administration instructions). 2.5 mg at onset of headache, may repeat in 4 hours if needed EPINEPHrine (EPIPEN 2-ISIDRO) 0.3 mg/0.3 mL auto-injector Inject 0.3 mL intramuscularly as needed. For allergic reaction.Seek emergent medical care immediately after use.Disp:1 2-pakw/customer service trainer predniSONE (DELTASONE) 10 mg tablet Take 4 tabs daily for 3 days, then 2 tabs daily for 3 days, then 1 tab daily for 3 days with food. albuterol HFA (PROAIR HFA) 90 mcg/actuation inhaler Inhale 2 Puffs as instructed every 4 hours as needed. hydrOXYzine HCl (ATARAX) 50 mg tablet Take 1 tablet by mouth three times a day as needed for anxiety. colchicine 0.6 mg tablet Take 1 tablet by mouth two times a day. pantoprazole DR (PROTONIX) 40 mg tablet Take 1 tablet by mouth daily before breakfast. Take on empty stomach, 1/2 hr before meal. WALKER ROLLATOR SEAT WITH 6 WHEELS - [...] Take 1 tablet by mouth once daily. baclofen 10 mg tablet Take [...] 2 Sprays in the nose once daily. benzonatate (TESSALON PERLE) 100 mg capsule Take 1 capsule by mouth three times a day as needed for cough. (Patient not taking: Reported on 10/31/2024) FAMILY HISTORY Problem Relation Age of Onset [...] No Review of Systems Constitutional: Negative for activity change, appetite change, chills, fatigue and fever. HENT: Positive for sore throat. Negative for congestion, drooling, ear discharge, ear pain, hoarse voice and trouble swallowing. Eyes: Negative for pain, discharge, redness and itching. Respiratory: Negative for cough, shortness of breath and stridor. Cardiovascular: Negative for palpitations and leg swelling. Gastrointestinal: Negative for abdominal pain, diarrhea and vomiting. Musculoskeletal: Negative for neck pain. Skin: Negative for color change, pallor, rash and wound. Allergic/Immunologic: Positive for environmental allergies, food allergies and immunocompromised state. Neurological: Negative for dizziness, facial asymmetry and headaches. Hematological: Negative for adenopathy. Does not bruise/bleed easily. Psychiatric/Behavioral: Negative for agitation and behavioral problems. Objective BP 112/76 Pulse 105 Temp 36.8 C (98.3 F) (Tympanic) Resp 18 Wt 125.6 kg (276 lb 14.4 oz) LMP 12/31/2021 SpO2 98% BMI 54.08 kg/m Physical Exam Vitals and nursing note reviewed. Constitutional: General: She is not in acute distress. Appearance: Normal appearance. She is normal weight. She is not ill-appearing, toxic-appearing or diaphoretic. HENT: Head: Normocephalic and atraumatic. Right Ear: Ear canal and external ear normal. Left Ear: Ear canal and external ear normal. Nose: Nose normal. No congestion or rhinorrhea. Mouth/Throat: Mouth: Mucous membranes are moist. Pharynx: [...] sounds. No murmur heard. No friction rub. Pulmonary: Effort: Pulmonary effort is normal. No respiratory distress. Breath sounds: Normal breath sounds. No stridor. No wheezing, rhonchi or rales. Chest: Chest wall: No tenderness. Abdominal: General: Abdomen is flat. There is no distension. Palpations: Abdomen is soft. There is no mass. Tenderness: There is no abdominal tenderness. There is no right CVA tenderness, left CVA tenderness, guarding or rebound. Hernia: No hernia is present. Musculoskeletal: General: No swelling, tenderness, deformity or signs of injury. Normal range of motion. Cervical back: Normal range of motion and neck supple. No rigidity. Right lower leg: No edema. Left lower leg: No edema. Lymphadenopathy: Cervical: No cervical adenopathy. Skin: General: Skin is warm and dry. Capillary Refill: Capillary refill takes less than 2 seconds. Coloration: Skin is not jaundiced or pale. Findings: No bruising, erythema, lesion or rash. Neurological: General: No focal deficit present. Mental Status: She is alert and oriented to person, place, and time. Cranial Nerves: No cranial nerve deficit. Sensory: No sensory deficit. Motor: No weakness. Coordination: Coordination normal. Gait: Gait normal. Psychiatric: Mood and Affect: Mood normal. Behavior: Behavior normal. Thought Content: Thought content normal. Judgment: Judgment normal. {ASSESSMENT/PLAN: 1. Pharyngitis, unspecified etiology - ICD9: 462, ICD10: J02.9 - suspect viral - Group A strep molecular testing negative - Discussed supportive care treatment with fluids, rest and analgesia. - The patient may also use OTC cough and cold meds as needed, warm salt water gargles, throat lozenges and/or OTC throat spray as needed, and nasal saline gtts and suction prn. - Contagious dz precautions discussed- including considered contagious until on antibiotics for 24 hours - The patient should follow up in 3-5 days if symptoms persist or worsen - Call back if drooling, increased temperature, symptoms of dehydration and/or still sick in one week - STREP A MOLECULAR (POC) Rosaura Santacruz APRN.SAFETY COUNCIL DIRECTOR History and Record Review External record(s) reviewed: prior inpatient record and prior outpatient record. Differential Diagnoses - viral pharyngitis is more likely for the following reason(s): suggested by H&P and consistent with laboratory studies - strep is less likely for the following reason(s): laboratory studies not suggestive Disposition The patient was discharged. Procedures documented in this encounter [facility] 11-08-2024 Telephone encounter Note Reason for Call: symptomatic bradycardia Outcome: Go to the ED now Reason for Disposition Patient sounds very sick or weak to the triager Answer Assessment - Initial Assessment Questions 1. DESCRIPTION: Diarrhea x 24 hours stopped around 1400. Pt staes she noticed that he b/p was elevated , she took 25 mg of atenolol blood pressure is normal now but HR is fluctuating. 2. ONSET:1800 pt states she felt light headed and took atenolol at 2030 . Pt states around 2300 she noticed her heart rate going down and felt palpitations 3. DURATION: symptoms are the same throughout palpitations are worse when she lays down 4. PATTERN intermittent 5. HEART RATE: 40-55 bpm 6. RECURRENT SYMPTOM: low pulse while on digoxin but no issues since discontinuing that medication 7. CAUSE:unsure 8. CARDIAC HISTORY: POTS 9. OTHER SYMPTOMS:intermittent palpitations , dizziness 10. : denies Protocols used: Heart Rate and Heartbeat [id number] [facility] 11-08-2024 Miscellaneous Notes Reason for Call: symptomatic bradycardia Outcome: Go to the ED now Reason for Disposition Patient sounds very sick or weak to the triager Answer Assessment - Initial Assessment Questions 1. DESCRIPTION: Diarrhea x 24 hours stopped around 1400. Pt staes she noticed that he b/p was elevated , she took 25 mg of atenolol blood pressure is normal now but HR is fluctuating. 2. ONSET:1800 pt states she felt light headed and took atenolol at 2030 . Pt states around 2300 she noticed her heart rate going down and felt palpitations 3. DURATION: symptoms are the same throughout palpitations are worse when she lays down 4. PATTERN intermittent 5. HEART RATE: 40-55 bpm 6. RECURRENT SYMPTOM: low pulse while on digoxin but no issues since discontinuing that medication 7. CAUSE:unsure 8. CARDIAC HISTORY: POTS 9. OTHER SYMPTOMS:intermittent palpitations , dizziness 10. : denies Protocols used: Heart Rate and Heartbeat [id number] documented in this encounter [facility] 11-08-2024 Note [facility] 10-31-2024 Note [facility] 10-31-2024 History of Present illness Narrative Images from the original note were not included. Subjective HPI Nontoxic-appearing 34-year-old female presents urgent care chief complaint finger laceration. Patient states was cutting herbs with a kitchen knife at home when she cut her middle finger left hand. [id number]. States thoroughly wash hand with soap and water at home irrigated for about 5 minutes. States bleeding has not stopped presents today for evaluation. Overall feels well. No numbness or tingling no weakness. No surgeries fractures previously. Past medical history prescription medications allergies reviewed. Is not . .Patient presents with: Laceration: Left middle finger laceration x 1 hour PAST MEDICAL HISTORY Diagnosis Date Anxiety Melbashannanamarilis Constantino Asthmatic bronchitis recurrent episodes since pneumonia fall and winter Depression Angeli Christiansonger Epigastric abdominal pain Fibromyalgia Dr. Terrazas Inflammatory polyarthritis (HCC) Joint pain Wood Buffer- Dr. Kelly @[facility] Migraine with aura visual aura; diagnosed with [...] arrhythmia Snoring Suicide attempt by acetaminophen overdose ([facility]) 06/2014 Syncope Vomiting PAST SURGICAL HISTORY Procedure Laterality Date COLONOSCOPY 05/15/2011 COLONOSCOPY FLX DX W/COLLJ SPEC WHEN PFRMD 07/03/2014 EGD TRANSORAL BIOPSY SINGLE/MULTIPLE 07/03/2014 MIRENA IUD 12/04/2021 Placed in office- Due for removal 11/2028 ALLERGIES Latex, Natural Rubber; Banana; Latex; and Seasonal Allergies MEDICATIONS naratriptan (AMERGE) 2.5 mg tablet Take 1 tablet by mouth as needed for migraine headache (see administration instructions). 2.5 mg at onset of headache, may repeat in 4 hours if needed EPINEPHrine (EPIPEN 2-ISIDRO) 0.3 mg/0.3 mL auto-injector Inject 0.3 mL intramuscularly as needed. For allergic reaction.Seek emergent medical care immediately after use.Disp:1 2-pakw/customer service trainer predniSONE (DELTASONE) 10 mg tablet Take 4 tabs daily for 3 days, then 2 tabs daily for 3 days, then 1 tab daily for 3 days with food. albuterol HFA (PROAIR HFA) 90 mcg/actuation inhaler Inhale 2 Puffs as instructed every 4 hours as needed. hydrOXYzine HCl (ATARAX) 50 mg tablet Take 1 tablet by mouth three times a day as needed for anxiety. colchicine 0.6 mg tablet Take 1 tablet by mouth two times a day. pantoprazole DR (PROTONIX) 40 mg tablet Take 1 tablet by mouth daily before breakfast. Take on empty stomach, 1/2 hr before meal. WALKER ROLLATOR SEAT WITH 6 WHEELS - [...] Take 1 tablet by mouth once daily. baclofen 10 mg tablet Take [...] 2 Sprays in the nose once daily. benzonatate (TESSALON PERLE) 100 mg capsule Take 1 capsule by mouth three times a day as needed for cough. (Patient not taking: Reported on 10/31/2024) FAMILY HISTORY Problem Relation Age of Onset [...] use: Yes Comment: occiasionally Drug use: No BP 122/80 Pulse 99 Temp 37.4 C (99.3 F) (Tympanic) Resp 18 Wt 125 kg (275 lb 9.2 oz) LMP 12/31/2021 SpO2 98% BMI 53.82 kg/m Review of Systems Constitutional: Negative for chills, fever and malaise/fatigue. Musculoskeletal: Negative for back pain, falls, joint pain, myalgias and neck pain. 1 cm C-shaped laceration left hand third digit Neurological: Negative for dizziness, loss of consciousness, weakness and headaches. Objective Physical Exam Constitutional: General: She is not in acute distress. Appearance: She is not toxic-appearing. HENT: Head: Normocephalic. Nose: Nose normal. Eyes: Pupils: Pupils are equal, round, and reactive to light. Cardiovascular: Rate and Rhythm: Normal rate. Pulmonary: Effort: Pulmonary effort is normal. No respiratory distress. Musculoskeletal: Hands: Cervical back: Normal range of motion. Comments: Approximated 1 cm C-shaped laceration noted highlighted area. No weakness on examination. Full strength. No numbness or tingling. No decrease sensation. No joint ligament or bone involvement noted. Skin: General: Skin is warm and dry. Neurological: General: No focal deficit present. Mental Status: She is alert. Verbal consent obtained. Area was cleansed. 1-1/2 cc lidocaine used for digital block. 2% without epi. Wound investigated bloodless field. No bony structures or ligament tendon noted. No foreign bodies. 3 sutures 4-0 nylon used to close wound. Hemostasis achieved. Dressing applied. ASSESSMENT/PLAN: 1. Laceration of left hand without foreign body, initial encounter - ICD9: 882.0, ICD10: S61.412A Sutures placed. Dressing applied. Hemostasis achieved. Remove sutures in 7 to 10 days. Red flags reevaluation discussed. Tetanus updated. Patient was educated on supportive therapies. Patient will follow up with primary care provider as needed. Patient was instructed to immediately proceed to emergency room for any new, worsening, or symptoms lasting longer than anticipated. The patient's clinical presentation is otherwise unremarkable at this time. Based on exam and clinical finding, the patient is stable for discharge. Plan of care was discussed with patient. Patient verbalizes understanding and agrees to plan of care. This note was generated using [employer] software. It may contain errors in wording, punctuation, or spelling. Nicholas Dorantes APRN.LIZZIE documented in this encounter [facility] 10-29-2024 Telephone encounter Note Called patient to discuss symptoms. Patient is experiencing chest pain when breathing which has been getting progressively better, fever, mouth sores, fatigue, joint swelling, and nodules on joints. Patient was most concerned about nodules/bumps on joints because this is the newest symptom. Patient believes chest pain is same pleurisy she typically experiences with flares. RN advised patient to go to ER if symptoms worsen, or if pain starts radiating down arm or up jaw, is accompanied by indigestion, shortness of breath, etc. Patient is okay with a response over MyChart. [facility] 10-29-2024 Miscellaneous Notes Called patient to discuss symptoms. Patient is experiencing chest pain when breathing which has been getting progressively better, fever, mouth sores, fatigue, joint swelling, and nodules on joints. Patient was most concerned about nodules/bumps on joints because this is the newest symptom. Patient believes chest pain is same pleurisy she typically experiences with flares. RN advised patient to go to ER if symptoms worsen, or if pain starts radiating down arm or up jaw, is accompanied by indigestion, shortness of breath, etc. Patient is okay with a response over MyChart. Patient has been identified by name and date of : Yes . Patient calling for :general concern. Patient called stated she's been having a fever mouth sores joint swelling/bumps and fatigue for about a week. Patient stated she has also been having chest pains when breathing Pharmacy has been updated: Yes . [facility] Return call needed: Patient is expecting a call back. Can be reached at phone number listed below.. Patient can be reached at :[phone] documented in this encounter [facility] 10-29-2024 Telephone encounter Note Patient has been identified by name and date of : Yes . Patient calling for :general concern. Patient called stated she's been having a fever mouth sores joint swelling/bumps and fatigue for about a week. Patient stated she has also been having chest pains when breathing Pharmacy has been updated: Yes . [facility] Return call needed: Patient is expecting a call back. Can be reached at phone number listed below.. Patient can be reached at :[phone] [facility] 10-26-2024 Telephone encounter Note Prescription Refill Information The patient has been identified by name and date of : Yes Caregiver verified no other encounters exist for this prescription request: Yes Caregiver confirmed with patient/requestor that no other refills are due, in the near future, with this provider at this time: Yes The last office visit in the department: 10/16/24 Does the patient have a future office visit with this provider/department: Yes 11/20/24 Requested Prescriptions Pending Prescriptions Disp Refills naratriptan (AMERGE) 2.5 mg tablet 9 tablet 11 Sig: Take 1 tablet by mouth as needed for migraine headache (see administration instructions). 2.5 mg at onset of headache, may repeat in 4 hours if needed Ovi Jenkins LPN October 26, 2024 10:03 AM [facility] 10-26-2024 Miscellaneous Notes Prescription Refill Information The patient has been identified by name and date of : Yes Caregiver verified no other encounters exist for this prescription request: Yes Caregiver confirmed with patient/requestor that no other refills are due, in the near future, with this provider at this time: Yes The last office visit in the department: 10/16/24 Does the patient have a future office visit with this provider/department: Yes 11/20/24 Requested Prescriptions Pending Prescriptions Disp Refills naratriptan (AMERGE) 2.5 mg tablet 9 tablet 11 Sig: Take 1 tablet by mouth as needed for migraine headache (see administration instructions). 2.5 mg at onset of headache, may repeat in 4 hours if needed Ovi Jenkins LPN October 26, 2024 10:03 AM documented in this encounter [facility] 10-24-2024 History of Present illness Narrative Radiology Service Progress Note PATIENT NAME: Liliam Thompson DATE OF SERVICE: October 24, 2024 TIME: 11:55 AM PATIENT IDENTITY VERIFICATION COMPLETED USING TWO (2) IDENTIFIERS: Name and Date of confirmed by patient verbally. FALL SCREENING: Has the patient had 2 falls in the last year or 1 fall with injury or currently using an Ambulatory Assistive Device (Walker, Cane, Wheelchair, Crutches, etc.)? No PATIENT GENDER DATA: Assigned female at . status: : No status: NO. PATIENT RELEVANT IMPLANT DATA REVIEWED: Not Applicable PATIENT PRESENTS WITH AN IMPLANTABLE OR ATTACHED AGRICULTURAL PRODUCE SORTER: No RADIOLOGY DEPARTMENT: General X-ray: Exam(s) Completed: Upper Extremity X-Ray(s): Wrist, left PERIPHERAL IV DATA: Not applicable SIGNED BY: RT Sharyn(R) October 24, 2024 11:55 AM documented in this encounter [facility] 10-24-2024 Note [facility] 10-24-2024 Note [facility] 10-24-2024 History of Present illness Narrative Images from the original note were not included. [facility] Subjective Liliam Thompson is a 34 year old female. HPI Liliam Thompson is a 34 year old female who presents today for CC of hurt left wrist 2 weeks ago in shower. Has tried otc medication for relief. Symptoms are worsened by rom. Denies numbness/tingling of left wrist. Denies possibility of being . .Patient presents with: left wrist pain: X 2 weeks-injured it in the [facility] PAST MEDICAL HISTORY Diagnosis Date Anxiety Angeli Constantino Asthmatic bronchitis recurrent episodes since pneumonia fall and winter Depression Angeli Constantino Epigastric abdominal pain Fibromyalgia Dr. Terrazas Inflammatory polyarthritis ([facility]) Joint pain Wood Buffer- Dr. Kelly @[facility] Migraine with aura visual aura; diagnosed with [...] arrhythmia Snoring Suicide attempt by acetaminophen overdose ([facility]) 06/2014 Syncope Vomiting PAST SURGICAL HISTORY Procedure Laterality Date COLONOSCOPY 05/15/2011 COLONOSCOPY FLX DX W/COLLJ SPEC WHEN PFRMD 07/03/2014 EGD TRANSORAL BIOPSY SINGLE/MULTIPLE 07/03/2014 MIRENA IUD 12/04/2021 Placed in office- Due for removal 11/2028 ALLERGIES Latex, Natural Rubber; Banana; Latex; and Seasonal Allergies MEDICATIONS albuterol HFA (PROAIR HFA) 90 mcg/actuation inhaler Inhale 2 Puffs as instructed every 4 hours as needed. hydrOXYzine HCl (ATARAX) 50 mg tablet Take 1 tablet by mouth three times a day as needed for anxiety. colchicine 0.6 mg tablet Take 1 tablet by mouth two times a day. WALKER ROLLATOR SEAT WITH 6 WHEELS - [...] reaction.Seek emergent medical care immediately after use.Disp:1 2-pakw/customer service trainer naratriptan (AMERGE) 2.5 mg tablet Take 1 tablet (2.5 mg) by mouth as needed for migraine headache (see administration instructions). 2.5 mg at onset of headache, may repeat in 4 hours if needed baclofen 10 mg tablet Take 1 [...] 2 Sprays in the nose once daily. benzonatate (TESSALON PERLE) 100 mg capsule Take 1 capsule by mouth three times a day as needed for cough. (Patient not taking: Reported on 10/16/2024) predniSONE (DELTASONE) 10 mg tablet Take 4 tabs daily for 3 days, then 2 tabs daily for 3 days, then 1 tab daily for 3 days with food. (Patient not taking: Reported on 10/16/2024) pantoprazole DR (PROTONIX) 40 mg tablet Take 1 tablet by mouth daily before breakfast. Take on empty stomach, 1/2 hr before meal. (Patient not taking: Reported on 09/25/2024) FAMILY HISTORY Problem Relation Age of Onset [...] use: Yes Comment: occiasionally Drug use: No Patient presents with: left wrist pain: X 2 weeks-injured it in the [facility] Review of Systems Objective BP 130/80 Pulse 99 Temp 36.6 C (97.9 F) (Tympanic) Resp 16 Wt 124.8 kg (275 lb 2.2 oz) LMP 12/31/2021 SpO2 99% BMI 53.73 kg/m Physical Exam Constitutional: General: She is not in acute distress. Appearance: She is not toxic-appearing or diaphoretic. HENT: Head: Normocephalic and atraumatic. Pulmonary: Effort: Pulmonary effort is normal. No accessory muscle usage or respiratory distress. Musculoskeletal: Hands: Neurological: Mental Status: She is alert and oriented to person, place, and time. ASSESSMENT/PLAN: 1. Injury of left wrist, initial encounter - ICD9: 959.3, ICD10: S69.92XA -no bony abnormality noted on xray -Rest, Ice, Compression, Elevation discussed -discussed use of ibuprofen -follow up with primary care if symptoms persist/worsen in 10-14 days - XR WRIST GENERAL 3V PA/LAT/OBL LEFT IMPRESSION: No radiographic evidence of acute osseous injury Dictated by : MD Steven TURNER APRN.SAFETY COUNCIL DIRECTOR MDM Procedures documented in this encounter [facility] 10-16-2024 Note [facility] 10-16-2024 History of Present illness Narrative This note was created using [email or web address]. Subjective Liliam Thompson is a 34 year old female. Patient presents with: Same Day Appointment: severe fatigue and weak, muscle pains and joint pain since Tuesday 5 days SUBJECTIVE: Liliam Thompson is a 34 year old year old lady here today for same day appointment for review of medical conditions. Bina Thompson is a 34-year-old female with a history of arthritis, presenting for evaluation of fatigue and weakness. Bina reports a sudden onset of fatigue and weakness since Tuesday, describing the weakness as debilitating and different from her usual fatigue. She denies symptoms suggestive of an infection, such as fever, chills, or myalgias, and does not feel like she is coming down with anything. She has experienced arthralgias but notes that she has not had a fever, which she typically associates with an arthritis flare. She has had COVID-19 twice in the past, both times with high fevers. She denies any recent changes in medication, except for a brief trial of Anafranil about a month ago, which she discontinued after a few days due to side effects. She has not had any recent lab work done and is behind on her scheduled labs. Bina has a history of fluctuating TSH levels, with two instances of elevated TSH that later normalized. She denies having Lynn's antibodies. Her most recent TSH was checked in October of last year and was in the 2 range. She also has a history of low vitamin D levels, with the most recent level checked in February being really low. She is currently taking vitamin D 50,000 IU twice a month but admits to not taking it consistently. She denies any side effects from the vitamin D supplementation. She has had B12 levels checked once, which were on the low end of normal at 399. She denies any new rashes or symptoms suggestive of an acute illness. She has had persistent congestion for the past 2 months but does not associate it with her current symptoms. PAST MEDICAL HISTORY Diagnosis Date Anxiety Angeli Constantino Asthmatic bronchitis recurrent episodes since pneumonia fall and winter Depression Angeli Constantino Epigastric abdominal pain Fibromyalgia Dr. Terrazas Inflammatory polyarthritis ([facility]) Joint pain Wood Buffer- Dr. Kelly @[facility] Migraine with aura visual aura; diagnosed with [...] arrhythmia Snoring Suicide attempt by acetaminophen overdose ([facility]) 06/2014 Syncope Vomiting Current Outpatient Medications Medication Sig albuterol HFA (PROAIR HFA) 90 mcg/actuation inhaler Inhale 2 Puffs as instructed every 4 hours as needed. hydrOXYzine HCl (ATARAX) 50 mg tablet Take 1 tablet by mouth three times a day as needed for anxiety. colchicine 0.6 mg tablet Take 1 tablet by mouth two times a day. WALKER ROLLATOR SEAT WITH 6 WHEELS - [...] reaction.Seek emergent medical care immediately after use.Disp:1 2-pakw/customer service trainer naratriptan (AMERGE) 2.5 mg tablet Take 1 tablet (2.5 mg) by mouth as needed for migraine headache (see administration instructions). 2.5 mg at onset of headache, may repeat in 4 hours if needed baclofen 10 mg tablet Take 1 [...] 2 Sprays in the nose once daily. benzonatate (TESSALON PERLE) 100 mg capsule Take 1 capsule by mouth three times a day as needed for cough. (Patient not taking: Reported on 10/16/2024) predniSONE (DELTASONE) 10 mg tablet Take 4 tabs daily for 3 days, then 2 tabs daily for 3 days, then 1 tab daily for 3 days with food. (Patient not taking: Reported on 10/16/2024) pantoprazole DR (PROTONIX) 40 mg tablet Take 1 tablet by mouth daily before breakfast. Take on empty stomach, 1/2 hr before meal. (Patient not taking: Reported on 09/25/2024) No current facility-administered medications for this visit. Review of Systems Objective BP 136/70 (BP Site: Left Arm, BP Position: Sitting, BP Cuff Size: Large Adult) Pulse 102 Temp 36.6 C (97.9 F) (Temporal) Resp 14 Ht 152.4 cm (5') Wt 123.3 kg (271 lb 13.2 oz) LMP 12/31/2021 SpO2 98% BMI 53.09 kg/m Physical Exam Constitutional: Appearance: Normal appearance. [...] normal. Judgment: Judgment normal. Assessment and Plan # Vitamin D deficiency (E55.9) - History of low vitamin D levels, with the most recent level being significantly low in February. - Currently taking 50,000 IU of vitamin D twice a month. - Ordered vitamin D level to assess current status. - Discussed the importance of consistent vitamin D supplementation to prevent musculoskeletal symptoms and potential bone demineralization. - Advised considering a daily [id number] vitamin D supplement of 5,000 IU for better compliance. # Other fatigue (R53.83) # Myalgias (M79.10) # Muscle weakness (generalized) (M62.81) - Onset of severe fatigue and generalized muscle weakness since Tuesday, with associated myalgias. - No recent changes in medication regimen; previously trialed Anafranil for a few days one month ago, but discontinued due to side effects. - No signs of acute infection or illness; no fever, chills, or body aches typical of viral infections. - Ordered comprehensive metabolic panel (CMP), complete blood count (CBC), thyroid function tests (TSH, T3, T4), C-reactive protein (CRP), erythrocyte sedimentation rate (ESR), and methylmalonic acid to evaluate potential underlying causes. - Patient to monitor for any new symptoms or changes and report back if necessary. # Polyarthritis (M13.0) - History of polyarthritis with recent exacerbation of joint pain and swelling, particularly in the left hand. - Ordered ESR and CRP to assess current inflammatory status. - Patient to continue current management and follow-up with rheumatology as scheduled. # Abnormal TSH (R79.89) - History of fluctuating TSH levels, with previous episodes of elevated TSH without Lynn's antibodies. - Last TSH level in October was within normal range. - Ordered repeat thyroid function tests (TSH, T3, T4) to evaluate current thyroid status. - Discussed potential causes of non-Lynn's hypothyroidism and the importance of regular monitoring. Faustina Carcamo MD documented in this encounter [facility] 10-16-2024 Note [facility] 09-25-2024 Note SARS-COV-2 (AGENT OF COVID-19) RNA: Not detected INFLUENZA A RNA: Not detected INFLUENZA B RNA: Not detected RESPIRATORY SYNCYTIAL VIRUS (RSV) RNA: Not detected [facility] Comment on above: Performed By: #### [id number] ####[facility] LABCLIA [id number] [address] OF [facility] 09-25-2024 History of Present illness Narrative Radiology Service Progress Note PATIENT NAME: Liliam Thompson DATE OF SERVICE: September 25, 2024 TIME: 9:20 AM PATIENT IDENTITY VERIFICATION COMPLETED USING TWO (2) IDENTIFIERS: Name and Date of confirmed by patient verbally. FALL SCREENING: Has the patient had 2 falls in the last year or 1 fall with injury or currently using an Ambulatory Assistive Device (Walker, Cane, Wheelchair, Crutches, etc.)? No PATIENT GENDER DATA: Assigned female at . status: : No status: NO. PATIENT RELEVANT IMPLANT DATA REVIEWED: Not Applicable PATIENT PRESENTS WITH AN IMPLANTABLE OR ATTACHED AGRICULTURAL PRODUCE SORTER: No RADIOLOGY DEPARTMENT: General X-ray: Exam(s) Completed: Chest X-Ray PERIPHERAL IV DATA: Not applicable SIGNED BY: Saima Daly September 25, 2024 9:20 AM documented in this encounter [facility] 09-25-2024 Note [facility] 09-25-2024 Note [facility] 09-25-2024 History of Present illness Narrative This note was created using [employer]. Subjective Liliam Thompson is a 33 year old female. 33 year old female with PMH reactive airway, POTS, MAXWELL presents for illness Acute onset Nasal congestion x 2 weeks +cough -5 days cough Worsening last night Denies that cough is productive +SOB with coughing +chest tightness +low grade fever last night +nausea +diarrhea Denies tobacco usage Has used Advil, Sudafed and OTC LMP-IUD States cough is worsening The history is provided by the patient. No language path was used. Cough This is a new problem. The current episode started more than 2 days ago. The problem occurs constantly. The problem has been gradually worsening. The cough is Non-productive. The maximum temperature recorded prior to her arrival was 100 to 100.9 F. Associated symptoms include chills, rhinorrhea and shortness of breath. Pertinent negatives include no chest pain, no sweats, no weight loss, no ear congestion, no ear pain, no headaches, no sore throat, no myalgias, no wheezing and no eye redness. Treatments tried: Advil, Sudafed,and OTC medicines. The treatment provided no relief. She is not a smoker. Her past medical history does not include bronchitis, pneumonia, bronchiectasis, COPD, emphysema or asthma. PAST MEDICAL HISTORY Diagnosis Date Anxiety Angeli Constantino Asthmatic bronchitis recurrent episodes since pneumonia fall and winter of 2011 Depression Angeli Constantino Epigastric abdominal pain Fibromyalgia Dr. Terrazas Inflammatory polyarthritis ([facility]) Joint pain Wood Buffer- Dr. Kelly @[facility] Migraine with aura visual aura; diagnosed with [...] for removal 11/2028 ALLERGIES Latex, Natural Rubber; Banana; Latex; and Seasonal Allergies MEDICATIONS albuterol HFA (PROAIR HFA) 90 mcg/actuation inhaler Inhale 2 Puffs as instructed every 4 hours as needed. hydrOXYzine HCl (ATARAX) 50 mg tablet Take 1 tablet by mouth three times a day as needed for anxiety. colchicine 0.6 mg tablet Take 1 tablet by mouth two times a day. Syringe with Needle, Disp, 3 mL 18 [...] 1 tablet by mouth daily with breakfast. EPINEPHrine (EPIPEN 2-ISIDRO) 0.3 mg/0.3 mL auto-injector Inject 0.3 mL intramuscularly as needed. For allergic reaction.Seek emergent medical care immediately after use.Disp:1 2-pakw/customer service trainer naratriptan (AMERGE) 2.5 mg tablet Take 1 tablet (2.5 mg) by mouth as needed for migraine headache (see administration instructions). 2.5 mg at onset of headache, may repeat in 4 hours if needed baclofen 10 mg tablet Take 1 [...] 2 Sprays in the nose once daily. (Patient taking differently: Use 2 Sprays in the nose as needed (nasal congestion).) benzonatate (TESSALON PERLE) 100 mg capsule Take 1 capsule by mouth three times a day as needed for cough. predniSONE (DELTASONE) 10 mg tablet Take 4 tabs daily for 3 days, then 2 tabs daily for 3 days, then 1 tab daily for 3 [address] food. pantop[address] (PROTONIX) 40 mg tablet Take 1 tablet by mouth daily before breakfast. Take on empty stomach, 1/2 hr before meal. (Patient not taking: Reported on 09/25/2024) WALKER ROLLATOR SEAT WITH 6 WHEELS - RED Adjustable. Use as directed for gait instability Norethindrone, Contraceptive, 0.35 mg tablet Take 1 tablet by mouth once daily. FAMILY HISTORY Problem Relation Age of Onset [...] Drug use: No Review of Systems Constitutional: Positive for appetite change, chills, fatigue and fever. Negative for weight loss. HENT: Positive for congestion and rhinorrhea. Negative for ear pain, sinus pressure, sinus pain and sore throat. Eyes: Negative for discharge, redness and itching. Respiratory: Positive for shortness of breath. Negative for apnea, chest tightness and wheezing. Cardiovascular: Negative for chest pain. Gastrointestinal: Negative for abdominal pain, diarrhea, nausea and vomiting. Musculoskeletal: Negative for arthralgias, back pain and myalgias. Skin: Negative for color change, pallor and rash. Allergic/Immunologic: Positive for environmental allergies and food allergies. Neurological: Negative for dizziness, facial asymmetry, light-headedness, numbness and headaches. Hematological: Negative for adenopathy. Does not bruise/bleed easily. Psychiatric/Behavioral: Negative for agitation and behavioral problems. Objective BP 137/100 Pulse (!) 125 Temp 36.9 C (98.5 F) Resp 20 Wt 124 kg (273 lb 5.9 oz) LMP 12/31/2021 SpO2 96% BMI 53.39 kg/m Physical Exam Vitals and nursing note reviewed. Constitutional: General: She is not in acute distress. Appearance: Normal appearance. She is normal weight. She is not ill-appearing, toxic-appearing or diaphoretic. HENT: Head: Normocephalic and atraumatic. Right Ear: Ear canal and external ear normal. Left Ear: Ear canal and external ear normal. Nose: Congestion present. No rhinorrhea. Mouth/Throat: Mouth: Mucous membranes are moist. Pharynx: [...] sounds. No murmur heard. No friction rub. Pulmonary: Effort: Pulmonary effort is normal. No respiratory distress. Breath sounds: Normal breath sounds. No stridor. No wheezing, rhonchi or rales. Chest: Chest wall: No tenderness. Abdominal: General: Abdomen is flat. There is no distension. Palpations: Abdomen is soft. There is no mass. Tenderness: There is no abdominal tenderness. There is no right CVA tenderness, left CVA tenderness, guarding or rebound. Hernia: No hernia is present. Musculoskeletal: General: No swelling, tenderness, deformity or signs of injury. Normal range of motion. Cervical back: Normal range of motion and neck supple. No rigidity. Right lower leg: No edema. Left lower leg: No edema. Lymphadenopathy: Cervical: Cervical adenopathy present. Skin: General: Skin is warm and dry. Coloration: Skin is not jaundiced or pale. Findings: No bruising, erythema, lesion or rash. Neurological: General: No focal deficit present. Mental Status: She is alert and oriented to person, place, and time. Cranial Nerves: No cranial nerve deficit. Sensory: No sensory deficit. Motor: No weakness. Coordination: Coordination normal. Gait: Gait normal. Psychiatric: Mood and Affect: Mood normal. Behavior: Behavior normal. Thought Content: Thought content normal. Judgment: Judgment normal. Assessment and Plan ASSESSMENT/PLAN: 1. URI, acute - ICD9: 465.9, ICD10: J06.9 (primary diagnosis) X 5 days - Discussed viral etiology and rationale for treatment. - Symptomatic treatment with prn analgesia - Supportive care with fluids and rest - The patient may also use OTC cough and cold meds as needed, warm salt water gargles, throat lozenges and/or OTC throat spray as needed, and nasal saline gtts and suction prn. - Follow up in 3-5 days if symptoms persist or sooner if worsening of symptoms - XR CHEST 2V FRONTAL/LAT-obtained and pending 2. Acute cough - ICD9: 786.2, ICD10: R05.1 X 5 days Cough is worsening per patient Lungs CTA No red flags - XR CHEST 2V FRONTAL/LAT-negative - COVID & INFLUENZA A/B & RSV PCR, ROUTINE-obtained and pending Rosaura Santacruz APRN.SAFETY COUNCIL DIRECTOR documented in this encounter [facility] 09-13-2024 History of Present illness Narrative [facility] Refill Assessment Medication(s): Ilaris Patient's current medication list and adherence status [...] been reviewed prior to dispensing the medication. Depalletizer Operator Assessment Patient confirmed: Yes Med/dose confirmed: Yes Supplies needed: No supplies needed Missed doses: No Estimated days supply on hand: 0 Next cycle/dose due: 09/25/24 Copay amount: 0 Delivery method: FedEx Signature required: Waived on patient request Delivery address: [address], [place] [address] Delivery date: 09/19/24 Questions or concerns for the pharmacist?: No Did you have any side effects believed to be related to this medication, that resulted in hospitalization?: No Current Outpatient Medications on File Prior to Visit Medication Sig LORazepam (ATIVAN) 1 mg tablet Take 1 tablet by mouth once daily as needed for up to 7 days. albuterol HFA (PROAIR HFA) 90 mcg/actuation inhaler Inhale 2 Puffs as instructed every 4 hours as needed. hydrOXYzine HCl (ATARAX) 50 mg tablet Take 1 tablet by mouth three times a day as needed for anxiety. colchicine 0.6 mg tablet Take 1 tablet by mouth two times a day. pantoprazole DR (PROTONIX) 40 mg tablet Take 1 tablet by mouth daily before breakfast. Take on empty stomach, 1/2 hr before meal. WALKER ROLLATOR SEAT WITH 6 WHEELS - [...] reaction.Seek emergent medical care immediately after use.Disp:1 2-pakw/customer service trainer naratriptan (AMERGE) 2.5 mg tablet Take 1 tablet (2.5 mg) by mouth as needed for migraine headache (see administration instructions). 2.5 mg at onset of headache, may repeat in 4 hours if needed baclofen 10 mg tablet Take 1 [...] facility-administered medications on file prior to visit. [facility] CLINICAL ASSESSMENT - INFLAMMATORY CONDITIONS V6: Assessment to use: Refill Date of influenza vaccination reminder: 04/24/2024 Date of most recent vaccination assessment: 04/24/2024 Treatment Plan Information: Ilaris Inject 150mg (1 vial) subcutaneously every 4 weeks. Est. Tx Plan Start Date: No information available Estimated Start Date Info: Established on therapy Est. Estimated Treatment Duration: Until lack of efficacy Beena Tian documented in this encounter [facility] 09-13-2024 Note [facility] 09-11-2024 Note [facility] 09-11-2024 History of Present illness Narrative This Team Access Model visit is a virtual encounter. It required patient-provider interaction for the medical decision making as documented below. I have communicated my name and active licensure. The patient's identity and physical location were verified at the time of this visit. Either the patient or their legal representative personal service has been informed of the risks and benefits of -- and alternatives to -- treatment through a remote evaluation and consents to proceed with the evaluation remotely. Patient Location: [place] CC: Patient presents with: Anxiety HPI Liliam Thompson is a 33 year old female who is contacted today for a virtual visit. This is an established patient of Dr. Faustina Carcamo MD. She has a history of anxiety and panic attacks. She has hydroxyzine to take as needed which overall effective for calming panic attacks however she has a few appointments scheduled for dental extractions and is very concerned the Vistaril will not work well enough. She has taken Ativan in the past and it worked well, no side effects that she can recall. She REVIEW OF SYSTEMS See HPI PAST MEDICAL HISTORY Diagnosis Date Anxiety Angeli Constantino Asthmatic bronchitis recurrent episodes since pneumonia fall and winter Depression Angeli Constantino Epigastric abdominal pain Fibromyalgia Dr. Terrazas Inflammatory polyarthritis ([facility]) Joint pain Wood Buffer- Dr. Kelly @[facility] Migraine with aura visual aura; diagnosed with [...] for removal 11/2028 ALLERGIES Latex, Natural Rubber; Banana; Latex; and Seasonal Allergies MEDICATIONS albuterol HFA (PROAIR HFA) 90 mcg/actuation inhaler Inhale 2 Puffs as instructed every 4 hours as needed. hydrOXYzine HCl (ATARAX) 50 mg tablet Take 1 tablet by mouth three times a day as needed for anxiety. colchicine 0.6 mg tablet Take 1 tablet by mouth two times a day. pantoprazole DR (PROTONIX) 40 mg tablet Take 1 tablet by mouth daily before breakfast. Take on empty stomach, 1/2 hr before meal. WALKER ROLLATOR SEAT WITH 6 WHEELS - [...] reaction.Seek emergent medical care immediately after use.Disp:1 2-pakw/customer service trainer naratriptan (AMERGE) 2.5 mg tablet Take 1 tablet (2.5 mg) by mouth as needed for migraine headache (see administration instructions). 2.5 mg at onset of headache, may repeat in 4 hours if needed baclofen 10 mg tablet Take 1 [...] 2 Sprays in the nose once daily. FAMILY HISTORY Problem Relation Age of Onset [...] completed. GENERAL: alert and appropriate, in no distress and appears anxious ASSESSMENT/PLAN: 1. Situational anxiety - ICD9: 300.09, ICD10: F41.8 Patient needs stronger anxiolytic for upcoming dental appointments. - LORAZEPAM 1 MG TABLET daily as needed to be used sparingly as needed, advised patient no refills. Discussed potential for overdose, abuse and addiction; patient verbalized understanding. Prescription instructions reviewed with patient as applicable. Potential red flag symptoms discussed with the patient. Reviewed appropriate action plan to take if red flag symptoms occur. Patient agreeable to treatment plan. During this patient visit I have spent approximately 15 minutes in counseling regarding treatment options, medications, and coordinating care. Moon Beavers APRN.SAFETY COUNCIL DIRECTOR documented in this encounter [facility] 09-07-2024 Telephone encounter Note [facility]o' information and the phone numbers. Last read by Bina Thompson at 7:22 PM on 09/06/2024. [facility] 09-07-2024 Miscellaneous Notes Pt read the [employer] msg with Dr. Carcamo' information and the phone numbers. Last read by Bina Thompson at 7:22 PM on 09/06/2024. Called and left a detailed voicemail notifying patient of providers message. Clinic phone number was left for the patient to call back and answer providers questions. [facility]. Irene Currie, CASSANDRA My apologies--I did get a message back from Chiquita Montez--she cannot add more patients due to her filled panel size but said that can make referrals for other providers within [facility] system. Below is her note to me: Pantera Wilson, I am currently not able to accept new patients for general psychiatric diagnosis due to my panel size. You can continue to put the consult to psychiatry order and if the patients are willing to see a provider virtually, they can call [phone] and schedule an appointment with a provider in our department. If they are looking for in person and virtual options, you can put the consult and then have them Call [phone] to schedule an appointment with an [facility] provider. Hope that helps, Chiquita See if patient wants to start with seeing someone virtually by calling the number above or if wants to see someone in person and needs a referral to someone through [facility]. Pt calling in as she had a virtual visit with Dr. Carcamo on 08/20/24. Pt states Dr. Carcamo mentioned that she was going to message a psychology Nurse practitioner that used to come to [place] to possibly refer pt to. Pt has not heard anything back. Pt's OV note from 08/20 is not completed so unsure of Dr. Carcamo' plan. Will send msg to provider for instructions. Noted pt was to have a return visit in 6 months around 02/17/[address] Carcamo. Pt declined offered appts with fluorescent lamp replacer. States she prefers to stay with Dr. Carcamo. Last in person visit with Dr. Carcamo was 12/2023. Pt booked for in person appt on 03/18/[address] Carcamo. documented in this encounter [facility] 09-06-2024 Telephone encounter Note Called and left a detailed voicemail notifying patient of providers message. Clinic phone number was left for the patient to call back and answer providers questions. Sent information through to Pts MyChart as well. Irene Currie RN [facility] 09-06-2024 Telephone encounter Note My apologies--I did get a message back from Chiquita Montez--she cannot add more patients due to her filled panel size but said that can make referrals for other providers within [facility] system. Below is her note to me: Pantera Wilson, I am currently not able to accept new patients for general psychiatric diagnosis due to my panel size. You can continue to put the consult to psychiatry order and if the patients are willing to see a provider virtually, they can call [phone] and schedule an appointment with a provider in our department. If they are looking for in person and virtual options, you can put the consult and then have them Call [phone] to schedule an appointment with an [facility] provider. Hope that helps, Chiquita See if patient wants to start with seeing someone virtually by calling the number above or if wants to see someone in person and needs a referral to someone through [facility]. [facility] 09-06-2024 Instructions Faustina Carcamo MD - 09/06/2024 6:12 PM EST ,- Continue taking your current medications as prescribed. - Start taking Hydroxyzine 50 mg tablets, up to three times daily as needed for anxiety; prescription sent to [facility] in [place]. - Practice deep breathing exercises: inhale for 4 seconds, exhale for 8 seconds to help manage heart symptoms. - Stay hydrated and maintain electrolyte balance to support heart health. - Complete lab tests ordered by your fireworks maker, including liver enzymes, CO2 protein, blood count, sed rate, creatinine, blood urea nitrogen, and vitamin D. - Follow up with a eyeglass fitter if heart symptoms become bothersome. - Next appointment scheduled in 6 months; you will be contacted with the date and time. documented in this encounter [facility] 09-06-2024 Telephone encounter Note Pt calling in as she had a virtual visit with Dr. Carcamo on 08/20/[address]. [address] Carcamo mentioned that she was going to message a psychology Nurse practitioner that used to come to [place] to possibly refer pt to. Pt has not heard anything back. Pt's OV note from 08/20 is not completed so unsure of Dr. Carcamo' plan. Will send msg to provider for instructions. Noted pt was to have a return visit in 6 months around 02/17/[address] Carcamo. Pt declined offered appts with fluorescent lamp replacer. States she prefers to stay with Dr. Carcamo. Last in person visit with Dr. Carcamo was 12/2023. Pt booked for in person appt on 03/18/[address] Talampas. [facility] 08-27-2024 Telephone encounter Note Prescription Refill Information The patient has been identified by name and date of : Yes Caregiver verified no other encounters exist for this prescription request: Yes Caregiver confirmed with patient/requestor that no other refills are due, in the near future, with this provider at this time: Yes The last office visit in the department: 08/20/24 Does the patient have a future office visit with this provider/department: No Requested Prescriptions Pending Prescriptions Disp Refills albuterol HFA (PROAIR HFA) 90 mcg/actuation inhaler 18 g 1 Sig: Inhale 2 Puffs as instructed every 4 hours as needed. Ovi Jenkins LPN August 27, 2024 2:31 PM [facility] 08-27-2024 Miscellaneous Notes Prescription Refill Information The patient has been identified by name and date of : Yes Caregiver verified no other encounters exist for this prescription request: Yes Caregiver confirmed with patient/requestor that no other refills are due, in the near future, with this provider at this time: Yes The last office visit in the department: 08/20/24 Does the patient have a future office visit with this provider/department: No Requested Prescriptions Pending Prescriptions Disp Refills albuterol HFA (PROAIR HFA) 90 mcg/actuation inhaler 18 g 1 Sig: Inhale 2 Puffs as instructed every 4 hours as needed. Ovi Jenkins LPN August 27, 2024 2:31 PM documented in this encounter [facility] 08-20-2024 Note [facility] 08-20-2024 History of Present illness Narrative VIRTUAL VISIT PROGRESS NOTE This is a virtual visit using [employer] Zoom Video Visit. It required patient-provider interaction for the medical decision making as documented below. I have communicated my name and active licensure. The patient's identity and physical location were verified at the time of this visit. Either the patient or their legal representative personal service has been informed of the risks and benefits of -- and alternatives to -- treatment through a remote evaluation and consents to proceed with the evaluation remotely. Liliam Thompson is a 33 year old female seen for follow up. Liliam Thompson is a 33-year-old female with a history of POTS, OCD, panic disorder with agoraphobia, and pleurisy, presenting for follow-up. Liliam reports that her eyeglass fitter, Dr. Zambrano, has retired, and she is inquiring about whether she should follow up with another eyeglass fitter. She mentions that she met with his SPRAY I PAINTER after his departure, but the follow-up was canceled. She recalls a note from the SPRAY I PAINTER stating that her 30-day event monitor showed that her heart did not appear to rest between beats and was advised to practice deep breathing exercises. Liliam is currently using propranolol, mostly in the evening as needed, and reports feeling content and stable at this time. She notes a seasonality to her symptoms and denies any changes in her medications. Liliam also reports experiencing chest pain, which her fireworks maker attributes to pleurisy, noting that it worsens during flares. She recalls an episode of chest pain during a dental procedure, which she attributes to a reaction to epinephrine. Additionally, Liliam reports worsening OCD and panic attacks with agoraphobia. She has two therapists but believes her medications need adjustment. She recently started outpatient eating disorder therapy, which she thinks may have triggered her symptoms. She is seeking assistance with medication management. HISTORY REVIEWED (electronic chart updated): PAST MEDICAL HISTORY Diagnosis Date Anxiety Angeli Constantino Asthmatic bronchitis recurrent episodes since pneumonia fall and winter of 2011 Depression Angeli Constantino Epigastric abdominal pain Fibromyalgia Dr. Terrazas Inflammatory polyarthritis (HCC) Joint pain Wood Buffer- Dr. Kelly @[facility] Migraine with aura visual aura; diagnosed with [...] 1 tablet by mouth two times a day. pantoprazole DR (PROTONIX) 40 mg tablet Take 1 tablet by mouth daily before breakfast. Take on empty stomach, 1/2 hr before meal. WALKER ROLLATOR SEAT WITH 6 WHEELS - [...] reaction.Seek emergent medical care immediately after use.Disp:1 2-pakw/customer service trainer naratriptan (AMERGE) 2.5 mg tablet Take [...] is grossly normal RESPIRATORY: breathing non-labored ASSESSMENT and PLAN: # PVC (premature ventricular contraction) (I49.3) - Reviewed 30-day event monitor results from August 06; heart rate ranged from 49 to 169 bpm, averaging 85 bpm. No abnormal rhythms such as V-tach, pauses, blocks, or AFib were noted. Rare episodes of supraventricular ectopy (<1%) were observed. - Discussed that the extra beats (PVCs) are not concerning at this frequency and do not require additional medication at this time. - Advised on maintaining adequate hydration and electrolyte balance. - Educated on deep breathing exercises (in for 4 seconds, out for 8 seconds) to help settle the parasympathetic nervous system. - Patient understands and agrees with the plan. # Panic attacks (F41.0) # Panic disorder with agoraphobia (F40.01) # PTSD (post-traumatic stress disorder) (F43.10) - Symptoms have worsened; patient reports increased frequency of panic attacks. - Prescribed hydroxyzine 50 mg tablets, to be taken up to three times daily as needed for anxiety. - Sent a note to Chiquita Erazo NP, to inquire about availability for virtual visits for medication management. - Patient has two therapists and is engaged in outpatient eating disorder therapy. - Follow-up in one week to check on progress and response to hydroxyzine. # Postural orthostatic tachycardia syndrome (POTS) (G90.A) - Condition is stable; no changes in medication regimen. - Continue current management with propranolol as needed. - Patient understands and agrees with the plan. # Pleurisy (R09.1) - Symptoms correlate with rheumatologic flares. - Continue management under fireworks maker's care. - Patient to complete pending lab work ordered by fireworks maker, including liver enzymes, CMP, and vitamin D levels. There are no Patient Instructions on file for this visit. I spent a total of 29 minutes on the date of the service which included preparing to see the patient, [id number] patient care, completing clinical documentation, obtaining and/or reviewing separately obtained history, performing a medically appropriate examination, counseling and educating the patient/family/caregiver, ordering medications, tests, or procedures, independently interpreting results (not separately reported), and communicating results to the patient/family/caregiver Faustina Carcamo MD documented in this encounter [facility] 08-02-2024 Note [facility] 08-01-[address] - 08/01/2024 10:42 AM EST Nutrition Intervention 07/27/2024: Goals: to continue to eat 6x day Wants to enjoy cooking and eating again Small plates for snacks only, not food Take picture of meals and discuss at next appointment documented in this encounter [facility] 07-30-2024 History of Present illness Narrative VIRTUAL VISIT PROGRESS NOTE This is a virtual visit using [employer] Video Visit. It required patient-provider interaction for the medical decision making as documented below. I have communicated my name and active licensure. The patient's identity and physical location were verified at the time of this visit. Either the patient or their legal representative personal service has been informed of the risks and benefits of -- and alternatives to -- treatment through a remote evaluation and consents to proceed with the evaluation remotely. MD Liliam Lobato July 27, 2024 Referring Provider:Silvia Tucker PCP: Faustina Carcamo MD Chief Complaint: Patient presents with: Recheck Background Rheumatologic History: Previously seen by multiple providers in our division From Dr. Lucero - Started having fevers in [place]/Senior year of high school. 16-17yo Was later diagnosed with inflammatory arthritis. [id number] Was treated with hydroxychloroquine + methotrexate While [...] chest, when she tries to sleep at [facility] she has difficulty laying down. 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 F/U 03/12/24 Ilaris approved in Sep. She has been doing better since then. No overt flare. Unfortunately, she just quit her job and is in the process of application for Medicaid coverage. Interim History: Patient returns for follow up, last visit 03/12/2024. 1 flare since last visit that was aborted with 2 rounds of steroid pack. No flares since then. She has a dental issue that would require a tooth extraction (scheduled for later this month) and is now on antibiotics to prevent infection. Therefore, her ilaris is postponed (for 2 weeks already). She started to experience some joint pain and stiffness already. PAST MEDICAL HISTORY Diagnosis Date Anxiety Angeli Constantino Asthmatic bronchitis recurrent episodes since pneumonia fall and winter Depression Angeli Constantino Epigastric abdominal pain Fibromyalgia Dr. Terrazas Inflammatory polyarthritis ([facility]) Joint pain Wood Buffer- Dr. Kelly @[facility] Migraine with aura visual aura; diagnosed with [...] arrhythmia Snoring Suicide attempt by acetaminophen overdose ([facility]) 06/2014 Syncope Vomiting PAST SURGICAL HISTORY Procedure [...] Comment: occiasionally Drug use: No Health Maintenance There are no preventive care reminders to display for this patient. Immunization History Administered Date(s) Administered COVID-19 original vaccine, age 12+ yr, monovalent ([place] - ALANIZ TOP) 09/28/2021 COVID-19 original vaccine, age 12+ yr, monovalent ([facility] - PURPLE TOP) 10/11/2020 11/01/2020 04/06/2021 COVID-19 vaccine, age 12+ yr ([facility] COMIRNATY) 06/22/2023 04/21/2024 COVID-19 vaccine, age 12+ yr, bivalent ([facility]) 07/28/2022 Haemophilus influenzae b (HbOC) vaccine, 4-dose [...] (HPV4) vaccine, quadrivalent (GARDASIL) 05/09/2007 06/14/2007 01/14/2010 human papillomavirus (HPV9) vaccine, 9 valent (GARDASIL 9) 03/29/2024 influenza (IIV3) vaccine, age 6 mo - 64 yr, trivalent (AFLURIA, FLULAVAL, FLUVIRIN, FLUZONE) 05/15/2014 04/06/2021 influenza (IIV4) vaccine, age 6 mo - 64 yr, quadrivalent (AFLURIA, FLULAVAL, FLUZONE) 06/25/2016 04/27/2017 06/19/2018 06/20/2019 influenza (IIV4) vaccine, age 6 mo - 64 yr, quadrivalent, PF (AFLURIA, FLUARIX, FLULAVAL, FLUZONE) 04/25/2020 04/06/2021 07/20/2022 influenza (IIV4) vaccine, quadrivalent (AFLURIA, FLULAVAL, FLUZONE) 05/24/2023 influenza (aIIV3) vaccine, age 65+ yr, trivalent, PF (FLUAD) 04/21/2024 influenza vaccine, unspecified formulation 06/19/2013 measles mumps [...] Current Outpatient Medications Medication Sig Dispense Refill colchicine 0.6 mg tablet Take 1 tablet by mouth two times a day. [address] (PROTONIX) 40 mg tablet Take 1 tablet by mouth daily before breakfast. Take on empty stomach, 1/2 hr before meal. 30 tablet 0 WALKER ROLLATOR SEAT WITH 6 WHEELS - RED Adjustable. Use as directed for gait instability 1 Each 0 Syringe with Needle, Disp, 3 mL 18 x 1 1/2 Use to draw up ilaris dose 1 Each 12 Syringe with Needle, Disp, 1 mL 27 x 1/2 Use to inject subcutaneous Ilaris dose 1 Each 12 canakinumab, PF, (ILARIS, PF,) 150 mg/mL injection Inject 150mg (1 vial) subcutaneously every 4 weeks. 1 mL 11 ergocalciferol 50,000 unit capsule (VITAMIN D2, DRISDOL) Take 1 tablet by mouth once weekly. 12 capsule 3 metFORMIN ER (GLUCOPHAGE XR) 500 mg 24 hr tablet Take 1 tablet by mouth daily with breakfast. 90 tablet 3 Norethindrone, Contraceptive, 0.35 mg tablet Take 1 tablet by mouth once daily. 84 tablet 2 EPINEPHrine (EPIPEN 2-ISIDRO) 0.3 mg/0.3 mL auto-injector Inject 0.3 mL intramuscularly as needed. For allergic reaction.Seek emergent medical care immediately after use.Disp:1 2-pakw/customer service trainer 1 Each 2 naratriptan (AMERGE) 2.5 mg tablet Take 1 tablet (2.5 mg) by mouth as needed for migraine headache (see administration instructions). 2.5 mg at onset of headache, may repeat in 4 hours if needed 9 tablet 11 albuterol HFA (PROAIR HFA) 90 mcg/actuation inhaler Inhale 2 Puffs as instructed every 4 hours as needed. 18 g 1 baclofen 10 mg tablet Take 1 tablet [...] 1 month if needed 60 capsule 5 montelukast (SINGULAIR) 10 mg tablet Take 1 [...] RAGWEED VERIFIED BY SKIN TESTING Physical Exam: LMP 12/31/2021 Impression: 1. Periodic fever syndrome -most consistent with systemic JILLIAN 2. High risk medication use She has been doing well on Ilaris. Only 1 flare over the past 5 months. I will continue it along with colchicine. Since she is not dealing with an actual infection (antibiotic is more or less for prophylaxis), I think it is okay to resume ilaris now to prevent flare. Recommendations/Plan Plan discussed with patient Return Visit: Follow-up in person January 22 at 4 PM I spent a total of 30 minutes on the date of the service which included preparing to see the patient, [id number] patient care, completing clinical documentation, obtaining and/or reviewing separately obtained history, performing a medically appropriate examination, counseling and educating the patient/family/caregiver, and ordering medications, tests, or procedures. Silvia Tucker MD Referring Provider:Silvia Tucker PCP: Faustina Carcamo MD Answers submitted by the patient for this visit: Review of Systems Rheumatology (Submitted on 07/26/2024) Fever : No Recent unintentional weight change: No Eye pain: No Eye redness: No Vision Disturbance: Yes Eye Dryness: No Nosebleeds: No Sores in your mouth: Yes Trouble Swallowing: No Dry Mouth: No Chest pain: Yes Leg Swelling: No A cough: No Shortness of breath: No Pain with breathing: Yes Heartburn: Yes Abdominal pain: No Diarrhea: Yes Black tarry stools: No Blood in urine: No Pain or burning with urination: No Joint pain or stiffness: Yes Muscle weakness: No Muscle aches: No Joint swelling: No Morning Stiffness in Joints: Yes A rash: No Skin Color Changes: No Hair Loss: Yes Nail Changes: No Headaches: Yes Memory Loss: No Swollen Glands: Yes documented in this encounter [facility] 07-30-2024 Note [facility] 07-27-2024 Note HNO ID: [id number] Author: CINDY MAC RD Service: ? Author Type: Registered Dietitian Type: Progress Notes Filed: 08/01/2024 10:45 Note Text: [facility] Nutrition Therapy: Virtual Consult - Initial Assessment I have communicated my name and active licensure. The patient?s identity and physical location were verified at the time of this visit. Either the patient or their legal representative personal service has been informed of the risks and benefits of -- and alternatives to -- treatment through a remote evaluation and consents to proceed with the evaluation remotely. Nutrition Diagnosis: Behavioral-Environmental: Food and nutrition related knowledge deficit, related to, lack of prior exposure to information , as evidenced by client has no prior knowledge of need for food and nutrition - related information. RECOMMENDED MALNUTRITION DIAGNOSIS: NO MALNUTRITION IDENTIFIED NUTRITION CARE PLAN Nutrition Intervention 07/27/2024: Goals: to continue to eat 6x day Wants to enjoy cooking and eating again Small plates for snacks only, not food Take picture of meals and discuss at next appointment Nutrition Monitoring AND Evaluation: Monitor weight status and labs as available. Monitor diet recall for adherence to recommendations. Monitor Need for Follow up: x 4 weeks Patient presents with bulemia/atypical anorexia and restrictive eating.Patient has had relapses when well intentioned people have made suggestions regarding dieting which pushes her to have triggered episodes. Patient completed an intensive outpatient program recently, works with therapist. Following meal plan with 3 meals and 3 snacks. Working up to this had symptoms of heartburn and discomfort but has gotten better. Likes discussion about food as fuel, food neutrality. 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 Lovevegetables, having trouble eating these right now due to teeth issues, having dental work done in the coming weeks. Patient shares that she has a supportive partner, traveling to [place] in the coming weeks for his family holidays. 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 Resting Metabolic Rate: 1925 Malnutrition Screening Significant unintentional weight loss? No Eating less than 75% of usual intake for more than 2 weeks? No Potential Signs of Inflammation: unable to determine at this time Education Materials Provided: None this visit READINESS TO LEARN Cognitive ability: Alert and oriented Motivation to learn: Interested Family support: None - Unavailable/disinterested Instruction provided to: Patient Patient learns best by: Unable to Assess Factors affecting learning: None Physical limitations affecting learning: None Referred by: Andrew JONES Billing Type: Initial Assess/15 min 3 units SIGNATURE: Cindy Mac RD PATIENT NAME: Liliam Thompson DATE: July 27, 2024 TIME: 3:16 PM PAGER: N/A [facility] 07-27-2024 History of Present illness Narrative [facility] Nutrition Therapy: Virtual Consult - Initial Assessment I have communicated my name and active licensure. The patient s identity and physical location were verified at the time of this visit. Either the patient or their legal representative personal service has been informed of the risks and benefits of -- and alternatives to -- treatment through a remote evaluation and consents to proceed with the evaluation remotely. Nutrition Diagnosis: Behavioral-Environmental: Food and nutrition related knowledge deficit, related to, lack of prior exposure to information , as evidenced by client has no prior knowledge of need for food and nutrition - related information. RECOMMENDED MALNUTRITION DIAGNOSIS: NO MALNUTRITION IDENTIFIED NUTRITION CARE PLAN Nutrition Intervention 07/27/2024: Goals: to continue to eat 6x day Wants to enjoy cooking and eating again Small plates for snacks only, not food Take picture of meals and discuss at next appointment Nutrition Monitoring & Evaluation: Monitor weight status and labs as available. Monitor diet recall for adherence to recommendations. Monitor Need for Follow up: x 4 weeks Patient presents with bulemia/atypical anorexia and restrictive eating.Patient has had relapses when well intentioned people have made suggestions regarding dieting which pushes her to have triggered episodes. Patient completed an intensive outpatient program recently, works with therapist. Following meal plan with 3 meals and 3 snacks. Working up to this had symptoms of heartburn and discomfort but has gotten better. Likes discussion about food as fuel, food neutrality. 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 Love vegetables, having trouble eating these right now due to teeth issues, having dental work done in the coming weeks. Patient shares that she has a supportive partner, traveling to [place] in the coming weeks for his family holidays. 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 Resting Metabolic Rate: 1925 Malnutrition Screening Significant unintentional weight loss? No Eating less than 75% of usual intake for more than 2 weeks? No Potential Signs of Inflammation: unable to determine at this time Education Materials Provided: None this visit READINESS TO LEARN Cognitive ability: Alert and oriented Motivation to learn: Interested Family support: None - Unavailable/disinterested Instruction provided to: Patient Patient learns best by: Unable to Assess Factors affecting learning: None Physical limitations affecting learning: None Referred by: Andrew JONES Billing Type: Initial Assess/15 min 3 units SIGNATURE: Cindy Mac RD PATIENT NAME: Liliam Thompson DATE: July 27, 2024 TIME: 3:16 PM PAGER: N/A documented in this encounter [facility] 07-25-2024 Telephone encounter Note Pt's appt has been changed [facility] 07-25-2024 Miscellaneous Notes Pt's appt has been changed Virtual is fine Pt has multiple messages for today. Pt asking if her appt Tuesday can be changed to virtual or does it need to be in person Please call pt [phone] documented in this encounter [facility] 07-25-2024 Telephone encounter Note Spoke with pt and relayed provider message. Pt verbalized understanding. [facility] 07-25-2024 Miscellaneous Notes Spoke with pt and relayed provider message. Pt verbalized understanding. Tried to call pt, but no answer. Please ask her to hold off ilaris until she completes antibiotics. Please see pt message and advise. Thank you. Pt states she broke a tooth and was given antibiotics Pt was scheduled to take her Ilaris 2 days ago Pt wants to know if she could take the Ilaris, while on the antibiotics? Pt could be reached at [phone] Thank you documented in this encounter [facility] 07-25-2024 Telephone encounter Note Tried to call pt, but no answer. [facility] 07-25-2024 Telephone encounter Note Virtual is fine [facility] 07-25-2024 Telephone encounter Note Please ask her to hold off ilaris until she completes antibiotics. [facility] 07-25-2024 Telephone encounter Note Pt has multiple messages for today. [facility] 07-25-2024 Telephone encounter Note Pt asking if her appt Tuesday can be changed to virtual or does it need to be in person Please call pt [phone] [facility] 07-25-2024 Telephone encounter Note Please see pt message and advise. Thank you. [facility] 07-25-2024 Telephone encounter Note Pt states she broke a tooth and was given antibiotics Pt was scheduled to take her Ilaris 2 days ago Pt wants to know if she could take the Ilaris, while on the antibiotics? Pt could be reached at [phone] Thank you [facility] 07-19-2024 Telephone encounter Note OK [facility] 07-19-2024 Miscellaneous Notes OK Patient calls and states that she was recently prescribed antibiotic at [facility]. Patient reports that she has vaginal itching and thinks she has a yeast infection. Patient asking if provider can send in prescription for Diflucan to [facility]? The patient has been identified by name and date of : Yes Caregiver verified no other encounters exist for this prescription request: Yes Caregiver confirmed with patient/requestor that no other refills are due, in the near future, with this provider at this time: Yes The last office visit in the department: 07/04/2024 Does the patient have a future office visit with this provider/department: Yes 08/20/2024 Requested Prescriptions Pending Prescriptions Disp Refills fluconazole (DIFLUCAN) 150 mg tablet 1 tablet 0 Sig: Take 1 tablet by mouth one time only for 1 dose. Patsy Mcclellan RN July 19, 2024 8:56 AM documented in this encounter [facility] 07-19-2024 Telephone encounter Note Patient calls and states that she was recently prescribed antibiotic at [facility]. Patient reports that she has vaginal itching and thinks she has a yeast infection. Patient asking if provider can send in prescription for Diflucan to [facility]? The patient has been identified by name and date of : Yes Caregiver verified no other encounters exist for this prescription request: Yes Caregiver confirmed with patient/requestor that no other refills are due, in the near future, with this provider at this time: Yes The last office visit in the department: 07/04/2024 Does the patient have a future office visit with this provider/department: Yes 08/20/2024 Requested Prescriptions Pending Prescriptions Disp Refills fluconazole (DIFLUCAN) 150 mg tablet 1 tablet 0 Sig: Take 1 tablet by mouth one time only for 1 dose. Patsy Mcclellan RN July 19, 2024 8:56 AM [facility] 07-11-2024 Note [facility] 07-11-2024 History of Present illness Narrative This note was created using [email or web address]. Subjective Liliam Thompson is a 33 year old female. Patient is a 33-year-old female who complains of worsening sinus pain and pressure that she has been experiencing for the past 2 weeks. Patient states that over the past 1 day she has also developed increasing left ear pain. Patient describes pressure and fullness to her right ear but denies pain. Patient reports no sore throat or cough. Patient denies fever, chills or myalgia. Patient has been taking ciiv-ihc-clxjewm medications with no improvement in her symptoms. Patient states she does have a history of recurrent sinus infections and that her current symptoms are consistent with same. Ear Pain Associated symptoms include congestion. Review of Systems HENT: Positive for congestion, ear pain, sinus pressure and sinus pain. All other systems reviewed and are negative. Objective BP 132/80 Pulse 91 Temp 37.1 C (98.7 F) (Tympanic) Resp 16 Wt 128.8 kg (283 lb 15.2 oz) LMP 12/31/2021 SpO2 98% BMI 55.46 kg/m Physical Exam Vitals and nursing note reviewed. Constitutional: Appearance: Normal appearance. She is normal weight. HENT: Head: Normocephalic and atraumatic. Right Ear: Tympanic membrane, ear canal and external ear normal. Left Ear: Tympanic membrane, ear canal and external ear normal. Nose: Congestion present. Mouth/Throat: Mouth: Mucous membranes are moist. Pharynx: Oropharynx is clear. Posterior oropharyngeal erythema present. Eyes: Extraocular Movements: Extraocular movements intact. Conjunctiva/sclera: Conjunctivae normal. Pupils: Pupils are equal, round, and reactive to light. Cardiovascular: Rate and Rhythm: Normal rate and regular rhythm. Pulses: Normal pulses. Heart sounds: Normal heart sounds. Pulmonary: Effort: Pulmonary effort is normal. Breath sounds: Normal breath sounds. Musculoskeletal: Cervical back: Normal range of motion and neck supple. Skin: General: Skin is warm and dry. Capillary Refill: Capillary refill takes less than 2 seconds. Neurological: General: No focal deficit present. Mental Status: She is alert and oriented to person, place, and time. Psychiatric: Mood and Affect: Mood normal. Behavior: Behavior normal. Thought Content: Thought content normal. Judgment: Judgment normal. Assessment and Plan Physical exam findings as noted above. Patient was provided with a prescription for Augmentin 875-125 mg and supportive care instructions were discussed. Patient verbalizes clear understanding of same. CLINICAL IMPRESSION: Acute Sinusitis documented in this encounter [facility] 07-04-2024 Instructions Moon Beavers, BLADE SHARPENER.SAFETY COUNCIL DIRECTOR - 07/04/2024 3:27 PM EST 1. Start Protonix once daily, take for 30 days. Take once a day in the morning on an empty stomach and wait at least 30 minutes before eating 2. Eat 6 small meals a day instead of 2 or 3 big ones. This is to keep some food in your stomach so the acid has something to work on. Eat slowly. Don't lie down for 2 to 3 hours after eating. Avoid eating or drinking anything right before going to bed. 3. Elevate head of bed on blocks approximately 4-6 inches. It is not sufficient to just use a wedge pillow. Bending at waist increases intra-abdominal pressure, which will increase reflux. 4. Minimize/eliminate chocolate, coffee, peppermint, fruit juices, tomatoes, greasy and spicy foods. All of these either stimulate stomach acid production, or are acidic themselves. 5. Avoid NSAID's such as ibuprofen (Advil , Motrin ) or naproxen (Aleve ) 7. Follow-up in 2 week(s) if symptoms do not improve or sooner if worsening documented in this encounter [facility] 07-04-2024 Note [facility] 07-04-2024 History of Present illness Narrative CC: Patient presents with: Same Day Appointment: mid back pain to left flank after eating x since Tuesday HPI Liliam Thompson is a 33 year old female who presents today for above. Pain started after eating wings on Tuesday evening. It was constant the first few days but has improved a little. Location: epigastric and LUQ with radiation to left flank Described as: stabbing, intermittent Aggravating factors: eating, especially fried/greasy foods Alleviating factors: none Associated symptoms: heart burn, nausea, reflux, decreased appetite, bloating, belching, odynophagia x 1 episode. She does report taking NSAID's frequently for migraines. She recently completed two courses of Medrol dose pack and antibiotics. Denies: blood in stools or black stools, change in bowel habit, diarrhea, vomiting, constipation Treatment: Pepcid with no relief PMH: GERD Surgical history: non-contributory Endoscopy history: EGD: 2013-erythematous stomach, COLONOSCOPY: 2013-normal Review of Systems Constitutional: Negative for chills, diaphoresis, fever and unexpected weight change. Respiratory: Negative for cough and wheezing. PAST MEDICAL HISTORY Diagnosis Date Anxiety Angeli Constantino Asthmatic bronchitis recurrent episodes since pneumonia fall and winter of 2011 Depression Angeli Constantino Epigastric abdominal pain Fibromyalgia Dr. Terrazas Inflammatory polyarthritis (HCC) Joint pain Wood Buffer- Dr. Kelly @[facility] Migraine with aura visual aura; diagnosed with [...] for removal 11/2028 ALLERGIES Latex, Natural Rubber; Banana; Latex; and Seasonal Allergies MEDICATIONS methylPREDNISolone (MEDROL DOSE-PACK) 4 mg Dose-Pack Take as instructed per package. 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 FAMILY HISTORY Problem Relation Age of Onset [...] use: Yes Comment: occiasionally Drug use: No BP 136/80 (BP Site: Left Arm, BP Position: Sitting, BP Cuff Size: Large Adult) Pulse 119 Resp 14 Ht 152.4 cm (5') Wt 125.8 kg (277 lb 5.4 oz) LMP 12/31/2021 SpO2 99% BMI 54.16 kg/m Physical Exam Vitals reviewed. Constitutional: Appearance: Normal appearance. Cardiovascular: Rate and Rhythm: Normal rate and regular rhythm. Heart sounds: Normal heart sounds. No murmur heard. Pulmonary: Effort: Pulmonary effort is normal. Breath sounds: Normal breath sounds. No wheezing, rhonchi or rales. Abdominal: General: Bowel sounds are normal. There is no distension. Palpations: Abdomen is soft. There is no hepatomegaly, splenomegaly or mass. Tenderness: There is abdominal tenderness (epigastric and LUQ, mild). There is no guarding or rebound. Comments: Difficult exam due to body habitus Skin: General: Skin is warm and dry. Neurological: Mental Status: She is alert. Psychiatric: Mood and Affect: Mood normal. DATA REVIEWED: most recent EGD and colonoscopy ASSESSMENT/PLAN: 1. Epigastric abdominal pain - ICD9: 789.06, ICD10: R10.13 (primary diagnosis) Suspect gastritis secondary to medications-Medrol, NSAID's and antibiotics - Begin treatment with Protonix 40 mg daily - continue with Pepcid 1-2 times a day - Follow up in 2 weeks if symptoms don't improve or sooner if worsening - Discussed lifestyle modifications, see patient instructions 2. Heartburn - ICD9: 787.1, ICD10: R12 As above Prescription instructions reviewed with patient as applicable. Potential red flag symptoms discussed with the patient. Reviewed appropriate action plan to take if red flag symptoms occur. Patient agreeable to treatment plan. Moon Beavers APRN.SAFETY COUNCIL DIRECTOR documented in this encounter [facility] 07-02-2024 Note [facility] 06-14-2024 Telephone encounter Note Spoke with pt and relayed provider message. Pt verbalized understanding. [facility] 06-14-2024 Miscellaneous Notes Spoke with pt and relayed provider message. Pt verbalized understanding. Addended by: SILVIA TUCKER on: 06/14/2024 02:28 PM Modules accepted: Orders Let's do another course of steroid Dosepak. She would need urgent care/ER evaluation if still does not get better after the second round. Spoke with pt. Pt states completed medrol dose pack yesterday. Pt states was feeling better first 4 days on medrol dose pack and then last 2 days noticed pain in chest returned, swollen lymph node L side of neck with tenderness, joint pain in hips/knees, fever (1pm today was 100F). OTC no meds used. Developed 2 mouth ulcers when got down to last 2 days of medrol dose pack. States mouth sores improved, but still present. Pt states was previously seen in ER recently for chest pain. Please see Rheumatology [facility] Get Medical Advice note from 06/06/2024 that ties to this message. Pharmacy: [id number] [place] [address] [phone] [facility]. [phone] [address] [id number] Advised pt if sxs worsen to go to ER for further evaluation. Please advise. Thank you. Patient stated that she finished her Medrol Dose Pack yesterday but has been experiencing a resurgence of symptoms for the past few days with them being worse today. Patient stated that she is experiencing joint pain, fevers, and swollen glands in her neck and armpit. Patient's phone number: [phone] documented in this encounter [facility] 06-14-2024 Note Addended by: SILVIA ISLAS on: 06/14/2024 02:28 PM Modules accepted: Orders [facility] 06-14-2024 Telephone encounter Note Let's do another course of steroid Dosepak. She would need urgent care/ER evaluation if still does not get better after the second round. [facility] 06-14-2024 Telephone encounter Note Spoke with pt. Pt states completed medrol dose pack yesterday. Pt states was feeling better first 4 days on medrol dose pack and then last 2 days noticed pain in chest returned, swollen lymph node L side of neck with tenderness, joint pain in hips/knees, fever (1pm today was 100F). OTC no meds used. Developed 2 mouth ulcers when got down to last 2 days of medrol dose pack. States mouth sores improved, but still present. Pt was previously seen in ER recently for chest pain. Please see Rheumatology Get Medical Advice note from 06/06/2024 that ties to this message. Pharmacy: [id number] [place] [address] [phone] [facility] [phone] [address] [facility] [id number] Advised pt if sxs worsen to go to ER for further evaluation. Please advise. Thank you. [facility] 06-14-2024 Telephone encounter Note Patient stated that she finished her Medrol Dose Pack yesterday but has been experiencing a resurgence of symptoms for the past few days with them being worse today. Patient stated that she is experiencing joint pain, fevers, and swollen glands in her neck and armpit. Patient's phone number: [phone] [facility] 06-08-2024 Note [facility] 06-08-2024 History of Present illness Narrative AMBULATORY TELEPHONE VISIT Liliam Thompson has consented to this telephone encounter. Persons Present: patient Chief Complaint/Reason: ER follow up chest pain HPI: Presents for ER follow up visit. She was seen at [facility] June 07, 2024 with report of chest pain. Noted history of stills disease and possibly POTS tachycardia noting chest pain that started about 2 and half hours prior to arrival when walking her dog. Was only 2-minute long she thought that maybe since she was having fevers and fiber still sees over the last week or so the testing was done. However was seeming to get worse. Pain on the left side of her chest. Left shoulder felt numb and tingling. Reported also pain that is sharp and stabbing and mildly showed sinus tachycardia 127 bpm with PVCs but no acute ST changes. No STEMI. Chest x-ray showed no evidence of pneumothorax or pneumonia, no acute process. CBC normal D-dimer normal BMP without concerning findings. Troponin negative. Upon repeat examination nation and after IV fluid bolus pulse decreased to 70 bpm. She contacted rheumatology office and reported the following: I spoke with Bina (see Introhive message). She reports sx began Tuesday of last week. Mouth ulcers are still present; does not currently use any oral rinses. Left eye redness and inflammation has improved, had clear drainage, eye pain, and pressure. Has bilateral joint pain in her knees and knuckles with mild swelling in knuckles. Rates pain 7/10 first thing in the morning, then comes down to 4/10 throughout the day, improves with movement. Fever last night was 101, lasting several hours. Also experiencing intermittent red rash on chest and arms, usually subsides within a couple of hours. Stabbing pain with taking deep breaths improves when leaning forward. Went to the ER last night in [place] for this. They ruled out PE and SC. CXR was normal, labs were ok. No medications prescribed. She stopped taking colchicine d/t no insurance coverage. Still taking Ilaris, last dose taken was beginning of this month. Taking OTC ibuprofen for the pain. She was prescribed a course of steroids to treat the flare periodic fever syndrome per Dr. Yang rheumatology. Today reports feeling palpitations that are intermittent. Notes takes atenolol as needed only, not currently taking. Chest pain: notes continues, a bit better now Blood pressure: states fine now 122/81 most recently Heart rate: Notes in 100s when checking at home Fever: has had for about one week, 101F most days, yesterday at 100F, peaks in the evening around 8 pm. Joint pain:notes continues, fingers and knees mostly Taking methylprednisolone: has not yet started, not yet filled by pharmacy. Notes some pleuritic discomfort. Data Reviewed: Outside chart from [facility] reviewed. EPIC chart reviewed Assessment: (M04.1) Periodic fever syndrome (HCC) (primary encounter diagnosis) (M25.50) Pain in joint, multiple sites (R07.89) Other chest pain (R00.2) Palpitations Plan: ASSESSMENT/PLAN: 1. Periodic fever syndrome (HCC) - ICD9: 277.31, ICD10: M04.1 (primary diagnosis) 2. Pain in joint, multiple sites - ICD9: 719.49, ICD10: M25.50 3. Other chest pain - ICD9: 786.59, ICD10: R07.89 4. Palpitations - ICD9: 785.1, ICD10: R00.2 ER follow-up. ACS ruled out. Noted palpitations and chest discomfort with exertion. Presumed flare of periodic fever syndrome. Methylprednisolone ordered but not yet provided from the pharmacy yet. Endorsed starting this today, she will let us know if we need to send the prescription to a different pharmacy. Recommend drinking sufficient fluids, aim for at least 64 ounces. Take atenolol 25 mg daily for now until feeling improved. Let us know if needing anything additional or not improving. Has rheumatology follow-up scheduled for July. Genaro Morales APRN.CNS Total Time Spent: 20 minutes Genaro Morales APRN.DAWSON documented in this encounter [facility] 06-08-2024 Note [facility] 06-07-2024 Telephone encounter Note I spoke with Bina (see MyChart message). She reports sx began Tuesday of last week. Mouth ulcers are still present; does not currently use any oral rinses. Left eye redness and inflammation has improved, had clear drainage, eye pain, and pressure. Has bilateral joint pain in her knees and knuckles with mild swelling in knuckles. Rates pain 7/10 first thing in the morning, then comes down to 4/10 throughout the day, improves with movement. Fever last night was 101, lasting several hours. Also experiencing intermittent red rash on chest and arms, usually subsides within a couple of hours. Stabbing pain with taking deep breaths improves when leaning forward. Went to the ER last night in [place] for this. They ruled out PE and SC. CXR was normal, labs were ok. No medications prescribed. She stopped taking colchicine d/t no insurance coverage. Still taking Ilaris, last dose taken was beginning of this month. Taking OTC ibuprofen for the pain. [facility] 06-07-2024 Miscellaneous Notes I spoke with Bina (see Introhive message). She reports sx began Tuesday of last week. Mouth ulcers are still present; does not currently use any oral rinses. Left eye redness and inflammation has improved, had clear drainage, eye pain, and pressure. Has bilateral joint pain in her knees and knuckles with mild swelling in knuckles. Rates pain 7/10 first thing in the morning, then comes down to 4/10 throughout the day, improves with movement. Fever last night was 101, lasting several hours. Also experiencing intermittent red rash on chest and arms, usually subsides within a couple of hours. Stabbing pain with taking deep breaths improves when leaning forward. Went to the ER last night in [place] for this. They ruled out PE and SC. CXR was normal, labs were ok. No medications prescribed. She stopped taking colchicine d/t no insurance coverage. Still taking Ilaris, last dose taken was beginning of this month. Taking OTC ibuprofen for the pain. documented in this encounter [facility] 05-15-2024 History of Present illness Narrative [facility] Refill Assessment Medication(s): Ilaris Patient's current medication list and adherence status [...] been reviewed prior to dispensing the medication. 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 [facility] CLINICAL ASSESSMENT - INFLAMMATORY CONDITIONS V6: Assessment to use: Refill Date of influenza vaccination reminder: 04/24/2024 Date of most recent vaccination assessment: 04/24/2024 Treatment Plan Information: Ilaris Inject 150mg (1 vial) subcutaneously every 4 weeks. Est. Tx Plan Start Date: No information available Estimated Start Date Info: Established on therapy Est. Estimated Treatment Duration: Until lack of efficacy Ronnie Yoon ([facility]) [facility] FAX: documented in this encounter [facility] 05-15-2024 Note [facility] 05-14-[address] - 05/14/2024 10:05 AM EDT If able [...] instead of CIB documented in this encounter [facility] 05-14-2024 Note [facility] 05-14-2024 History of Present illness Narrative [facility] Nutrition Therapy: Virtual Consult - Initial Assessment I have communicated my name and active licensure. The patient s identity and physical location were verified at the time of this visit. Either the patient or their legal representative personal service has been informed of the risks and [...] Last Ht 05/14/24 : 153.7 cm (5' 0.5) Current weight: Last Wt 05/14/24 : 122 [...] Type: Initial Assess/15 min 3 units SIGNATURE: Rossy Cleveland RD PATIENT NAME: Liliam Thompson DATE: May 14, 2024 TIME: 9:34 AM documented in this encounter [facility] 05-08-2024 Telephone encounter Note Order has been faxed to [facility] as instructed [facility] 05-08-2024 Miscellaneous Notes Order has been faxed to [facility] as instructed OK, printed, resend. Patient calls and states that Rollator prescription needs to be for an adjustable Rollator. Please send updated order to [facility]. Please review and advise, Patsy Mcclellan RN documented in this encounter [facility] 05-08-2024 Telephone encounter Note OK, printed, resend. [facility] 05-04-2024 Telephone encounter Note Patient calls and states that Rollator prescription needs to be for an adjustable Rollator. Please send updated order to [facility]. Please review and advise, Patsy Mcclellan RN [facility] 04-30-2024 Telephone encounter Note Order and pertinent information faxed to [facility]. Yana Cruz LPN [facility] 04-30-2024 Miscellaneous Notes Order and pertinent information faxed to [facility]. Yana Cruz LPN Patient is requesting her rollator order be sent to [facility] in [place], please review and advise. La Nena Lui April 30, 2024 1:24 PM documented in this encounter [facility] 04-30-2024 Telephone encounter Note Patient is requesting her rollator order be sent to [facility] in [place], please review and advise. La Nena Lui April 30, 2024 1:24 PM [facility] 04-30-2024 Instructions Faustina Carcamo MD - 04/30/2024 [...] will be electronically signed and available in Introhive for you to access. - If physical therapy is required by your insurance before obtaining the rollator, please let us know your preference for a [facility] location. - Please let us know if there is any additional paperwork that needs to be signed for your ADA request. documented in this encounter [facility] 04-30-2024 History of Present illness Narrative VIRTUAL VISIT PROGRESS NOTE This is a virtual visit using Introhive Zoom Video Visit. It required patient-provider interaction for the medical decision making as documented below. I have communicated my name and active licensure. The patient's identity and physical location were verified at the time of this visit. Either the patient or their legal representative personal service has been informed of the risks and [...] Dr. Terrazas Inflammatory polyarthritis (HCC) Joint pain Wood Buffer- Dr. 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 Patient is new to [facility] not new to Ilaris. Thank you Requested Prescriptions Pending Prescriptions Disp Refills Syringe with Needle, Disp, 3 mL 18 x 1 1/2 1 Each 12 Sig: Use to draw up ilaris dose Syringe with Needle, Disp, 1 mL 27 x 1/2 1 Each 12 Sig: Use to inject subcutaneous Ilaris dose Please review and advise. Ramin Glasgow RPh [facility] 04-24-2024 Miscellaneous Notes Please sign these orders, patient needs syringes to go with her new Ilaris prescription. Patient is new to [facility] not new to Ilaris. Thank [...] Ramin Glasgow RPh documented in this encounter [facility] 04-19-2024 History of Present illness Narrative [facility] received prescription(s) for Ilaris from Ungprasert's office. Benefits investigation was conducted, indicating that a prior authorization is required by patient's insurance plan with [place] Medicaid/[employer]. Encounter will be updated once prior authorization has been submitted by [facility]. Ronnie Yoon ([facility]) [facility] FAX: documented in this encounter [facility] 04-19-2024 Note HNO ID: [id number] Author: ?, ?, ? Service: ? Author Type: ? Type: Progress Notes Filed: 04/23/2024 16:13 Note Text: [facility] 04-19-2024 Note [facility] 04-19-2024 Note [facility] 04-18-2024 Telephone encounter Note Images from the original note were not included. Most recent Rheumatology visit: 03/12/2024 (with Silvia Tucker) Last Bone Density on file: None on file Rheumatology Care Team: None on file Recent Office Visits - This Specialty 03/12/2024 SO-JILLIAN (systemic onset juvenile idiopathic arthritis) ([facility]) Rheumatology Silvai Tucker MD 09/09/2023 SO-JILLIAN (systemic onset juvenile idiopathic arthritis) ([facility]) Rheumatology Silvia Tucker MD 03/24/2023 Periodic fever syndrome ([facility]) Rheumatology/Pulmonary Silvia Tucker MD Upcoming Rheumatology Appointments - Next 365 Days Visit Type Date Time Department [facility] 07/30/2024 10:00 AM [facility] CBC: Latest Ref Rng & Units [...] diagnoses: SO-JILLIAN (systemic onset juvenile idiopathic arthritis) ([facility]) VITAMIN D 25 HYDROXY [SQVITD] 07/23/24 10/22/24 03/12/24 Auth. provider: Silvia Tucker MD Assoc. diagnoses: SO-JILLIAN (systemic onset juvenile idiopathic arthritis) ([facility]) Lorie Nazario RN [facility] 04-18-2024 Miscellaneous Notes Images from the original note were not included. Most recent Rheumatology visit: 03/12/2024 (with Silvia Tucker) Last Bone Density on file: None on file Rheumatology Care Team: None on file Recent Office Visits - This Specialty 03/12/2024 SO-JILLIAN (systemic onset juvenile idiopathic arthritis) ([facility]) Rheumatology Silvia Tucker MD 09/09/2023 SO-JILLIAN (systemic onset juvenile idiopathic arthritis) ([facility]) Rheumatology Silvia Tucker MD 03/24/2023 Periodic fever syndrome ([facility]) Rheumatology/Pulmonary Silvia Tucker MD Upcoming Rheumatology Appointments - Next 365 Days Visit Type Date Time Department [facility] 07/30/2024 10:00 AM [facility] CBC: Latest Ref Rng & Units [...] SO-JILLIAN (systemic onset juvenile idiopathic arthritis) (HCC) Lorie Nazario RN THIS IS NOT A DUPLICATE Patient no longer using [facility]. documented in this encounter [facility] 04-17-2024 Telephone encounter Note THIS IS NOT A DUPLICATE Patient no longer using [facility]. [facility] 04-03-2024 Telephone encounter Note Pt is requesting to transfer care to you. It appears was seeing another provider from [facility]. Is this patient an appropriate fit and do we need to have the provider change the referral to psychology? Please advise. [facility] 04-03-2024 Miscellaneous Notes Pt is requesting to transfer care to you. It appears was seeing another provider from [facility]. Is this patient an appropriate fit and do we need to have the provider change the referral to psychology? Please advise. documented in this encounter [facility] 04-03-2024 Note [facility] 04-03-2024 History of Present illness Narrative [...] a healthy diet and stay active. 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 Terrazas No date: Inflammatory polyarthritis (HCC) No date: Joint pain Comment: Wood Buffer- Dr. Kelly @[facility] No date: Migraine with aura Comment: visual [...] Snoring 06/2014: Suicide attempt by acetaminophen overdose (HCC) No date: Syncope No date: Vomiting Social [...] PSYCHIATRY 3 mo follow up Genaro Morales APRN.ICE HOCKEY COACH 6 mo follow up Faustina Carcamo MD Schedule appt with window installation subcontractor and Dr. Tomasa Morales APRN.CNS Medical Decision Making: Problems: Moderate: 2+ stable chronic illnesses Data: Unique test result(s) reviewed: 3+ Risk: Moderate: Drug management Medical Decision Making Level: 4 - Moderate documented in this encounter [facility] 04-02-2024 History of Present illness Narrative Radiology [...] PATIENT PRESENTS WITH AN IMPLANTABLE OR ATTACHED AGRICULTURAL PRODUCE SORTER: No RADIOLOGY DEPARTMENT: General X-ray: Exam(s) Completed: Chest X-Ray PERIPHERAL IV DATA: Not applicable SIGNED BY: Leela Gutierrez RT(R) April 02, 2024 1:26 PM documented in this encounter [facility] 04-02-2024 Note [facility] 04-02-2024 Telephone encounter Note I spoke [...] steps should be regarding tx. Please advise. [facility] 04-02-2024 Miscellaneous Notes I spoke with Bina. [...] tx. Please advise. documented in this encounter [facility] 03-29-2024 Telephone encounter Note Approved until 03/27/2025 [facility] 03-29-2024 Miscellaneous Notes Approved until 03/27/2025 Form and up dated LAVONNE faxed. Pt has a new insurance and will need a new PA on the Ilaris, PA started for Ilaris. documented in this encounter [facility] 03-29-2024 Instructions Meryl Zheng RN - 03/29/2024 [...] glands, joint and muscle pain, weakness and Guillain-Warner syndrome. documented in this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 Mcneal, BLADE SHARPENER.SAFETY COUNCIL DIRECTOR - 04/18/2023 2:10 PM EDT Stay home [...] the counter medications as directed by the geospatial specialist Follow up with your doctor as needed. ER if chest pain, difficulty breathing, shortness of breath, or difficulty swallowing I documented in this encounter [facility] 04-18-2023 History of Present illness Narrative Telemedicine Visit - Distance Health Virtual Visit Note Patient seen on StartWire Online platform. Location of patient: [place] History of Present Illness Liliam Thompson is a 32 year old year old female who presents for the past 3 days with symptoms that are:stable. Symptoms include: barky cough; cough sounds like a seal, concern for [...] one again this evening. Works at a [employer] PAST MEDICAL HISTORY Diagnosis Date Anxiety Angeli Constantino Asthmatic bronchitis recurrent episodes since pneumonia fall and winter 2011 Depression Angeli Constantino Epigastric abdominal pain Fibromyalgia Dr. Terrazas Inflammatory polyarthritis (HCC) Joint pain Wood Buffer- Dr. Kelly @[facility] Migraine with aura visual aura; diagnosed with [...] 67 Not progressing at this time (2016) Arthritis Sister Lupus Psoriasis Brother Rheumatologic disease [...] with symptoms that are:stable. Symptoms include: barky cough; cough sounds like a seal, concern for [...] one again this evening. Works at a [employer] Mild temperature elevation, appeared stable, non-toxic and [...] the counter medications as directed by the geospatial specialist Follow up with your doctor as needed. ER if chest pain, difficulty breathing, shortness of breath, or difficulty swallowing - Red flags discussed for need for in person care - All questions answered Trudi Mcneal APRN.CNP If you let us know who your [...] would like to continue care with a [facility] Virtual Primary Care physician, please ask your provider to place a Establish Primary Care order. Use One Step Solutions to manage your care, wherever you are, 07/03, on your mobile device or computer. One Step Solutions connects you to Introhive so you can access all your health information in one place and also schedule and request virtual appointments with primary care providers. documented in this encounter [facility] 04-18-2023 History of Present illness Narrative Patient cancelled before being connected. Aki Jiménez APRN.CNP documented in this encounter [facility] 04-12-2023 Miscellaneous Notes Actemra prior authorization has been approved; however, due to insurance restrictions Rx must be filled at [facility]. If refill request approved, Rx will be sent to [facility] for processing. Thanks Requested Prescriptions Pending Prescriptions Disp Refills tocilizumab (ACTEMRA) 162 mg/0.9 mL 3.6 mL 11 Sig: Inject 162 mg ( 1 syringe) subcutaneously one time a week. Please review and advise. Ramin Glasgow Rph documented in this encounter [facility] 04-06-2023 History of Present illness Narrative [facility] received prescription(s) for Actemra from Dr. Silvia Tucker's office. Benefits investigation was conducted, indicating that a prior authorization is required by patient's insurance plan with [employer]. Encounter will be updated once prior authorization has been submitted by [facility]. Kerri Escobedo [facility] Aerial Applicator Pilot, Specialty Pharmacy [facility] [address] / [id number] [place] [address] Email: [email or web address] (Ronnie Yoon) [facility] received prescription(s) for Actemra from Dr. Silvia Tucker's office. Benefits investigation was conducted, indicating that a prior authorization is required. PA was initiated and pending review. Plan Name: [employer] Plan Agent/Johnson: CMM - [id number] Phone/ / [phone] Timeline: Urgent Beena Tian [facility] documented in this encounter [facility] 03-17-2023 Miscellaneous Notes Received request for additional info from insurance for Ilaris PA. Filled out form and returned to [facility]. Daly Burton PharmD, HANNA Rheumatology Clinical Foreign Banknote Teller Trader Resubmitted PA for ilaris under diagnosis of sJIA. Johnson: [id number] Awaiting determination. Daly Burton PharmD, HANNA Rheumatology Clinical Foreign Banknote Teller Trader Received denial letter for Appeal for Ilaris 150 mg/ml vial Appeal Ref#[id number] Plan Code CWR01/ Appeal date 03/11/23 Letter scanned under scanned documents 03/14/23 @ 4:11pm Urgent appeal letter for Ilaris and supporting clinical documentation faxed to [email or web address] at [phone]. Received confirmation via RightFax. 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 Terrazas Inflammatory polyarthritis (HCC) Joint pain Wood [place]- Dr. Kelly @[facility] Migraine with aura visual aura; diagnosed with [...] 67 Not progressing at this time (2016) Arthritis Sister Lupus Psoriasis Brother Rheumatologic disease [...] external genitalia normal, normal Bartholin's glands, urethra, [place]'s glands, no vulvar lesions, no cervical lesions, [...] year or sooner as needed- living in [place]- may transfer to [facility] hay rake operator Ayaan Rowley APRN.CNM documented in this encounter [facility] 02-16-2023 Miscellaneous Notes Most recent Rheumatology visit: [...] to the patient. documented in this encounter [facility] 02-16-2023 Miscellaneous Notes Please submit prior auth for [employer] New insurance information BIN [id number] PCN [id number] GRP [id number] Please call patient with any questions. Once submitted please send a [employer] message to the patient. Thank you documented in this encounter [facility] 02-07-2023 History of Present illness Narrative This note was created using Softlanding Labster. Subjective Liliam Thompson is a 32 year [...] abdominal pain Fibromyalgia Dr. Terrazas Inflammatory polyarthritis ([facility]) Joint pain Wood Buffer- Dr. Kelly @[facility] Migraine with aura visual aura; diagnosed with [...] evaluation. KILO Drummond documented in this encounter [facility] 01-12-2023 Miscellaneous Notes Submitted PA to holly and submitted to tri on 01/12/23 @ 2pm documented in this encounter [facility] 12-22-2022 Miscellaneous Notes Addressed, seen with PCP on 12/17/2022 documented in this encounter [facility] 12-17-2022 History of Present illness Narrative VIRTUAL VISIT PROGRESS NOTE This is a virtual visit using Introhive video visit. It required patient-provider interaction for the medical decision making as documented below. I have communicated my name and active licensure. The patient's identity and physical location were verified at the time of this visit. Either the patient or their legal representative personal service has been informed of the risks and [...] Dr. Terrazas Inflammatory polyarthritis (HCC) Joint pain Wood Buffer- Dr. Kelly @[facility] Migraine with aura visual aura; diagnosed with [...] arrhythmia Snoring Suicide attempt by acetaminophen overdose ([facility]) 06/2014 Syncope Vomiting PAST SURGICAL HISTORY Procedure [...] History and medications reviewed. Discussed form from [place] and work denied all accommodations requested. Discussed [...] for the form before sending back to [facility] for work accommodations. There are no Patient Instructions on file for this visit. I spent a total of 42 minutes on the date of the service which included preparing to see the patient, [id number] patient care, completing clinical documentation, performing a medically appropriate examination, and counseling and educating the patient/family/caregiver Faustina Carcamo MD documented in this encounter [facility] 12-16-2022 Miscellaneous Notes Can be addressed at her visit tomorrow. Spoke with patient and she is specifically asking if you had addressed in a letter for her work her needed accommodations as below: (see my chart 10/19/22) Pantera Carcamo! 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 See Metrilo message from pt on 10/19/22 Please send copy thru Introhive if possible. If not please call pt. She would also like to be called when this is sent to her [employer]. Loulou Blue LPN documented in this encounter [facility] 12-16-2022 Miscellaneous Notes Noted, should be ok. Patient calling said new work accomodation form is coming from [employer] lower[employer] on 12/16. Patient aware PCP is not in office today. Patient said she wants PCP to not complete form until her appt with PCP on Tuesday. She has things she needs to discuss with her. Please advise documented in this encounter [facility] 12-09-2022 Miscellaneous Notes Done Pt calls states [...] dated and signed. documented in this encounter [facility] 12-03-2022 History of Present illness Narrative MD Liliam Lobato December 03, 2022 Referring Provider: PCP: Faustina Carcamo MD Chief Complaint: Patient presents with: Recheck Background Rheumatologic History: Previously seen by multiple providers in our division From Dr. Lucero - Started having fevers in [place]/Senior year of high school. 16-19yo Was later diagnosed with inflammatory arthritis. [id number] Was treated with hydroxychloroquine + methotrexate While [...] chest, when she tries to sleep at [facility] she has difficulty laying down. If [...] 6 times/year (20mg tapered down) -IM steroids [id number] q3-4 months -Prednisone 2010- 2012 - 6 week long tapers - q 2-3 months -Prednisone 2012 - 2017 - q 3-4 months -Prednisone - last Jul 2020 - 20mg taper by 5mg every 3 days -Anakinra: 07/2018 - 08/2019 (D/C due to ineffectiveness, recurrent flares and injection site reactions) Plan at [facility]: Assessment and Plan: 30 year old female [...] osteoporosis - ICD9: V82.81, ICD10: Z13.820 -Prior half-way steroid use along with history of osteoporosis [...] July. PAST MEDICAL HISTORY Diagnosis Date Anxiety Angeli Constantino Asthmatic bronchitis recurrent episodes since pneumonia fall and winter of 2011 Depression Angeli Constantino Epigastric abdominal pain Fibromyalgia Dr. Terrazas Inflammatory polyarthritis ([facility]) Joint pain [place]- Dr. Kelly @[facility] Migraine with aura visual aura; diagnosed with [...] arrhythmia Snoring Suicide attempt by acetaminophen overdose ([facility]) 06/2014 Syncope Vomiting PAST SURGICAL HISTORY Procedure [...] COVID-19 original vaccine, age 12+ yr, monovalent ([facility] - PURPLE TOP) 11/01/2020 04/06/2021 COVID-19 vaccine, age 12+ yr, bivalent ([facility]) 07/28/2022 Haemophilus influenzae b (HbOC) vaccine, 4-dose [...] which included preparing to see the patient, [id number] patient care, completing clinical documentation, obtaining and/or [...] Swollen Glands: Yes documented in this encounter [facility] 11-17-2022 Miscellaneous Notes Accomodation substantiation forms signed by Dr. Carcamo and faxed to [phone], conchis Butts. Beena Kate MA documented in this encounter [facility] 11-10-2022 History of Present illness Narrative VIRTUAL VISIT PROGRESS NOTE This is a virtual visit using Fabkidst video visit. It required patient-provider interaction for the medical decision making as documented below. I have communicated my name and active licensure. The patient's identity and physical location were verified at the time of this visit. Either the patient or their legal representative personal service has been informed of the risks and [...] Dr. Terrazas Inflammatory polyarthritis (HCC) Joint pain Wood [place]- Dr. Kelly @[facility] Migraine with aura visual aura; diagnosed with [...] for this visit. documented in this encounter [facility] 10-18-2022 History of Present illness Narrative VIRTUAL VISIT PROGRESS NOTE This is a virtual visit using Introhive video visit. It required patient-provider interaction for the medical decision making as documented below. Liliam Thompson is a 32 year old female seen for ADA; work physical result. Biometric screening was done for work. HDL was 88. LDL was only couple points above normal. ADA form not specific enough. 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 Not given any [...] abdominal pain Fibromyalgia Dr. Terrazas Inflammatory polyarthritis ([facility]) Joint pain Wood Buffer- Dr. Kelly @[facility] Migraine with aura visual aura; diagnosed with [...] arrhythmia Snoring Suicide attempt by acetaminophen overdose ([facility]) 06/2014 Syncope Vomiting PAST SURGICAL HISTORY Procedure [...] with high HDL. 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 Will write letter to get reasonable accommodations after receive her Introhive message or fax. There are no Patient Instructions on file for this visit. I spent a total of 26 minutes on the date of the service which included preparing to see the patient, fotq-[id number] patient care, completing clinical documentation, performing a medically appropriate examination, and counseling and educating the patient/family/caregiver Faustina Carcamo MD documented in this encounter [facility] 09-20-2022 History of Present illness Narrative Images [...] Miriam Ortiz MD documented in this encounter [facility] 09-20-2022 Instructions Miriam Ortiz MD - [...] cannot be sent through Care Everywhere.Bites: Animal (Mauritanian)documented in this encounter [facility] 09-16-2022 Miscellaneous Notes Per shikha seay has already been approved. documented in this encounter [facility] 09-01-2022 History of Present illness Narrative VV Pt with frequent migraines that was doing well on zonegran and prozac. Graduated from grad school last spring. Had a job for about 6 months and then switched. 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 Was doing ok until she had the flu around [place]. Ahs had a daily MCNEAL for the [...] month? : 2 documented in this encounter [facility] 08-12-2022 Miscellaneous Notes Please approve prescription and any additional refills and e-script to designated pharmacy. Per pt, she did not receive any needles. Thank you, Caitlin Pozo documented in this encounter [facility] 08-12-2022 Miscellaneous Notes Behavioral Health Social Work Progress Note Patient identified for [facility] from: PCP Reason for referral: Resources Behavioral Health Resources: Psychiatry med management [facility] encounter type: Telephone Encounter;Introhive Message Attempts to Outreach: 1 attempt Referral made: Psychiatry - Internal Psychiatry-Internal referral type: Medication Management Final Disposition: Resources given Patient Discharged?: Yes Patient reported that caregiver was able to meet their needs today?: Yes SW placed telephone call at the request of the PCP to discuss behavioral health needs. Patient would like to transition psychiatry care from [facility] to [place] due to location of her home. Was given the numbers below to contact and request a transition of care: [facility] Psychiatry and Counseling Central Scheduling Call Center [phone] [facility] [address] [place] [address] BARBARA Frankel August 12, 2022 documented in this encounter [facility] 08-11-2022 History of Present illness Narrative This note was created using Cryo-Innovationriter. Subjective Liliam Thompson is a 31 year [...] today. PAST MEDICAL HISTORY Diagnosis Date Anxiety Angeli Constantino Asthmatic bronchitis recurrent episodes since pneumonia fall and winter of 2011 Depression Angeli Constantino Epigastric abdominal pain Fibromyalgia Dr. Terrazas Inflammatory polyarthritis ([facility]) Joint pain Wood Buffer- Dr. Kelly @[facility] Migraine with aura visual aura; diagnosed with [...] arrhythmia Snoring Suicide attempt by acetaminophen overdose ([facility]) 06/2014 Syncope Vomiting Current Outpatient Medications Medication [...] LUER-RAJI 1CC 1 mL USE DIRECTED WITH [employer] BD REGULAR BEVEL NEEDLES 18 gauge x 1 1/2 USE DIRECTED WITH [employer] BD DISPOSABLE NEEDLES 27 gauge x 1/2 [...] the date of the service which included dcgx-bx-cuvc patient care, completing clinical documentation, obtaining and/or reviewing separately obtained history, performing a medically appropriate examination, and counseling and educating the patient/family/caregiver. Faustina Carcamo MD documented in this encounter [facility] 08-05-2022 Miscellaneous Notes Submit the PA for Ilaris via [employer] waiting for the approval documented in this encounter [facility] 08-02-2022 Miscellaneous Notes Most recent Rheumatology visit: 03/24/2022 (with [facility]) Recent Office Visits - This Specialty 03/24/2022 Periodic fever syndrome (HCC) Rheumatology Silvia Tucker MD 09/25/2021 Periodic fever syndrome (HCC) Rheumatology Silvia Tucker MD 06/12/2021 Periodic fever syndrome (HCC) Rheumatology Silvia Tucker MD Upcoming Rheumatology Appointments - Next 365 Days Visit Type Date Time Department [facility] 12/03/2022 2:00 [facility] CBC: CBC Latest Ref Rng [...] Visit Type Date Time Department [facility] 12/03/2022 2:00 PM [facility] MAIN A50 [...] Lab Orders None documented in this encounter [facility] 07-14-2022 History of Present illness Narrative Liliam Thompson is a 31 year old female who presents for problem visit of resolved pelvic pain. Seen in office February for pelivic pain and concern that IUD was misplaced. Pelvic US confirmed correct placement. No further pain until 2 weeks ago when she had extreme right sided stabbing pain. Reports pain was so intense that it made her sweat and vomit. Initially thought it was her appendix and was seen with CT completed. Pain eventually subsided and denies current pelvic pain. Wondering if she has ovarian cysts. Currently sexually active and desires STD screening today. 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 Terrazas Inflammatory polyarthritis (HCC) Joint pain Wood Buffer- Dr. Kelly @[facility] Migraine with aura visual aura; diagnosed with [...] arrhythmia Snoring Suicide attempt by acetaminophen overdose ([facility]) 06/2014 Syncope Vomiting PAST SURGICAL HISTORY Procedure [...] external genitalia normal, normal Bartholin's glands, urethra, [place]'s glands, no vulvar lesions, no cervical lesions, [...] RTO- as needed or for yearly exam Ayaan Rowley APRN.CNM documented in this encounter [facility] 06-28-2022 History of Present illness Narrative dEPARTMENT [...] Alexandra 4:45 PM documented in this encounter [facility] 06-28-2022 Instructions BOAZ Alexandra - 06/28/2022 2:30 PM EST Return to the AIC or ED if urgent symptoms arise such as severe chest pain, shortness of breath, nausea, vomiting, diarrhea, constipation, fever, rashes or chills. Follow up with PCP Pending CT scan and will receive a phone call when resulted. The following attachments cannot be sent through Care Everywhere.Abdominal Pain (Mauritanian)documented in this encounter [facility] 06-03-2022 History of Present illness Narrative This Team Access Model visit is a virtual encounter. It required patient-provider interaction for the medical decision making as documented below. Patient agrees to the visit: Yes Patient Location: [place] CC: Patient presents with: Cough HPI Liliam [...] Dr. Terrazas Inflammatory polyarthritis (HCC) Joint pain Wood Buffer- Dr. Kelly @[facility] Migraine with aura visual aura; diagnosed with [...] regarding treatment options, medications, and coordinating care. 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 Patient Name: [facility] Location: [place] [address] Date Of : Date Of Visit: 1990 05/02/2022 MRN# Provider: [id number] Ovi Herrera DO Chief Complaint Patient presents with [...] at discharge. Portions of this note utilized NearWooation software. There is the possibility of grammatical [...] is intact. No weakness. Coordination: Coordination normal. Nyfyiu-Qzgr-Rnjjoh Test normal. Gait: Gait is intact. Gait [...] early next week. documented in this encounter [facility] 04-16-2022 History of Present illness Narrative [...] in urine Itchy skin Provider-Mario Vazquez MD Digital Solution Architect-Clinical, Division of Internal Medicine [facility] [place] [address] [place] [address] Chief Complaint Patient presents with [facility] Liliam Thompson is a 31 y.o. female who comes in with the following complaint(s): Problem Migraine Without Status Migrainosus, Not Intractable Periodic Fever Syndrome new to my practice Moved here for the job. She says that she has been here since December She says that she lives in [place], Wood Buffer for Periodic Fever Syndrome Started when she was little- Sore throat/fever/ arthritis/ sores in mouth/ exudates in throat/ conjunctivitis Cochicine and Ilaris for this- Dr. Whitman in [facility]. She will continue to see him Currently on Prednisone 5 mg for 1 month. POTS- Since childhood. Dx'ed by neurologist BP goes up/ pulse goes high. Atenolol for this. 25 mg once or twice a day Psych issues- good Allergies- Singulair for this. Used to see Small Engine Technician. Environmental/ Latex. Neurologist in [facility]- Dr. Lyons Migraine 3-4 times a week Plan at [facility]: Assessment and Plan: 30 year old female [...] osteoporosis - ICD9: V82.81, ICD10: Z13.820 -Prior half-way steroid use along with history of osteoporosis [...] kg (271 lb) Height: 1.57 m (5' 1.81) Constitutional: well developed, nourished, and not distressed. [...] VACCINE (1) 04/15/2022 documented in this encounter [facility] 04-16-2022 Instructions Jazmín Almazan MA - 04/16/2022 8:00 AM EDT Gynecology Scheduling Number; [phone] documented in this encounter [facility] 04-12-2022 Miscellaneous Notes Physician: Dr. Lyons Call [...] she send request for both. Pharmacy Name: [facility]/pharmacy Pharmacy Phone #: [phone] Stefani Rangel documented in this encounter [facility] 04-07-2022 Miscellaneous Notes Appt rescheduled Alysa Huggins LPN LMOM to return call Patient can be seen sooner Can offer 04/09 or 04/15 at 11:00 am Alysa Huggins LPN documented in this encounter [facility] 03-30-2022 History of Present illness Narrative This note was created using Cryo-Innovationriter. Subjective Liliam Thompson is a 31 year [...] Prednisone 40 mg daily from provider in [place]. Did not help much for the chest pressure discomfort. Not typical of pleurisy. Swelling over sternum comes and goes. Cough responds to steroids. PAST MEDICAL HISTORY Diagnosis Date Anxiety Angeli Constantino Asthmatic bronchitis recurrent episodes since pneumonia fall and winter of 2011 Depression Angeli Constantino Epigastric abdominal pain Fibromyalgia Dr. Terrazas Inflammatory polyarthritis ([facility]) Joint pain Wood Buffer- Dr. Kelly @[facility] Migraine with aura visual aura; diagnosed with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 since pneumonia fall and winter of 2011 Inflammatory polyarthritis 11/15 documented as of this encounter (statuses as of 12/03/2022) [address]27-2021 History of Past illness Narrative* Problem Noted Date Resolved Date Asthmatic bronchitis 03/10/2021 Overview: recurrent episodes since pneumonia fall and winter of 2011 Inflammatory polyarthritis 11/15 documented as of this encounter (statuses as of 12/10/2022) [address]27-2021 History of Past illness Narrative* Problem Noted Date Resolved Date Asthmatic bronchitis 03/10/2021 Overview: recurrent episodes since pneumonia fall and winter of 2011 Inflammatory polyarthritis 11/15 documented as of this encounter (statuses as of 12/16/2022) [address]27-2021 History of Past illness Narrative* Problem Noted Date Resolved Date Asthmatic bronchitis 03/10/2021 Overview: recurrent episodes since pneumonia fall and winter of 2011 Inflammatory polyarthritis 11/15 documented as of this encounter (statuses as of 12/17/2022) [address]27-2021 History of Past illness Narrative* Problem Noted Date Resolved Date Asthmatic bronchitis 03/10/2021 Overview: recurrent episodes since pneumonia fall and winter of 2011 Inflammatory polyarthritis 11/15 documented as of this encounter (statuses as of 12/18/2022) [address]27-2021 History of Past illness Narrative* Problem Noted Date Resolved Date Asthmatic bronchitis 03/10/2021 Overview: recurrent episodes since pneumonia fall and winter of 2011 Inflammatory polyarthritis 11/15 documented as of this encounter (statuses as of 12/22/2022) [address]27-2021 History of Past illness Narrative* Problem Noted Date Resolved Date Asthmatic bronchitis 03/10/2021 Overview: recurrent episodes since pneumonia fall and winter of 2011 Inflammatory polyarthritis 11/15 documented as of this encounter (statuses as of 01/12/2023) [address]27-2021 History of Past illness Narrative* Problem Noted Date Resolved Date Asthmatic bronchitis 03/10/2021 Overview: recurrent episodes since pneumonia fall and winter of 2011 Inflammatory polyarthritis 11/15 documented as of this encounter (statuses as of 02/07/2023) [address]27-2021 History of Past illness Narrative* Problem Noted Date Resolved Date Asthmatic bronchitis 03/10/2021 Overview: recurrent episodes since pneumonia fall and winter of 2011 Inflammatory polyarthritis 11/15 documented as of this encounter (statuses as of 02/17/2023) [address]27-2021 History of Past illness Narrative* Problem Noted Date Resolved Date Asthmatic bronchitis 03/10/2021 Overview: recurrent episodes since pneumonia fall and winter of 2011 Inflammatory polyarthritis 11/15 documented as of this encounter (statuses as of 02/17/2023) [address]27-2021 History of Past illness Narrative* Problem Noted Date Diagnosed Date Resolved Date Asthmatic bronchitis Overview: recurrent episodes since pneumonia fall and winter of 2011 Inflammatory polyarthritis 0 11/15/2013 documented as of this encounter (statuses as of 02/26/2023) [address]27-2021 History of Past illness Narrative* Problem Noted Date Diagnosed Date Resolved Date Asthmatic bronchitis Overview: recurrent episodes since pneumonia fall and winter of 2011 Inflammatory polyarthritis 0 11/15/2013 documented as of this encounter (statuses as of 03/03/2023) [address]27-2021 History of Past illness Narrative* Problem Noted Date Diagnosed Date Resolved Date Asthmatic bronchitis Overview: recurrent episodes since pneumonia fall and winter of 2011 Inflammatory polyarthritis 0 11/15/2013 documented as of this encounter (statuses as of 03/17/2023) [address]27-2021 History of Past illness Narrative* Problem Noted Date Diagnosed Date Resolved Date Asthmatic bronchitis Overview: recurrent episodes since pneumonia fall and winter of 2011 Inflammatory polyarthritis 0 11/15/2013 documented as of this encounter (statuses as of 04/06/2023) [address]27-2021 History of Past illness Narrative* Problem Noted Date Diagnosed Date Resolved Date Asthmatic bronchitis Overview: recurrent episodes since pneumonia fall and winter of 2011 Inflammatory polyarthritis 0 11/15/2013 documented as of this encounter (statuses as of 04/06/2023) [address]27-2021 History of Past illness Narrative* Problem Noted Date Diagnosed Date Resolved Date Asthmatic bronchitis Overview: recurrent episodes since pneumonia fall and winter of 2011 Inflammatory polyarthritis 0 11/15/2013 documented as of this encounter (statuses as of 04/07/2023) [address]27-2021 History of Past illness Narrative* Problem Noted Date Diagnosed Date Resolved Date Asthmatic bronchitis Overview: recurrent episodes since pneumonia fall and winter of 2011 Inflammatory polyarthritis 0 11/15/2013 documented as of this encounter (statuses as of 04/12/2023) [address]27-2021 History of Past illness Narrative* Problem Noted Date Diagnosed Date Resolved Date Asthmatic bronchitis 021 Overview: recurrent episodes since pneumonia fall and winter of 2011 Inflammatory polyarthritis 0 11/15/2013 documented as of this encounter (statuses as of 04/13/2023) [address]27-2021 History of Past illness Narrative* Problem Noted Date Diagnosed Date Resolved Date Asthmatic bronchitis Overview: recurrent episodes since pneumonia fall and winter of 2011 Inflammatory polyarthritis 0 11/15/2013 documented as of this encounter (statuses as of 04/18/2023) [address]27-2021 History of Past illness Narrative* Problem Noted Date Diagnosed Date Resolved Date Asthmatic bronchitis Overview: recurrent episodes since pneumonia fall and winter of 2011 Inflammatory polyarthritis 0 11/15/2013 documented as of this encounter (statuses as of 04/18/2023) [address]27-2021 History of Past illness Narrative* Problem Noted Date Diagnosed Date Resolved Date Asthmatic bronchitis Overview: recurrent episodes since pneumonia fall and winter of 2011 Inflammatory polyarthritis 0 11/15/2013 documented as of this encounter (statuses as of 04/22/2023) [address]27-2021 History of Past illness Narrative* Problem Noted Date Diagnosed Date Resolved Date Asthmatic bronchitis Overview: recurrent episodes since pneumonia fall and winter of 2011 Inflammatory polyarthritis 0 11/15/2013 documented as of this encounter (statuses as of 04/26/2023) [address]27-2021 History of Past illness Narrative* Problem Noted Date Diagnosed Date Resolved Date Asthmatic bronchitis 07/27/2 021 Overview: recurrent episodes since pneumonia fall and winter of 2011 Inflammatory polyarthritis 0 11/15/2013 documented as of this encounter (statuses as of 05/21/2023) [address]27-2021 History of Past illness Narrative* Problem Noted Date Diagnosed Date Resolved Date Asthmatic bronchitis Overview: recurrent episodes since pneumonia fall and winter of 2011 Inflammatory polyarthritis 0 11/15/2013 documented as of this encounter (statuses as of 05/21/2023) [address]27-2021 History of Past illness Narrative* Problem Noted Date Diagnosed Date Resolved Date Asthmatic bronchitis Overview: recurrent episodes since pneumonia fall and winter of 2011 Inflammatory polyarthritis 0 11/15/2013 documented as of this encounter (statuses as of 05/25/2023) [address]27-2021 History of Past illness Narrative* Problem Noted Date Diagnosed Date Resolved Date Asthmatic bronchitis Overview: recurrent episodes since pneumonia fall and winter of 2011 Inflammatory polyarthritis 0 11/15/2013 documented as of this encounter (statuses as of 06/06/2023) [address]27-2021 History of Past illness Narrative* Problem Noted Date Diagnosed Date Resolved Date Asthmatic bronchitis Overview: recurrent episodes since pneumonia fall and winter of 2011 Inflammatory polyarthritis 0 11/15/2013 documented as of this encounter (statuses as of 06/06/2023) [address]27-2021 History of Past illness Narrative* Problem Noted Date Diagnosed Date Resolved Date Asthmatic bronchitis Overview: recurrent episodes since pneumonia fall and winter of 2011 Inflammatory polyarthritis 0 11/15/2013 documented as of this encounter (statuses as of 06/19/2023) [address]27-2021 History of Past illness Narrative* Problem Noted Date Diagnosed Date Resolved Date Asthmatic bronchitis Overview: recurrent episodes since pneumonia fall and winter of 2011 Inflammatory polyarthritis 0 11/15/2013 documented as of this encounter (statuses as of 06/22/2023) [address]27-2021 History of Past illness Narrative* Problem Noted Date Diagnosed Date Resolved Date Asthmatic bronchitis Overview: recurrent episodes since pneumonia fall and winter of 2011 Inflammatory polyarthritis 0 11/15/2013 documented as of this encounter (statuses as of 06/24/2023) [address]27-2021 History of Past illness Narrative* Problem Noted Date Diagnosed Date Resolved Date Asthmatic bronchitis Overview: recurrent episodes since pneumonia fall and winter of 2011 Inflammatory polyarthritis 0 11/15/2013 documented as of this encounter (statuses as of 07/04/2023) [address]27-2021 History of Past illness Narrative* Problem Noted Date Diagnosed Date Resolved Date Asthmatic bronchitis Overview: recurrent episodes since pneumonia fall and winter of 2011 Inflammatory polyarthritis 0 11/15/2013 documented as of this encounter (statuses as of 07/06/2023) [address]27-2021 History of Past illness Narrative* Problem Noted Date Diagnosed Date Resolved Date Asthmatic bronchitis Overview: recurrent episodes since pneumonia fall and winter of 2011 Inflammatory polyarthritis 0 11/15/2013 documented as of this encounter (statuses as of 07/22/2023) [address]27-2021 History of Past illness Narrative* Problem Noted Date Diagnosed Date Resolved Date Asthmatic bronchitis 021 Overview: recurrent episodes since pneumonia fall and winter of 2011 Inflammatory polyarthritis 0 11/15/2013 documented as of this encounter (statuses as of 07/26/2023) [address]27-2021 History of Past illness Narrative* Problem Noted Date Diagnosed Date Resolved Date Asthmatic bronchitis 021 Overview: recurrent episodes since pneumonia fall and winter of 2011 Inflammatory polyarthritis 0 11/15/2013 documented as of this encounter (statuses as of 07/29/2023) [facility]07-27-2021 History of Past illness Narrative* Problem Noted Date Diagnosed Date Resolved Date Asthmatic bronchitis Overview: recurrent episodes since pneumonia fall and winter of 2011 Inflammatory polyarthritis 0 11/15/2013 documented as of this encounter (statuses as of 08/21/2023) [facility]27-2021 History of Past illness Narrative* Problem Noted Date Diagnosed Date Resolved Date Asthmatic bronchitis Overview: recurrent episodes since pneumonia fall and winter of 2011 Inflammatory polyarthritis 0 11/15/2013 documented as of this encounter (statuses as of 09/23/2023) [facility]-2021 History of Past illness Narrative* Problem Noted Date Diagnosed Date Resolved Date Asthmatic bronchitis 021 Overview: recurrent episodes since pneumonia fall and winter of 2011 Inflammatory polyarthritis 0 11/15/2013 documented as of this encounter (statuses as of 10/14/2023) [facility]27-2021 History of Past illness Narrative* Problem Noted Date Diagnosed Date Resolved Date Asthmatic bronchitis Overview: recurrent episodes since pneumonia fall and winter of 2011 Inflammatory polyarthritis 0 11/15/2013 documented as of this encounter (statuses as of 10/25/2023) [facility]-2021 History of Past illness Narrative* Problem Noted Date Diagnosed Date Resolved Date Asthmatic bronchitis 021 Overview: recurrent episodes since pneumonia fall and winter of 2011 Inflammatory polyarthritis 0 11/15/2013 documented as of this encounter (statuses as of 10/28/2023) [facility]-26-2021 History of Present illness Narrative* Katelin King, RT(R) - 01/07/2021 8:00 AM EDT Radiology [...] 07, 2021 8:16 AM [facility] Present [facility] Narrative* Kristy AlanisCt) CT - 07/17/2020 10:15 AM EST Radiology Service [...] 17, 2020 10:24 AM documented in this [facility]10-22[facility] History of Present illness Narrative* Katelin KingRt) Tech - 06/05/2020 12:30 PM EDT Radiology [...] 05, 2020 12:35 PM [facility] Diagnosis Intractable chronic migraine without aura and without status migrainosus- Primary Chronic migraine without aura, with intractable migraine, so stated, without mention of status migrainosus [facility]* Diagnosis Neoplasm of uncertain behavior of skin- Primary Compound nevus of chest Benign neoplasm of skin of trunk, except scrotum [facility]* Diagnosis Obsessive-compulsive disorder, unspecified type [facility]* Diagnosis Encounter for IUD insertion- Primary Encounter for insertion of intrauterine contraceptive device [facility]* Diagnosis Left ankle strain, sequela- Primary Chronic pain of left ankle History of influenza Personal history of other infectious and parasitic disease [facility] Diagnosis COVID-19- Primary POTS (postural orthostatic tachycardia syndrome) Tachycardia, unspecified Chest wall discomfort Painful respiration [facility]* 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 [facility] Diagnosis Surveillance of previously prescribed intrauterine contraceptive device- Primary Intrauterine contraceptive device threads lost, initial encounter [facility] Diagnosis Inappropriate sinus node tachycardia Other specified cardiac dysrhythmias [facility] Diagnosis Intrauterine contraceptive device threads lost, initial encounter [facility] 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 [facility]* 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 [facility]* Diagnosis Moderate anxiety- Primary Moderate episode of recurrent major depressive disorder (HCC) documented in this encounter [facility] note* Diagnosis Migraine without status migrainosus, not intractable, unspecified migraine type- Primary IUD check up Surveillance of previously prescribed intrauterine contraceptive device Morbid obesity Periodic fever syndrome Familial Mediterranean fever [facility] Diagnosis Closed head injury, initial encounter- Primary Contusion of scalp, initial encounter Abrasion Abrasion or friction burn of other, multiple, and unspecified sites, without mention of infection Fall, initial encounter Injury of right ankle, initial encounter Sprain of right ankle, unspecified ligament, initial encounter Injury of right ankle, initial encounter documented in this encounter 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 Cough, unspecified type Class 3 severe obesity due to excess calories with body mass index (BMI) of 50.0 to 59.9 in adult, unspecified whether serious comorbidity present (HCC) [facility]* Diagnosis Acute cough- Primary Shortness of breath Wheezing documented in this encounter [facility] note* 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 [facility]* Diagnosis RLQ abdominal pain- Primary Abdominal pain, right lower quadrant documented [facility]* Diagnosis Pelvic pain in female- Primary Unspecified symptom associated with female genital organs Screen for STD (sexually transmitted disease) Screening examination for venereal disease Surveillance of previously prescribed intrauterine contraceptive device [facility]* Diagnosis Chronic migraine without aura, with intractable migraine, so stated, with status migrainosus- Primary documented in this encounter [facility] note* Diagnosis Obsessive-compulsive disorder, unspecified type- Primary PTSD (post-traumatic stress disorder) Posttraumatic stress disorder Recurrent major depressive disorder, in partial remission (HCC) Anxiety Anxiety state, unspecified POTS (postural orthostatic tachycardia syndrome) Tachycardia, unspecified Inappropriate sinus node tachycardia Other specified cardiac dysrhythmias Moderate persistent reactive airway disease with acute exacerbation [facility] Diagnosis Dog bite, initial encounter- [facility] Diagnosis 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 POTS (postural orthostatic tachycardia syndrome) Tachycardia, unspecified Inappropriate sinus node tachycardia Other specified cardiac dysrhythmias 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 [facility]* Diagnosis 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[facility]* 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 Immunosuppression (HCC) Unspecified disorder of immune mechanism [facility] PTSD (post-traumatic stress disorder)- [...] constipation and diarrhea [facility] Diagnosis Sore throat- Primary Acute pharyngitis Acute otitis media, left Unspecified otitis media [facility] 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 [facility] Diagnosis Encounter for gynecological examination (general) (routine) without abnormal findings- Primary Screening for STD (sexually transmitted disease) Screening examination for venereal disease [facility] 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 [facility] Diagnosis 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, chronic or unspecified [facility] Diagnosis 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, chronic or unspecified [facility] Diagnosis 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, chronic or unspecified documented in this encounter [facility] note* 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, chronic or unspecified documented in this encounter [facility] note* Diagnosis 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, chronic or unspecified documented in this encounter [facility] note* Diagnosis Treatment not available- Primary Procedure not carried out for other reasons documented in this encounter [facility] note* Diagnosis Laryngitis- Primary Acute laryngitis, without mention of obstruction Cough, unspecified type documented in this encounter [facility] note* Diagnosis Intractable chronic migraine without aura and without status migrainosus- Primary Chronic migraine without aura, with intractable migraine, so stated, without mention of status migrainosus documented in this encounter [facility] note* Diagnosis Other migraine without status migrainosus, intractable- Primary Abnormal EKG Nonspecific abnormal electrocardiogram (ECG) (EKG) POTS (postural orthostatic tachycardia syndrome) Tachycardia, unspecified Elevated TSH Nonspecific abnormal results of thyroid function study documented in this encounter [facility] note* Diagnosis Acute cystitis without hematuria- Primary Acute cystitis documented in this encounter [facility] note* Diagnosis Upper back pain- Primary [facility] Diagnosis Upper back pain- Primary Other acute gastritis without hemorrhage Fever, unspecified fever cause [facility]* Diagnosis Upper back pain Fever, unspecified fever cause [facility]* Diagnosis Obsessive-compulsive disorder, unspecified type [facility]* Diagnosis 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, 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 documented in this encounter [facility] note* Diagnosis Pelvic pain in female- Primary Unspecified symptom associated with female genital organs [facility] Diagnosis Pelvic pain in female Unspecified symptom associated with female genital organs documented in this encounter [facility] note* Diagnosis Atypical facial pain- Primary Atypical face pain Chronic migraine without aura, with intractable migraine, so stated, with status migrainosus [facility] 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 [facility] Diagnosis Screen for STD (sexually transmitted disease)- Primary Screening examination for venereal disease Chronic left shoulder pain Pain in joint, shoulder region [facility] Diagnosis Latex allergy- Primary Allergy to latex Vitamin D deficiency Unspecified vitamin D deficiency Elevated TSH Nonspecific abnormal results of thyroid function study Inappropriate sinus node tachycardia (HCC) Other specified cardiac dysrhythmias [facility]* Diagnosis POTS (postural orthostatic tachycardia syndrome)- Primary Tachycardia, unspecified [facility]* Diagnosis Toxic effect of latex, accidental (unintentional), subsequent encounter- Primary Seasonal allergic rhinitis due to pollen Adverse reaction to food, subsequent encounter Oral allergy syndrome, subsequent encounter [facility] Diagnosis Diarrhea, unspecified type- Primary Acute cough Bacterial sinusitis Unspecified sinusitis (chronic) [facility] Diagnosis Abnormal uterine bleeding (AUB)- Primary [facility]* Diagnosis Bilateral lower extremity edema- Primary Edema Intermittent diarrhea Class 3 severe obesity due to excess calories with body mass index (BMI) of 50.0 to 59.9 in adult, unspecified whether serious comorbidity present (HCC) Encounter for long-term current use of medication [facility] Diagnosis Encounter for gynecological examination (general) (routine) without abnormal findings- Primary Screening for cervical cancer Screening for malignant neoplasm of the cervix Encounter for screening for human papillomavirus (HPV) Special screening examination for human papillomavirus (HPV) Cervical high risk human papillomavirus (HPV) DNA test positive Pelvic pain in female Unspecified symptom associated with female genital organs [facility]* Diagnosis 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, chronic or unspecified Immunosuppression (HCC) Unspecified disorder of immune mechanism Vitamin D deficiency Unspecified vitamin D deficiency [facility]* Diagnosis Cervical high risk HPV (human [...] and 58 administered documented in this encounter [facility] note* Diagnosis Need for prophylactic vaccination/inoculation against viral disease- Primary Need for prophylactic vaccination and inoculation against other viral diseases [facility] Diagnosis Need for prophylactic vaccination/inoculation against viral disease- Primary Need for prophylactic vaccination and inoculation against other viral diseases [facility]* Diagnosis 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, chronic or unspecified Chest pain, unspecified type 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, chronic or unspecified Chest pain, unspecified type [facility]* Diagnosis Vitamin D deficiency- Primary Unspecified vitamin D deficiency Class 3 severe obesity due to excess calories with body mass index (BMI) of 50.0 to 59.9 in adult, unspecified whether serious comorbidity present (HCC) [facility]* Diagnosis Costochondritis Tietze's disease [facility]* 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 [facility]* 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 [facility]* Diagnosis 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, chronic or unspecified Chest pain, unspecified type [facility]* Diagnosis Chronic left shoulder pain Pain in joint, shoulder region [facility]* Diagnosis Bilateral hip pain- Primary Pain in joint, pelvic region and thigh Chronic pain of both knees POTS (postural orthostatic tachycardia syndrome) Tachycardia, unspecified Arthritis Arthropathy, unspecified, site unspecified Mobility poor Other ill-defined conditions [facility]* Diagnosis Bilateral hip pain Pain in joint, pelvic region and thigh Chronic pain of both knees POTS (postural orthostatic tachycardia syndrome) Tachycardia, unspecified Arthritis Arthropathy, unspecified, site unspecified [facility]* Diagnosis History of eating disorder- Primary [...] syndrome) Tachycardia, unspecified [facility]* Diagnosis Left ankle pain, unspecified chronicity [facility]* Diagnosis Acute left ankle pain Foot pain, left Pain in limb [facility]* 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, chronic or unspecified [facility]* Diagnosis Left wrist pain Pain in joint, forearm Acute pain of left shoulder [facility]* Diagnosis Chronic sinusitis, unspecified location [facility]* Diagnosis Cough [facility]* 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 [facility]* 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 Pain in joint, multiple sites Other chest pain Palpitations [facility]* 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, chronic or unspecified [facility]* 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 [facility]* Diagnosis Epigastric abdominal pain- Primary Abdominal pain, epigastric Heartburn [facility]* Diagnosis Acute recurrent sinusitis, unspecified location- Primary [facility]* 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, chronic or unspecified Immunosuppression (HCC) Unspecified disorder of immune mechanism [facility] Diagnosis Dietary counseling and surveillance- Primary Dietary surveillance and counseling Bulimia nervosa, unspecified severity Eating disorder, unspecified type Obesity, Class III, BMI 40-49.9 (morbid obesity) (HCC) Morbid obesity [facility]* 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 [facility]* Diagnosis PVC (premature ventricular contraction)- Primary Other premature beats Panic attacks Panic disorder without agoraphobia Panic disorder with agoraphobia Agoraphobia with panic disorder PTSD (post-traumatic stress disorder) Posttraumatic stress disorder Postural orthostatic tachycardia syndrome (POTS) Pleurisy Pleurisy without mention of effusion or current tuberculosis [facility]* Diagnosis Situational anxiety- Primary Other anxiety states [facility]* Diagnosis URI, acute- Primary Acute upper respiratory infections of unspecified site Acute cough Acute cough URI, acute Acute upper respiratory infections of unspecified site [facility]* Diagnosis Acute cough URI, acute Acute upper respiratory infections of unspecified site [facility]* Diagnosis Injury of left wrist, initial encounter- Primary [facility]* Diagnosis Laceration of left hand without foreign body, initial encounter- Primary [facility]* Diagnosis Vitamin D deficiency- Primary Unspecified vitamin D deficiency Other fatigue Myalgias Polyarthritis Unspecified polyarthropathy or polyarthritis, site unspecified Muscle weakness (generalized) Abnormal TSH Other abnormal clinical finding [facility]* Diagnosis Pharyngitis, unspecified etiology- Primary [facility]* Diagnosis Sore throat- Primary Acute pharyngitis Exudative tonsillitis [facility]* Diagnosis 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, 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 [facility]* Diagnosis 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, chronic or unspecified Immunosuppression (HCC) Unspecified disorder of immune mechanism [facility] Diagnosis Acute non-recurrent maxillary sinusitis- Primary Sore throat Acute pharyngitis documented in this encounter [facility] note* Diagnosis Panic disorder with agoraphobia- Primary Agoraphobia with panic disorder Immunosuppression (HCC) 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 Gastroenteritis Other and unspecified noninfectious gastroenteritis and colitis documented in this encounter [facility] note* Diagnosis Gastroenteritis- Primary Other and unspecified noninfectious gastroenteritis and colitis documented in this encounter [facility] for referral (narrative)* Outpatient Procedure (Routine) - Pending Review Specialty Diagnoses / Procedures Referred By Christie hidalgo Referred To Contact [facility] Diagnoses Encounter for IUD insertion Procedures INSERT INTRAUTERINE DEVICE LEVONORGESTREL IU 52MG 5 YR INSERT INTRAUTERINE DEVICE Ayaan Rowley APRN.CNM [address] [place] [address] [facility] [address] [place] [address] Referral ID Status Reason Start Date Expiration Date Visits Requested Visits Authorized [id number] Pending Review Auto-Generat ed Referral 12/04/2021 12/04/2022 1 1 T [facility] for referral (narrative)* Diagnostic Procedure Only (Routine) - Authorized Specialty Diagnoses / Procedures Referred By Christie hidalgo Referred To Contact [facility] Diagnoses Intrauterine contraceptive device threads lost, initial encounter Procedures US FEMALE PELVIS TRANSVAG US TRANSVAGINAL Ayaan Rowley APRN.CNM [address] [place] [address] [facility] Referral ID Status Reason Start Date Expiration Date Visits Requested Visits Authorized [id number] Authorized Auto-Generat ed Referral 01/20/2022 02/12/2023 1 1 T [facility] for referral (narrative)* Diagnostic Procedure Only (Routine) - Closed Specialty Diagnoses / Procedures Referred By Christie hidalgo Referred To Contact [facility] Diagnoses Intrauterine contraceptive device threads lost, initial encounter Procedures US FEMALE PELVIS TRANSVAG US TRANSVAGINAL Ayaan Rowley APRN.CNM [address] [place] [address] [facility] Referral ID Status Reason Start Date Expiration Date V isits Requested Visits Authorized [id number] Closed Auto-Generate d Referral 01/20/2022 02/12/2023 1 1 [facility] for referral (narrative)* Consultation (Routine) - New Request Specialty Diagnoses / Procedures Referred By Contac t Referred To Contact Gynecology Diagnoses IUD check up Mario Vazquez MBBS [address] [address] Referral ID Status Reason Start Date Expiration Date V isits Requested Visits Authorized [id number] New Request 04/16/2022 05/11/2023 1 1 [facility] for referral (narrative)* Outpatient Procedure (Routine) - Closed Specialty Diagnoses / Procedures Referred By Contac t Referred To [facility] Diagnoses Abnormal EKG POTS (postural orthostatic tachycardia syndrome) Procedures ECG COMPLETE ECG ROUTINE ECG W/LEAST 12 LDS W/I&R Genaro Morales APRN.CNS [address] [place] [address] [facility] [address] [place] [address] Referral ID Status Reason Start Date Expiration Date V isits Requested Visits Authorized [id number] Closed Auto-Generate d Referral 05/20/2023 05/19/2024 1 1 * Consult, Test, Treat (Routine) - Authorized Specialty Diagnoses / Procedures Referred By Contac t Referred To Contact Cardiology Diagnoses Abnormal EKG POTS (postural orthostatic tachycardia syndrome) Procedures CONSULT TO CARDIOLOGY OFFICE/OUTPATIENT NEW HIGH MDM 60-74 MINUTES Genaro Morales APRN.ICE HOCKEY COACH [address] [place] [address] Referral ID Status Reason Start Date Expiration Date Visits Requested Visits Authorized [id number] Authorized PCP Requested Referral 05/20/2023 05/19/2024 1 1 [facility] for referral (narrative)* Diagnostic Procedure Only (Routine) - Authorized Specialty Diagnoses / Procedures Referred By Contac t Referred To Contact [facility] Diagnoses Pelvic pain in female Procedures PELVIC US WHI US PELVIC NONOBSTETRIC REAL-[place] [address] [place] [address] [facility] [address] [place] [address] Referral ID Status Reason Start Date Expiration Date Visits Requested Visits Authorized [id number] Authorized Auto-Generat ed Referral 07/22/2023 07/21/2024 1 1 [facility] for referral (narrative)* Diagnostic Procedure Only (Routine) - Closed Specialty Diagnoses / Procedures Referred By Contac t Referred To Contact [facility] Diagnoses Chronic left shoulder pain Procedures XR SHOULDER LIMITED 2V AP/TRUE AP LEFT RADEX SHOULDER COMPLETE MINIMUM 2 VIEWS Genaro Morales APRN.ICE HOCKEY COACH [address] [place] [address] [place] [address] Referral ID Status Reason Start Date Expiration Date V isits Requested Visits Authorized [id number] Closed Auto-Generate d Referral 10/14/2023 11/12/2024 1 1 * Physical Therapy (Routine) - Pending Review Specialty Diagnoses / Procedures Referred By Contac t Referred To Contact [facility] Diagnoses Chronic left shoulder pain Procedures CONSULT TO PHYSICAL THERAPY PHYSICAL THERAPY EVALUATION HIGH COMPLEX 45 MINS Genaro Morales APRN.ICE HOCKEY COACH [address] [place] [address] [facility] [address] [address] Referral ID Status Reason Start Date Expiration Date Visits Requested Visits Authorized [id number] Pending Review Auto-Generat ed Referral 10/14/2023 10/13/2024 1 1 [facility] for referral (narrative)* Outpatient Procedure (Routine) - New Request Specialty Diagnoses / Procedures Referred By Contac t Referred To Contact [facility] Diagnoses Pelvic pain in female Procedures REMOVE INTRAUTERINE DEVICE REMOVE INTRAUTERINE DEVICE Ayaan Rowley APRN.CNM [address] [place] [address] [address] Referral ID Status Reason Start Date Expiration Date Visits Requested Visits Authorized [id number] New Request Auto-Generat ed Referral 02/27/2024 02/26/2025 1 1 [facility] for referral (narrative)* Outpatient Procedure (Routine) - Authorized Specialty Diagnoses / Procedures Referred By Contac t Referred To Contact [facility] Diagnoses Cervical high risk HPV (human papillomavirus) test positive Procedures COLPOSCOPY COLPOSCOPY CERVIX BX CERVIX & ENDOCRV CURRETAGE Nani Freeman APRN.CNP [address] [place] [address] [address] Referral ID Status Reason Start Date Expiration Date Visits Requested Visits Authorized [id number] Authorized Auto-Generat ed Referral 03/12/2024 03/12/2025 1 1 [facility] for referral (narrative)* Diagnostic Procedure Only (Routine) - Closed Specialty Diagnoses / Procedures Referred By Contac t Referred To Contact [facility] Diagnoses Chronic left shoulder pain Procedures XR SHOULDER LIMITED 2V AP/TRUE AP LEFT RADEX SHOULDER COMPLETE MINIMUM 2 VIEWS Genaro Morales APRN.CNS [address] [place] [address] [place] [address] Referral ID Status Reason Start Date Expiration Date V isits Requested Visits Authorized [id number] Closed Auto-Generate d Referral 10/14/2023 11/12/2024 1 1 [facility] for referral (narrative)* Diagnostic Procedure Only (Routine) - Closed Specialty Diagnoses / Procedures Referred By Contac t Referred To Contact [facility] Diagnoses Left ankle pain, unspecified chronicity Procedures XR ANKLE GENERAL 3V AP/LAT/OBL LEFT RADEX ANKLE COMPLETE MINIMUM 3 VIEWS Irwin Campbell MD [address] [place] [address] [place] [address] Referral ID Status Reason Start Date Expiration Date V isits Requested Visits Authorized [id number] Closed Auto-Generate d Referral 09/16/2021 10/16/2022 1 1 [facility] for referral (narrative)* Diagnostic Procedure Only (Urgent) - Closed Specialty Diagnoses / Procedures Referred By Contac t Referred To Contact [facility] Diagnoses Foot pain, left Procedures XR FOOT GENERAL 3V AP/LAT/OBL LEFT X-RAY FOOT MINIMUM 3 VIEWS Rosaura Santacruz APRN.SAFETY COUNCIL DIRECTOR [address] [place] [address] [place] [address] Referral ID Status Reason Start Date Expiration Date V isits Requested Visits Authorized [id number] Closed Auto-Generate d Referral 08/05/2021 09/04/2022 1 1 * Diagnostic Procedure Only (Urgent) - Closed Specialty Diagnoses / Procedures Referred By Contac t Referred To Contact [facility] Diagnoses Acute left ankle pain Procedures XR ANKLE GENERAL 3V AP/LAT/OBL LEFT X-RAY ANKLE MINIMUM 3 VIEWS Rosaura Santacruz, BLADE SHARPENER.SAFETY COUNCIL DIRECTOR [address] [place] [address] Xr [place] [address] Referral ID Status Reason Start Date Expiration Date V isits Requested Visits Authorized [id number] Closed Auto-Generate d Referral 08/05/2021 09/04/2022 1 1 [facility] for referral (narrative)* Diagnostic Procedure Only (Routine) - Closed Specialty Diagnoses / Procedures Referred By Contac t Referred To Contact CT IMAGING Diagnoses Chronic sinusitis, unspecified location Procedures CT SINUS WO IVCON CT MAXLFCL AREA [facility] [address] [place] [address] Ct Imaging [facility] Referral ID Status Reason Start Date Expiration Date V isits Requested Visits Authorized [id number] Closed Auto-Generate d Referral 06/27/2020 08/25/2020 3 3 [facility] for visit Narrative* Diagnostic Procedure Only (Routine) - Closed Specialty Diagnoses / Procedures Referred By Contac t Referred To Contact US IMAGING Diagnoses Intrauterine contraceptive device threads lost, initial encounter Procedures US FEMALE PELVIS TRANSVAG US TRANSVAGINAL Ayaan Rowley APRN.CNM [address] [place] [address] Us Imaging Referral ID Status Reason Start Date Expiration Date V isits Requested Visits Authorized [id number] Closed Auto-Generate d Referral 01/20/2022 02/12/2023 1 1 [facility] for visit Narrative* Diagnostic Procedure Only (Routine) - Closed Specialty Diagnoses / Procedures Referred By Contac t Referred To Contact [facility] Diagnoses Pelvic pain in female Procedures PELVIC US WHI US PELVIC NONOBSTETRIC REAL-[place] [address] [place] [address] [facility] [address] [place] [address] Referral ID Status Reason Start Date Expiration Date V isits Requested Visits Authorized [id number] Closed Auto-Generate d Referral 07/22/2023 07/21/2024 1 1 [facility] for visit Narrative* Diagnostic Procedure Only (Routine) - Closed Specialty Diagnoses / Procedures Referred By Contac t Referred To Contact Radiology / [facility] Diagnoses ML Procedures XR CHEST Silvia Tucker MD [address] [place] [address] Radio [facility] [address] [place] [address] Referral ID Status Reason Start Date Expiration Date Visits Re quested Visits Authorized [id number] Closed 04/02/2024 08/14/2024 1 1 [facility] for visit Narrative* Diagnostic Procedure Only (Routine) - Closed Specialty Diagnoses / Procedures Referred By Contac t Referred To Contact XR IMAGING Diagnoses Chronic left shoulder pain Procedures XR SHOULDER GICHKBE2K AP/TRUE AP RIGHT RADEX SHOULDER COMPLETE MINIMUM 2 VIEWS Genaro Morales APRN.ICE HOCKEY COACH [address] [place] [address] [place] [address] Referral ID Status Reason Start Date Expiration Date V isits Requested Visits Authorized [id number] Closed Auto-Generate d Referral 10/14/2023 11/12/2024 1 1 [facility] for visit Narrative* Diagnostic Procedure Only (Routine) - Closed Specialty Diagnoses / Procedures Referred By Contac t Referred To Contact XR IMAGING Diagnoses Left ankle pain, unspecified chronicity Procedures XR ANKLE GENERAL 3V AP/LAT/OBL LEFT RADEX ANKLE COMPLETE MINIMUM 3 VIEWS Irwin Campbell MD [address] [place] [address] [place] [address] Referral ID Status Reason Start Date Expiration Date V isits Requested Visits Authorized [id number] Closed Auto-Generate d Referral 09/16/2021 10/16/2022 [facility] Procedure Only (Urgent) - Closed Specialty Diagnoses / Procedures Referred By Contac t Referred To Contact XR IMAGING Diagnoses Foot pain, left Procedures XR FOOT GENERAL 3V AP/LAT/OBL LEFT X-RAY FOOT MINIMUM 3 VIEWS Rosaura Santacruz BLADE SHARPENER.SAFETY COUNCIL DIRECTOR [address] [place] [address] [place] [address] Referral ID Status Reason Start Date Expiration Date V isits Requested Visits Authorized [id number] Closed Auto-Generate d Referral 08/05/2021 09/04/2022 1 [facility] Diagnostic Procedure Only (Urgent) - Closed Specialty Diagnoses / Procedures Referred By Contac t Referred To Contact XR IMAGING Diagnoses Injury of left wrist, initial encounter Procedures XR WRIST GENERAL 3V PA/LAT/OBL LEFT RADEX WRIST COMPLETE MINIMUM 3 VIEWS Steven Harris BLADE SHARPENER.SAFETY COUNCIL DIRECTOR [address] [place] [address] Phone: tel: fax: [place] [address] Referral ID Status Reason Start Date Expiration Date V isits Requested Visits Authorized [id number] Closed Auto-Generate d Referral 10/24/2024 11/23/2025 1 1 [facility] Summary Purpose Family History No Family History [...] Referral Specialty Diagnoses / Procedures Referred By Christie hidalgo Referred To Contact MR IMAGING Diagnoses Chronic pain of left ankle Procedures MRI ANKLE WO IVCON LT MRI ANY JT LOWER EXTREM W/O CONTRAST MATRL Faustina Carcamo MD [address] [id number] Mr Imaging Referral ID Status Reason Start Date Expiration Date V isits Requested Visits Authorized [id number] Closed Auto-Generate d Referral 09/22/2021 10/22/2022 1 1 Specialty Diagnoses / Procedures Referred By Christie hidalgo Referred To Contact Podiatry Diagnoses Left ankle strain, sequela Procedures CONSULT TO PODIATRY OFFICE/OUTPATIENT [facility] 60-74 MINUTES Faustina Carcamo MD [address] [place] [address] [address] [place] [address] Referral ID Status Reason Start Date Expiration Date V isits Requested Visits Authorized [id number] Closed PCP Requested Referral 09/22/2021 09/22/2022 1 1 Specialty Diagnoses / Procedures Referred By Christie hidalgo Referred To Contact Diagnoses RLQ abdominal pain Procedures CT ABDOMEN/PELVIS WITH CONTRAST CHG CT SCAN,ABDOMENT AND PELVIS,W CONTRAST Marina Goodrich T, BLADE SHARPENER-SAFETY COUNCIL DIRECTOR [address] [place] [address] Referral ID Status Reason Start Date Expiration Date Visits Re quested Visits Authorized [id number] Closed 06/28/2022 07/23/2023 1 1 Specialty Diagnoses / Procedures Referred By Contac t Referred To Contact Diagnoses Vitamin D deficiency Class 3 severe obesity due to excess calories with body mass index (BMI) of 50.0 to 59.9 in adult, unspecified whether serious comorbidity present (HCC) Procedures CONSULT TO PSYCHIATRY OFFICE/OUTPATIENT [facility] 60 MINUTES Genaro Morales, BLADE SHARPENER.ICE HOCKEY COACH [address] [place] [address] Referral ID Status Reason Start Date Expiration Date Visits Requested Visits Authorized [id number] Pending Review PCP Requested Referral 04/03/2024 04/03/2025 1 1 Specialty Diagnoses / Procedures Referred By Contac t Referred To Contact Nutrition Diagnoses Class 3 severe obesity due to excess calories with body mass index (BMI) of 50.0 to 59.9 in adult, unspecified whether serious comorbidity present (HCC) Procedures CONSULT TO NUTRITION THERAPY MEDICAL NUTRITION ASSMT&IVNTJ INDIV EACH 15 SC Genaro Morales, BLADE SHARPENER.ICE HOCKEY COACH [address] [place] [address] Referral ID Status Reason Start Date Expiration Date Visits Requested Visits Authorized [id number] Authorized PCP Requested Referral 04/03/2024 04/03/2025 1 4 Additional Source Comments INFORMATION SOURCE (unrecogn ized section and content) DATE CREATED AUTHOR 11/03/2021 [facility] DATE CREATED AUTHOR AUTHOR'S ORGANIZ ATION 05/15/2022 [facility] DATE CREATED AUTHOR AUTHOR'S ORGANIZ ATION 07/24/2022 [facility] DATE CREATED AUTHOR AUTHOR'S ORGANIZ ATION 08/06/2022 [facility] DATE CREATED AUTHOR AUTHOR'S ORGANIZ ATION 09/21/2022 [facility] DATE CREATED AUTHOR AUTHOR'S ORGANIZ ATION 05/29/2023 [facility] DATE CREATED AUTHOR AUTHOR'S ORGANIZ ATION 06/01/2023 [facility] DATE CREATED AUTHOR AUTHOR'S ORGANIZ ATION 08/04/2024 [facility] DATE CREATED AUTHOR AUTHOR'S ORGANIZ ATION 01/11/2025 [facility] DATE CREATED AUTHOR AUTHOR'S ORGANIZ ATION 01/23/2025 [facility] Source Comments (unrecognize d section and content) In the event this informatio n is protected by the [facility] Confidentiality of Alcohol and Drug Abuse Patient Records regulations: The Federal rules restrict any use of the information to criminally investigate or prosecute any alcohol or drug abuse patient.[facility] Center[facility] the event this information is protected by the Federal Confidentiality of Alcohol and Drug Abuse Patient Records regulations: The Federal rules restrict any use of the information to criminally investigate or prosecute any alcohol or drug abuse patient.[facility] CenterIn the event this information is protected by the Federal Confidentiality of Alcohol and Drug Abuse Patient Records regulations: The Federal rules restrict any use of the information to criminally investigate or prosecute any alcohol or drug abuse patient.[facility] CenterIn the event this information is protected by the Federal Confidentiality of Alcohol and Drug Abuse Patient Records regulations: The Federal rules restrict any use of the information to criminally investigate or prosecute any alcohol or drug abuse patient.[facility] CenterIn the event this information is protected by the Federal Confidentiality of Alcohol and Drug Abuse Patient Records regulations: The Federal rules restrict any use of the information to criminally investigate or prosecute any alcohol or drug abuse patient.[facility] CenterIn the event this information is protected by the Federal Confidentiality of Alcohol and Drug Abuse Patient Records regulations: The Federal rules restrict any use of the information to criminally investigate or prosecute any alcohol or drug abuse patient.[facility] CenterIn the event this information is protected by the Federal Confidentiality of Alcohol and Drug Abuse Patient Records regulations: The Federal rules restrict any use of the information to criminally investigate or prosecute any alcohol or drug abuse patient.[facility] CenterIn the event this information is protected by the Federal Confidentiality of Alcohol and Drug Abuse Patient Records regulations: The Federal rules restrict any use of the information to criminally investigate or prosecute any alcohol or drug abuse patient.[facility] CenterIn the event this information is protected by the Federal Confidentiality of Alcohol and Drug Abuse Patient Records regulations: The Federal rules restrict any use of the information to criminally investigate or prosecute any alcohol or drug abuse patient.[facility] CenterIn the event this information is protected by the Federal Confidentiality of Alcohol and Drug Abuse Patient Records regulations: The Federal rules restrict any use of the information to criminally investigate or prosecute any alcohol or drug abuse patient.[facility] CenterIn the event this information is protected by the Federal Confidentiality of Alcohol and Drug Abuse Patient Records regulations: The Federal rules restrict any use of the information to criminally investigate or prosecute any alcohol or drug abuse patient.[facility] CenterIn the event this information is protected by the Federal Confidentiality of Alcohol and Drug Abuse Patient Records regulations: The Federal rules restrict any use of the information to criminally investigate or prosecute any alcohol or drug abuse patient.[facility] CenterIn the event this information is protected by the Federal Confidentiality of Alcohol and Drug Abuse Patient Records regulations: The Federal rules restrict any use of the information to criminally investigate or prosecute any alcohol or drug abuse patient.[facility] CenterIn the event this information is protected by the Federal Confidentiality of Alcohol and Drug Abuse Patient Records regulations: The Federal rules restrict any use of the information to criminally investigate or prosecute any alcohol or drug abuse patient.[facility] CenterIn the event this information is protected by the Federal Confidentiality of Alcohol and Drug Abuse Patient Records regulations: The Federal rules restrict any use of the information to criminally investigate or prosecute any alcohol or drug abuse patient.[facility] CenterIn the event this information is protected by the Federal Confidentiality of Alcohol and Drug Abuse Patient Records regulations: The Federal rules restrict any use of the information to criminally investigate or prosecute any alcohol or drug abuse patient.[facility] CenterIn the event this information is protected by the Federal Confidentiality of Alcohol and Drug Abuse Patient Records regulations: The Federal rules restrict any use of the information to criminally investigate or prosecute any alcohol or drug abuse patient.[facility] CenterIn the event this information is protected by the Federal Confidentiality of Alcohol and Drug Abuse Patient Records regulations: The Federal rules restrict any use of the information to criminally investigate or prosecute any alcohol or drug abuse patient.[facility] CenterIn the event this information is protected by the Federal Confidentiality of Alcohol and Drug Abuse Patient Records regulations: The Federal rules restrict any use of the information to criminally investigate or prosecute any alcohol or drug abuse patient.[facility] CenterIn the event this information is protected by the Federal Confidentiality of Alcohol and Drug Abuse Patient Records regulations: The Federal rules restrict any use of the information to criminally investigate or prosecute any alcohol or drug abuse patient.[facility] CenterIn the event this information is protected by the Federal Confidentiality of Alcohol and Drug Abuse Patient Records regulations: The Federal rules restrict any use of the information to criminally investigate or prosecute any alcohol or drug abuse patient.[facility] CenterIn the event this information is protected by the Federal Confidentiality of Alcohol and Drug Abuse Patient Records regulations: The Federal rules restrict any use of the information to criminally investigate or prosecute any alcohol or drug abuse patient.[facility] CenterIn the event this information is protected by the Federal Confidentiality of Alcohol and Drug Abuse Patient Records regulations: The Federal rules restrict any use of the information to criminally investigate or prosecute any alcohol or drug abuse patient.[facility] CenterIn the event this information is protected by the Federal Confidentiality of Alcohol and Drug Abuse Patient Records regulations: The Federal rules restrict any use of the information to criminally investigate or prosecute any alcohol or drug abuse patient.[facility] CenterIn the event this information is protected by the Federal Confidentiality of Alcohol and Drug Abuse Patient Records regulations: The Federal rules restrict any use of the information to criminally investigate or prosecute any alcohol or drug abuse patient.[facility] CenterIn the event this information is protected by the Federal Confidentiality of Alcohol and Drug Abuse Patient Records regulations: The Federal rules restrict any use of the information to criminally investigate or prosecute any alcohol or drug abuse patient.[facility] CenterIn the event this information is protected by the Federal Confidentiality of Alcohol and Drug Abuse Patient Records regulations: The Federal rules restrict any use of the information to criminally investigate or prosecute any alcohol or drug abuse patient.[facility] CenterIn the event this information is protected by the Federal Confidentiality of Alcohol and Drug Abuse Patient Records regulations: The Federal rules restrict any use of the information to criminally investigate or prosecute any alcohol or drug abuse patient.[facility] CenterIn the event this information is protected by the Federal Confidentiality of Alcohol and Drug Abuse Patient Records regulations: The Federal rules restrict any use of the information to criminally investigate or prosecute any alcohol or drug abuse patient.[facility] CenterIn the event this information is protected by the Federal Confidentiality of Alcohol and Drug Abuse Patient Records regulations: The Federal rules restrict any use of the information to criminally investigate or prosecute any alcohol or drug abuse patient.[facility] CenterIn the event this information is protected by the Federal Confidentiality of Alcohol and Drug Abuse Patient Records regulations: The Federal rules restrict any use of the information to criminally investigate or prosecute any alcohol or drug abuse patient.[facility] CenterIn the event this information is protected by the Federal Confidentiality of Alcohol and Drug Abuse Patient Records regulations: The Federal rules restrict any use of the information to criminally investigate or prosecute any alcohol or drug abuse patient.[facility] CenterIn the event this information is protected by the Federal Confidentiality of Alcohol and Drug Abuse Patient Records regulations: The Federal rules restrict any use of the information to criminally investigate or prosecute any alcohol or drug abuse patient.[facility] CenterIn the event this information is protected by the Federal Confidentiality of Alcohol and Drug Abuse Patient Records regulations: The Federal rules restrict any use of the information to criminally investigate or prosecute any alcohol or drug abuse patient.[facility] CenterIn the event this information is protected by the Federal Confidentiality of Alcohol and Drug Abuse Patient Records regulations: The Federal rules restrict any use of the information to criminally investigate or prosecute any alcohol or drug abuse patient.[facility] CenterIn the event this information is protected by the Federal Confidentiality of Alcohol and Drug Abuse Patient Records regulations: The Federal rules restrict any use of the information to criminally investigate or prosecute any alcohol or drug abuse patient.[facility] CenterIn the event this information is protected by the Federal Confidentiality of Alcohol and Drug Abuse Patient Records regulations: The Federal rules restrict any use of the information to criminally investigate or prosecute any alcohol or drug abuse patient.[facility] CenterIn the event this information is protected by the Federal Confidentiality of Alcohol and Drug Abuse Patient Records regulations: The Federal rules restrict any use of the information to criminally investigate or prosecute any alcohol or drug abuse patient.[facility] CenterIn the event this information is protected by the Federal Confidentiality of Alcohol and Drug Abuse Patient Records regulations: The Federal rules restrict any use of the information to criminally investigate or prosecute any alcohol or drug abuse patient.[facility] CenterIn the event this information is protected by the Federal Confidentiality of Alcohol and Drug Abuse Patient Records regulations: The Federal rules restrict any use of the information to criminally investigate or prosecute any alcohol or drug abuse patient.[facility] CenterIn the event this information is protected by the Federal Confidentiality of Alcohol and Drug Abuse Patient Records regulations: The Federal rules restrict any use of the information to criminally investigate or prosecute any alcohol or drug abuse patient.[facility] CenterIn the event this information is protected by the Federal Confidentiality of Alcohol and Drug Abuse Patient Records regulations: The Federal rules restrict any use of the information to criminally investigate or prosecute any alcohol or drug abuse patient.[facility] CenterIn the event this information is protected by the Federal Confidentiality of Alcohol and Drug Abuse Patient Records regulations: The Federal rules restrict any use of the information to criminally investigate or prosecute any alcohol or drug abuse patient.[facility] CenterIn the event this information is protected by the Federal Confidentiality of Alcohol and Drug Abuse Patient Records regulations: The Federal rules restrict any use of the information to criminally investigate or prosecute any alcohol or drug abuse patient.[facility] CenterIn the event this information is protected by the Federal Confidentiality of Alcohol and Drug Abuse Patient Records regulations: The Federal rules restrict any use of the information to criminally investigate or prosecute any alcohol or drug abuse patient.[facility] CenterIn the event this information is protected by the Federal Confidentiality of Alcohol and Drug Abuse Patient Records regulations: The Federal rules restrict any use of the information to criminally investigate or prosecute any alcohol or drug abuse patient.[facility] CenterIn the event this information is protected by the Federal Confidentiality of Alcohol and Drug Abuse Patient Records regulations: The Federal rules restrict any use of the information to criminally investigate or prosecute any alcohol or drug abuse patient.[facility] CenterIn the event this information is protected by the Federal Confidentiality of Alcohol and Drug Abuse Patient Records regulations: The Federal rules restrict any use of the information to criminally investigate or prosecute any alcohol or drug abuse patient.[facility] CenterIn the event this information is protected by the Federal Confidentiality of Alcohol and Drug Abuse Patient Records regulations: The Federal rules restrict any use of the information to criminally investigate or prosecute any alcohol or drug abuse patient.[facility] CenterIn the event this information is protected by the Federal Confidentiality of Alcohol and Drug Abuse Patient Records regulations: The Federal rules restrict any use of the information to criminally investigate or prosecute any alcohol or drug abuse patient.[facility] CenterIn the event this information is protected by the Federal Confidentiality of Alcohol and Drug Abuse Patient Records regulations: The Federal rules restrict any use of the information to criminally investigate or prosecute any alcohol or drug abuse patient.[facility] CenterIn the event this information is protected by the Federal Confidentiality of Alcohol and Drug Abuse Patient Records regulations: The Federal rules restrict any use of the information to criminally investigate or prosecute any alcohol or drug abuse patient.[facility] CenterIn the event this information is protected by the Federal Confidentiality of Alcohol and Drug Abuse Patient Records regulations: The Federal rules restrict any use of the information to criminally investigate or prosecute any alcohol or drug abuse patient.[facility] CenterIn the event this information is protected by the Federal Confidentiality of Alcohol and Drug Abuse Patient Records regulations: The Federal rules restrict any use of the information to criminally investigate or prosecute any alcohol or drug abuse patient.[facility] CenterIn the event this information is protected by the Federal Confidentiality of Alcohol and Drug Abuse Patient Records regulations: The Federal rules restrict any use of the information to criminally investigate or prosecute any alcohol or drug abuse patient.[facility] CenterIn the event this information is protected by the Federal Confidentiality of Alcohol and Drug Abuse Patient Records regulations: The Federal rules restrict any use of the information to criminally investigate or prosecute any alcohol or drug abuse patient.[facility] CenterIn the event this information is protected by the Federal Confidentiality of Alcohol and Drug Abuse Patient Records regulations: The Federal rules restrict any use of the information to criminally investigate or prosecute any alcohol or drug abuse patient.[facility] CenterIn the event this information is protected by the Federal Confidentiality of Alcohol and Drug Abuse Patient Records regulations: The Federal rules restrict any use of the information to criminally investigate or prosecute any alcohol or drug abuse patient.[facility] CenterIn the event this information is protected by the Federal Confidentiality of Alcohol and Drug Abuse Patient Records regulations: The Federal rules restrict any use of the information to criminally investigate or prosecute any alcohol or drug abuse patient.[facility] CenterIn the event this information is protected by the Federal Confidentiality of Alcohol and Drug Abuse Patient Records regulations: The Federal rules restrict any use of the information to criminally investigate or prosecute any alcohol or drug abuse patient.[facility] CenterIn the event this information is protected by the Federal Confidentiality of Alcohol and Drug Abuse Patient Records regulations: The Federal rules restrict any use of the information to criminally investigate or prosecute any alcohol or drug abuse patient.[facility] CenterIn the event this information is protected by the Federal Confidentiality of Alcohol and Drug Abuse Patient Records regulations: The Federal rules restrict any use of the information to criminally investigate or prosecute any alcohol or drug abuse patient.[facility] CenterIn the event this information is protected by the Federal Confidentiality of Alcohol and Drug Abuse Patient Records regulations: The Federal rules restrict any use of the information to criminally investigate or prosecute any alcohol or drug abuse patient.[facility] CenterIn the event this information is protected by the Federal Confidentiality of Alcohol and Drug Abuse Patient Records regulations: The Federal rules restrict any use of the information to criminally investigate or prosecute any alcohol or drug abuse patient.[facility] CenterIn the event this information is protected by the Federal Confidentiality of Alcohol and Drug Abuse Patient Records regulations: The Federal rules restrict any use of the information to criminally investigate or prosecute any alcohol or drug abuse patient.[facility] CenterIn the event this information is protected by the Federal Confidentiality of Alcohol and Drug Abuse Patient Records regulations: The Federal rules restrict any use of the information to criminally investigate or prosecute any alcohol or drug abuse patient.[facility] CenterIn the event this information is protected by the Federal Confidentiality of Alcohol and Drug Abuse Patient Records regulations: The Federal rules restrict any use of the information to criminally investigate or prosecute any alcohol or drug abuse patient.[facility] CenterIn the event this information is protected by the Federal Confidentiality of Alcohol and Drug Abuse Patient Records regulations: The Federal rules restrict any use of the information to criminally investigate or prosecute any alcohol or drug abuse patient.[facility] CenterIn the event this information is protected by the Federal Confidentiality of Alcohol and Drug Abuse Patient Records regulations: The Federal rules restrict any use of the information to criminally investigate or prosecute any alcohol or drug abuse patient.[facility] CenterIn the event this information is protected by the Federal Confidentiality of Alcohol and Drug Abuse Patient Records regulations: The Federal rules restrict any use of the information to criminally investigate or prosecute any alcohol or drug abuse patient.[facility] CenterIn the event this information is protected by the Federal Confidentiality of Alcohol and Drug Abuse Patient Records regulations: The Federal rules restrict any use of the information to criminally investigate or prosecute any alcohol or drug abuse patient.[facility] CenterIn the event this information is protected by the Federal Confidentiality of Alcohol and Drug Abuse Patient Records regulations: The Federal rules restrict any use of the information to criminally investigate or prosecute any alcohol or drug abuse patient.[facility] CenterIn the event this information is protected by the Federal Confidentiality of Alcohol and Drug Abuse Patient Records regulations: The Federal rules restrict any use of the information to criminally investigate or prosecute any alcohol or drug abuse patient.[facility] CenterIn the event this information is protected by the Federal Confidentiality of Alcohol and Drug Abuse Patient Records regulations: The Federal rules restrict any use of the information to criminally investigate or prosecute any alcohol or drug abuse patient.[facility] CenterIn the event this information is protected by the Federal Confidentiality of Alcohol and Drug Abuse Patient Records regulations: The Federal rules restrict any use of the information to criminally investigate or prosecute any alcohol or drug abuse patient.[facility] CenterIn the event this information is protected by the Federal Confidentiality of Alcohol and Drug Abuse Patient Records regulations: The Federal rules restrict any use of the information to criminally investigate or prosecute any alcohol or drug abuse patient.[facility] CenterIn the event this information is protected by the Federal Confidentiality of Alcohol and Drug Abuse Patient Records regulations: The Federal rules restrict any use of the information to criminally investigate or prosecute any alcohol or drug abuse patient.[facility] CenterIn the event this information is protected by the Federal Confidentiality of Alcohol and Drug Abuse Patient Records regulations: The Federal rules restrict any use of the information to criminally investigate or prosecute any alcohol or drug abuse patient.[facility] CenterIn the event this information is protected by the Federal Confidentiality of Alcohol and Drug Abuse Patient Records regulations: The Federal rules restrict any use of the information to criminally investigate or prosecute any alcohol or drug abuse patient.[facility] CenterIn the event this information is protected by the Federal Confidentiality of Alcohol and Drug Abuse Patient Records regulations: The Federal rules restrict any use of the information to criminally investigate or prosecute any alcohol or drug abuse patient.[facility] CenterIn the event this information is protected by the Federal Confidentiality of Alcohol and Drug Abuse Patient Records regulations: The Federal rules restrict any use of the information to criminally investigate or prosecute any alcohol or drug abuse patient.[facility] CenterIn the event this information is protected by the Federal Confidentiality of Alcohol and Drug Abuse Patient Records regulations: The Federal rules restrict any use of the information to criminally investigate or prosecute any alcohol or drug abuse patient.[facility] CenterIn the event this information is protected by the Federal Confidentiality of Alcohol and Drug Abuse Patient Records regulations: The Federal rules restrict any use of the information to criminally investigate or prosecute any alcohol or drug abuse patient.[facility] CenterIn the event this information is protected by the Federal Confidentiality of Alcohol and Drug Abuse Patient Records regulations: The Federal rules restrict any use of the information to criminally investigate or prosecute any alcohol or drug abuse patient.[facility] CenterIn the event this information is protected by the Federal Confidentiality of Alcohol and Drug Abuse Patient Records regulations: The Federal rules restrict any use of the information to criminally investigate or prosecute any alcohol or drug abuse patient.[facility] CenterIn the event this information is protected by the Federal Confidentiality of Alcohol and Drug Abuse Patient Records regulations: The Federal rules restrict any use of the information to criminally investigate or prosecute any alcohol or drug abuse patient.[facility] CenterIn the event this information is protected by the Federal Confidentiality of Alcohol and Drug Abuse Patient Records regulations: The Federal rules restrict any use of the information to criminally investigate or prosecute any alcohol or drug abuse patient.[facility] CenterIn the event this information is protected by the Federal Confidentiality of Alcohol and Drug Abuse Patient Records regulations: The Federal rules restrict any use of the information to criminally investigate or prosecute any alcohol or drug abuse patient.[facility] CenterIn the event this information is protected by the Federal Confidentiality of Alcohol and Drug Abuse Patient Records regulations: The Federal rules restrict any use of the information to criminally investigate or prosecute any alcohol or drug abuse patient.[facility] CenterIn the event this information is protected by the Federal Confidentiality of Alcohol and Drug Abuse Patient Records regulations: The Federal rules restrict any use of the information to criminally investigate or prosecute any alcohol or drug abuse patient.[facility] CenterIn the event this information is protected by the Federal Confidentiality of Alcohol and Drug Abuse Patient Records regulations: The Federal rules restrict any use of the information to criminally investigate or prosecute any alcohol or drug abuse patient.[facility] CenterIn the event this information is protected by the Federal Confidentiality of Alcohol and Drug Abuse Patient Records regulations: The Federal rules restrict any use of the information to criminally investigate or prosecute any alcohol or drug abuse patient.[facility] CenterIn the event this information is protected by the Federal Confidentiality of Alcohol and Drug Abuse Patient Records regulations: The Federal rules restrict any use of the information to criminally investigate or prosecute any alcohol or drug abuse patient.[facility] CenterIn the event this information is protected by the Federal Confidentiality of Alcohol and Drug Abuse Patient Records regulations: The Federal rules restrict any use of the information to criminally investigate or prosecute any alcohol or drug abuse patient.[facility] CenterIn the event this information is protected by the Federal Confidentiality of Alcohol and Drug Abuse Patient Records regulations: The Federal rules restrict any use of the information to criminally investigate or prosecute any alcohol or drug abuse patient.[facility] CenterIn the event this information is protected by the Federal Confidentiality of Alcohol and Drug Abuse Patient Records regulations: The Federal rules restrict any use of the information to criminally investigate or prosecute any alcohol or drug abuse patient.[facility] CenterIn the event this information is protected by the Federal Confidentiality of Alcohol and Drug Abuse Patient Records regulations: The Federal rules restrict any use of the information to criminally investigate or prosecute any alcohol or drug abuse patient.[facility] CenterIn the event this information is protected by the Federal Confidentiality of Alcohol and Drug Abuse Patient Records regulations: The Federal rules restrict any use of the information to criminally investigate or prosecute any alcohol or drug abuse patient.[facility] CenterIn the event this information is protected by the Federal Confidentiality of Alcohol and Drug Abuse Patient Records regulations: The Federal rules restrict any use of the information to criminally investigate or prosecute any alcohol or drug abuse patient.[facility] CenterIn the event this information is protected by the Federal Confidentiality of Alcohol and Drug Abuse Patient Records regulations: The Federal rules restrict any use of the information to criminally investigate or prosecute any alcohol or drug abuse patient.[facility] CenterIn the event this information is protected by the Federal Confidentiality of Alcohol and Drug Abuse Patient Records regulations: The Federal rules restrict any use of the information to criminally investigate or prosecute any alcohol or drug abuse patient.[facility] CenterIn the event this information is protected by the Federal Confidentiality of Alcohol and Drug Abuse Patient Records regulations: The Federal rules restrict any use of the information to criminally investigate or prosecute any alcohol or drug abuse patient.[facility] CenterIn the event this information is protected by the Federal Confidentiality of Alcohol and Drug Abuse Patient Records regulations: The Federal rules restrict any use of the information to criminally investigate or prosecute any alcohol or drug abuse patient.[facility] CenterIn the event this information is protected by the Federal Confidentiality of Alcohol and Drug Abuse Patient Records regulations: The Federal rules restrict any use of the information to criminally investigate or prosecute any alcohol or drug abuse patient.[facility] CenterIn the event this information is protected by the Federal Confidentiality of Alcohol and Drug Abuse Patient Records regulations: The Federal rules restrict any use of the information to criminally investigate or prosecute any alcohol or drug abuse patient.[facility] CenterIn the event this information is protected by the Federal Confidentiality of Alcohol and Drug Abuse Patient Records regulations: The Federal rules restrict any use of the information to criminally investigate or prosecute any alcohol or drug abuse patient.[facility] CenterIn the event this information is protected by the Federal Confidentiality of Alcohol and Drug Abuse Patient Records regulations: The Federal rules restrict any use of the information to criminally investigate or prosecute any alcohol or drug abuse patient.[facility]In the event this information is protected by the Federal Confidentiality of Alcohol and Drug Abuse Patient Records regulations: The Federal rules restrict any use of the information to criminally investigate or prosecute any alcohol or drug abuse patient.[facility]In the event this information is protected by the Federal Confidentiality of Alcohol and Drug Abuse Patient Records regulations: The Federal rules restrict any use of the information to criminally investigate or prosecute any alcohol or drug abuse patient.[facility]In the event this information is protected by the Federal Confidentiality of Alcohol and Drug Abuse Patient Records regulations: The Federal rules restrict any use of the information to criminally investigate or prosecute any alcohol or drug abuse patient.[facility]In the event this information is protected by the Federal Confidentiality of Alcohol and Drug Abuse Patient Records regulations: The Federal rules restrict any use of the information to criminally investigate or prosecute any alcohol or drug abuse patient.[facility]In the event this information is protected by the Federal Confidentiality of Alcohol and Drug Abuse Patient Records regulations: The Federal rules restrict any use of the information to criminally investigate or prosecute any alcohol or drug abuse patient.[facility]In the event this information is protected by the Federal Confidentiality of Alcohol and Drug Abuse Patient Records regulations: The Federal rules restrict any use of the information to criminally investigate or prosecute any alcohol or drug abuse patient.[facility]In the event this information is protected by the Federal Confidentiality of Alcohol and Drug Abuse Patient Records regulations: The Federal rules restrict any use of the information to criminally investigate or prosecute any alcohol or drug abuse patient.[facility]In the event this information is protected by the Federal Confidentiality of Alcohol and Drug Abuse Patient Records regulations: The Federal rules restrict any use of the information to criminally investigate or prosecute any alcohol or drug abuse patient.[facility] CenterIn the event this information is protected by the Federal Confidentiality of Alcohol and Drug Abuse Patient Records regulations: The Federal rules restrict any use of the information to criminally investigate or prosecute any alcohol or drug abuse patient.[facility]In the event this information is protected by the Federal Confidentiality of Alcohol and Drug Abuse Patient Records regulations: The Federal rules restrict any use of the information to criminally investigate or prosecute any alcohol or drug abuse patient.[facility]In the event this information is protected by the Federal Confidentiality of Alcohol and Drug Abuse Patient Records regulations: The Federal rules restrict any use of the information to criminally investigate or prosecute any alcohol or drug abuse patient.[facility] CenterIn the event this information is protected by the Federal Confidentiality of Alcohol and Drug Abuse Patient Records regulations: The Federal rules restrict any use of the information to criminally investigate or prosecute any alcohol or drug abuse patient.[facility]In the event this information is protected by the Federal Confidentiality of Alcohol and Drug Abuse Patient Records regulations: The Federal rules restrict any use of the information to criminally investigate or prosecute any alcohol or drug abuse patient.[facility]In the event this information is protected by the Federal Confidentiality of Alcohol and Drug Abuse Patient Records regulations: The Federal rules restrict any use of the information to criminally investigate or prosecute any alcohol or drug abuse patient.[facility]In the event this information is protected by the Federal Confidentiality of Alcohol and Drug Abuse Patient Records regulations: The Federal rules restrict any use of the information to criminally investigate or prosecute any alcohol or drug abuse patient.[facility]In the event this information is protected by the Federal Confidentiality of Alcohol and Drug Abuse Patient Records regulations: The Federal rules restrict any use of the information to criminally investigate or prosecute any alcohol or drug abuse patient.[facility]In the event this information is protected by the Federal Confidentiality of Alcohol and Drug Abuse Patient Records regulations: The Federal rules restrict any use of the information to criminally investigate or prosecute any alcohol or drug abuse patient.[facility]In the event this information is protected by the Federal Confidentiality of Alcohol and Drug Abuse Patient Records regulations: The Federal rules restrict any use of the information to criminally investigate or prosecute any alcohol or drug abuse patient.[facility]In the event this information is protected by the Federal Confidentiality of Alcohol and Drug Abuse Patient Records regulations: The Federal rules restrict any use of the information to criminally investigate or prosecute any alcohol or drug abuse patient.[facility]In the event this information is protected by the Federal Confidentiality of Alcohol and Drug Abuse Patient Records regulations: The Federal rules restrict any use of the information to criminally investigate or prosecute any alcohol or drug abuse patient.[facility]In the event this information is protected by the Federal Confidentiality of Alcohol and Drug Abuse Patient Records regulations: The Federal rules restrict any use of the information to criminally investigate or prosecute any alcohol or drug abuse patient.[facility]In the event this information is protected by the Federal Confidentiality of Alcohol and Drug Abuse Patient Records regulations: The Federal rules restrict any use of the information to criminally investigate or prosecute any alcohol or drug abuse patient.[facility]In the event this information is protected by the Federal Confidentiality of Alcohol and Drug Abuse Patient Records regulations: The Federal rules restrict any use of the information to criminally investigate or prosecute any alcohol or drug abuse patient.[facility]In the event this information is protected by the Federal Confidentiality of Alcohol and Drug Abuse Patient Records regulations: The Federal rules restrict any use of the information to criminally investigate or prosecute any alcohol or drug abuse patient.[facility]In the event this information is protected by the Federal Confidentiality of Alcohol and Drug Abuse Patient Records regulations: The Federal rules restrict any use of the information to criminally investigate or prosecute any alcohol or drug abuse patient.[facility]In the event this information is protected by the Federal Confidentiality of Alcohol and Drug Abuse Patient Records regulations: The Federal rules restrict any use of the information to criminally investigate or prosecute any alcohol or drug abuse patient.[facility]In the event this information is protected by the Federal Confidentiality of Alcohol and Drug Abuse Patient Records regulations: The Federal rules restrict any use of the information to criminally investigate or prosecute any alcohol or drug abuse patient.[facility]In the event this information is protected by the Federal Confidentiality of Alcohol and Drug Abuse Patient Records regulations: The Federal rules restrict any use of the information to criminally investigate or prosecute any alcohol or drug abuse patient.[facility]In the event this information is protected by the Federal Confidentiality of Alcohol and Drug Abuse Patient Records regulations: The Federal rules restrict any use of the information to criminally investigate or prosecute any alcohol or drug abuse patient.[facility] CenterIn the event this information is protected by the Federal Confidentiality of Alcohol and Drug Abuse Patient Records regulations: The Federal rules restrict any use of the information to criminally investigate or prosecute any alcohol or drug abuse patient.[facility] CenterIn the event this information is protected by the Federal Confidentiality of Alcohol and Drug Abuse Patient Records regulations: The Federal rules restrict any use of the information to criminally investigate or prosecute any alcohol or drug abuse patient.[facility] CenterIn the event this information is protected by the Federal Confidentiality of Alcohol and Drug Abuse Patient Records regulations: The Federal rules restrict any use of the information to criminally investigate or prosecute any alcohol or drug abuse patient.[facility] CenterIn the event this information is protected by the Federal Confidentiality of Alcohol and Drug Abuse Patient Records regulations: The Federal rules restrict any use of the information to criminally investigate or prosecute any alcohol or drug abuse patient.[facility] CenterIn the event this information is protected by the Federal Confidentiality of Alcohol and Drug Abuse Patient Records regulations: The Federal rules restrict any use of the information to criminally investigate or prosecute any alcohol or drug abuse patient.[facility] CenterIn the event this information is protected by the Federal Confidentiality of Alcohol and Drug Abuse Patient Records regulations: The Federal rules restrict any use of the information to criminally investigate or prosecute any alcohol or drug abuse patient.[facility] CenterIn the event this information is protected by the Federal Confidentiality of Alcohol and Drug Abuse Patient Records regulations: The Federal rules restrict any use of the information to criminally investigate or prosecute any alcohol or drug abuse patient.[facility] CenterIn the event this information is protected by the Federal Confidentiality of Alcohol and Drug Abuse Patient Records regulations: The Federal rules restrict any use of the information to criminally investigate or prosecute any alcohol or drug abuse patient.[facility] CenterIn the event this information is protected by the Federal Confidentiality of Alcohol and Drug Abuse Patient Records regulations: The Federal rules restrict any use of the information to criminally investigate or prosecute any alcohol or drug abuse patient.[facility] CenterIn the event this information is protected by the Federal Confidentiality of Alcohol and Drug Abuse Patient Records regulations: The Federal rules restrict any use of the information to criminally investigate or prosecute any alcohol or drug abuse patient.[facility] CenterIn the event this information is protected by the Federal Confidentiality of Alcohol and Drug Abuse Patient Records regulations: The Federal rules restrict any use of the information to criminally investigate or prosecute any alcohol or drug abuse patient.[facility] CenterIn the event this information is protected by the Federal Confidentiality of Alcohol and Drug Abuse Patient Records regulations: The Federal rules restrict any use of the information to criminally investigate or prosecute any alcohol or drug abuse patient.[facility] CenterIn the event this information is protected by the Federal Confidentiality of Alcohol and Drug Abuse Patient Records regulations: The Federal rules restrict any use of the information to criminally investigate or prosecute any alcohol or drug abuse patient.[facility] CenterIn the event this information is protected by the Federal Confidentiality of Alcohol and Drug Abuse Patient Records regulations: The Federal rules restrict any use of the information to criminally investigate or prosecute any alcohol or drug abuse patient.[facility] CenterIn the event this information is protected by the Federal Confidentiality of Alcohol and Drug Abuse Patient Records regulations: The Federal rules restrict any use of the information to criminally investigate or prosecute any alcohol or drug abuse patient.[facility] CenterIn the event this information is protected by the Federal Confidentiality of Alcohol and Drug Abuse Patient Records regulations: The Federal rules restrict any use of the information to criminally investigate or prosecute any alcohol or drug abuse patient.[facility] CenterIn the event this information is protected by the Federal Confidentiality of Alcohol and Drug Abuse Patient Records regulations: The Federal rules restrict any use of the information to criminally investigate or prosecute any alcohol or drug abuse patient.[facility] Reason for Visit (unrecogniz ed section and content) Reason Comments Patient Education Assessment Specialty Diagnoses / Procedures Referred By Christie hidalgo Referred To Contact Nutrition Diagnoses Class 3 severe obesity due to excess calories with body mass index (BMI) of 50.0 to 59.9 in adult, unspecified whether serious comorbidity present (HCC) Procedures CONSULT TO NUTRITION THERAPY MEDICAL NUTRITION ASSMT&IVNTJ INDIV EACH 15 SC Genaro Morales, BLADE SHARPENER.ICE HOCKEY COACH [address] [place] [address] Referral ID Status Reason Start Date Expiration Date Visits Requested Visits Authorized [id number] Authorized PCP Requested Referral 04/03/2024 04/03/2025 1 4 Reason Comments Recheck Specialty Diagnoses / Procedures Referred By Christie hidalgo Referred To Contact RHEUMATOLOGY Diagnoses Juvenile idiopathic arthritis (HCC) Procedures office visit Silvia Tucker MD [address] [place] [address] [facility] [address] [place] [address] Referral ID Status Reason Start Date Expiration Date V isits Requested Visits Authorized [id number] Closed Financial Clearance Required - Self Pay OON/Self Pay Override 03/12/2024 08/01/2024 99 99 Reason Comments Refill Request Reason Comments Established Patient Reason Comments Derm Problem mole on nose that sc abs and bleeds, mole under right breast changing color Reason Onset Date Comments Refill Request 11/28/2021 Reason Onset Date Comments Insertion Of IUD 12/04/2021 Specialty Diagnoses / Procedures Referred By Christie hidalgo Referred To Contact [facility] Diagnoses Encounter for IUD insertion Procedures INSERT INTRAUTERINE DEVICE INSERT INTRAUTERINE DEVICE Ayaan Rowley, BLADE SHARPENER.CN [address] [place] [address] [facility] [address] [place] [address] Referral ID Status Reason Start Date Expiration Date V isits Requested Visits Authorized [id number] Authorized 08/15/2021 08/14/2022 2 2 Reason Comments Follow Up Reason Comments Shortness of Breath Reason Comments IUD Reason Onset Date Comments Refill Request 01/16/2022 Reason Comments Results Reason Onset Date Comments Refill Request 02/18/2022 Reason Onset Date Comments SPP Inflammatory Conditions - Treatment Referral 02/19/2022 Ilaris Reason Comments Consult Reason Comments Consult [facility] Pt Outreach F/U Reason Onset Date Comments Refill Request 02/25/2022 Reason Comments Consult [facility] assessment Virt ual Reason Onset Date Comments [...] CONTRAST CHG CT SCAN,ABDOMENT AND PELVIS,W CONTRAST Marina Goodrich T, BLADE SHARPENER-SAFETY COUNCIL DIRECTOR [address] [place] [address] Referral ID Status Reason Start Date Expiration Date Visits Re quested Visits Authorized [id number] Closed 06/28/2022 07/23/2023 1 1 Reason Comments [...] To Contact Diagnoses . Procedures . Self [facility] Dept Referral ID Status Reason Start Date Expiration Date V isits Requested Visits Authorized [id number] Closed Patient Cleared - Qualified 100% FAS 07/19/2022 10/17/2022 99 99 Reason Comments Medication Authorization Ilaris Reason Comments Dog Bite Dog bite of R index finger x 09/20/22 @ 18:30Accidentally bit while playing with her own dog per pt Reason Comments Costochondiritis Left upper chest wal l pain and tenderness Reason Comments Forms Reason Comments Letter Needs letter for wor k. Reason Comments new form coming from [facility] Reason Comments requesting copy of form faxed earlier Reason Comments Discussion Need for accommodati ons at work; new form for Kimberly needs completed since they denied all of [...] Reason Comments Yearly Exam Reason Comments Arthritis Referral ID Status Reason Start Date Expiration Date Visits Requested Visits Authorized [id number] New Request Financial Clearance Required - Self Pay OON/Self Pay Override 03/12/2024 06/10/2024 99 99 Reason Comments Results Colposcopy Reason Comments Colposcopy Specialty Diagnoses / Procedures Referred By Contfroilan t Referred To Contact [facility] Diagnoses Cervical high risk HPV (human papillomavirus) test positive Procedures COLPOSCOPY COLPOSCOPY CERVIX BX CERVIX & ENDOCRV Nani Moran, GENI.SAFETY COUNCIL DIRECTOR [address] [place] [address] [facility] [address] [place] [address] Referral ID Status Reason Start Date Expiration Date V isits Requested Visits Authorized [id number] Closed Auto-Generate d Referral 03/12/2024 03/12/2025 1 [...] Adjustable Rollator Reason Comments Assessment Patient Education Reason Onset Date Comments SPP Inflammatory Conditions - Medication Refill 05/15/2024 Ilaris Reason Comments Radiology CT Specialty Diagnoses / Procedures Referred By Contac t Referred To Contact CT IMAGING Diagnoses Chronic sinusitis, unspecified location Procedures CT SINUS WO IVCON [place] [id number] [place] [address] Referral ID Status Reason Start Date Expiration Date V isits Requested Visits Authorized [id number] Closed Auto-Generate d Referral 06/27/2020 08/25/2020 3 3 Reason Comments ER F/U Reason Onset Date Comments SPP Inflammatory Conditions - Medication Refill 06/08/2024 Ilaris Reason Comments Patient Update Reason Onset Date Comments SPP Inflammatory Conditions - Medication Refill 07/02/2024 Ilaris Reason Comments Same Day Appointment mid back pain to le ft flank after eating x since Tuesday Reason Comments Earache And sinus/eye issues - Entered by patient Ear Pain Left ear pain and ir ritated left eye x 1 day ad sinus x 1 week Reason Comments Patient Update Medication Request Reason Onset Date Comments SPP Inflammatory Conditions - Medication Refill 08/02/2024 Ilaris Reason Onset Date Comments Refill Request 08/26/2024 Reason Comments referral question Reason Comments Anxiety Reason Onset Date Comments SPP Inflammatory Conditions - Medication Refill 09/13/2024 Ilaris Reason Comments Cough Entered by patient, states x 3 days, dry non productive barky, SOB with cough Nasal Congestion X 2 weeks Fever 1 day Reason Onset Date Comments SPP Inflammatory Conditions - Medication Refill 10/16/2024 Ilaris Reason Comments left wrist pain X 2 weeks-injured it in the shouwer Reason Onset Date Comments Refill Request 10/25/2024 Reason Comments Laceration Left middle finger l aceration x 1 hour Reason Comments Bradycardia Reason Comments Same Day Appointment severe fatigue and weak, muscle pains and joint pain since Tuesday 5 days Reason Comments Sore Throat ST x 1 day-bleeding and white spots Reason Comments Sore Throat Fever, swollen tonsi ls x4 days Reason Comments Recheck Reason Comments Patient Question Questions before apt 12/19 Reason Comments Nasal Congestion Sinus congestion x 1 month; sore throat and fever x 4 days Reason Comments Recheck Persistent diarrhea and vomiting for the last 5 days. 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 Care Teams (unrecognized sec tion and content) Public Health Advisor Relationship Specialty Start Date End Date Faustina Carcamo MD [address] [facility] [place] [address] PCP - General Internal Medicine 04/10/13 Public Health Advisor Relationship Specialty Start Date End Date Faustina Carcamo MD [address] [place] [address], [place] [address] PCP - General Internal Medicine 04/10/13 Public Health Advisor Relationship Specialty Start Date End Date Faustina Carcamo MD [address] [place] [address], [place] [address] PCP - General Internal Medicine 04/10/13 Public Health Advisor Relationship Specialty Start Date End Date Faustina Carcamo MD [address] [place] [address], [place] [address] PCP - General Internal Medicine 04/10/13 Public Health Advisor Relationship Specialty Start Date End Date Faustina Carcamo MD [address] [place] [address], [place] [address] PCP - General Internal Medicine 04/10/13 Public Health Advisor Relationship Specialty Start Date End Date Faustina Carcamo MD [address] [place] [address], [place] [address] PCP - General Internal Medicine 04/10/13 Public Health Advisor Relationship Specialty Start Date End Date Faustina Carcamo MD [address] [place] [address], [place] [address] PCP - General Internal Medicine 04/10/13 Public Health Advisor Relationship Specialty Start Date End Date Faustina Carcamo MD [address] [facility] [place] [address] PCP - General Internal Medicine 04/10/13 Public Health Advisor Relationship Specialty Start Date End Date Faustina Carcamo MD [address] [place] [address], [place] [address] PCP - General Internal Medicine 04/10/13 Public Health Advisor Relationship Specialty Start Date End Date Faustina Carcamo MD [address] [place] [address], [place] [address] PCP - General Internal Medicine 04/10/13 Public Health Advisor Relationship Specialty Start Date End Date Faustina Carcamo MD [address] [place] [address], [place] [address] PCP - General Internal Medicine 04/10/13 Public Health Advisor Relationship Specialty Start Date End Date Faustina Carcamo MD [address] [place] [address], [place] [address] PCP - General Internal Medicine 04/10/13 Public Health Advisor Relationship Specialty Start Date End Date Faustina Carcamo MD [facility] [place] [place] [address] PCP - General Internal Medicine 04/10/13 Public Health Advisor Relationship Specialty [place] [address] [place] [address], [place] [address] PCP - General Internal Medicine 04/10/13 Public Health Advisor Relationship Specialty Start Date End Date Faustina Carcamo MD [address] [place] [address], [place] [address] PCP - General Internal Medicine 04/10/13 Public Health Advisor Relationship Specialty Start Date End Date Faustina Carcamo MD [address] [facility] [place] [address] PCP - General Internal Medicine 04/10/13 Public Health Advisor Relationship Specialty Start Date End Date Faustina Carcamo MD [address] [facility] [place] [address] PCP - General Internal Medicine 04/10/13 Public Health Advisor Relationship Specialty Start Date End Date Faustina Carcamo MD [address] [facility] [place] [address] PCP - General Internal Medicine 04/10/13 Public Health Advisor Relationship Specialty Start Date End Date Mario Vazquez MBBS [address] [place] [address], [place] [address] PCP - General Internal Medicine 04/16/22 Public Health Advisor Relationship Specialty Start Date End Date No, Physician [facility] PCP - General 05/02/22 Public Health Advisor Relationship Specialty Start Date End Date Mario Vazquez MBBS [address] [place] [address], [place] [address] PCP - General Internal Medicine 04/16/22 Public Health Advisor Relationship Specialty Start Date End Date Mario Vazquez MBBS [address] [place] [address], [place] [address] PCP - General Internal Medicine 04/16/22 Public Health Advisor Relationship Specialty Start Date End Date Mario Vazquez MBBS [address] [place] [address], [place] [address] PCP - General Internal Medicine 04/16/22 Public Health Advisor Relationship Specialty Start Date End Date Faustina Carcamo MD [address] [facility] [place] [address] PCP - General Internal Medicine 04/10/13 Public Health Advisor Relationship Specialty Start Date End Date Faustina Carcamo MD [address] [place] [address] PCP - General Internal Medicine 04/10/13 Public Health Advisor Relationship Specialty Start Date End Date Mario Vazquez MBBS [address] [place] [address] PCP - General Internal Medicine 04/16/22 Public Health Advisor Relationship Specialty Start Date End Date Faustina Carcamo MD [address] [place] [address] PCP - General Internal Medicine 04/10/13 Public Health Advisor Relationship Specialty Start Date End Date Faustina Carcamo MD [address] [place] [address] PCP - General Internal Medicine 04/10/13 Public Health Advisor Relationship Specialty Start Date End Date Faustina Carcamo MD [address] [place] [address] PCP - General Internal Medicine 04/10/13 Public Health Advisor Relationship Specialty Start Date End Date Faustina Carcamo MD [address] [place] [address] PCP - General Internal Medicine 04/10/13 Public Health Advisor Relationship Specialty Start Date End Date Faustina Carcamo MD [address] [place] [address] PCP - General Internal Medicine 04/10/13 Public Health Advisor Relationship Specialty Start Date End Date Faustina Carcamo MD [address] [place] [address] PCP - General Internal Medicine 04/10/13 Public Health Advisor Relationship Specialty Start Date End Date Faustina Carcamo MD [address] [facility] [place] [address] PCP - General Internal Medicine 04/10/13 Public Health Advisor Relationship Specialty Start Date End Date Faustina Carcamo MD [address] [facility] [place] [address] PCP - General Internal Medicine 04/10/13 Public Health Advisor Relationship Specialty Start Date End Date Faustina Carcamo MD [address] [facility] [place] [address] PCP - General Internal Medicine 04/10/13 Public Health Advisor Relationship Specialty Start Date End Date Faustina Carcamo MD [address] [facility] [place] [address] PCP - General Internal Medicine 04/10/13 Public Health Advisor Relationship Specialty Start Date End Date Faustina Carcamo MD [address] [facility] [place] [address] PCP - General Internal Medicine 04/10/13 Public Health Advisor Relationship Specialty Start Date End Date Faustina Carcamo MD [address] [facility] [place] [address] PCP - General Internal Medicine 04/10/13 Public Health Advisor Relationship Specialty Start Date End Date Faustina Carcamo MD [address] [facility] [place] [address] PCP - General Internal Medicine 04/10/13 Public Health Advisor Relationship Specialty Start Date End Date Faustina Carcamo MD [address] [facility] [place] [address] PCP - General Internal Medicine 04/10/13 Public Health Advisor Relationship Specialty Start Date End Date Faustina Carcamo MD [address] [facility] [place] [address] PCP - General Internal Medicine 04/10/13 Public Health Advisor Relationship Specialty Start Date End Date Faustina Carcamo MD [address] [facility] [place] [address] PCP - General Internal Medicine 04/10/13 Public Health Advisor Relationship Specialty Start Date End Date Faustina Carcamo MD [address] [facility] [place] [address] PCP - General Internal Medicine 04/10/13 Public Health Advisor Relationship Specialty Start Date End Date Faustina Carcamo MD [address] [facility] [place] [address] PCP - General Internal Medicine 04/10/13 Public Health Advisor Relationship Specialty Start Date End Date Faustina Carcamo MD [address] [facility] [place] [address] PCP - General Internal Medicine 04/10/13 Public Health Advisor Relationship Specialty Start Date End Date Faustina Carcamo MD [address] [facility] [place] [address] PCP - General Internal Medicine 04/10/13 Public Health Advisor Relationship Specialty Start Date End Date Faustina Carcamo MD [address] [facility] [place] [address] PCP - General Internal Medicine 04/10/13 Public Health Advisor Relationship Specialty Start Date End Date Faustina Carcamo MD [address] [place] [address] PCP - General Internal Medicine 04/10/13 Public Health Advisor Relationship Specialty Start Date End Date Faustina Carcamo MD [address] [place] [address] PCP - General Internal Medicine 04/10/13 Public Health Advisor Relationship Specialty Start Date End Date Faustina Carcamo MD [address] [place] [address] PCP - General Internal Medicine 04/10/13 Public Health Advisor Relationship Specialty Start Date End Date Faustina Carcamo MD [address] [place] [address] PCP - General Internal Medicine 04/10/13 Public Health Advisor Relationship Specialty Start Date End Date Faustina Carcamo MD [address] [place] [address] PCP - General Internal Medicine 04/10/13 Public Health Advisor Relationship Specialty Start Date End Date Faustina Carcamo MD [address] [place] [address] PCP - General Internal Medicine 04/10/13 Public Health Advisor Relationship Specialty Start Date End Date Faustina Carcamo MD [address] [place] [address] PCP - General Internal Medicine 04/10/13 Public Health Advisor Relationship Specialty Start Date End Date Faustina Carcamo MD [address] [facility] [place] [address] PCP - General Internal Medicine 04/10/13 Public Health Advisor Relationship Specialty Start Date End Date Faustina Carcamo MD [address] [facility] [place] [address] PCP - General Internal Medicine 04/10/13 Public Health Advisor Relationship Specialty Start Date End Date Faustina Carcamo MD [address] [facility] [place] [address] PCP - General Internal Medicine 04/10/13 Public Health Advisor Relationship Specialty Start Date End Date Faustina Carcamo MD [address] [facility] [place] [address] PCP - General Internal Medicine 04/10/13 Public Health Advisor Relationship Specialty Start Date End Date Faustina Carcamo MD [address] [facility] [place] [address] PCP - General Internal Medicine 04/10/13 Public Health Advisor Relationship Specialty Start Date End Date Faustina Carcamo MD [address] [facility] [place] [address] PCP - General Internal Medicine 04/10/13 Public Health Advisor Relationship Specialty Start Date End Date Faustina Carcamo MD [address] [facility] [place] [address] PCP - General Internal Medicine 04/10/13 Public Health Advisor Relationship Specialty Start Date End Date Faustina Carcamo MD [address] [facility] [place] [address] PCP - General Internal Medicine 04/10/13 Public Health Advisor Relationship Specialty Start Date End Date Faustina Carcamo MD [address] [place] [address] PCP - General Internal Medicine 04/10/13 Genaro Morales, BLADE SHARPENER.ICE HOCKEY COACH [address] [place] [address] Traveling Electrician Internal Medicine 07/23/24 Petra Beckman BLADE SHARPENER.SAFETY COUNCIL DIRECTOR [address] [place] [address] [facility] Internal Medicine 07/23/24 Public Health Advisor Relationship Specialty Start Date End Date Faustina Carcamo MD [address] [place] [address] PCP - General Internal Medicine 04/10/13 Genaro Morales, BLADE SHARPENER.ICE HOCKEY COACH [address] [place] [address] Traveling Electrician Internal Medicine 07/23/24 Petra Beckman BLADE SHARPENER.SAFETY COUNCIL DIRECTOR [address] [place] [address] Traveling Electrician Internal Medicine 07/23/24 Public Health Advisor Relationship Specialty Start Date End Date Faustina Carcamo MD [address] [place] [address] PCP - General Internal Medicine 04/10/13 Genaro Morales, BLADE SHARPENER.ICE HOCKEY COACH [address] [facility] [place] [address] Traveling Electrician Internal Medicine 07/23/24 Petra Beckman BLADE SHARPENER.SAFETY COUNCIL DIRECTOR [address] [place] [address] Traveling Electrician Internal Medicine 07/23/[address] [place] [address] Nutrition 07/27/24 Public Health Advisor Relationship Specialty Start Date End Date Faustina Carcmao MD [facility] [place] [address] PCP - General Internal Medicine 04/10/13 Genaro Morales, BLADE SHARPENER.ICE HOCKEY COACH [address] [place] [address] Traveling Electrician Internal Medicine 07/23/24 Petra Beckman, BLADE SHARPENER.SAFETY COUNCIL DIRECTOR [address] [place] [address] [employer]ing [employer] Internal Medicine 07/23/[address] [place] [address] [facility] 07/27/24 Public Health Advisor Relationship Specialty Start Date End Date Faustina Carcamo MD [facility] [place] [address] PCP - General Internal Medicine 04/10/13 Genaro Morales, BLADE SHARPENER.ICE HOCKEY COACH [facility] [place] [address] Traveling Electric[employer] Internal Medicine 07/23/24 Petra Beckman BLADE SHARPENER.SAFETY COUNCIL DIRECTOR [facility] [place] [address] Traveling Electrician Internal Medicine 07/23/[address] [place] [address] [facility] 07/27/24 Public Health Advisor Relationship Specialty Start Date End Date Faustina Carcamo MD [address] [place] [address] PCP - General Internal Medicine 04/10/13 Genaro Morales, BLADE SHARPENER.ICE HOCKEY COACH [address] [place] [address] [facility] Internal Medicine 07/23/24 Petra Beckmna BLADE SHARPENER.SAFETY COUNCIL DIRECTOR [address] [place] [address] [facility] Internal Medicine 07/23/[address] [place], [place] [phone] [facility] 07/27/24 Public Health Advisor Relationship Specialty Start Date End Date Faustina Carcamo MD [address] [place] [address] PCP - General Internal Medicine 04/10/13 Genaro Morales, BLADE SHARPENER.ICE HOCKEY COACH [address] [place] [address] [facility] Internal Medicine 07/23/24 Petra Beckman, BLADE SHARPENER.SAFETY COUNCIL DIRECTOR [facility] [place] [address] [facility] Internal Medicine 07/23/[address] [place], [place] [phone] Nutrition 07/27/24 Public Health Advisor Relationship Specialty Start Date End Date Faustina Carcamo MD [address] [place] [address] PCP - General Internal Medicine 04/10/13 Genaro Morales, BLADE SHARPENER.ICE HOCKEY COACH [address] [place] [address] Traveling Electrician Internal Medicine 07/23/24 Petra Beckman BLADE SHARPENER.SAFETY COUNCIL DIRECTOR [address] [place] [address] Traveling Electric[employer] Internal Medicine 07/23/[address] [place], [place] [phone] Nutrition 07/27/24 Public Health Advisor Relationship Specialty Start Date End Date Faustina Carcamo MD [facility] [place] [address] PCP - General Internal Medicine 04/10/13 Genaro Morales, BLADE SHARPENER.ICE HOCKEY COACH [facility] [place] [address] Traveling Electrician Internal Medicine 07/23/24 Petra Beckman BLADE SHARPENER.SAFETY COUNCIL DIRECTOR [address] [place] [address] Traveling Electrician Internal Medicine 07/23/[address] [place] [address] Nutrition 07/27/24 Public Health Advisor Relationship Specialty Start Date End Date Faustina Carcamo MD [address] [place] [address] PCP - General Internal Medicine 04/10/13 Genaro Morales, BLADE SHARPENER.ICE HOCKEY COACH [address] [place] [address] Traveling Electrician Internal Medicine 07/23/24 Petra Beckman BLADE SHARPENER.SAFETY COUNCIL DIRECTOR [address] [place] [address] Traveling Electric[employer] Internal Medicine 07/23/[address] [place], [place] [phone] Nutrition 07/27/24 Public Health Advisor Relationship Specialty Start Date End Date Faustina Carcamo MD [facility] [place] [address] PCP - General Internal Medicine 04/10/13 Genaro Morales, BLADE SHARPENER.ICE HOCKEY COACH [facility] [place] [address] Traveling Electrician Internal Medicine 07/23/24 Petra Beckman BLADE SHARPENER.SAFETY COUNCIL DIRECTOR [address] [place] [address] Traveling Electrician Internal Medicine 07/23/[address] [place] [address] Nutrition 07/27/24 Public Health Advisor Relationship Specialty Start Date End Date Faustina Carcamo MD [address] [facility] [place] [address] PCP - General Internal Medicine 04/10/13 Genaro Morales, BLADE SHARPENER.ICE HOCKEY COACH [address] [facility] [place] [address] Traveling Electrician Internal Medicine 07/23/24 ePtra Beckman BLADE SHARPENER.SAFETY COUNCIL DIRECTOR [address] [facility] [place] [address] Traveling Electrician Internal Medicine 07/23/[address] [place] [address] [facility] 07/27/24 Public Health Advisor Relationship Specialty Start Date End Date Faustina Carcamo MD [address] [facility] [place] [address] PCP - General Internal Medicine 04/10/13 Genaro Morales, BLADE SHARPENER.ICE HOCKEY COACH [address] [facility] [place] [address] Traveling Electrician Internal Medicine 07/23/24 Petra Beckman BLADE SHARPENER.SAFETY COUNCIL DIRECTOR [address] [facility] [place] [address] Traveling Electrician Internal Medicine 07/23/[address] [place] [address] [facility] 07/27/24 Public Health Advisor Relationship Specialty Start Date End Date Faustina Carcamo MD [address] [facility] [place] [address] PCP - General Internal Medicine 04/10/13 Genaro Morales, BLADE SHARPENER.ICE HOCKEY COACH [address] [place] [address] Traveling Electrician Internal Medicine 07/23/24 Petra Beckman, BLADE SHARPENER.SAFETY COUNCIL DIRECTOR [address] [place] [address] Traveling Electrician Internal Medicine 07/23/[address] [address] [facility] 07/27/24 Public Health Advisor Relationship Specialty Start Date End Date Faustina Carcamo MD [address] [place] [address] PCP - General Internal Medicine 04/10/13 Genaro Morales, BLADE SHARPENER.ICE HOCKEY COACH [address] [place] [address] [facility] Internal Medicine 07/23/24 Petra Beckman, BLADE SHARPENER.SAFETY COUNCIL DIRECTOR [address] [place] [address] Traveling Electrician Internal Medicine 07/23/[address] [address] Nutrition 07/27/24 Public Health Advisor Relationship Specialty Start Date End Date Faustina Carcamo MD [address] [place] [address] PCP - General Internal Medicine 04/10/13 Genaro Morales, BLADE SHARPENER.ICE HOCKEY COACH [address] [facility] [place] [address] [facility] Internal Medicine 07/23/24 Petra Beckman BLADE SHARPENER.SAFETY COUNCIL DIRECTOR [address] [place] [address] Traveling Electrician Internal Medicine 07/23/[address] [address] Nutrition 07/27/24 Public Health Advisor Relationship Specialty Start Date End Date Faustina Carcamo MD [address] [place] [address] PCP - General Internal Medicine 04/10/13 Genaro Morales, BLADE SHARPENER.ICE HOCKEY COACH [address] [place] [address] [facility] Internal Medicine 07/23/24 Petra Beckman BLADE SHARPENER.SAFETY COUNCIL DIRECTOR [address] [place] [address] [facility] Internal Medicine 07/23/[address] [address] Nutrition 07/27/24 Public Health Advisor Relationship Specialty Start Date End Date Faustina Carcamo MD [address] [place] [address] PCP - General Internal Medicine 04/10/13 Genaro Morales, BLADE SHARPENER.ICE HOCKEY COACH [address] [place] [address] Traveling Electrician Internal Medicine 07/23/24 Petra Beckman APRN.SAFETY COUNCIL DIRECTOR [address] [place] [address] Traveling Electrician Internal Medicine 07/23/[address] [place] [address] Nutrition 07/27/24 Public Health Advisor Relationship Specialty Start Date End Date Faustina Carcamo MD [address] [place] [address] PCP - General Internal Medicine 04/10/13 Genaro Morales, BLADE SHARPENER.ICE HOCKEY COACH [address] [place] [address] [facility] Internal Medicine 07/23/[address] [place] [address] Nutrition 07/27/24 Petra Beckman APRN.SAFETY COUNCIL DIRECTOR [address] [place] [address] [facility] Internal Medicine 11/06/24 Public Health Advisor Relationship Specialty Start Date End Date Faustina Carcamo MD [address] [place] [address] PCP - General Internal Medicine 04/10/13 Genaro Morales, BLADE SHARPENER.ICE HOCKEY COACH [address] [place] [address] [facility] Internal Medicine 07/23/24 Petra Beckman APRN.SAFETY COUNCIL DIRECTOR [address] [facility] [place] [address] [facility] Internal Medicine 07/23/24 11/02/[address] [place] [address] [facility] 07/27/24 Public Health Advisor Relationship Specialty Start Date End Date Faustina Carcamo MD [address] [facility] [place] [address] PCP - General Internal Medicine 04/10/13 Genaro Morales, BLADE SHARPENER.ICE HOCKEY COACH [address] [facility] [place] [address] [facility] Internal Medicine 07/23/[address] [place] [address] [facility] 07/27/24 Petra Beckman APRN.SAFETY COUNCIL DIRECTOR [address] [facility] [place] [address] [facility] Internal Medicine 11/06/24 Public Health Advisor Relationship Specialty Start Date End Date Faustina Carcamo MD [address] [facility] [place] [address] PCP - General Internal Medicine 04/10/13 Genaro Morales, BLADE SHARPENER.ICE HOCKEY COACH [address] [facility] [place] [address] [facility] Internal Medicine 07/23/[address] [place] [address] Nutrition 07/27/24 Petra Beckman APRN.SAFETY COUNCIL DIRECTOR [address] [facility] [place] [address] Traveling Electrician Internal Medicine 11/06/24 Public Health Advisor Relationship Specialty Start Date End Date Faustina Carcamo MD [address] [place] [address] PCP - General Internal Medicine 04/10/13 Genaro Morales, GENI.ICE HOCKEY COACH [address] [place] [address] Traveling Electrician Internal Medicine 07/23/[address] C[address] [place] [address] Nutrition 07/27/24 Petra Beckman APRN.SAFETY COUNCIL DIRECTOR [address] [place] [address] Traveling Electrician Internal Medicine 11/06/24 Public Health Advisor Relationship Specialty Start Date End Date Faustina Carcamo MD [address] [facility] [place] [address] PCP - General Internal Medicine 04/10/13 Genaro Morales APRN.ICE HOCKEY COACH [address] [place] [address] Traveling Electrician Internal Medicine 07/23/24 Petra Beckman APRN.SAFETY COUNCIL DIRECTOR [address] [place] [address] Traveling Electrician Internal Medicine 07/23/24 11/02/[address] [place] [address] Nutrition 07/27/24 Petra Beckman BLADE SHARPENER.SAFETY COUNCIL DIRECTOR [address] [place] [address] [facility] Internal Medicine 11/06/24 Public Health Advisor Relationship Specialty Start Date End Date Faustina Carcamo MD [address] [place] [address] PCP - General Internal Medicine 04/10/13 Genaro Morales, BLADE SHARPENER.ICE HOCKEY COACH [address] [place] [address] [facility] Internal Medicine 07/23/[address] [place] [address] Nutrition 07/27/24 Petra Beckman BLADE SHARPENER.SAFETY COUNCIL DIRECTOR [address] [place] [address] [facility] Internal Medicine 11/06/24 Public Health Advisor Relationship Specialty Start Date End Date Faustina Carcamo MD [address] [place] [address] PCP - General Internal Medicine 04/10/13 Genaro Morales, BLADE SHARPENER.ICE HOCKEY COACH [address] [place] [address] [facility] Internal Medicine 07/23/[address] [address] Nutrition 07/27/24 Petra Beckman APRN.SAFETY COUNCIL DIRECTOR [address] [facility] [place] [address] Traveling Electrician Internal Medicine 11/06/24 Public Health Advisor Relationship Specialty Start Date End Date Fautsina Carcamo MD [address] [facility] [place] [address] PCP - General Internal Medicine 04/10/13 Genaro Morales APRN.ICE HOCKEY COACH [address] [place] [address] Traveling Electrician Internal Medicine 07/23/[address] [place] [address] Nutrition 07/27/24 Petra Beckman APRN.SAFETY COUNCIL DIRECTOR [address] [place] [address] Traveling Electrician Internal Medicine 11/06/24 Public Health Advisor Relationship Specialty Start Date End Date Faustina Carcamo MD [address] [facility] [place] [address] PCP - General Internal Medicine 04/10/[address] [place] [address] Nutrition 07/27/24 Petra Beckman APRN.SAFETY COUNCIL DIRECTOR [address] [place] [address] Traveling Electrician Internal Medicine 11/06/24 Genaro Morales, BLADE SHARPENER.ICE HOCKEY COACH [address] [place] [address] Traveling Electrician Internal Medicine 01/02/25 Public Health Advisor Relationship Specialty Start Date End Date Faustina Carcamo MD [address] [place] [address] PCP - General Internal Medicine 04/10/[address] [place] [address] Nutrition 07/27/24 Petra Beckman BLADE SHARPENER.SAFETY COUNCIL DIRECTOR [address] [place] [address] Traveling Electrician Internal Medicine 11/06/24 Genaro Morales, BLADE SHARPENER.ICE HOCKEY COACH [address] [place] [address] [facility] Internal Medicine 01/02/25 Public Health Advisor Relationship Specialty Start Date End Date Faustina Carcamo MD [address] [place] [address] PCP - General Internal Medicine 04/10/13 Genaro Morales, BLADE SHARPENER.ICE HOCKEY COACH [address] [place] [address] Traveling Electrician Internal Medicine 07/23/24 01/01/[address] [place] [address] Nutrition 07/27/24 Petra Beckman APRN.SAFETY COUNCIL DIRECTOR [address] [place], [place] [address] [facility] Internal Medicine 11/06/24 Genaro Morales APRN.ICE HOCKEY COACH [address] [place], [place] [address] [facility] Internal Medicine 01/02/25 FOR RECORDS PERTAINING TO PATIENTS WHO ARE [...] BE BASED ON THE PRIMARY CLINICAL RECORDS. [facility] [employer] [facility]. provides no warranty or guarantee of the accuracy or completeness of information in this document.
--- NOTE | 2025-01-27 23:09 | EDS_ITS ---
HPI History of Present Illness HPI Narrative: 34-year-old female [id number]. Was walking her Labrador retriever when the dog pulled the leash got wrapped around her left small finger causing pain and swelling. This occurred around 8 PM they came in to have it evaluated. She has never had any surgery to this hand. Denies any other injuries. Chief Complaint: Upper Extremity Injury Informant: patient Occured/Mechanism Mechanism/Context: Yes injury and Yes blunt trauma Onset/Context/Timing Onset: Today Context: Sudden Onset Timing: Continuous Quality of Pain: Sharp Current Severity: Mild Maximum Severity: Mild Associated Symptoms Associated Symptoms: Negative for Parasthesia, Weakness or Loss of Funtion Narrative Narrative: 34-year-old female [id number] left small finger injury walking her dog the leash got wrapped around her finger and pulled. Prior similar symptoms: No Recent Illness/Hospitalization: No PFSH PFS Medical History (Updated 01/27/25 @ 23:[address] Braulio Beltrán MD) OCD (obsessive compulsive disorder) Panic disorder Morbid (severe) obesity due to excess calories Panic disorder with agoraphobia and moderate panic attacks DARLIN (generalized anxiety disorder) Periodic fever syndrome POTS (postural orthostatic tachycardia syndrome) Home Medications ?Medication ?Instructions ?Recorded ?Last Taken ?Type atenolol 25 mg tablet (Tenormin) 25 mg DAILY 01/18/16 Unknown History colchicine 0.6 mg capsule 0.6 mg PO DAILY 03/02/19 Unk nown History fluoxetine 10 mg capsule 20 mg PO DAILY 03/02/19 Unkn own History fluvoxamine 100 mg tablet 200 mg PO DAILY 03/02/19 Unk nown History canakinumab (PF) 150 mg/mL subcut 06/07/24 Unknown His tory subcutaneous solution (Ilaris (PF)) lamotrigine 25 mg tablet 25 mg PO QDAY 42 days #42 ta bs 01/21/25 Unknown Rx naratriptan 2.5 mg tablet mg PO 01/21/25 Unknown Histo ry Allergy/AdvReac Type Severity Reaction Status Date / Time latex Allergy Hives Verified 01/27/25 21:54 topiramate (From Topamax) AdvReac Other Verified 01/27/25 21:54 Family History Other Diabetes Heart disease Lupus Social History (Updated 01/21/25 @ 09:20 by Chloe Rachel) Smoking Status: Never smoker alcohol intake: current alcohol intake frequency: holidays/special occasions only substance use type: marijuana ROS ROS ED ROS Narrative Denies recent illness. Constitutional Constitutional ED: Denies chills or fever(s) Eyes Eyes: Denies blurry vision ENT ENT ED: Reports sore throat; Denies ear pain Cardiovascular Cardiovascular: Denies chest pain Respiratory/Chest Respiratory/Chest: Denies cough or dyspnea Gastrointestinal Gastrointestinal: Denies abdominal pain Genitourinary Genitourinary ED: Denies dysuria or hematuria Musculoskeletal Musculoskeletal: Denies back pain Integumentary Denies abscess Neurologic Neurologic: Denies headache(s) Psychiatric Psychiatric: Denies anxiety Endocrine Endocrinology: Denies cold intolerance Hematologic/Lymphatic Hematologic/Lymphatic: Denies easy bleeding, easy bruising or lymphadenopathy Allergic/Immunologic Allergic/Immunologic ED: Denies mouth swelling, tongue swelling or urticaria EXAM Physical Exam Narrative Exam Narrative: Well-appearing 34-year-old female. Vital signs stable afebrile. H EENT exam pupils round reactive light. Extra motions are intact. Posterior pharynx minimal erythema no exudate. No trouble swallowing or breathing. Appears to be viral pharyngitis. No peritonsillar abscess. Neck nontender no lymphadenopathy. Lungs clear to auscultation. Heart regular rhythm no murmur. Rate about 100. Chest wall ribs nontender. Abdomen soft nontender. Back nontender. Moving all 4 extremities. The left small finger is swollen mildly tender no deformity. She can do full extension limited flexion due to discomfort and swelling. Be very unlikely to have a flexor tendon injury due to the mechanism. Neurologically she is awake and alert. No focal motor deficits. Const Vital Signs: 01/27/25 21:54 Temperature 97 F L Temperature Source Temporal Pulse Rate 136 H Respiratory Rate 20 H Blood Pressure 180/146 H Blood Pressure Mean 157 Pulse Ox 100 Oxygen Delivery Method Room Air Positive well nourished and well developed; Negative for cachectic, contractures or unkempt General Appearance ED: well developed and NAD; Negative for unkempt, cachectic, contractures, cyanotic or diaphoretic Nutritional Appearance: Negative for cachectic HEENT Reports moist mucous membranes HEENT Narrative: Mild posterior pharyngeal erythema. normocephalic and atraumatic Eyes PERRL and EOMs intact bilaterally Neck full ROM and supple Chest Wall inspection of chest normal and palpation of chest normal Resp normal respiratory effort and clear to auscultation bilaterally Cardio regular rate, regular rhythm, S1 normal heart sound, S2 normal heart sound and no murmurs GI non-tender, non-distended and no masses Palpation: soft; Negative for tender, guarding or rebound tenderness present Back/Spine no CVA tenderness Cervical Spine: Negative for cervical spine tenderness Thoracic Spine / Upper Back: Negative for thoracic spinal tenderness Lumbar Spine / Lower Back: Negative for lumbar spinal tenderness Extremity normal to inspection and full ROM Extremity Narrative: Except left small finger mildly swollen. Tender. No deformity. Skin intact. Full extension already degrees limited flexion due to pain. General Extremety ED: Yes edema General Extremity: edema Neuro oriented x3, CN's II-XII intact bilaterally, moves all extremities, no focal motor deficits and no sensory deficits noted Sensorium / Orientation: alert, oriented to person, oriented to place and oriented to time; Negative for orientation impaired Motor Exam: strength 5/5 throughout Psych mental status grossly normal Appearance: Negative for unkempt Skin Lesions: no lesions Rashes: no rashes Trauma: no lacerations or abrasions MDM MDM MDM Narrative Medical decision making narrative: 34-year-old female left small finger injury when it was wrapped around the leash and the dog pulled. X-ray was obtained no fracture or dislocation. Suspect finger sprain and soft tissue injury. Ice and elevate. Motrin and Tylenol. Follow-up if not improving. She also peers to have a mild viral pharyngitis. She was offered rapid strep test even though I think this is viral and she deferred. Said she has had viral illnesses like this before. History & Record Review Discussion w/independent historian: Patient Discharge Plan Triage Chief Complaint: Upper Extremity Injury ED Provider: Braulio Beltrán Dx/Rx/DC Orders Clinical Impression: Finger sprain Instructions: ED Finger Sprain Prescriptions: No Action naratriptan 2.5 mg tablet PO lamotrigine 25 mg tablet 25 mg PO QDAY 42 Days Qty: 42 0RF atenolol [Tenormin] 25 MG tablet 25 mg DAILY fluvoxamine 100 MG tablet 200 mg PO DAILY fluoxetine 10 MG capsule 20 mg PO DAILY colchicine 0.6 MG capsule 0.6 mg PO DAILY Ilaris (PF) 150 mg/mL solution subcut Primary Care Provider: Katie Fernández Referrals: Katie Fernández MD [Primary Care Provider] - 1 Week if not improving Activity Restrictions/Additional Instructions: X-ray of your finger looks good. No fracture. No dislocation. Suspect soft tissue injury. Ice and elevate. To decrease pain and swelling. No jewelry till the swelling is completely gone. Motrin to decrease pain and swelling. Tylenol decreased pain. This should progressively improve. If it is not getting back to normal in a week to 10 days follow-up with your doctor for further evaluation. Print Language: Australian Disposition Disposition: Home, Self Care
== END 2025-01-27 23:20 | disposition home or self-care (01) ==
PROVIDERS: Emergency Provider Emergency Medicine; PCP Internal Medicine; Visit Provider Emergency Medicine
DX: S63.617A Unspecified sprain of left little finger, initial encounter (principal); W23.2XXA Caught, crushed, jammed or pinched between a moving and stationary object, initial encounter; Y93.K1 Activity, walking an animal
CPT/HCPCS: 73140; 99282

== ENCOUNTER 2025-02-22 04:37 | Emergency (ER) | payer MEDICAID, SELFPAY ==
[2025-02-22 04:39] VITALS: BP 153/113; PULSE 108; RESP 18; TEMP 36.8; O2SAT 97; BMI 52.5
[2025-02-22 04:41] VITALS: BP 153/113; PULSE 108; RESP 18; TEMP 36.8; O2SAT 96
--- NOTE | 2025-02-22 05:17 | CT_ITS ---
PROCEDURE: ABDOMEN/PELVIS W IV CONT ONLY 02/22/2025 REASON FOR EXAM: RLQ PAIN TECHNIQUE: ABDOMEN/PELVIS W IV CONT ONLY Coronal and Sagittal reconstruction series were provided. CONTRAST:VOLUME:mL One or more dose reduction techniques were used (e.g., Automated exposure control, adjustment of the mA and/or kV according to patient size, use of iterative reconstruction technique. RADIATION DOSE SUMMARY: CTDlvol:mGy DLP: mGycm COMPARISON: none FINDINGS: Average sized liver showing homogenous parenchymal attenuation with fatty changes. No dilated intra or extra-hepatic biliary tracts. Gall bladder showing no radiodense calculi. No abnormal mural thickening. Clear surrounding fat planes with no sizeable collections. Normal appearance of the pancreas with clear surrounding fat planes. The spleen, adrenal glands, aorta and IVC are unremarkable. Both kidneys are of average size and showing smooth outline with preserved parenchymal thickness. No renal calculi. No hydronephrosis. Left renal hypodense cortical cyst. Under distension of the urinary bladder showing minimal uniform mural thickening with no obvious masses. No obvious masses related to the pelvic viscera. An IUCD is noted. The appendix appears unremarkable. No right iliac inflammatory changes. The examined ascending colon, the transverse colon, the descending colon & small bowel loops are unremarkable. The stomach is unremarkable. No ascites or free air. No obvious pathologically enlarged lymph nodes. Scanned osseous structures show no osseous destruction. Scanned lung bases show no obvious abnormalities CT/Abdomen/Pelvis W IV Cont ONLY IMPRESSION: No acute pelvi-abdominal abnormalities, collections or free air. Reading Location: [facility]
[2025-02-22 05:22] LABS: Red Blood Cells-Urine 0 SEEN /hpf (0-5); Squamous Epithelial Cells - UA 0 SEEN /hpf (5-10)
--- OUTSIDE RECORDS SUMMARY | 2025-02-22 05:25 | XMS RPT_ITS | CCD ---
Author Organization [facility] Care Team Providers Care Autocad Detailer Name Role Phone Faustina Carcamo MD Primary Care Provider Mingo MBBS, Dhanu R Primary Care Provider No, Physician Primary Care Provider UnavailOVI Cruz [...] Faustina Carcamo MD Primary Care Provider Morales SUPERVISOR FELLING BUCKING.SEAL MIXING OPERATOR, Genaro Unavailable Parish SUPERVISOR FELLING BUCKING.TECHNICAL INTERN, Petra Unavailable Crtalic-Lynnette RD Cindy Unavailable CRTALIC-LYNNETTE, CINDY Attending Unavail able TALAMPAS, FAUSTINA D Primary Care Unavailable MORALES, GENARO Referring Unavailable Crtalic-Lynnette RD, Cindy Unavailable Parish SUPERVISOR FELLING BUCKING.TECHNICAL INTERN, Petra Unavailable Parish SUPERVISOR FELLING BUCKING.TECHNICAL INTERN, Petra Unavailable Parish SUPERVISOR FELLING BUCKING.TECHNICAL INTERN, Petra Unavailable Morales SUPERVISOR FELLING BUCKING.SEAL MIXING OPERATOR, Genaro Unavailable Morales SUPERVISOR FELLING BUCKING.SEAL MIXING OPERATOR, Genaro Unavailable Talampas, Faustina D Primary Care Unavailable Lisandro Rachel Attending Unavailable Talampas, Faustina D Primary Care Unavailable Braulio Beltrán Attending Unavailable Talampas, Faustina D Primary Care Unavailable Ermias Kelly Attending Unavailable Talampas, Faustina D Primary Care Unavailable Jerry Donis Attending Unavailable Talampas, Faustina D Primary Care Unavailable Nicholas Santiago Attending Unavailable UNGPRASERT, PATOMPONG Referring Unavailabl e TALAMPAS, FAUSTINA Primary Care Unavailable UNGPRASERT, PATOMPONG Attending Unavailabl e TALAMPAS, FAUSTINA Primary Care Unavailable UNGPRASERT, PATOMPONG Referring Unavailabl e UNGPRASERT, PATOMPONG Attending Unavailabl e TALAMPAS, FAUSTINA Primary Care Unavailable UNGPRASERT, PATOMPONG Referring Unavailabl e TALAMPAS, FAUSTINA Primary Care Unavailable TALAMPAS, FAUSTINA Attending Unavailable TALAMPAS, FAUSTINA Primary Care Unavailable MORALES, GENARO Referring Unavailable ROSSY CLEVELAND Attending Unavailable TALAMPAS, FAUSTINA Primary Care Unavailable TALAMPAS, FAUSTINA Primary Care Unavailable UNGPRASERT, PATOMPONG Referring Unavailabl e UNGPRASERT, PATOMPONG Attending Unavailabl e TALAMPAS, FAUSTINA Primary Care Unavailable TALAMPAS, FAUSTINA Primary Care Unavailable NANI FREEMAN Referring Unavailable KAREN JENKINS Attending Unavailable TALAMPAS, FAUSTINA Primary Care Unavailable TALAMPAS, FAUSTINA Attending Unavailable TALAMPAS, FAUSTINA Primary Care Unavailable UNGPRASERT, PATOMPONG Referring Unavailabl e TALAMPAS, FAUSTINA Primary Care Unavailable UNGPRASERT, PATOMPONG Attending Unavailabl e TALAMPAS, FAUSTINA Primary Care Unavailable GENARO MORALES Attending Unavailable TALAMPAS, FAUSTINA Primary Care Unavailable UNGPRASERT, PATOMPONG Referring Unavailabl e TALAMPAS, FAUSTINA Primary Care Unavailable MOON ENCINAS Attending Unavailable TALAMPAS, FAUSTINA Primary Care Unavailable PETRA BECKMAN Attending Unavailable TALAMPAS, FAUSTINA Primary Care Unavailable TALAMPAS, FAUSTINA Primary Care Unavailable EREKEDAR CUNNINGHAM P Referring Unavailable TALAMPAS, FAUSTINA Primary Care Unavailable TALAMPAS, FAUSTINA Primary Care Unavailable TALAMPAS, FAUSTINA Primary Care Unavailable TALAMPAS, FAUSTINA Primary Care Unavailable ROSAURA SANTACRUZ Referring Unavailable TALAMPAS, FAUSTINA Primary Care Unavailable TALAMPAS, FAUSTINA Attending Unavailable TALAMPAS, FAUSTINA Primary Care Unavailable STEVEN HARRIS Referring Unavailable TALAMPAS, FAUSTINA Primary Care Unavailable MOON ENCINAS Attending Unavailable EREGGKEDAR P Attending Unavailable TALAMPAS, FAUSTINA Primary Care Unavailable SELF Referring Unavailable TALAMPAS, FAUSTINA Primary Care Unavailable UNGPRASERT, PATOMPONG Attending Unavailabl e TALAMPAS, FAUSTINA Primary Care Unavailable UNGPRASERT, PATOMPONG Referring Unavailabl e TALAMPAS, FAUSTINA Primary Care Unavailable UNGPRASERT, PATOMPONG Referring Unavailabl e TALAMPAS, FAUSTINA Primary Care Unavailable TALAMPAS, FAUSTINA Primary Care Unavailable GENARO MORALES Attending Unavailable TALAMPAS, FAUSTINA Primary Care Unavailable AYAAN ROWLEY Attending Unavailable Allergies Allergy Classification Reported Allergen(s) Allergy Type Date of Onset Reaction(s) Facility (20 sources) Latex; Translations: [LATEX, NATURAL RUBBER] Drug Allergy 3 [facility] Work Phone: (20 sources) Seasonal allergy; Translations: [SEASONAL ALLERGIES] Allergy to substance 1 [facility] (20 sources) Latex; Translations: [LATEX] Propensity to adverse reactions to drug 3 [facility] (20 sources) Banana Extract; Translations: [BANANA] Drug Allergy 3 Anaphylaxis, GI Upset, Itching [facility] (1 source) Latex Drug allergy (disorder) 5 [facility] (1 source) topiramate Drug Allergy 5 [facility] Medications Current Medications Medication Drug Class(es) Dates Sig (Normalized) Sig (Original) [id number] actuat albuterol 0.09 mg/actuat metered dose [...] tablet (10 sources) Penicillin-class Antibacterial Start: End: take 1 tablet by mouth twice daily [...] on above: Take 1 capsule by mo [facility] three times daily as needed for cough for up to 7 days. 1 ml canakinumab 150 mg/ml injection (20 sources) Start: 09-15-19 End: 04-17-20 inject 150 mg by subcutaneous injection in the evening canakinumab, PF, (ILARIS, PF,) 150 mg/mL injection Indications: Periodic fever syndrome (HCC) Inject 150mg (1 vial) subcutaneously every 4 weeks. 1 mL 11 02/06/2025 2:15 PM EDT 04/18/2024 Active Start: 06-18-2022 End: [...] tablet (1 source) Corticosteroid Start: 023 End: 023 take 1 tablet by mouth once dexAMETHasone (DECADRON) 4 mg tablet Take 1 tablet by mouth one time only for 1 dose. 1 tablet 0 04/18/2023 04/18/2023 Active Comment on above: Take 1 tablet by horacio one time only for 1 dose. doxycycline hyclate 100 mg oral capsule (4 sources) Tetracycline-class Drug Start: End: take 1 capsule by mouth twice daily doxycycline hyclate (VIBRAMYCIN) 100 mg capsule Take 1 capsule by mouth twice daily for 10 days. 20 capsule 0 02/19/2022 03/01/2022 Active Comment on above: Take 1 capsule by mo [facility] twice daily for 10 days. [id number] 0.3 ml EPINEPHrine 1 mg/ml auto-injector (20 sources) alpha-Adrenergic Agonist, beta-Adrenergic Agonist, Catecholamine Start: End: EPINEPHrine (EPIPEN 2-ISIDRO) 0.3 mg/0.3 mL auto-injector Indications: Toxic effect of latex, accidental (unintentional), subsequent encounter Inject 0.3 mL intramuscularly as needed. For allergic reaction.Seek emergent medical care immediately after use.Disp:1 2-pakw/weight trainer 2 Each 10/26/2024 Active ergocalciferol 1.25 [...] capsule (20 sources) Serotonin Reuptake Inhibitor Start: 09-11-2023 take 1 capsule by mouth once daily [...] once daily. Take 1 capsule by mo ut once daily. Can go up to 20 [...] Take 2 tablets by mo uth once daily as needed for Anxiety. (from [...] Take 1 tablet by horacio th every 6 hours as needed for pain for up to 5 days. Take with food levocetirizine dihydrochloride 5 mg oral tablet (20 sources) Histamine-1 Receptor Antagonist levocetirizine 5 mg tablet Take 5 mg by mouth as needed. Active Comment on above: Take 5 mg by mouth a s needed. levonorgestrel 0.037576 mg/hr intrauterine system (20 sources) Progestin, Progestin-containing [...] mg oral tablet (2 sources) Benzodiazepine Start: End: take 1 tablet by mouth once daily as needed LORazepam (ATIVAN) 1 mg tablet Indications: Situational anxiety Take 1 tablet by mouth once daily as needed for up to 7 days. 7 tablet 09/11/2024 09/18/2024 Active 24 hr metFORMIN hydrochloride 500 mg extended release oral tablet (20 sources) Biguanide Start: 024 End: take 50-59.9 tablets by mouth once [...] above: Take 1 capsule by mo uth two times a day for 5 days. norethindrone 0.35 mg oral tablet (20 sources) Start: take 1 tablet by mouth once daily [...] th once daily. TAKE 1 TABLET BY HORACOI TH EVERY DAY Take 4 tabs daily x 3 days, then 3 tabs x 3 days, 2 tabs x 3 days, then 1 tab x3 days with food. 20 mg daily for 3 da ys, then 15 mg daily for 3 days, then 10 mg daily for 3 days then 5 mg daily for 30 days promethazine hydrochloride 25 mg oral tablet (4 sources) Phenothiazine Start: 01-10-20 25 take 25-50 mg by mouth every six hours as needed promethazine (PHENERGAN) 25 mg tablet Take 1-2 tablets by mouth every 6 hours as needed for nausea/vomiting. 90 tablet 1 01/09/2025 Active propranolol hydrochloride 10 mg oral tablet (20 sources) beta-Adrenergic Ishmael Start: 01-19-20 22 take 1-2 tablets by mouth twice daily [...] inject subcutaneous Ilaris dose 1 Each 12 02/06/2025 2:15 PM EDT 04/24/2024 Active Start: 04-24-2024 Syringe [...] to draw up ilaris dose 1 Each 02/06/2025 2:15 PM EDT 04/24/2024 Active Start: 04-24-2024 Syringe [...] Comment on above: Take 1 capsule by [facility] two times a week. cyclobenzaprine hydrochloride [...] extended release oral tablet (3 sources) Uncompetitive E-lzsobo-T-aspartate Receptor Antagonist, Sigma-1 Agonist Start: 2022 End: 2022 take 1 tablet by mouth twice daily dextromethorphan-guai FENesin (MUCINEX DM) 30-600 mg per tablet Take 1 tablet by mouth twice daily for 7 days. 14 tablet 0 04/18/2023 04/25/2023 Comment on above: Take 1 tablet by [facility] twice daily for 7 days. diphenhydrAMINE [...] Comment on above: Take 1 tablet by [facility] once daily as needed. methylPREDNISolone (9 sources) [...] above: Take 1 tablet by horacio every 8 hours as needed. Pedialyte (PEDIALYTE) soln (20 sources) Start: 04-22-2021 End: 06-03-2022 take 948 mL by mouth once daily Pedialyte (PEDIALYTE) soln Indications: POTS (postural orthostatic tachycardia syndrome) Take 948 mL by mouth once daily. Diagnosis: POTS I49.8 73635 mL 11 04/22/2021 06/03/2022 Discontinued (Discontinued by Patient) Start: 04-22-2021 take 948 mL by mouth once daily Pedialyte (PEDIALYTE) soln Indications: POTS (postural orthostatic tachycardia syndrome) Take 948 mL by mouth once daily. Diagnosis: POTS I49.8 20851 mL 11 04/22/2021 Active Start: 04-22-2021 End: 04-22-2022 take 948 mL by mouth once daily Pedialyte (PEDIALYTE) soln Indications: POTS (postural orthostatic tachycardia syndrome) Take 948 mL by mouth once daily. Diagnosis: POTS I49.8 16437 mL 11 04/22/2021 04/22/2022 Active Start: 03-07-2020 End: 02-09-2021 take 500 mL by mouth once daily Pedialyte (PEDIALYTE) soln Indications: Recurrent fever , Diarrhea due to drug , Inappropriate sinus node tachycardia (HCC) , Neurocirculatory asthenia Take 500 mL by mouth once daily. As directed 81052 mL 11 03/07/2020 02/09/2021 Discontinued Comment on [...] Comment on above: Take 1 capsule by [facility] daily at bedtime. 10 ml sodium chloride [...] sources) Tonsillitis; Translations: [Acute tonsillitis, unspecified] Onset: 5 11-22-2024 Episodic Allergic reactions (3 sources) Latex [...] Onset: 5 Episodic Contraceptive and procreative management (15 sources) Patient encounter status; Translations: [Encounter for [...] [Periodic fever syndromes] Onset: 0 05-08-2020 Chronic Miscellaneous mental health disorders (20 sources) Neurocirculatory [...] tissue disease (1 source) Pain in left finger(s); Translations: [Pain in left finger(s)] Onset: 5 Episodic Other female genital disorders (1 source) [...] of consciousness, subsequent encounter] Onset: 2 Episodic Malaise and fatigue (2 sources) Fatigue; Translations: [Other fatigue] Onset: 5 10-16-2024 Episodic Mood disorders (5 sources) Mood disorders Onset: 2 Resolved: 2 04-16-2022 Neoplasms of unspecified nature or uncertain behavior (20 sources) Thrombocytosis; Translations: [Thrombocytosis] Onset: 7 09-01-2016 Episodic Nonspecific chest pain (7 sources) Symptom: chest wall; Translations: [Other chest pain] Onset: 3 Episodic Other aftercare (1 source) Other meterman (current) drug therapy; Translations: [Encounter for long-term current use of medication] Onset: 4 Episodic Other circulatory disease (1 source) Postural orthostatic tachycardia syndrome ; Translations: [Postural orthostatic tachycardia syndrome (POTS)] Onset: 5 Episodic Other connective tissue disease (20 sources) Fibromyalgia; Translations: [Fibromyalgia] Onset: 4 11-15-2013 Episodic Other connective tissue disease (1 source) Fibromyalgia; Translations: [Fibromyalgia] Onset: 4 Episodic Other connective tissue disease (1 source) Myalgia, unspecified site; Translations: [Myalgias] Onset: 5 Episodic Other gastrointestinal disorders (1 source) Heartburn; [...] of left foot] Onset: 2 11-10-2021 Episodic Pleurisy; pneumothorax; pulmonary collapse (2 sources) [...] Name Value Interpretation Reference Range Facil ity Emergency Department Summary on 01-27-2025 Emergency Department Summary [facility] Medical Records Department [address] [place] [address] Emergency Department Summary 01/27/25 MR#: [id number] Acct: [id number] Name: LILIAM THOMPSON Rep #: [id number] : 1990 34 From: Braulio Beltrán MD PCP: Dr. Faustina Carcamo MD Status:DEP ER Location: ED HPI History of Present Illness HPI Narrative: 34-year-old female ysfit-zsvi-inhjfkgc. Was walking her Labrador retriever when the dog pulled the leash got wrapped around her left small finger causing pain and swelling. This occurred around 8 PM they came in to have it evaluated. She has never had any surgery to this hand. Denies any other injuries. Chief Complaint: Upper Extremity Injury Informant: patient Occured/Mechanism Mechanism/Context: Yes injury and Yes blunt trauma Onset/Context/Timing Onset: Today Context: Sudden Onset Timing: Continuous Quality of Pain: Sharp Current Severity: Mild Maximum Severity: Mild Associated Symptoms Associated Symptoms: Negative for Parasthesia, Weakness or Loss of Funtion Narrative Narrative: 34-year-old female yqods-aurn-czbnojvg left small finger injury walking her dog the leash got wrapped around her finger and pulled. Prior similar symptoms: No Recent Illness/Hospitalizatio n: No PFSH PFS Medical History (Updated 01/27/25 @ 23:[address] Braulio Beltrán MD) OCD (obsessive compulsive disorder) Panic disorder Morbid (severe) obesity due to excess calories Panic disorder with agoraphobia and moderate panic attacks DARLIN (generalized anxiety disorder) Periodic fever syndrome POTS (postural orthostatic tachycardia syndrome) Home Medications ???Medication ???Instructions ???Recorded ???Last Taken ???Type atenolol 25 mg tablet (Tenormin) 25 mg DAILY 01/18/16 Unknown Histo ry colchicine 0.6 mg capsule 0.6 mg PO DAILY 03/02/19 Unknown H istory fluoxetine 10 mg capsule 20 mg PO DAILY 03/02/19 Unknown Hi story fluvoxamine 100 mg tablet 200 mg PO DAILY 03/02/19 Unknown H istory canakinumab (PF) 150 mg/mL subcut 06/07/24 Unknown History subcutaneous solution (Ilaris (PF)) lamotrigine 25 mg tablet 25 mg PO QDAY 42 days #42 tabs 05/09 Unknown Rx naratriptan 2.5 mg tablet mg PO 01/21/25 Unknown History Allergy/AdvReac Type Severity Reaction Status Date / Time latex Allergy Hives Verified 01/27/25 21:54 topiramate (From Topamax) AdvReac Other Verified 01/27/25 21:54 Family History Other Diabetes Heart disease Lupus Social History (Updated 01/21/25 @ 09:20 by Chloe Rachel) Smoking Status: Never smoker alcohol intake: current alcohol intake frequency: holidays/special occasions only substance use type: marijuana ROS ROS ED ROS Narrative Denies recent illness. Constitutional Constitutional ED: Denies chills or fever(s) Eyes Eyes: Denies blurry vision ENT ENT ED: Reports sore throat; Denies ear pain Cardiovascular Cardiovascular: Denies chest pain Respiratory/Chest Respiratory/Chest: Denies cough or dyspnea Gastrointestinal Gastrointestinal: Denies abdominal pain Genitourinary Genitourinary ED: Denies dysuria or hematuria Musculoskeletal Musculoskeletal: Denies back pain Integumentary Denies abscess Neurologic Neurologic: Denies headache(s) Psychiatric Psychiatric: Denies anxiety Endocrine Endocrinology: Denies cold intolerance Hematologic/Lymphatic Hematologic/Lymphatic: Denies easy bleeding, easy bruising or lymphadenopathy Allergic/Immunologic Allergic/Immunologic ED: Denies mouth swelling, tongue swelling or urticaria EXAM Physical Exam Narrative Exam Narrative: Well-appearing 34-year-old female. Vital signs stable afebrile. H EENT exam pupils round reactive light. Extra motions are intact. Posterior pharynx minimal erythema no exudate. No trouble swallowing or breathing. Appears to be viral pharyngitis. No peritonsillar abscess. Neck nontender no lymphadenopathy. Lungs clear to auscultation. Heart regular rhythm no murmur. Rate about 100. Chest wall ribs nontender. Abdomen soft nontender. Back nontender. Moving all 4 extremities. The left small finger is swollen mildly tender no deformity. She can do full extension limited flexion due to discomfort and swelling. Be very unlikely to have a flexor tendon injury due to the mechanism. Neurologically she is awake and alert. No focal motor deficits. Const Vital Signs: 01/27/25 21:54 Temperature 97 F L Temperature Source Temporal Pulse Rate 136 H Respiratory Rate 20 H Blood Pressure 180/146 H Blood Pressure Mean 157 Pulse Ox 100 Oxygen Delivery Method Room Air Positive well nourished and well developed; Negative for cachectic, contractures or unkempt General Appearance ED: well developed and NAD; Negative for unkempt, cac (more content not included)... Normal [facility] Finger(s) Min 2 Viewson 01-13 Finger(s) Min 2 Views [facility] Imaging Services [address] [place], [place] [address] Finger(s) Min 2 Views MR#: [id number] Acct: [id number] Name: LILIAM THOMPSON Rep #: [id number] : 1990 F 34 From: Luís olmos MD PCP: Dr. aFustina Carcamo MD Status: DEP ER Study: Finger(s) Min 2 Views Date of Exam: 01/27/25 Exam# [id number] Ordering Dr: Braulio Beltrán MD PROCEDURE: FINGER(S) MIN 2 VIEWS 01/27/2025 REASON FOR EXAM: LEFT SMALL FINGER INJURY TECHNIQUE: FINGER(S) MIN 2 VIEWS COMPARISON: None. FINDINGS: Soft tissue edema and swelling. Normal metacarpal head. Normal metacarpophalangeal joint. Normal proximal phalanx. Normal middle phalanx. Normal distal phalanx. Normal proximal interphalangeal joint. Normal distal interphalangeal joint. RAD/Finger(s) Min 2 Views IMPRESSION: Soft tissue edema and swelling. Reading Location: [place] [address] CC: Dr. Braulio Beltrán MD; Dr. Faustina Carcamo MD Auto Fleet Manager: Signed [facility] MR/BMS.BPon 01-21-2025 MR/BMS.BP [address], [address] [place] [id number] OFFICE VISIT Date of Service: 01/21/25 MR#: [id number] Acct: [id number] Name: LILIAM THOMPSON Rep #: [id number] : 1990 Provider: Dr. Jerry Shaikh se, DO Age/Sex: 34/F Location: [facility] Status: Signed Intake Vital Signs 07/20/24 12:47 [...] type symptoms. Was diagnosed with OCD around 7075-9293. Symptoms had been worsening as of last [...] having done an eating disorder IOP through [facility] last year. Admits to having been treated [...] brother 5 (more content not included)... Normal [facility] CNOVon 01-09-2025 CNOV Normal [facility] CNOVon 12-21-2024 CNOV Normal [facility] STREP A MOLECULAR (POC)on Procedural Control Valid [facility] Strep A (POCT) Negative Negative [facility] BUN SerPl-mCncon 12-18-2024 Urea nitrogen [Mass/Vol] 8 mg/dL Normal 7-21 [facility] Comment on above: Order Comment: Speci men Type: BLOOD SPECIMENOrdering Facility: [facility] Address: [address] [place] [address] Performed By: #### 3 094-0, 65830-2, 84170-5 ####[facility] LABCLIA [id number] [place] [address] [place]#### 1988-5 ####[facility] LABCLIA [id number] [place] [address] [place] CBC W Auto Differential pane l (Bld)on 12-18-2024 Basophils (Bld) [#/Vol] 0.03 10*3/uL Normal <0.11 [facility] Comment on above: Order Comment: Speci men Type: BLOOD SPECIMENOrdering Facility: [facility] Address: [address] [place] [address] Performed By: #### 5 7021-8, 4537-7 ####[facility] LABCLIA [id number] [place] [address] [place] Basophils/100 WBC (Bld) 0.5 % Normal [facility] Comment on above: Order Comment: Speci men Type: BLOOD SPECIMENOrdering Facility: [facility] Address: [address] [place] [address] Performed By: #### 5 7021-8, 4537-7 ####[facility] LABCLIA [id number] [place] [id number] [place] Differential cell count method Nom (Bld) Auto Normal [facility] Comment on above: Order Comment: Speci men Type: BLOOD SPECIMENOrdering Facility: [facility] Address: [address] [place] [address] Performed By: #### 5 7021-8, 4536-7 ####[facility] LABCLIA [id number] [place] [address] [place] Eosinophils (Bld) [#/Vol] 0.11 10*3/uL Normal <0.46 [facility] Comment on above: Order Comment: Speci men Type: BLOOD SPECIMENOrdering Facility: [facility] Address: [address] [place] [address] Performed By: #### 5 7021-8, 4536-7 ####[facility] LABCLIA [id number] [place] [address] [place] Eosinophils/100 WBC (Bld) 1.8 % Normal [facility] Comment on above: Order Comment: Speci men Type: BLOOD SPECIMENOrdering Facility: [facility] Address: [address] [place] [address] Performed By: #### 5 7021-8, 7 ####[facility] LABIA [id number] [place] [address] [place] Erythrocyte distribution width (RBC) [Ratio] 12.9 % Normal 11.5-15.0 [facility] Comment on above: Order Comment: Speci men Type: BLOOD SPECIMENOrdering Facility: [facility] Address: [address] [place] [address] Performed By: #### 5 7021-8, 7 ####[facility] LABCLIA [id number] [place] [address] [place] Hematocrit (Bld) [Volume fraction] 40.6 % Normal 36.0-46.0 [facility] Comment on above: Order Comment: Speci men Type: BLOOD SPECIMENOrdering Facility: [facility] Address: [address] [place] [address] Performed By: #### 5 7021-8, 4536-7 ####[facility] LABCLIA [id number] [place] [address] [place] Hemoglobin (Bld) [Mass/Vol] 13.3 g/dL Normal 11.5-15.5 [facility] Comment on above: Order Comment: Speci men Type: BLOOD SPECIMENOrdering Facility: [facility] Address: [address] [place] [address] Performed By: #### 5 7021-8, 4537-7 ####[facility] LABCLIA [id number] [place] [address] [place] Immature granulocytes (Bld) [#/Vol] 10*3/uL Normal <0.10 [facility] Comment on above: Order Comment: Speci men Type: BLOOD SPECIMENOrdering Facility: [facility] Address: [address] [place] [address] Performed By: #### 5 7021-8, 4537-7 ####[facility] LABIA [id number] [place] [address] [place] Immature granulocytes/100 WBC (Bld) 0.3 % Normal [facility] Comment on above: Order Comment: Speci men Type: BLOOD SPECIMENOrdering Facility: [facility] Address: [address] [place] [address] Performed By: #### 5 7021-8, 7-7 ####[facility] LABIA [id number] [place] [address] [place] Lymphocytes (Bld) [#/Vol] 2.19 10*3/uL Normal 1.00-4.00 [facility] Comment on above: Order Comment: Speci men Type: BLOOD SPECIMENOrdering Facility: [facility] Address: [address] [place] [address] Performed By: #### 5 7021-8, 4537-7 ####[facility] LABCLIA [id number] [id number] [address] [place] Lymphocytes/100 WBC (Bld) 36.8 % Normal [facility] Comment on above: Order Comment: Speci men Type: BLOOD SPECIMENOrdering Facility: [facility] Address: [address] [place] [address] Performed By: #### 5 7021-8, 4536-7 ####[facility] LABCLIA [id number] [place] [address] [place] MCH (RBC) [Entitic mass] 30.0 pg Normal 26.0-34.0 [facility] Comment on above: Order Comment: Speci men Type: BLOOD SPECIMENOrdering Facility: [facility] Address: [address] [place] [address] Performed By: #### 5 7021-8, 4536-7 ####[facility] LABCLIA [id number] [place] [address] [place] MCHC (RBC) [Mass/Vol] 32.8 g/dL Normal 30.5-36.0 [facility] Comment on above: Order Comment: Speci men Type: BLOOD SPECIMENOrdering Facility: [facility] Address: [address] [place] [address] Performed By: #### 5 7021-8, 4536-7 ####[facility] LABCLIA [id number] [place] [address] [place] MCV (RBC) [Entitic vol] 91.6 fL Normal 80.0-100.0 [facility] Comment on above: Order Comment: Speci men Type: BLOOD SPECIMENOrdering Facility: [facility] Address: [address] [place] [address] Performed By: #### 5 7021-8, 7 ####[facility] LABCLIA [id number] [place] [address] [place] Monocytes (Bld) [#/Vol] 0.53 10*3/uL Normal <0.87 [facility] Comment on above: Order Comment: Speci men Type: BLOOD SPECIMENOrdering Facility: [facility] Address: [address] [place] [address] Performed By: #### 5 7021-8, 4536-7 ####[facility] LABCLIA [id number] [facility] [address] [place] [address] [place] Monocytes/100 WBC (Bld) 8.9 % Normal [facility] Comment on above: Order Comment: Speci men Type: BLOOD SPECIMENOrdering Facility: [facility] Address: [address] [place] [address] Performed By: #### 5 7021-8, 7 ####[facility] LABCLIA [id number] [place] [address] [place] Neutrophils (Bld) [#/Vol] 3.07 10*3/uL Normal 1.45-7.50 [facility] Comment on above: Order Comment: Speci men Type: BLOOD SPECIMENOrdering Facility: [facility] Address: [address] [place] [address] Performed By: #### 5 7021-8, 7 ####[facility] LABCLIA [id number] [place] [address] [place] Neutrophils/100 WBC (Bld) 51.7 % Normal [facility] Comment on above: Order Comment: Speci men Type: BLOOD SPECIMENOrdering Facility: [facility] Address: [address] [place] [address] Performed By: #### 5 7021-8, 4536-7 ####[facility] LABCLIA [id number] [facility] [place] [id number] [place] Nucleated RBC (Bld) [#/Vol] 10*3/uL Normal <0.01 [facility] Comment on above: Order Comment: Speci men Type: BLOOD SPECIMENOrdering Facility: [facility] Address: [address] [place] [address] Performed By: #### 5 7021-8, 7-7 ####[facility] LABIA [id number] [place] [address] [place] Nucleated RBC/100 WBC (Bld) [Ratio] 0.0 /100 WBC Normal [facility] Comment on above: Order Comment: Speci men Type: BLOOD SPECIMENOrdering Facility: [facility] Address: [address] [place] [address] Performed By: #### 5 7021-8, 4536-7 ####[facility] LABIA [id number] [place] [address] [place] Platelet mean volume (Bld) [Entitic vol] 10.0 fL Normal 9.0-12.7 [facility] Comment on above: Order Comment: Speci men Type: BLOOD SPECIMENOrdering Facility: [facility] Address: [address] [place] [address] Performed By: #### 5 7021-8, 4536-7 ####[facility] LABIA [id number] [place] [address] [place] Platelets (Bld) [#/Vol] 354 10*3/uL Normal 150-400 [facility] Comment on above: Order Comment: Speci men Type: BLOOD SPECIMENOrdering Facility: [facility] Address: [address] [place] [address] Performed By: #### 5 7021-8, 4536-7 ####[facility] LABIA [id number] [place] [id number] [place] RBC (Bld) [#/Vol] 4.43 10*6/uL Normal 3.90-5.20 [facility] Comment on above: Order Comment: Speci men Type: BLOOD SPECIMENOrdering Facility: [facility] Address: [address] [place] [address] Performed By: #### 5 7021-8, 4536-7 ####[facility] LABCLIA [id number] [place] [address] [place] WBC (Bld) [#/Vol] 5.95 10*3/uL Normal 3.70-11.00 [facility] Comment on above: Order Comment: Speci men Type: BLOOD SPECIMENOrdering Facility: [facility] Address: [address] [place] [address] Performed By: #### 5 7021-8, 4537-7 ####[facility] LABCLIA [id number] [place] [address] [place] CNOVon 12-18-2024 CNOV Normal [facility] CNPNon 12-18-2024 CNPN Normal [facility] CRP SerPl-mCncon 12-18-2024 CRP [Mass/Vol] mg/L Normal <0.9 [facility] Comment on above: Order Comment: Speci men Type: BLOOD SPECIMENOrdering Facility: [facility] Address: [address] [place] [address] Performed By: #### 3 094-0, 98567-4, 68671-2 ####[facility] LABCLIA [id number] [place] [address] [place]#### 1986-5 ####[facility] LABCLIA [id number] [place] [address] [place] Creatinine + eGFR Pnl SerPlB ldon 12-18-2024 Creatinine and Glomerular filtration rate.predicted panel (S/P/Bld) 126 mL/min/1.73m??? Normal >=60 [facility] Comment on above: Order Comment: Speci men Type: BLOOD SPECIMENOrdering Facility: [facility] Address: [address] [place] [address] Result Comment: Imelda mated Glomerular Filtration Rate [...] actual GFR. Performed By: #### 3 094-0, 29102-9, 98410-4 ####[facility] LABCLIA [id number] [address] [place]#### 1987-12 ####[facility] LABCLIA [id number] [address] OF [facility] Creatinine and Glomerular fi ltration rate.predicted panel (S/P/Bld)on 12-18-2024 Creatinine [Mass/Vol] 0.53 mg/dL Low 0.58 - 0.96 mg/dL [facility] GFR/1.73 sq M.predicted among non-blacks MDRD (S/P/Bld) [Vol rate/Area] 126 mL/min/{1.73_m2} - PINF [facility] Comment on above: Estimated Glomerular Filtration Rate [...] Interpretation and review of laboratory results Abnormal [facility] Creatinine [Mass/Vol] 0.53 mg/dL Low 0.58-0.96 [facility] Comment on above: Order Comment: Speci men Type: BLOOD SPECIMENOrdering Facility: [facility] Address: [address] [place] [address] Performed By: #### 3 094-0, 03201-7, 40221-4 ####[facility] LABCLIA [id number] [address]#### 1985-12 ####[facility] LABCLIA [id number] [address] [place] ESR Westergren method (Bld) [Velocity]on 12-18-2024 ESR (Bld) [Velocity] 2 mm/h Normal 0-20 [facility] Comment on above: Order Comment: Speci men Type: BLOOD SPECIMENOrdering Facility: [facility] Address: [address] [place] [address] Performed By: #### 5 7021-8, 4537-7 ####[facility] LABCLIA [id number] [place] [address] [place] Hepatic function 2000 panelo n 12-18-2024 Albumin [Mass/Vol] 4.1 g/dL 3.9 - 4.9 g/dL [facility] ALP [Catalytic activity/Vol] 52 U/L 34 - 123 U/L [facility] ALT [Catalytic activity/Vol] 32 U/L 7 - 38 U/L [facility] AST [Catalytic activity/Vol] 22 U/L 13 - 35 U/L [facility] Bilirubin [Mass/Vol] 0.6 mg/dL 0.2 - 1.3 mg/dL [facility] Bilirubin.conjugated [Mass/Vol] 0.1 mg/dL NINF - 0.3 mg/dL [facility] Protein [Mass/Vol] 6.4 g/dL 6.3 - 8.0 g/dL [facility] Albumin [Mass/Vol] 4.1 g/dL Normal 3.9-4.9 [facility] Comment on above: Order Comment: Speci men Type: BLOOD SPECIMENOrdering Facility: [facility] Address: [address] [place] [address] Performed By: #### 3 094-0, 05173-8, 38578-9 ####[facility] LABCLIA [id number] [place] [address] [place]#### 1986-5 ####[facility] LABCLIA [id number] [place] [id number] [place] ALP [Catalytic activity/Vol] 52 U/L Normal 34-123 [facility] Comment on above: Order Comment: Speci men Type: BLOOD SPECIMENOrdering Facility: [facility] Address: [address] [place] [address] Performed By: #### 3 094-0, 15744-7, ####[facility] LABCLIA [id number] [place] [address] [place]#### 1987-12 ####[facility] LABCLIA [id number] [place] [address] [place] ALT [Catalytic activity/Vol] 32 U/L Normal 7-38 [facility] Comment on above: Order Comment: Speci men Type: BLOOD SPECIMENOrdering Facility: [facility] Address: [address] [place] [address] Performed By: #### 3 094-0, 90677-8, ####[facility] LABCLIA [id number] [place] [address] [place]#### 1987-12 ####[facility] LABCLIA [id number] [place] [address] [place] AST [Catalytic activity/Vol] 22 U/L Normal 13-35 [facility] Comment on above: Order Comment: Speci men Type: BLOOD SPECIMENOrdering Facility: [facility] Address: [address] [place] [address] Performed By: #### 3 094-0, , ####[facility] LABCLIA [id number] [place] [address] [place]#### 1987-12 ####[facility] LABCLIA [id number] [place] [id number] [place] Bilirubin [Mass/Vol] 0.6 mg/dL Normal 0.2-1.3 [facility] Comment on above: Order Comment: Speci men Type: BLOOD SPECIMENOrdering Facility: [facility] Address: [address] [place] [address] Performed By: #### 3 094-0, 16914-2, ####[facility] LABCLIA [id number] [place] [address] [facility] [place]#### 1987-12 ####[facility] LABCLIA [id number] [facility] [address] [address] [place] Bilirubin.conjugated [Mass/Vol] 0.1 mg/dL Normal <0.3 [facility] Comment on above: Order Comment: Speci men Type: BLOOD SPECIMENOrdering Facility: [facility] Address: [address] [place] [address] Performed By: #### 3 094-0, 41119-4, ####[facility] LABCLIA [id number] [address] [place]#### 1985-12 ####[facility] LABCLIA [id number] [address], [place] [address] [place] Protein [Mass/Vol] 6.4 g/dL Normal 6.3-8.0 [facility] Comment on above: Order Comment: Speci men Type: BLOOD SPECIMENOrdering Facility: [facility] Address: [address] [place] [address] Performed By: #### 3 094-0, 29419-5, ####[facility] LABCLIA [id number] [place] [address] [place]#### 1985-12 ####[facility] LABCLIA [id number] [address] [place] [address] [place] No Panel Informationon 12-18 Interpretation and review of laboratory results Normal [facility] UREA NITROGENon 12-18-2024 Urea nitrogen [Mass/Vol] 8 mg/dL 7 - 21 mg/dL [facility] BUN SerPl-mCncon 11-23-2024 Urea nitrogen [Mass/Vol] 6 mg/dL Low 7-21 [facility] Comment on above: Order Comment: Speci men Type: BLOOD SPECIMENOrdering Facility: [facility] Address: [address] [place] [address] Performed By: #### 1 988-5, 3094-0, 35425-1, 14799-7 ####[facility] LABCLIA [id number] [place] [address] [place] CBC W Auto Differential pane l (Bld)on 11-23-2024 Basophils (Bld) [#/Vol] 0.06 10*3/uL Normal <0.11 [facility] Comment on above: Order Comment: Speci men Type: BLOOD SPECIMENOrdering Facility: [facility] Address: [address] [place] [address] Performed By: #### 5 7021-8, 4537-7 ####[facility] LABCLIA [id number] [place] [address] [place] Basophils/100 WBC (Bld) 0.9 % Normal [facility] Comment on above: Order Comment: Speci men Type: BLOOD SPECIMENOrdering Facility: [facility] Address: [address] [place] [address] Performed By: #### 5 7021-8, 4536-7 ####[facility] LABCLIA [id number] [place] [address] [place] Differential cell count method Nom (Bld) Auto Normal [facility] Comment on above: Order Comment: Speci men Type: BLOOD SPECIMENOrdering Facility: [facility] Address: [address] [place] [address] Performed By: #### 5 7021-8, 206-7 ####[facility] LABCLIA [id number] [place] [id number] [place] Eosinophils (Bld) [#/Vol] 0.20 10*3/uL Normal <0.46 [facility] Comment on above: Order Comment: Speci men Type: BLOOD SPECIMENOrdering Facility: [facility] Address: [address] [place] [address] Performed By: #### 5 7021-8, 4536-7 ####[facility] LABCLIA [id number] [place] [address] [place] Eosinophils/100 WBC (Bld) 2.9 % Normal [facility] Comment on above: Order Comment: Speci men Type: BLOOD SPECIMENOrdering Facility: [facility] Address: [address] [place] [address] Performed By: #### 5 7021-8, 4536-7 ####[facility] LABIA [id number] [place] [address] [place] Erythrocyte distribution width (RBC) [Ratio] 12.3 % Normal 11.5-15.0 [facility] Comment on above: Order Comment: Speci men Type: BLOOD SPECIMENOrdering Facility: [facility] Address: [address] [place] [address] Performed By: #### 5 7021-8, 4536-7 ####[facility] LABIA [id number] [place] [address] [place] Hematocrit (Bld) [Volume fraction] 41.3 % Normal 36.0-46.0 [facility] Comment on above: Order Comment: Speci men Type: BLOOD SPECIMENOrdering Facility: [facility] Address: [address] [place] [address] Performed By: #### 5 7021-8, 4536-7 ####[facility] LABIA [id number] [place] [id number] [place] Hemoglobin (Bld) [Mass/Vol] 13.5 g/dL Normal 11.5-15.5 [facility] Comment on above: Order Comment: Speci men Type: BLOOD SPECIMENOrdering Facility: [facility] Address: [address] [place] [address] Performed By: #### 5 7021-8, 4536-7 ####[facility] LABCLIA [id number] [facility] [address] [place] [address] [place] Immature granulocytes (Bld) [#/Vol] 0.04 10*3/uL Normal <0.10 [facility] Comment on above: Order Comment: Speci men Type: BLOOD SPECIMENOrdering Facility: [facility] Address: [address] [place] [address] Performed By: #### 5 7021-8, 7 ####[facility] LABCLIA [id number] [address], [place] [address] [place] Immature granulocytes/100 WBC (Bld) 0.6 % Normal [facility] Comment on above: Order Comment: Speci men Type: BLOOD SPECIMENOrdering Facility: [facility] Address: [address] [place] [address] Performed By: #### 5 7021-8, 4536-7 ####[facility] LABCLIA [id number] [address], [place] [address] [place] Lymphocytes (Bld) [#/Vol] 2.79 10*3/uL Normal 1.00-4.00 [facility] Comment on above: Order Comment: Speci men Type: BLOOD SPECIMENOrdering Facility: [facility] Address: [address] [place] [address] Performed By: #### 5 7021-8, 7 ####[facility] LABCLIA [id number] [facility] [address], [place] [address] [place] Lymphocytes/100 WBC (Bld) 41.0 % Normal [facility] Comment on above: Order Comment: Speci men Type: BLOOD SPECIMENOrdering Facility: [facility] Address: [address] [place] [address] Performed By: #### 5 7021-8, 7-7 ####[facility] LABCLIA [id number] [place] [address] [place] MCH (RBC) [Entitic mass] 30.2 pg Normal 26.0-34.0 [facility] Comment on above: Order Comment: Speci men Type: BLOOD SPECIMENOrdering Facility: [facility] Address: [address] [place] [address] Performed By: #### 5 7021-8, 4537-7 ####[facility] LABCLIA [id number] [place] [address] [place] MCHC (RBC) [Mass/Vol] 32.7 g/dL Normal 30.5-36.0 [facility] Comment on above: Order Comment: Speci men Type: BLOOD SPECIMENOrdering Facility: [facility] Address: [address] [place] [address] Performed By: #### 5 7021-8, 4537-7 ####[facility] LABCLIA [id number] [address] [place] MCV (RBC) [Entitic vol] 92.4 fL Normal 80.0-100.0 [facility] Comment on above: Order Comment: Speci men Type: BLOOD SPECIMENOrdering Facility: [facility] Address: [address] [place] [address] Performed By: #### 5 7021-8, 4537-7 ####[facility] LABCLIA [id number] [place] [address] [place] Monocytes (Bld) [#/Vol] 0.73 10*3/uL Normal <0.87 [facility] Comment on above: Order Comment: Speci men Type: BLOOD SPECIMENOrdering Facility: [facility] Address: [address] [place] [address] Performed By: #### 5 7021-8, 4537-7 ####[facility] LABCLIA [id number] [address] [place] Monocytes/100 WBC (Bld) 10.7 % Normal [facility] Comment on above: Order Comment: Speci men Type: BLOOD SPECIMENOrdering Facility: [facility] Address: [address] [place] [address] Performed By: #### 5 7021-8, 4536-7 ####[facility] LABCLIA [id number] [facility] [address] [address] [place] Neutrophils (Bld) [#/Vol] 2.98 10*3/uL Normal 1.45-7.50 [facility] Comment on above: Order Comment: Speci men Type: BLOOD SPECIMENOrdering Facility: [facility] Address: [address] [place] [address] Performed By: #### 5 7021-8, 7 ####[facility] LABCLIA [id number] [place] [address] [place] Neutrophils/100 WBC (Bld) 43.9 % Normal [facility] Comment on above: Order Comment: Speci men Type: BLOOD SPECIMENOrdering Facility: [facility] Address: [address] [place] [address] Performed By: #### 5 7021-8, 7 ####[facility] LABCLIA [id number] [place] [address] [place] Nucleated RBC (Bld) [#/Vol] 10*3/uL Normal <0.01 [facility] Comment on above: Order Comment: Speci men Type: BLOOD SPECIMENOrdering Facility: [facility] Address: [address] [place] [address] Performed By: #### 5 7021-8, 4536-7 ####[facility] LABCLIA [id number] [place] [address] [place] Nucleated RBC/100 WBC (Bld) [Ratio] 0.0 /100 WBC Normal [facility] Comment on above: Order Comment: Speci men Type: BLOOD SPECIMENOrdering Facility: [facility] Address: [address] [place] [address] Performed By: #### 5 7021-8, 7-7 ####[facility] LABIA [id number] [place] [id number] [place] Platelet mean volume (Bld) [Entitic vol] 10.2 fL Normal 9.0-12.7 [facility] Comment on above: Order Comment: Speci men Type: BLOOD SPECIMENOrdering Facility: [facility] Address: [address] [place] [address] Performed By: #### 5 7021-8, 4537-7 ####[facility] LABIA [id number] [place] [address] [place] Platelets (Bld) [#/Vol] 425 10*3/uL High 150-400 [facility] Comment on above: Order Comment: Speci men Type: BLOOD SPECIMENOrdering Facility: [facility] Address: [address] [place] [address] Performed By: #### 5 7021-8, 4537-7 ####[facility] LABIA [id number] [place] [address] [place] RBC (Bld) [#/Vol] 4.47 10*6/uL Normal 3.90-5.20 [facility] Comment on above: Order Comment: Speci men Type: BLOOD SPECIMENOrdering Facility: [facility] Address: [address] [place] [address] Performed By: #### 5 7021-8, 7-7 ####[facility] LABIA [id number] [place] [id number] [place] WBC (Bld) [#/Vol] 6.80 10*3/uL Normal 3.70-11.00 [facility] Comment on above: Order Comment: Speci men Type: BLOOD SPECIMENOrdering Facility: [facility] Address: [address] [place] [address] Performed By: #### 5 7021-8, 4537-7 ####[facility] LABCLIA [id number] [place] [id number] [place] CNPNon 11-23-2024 CNPN Normal [facility] CRP SerPl-mCncon 11-23-2024 CRP [Mass/Vol] 2.3 mg/dL High <0.9 [facility] Comment on above: Order Comment: Speci men Type: BLOOD SPECIMENOrdering Facility: [facility] Address: [address] [place] [address] Performed By: #### 1 988-5, 3094-0, 30994-8, 43338-5 ####[facility] [id number] [address] [place] OF [facility] Creatinine + eGFR Pnl SerPlB ldon 11-23-2024 Creatinine and Glomerular filtration rate.predicted panel (S/P/Bld) 128 mL/min/1.73m??? Normal >=60 [facility] Comment on above: Order Comment: Speci men Type: BLOOD SPECIMENOrdering Facility: [facility] Address: [address] [place] [address] Result Comment: Imelda mated Glomerular Filtration Rate [...] actual GFR. Performed By: #### 1 988-5, 3094-0, 99230-0, 72433-0 ####[facility] LABIA [id number] [place] [id number] [facility] Creatinine and Glomerular fi ltration rate.predicted panel (S/P/Bld)on 11-23-2024 Creatinine [Mass/Vol] 0.50 mg/dL Low 0.58-0.96 [facility] Comment on above: Order Comment: Speci men Type: BLOOD SPECIMENOrdering Facility: [facility] Address: [address] [place] [address] Performed By: #### 1 988-5, 3094-0, 75263-9, 23122-3 ####[facility] LABCLIA [id number] [place] [id number] [place] ESR Westergren method (Bld) [Velocity]on 11-23-2024 ESR (Bld) [Velocity] 29 mm/h High 0-20 [facility] Comment on above: Order Comment: Speci men Type: BLOOD SPECIMENOrdering Facility: [facility] Address: [address] [place] [address] Performed By: #### 5 7021-8, 4537-7 ####[facility] LABIA [id number] [place] [address] [place] Hepatic function 2000 panelo n 11-23-2024 Albumin [Mass/Vol] 3.9 g/dL Normal 3.9-4.9 [facility] Comment on above: Order Comment: Speci men Type: BLOOD SPECIMENOrdering Facility: [facility] Address: [address] [place] [address] Performed By: #### 1 988-5, 3094-0, 90830-8, 58685-5 ####[facility] LABCLIA [id number] [place] [address] [place] ALP [Catalytic activity/Vol] 74 U/L Normal 34-123 [facility] Comment on above: Order Comment: Speci men Type: BLOOD SPECIMENOrdering Facility: [facility] Address: [address] [place] [address] Performed By: #### 1 988-5, 3094-0, 63844-6, 23270-0 ####[facility] LABCLIA [id number] [place] [id number] [place] ALT [Catalytic activity/Vol] 23 U/L Normal 7-38 [facility] Comment on above: Order Comment: Speci men Type: BLOOD SPECIMENOrdering Facility: [facility] Address: [address] [place] [address] Performed By: #### 1 988-5, 3094-0, 93162-7, 16625-7 ####[facility] LABCLIA [id number] [address] [address] [place] AST [Catalytic activity/Vol] 25 U/L Normal 13-35 [facility] Comment on above: Order Comment: Speci men Type: BLOOD SPECIMENOrdering Facility: [facility] Address: [address] [place] [address] Performed By: #### 1 988-5, 3094-0, 22604-0, 06261-9 ####[facility] LABCLIA [id number] [place] [id number] [place] Bilirubin [Mass/Vol] 0.2 mg/dL Normal 0.2-1.3 [facility] Comment on above: Order Comment: Speci men Type: BLOOD SPECIMENOrdering Facility: [facility] Address: [address] [place] [address] Performed By: #### 1 988-5, 3094-0, 37073-7, 37451-3 ####[facility] LABCLIA [id number] [address] [address] [place] Bilirubin.conjugated [Mass/Vol] mg/dL Normal <0.3 [facility] Comment on above: Order Comment: Speci men Type: BLOOD SPECIMENOrdering Facility: [facility] Address: [address] [place] [address] Performed By: #### 1 988-5, 3094-0, 19470-2, 95694-9 ####[facility] LABCLIA [id number] [address] [address] [place] Protein [Mass/Vol] 7.2 g/dL Normal 6.3-8.0 [facility] Comment on above: Order Comment: Speci men Type: BLOOD SPECIMENOrdering Facility: [facility] Address: [address] [place] [address] Performed By: #### 1 988-5, 3094-0, 00639-2, 95120-4 ####[facility] LABCLIA [id number] [place] [address] [place] Heteroph Ab Ser Ql LAon 11-13 Heterophile Ab LA Ql (S) Negative Normal Negative [facility] Comment on above: Order Comment: Speci men Type: BLOOD SPECIMENOrdering Facility: [facility] Address: [address] [place] [address] Result Comment: Infe ctious Mononucleosis rapid test [...] is required. Performed By: #### 5 213-4 ####[facility] LABCLIA [id number] [place] [address] [place] CNOVon 11-22-2024 CNOV Normal [facility] STREP A MOLECULAR (POC)on Procedural Control Valid [facility] Strep A (POCT) Negative Negative [facility] CNOVon 11-19-2024 CNOV Normal [facility] STREP A MOLECULAR (POC)on Procedural Control Valid [facility] Strep A (POCT) Negative Negative [facility] 12 Lead EKGon 11-09-2024 12 Lead EKG [facility] Cardiovascular Services [address] [place] [address] 12 Lead EKG 11/09/24 0238 MR#: [id number] Acct: [id number] Name: LILIAM THOMPSON Rep #: [id number] : 1990 34 From: Oziel Nash MD [...] Sinus bradycardia Otherwise normal ECG Confirmed by JOVITA PEÑA, OZIEL ([id number]), editorial writer BLAKE MEJÍA ([id number]) on 11/09/2024 8:26:25 AM Referred By: MEGAN Confirmed By: OZIEL NASH MD 11/09/24825 Date Oziel Nash MD CC: Dr. Faustina Carcamo MD; Dr. Lisandro Rachel DO Signed Normal [facility] Basic Metabolic Profile (BMP )on 11-09-2024 BUN/CRE 8.6 RATIO Low 10-20 [facility] Comment on above: Performed By: #### L 500.2500, L100.0100, L501.4021 ####[facility] [address] [place], [address] Calcium [Mass/Vol] 9.5 mg/dL Normal 7.6-11.0 [facility] Comment on above: Performed By: #### L 500.2500, L100.0100, L501.4021 ####[facility] [address] [place], [address] Chloride [Moles/Vol] 107 mmol/L Normal 98-108 [facility] Comment on above: Performed By: #### L 500.2500, L100.0100, L501.4021 ####[facility] [address] [place], [address] CO2 [Moles/Vol] 16.3 mmol/L Low 21.0-32.0 [facility] Comment on above: Performed By: #### L 500.2500, L100.0100, L501.4021 ####[facility] [address] [place], [address] Creatinine [Mass/Vol] 0.63 mg/dL Low 0.70-1.[address] [facility] Comment on above: Performed By: #### L 500.2500, L100.0100, L501.4021 ####[facility] [address] [place], [address] ECRCL 156.44 ml/min Normal 50-250 [facility] Comment on above: Performed By: #### L 500.2500, L100.0100, L501.4021 ####[facility] [address] [place], [address] GAP 18 High 5-15 [facility] Comment on above: Performed By: #### L 500.2500, L100.0100, L501.4021 ####[facility] [address] [place], [address] GFR/1.73 sq M.predicted among non-blacks MDRD (S/P/Bld) [Vol rate/Area] 121 mL/min/{1.73_m2} Normal >60 [facility] Comment on above: Result Comment: mL/m in/1.73m2 CKD-EPI Creatinine Equation (2020) Performed By: #### L 500.2500, L100.0100, L501.4021 ####[facility] [address] [place], [address] Glucose [Mass/Vol] 115 mg/dL High 70-99 [facility] Comment on above: Performed By: #### L 500.2500, L100.0100, L501.4021 ####[facility] [address] [place], [address] Potassium [Moles/Vol] 4.0 mmol/L Normal 3.3-5.[address] [facility] Comment on above: Performed By: #### L 500.2500, L100.0100, L501.4021 ####[facility] [address] [place], [address] Sodium [Moles/Vol] 141 mmol/L Normal 133-145 [facility] Comment on above: Performed By: #### L 500.2500, L100.0100, L501.4021 ####[facility] [address] [place], [address] Urea nitrogen [Mass/Vol] 5 mg/dL Normal 4-19 [facility] Comment on above: Performed By: #### L 500.2500, L100.0100, L501.4021 ####[facility] [address] [place], [address] CBC W/Diff, Automatedon 10-14 Absolute Lymph 3.71 X10 3/uL Normal 0.83-4.51 [facility] Comment on above: Performed By: #### L 500.2500, L100.0100, L501.4021 ####[facility] [address] [place], [address] Absolute Neut 3.1 X10 3/uL Normal 2.0-7.7 [facility] Comment on above: Performed By: #### L 500.2500, L100.0100, L501.4021 ####[facility] [address] [place], [address] Basophils/100 WBC (Bld) 0.6 % Normal 0-1 [facility] Comment on above: Performed By: #### L 500.2500, L100.0100, L501.4021 ####[facility] [address], [address] Eosinophils/100 WBC (Bld) 2.2 % Normal 0-5 [facility] Comment on above: Performed By: #### L 500.2500, L100.0100, L501.4021 ####[facility] [address] [place], [address] Erythrocyte distribution width (RBC) [Ratio] 12.1 % Normal 11.6-14.6 [facility] Comment on above: Performed By: #### L 500.2500, L100.0100, L501.4021 ####[facility] [address] [place], [address] Hematocrit (Bld) [Volume fraction] 38.4 % Normal 37-47 [facility] Comment on above: Performed By: #### L 500.2500, L100.0100, L501.4021 ####[facility] [address] [place], [address] Hemoglobin (Bld) [Mass/Vol] 13.3 g/dL Normal 12.0-15.0 [facility] Comment on above: Performed By: #### L 500.2500, L100.0100, L501.4021 ####[facility] [address] [place], [address] IG% 0.100 Normal 0.0-0.9 [facility] Comment on above: Result Comment: IG% - Immature Granulocytes (promyelocytes, myelocytes and metamyelocytes) > 1% indicates that a LEFT SHIFT is Present. Performed By: #### L 500.2500, L100.0100, L501.4021 ####[facility] [address] [place], [address] Lymphocytes/100 WBC (Bld) 48.0 % High 19-41 [facility] Comment on above: Performed By: #### L 500.2500, L100.0100, L501.4021 ####[facility] [address] [place], [address] MCH (RBC) [Entitic mass] 30.6 pg Normal 27.0-32.0 [facility] Comment on above: Performed By: #### L 500.2500, L100.0100, L501.4021 ####[facility] [address] [place], [address] MCHC (RBC) [Mass/Vol] 34.6 g/dL Normal 32-[address] [facility] Comment on above: Performed By: #### L 500.2500, L100.0100, L501.4021 ####[facility] [address] [place], [address] MCV (RBC) [Entitic vol] 88.5 fL Normal 81-99 [facility] Comment on above: Performed By: #### L 500.2500, L100.0100, L501.4021 ####[facility] [address] [place], [address] Monocytes/100 WBC (Bld) 8.7 % Normal 0-10 [facility] Comment on above: Performed By: #### L 500.2500, L100.0100, L501.4021 ####[facility] [address] [place], [address] Neutrophils/100 WBC (Bld) 40.4 % Low 47-70 [facility] Comment on above: Performed By: #### L 500.2500, L100.0100, L501.4021 ####[facility] [address] [place], [address] Nucleated RBC (Bld) [#/Vol] 0 10*3/uL Normal 0-5 [facility] Comment on above: Performed By: #### L 500.2500, L100.0100, L501.4021 ####[facility] [address] [place], [address] Platelet mean volume (Bld) [Entitic vol] 9.5 fL Normal 6.2-12.0 [facility] Comment on above: Performed By: #### L 500.2500, L100.0100, L501.4021 ####[facility] [address] [place], [address] Platelets (Bld) [#/Vol] 443 10*3/uL Normal 150-450 [facility] Comment on above: Performed By: #### L 500.2500, L100.0100, L501.4021 ####[facility] [address] [place], [address] RBC (Bld) [#/Vol] 4.34 10*6/uL Normal 4.2-5.4 [facility] Comment on above: Performed By: #### L 500.2500, L100.0100, L501.4021 ####[facility] [address] [place], [address] RDW SD 38.7 fl Normal 35.1-43.9 [facility] Comment on above: Performed By: #### L 500.2500, L100.0100, L501.4021 ####[facility] [address] [place], [address] WBC (Bld) [#/Vol] 7.7 10*3/uL Normal 4.4-11.0 [facility] Comment on above: Performed By: #### L 500.2500, L100.0100, L501.4021 ####[facility] [address] [place], [address] Chest PA and Lateralon 11-09 Chest PA and Lateral [facility] Imaging Services [address] [place] [address] Chest PA and Lateral MR#: [id number] Acct: [id number] Name: LILIAM THOMPSON Rep #: [id number] : 1990 F 34 From: Guillaume Parker MD PCP: Dr. Faustina Carcamo MD Status: [facility] ER Study: Chest PA and Lateral Date of Exam: 11/09/24 Exam# [id number] Ordering Dr: Lisandro Rachel DO PROCEDURE: CHEST [...] No evidence of acute disease. Reading Location: [facility] CC: Dr. Faustina Carcamo MD; Dr. Lisandro Rachel DO Auto Fleet Manager: Signed Normal [facility] Emergency Department Summary on 11-09-2024 Emergency Department Summary [facility] Medical Records Department [address] [place] [address] Emergency Department Summary 11/09/24 MR#: [id number] Acct: [id number] Name: LILIAM THOMPSON Rep #: [id number] : 1990 34 From: Lisandro Rachel DO PCP: Dr. Faustina Carcamo MD Status:[facility] ER Location: ED HPI History [...] travel denies any history of blood clots. [facility] Medical History Morbid (severe) obesity due to [...] PO TID PRN 03/02/19 Un known History Anxiety/Restlessness/S leep medroxyprogesterone 150 mg/mL 150 mg IM .[id number] 03/02/19 Unkno wn History intramuscular syringe meloxicam [...] following commands knew that she was at [facility] years 2024 Skin: Warm, dry, intact no [...] Pattern Blo (more content not included)... Normal [facility] L499.0042on 11-09-2024 Trop T High Sen < 6 Normal <=14 [facility] Comment on above: Performed By: #### L 499.0042 ####[facility] [address] [place], [address] L499.0043on 11-09-2024 Trop T High Sen Normal <=14 [facility] Comment on above: Result Comment: Canc elled via OM: Order cancelled - Patient discharged Performed By: #### L 499.0043 ####[facility] [address] [place], [address] L501.4021on 11-09-2024 Trop T High Sen < 6 Normal <=14 [facility] Comment on above: Performed By: #### L 500.2500, L100.0100, L501.4021 ####[facility] [address] [place], [address] M100.678on 11-09-2024 M100.678 Pending SARS-CoV-2 (COVID 19) Negative INFLUENZA A Negative INFLUENZA B Negative RSV PCR Negative Normal [facility] Comment on above: Performed By: #### M 100.678 ####[facility] [address] [place], [address] CNOVon 10-31-2024 CNOV Normal [facility] CNPNon 10-29-2024 CNPN Normal [facility] CNOVon 10-24-2024 CNOV Normal [facility] XR WRIST 3V PA/LAT/OBL LTon 10-24-2024 XR WRIST 3V PA/LAT/OBL LT Normal [facility] XR Wrist - left PA and Later al and Obliqueon 10-24-2024 IMPRESSION: No radiographic evidence of acute osseous injury Auto Fleet Manager: REUBEN Transcribe Date/Time: Oct 24 2024 12:04P Dictated by : JAMES THURMAN MD This examination was interpreted and the report reviewed and electronically signed by: JAMES THURMAN MD on Oct 24 2024 12:05PM [facility] DIVISION OF RADIOLOGY * * [...] Joint spaces preserved DIVISION OF RADIOLOGY Provider, [facility] Imagin [facility] - 10/24/2024 * * *Final Report* * [...] No radiographic evidence of acute osseous injury Auto Fleet Manager: [facility] Transcribe Date/Time: Oct 24 2024 12:04P Dictated by : JAMES THURMAN MD This examination was interpreted and the report reviewed and electronically signed by: JAMES THURMAN MD on Oct 24 2024 12:05PM EST [facility] Radiology Study observation (narrative) [facility] XR Wrist - left PA and Later al and ObliqueOrdered By: [facility] Provider on 10-24-2024 [facility] METHYLMALONIC ACIDon 025 Methylmalonate [Moles/Vol] 0.31 umol/L [facility] umol/L [facility] Comment on above: This test was develo ped, and its performance characteristics determined by the [facility] Department of Pathology and Laboratory Medicine. It has not been cleared or approved by the FDA. The [facility] Department of Pathology and Laboratory Medicine is regulated under CLIA as qualified to perform high-complexity testing. This test is used for clinical purposes. It should not be regarded as investigational or for research. Methylmalonate [Moles/Vol]on 10-19-2024 Interpretation and review of laboratory results Normal [facility] 25(OH)D3 SerPl-mCncon 2024 25-hydroxyvitamin D3 [Mass/Vol] 17.0 ng/mL Low 31.0-80.0 [facility] Comment on above: Order Comment: Speci men Type: BLOOD SPECIMENOrdering Facility: [facility] Address: [address] [place] [address] Result Comment: Clas sification of 25 [place] Vitamin D status:Deficiency/Insufficiency: < or = 30 ng/ml.Sufficiency/Optimal Levels: 31-80 ng/mLToxicity: > 100 ng/mL.Test performed by chemiluminescent immunoassay. Performed By: #### 1 989-3 ####[facility] LABCLIA [id number] [place] [address] [place] CBC W Auto Differential pane l (Bld)on 10-17-2024 Basophils (Bld) [#/Vol] 0.03 10*3/uL Normal <0.11 [facility] Comment on above: Order Comment: Speci men Type: BLOOD SPECIMENOrdering Facility: [facility] Address: [address] [place] [address] Performed By: #### 5 7021-8 ####[facility] WAYNEIA [id number] [address] [place]#### 4537-7 ####[facility] LABIA [id number] [address] [place] Basophils/100 WBC (Bld) 0.6 % Normal [facility] Comment on above: Order Comment: Speci men Type: BLOOD SPECIMENOrdering Facility: [facility] Address: [address] [place] [address] Performed By: #### 5 7021-8 ####[facility] LABORATORYCLIA [id number] [place] [address] [place]#### 4537-7 ####[facility] LABIA [id number] [address] [place] Differential cell count method Nom (Bld) Auto Normal [facility] Comment on above: Order Comment: Speci men Type: BLOOD SPECIMENOrdering Facility: [facility] Address: [address] [place] [address] Performed By: #### 5 7021-8 ####[facility] LABORATORYIA [id number] [address] [place]#### 4537-7 ####[facility] LABCLIA [id number] [place] [address] [place] Eosinophils (Bld) [#/Vol] 0.13 10*3/uL Normal <0.46 [facility] Comment on above: Order Comment: Speci men Type: BLOOD SPECIMENOrdering Facility: [facility] Address: [address] [place] [address] Performed By: #### 5 7021-8 ####[facility] LABORATORYCLIA [id number] [address] [place]#### 4537-7 ####[facility] LABCLIA [id number] [place] [address] [place] Eosinophils/100 WBC (Bld) 2.4 % Normal [facility] Comment on above: Order Comment: Speci men Type: BLOOD SPECIMENOrdering Facility: [facility] Address: [address] [place] [address] Performed By: #### 5 7021-8 ####[facility] LABORATORYCLIA [id number] [address] [place]#### 4537-7 ####[facility] LABCLIA [id number] [place] [address] [place] Erythrocyte distribution width (RBC) [Ratio] 12.2 % Normal 11.5-15.0 [facility] Comment on above: Order Comment: Speci men Type: BLOOD SPECIMENOrdering Facility: [facility] Address: [address] [place] [address] Performed By: #### 5 7021-8 ####[facility]ORATORYCLIA [id number] [place] [address] [place]#### 4537-7 ####[facility] LABCLIA [id number] [place] [address] [place] Hematocrit (Bld) [Volume fraction] 43.2 % Normal 36.0-46.0 [facility] Comment on above: Order Comment: Speci men Type: BLOOD SPECIMENOrdering Facility: [facility] Address: [address] [place] [address] Performed By: #### 5 7021-8 ####[facility] LABORATORYCLIA [id number] [place] [address] [place]#### 4537-7 ####[facility] LABCLIA [id number] [place] [address] [place] Hemoglobin (Bld) [Mass/Vol] 14.3 g/dL Normal 11.5-15.5 [facility] Comment on above: Order Comment: Speci men Type: BLOOD SPECIMENOrdering Facility: [facility] Address: [address] [place] [address] Performed By: #### 5 7021-8 ####[facility] LABORATORYCLIA [id number] [place] [address] [place]#### 4537-7 ####[facility] LABCLIA [id number] [place] [address] [place] Immature granulocytes (Bld) [#/Vol] 10*3/uL Normal <0.10 [facility] Comment on above: Order Comment: Speci men Type: BLOOD SPECIMENOrdering Facility: [facility] Address: [address] [place] [address] Performed By: #### 5 7021-8 ####[facility] LABORATORYCLIA [id number] [place] [address] [place]#### 4537-7 ####[facility] LABCLIA [id number] [place] [address] [place] Immature granulocytes/100 WBC (Bld) 0.2 % Normal [facility] Comment on above: Order Comment: Speci men Type: BLOOD SPECIMENOrdering Facility: [facility] Address: [address] [place] [address] Performed By: #### 5 7021-8 ####[facility] LABORATORYCLIA [id number] [place] [address] [place]#### 4537-7 ####[facility] LABCLIA [id number] [place] [address] [place] Lymphocytes (Bld) [#/Vol] 2.43 10*3/uL Normal 1.00-4.00 [facility] Comment on above: Order Comment: Speci men Type: BLOOD SPECIMENOrdering Facility: [facility] Address: [address] [place] [address] Performed By: #### 5 7021-8 ####[facility] LABORATORYCLIA [id number] [address] [place]#### 4537-7 ####[facility] LABCLIA [id number] [address] [place] Lymphocytes/100 WBC (Bld) 44.8 % Normal [facility] Comment on above: Order Comment: Speci men Type: BLOOD SPECIMENOrdering Facility: [facility] Address: [address] [place] [address] Performed By: #### 5 7021-8 ####[facility] LABORATORYCLIA [id number] [address] OF [place]#### 4537-7 ####[facility] LABCLIA [id number] [place] [address] [place] MCH (RBC) [Entitic mass] 30.7 pg Normal 26.0-34.0 [facility] Comment on above: Order Comment: Speci men Type: BLOOD SPECIMENOrdering Facility: [facility] Address: [address] [place] [address] Performed By: #### 5 7021-8 ####[facility] LABORATORYCLIA [id number] [address] [place]#### 4537-7 ####[facility] LABCLIA [id number] [place] [address] [place] MCHC (RBC) [Mass/Vol] 33.1 g/dL Normal 30.5-36.0 [facility] Comment on above: Order Comment: Speci men Type: BLOOD SPECIMENOrdering Facility: [facility] Address: [address] [place] [address] Performed By: #### 5 7021-8 ####[facility] LABORATORYCLIA [id number] [address] [place]#### 4537-7 ####[facility] LABCLIA [id number] [place] [address] [place] MCV (RBC) [Entitic vol] 92.7 fL Normal 80.0-100.0 [facility] Comment on above: Order Comment: Speci men Type: BLOOD SPECIMENOrdering Facility: [facility] Address: [address] [place] [address] Performed By: #### 5 7021-8 ####[facility] LABORATORYCLIA [id number] [address] OF [place]#### 4537-7 ####[facility] LABCLIA [id number] [place] [address] [place] Monocytes (Bld) [#/Vol] 0.52 10*3/uL Normal <0.87 [facility] Comment on above: Order Comment: Speci men Type: BLOOD SPECIMENOrdering Facility: [facility] Address: [address] [place] [address] Performed By: #### 5 7021-8 ####[facility] LABORATORYCLIA [id number] [address] [place]#### 4537-7 ####[facility] LABCLIA [id number] [place] [address] [place] Monocytes/100 WBC (Bld) 9.6 % Normal [facility] Comment on above: Order Comment: Speci men Type: BLOOD SPECIMENOrdering Facility: [facility] Address: [address] [place] [address] Performed By: #### 5 7021-8 ####[facility] LABORATORYCLIA [id number] [place] [address] [place]#### 4537-7 ####[facility] LABCLIA [id number] [place] [address] [place] Neutrophils (Bld) [#/Vol] 2.31 10*3/uL Normal 1.45-7.50 [facility] Comment on above: Order Comment: Speci men Type: BLOOD SPECIMENOrdering Facility: [facility] Address: [address] [place] [address] Performed By: #### 5 7021-8 ####[facility] LABORATORYCLIA [id number] [place] [address] [place]#### 4537-7 ####[facility] LABCLIA [id number] [place] [address] [place] Neutrophils/100 WBC (Bld) 42.4 % Normal [facility] Comment on above: Order Comment: Speci men Type: BLOOD SPECIMENOrdering Facility: [facility] Address: [address] [place] [address] Performed By: #### 5 7021-8 ####[facility] LABORATORYCLIA [id number] [place] [address] [place]#### 4537-7 ####[facility] LABCLIA [id number] [place] [address] [place] Nucleated RBC (Bld) [#/Vol] 10*3/uL Normal <0.01 [facility] Comment on above: Order Comment: Speci men Type: BLOOD SPECIMENOrdering Facility: [facility] Address: [address] [place] [address] Performed By: #### 5 7021-8 ####[facility] LABORATORYCLIA [id number] [place] [address] [place]#### 4537-7 ####[facility] LABCLIA [id number] [place] [address] [place] Nucleated RBC/100 WBC (Bld) [Ratio] 0.0 /100 WBC Normal [facility] Comment on above: Order Comment: Speci men Type: BLOOD SPECIMENOrdering Facility: [facility] Address: [address] [place] [address] Performed By: #### 5 7021-8 ####[facility] LABORATORYCLIA [id number] [place] [address] [place]#### 4537-7 ####[facility] LABCLIA [id number] [place] [address] [place] Platelet mean volume (Bld) [Entitic vol] 10.0 fL Normal 9.0-12.7 [facility] Comment on above: Order Comment: Speci men Type: BLOOD SPECIMENOrdering Facility: [facility] Address: [address] [place] [address] Performed By: #### 5 7021-8 ####[facility] LABORATORYCLIA [id number] [address] [place]#### 4537-7 ####[facility] LABCLIA [id number] [place] [address] [place] Platelets (Bld) [#/Vol] 423 10*3/uL High 150-400 [facility] Comment on above: Order Comment: Speci men Type: BLOOD SPECIMENOrdering Facility: [facility] Address: [address] [place] [address] Performed By: #### 5 7021-8 ####[facility] LABORATORYCLIA [id number] [address] [place]#### 4537-7 ####[facility] LABCLIA [id number] [address] [address] [place] RBC (Bld) [#/Vol] 4.66 10*6/uL Normal 3.90-5.20 [facility] Comment on above: Order Comment: Speci men Type: BLOOD SPECIMENOrdering Facility: [facility] Address: [address] [place] [address] Performed By: #### 5 7021-8 ####[facility] LABORATORYCLIA [id number] [place] [address] [place]#### 4537-7 ####[facility] LABCLIA [id number] [place] [address] [place] WBC (Bld) [#/Vol] 5.43 10*3/uL Normal 3.70-11.00 [facility] Comment on above: Order Comment: Speci men Type: BLOOD SPECIMENOrdering Facility: [facility] Address: [address] [place] [address] Performed By: #### 5 7021-8 ####[facility] LABORATORYCLIA [id number] [place] [address] [place]#### 4537-7 ####[facility] LABCLIA [id number] [place] [address] [place] CRP SerPl-mCncon 10-17-2024 CRP [Mass/Vol] mg/L Normal <0.9 [facility] Comment on above: Order Comment: Speci men Type: BLOOD SPECIMENOrdering Facility: [facility] Address: [address] [place] [address] Performed By: #### 1 988-5, 2132-9 ####[facility] LABORATORYCLIA [id number] [place] [address] [place] Cobalamin (Vitamin B12) [Mas s/Vol]on 10-17-2024 Interpretation and review of laboratory results Normal [facility] Comprehensive metabolic 2000 panelon 10-17-2024 Albumin [Mass/Vol] 4.2 g/dL 3.9 - 4.9 g/dL Cl [facility] ALP [Catalytic activity/Vol] 73 U/L 34 - 123 U/L [facility] ALT With P-5'-P [Catalytic activity/Vol] 32 U/L 7 - 38 U/L [facility] Anion gap [Moles/Vol] 15 mmol/L 8 - 15 mmol/L [facility] AST With P-5'-P [Catalytic activity/Vol] 32 U/L 13 - 35 U/L [facility] Bilirubin [Mass/Vol] 0.3 mg/dL 0.2 - 1.3 mg/dL [facility] Calcium [Mass/Vol] 9.1 mg/dL 8.5 - 10. 2 mg/dL [facility] Chloride [Moles/Vol] 108 mmol/L High 98 - 107 mmol/L [facility] CO2 [Moles/Vol] 21 mmol/L Low 22 - 30 mmol/L [facility] Creatinine [Mass/Vol] 0.58 mg/dL 0.58 - 0.96 mg/dL [facility] GFR/1.73 sq M.predicted among non-blacks MDRD (S/P/Bld) [Vol rate/Area] 123 mL/min/{1.73_m2} - PINF [facility] Comment on above: Estimated Glomerular Filtration Rate [...] 107 mg/dL High 74 - 99 mg/dL [facility] Comment on above: The [place] Diabete s Association (ADA) provides guidance for [...] Standards of Medical Care in Diabetes 2016, [place] Diabetes Association. Diabetes Care. 2016.39(Suppl 1). Interpretation and review of laboratory results Abnormal [facility] Potassium [Moles/Vol] 4.4 mmol/L 3.7 - 5.1 mmol/L [facility] Protein [Mass/Vol] 6.9 g/dL 6.3 - 8.0 g/dL [facility] Sodium [Moles/Vol] 144 mmol/L 136 - 144 mmol/L [facility] Urea nitrogen [Mass/Vol] 7 mg/dL 7 - 21 mg/dL [facility] Albumin [Mass/Vol] 4.2 g/dL Normal 3.9-4.9 [facility] Comment on above: Order Comment: Krystyna armstrong Type: BLOOD SPECIMENOrdering Facility: [facility] Address: [address] [place] [address] Performed By: #### 3 051-0, 35170-0, 3023-7, 6-3 ####[facility] WAYNEIA [id number] [place] [address] [place] ALP [Catalytic activity/Vol] 73 U/L Normal 34-123 [facility] Comment on above: Order Comment: Krystyna armstrong Type: BLOOD SPECIMENOrdering Facility: [facility] Address: [address] [place] [address] Performed By: #### 3 051-0, 37274-6, 3023-7, 6-3 ####[facility] LABORATORYCLIA [id number] [place] [address] [place] ALT With P-5'-P [Catalytic activity/Vol] 32 U/L Normal 7-38 [facility] Comment on above: Order Comment: Krystyna armstrong Type: BLOOD SPECIMENOrdering Facility: [facility] Address: [address] [place] [address] Performed By: #### 3 051-0, 99601-5, 3023-7, 6-3 ####[facility] LABORATORYCLIA [id number] [place] [address] [place] Anion gap [Moles/Vol] 15 mmol/L Normal 8-15 [facility] Comment on above: Order Comment: Speci men Type: BLOOD SPECIMENOrdering Facility: [facility] Address: [address] [place] [address] Performed By: #### 3 051-0, 18683-7, 3023-7, 6-3 ####[facility] LABORATORYCLIA [id number] [place] [address] [place] AST With P-5'-P [Catalytic activity/Vol] 32 U/L Normal 13-35 [facility] Comment on above: Order Comment: Speci men Type: BLOOD SPECIMENOrdering Facility: [facility] Address: [address] [place] [address] Performed By: #### 3 051-0, 39724-9, 7, 6-3 ####[facility] LABORATORYCLIA [id number] [place] [address] [place] Bilirubin [Mass/Vol] 0.3 mg/dL Normal 0.2-1.3 [facility] Comment on above: Order Comment: Speci men Type: BLOOD SPECIMENOrdering Facility: [facility] Address: [address] [place] [address] Performed By: #### 3 051-0, 52411-8, 3023-7, 3015-3 ####[facility] LABORATORYCLIA [id number] [place] [address] [place] Calcium [Mass/Vol] 9.1 mg/dL Normal 8.5-10.2 [facility] Comment on above: Order Comment: Speci men Type: BLOOD SPECIMENOrdering Facility: [facility] Address: [address] [place] [address] Performed By: #### 3 051-0, 79545-5, 3023-7, 6-3 ####[facility] LABORATORYCLIA [id number] [place], [place] [address] [place] [address] [place] Chloride [Moles/Vol] 108 mmol/L High 98-107 [facility] Comment on above: Order Comment: Speci men Type: BLOOD SPECIMENOrdering Facility: [facility] Address: [address] [place] [address] Performed By: #### 3 051-0, 29050-2, 3024-7, 3016-3 ####[facility] [id number] [address] STATES OF [facility] CO2 [Moles/Vol] 21 mmol/L Low 22-30 [facility] Comment on above: Order Comment: Speci men Type: BLOOD SPECIMENOrdering Facility: [facility] Address: [address] [place] [address] Performed By: #### 3 051-0, 63211-6, 3024-7, 3016-3 ####[facility] WAYNE[facility] [id number] [address] STATES OF [facility] Creatinine [Mass/Vol] 0.58 mg/dL Normal 0.58-0.96 [facility] Comment on above: Order Comment: Speci men Type: BLOOD SPECIMENOrdering Facility: [facility] Address: [address] [place] [address] Performed By: #### 3 051-0, 78971-0, 3024-7, 3016-3 ####[facility] LABORATORYIA [id number] [address] Creatinine and Glomerular filtration rate.predicted panel (S/P/Bld) 123 mL/min/1.73m??? Normal >=60 [facility] Comment on above: Order Comment: Speci men Type: BLOOD SPECIMENOrdering Facility: [facility] Address: [address] [place] [address] Result Comment: Imelda mated Glomerular Filtration Rate [...] actual GFR. Performed By: #### 3 051-0, 55359-4, 7, 3 ####[facility] LABORATORYCLIA [id number] [place] [address] [place] Glucose [Mass/Vol] 107 mg/dL High 74-99 [facility] Comment on above: Order Comment: Krystyna armstrong Type: BLOOD SPECIMENOrdering Facility: [facility] Address: [address] [place] [address] Result Comment: The [place] Diabetes Association (ADA) provides guidance for cutoff [...] Standards of Medical Care in Diabetes 2016, [place] Diabetes Association. Diabetes Care. 2016.39(Suppl 1). Performed By: #### 3 051-0, 14509-3, 7, 3 ####[facility] LABORATORYCLIA [id number] [place] [address] [place] Potassium [Moles/Vol] 4.4 mmol/L Normal 3.7-5.1 [facility] Comment on above: Order Comment: Krystyna armstrong Type: BLOOD SPECIMENOrdering Facility: [facility] Address: [address] [place] [address] Performed By: #### 3 051-0, 24238-7, 7, 3 ####[facility] LABORATORYCLIA [id number] [place] [address] [place] Protein [Mass/Vol] 6.9 g/dL Normal 6.3-8.0 [facility] Comment on above: Order Comment: Speci men Type: BLOOD SPECIMENOrdering Facility: [facility] Address: [address] [place] [address] Performed By: #### 3 051-0, 83880-6, 3024-7, 6-3 ####[facility] LABORATORYCLIA [id number] [place] [address] [place] Sodium [Moles/Vol] 144 mmol/L Normal 136-144 [facility] Comment on above: Order Comment: Speci men Type: BLOOD SPECIMENOrdering Facility: [facility] Address: [address] [place] [address] Performed By: #### 3 051-0, 48244-8, 7, 3 ####[facility] LABORATORYCLIA [id number] [place] [address] [place] [facility] Urea nitrogen [Mass/Vol] 7 mg/dL Normal 7-21 [facility] Comment on above: Order Comment: Speci men Type: BLOOD SPECIMENOrdering Facility: [facility] Address: [address] [place] [address] Performed By: #### 3 051-0, 32699-6, 7, 3 ####[facility] LABORATORYCLIA [id number] [place] [address] [place] ESR Westergren method (Bld) [Velocity]on 10-17-2024 ESR (Bld) [Velocity] 5 mm/h Normal 0-20 [facility] Comment on above: Order Comment: Speci men Type: BLOOD SPECIMENOrdering Facility: [facility] Address: [address] [place] [address] Performed By: #### 5 7021-8 ####[facility] LABORATORYCLIA [id number] [place] [address] [place]#### 4537-7 ####[facility] LABCLIA [id number] [facility] [id number] [place] [address] [place] Free T3 [Mass/Vol]on 025 Interpretation and review of laboratory results Normal [facility] Methylmalonate SerPl-sCncon 10-17-2024 Methylmalonate [Moles/Vol] 0.31 umol/L Normal <=0.40 [facility] Comment on above: Order Comment: Krystyna armstrong Type: BLOOD SPECIMENOrdering Facility: [facility] Address: [address] [place] [address] Result Comment: This test was developed, and its performance characteristics determined by the [facility] Department of Pathology and Laboratory Medicine. It has not been cleared or approved by the FDA. The [facility] Department of Pathology and Laboratory Medicine is regulated under CLIA as qualified to perform high-complexity testing. This test is used for clinical purposes. It should not be regarded as investigational or for research. Performed By: #### 1 3964-2 ####[facility] LABCLIA [id number] [place] [address] [place] No Panel Informationon 10-17 Interpretation and review of laboratory results Normal [facility] T3, FREEon 10-17-2024 Free T3 [Mass/Vol] 3.7 pg/mL 2.3 - 4.1 pg/mL [facility] T3Free SerPl-mCncon 10-18-19 25 Free T3 [Mass/Vol] 3.7 pg/mL Normal 2.3-4.1 [facility] Comment on above: Order Comment: Krystyna armstrong Type: BLOOD SPECIMENOrdering Facility: [facility] Address: [address] [place] [address] Performed By: #### 3 051-0, 11403-3, 3024-7, 3016-3 ####[facility] LABORATORYCLIA [id number] [place] [address] [place] T4 FREE/FREE THYROXINEon Free T4 [Mass/Vol] 1.2 ng/dL 0.9 - 1.7 ng/dL [facility] T4 Free SerPl-mCncon 025 Free T4 [Mass/Vol] 1.2 ng/dL Normal 0.9-1.7 [facility] Comment on above: Order Comment: Specclaire armstrong Type: BLOOD SPECIMENOrdering Facility: [facility] Address: [address] [place] [address] [place] [address] Performed By: #### 3 051-0, 87707-2, 3024-7, 3016-3 ####[facility] LABORATORYCLIA [id number] [place] [address] [place] [facility] THYROID STIMULATING HORMONEo n 10-17-2024 TSH Qn 2.71 m[IU]/L [facility] Comment on above: If the patient is [...] Perez et al. 2017 Guidelines of the [place] Thyroid Association for the Diagnosis and Management of Thyroid Disease during and the . Thyroid, 2017:27:3:315-389. TSH SerPl-aCncon 10-17-2024 TSH Qn 2.710 m[IU]/L Normal 0.270-4.200 [facility] Comment on above: Order Comment: Krystyna armstrong Type: BLOOD SPECIMENOrdering Facility: [facility] Address: [facility] [place] [address] Result Comment: If t he patient is , TSH reference range varies by gestational period:First Trimester (weeks 9-12): 0.180-2.990 mIU/LSecond Trimester: 0.110-3.980 mIU/LThird Trimester: 0.480-4.710 mIU/LDkedar Cheng et al. A Practical Approach for the Verifications and Determination of Site- and Trimester-Specific Reference Intervals for Thyroid Function tests in . Thyroid, 2019:29:3:412-420. Rickey Perez et al. 2017 Guidelines of the [place] Thyroid Association for the Diagnosis and Management of Thyroid Disease during and the . Thyroid, 2017:27:3:315-389. Performed By: #### 3 051-0, 15241-6, 3024-7, 3016-3 ####[facility] LABORATORYCLIA [id number] [place] [id number] [place] [facility] VITAMIN B12on 10-17-2024 Cobalamin (Vitamin B12) [Mass/Vol] 271 pg/mL 232 - 1245 pg/mL [facility] Vit B12 SerPl-mCncon 025 Cobalamin (Vitamin B12) [Mass/Vol] 271 pg/mL Normal 232-1245 [facility] Comment on above: Order Comment: Speci men Type: BLOOD SPECIMENOrdering Facility: [facility] Address: [address] [place], [place] [address] [address] Performed By: #### 1 988-5, 2132-9 ####[facility] LABORATORYCLIA [id number] [place] [id number] [facility] CNOVon 10-16-2024 CNOV Normal [facility] CNOVon 09-25-2024 CNOV Normal [facility] XR CHEST 2V FRONTAL/LATon XR CHEST 2V FRONTAL/LAT Normal [facility] XR Chest PA and Lateralon IMPRESSION: No acute radiographic abnormality. Auto Fleet Manager: REUBEN Transcribe Date/Time: Sep 25 2024 9:31A Dictated by : JONATAN RENEE MD This examination was interpreted and the report reviewed and electronically signed by: JONATAN RENEE MD on Sep 25 2024 9:31AM [facility] DIVISION OF RADIOLOGY * * [...] DIVISION OF RADIOLOGY Provider, Chichi Oakes - 09/25/2024 * * *Final Report* [...] Unremarkable. IMPRESSION IMPRESSION: No acute radiographic abnormality. Auto Fleet Manager: [facility] Transcribe Date/Time: Sep 25 2024 9:31A Dictated by : JONATAN RENEE MD This examination was interpreted and the report reviewed and electronically signed by: JONATAN RENEE MD on Sep 25 2024 9:31AM EST [facility] Radiology Study observation (narrative) [facility] XR Chest PA and LateralOrder ed By: [facility] Provider on 09-25-2024 [facility] 09-[facility]-2024 CNPN Normal [facility] CNPNon 07-25-2024 CNPN Normal [facility] 12 Lead EKGon 07-20-2024 12 Lead EKG [facility] [address] [place] [address] 12 Lead EKG 07/20/24 1256 MR#: [id number] Acct: [id number] Name: LILIAM THOMPSON Rep #: [id number] : 1990 33 From: Selma Jackson MD [...] abnormality Abnormal ECG Confirmed by Selma Jackson ([id number]), editorial writer BLAKE MEJÍA ([id number]) on 07/23/2024 6:54:04 AM Referred By: Confirmed By: Selma Jackson 07/23/24 0654 Date Selma Jackson MD CC: Dr. Nicholas Santiago DO; Dr. Faustina Carcamo MD Signed Normal [facility] Basic Metabolic Profile (BMP )on 07-20-2024 BUN/CRE 14.3 RATIO Normal 10-20 [facility] Comment on above: Order Comment: 1Y Performed By: #### L 500.2500, L501.5425, L100.0100 ####[facility] [address] [place], [address] CA,Total 8.9 mg/dL Normal 8.5-10.1 [facility] Comment on above: Order Comment: 1Y Performed By: #### L 500.2500, L501.5425, L100.0100 ####[facility] [address] [place], [address] Chloride [Moles/Vol] 109 mmol/L High 98-107 [facility] Comment on above: Order Comment: 1Y Performed By: #### L 500.2500, L501.5425, L100.0100 ####[facility] [address] [place], [address] CO2 [Moles/Vol] 25.0 mmol/L Normal 21.0-32.0 [facility] Comment on above: Order Comment: 1Y Performed By: #### L 500.2500, L501.5425, L100.0100 ####[facility] [address] [place], [address] Creatinine [Mass/Vol] 0.63 mg/dL Normal 0.55-1.[address] [facility] Comment on above: Order Comment: 1Y Result Comment: The validity of the calculated GFR GFRAA in patients over 70 years has not been determined. Clinical correlation is essential. Performed By: #### L 500.2500, L501.5425, L100.0100 ####[facility] [address] [place], [address] ECRCL 158.53 ml/min Normal [facility] Comment on above: Order Comment: 1Y Performed By: #### L 500.2500, L501.5425, L100.0100 ####[facility] [address] [place], [address] EST GFR - AA 141 mL/min Normal >60 [facility] Comment on above: Order Comment: 1Y Result Comment: Afri can Hungarian GFR Calc Performed By: #### L 500.2500, L501.5425, L100.0100 ####[facility] [address] [place], [address] GAP 6 Normal 5-15 [facility] Comment on above: Order Comment: 1Y Performed By: #### L 500.2500, L501.5425, L100.0100 ####[facility] [address] [place], [address] GFR/1.73 sq M.predicted among non-blacks MDRD (S/P/Bld) [Vol rate/Area] 117 mL/min/{1.73_m2} Normal >60 [facility] Comment on above: Order Comment: 1Y Result Comment: Non- GFR Calc Performed By: #### L 500.2500, L501.5425, L100.0100 ####[facility] [address] [place], [address] Glucose [Mass/Vol] 116 mg/dL High 74-106 [facility] Comment on above: Order Comment: 1Y Result Comment: Fast ing Glucose result from 100 to 125 mg/dL suggests IMPAIRED HOMEOSTASIS per A.D.A. criteria. Performed By: #### L 500.2500, L501.5425, L100.0100 ####[facility] [address] [place], [address] Potassium [Moles/Vol] 4.0 mmol/L Normal 3.5-5.[address] [facility] Comment on above: Order Comment: 1Y Performed By: #### L 500.2500, L501.5425, L100.0100 ####[facility] [address] [place], [address] Sodium [Moles/Vol] 139 mmol/L Normal 136-145 [facility] Comment on above: Order Comment: 1Y Performed By: #### L 500.2500, L501.5425, L100.0100 ####[facility] [address] [place], [address] Urea nitrogen [Mass/Vol] 9 mg/dL Normal 7-18 [facility] Comment on above: Order Comment: 1Y Performed By: #### L 500.2500, L501.5425, L100.0100 ####[facility] [address] [place], [address] CBC W/Diff, Automatedon 12-0 Absolute Lymph 2.16 X10 3/uL Normal 0.83-4.51 [facility] Comment on above: Performed By: #### L 500.2500, L501.5425, L100.0100 ####[facility] [address] [place], [address] Absolute Neut 3.0 X10 3/uL Normal 2.0-7.7 [facility] Comment on above: Performed By: #### L 500.2500, L501.5425, L100.0100 ####[facility] [address] [place], [address] Basophils/100 WBC (Bld) 0.5 % Normal 0-1 [facility] Comment on above: Performed By: #### L 500.2500, L501.5425, L100.0100 ####[facility] [address] [place], [address] Eosinophils/100 WBC (Bld) 0.5 % Normal 0-5 [facility] Comment on above: Performed By: #### L 500.2500, L501.5425, L100.0100 ####[facility] [address] [place], [address] Erythrocyte distribution width (RBC) [Ratio] 12.4 % Normal 11.6-14.6 [facility] Comment on above: Performed By: #### L 500.2500, L501.5425, L100.0100 ####[facility] [address] [place], [address] Hematocrit (Bld) [Volume fraction] 39.3 % Normal 37-47 [facility] Comment on above: Performed By: #### L 500.2500, L501.5425, L100.0100 ####[facility] [address] [place], [address] Hemoglobin (Bld) [Mass/Vol] 13.1 g/dL Normal 12.0-15.0 [facility] Comment on above: Performed By: #### L 500.2500, L501.5425, L100.0100 ####[facility] [address] [place], [place], [address] IG% 0.200 Normal 0.0-0.9 [facility] Comment on above: Result Comment: IG% - Immature Granulocytes (promyelocytes, myelocytes and metamyelocytes) > 1% indicates that a LEFT SHIFT is Present. Performed By: #### L 500.2500, L501.5425, L100.0100 ####[facility] [address] [place], [address] Lymphocytes/100 WBC (Bld) 37.6 % Normal 19-41 [facility] Comment on above: Performed By: #### L 500.2500, L501.5425, L100.0100 ####[facility] [address] [place], [address] MCH (RBC) [Entitic mass] 30.8 pg Normal 27.0-32.0 [facility] Comment on above: Performed By: #### L 500.2500, L501.5425, L100.0100 ####[facility] [address] [place], [address] MCHC (RBC) [Mass/Vol] 33.3 g/dL Normal 32-[address] [facility] Comment on above: Performed By: #### L 500.2500, L501.5425, L100.0100 ####[facility] [address] [place], [address] MCV (RBC) [Entitic vol] 92.5 fL Normal 81-99 [facility] Comment on above: Performed By: #### L 500.2500, L501.5425, L100.0100 ####[facility] [address] [place], [address] Monocytes/100 WBC (Bld) 9.6 % Normal 0-10 [facility] Comment on above: Performed By: #### L 500.2500, L501.5425, L100.0100 ####[facility] [address] [place], [address] Neutrophils/100 WBC (Bld) 51.6 % Normal 47-70 [facility] Comment on above: Performed By: #### L 500.2500, L501.5425, L100.0100 ####[facility] [address] [place], [address] Nucleated RBC (Bld) [#/Vol] 0 10*3/uL Normal 0-5 [facility] Comment on above: Performed By: #### L 500.2500, L501.5425, L100.0100 ####[facility] [address], [address] Platelet mean volume (Bld) [Entitic vol] 9.0 fL Normal 6.2-12.0 [facility] Comment on above: Performed By: #### L 500.2500, L501.5425, L100.0100 ####[facility] [address] [place], [address] Platelets (Bld) [#/Vol] 411 10*3/uL Normal 150-450 [facility] Comment on above: Performed By: #### L 500.2500, L501.5425, L100.0100 ####[facility] [address] [place], [address] RBC (Bld) [#/Vol] 4.25 10*6/uL Normal 4.2-5.4 [facility] Comment on above: Performed By: #### L 500.2500, L501.5425, L100.0100 ####[facility] [address] [place], [address] RDW SD 42.0 fl Normal 35.1-43.9 [facility] Comment on above: Performed By: #### L 500.2500, L501.5425, L100.0100 ####[facility] [address] [place], [address] WBC (Bld) [#/Vol] 5.7 10*3/uL Normal 4.4-11.0 [facility] Comment on above: Performed By: #### L 500.2500, L501.5425, L100.0100 ####[facility] [address] [place], [place], [address] Chest 1 View (Portable)on Chest 1 View (Portable) [facility] Imaging Services [address] [place], [place] [address] Chest 1 View (Portable) MR#: [id number] Acct: [id number] Name: LILIAM THOMPSON Rep #: [id number] : 1990 F 33 From: Milo cortez MD PCP: Dr. Faustina Carcamo MD Status: REG ER Study: Chest 1 View (Portable) Date of Exam: 07/20/24 Exam# [id number] Ordering Dr: Nicholas Santiago DO [id number] STUDY: X-RAY CHEST REASON FOR EXAM: Female, [...] Nicholas Santiago DO; Dr. Faustina Carcamo MD Auto Fleet Manager: Signed Normal [facility] Emergency Department Summary on 07-20-2024 Emergency Department Summary [facility] Medical Records Department [address] [place] [address] Emergency Department Summary 07/20/24 MR#: [id number] Acct: [id number] Name: LILIAM THOMPSON Rep #: [id number] : 1990 33 From: Nicholas Santiago DO [...] does not smoke. No history of DVT/PE. [facility] Medical History Morbid (severe) obesity due to [...] mg PO TID PRN 03/02/19 Unknown History Anxiety/Restlessness/S leep medroxyprogesterone 150 mg/mL 150 mg IM .[id number] 03/02/19 Unknown History intramuscular syringe meloxicam 15 [...] tachycardic as (more content not included)... Normal [facility] L501.5425on 07-20-2024 TROPONIN-I HS 4 pg/mL Normal 3.0-54.0 [facility] Comment on above: Order Comment: 1Y Result Comment: Shameka chu Note: New Test Units and Gender Specific Reference Ranges. For more information see Policy Stat Procedure [place] High Sensitivity Troponin (TNIH) and attachments. Performed By: #### L 500.2500, L501.5425, L100.0100 ####[facility] [address] [place], [address] CNPNon 07-19-2024 CNPN Normal [facility] CNOVon 07-11-2024 CNOV Normal [facility] CNOVon 07-04-2024 CNOV Normal [facility] CNPNon 06-14-2024 CNPN Normal [facility] 12 Lead EKGon 06-07-2024 12 Lead EKG [facility] Cardiovascular Services [address] [place] [address] 12 Lead EKG 06/07/24 0146 MR#: [id number] Acct: [id number] Name: LILIAM THOMPSON Rep #: [id number] : 1990 33 From: Oziel Nash MD [...] T wave abnormality Abnormal ECG Confirmed by OZIEL NASH MD ([id number]), editorial writer IRENE HERRERA ([id number]) on 06/07/2024 9:28:37 AM Referred By: AR Confirmed By:OZIEL NASH MD 06/07/24927 Date Oziel Nash MD CC: Dr. Ermias Kelly MD; Dr. Faustina Carcamo MD Signed Normal [facility] Basic Metabolic Profile (BMP )on 06-07-2024 BUN/CRE 11.5 RATIO Normal 10-20 [facility] Comment on above: Order Comment: 1 Y Performed By: #### L 300.8000, L100.0100, L500.2500, L501.5425 #### [facility] [address] [place], [address] CA,Total 9.2 mg/dL Normal 8.5-10.1 [facility] Comment on above: Order Comment: 1 Y Performed By: #### L 300.8000, L100.0100, L500.2500, L501.5425 #### [facility] [address] [place], [address] Chloride [Moles/Vol] 111 mmol/L High 98-107 [facility] Comment on above: Order Comment: 1 Y Performed By: #### L 300.8000, L100.0100, L500.2500, L501.5425 #### [facility] [address] [place], [address] CO2 [Moles/Vol] 22.0 mmol/L Normal 21.0-32.0 [facility] Comment on above: Order Comment: 1 Y Performed By: #### L 300.8000, L100.0100, L500.2500, L501.5425 #### [facility] [address] [place], [address] Creatinine [Mass/Vol] 0.61 mg/dL Normal 0.55-1.[address] [facility] Comment on above: Order Comment: 1 Y Result Comment: The validity of the calculated GFR GFRAA in patients over 70 years has not been determined. Clinical correlation is essential. Performed By: #### L 300.8000, L100.0100, L500.2500, L501.5425 #### [facility] [address] [place], [address] ECRCL 163.15 ml/min Normal [facility] Comment on above: Order Comment: 1 Y Performed By: #### L 300.8000, L100.0100, L500.2500, L501.5425 #### [facility] [address] [place], [address] EST GFR - AA 147 mL/min Normal >60 [facility] Comment on above: Order Comment: 1 Y Result Comment: Afri can Hungarian GFR Calc Performed By: #### L 300.8000, L100.0100, L500.2500, L501.5425 #### [facility] [address] [place], [address] GAP 6 Normal 5-15 [facility] Comment on above: Order Comment: 1 Y Performed By: #### L 300.8000, L100.0100, L500.2500, L501.5425 #### [facility] [address] [place], [address] GFR/1.73 sq M.predicted among non-blacks MDRD (S/P/Bld) [Vol rate/Area] 122 mL/min/{1.73_m2} Normal >60 [facility] Comment on above: Order Comment: 1 Y Result Comment: Non- GFR Calc Performed By: #### L 300.8000, L100.0100, L500.2500, L501.5425 #### [facility] [address] [place], [address] Glucose [Mass/Vol] 111 mg/dL High 74-106 [facility] Comment on above: Order Comment: 1 Y Result Comment: Fast ing Glucose result from 100 to 125 mg/dL suggests IMPAIRED HOMEOSTASIS per A.D.A. criteria. Performed By: #### L 300.8000, L100.0100, L500.2500, L501.5425 #### [facility] [address] [place], [address] Potassium [Moles/Vol] 4.4 mmol/L Normal 3.5-5.[address] [facility] Comment on above: Order Comment: 1 Y Result Comment: Slig ht Hemolysis, Result may be falsely increased. Performed By: #### L 300.8000, L100.0100, L500.2500, L501.5425 #### [facility] [address] [place], [address] Sodium [Moles/Vol] 139 mmol/L Normal 136-145 [facility] Comment on above: Order Comment: 1 Y Performed By: #### L 300.8000, L100.0100, L500.2500, L501.5425 #### [facility] [address] [place], [address] Urea nitrogen [Mass/Vol] 7 mg/dL Normal 7-18 [facility] Comment on above: Order Comment: 1 Y Performed By: #### L 300.8000, L100.0100, L500.2500, L501.5425 #### [facility] [address] [place], [address] CBC W/Diff, Automatedon 10- Absolute Lymph 2.03 X10 3/uL Normal 0.83-4.51 [facility] Comment on above: Order Comment: This specimen has been REJECTED due to Laboratory criteria: Clotted. [email or web address] has been notified of need of recollection. 06/07/24209 Irene C [place] Performed By: #### L 100.0100 #### [facility] [address] [place], [address] Absolute Neut 6.3 X10 3/uL Normal 2.0-7.7 [facility] Comment on above: Order Comment: This specimen has been REJECTED due to Laboratory criteria: Clotted. [email or web address] has been notified of need of recollection. 06/07/24209 Irene C [place] Performed By: #### L 100.0100 #### [facility] [address] [place], [address] Basophils/100 WBC (Bld) 0.4 % Normal 0-1 [facility] Comment on above: Order Comment: This specimen has been REJECTED due to Laboratory criteria: Clotted. [email or web address] has been notified of need of recollection. 06/07/24209 Irene C [place] Performed By: #### L 100.0100 #### [facility] [address] [place], [address] Eosinophils/100 WBC (Bld) 0.3 % Normal 0-5 [facility] Comment on above: Order Comment: This specimen has been REJECTED due to Laboratory criteria: Clotted. [email or web address] has been notified of need of recollection. 06/07/24209 Irene C Jessy Performed By: #### L 100.0100 #### [facility] [address] [place], [address] Erythrocyte distribution width (RBC) [Ratio] 12.2 % Normal 11.6-14.6 [facility] Comment on above: Order Comment: This specimen has been REJECTED due to Laboratory criteria: Clotted. [email or web address] has been notified of need of recollection. 06/07/24209 Irene C Jessy Performed By: #### L 100.0100 #### [facility] [address] [place], [address] Hematocrit (Bld) [Volume fraction] 37.7 % Normal 37-47 [facility] Comment on above: Order Comment: This specimen has been REJECTED due to Laboratory criteria: Clotted. [email or web address] has been notified of need of recollection. 06/07/24209 Irene Jiménez Performed By: #### L 100.0100 #### [facility] [address] [place], [address] Hemoglobin (Bld) [Mass/Vol] 12.8 g/dL Normal 12.0-15.0 [facility] Comment on above: Order Comment: This specimen has been REJECTED due to Laboratory criteria: Clotted. [email or web address] has been notified of need of recollection. 06/07/24209 Irene Jiménez Performed By: #### L 100.0100 #### [facility] [address] [place], [address] IG% 0.500 Normal 0.0-0.9 [facility] Comment on above: Order Comment: This specimen has been REJECTED due to Laboratory criteria: Clotted. [email or web address] has been notified of need of recollection. 06/07/24209 Irene Jiménez Result Comment: IG% - Immature Granulocytes (promyelocytes, myelocytes and metamyelocytes) > 1% indicates that a LEFT SHIFT is Present. Performed By: #### L 100.0100 #### [facility] [address] [place], [address] Lymphocytes/100 WBC (Bld) 22.0 % Normal 19-41 [facility] Comment on above: Order Comment: This specimen has been REJECTED due to Laboratory criteria: Clotted. [email or web address] has been notified of need of recollection. 06/07/24209 Irene Jiménez Performed By: #### L 100.0100 #### [facility] [address] [place], [address] MCH (RBC) [Entitic mass] 31.2 pg Normal 27.0-32.0 [facility] Comment on above: Order Comment: This specimen has been REJECTED due to Laboratory criteria: Clotted. [email or web address] has been notified of need of recollection. 06/07/24209 Irene C Jessy Performed By: #### L 100.0100 #### [facility] [address] [place], [address] MCHC (RBC) [Mass/Vol] 34.0 g/dL Normal 32-[address] [facility] Comment on above: Order Comment: This specimen has been REJECTED due to Laboratory criteria: Clotted. [email or web address] has been notified of need of recollection. 06/07/24209 Irene C Jessy Performed By: #### L 100.0100 #### [facility] [address] [place], [address] MCV (RBC) [Entitic vol] 92.0 fL Normal 81-99 [facility] Comment on above: Order Comment: This specimen has been REJECTED due to Laboratory criteria: Clotted. [email or web address] has been notified of need of recollection. 06/07/24209 Irene C [place] Performed By: #### L 100.0100 #### [facility] [address] [place], [address] Monocytes/100 WBC (Bld) 8.5 % Normal 0-10 [facility] Comment on above: Order Comment: This specimen has been REJECTED due to Laboratory criteria: Clotted. [email or web address] has been notified of need of recollection. 06/07/24209 Irene C [place] Performed By: #### L 100.0100 #### [facility] [address] [place], [address] Neutrophils/100 WBC (Bld) 68.3 % Normal 47-70 [facility] Comment on above: Order Comment: This specimen has been REJECTED due to Laboratory criteria: Clotted. [email or web address] has been notified of need of recollection. 06/07/24209 Irene C [place] Performed By: #### L 100.0100 #### [facility] [address] [place], [address] Nucleated RBC (Bld) [#/Vol] 0 10*3/uL Normal 0-5 [facility] Comment on above: Order Comment: This specimen has been REJECTED due to Laboratory criteria: Clotted. [email or web address] has been notified of need of recollection. 06/07/24209 Irene C [place] Performed By: #### L 100.0100 #### [facility] [address] [place], [address] Platelet mean volume (Bld) [Entitic vol] 9.4 fL Normal 6.2-12.0 [facility] Comment on above: Order Comment: This specimen has been REJECTED due to Laboratory criteria: Clotted. [email or web address] has been notified of need of recollection. 06/07/24209 Irene C [place] Performed By: #### L 100.0100 #### [facility] [address] [place], [address] Platelets (Bld) [#/Vol] 411 10*3/uL Normal 150-450 [facility] Comment on above: Order Comment: This specimen has been REJECTED due to Laboratory criteria: Clotted. [email or web address] has been notified of need of recollection. 06/07/24209 Irene C [place] Performed By: #### L 100.0100 #### [facility] [address] [place], [address] RBC (Bld) [#/Vol] 4.10 10*6/uL Low 4.2-5.4 [facility] Comment on above: Order Comment: This specimen has been REJECTED due to Laboratory criteria: Clotted. [email or web address] has been notified of need of recollection. 06/07/24209 Irene C Jessy Performed By: #### L 100.0100 #### [facility] [address] [place], [address] RDW SD 40.7 fl Normal 35.1-43.9 [facility] Comment on above: Order Comment: This specimen has been REJECTED due to Laboratory criteria: Clotted. [email or web address] has been notified of need of recollection. 06/07/24209 Irene C Jessy Performed By: #### L 100.0100 #### [facility] [address] [place], [address] WBC (Bld) [#/Vol] 9.2 10*3/uL Normal 4.4-11.0 [facility] Comment on above: Order Comment: This specimen has been REJECTED due to Laboratory criteria: Clotted. [email or web address] has been notified of need of recollection. 06/07/24209 Irene C [place] Performed By: #### L 100.0100 #### [facility] [address] [place], [address] Absolute Neut Normal 2.0-7.7 [facility] Comment on above: Result Comment: This specimen has been REJECTED due to Laboratory criteria: Clotted. [email or web address] has been notified of need of recollection. 06/07/24209 Irene Mike Jessy Performed By: #### L 300.8000, L100.0100, L500.2500, L501.5425 #### [facility] [address] [place], [address] HCT Normal 37-47 [facility] Comment on above: Result Comment: This specimen has been REJECTED due to Laboratory criteria: Clotted. [email or web address] has been notified of need of recollection. 06/07/24209 Irene C Jessy Performed By: #### L 300.8000, L100.0100, L500.2500, L501.5425 #### [facility] [address] [place], [address] HGB Normal 12.0-15.0 [facility] Comment on above: Result Comment: This specimen has been REJECTED due to Laboratory criteria: Clotted. [email or web address] has been notified of need of recollection. 06/07/24209 Irene C Jessy Performed By: #### L 300.8000, L100.0100, L500.2500, L501.5425 #### [facility] [address] [place], [address] MCH Normal 27.0-32.0 [facility] Comment on above: Result Comment: This specimen has been REJECTED due to Laboratory criteria: Clotted. [email or web address] has been notified of need of recollection. 06/07/24209 Irene C [place] Performed By: #### L 300.8000, L100.0100, L500.2500, L501.5425 #### [facility] [address] [place], [address] [facility] Normal 32-36 [facility] Comment on above: Result Comment: This specimen has been REJECTED due to Laboratory criteria: Clotted. [email or web address] has been notified of need of recollection. 06/07/24209 Irene C Jessy Performed By: #### L 300.8000, L100.0100, L500.2500, L501.5425 #### [facility] [address] [place], [address] MCV Normal 81-99 [facility] Comment on above: Result Comment: This specimen has been REJECTED due to Laboratory criteria: Clotted. [email or web address] has been notified of need of recollection. 06/07/24209 Irene C [place] Performed By: #### L 300.8000, L100.0100, L500.2500, L501.5425 #### [facility] [address] [place], [address] NEUT% Normal 47-70 [facility] Comment on above: Result Comment: This specimen has been REJECTED due to Laboratory criteria: Clotted. [email or web address] has been notified of need of recollection. 06/07/24209 Irene C [place] Performed By: #### L 300.8000, L100.0100, L500.2500, L501.5425 #### [facility] [address] [place], [address] PLT Normal 150-450 [facility] Comment on above: Result Comment: This specimen has been REJECTED due to Laboratory criteria: Clotted. [email or web address] has been notified of need of recollection. 06/07/24209 Irene C Jessy Performed By: #### L 300.8000, L100.0100, L500.2500, L501.5425 #### [facility] [address] [place], [address] RBC Normal 4.2-5.4 [facility] Comment on above: Result Comment: This specimen has been REJECTED due to Laboratory criteria: Clotted. [email or web address] has been notified of need of recollection. 06/07/24209 Irene C Jessy Performed By: #### L 300.8000, L100.0100, L500.2500, L501.5425 #### [facility] [address] [place], [address] RDW CV Normal 11.6-14.6 [facility] Comment on above: Result Comment: This specimen has been REJECTED due to Laboratory criteria: Clotted. [email or web address] has been notified of need of recollection. 06/07/24209 Irene C [place] Performed By: #### L 300.8000, L100.0100, L500.2500, L501.5425 #### [facility] [address] [place], [address] RDW SD Normal 35.1-43.9 [facility] Comment on above: Result Comment: This specimen has been REJECTED due to Laboratory criteria: Clotted. [email or web address] has been notified of need of recollection. 06/07/24209 Irene C [place] Performed By: #### L 300.8000, L100.0100, L500.2500, L501.5425 #### [facility] [address] [place], [address] WBC Normal 4.4-11.0 [facility] Comment on above: Result Comment: This specimen has been REJECTED due to Laboratory criteria: Clotted. [email or web address] has been notified of need of recollection. 06/07/24 0210 Irene Jiménez Performed By: #### L 300.8000, L100.0100, L500.2500, L501.5425 #### [facility] [address] [place], [place], [address] Chest 1 View (Portable)on Chest 1 View (Portable) [facility] Imaging Services [address] [place], [place] [address] Chest 1 View (Portable) MR#: [id number] Acct: [id number] Name: LILIAM THOMPSON Rep #: [id number] : 1990 F 33 From: Denisa Hugo MD PCP: Dr. Faustina Carcamo MD Status: REG ER Study: Chest 1 View (Portable) Date of Exam: 06/07/24 Exam# [id number] Ordering Dr: Ermias Kelly MD [id number] STUDY: X-RAY CHEST REASON FOR EXAM: Female, [...] Ermias Kelly MD; Dr. 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 Performed By: #### L 300.8000, L100.0100, L500.2500, L501.5425 #### [facility] [address] [facility] [place], [address] Emergency Department Summary on 06-07-2024 Emergency Department Summary [facility] Medical Records Department [address] [place] [address] Emergency Department Summary 06/07/24 MR#: [id number] Acct: [id number] Name: LILIAM THOMPSON Rep #: [id number] : 1990 33 From: Ermias Kelly MD [...] legs. No other exacerbating or alleviating factors. [facility] Medical History Morbid (severe) obesity due to [...] mg PO TID PRN 03/02/19 Unknown History Anxiety/Restlessness/S leep medroxyprogesterone 150 mg/mL 150 mg IM .[id number] 03/02/19 Unknown History intramuscular syringe meloxicam 15 [...] independent interpre (more content not included)... Normal [facility] L501.4020on 06-07-2024 TROPONIN-I HS 4 pg/mL Normal 3.0-54.0 [facility] Comment on above: Result Comment: Shameka chu Note: New Test Units and Gender Specific Reference Ranges. For more information see Policy Stat Procedure [place] High Sensitivity Troponin (TNIH) and attachments. Performed By: #### L 501.4020 #### [facility] [place], [address] L501.5425on 06-07-2024 TROPONIN-I HS 4 pg/mL Normal 3.0-54.0 [facility] Comment on above: Order Comment: 1 Y Result Comment: Shameka chu Note: New Test Units and Gender Specific Reference Ranges. For more information see Policy Stat Procedure [place] High Sensitivity Troponin (TNIH) and attachments. Performed By: #### L 300.8000, L100.0100, L500.2500, L501.5425 #### [facility] [address] [place], [address] CNCNPATEDon 05-14-2024 CNCNPATED Normal [facility] CNPNon 05-04-2024 CNPN Normal [facility] CNPNon 04-30-2024 CNPN Normal [facility] CNOVon 04-03-2024 CNOV Normal [facility] CNPNon 04-03-2024 CNPN Normal [facility] ALT SerPl-cCncon 04-02-2024 ALT [Catalytic activity/Vol] 34 U/L Normal 7-38 [facility] Comment on above: Order Comment: Speci men Type: BLOOD SPECIMENOrdering Facility: [facility] Address: [address] [place] [address] Performed By: #### Mike RET1, 1920-03, 2157-01, 1987-12, 1742-01 ####[facility] LABCLIA [id number] [address] [address] [place] AST SerPl-cCncon 04-02-2024 AST [Catalytic activity/Vol] 28 U/L Normal 13-35 [facility] Comment on above: Order Comment: Speci men Type: BLOOD SPECIMENOrdering Facility: [facility] Address: [address] [place] [address] Performed By: #### C RET1, 1920-03, 2157-01, 1987-12, 1742-01 ####[facility] LABCLIA [id number] [address] [address] [place] Aldolase SerPl-cCncon 2023 Aldolase [Catalytic activity/Vol] 3.4 mU/mL Normal 1.5-8.1 [facility] Comment on above: Order Comment: Krystyna armstrong Type: BLOOD SPECIMENOrdering Facility: [facility] Address: [address] [place] [address] Result Comment: This test was developed and its performance characteristics determined by [facility]'s Guillaume Jennifer [facility] Pathology and Laboratory Medicine [place] ([facility]PLMI). It has not been cleared or approved by the FDA. [facility] is regulated under CLIA as qualified to perform high-complexity testing. This test is used for clinical purposes. It should not be regarded as investigational or for research. Performed By: #### 1 761-6 ####[facility] LABCLIA [id number] [place] [address] [place] BUN SerPl-mCncon 04-02-2024 Urea nitrogen [Mass/Vol] 10 mg/dL Normal 7-21 [facility] Comment on above: Order Comment: Krystyna armstrong Type: BLOOD SPECIMENOrdering Facility: [facility] Address: [address] [place] [address] Performed By: #### 3 094-0 ####[facility] LABCLIA [id number] [place] [address] [place] CBC W Auto Differential pane l (Bld)on 04-02-2024 Basophils (Bld) [#/Vol] 0.05 10*3/uL [facility] Basophils/100 WBC (Bld) 0.6 % [facility] Differential cell count method Nom (Bld) Auto [facility] Eosinophils (Bld) [#/Vol] 0.14 10*3/uL [facility] Eosinophils/100 WBC (Bld) 1.6 % [facility] Erythrocyte distribution width (RBC) [Ratio] 12.4 % 11.5 - 15.0 % [facility] Hematocrit (Bld) [Volume fraction] 41.7 % 36.0 - 46.0 % [facility] Hemoglobin (Bld) [Mass/Vol] 13.6 g/dL 11.5 - 15.5 g/dL [facility] Immature granulocytes (Bld) [#/Vol] 0.04 10*3/uL [facility] Immature granulocytes/100 WBC (Bld) 0.5 % [facility] Interpretation and review of laboratory results Abnormal [facility] Lymphocytes (Bld) [#/Vol] 2.86 10*3/uL [facility] Lymphocytes/100 WBC (Bld) 32.6 % [facility] MCH (RBC) [Entitic mass] 31.8 pg 26.0 - 34.0 pg [facility] MCHC (RBC) [Mass/Vol] 32.6 g/dL 30.5 - 36.0 g/dL [facility] MCV (RBC) [Entitic vol] 97.4 fL 80.0 - 100.0 fL [facility] Monocytes (Bld) [#/Vol] 0.65 10*3/uL [facility] Monocytes/100 WBC (Bld) 7.4 % [facility] Neutrophils (Bld) [#/Vol] 5.03 10*3/uL [facility] Neutrophils/100 WBC (Bld) 57.3 % [facility] Nucleated RBC (Bld) [#/Vol] [facility] Nucleated RBC/100 WBC (Bld) [Ratio] 0.0 % /100 WBC [facility] Platelet mean volume (Bld) [Entitic vol] 10.2 fL 9.0 - 12.7 fL [facility] Platelets (Bld) [#/Vol] 423 10*3/uL High [facility] RBC (Bld) [#/Vol] 4.28 10*6/uL 3.90 - 5.2 0 m/uL [facility] WBC (Bld) [#/Vol] 8.77 10*3/uL [facility] Basophils (Bld) [#/Vol] 0.05 10*3/uL Normal <0.11 [facility] Comment on above: Order Comment: Speci men Type: BLOOD SPECIMENOrdering Facility: [facility] Address: [address] [place] [address] Performed By: #### 4 537-7, 88599-0 ####[facility] LABCLIA [id number] [address] [place] Basophils/100 WBC (Bld) 0.6 % Normal [facility] Comment on above: Order Comment: Speci men Type: BLOOD SPECIMENOrdering Facility: [facility] Address: [address] [place] [address] Performed By: #### 4 537-7, 59821-6 ####[facility] LABCLIA [id number] [place] [address] [place] Differential cell count method Nom (Bld) Auto Normal [facility] Comment on above: Order Comment: Speci men Type: BLOOD SPECIMENOrdering Facility: [facility] Address: [address] [place] [address] Performed By: #### 4 537-7, 53664-5 ####[facility] LABCLIA [id number] [place] [address] [place] Eosinophils (Bld) [#/Vol] 0.14 10*3/uL Normal <0.46 [facility] Comment on above: Order Comment: Speci men Type: BLOOD SPECIMENOrdering Facility: [facility] Address: [address] [place] [address] Performed By: #### 4 537-7, 75401-4 ####[facility] LABCLIA [id number] [place] [address] [place] Eosinophils/100 WBC (Bld) 1.6 % Normal [facility] Comment on above: Order Comment: Speci men Type: BLOOD SPECIMENOrdering Facility: [facility] Address: [address] [place] [address] Performed By: #### 4 537-7, 55931-1 ####[facility] LABCLIA [id number] [place] [address] [place] Erythrocyte distribution width (RBC) [Ratio] 12.4 % Normal 11.5-15.0 [facility] Comment on above: Order Comment: Speci men Type: BLOOD SPECIMENOrdering Facility: [facility] Address: [address] [place] [address] Performed By: #### 4 537-7, 74835-4 ####[facility] LABIA [id number] [place] [address] [place] Hematocrit (Bld) [Volume fraction] 41.7 % Normal 36.0-46.0 [facility] Comment on above: Order Comment: Speci men Type: BLOOD SPECIMENOrdering Facility: [facility] Address: [address] [place] [address] Performed By: #### 4 537-7, 14689-4 ####[facility] LABIA [id number] [place] [address] [place] Hemoglobin (Bld) [Mass/Vol] 13.6 g/dL Normal 11.5-15.5 [facility] Comment on above: Order Comment: Speci men Type: BLOOD SPECIMENOrdering Facility: [facility] Address: [address] [place] [address] Performed By: #### 4 537-7, 94034-4 ####[facility] LABIA [id number] [place] [address] [place] Immature granulocytes (Bld) [#/Vol] 0.04 10*3/uL Normal <0.10 [facility] Comment on above: Order Comment: Speci men Type: BLOOD SPECIMENOrdering Facility: [facility] Address: [address] [place] [address] Performed By: #### 4 537-7, 87554-7 ####[facility] LABIA [id number] [place] [address] [place] Immature granulocytes/100 WBC (Bld) 0.5 % Normal [facility] Comment on above: Order Comment: Speci men Type: BLOOD SPECIMENOrdering Facility: [facility] Address: [address] [place] [address] Performed By: #### 4 537-7, 82954-3 ####[facility] LABCLIA [id number] [place] [address] [place] Lymphocytes (Bld) [#/Vol] 2.86 10*3/uL Normal 1.00-4.00 [facility] Comment on above: Order Comment: Speci men Type: BLOOD SPECIMENOrdering Facility: [facility] Address: [address] [place] [address] Performed By: #### 4 537-7, 46110-9 ####[facility] LABCLIA [id number] [place] [address] [place] Lymphocytes/100 WBC (Bld) 32.6 % Normal [facility] Comment on above: Order Comment: Speci men Type: BLOOD SPECIMENOrdering Facility: [facility] Address: [address] [place] [address] Performed By: #### 4 537-7, 78623-0 ####[facility] LABIA [id number] [place] [address] [place] MCH (RBC) [Entitic mass] 31.8 pg Normal 26.0-34.0 [facility] Comment on above: Order Comment: Speci men Type: BLOOD SPECIMENOrdering Facility: [facility] Address: [address] [place] [address] Performed By: #### 4 537-7, 35000-5 ####[facility] LABIA [id number] [place] [address] [place] MCHC (RBC) [Mass/Vol] 32.6 g/dL Normal 30.5-36.0 [facility] Comment on above: Order Comment: Speci men Type: BLOOD SPECIMENOrdering Facility: [facility] Address: [address] [place] [address] Performed By: #### 4 537-7, 45370-9 ####[facility] LABCLIA [id number] [id number] [address] [place] MCV (RBC) [Entitic vol] 97.4 fL Normal 80.0-100.0 [facility] Comment on above: Order Comment: Speci men Type: BLOOD SPECIMENOrdering Facility: [facility] Address: [address] [place] [address] Performed By: #### 4 537-7, 58159-3 ####[facility] LABCLIA [id number] [place] [address] [place] Monocytes (Bld) [#/Vol] 0.65 10*3/uL Normal <0.87 [facility] Comment on above: Order Comment: Speci men Type: BLOOD SPECIMENOrdering Facility: [facility] Address: [address] [place] [address] Performed By: #### 4 537-7, 65814-6 ####[facility] LABCLIA [id number] [place] [address] [place] Monocytes/100 WBC (Bld) 7.4 % Normal [facility] Comment on above: Order Comment: Speci men Type: BLOOD SPECIMENOrdering Facility: [facility] Address: [address] [place] [address] Performed By: #### 4 537-7, 93895-3 ####[facility] LABCLIA [id number] [place] [address] [place] Neutrophils (Bld) [#/Vol] 5.03 10*3/uL Normal 1.45-7.50 [facility] Comment on above: Order Comment: Speci men Type: BLOOD SPECIMENOrdering Facility: [facility] Address: [address] [place] [address] Performed By: #### 4 537-7, 85322-3 ####[facility] LABCLIA [id number] [place] [address] [place] Neutrophils/100 WBC (Bld) 57.3 % Normal [facility] Comment on above: Order Comment: Speci men Type: BLOOD SPECIMENOrdering Facility: [facility] Address: [address] [place] [address] Performed By: #### 4 537-7, 56495-3 ####[facility] LABIA [id number] [place] [address] [place] Nucleated RBC (Bld) [#/Vol] 10*3/uL Normal <0.01 [facility] Comment on above: Order Comment: Speci men Type: BLOOD SPECIMENOrdering Facility: [facility] Address: [address] [place] [address] Performed By: #### 4 537-7, 49321-4 ####[facility] LABIA [id number] [place] [address] [place] Nucleated RBC/100 WBC (Bld) [Ratio] 0.0 /100 WBC Normal [facility] Comment on above: Order Comment: Speci men Type: BLOOD SPECIMENOrdering Facility: [facility] Address: [address] [place] [address] Performed By: #### 4 537-7, 22475-9 ####[facility] LABIA [id number] [place] [address] [place] Platelet mean volume (Bld) [Entitic vol] 10.2 fL Normal 9.0-12.7 [facility] Comment on above: Order Comment: Speci men Type: BLOOD SPECIMENOrdering Facility: [facility] Address: [address] [place] [address] Performed By: #### 4 537-7, 76991-1 ####[facility] LABIA [id number] [place] [address] [place] Platelets (Bld) [#/Vol] 423 10*3/uL High 150-400 [facility] Comment on above: Order Comment: Speci men Type: BLOOD SPECIMENOrdering Facility: [facility] Address: [address] [place] [address] Performed By: #### 4 537-7, 34176-2 ####[facility] LABCLIA [id number] [place] [id number] [place] RBC (Bld) [#/Vol] 4.28 10*6/uL Normal 3.90-5.20 [facility] Comment on above: Order Comment: Speci men Type: BLOOD SPECIMENOrdering Facility: [facility] Address: [address] [place] [address] Performed By: #### 4 537-7, 79652-0 ####[facility] LABIA [id number] [place] [address] [place] WBC (Bld) [#/Vol] 8.77 10*3/uL Normal 3.70-11.00 [facility] Comment on above: Order Comment: Speci men Type: BLOOD SPECIMENOrdering Facility: [facility] Address: [address] [place] [address] Performed By: #### 4 537-7, 89458-7 ####[facility] LABIA [id number] [place] [address] [place] CK SerPl-cCncon 04-02-2024 CK [Catalytic activity/Vol] 31 U/L Low 42-196 [facility] Comment on above: Order Comment: Speci men Type: BLOOD SPECIMENOrdering Facility: [facility] Address: [address] [place] [address] Performed By: #### C RET1, 1920-8, 2157-6, 1987-5, 1742-6 ####[facility] LABIA [id number] [place] [address] [place] CREATININE BLDon 04-02-2024 Creatinine [Mass/Vol] 0.58 mg/dL Normal 0.58-0.96 [facility] Comment on above: Order Comment: Speci men Type: BLOOD SPECIMENOrdering Facility: [facility] Address: [address] [place] [address] Performed By: #### C RET1, 1920-03, 2157-01, 1987-12, 1742-01 ####[facility] LABCLIA [id number] [place] [address] [place] Creatinine and Glomerular filtration rate.predicted panel (S/P/Bld) 124 mL/min/1.73m??? Normal >=60 [facility] Comment on above: Order Comment: Speci men Type: BLOOD SPECIMENOrdering Facility: [facility] Address: [address] [place] [address] Result Comment: Imelda mated Glomerular Filtration Rate [...] #### C RET1, 1920-03, 2157-01, 1987-12, 1742-01 ####[facility] LABIA [id number] [place] [id number] [place] CRP SerPl-mCncon 04-02-2024 CRP [Mass/Vol] mg/L Normal <0.9 [facility] Comment on above: Order Comment: Krystyna men Type: BLOOD SPECIMENOrdering Facility: [facility] Address: [address] [place] [address] Performed By: #### C RET1, 1920-03, 2157-01, 1987-12, 1742-01 ####[facility] LABCLIA [id number] [place] [id number] [place] ESR Westergren method (Bld) [Velocity]on 04-02-2024 ESR (Bld) [Velocity] 8 mm/h Normal 0-20 [facility] Comment on above: Order Comment: Speci men Type: BLOOD SPECIMENOrdering Facility: [facility] Address: [address] [place] [address] Performed By: #### 4 537-7, 08972-6 ####[facility] LABCLIA [id number] [place] [address] [place] Urinalysis complete panel (U )on 04-02-2024 Bacteria LM.HPF (Urine sed) [#/Area] Negative Normal Negative [facility] Comment on above: Order Comment: Speci men Type: URINE SPECIMENOrdering Facility: [facility] Address: [address] [place] [address] Performed By: #### 2 4356-8 ####[facility] LABCLIA [id number] [place] [address] [place] Bilirubin Ql (U) Negative Normal Negative [facility] Comment on above: Order Comment: Speci men Type: URINE SPECIMENOrdering Facility: [facility] Address: [address] [place] [address] Performed By: #### 2 4356-8 ####[facility] LABCLIA [id number] [place] [address] [place] Clarity (Unsp spec) Clear Normal Clear [facility] Comment on above: Order Comment: Speci men Type: URINE SPECIMENOrdering Facility: [facility] Address: [address] [place] [address] Performed By: #### 2 4356-8 ####[facility] LABCLIA [id number] [place] [address] [place] Color (U) Yellow Normal Yellow [facility] Comment on above: Order Comment: Speci men Type: URINE SPECIMENOrdering Facility: [facility] Address: [address] [place] [address] Performed By: #### 2 4356-8 ####[facility] LABCLIA [id number] [address] [id number] Epithelial cells LM.HPF (Urine sed) [#/Area] None Seen Normal [facility] Comment on above: Order Comment: Speci men Type: URINE SPECIMENOrdering Facility: [facility] Address: [address] [place] [address] Performed By: #### 2 4356-8 ####[facility] LABCLIA [id number] [address] [place] Glucose Test strip (U) [Mass/Vol] Negative Normal Negative [facility] Comment on above: Order Comment: Speci men Type: URINE SPECIMENOrdering Facility: [facility] Address: [address] [place] [address] Performed By: #### 2 4356-8 ####[facility] LABCLIA [id number] [place] [address] [place] Hemoglobin Ql (U) Negative Normal Negative [facility] Comment on above: Order Comment: Speci men Type: URINE SPECIMENOrdering Facility: [facility] Address: [address] [place] [address] Performed By: #### 2 4356-8 ####[facility] LABCLIA [id number] [address] [place] Hyaline casts (Urine sed) [#/Area] 0 /[LPF] Normal 0 /LPF [facility] Comment on above: Order Comment: Speci men Type: URINE SPECIMENOrdering Facility: [facility] Address: [address] [place] [address] Performed By: #### 2 4356-8 ####[facility] LABCLIA [id number] [address] [place] Ketones Ql (U) Negative Normal Negative [facility] Comment on above: Order Comment: Speci men Type: URINE SPECIMENOrdering Facility: [facility] Address: [address] [place] [address] Performed By: #### 2 4356-8 ####[facility] LABCLIA [id number] [place] [address] [place] Leukocyte esterase Test strip Ql (U) Negative Normal Negative [facility] Comment on above: Order Comment: Speci men Type: URINE SPECIMENOrdering Facility: [facility] Address: [address] [place] [address] Performed By: #### 2 4356-8 ####[facility] LABCLIA [id number] [place] [address] [place] Nitrite Ql (U) Negative Normal Negative [facility] Comment on above: Order Comment: Speci men Type: URINE SPECIMENOrdering Facility: [facility] Address: [address] [place] [address] Performed By: #### 2 4356-8 ####[facility] LABCLIA [id number] [place] [address] [place] pH (U) 6.0 [pH] Normal <8.5 [facility] Comment on above: Order Comment: Speci men Type: URINE SPECIMENOrdering Facility: [facility] Address: [address] [place] [address] Performed By: #### 2 4356-8 ####[facility] LABCLIA [id number] [place] [address] [place] Protein (U) [Mass/Vol] Negative Normal Negative [facility] Comment on above: Order Comment: Speci men Type: URINE SPECIMENOrdering Facility: [facility] Address: [address] [place] [address] Performed By: #### 2 4356-8 ####[facility] LABCLIA [id number] [place] [address] [place] RBC LM.HPF (Urine sed) [#/Area] 0-2 /HPF Normal 0-2 /HPF [facility] Comment on above: Order Comment: Speci men Type: URINE SPECIMENOrdering Facility: [facility] Address: [address] [place] [address] Performed By: #### 2 4356-8 ####[facility] [id number] [place] [address] [place] Specific gravity (U) [Rel density] 1.010 Normal 1.005-1.030 [facility] Comment on above: Order Comment: Speci men Type: URINE SPECIMENOrdering Facility: [facility] Address: [address] [place] [address] Performed By: #### 2 4356-8 ####[facility] [id number] [place] [address] [place] Urobilinogen Ql (U) 0.2 EU/dL Normal 0.2-1.0 EU/dL [facility] Comment on above: Order Comment: Speci men Type: URINE SPECIMENOrdering Facility: [facility] Address: [address] [place] [address] Performed By: #### 2 4356-8 ####[facility] [id number] [place] [address] [place] WBC LM.HPF (Urine sed) [#/Area] 0-5 /HPF Normal 0-5 /HPF [facility] Comment on above: Order Comment: Speci men Type: URINE SPECIMENOrdering Facility: [facility] Address: [address] [place] [address] Performed By: #### 2 4356-8 ####[facility] [id number] [place] [address] [place] XR CHEST 2V FRONTAL/LATon XR CHEST 2V FRONTAL/LAT Normal [facility] XR Chest PA and Lateralon IMPRESSION: No acute radiographic abnormality. Auto Fleet Manager: REUBEN Transcribe Date/Time: Apr 02 2024 3:48P Dictated by : LOU JUARES MD This examination was interpreted and the report reviewed and electronically signed by: LOU JUARES MD on Apr 02 2024 3:49PM EST DIVISION OF RADIOLOGY * * *Final [...] soft tissues: Unremarkable. DIVISION OF RADIOLOGY Provider, [facility] - 04/02/2024 * * *Final Report* * [...] Unremarkable. IMPRESSION IMPRESSION: No acute radiographic abnormality. Auto Fleet Manager: PSCB Transcribe Date/Time: Apr 02 2024 3:48P Dictated by : LOU JUARES MD This examination was interpreted and the report reviewed and electronically signed by: LOU JUARES MD on Apr 02 2024 3:49PM EST [facility] Radiology Study observation (narrative) [facility] XR Chest PA and LateralOrder ed By: Ccf Provider [facility] CNNURSE Normal [facility] CNPNon 03-29-2024 CNPN Normal [facility] CNOVon 03-15-2024 CNOV Normal [facility] SURGICAL PATHOLOGYon 024 CASE REPORT Normal [facility] Comment on above: Order Comment: Speci men Type: TISSUE SPECIMENOrdering Facility: [facility] Address: [address] [place] [address] Result Comment: Surg ical Pathology Report Case: [id number] Provider: Karen Jenkins MD Collected: 03/15/2024 10:31 AMOrdering Location: OB/Gynecology Received: 03/15/2024 11:41 AMPathologist: [place] MDSpecimens: A) - Cervix, Biopsy, 12 oclock B) - Endocervix, Curettings Performed By: #### S ####[facility] LABCLIA [id number] [address] [place] CLINICAL HISTORY hpv pos Normal [facility] Comment on above: Order Comment: Speci men Type: TISSUE SPECIMENOrdering Facility: [facility] Address: [address] [place] [address] Performed By: #### S ####[facility] LABCLIA [id number] [address] [place] FINAL DIAGNOSIS Normal [facility] Comment on above: Order Comment: Speci men Type: TISSUE SPECIMENOrdering Facility: [facility] Address: [address] [place] [address] Result Comment: A. C ervix, biopsy at 12:00:- Benign ectocervix.B. Endocervix, curettings:- Benign endocervical epithelium.ACV/mm/03/16/2024 Performed By: #### S ####[facility] LABCLIA [id number] [place] [address] [place] FINAL PERFORMING LAB Normal [facility] Comment on above: Order Comment: Speci men Type: TISSUE SPECIMENOrdering Facility: [facility] Address: [address] [place] [address] Result Comment: Diag nostic interpretation performed at [facility], [address] [place] [address] CLIA# [id number] Director: Nito Chamberlain M.D. Performed By: #### S ####[facility] LABCLIA [id number] [place] [address] [place] GROSS DESCRIPTION Normal [place] [facility] Comment on above: Order Comment: Speci men Type: TISSUE SPECIMENOrdering Facility: [facility] Address: [address] [place] [address] Result Comment: A. C ervix, BiopsyReceived in formalin is one piece of salazar, soft mucosal covered tissue measuring 0.7 x 0.5 x 0.3 cm. Totally submitted in one cassette.B. Endocervix, CurettingsReceived in formalin are multiple salazar-white, soft feathery segments of tissue aggregating to 0.5 x 0.3 by less than 0.1 cm. 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) Internal QC OK [facility] Location:[facility], [address] , [place], [address] [facility] POINT OF CARE [facility] CNOVon 03-12-2024 CNOV Normal [facility] CNPNon 03-12-2024 CNPN Normal [facility] CNOVon 02-27-2024 CNOV Normal [facility] HIGH RISK HUMAN PAPILLOMA LEYDA (HPV), PCR FOR DETECTION AND GENOTYPINGon 02-27-2024 HPV 16 Ag Ql (Unsp spec) Not detected Normal Not detected [facility] Comment on above: Order Comment: Speci men Type: FLUID SPECIMENOrdering Facility: [facility] Address: [address] [place] [address] Performed By: #### H PVHRT, [id number] ####[facility] LABCLIA [id number] [place] [address] [place] HPV 18 Ag Ql (Unsp spec) Not detected Normal Not detected [facility] Comment on above: Order Comment: Speci men Type: FLUID SPECIMENOrdering Facility: [facility] Address: [address] [place] [address] Performed By: #### H PVHRT, [id number] ####[facility] LABCLIA [id number] [place] [address] [place] HPV 31+33+35+39+45+51+52+ 56+58+59+66+68 DNA JOSSIE+probe Ql (Cvx) Detected Abnormal Not detected [facility] Comment on above: Order Comment: Speci men Type: FLUID SPECIMENOrdering Facility: [facility] Address: [address] [place] [address] Result Comment: High Risk HPV Other Type includes HPV types 31, 33, 35, 39, 45, 51, 52, 56, 58, 59, 66 and 68. Performed By: #### H PVHRT, [id number] ####[facility] LABCLIA [id number] [place] [address] [place] PAP TESTon 02-27-2024 ADEQUACY Satisfactory for interpretation. Normal [facility] Comment on above: Order Comment: Speci men Type: FLUID SPECIMENOrdering Facility: [facility] Address: [address] [place] [address] Performed By: #### H PVHRT, [id number] ####[facility] LABCLIA [id number] [place] [address] [place] CASE REPORT Normal [facility] Comment on above: Order Comment: Speci men Type: FLUID SPECIMENOrdering Facility: [facility] Address: [address] [place] [address] Result Comment: Gyne cologic Cytology Report Case: [id number] Provider: Ayaan Rowley APRN.CNM Collected: 02/27/2024 03:56 PMOrdering Location: OB/Gynecology Received: 02/27/2024 04:47 PMFirst Screen: Gladkelba, Yesenia, CT, ASCPRescreen: Autumn Beck LSpecimen: Pap Test, ThinPrep, Cervix Performed By: #### H PVHRT, [id number] ####[facility] LABCLIA [id number] [place] [address] [place] CLINICAL HISTORY, CYTOLOGY, DIGITAL OPERATIONS ANALYST Positive Normal [facility] Comment on above: Order Comment: Speci men Type: FLUID SPECIMENOrdering Facility: [facility] Address: [address] [place] [address] Result Comment: Intr a Uterine Device, No Menses Performed By: #### H PVHRT, [id number] ####[facility] LABCLIA [id number] [place] [address] [place] FINAL PERFORMING LAB Normal [facility] Comment on above: Order Comment: Speci men Type: FLUID SPECIMENOrdering Facility: [facility] Address: [address] [place] [address] Result Comment: Tech nical component, repair cameraman screening performed at [facility], [address] [place], [place] [id number] CLIA# [id number] interpretation performed at [facility], [address] [place], [place] [id number] CLIA# [id number] Director: Nito Chamberlain M.D. Performed By: #### H PVHRT, [id number] ####[facility] LABCLIA [id number] [address] [address] [place] HPV REFLEX Yes HPV Normal [facility] Comment on above: Order Comment: Speci men Type: FLUID SPECIMENOrdering Facility: [facility] Address: [address] [place] [address] Performed By: #### H PVHRT, [id number] ####[facility] LABCLIA [id number] [address] [address] [place] INTERPRETATION, CYTOLOGY, DIGITAL OPERATIONS ANALYST Normal [facility] Comment on above: Order Comment: Speci men Type: FLUID SPECIMENOrdering Facility: [facility] Address: [address] [place] [address] Result Comment: Nega tive for intraepithelial lesion or malignancy. Performed By: #### H PVHRT, [id number] ####[facility] LABCLIA [id number] [place] [address] [place] PAP DISCLAIMER COMMENT The Pap Smear is a screening test for cervical cancer. False negative results occur with all screening tests, emphasizing the need for rescreening at recommended intervals, and clinical correlation. Normal [facility] Comment on above: Order Comment: Speci men Type: FLUID SPECIMENOrdering Facility: [facility] Address: [address] [place] [address] Performed By: #### H PVHRT, [id number] ####[facility] LABCLIA [id number] [place] [id number] [place] PAP FINAL INSPECTOR SHUTTLE COMMENT Normal [facility] Comment on above: Order Comment: Speci men Type: FLUID SPECIMENOrdering Facility: [facility] Address: [address] [place] [address] Performed By: #### H PVHRT, [id number] ####[facility] LABCLIA [id number] [place] [address] [place] 25(OH)D3 SerPl-mCncon 2023 25-hydroxyvitamin D3 [Mass/Vol] 18.0 ng/mL Low 31.0-80.0 [facility] Comment on above: Order Comment: Speci men Type: BLOOD SPECIMENOrdering Facility: [facility] Address: [address] [place] [address] Result Comment: Clas sification of 25 [place] Vitamin D status:Deficiency/Insufficiency: < or = 30 ng/ml.Sufficiency/Optimal Levels: 31-80 ng/mLToxicity: > 100 ng/mL.Test performed by chemiluminescent immunoassay. Performed By: #### 1 989-3 ####[facility] LABCLIA [id number] [place] [address] [place] ALGN KIWI IGEon 02-09-2024 Kiwifruit IgE Qn (S) <0.35 Normal <0.35 [facility] Comment on above: Order Comment: Speci men Type: BLOOD SPECIMENOrdering Facility: [facility] Address: [address] [place] [address] Performed By: #### 6 035-0, SULMA LATEXA ####[facility] LABCLIA [id number] [place] [address] [place] Kiwifruit IgE RAST class (S) Class 0 Normal Class 0 [facility] Comment on above: Order Comment: Speci men Type: BLOOD SPECIMENOrdering Facility: [facility] Address: [address] [place] [address] Performed By: #### 6 035-0, SULMA LATEXA ####[facility] LABCLIA [id number] [place] [address] [place] ALGN LATEX IGEon 02-09-2024 Latex IgE Qn (S) <0.35 Normal <0.35 [facility] Comment on above: Order Comment: Speci men Type: BLOOD SPECIMENOrdering Facility: [facility] Address: [address] [place] [address] Performed By: #### 6 035-0, SULMA LATEXA ####[facility] LABCLIA [id number] [place] [address] [place] Latex IgE RAST class (S) Class 0 Normal Class 0 [facility] Comment on above: Order Comment: Speci men Type: BLOOD SPECIMENOrdering Facility: [facility] Address: [address] [place] [address] Performed By: #### 6 035-0, SULMA LATEXA ####[facility] LABCLIA [id number] [place] [address] [place] ALT SerPl-cCncon 02-09-2024 ALT [Catalytic activity/Vol] 30 U/L Normal 7-38 [facility] Comment on above: Order Comment: Speci men Type: BLOOD SPECIMENOrdering Facility: [facility] Address: [address] [place] [address] Performed By: #### 2 4321-2, 3024-7, 3051-0, 1742-6 ####[facility] LABCLIA [id number] [place] [address] [place] AST SerPl-cCncon 02-09-2024 AST [Catalytic activity/Vol] 31 U/L Normal 13-35 [facility] Comment on above: Order Comment: Speci men Type: BLOOD SPECIMENOrdering Facility: [facility] Address: [address] [place] [address] Performed By: #### 1 988-5, 1920-8 ####[facility] LABCLIA [id number] [place] [address] [place] Banana IgE Qnon 02-09-2024 Banana IgE Qn (S) <0.35 Normal <0.35 [facility] Comment on above: Order Comment: Speci men Type: BLOOD SPECIMENOrdering Facility: [facility] Address: [address] [place] [address] Performed By: #### 6 035-0, YANCI OZUNA ####[facility] LABCLIA [id number] [place] [address] [place] Banana IgE Qn (S)on 02-09-20 Banana IgE RAST class (S) Class 0 Normal Class 0 [facility] Comment on above: Order Comment: Speci men Type: BLOOD SPECIMENOrdering Facility: [facility] Address: [address] [place] [address] Performed By: #### 6 035-0, YANCI OZUNA ####[facility] LABCLIA [id number] [place] [address] [place] Basic metabolic 2000 panelon 02-09-2024 Anion gap [Moles/Vol] 13 mmol/L Normal 8-15 [facility] Comment on above: Order Comment: Speci men Type: BLOOD SPECIMENOrdering Facility: [facility] Address: [address] [place] [address] Performed By: #### 2 4321-2, 3024-7, 3051-0, 1742-6 ####[facility] LABIA [id number] [place] [address] [place] Calcium [Mass/Vol] 10.1 mg/dL Normal 8.5-10.2 [facility] Comment on above: Order Comment: Speci men Type: BLOOD SPECIMENOrdering Facility: [facility] Address: [address] [place] [address] Performed By: #### 2 4321-2, 3024-7, 3051-0, 1742-6 ####[facility] LABCLIA [id number] [place] [address] [place] Chloride [Moles/Vol] 105 mmol/L Normal 98-107 [facility] Comment on above: Order Comment: Speci men Type: BLOOD SPECIMENOrdering Facility: [facility] Address: [address] [place], [place] [address] Performed By: #### 2 4321-2, 3024-7, 3051-0, 2-6 ####[facility] LABIA [id number] [address] [address] [place] CO2 [Moles/Vol] 20 mmol/L Low 22-30 [facility] Comment on above: Order Comment: Speci men Type: BLOOD SPECIMENOrdering Facility: [facility] Address: [address] [place], [place] [address] Performed By: #### 2 4321-2, 3024-7, 3051-0, 2-6 ####[facility] [id number] [place] [address] [place] Creatinine [Mass/Vol] 0.60 mg/dL Normal 0.58-0.96 [facility] Comment on above: Order Comment: Speci men Type: BLOOD SPECIMENOrdering Facility: [facility] Address: [address] [place] [address] Performed By: #### 2 4321-2, 3024-7, 305-0, 6 ####[facility] [id number] [place] [address] [place] Creatinine and Glomerular filtration rate.predicted panel (S/P/Bld) 123 mL/min/1.73m??? Normal >=60 [facility] Comment on above: Order Comment: Speci men Type: BLOOD SPECIMENOrdering Facility: [facility] Address: [address] [place] [address] Result Comment: Imelda mated Glomerular Filtration Rate [...] By: #### 2 4321-2, 3024-7, 3051-0, 1741-6 ####[facility] LABCLIA [id number] [address] [address] [place] Glucose [Mass/Vol] 95 mg/dL Normal 74-99 [facility] Comment on above: Order Comment: Krystyna armstrong Type: BLOOD SPECIMENOrdering Facility: [facility] Address: [address] [place] [address] Result Comment: The [place] Diabetes [employer] (ADA) provides guidance for cutoff [...] Standards of Medical Care in Diabetes 2016, [place] [employer]. Diabetes Care. 2016.39(Suppl 1). Performed By: #### 2 4321-2, 3024-7, 3050-0, 1741-6 ####[facility] LABCLIA [id number] [address] [address] [place] Potassium [Moles/Vol] 4.5 mmol/L Normal 3.7-5.1 [facility] Comment on above: Order Comment: Krystyna armstrong Type: BLOOD SPECIMENOrdering Facility: [facility] Address: [address] [place] [address] Performed By: #### 2 4321-2, 3024-7, 305-0, 1741-6 ####[facility] LABCLIA [id number] [address] [address] [place] Sodium [Moles/Vol] 138 mmol/L Normal 136-144 [facility] Comment on above: Order Comment: Speci men Type: BLOOD SPECIMENOrdering Facility: [facility] Address: [address] [place] [address] Performed By: #### 2 4321-2, 3024-7, 3051-0, 1742-6 ####[facility] LABCLIA [id number] [place] [address] [place] Urea nitrogen [Mass/Vol] 9 mg/dL Normal 7-21 [facility] Comment on above: Order Comment: Speci men Type: BLOOD SPECIMENOrdering Facility: [facility] Address: [address] [place] [address] Performed By: #### 2 4321-2, 3024-7, 3051-0, 2-6 ####[facility] LABCLIA [id number] [place] [address] [place] CBC W Auto Differential pane l (Bld)on 02-09-2024 Basophils (Bld) [#/Vol] 0.06 10*3/uL Normal <0.11 [facility] Comment on above: Order Comment: Speci men Type: BLOOD SPECIMENOrdering Facility: [facility] Address: [address] [place] [address] Performed By: #### 4 537-7, 12552-9 ####[facility] LABCLIA [id number] [place] [address] [place] Basophils/100 WBC (Bld) 1.0 % Normal [facility] Comment on above: Order Comment: Speci men Type: BLOOD SPECIMENOrdering Facility: [facility] Address: [address] [place] [address] Performed By: #### 4 537-7, 01923-6 ####[facility] LABCLIA [id number] [place] [address] [place] Differential cell count method Nom (Bld) Auto Normal [facility] Comment on above: Order Comment: Speci men Type: BLOOD SPECIMENOrdering Facility: [facility] Address: [address] [place] [address] Performed By: #### 4 537-7, 32835-3 ####[facility] LABCLIA [id number] [place] [address] [place] Eosinophils (Bld) [#/Vol] 0.08 10*3/uL Normal <0.46 [facility] Comment on above: Order Comment: Speci men Type: BLOOD SPECIMENOrdering Facility: [facility] Address: [address] [place] [address] Performed By: #### 4 537-7, 68518-9 ####[facility] LABCLIA [id number] [place] [address] [place] Eosinophils/100 WBC (Bld) 1.3 % Normal [facility] Comment on above: Order Comment: Speci men Type: BLOOD SPECIMENOrdering Facility: [facility] Address: [address] [place] [address] Performed By: #### 4 537-7, 06506-4 ####[facility] LABIA [id number] [place] [address] [place] Erythrocyte distribution width (RBC) [Ratio] 12.3 % Normal 11.5-15.0 [facility] Comment on above: Order Comment: Speci men Type: BLOOD SPECIMENOrdering Facility: [facility] Address: [address] [place] [address] Performed By: #### 4 537-7, 42313-2 ####[facility] LABIA [id number] [place] [address] [place] Hematocrit (Bld) [Volume fraction] 42.1 % Normal 36.0-46.0 [facility] Comment on above: Order Comment: Speci men Type: BLOOD SPECIMENOrdering Facility: [facility] Address: [address] [place] [address] Performed By: #### 4 537-7, 80572-6 ####[facility] LABCLIA [id number] [place] [address] [place] Hemoglobin (Bld) [Mass/Vol] 14.2 g/dL Normal 11.5-15.5 [facility] Comment on above: Order Comment: Speci men Type: BLOOD SPECIMENOrdering Facility: [facility] Address: [address] [place] [address] Performed By: #### 4 537-7, 44067-6 ####[facility] LABCLIA [id number] [place] [address] [place] Immature granulocytes (Bld) [#/Vol] 10*3/uL Normal <0.10 [facility] Comment on above: Order Comment: Speci men Type: BLOOD SPECIMENOrdering Facility: [facility] Address: [address] [place] [address] Performed By: #### 4 537-7, 51810-9 ####[facility] LABCLIA [id number] [place] [address] [place] Immature granulocytes/100 WBC (Bld) 0.2 % Normal [facility] Comment on above: Order Comment: Speci men Type: BLOOD SPECIMENOrdering Facility: [facility] Address: [address] [place] [address] Performed By: #### 4 537-7, 24550-7 ####[facility] LABCLIA [id number] [place] [id number] [place] Lymphocytes (Bld) [#/Vol] 2.11 10*3/uL Normal 1.00-4.00 [facility] Comment on above: Order Comment: Speci men Type: BLOOD SPECIMENOrdering Facility: [facility] Address: [address] [place] [address] Performed By: #### 4 537-7, 64906-4 ####[facility] LABCLIA [id number] [place] [address] [place] Lymphocytes/100 WBC (Bld) 34.1 % Normal [facility] Comment on above: Order Comment: Speci men Type: BLOOD SPECIMENOrdering Facility: [facility] Address: [address] [place] [address] Performed By: #### 4 537-7, 55191-6 ####[facility] LABCLIA [id number] [place] [address] [place] MCH (RBC) [Entitic mass] 31.2 pg Normal 26.0-34.0 [facility] Comment on above: Order Comment: Speci men Type: BLOOD SPECIMENOrdering Facility: [facility] Address: [address] [place] [address] Performed By: #### 4 537-7, 03853-3 ####[facility] LABCLIA [id number] [place] [address] [place] MCHC (RBC) [Mass/Vol] 33.7 g/dL Normal 30.5-36.0 [facility] Comment on above: Order Comment: Speci men Type: BLOOD SPECIMENOrdering Facility: [facility] Address: [address] [place] [address] Performed By: #### 4 537-7, 93360-2 ####[facility] LABCLIA [id number] [place] [address] [place] MCV (RBC) [Entitic vol] 92.5 fL Normal 80.0-100.0 [facility] Comment on above: Order Comment: Speci men Type: BLOOD SPECIMENOrdering Facility: [facility] Address: [address] [place] [address] Performed By: #### 4 537-7, 37512-4 ####[facility] LABCLIA [id number] [place] [address] [place] Monocytes (Bld) [#/Vol] 0.52 10*3/uL Normal <0.87 [facility] Comment on above: Order Comment: Speci men Type: BLOOD SPECIMENOrdering Facility: [facility] Address: [address] [place] [address] Performed By: #### 4 537-7, 57894-3 ####[facility] LABCLIA [id number] [place] [address] [place] Monocytes/100 WBC (Bld) 8.4 % Normal [facility] Comment on above: Order Comment: Speci men Type: BLOOD SPECIMENOrdering Facility: [facility] Address: [address] [place] [address] Performed By: #### 4 537-7, 81984-8 ####[facility] LABCLIA [id number] [place] [address] [place] Neutrophils (Bld) [#/Vol] 3.41 10*3/uL Normal 1.45-7.50 [facility] Comment on above: Order Comment: Speci men Type: BLOOD SPECIMENOrdering Facility: [facility] Address: [address] [place] [address] Performed By: #### 4 537-7, 24910-6 ####[facility] LABCLIA [id number] [place] [address] [place] Neutrophils/100 WBC (Bld) 55.0 % Normal [facility] Comment on above: Order Comment: Speci men Type: BLOOD SPECIMENOrdering Facility: [facility] Address: [address] [place] [address] Performed By: #### 4 537-7, 81289-0 ####[facility] LABCLIA [id number] [place] [address] [place] Nucleated RBC (Bld) [#/Vol] 10*3/uL Normal <0.01 [facility] Comment on above: Order Comment: Speci men Type: BLOOD SPECIMENOrdering Facility: [facility] Address: [address] [place] [address] Performed By: #### 4 537-7, 06220-7 ####[facility] LABIA [id number] [place] [address] [place] Nucleated RBC/100 WBC (Bld) [Ratio] 0.0 /100 WBC Normal [facility] Comment on above: Order Comment: Speci men Type: BLOOD SPECIMENOrdering Facility: [facility] Address: [address] [place] [address] Performed By: #### 4 537-7, 85457-5 ####[facility] LABIA [id number] [place] [address] [place] Platelet mean volume (Bld) [Entitic vol] 10.7 fL Normal 9.0-12.7 [facility] Comment on above: Order Comment: Speci men Type: BLOOD SPECIMENOrdering Facility: [facility] Address: [address] [place] [address] Performed By: #### 4 537-7, 85027-6 ####[facility] LABIA [id number] [place] [address] [place] Platelets (Bld) [#/Vol] 428 10*3/uL High 150-400 [facility] Comment on above: Order Comment: Speci men Type: BLOOD SPECIMENOrdering Facility: [facility] Address: [address] [place] [address] Performed By: #### 4 537-7, 00204-9 ####[facility] LABIA [id number] [place] [address] [place] RBC (Bld) [#/Vol] 4.55 10*6/uL Normal 3.90-5.20 [facility] Comment on above: Order Comment: Speci men Type: BLOOD SPECIMENOrdering Facility: [facility] Address: [address] [place] [address] Performed By: #### 4 537-7, 63949-3 ####[facility] LABCLIA [id number] [place] [address] [place] WBC (Bld) [#/Vol] 6.19 10*3/uL Normal 3.70-11.00 [facility] Comment on above: Order Comment: Speci men Type: BLOOD SPECIMENOrdering Facility: [facility] Address: [address] [place] [address] Performed By: #### 4 537-7, 99871-7 ####[facility] LABIA [id number] [place] [address] [place] CRP [facility] CRP [Mass/Vol] mg/L Normal <0.9 [facility] Comment on above: Order Comment: Speci men Type: BLOOD SPECIMENOrdering Facility: [facility] Address: [address] [place] [address] Performed By: #### 1 988-5, 1920-8 ####[facility] [id number] [place] [address] [place] ESR Westergren method (Bld) [Velocity]on 02-09-2024 ESR (Bld) [Velocity] 2 mm/h Normal 0-20 [facility] Comment on above: Order Comment: Speci men Type: BLOOD SPECIMENOrdering Facility: [facility] Address: [address] [place] [address] Performed By: #### 4 537-7, 17785-2 ####[facility] LABIA [id number] [place] [address] [place] T3Free SerPl-mCncon 02-09-20 24 Free T3 [Mass/Vol] 3.6 pg/mL Normal 2.3-4.1 [facility] Comment on above: Order Comment: Speci men Type: BLOOD SPECIMENOrdering Facility: [facility] Address: [address] [place] [address], [place] [address] Performed By: #### 2 4321-2, 3024-7, 3051-0, 1742-6 ####[facility] LABCLIA [id number] [address] [address] [place] T4 Free SerPl-mCncon 27-2 024 Free T4 [Mass/Vol] 1.1 ng/dL Normal 0.9-1.7 [facility] Comment on above: Order Comment: Speci men Type: BLOOD SPECIMENOrdering Facility: [facility] Address: [address] [place] [address] Performed By: #### 2 4321-2, 3024-7, 3051-0, 1742-6 ####[facility] LABCLIA [id number] [place] [id number] [place] XR Shoulder - left 2 Viewson 10-16-2023 IMPRESSION: 1. No acute radiographic abnormality of the left shoulder Auto Fleet Manager: REUBEN Transcribe Date/Time: Oct 16 2023 2:20P Dictated by : ELIAS ARNOLD MD This examination was interpreted and the report reviewed and electronically signed by: ELIAS ARNOLD MD on Oct 16 2023 2:21PM [facility] DIVISION OF RADIOLOGY * * [...] within normal limits. DIVISION OF RADIOLOGY Provider, [facility] [place] - 10/16/2023 * * *Final Report* * [...] acute radiographic abnormality of the left shoulder Auto Fleet Manager: PSCB Transcribe Date/Time: Oct 16 2023 2:20P Dictated by : ELIAS ARNOLD MD This examination was interpreted and the report reviewed and electronically signed by: ELIAS ARNOLD MD on Oct 16 2023 2:21PM EST [facility] XR Shoulder - left 2 ViewsOr dered By: Ccf Provider on 10-16-2023 [facility] XR Shoulder - left 2 Viewson 10-14-2023 Radiology Study observation (narrative) [facility] PELVIC US WHIon 07-25-2023 [facility] No Panel Informationon 06-06 [facility] ALLIED HEALTHon 05-19-2023 ALLIED HEALTH HNO ID: [id number] Author: Jose Herrera Tech Service: ? Author [...] Fuchs May 19, 2023 1:12 AM Normal [facility] CBC panel Auto (Bld)on 05-19 Erythrocyte distribution width (RBC) [Ratio] 12.2 % Normal 11.5-15.0 [facility] Comment on above: Order Comment: Speci men Type: BLOOD SPECIMENOrdering Facility: [facility] Address: [address] [place] [address] Performed By: #### 5 8410-2 ####[facility]ORYCL[facility] [id number] [address] [place] [address] [place] Hematocrit (Bld) [Volume fraction] 41.1 % Normal 36.0-46.0 [facility] Comment on above: Order Comment: Speci men Type: BLOOD SPECIMENOrdering Facility: [facility] Address: [address] [place] [address] Performed By: #### 5 8410-2 ####[facility]ORATORYCLIA [id number] [place] [id number] [facility] [place] Hemoglobin (Bld) [Mass/Vol] 13.5 g/dL Normal 11.5-15.5 [facility] Comment on above: Order Comment: Speci men Type: BLOOD SPECIMENOrdering Facility: [facility] Address: [address] [place] [address] Performed By: #### 5 8410-2 ####[facility]ORATORYCLIA [id number] [place] [id number] [place] MCH (RBC) [Entitic mass] 31.1 pg Normal 26.0-34.0 [facility] Comment on above: Order Comment: Speci men Type: BLOOD SPECIMENOrdering Facility: [facility] Address: [address] [place] [address] Performed By: #### 5 8410-2 ####[facility]ORATORYCLIA [id number] [place] [id number] [place] MCHC (RBC) [Mass/Vol] 32.8 g/dL Normal 30.5-36.0 [facility] Comment on above: Order Comment: Speci men Type: BLOOD SPECIMENOrdering Facility: [facility] Address: [address] [place] [address] Performed By: #### 5 8410-2 ####[facility]ORATORYCLIA [id number] [address] [place], [place] [address] [place] MCV (RBC) [Entitic vol] 94.7 fL Normal 80.0-100.0 [facility] Comment on above: Order Comment: Speci men Type: BLOOD SPECIMENOrdering Facility: [facility] Address: [address] [place] [address] Performed By: #### 5 8410-2 ####[facility]ORATORYCLIA [id number] [address] [place] [address] [place] Nucleated RBC (Bld) [#/Vol] 10*3/uL Normal <0.01 [facility] Comment on above: Order Comment: Speci men Type: BLOOD SPECIMENOrdering Facility: [facility] Address: [address] [place] [address] Performed By: #### 5 8410-2 ####[facility]ORATORYCLIA [id number] [address] [place] [address] [place] Platelet mean volume (Bld) [Entitic vol] 9.9 fL Normal 9.0-12.7 [facility] Comment on above: Order Comment: Speci men Type: BLOOD SPECIMENOrdering Facility: [facility] Address: [address] [place] [address] Performed By: #### 5 8410-2 ####[facility] LABORATORYCLIA [id number] [place] [address] [place] Platelets (Bld) [#/Vol] 510 10*3/uL High 150-400 [facility] Comment on above: Order Comment: Speci men Type: BLOOD SPECIMENOrdering Facility: [facility] Address: [address] [place] [address] Performed By: #### 5 8410-2 ####[facility]ORATORYCLIA [id number] [address] [place], [place] [address] [place] RBC (Bld) [#/Vol] 4.34 10*6/uL Normal 3.90-5.20 [facility] Comment on above: Order Comment: Speci men Type: BLOOD SPECIMENOrdering Facility: [facility] Address: [place] [address] Performed By: #### 5 8410-2 ####[facility]ORATORYCLIA [id number] [place] [id number] [place] WBC (Bld) [#/Vol] 12.65 10*3/uL High 3.70-11.00 [facility] Comment on above: Order Comment: Speci men Type: BLOOD SPECIMENOrdering Facility: [facility] Address: [place] [address] Performed By: #### 5 8410-2 ####[facility] LABORATORYCLIA [id number] [place] [id number] [place] Comprehensive metabolic 2000 panelon 05-19-2023 Albumin [Mass/Vol] 4.1 g/dL Normal 3.9-4.9 [facility] Comment on above: Order Comment: Speci men Type: BLOOD SPECIMENOrdering Facility: [facility] Address: [address] [place] [address] Performed By: #### 3 016-3, 39457-3, , [id number] ####[facility]ORATORYCLIA [id number] [place] [id number] [place] ALP [Catalytic activity/Vol] 104 U/L Normal 34-123 [facility] Comment on above: Order Comment: Speci men Type: BLOOD SPECIMENOrdering Facility: [facility] Address: [address] [place] [address] Performed By: #### 3 016-3, 31764-4, , [id number] ####[facility] LABORATORYCLIA [id number] [place] [id number] [place] ALT [Catalytic activity/Vol] 22 U/L Normal 7-38 [facility] Comment on above: Order Comment: Speci men Type: BLOOD SPECIMENOrdering Facility: [facility] Address: [address] [place], [place] [address], [place] [address] Performed By: #### 3 016-3, 65939-9, 77850-1, [id number] ####[facility] LABORATORYCLIA [id number] [place] [id number] [place] Anion gap [Moles/Vol] 12 mmol/L Normal 9-18 [facility] Comment on above: Order Comment: Speci men Type: BLOOD SPECIMENOrdering Facility: [facility] Address: [address] [place] [address] Performed By: #### 3 016-3, 38539-8, , [id number] ####[facility] LABORATORYCLIA [id number] [place] [id number] [place] AST [Catalytic activity/Vol] 19 U/L Normal 13-35 [facility] Comment on above: Order Comment: Speci men Type: BLOOD SPECIMENOrdering Facility: [facility] Address: [address] [place] [address] Performed By: #### 3 016-3, 98596-2, , [id number] ####[facility]ORATORYCLIA [id number] [place] [id number] [place] Bilirubin [Mass/Vol] mg/dL Low 0.2-1.3 [facility] Comment on above: Order Comment: Speci men Type: BLOOD SPECIMENOrdering Facility: [facility] Address: [place] [address] Performed By: #### 3 016-3, 27990-4, 50379-6, [id number] ####[facility]ORATORYCLIA [id number] [place] [id number] [place] Calcium [Mass/Vol] 9.2 mg/dL Normal 8.5-10.2 [facility] Comment on above: Order Comment: Speci men Type: BLOOD SPECIMENOrdering Facility: [facility] Address: [address] [place] [address] Performed By: #### 3 016-3, 95068-4, 25215-2, [id number] ####[facility] LABORATORYCLIA [id number] [place] [id number] [place] Chloride [Moles/Vol] 106 mmol/L High 97-105 [facility] Comment on above: Order Comment: Speci men Type: BLOOD SPECIMENOrdering Facility: [facility] Address: [address] [place] [address] Performed By: #### 3 016-3, 99411-6, 43270-7, [id number] ####[facility] LABORATORYCLIA [id number] [place] [id number] [place] CO2 [Moles/Vol] 21 mmol/L Low 22-30 [facility] Comment on above: Order Comment: Speci men Type: BLOOD SPECIMENOrdering Facility: [facility] Address: [address] [place] [address] Performed By: #### 3 016-3, 09461-6, 70265-5, [id number] ####[facility] LABORATORYCLIA [id number] [place] [id number] [place] Creatinine [Mass/Vol] 0.50 mg/dL Low 0.58-0.96 [facility] Comment on above: Order Comment: Speci men Type: BLOOD SPECIMENOrdering Facility: [facility] Address: [address] [place] [address] Performed By: #### 3 016-3, 33752-8, 06787-4, [id number] ####[facility] LABORATORYCLIA [id number] [place] [id number] [place] Creatinine and Glomerular filtration rate.predicted panel (S/P/Bld) 130 mL/min/1.73m??? Normal >=60 [facility] Comment on above: Order Comment: Speci men Type: BLOOD SPECIMENOrdering Facility: [facility] Address: [address] [place] [address] Result Comment: Imelda mated Glomerular Filtration Rate [...] actual GFR. Performed By: #### 3 016-3, 81333-6, , [id number] ####[facility] LABORATORYCLIA [id number] [place] [id number] [place] Glucose [Mass/Vol] 135 mg/dL High 74-99 [facility] Comment on above: Order Comment: Krystyna armstrong Type: BLOOD SPECIMENOrdering Facility: [facility] Address: [address] [place] [address] Result Comment: The [place] Diabetes Association (ADA) provides guidance for cutoff [...] Standards of Medical Care in Diabetes 2016, [place] [employer] Association. Diabetes Care. 2016.39(Suppl 1). Performed By: #### 3 016-3, 95712-8, , [id number] ####[facility] LABORATORYCLIA [id number] [place] [id number] [place] Potassium [Moles/Vol] 3.9 mmol/L Normal 3.7-5.1 [facility] Comment on above: Order Comment: Krystyna armstrong Type: BLOOD SPECIMENOrdering Facility: [facility] Address: [address] [place] [address] Performed By: #### 3 016-3, 82986-3, , [id number] ####[facility] LABORATORYCLIA [id number] [place] [id number] [place] Protein [Mass/Vol] 7.2 g/dL Normal 6.3-8.0 [facility] Comment on above: Order Comment: Speci men Type: BLOOD SPECIMENOrdering Facility: [facility] Address: [address] [place] [address] Performed By: #### 3 016-3, 85391-5, 47225-5, [id number] ####[facility] LABORATORYCLIA [id number] [place] [address] [place] Sodium [Moles/Vol] 139 mmol/L Normal 136-144 [facility] Comment on above: Order Comment: Speci men Type: BLOOD SPECIMENOrdering Facility: [facility] Address: [address] [place] [address] Performed By: #### 3 016-3, 40531-3, 21392-2, [id number] ####[facility] LABORATORYCLIA [id number] [address] [place] Urea nitrogen [Mass/Vol] 10 mg/dL Normal 7-21 [facility] Comment on above: Order Comment: Speci men Type: BLOOD SPECIMENOrdering Facility: [facility] Address: [address] [place] [address] Performed By: #### 3 016-3, 31078-0, 20492-8, [id number] ####[facility] LABORATORYCLIA [id number] [place] [address] [place] D dimer FEU PPP-mCncon 05-19 Fibrin D-dimer FEU (PPP) [Mass/Vol] 240 ng/mL FEU Normal <500 [facility] Comment on above: Order Comment: Speci men Type: BLOOD SPECIMEN [facility] Address: [address] [place] [address] Performed By: #### 4 8065-7 #### [facility] CLIA [id number] [place] [address] [place] ECG COMPLETEon 05-19-2023 ECG COMPLETE Ventricular Rate : 1 40 BPM Atrial Rate : 140 BPM P-R Interval : 141 ms QRS Duration : 72 ms Q-T Interval : 292 ms QTC Calculation(Bazett) : 446 ms Calculated P [place] : 48 degrees Calculated R [place] : 75 degrees Calculated T [place] : -23 degrees Sinus tachycardia Low voltage, precordial leads Nonspecific T abnormalities, diffuse leads Abnormal ECG NO STEMI. 2354 Confirmed by DO PICKETT NICHOLAS ([id number]), editorial writer MAURA NGUYEN ([id number]) on 05/19/2023 1:20:46 PM NAME : LILIAM THOMPSON PID : [id number] : 1990 Gender : Female Race : ORD : [id number] Procedure Date : May 18 2023 23:52:49 Edit Date : May 19 2023 13:20:47 Diagnosis: Sinus tachycardia Low voltage, precordial leads Nonspecific T abnormalities, diffuse leads Abnormal ECG NO STEMI. 2354 Confirmed by DO PICKETT NICHOLAS ([id number]), editorial writer MAURA NGUYEN ([id number]) on 05/19/2023 1:20:46 PM Test Reason : Palpitations Location : 502 : ED IT3 Overread By : DO PICKETT NICHOLAS Edited By : MAURA NGUYEN Referred By : , Acquired by : BY, [facility] ED NOTEon 05-19-2023 ED NOTE HNO ID: [id number] Author: Beena Camara, CASSANDRA Service: ? Author Type: Registered Nurse Type: ED Notes Filed: 05/19/2023 4:15 AM Note Text: Discharge paperwork gone over with patient. Iv discontinued. [facility] ED NOTE HNO ID: [id number] Author: Catherine Hitchcock CT Service: ? Author Type: Clinical Aircraft Riveter Type: ED Notes Filed: 05/18/2023 11:45 PM Note Text: Pt to ED for palpitations that started around 2200 tonight. Pt states she had one cocktail and when she got home pt states I got nauseous, felt like I was going to pass out and my left hand and left foot felt numb. [facility] ED PROV NOTEon 05-19-2023 ED PROV NOTE HNO ID: [id number] Author: Jonathan Pickett DO Service: Emergency Medicine [...] abdominal pain Fibromyalgia Dr. 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 Kelly @[facility] Migraine with aura visual aura; diagnosed with [...] arrhythmia Snoring Suicide attempt by acetaminophen overdose ([facility]) 06/2014 Syncope Vomiting PAST SURGICAL HISTORY Procedure [...] for light-headedness and numbness. Negative for syncope. Psychiatric/Behavioral : The patient is nervous/anxious. All other systems [...] note r (more content not included)... Normal [facility] EKGon 05-19-2023 Electrocardiogram Ventricular Rate : 9 2 BPM Atrial Rate : 92 BPM P-R Interval : 144 ms QRS Duration : 72 ms Q-T Interval : 332 ms QTC Calculation(Bazett) : 411 ms Calculated P [place] : 24 degrees Calculated R [place] : 38 degrees Calculated T [place] : -9 degrees Sinus rhythm Borderline Q waves in inferior leads Inferior infarct, age indeterminate Abnormal ECG NO STEMI. 0326 Confirmed by DO PICKETT NICHOLAS ([id number]), editorial writer MAURA NGUYEN ([id number]) on 05/19/2023 1:21:17 PM NAME : LILIAM THOMPSON PID : [id number] : 1990 Gender : Female Race : ORD : Procedure Date : May 19 2023 03:19:50 Edit Date : May 19 2023 13:21:19 Diagnosis: Sinus rhythm Borderline Q waves in inferior leads Inferior infarct, age indeterminate Abnormal ECG NO STEMI. 0326 Confirmed by DO PICKETT NICHOLAS ([id number]), editorial writer MAURA NGUYEN ([id number]) on 05/19/2023 1:21:17 PM Test Reason : Location : 502 : [facility] 14 Overread By : DO PICKETT NICHOLAS Edited By : MAURA NGUYEN Referred By : , Acquired by : BY, Normal [facility] HCG QUAL BLDon 05-19-2023 HCG, QUALITATIVE Negative Normal Negative [facility] Comment on above: Order Comment: Krystyna armstrong Type: BLOOD SPECIMEN [facility] Address: [address] [place] [address] Performed By: #### H #### [facility] CLIA [id number] [address] [place] [address] [place] HIGH SENSITIVITY TROPONIN T (INITIAL)on 05-19-2023 Troponin T.cardiac High sensitivity method [Mass/Vol] <6 Normal <12 [facility] Comment on above: Order Comment: Krystyna armstrong Type: BLOOD SPECIMENOrdering Facility: [facility] Address: [address] [place] [address] Result Comment: When assessing risk for acute [...] day MACE. Performed By: #### 3 016-3, 03757-4, 37279-3, [id number] ####[facility] LABORATORYCLIA [id number] [place] [id number] [place] HIGH SENSITIVITY TROPONIN T (SECOND)on 05-19-2023 Troponin T.cardiac High sensitivity method [Mass/Vol] <6 Normal <12 [facility] Comment on above: Order Comment: Speci men Type: BLOOD SPECIMEN [facility] Address: [address] [place] [address] Result Comment: When assessing risk for acute [...] 30 day MACE. Performed By: #### L [id number] #### [facility] CLIA [id number] [address] [place], [place] [address] [place] Magnesium SerPl-mCncon 05-19 Magnesium [Mass/Vol] 1.8 mg/dL Normal 1.7-2.3 [facility] Comment on above: Order Comment: Speci men Type: BLOOD SPECIMENOrdering Facility: [facility] Address: [address] [place] [address] Performed By: #### 3 016-3, 63120-3, , [id number] ####[facility] LABORATORYCLIA [id number] [place] [id number] [place] TOX SCREEN ROUT URon 023 Amphetamines Confirm (U) [Mass/Vol] Negative Normal Negative [facility] Comment on above: Order Comment: Speci men Type: URINE SPECIMEN [facility] Address: [address] [place] [address] Result Comment: Cuto ff threshold at 1000 ng/mL. Performed By: #### U TOX2 #### [facility] CLIA [id number] [address] [place] [address] [place] BARBITURATES, URINE Negative Normal Negative [facility] Comment on above: Order Comment: Speci men Type: URINE SPECIMEN [facility] Address: [address] [place] [address] Result Comment: Cuto ff threshold at 200 ng/mL. Performed By: #### U TOX2 #### [facility] CLIA [id number] [address] [place] [address] [place] BENZODIAZEPINES, UR Negative Normal Negative [facility] Comment on above: Order Comment: Speci men Type: URINE SPECIMEN [facility] Address: [address] [place] [address] Result Comment: Cuto ff threshold at 200 ng/mL. Performed By: #### U TOX2 #### [facility] CLIA [id number] [address] [place] [address] [place] Cannabinoids Screen Ql (U) Negative Normal Negative [facility] Comment on above: Order Comment: Speci men Type: URINE SPECIMEN [facility] Address: [address] [place] [address] Result Comment: Cuto ff threshold at 50 ng/mL. Performed By: #### U TOX2 #### [facility] CLIA [id number] [address] [place] [address] [place] Cocaine Ql (U) Negative Normal Negative [facility] Comment on above: Order Comment: Speci men Type: URINE SPECIMEN [facility] Address: [address] [place] [address] Result Comment: Cuto ff threshold at 300 ng/mL. Performed By: #### U TOX2 #### [facility] CLIA [id number] [address] [place] [address] [place] Ethanol (U) [Mass/Vol] <11 Normal <11 [facility] Comment on above: Order Comment: Speci men Type: URINE SPECIMEN [facility] Address: [address] [place] [address] Performed By: #### U TOX2 #### [facility] CLIA [id number] [address] [place] [address] [place] Opiates Screen Ql (U) Negative Normal Negative [facility] Comment on above: Order Comment: Speci men Type: URINE SPECIMEN [facility] Address: [address] [place] [address] Result Comment: Cuto ff threshold at 300 ng/mL. Performed By: #### U TOX2 #### [facility] CLIA [id number] [address] [place] [address] [place] oxyCODONE cutoff Screen (U) [Mass/Vol] Negative Normal Negative [facility] Comment on above: Order Comment: Speci men Type: URINE SPECIMEN [facility] Address: [address] [place] [address] Result Comment: Cuto ff threshold at 100 ng/mL. Performed By: #### U TOX2 #### [facility] CLIA [id number] [address] [place] [address] [place] Phencyclidine Ql (U) Negative Normal Negative [facility] Comment on above: Order Comment: Speci men Type: URINE SPECIMEN [facility] Address: [address] [place] [address] Result Comment: Cuto ff threshold at 25 ng/mL. Performed By: #### U TOX2 #### [facility] CLIA [id number] [address] [place] [address] [place] TSH SerPl-aCncon 05-19-2023 TSH Qn 5.640 m[IU]/L High 0.270-4.200 [facility] Comment on above: Order Comment: Speci men Type: BLOOD SPECIMENOrdering Facility: [facility] Address: [address] [place] [address] Result Comment: If t he patient is , TSH reference range varies by gestational period: First Trimester (weeks 9-12): 0.180-2.990 mIU/L Second Trimester: 0.110-3.980 mIU/L Third Trimester: 0.480-4.710 mIU/L Mark Cheng et al. A Practical Approach for the Verifications and Determination of Site- and Trimester-Specific Reference Intervals for Thyroid Function tests in . Thyroid, 2019:29:3:412-420. Rickey E, et al. 2017 Guidelines of the [place] Thyroid Association for the Diagnosis and Management of Thyroid Disease during and the . Thyroid, 2017:27:3:315-389. Performed By: #### 3 016-3, 75276-3, 53621-4, [id number] ####[facility] LABORATORYCLIA [id number] [address] [place] [address] Urinalysis complete panel (U )on 05-19-2023 Bacteria LM.HPF (Urine sed) [#/Area] Moderate Abnormal None Seen [facility] Comment on above: Order Comment: Speci men Type: URINE SPECIMEN [facility] Address: [address] [place] [address] Performed By: #### 2 4356-8 #### [facility] CLIA [id number] [address] [place] [address] Bilirubin Ql (U) Negative Normal Negative [facility] Comment on above: Order Comment: Speci men Type: URINE SPECIMEN [facility] Address: [address] [place] [address] Performed By: #### 2 4356-8 #### [facility] CLIA [id number] [address] [place] [address] Clarity (Unsp spec) Clear Normal Clear [facility] Comment on above: Order Comment: Speci men Type: URINE SPECIMEN [facility] Address: [address] [place] [address] Performed By: #### 2 4356-8 #### [facility] CLIA [id number] [address] [place] [address] Color (U) Yellow Normal Yellow [facility] Comment on above: Order Comment: Speci men Type: URINE SPECIMEN [facility] Address: [address] [place] [address] Performed By: #### 2 4356-8 #### [facility] CLIA [id number] [address] [place] [address] [place] Epithelial cells LM.HPF (Urine sed) [#/Area] Few Normal [facility] Comment on above: Order Comment: Speci men Type: URINE SPECIMEN [facility] Address: [address] [place] [address] Performed By: #### 2 4356-8 #### [facility] CLIA [id number] [address] [place] [address] [place] Glucose Test strip (U) [Mass/Vol] Negative Normal Negative [facility] Comment on above: Order Comment: Speci men Type: URINE SPECIMEN [facility] Address: [address] [place] [address] Performed By: #### 2 4356-8 #### [facility] CLIA [id number] [address] [place] [address] [place] Hemoglobin Ql (U) Negative Normal Negative [facility] Comment on above: Order Comment: Speci men Type: URINE SPECIMEN [facility] Address: [address] [place] [address] Performed By: #### 2 4356-8 #### [facility] CLIA [id number] [address] [place] [address] [place] Ketones Ql (U) Negative Normal Negative [facility] Comment on above: Order Comment: Speci men Type: URINE SPECIMEN [facility] Address: [address] [place] [address] Performed By: #### 2 4356-8 #### [facility] CLIA [id number] [address] [place] [address] [place] Leukocyte esterase Test strip Ql (U) Negative Normal Negative [facility] Comment on above: Order Comment: Speci men Type: URINE SPECIMEN [facility] Address: [address] [place] [address] Performed By: #### 2 4356-8 #### [facility] CLIA [id number] [address] [place] [address] [place] Nitrite Ql (U) Negative Normal Negative [facility] Comment on above: Order Comment: Speci men Type: URINE SPECIMEN [facility] Address: [address] [place] [address] Performed By: #### 2 4356-8 #### [facility] CLIA [id number] [address] [place] [address] [place] [facility] pH (U) 6.0 [pH] Normal 5.0-8.0 [facility] Comment on above: Order Comment: Speci men Type: URINE SPECIMEN [facility] Address: [address] [place] [address] Performed By: #### 2 4356-8 #### [facility] [place] [id number] [address] [place] [address] [place] Protein (U) [Mass/Vol] Negative Normal Negative [facility] Comment on above: Order Comment: Speci men Type: URINE SPECIMEN [facility] Address: [address] [place] [address] Performed By: #### 2 4356-8 #### [facility] [place] [id number] [address] [place] [address] [place] RBC LM.HPF (Urine sed) [#/Area] 0-3 /HPF Normal 0-3 /HPF [facility] Comment on above: Order Comment: Speci men Type: URINE SPECIMEN [facility] Address: [address] [place] [address] Performed By: #### 2 4356-8 #### [facility] [place] [id number] [address] [place] [address] [place] Specific gravity (U) [Rel density] <=1.005 Low 1.005-1.030 [facility] Comment on above: Order Comment: Speci men Type: URINE SPECIMEN [facility] Address: [address] [place] [address] Performed By: #### 2 4356-8 #### [facility] [place] [id number] [address] [place] [address] [place] Urobilinogen Ql (U) 0.2 EU/dL Normal 0.2-1.0 EU/dL [facility] Comment on above: Order Comment: Speci men Type: URINE SPECIMEN [facility] Address: [place] [address] Performed By: #### 2 4356-8 #### [facility] [place] [id number] [address] [place] [address] WBC LM.HPF (Urine sed) [#/Area] 0-5 /HPF Normal 0-5 /HPF [facility] Comment on above: Order Comment: Speci men Type: URINE SPECIMEN [facility] Address: [address] [place] [address] Performed By: #### 2 4356-8 #### [id number] [address] [place], [place] [id number] [place] XR CHEST 2V FRONTAL/LATon [...] significant acute radiographic abnormality of the chest. [employer] Manager: PSCB Transcribe Date/Time: May 19 2023 1:53A Dictated by : SELMA RUDD MD This examination was interpreted and the report reviewed and electronically signed by: SELMA RUDD MD on May 19 2023 1:53AM EST [id number] Normal [facility] ALT SerPl-cCncon 03-25-2023 ALT [Catalytic activity/Vol] 23 U/L Normal 7-38 [facility] Comment on above: Order Comment: Speci men Type: BLOOD SPECIMEN [facility] Address: [address] [place] [id number] Performed By: #### 1 742-6, 8, 309-0, CRET1, 1987-12 #### [facility] CLIA [id number] [address] [place] [address] [place] AST SerPl-cCncon 03-25-2023 AST [Catalytic activity/Vol] 24 U/L Normal 13-35 [facility] Comment on above: Order Comment: Speci men Type: BLOOD SPECIMEN [facility] Address: [address] [place] [address] Performed By: #### 1 742-6, 1920-03, 309-0, CRET1, 1987-12 #### [facility] CLIA [id number] [address] [place] [address] [place] BUN SerPl-mCncon 03-25-2023 Urea nitrogen [Mass/Vol] 6 mg/dL Low 7-21 [facility] Comment on above: Order Comment: Speci men Type: BLOOD SPECIMEN [facility] Address: [address] [place] [address] Performed By: #### 1 742-6, 1920-03, 0, CRET1, 1987-12 #### [facility] CLIA [id number] [address] [place] [address] [place] CBC W Auto Differential pane l (Bld)on 03-25-2023 Basophils (Bld) [#/Vol] 0.04 10*3/uL Normal <0.11 [facility] Comment on above: Order Comment: Speci men Type: BLOOD SPECIMEN [facility] Address: [address] [place] [address] Performed By: #### 5 7021-8 #### [facility] CLIA [id number] [address] [place] [address] [place] Basophils/100 WBC (Bld) 0.5 % Normal [facility] Comment on above: Order Comment: Speci men Type: BLOOD SPECIMEN [facility] Address: [address] [place] [address] Performed By: #### 5 7021-8 #### [facility] CLIA [id number] [address] [place] [address] [place] Differential cell count method Nom (Bld) Auto Normal [facility] Comment on above: Order Comment: Speci men Type: BLOOD SPECIMEN [facility] Address: [address] [place] [address] Performed By: #### 5 7021-8 #### [facility] CLIA [id number] [address] [place] [address] [place] Eosinophils (Bld) [#/Vol] 0.12 10*3/uL Normal <0.46 [facility] Comment on above: Order Comment: Speci men Type: BLOOD SPECIMEN [facility] Address: [address] [place] [address] Performed By: #### 5 7021-8 #### [facility] CLIA [id number] [address] [place] [address] [place] Eosinophils/100 WBC (Bld) 1.6 % Normal [facility] Comment on above: Order Comment: Speci men Type: BLOOD SPECIMEN [facility] Address: [address] [place] [address] Performed By: #### 5 7021-8 #### [facility] CLIA [id number] [address] [place] [address] [place] Erythrocyte distribution width (RBC) [Ratio] 11.9 % Normal 11.5-15.0 [facility] Comment on above: Order Comment: Speci men Type: BLOOD SPECIMEN [facility] Address: [address] [place] [address] Performed By: #### 5 7021-8 #### [facility] CLIA [id number] [address] [place] [address] [place] Hematocrit (Bld) [Volume fraction] 40.9 % Normal 36.0-46.0 [facility] Comment on above: Order Comment: Speci men Type: BLOOD SPECIMEN [facility] Address: [address] [place] [address] Performed By: #### 5 7021-8 #### [facility] CLIA [id number] [address] [place] [address] [place] Hemoglobin (Bld) [Mass/Vol] 13.3 g/dL Normal 11.5-15.5 [facility] Comment on above: Order Comment: Speci men Type: BLOOD SPECIMEN [facility] Address: [address] [place] [address] Performed By: #### 5 7021-8 #### [facility] CLIA [id number] [address] [place] [address] [place] Immature granulocytes (Bld) [#/Vol] 10*3/uL Normal <0.10 [facility] Comment on above: Order Comment: Speci men Type: BLOOD SPECIMEN [facility] Address: [address] [place] [address] Performed By: #### 5 7021-8 #### [facility] CLIA [id number] [address] [place] [address] [place] Immature granulocytes/100 WBC (Bld) 0.3 % Normal [facility] Comment on above: Order Comment: Speci men Type: BLOOD SPECIMEN [facility] Address: [address] [place] [address] Performed By: #### 5 7021-8 #### [facility] CLIA [id number] [address] [place] [address] [place] Lymphocytes (Bld) [#/Vol] 2.91 10*3/uL Normal 1.00-4.00 [facility] Comment on above: Order Comment: Speci men Type: BLOOD SPECIMEN [facility] Address: [address] [place] [address] Performed By: #### 5 7021-8 #### [facility] CLIA [id number] [address] [place] [address] [place] Lymphocytes/100 WBC (Bld) 37.8 % Normal [facility] Comment on above: Order Comment: Speci men Type: BLOOD SPECIMEN [facility] Address: [address] [place] [address] Performed By: #### 5 7021-8 #### [facility] CLIA [id number] [address] [place] [address] [place] MCH (RBC) [Entitic mass] 30.9 pg Normal 26.0-34.0 [facility] Comment on above: Order Comment: Speci men Type: BLOOD SPECIMEN [facility] Address: [address] [place] [address] Performed By: #### 5 7021-8 #### [facility] CLIA [id number] [address] [place] [address] [place] MCHC (RBC) [Mass/Vol] 32.5 g/dL Normal 30.5-36.0 [facility] Comment on above: Order Comment: Speci men Type: BLOOD SPECIMEN [facility] Address: [address] [place] [address] Performed By: #### 5 7021-8 #### [facility] CLIA [id number] [address] [place] [address] [place] MCV (RBC) [Entitic vol] 94.9 fL Normal 80.0-100.0 [facility] Comment on above: Order Comment: Speci men Type: BLOOD SPECIMEN [facility] Address: [address] [place] [address] Performed By: #### 5 7021-8 #### [facility] CLIA [id number] [address] [place] [address] [place] Monocytes (Bld) [#/Vol] 0.71 10*3/uL Normal <0.87 [facility] Comment on above: Order Comment: Speci men Type: BLOOD SPECIMEN [facility] Address: [address] [place] [address] Performed By: #### 5 7021-8 #### [facility] CLIA [id number] [address] [place] [address] [place] Monocytes/100 WBC (Bld) 9.2 % Normal [facility] Comment on above: Order Comment: Speci men Type: BLOOD SPECIMEN [facility] Address: [address] [place] [address] Performed By: #### 5 7021-8 #### [facility] CLIA [id number] [address] [place] [address] [place] Neutrophils (Bld) [#/Vol] 3.89 10*3/uL Normal 1.45-7.50 [facility] Comment on above: Order Comment: Speci men Type: BLOOD SPECIMEN [facility] Address: [address] [place] [address] Performed By: #### 5 7021-8 #### [facility] CLIA [id number] [address] [place] [address] [place] Neutrophils/100 WBC (Bld) 50.6 % Normal [facility] Comment on above: Order Comment: Speci men Type: BLOOD SPECIMEN [facility] Address: [address] [place] [address] Performed By: #### 5 7021-8 #### [facility] CLIA [id number] [address] [place] [address] [place] Nucleated RBC (Bld) [#/Vol] 10*3/uL Normal <0.01 [facility] Comment on above: Order Comment: Speci men Type: BLOOD SPECIMEN [facility] Address: [address] [place] [address] Performed By: #### 5 7021-8 #### [facility] CLIA [id number] [address] [place] [address] [place] Nucleated RBC/100 WBC (Bld) [Ratio] 0.0 /100 WBC Normal [facility] Comment on above: Order Comment: Speci men Type: BLOOD SPECIMEN [facility] Address: [address] [place] [address], [place] [address] Performed By: #### 5 7021-8 #### [facility] CLIA [id number] [address] [place] [address] [place] Platelet mean volume (Bld) [Entitic vol] 9.7 fL Normal 9.0-12.7 [facility] Comment on above: Order Comment: Speci men Type: BLOOD SPECIMEN [facility] Address: [address] [place] [address] Performed By: #### 5 7021-8 #### [facility] CLIA [id number] [address] [place] [address] [place] Platelets (Bld) [#/Vol] 439 10*3/uL High 150-400 [facility] Comment on above: Order Comment: Speci men Type: BLOOD SPECIMEN [facility] Address: [address] [place] [address] Performed By: #### 5 7021-8 #### [facility] CLIA [id number] [address] [place] [address] [place] RBC (Bld) [#/Vol] 4.31 10*6/uL Normal 3.90-5.20 [facility] Comment on above: Order Comment: Speci men Type: BLOOD SPECIMEN [facility] Address: [address] [place] [place] [address] Performed By: #### 5 7021-8 #### [facility] CLIA [id number] [address] [place] [address] [place] WBC (Bld) [#/Vol] 7.69 10*3/uL Normal 3.70-11.00 [facility] Comment on above: Order Comment: Speci men Type: BLOOD SPECIMEN [facility] Address: [address] [place] [address] Performed By: #### 5 7021-8 #### [facility] CLIA [id number] [address] [place] [address] [place] CREATININE BLDon 03-25-2023 Creatinine [Mass/Vol] 0.73 mg/dL Normal 0.58-0.96 [facility] Comment on above: Order Comment: Krystyna armstrong Type: BLOOD SPECIMEN [facility] Address: [address] [place] [address] Performed By: #### 1 742-6, 8, 0, CRE1987-12 #### [facility] CLIA [id number] [address] [place] [address] [place] ESTIMATED GLOMERULAR FILTRATION RATE 114 mL/min/1.73m??? Normal >=60 [facility] Comment on above: Order Comment: Krystyna armstrong Type: BLOOD SPECIMEN [facility] Address: [address] [place] [address] Result Comment: Imelda mated Glomerular Filtration Rate [...] GFR. Performed By: #### 1 742-6, 1920-03, 0, CRE, 1987-12 #### [facility] CLIA [id number] [address] [place] [address] [place] CRP SerPl-mCncon 03-25-2023 CRP [Mass/Vol] mg/L Normal <0.9 [facility] Comment on above: Order Comment: Krystyna armstrong Type: BLOOD SPECIMEN [facility] Address: [address] [place] [address] Performed By: #### 1 742-6, 1920-03, 0, CRE1987-12 #### [facility] CLIA [id number] [address] [place] [address] [place] ESR Westergren method (Bld) [Velocity]on 03-25-2023 ESR (Bld) [Velocity] 6 mm/h Normal 0-20 [facility] Comment on above: Order Comment: Speci men Type: BLOOD SPECIMEN [facility] Address: [address] [place] [address] Performed By: #### 4 537-7 #### [facility] CLIA [id number] [address] [facility] [address] [place] [address] [place] BACTERIAL VAGINOSIS NAATon 0 - Lactobacillus crispatus+gasseri+talat senii + Gardnerella vaginalis + Atopobium vaginae rRNA JOSSIE+probe Ql (Vag fld) Negative Negative for bacterial vaginosis [facility] BARBARA/TRICHOMONAS NAATon 0 02-26-2023 C. glabrata RNA JOSSIE+probe Ql (Vag fld) Negative Negative for Barbara glabrata [facility] Barbara sp DNA JOSSIE+probe Ql (Vag fld) Negative Negative for Barbara species [facility] T. vaginalis DNA JOSSIE+probe Ql (Unsp spec) Negative Negative for Trichomonas vaginalis by amplification [facility] Reagin and Treponema pallidu m IgG and IgM [Interp]on 07-15-2022 Syphilis Interpretation Cannot exclude recent Treponemal infection if specimen collected within 7-10 days after appearance of suspect lesions or 2-3 weeks after an exposure. Clinical correlation is required. [facility] T. pallidum IgG+IgM IA Ql (S) Non-Reactive Nonreactive [facility] BACTERIAL VAGINOSIS AMPLIFIC ATIONon 07-14-2022 Lactobacillus crispatus+gasseri+talat senii + Gardnerella vaginalis + Atopobium vaginae rRNA JOSSIE+probe Ql (Vag fld) Negative Negative for bacterial vaginosis [facility] C. trachomatis+N. gonorrhoea e DNA JOSSIE+probe Ql (Unsp spec)on 07-14-2022 C. trachomatis DNA JOSSIE+probe Ql (Unsp spec) Negative Negative for Chlamydia trachomatis by amplificaton [facility] N. gonorrhoeae DNA JOSSIE+probe Ql (Unsp spec) Negative Negative for Neisseria gonorrhoeae by amplification [facility] BARBARA / TRICHOMONAS AMPLIF ICATIONon 07-14-2022 C. glabrata RNA JOSSIE+probe Ql (Vag fld) Negative Negative for Barbara glabrata [facility] Barbara albicans, C. dubliniensis, C. parapsilosis, and C. tropicalis RNA JOSSIE+probe Ql (Vag fld) Positive Abnormal Negative for Barbara species [facility] T. vaginalis DNA JOSSIE+probe Ql (Unsp spec) Negative Negative for Trichomonas vaginalis by amplification [facility] CT ABDOMEN/PELVIS WITH CONTR Seferino 06-28-2022 CT [...] or hydronephrosis. Incidental small left renal cyst. Retroperitoneal/Vascul ature: The abdominal aorta is normal in course and caliber. The main portal vein and principal branch vessels are patent. No retroperitoneal adenopathy is identified. Gastrointestinal/Mesen santana: The stomach and duodenal C-loop are unremarkable. [...] in the abdomen/pelvis. Appendix is normal. Normal [facility] CT Abdomen and Pelvis W cont [...] or hydronephrosis. Incidental small left renal cyst. Retroperitoneal/Vascul ature: The abdominal aorta is normal in course and caliber. The main portal vein and principal branch vessels are patent. No retroperitoneal adenopathy is identified. Gastrointestinal/Mesen santana: The stomach and duodenal C-loop are unremarkable. [...] or hydronephrosis. Incidental small left renal cyst. Retroperitoneal/Vascul ature: The abdominal aorta is normal in course and caliber. The main portal vein and principal branch vessels are patent. No retroperitoneal adenopathy is identified. Gastrointestinal/Mesen santana: The stomach and duodenal C-loop are unremarkable. [...] process in the abdomen/pelvis. Appendix is normal. [facility] Radiology Study observation (narrative) [facility] CT Abdomen and Pelvis W cont rast IVOrdered By: Isis Franz on 06-28-2022 [facility] Work Phone: HCG ( test) Ql (U)o n 06-28-2022 HCG.beta subunit [Moles/Vol] Negative [facility] POCT CBCOrdered By: Maryan quiles on 06-28-2022 HEMATOCRIT (HCT), MANUAL ENTER 43.2 % 32.5 - 49.4 % [facility] Hemoglobin (HGB), MANUAL ENTER 14.2 g/dL 10.9 - 16.7 g/dL [facility] Interpretation and review of laboratory results Abnormal [facility] LYMPHOCYTES %, MANUAL ENTER 34.3 % 14.7 - 45.9 % [facility] MEAN CELL VOLUME, MANUAL ENTER 94.3 fL 82.5 - 98.0 fL [facility] NEUTROPHILS %, MANUAL ENTER 59.5 % 46.4 - 74.9 % [facility] OTHERWBC %, MANUAL ENTER 6.2 % 3.2 - 16.9 % [facility] PLATELETS, MANUAL ENTER 477 10^3/uL Abnormal 148 - 382 10^3/uL [facility] RBC, MANUAL ENTER 4.58 10^6/uL 3.71 - 5.5 2 10^6/uL [facility] WBC, MANUAL ENTER 8.2 10^3/uL 3.9 - 10.4 10^3/uL [facility] POCT COMPREHENSIVE METABOLIC PANELon 06-28-2022 ALBUMIN, MANUAL ENTER 3.9 g/dL 3.3 - 5.5 g/dL [facility] ALKALINE PHOSPHATASE, MANUAL ENTER 76 U/L 42 - 141 U/L [facility] ALT, MANUAL ENTER 36 U/L 10 - 47 U/L [facility] AST, MANUAL ENTER 35 U/L 11 - 38 U/L [facility] Bilirubin, Total, MANUAL ENTER 0.4 mg/dL 0.2 - 1.6 mg/dL [facility] Blood Urea Nitrogen (BUN), MANUAL ENTER 11 mg/dL 7 - 22 mg[facility] CALCIUM (CA), MANUAL ENTER 9.3 mg/dL 8.0 - 10.3 mg/dL [facility] Carbon Diox(CO2), MANUAL ENTER 20 mmol/L 18 - 33 mmol/L [facility] Chloride (CL), MANUAL ENTER 111 mmol/L Abnormal 98 - 108 mmol/L [facility] CREATININE, SERUM, MANUAL ENTER 0.9 mg/dL 0.6 - 1.2 mg/dL [facility] GLUCOSE, MANUAL ENTER 101 mg/dL 73 - 118 mg/dL [facility] Interpretation and review of laboratory results Abnormal [facility] POTASSIUM (K+), MANUAL ENTER 4.1 mmol/L 3.6 - 5.1 mmol/L [facility] Protein, Total, Manual Enter 7.3 g/dL 6.4 - 8.1 g/dL [facility] SODIUM (NA), MANUAL ENTER 142 mmol/L 128 - 145 mmol/L [facility] POCT URINE DIPSTICK AUTOMATE DOrdered By: Francesca Johnson on 06-28-2022 Amorphous sediment LM Ql (Urine sed) [facility] Appearance (U) clear [facility] Bacteria LM Ql (Urine sed) [facility] Bilirubin Ql (U) Negative [facility] Casts LM.LPF (Urine sed) [#/Area] [facility] Color (U) yellow [facility] Crystals LM Nom (Urine sed) [facility] Epithelial cells.squamous LM.HPF (Urine sed) [#/Area] [facility] Flow cytometry specialist review Amrik (Unsp spec) [Interp] [facility] Glucose Auto test strip (U) [Mass/Vol] Negative mg/dL [facility] Ketones [Mass/Vol] Negative mg/dL [facility] Leukocyte esterase Qn (U) [facility] Leukocyte esterase Test strip Ql (U) Negative [facility] Microscopic observation Gram stain Nom (Bronch spec) [facility] Nitrite Ql (U) Negative [facility] pH (U) 5.5 [pH] 5 - 7 [facility] Protein Ql (U) Negative mg/dL [facility] RBC LM.HPF (Urine sed) [#/Area] [facility] RBC Ql (U) Negative [facility] Specific gravity (U) [Rel density] 1.001 - 1.035 [facility] Transitional cells LM Ql (Urine sed) [facility] Urobilinogen Qn (U) 0.2 [facility] WBC LM.HPF (Urine sed) [#/Area] [facility] XR ANKLE RIGHT 3+ VIEWS (STA [...] arthritic changes at the talonavicular articulation noted. [employer] Workstation ID: [id number] Dictated by: BOB TONY on Omar May 02, 2022 2:33:16 PM EDT Transcribed by: ELIAS HARPER on Omar May 02, 2022 2:34:42 PM EDT Finalized by: BOB TONY on Omar May 02, 2022 4:39:[address] [facility] Comment on above: Order [...] arthritic changes at the talonavicular articulation noted. [employer] Workstation ID: [id number] [facility] [facility] EXAMINATION: XR ANKLE RIGHT 3+ VIEWS (STANDARD) [...] Frontal, oblique and lateral views were obtained. [facility] Bob Tony M D - 05/02/2022 EXAMINATION: XR ANKLE [...] talonavicular articulation noted. SKS/jcw Workstation ID: [id number] [facility] Radiology Study observation (narrative) [facility] XR Ankle Right 3+ Views (Sta ndard)Ordered By: Bob Tony on 05-02-2022 [facility] Work Phone: US FEMALE PELVIS TRANSVAGon 01-20-2022 [facility] HCG QUAL UR B/Oon 12-04-2021 status Negative neg - [facility] Quality Check Yes [facility] ALLIED HEALTHon 11-02-2021 ALLIED HEALTH HNO ID: [id number] Author: RT Beatrice(R) Service: ? Author Type: [...] IV DATA: Not applicable SIGNED BY: Loulou Altamirano, RT(R), Micki CORONA November 02, 2021 2:12 PM [facility] MRI ANKLE WO IVCON LTon 03-2 MRI ANKLE WO IVCON LT * * *Final Report* * * DATE OF EXAM: Nov 02 2021 2:42PM [facility] 0163 - MRI ANKLE WO IVCON LT / PROCEDURE REASON: Acute left ankle pain * * * * Physician Interpretation * * * * EXAMINATION: MRI LEFT ANKLE _ Clinical history: Acute left ankle pain Technique: [...] the lateral collateral ligament complex are intact Auto Fleet Manager: [facility] Transcribe Date/Time: Nov 02 2021 5:07P Dictated by : GIOVANY MENJIVAR MD This examination was interpreted and the report reviewed and electronically signed by: GIOVANY MENJIVAR MD on Nov 02 2021 5:09PM EST [id number] Normal [facility] XR Ankle - left AP and Later al and obliqueon 09-16-2021 IMPRESSION: No radiographic evidence of acute osseous injury. Auto Fleet Manager: [facility] Transcribe Date/Time: Sep 16 2021 11:38A Dictated by : JAMES THURMAN MD This examination was interpreted and the report reviewed and electronically signed by: JAMES THURMAN MD on Sep 16 2021 11:39AM [facility] DIVISION OF RADIOLOGY * * [...] Joint spaces preserved. DIVISION OF RADIOLOGY Provider, [facility] - 09/16/2021 * * *Final Report* * [...] No radiographic evidence of acute osseous injury. Auto Fleet Manager: [facility] Transcribe Date/Time: Sep 16 2021 11:38A Dictated by : JAMES THURMAN MD This examination was interpreted and the report reviewed and electronically signed by: JAMES THURMAN MD on Sep 16 2021 11:39AM EST [facility] Radiology Study observation (narrative) [facility] XR Ankle - left AP and Later al and obliqueOrdered By: Ccf Provider on 09-16-2021 [facility] No Panel Informationon 08-05 IMPRESSION: LEFT ANKLE: Within normal limits. No fracture or other bone or joint abnormalities. LEFT FOOT: Within normal limits. No fracture or other bone or joint abnormalities. Auto Fleet Manager: [facility] Transcribe Date/Time: Aug 05 2021 4:29P Dictated by : KATI ROMAN MD This examination was interpreted and the report reviewed and electronically signed by: KATI ROMAN MD on Aug 05 2021 4:34PM [facility] DIVISION OF RADIOLOGY Radiology Study observation (narrative) [facility] No Panel InformationOrdered By: Ccf Provider on 08-05-2021 [facility] XR Ankle - left AP and [...] radiopaque foreign bodies. DIVISION OF RADIOLOGY Provider, [facility] - 08/05/2021 * * *Final Report* * [...] fracture or other bone or joint abnormalities. Auto Fleet Manager: [facility] Transcribe Date/Time: Aug 05 2021 4:29P Dictated by : KATI ROMAN MD This examination was interpreted and the report reviewed and electronically signed by: KATI ROMAN MD on Aug 05 2021 4:34PM [facility] XR Foot - left AP and [...] radiopaque foreign bodies. DIVISION OF RADIOLOGY Provider, [facility] - 08/05/2021 * * *Final Report* * [...] fracture or other bone or joint abnormalities. Auto Fleet Manager: [facility] Transcribe Date/Time: Aug 05 2021 4:29P Dictated by : KATI ROMAN MD This examination was interpreted and the report reviewed and electronically signed by: KATI ROMAN MD on Aug 05 2021 4:34PM EST [facility] No Panel Informationon 01-07 IMPRESSION: No acute osseous abnormality of the LEFT wrist or LEFT shoulder is identified. Auto Fleet Manager: [facility] Transcribe Date/Time: Jan 07 2021 8:17A Dictated by : MICHELINE MORIN MD This examination was interpreted and the report reviewed and electronically signed by: MICHELINE MORIN MD on Jan 07 2021 8:20AM EST DIVISION OF RADIOLOGY Radiology Study observation (narrative) [facility] No Panel InformationOrdered By: Ccf Provider on 01-07-2021 [facility] XR Shoulder - left 3 Viewson [...] area Acute pain of left shoulder (accession [id number]), Left wrist pain (accession [id number]) Technique: XR WRIST 4V PA/LAT/OBL/SCAPH LT, XR SHLDR >/=3V AP/JENNIE AP/OTHR LT -- LEFT wrist and shoulder with 4 (accession [id number]), 3 (accession [id number]) views on 4 (accession [id number]), 3 (accession [id number]) images Comparison: 10/27/2017 RESULT: LEFT wrist: No [...] lung are clear. DIVISION OF RADIOLOGY Provider, [facility] - 01/07/2021 * * *Final Report* * [...] area Acute pain of left shoulder (accession [id number]), Left wrist pain (accession [id number]) Technique: XR WRIST 4V PA/LAT/OBL/SCAPH LT, XR SHLDR >/=3V AP/JENNIE AP/OTHR LT -- LEFT wrist and shoulder with 4 (accession [id number]), 3 (accession [id number]) views on 4 (accession [id number]), 3 (accession [id number]) images Comparison: 10/27/2017 RESULT: LEFT wrist: No [...] LEFT wrist or LEFT shoulder is identified. Auto Fleet Manager: [facility] Transcribe Date/Time: Jan 07 2021 8:17A Dictated by : MICHELINE MORIN MD This examination was interpreted and the report reviewed and electronically signed by: MICHELINE MORIN MD on Jan 07 2021 8:20AM [facility] XR Wrist - left 4 Viewson [...] area Acute pain of left shoulder (accession [id number]), Left wrist pain (accession [id number]) Technique: XR WRIST 4V PA/LAT/OBL/SCAPH LT, XR SHLDR >/=3V AP/JENNIE AP/OTHR LT -- LEFT wrist and shoulder with 4 (accession [id number]), 3 (accession [id number]) views on 4 (accession [id number]), 3 (accession [id number]) images Comparison: 10/27/2017 RESULT: LEFT wrist: No [...] lung are clear. DIVISION OF RADIOLOGY Provider, [facility] - 01/07/2021 * * *Final Report* * [...] area Acute pain of left shoulder (accession [id number]), Left wrist pain (accession [id number]) Technique: XR WRIST 4V PA/LAT/OBL/SCAPH LT, XR SHLDR >/=3V AP/JENNIE AP/OTHR LT -- LEFT wrist and shoulder with 4 (accession [id number]), 3 (accession [id number]) views on 4 (accession [id number]), 3 (accession [id number]) images Comparison: 10/27/2017 RESULT: LEFT wrist: No [...] LEFT wrist or LEFT shoulder is identified. Auto Fleet Manager: [facility] Transcribe Date/Time: Jan 07 2021 8:17A Dictated by : MICHELINE MORIN MD This examination was interpreted and the report reviewed and electronically signed by: MICHELINE MORIN MD on Jan 07 2021 8:20AM [facility] CT Sinuses WO contraston IMPRESSION: Clear paranasal sinuses without radiographic sequelae of chronic sinusitis. Auto Fleet Manager: [facility] Transcribe Date/Time: Jul 17 2020 10:37A Dictated by : KENNETH ROSAS MD This examination was interpreted and the report reviewed and electronically signed by: LIZABETH PARKER MD on Jul 17 2020 11:03AM [facility] DIVISION OF RADIOLOGY * * *Final Report* * * DATE OF EXAM: Jul 17 2020 10:29AM [facility] 0488 - CT SINUS WO IVCON / [...] limits within the limitations of the study. Furniture Shampooer (topogram) images: Unremarkable. DIVISION OF RADIOLOGY Provider, [facility] - 07/17/2020 * * *Final Report* * * DATE OF EXAM: Jul 17 2020 10:29AM [facility] 0488 - CT SINUS WO IVCON / [...] limits within the limitations of the study. Furniture Shampooer (topogram) images: Unremarkable. IMPRESSION IMPRESSION: Clear paranasal sinuses without radiographic sequelae of chronic sinusitis. Auto Fleet Manager: [employer] Transcribe Date/Time: Jul 17 2020 10:37A Dictated by : KENNETH ROSAS MD This examination was interpreted and the report reviewed and electronically signed by: LIZABETH PARKER MD on Jul 17 2020 11:03AM EST [facility] Radiology Study observation (narrative) [facility] CT Sinuses WO contrastOrdere d By: Ccf Provider on 07-17-2020 [facility] XR Chest PA and Lateralon IMPRESSION: No acute radiographic abnormality. Auto Fleet Manager: [employer] Transcribe Date/Time: Jun 05 2020 [...] osseous abnormalities appreciated. DIVISION OF RADIOLOGY Provider, [facility] - 06/05/2020 * * *Final Report* * [...] appreciated. IMPRESSION IMPRESSION: No acute radiographic abnormality. Auto Fleet Manager: [employer] Transcribe Date/Time: Jun 05 2020 12:37P Dictated by : MICHELINE MORIN MD This examination was interpreted and the report reviewed and electronically signed by: MICHELINE MORIN MD on Jun 05 2020 12:38PM EST [facility] Radiology Study observation (narrative) [facility] XR Chest PA and LateralOrder ed By: Ccf Provider on 06-05-2020 [facility] Vital Signs Date Time Vital Sign Value Performing Clinician Facility 02-20-2025 15:05-0400 Body height 154 cm Michelle Rojas APRN.TECHNICAL INTERN Work Phone: [facility] 02-20-2025 15:05-0400 Body mass index (BMI) [Ratio] 51.26 kg/m2 Michelle Rojas APRN.TECHNICAL INTERN Work Phone: [facility] 02-20-2025 15:05-0400 Body weight 121.56 kg Michelle Rojas APRN.TECHNICAL INTERN Work Phone: [facility] 01-09-2025 10:12-0400 Body mass index (BMI) [Ratio] 53.6 kg/m2 Petra Beckman APRN.TECHNICAL INTERN Work Phone: [facility] 01-09-2025 10:12-0400 Body weight 124.5 kg Petra Beckman APRN.TECHNICAL INTERN Work Phone: [facility] 01-09-2025 10:12-0400 Diastolic blood pressure 103 mm[Hg] Petra Beckman APRN.TECHNICAL INTERN Work Phone: [facility] 01-09-2025 10:12-0400 Heart rate 130 /min Petra Beckman APRN.TECHNICAL INTERN Work Phone: [facility] 01-09-2025 10:12-0400 SaO2% (BldA) [Mass fraction] 99 % Petra Beckman APRN.TECHNICAL INTERN Work Phone: [facility] 01-09-2025 10:12-0400 Systolic blood pressure 168 mm[Hg] Petra Beckman APRN.TECHNICAL INTERN Work Phone: [facility] 12-21-2024 10:48-0400 Body mass index (BMI) [Ratio] 54.21 kg/m2 Kedar Varela PA Work Phone: [facility] 12-21-2024 10:48-0400 Body temperature 97.5 [degF] Krislyn Aberegg PA Work Phone: [facility] 12-21-2024 10:48-0400 Body weight 125.9 kg Krislyn Aberegg PA Work Phone: [facility] 12-21-2024 10:48-0400 Diastolic blood pressure 94 mm[Hg] Krislyn Aberegg PA Work Phone: [facility] 12-21-2024 10:48-0400 Heart rate 120 /min Krislyn Aberegg PA Work Phone: [facility] 12-21-2024 10:48-0400 Respiratory rate 20 /min Krislyn Aberegg PA Work Phone: [facility] 12-21-2024 10:48-0400 SaO2% (BldA) [Mass fraction] 97 % Krislyn Aberegg PA Work Phone: [facility] 12-21-2024 10:48-0400 Systolic blood pressure 148 mm[Hg] Krislyn Aberegg PA Work Phone: [facility] 11-22-2024 07:13-0400 Body mass index (BMI) [Ratio] 53.73 kg/m2 Krislyn Aberegg PA Work Phone: [facility] 11-22-2024 07:13-0400 Body temperature 97 [degF] Krislyn Aberegg PA Work Phone: [facility] 11-22-2024 07:13-0400 Body weight 124.8 kg Krislyn Aberegg PA Work Phone: [facility] 11-22-2024 07:13-0400 Diastolic blood pressure 78 mm[Hg] Krislyn Aberegg PA Work Phone: [facility] 11-22-2024 07:13-0400 Heart rate 112 /min Krislyn Aberegg PA Work Phone: [facility] 11-22-2024 07:13-0400 Respiratory rate 18 /min Krislyn Aberegg PA Work Phone: [facility] 11-22-2024 07:13-0400 SaO2% (BldA) [Mass fraction] 98 % Krislyn Aberegg PA Work Phone: [facility] 11-22-2024 07:13-0400 Systolic blood pressure 116 mm[Hg] Krislyn Aberegg PA Work Phone: [facility] 11-19-2024 19:03-0400 Body mass index (BMI) [Ratio] 54.08 kg/m2 Rosaura Santacruz SUPERVISOR FELLING BUCKING.TECHNICAL INTERN Work Phone: [facility] 11-19-2024 19:03-0400 Body temperature 98.29 [degF] Rosaura Santacruz SUPERVISOR FELLING BUCKING.TECHNICAL INTERN Work Phone: [facility] 11-19-2024 19:03-0400 Body weight 125.6 kg Rosaura Santacruz SUPERVISOR FELLING BUCKING.TECHNICAL INTERN Work Phone: [facility] 11-19-2024 19:03-0400 Diastolic blood pressure 76 mm[Hg] Rosaura Santacruz SUPERVISOR FELLING BUCKING.TECHNICAL INTERN Work Phone: [facility] 11-19-2024 19:03-0400 Heart rate 105 /min Rosaura Santacruz SUPERVISOR FELLING BUCKING.TECHNICAL INTERN Work Phone: [facility] 11-19-2024 19:03-0400 Respiratory rate 18 /min Rosaura Santacruz SUPERVISOR FELLING BUCKING.TECHNICAL INTERN Work Phone: [facility] 11-19-2024 19:03-0400 SaO2% (BldA) [Mass fraction] 98 % Rosaura Santacruz SUPERVISOR FELLING BUCKING.TECHNICAL INTERN Work Phone: [facility] 11-19-2024 19:03-0400 Systolic blood pressure 112 mm[Hg] Rosaura Santacruz SUPERVISOR FELLING BUCKING.TECHNICAL INTERN Work Phone: [facility] 10-31-2024 16:30-0400 Body mass index (BMI) [Ratio] 53.82 kg/m2 Nicholas Dorantes SUPERVISOR FELLING BUCKING.TECHNICAL INTERN Work Phone: [facility] 10-31-2024 16:30-0400 Body temperature 99.3 [degF] Nicholas [facility] SUPERVISOR FELLING BUCKING.TECHNICAL INTERN Work Phone: [facility] 10-31-2024 16:30-0400 Body weight 125 kg Nicholas Jayna SUPERVISOR FELLING BUCKING.TECHNICAL INTERN Work Phone: [facility] 10-31-2024 16:30-0400 Diastolic blood pressure 80 mm[Hg] Nicholas Dorantes SUPERVISOR FELLING BUCKING.TECHNICAL INTERN Work Phone: [facility] 10-31-2024 16:30-0400 Heart rate 99 /min Nicholas [facility] SUPERVISOR FELLING BUCKING.TECHNICAL INTERN Work Phone: [facility] 10-31-2024 16:30-0400 Respiratory rate 18 /min Nicholas Brightceferino SUPERVISOR FELLING BUCKING.TECHNICAL INTERN Work Phone: [facility] 10-31-2024 16:30-0400 SaO2% (BldA) [Mass fraction] 98 % Nicholas Novoarubiceferino SUPERVISOR FELLING BUCKING.TECHNICAL INTERN Work Phone: [facility] 10-31-2024 16:30-0400 Systolic blood pressure 122 mm[Hg] Nicholas Novoarubiceferino SUPERVISOR FELLING BUCKING.TECHNICAL INTERN Work Phone: [facility] 10-24-2024 11:36-0400 Body mass index (BMI) [Ratio] 53.73 kg/m2 Steven Harris SUPERVISOR FELLING BUCKING.TECHNICAL INTERN Work Phone: [facility] 10-24-2024 11:36-0400 Body temperature 97.9 [degF] Steven Harris SUPERVISOR FELLING BUCKING.TECHNICAL INTERN Work Phone: [facility] 10-24-2024 11:36-0400 Body weight 124.8 kg Steven Harris SUPERVISOR FELLING BUCKING.TECHNICAL INTERN Work Phone: [facility] 10-24-2024 11:36-0400 Diastolic blood pressure 80 mm[Hg] Steven Harris SUPERVISOR FELLING BUCKING.TECHNICAL INTERN Work Phone: [facility] 10-24-2024 11:36-0400 Heart rate 99 /min Steven Harris SUPERVISOR FELLING BUCKING.TECHNICAL INTERN Work Phone: [facility] 10-24-2024 11:36-0400 Respiratory rate 16 /min Steven Harris SUPERVISOR FELLING BUCKING.TECHNICAL INTERN Work Phone: [facility] 10-24-2024 11:36-0400 SaO2% (BldA) [Mass fraction] 99 % Steven Harris SUPERVISOR FELLING BUCKING.TECHNICAL INTERN Work Phone: [facility] 10-24-2024 11:36-0400 Systolic blood pressure 130 mm[Hg] Steven Harris SUPERVISOR FELLING BUCKING.TECHNICAL INTERN Work Phone: [facility] 10-16-2024 18:59-0500 Body height 152.4 cm Faustina Carcamo MD Work Phone: [facility] 10-16-2024 18:59-0500 Body mass index (BMI) [Ratio] 53.09 kg/m2 Faustina Carcamo MD Work Phone: [facility] 10-16-2024 18:59-0500 Body temperature 97.9 [degF] Faustina Carcamo MD Work Phone: [facility] 10-16-2024 18:59-0500 Body weight 123.3 kg Faustina Carcamo MD Work Phone: [facility] 10-16-2024 18:59-0500 Diastolic blood pressure 70 mm[Hg] Faustina Carcamo MD Work Phone: [facility] 10-16-2024 18:59-0500 Heart rate 102 /min Faustina Carcamo MD Work Phone: [facility] 10-16-2024 18:59-0500 Respiratory rate 14 /min Faustina Carcamo MD Work Phone: [facility] 10-16-2024 18:59-0500 SaO2% (BldA) [Mass fraction] 98 % Faustina Carcamo MD Work Phone: [facility] 10-16-2024 18:59-0500 Systolic blood pressure 136 mm[Hg] Faustina Carcamo MD Work Phone: [facility] 09-25-2024 08:58-0500 Body mass index (BMI) [Ratio] 53.39 kg/m2 Rosaura Santacruz SUPERVISOR FELLING BUCKING.TECHNICAL INTERN Work Phone: [facility] 09-25-2024 08:58-0500 Body temperature 98.49 [degF] Rosaura Santacruz SUPERVISOR FELLING BUCKING.TECHNICAL INTERN Work Phone: [facility] 09-25-2024 08:58-0500 Body weight 124 kg Rosaura Santacruz SUPERVISOR FELLING BUCKING.TECHNICAL INTERN Work Phone: [facility] 09-25-2024 08:58-0500 Diastolic blood pressure 100 mm[Hg] Rosaura Santacruz SUPERVISOR FELLING BUCKING.TECHNICAL INTERN Work Phone: [facility] Comment on above: checked x 3 , states she has POTS 09-25-2024 08:58-0500 Heart rate 125 /min Rosaura Santacruz SUPERVISOR FELLING BUCKING.TECHNICAL INTERN Work Phone: [facility] 09-25-2024 08:58-0500 Respiratory rate 20 /min Rosaura Santacruz SUPERVISOR FELLING BUCKING.TECHNICAL INTERN Work Phone: [facility] 09-25-2024 08:58-0500 SaO2% (BldA) [Mass fraction] 96 % Rosaura Santacruz SUPERVISOR FELLING BUCKING.TECHNICAL INTERN Work Phone: [facility] 09-25-2024 08:58-0500 Systolic blood pressure 137 mm[Hg] Rosaura Santacruz SUPERVISOR FELLING BUCKING.TECHNICAL INTERN Work Phone: [facility] Comment on above: checked x 3 , states she has POTS 07-11-2024 11:08-0500 Body mass index (BMI) [Ratio] 55.46 kg/m2 Devante Clutter PA-C Work Phone: [facility] 07-11-2024 11:08-0500 Body temperature 98.71 [degF] Devante Clutter PA-C Work Phone: [facility] 07-11-2024 11:08-0500 Body weight 128.8 kg Devante Clutter PA-C Work Phone: [facility] 07-11-2024 11:08-0500 Diastolic blood pressure 80 mm[Hg] Devante Clutter PA-C Work Phone: [facility] 07-11-2024 11:08-0500 Heart rate 91 /min Devante Clutter PA-C Work Phone: [facility] 07-11-2024 11:08-0500 Respiratory rate 16 /min Devante Clutter PA-C Work Phone: [facility] 07-11-2024 11:08-0500 SaO2% (BldA) [Mass fraction] 98 % Devante Clutter PA-C Work Phone: [facility] 07-11-2024 11:08-0500 Systolic blood pressure 132 mm[Hg] Devante Clutter PA-C Work Phone: [facility] 07-04-2024 15:23-0500 Heart rate 88 /min Moon Ruthann SUPERVISOR FELLING BUCKING.TECHNICAL INTERN Work Phone: [facility] 07-04-2024 15:00-0500 Body height 152.4 cm Moon Ruthann SUPERVISOR FELLING BUCKING.TECHNICAL INTERN Work Phone: [facility] 07-04-2024 15:00-0500 Body mass index (BMI) [Ratio] 54.16 kg/m2 Moon Ruthann SUPERVISOR FELLING BUCKING.TECHNICAL INTERN Work Phone: [facility] 07-04-2024 15:00-0500 Body weight 125.8 kg Moon Ruthann SUPERVISOR FELLING BUCKING.TECHNICAL INTERN Work Phone: [facility] 07-04-2024 15:00-0500 Diastolic blood pressure 80 mm[Hg] Moon Ruthnan SUPERVISOR FELLING BUCKING.TECHNICAL INTERN Work Phone: [facility] 07-04-2024 15:00-0500 Respiratory rate 14 /min Moon Ruthann SUPERVISOR FELLING BUCKING.TECHNICAL INTERN Work Phone: [facility] 07-04-2024 15:00-0500 SaO2% (BldA) [Mass fraction] 99 % Moon Ruthann SUPERVISOR FELLING BUCKING.TECHNICAL INTERN Work Phone: [facility] 07-04-2024 15:00-0500 Systolic blood pressure 136 mm[Hg] Moon Encinas SUPERVISOR FELLING BUCKING.TECHNICAL INTERN Work Phone: [facility] 05-14-2024 09:35-0400 Body height 153.[address] [facility] 05-14-2024 09:35-0400 Body mass index (BMI) [Ratio] 51.67 kg/m2 Rossy Cleveland RD [facility] 05-14-2024 09:35-0400 Body weight 122.[address] [facility] 04-03-2024 06:59-0400 Diastolic blood pressure 83 mm[Hg] Genaro Morales SUPERVISOR FELLING BUCKING.SEAL MIXING OPERATOR Work Phone: [facility] 04-03-2024 06:59-0400 Heart rate 102 /min Genaro Morales SUPERVISOR FELLING BUCKING.SEAL MIXING OPERATOR Work Phone: [facility] 04-03-2024 06:59-0400 Systolic blood pressure 138 mm[Hg] Genaro Morales SUPERVISOR FELLING BUCKING.SEAL MIXING OPERATOR Work Phone: [facility] 04-03-2024 06:58-0400 Body mass index (BMI) [Ratio] 51.71 kg/m2 Genaro Morales SUPERVISOR FELLING BUCKING.SEAL MIXING OPERATOR Work Phone: [facility] 04-03-2024 06:58-0400 Body weight 122.1 kg Genaro Morales SUPERVISOR FELLING BUCKING.SEAL MIXING OPERATOR Work Phone: [facility] 04-03-2024 06:58-0400 Respiratory rate 16 /min Genaro Morales SUPERVISOR FELLING BUCKING.SEAL MIXING OPERATOR Work Phone: [facility] 03-29-2024 09:58-0400 Body mass index (BMI) [Ratio] 51.63 kg/m2 Nurse Wstr Work Phone: [facility] 03-29-2024 09:58-0400 Body weight 121.93 kg Nurse Wstr Work Phone: [facility] 03-29-2024 09:58-0400 Diastolic blood pressure 74 mm[Hg] Nurse Wstr Work Phone: [facility] 03-29-2024 09:58-0400 Systolic blood pressure 122 mm[Hg] Nurse Wstr Work Phone: [facility] 03-15-2024 09:27-0400 Body mass index (BMI) [Ratio] 51.29 kg/m2 Karen Jenkins MD Work Phone: [facility] 03-15-2024 09:27-0400 Body weight 121.11 kg Karen Jenkins MD Work Phone: [facility] 03-15-2024 09:27-0400 Diastolic blood pressure 96 mm[Hg] Karen Jenkins MD Work Phone: [facility] 03-15-2024 09:27-0400 Systolic blood pressure 166 mm[Hg] Karen Jenkins MD Work Phone: [facility] 02-27-2024 15:23-0400 Body height 153.7 cm Ayaan Rowley SUPERVISOR FELLING BUCKING.CNM Work Phone: [facility] 02-27-2024 15:23-0400 Body mass index (BMI) [Ratio] 51.09 kg/m2 Ayaan Plotts SUPERVISOR FELLING BUCKING.CNM Work Phone: [facility] 02-27-2024 15:23-0400 Body weight 120.66 kg Ayaan Harryts SUPERVISOR FELLING BUCKING.CNM Work Phone: [facility] 02-27-2024 15:23-0400 Diastolic blood pressure 102 mm[Hg] Ayaan Plotts SUPERVISOR FELLING BUCKING.CNM Work Phone: [facility] 02-27-2024 15:23-0400 Systolic blood pressure 156 mm[Hg] Ayaan Plotts SUPERVISOR FELLING BUCKING.CNM Work Phone: [facility] 01-17-2024 11:31-0400 Body mass index (BMI) [Ratio] 50.83 kg/m2 Karen Jenkins MD Work Phone: [facility] 01-17-2024 11:31-0400 Body weight 122.02 kg Karen Jenkins MD Work Phone: [facility] 01-17-2024 11:31-0400 Diastolic blood pressure 88 mm[Hg] Karen Jenkins MD Work Phone: [facility] 01-17-2024 11:31-0400 Systolic blood pressure 138 mm[Hg] Karen Jenkins MD Work Phone: [facility] 01-02-2024 16:42-0400 Body mass index (BMI) [Ratio] 50.64 kg/m2 Faustina Carcamo MD Work Phone: [facility] 01-02-2024 16:42-0400 Body temperature 98.6 [degF] Faustina Carcamo MD Work Phone: [facility] 01-02-2024 16:42-0400 Body weight 121.56 kg Faustina Carcamo MD Work Phone: [facility] 01-02-2024 16:42-0400 Diastolic blood pressure 78 mm[Hg] Faustina Carcamo MD Work Phone: [facility] 01-02-2024 16:42-0400 Heart rate 106 /min Faustina Carcamo MD Work Phone: [facility] 01-02-2024 16:42-0400 Respiratory rate 18 /min Faustina Carcamo MD Work Phone: [facility] 01-02-2024 16:42-0400 SaO2% (BldA) [Mass fraction] 98 % Faustina Carcamo MD Work Phone: [facility] 01-02-2024 16:42-0400 Systolic blood pressure 122 mm[Hg] Faustina Carcamo MD Work Phone: [facility] 12-14-2023 12:51-0400 Body mass index (BMI) [Ratio] 51.11 kg/m2 Anton Moomaw SUPERVISOR FELLING BUCKING.TECHNICAL INTERN Work Phone: [facility] 12-14-2023 12:51-0400 Body temperature 98.29 [degF] Anton Fredomafranc SUPERVISOR FELLING BUCKING.TECHNICAL INTERN Work Phone: [facility] 12-14-2023 12:51-0400 Body weight 122.7 kg Anton Moomaw SUPERVISOR FELLING BUCKING.TECHNICAL INTERN Work Phone: [facility] 12-14-2023 12:51-0400 Diastolic blood pressure 82 mm[Hg] Anton Moomaw SUPERVISOR FELLING BUCKING.TECHNICAL INTERN Work Phone: [facility] 12-14-2023 12:51-0400 Heart rate 128 /min Anton Moomaw SUPERVISOR FELLING BUCKING.TECHNICAL INTERN Work Phone: [facility] 12-14-2023 12:51-0400 Respiratory rate 21 /min Anton Moomaw SUPERVISOR FELLING BUCKING.TECHNICAL INTERN Work Phone: [facility] 12-14-2023 12:51-0400 SaO2% (BldA) [Mass fraction] 97 % Anton Moomaw SUPERVISOR FELLING BUCKING.TECHNICAL INTERN Work Phone: [facility] 12-14-2023 12:51-0400 Systolic blood pressure 138 mm[Hg] Anton Moomaw SUPERVISOR FELLING BUCKING.TECHNICAL INTERN Work Phone: [facility] 12-08-2023 14:47-0400 Body mass index (BMI) [Ratio] 51.94 kg/m2 Isela Steret MD Work Phone: [facility] 12-08-2023 14:47-0400 Body weight 124.[address] MD Work Phone: [facility] 12-08-2023 14:47-0400 Diastolic blood pressure 89 mm[Hg] Isela Street MD Work Phone: [facility] 12-08-2023 14:47-0400 Heart rate 89 /min Isela Street MD Work Phone: [facility] 12-08-2023 14:47-0400 SaO2% (BldA) [Mass fraction] 97 % Isela Street MD Work Phone: [facility] 12-08-2023 14:47-0400 Systolic blood pressure 126 mm[Hg] Isela Street MD Work Phone: [facility] 10-27-2023 09:26-0400 Body weight 123.5 kg Qian Pena APRN.TECHNICAL INTERN Work Phone: [facility] 10-27-2023 09:26-0400 Diastolic blood pressure 90 mm[Hg] Qian Pena APRN.TECHNICAL INTERN Work Phone: [facility] 10-27-2023 09:26-0400 Heart rate 87 /min Qian Pena SUPERVISOR FELLING BUCKING.TECHNICAL INTERN Work Phone: [facility] 10-27-2023 09:26-0400 SaO2% (BldA) [Mass fraction] 96 % Qian Pena SUPERVISOR FELLING BUCKING.TECHNICAL INTERN Work Phone: [facility] 10-27-2023 09:26-0400 Systolic blood pressure 136 mm[Hg] Qian Pena SUPERVISOR FELLING BUCKING.TECHNICAL INTERN Work Phone: [facility] 10-14-2023 11:07-0500 Body weight 123.83 kg Genaro Morales SUPERVISOR FELLING BUCKING.SEAL MIXING OPERATOR Work Phone: [facility] 10-14-2023 11:07-0500 Diastolic blood pressure 88 mm[Hg] Genaro Morales SUPERVISOR FELLING BUCKING.SEAL MIXING OPERATOR Work Phone: [facility] 10-14-2023 11:07-0500 Heart rate 128 /min Genaro Morales SUPERVISOR FELLING BUCKING.SEAL MIXING OPERATOR Work Phone: [facility] 10-14-2023 11:07-0500 Respiratory rate 16 /min Genaro Morales SUPERVISOR FELLING BUCKING.SEAL MIXING OPERATOR Work Phone: [facility] 10-14-2023 11:07-0500 Systolic blood pressure 118 mm[Hg] Genaro Morales SUPERVISOR FELLING BUCKING.SEAL MIXING OPERATOR Work Phone: [facility] 07-22-2023 13:41-0500 Body height 154.9 cm Joe Contreras MD Work Phone: [facility] 07-22-2023 13:41-0500 Body weight 121.75 kg Joe Contreras MD Work Phone: [facility] 07-22-2023 13:41-0500 Diastolic blood pressure 84 mm[Hg] Joe Contreras MD Work Phone: [facility] 07-22-2023 13:41-0500 Systolic blood pressure 126 mm[Hg] Joe Contreras MD Work Phone: [facility] 06-06-2023 08:32-0400 Body temperature 97.59 [degF] Patsy Towers PA-C Work Phone: [facility] 06-06-2023 08:32-0400 Body weight 120.66 kg Patsy Towers PA-C Work Phone: [facility] 06-06-2023 08:32-0400 Diastolic blood pressure 93 mm[Hg] Patsy Towers PA-C Work Phone: [facility] 06-06-2023 08:32-0400 Heart rate 111 /min Patsy Towers PA-C Work Phone: [facility] 06-06-2023 08:32-0400 SaO2% (BldA) [Mass fraction] 98 % Patsy Towers PA-C Work Phone: [facility] 06-06-2023 08:32-0400 Systolic blood pressure 131 mm[Hg] Patsy Towers PA-C Work Phone: [facility] 05-20-2023 07:32-0400 Body weight 122.47 kg Genaro Morales SUPERVISOR FELLING BUCKING.SEAL MIXING OPERATOR Work Phone: [facility] 05-20-2023 07:32-0400 Diastolic blood pressure 78 mm[Hg] Genaro Morales SUPERVISOR FELLING BUCKING.SEAL MIXING OPERATOR Work Phone: [facility] 05-20-2023 07:32-0400 Heart rate 91 /min Genaro Morales SUPERVISOR FELLING BUCKING.SEAL MIXING OPERATOR Work Phone: [facility] 05-20-2023 07:32-0400 Respiratory rate 16 /min Genaro Morales SUPERVISOR FELLING BUCKING.SEAL MIXING OPERATOR Work Phone: [facility] 05-20-2023 07:32-0400 SaO2% (BldA) [Mass fraction] 97 % Genaro Garcias SUPERVISOR FELLING BUCKING.SEAL MIXING OPERATOR Work Phone: [facility] 05-20-2023 07:32-0400 Systolic blood pressure 119 mm[Hg] Genaro Garcias SUPERVISOR FELLING BUCKING.SEAL MIXING OPERATOR Work Phone: [facility] 02-25-2023 16:03-0400 Body height 154.9 cm Ayaan Harryts SUPERVISOR FELLING BUCKING.CNM Work Phone: [facility] 02-25-2023 16:03-0400 Body weight 118.75 kg Ayaan Rowley SUPERVISOR FELLING BUCKING.CNM Work Phone: [facility] 02-25-2023 16:03-0400 Diastolic blood pressure 76 mm[Hg] Ayaan Harryts SUPERVISOR FELLING BUCKING.CNM Work Phone: [facility] 02-25-2023 16:03-0400 Systolic blood pressure 124 mm[Hg] Ayaan Harryts SUPERVISOR FELLING BUCKING.CNM Work Phone: [facility] 02-07-2023 11:11-0400 Body temperature 97.5 [degF] Krislyn Aberegg PA Work Phone: [facility] 02-07-2023 11:11-0400 Diastolic blood pressure 64 mm[Hg] Krislyn Aberegg PA Work Phone: [facility] 02-07-2023 11:11-0400 Heart rate 65 /min Krislyn Aberegg PA Work Phone: [facility] 02-07-2023 11:11-0400 Respiratory rate 21 /min Krislyn Aberegg PA Work Phone: [facility] 02-07-2023 11:11-0400 SaO2% (BldA) [Mass fraction] 98 % Krislyn Aberegg PA Work Phone: [facility] 02-07-2023 11:11-0400 Systolic blood pressure 100 mm[Hg] Krislyn Aberegg PA Work Phone: [facility] 12-03-2022 14:14-0400 Body weight 118.89 kg Silvia Tucker MD Work Phone: [facility] 12-03-2022 14:14-0400 Diastolic blood pressure 88 mm[Hg] Silvia Tucker MD Work Phone: [facility] 12-03-2022 14:14-0400 Heart rate 110 /min Silvia Tucker MD Work Phone: [facility] 12-03-2022 14:14-0400 Systolic blood pressure 132 mm[Hg] Silvia Tucker MD Work Phone: [facility] 09-20-2022 19:49-0500 Body temperature 97.59 [degF] Miriam Ortiz MD Work Phone: [facility] 09-20-2022 19:49-0500 Diastolic blood pressure 86 mm[Hg] Miriam Ortiz MD Work Phone: [facility] 09-20-2022 19:49-0500 Heart rate 102 /min Miriam Ortiz MD Work Phone: [facility] 09-20-2022 19:49-0500 Respiratory rate 16 /min Miriam Ortiz MD Work Phone: [facility] 09-20-2022 19:49-0500 SaO2% (BldA) [Mass fraction] 98 % Miriam Ortiz MD Work Phone: [facility] 09-20-2022 19:49-0500 Systolic blood pressure 133 mm[Hg] Miriam Ortiz MD Work Phone: [facility] 08-11-2022 16:52-0500 Body temperature 97.2 [degF] Faustina Carcamo MD Work Phone: [facility] 08-11-2022 16:52-0500 Body weight 117.03 kg Faustina Carcamo MD Work Phone: [facility] 08-11-2022 16:52-0500 Diastolic blood pressure 68 mm[Hg] Faustina Carcamo MD Work Phone: [facility] 08-11-2022 16:52-0500 Heart rate 107 /min Faustina Carcamo MD Work Phone: [facility] 08-11-2022 16:52-0500 Respiratory rate 18 /min Faustina Carcamo MD Work Phone: [facility] 08-11-2022 16:52-0500 SaO2% (BldA) [Mass fraction] 99 % Faustina Carcamo MD Work Phone: [facility] 08-11-2022 16:52-0500 Systolic blood pressure 122 mm[Hg] Faustina Carcamo MD Work Phone: [facility] 07-14-2022 15:41-0500 Body weight 120.93 kg Ayaan Rowley SUPERVISOR FELLING BUCKING.CNM Work Phone: [facility] 07-14-2022 15:41-0500 Diastolic blood pressure 72 mm[Hg] Ayaan Harryts SUPERVISOR FELLING BUCKING.CNM Work Phone: [facility] 07-14-2022 15:41-0500 Systolic blood pressure 128 mm[Hg] Ayaan Rowley SUPERVISOR FELLING BUCKING.CNM Work Phone: [facility] 06-28-2022 15:33-0500 Body temperature 97.39 [degF] Marina Goodrich SUPERVISOR FELLING BUCKING-TECHNICAL INTERN Work Phone: [facility] 06-28-2022 15:33-0500 Diastolic blood pressure 82 mm[Hg] Marina Goodrich SUPERVISOR FELLING BUCKING-TECHNICAL INTERN Work Phone: [facility] 06-28-2022 15:33-0500 Heart rate 92 /min Marina Goodrich SUPERVISOR FELLING BUCKING-TECHNICAL INTERN Work Phone: [facility] 06-28-2022 15:33-0500 Respiratory rate 16 /min Marina Goodrich SUPERVISOR FELLING BUCKING-TECHNICAL INTERN Work Phone: [facility] 06-28-2022 15:33-0500 SaO2% (BldA) [Mass fraction] 94 % Marina Goodrich SUPERVISOR FELLING BUCKING-TECHNICAL INTERN Work Phone: [facility] 06-28-2022 15:33-0500 Systolic blood pressure 119 mm[Hg] Marina Goodrich SUPERVISOR FELLING BUCKING-TECHNICAL INTERN Work Phone: [facility] 05-05-2022 12:30-0400 Body mass index (BMI) [Ratio] 49.13 kg/m2 Casey Kern MD Work Phone: [facility] 05-05-2022 12:30-0400 Body weight 121.11 kg Casey Kern MD Work Phone: [facility] 05-05-2022 12:30-0400 Diastolic blood pressure 76 mm[Hg] Casey Kern MD Work Phone: [facility] 05-05-2022 12:30-0400 Heart rate 78 /min Casey Kern MD Work Phone: [facility] 05-05-2022 12:30-0400 SaO2% (BldA) [Mass fraction] 99 % Casey Kern MD Work Phone: [facility] 05-05-2022 12:30-0400 Systolic blood pressure 102 mm[Hg] Casey Kern MD Work Phone: [facility] 05-02-2022 09:32-0400 Body height 156.2 cm Ovi Herrera DO Work Phone: [facility] 05-02-2022 09:32-0400 Body mass index (BMI) [Ratio] 50.38 kg/m2 Ovi Herrera DO Work Phone: [facility] 05-02-2022 09:32-0400 Body temperature 98.1 [degF] Ovi Herrera DO Work Phone: [facility] 05-02-2022 09:32-0400 Body weight 122.92 kg Ovi Herrera DO Work Phone: [facility] 05-02-2022 09:32-0400 Diastolic blood pressure 82 mm[Hg] Ovi Herrera DO Work Phone: [facility] 05-02-2022 09:32-0400 Heart rate 93 /min Ovi Herrera DO Work Phone: [facility] 05-02-2022 09:32-0400 Respiratory rate 17 /min Ovi Herrera DO Work Phone: [facility] 05-02-2022 09:32-0400 SaO2% (BldA) [Mass fraction] 95 % Ovi Herrera DO Work Phone: [facility] 05-02-2022 09:32-0400 Systolic blood pressure 135 mm[Hg] Ovi Herrera DO Work Phone: [facility] 04-16-2022 08:05-0400 Body height 157 cm Lennyu Mingo MBBS Work Phone: [facility] 04-16-2022 08:05-0400 Body mass index (BMI) [Ratio] 49.87 kg/m2 Lucianonu Mingo MBBS Work Phone: [facility] 04-16-2022 08:05-0400 Body weight 122.92 kg Lucianonu Mingo MBBS Work Phone: [facility] 04-16-2022 08:05-0400 Diastolic blood pressure 88 mm[Hg] Lucianonu Mingo MBBS Work Phone: [facility] 04-16-2022 08:05-0400 Heart rate 102 /min Lucianonu Mingo MBBS Work Phone: [facility] 04-16-2022 08:05-0400 SaO2% (BldA) [Mass fraction] 98 % Lucianoamariliskrishna Mingo MBBS Work Phone: [facility] 04-16-2022 08:05-0400 Systolic blood pressure 128 mm[Hg] Lucianoamariliskrishna Mingo MBBS Work Phone: [facility] 03-30-2022 17:26-0400 Body weight 120.2 kg Faustina Carcamo MD Work Phone: [facility] 03-30-2022 17:26-0400 Diastolic blood pressure 70 mm[Hg] Faustina Carcamo MD Work Phone: [facility] 03-30-2022 17:26-0400 Heart rate 100 /min Faustina Carcamo MD Work Phone: [facility] 03-30-2022 17:26-0400 SaO2% (BldA) [Mass fraction] 97 % Faustina Carcamo MD Work Phone: [facility] 03-30-2022 17:26-0400 Systolic blood pressure 102 mm[Hg] Faustina Carcamo MD Work Phone: [facility] 01-13-2022 09:05-0400 Body weight 120.66 kg Ayaan Rowley SUPERVISOR FELLING BUCKING.CNM Work Phone: [facility] 01-13-2022 09:05-0400 Diastolic blood pressure 76 mm[Hg] Ayaan Rowley SUPERVISOR FELLING BUCKING.CNM Work Phone: [facility] 01-13-2022 09:05-0400 Systolic blood pressure 122 mm[Hg] Ayaan Harryts SUPERVISOR FELLING BUCKING.CNM Work Phone: [facility] 01-05-2022 14:23-0400 Body weight 119.3 kg Genaro Morales SUPERVISOR FELLING BUCKING.SEAL MIXING OPERATOR Work Phone: [facility] 01-05-2022 14:23-0400 Diastolic blood pressure 88 mm[Hg] Genaro Garcias SUPERVISOR FELLING BUCKING.SEAL MIXING OPERATOR Work Phone: [facility] 01-05-2022 14:23-0400 Heart rate 114 /min Genaro Garcias SUPERVISOR FELLING BUCKING.SEAL MIXING OPERATOR Work Phone: [facility] 01-05-2022 14:23-0400 Respiratory rate 16 /min Genaro Garcias SUPERVISOR FELLING BUCKING.SEAL MIXING OPERATOR Work Phone: [facility] 01-05-2022 14:23-0400 SaO2% (BldA) [Mass fraction] 97 % Genaro Morales SUPERVISOR FELLING BUCKING.SEAL MIXING OPERATOR Work Phone: [facility] 01-05-2022 14:23-0400 Systolic blood pressure 122 mm[Hg] Genaro Garcias SUPERVISOR FELLING BUCKING.SEAL MIXING OPERATOR Work Phone: [facility] 12-04-2021 09:34-0400 Body weight 120.66 kg Ayaan Rowley SUPERVISOR FELLING BUCKING.CNM Work Phone: [facility] 12-04-2021 09:34-0400 Diastolic blood pressure 68 mm[Hg] Ayaan Harryts SUPERVISOR FELLING BUCKING.CNM Work Phone: [facility] 12-04-2021 09:34-0400 Systolic blood pressure 112 mm[Hg] Ayaan Plotts SUPERVISOR FELLING BUCKING.CNM Work Phone: [facility] 11-17-2021 12:14-0400 Body height 152.4 cm Yair Lyons MD Work Phone: [facility] 11-17-2021 12:14-0400 Body weight 120.66 kg Yair Lyons MD Work Phone: [facility] 09-22-2021 18:17-0500 Body weight 117.94 kg Faustina Carcamo MD Work Phone: [facility] 09-22-2021 18:17-0500 Diastolic blood pressure 78 mm[Hg] Faustina Carcamo MD Work Phone: [facility] 09-22-2021 18:17-0500 Heart rate 86 /min Faustina Carcamo MD Work Phone: [facility] 09-22-2021 18:17-0500 Systolic blood pressure 112 mm[Hg] Faustina Carcamo MD Work Phone: [facility] Encounters Encounter Date Encounter Type Care Provider Facility Start: 02-20-2025 End: 02-20-2025 Patient encounter procedure Michelle Rojas APRN.TECHNICAL INTERN Work Phone: OB/Gynecology Comment on above: Encounter for gyneco logical examination (general) (routine) without abnormal findings (Primary Dx); Screening for cervical cancer; Encounter for screening for human papillomavirus (HPV); Screen for STD (sexually transmitted disease); Immunocompromised state (HCC) Start: 02-20-2025 End: 02-20-2025 Patient encounter status Michelle Rojas APRN.TECHNICAL INTERN Work Phone: [facility] Work Phone: Start: 01-31-2025 End: 01-31-2025 Specialty Pharmacy Ramin Glasgow [facility] Comment on above: SPP Inflammatory Con ditions - Medication Refill (Ilaris ) Start: 01-27-2025 End: 01-27-2025 Emergency department patient visit [facility] Facility:[facility] Start: 01-21-2025 End: 01-21-2025 ambulatory [facility] Facility:[facility] Start: 01-11-2025 End: 01-11-2025 ambulatory [facility] [place] Start: 01-11-2025 End: 01-11-2025 Patient encounter procedure [facility] [place] Comment on above: Update from [facility] ent Start: 01-09-2025 End: 01-09-2025 Patient encounter procedure Petra Beckman APRN.TECHNICAL INTERN Work Phone: [facility] [place] Comment on above: Panic disorder with agoraphobia (Primary Dx); Immunosuppression (HCC); Periodic fever syndrome (HCC); Gastroenteritis Start: 01-09-2025 End: 01-09-2025 ambulatory [facility] Facility:[facility] Start: 12-21-2024 End: 12-21-2024 Patient encounter procedure Kedar BOATENG Work Phone: [facility] Comment on above: Acute non-recurrent maxillary sinusitis (Primary Dx); Sore throat Start: 12-21-2024 End: 12-21-2024 ambulatory KEDAR VARELA Facility:[facility] Start: 12-18-2024 End: 12-18-2024 Telephone encounter Qian Hillman MD Work Phone: OB/Gynecology Comment on above: Patient Question (Qu estions before apt 12/19) Start: 12-18-2024 End: 12-18-2024 Patient encounter procedure Silvia Tucker MD Work Phone: Rheumatology Comment on above: SO-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); Immunosuppression (HCC) Start: 12-18-2024 End: 12-18-2024 [facility] Facility:[facility] Start: 11-24-2024 End: 01-24-2025 Follow-up encounter Madhu Grande MD Work Phone: [facility] Start: 11-23-2024 End: 11-23-2024 [facility] Facility:[facility] Start: 11-23-2024 End: 11-26-2024 Telephone encounter Tiffanie [...] fever syndrome (HCC) Start: 11-22-2024 End: 11-22-2024 [facility] Facility:[facility] Start: 11-22-2024 End: 11-22-2024 Patient encounter procedure Kedar BOATENG Work Phone: [facility] Comment on above: Sore throat (Primary Dx); Exudative tonsillitis Start: 11-19-2024 End: 11-19-2024 ambulatory [facility] Facility:[facility] Start: 11-19-2024 End: 11-19-2024 Patient encounter procedure Rosaura Marylou ARECHIGA.TECHNICAL INTERN Work Phone: [facility] Comment on above: Pharyngitis, unspeci fied etiology (Primary Dx) Start: 11-09-2024 End: 11-09-2024 Emergency department patient visit Faustina Carcamo Facility:[facility] Start: 11-08-2024 End: 11-09-2024 ambulatory Diane Melendrez RN NURSE [employer] Comment on above: Bradycardia Start: 10-31-2024 End: 10-31-2024 [facility] Facility:[facility] Start: 10-31-2024 End: 10-31-2024 Office outpatient visit 25 minutes Nicholas Dorantes APRN.TECHNICAL INTERN Work Phone: [facility] Comment on above: Laceration of left [...] Faustina Carcamo MD Work Phone: Internal Medicine [place] Comment on above: Refill Request Start: 10-24-2024 End: 10-24-2024 Subsequent hospital visit by physician Paco [facility] Work Phone: Radiology Comment on above: Injury of left wrist , initial encounter [S69.92XA] Start: 10-24-2024 End: 10-24-2024 ambulatory [facility] Facility:[facility] Start: 10-24-2024 End: 10-24-2024 Patient encounter procedure Steven Harris APRN.TECHNICAL INTERN Work Phone: [facility] Comment on above: Injury of left wrist , initial encounter (Primary Dx) Start: 10-17-2024 End: 10-17-2024 [facility] Facility:[facility] Start: 10-16-2024 End: 10-16-2024 Office outpatient visit 25 minutes Faustina Carcamo MD Work Phone: Internal Medicine [place] Comment on above: Vitamin D deficiency (Primary Dx); Other fatigue; Myalgias; Polyarthritis; Muscle weakness (generalized); Abnormal TSH Start: 10-16-2024 End: 10-16-2024 [facility] Comment on above: SPP Inflammatory Con ditions - Medication Refill (Ilaris) Start: 09-25-2024 End: 11-25-2024 Follow-up encounter Rosaura Santacruz APRN.TECHNICAL INTERN Work Phone: [facility] Start: 09-25-2024 End: 09-25-2024 Patient encounter procedure Rosaura Santacruz SUPERVISOR FELLING BUCKING.TECHNICAL INTERN Work Phone: [facility] Comment on above: URI, acute (Primary Dx); Acute cough Start: 09-25-2024 End: 09-25-2024 [facility] Facility:[facility] Start: 09-25-2024 End: 09-25-2024 Subsequent hospital visit by physician Paco [facility] Work Phone: Radiology Comment on above: Acute cough [R05.1] Start: 09-13-2024 End: 09-13-2024 Specialty Pharm[facility] Comment on above: SPP Inflammatory Con ditions - Medication Refill (Ilaris) Start: 09-11-2024 End: 09-11-2024 ambulatory Moon Encinas APRN.TECHNICAL INTERN Work Phone: [facility] [place] Comment on above: Situational anxiety (Primary Dx) Start: 09-11-2024 End: 09-11-2024 Telemedicine consultation with patient Moon Encinas APRN.TECHNICAL INTERN Work Phone: [facility] [place] Start: 09-06-2024 End: 09-07-2024 Telephone encounter Faustina Carcamo MD Work Phone: [facility] [place] Comment on above: referral question Start: 08-26-2024 End: 08-27-2024 Refill Faustina Carcamo MD Work Phone: [facility] [place] Comment on above: Refill Request Start: 08-20-2024 End: 08-20-2024 Office outpatient visit 15 minutes Faustina Carcamo MD Work Phone: [facility] [place] Comment on above: PVC (premature ventr icular contraction) (Primary Dx); Panic attacks; Panic disorder with agoraphobia; PTSD (post-traumatic stress disorder); Postural orthostatic tachycardia syndrome (POTS); Pleurisy Start: 08-20-2024 End: 08-20-2024 ambulatory FAUSTINA CARCAMO Facility:[facility] Start: 08-02-2024 End: 08-02-2024 Specialty Pharm[facility] Comment on above: SPP Inflammatory Con ditions - Medication Refill (Ilaris) Start: 07-30-2024 End: 07-30-2024 Telemedicine consultation with patient Silvia Tucker MD Work Phone: Rheumatology Start: 07-30-2024 End: 07-30-2024 ambulatory Silvia Tucker MD Work Phone: Rheumatology Comment on above: Periodic fever syndr ome (HCC) (Primary Dx); SO-JILLIAN (systemic onset juvenile idiopathic arthritis) (HCC); Immunosuppression (HCC) Start: 07-27-2024 End: 07-27-2024 [facility] [address] Work Phone: Chronic Care Comment on above: Dietary counseling a nd surveillance (Primary Dx); Bulimia nervosa, unspecified severity; Eating disorder, unspecified type; Obesity, Class III, BMI 40-49.9 (morbid obesity) (HCC) Start: 07-25-2024 End: 07-25-2024 Telephone encounter Silvia Tucker MD Work Phone: Rheumatology Comment on above: Patient Question Start: 07-20-2024 End: 07-20-2024 Emergency department patient visit Faustina Carcamo Facility:[facility] Start: 07-19-2024 End: 07-19-2024 Telephone encounter Faustina Carcamo MD Work Phone: Internal [facility] [place] Comment on above: Patient Update; Medi cation Request Start: 07-11-2024 End: 07-11-2024 ambulatory [facility] Facility:[facility] Start: 07-11-2024 End: 07-11-2024 Office outpatient visit 25 minutes Devante Austin PA-C Work Phone: [facility] Comment on above: Acute recurrent sinu sitis, unspecified location (Primary Dx) Start: 07-04-2024 End: 07-04-2024 Patient encounter procedure Moon Encinas SUPERVISOR FELLING BUCKING.TECHNICAL INTERN Work Phone: Internal [facility] [place] Comment on above: Epigastric abdominal pain (Primary Dx); Heartburn Start: 07-04-2024 End: 07-04-2024 [facility] Facility:[facility] Start: 07-02-2024 End: 07-02-2024 Specialty Pharmacy [facility] Comment on above: SPP Inflammatory Con ditions - Medication Refill (Ilaris) Start: 06-14-2024 End: 06-14-2024 Telephone encounter Silvia Tucker MD Work Phone: Rheumatology Comment on above: Patient Update Start: 06-08-2024 End: 06-08-2024 ambulatory Genaro Morales APRN.SEAL MIXING OPERATOR Work Phone: [facility] [place] Comment on above: Periodic fever syndr ome (HCC) (Primary Dx); Pain in joint, multiple sites; Other chest pain; Palpitations SPP Inflammatory Con ditions - Medication Refill (Ilaris) Start: 06-08-2024 End: 06-08-2024 Telemedicine consultation with patient Genaro Morales SEAL MIXING OPERATOR Work Phone: Internal Medicine [place] Start: 06-07-2024 End: 06-07-2024 Emergency department patient visit Faustina Carcamo Facility:[facility] Start: 06-06-2024 End: 06-07-2024 ambulatory Silvia Tucker MD Work Phone: Rheumatology Comment on above: Flare Start: 05-15-2024 End: 05-15-2024 Specialty Pharmacy [facility] Comment on above: SPP Inflammatory Con ditions - Medication Refill (Ilaris) Start: 05-14-2024 End: 05-14-20[address] Nutrition therapy Rossy Cleveland RD Nutrition Therapy Comment on above: Assessment; Patient Education Start: 05-14-2024 End: 05-14-[address] Nutrition Therapy Start: 05-04-2024 End: 05-08-2024 Telephone encounter Faustina Carcamo MD Work Phone: [facility] [place] Comment on above: Orders (Adjustable R ollator) Start: 04-30-2024 End: 04-30-2024 Telephone encounter Faustina Carcamo MD Work Phone: Family [facility] [place] Comment on above: Orders Start: 04-30-2024 End: 04-30-2024 ambulatory FAUSTINA CARCAMO Facility:[facility] Start: 04-30-2024 End: 04-30-2024 Office outpatient visit 10 minutes Faustina Carcamo MD Work Phone: [facility] [place] Comment on above: Bilateral hip pain ( Primary Dx); Chronic pain of both knees; POTS (postural orthostatic tachycardia syndrome); Arthritis; Mobility poor Start: 04-24-2024 End: 04-24-2024 Refill Silvia Tucker MD Work Phone: [facility] Comment on above: Refill Request Start: 04-19-2024 End: 04-19-2024 ambulatory [facility] Start: 04-19-2024 End: 04-19-2024 Patient encounter procedure [facility] Comment on above: SPP Inflammatory Con ditions - Treatment Referral (Ilaris); Insurance Authorization ([place]?) Start: 04-17-2024 End: 04-18-2024 Refill Silvia Tucker MD Work Phone: Rheumatology Comment on above: Refill Request Start: 04-03-2024 End: 04-03-2024 Office outpatient visit 25 minutes Genaro Morales APRN.CNS Work Phone: [facility] [place] Comment on above: Vitamin D deficiency (Primary Dx); Class 3 severe obesity due to excess calories with body mass index (BMI) of 50.0 to 59.9 in adult, unspecified whether serious comorbidity present (HCC) Start: 04-03-2024 End: 04-06-2024 Refill Silvia Tucker MD Work Phone: Rheumatology Comment on above: Appointment Start: 04-02-2024 End: 04-02-2024 ambulatory [facility] Facility:[facility] Start: 04-02-2024 End: 04-02-2024 Subsequent hospital visit by physician Xr [facility] Work Phone: Radiology Comment on above: SO-JILLIAN (systemic ons et juvenile idiopathic arthritis) ([facility]) [M08.20] Start: 03-31-2024 End: 04-02-2024 ambulatory Silvia Tucker MD Work Phone: Rheumatology Comment on above: Question re: Pleuris y Start: 03-29-2024 Telephone encounter Ayaan mar APRN.CNM Work Phone: OB/Gynecology Comment on above: Orders (HPV) Start: 03-29-2024 End: 03-29-2024 ambulatory [facility] Facility:[facility] Start: 03-29-2024 End: 03-29-2024 Nursing evaluation of patient and report Nurse Italian Teacher [facility] Work Phone: OB/Gynecology Comment on above: Need for prophylacti c vaccination/inoculation against viral disease (Primary Dx) Start: 03-20-2024 E-mail encounter evelina Zambrano DO Work Phone: Cardiology Start: 03-20-2024 Patient encounter procedure Selma Cheng Taylorquitabayron DO Work Phone: Cardiology Comment on above: Appointment Start: 03-19-2024 ambulatory Silvia chong MD Work Phone: Rheumatology Comment on above: Medicaid Information for [place] Start: 03-15-2024 End: 03-15-2024 ambulatory [facility] Facility:[facility] Start: 03-15-2024 End: 03-15-2024 Patient encounter procedure Karen Jenkins MD Work Phone: OB/Gynecology Comment on above: Cervical high risk H PV (human papillomavirus) test positive (Primary Dx); Nonavalent human papilloma virus (HPV) vaccine for HPV types 6, 11, 16, 18, 31, 33, 45, 52, and 58 administered Start: 03-12-2024 Telephone encounter Nani chapin APRNFATIMAH Work Phone: OB/Gynecology Comment on above: Results; Colposcopy Start: 03-12-2024 End: 03-12-2024 Patient encounter procedure Silvia Tucker MD Work Phone: Rheumatology Comment on above: SO-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); Immunosuppression (HCC); Vitamin D deficiency Start: 03-12-2024 End: 03-12-2024 ambulatory SILVIA TUCKER Facility:[facility] Start: 02-27-2024 End: 02-27-2024 Patient encounter procedure Ayaan Rowley APRN.CNM Work Phone: OB/Gynecology Comment on above: Encounter for gyneco logical examination (general) (routine) without abnormal findings (Primary Dx); Screening for cervical cancer; Encounter for screening for human papillomavirus (HPV); Cervical high risk human papillomavirus (HPV) DNA test positive; Pelvic pain in female Start: 02-27-2024 End: 02-27-2024 Patient encounter status Ayaan Rowley SUPERVISOR FELLING BUCKING.CNM Work Phone: [facility] Start: 02-27-2024 End: 02-27-2024 ambulatory [facility] Facility:[facility] Start: 02-27-2024 Encounter for gynecological examination (general) (routine) without abnormal findings AYAAN ROWLEY [facility] Start: 02-13-[address] MD Work Phone: Allergy Comment on above: lab results Start: 02-13-2024 E-mail encounter fro m caregiver Isela Street MD Work Phone: Allergy Start: 02-09-2024 End: 02-09-2024 ambulatory [facility] Facility:[facility] Start: 01-17-2024 End: 01-17-2024 Patient encounter procedure [...] End: 12-14-2023 Patient encounter procedure Anton Landin APRN.TECHNICAL INTERN Work Phone: [facility] Comment on above: Diarrhea, unspecifie [...] End: 10-27-2023 Patient encounter procedure Qian Pena APRN.TECHNICAL INTERN Work Phone: Cardiology Comment on above: POTS (postural ortho static tachycardia syndrome) (Primary Dx) Start: 10-24-2023 End: 10-24-2023 ambulatory Faustina Carcamo MD Work Phone: [facility] [place] Comment on above: Latex allergy (Prima ry Dx); Vitamin D deficiency; Elevated TSH; Inappropriate sinus node tachycardia (HCC) Start: 10-24-2023 End: 10-24-2023 Telemedicine consultation with patient Faustina Carcamo MD Work Phone: [facility] Start: 10-14-2023 End: 10-14-2023 Subsequent hospital visit by physician Xr [facility] [place] Work Phone: Radiology Comment on above: Chronic left shoulde r pain [M25.512, G89.29] Start: 10-14-2023 End: 10-14-2023 Office outpatient visit 15 minutes Genaro Moralesfiliberto CLAUDIOSEAL MIXING OPERATOR Work Phone: Internal Medicine [place] Comment on above: Screen for STD (sexu ally transmitted disease) (Primary Dx); Chronic left shoulder pain Start: 09-23-2023 Refill Silvia chong MD Work Phone: Rheumatology Comment on above: Refill Request Start: 08-19-2023 End: 08-19-2023 ambulatory Rob Toledo PA-C Work Phone: Neurology Comment on above: Atypical facial pain (Primary Dx); Chronic migraine without aura, with intractable migraine, so stated, with status migrainosus Start: 08-19-2023 End: 08-19-2023 Telemedicine consultation with patient Rob Toledo PA-C Work Phone: [facility] Start: 07-28-2023 Refill Silvia chong MD Work Phone: Rheumatology/Pulmona ry Start: 07-25-2023 End: 07-25-2023 ambulatory Ultrasound Stro Work Phone: OB/Gynecology Start: 07-25-2023 End: 07-25-2023 Patient encounter procedure Ultrasound Italian Teacher [facility] Work Phone: [facility] Start: 07-22-2023 End: 07-22-2023 Office outpatient visit 15 minutes Joe Contreras MD Work Phone: OB/Gynecology Comment on above: Pelvic pain in femal e (Primary Dx) Start: 07-06-2023 ambulatory Patompong Nghia chong MD Work Phone: Rheumatology/Pulmona ry Comment on above: Regarding lab tests Start: 07-02-2023 ambulatory Patompong Nghia chong MD Work Phone: Rheumatology/Pulmona ry Comment on above: Labs Question Start: 06-23-2023 Refill Genaro RICCISEAL MIXING OPERATOR Work Phone: [facility] [place] Comment on above: Refill Request Start: 06-21-2023 Telephone encounter Yair membreno MD Work Phone: Neurology Comment on above: Patient Question Start: 06-06-2023 End: 06-06-2023 Orders Only Patsy BOATENG-C Work Phone: [facility] Comment on above: Upper back pain (Eleanor yony Dx) Upper back pain (Eleanor yony Dx); Other acute gastritis without hemorrhage; Fever, unspecified fever cause Upper back pain [M54 .9] Start: 05-31-2023 End: 06-01-2023 ambulatory PATOMPONG UNGPRASERT Facility:[facility] Start: 05-25-2023 End: 05-25-2023 ambulatory Gonzalez Reyes PA-C Work Phone: Telemedicine Comment on above: Acute cystitis witho ut hematuria (Primary Dx) Start: 05-20-2023 End: 05-20-2023 Office outpatient visit 25 minutes Genaro Morales APRN.SEAL MIXING OPERATOR Work Phone: Internal Medicine [place] Comment on above: Other migraine witho ut status migrainosus, intractable (Primary Dx); Abnormal EKG; POTS (postural orthostatic tachycardia syndrome); Elevated TSH Start: 05-19-2023 Telephone encounter Faustina regan MD Work Phone: Internal Medicine [place] Comment on above: Patient Question Start: 05-19-2023 End: 05-19-2023 Emergency department patient visit JONATHAN NIEVES Facility:[facility] Start: 04-25-2023 End: 04-25-2023 ambulatory Yair Lyons MD Work Phone: Neurology Comment on above: Intractable chronic migraine without aura and without status migrainosus (Primary Dx) Start: 04-25-2023 End: 04-25-2023 Telemedicine consultation with patient Yair Lyons MD Work Phone: [facility] Start: 04-21-2023 Refill Yair de los santos MD Work Phone: Neurology Comment on above: Refill Request Start: 04-18-2023 End: 04-18-2023 ambulatory Aki Jiménez SUPERVISOR FELLING BUCKING.TECHNICAL INTERN Work Phone: Telemedicine Comment on above: Treatment not availa ble (Primary Dx) Laryngitis (Primary Dx); Cough, unspecified type Start: 04-18-2023 End: 04-18-2023 Telemedicine consultation with patient Aki Jiménez SUPERVISOR FELLING BUCKING.TECHNICAL INTERN Work Phone: [facility] Start: 04-12-2023 ambulatory [facility] Comment on above: [employer]em[employer] insurance ap proval - action required Refill Request Start: 04-12-2023 E-mail encounter fro m caregiver [facility] Provider [facility] Start: 04-06-2023 Refill Patjd chong MD Work Phone: Rheumatology Comment on above: SPP Inflammatory Con ditions - Treatment Referral (Actemra); Insurance Authorization (PA submitted) Start: 03-29-2023 ambulatory Patjd chong MD Work Phone: Rheumatology/Pulmona ry Comment on above: Labs and update Start: 03-29-2023 E-mail encounter fro m caregiver Silvia Tucker MD [facility] Start: 03-25-2023 End: 03-26-2023 ambulatory PATOMPONG MONTEZPRASERT Facility:[facility] Start: 03-10-2023 Telephone encounter Patompong Ungprasert MD Work Phone: Rheumatology Comment on above: Patient Question (Ap peal ); Medication Preauthorization Start: 03-02-2023 ambulatory Patjd chong MD Work Phone: Rheumatology Comment on above: Flare Start: 02-25-2023 End: 02-25-2023 Patient encounter procedure Ayaan Rowley SUPERVISOR FELLING BUCKING.CNM Work Phone: OB/Gynecology Comment on above: Encounter for gyneco logical examination (general) (routine) without abnormal findings (Primary Dx); Screening for STD (sexually transmitted disease) Start: 02-25-2023 End: 02-25-2023 Patient encounter status Ayaan Rowley SUPERVISOR FELLING BUCKING.CNM Work Phone: [facility] Start: 02-16-2023 Refill Patjd chong MD Work Phone: Rheumatology Comment on above: Refill Request Medication Authoriza tion Start: 02-07-2023 End: 02-07-2023 Patient encounter procedure Kedar BOATENG Work Phone: [facility] Comment on above: Sore throat (Primary Dx); Acute otitis media, left Start: 01-12-2023 Telephone encounter Silvia Tucker MD Work Phone: Rheumatology Comment on above: Insurance Authorizat ion Start: 12-17-2022 End: 12-17-2022 Office outpatient visit 40 minutes Faustina Carcamo MD Work Phone: Internal Medicine [place] Comment on above: PTSD (post-traumatic stress disorder) (Primary Dx); Migraine with aura and without status migrainosus, not intractable; POTS (postural orthostatic tachycardia syndrome); Periodic fever syndrome (HCC); Pain in joint, multiple sites; Panic disorder with agoraphobia; Irritable bowel syndrome with both constipation and diarrhea Start: 12-16-2022 Telephone encounter Faustina regan MD Work Phone: Internal Medicine [place] Comment on above: new form coming from [employer] Start: 12-15-2022 Telephone encounter Faustina regan MD Work Phone: Internal Medicine [place] Comment on above: requesting copy of f orm faxed earlier Start: 12-09-2022 ambulatory Faustina de los santos MD Work Phone: [facility] Start: 12-09-2022 Follow-up encounter Faustina regan MD Work Phone: Internal Medicine [place] Comment on above: ADA Follow Up Start: 12-09-2022 Telephone encounter Faustina regan MD Work Phone: Family Medicine [place] Comment on above: Letter (Needs letter for work.) Start: 12-03-2022 End: 12-03-2022 Patient encounter procedure Silvia Tucker MD Work Phone: Rheumatology Comment on above: Periodic fever syndr ome (HCC) (Primary Dx); Immunosuppression (HCC) Start: 11-17-2022 Telephone encounter Faustina regan MD Work Phone: Internal Medicine [place] Comment on above: Forms Start: 11-10-2022 End: 11-10-2022 ambulatory Faustina Carcamo MD Work Phone: Internal Medicine [place] Comment on above: Costochondritis (Eleanor yony Dx) Start: 11-10-2022 End: 11-10-2022 Telemedicine consultation with patient Faustina Carcamo MD Work Phone: [facility] Start: 10-18-2022 End: 10-18-2022 Office outpatient visit 15 minutes Faustina Carcamo MD Work Phone: Internal Medicine [place] Comment on above: High serum high dens ity lipoprotein (HDL) (Primary Dx); POTS (postural orthostatic tachycardia syndrome); Inappropriate sinus node tachycardia; Periodic fever syndrome (HCC) Start: 09-20-2022 ambulatory MIRIAM Stevens ty:[facility] Start: 09-20-2022 End: 09-20-2022 Office outpatient new 45 minutes Miriam Ortiz MD Work Phone: [facility] Comment on above: Dog bite, initial en counter (Primary Dx) Start: 09-16-2022 Telephone encounter Silvia Tucker MD Work Phone: Rheumatology Comment on above: Medication Authoriza tion (Ilaris ) Start: 09-14-2022 ambulatory Faustina de los santos MD Work Phone: Internal Medicine [place] Comment on above: ADA Paperwork Start: 09-01-2022 End: 09-01-2022 ambulatory Yair Lyons MD Work Phone: Neurology Comment on above: Chronic migraine wit hout aura, with intractable migraine, so stated, with status migrainosus (Primary Dx) Start: 09-01-2022 End: 09-01-2022 Telemedicine consultation with patient Yair Lyons MD Work Phone: [facility] Start: 08-12-2022 Telephone encounter Isis sampson [facility] Work Phone: Adult Psychology Comment on above: Behavioral Health So cial Work Refill Request Start: 08-11-2022 End: 08-11-2022 Office outpatient visit 40 minutes Faustina Carcamo MD Work Phone: Internal Medicine [place] Comment on above: Obsessive-compulsive disorder, unspecified type [...] End: 07-29-2022 ambulatory MASS IMMUNIZATION PROVIDER [facility] Start: 07-15-2022 ambulatory Ayaan de los santos APRN.CNM Work Phone: OB/Gynecology Comment on above: Fluconazole- Differe nt Pharmacy Start: 07-14-2022 End: 07-14-2022 Patient encounter procedure Ayaan Rowley SUPERVISOR FELLING BUCKING.CNM Work Phone: OB/Gynecology Comment on above: Pelvic pain in femal e (Primary Dx); Screen for STD (sexually transmitted disease); Surveillance of previously prescribed intrauterine contraceptive device Start: 06-28-2022 ambulatory MARINA Hidalgo TAVON Stevens ty:[facility] Start: 06-28-2022 End: 06-28-2022 Subsequent hospital visit by physician Marina Goodrich SUPERVISOR FELLING BUCKING-TECHNICAL INTERN Work Phone: [facility] [place] Comment on above: Arrived Start: 06-28-2022 ambulatory MARINA Gwen TAVON Stevens ty:[facility] Start: 06-28-2022 End: 06-28-2022 Office outpatient visit 15 minutes Marina Goodrich APRN-TECHNICAL INTERN Work Phone: [facility] [place] Comment on above: RLQ abdominal pain ( Primary Dx) Start: 06-14-2022 Refill Patjd chong MD Work Phone: Rheumatology Start: 06-03-2022 End: 06-03-2022 ambulatory Wilbert Charles APRN.TECHNICAL INTERN Work Phone: Internal Medicine [place] Comment on above: Acute cough (Primary Dx); Shortness of breath; Wheezing Start: 06-03-2022 End: 06-03-2022 Telemedicine consultation with patient Wilbert Araceli CLAUDIOTECHNICAL INTERN Work Phone: [facility] Start: 05-26-2022 ambulatory SUHAIL Stevens ty:[facility] Start: 05-05-2022 ambulatory CASEY KERN Facilit y:[facility] Start: 05-05-2022 End: 05-05-2022 Office outpatient visit 15 minutes Casey Kern MD Work Phone: [facility] [place] Comment on above: Concussion without l oss of consciousness, subsequent encounter (Primary Dx) Start: 05-02-2022 End: 05-03-2022 ambulatory OVI HERRERA [facility] Start: 05-02-2022 End: 05-02-2022 Office outpatient new 45 minutes Ovi Herrera DO Work Phone: [facility] Comment on above: Closed head injury, initial encounter (Primary Dx); Contusion of scalp, initial encounter; Abrasion; Fall, initial encounter; Injury of right ankle, initial encounter; Sprain of right ankle, unspecified ligament, initial encounter Start: 04-21-2022 ambulatory DHANU R MINGO Facility:[facility] Start: 04-16-2022 ambulatory SELF SELF Facility:[facility] Start: 04-16-2022 End: 04-16-2022 Office outpatient new 45 minutes [facility] R Mingo MBBS Work Phone: [facility] [place] Comment on above: Migraine without sta tus migrainosus, not intractable, unspecified migraine type (Primary Dx); IUD check up; Morbid obesity; Periodic fever syndrome Start: 04-12-2022 Refill Yair de los santos MD Work Phone: Neurology Comment on above: Refill Request Start: 04-07-2022 Telephone encounter Mikel Solorio MD Work Phone: Dermatology Comment on above: Appointment Start: 04-06-2022 Specialty Pharmacy [facility] Comment on above: SPP Inflammatory [...] 02-27-2022 End: 02-27-2022 Patient encounter procedure Mert WALLER Work Phone: Psychology Comment on above: Moderate anxiety (Pr imary Dx); Moderate episode of recurrent major depressive disorder (HCC) Start: 02-25-2022 Refill Silvia chong MD Work Phone: [facility] Comment on above: Refill Request Start: 02-23-2022 Chart abstracting Mert Nikki ALTERNATIVE DISPUTE RESOLUTION MEDIATOR Work Phone: Psychology Comment on above: Consult ([facility] Pt Out reach F/U) Start: 02-21-2022 Chart abstracting Mert Nikki ALTERNATIVE DISPUTE RESOLUTION MEDIATOR Work Phone: Psychology Comment on above: Consult Start: 02-19-2022 ambulatory Ramin Connollyluis [facility] CC F [facility] Start: 02-19-2022 Patient encounter [facility] Comment on above: SPP Inflammatory Con ditions - Treatment Referral (Ilaris) Start: 02-18-2022 Refill Patjd chong MD Work Phone: Rheumatology Comment on above: Refill Request Start: 01-20-2022 Telephone encounter Rosaura holbrook SUPERVISOR FELLING BUCKING.CNM Work Phone: OB/Gynecology Comment on above: Results Start: 01-20-2022 End: 01-20-2022 Subsequent hospital visit by physician [facility] Work Phone: Radiology Comment on above: Intrauterine contrac eptive device threads lost, initial encounter [T83.32XA] Start: 01-16-2022 Refill Genaro RICCISEAL MIXING OPERATOR Work Phone: Internal Medicine [place] Comment on above: Refill Request Start: 01-13-2022 End: 01-13-2022 Patient encounter procedure Ayaan Rowley APRN.CNM Work Phone: OB/Gynecology Comment on above: Surveillance of prev iously prescribed intrauterine contraceptive device (Primary Dx); Intrauterine contraceptive device threads lost, initial encounter Start: 01-07-2022 Refill Silvia chong MD Work Phone: Rheumatology Comment on above: Refill Request Start: 01-05-2022 End: 01-05-2022 Patient encounter procedure Genaro Morales APRN.SEAL MIXING OPERATOR Work Phone: Internal Medicine [place] Comment on above: COVID-19 (Primary Dx ); POTS (postural orthostatic tachycardia syndrome); Chest wall discomfort Start: 12-25-2021 ambulatory Faustina de los santos MD Work Phone: Internal Medicine [place] Comment on above: Covid Start: 12-04-2021 End: 12-04-2021 Patient encounter procedure Ayaan Rowley SUPERVISOR FELLING BUCKING.CNM Work Phone: OB/Gynecology Comment on above: Encounter for IUD in sertion (Primary Dx) Start: 11-28-2021 Refill Faustina de los santos MD Work Phone: Internal Medicine [place] Comment on above: Refill Request Start: 11-24-2021 [...] patient Yair Lyons MD Work Phone: [facility] Start: 11-12-2021 Refill Ayaan Harrygwen de los santos SUPERVISOR FELLING BUCKING.CNM Work Phone: OB/Gynecology Comment on above: Refill Request Start: 10-14-2021 End: 10-14-2021 Subsequent hospital visit by physician Mri [facility] (I-Stat/1.5t) Work Phone: Radiology Comment on above: No Show Start: 10-12-2021 ambulatory Elias Flores DPM Work Phone: Podiatry Comment on above: Prior Auth Paperwork Start: 09-22-2021 End: 09-22-2021 Patient encounter procedure Faustina Carcamo MD Work Phone: Internal Medicine [place] Comment on above: Left ankle strain, s equela (Primary Dx); Chronic pain of left ankle; History of influenza Start: 09-16-2021 End: 09-16-2021 Subsequent hospital visit by physician Xr [facility] [place] Work Phone: Radiology Comment on above: Left ankle pain, uns pecified chronicity [M25.572] Start: 08-05-2021 End: 08-05-2021 Subsequent hospital visit by physician Xr [facility] [place] Work Phone: Radiology Comment on above: Acute left ankle skip n [M25.572] Start: 01-07-2021 End: 01-07-2021 Subsequent hospital visit by physician X[facility] [place] Work Phone: Radiology Comment on above: Left wrist pain [M25 .532] Start: 07-17-2020 End: 07-17-2020 Subsequent hospital visit by physician Ct [facility] [place] (I-Stat) Work Phone: Radiology Comment on above: Chronic sinusitis, u nspecified location [J32.9] Start: 06-05-2020 End: 06-05-2020 Subsequent hospital visit by physician Xr [facility] [place] Work Phone: Radiology Comment on above: Cough [R05] Procedures Date Procedure Procedure Detail Performing Clinician Start: 12-21-2024 STREP A MOLECULAR (POC) Steven Harris APRN.TECHNICAL INTERN Work Phone: Start: 11-22-2024 STREP A MOLECULAR (POC) Kedar BOATENG Work Phone: Start: 11-19-2024 STREP A MOLECULAR (POC) Rosaura Santacruz APRN.TECHNICAL INTERN Work Phone: Start: 10-24-2024 Radex wrist complete minimum 3 views Steven Harris APRN.TECHNICAL INTERN Work Phone: Start: 09-25-2024 Radiologic exam ches t 2 views Rosaura Santacruz APRN.TECHNICAL INTERN Work Phone: Start: 04-02-2024 Radiologic exam ches t 2 views Silvia Tucker MD Work Phone: Start: 03-15-2024 UA DIP,URINE HCG (POC) Karen Jenkins MD Work Phone: Start: 10-14-2023 Radex shoulder compl ete minimum 2 views Genaro Morales SUPERVISOR FELLING BUCKING.SEAL MIXING OPERATOR Work Phone: Start: 07-25-2023 Us pelvic nonobstetr ic real-time image complete Joe Contreras MD Work Phone: Start: 06-06-2023 Radiologic exam ches t 2 views Patsy Mobley PA-C Work Phone: Start: 02-25-2023 BACTERIAL VAGINOSIS NAAT Ayaan Rolwey SUPERVISOR FELLING BUCKING.CNM Work Phone: Start: 02-25-2023 Iadna trichomonas va ginalis amplified probe tech Ayaan Harryts SUPERVISOR FELLING BUCKING.CNM Work Phone: Start: 07-14-2022 BACTERIAL VAGINOSIS AMPLIFICATION Ayaan Plotts SUPERVISOR FELLING BUCKING.CNM Work Phone: Start: 07-14-2022 Iadna chlamydia trac homatis amplified probe tq Ayaan Rowley SUPERVISOR FELLING BUCKING.CNM Work Phone: Start: 06-28-2022 Ct abdomen & pelvis w/contrast material Marina Goodrich SUPERVISOR FELLING BUCKING-TECHNICAL INTERN Work Phone: Start: 06-28-2022 End: 06-28-2022 Blood count complete auto&auto difrntl wbc Marina Goodrich SUPERVISOR FELLING BUCKING-TECHNICAL INTERN Work Phone: Start: 06-28-2022 End: 06-28-2022 Urnls dip stick/tablet rgnt auto w/o microscopy Marina Goodrich SUPERVISOR FELLING BUCKING-TECHNICAL INTERN Work Phone: Start: 01-20-2022 Us transvaginal Bianca Rowley SUPERVISOR FELLING BUCKING.CNM Work Phone: Start: 12-04-2021 Urine test visual color cmprsn meths Ayaan Rowley SUPERVISOR FELLING BUCKING.CNM Work Phone: Start: 09-16-2021 Radex ankle complete minimum 3 views Irwin Campbell MD Work Phone: Start: 08-05-2021 Radex ankle complete minimum 3 views Rosaura Marylou SUPERVISOR FELLING BUCKING.TECHNICAL INTERN Work Phone: Start: 01-07-2021 Radex shoulder compl ete minimum 2 views Shea Coates PAHaim Work Phone: Start: 10-20-2020 Microscopic observat ion [Identifier] in Cervix by Cyto stain Marina Goodrich SUPERVISOR FELLING BUCKING-TECHNICAL INTERN Work Phone: Start: 07-17-2020 Ct maxillofacial w/o contrast material Jerry Keating MD Work Phone: Start: 06-05-2020 Radiologic exam ches t 2 views Gonzalez Reyes PA-C Work Phone: Plan of Treatment Date Care Activity Detail Author Start: 10-31-2034 Urine microalbumin profile DTaP,Tdap,Td Vaccine (9 - Td or Tdap) [facility] Start: 03-08-2029 Tetanus vaccination [facility] Start: 03-08-2029 Urine microalbumin profile [facility] Start: 02-26-2028 HPV TESTING HPV TESTING [facility] Start: 02-26-2028 PAP TESTING PAP TESTING [facility] Start: 02-26-2028 Screening for malignant neoplasm of cervix [facility] Start: 02-21-2026 End: 02-21-2026 Patient encounter procedure 02/21/2026 2:30 PM EDT Office Visit OB/Gynecology [address] [place], [place] [id number] Michelle Rojas APRN.TECHNICAL INTERN [address] [place] [address] Annual OB/Gynecology Comment on above: Annual Start: 10-20-2025 PAP TESTING PAP TESTING [facility] Start: 07-15-2025 End: 07-15-2025 Patient encounter procedure 07/15/2025 10:40 AM EST Office Visit Rheumatology [address] [place] [address] Silvia Tucker MD [address] [place] [address] follow up Rheumatology Comment on above: follow up Start: 06-19-2025 End: 06-19-2025 Patient encounter procedure 06/19/2025 3:20 PM EST Office Visit Internal Medicine [place] [address] [place] [address] Faustina Carcamo MD [address] [place] [address] 3 month follow up Internal Medicine [place] Comment on above: 3 month follow up Start: 04-15-2025 Influenza vaccination Influenza Vaccine (#1) [facility] Start: 03-18-2025 End: 03-18-2025 Patient encounter procedure 03/18/2025 4:40 PM EDT Office Visit Internal Medicine [place] [address] [place] [address] Faustina Carcamo MD [address] [facility] [place], [place] [id number] 6 mon follow up Internal Medicine [place] Comment on above: 6 mon follow up Start: 03-01-2025 End: 03-01-2025 Specialty Pharmacy 03/01/2025 8:00 AM EDT Specialty Pharmacy [facility] [address] [place], [place] [id number] [address] Pharmacist, [facility] [address] [place] [phone] REFILL Ilaris - PAx 03/27/25 - 03/12 [facility] Comment on above: REFILL Ilaris - PAx 03/27/25 - 03/12 Start: 02-27-2025 End: 02-27-2025 Patient encounter procedure Allergy Comment on above: latex allergy 6 mon follow up Start: 02-26-2025 Screening for malignant neoplasm of cervix Cervical Cancer Screening [facility] Start: 02-26-2025 End: 02-26-2025 Patient encounter procedure 02/26/2025 9:30 AM EDT Office Visit OB/Gynecology [address] [place], [place] [phone] Michelle Rojas APRN.TECHNICAL INTERN [address] [place] [address] annual private branch exchange repairer exam OB/Gynecology Comment on above: annual private branch exchange repairer exam Start: 02-13-2025 End: 02-13-2025 Patient encounter procedure 02/13/2025 2:00 PM EDT Office Visit Internal Medicine [place] [address] [place] [address] Faustina Carcamo MD [address] [place] [address] 6 mon follow up Internal Medicine [place] Comment on above: 6 mon follow up Start: 02-04-2025 End: 02-04-2025 Specialty Pharmacy 02/04/2025 8:00 AM EDT Specialty Pharmacy [facility] [address] [place] [phone] Pharmacist, [facility] [address] [place] [address] [place] [address] REFILL Ilaris - PAx 03/27/25 - ND 02/12-lvm 01/31 [facility] Comment on above: REFILL Ilaris - PAx 03/27/25 - ND 02/12-l vm 01/31 Start: 01-31-2025 End: 01-31-2025 Specialty Pharmacy 01/31/2025 8:15 AM EDT Specialty Pharmacy [facility] [address] [place] [phone] Pharmacist, [facility] [address] [place] [address] [place] [address] REFILL Ilaris - PAx 03/27/25 - ND 02/12 [facility] Comment on above: REFILL Ilaris - PAx 03/27/25 - ND 02/12 Start: 01-22-2025 End: 01-22-2025 Patient encounter procedure 01/22/2025 4:00 PM EDT Office Visit Rheumatology [address] [place] [address] Silvia Tucker MD [address] [place] [address] follow up Rheumatology Comment on above: follow up Start: 01-03-2025 End: 01-03-2025 Specialty Pharmacy 01/03/2025 8:00 AM EDT Specialty Pharmacy [facility] [address] [place], [place] [address] [place] [address] Pharmacist, [facility] [address] [place] [phone] REFILL Ilaris - PAx 03/27/25 - 01/15 [facility] Comment on above: REFILL Ilaris - PAx 03/27/25 - 01/15 Start: 01-01-2025 End: 01-01-2025 Patient encounter procedure 01/01/2025 9:05 PM EDT Office Visit Neurology [address] [place], [place] [id number] MAXWELL (obstructive sleep apnea) [G47.33]; Class 3 [...] EDT Office Visit OB/Gynecology [address] [place] [address] Tiffanie Barrera APRN.TECHNICAL INTERN [address] [place] [address] annual-patient states her insurance has changed and would like her annual completed sooner OB/Gynecology Comment on above: annual-patient states her insurance has changed and would like her annual completed sooner Start: 12-21-2024 End: 12-21-2024 Patient encounter procedure 12/21/2024 2:45 PM EDT Office Visit OB/Gynecology [address] [place], [place] [phone] Tiffanie Barrera APRN.TECHNICAL INTERN [address] [place] [address] annual-patient states her insurance has changed and would like her annual completed sooner OB/Gynecology Comment on above: annual-patient states her insurance has changed and would like her annual completed sooner Start: 12-19-2024 End: 12-19-2024 Patient encounter procedure 12/19/2024 3:40 PM EDT Office Visit OB/Gynecology [address] [place] [address] Qian Hillman MD [address] [place] [address] endosee/ IUD removal OB/Gynecology Comment on above: endosee/ IUD removal Start: 12-18-2024 End: 03-19-2025 C reactive protein [Mass/volume] in Serum or Plasma [facility] Comment on above: Expected: 12/18/2024, Expires: Start: 12-18-2024 End: 03-19-2025 CBC W Auto Differential panel - Blood [facility] Work Phone: Comment on above: Expected: 12/18/2024, Expires: Start: 12-18-2024 End: 03-19-2025 Erythrocyte sedimentation rate [facility] Comment on above: Expected: 12/18/2024, Expires: Start: 12-18-2024 End: 12-18-2024 Patient encounter procedure 12/18/2024 8:20 AM EDT Office Visit Rheumatology [address] [facility] [place] [address] Silvia Tucker MD [address] [place] [address] f/u earlier apt Rheumatology Comment on above: f/u earlier apt Start: 12-13-2024 End: 12-13-2024 Patient encounter procedure 12/13/2024 9:00 AM EDT Office Visit OB/Gynecology [address] [place] [address] Fredy Diaz MD [address] [place] [address] endosee/ IUD removal OB/Gynecology Comment on above: endosee/ IUD removal Start: 12-12-2024 End: 12-12-2024 Patient encounter procedure 12/12/2024 2:45 PM EDT Office Visit OB/Gynecology [address] [place] [address] Tiffanie Barrera APRN.TECHNICAL INTERN [address] [place] [address] annual-patient states her insurance has changed and would like her annual completed sooner OB/Gynecology Comment on above: annual-patient states her insurance has changed and would like her annual completed sooner Start: 12-06-2024 End: 12-06-2024 Specialty Pharmacy 12/06/2024 8:00 AM EDT Specialty Pharmacy [facility] [address] [place] [address] AC4[address] [place] [address] Pharmacist, [facility] [address] [place] [address] [place] [address] REFILL Ilaris - PAx 03/27/25 - 12/18 [facility] Comment on above: REFILL Ilaris - PAx 03/27/25 - 12/18 Start: 11-22-2024 End: 11-22-2024 Follow-up encounter 11/22/2024 4:40 PM EDT [facility] Rheumatology/Pulmonary [address] [place] [address] Silvia Tucker MD [address] [place] [address] follow up Rheumatology/Pulmona ry Comment on above: follow up Start: 11-22-2024 End: 11-22-2024 Patient encounter procedure 11/22/2024 4:40 PM EDT Office Visit Rheumatology/Pulmonary [address] [place] [address] Silvia Tucker MD [address] [place] [address] follow up Rheumatology/Pulmona ry Comment on above: follow up Start: 11-22-2024 End: 02-21-2025 C reactive protein [Mass/volume] in Serum or Plasma C-REACTIVE PROTEIN Lab Routine SO-JILLIAN (systemic onset juvenile idiopathic arthritis) (HCC) Periodic fever syndrome (HCC) Expected: 11/22/2024, Expires: 02/21/2025 [facility] Comment on above: Expected: 11/22/2024, Expires: Start: 11-22-2024 End: 02-21-2025 CBC W Auto Differential panel - Blood COMPLETE BLOOD COUNT AND DIFFERENTIAL Lab Routine SO-JILLIAN (systemic onset juvenile idiopathic arthritis) (HCC) Periodic fever syndrome (HCC) Expected: 11/22/2024, Expires: 02/21/2025 [facility] Comment on above: Expected: 11/22/2024, Expires: Start: 11-22-2024 End: 02-21-2025 Creatinine and Glomerular filtration rate.predicted panel - Serum, Plasma or Blood CREATININE BLD Lab Routine SO-JILLIAN (systemic onset juvenile idiopathic arthritis) (HCC) Periodic fever syndrome (HCC) Expected: 11/22/2024, Expires: 02/21/2025 [facility] Work Phone: Comment on above: Expected: 11/22/2024, Expires: Start: 11-22-2024 End: 02-21-2025 Erythrocyte sedimentation rate SEDIMENTATION RATE, WESTERGREN Lab Routine SO-JILLIAN (systemic onset juvenile idiopathic arthritis) (HCC) Periodic fever syndrome (HCC) Expected: 11/22/2024, Expires: 02/21/2025 [facility] Comment on above: Expected: 11/22/2024, Expires: Start: 11-22-2024 End: 02-21-2025 Hepatic function 2000 panel - Serum or Plasma HEPATIC FUNCTION PNL Lab Routine SO-JILLIAN (systemic onset juvenile idiopathic arthritis) (HCC) Periodic fever syndrome (HCC) Expected: 11/22/2024, Expires: 02/21/2025 [facility] Comment on above: Expected: 11/22/2024, Expires: Start: 11-22-2024 End: 02-21-2025 Heterophile Ab [Presence] in Serum by Latex agglutination MONOTEST, INFECTIOUS MONO Lab Routine Sore throat Exudative tonsillitis Expected: 11/22/2024, Expires: 02/21/2025 [facility] Work Phone: Comment on above: Expected: 11/22/2024, Expires: Start: 11-22-2024 End: 02-21-2025 Urea nitrogen [Mass/volume] in Serum or Plasma UREA NITROGEN Lab Routine SO-JILLIAN (systemic onset juvenile idiopathic arthritis) (HCC) Periodic fever syndrome (HCC) Expected: 11/22/2024, Expires: 02/21/2025 [facility] Comment on above: Expected: 11/22/2024, Expires: Start: 11-21-2024 End: 11-21-2024 Patient encounter procedure 11/21/2024 9:15 PM EDT Office Visit Neurology [address] [place] [address] MAXWELL (obstructive sleep apnea) [G47.33]; Class 3 [...] 3:40 PM EDT Office Visit Internal Medicine [place] [address] [place], [place] [address] Petra Beckman APRN.TECHNICAL INTERN [address] [place], [place] [address] follow up- fatigue Internal Medicine [place] Comment on above: follow up- fatigue Start: 11-15-2024 End: 11-15-2024 Patient encounter procedure 11/15/2024 3:30 PM EDT Office Visit Allergy [address] MD [address] [place], [place] [phone] latex allergy Allergy Comment on above: latex allergy Start: 11-08-2024 End: 11-08-2024 Specialty Pharmacy 11/08/2024 8:00 AM EDT Specialty Pharmacy [facility] [address] [place] [address] Pharmacist, [facility] [address] [place] [address] [place] [address] REFILL Ilaris - PAx 03/27/25 - ND 11/20 [facility] Comment on above: REFILL Ilaris - PAx 03/27/25 - ND 11/20 Start: 11-01-2024 End: 11-01-2024 Patient encounter procedure 11/01/2024 9:15 PM EDT Office Visit Neurology [address] [place] [address] MAXWELL (obstructive sleep apnea) [G47.33]; Class 3 [...] AM EST Specialty Pharmacy [facility] [address] [place] [address] Pharmacist, [facility] [address] [place] [phone] REFILL Ilaris - PAx 03/27/25 - 10/23-lvm 10/16 [facility] Comment on above: REFILL Ilaris - PAx 03/27/25 - 10/23-l vm 10/16 Start: 10-16-2024 End: 10-16-2024 Patient encounter procedure 10/16/2024 7:00 PM EST Office Visit Internal Medicine [place] [address] [place] [address] Faustina Carcamo MD [address] [place] [address] Severe fatigue and weakness Internal Medicine [place] Comment on above: Severe fatigue and weakness Start: 10-11-2024 End: 10-11-2024 Specialty Pharmacy 10/11/2024 8:00 AM EST Specialty Pharmacy [facility] [address] [place] [address] Pharmacist, [facility] [address] [place] [address] [place] [address] REFILL Ilaris - PAx 03/27/25 - ND 10/23 [facility] Comment on above: REFILL Ilaris - PAx 03/27/25 - 10/23 Start: 09-19-2024 End: 09-19-2024 Follow-up encounter 09/19/2024 9:00 AM EST [facility] Neurology [address] [place] [id number] Rob Toledo PA-C [address] [place] [address] Migraines and facial pain follow up Neurology Comment on above: Migraines and facial pain follow up Start: 09-14-2024 End: 09-14-2024 Follow-up encounter 09/14/2024 1:45 PM EST [facility] Nutrition Therapy [address] [place] [address] follow-up Nutrition Therapy Comment on above: follow-up Start: 09-13-2024 End: 09-13-2024 Specialty Pharmacy 09/13/2024 8:00 AM EST Specialty Pharmacy [facility] [address] [place], [place] [id number] [address] Pharmacist, [facility] [address] [place] [phone] REFILL Ilaris - PAx 03/27/25 - 09/25 [facility] Comment on above: REFILL Ilaris - PAx 03/27/25 - ND 09/25 Start: 09-08-2024 End: 09-08-2024 ambulatory 09/08/2024 8:45 AM EST Results Only [place] [facility] Draw Station [address] [place] [address] [place] [facility] Draw Station Start: 09-07-2024 End: 09-07-2024 Follow-up encounter 09/07/2024 2:30 PM EST [facility] [address] [address] Cindy Mac, RD [address] [place] [address] Follow-up Nutrition Therapy Comment on above: Follow-up Start: 08-21-2024 End: 08-21-2024 Patient encounter procedure 08/21/2024 7:45 AM EST OT/PT/Speech Visit [facility] [address] [place] [address] Hari Eastman, PT, DPT back pain [facility] Comment on above: back pain Start: 08-20-2024 End: 08-20-2024 Follow-up encounter 08/20/2024 5:20 PM EST [facility] Internal Medicine [place] [address] [place] [address] Faustina Carcamo MD [address] [place] [address] Follow up Internal Medicine [place] Comment on above: Follow up Start: 08-17-2024 End: 08-17-2024 Follow-up encounter 08/17/2024 1:45 PM EST [facility] Nutrition Therapy [address] [address] TheaDarrel Cindy, RD [address] [place] [address] Follow-up Nutrition Therapy Comment on above: Follow-up Start: 08-17-2024 End: 08-17-2024 Specialty Pharmacy 08/17/2024 8:15 AM EST Specialty Pharmacy [facility] [address] [place], [place] [address] [place] [address] Pharmacist, [facility] [address] [place] [address] REFILL Ilaris - PAx 03/27/25 - ND 08/28 [facility] Comment on above: REFILL Ilaris - PAx 03/27/25 - ND 08/28 Start: 08-02-2024 End: 08-02-2024 Specialty Pharmacy 08/02/2024 8:00 AM EST Specialty Pharmacy [facility] [address] [facility] [place] [address] Pharmacist, [facility] [address] [facility] [place] [address] REFILL Ilaris - PAx 03/27/25 ~08/12 [facility] Comment on above: REFILL Ilaris - PAx 03/27/25 - ND ~08/12 Start: 07-30-2024 End: 07-30-2024 Follow-up encounter 07/30/2024 10:00 AM [facility] Rheumatology [address] [place] [address] Silvia Tucker MD [address] [place] [address] follow up Rheumatology Comment on above: follow up Start: 07-30-2024 End: 07-30-2024 Patient encounter procedure 07/30/2024 10:00 AM EST Office Visit Rheumatology [address] [place] [address] Silvia Tucker MD [address] [place] [place] [id number] follow up Rheumatology Comment on above: follow up Start: 07-27-2024 End: 07-27-2024 Distance Health 07/27/2024 3:15 PM [facility] Chronic Care [id number] [facility] [place] [address] Cindy Mac, RD [address] [place], [place] [id number] EATING DISORDER Chronic Care Comment on above: EATING DISORDER Start: 07-23-2024 End: 10-22-2024 25-hydroxyvitamin D3 [Mass/volume] in Serum or Plasma VITAMIN D 25 HYDROXY Lab Routine SO-JILLIAN (systemic onset juvenile idiopathic arthritis) (HCC) Expected: 07/23/2024 (Approximate), Expires: 10/22/2024 [facility] Comment on above: Expected: 07/23/2024 (Approximate), Expi res: 10/22/2024 Start: 07-23-2024 End: 10-22-2024 Alanine aminotransferase [Enzymatic activity/volume] in Serum or Plasma ALANINE AMINOTRANSFERASE / SGPT Lab Routine SO-JILLIAN (systemic onset juvenile idiopathic arthritis) ([facility]) Expected: 07/23/2024 (Approximate), Expires: 10/22/2024 [facility] Work Phone: Comment on above: Expected: 07/23/2024 (Approximate), Expi res: 10/22/2024 Start: 07-23-2024 End: 10-22-2024 Aspartate aminotransferase [Enzymatic activity/volume] in Serum or Plasma ASPARTATE AMINOTRANSFERASE/SGOT Lab Routine SO-JILLIAN (systemic onset juvenile idiopathic arthritis) ([facility]) Expected: 07/23/2024 (Approximate), Expires: 10/22/2024 [facility] Comment on above: Expected: 07/23/2024 (Approximate), Expi res: 10/22/2024 Start: 07-23-2024 End: 10-22-2024 C reactive protein [Mass/volume] in Serum or Plasma C-REACTIVE PROTEIN Lab Routine SO-JILLIAN (systemic onset juvenile idiopathic arthritis) ([facility]) Expected: 07/23/2024 (Approximate), Expires: 10/22/2024 [facility] Comment on above: Expected: 07/23/2024 (Approximate), Expi res: 10/22/2024 Start: 07-23-2024 End: 10-22-2024 CBC W Auto Differential panel - Blood COMPLETE BLOOD COUNT AND DIFFERENTIAL Lab Routine SO-JILLIAN (systemic onset juvenile idiopathic arthritis) ([facility]) Expected: 07/23/2024 (Approximate), Expires: 10/22/2024 [facility] Comment on above: Expected: 07/23/2024 (Approximate), Expi res: 10/22/2024 Start: 07-23-2024 End: 10-22-2024 CREATININE BLD CREATININE BLD Lab Routine SO-JILLIAN (systemic onset juvenile idiopathic arthritis) ([facility]) Expected: 07/23/2024 (Approximate), Expires: 10/22/2024 [facility] Comment on above: Expected: 07/23/2024 (Approximate), Expi res: 10/22/2024 Start: 07-23-2024 End: 10-22-2024 Erythrocyte sedimentation rate SEDIMENTATION RATE, WESTERGREN Lab Routine SO-JILLIAN (systemic onset juvenile idiopathic arthritis) ([facility]) Expected: 07/23/2024 (Approximate), Expires: 10/22/2024 [facility] Comment on above: Expected: 07/23/2024 (Approximate), Expi res: 10/22/2024 Start: 07-23-2024 End: 10-22-2024 Urea nitrogen [Mass/volume] in Serum or Plasma UREA NITROGEN Lab Routine SO-JILLIAN (systemic onset juvenile idiopathic arthritis) ([facility]) Expected: 07/23/2024 (Approximate), Expires: 10/22/2024 [facility] Comment on above: Expected: 07/23/2024 (Approximate), Expi res: 10/22/2024 Start: 07-05-2024 End: 07-05-2024 Specialty Pharmacy 07/05/2024 8:15 AM EST Specialty Pharmacy [facility] [address] [place] [address] Pharmacist, [facility] [address] [place] [address] [address] [place] [id number] REFILL Ilaris - PAx 03/27/25 - ND ~07/18 - lvm 07/02 [facility] Comment on above: REFILL Ilaris - PAx 03/27/25 - ND ~07/18 - lvm 07/02 Start: 07-02-2024 End: 07-02-2024 Specialty Pharmacy 07/02/2024 8:15 AM EST Specialty Pharmacy [facility] [address] [place] [address] Pharmacist, [facility] [address] [place] [address] [place] [address] REFILL Ilaris - PAx 03/27/25 - ND ~07/18 [facility] Comment on above: REFILL Ilaris - PAx 03/27/25 - ND ~07/18 Start: 06-13-2024 End: 06-13-2024 Specialty Pharmacy 06/13/2024 8:00 AM EDT Specialty Pharmacy [facility] [address] [place] [phone] Pharmacist, [facility] [address] [place] [address] [place] [address] REFILL Ilaris - PAx 03/27/25 ~06/20? - PT wcb when avail 06/08 [facility] Comment on above: REFILL Ilaris - PAx 03/27/25 - ~06/20? - PT wcb when avail 06/08 Start: 06-08-2024 End: 06-08-2024 Specialty Pharmacy 06/08/2024 8:00 AM EDT Specialty Pharmacy [facility] [address] [place] [phone] Pharmacist, [facility] [address] [place] [address] [place] [address] REFILL Ilaris - PAx 03/27/25 ~06/20? [facility] Comment on above: REFILL Ilaris - PAx 03/27/25 ~06/20? Start: 05-15-2024 End: 05-15-2024 Specialty Pharmacy 05/15/2024 8:15 AM EDT Specialty Pharmacy [facility] [address] [place] [phone] Pharmacist, [facility] [address] [place] [address] [place] [address] REFILL Ilaris - PAx 03/27/25 - ND 05/23? - RTS 05/15 [facility] Comment on above: REFILL Ilaris - PAx 03/27/25 - ND 05/23? - RTS 05/15 Start: 05-14-2024 End: 05-14-2024 Nutrition therapy Nutrition Therapy Comment on above: Class 3 severe obesity due to excess janna ories with body mass index (BMI) of 50.0 to 59.9 in adult, unspecified whether serious comorbidity present (HCC) [E66.01, Z68.43] REFILL- Ilaris- PAx 03/27/25- ND 05/23? Start: 05-03-2024 End: 05-03-2024 Patient encounter procedure 05/03/2024 9:00 AM EDT Office Visit Cardiology [address] [address] Selma Zabmrano DO [address] [place], [place] [phone] 6 month follow up Cardiology Comment on above: 6 month follow up Start: 04-15-2024 [facility]enza [facility] Start: 04-03-2024 End: 04-03-2024 Patient encounter procedure 04/03/2024 7:00 AM EDT Office Visit Internal Medicine [place] [address] [place], [place] [phone] Genaro Morales APRN.SEAL MIXING OPERATOR [address] [place], [place] [phone] 3-4 month follow up Internal Medicine [place] Comment on above: 3-4 month follow up Start: 04-02-2024 End: 07-02-2024 Alanine aminotransferase [Enzymatic activity/volume] in Serum or Plasma [facility] Work Phone: Comment on above: Expected: 04/02/2024 (Approximate), Expi res: 07/02/2024 Start: 04-02-2024 End: 07-02-2024 Aldolase [Enzymatic activity/volume] in Serum or Plasma [facility] Comment on above: Expected: 04/02/2024 (Approximate), Expi res: 07/02/2024 Start: 04-02-2024 End: 07-02-2024 Aspartate aminotransferase [Enzymatic activity/volume] in Serum or Plasma [facility] Comment on above: Expected: 04/02/2024 (Approximate), Expi res: 07/02/2024 Start: 04-02-2024 End: 07-02-2024 C reactive protein [Mass/volume] in Serum or Plasma [facility] Comment on above: Expected: 04/02/2024 (Approximate), Expi res: 07/02/2024 Start: 04-02-2024 End: 07-02-2024 Creatine kinase [Enzymatic activity/volume] in Serum or Plasma [facility] Comment on above: Expected: 04/02/2024 (Approximate), Expi res: 07/02/2024 Start: 04-02-2024 End: 07-02-2024 CREATININE BLD [facility] Comment on above: Expected: 04/02/2024 (Approximate), Expi res: 07/02/2024 Start: 04-02-2024 End: 07-02-2024 Erythrocyte sedimentation rate [facility] Comment on above: Expected: 04/02/2024 (Approximate), Expi res: 07/02/2024 Start: 04-02-2024 End: 07-02-2024 Urea nitrogen [Mass/volume] in Serum or Plasma [facility] Comment on above: Expected: 04/02/2024 (Approximate), Expi res: 07/02/2024 Start: 04-02-2024 End: 07-02-2024 Urinalysis complete panel - Urine [facility] Comment on above: Expected: 04/02/2024 (Approximate), Expi res: 07/02/2024 Start: 03-29-2024 End: 03-29-2024 Nursing evaluation of patient and report 03/29/2024 10:00 AM EDT Nurse Visit OB/Gynecology [address] [place], [place] [phone] Wstr, Nurse Italian Teacher [facility] [address] [place], [place] [phone] HPV OB/Gynecology Comment on above: HPV Start: 03-15-2024 End: 03-15-2024 Patient encounter procedure 03/15/2024 9:20 AM EDT Office Visit OB/Gynecology [address] [place] [phone] Karen Jenkins MD [address] [place], [place] [phone] Cervical high risk HPV (human papillomavirus) test [...] EDT Office Visit OB/Gynecology [address] [place] [address] Ayaan Rowley APRN.CNM [address] [place] [address] Annual Exam OB/Gynecology Comment on above: Annual Exam Start: 02-26-2024 Screening for malignant neoplasm of cervix Cervical Cancer Screening [facility] Start: 01-02-2024 End: 01-02-2024 Patient encounter procedure 01/02/2024 4:40 PM EDT Office Visit Internal Medicine [place] [address] [place] [address] Faustina Carcamo MD [address] [place] [address] F/u and new gi issues [facility] Medicine [place] Comment on above: F/u and new gi issues Start: 01-02-2024 End: 04-02-2024 Basic metabolic 2000 panel - Serum or Plasma BASIC METABOLIC PANEL Lab Routine Encounter for long-term current use of medication Expected: 01/02/2024, Expires: 04/02/2024 [facility] Work Phone: Comment on above: Expected: 01/02/2024, Expires: Start: 12-08-2023 End: 03-08-2024 ALGN KIWI IGE ALGN KIWI IGE Lab Routine Expected: 12/08/2023, Expires: 03/08/2024 [facility] Comment on above: Expected: 12/08/2023, Expires: Start: 12-08-2023 End: 03-08-2024 ALGN LATEX IGE ALGN LATEX IGE Lab Routine Expected: 12/08/2023, Expires: 03/08/2024 [facility] Work Phone: Comment on above: Expected: 12/08/2023, Expires: Start: 12-08-2023 End: 03-08-2024 Banana IgE Ab [Units/volume] in Serum ALGN BANANA IGE Lab Routine Expected: 12/08/2023, Expires: 03/08/2024 [facility] Comment on above: Expected: 12/08/2023, Expires: Start: 10-24-2023 End: 01-23-2024 25-hydroxyvitamin D3 [Mass/volume] in Serum or Plasma VITAMIN D 25 HYDROXY Lab Routine Vitamin D deficiency Expected: 10/24/2023, Expires: 01/23/2024 [facility] Work Phone: Comment on above: Expected: 10/24/2023, Expires: Start: 10-24-2023 End: 01-23-2024 Thyroxine (T4) free [Mass/volume] in Serum or Plasma T4 FREE/FREE THYROX Lab Routine Elevated TSH Inappropriate sinus node tachycardia (HCC) Expected: 10/24/2023, Expires: 01/23/2024 [facility] Work Phone: Comment on above: Expected: 10/24/2023, Expires: Start: 10-24-2023 End: 01-23-2024 Triiodothyronine (T3) Free [Mass/volume] in Serum or Plasma T3 FREE BLD Lab Routine Elevated TSH Inappropriate sinus node tachycardia (HCC) Expected: 10/24/2023, Expires: 01/23/2024 [facility] Work Phone: Comment on above: Expected: 10/24/2023, Expires: Start: 10-21-2023 PAP TESTING PAP TESTING [facility] Start: 10-21-2023 Screening for malignant neoplasm of cervix PAP SMEAR [facility] Start: 10-14-2023 End: 01-13-2024 Chlamydia trachomatis+Neisseria gonorrhoeae DNA [Presence] in Unspecified specimen by JOSSIE with probe detection [facility] Work Phone: Comment on above: Expected: 10/14/2023, Expires: Start: 10-14-2023 End: 01-13-2024 HIV 1+2 Ab [Presence] in Serum or Plasma by Immunoassay [facility] Work Phone: Comment on above: Expected: 10/14/2023, Expires: 4 Start: 10-14-2023 End: 01-13-2024 SYPHILIS TOTAL W/REFLEX [facility] Work Phone: Comment on above: Expected: 10/14/2023, Expires: Start: 10-14-2023 End: 01-13-2024 TRICHOMONAS VAGINALIS NAAT [facility] Work Phone: Comment on above: Expected: 10/14/2023, Expires: 4 Start: 08-20-2023 End: 10-20-2023 THYROID PEROXIDASE ANTIBODY BLOOD THYROID PEROXIDASE ANTIBODY BLOOD Lab Routine Elevated TSH Expected: 08/20/2023 (Approximate), Expires: 10/20/2023 [facility] Work Phone: Comment on above: Expected: 08/20/2023 (Approximate), Expi res: 10/20/2023 Start: 08-20-2023 End: 10-20-2023 Thyrotropin [Units/volume] in Serum or Plasma TSH BLD Lab Routine Elevated TSH Expected: 08/20/2023 (Approximate), Expires: 10/20/2023 [facility] Work Phone: Comment on above: Expected: 08/20/2023 (Approximate), Expi res: 10/20/2023 Start: 08-17-2023 Covid-19 Vaccine () Covid-19 Vaccine () [facility] Start: 07-22-2023 End: 07-22-2024 PELVIC US WHI PELVIC US WHI Anc Imaging Routine Pelvic pain in female Expected: 07/22/2023, Expires: 07/22/2024 [facility] Work Phone: Comment on above: Expected: 07/22/2023, Expires: 4 Start: 04-15-2023 Covid-19 Vaccine () Covid-19 Vaccine () [facility] Start: 04-15-2023 Influenza vaccination [facility] Start: 12-03-2022 End: 02-02-2023 Alanine aminotransferase [Enzymatic activity/volume] in Serum or Plasma [facility] Work Phone: Comment on above: Expected: 12/03/2022, Expires: 3 Start: 12-03-2022 End: 02-02-2023 Aspartate aminotransferase [Enzymatic activity/volume] in Serum or Plasma [facility] Work Phone: Comment on above: Expected: 12/03/2022, Expires: 3 Start: 12-03-2022 End: 02-02-2023 C reactive protein [Mass/volume] in Serum or Plasma [facility] Work Phone: Comment on above: Expected: 12/03/2022, Expires: 3 Start: 12-03-2022 End: 02-02-2023 CBC W Auto Differential panel - Blood [facility] Work Phone: Comment on above: Expected: 12/03/2022, Expires: 3 Start: 12-03-2022 End: 02-02-2023 CREATININE BLD [facility] Work Phone: Comment on above: Expected: 12/03/2022, Expires: 3 Start: 12-03-2022 End: 02-02-2023 Erythrocyte sedimentation rate [facility] Work Phone: Comment on above: Expected: 12/03/2022, Expires: 3 Start: 12-03-2022 End: 02-02-2023 Urea nitrogen [Mass/volume] in Serum or Plasma [facility] Work Phone: Comment on above: Expected: 12/03/2022, Expires: 3 Start: 2022 HPV TESTING HPV TESTING [facility] Start: 09-22-2022 COVID-19 VACCINE (6 - Pfizer risk series) COVID-19 VACCINE (6 - Pfizer risk series) [facility] Start: 09-10-2022 End: 09-10-2022 Patient encounter procedure 09/10/2022 Office Visit INLAYER Karen Duval, GENI-ABDIRAHMAN [address] [facility] 4th [place] [address] Obstetrics and [facility]necology [facility] [place] Start: 04-15-2022 Influenza vaccination [facility] Start: 01-20-2022 End: 02-12-2023 Us transvaginal US FEMALE PELVIS TRANSVAG Radiology Routine Intrauterine contraceptive device threads lost, initial encounter Expected: 01/20/2022, Expires: 02/12/2023 [facility] Work Phone: Comment on above: Expected: 01/20/2022, Expires: 3 Start: 11-23-2021 COVID-19 VACCINE (5 - Booster for Pfizer series) COVID-19 VACCINE (5 - Booster for Pfizer series) [facility] Start: 10-20-2021 Screening for malignant neoplasm of cervix CERVICAL CANCER SCREENING DISCUSSION [facility] Start: 09-06-2021 COVID-19 Vaccine (3 - Booster for Pfizer series) COVID-19 Vaccine (3 - Booster for Pfizer series) [facility] Start: 05-15-2015 PNEUMOCOCCAL (2 - PCV) PNEUMOCOCCAL (2 - PCV) [facility] Start: 05-15-2015 Pneumococcal vaccination [facility] Start: 2013 Screening for malignant neoplasm of cervix CERVICAL CANCER SCREENING DISCUSSION [facility] Start: 2011 SHINGRIX VACCINE (1 of 2) SHINGRIX VACCINE (1 of 2) [facility] Start: 2010 Hepatitis C screening Hepatitis C Screening [facility] Start: 2007 HIV screening [facility] Start: 2004 Depression screening using PHQ-9 (Patient Health Questionnaire 9) score Depression Screening (PHQ-2/9) [facility] Start: 1995 History and physical examination, annual for health maintenance Wellness Visit [facility] Start: 1995 PREVENTATIVE HEALTH VISIT PREVENTATIVE HEALTH VISIT [facility] Start: 1992 Hepatitis C antibody, confirmatory test HEPATITIS C VIRUS SCREENING [facility] Start: 1992 Hepatitis C screening HEPATITIS C VIRUS SCREENING [facility] Start: 1992 Screening for malignant neoplasm of cervix Pap Smear [facility] End: 07-05-2024 Alanine aminotransferase [Enzymatic activity/volume] in Serum or Plasma ALT/SGPT Lab Routine SO-JILLIAN (systemic onset juvenile idiopathic arthritis) (HCC) Periodic fever syndrome (HCC) Every 3 months for 4 Occurrences starting 07/06/2023 until 07/05/2024 [facility] Work Phone: Comment on above: Every 3 months for 4 Occurrences startin g 07/06/2023 until 07/05/2024 End: 07-05-2024 Aspartate aminotransferase [Enzymatic activity/volume] in Serum or Plasma AST/SGOT BLD Lab Routine SO-JILLIAN (systemic onset juvenile idiopathic arthritis) (HCC) Periodic fever syndrome (HCC) Every 3 months for 4 Occurrences starting 07/06/2023 until 07/05/2024 [facility] Work Phone: Comment on above: Every 3 months for 4 Occurrences startin g 07/06/2023 until 07/05/2024 Bacteria identified in Urine by Culture URINE CULTURE Microbiology STAT RLQ abdominal pain Ordered: 06/28/2022 [facility] Comment on above: Ordered: 06/28/2022 End: 04-05-2024 C reactive protein [Mass/volume] in Serum or Plasma C-REACTIVE PROTEIN (CRP) Lab Routine SO-JILLIAN (systemic onset juvenile idiopathic arthritis) (HCC) Once per month for 3 Occurrences starting 04/06/2023 until 04/05/2024 [facility] Work Phone: Comment on above: Once per month for 3 Occurrences startin g 04/06/2023 until 04/05/2024 End: 07-05-2024 C reactive protein [Mass/volume] in Serum or Plasma C-REACTIVE PROTEIN (CRP) Lab Routine SO-JILLIAN (systemic onset juvenile idiopathic arthritis) (HCC) Periodic fever syndrome (HCC) Every 3 months for 4 Occurrences starting 07/06/2023 until 07/05/2024 [facility] Work Phone: Comment on above: Every 3 months for 4 Occurrences startin g 07/06/2023 until 07/05/2024 End: 04-05-2024 CBC W Auto Differential panel - Blood CBC + DIFF Lab Routine SO-JILLIAN (systemic onset juvenile idiopathic arthritis) (HCC) Once per month for 3 Occurrences starting 04/06/2023 until 04/05/2024 [facility] Work Phone: Comment on above: Once per month for 3 Occurrences startin g 04/06/2023 until 04/05/2024 End: 07-05-2024 CBC W Auto Differential panel - Blood CBC + DIFF Lab Routine SO-JILLIAN (systemic onset juvenile idiopathic arthritis) (HCC) Periodic fever syndrome (HCC) Every 3 months for 4 Occurrences starting 07/06/2023 until 07/05/2024 [facility] Work Phone: Comment on above: Every 3 months for 4 Occurrences startin g 07/06/2023 until 07/05/2024 Chlamydia trachomatis+Neisseria gonorrhoeae DNA [Presence] in Unspecified specimen by JOSSIE with probe detection GONORRHEA/CHLAMYDIA NAAT Lab Routine Screening for STD (sexually transmitted disease) 02/25/2023 4:49 PM EDT [facility] Work Phone: Chlamydia trachomatis+Neisseria gonorrhoeae DNA [Presence] in Unspecified specimen by JOSSIE with probe detection GONORRHEA/CHLAMYDIA NAAT Lab Routine Screen for STD (sexually transmitted disease) 02/20/2025 3:52 PM EDT [facility] COLPOSCOPY COLPOSCOPY Proce dures Routine Cervical high risk HPV (human papillomavirus) test positive Ordered: 03/12/2024 [facility] Work Phone: Comment on above: Ordered: 03/12/2024 COVID & INFLUENZA A/ B & RSV PCR, ROUTINE COVID & INFLUENZA A/B & RSV PCR, ROUTINE Microbiology Routine Acute cough URI, acute Ordered: 09/25/2024 [facility] Work Phone: Comment on above: Ordered: 09/25/2024 End: 04-05-2024 CREATININE BLD CREATININE BLD Lab Routine SO-JILLIAN (systemic onset juvenile idiopathic arthritis) (HCC) Once per month for 3 Occurrences starting 04/06/2023 until 04/05/2024 [facility] Work Phone: Comment on above: Once per month for 3 Occurrences startin g 04/06/2023 until 04/05/2024 End: 07-05-2024 CREATININE BLD CREATININE BLD Lab Routine SO-JILLIAN (systemic onset juvenile idiopathic arthritis) (HCC) Periodic fever syndrome (HCC) Every 3 months for 4 Occurrences starting 07/06/2023 until 07/05/2024 [facility] Work Phone: Comment on above: Every 3 months for 4 Occurrences startin g 07/06/2023 until 07/05/2024 End: 05-20-2024 ECG COMPLETE ECG COMPLETE ECG Routine Abnormal EKG POTS (postural orthostatic tachycardia syndrome) 1 Occurrences starting 05/20/2023 until 05/20/2024 [facility] Work Phone: Comment on above: 1 Occurrences starting 05/20/2023 until 05/20/2024 End: 04-05-2024 Erythrocyte sedimentation rate SED RATE WESTERGREN Lab Routine SO-JILLIAN (systemic onset juvenile idiopathic arthritis) (HCC) Once per month for 3 Occurrences starting 04/06/2023 until 04/05/2024 [facility] Work Phone: Comment on above: Once per month for 3 Occurrences startin g 04/06/2023 until 04/05/2024 End: 07-05-2024 Erythrocyte sedimentation rate SED RATE WESTERGREN Lab Routine SO-JILLIAN (systemic onset juvenile idiopathic arthritis) (HCC) Periodic fever syndrome (HCC) Every 3 months for 4 Occurrences starting 07/06/2023 until 07/05/2024 [facility] Work Phone: Comment on above: Every 3 months for 4 Occurrences startin g 07/06/2023 until 07/05/2024 End: 04-05-2024 Hepatic function 2000 panel - Serum or Plasma HEPATIC FUNCTION PNL Lab Routine SO-JILLIAN (systemic onset juvenile idiopathic arthritis) (HCC) Once per month for 3 Occurrences starting 04/06/2023 until 04/05/2024 [facility] Work Phone: Comment on above: Once per month for 3 Occurrences startin g 04/06/2023 until 04/05/2024 Influenza virus A an d B RNA and SARS-CoV-2 (COVID-19) N gene panel - Respiratory specimen by JOSSIE with probe detection COVID & INFLUENZA A/B NAAT, ROUTINE Microbiology Routine Fever, unspecified fever cause 06/06/2023 8:54 AM EDT [facility] Work Phone: Insertion intrauteri ne device iud INSERT INTRAUTERINE DEVICE Procedures Routine Encounter for IUD insertion Ordered: 12/04/2021 [facility] Work Phone: Comment on above: Ordered: 12/04/2021 End: 04-05-2024 Lipid 1996 panel - Serum or Plasma LIPID PANEL BASIC Lab Routine SO-JILLIAN (systemic onset juvenile idiopathic arthritis) (HCC) Every 6 months for 2 Occurrences starting 04/06/2023 until 04/05/2024 [facility] Work Phone: Comment on above: Every 6 months for 2 Occurrences startin g 04/06/2023 until 04/05/2024 End: 10-22-2022 Mri any jt lower extrem w/o contrast matrl MRI ANKLE WO IVCON LT Radiology Routine Chronic pain of left ankle 1 Occurrences starting 09/22/2021 until 10/22/2022 [facility] Work Phone: Comment on above: 1 Occurrences starting 09/22/2021 until 10/22/2022 PAP TEST PAP TEST Lab Rou subhash Encounter for gynecological examination (general) (routine) without abnormal findings 02/25/2023 4:49 PM EDT [facility] Work Phone: PAP TEST PAP TEST Lab Rou subhash Encounter for gynecological examination (general) (routine) without abnormal findings Screening for cervical cancer Encounter for screening for human papillomavirus (HPV) Cervical high risk human papillomavirus (HPV) DNA test positive 02/27/2024 3:56 PM EDT [facility] PAP TEST PAP TEST Lab Audelia cullen Encounter for gynecological examination (general) (routine) without abnormal findings Screening for cervical cancer Encounter for screening for human papillomavirus (HPV) Ordered: 02/20/2025 [facility] Work Phone: Comment on above: Ordered: 02/20/2025 Removal intrauterine device iud REMOVE INTRAUTERINE DEVICE Procedures Routine Pelvic pain in female Ordered: 02/27/2024 [facility] Work Phone: Comment on above: Ordered: 02/27/2024 SURGICAL PATHOLOGY SURGICAL PATH OLOGY Lab Routine Cervical high risk HPV (human papillomavirus) test positive 03/15/2024 10:31 AM EDT [facility] Work Phone: End: 04-05-2024 Urea nitrogen [Mass/volume] in Serum or Plasma BUN BLOOD Lab Routine SO-JILLIAN (systemic onset juvenile idiopathic arthritis) ([facility]) Once per month for 3 Occurrences starting 04/06/2023 until 04/05/2024 [facility] Work Phone: Comment on above: Once per month for 3 Occurrences startin g 04/06/2023 until 04/05/2024 End: 07-05-2024 Urea nitrogen [Mass/volume] in Serum or Plasma BUN BLOOD Lab Routine SO-JILLIAN (systemic onset juvenile idiopathic arthritis) ([facility]) Periodic fever syndrome ([facility]) Every 3 months for 4 Occurrences starting 07/06/2023 until 07/05/2024 [facility] Work Phone: Comment on above: Every 3 months for 4 Occurrences startin g 07/06/2023 until 07/05/2024 End: 01-17-2026 XR HIP BILATERAL 5V PEL/AP/LAT EACH HIP XR HIP BILATERAL 5V PEL/AP/LAT EACH HIP Radiology Routine SO-JILLIAN (systemic onset juvenile idiopathic arthritis) ([facility]) 1 Occurrences starting 12/18/2024 until 01/17/2026 [facility] Comment on above: 1 Occurrences starting 12/18/2024 until 01/17/2026 End: 01-17-2026 XR Sacroiliac Joint Views XR SACROILIAC JOINTS 2V AP PELVIS/FERGUESON Radiology Routine SO-JILLIAN (systemic onset juvenile idiopathic arthritis) ([facility]) 1 Occurrences starting 12/18/2024 until 01/17/2026 [facility] Comment on above: 1 Occurrences starting 12/18/2024 until 01/17/2026 End: 11-12-2024 XR Shoulder - left 2 Views XR SHOULDER LIMITED 2V AP/TRUE AP LEFT Radiology Routine Chronic left shoulder pain 1 Occurrences starting 10/14/2023 until 11/12/2024 [facility] Work Phone: Comment on above: 1 Occurrences starting 10/14/2023 until 11/12/2024 XR Shoulder - left 2 Views XR SHOULDER LIMITED 2V AP/TRUE AP LEFT Radiology Routine Chronic left shoulder pain 10/14/2023 12:10 PM EST [facility] Work Phone: XR Shoulder - right 2 Views XR SHOULDER [id number] AP/TRUE AP RIGHT Radiology Routine Chronic left shoulder pain 10/14/2023 11:48 AM EST [facility] Work Phone: [facility] Immunizations Immunization Date Immunization Notes Care Provider [facility] 10-31-2024 tetanus toxoid, reduced diphtheria toxoid, and acellular pertussis vaccine, adsorbed Nicholas Dorantes SUPERVISOR FELLING BUCKING.TECHNICAL INTERN Work Phone: [facility] 04-21-2024 Seasonal trivalent influenza vaccine, adjuvanted, preservative free Silvia Tucker MD Work Phone: [facility] 04-21-2024 influenza virus vaccine, unspecified formulation Michelle Rojas SUPERVISOR FELLING BUCKING.TECHNICAL INTERN Work Phone: [facility] 03-29-2024 Human Papillomavirus 9-valent vaccine Ayaan Rowley SUPERVISOR FELLING BUCKING.CNM Work Phone: [facility] 03-15-2024 HPV, unspecified formulation Karen Jenkins MD Work Phone: [facility] 05-24-2023 influenza, injectabl e, quadrivalent, contains preservative Karen Jenkins MD Work Phone: [facility] 05-24-2023 influenza virus vaccine, unspecified formulation Isela Street MD Work Phone: [facility] 07-20-2022 influenza, injectabl e, quadrivalent, preservative free Isis Melo [facility] Work Phone: [facility] 07-20-2022 influenza virus vaccine, unspecified formulation Faustina Carcamo MD Work Phone: [facility] 04-06-2021 COVID-19 vaccine, ag e 12+ yr (PFIZER-BIONTECH - PURPLE TOP) Ayaan Rowley SUPERVISOR FELLING BUCKING.CNM Work Phone: [facility] Work Phone: 04-06-2021 influenza, injectabl e, quadrivalent, preservative free Isis Melo [facility] Work Phone: [facility] 04-06-2021 influenza, seasonal, injectable Ayaan Rowley APRN.CNM Work Phone: [facility] Work Phone: 04-06-2021 influenza virus vaccine, unspecified formulation Mario LARRY Work Phone: [facility] 11-01-2020 COVID-19 vaccine, ag e 12+ yr (PFIZER-BIONTECH - PURPLE TOP) Ayaan Plotts SUPERVISOR FELLING BUCKING.CNM Work Phone: [facility] Work Phone: 04-25-2020 influenza, injectabl e, quadrivalent, preservative free Ayaan Plotts SUPERVISOR FELLING BUCKING.CNM Work Phone: [facility] 06-20-2019 influenza, injectabl e, quadrivalent, contains preservative Ayaan Plotts SUPERVISOR FELLING BUCKING.CNM Work Phone: [facility] 03-08-2019 tetanus toxoid, reduced diphtheria toxoid, and acellular pertussis vaccine, adsorbed Ayaan Plotts SUPERVISOR FELLING BUCKING.CNM Work Phone: [facility] 06-19-2018 influenza, injectabl e, quadrivalent, contains preservative Ayaan Plotts SUPERVISOR FELLING BUCKING.CNM Work Phone: [facility] 04-27-2017 influenza, injectabl e, quadrivalent, contains preservative Ayaan Plotts SUPERVISOR FELLING BUCKING.CNM Work Phone: [facility] 06-25-2016 influenza, injectabl e, quadrivalent, contains preservative Ayaan Plotts SUPERVISOR FELLING BUCKING.CNM Work Phone: [facility] 05-15-2014 influenza, seasonal, injectable Ayaan Plotts SUPERVISOR FELLING BUCKING.CNM Work Phone: [facility] 05-15-2014 pneumococcal polysaccharide vaccine, 23 valent Ayaan Plotts SUPERVISOR FELLING BUCKING.CNM Work Phone: [facility] 06-19-2013 influenza virus vaccine, unspecified formulation Ayaan Harryts SUPERVISOR FELLING BUCKING.CNM Work Phone: [facility] 04-15-2011 meningococcal polysaccharide (groups A, C, Y and W-135) diphtheria toxoid conjugate vaccine (MCV4P) Ayaan Plotts SUPERVISOR FELLING BUCKING.CNM Work Phone: [facility] 03-17-2011 hepatitis A vaccine, pediatric/adolescent dosage, 2 dose schedule Mario Vazquez [facility] Work Phone: [facility] 03-17-2011 hepatitis A vaccine, unspecified formulation Ayaan Rowley SUPERVISOR FELLING BUCKING.CNM Work Phone: [facility] Work Phone: 03-17-2011 tetanus toxoid, reduced diphtheria toxoid, and acellular pertussis vaccine, adsorbed Ayaan Harryts SUPERVISOR FELLING BUCKING.CNM Work Phone: [facility] Work Phone: 03-17-2011 tuberculin skin test ; purified protein derivative solution, intradermal P[place]angeethag [place] PEÑA Work Phone: [facility] 01-14-2010 human papilloma viru s vaccine, quadrivalent Ayaan Harryts SUPERVISOR FELLING BUCKING.CNM Work Phone: [facility] Work Phone: 06-14-2007 human papilloma viru s vaccine, quadrivalent Ayaan Harryts SUPERVISOR FELLING BUCKING.CNM Work Phone: [facility] Work Phone: 05-09-2007 human papilloma viru s vaccine, quadrivalent Ayaan Rowley SUPERVISOR FELLING BUCKING.CNM Work Phone: [facility] Work Phone: 04-04-2006 hepatitis B vaccine, pediatric or pediatric/adolescent dosage Ayaan Harryts SUPERVISOR FELLING BUCKING.CNM Work Phone: [facility] Work Phone: 05-31-2005 hepatitis B vaccine, pediatric or pediatric/adolescent dosage Ayaan Harryts SUPERVISOR FELLING BUCKING.CNM Work Phone: [facility] Work Phone: 04-02-2005 hepatitis B vaccine, pediatric or pediatric/adolescent dosage Ayaan Harryts SUPERVISOR FELLING BUCKING.CNM Work Phone: [facility] Work Phone: 04-02-2005 meningococcal polysaccharide (groups A, C, Y and W-135) diphtheria toxoid conjugate vaccine (MCV4P) Mario LARRY Work Phone: [facility] 04-02-2005 Meningococcal, MCV4, unspecified conjugate formulation(groups A, C, Y and W-135) Ayaan Plotts SUPERVISOR FELLING BUCKING.CNM Work Phone: [facility] Work Phone: 04-02-2005 tetanus and diphther ia toxoids, adsorbed, preservative free, for adult use (2 Lf of tetanus toxoid and 2 Lf of diphtheria toxoid) Ayaan Rowley SUPERVISOR FELLING BUCKING.CNM Work Phone: [facility] Work Phone: 04-02-2005 tetanus and diphther ia toxoids, not adsorbed, for adult use Mario Mingo [facility] Work Phone: [facility] 03-17-1998 diphtheria, tetanus toxoids and acellular pertussis vaccine Ayaan Rowley SUPERVISOR FELLING BUCKING.CNM Work Phone: [facility] Work Phone: 03-17-1998 measles, mumps and rubella virus vaccine Ayaan Rowley SUPERVISOR FELLING BUCKING.CNM Work Phone: [facility] Work Phone: 03-17-1998 trivalent poliovirus vaccine, live, oral Ayaan Rowley SUPERVISOR FELLING BUCKING.CNM Work Phone: [facility] Work Phone: 10-23-1994 diphtheria, tetanus toxoids and acellular pertussis vaccine Ayaan Rowley SUPERVISOR FELLING BUCKING.CNM Work Phone: [facility] Work Phone: 10-23-1994 haemophilus influenz ae type b vaccine, HbOC conjugate Ayaan Rowley SUPERVISOR FELLING BUCKING.CNM Work Phone: [facility] Work Phone: 10-23-1994 trivalent poliovirus vaccine, live, oral Ayaan Rowley SUPERVISOR FELLING BUCKING.CNM Work Phone: [facility] Work Phone: 04-06-1994 Chicken Pox (disease) Jane Rowley SUPERVISOR FELLING BUCKING.CNM Work Phone: [facility] Work Phone: 04-06-1994 poliovirus vaccine, unspecified formulation Mario Vazquez [place] Work Phone: [facility] 04-06-1994 varicella virus vaccine Ovi Herrera DO Work Phone: [facility] 02-02-1994 measles, mumps and rubella virus vaccine Ayaan Plotts SUPERVISOR FELLING BUCKING.CNM Work Phone: [facility] Work Phone: 04-15-1993 diphtheria, tetanus toxoids and pertussis vaccine Ayaan Plotts SUPERVISOR FELLING BUCKING.CNM Work Phone: [facility] Work Phone: 04-15-1993 haemophilus influenz ae type b vaccine, HbOC conjugate Ayaan Plotts SUPERVISOR FELLING BUCKING.CNM Work Phone: [facility] Work Phone: 02-17-1993 diphtheria, tetanus toxoids and pertussis vaccine Ayaan Plotts SUPERVISOR FELLING BUCKING.CNM Work Phone: [facility] Work Phone: 02-17-1993 haemophilus influenz ae type b vaccine, HbOC conjugate Ayaan Plotts SUPERVISOR FELLING BUCKING.CNM Work Phone: [facility] Work Phone: 02-17-1993 trivalent poliovirus vaccine, live, oral Ayaan Plotts SUPERVISOR FELLING BUCKING.CNM Work Phone: [facility] Work Phone: 1992 diphtheria, tetanus toxoids and pertussis vaccine Ayaan Plotts SUPERVISOR FELLING BUCKING.CNM Work Phone: [facility] Work Phone: 1992 haemophilus influenz ae type b vaccine, HbOC conjugate Ayaan Plotts SUPERVISOR FELLING BUCKING.CNM Work Phone: [facility] Work Phone: 1992 trivalent poliovirus vaccine, live, oral Ayaan Plotts SUPERVISOR FELLING BUCKING.CNM Work Phone: [facility] Work Phone: Payers Date Payer Category Payer Self-pay 2024 Unknown [id number] 2024 Medicaid [id number] 2023 Unknown [id number] 2022 Private Health Insurance [id number] 2022 Private Health Insurance [id number] 2022 Unknown MMO MMO [employer]US [id number] 2022-Present [phone] [address] [place] [address] PPO [id number] 2022 Unknown [id number] 2022 Unknown [id number] 2018 Medicaid [employer] [id number] 2018-Present [phone] [address] [place] [address] Medicaid [id number] 2018 Medicaid [id number] 1992 Unknown [id number] 1992 Unknown [id number] 1992 Unknown [id number] 594 1992 Unknown [id number]. 594 1992 Unknown [id number] 594 1992 Unknown [id number] 594 1992 Unknown [id number] 594 1992 Unknown [id number] 594 1992 Unknown [id number] 594 Unknown [id number] 462 Unknown [id number] 462 Unknown [id number] 462 Unknown [id number] 462 Unknown [id number] 462 Social History Date Type Detail Facility Start: 01-24-2015 End: 07-14-2022 Tobacco smoking status NHIS Never smoked tobacco [facility] Start: 01-24-2015 End: 07-14-2022 Tobacco use and exposure Smokeless tobacco non-user [facility] Start: 10-29-2021 End: 02-20-2025 Alcohol intake Current drinker of alcohol (finding) [facility] Start: 09-16-2021 End: 08-10-2022 History SDOH Alcohol Frequency 2 [facility] Start: 09-16-2021 End: 08-10-2022 History SDOH Alcohol Std Drinks 1 [facility] Start: 10-20-2020 History SDOH Alcohol Comment occiasionally [facility] Start: 09-16-2021 History SDOH Social Connections Phone 5 [facility] Start: 09-16-2021 End: 08-10-2022 History SDOH Social Connections Living 7 [facility] Start: 09-16-2021 End: 08-10-2022 History SDOH Stress 3 [facility] Start: 01-08-2020 Education 17 [facility] Start: 08-01-2012 Tobacco Comment father and mother smoke inside [facility] Start: 1990 Sex Assigned At Female [facility] Start: 11-03-2021 End: 11-13-2021 Exposure to SARS-CoV-2 (event) Yes [facility] Work Phone: Start: 05-06-2020 End: 06-28-2022 Exposure to SARS-CoV-2 (event) Not sure [facility] Start: 1990 Sex Assigned At Not on file [facility] Start: 07-14-2022 Tobacco Comment Father and Mother smoked in home. Stopped 03/2013. [facility] Start: 08-10-2022 History SDOH Stress 4 [facility] Start: 09-10-2022 End: 09-20-2022 Exposure to SARS-CoV-2 (event) Unable to assess [facility] Start: 08-09-2022 End: 02-21-2023 History of Social function [facility] Start: 08-09-2022 End: 02-21-2023 Social connection and isolation panel [facility] Are you now , , , , never or living with a partner? Never [facility] How often to you hav e a drink containing alcohol? Monthly or less [facility] How many standard drinks containing alcohol do you have on a typical day? 1 or 2 [facility] How often do you hav e 6 or more drinks on 1 occasion? Never [facility] How hard is it for y ou to pay for the very basics like food, housing, medical care, and heating Somewhat hard [facility] Adult Depression Screening Assessment 2 [facility] Do you feel stress - tense, restless, nervous, or anxious, or unable to sleep at night because your mind is troubled all the time - these days [OSQ] Rather much [facility] (I/We) worried whenino er (my/our) food would run out before (I/we) got money to buy more. Never true [facility] In the past 12 month s, was there a time when you were not able to pay the mortgage or rent on time? No [facility] Start: 11-17-2018 Gender identity Identifies as female gender (finding) [facility] Start: 03-17-2021 Sexual orientation Bisexual (finding) [facility] How often to you hav e a drink containing alcohol? 2-3 time sa week [facility] Do you feel stress - tense, restless, nervous, or anxious, or unable to sleep at night because your mind is troubled all the time - these days [OSQ] To some extent [facility] How often do you hav e 6 or more drinks on 1 occasion? Less than monthly [facility] (I/We) worried wheth er (my/our) food would run out before (I/we) got money to buy more. Sometimes true [facility] Start: 09-17-2013 Alcohol Comment About one drink every 2 months [facility] Are you now , , , , never or living with a partner? Living with partner [facility] Do you feel stress - tense, restless, nervous, or anxious, or unable to sleep at night because your mind is troubled all the time - these days [OSQ] Very much [facility] Medical Equipment Procedure Code Equipment Code Equipment Origin al Text Equipment Identifier Dates [id number], [id number], [id number], [id number], [id number] Start: 04-22-2021 End: 12-08-2023 Comment on above: 1 Syringe every 4 we eks. USE DIRECTED WITH SHAUNARIS Functional Status Date Assessment Result Facility 11-13-2024 Total score [AUDIT-C] 1 11/14/19 8:07 PM EDT User, [email or web address] 11-13-2024 Within the last year , have you been humiliated or emotionally abused in other ways by your partner or ex-partner? No 11/13/2024 8:07 PM EDT User, [email or web address] 11-13-2024 Within the last year , have you been afraid of your partner or ex-partner? No 11/13/2024 8:07 PM EDT User, [facility] 11-13-2024 Within the last year , have you been raped or forced to have any kind of sexual activity by your partner or ex-partner? No 11/13/2024 8:07 PM EDT User, [facility] 11-13-2024 Within the last year , have you been kicked, hit, slapped, or otherwise physically hurt by your partner or ex-partner? No 11/13/2024 8:07 PM EDT User, Mychart No [facility] 11-13-2024 How often to you hav e a drink containing alcohol? Monthly or less 11/13/2024 8:07 PM EDT User, Mychart Monthly or less [facility] 11-13-[address] inks containing alcohol do you have on a typical day? 1 or 2 11/13/2024 8:07 PM EDT User, Mychart 1 or 2 [facility] 11-13-2024 How often do you hav e 6 or more drinks on 1 occasion? Never 11/13/2024 8:07 PM EDT User, Mychart Never [facility] 03-15-2015 Are you deaf, or do you have serious difficulty hearing No 03/15/2015 9:06 AM Lissette Guevara MA No [facility] 03-15-2015 Are you blind, or do you have serious difficulty seeing, even when wearing glasses No 03/15/2015 9:06 AM Lissette Guevara MA No [facility] 03-15-2015 Do you have serious difficulty walking or climbing stairs No 03/15/2015 9:06 AM Lissette Guevara MA No [facility] 03-15-2015 Do you have difficul ty dressing or bathing No 03/15/2015 9:06 AM Lissette Guevara MA No [facility] 03-15-2015 Because of a physica l, mental, or emotional condition, do you have difficulty doing errands alone such as visiting a physician's office or shopping No 03/15/2015 9:06 AM Lissette Guevara MA No [facility] Mental Status Date Assessment Result Facility 03-15-2015 Because of a physica l, mental, or emotional condition, do you have serious difficulty concentrating, remembering, or making decisions No 03/15/2015 9:06 AM Lissette Guevara MA No [facility] Clinical Notes 06-05-2020 to 02-20-2025 Michelle Rojas APRN.TECHNICAL INTERN - 02/20/2025 2:57 PM Petra Francis APRN.LIZZIE - 01/09/2025 10:20 AM Kedar Odell PA - 12/21/2024 10:56 AM EDTPatient InstructionsPatient InstructionsAttachments Note Date & Type Note Facility 02-20-2025 History of Present illness Narrative Transport Technician offered: Patient declines. Bina is a 34 year old who presents for an annual gynecologic exam without complaints. Menses: no menses - Mirena IUD inserted 12/04/2021. Has order in to have IUD removed using Endosee . - Currently has an IUD in place but has not scheduled removal due to anxiety and panic attacks associated with medical visits. - Reports two chemical pregnancies in 2022 while on the IUD. - Experiences occasional random bleeding but no regular periods with the IUD. Sexually active: Yes Contraception: IUD HPV vaccine: Yes HPV:02/25/2023 positive HPV other high risk Last pap smear: 02/26/2024 normal History of abnormal pap: Yes Colposcopy: Yes: 03/2024 benign Bothersome pelvic pain: No Last mammogram: never OB History Gravida0 Para0 Term0 Preterm0 AB0 Living0 SAB0 IAB0 Ectopic0 Multiple0 Live Births0 Risk Management Analyst History LMP: 12/31/2021, IUD Age at Menarche: Age at First : Age at Menopause: Risk Management Analyst History Comments: Sexual Activity: Yes; Male; mirena inserted 11/2021 Contraception: I.U.D., Condom PAST MEDICAL HISTORY Diagnosis Date Anxiety Angeli Constantino Asthmatic bronchitis (HCC) recurrent episodes since pneumonia fall and winter Depression Angeli Constantino Epigastric abdominal pain Fibromyalgia Dr. 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 Kelly @[facility] Migraine with aura visual aura; diagnosed with [...] arrhythmia Snoring Suicide attempt by acetaminophen overdose ([facility]) 06/2014 Syncope Vomiting PAST SURGICAL HISTORY Procedure [...] skin retraction. Allergies and current medication updated:Yes SENSITIVE EXAM: The sensitive examination was discussed with the Patient or Patient's Authorized Research Neuropsychologist. As applicable, any other physician, advance practice provider, medical student, or other health professional student that will be observing or involved in the sensitive examination for educational or training purposes was discussed with the Patient or Authorized Research Neuropsychologist. The Patient or Authorized Research Neuropsychologist has agreed to proceed with the sensitive examination. (Sensitive examination includes inspection and/or palpation of the breasts, pelvis, prostate and anorectal regions). EXAM: Ht 5' .63 (1.54m) Wt 268 lb (121.6kg) LMP 12/31/2021 BMI 51.26 kg/(m^2). GENERAL: pleasant, female in no apparent distress HEENT: Normocephalic, atraumatic, mucus membranes moist, and no lesions NECK: Supple, full range of motion, no adenopathy, and thyroid normal DERMATOLOGY: Normal, without lesions, non-icteric, and non-hirsute BREAST: soft, non-tender, symmetric, no dominant mass, normal nipple-areolar complex, no lymphadenopathy, and no nipple discharge CHEST: Normal inspiratory effort ABDOMEN: soft, non-tender, and no masses PELVIC: external genitalia normal, normal Bartholin's glands, urethra, Blissfield's glands, no vulvar lesions, no cervical lesions, good vaginal support, physiologic discharge present, normal appearing perineal body and perianal region. IUD strings not visible as per her usual BIMANUAL: uterus normal size, shape and consistency, no adnexal masses, and non-tender RECTOVAGINAL: deferred. NEURO: alert and oriented x3,exam grossly non-focal EXTREMITIES: normal ASSESSMENT/PLAN: 1) Health maintenance: Pap done with HPV. Nutrition, exercise and routine health maintenance exams reviewed. HPV vaccine: completed series 2. Immunocompromised state (HCC) (D84.9) - Patient is on lifelong immunosuppressant medication. - Discussed increased risk of persistent HPV infection and the necessity for more frequent screenings. - Patient understands the implications of immunosuppression on HPV clearance and agrees to adhere to recommended screening schedule. 3) Contraception: IUD. Contraceptive options reviewed and information provided. 4) STD screening: Accepted STD check for Gonorrhea and Chlamydia. 5) Follow up one year or sooner as needed Michelle Rojas APRN.TECHNICAL INTERN documented in this encounter [facility] 01-31-2025 Note [facility] 01-09-2025 Note [facility] 01-09-2025 History of Present illness Narrative SUBJECTIVE Liliam Thompson is a 34 year old female here today for a check up on her medical problems. Chief Complaint Patient presents with: Recheck: Persistent diarrhea and vomiting for the last 5 days. 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 [...] life stressors, including a potential move to [place] next month. She is currently taking 10 mg of Prozac and has not increased the dose to 20 mg, as previously advised by her nurse psychiatrist, whom she is scheduled to see in a few weeks. She suspects that her nausea may be related to Prozac. iBna also reports a recent episode of bradycardia, [...] reaction.Seek emergent medical care immediately after use.Disp:1 2-pakw/weight trainer albuterol HFA (PROAIR HFA) 90 mcg/actuation [...] and agoraphobia due to potential move to [place] next month. Currently on Prozac 10 mg [...] take 1-2 tablets per dose. - Initiate rxjx-xdt-rndlruk probiotics to restore gut jimmie. - Monitor for changes in stool color; advised to report any dark red, maroon, or black stools. - Follow-up via [employer] message by the end of the week to report symptom status. Recording using KTM Advance software for draft documentation of the visit was discussed with the patient/authorized international sales representative; all questions welcomed and answered. Patient/authorized international sales representative agreed to proceed Portions of this note [...] worsen or fail to improve. Petra Beckman APRN-TECHNICAL INTERN documented in this encounter [facility] 01-03-2025 Note [facility] 12-21-2024 Note [facility] 12-21-2024 History of Present illness Narrative [employer] [...] Diagnosis Date Anxiety Angeli Constantino Asthmatic bronchitis ([facility]) recurrent episodes since pneumonia fall and winter Depression Angeli Constantino Epigastric abdominal pain Fibromyalgia Dr. 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 Kelly @[facility] Migraine with aura visual aura; diagnosed with [...] arrhythmia Snoring Suicide attempt by acetaminophen overdose ([facility]) 06/2014 Syncope Vomiting PAST SURGICAL HISTORY Procedure [...] reaction.Seek emergent medical care immediately after use.Disp:1 2-pakw/weight trainer albuterol HFA (PROAIR HFA) 90 mcg/actuation [...] advised: Tylenol/Motrin Procedures documented in this encounter [facility] 12-18-2024 Telephone encounter Note Called patient and questions answered. Maile Stacy RN [facility] 12-18-2024 Miscellaneous Notes Called patient and questions answered. Maile Stacy RN Patient called has procedure on 12/19 Patient asking if there if any special instructions before apt also is it okay if she take b/c and or advil before apt Patient can be reached at [phone] Please advise documented in this encounter [facility] 12-18-2024 Telephone encounter Note Patient called has procedure on 12/19 Patient asking if there if any special instructions before apt also is it okay if she take b/c and or advil before apt Patient can be reached at [phone] Please advise [facility] Work Phone: 12-18-2024 Instructions Silvia Tucker MD - 12/18/2024 8:26 AM EDT Labs and Xray today I will contact you through [employer] for results documented in this encounter [facility] 12-18-2024 History of Present illness Narrative MD Liliam Lobato December 17, 2024 Referring Provider: PCP: Faustina Carcamo MD Chief Complaint: Patient presents with: Recheck Background Rheumatologic History: Previously seen by multiple providers in our division From Dr. Lucero - Started having fevers in [place]/Senior year of high school. 16-19yo Was later diagnosed with inflammatory arthritis. [id number] Was treated with hydroxychloroquine + methotrexate While [...] chest, when she tries to sleep at [facility] she has difficulty laying down. If [...] 6 times/year (20mg tapered down) -IM steroids [id number] q3-4 months -Prednisone 2010- 2012 - 6 week long tapers - q 2-3 months -Prednisone 2012 - 2017 - q 3-4 months -Prednisone - last Jul 2020 - 20mg taper by 5mg every 3 days -Anakinra: 07/2018 - 08/2019 (D/C due to ineffectiveness, recurrent flares and injection site reactions) Plan at [facility]: Assessment and Plan: 30 year old [...] osteoporosis - ICD9: V82.81, ICD10: Z13.820 -Prior meterman steroid use along with history of osteoporosis [...] Dr. 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 Kelly @[facility] Migraine with aura visual aura; diagnosed with [...] vaccine, age 12+ yr, monovalent (PFIZER-BIONTECH - ALANIZ TOP) 09/28/2021 COVID-19 original vaccine, age 12+ yr, monovalent (PFIZER-BIONTECH - PURPLE TOP) 10/11/2020 11/01/2020 04/06/2021 COVID-19 vaccine, age 12+ yr (PFIZER-BIONTECH COMIRNATY) 06/22/2023 04/21/2024 COVID-19 vaccine, age 12+ yr, bivalent (PFIZER-BIONTECH) 07/28/2022 Haemophilus influenzae b (HbOC) vaccine, 4-dose [...] diphtheria pertussis (Tdap) vaccine, age 7+ yr (ADAFIDEL BOOSTRIX) 03/17/2011 03/08/2019 10/31/2024 tuberculin skin test [...] reaction.Seek emergent medical care immediately after use.Disp:1 2-pakw/weight trainer 2 Each 0 albuterol HFA (PROAIR [...] RAGWEED VERIFIED BY SKIN TESTING Physical Exam: [facility] 12/31/2021 General: Not pale, no jaundice, not [...] Return Visit: I will contact her through [employer] for results. We will make a plan after the results are available. I spent a total of 40 minutes on the date of the service which included preparing to see the patient, ednu-os-sqqw patient care, completing clinical documentation, obtaining and/or reviewing separately obtained history, performing a medically appropriate examination, counseling and educating the patient/family/caregiver, and ordering medications, tests, or procedures. Silvia Tucker MD Referring Provider: PCP: Faustina Carcamo MD documented in this encounter [facility] 12-18-2024 Note [facility] 12-06-2024 Note [facility] 11-23-2024 Telephone encounter Note Just needs scheduled with a physician (Saad Jenkins Wiswell, [place]) so [employer]e (in office camera) can be used at the same time. Please contact patient to schedule. Janett Heard RN [facility] 11-23-2024 Miscellaneous Notes Just needs scheduled with a physician (Saad Jenkins Wiswell, [place]) so [employer] (in office camera) can be used at the same time. Please contact patient to schedule. Janett Heard RN Patient calling in regards to getting her IUD removed. She does have an active request for this. However she stated that she was told to let the surgery scheduler know for her there has to be a camera for visibility . Wanting to make sure this does not have to be scheduled a certain way. Please review and advise. La Nena Lui November 23, 2024 3:25 PM documented in this encounter [facility] 11-23-2024 Telephone encounter Note Patient calling in regards to getting her IUD removed. She does have an active request for this. However she stated that she was told to let the surgery scheduler know for her there has to be a camera for visibility . Wanting to make sure this does not have to be scheduled a certain way. Please review and advise. La Nena Lui November 23, 2024 3:25 PM [facility] 11-22-2024 History of Present illness Narrative VIRTUAL VISIT PROGRESS NOTE This is a virtual visit using [employer] Video Visit. It required patient-provider interaction for the medical decision making as documented below. I have communicated my name and active licensure. The patient's identity and physical location were verified at the time of this visit. Either the patient or their legal international sales representative has been informed of the risks [...] 16-17yo Was later diagnosed with inflammatory arthritis. [id number] Was treated with hydroxychloroquine + methotrexate While [...] chest, when she tries to sleep at [facility] she has difficulty laying down. If [...] 6 times/year (20mg tapered down) -IM steroids [id number] q3-4 months -Prednisone 2010- 2012 - 6 week long tapers - q 2-3 months -Prednisone 2012 - 2017 - q 3-4 months -Prednisone - last Jul 2020 - 20mg taper by 5mg every 3 days -Anakinra: 07/2018 - 08/2019 (D/C due to ineffectiveness, recurrent flares and injection site reactions) Plan at [facility]: Assessment and Plan: 30 year old [...] treatment. PAST MEDICAL HISTORY Diagnosis Date Anxiety Deangleoamarilis Constantino Asthmatic bronchitis ([facility]) recurrent episodes since pneumonia fall and winter Depression Melbashannanamarilis Constantino Epigastric abdominal pain Fibromyalgia Dr. 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 Kelly @[facility] Migraine with aura visual aura; diagnosed with [...] arrhythmia Snoring Suicide attempt by acetaminophen overdose ([facility]) 06/2014 Syncope Vomiting PAST SURGICAL HISTORY Procedure [...] vaccine, age 12+ yr, monovalent (PFIZER-BIONTECH - ALANIZ TOP) 09/28/2021 COVID-19 original vaccine, age 12+ yr, monovalent (PFIZER-BIONTECH - PURPLE TOP) 10/11/2020 11/01/2020 04/06/2021 COVID-19 vaccine, age 12+ yr (PFIZER-BIONTECH COMIRNATY) 06/22/2023 04/21/2024 COVID-19 vaccine, age 12+ yr, bivalent (Tru-FriendsBIONTECH) 07/28/2022 Haemophilus influenzae b (HbOC) vaccine, 4-dose [...] reaction.Seek emergent medical care immediately after use.Disp:1 2-pakw/weight trainer 2 Each 0 benzonatate (TESSALON PERLE) [...] which included preparing to see the patient, moge-yz-vltn patient care, completing clinical documentation, obtaining and/or reviewing separately obtained history, performing a medically appropriate examination, counseling and educating the patient/family/caregiver, and ordering medications, tests, or procedures. Silvia Tucker MD Referring Provider: PCP: Faustina Carcamo MD documented in this encounter [facility] 11-22-2024 Note [facility] 11-22-2024 Note [facility] 11-22-2024 History of Present illness Narrative [...] Dr. 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 Kelly @[facility] Migraine with aura visual aura; diagnosed with [...] reaction.Seek emergent medical care immediately after use.Disp:1 2-pakw/weight trainer benzonatate (TESSALON PERLE) 100 mg capsule [...] advised: Tylenol/Motrin Procedures documented in this encounter [facility] 11-19-2024 Note [facility] 11-19-2024 History of Present illness Narrative [...] history is provided by the patient. No bilingual speech language pathologist was used. Sore Throat This is a [...] Dr. 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 Kelly @[facility] Migraine with aura visual aura; diagnosed with [...] reaction.Seek emergent medical care immediately after use.Disp:1 2-pakw/weight trainer predniSONE (DELTASONE) 10 mg tablet Take [...] - STREP A MOLECULAR (POC) Rosaura Santacruz APRN.TECHNICAL INTERN History and Record Review External record(s) reviewed: prior inpatient record and prior outpatient record. Differential Diagnoses - viral pharyngitis is more likely for the following reason(s): suggested by H&P and consistent with laboratory studies - strep is less likely for the following reason(s): laboratory studies not suggestive Disposition The patient was discharged. Procedures documented in this encounter [facility] 11-08-2024 Telephone encounter Note Reason for Call: [...] denies Protocols used: Heart Rate and Heartbeat [id number] [facility] 11-08-2024 Miscellaneous Notes Reason for Call: symptomatic [...] denies Protocols used: Heart Rate and Heartbeat [id number] documented in this encounter [facility] 11-08-2024 Note [facility] 10-31-2024 Note [facility] 10-31-2024 History of Present illness Narrative Images from the original note were not included. Subjective HPI Nontoxic-appearing 34-year-old female presents urgent care chief complaint finger laceration. Patient states was cutting herbs with a kitchen knife at home when she cut her middle finger left hand. Yafmv-bizl-jgefxvbn. States thoroughly wash hand with soap and [...] hour PAST MEDICAL HISTORY Diagnosis Date Anxiety Angeli Constantino Asthmatic bronchitis recurrent episodes since pneumonia fall and winter of 2011 Depression Angeli Constantino Epigastric abdominal pain Fibromyalgia Dr. 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 Kelly @[facility] Migraine with aura visual aura; diagnosed with [...] reaction.Seek emergent medical care immediately after use.Disp:1 2-pakw/weight trainer predniSONE (DELTASONE) 10 mg tablet Take [...] of care. This note was generated using Spectafy software. It may contain errors in wording, punctuation, or spelling. Nicholas Dorantes APRN.TECHNICAL INTERN documented in this encounter [facility] 10-29-2024 Telephone encounter Note Called patient to [...] is okay with a response over MyChart. [facility] 10-29-2024 Miscellaneous Notes Called patient to discuss [...] listed below.. Patient can be reached at :[phone] documented in this encounter [facility] 10-29-2024 Telephone encounter Note Patient has been [...] listed below.. Patient can be reached at :[phone] [facility] 10-26-2024 Telephone encounter Note Prescription Refill Information [...] Jenkins LPN October 26, 2024 10:03 AM [facility] 10-26-2024 Miscellaneous Notes Prescription Refill Information The [...] 2024 10:03 AM documented in this encounter [facility] 10-24-2024 History of Present illness Narrative Radiology [...] PATIENT PRESENTS WITH AN IMPLANTABLE OR ATTACHED DATA TECHNICIAN: No RADIOLOGY DEPARTMENT: General X-ray: Exam(s) Completed: Upper Extremity X-Ray(s): Wrist, left PERIPHERAL IV DATA: Not applicable SIGNED BY: RT Sharyn(R) October 24, 2024 11:55 AM documented in this encounter [facility] 10-24-2024 Note [facility] 10-24-2024 Note [facility] 10-24-2024 History of Present illness Narrative [...] pain: X 2 weeks-injured it in the [facility] PAST MEDICAL HISTORY Diagnosis Date Anxiety Angeli Constantino Asthmatic bronchitis recurrent episodes since pneumonia fall and winter of 2011 Depression Angeli Constantino Epigastric abdominal pain Fibromyalgia Dr. 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 Kelly @[facility] Migraine with aura visual aura; diagnosed with [...] reaction.Seek emergent medical care immediately after use.Disp:1 2-pakw/weight trainer naratriptan (AMERGE) 2.5 mg tablet Take [...] pain: X 2 weeks-injured it in the [facility] Review of Systems Objective BP 130/80 [...] injury Dictated by : MD Steven TURNER APRN.TECHNICAL INTERN MDM Procedures documented in this encounter [facility] 10-16-2024 Note [facility] 10-16-2024 History of Present illness Narrative This note was created using shoplyter. Subjective Liliam Thompson is a 34 year [...] abdominal pain Fibromyalgia Dr. 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 Kelly @[facility] Migraine with aura visual aura; diagnosed with [...] arrhythmia Snoring Suicide attempt by acetaminophen overdose ([facility]) 06/2014 Syncope Vomiting Current Outpatient Medications Medication [...] reaction.Seek emergent medical care immediately after use.Disp:1 2-pakw/weight trainer naratriptan (AMERGE) 2.5 mg tablet Take [...] bone demineralization. - Advised considering a daily dsgn-clv-rwmybgt vitamin D supplement of 5,000 IU for [...] Faustina Carcamo MD documented in this encounter [facility] 10-16-2024 Note [facility] 09-25-2024 Note SARS-COV-2 (AGENT OF COVID-19) RNA: Not detected INFLUENZA A RNA: Not detected INFLUENZA B RNA: Not detected RESPIRATORY SYNCYTIAL VIRUS (RSV) RNA: Not detected [facility] Comment on above: Performed By: #### 9 [id number] ####[facility] LABIA [id number] [place] [address] [place] 09-25-2024 History of Present illness Narrative Radiology [...] PATIENT PRESENTS WITH AN IMPLANTABLE OR ATTACHED DATA TECHNICIAN: No RADIOLOGY DEPARTMENT: General X-ray: Exam(s) Completed: Chest X-Ray PERIPHERAL IV DATA: Not applicable SIGNED BY: Saima Daly September 25, 2024 9:20 AM documented in this encounter [facility] 09-25-2024 Note [facility] 09-25-2024 Note [facility] 09-25-2024 History of Present illness Narrative This note was created using Splitcast Technologyriter. Subjective Liliam Thompson is a 33 year [...] history is provided by the patient. No bilingual speech language pathologist was used. Cough This is a new [...] asthma. PAST MEDICAL HISTORY Diagnosis Date Anxiety Melbashannanamarilis Constantino Asthmatic bronchitis recurrent episodes since pneumonia fall and winter 2011 Depression Angeli Constantino Epigastric abdominal pain Fibromyalgia Dr. 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 Kelly @[facility] Migraine with aura visual aura; diagnosed with [...] arrhythmia Snoring Suicide attempt by acetaminophen overdose ([facility]) 06/2014 Syncope Vomiting PAST SURGICAL HISTORY Procedure [...] reaction.Seek emergent medical care immediately after use.Disp:1 2-pakw/weight trainer naratriptan (AMERGE) 2.5 mg tablet Take [...] RSV PCR, ROUTINE-obtained and pending Rosaura Santacruz APRN.TECHNICAL INTERN documented in this encounter [facility] 09-13-2024 History of Present illness Narrative [facility] [...] been reviewed prior to dispensing the medication. 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 Patient confirmed: Yes Med/dose confirmed: Yes Supplies needed: No supplies needed Missed doses: No Estimated days supply on hand: 0 Next cycle/dose due: 09/25/24 Copay amount: 0 Delivery method: FedEx Signature required: Waived on patient request Delivery address: [place] [address] Delivery date: 09/19/24 Questions or concerns for [...] reaction.Seek emergent medical care immediately after use.Disp:1 2-pakw/weight trainer naratriptan (AMERGE) 2.5 mg tablet Take [...] facility-administered medications on file prior to visit. [facility] CLINICAL ASSESSMENT - INFLAMMATORY [...] efficacy Beena Tian documented in this encounter [facility] 09-13-2024 Note [facility] 09-11-2024 Note [facility] 09-11-2024 History of Present illness Narrative This Team Access Model visit is a virtual encounter. It required patient-provider interaction for the medical decision making as documented below. I have communicated my name and active licensure. The patient's identity and physical location were verified at the time of this visit. Either the patient or their legal international sales representative has been informed of the risks and benefits of -- and alternatives to -- treatment through a remote evaluation and consents to proceed with the evaluation remotely. Patient Location: [place] CC: Patient presents with: Anxiety HPI Liliam [...] HPI PAST MEDICAL HISTORY Diagnosis Date Anxiety Deangelon Vira Asthmatic bronchitis recurrent episodes since pneumonia fall and winter 2011 Depression Angeli Christiansonger Epigastric abdominal pain Fibromyalgia Dr. 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 Kelly @[facility] Migraine with aura visual aura; diagnosed with [...] reaction.Seek emergent medical care immediately after use.Disp:1 2-pakw/weight trainer naratriptan (AMERGE) 2.5 mg tablet Take [...] treatment options, medications, and coordinating care. Moon Encinas APRN.TECHNICAL INTERN documented in this encounter [facility] 09-07-2024 Telephone encounter Note Pt read the [employer] msg with Dr. Carcamo' information and the phone numbers. Last read by Bina Thompson at 7:22 PM on 09/06/2024. [facility] 09-07-2024 Miscellaneous Notes Pt read the [employer] msg with Dr. Carcamo' information and the phone numbers. Last read by Bina Thompson at 7:22 PM on 09/06/2024. Called and left a detailed voicemail notifying patient of providers message. Clinic phone number was left for the patient to call back and answer providers questions. [facility] Irene Currie RN My apologies--I did get a message back from Chiquita Montez--she cannot add more patients due to her filled panel size but said that can make referrals for other providers within [facility] system. Below is her note to me: Pantera Wilson, I am currently not able to accept new patients for general psychiatric diagnosis due to my panel size. You can continue to put the consult to psychiatry order and if the patients are willing to see a provider virtually, they can call [phone] and schedule an appointment with a provider in our department. If they are looking for in person and virtual options, you can put the consult and then have them Call [phone] to schedule an appointment with an [facility] provider. Hope that helps, Chiquita See if patient wants to start with seeing someone virtually by calling the number above or if wants to see someone in person and needs a referral to someone through [facility]. Pt calling in as she had a virtual visit with Dr. Carcamo on 08/20/24. Pt states Dr. Carcamo mentioned that she was going to message a psychology Nurse practitioner that used to come to [place] to possibly refer pt to. Pt has not heard anything back. Pt's OV note from 08/20 is not completed so unsure of Dr. Carcamo' plan. Will send msg to provider for instructions. Noted pt was to have a return visit in 6 months around 02/17/[address] Carcamo. Pt declined offered appts with betting agency manager. States she prefers to stay with Dr. Carcamo. Last in person visit with Dr. Carcamo was 12/2023. Pt booked for in person appt on 03/18/[address] Carcamo. documented in this encounter [facility] 09-06-2024 Telephone encounter Note Called and left a detailed voicemail notifying patient of providers message. Clinic phone number was left for the patient to call back and answer providers questions. Sent information through to Pts MyChart as well. Irene Currie RN [facility] 09-06-2024 Telephone encounter Note My apologies--I did get a message back from Chiquita Montez--she cannot add more patients due to her filled panel size but said that can make referrals for other providers within [facility] system. Below is her note to me: Pantera Wilson, I am currently not able to accept new patients for general psychiatric diagnosis due to my panel size. You can continue to put the consult to psychiatry order and if the patients are willing to see a provider virtually, they can call [phone] and schedule an appointment with a provider in our department. If they are looking for in person and virtual options, you can put the consult and then have them Call [phone] to schedule an appointment with an [facility] provider. Hope that helps, Chiquita See if patient wants to start with seeing someone virtually by calling the number above or if wants to see someone in person and needs a referral to someone through [facility]. [facility] 09-06-2024 Instructions Faustina Carcamo MD - 09/06/2024 6:12 PM EST ,- Continue taking your current medications as prescribed. - Start taking Hydroxyzine 50 mg tablets, up to three times daily as needed for anxiety; prescription sent to [facility] in [place]. - Practice deep breathing exercises: inhale for 4 seconds, exhale for 8 seconds to help manage heart symptoms. - Stay hydrated and maintain electrolyte balance to support heart health. - Complete lab tests ordered by your flatware maker, including liver enzymes, CO2 protein, blood count, sed rate, creatinine, blood urea nitrogen, and vitamin D. - Follow up with a fuel tank sealer and tester if heart symptoms become bothersome. - Next appointment scheduled in 6 months; you will be contacted with the date and time. documented in this encounter [facility] 09-06-2024 Telephone encounter Note Pt calling in as she had a virtual visit with Dr. Carcamo on 08/20/[address]. [address] Carcamo mentioned that she was going to message a psychology Nurse practitioner that used to come to [place] to possibly refer pt to. Pt has not heard anything back. Pt's OV note from 08/20 is not completed so unsure of Dr. Carcamo' plan. Will send msg to provider for instructions. Noted pt was to have a return visit in 6 months around 02/17/[address] Carcamo. Pt declined offered appts with betting agency manager. States she prefers to stay with Dr. Carcamo. Last in person visit with Dr. Carcamo was 12/2023. Pt booked for in person appt on 03/18/[address] Carcamo. [facility] 08-27-2024 Telephone encounter Note Prescription Refill Information [...] Jenkins LPN August 27, 2024 2:31 PM [facility] 08-27-2024 Miscellaneous Notes Prescription Refill Information The [...] 2024 2:31 PM documented in this encounter [facility] 08-20-2024 Note [facility] 08-20-2024 History of Present illness Narrative VIRTUAL VISIT PROGRESS NOTE This is a virtual visit using [employer] Video Visit. It required patient-provider interaction for the medical decision making as documented below. I have communicated my name and active licensure. The patient's identity and physical location were verified at the time of this visit. Either the patient or their legal international sales representative has been informed of the risks [...] presenting for follow-up. Liliam reports that her fuel tank sealer and tester, Dr. Zambrano, has retired, and she is inquiring about whether she should follow up with another fuel tank sealer and tester. She mentions that she met with his ALARM MECHANISM ADJUSTER after his departure, but the follow-up was canceled. She recalls a note from the ALARM MECHANISM ADJUSTER stating that her 30-day event monitor showed [...] also reports experiencing chest pain, which her flatware maker attributes to pleurisy, noting that it [...] abdominal pain Fibromyalgia Dr. 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 Kelly @[facility] Migraine with aura visual aura; diagnosed with [...] arrhythmia Snoring Suicide attempt by acetaminophen overdose ([facility]) 06/2014 Syncope Vomiting PAST SURGICAL HISTORY Procedure [...] reaction.Seek emergent medical care immediately after use.Disp:1 2-pakw/weight trainer naratriptan (AMERGE) 2.5 mg tablet Take [...] with rheumatologic flares. - Continue management under flatware maker's care. - Patient to complete pending lab work ordered by flatware maker, including liver enzymes, CMP, and vitamin D levels. There are no Patient Instructions on file for this visit. I spent a total of 29 minutes on the date of the service which included preparing to see the patient, [id number] patient care, completing clinical documentation, obtaining and/or reviewing separately obtained history, performing a medically appropriate examination, counseling and educating the patient/family/caregiver, ordering medications, tests, or procedures, independently interpreting results (not separately reported), and communicating results to the patient/family/caregiver Faustina Carcamo MD documented in this encounter [facility] 08-02-2024 Note [facility] 08-01-[address] - 08/01/2024 10:42 AM EST Nutrition Intervention 07/27/2024: Goals: to continue to eat 6x day Wants to enjoy cooking and eating again Small plates for snacks only, not food Take picture of meals and discuss at next appointment documented in this encounter [facility] 07-30-2024 History of Present illness Narrative VIRTUAL VISIT PROGRESS NOTE This is a virtual visit using [employer] Zoom Video Visit. It required patient-provider interaction for the medical decision making as documented below. I have communicated my name and active licensure. The patient's identity and physical location were verified at the time of this visit. Either the patient or their legal international sales representative has been informed of the risks and benefits of -- and alternatives to -- treatment through a remote evaluation and consents to proceed with the evaluation remotely. MD Liliam Lobato July 27, 2024 Referring Provider:Silvia Tukcer PCP: Faustina Carcamo MD Chief Complaint: Patient presents with: Recheck Background Rheumatologic History: Previously seen by multiple providers in our division From Dr. Droz - Started having fevers in [place]/Senior year of high school. 16-19yo Was later diagnosed with inflammatory arthritis. [id number] Was treated with hydroxychloroquine + methotrexate While [...] [facility]. If she [...] 6 times/year (20mg tapered down) -IM steroids [id number] q3-4 months -Prednisone 2010- 2012 - 6 week long tapers - q 2-3 months -Prednisone 2012 - 2017 - q 3-4 months -Prednisone - last Jul 2020 - 20mg taper by 5mg every 3 days -Anakinra: 07/2018 - 08/2019 (D/C due to ineffectiveness, recurrent flares and injection site reactions) Plan at [facility]: Assessment and Plan: 30 year old [...] abdominal pain Fibromyalgia Dr. 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 Kelly @[facility] Migraine with aura visual aura; diagnosed with [...] arrhythmia Snoring Suicide attempt by acetaminophen overdose ([facility]) 06/2014 Syncope Vomiting PAST SURGICAL HISTORY Procedure [...] COVID-19 original vaccine, age 12+ yr, monovalent ([facility] - ALANIZ TOP) 09/28/2021 COVID-19 original vaccine, age 12+ yr, monovalent ([facility] - PURPLE TOP) 10/11/2020 11/01/2020 04/06/2021 COVID-19 vaccine, age 12+ yr ([employer]-Q-Bot COMIRNATY) 06/22/2023 04/21/2024 COVID-19 vaccine, age 12+ yr, bivalent ([facility]) 07/28/2022 Haemophilus influenzae b (HbOC) vaccine, 4-dose [...] reaction.Seek emergent medical care immediately after use.Disp:1 2-pakw/weight trainer 1 Each 2 naratriptan (AMERGE) 2.5 [...] which included preparing to see the patient, iccz-bx-ejup patient care, completing clinical documentation, obtaining and/or [...] Swollen Glands: Yes documented in this encounter [facility] 07-30-2024 Note [facility] 07-27-2024 Note HNO ID: [id number] Author: CINDY MAC RD Service: ? Author Type: Registered Dietitian Type: Progress Notes Filed: 08/01/2024 10:45 Note Text: The [facility] Nutrition Therapy: Virtual Consult - Initial Assessment I have communicated my name and active licensure. The patient?s identity and physical location were verified at the time of this visit. Either the patient or their legal international sales representative has been informed of the risks [...] she has a supportive partner, traveling to [place] in the coming weeks for his family [...] 27, 2024 TIME: 3:16 PM PAGER: N/A [facility] 07-27-2024 History of Present illness Narrative The [facility] Nutrition Therapy: Virtual Consult - Initial Assessment I have communicated my name and active licensure. The patient s identity and physical location were verified at the time of this visit. Either the patient or their legal international sales representative has been informed of the risks [...] she has a supportive partner, traveling to [place] in the coming weeks for his family [...] PM PAGER: N/A documented in this encounter [facility] 07-25-2024 Telephone encounter Note Pt's appt has been changed [facility] 07-25-2024 Miscellaneous Notes Pt's appt has been changed Virtual is fine Pt has multiple messages for today. Pt asking if her appt Tuesday can be changed to virtual or does it need to be in person Please call pt [phone] documented in this encounter [facility] 07-25-2024 Telephone encounter Note Spoke with pt and relayed provider message. Pt verbalized understanding. [facility] 07-25-2024 Miscellaneous Notes Spoke with pt and [...] the antibiotics? Pt could be reached at [phone] Thank you documented in this encounter [facility] 07-25-2024 Telephone encounter Note Tried to call pt, but no answer. [facility] 07-25-2024 Telephone encounter Note Virtual is fine [facility] 07-25-2024 Telephone encounter Note Please ask her to hold off ilaris until she completes antibiotics. [facility] 07-25-2024 Telephone encounter Note Pt has multiple messages for today. [facility] 07-25-2024 Telephone encounter Note Pt asking if her appt Tuesday can be changed to virtual or does it need to be in person Please call pt [phone] [facility] 07-25-2024 Telephone encounter Note Please see pt message and advise. Thank you. [facility] 07-25-2024 Telephone encounter Note Pt states she broke a tooth and was given antibiotics Pt was scheduled to take her Ilaris 2 days ago Pt wants to know if she could take the Ilaris, while on the antibiotics? Pt could be reached at [phone] Thank you [facility] 07-19-2024 Telephone encounter Note OK [facility] 07-19-2024 Miscellaneous Notes OK Patient calls and states that she was recently prescribed antibiotic at the medical center. Patient reports that she has vaginal itching and thinks she has a yeast infection. Patient asking if provider can send in prescription for Diflucan to [facility]? The patient has been identified by name [...] 2024 8:56 AM documented in this encounter [facility] 07-19-2024 Telephone encounter Note Patient calls and states that she was recently prescribed antibiotic at the medical center. Patient reports that she has vaginal itching and thinks she has a yeast infection. Patient asking if provider can send in prescription for Diflucan to [facility] [place]? The patient has been identified by name [...] Mcclellan RN July 19, 2024 8:56 AM [facility] 07-11-2024 Note [facility] 07-11-2024 History of Present illness Narrative This note was created using Splitcast Technologyriter. Subjective Liliam Thompson is a 33 year [...] chills or myalgia. Patient has been taking [id number] medications with no improvement in her symptoms. [...] IMPRESSION: Acute Sinusitis documented in this encounter [facility] 07-04-2024 Instructions Moon Encinas APRN.LIZZIE - 07/04/2024 3:27 PM EST 1. Start [...] sooner if worsening documented in this encounter [facility] 07-04-2024 Note [facility] 07-04-2024 History of Present illness Narrative [...] wheezing. PAST MEDICAL HISTORY Diagnosis Date Anxiety Deangeloamarilis Vira Asthmatic bronchitis recurrent episodes since pneumonia fall and winter Depression Deangeloamarilis Vira Epigastric abdominal pain Fibromyalgia Dr. 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 Kelly @[facility] Migraine with aura visual aura; diagnosed with [...] arrhythmia Snoring Suicide attempt by acetaminophen overdose ([facility]) 06/2014 Syncope Vomiting PAST SURGICAL HISTORY Procedure [...] reaction.Seek emergent medical care immediately after use.Disp:1 2-pakw/weight trainer naratriptan (AMERGE) 2.5 mg tablet Take [...] occur. Patient agreeable to treatment plan. Moon Encinas APRN.TECHNICAL INTERN documented in this encounter [facility] 07-02-2024 Note [facility] 06-14-2024 Telephone encounter Note Spoke with pt and relayed provider message. Pt verbalized understanding. [facility] 06-14-2024 Miscellaneous Notes Spoke with pt and [...] that ties to this message. Pharmacy: [id number] [place] [address] [phone] [facility]. - [phone] [phone] Advised pt if sxs worsen to go [...] her neck and armpit. Patient's phone number: [phone] documented in this encounter [facility] 06-14-2024 Note Addended by: SILVIA ISLAS on: 06/14/2024 02:28 PM Modules accepted: Orders [facility] 06-14-2024 Telephone encounter Note Let's do another course of steroid Dosepak. She would need urgent care/ER evaluation if still does not get better after the second round. [facility] 06-14-2024 Telephone encounter Note Spoke with pt. [...] that ties to this message. Pharmacy: [id number] [place] [address] [address] [facility]. - [phone] [facility] [phone] Advised pt if sxs worsen to go to ER for further evaluation. Please advise. Thank you. [facility] 06-14-2024 Telephone encounter Note Patient stated that she finished her Medrol Dose Pack yesterday but has been experiencing a resurgence of symptoms for the past few days with them being worse today. Patient stated that she is experiencing joint pain, fevers, and swollen glands in her neck and armpit. Patient's phone number: [phone] [facility] 06-08-2024 Note [facility] 06-08-2024 History of Present illness Narrative AMBULATORY TELEPHONE VISIT Liliam Thompson has consented to this telephone encounter. Persons Present: patient Chief Complaint/Reason: ER follow up chest pain HPI: Presents for ER follow up visit. She was seen at [facility] June 07, 2024 with report of chest [...] the following: I spoke with Bina (see FlexyMindt message). She reports sx began Tuesday of [...] Went to the ER last night in [place] for this. They ruled out PE and RI. CXR was normal, labs were ok. No [...] pleuritic discomfort. Data Reviewed: Outside chart from [facility] reviewed. 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 Genaro Morales APRN.DAWSON Total Time Spent: 20 minutes Genaro Morales APRN.DAWSON documented in this encounter [facility] 06-08-2024 Note [facility] 06-07-2024 Telephone encounter Note I spoke with Bina (see [employer] message). She reports sx began Tuesday of [...] for this. They ruled out PE and RI. CXR was normal, labs were ok. No medications prescribed. She stopped taking colchicine d/t no insurance coverage. Still taking Ilaris, last dose taken was beginning of this month. Taking OTC ibuprofen for the pain. [facility] 06-07-2024 Miscellaneous Notes I spoke with Bina (see FlexyMindt message). She reports sx began Tuesday of [...] Went to the ER last night in [place] for this. They ruled out PE and RI. CXR was normal, labs were ok. No medications prescribed. She stopped taking colchicine d/t no insurance coverage. Still taking Ilaris, last dose taken was beginning of this month. Taking OTC ibuprofen for the pain. documented in this encounter [facility] 05-15-2024 History of Present illness Narrative [facility] [...] been reviewed prior to dispensing the medication. 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 Patient confirmed: Yes Med/dose confirmed: Yes Supplies needed: No supplies needed Missed doses: No Estimated days supply on hand: 0 Next cycle/dose due: (ND ~05/20-05/24) Copay amount: 0 Payment confirmed: Yes Delivery method: FedEx Signature required: Waived on patient request Delivery address: [address] [place] [address] [place] [address] Delivery date: 05/17/24 Questions or concerns for [...] reaction.Seek emergent medical care immediately after use.Disp:1 2-pakw/weight trainer naratriptan (AMERGE) 2.5 mg tablet Take [...] facility-administered medications on file prior to visit. [facility] CLINICAL ASSESSMENT - INFLAMMATORY CONDITIONS V6: Assessment to use: Refill Date of influenza vaccination reminder: 04/24/2024 Date of most recent vaccination assessment: 04/24/2024 Treatment Plan Information: Ilaris Inject 150mg (1 vial) subcutaneously every 4 weeks. Est. Tx Plan Start Date: No information available Estimated Start Date Info: Established on therapy Est. Estimated Treatment Duration: Until lack of efficacy Ronnie Yoon ([facility]) [facility] FAX: documented in this encounter [facility] 05-15-2024 Note [facility] 05-14-[address] - 05/14/2024 10:05 AM EDT If [...] instead of CIB documented in this encounter [facility] 05-14-2024 Note [facility] 05-14-2024 History of Present illness Narrative The [facility] Nutrition Therapy: Virtual Consult - Initial Assessment I have communicated my name and active licensure. The patient s identity and physical location were verified at the time of this visit. Either the patient or their legal international sales representative has been informed of the risks [...] TIME: 9:34 AM documented in this encounter [facility] 05-08-2024 Telephone encounter Note Order has been faxed to [facility] as instructed [facility] 05-08-2024 Miscellaneous Notes Order has been faxed to [facility] as instructed OK, printed, resend. Patient calls and states that Rollator prescription needs to be for an adjustable Rollator. Please send updated order to [facility]. Please review and advise, Patsy Mcclellan RN documented in this encounter [facility] 05-08-2024 Telephone encounter Note OK, printed, resend. [facility] 05-04-2024 Telephone encounter Note Patient calls and states that Rollator prescription needs to be for an adjustable Rollator. Please send updated order to [facility]. Please review and advise, Patsy Mcclellan RN [facility] 04-30-2024 Telephone encounter Note Order and pertinent information faxed to [facility]. Yana Cruz LPN [facility] 04-30-2024 Miscellaneous Notes Order and pertinent information faxed to [facility]. Yana Cruz LPN Patient is requesting her rollator order be sent to [facility] in [place], please review and advise. La Nena Lui April 30, 2024 1:24 PM documented in this encounter [facility] 04-30-2024 Telephone encounter Note Patient is requesting her rollator order be sent to [facility] in [place], please review and advise. La Nena Lui April 30, 2024 1:24 PM [facility] 04-30-2024 Instructions Faustina Carcamo MD - [...] will be electronically signed and available in [employer] for you to access. - If physical therapy is required by your insurance before obtaining the rollator, please let us know your preference for a [facility] location. - Please let us know if there is any additional paperwork that needs to be signed for your ADA request. documented in this encounter [facility] 04-30-2024 History of Present illness Narrative VIRTUAL VISIT PROGRESS NOTE This is a virtual visit using [employer] Zoom Video Visit. It required patient-provider interaction for the medical decision making as documented below. I have communicated my name and active licensure. The patient's identity and physical location were verified at the time of this visit. Either the patient or their legal international sales representative has been informed of the risks [...] abdominal pain Fibromyalgia Dr. 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 Kelly @[facility] Migraine with aura visual aura; diagnosed with [...] reaction.Seek emergent medical care immediately after use.Disp:1 2-pakw/weight trainer naratriptan (AMERGE) 2.5 mg tablet Take [...] Faustina Carcamo MD documented in this encounter [facility] 04-30-2024 Note [facility] 04-24-2024 Telephone encounter Note Please sign these orders, patient needs syringes to go with her new Ilaris prescription. Patient is new to [facility] not new to Ilaris. Thank you Requested Prescriptions Pending Prescriptions Disp Refills Syringe with Needle, Disp, 3 mL 18 x 1 1/2 1 Each 12 Sig: Use to draw up ilaris dose Syringe with Needle, Disp, 1 mL 27 x 1/2 1 Each 12 Sig: Use to inject subcutaneous Ilaris dose Please review and advise. Ramin Glasgow RPh [facility] 04-24-2024 Miscellaneous Notes Please sign these orders, patient needs syringes to go with her new Ilaris prescription. Patient is new to [facility] not new to Ilaris. [...] Ramin Glasgow RPh documented in this encounter [facility] 04-19-2024 History of Present illness Narrative [facility] received prescription(s) for Ilaris from [place]'s office. Benefits investigation was conducted, indicating that a prior authorization is required by patient's insurance plan with [place] Medicaid/[place]. Encounter will be updated once prior authorization has been submitted by [facility]. Ronnie Yoon ([facility]) [facility] FAX: documented in this encounter [facility] 04-19-2024 Note [facility] 04-19-2024 Note HNO ID: [id number] Author: ?, ?, ? Service: ? Author Type: ? Type: Progress Notes Filed: 04/23/2024 16:13 Note Text: [facility] 04-19-2024 Note [facility] 04-18-2024 Telephone encounter Note Images from the original note were not included. Most recent Rheumatology visit: 03/12/2024 (with Silvia Tucker) Last Bone Density on file: None on file Rheumatology Care Team: None on file Recent Office Visits - This Specialty 03/12/2024 SO-JILLIAN (systemic onset juvenile idiopathic arthritis) ([facility]) Rheumatology Silvia Tucker MD 09/09/2023 SO-JILLIAN (systemic onset juvenile idiopathic arthritis) ([facility]) Rheumatology Silvia Tucker MD 03/24/2023 Periodic fever syndrome ([facility]) Rheumatology/Pulmonary Silvia Tucker MD Upcoming Rheumatology Appointments - Next 365 Days Visit Type Date Time Department [facility] 07/30/2024 10:00 AM [facility] INDP CBC: Latest Ref Rng [...] diagnoses: SO-JILLIAN (systemic onset juvenile idiopathic arthritis) ([facility]) SEDIMENTATION RATE, WESTERGREN [SQWSR] 07/23/24 10/22/24 03/12/24 Auth. provider: Silvia Tucker MD Assoc. diagnoses: SO-JILLIAN (systemic onset juvenile idiopathic arthritis) ([facility]) CREATININE BLD [SQCRET] 07/23/24 10/22/24 03/12/24 Auth. provider: Silvia Tucker MD Assoc. diagnoses: SO-JILLIAN (systemic onset juvenile idiopathic arthritis) ([facility]) UREA NITROGEN [SQBUN] 07/23/24 10/22/24 03/12/24 Auth. provider: Silvia Tucker MD Assoc. diagnoses: SO-JILLIAN (systemic onset juvenile idiopathic arthritis) ([facility]) VITAMIN D 25 HYDROXY [SQVITD] 07/23/24 10/22/24 03/12/24 Auth. provider: Silvia Tucker MD Assoc. diagnoses: SO-JILLIAN (systemic onset juvenile idiopathic arthritis) ([facility]) Lorie Nazario RN [facility] 04-18-2024 Miscellaneous Notes Images from the original note were not included. Most recent Rheumatology visit: 03/12/2024 (with Silvia Tucker) Last Bone Density on file: None on file Rheumatology Care Team: None on file Recent Office Visits - This Specialty 03/12/2024 SO-JILLIAN (systemic onset juvenile idiopathic arthritis) ([facility]) Rheumatology Silvia Tucker MD 09/09/2023 SO-JILLIAN (systemic onset juvenile idiopathic arthritis) ([facility]) Rheumatology Silvia Tucker MD 03/24/2023 Periodic fever syndrome ([facility]) Rheumatology/Pulmonary Silvia Tucker MD Upcoming Rheumatology Appointments - Next 365 Days Visit Type Date Time Department [facility] 07/30/2024 10:00 AM [facility] IN[facility] CBC: Latest Ref Rng [...] Interval Expires Ordered Last Rel. ALT/SGPT [SQALT] 1 Every 3 months 07/05/24 07/06/23 02/09/24 Auth. provider: Silvia Tucker MD Assoc. diagnoses: SO-JILLIAN (systemic onset juvenile idiopathic arthritis) (HCC), Periodic fever syndrome (HCC) AST/SGOT BLD [SQAST] 14 Every 3 months 07/05/24 07/06/23 02/09/24 Auth. [...] diagnoses: SO-JILLIAN (systemic onset juvenile idiopathic arthritis) ([facility]) C-REACTIVE PROTEIN [SQCRP] 07/23/24 10/22/24 03/12/24 Auth. provider: Silvia Tucker MD Assoc. diagnoses: SO-JILLIAN (systemic onset juvenile idiopathic arthritis) ([facility]) COMPLETE BLOOD COUNT AND DIFFERENTIAL [SQCBCDIF] 07/23/24 10/22/24 03/12/24 Auth. provider: Silvia Tucker MD Assoc. diagnoses: SO-JILLIAN (systemic onset juvenile idiopathic arthritis) ([facility]) SEDIMENTATION RATE, WESTERGREN [SQWSR] 07/23/24 10/22/24 03/12/24 Auth. provider: Silvia Tucker MD Assoc. diagnoses: SO-JILLIAN (systemic onset juvenile idiopathic arthritis) ([facility]) CREATININE BLD [SQCRET] 07/23/24 10/22/24 03/12/24 Auth. provider: Silvia Tucker MD Assoc. diagnoses: SO-JILLIAN (systemic onset juvenile idiopathic arthritis) ([facility]) UREA NITROGEN [SQBUN] 07/23/24 10/22/24 03/12/24 Auth. provider: Silvia Tucker MD Assoc. diagnoses: SO-JILLIAN (systemic onset juvenile idiopathic arthritis) ([facility]) VITAMIN D 25 HYDROXY [SQVITD] 07/23/24 10/22/24 03/12/24 Auth. provider: Silvia Tucker MD Assoc. diagnoses: SO-JILLIAN (systemic onset juvenile idiopathic arthritis) ([facility]) Lorie Nazario RN THIS IS NOT A DUPLICATE Patient no longer using [facility] [email or web address]. documented in this encounter [facility] 04-17-2024 Telephone encounter Note THIS IS NOT A DUPLICATE Patient no longer using [facility] [email or web address]. [facility] 04-03-2024 Telephone encounter Note Pt is requesting to transfer care to you. It appears was seeing another provider from [facility], [facility]. Is this patient an appropriate fit and do we need to have the provider change the referral to psychology? Please advise. [facility] 04-03-2024 Miscellaneous Notes Pt is requesting to transfer care to you. It appears was seeing another provider from [facility], [facility]. Is this patient an appropriate fit and do we need to have the provider change the referral to psychology? Please advise. documented in this encounter [facility] 04-03-2024 Note [facility] 04-03-2024 History of Present illness Narrative [...] a healthy diet and stay active. 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 Terrazas No date: Inflammatory polyarthritis (HCC) No date: Joint pain Comment: Muck Miner- Dr. Kelly @[facility] No date: Migraine with aura Comment: visual [...] PSYCHIATRY 3 mo follow up Genaro Morales APRN.SEAL MIXING OPERATOR 6 mo follow up Faustina Carcamo MD Schedule appt with senior linux administrator and Dr. Tomasa Morales APRN.CNS Medical Decision Making: Problems: Moderate: 2+ stable chronic illnesses Data: Unique test result(s) reviewed: 3+ Risk: Moderate: Drug management Medical Decision Making Level: 4 - Moderate documented in this encounter [facility] 04-02-2024 History of Present illness Narrative [...] PATIENT PRESENTS WITH AN IMPLANTABLE OR ATTACHED DATA TECHNICIAN: No RADIOLOGY DEPARTMENT: General X-ray: Exam(s) Completed: Chest X-Ray PERIPHERAL IV DATA: Not applicable SIGNED BY: RT Jerry(R) April 02, 2024 1:26 PM documented in this encounter [facility] 04-02-2024 Note [facility] 04-02-2024 Telephone encounter Note I spoke [...] steps should be regarding tx. Please advise. [facility] 04-02-2024 Miscellaneous Notes I spoke with [...] tx. Please advise. documented in this encounter [facility] 03-29-2024 Telephone encounter Note Approved until 03/27/2025 [facility] 03-29-2024 Miscellaneous Notes Approved until 03/27/2025 Form and up dated LAVONNE faxed. Pt has a new insurance and will need a new PA on the Ilaris, PA started for Ilaris. documented in this encounter [facility] 03-29-2024 Instructions Meryl Zheng RN - [...] glands, joint and muscle pain, weakness and Guillain-Jacksonville syndrome. documented in this encounter [facility] 03-29-2024 Note [facility] 03-29-2024 History of Present illness Narrative [...] Meryl Zheng RN documented in this encounter [facility] 03-29-2024 Telephone encounter Note Can you please file pending HPV order. The incorrect order was filed. Thank you. Qian Estevez RN [facility] 03-29-2024 Instructions Qian Estevez RN - [...] glands, joint and muscle pain, weakness and Guillain-Jacksonville syndrome. documented in this encounter [facility] 03-29-2024 Miscellaneous Notes Can you please file pending HPV order. The incorrect order was filed. Thank you. Qian Estevez RN documented in this encounter [facility] 03-28-2024 Telephone encounter Note Form and up dated LAVONNE faxed. [facility] 03-27-2024 Telephone encounter Note Pt has a new insurance and will need a new PA on the Ilaris, [facility] 03-19-2024 Telephone encounter Note PA started for Ilaris. [facility] 03-15-2024 Instructions Shellie Bentley MA - [...] your doctor's office. documented in this encounter [facility] 03-15-2024 Note [facility] 03-15-2024 History of Present illness Narrative [...] Karen Jenkins MD documented in this encounter [facility] 03-12-2024 Telephone encounter Note Tollhouse scheduled by PSS. Maile Stacy RN [facility] 03-12-2024 Miscellaneous Notes Tollhouse scheduled by PSS. Maile Stacy RN Patient notified and voiced understanding of results. Patient needs to be financially cleared before scheduling. Message sent to financial counselor. Patient aware that we will call her back to schedule once cleared. Janett Heard RN Pap normal but HPV still positive, she will need a colp. Order filed. Nani Freeman APRN.CNP documented in this encounter [facility] 03-12-2024 Telephone encounter Note Patient notified and voiced understanding of results. Patient needs to be financially cleared before scheduling. Message sent to financial counselor. Patient aware that we will call her back to schedule once cleared. Janett Heard RN [facility] 03-12-2024 Telephone encounter Note Pap normal but HPV still positive, she will need a colp. Order filed. Nani Freeman APRN.LIZZIE [facility] 03-12-2024 History of Present illness Narrative MD Liliam Lobato March 08, 2024 Referring Provider: PCP: Faustina Carcamo MD Chief Complaint: Follow up Background Rheumatologic History: Previously seen by multiple providers in our division From Dr. Lucero - Started having fevers in [place]/Senior year of high school. 16-19yo Was later diagnosed with inflammatory arthritis. [id number] Was treated with hydroxychloroquine + methotrexate While [...] chest, when she tries to sleep at [facility] she has difficulty laying down. If [...] 6 times/year (20mg tapered down) -IM steroids [id number] q3-4 months -Prednisone 2010- 2012 - 6 week long tapers - q 2-3 months -Prednisone 2012 - 2017 - q 3-4 months -Prednisone - last Jul 2020 - 20mg taper by 5mg every 3 days -Anakinra: 07/2018 - 08/2019 (D/C due to ineffectiveness, recurrent flares and injection site reactions) Plan at [facility]: Assessment and Plan: 30 year old [...] osteoporosis - ICD9: V82.81, ICD10: Z13.820 -Prior meterman steroid use along with history of osteoporosis [...] coverage. PAST MEDICAL HISTORY Diagnosis Date Anxiety Kaitelyn Vira Asthmatic bronchitis recurrent episodes since pneumonia fall and winter 2011 Depression Angeli Constantino Epigastric abdominal pain Fibromyalgia Dr. 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 Kelly @[facility] Migraine with aura visual aura; diagnosed with [...] arrhythmia Snoring Suicide attempt by acetaminophen overdose ([facility]) 06/2014 Syncope Vomiting PAST SURGICAL HISTORY Procedure [...] vaccine, age 12+ yr, monovalent (PFIZER-BIONTECH - ALANIZ TOP) 09/28/2021 COVID-19 original vaccine, age 12+ yr, monovalent (PFIZER-BIONTECH - PURPLE TOP) 10/11/2020 11/01/2020 04/06/2021 COVID-19 vaccine, age 12+ yr, 2022- season (PFIZER-BIONTECH) 06/22/2023 COVID-19 vaccine, age 12+ yr, bivalent (PFIZER-BIONTECH) 07/28/2022 Haemophilus influenzae b (HbOC) vaccine, 4-dose [...] reaction.Seek emergent medical care immediately after use.Disp:1 2-pakw/weight trainer 1 Each 2 naratriptan (AMERGE) 2.5 [...] RAGWEED VERIFIED BY SKIN TESTING Physical Exam: [facility] 12/31/2021 General: Not pale, no jaundice, not [...] vitamin D deficiency. Advised her to take [id number] vitamin D supplement 800 to 1000 units/day. Recommendations/Plan Plan discussed with patient Return Visit: Follow up Jul 30 at 10 I spent a total of 40 minutes on the date of the service which included preparing to see the patient, [id number] patient care, completing clinical documentation, obtaining and/or [...] Swollen Glands: Yes documented in this encounter [facility] 03-12-2024 Note [facility] 03-12-2024 Instructions Silvia Tucker MD - 03/12/2024 10:17 AM EDT Tell me DAR when Medicaid is approved Follow up Jul 30 at 10 Labs 1 week before documented in this encounter [facility] 02-27-2024 Note [facility] 02-27-2024 History of Present illness Narrative [...] L0 SAB0 IAB0 Ectopic0 Multiple0 Live Births0 Risk Management Analyst History LMP: 12/31/2021, IUD Age at Menarche: Age at First : Age at Menopause: Risk Management Analyst History Comments: Sexual Activity: Yes; Male; mirena inserted 11/2021 Contraception: I.U.D., Condom PAST MEDICAL HISTORY Diagnosis Date Anxiety Angeli Constantino Asthmatic bronchitis recurrent episodes since pneumonia fall and winter Depression Angeli Constantino Epigastric abdominal pain Fibromyalgia Dr. 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 Kelly @[facility] Migraine with aura visual aura; diagnosed with [...] arrhythmia Snoring Suicide attempt by acetaminophen overdose ([facility]) 06/2014 Syncope Vomiting PAST SURGICAL HISTORY Procedure [...] external genitalia normal, normal Bartholin's glands, urethra, Blissfield's glands, no vulvar lesions, no cervical lesions, [...] Ayaan Rowley APRN.CNM documented in this encounter [facility] 02-13-2024 Telephone encounter Note Latex, banana [...] fresh fruits if laboratory evaluation is negative.) [facility] 02-13-2024 Miscellaneous Notes Latex, banana and [...] evaluation is negative.) documented in this encounter [facility] 01-17-2024 History of Present illness Narrative [...] L0 SAB0 IAB0 Ectopic0 Multiple0 Live Births0 Risk Management Analyst History LMP: 12/31/2021, IUD Age at Menarche: Age at First : Age at Menopause: Risk Management Analyst History Comments: Sexual Activity: Yes; Male; mirena inserted 11/2021 Contraception: I.U.D., Condom PAST MEDICAL HISTORY Diagnosis Date Anxiety Angeli Constantino Asthmatic bronchitis recurrent episodes since pneumonia fall and winter Depression Angeli Constantino Epigastric abdominal pain Fibromyalgia Dr. 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 Kelly @[facility] Migraine with aura visual aura; diagnosed with [...] reaction.Seek emergent medical care immediately after use.Disp:1 2-pakw/weight trainer naratriptan (AMERGE) 2.5 mg tablet Take [...] external genitalia normal, normal Bartholin's glands, urethra, Blissfield's glands, no vulvar lesions, no cervical lesions, [...] Karen Jenkins MD documented in this encounter [facility] 01-02-2024 History of Present illness Narrative This note was created using [employer]. Subjective Liliam Thompson is a 33 year [...] abdominal pain Fibromyalgia Dr. 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 Kelly @[facility] Migraine with aura visual aura; diagnosed with [...] arrhythmia Snoring Suicide attempt by acetaminophen overdose ([facility]) 06/2014 Syncope Vomiting Current Outpatient Medications Medication Sig EPINEPHrine (EPIPEN 2-ISIDRO) 0.3 mg/0.3 mL auto-injector Inject 0.3 mL intramuscularly as needed. For allergic reaction.Seek emergent medical care immediately after use.Disp:1 2-pakw/weight trainer naratriptan (AMERGE) 2.5 mg tablet Take [...] in adult, unspecified whether serious comorbidity present ([facility]) E66.01 Z68.43 Weight trending down. Continue efforts [...] the date of the service which included kfma-ua-bwwl patient care, completing clinical documentation, obtaining and/or reviewing separately obtained history, performing a medically appropriate examination, counseling and educating the patient/family/caregiver, and ordering medications, tests, or procedures. Faustina Carcamo MD documented in this encounter [facility] 12-14-2023 History of Present illness Narrative This note was created using shoplyter. Subjective Liliam Thompson is a 33 year [...] MG-POTASSIUM CLAVULANATE 125 MG TABLET Anton Landin APRN.TECHNICAL INTERN documented in this encounter [facility] 12-08-2023 Nurse Note Patient instructed on proper use of epi pen administration in case of systemic reaction after latex reaction. Instructed patient to seek medical attention after use. Patient demonstrated proper technique for using epi pen. [facility] 12-08-2023 Nurse Note Patient instructed on [...] over an hour. documented in this encounter [facility] 12-08-2023 Nurse Note Patient her for [...] barky cough lasted for over an hour. [facility] 12-08-2023 History of Present illness Narrative [...] daily as needed. She may also use jasc-ama-gaidwkt Patanol, Pataday or Zaditor eyedrops as needed. [...] sooner should new symptoms or problems arise. [address] MD Liliam Bina Thompson is a 33 year old female [...] recent issues with urticaria. 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 Kelly @[facility] Migraine with aura visual aura; diagnosed with [...] arrhythmia Snoring Suicide attempt by acetaminophen overdose ([facility]) 06/2014 Syncope Vomiting MEDICATIONS: naratriptan (AMERGE) 2.5 [...] no. 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 Stopped 03/2013. [employer] ENVIRONMENTAL HISTORY: Lives in a house Age of home: 50 years Heating: gas Woodburning fireplace in the home: no Air conditioning: Central air Basement: Damp basement Enoch: Wfii-gu-mdju carpeting Dust mite controls: Dust mite controls [...] tests were negative documented in this encounter [facility] 10-27-2023 Instructions Qian Pena APRN.CNP - 10/27/2023 9:52 AM EDT PLAN AND RECOMMENDATIONS: Continue the same medications Follow up with Dr Zambrano 6 months CONTACT INFORMATION: Qian Pena APRN.LIZZIE Cardiology Nurse Practitioner Section of Regional Cardiology [place] Dept of Cardiovascular Medicine [facility] [place] [address] [place], [place] [address] Office Office documented in this encounter [facility] 10-27-2023 History of Present illness Narrative Images from the original note were not included. [facility] [place] Kinjal Meeks Department of Cardiovascular Medicine SECTION OF CLINICAL CARDIOLOGY OUTPATIENT VISIT DATE October 27, 2023 OUTPATIENT VISIT TYPE ESTABLISHED PRIMARY CARE PHYSICIAN: Faustina Carcamo [address] [place] [address] REFERRING PHYSICIAN: No referring provider defined for [...] abdominal pain Fibromyalgia Dr. 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 Kelly @[facility] Migraine with aura visual aura; diagnosed with [...] arrhythmia Snoring Suicide attempt by acetaminophen overdose ([facility]) 06/2014 Syncope Vomiting PAST SURGICAL HISTORY Procedure [...] Cardiology Nurse Practitioner Section of [facility] Cardiology [place] Dept of Cardiovascular Medicine [facility] [place] [address] [place] [address] Office Office documented in this encounter [facility] 10-24-2023 History of Present illness Narrative VIRTUAL VISIT PROGRESS NOTE This is a virtual visit using [employer] Zoom Video Visit. It required patient-provider interaction for the medical decision making as documented below. I have communicated my name and active licensure. The patient's identity and physical location were verified at the time of this visit. Either the patient or their legal international sales representative has been informed of the risks [...] through box of condoms for work. 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 Has appointment end [...] and no more refills [place] June 2023. Continues to follow up with neurologist. Noted Baclofen added in case trigeminal neuralgia issue. HISTORY REVIEWED (electronic chart updated): PAST MEDICAL HISTORY Diagnosis Date Anxiety Angeli Constantino Asthmatic bronchitis recurrent episodes since pneumonia fall and winter of 2011 Depression Angeli Constantino Epigastric abdominal pain Fibromyalgia Dr. 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 Kelly @[facility] Migraine with aura visual aura; diagnosed with [...] arrhythmia Snoring Suicide attempt by acetaminophen overdose ([facility]) 06/2014 Syncope Vomiting PAST SURGICAL HISTORY Procedure [...] Abs Lymph 1.00 - 4.00 k/uL 2.83 [place]% % 9.7 Abs [place] <0.87 k/uL 0.67 Eosin% % 1.9 Abs [...] breathing and irritates eyes. Will be seeing subcontract administrator fur further evaluation. Given letter for work [...] Faustina Carcamo MD documented in this encounter [facility] 10-14-2023 History of Present illness Narrative [...] abdominal pain Fibromyalgia Dr. 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 Kelly @[facility] Migraine with aura visual aura; diagnosed with [...] arrhythmia Snoring Suicide attempt by acetaminophen overdose ([facility]) 06/2014 Syncope Vomiting Social History Tobacco Use [...] available then 6 mo MD Genaro Rudolph APRN.SEAL MIXING OPERATOR Medical Decision Making: Problems: Low: Acute, uncomplicated illness or injury Data: Unique test(s) ordered: 3+ Risk: Low: Low risk from testing/treatment Medical Decision Making Level: 3 - Low documented in this encounter [facility] 10-14-2023 History of Present illness Narrative [...] PATIENT PRESENTS WITH AN IMPLANTABLE OR ATTACHED DATA TECHNICIAN: No RADIOLOGY DEPARTMENT: General X-ray: Exam(s) Completed: Upper Extremity X-Ray(s): Shoulder, AP / TRUE AP left PERIPHERAL IV DATA: Not applicable SIGNED BY: RT Elan(R) October 14, 2023 11:48 AM documented in this encounter [facility] 10-14-2023 Miscellaneous Notes No concerning findings documented in this encounter [facility] 10-14-2023 Progress note Formatting of t his note might be different from the original. No concerning findings [facility] 09-23-2023 Miscellaneous Notes Please approve this medication, medication sent to the wrong pharmacy. documented in this encounter [facility] 08-21-2023 Instructions Rob Toledo PA-C - 08/21/2023 [...] taking this medication. documented in this encounter [facility] 08-19-2023 History of Present illness Narrative Headache Center - Follow up Virtual Visit This visit was conducted as a virtual visit, with patient's permission, via Zoom. Patient location - [place], [place] Liliam Thompson was identified by name [...] visit. Either the patient or their legal international sales representative has been informed of the risks [...] with Dr. 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 Looking to go to [employer]. Did well on the LAST but [...] Dr. 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 Kelly @[facility] Migraine with aura visual aura; diagnosed with [...] spontaneous and fluent without dysarthria. 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 Encounter Diagnosis ICD-10-CM 1. Pelvic pain in female R10.2 Please see report under imaging tab. Shannan Ballesteros MD July 26, 2023 9:13 AM documented in this encounter [facility] 07-22-2023 History of Present illness Narrative [...] L0 SAB0 IAB0 Ectopic0 Multiple0 Live Births0 Risk Management Analyst History LMP: 12/31/2021, IUD Age at Menarche: Age at First : Age at Menopause: Risk Management Analyst History Comments: Sexual Activity: Yes; Male; mirena inserted 11/2021 Contraception: I.U.D., Condom PAST MEDICAL HISTORY Diagnosis Date Anxiety Angeli Constantino Asthmatic bronchitis recurrent episodes since pneumonia fall and winter Depression Angeli Constantino Epigastric abdominal pain Fibromyalgia Dr. 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 Kelly @[facility] Migraine with aura visual aura; diagnosed with [...] arrhythmia Snoring Suicide attempt by acetaminophen overdose ([facility]) 06/2014 Syncope Vomiting PAST SURGICAL HISTORY Procedure [...] external genitalia normal, normal Bartholin's glands, urethra, Blissfield's glands, no vulvar lesions, no cervical lesions, good vaginal support, physiologic discharge present, normal appearing perineal body and perianal region BIMANUAL: uterus normal size, shape and consistency, no adnexal masses, and non-tender NEURO: alert and oriented x3,exam grossly non-focal EXTREMITIES: normal ASSESSMENT AND PLAN: Encounter Diagnosis ICD-10-CM 1. Pelvic pain in female R10.2 PELVIC US WHI Joe Contreras MD Transport Technician offered: Patient declines. Monica Hernandez RN documented in this encounter [facility] 07-06-2023 Miscellaneous Notes Looks like her standing orders are for every 3 months? She will need orders for 2 more months prior to every 3 months? documented in this encounter [facility] 06-23-2023 Miscellaneous Notes Spoke with pt [...] pharmacy. No need to notify patient. Beena Olsen documented in this encounter [facility] 06-21-2023 Miscellaneous Notes Spoke with [facility], the pharmacist will send me the prior auth for the Eletriptan by fax. Stefani Rangel NI PHONE Name of caller : Liliam Relationship to patient : Self Was permission obtained from patient ? Yes Patient identified by Name and Date of . ( Liliam Thompson, 1990). Yes Reason for Call : Patient called to ask about a referral from Dr. Samples to another Headache specialist. FYI: Patient asked about her Eletriptan prior auth, I will call [facility] after 9:00 am to ask to send us the prior auth letter by fax. Number to return call [phone]. Stefani Rangel documented in this encounter [facility] 06-06-2023 History of Present illness Narrative Images from the original note were not included. This note was created using fitkit. Subjective Liliam Thompson is a 32 year [...] Patsy Mobley PA-C documented in this encounter [facility] 06-06-2023 History of Present illness Narrative [...] 2023 9:07 AM documented in this encounter [facility] 05-28-2023 Note HNO ID: [id number] Author: Note, Interface Service: ? Author Type: ? Type: Progress Notes Filed: 05/28/2023 3:59 AM Note Text: Epic Scheduled Downtime: 05/28/2023 1:00:00 AM to 05/28/2023 1:28:00 AM [facility] 05-25-2023 History of Present illness Narrative This [...] Minutes of time spent during this encounter. Gonzalze Reyes PA-C documented in this encounter [facility] 05-20-2023 Instructions Genaro Morales APRN.SEAL MIXING OPERATOR - 05/20/2023 8:18 AM EDT For POTS [...] to insurance not covering. Take Toradol tablets aapuxe-inv-jricr for the next 2 to 5 days as needed for headache then discontinue. Take with food. You could additionally add xfbk-mio-ttcqhzh Pepcid or omeprazole if needed for GI upset. documented in this encounter [facility] 05-20-2023 History of Present illness Narrative [...] also increase Zonegran. Switch to Relpax from [facility]. She presented to [facility] yesterday with report of palpitations and lightheadedness. [...] exertion. Notes pre-syncopal sensation, no syncope. 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 Seen in neurology 2018 regarding POTS. [...] abdominal pain Fibromyalgia Dr. 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 Kelly @[facility] Migraine with aura visual aura; diagnosed with [...] arrhythmia Snoring Suicide attempt by acetaminophen overdose ([facility]) 06/2014 Syncope Vomiting Social History Tobacco Use [...] to insurance not covering. Take Toradol tablets saiujw-jco-rchnb for the next 2 to 5 days as needed for headache then discontinue. Take with food. You could additionally add reha-enb-klbfxkp Pepcid or omeprazole if needed for GI upset. Genaro Morales APRN.SEAL MIXING OPERATOR Medical Decision Making: Problems: Moderate: 1+ chronic illnesses with change Data: Unique test result(s) reviewed: 3+ Unique test(s) ordered: 3+ Risk: Moderate: Drug management Medical Decision Making Level: 4 - Moderate documented in this encounter [facility] 05-19-2023 Miscellaneous Notes Patient notified of [...] today, if possible. Pt was seen at [facility] ER last night due to palpitations. BP [...] possible. Thank you. documented in this encounter [facility] 04-25-2023 History of Present illness Narrative I have communicated my name and active licensure. The patient's identity and physical location were verified at the time of this visit. Either the patient or their legal international sales representative has been informed of the risks and benefits of -- and alternatives to -- treatment through a remote evaluation and consents to proceed with the evaluation remotely. 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 Looking to go to [employer] school. Did well on the LAST but [...] month? : 7 documented in this encounter [facility] 04-21-2023 Miscellaneous Notes Physician: Dr. Lyons Call from patient requesting refill. Please E-Scribe Last OV: 09/01/2022 Future OV: 04/25/2023 Requested Prescriptions Pending Prescriptions Disp Refills naratriptan (AMERGE) 2.5 mg tablet 9 tablet 11 Sig: Take 1 tablet by mouth as needed for migraine headache (see administration instructions). 2.5 mg at onset of headache, may repeat in 4 hours if needed Pharmacy Name: [facility] Pharmacy Stefani Rangel documented in this encounter [facility] 04-18-2023 Instructions Trudi Mcneal APRN.CNP - 04/18/2023 2:10 PM EDT Stay home [...] the counter medications as directed by the desk officer Follow up with your doctor as needed. ER if chest pain, difficulty breathing, shortness of breath, or difficulty swallowing I documented in this encounter [facility] 04-18-2023 History of Present illness Narrative Telemedicine Visit - Distance Health Virtual Visit Note Patient seen on [facility] Online platform. Location of patient: [place] History of Present Illness Liliam Thompson is [...] one again this evening. Works at a [employer] PAST MEDICAL HISTORY Diagnosis Date Anxiety Deangeloamarilis Constantino Asthmatic bronchitis recurrent episodes since pneumonia fall and winter Depression Melbashannanamarilis Constantino Epigastric abdominal pain Fibromyalgia Dr. 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 Kelly @[facility] Migraine with aura visual aura; diagnosed with [...] arrhythmia Snoring Suicide attempt by acetaminophen overdose ([facility]) 06/2014 Syncope Vomiting PAST SURGICAL HISTORY Procedure [...] one again this evening. Works at a [employer] Mild temperature elevation, appeared stable, non-toxic and [...] the counter medications as directed by the desk officer Follow up with your doctor as needed. [...] would like to continue care with a [facility] Virtual Primary Care physician, please ask your provider to place a Establish Primary Care order. Use SynapDx to manage your care, wherever you are, 07/03, on your mobile device or computer. SynapDx connects you to [employer] so you can access all your health information in one place and also schedule and request virtual appointments with primary care providers. documented in this encounter [facility] 04-18-2023 History of Present illness Narrative Patient cancelled before being connected. Aki Jiménez APRN.CNP documented in this encounter [facility] 04-12-2023 Miscellaneous Notes Actemra prior authorization has been approved; however, due to insurance restrictions Rx must be filled at [facility]. If refill request approved, Rx will be sent to [facility] for processing. Thanks Requested Prescriptions Pending Prescriptions Disp Refills tocilizumab (ACTEMRA) 162 mg/0.9 mL 3.6 mL 11 Sig: Inject 162 mg ( 1 syringe) subcutaneously one time a week. Please review and advise. Ramin Glasgow Rph documented in this encounter [facility] 04-06-2023 History of Present illness Narrative [facility] received prescription(s) for Actemra from Dr. Silvia Tucker's office. Benefits investigation was conducted, indicating that a prior authorization is required by patient's insurance plan with [employer]. Encounter will be updated once prior authorization has been submitted by [facility]. Kerri Escobedo [facility] Event Attendant, Specialty Pharmacy [facility] [address] / [id number] [place] [address] Email: [email or web address] (Ronnie Yoon) [facility] received prescription(s) for Actemra from Dr. Silvia Tucker's office. Benefits investigation was conducted, indicating that a prior authorization is required. PA was initiated and pending review. Plan Name: [employer] Plan Agent/Johnson: CMM - [id number] Phone/ / [phone] Timeline: Michele Tian [facility] documented in this encounter [facility] 03-17-2023 Miscellaneous Notes Received request for additional info from insurance for Ilaris PA. Filled out form and returned to [facility]. Daly Burton PharmD, HANNA Rheumatology Clinical Quality Assurance Engineer Resubmitted PA for ilaris under diagnosis of sJIA. Johnson: [id number] Awaiting determination. Daly Burton PharmD, HANNA Rheumatology Clinical Quality Assurance Engineer Received denial letter for Appeal for Ilaris 150 mg/ml vial Appeal Ref#[id number] Plan Code [id number]/ Appeal date 03/11/23 Letter scanned under scanned documents 03/14/23 @ 4:11pm Urgent appeal letter for Ilaris and supporting clinical documentation faxed to [facility] at [phone]. Received confirmation via RightFax. Daly Burton PharmD, HANNA Rheumatology Clinical Quality Assurance Engineer Received a call from patient ask if the appeal has been processed for Ilaris Patient can be reach at [phone] (home) documented in this encounter [facility] 02-25-2023 History of Present illness Narrative [...] L0 SAB0 IAB0 Ectopic0 Multiple0 Live Births0 Risk Management Analyst History LMP: 12/31/2021, IUD Age at Menarche: Age at First : Age at Menopause: Risk Management Analyst History Comments: Sexual Activity: Yes; Male Contraception: No contraception data on record PAST MEDICAL HISTORY Diagnosis Date Anxiety Angeli Constantino Asthmatic bronchitis recurrent episodes since pneumonia fall and winter Depression Angeli Constantino Epigastric abdominal pain Fibromyalgia Dr. 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 Kelly @[employer] Migraine with aura visual aura; diagnosed with [...] arrhythmia Snoring Suicide attempt by acetaminophen overdose ([facility]) 06/2014 Syncope Vomiting PAST SURGICAL HISTORY Procedure [...] external genitalia normal, normal Bartholin's glands, urethra, Blissfield's glands, no vulvar lesions, no cervical lesions, [...] year or sooner as needed- living in [place]- may transfer to [facility] surety bond agent Ayaan Rowley APRN.CNM documented in this encounter [facility] 02-16-2023 Miscellaneous Notes Most recent Rheumatology visit: 12/03/2022 (with Silvia Tucker) Recent Office Visits - This Specialty 12/03/2022 Periodic fever syndrome (HCC) Rheumatology Silvia Tucker MD 03/24/2022 Periodic fever syndrome (HCC) Rheumatology Silvia Tucker MD 09/25/2021 Periodic fever syndrome (HCC) Rheumatology Silvia Tucker MD Upcoming Rheumatology Appointments - Next 365 Days Visit Type Date Time Department VIDEO SPEC EST 06/01/2023 2:00 PM [facility] A[facility] CBC: CBC Latest Ref Rng [...] to the patient. documented in this encounter [facility] 02-16-2023 Miscellaneous Notes Please submit prior auth for Ilaris New insurance information [facility] [id number] Please call patient with any questions. Once submitted please send a [employer] message to the patient. Thank you documented in this encounter [facility] 02-07-2023 History of Present illness Narrative This note was created using shoplyter. Subjective Liliam Thompson is a 32 year [...] Dr. 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 Kelly @[facility] Migraine with aura visual aura; diagnosed with [...] evaluation. KILO Drummond documented in this encounter [facility] 01-12-2023 Miscellaneous Notes Submitted PA to holly and submitted to tri on 01/12/23 @ 2pm documented in this encounter [facility] 12-22-2022 Miscellaneous Notes Addressed, seen with PCP on 12/17/2022 documented in this encounter [facility] 12-17-2022 History of Present illness Narrative VIRTUAL VISIT PROGRESS NOTE This is a virtual visit using [employer] video visit. It required patient-provider interaction for the medical decision making as documented below. I have communicated my name and active licensure. The patient's identity and physical location were verified at the time of this visit. Either the patient or their legal international sales representative has been informed of the risks [...] abdominal pain Fibromyalgia Dr. 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 Kelly @[facility] Migraine with aura visual aura; diagnosed with [...] arrhythmia Snoring Suicide attempt by acetaminophen overdose ([facility]) 06/2014 Syncope Vomiting PAST SURGICAL HISTORY Procedure [...] History and medications reviewed. Discussed form from [place] and work denied all accommodations requested. Discussed [...] for the form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 moving into a new apartment / [...] Declines EKG in office today. Genaro Morales APRN.DAWSON Medical Decision Making: Problems: Low: Acute, uncomplicated illness or injury Risk: Moderate: Drug management Medical Decision Making Level: 3 - Low documented in this encounter [facility] 12-29-2021 Miscellaneous Notes Reviewed that was [...] to proceed? 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 Please review and advise, Patsy Mcclellan RN documented in this encounter [facility] 12-17-2021 Miscellaneous Notes MRI was approved and MRI was completed on 11/02/21 Patient calling back in to follow up on why MRI was denied - Jeannette states they tried to reach the office to get information needed Jeannette just needs a letter from the provider that patient has been doing her home stretches which patient states she has done daily since instructed Please advise and call patient with update documented in this encounter [facility] 12-04-2021 Instructions Sayda Manzano MA - [...] contact the office. documented in this encounter [facility] 12-04-2021 History of Present illness Narrative [...] IUD source: office provided IUD lot #: [id number] Exp date: 09/2023 UNIVERSAL PROTOCOL / SAFETY [...] Ayaan Rowley APRN.CNM documented in this encounter [facility] 11-30-2021 Miscellaneous Notes Last OV: 11/13/2021 Next OV: 03/30/2022 documented in this encounter [facility] 11-24-2021 History of Present illness Narrative [...] which included preparing to see the patient, [id number] patient care, completing clinical documentation, obtaining and/or reviewing separately obtained history, performing a medically appropriate examination and counseling and educating the patient/family/caregiver. Mikel Stevens MD documented in this encounter [facility] 11-17-2021 Nurse Note Virtual visit documented in this encounter [facility] 11-17-2021 History of Present illness Narrative [...] direct pt contact) documented in this encounter [facility] 11-12-2021 Miscellaneous Notes Patient's last appointment was 10/29/2021 documented in this encounter [facility] 02-08-2022 History of Present illness Narrative Images from the original note were not included. This note was created using fitkit. Subjective Liliam Thompson is a 30 year [...] abdominal pain Fibromyalgia Dr. 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 Kelly @[facility] Migraine with aura visual aura; diagnosed with [...] arrhythmia Snoring Suicide attempt by acetaminophen overdose ([facility]) 06/2014 Syncope Vomiting Current Outpatient Medications Medication [...] Faustina Carcamo MD documented in this encounter [facility] 09-16-2021 History of Present illness Narrative [...] 2021 10:45 AM documented in this encounter [facility] 08-05-2021 History of Present illness Narrative [...] 2021 4:26 PM documented in this encounter [facility] 03-10-2021 History of Past i llness Narrative Problem Noted Date Resolved Date Asthmatic bronchitis 03/10/2021 Overview: recurrent episodes since pneumonia fall and winter of 2011 Inflammatory polyarthritis 11/15 documented as of this encounter (statuses as of 11/13/2021) [facility]-27-2021 History of Past illness Narrative* Problem Noted Date Resolved Date Asthmatic bronchitis 03/10/2021 Overview: recurrent episodes since pneumonia fall and winter of 2011 Inflammatory polyarthritis 11/15 documented as of this encounter (statuses as of 11/17/2021) [facility]-27-2021 History of Past illness Narrative* Problem Noted Date Resolved Date Asthmatic bronchitis 03/10/2021 Overview: recurrent episodes since pneumonia fall and winter of 2011 Inflammatory polyarthritis 11/15 documented as of this encounter (statuses as of 11/25/2021) [address]27-2021 History of Past illness Narrative* Problem Noted Date Resolved Date Asthmatic bronchitis 03/10/2021 Overview: recurrent episodes since pneumonia fall and winter of 2011 Inflammatory polyarthritis 11/15 documented as of this encounter (statuses as of 11/30/2021) [address]27-2021 History of Past illness Narrative* Problem Noted Date Resolved Date Asthmatic bronchitis 03/10/2021 Overview: recurrent episodes since pneumonia fall and winter of 2011 Inflammatory polyarthritis 11/15 documented as of this encounter (statuses as of 12/04/2021) [address]27-2021 History of Past illness Narrative* Problem Noted Date Resolved Date Asthmatic bronchitis 03/10/2021 Overview: recurrent episodes since pneumonia fall and winter of 2011 Inflammatory polyarthritis 11/15 documented as of this encounter (statuses as of 12/14/2021) [address]27-2021 History of Past illness Narrative* Problem Noted Date Resolved Date Asthmatic bronchitis 03/10/2021 Overview: recurrent episodes since pneumonia fall and winter of 2011 Inflammatory polyarthritis 11/15 documented as of this encounter (statuses as of 12/17/2021) [address]27-2021 History of Past illness Narrative* Problem Noted Date Resolved Date Asthmatic bronchitis 03/10/2021 Overview: recurrent episodes since pneumonia fall and winter of 2011 Inflammatory polyarthritis 11/15 documented as of this encounter (statuses as of 12/29/2021) [address]27-2021 History of Past illness Narrative* Problem Noted Date Resolved Date Asthmatic bronchitis 03/10/2021 Overview: recurrent episodes since pneumonia fall and winter of 2011 Inflammatory polyarthritis 11/15 documented as of this encounter (statuses as of 01/05/2022) [address]27-2021 History of Past illness Narrative* Problem Noted Date Resolved Date Asthmatic bronchitis 03/10/2021 Overview: recurrent episodes since pneumonia fall and winter of 2011 Inflammatory polyarthritis 11/15 documented as of this encounter (statuses as of 01/07/2022) [address]27-2021 History of Past illness Narrative* Problem Noted Date Resolved Date Asthmatic bronchitis 03/10/2021 Overview: recurrent episodes since pneumonia fall and winter of 2011 Inflammatory polyarthritis 11/15 documented as of this encounter (statuses as of 01/12/2022) [address]27-2021 History of Past illness Narrative* Problem Noted Date Resolved Date Asthmatic bronchitis 03/10/2021 Overview: recurrent episodes since pneumonia fall and winter of 2011 Inflammatory polyarthritis 11/15 documented as of this encounter (statuses as of 01/13/2022) [address]27-2021 History of Past illness Narrative* Problem Noted Date Resolved Date Asthmatic bronchitis 03/10/2021 Overview: recurrent episodes since pneumonia fall and winter of 2011 Inflammatory polyarthritis 11/15 documented as of this encounter (statuses as of 01/18/2022) [address]27-2021 History of Past illness Narrative* Problem Noted Date Resolved Date Asthmatic bronchitis 03/10/2021 Overview: recurrent episodes since pneumonia fall and winter of 2011 Inflammatory polyarthritis 11/15 documented as of this encounter (statuses as of 01/20/2022) [address]27-2021 History of Past illness Narrative* Problem Noted Date Resolved Date Asthmatic bronchitis 03/10/2021 Overview: recurrent episodes since pneumonia fall and winter of 2011 Inflammatory polyarthritis 11/15 documented as of this encounter (statuses as of 01/21/2022) [address]27-2021 History of Past illness Narrative* Problem Noted Date Resolved Date Asthmatic bronchitis 03/10/2021 Overview: recurrent episodes since pneumonia fall and winter of 2011 Inflammatory polyarthritis 11/15 documented as of this encounter (statuses as of 02/18/2022) [address]27-2021 History of Past illness Narrative* Problem Noted Date Resolved Date Asthmatic bronchitis 03/10/2021 Overview: recurrent episodes since pneumonia fall and winter of 2011 Inflammatory polyarthritis 11/15 documented as of this encounter (statuses as of 02/19/2022) [address]27-2021 History of Past illness Narrative* Problem Noted Date Resolved Date Asthmatic bronchitis 03/10/2021 Overview: recurrent episodes since pneumonia fall and winter of 2011 Inflammatory polyarthritis 11/15 documented as of this encounter (statuses as of 02/22/2022) [address]27-2021 History of Past illness Narrative* Problem Noted Date Resolved Date Asthmatic bronchitis 03/10/2021 Overview: recurrent episodes since pneumonia fall and winter of 2011 Inflammatory polyarthritis 11/15 documented as of this encounter (statuses as of 02/23/2022) [address]27-2021 History of Past illness Narrative* Problem Noted Date Resolved Date Asthmatic bronchitis 03/10/2021 Overview: recurrent episodes since pneumonia fall and winter of 2011 Inflammatory polyarthritis 11/15 documented as of this encounter (statuses as of 02/25/2022) [address]27-2021 History of Past illness Narrative* Problem Noted Date Resolved Date Asthmatic bronchitis 03/10/2021 Overview: recurrent episodes since pneumonia fall and winter of 2011 Inflammatory polyarthritis 11/15 documented as of this encounter (statuses as of 02/27/2022) [address]27-2021 History of Past illness Narrative* Problem Noted Date Resolved Date Asthmatic bronchitis 03/10/2021 Overview: recurrent episodes since pneumonia fall and winter of 2011 Inflammatory polyarthritis 11/15 documented as of this encounter (statuses as of 04/06/2022) [address]27-2021 History of Past illness Narrative* Problem Noted Date Resolved Date Asthmatic bronchitis 03/10/2021 Overview: recurrent episodes since pneumonia fall and winter of 2011 Inflammatory polyarthritis 11/15 documented as of this encounter (statuses as of 04/07/2022) [address]27-2021 History of Past illness Narrative* Problem Noted Date Resolved Date Asthmatic bronchitis 03/10/2021 Overview: recurrent episodes since pneumonia fall and winter of 2011 Inflammatory polyarthritis 11/15 documented as of this encounter (statuses as of 04/13/2022) [address]27-2021 History of Past illness Narrative* Problem Noted Date Resolved Date Asthmatic bronchitis 03/10/2021 Overview: recurrent episodes since pneumonia fall and winter of 2011 Inflammatory polyarthritis 11/15 documented as of this encounter (statuses as of 05/31/2022) [address]27-2021 History of Past illness Narrative* Problem Noted Date Resolved Date Asthmatic bronchitis 03/10/2021 Overview: recurrent episodes since pneumonia fall and winter of 2011 Inflammatory polyarthritis 11/15 documented as of this encounter (statuses as of 06/03/2022) [address]27-2021 History of Past illness Narrative* Problem Noted Date Resolved Date Asthmatic bronchitis 03/10/2021 Overview: recurrent episodes since pneumonia fall and winter of 2011 Inflammatory polyarthritis 11/15 documented as of this encounter (statuses as of 06/14/2022) [address]27-2021 History of Past illness Narrative* Problem Noted Date Resolved Date Asthmatic bronchitis 03/10/2021 Overview: recurrent episodes since pneumonia fall and winter of 2011 Inflammatory polyarthritis 11/15 documented as of this encounter (statuses as of 07/15/2022) [address]27-2021 History of Past illness Narrative* Problem Noted Date Resolved Date Asthmatic bronchitis 03/10/2021 Overview: recurrent episodes since pneumonia fall and winter of 2011 Inflammatory polyarthritis 11/15 documented as of this encounter (statuses as of 07/15/2022) [address]27-2021 History of Past illness Narrative* Problem Noted Date Resolved Date Asthmatic bronchitis 03/10/2021 Overview: recurrent episodes since pneumonia fall and winter of 2011 Inflammatory polyarthritis 11/15 documented as of this encounter (statuses as of 08/03/2022) [address]27-2021 History of Past illness Narrative* Problem Noted Date Resolved Date Asthmatic bronchitis 03/10/2021 Overview: recurrent episodes since pneumonia fall and winter of 2011 Inflammatory polyarthritis 11/15 documented as of this encounter (statuses as of 08/06/2022) [address]27-2021 History of Past illness Narrative* Problem Noted Date Resolved Date Asthmatic bronchitis 03/10/2021 Overview: recurrent episodes since pneumonia fall and winter of 2011 Inflammatory polyarthritis 11/15 documented as of this encounter (statuses as of 08/18/2022) [address]27-2021 History of Past illness Narrative* Problem Noted Date Resolved Date Asthmatic bronchitis 03/10/2021 Overview: recurrent episodes since pneumonia fall and winter of 2011 Inflammatory polyarthritis 11/15 documented as of this encounter (statuses as of 08/18/2022) [address]27-2021 History of Past illness Narrative* Problem Noted Date Resolved Date Asthmatic bronchitis 03/10/2021 Overview: recurrent episodes since pneumonia fall and winter of 2011 Inflammatory polyarthritis 11/15 documented as of this encounter (statuses as of 09/01/2022) [address]27-2021 History of Past illness Narrative* Problem Noted Date Resolved Date Asthmatic bronchitis 03/10/2021 Overview: recurrent episodes since pneumonia fall and winter of 2011 Inflammatory polyarthritis 11/15 documented as of this encounter (statuses as of 09/12/2022) [address]27-2021 History of Past illness Narrative* Problem Noted Date Resolved Date Asthmatic bronchitis 03/10/2021 Overview: recurrent episodes since pneumonia fall and winter of 2011 Inflammatory polyarthritis 11/15 documented as of this encounter (statuses as of 09/16/2022) [address]27-2021 History of Past illness Narrative* Problem Noted Date Resolved Date Asthmatic bronchitis 03/10/2021 Overview: recurrent episodes since pneumonia fall and winter of 2011 Inflammatory polyarthritis 11/15 documented as of this encounter (statuses as of 10/05/2022) [address]27-2021 History of Past illness Narrative* Problem Noted Date Resolved Date Asthmatic bronchitis 03/10/2021 Overview: recurrent episodes since pneumonia fall and winter of 2011 Inflammatory polyarthritis 11/15 documented as of this encounter (statuses as of 10/18/2022) [address]27-2021 History of Past illness Narrative* Problem Noted Date Resolved Date Asthmatic bronchitis 03/10/2021 Overview: recurrent episodes since pneumonia fall and winter of 2011 Inflammatory polyarthritis 11/15 documented as of this encounter (statuses as of 11/10/2022) [address]27-2021 History of Past illness Narrative* Problem Noted Date Resolved Date Asthmatic bronchitis 03/10/2021 Overview: recurrent episodes since pneumonia fall and winter of 2011 Inflammatory polyarthritis 11/15 documented as of this encounter (statuses as of 11/17/2022) [address]27-2021 History of Past illness Narrative* Problem Noted Date Resolved Date Asthmatic bronchitis 03/10/2021 Overview: recurrent episodes since pneumonia fall and winter of 2011 Inflammatory polyarthritis 11/15 documented as of this encounter (statuses as of 12/03/2022) [address]27-2021 History of Past illness Narrative* Problem Noted Date Resolved Date Asthmatic bronchitis 03/10/2021 Overview: recurrent episodes since pneumonia fall and winter of 2011 Inflammatory polyarthritis 11/15 documented as of this encounter (statuses as of 12/10/2022) [address]27-2021 History of Past illness Narrative* Problem Noted Date Resolved Date Asthmatic bronchitis 03/10/2021 Overview: recurrent episodes since pneumonia fall and winter of 2011 Inflammatory polyarthritis 11/15 documented as of this encounter (statuses as of 12/16/2022) [address]27-2021 History of Past illness Narrative* Problem Noted Date Resolved Date Asthmatic bronchitis 03/10/2021 Overview: recurrent episodes since pneumonia fall and winter of 2011 Inflammatory polyarthritis 11/15 documented as of this encounter (statuses as of 12/17/2022) [address]27-2021 History of Past illness Narrative* Problem Noted Date Resolved Date Asthmatic bronchitis 03/10/2021 Overview: recurrent episodes since pneumonia fall and winter of 2011 Inflammatory polyarthritis 11/15 documented as of this encounter (statuses as of 12/18/2022) [address]27-2021 History of Past illness Narrative* Problem Noted Date Resolved Date Asthmatic bronchitis 03/10/2021 Overview: recurrent episodes since pneumonia fall and winter of 2011 Inflammatory polyarthritis 11/15 documented as of this encounter (statuses as of 12/22/2022) [address]27-2021 History of Past illness Narrative* Problem Noted Date Resolved Date Asthmatic bronchitis 03/10/2021 Overview: recurrent episodes since pneumonia fall and winter of 2011 Inflammatory polyarthritis 11/15 documented as of this encounter (statuses as of 01/12/2023) [address]27-2021 History of Past illness Narrative* Problem Noted Date Resolved Date Asthmatic bronchitis 03/10/2021 Overview: recurrent episodes since pneumonia fall and winter of 2011 Inflammatory polyarthritis 11/15 documented as of this encounter (statuses as of 02/07/2023) [address]27-2021 History of Past illness Narrative* Problem Noted Date Resolved Date Asthmatic bronchitis 03/10/2021 Overview: recurrent episodes since pneumonia fall and winter of 2011 Inflammatory polyarthritis 11/15 documented as of this encounter (statuses as of 02/17/2023) [address]27-2021 History of Past illness Narrative* Problem Noted Date Resolved Date Asthmatic bronchitis 03/10/2021 Overview: recurrent episodes since pneumonia fall and winter of 2011 Inflammatory polyarthritis 11/15 documented as of this encounter (statuses as of 02/17/2023) [address]27-2021 History of Past illness Narrative* Problem Noted Date Diagnosed Date Resolved Date Asthmatic bronchitis Overview: recurrent episodes since pneumonia fall and winter of 2011 Inflammatory polyarthritis 0 11/15/2013 documented as of this encounter (statuses as of 02/26/2023) [address]27-2021 History of Past illness Narrative* Problem Noted Date Diagnosed Date Resolved Date Asthmatic bronchitis 021 Overview: recurrent episodes since pneumonia fall and winter of 2011 Inflammatory polyarthritis 0 11/15/2013 documented as of this encounter (statuses as of 03/03/2023) [address]27-2021 History of Past illness Narrative* Problem Noted Date Diagnosed Date Resolved Date Asthmatic bronchitis 021 Overview: recurrent episodes since pneumonia fall and winter of 2011 Inflammatory polyarthritis 0 11/15/2013 documented as of this encounter (statuses as of 03/17/2023) [address]27-2021 History of Past illness Narrative* Problem Noted Date Diagnosed Date Resolved Date Asthmatic bronchitis Overview: recurrent episodes since pneumonia fall and winter of 2011 Inflammatory polyarthritis 0 11/15/2013 documented as of this encounter (statuses as of 04/06/2023) [address]27-2021 History of Past illness Narrative* Problem Noted Date Diagnosed Date Resolved Date Asthmatic bronchitis Overview: recurrent episodes since pneumonia fall and winter of 2011 Inflammatory polyarthritis 0 11/15/2013 documented as of this encounter (statuses as of 04/06/2023) [address]27-2021 History of Past illness Narrative* Problem Noted Date Diagnosed Date Resolved Date Asthmatic bronchitis Overview: recurrent episodes since pneumonia fall and winter of 2011 Inflammatory polyarthritis 0 11/15/2013 documented as of this encounter (statuses as of 04/07/2023) [address]27-2021 History of Past illness Narrative* Problem Noted Date Diagnosed Date Resolved Date Asthmatic bronchitis Overview: recurrent episodes since pneumonia fall and winter of 2011 Inflammatory polyarthritis 0 11/15/2013 documented as of this encounter (statuses as of 04/12/2023) [address]27-2021 History of Past illness Narrative* Problem Noted Date Diagnosed Date Resolved Date Asthmatic bronchitis Overview: recurrent episodes since pneumonia fall and winter of 2011 Inflammatory polyarthritis 0 11/15/2013 documented as of this encounter (statuses as of 04/13/2023) [address]27-2021 History of Past illness Narrative* Problem Noted Date Diagnosed Date Resolved Date Asthmatic bronchitis Overview: recurrent episodes since pneumonia fall and winter of 2011 Inflammatory polyarthritis 0 11/15/2013 documented as of this encounter (statuses as of 04/18/2023) [address]27-2021 History of Past illness Narrative* Problem Noted Date Diagnosed Date Resolved Date Asthmatic bronchitis Overview: recurrent episodes since pneumonia fall and winter of 2011 Inflammatory polyarthritis 0 11/15/2013 documented as of this encounter (statuses as of 04/18/2023) [address]27-2021 History of Past illness Narrative* Problem Noted Date Diagnosed Date Resolved Date Asthmatic bronchitis Overview: recurrent episodes since pneumonia fall and winter of 2011 Inflammatory polyarthritis 0 11/15/2013 documented as of this encounter (statuses as of 04/22/2023) [address]27-2021 History of Past illness Narrative* Problem Noted Date Diagnosed Date Resolved Date Asthmatic bronchitis Overview: recurrent episodes since pneumonia fall and winter of 2011 Inflammatory polyarthritis 0 11/15/2013 documented as of this encounter (statuses as of 04/26/2023) [address]27-2021 History of Past illness Narrative* Problem Noted Date Diagnosed Date Resolved Date Asthmatic bronchitis Overview: recurrent episodes since pneumonia fall and winter of 2011 Inflammatory polyarthritis 0 11/15/2013 documented as of this encounter (statuses as of 05/21/2023) [address]27-2021 History of Past illness Narrative* Problem Noted Date Diagnosed Date Resolved Date Asthmatic bronchitis Overview: recurrent episodes since pneumonia fall and winter of 2011 Inflammatory polyarthritis 0 11/15/2013 documented as of this encounter (statuses as of 05/21/2023) [address]27-2021 History of Past illness Narrative* Problem Noted Date Diagnosed Date Resolved Date Asthmatic bronchitis Overview: recurrent episodes since pneumonia fall and winter of 2011 Inflammatory polyarthritis 0 11/15/2013 documented as of this encounter (statuses as of 05/25/2023) [address]27-2021 History of Past illness Narrative* Problem Noted Date Diagnosed Date Resolved Date Asthmatic bronchitis Overview: recurrent episodes since pneumonia fall and winter of 2011 Inflammatory polyarthritis 0 11/15/2013 documented as of this encounter (statuses as of 06/06/2023) [address]27-2021 History of Past illness Narrative* Problem Noted Date Diagnosed Date Resolved Date Asthmatic bronchitis Overview: recurrent episodes since pneumonia fall and winter of 2011 Inflammatory polyarthritis 0 11/15/2013 documented as of this encounter (statuses as of 06/06/2023) [address]27-2021 History of Past illness Narrative* Problem Noted Date Diagnosed Date Resolved Date Asthmatic bronchitis Overview: recurrent episodes since pneumonia fall and winter of 2011 Inflammatory polyarthritis 0 11/15/2013 documented as of this encounter (statuses as of 06/19/2023) [address]27-2021 History of Past illness Narrative* Problem Noted Date Diagnosed Date Resolved Date Asthmatic bronchitis Overview: recurrent episodes since pneumonia fall and winter of 2011 Inflammatory polyarthritis 0 11/15/2013 documented as of this encounter (statuses as of 06/22/2023) [address]27-2021 History of Past illness Narrative* Problem Noted Date Diagnosed Date Resolved Date Asthmatic bronchitis Overview: recurrent episodes since pneumonia fall and winter of 2011 Inflammatory polyarthritis 0 11/15/2013 documented as of this encounter (statuses as of 06/24/2023) [address]27-2021 History of Past illness Narrative* Problem Noted Date Diagnosed Date Resolved Date Asthmatic bronchitis Overview: recurrent episodes since pneumonia fall and winter of 2011 Inflammatory polyarthritis 0 11/15/2013 documented as of this encounter (statuses as of 07/04/2023) [address]27-2021 History of Past illness Narrative* Problem Noted Date Diagnosed Date Resolved Date Asthmatic bronchitis Overview: recurrent episodes since pneumonia fall and winter of 2011 Inflammatory polyarthritis 0 11/15/2013 documented as of this encounter (statuses as of 07/06/2023) [address]27-2021 History of Past illness Narrative* Problem Noted Date Diagnosed Date Resolved Date Asthmatic bronchitis Overview: recurrent episodes since pneumonia fall and winter of 2011 Inflammatory polyarthritis 0 11/15/2013 documented as of this encounter (statuses as of 07/22/2023) [address]2021 History of Past illness Narrative* Problem Noted Date Diagnosed Date Resolved Date Asthmatic bronchitis Overview: recurrent episodes since pneumonia fall and winter of 2011 Inflammatory polyarthritis 0 11/15/2013 documented as of this encounter (statuses as of 07/26/2023) [address]27-2021 History of Past illness Narrative* Problem Noted Date Diagnosed Date Resolved Date Asthmatic bronchitis Overview: recurrent episodes since pneumonia fall and winter of 2011 Inflammatory polyarthritis 0 11/15/2013 documented as of this encounter (statuses as of 07/29/2023) [address]27-2021 History of Past illness Narrative* Problem Noted Date Diagnosed Date Resolved Date Asthmatic bronchitis Overview: recurrent episodes since pneumonia fall and winter of 2011 Inflammatory polyarthritis 0 11/15/2013 documented as of this encounter (statuses as of 08/21/2023) [address]27-2021 History of Past illness Narrative* Problem Noted Date Diagnosed Date Resolved Date Asthmatic bronchitis Overview: recurrent episodes since pneumonia fall and winter of 2011 Inflammatory polyarthritis 0 11/15/2013 documented as of this encounter (statuses as of 09/23/2023) [address]27-2021 History of Past illness Narrative* Problem Noted Date Diagnosed Date Resolved Date Asthmatic bronchitis Overview: recurrent episodes since pneumonia fall and winter of 2011 Inflammatory polyarthritis 0 11/15/2013 documented as of this encounter (statuses as of 10/14/2023) [address]27-2021 History of Past illness Narrative* Problem Noted Date Diagnosed Date Resolved Date Asthmatic bronchitis Overview: recurrent episodes since pneumonia fall and winter of 2011 Inflammatory polyarthritis 0 11/15/2013 documented as of this encounter (statuses as of 10/25/2023) [address]27-2021 History of Past illness Narrative* Problem Noted Date Diagnosed Date Resolved Date Asthmatic bronchitis 021 Overview: recurrent episodes since pneumonia fall and winter of 2011 Inflammatory polyarthritis 0 11/15/2013 documented as of this encounter (statuses as of 10/28/2023) [facility]05-26-2021 History of Present illness Narrative* Katelin [...] 07, 2021 8:16 AM [facility] of Present illness Narrative* Kristy Alanis (Dana)DANA - 07/17/2020 10:15 AM EST Radiology Service [...] PERIPHERAL IV DATA: Not applicable SIGNED BY: DANA Artis July 17, 2020 10:24 AM [facility] of Present illness Narrative* Katelin KingRt)Saima - 06/05/2020 12:30 PM EDT Radiology Service [...] 05, 2020 12:35 PM [facility] Diagnosis Intractable chronic migraine without aura and without status migrainosus- Primary Chronic migraine without aura, with intractable migraine, so stated, without mention of status migrainosus [facility] Diagnosis Neoplasm of uncertain behavior of skin- Primary Compound nevus of chest Benign neoplasm of skin of trunk, except scrotum [facility]* Diagnosis Obsessive-compulsive disorder, unspecified type [facility]* Diagnosis Encounter for IUD insertion- Primary Encounter for insertion of intrauterine contraceptive device [facility] Diagnosis Left ankle strain, sequela- Primary Chronic pain of left ankle History of influenza Personal history of other infectious and parasitic disease documented in this encounter [facility] note* Diagnosis COVID-19- Primary POTS (postural orthostatic tachycardia syndrome) Tachycardia, unspecified Chest wall discomfort Painful respiration documented in this encounter [facility] note* 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 documented in this encounter [facility] note* Diagnosis Surveillance of previously prescribed intrauterine contraceptive device- Primary Intrauterine contraceptive device threads lost, initial encounter [facility] Diagnosis Inappropriate sinus node tachycardia Other specified cardiac dysrhythmias documented in this encounter [facility] note* Diagnosis Intrauterine contraceptive device threads lost, initial encounter [facility] 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 documented in this encounter [facility] note* 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 documented in this encounter [facility] note* Diagnosis Moderate anxiety- Primary Moderate episode of recurrent major depressive disorder (HCC) documented in this encounter [facility] note* Diagnosis Migraine without status migrainosus, not intractable, unspecified migraine type- Primary IUD check up Surveillance of previously prescribed intrauterine contraceptive device Morbid obesity Periodic fever syndrome Familial Mediterranean fever documented in this encounter [facility] note* Diagnosis Closed head injury, initial encounter- Primary Contusion of scalp, initial encounter Abrasion Abrasion or friction burn of other, multiple, and unspecified sites, without mention of infection Fall, initial encounter Injury of right ankle, initial encounter Sprain of right ankle, unspecified ligament, initial encounter Injury of right ankle, initial encounter documented in this encounter [facility] note* Diagnosis Concussion without loss of consciousness, subsequent encounter- Primary documented in this encounter [facility] note* Diagnosis POTS (postural orthostatic tachycardia syndrome)- Primary Tachycardia, unspecified Pleuritic chest pain Painful respiration 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 Cough, unspecified type Class 3 severe obesity due to excess calories with body mass index (BMI) of 50.0 to 59.9 in adult, unspecified whether serious comorbidity present (HCC) documented in this encounter [facility] note* Diagnosis Acute cough- Primary Shortness of breath Wheezing documented in this encounter [facility] note* 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 [facility] Diagnosis RLQ abdominal pain- Primary Abdominal pain, right lower quadrant documented in this encounter [facility] note* Diagnosis Pelvic pain in female- Primary Unspecified symptom associated with female genital organs Screen for STD (sexually transmitted disease) Screening examination for venereal disease Surveillance of previously prescribed intrauterine contraceptive device [facility] Diagnosis Chronic migraine without aura, with intractable migraine, so stated, with status migrainosus- Primary [facility] Diagnosis Obsessive-compulsive disorder, unspecified type- Primary PTSD (post-traumatic stress disorder) Posttraumatic stress disorder Recurrent major depressive disorder, in partial remission (HCC) Anxiety Anxiety state, unspecified POTS (postural orthostatic tachycardia syndrome) Tachycardia, unspecified Inappropriate sinus node tachycardia Other specified cardiac dysrhythmias Moderate persistent reactive airway disease with acute exacerbation [facility] Diagnosis Dog bite, initial encounter- Primary documented in this encounter [facility] note* Diagnosis 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 POTS (postural orthostatic tachycardia syndrome) Tachycardia, unspecified Inappropriate sinus node tachycardia Other specified cardiac dysrhythmias 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 [facility] Diagnosis 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[facility] 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 Immunosuppression (HCC) Unspecified disorder of immune mechanism [facility] Diagnosis PTSD (post-traumatic stress disorder)- Primary [...] constipation and diarrhea [facility] Diagnosis Sore throat- Primary Acute pharyngitis Acute otitis media, left Unspecified otitis media [facility] 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 [facility] Encounter for gynecological examination (general) (routine) without abnormal findings- Primary Screening for STD (sexually transmitted disease) Screening examination for venereal disease [facility] 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 [facility] Diagnosis 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, chronic or unspecified [facility] Diagnosis 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, chronic or unspecified [facility] Diagnosis 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, chronic or unspecified [facility] 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, chronic or unspecified [facility] Diagnosis 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, chronic or unspecified [facility] Diagnosis Treatment not available- Primary Procedure not carried out for other reasons [facility] Diagnosis Laryngitis- Primary Acute laryngitis, without mention of obstruction Cough, unspecified type [facility] Diagnosis Intractable chronic migraine without aura and without status migrainosus- Primary Chronic migraine without aura, with intractable migraine, so stated, without mention of status migrainosus [facility] Diagnosis Other migraine without status migrainosus, intractable- Primary Abnormal EKG Nonspecific abnormal electrocardiogram (ECG) (EKG) POTS (postural orthostatic tachycardia syndrome) Tachycardia, unspecified Elevated TSH Nonspecific abnormal results of thyroid function study [facility] Diagnosis Acute cystitis without hematuria- Primary Acute cystitis [facility] Diagnosis Upper back pain- Primary [facility] Diagnosis Upper back pain- Primary Other acute gastritis without hemorrhage Fever, unspecified fever cause [facility] Diagnosis Upper back pain Fever, unspecified fever cause [facility] Diagnosis Obsessive-compulsive disorder, unspecified type [facility] Diagnosis 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, 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 [facility] Diagnosis Pelvic pain in female- Primary Unspecified symptom associated with female genital organs [facility] Diagnosis Pelvic pain in female Unspecified symptom associated with female genital organs [facility] Diagnosis Atypical facial pain- Primary Atypical face pain Chronic migraine without aura, with intractable migraine, so stated, with status migrainosus [facility] 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 [facility] Diagnosis Screen for STD (sexually transmitted disease)- Primary Screening examination for venereal disease Chronic left shoulder pain Pain in joint, shoulder region [facility] Diagnosis Latex allergy- Primary Allergy to latex Vitamin D deficiency Unspecified vitamin D deficiency Elevated TSH Nonspecific abnormal results of thyroid function study Inappropriate sinus node tachycardia (HCC) Other specified cardiac dysrhythmias [facility]* Diagnosis POTS (postural orthostatic tachycardia syndrome)- Primary Tachycardia, unspecified [facility] Diagnosis Toxic effect of latex, accidental (unintentional), subsequent encounter- Primary Seasonal allergic rhinitis due to pollen Adverse reaction to food, subsequent encounter Oral allergy syndrome, subsequent encounter [facility] Diagnosis Diarrhea, unspecified type- Primary Acute cough Bacterial sinusitis Unspecified sinusitis (chronic) [facility] Diagnosis Abnormal uterine bleeding (AUB)- Primary [facility] Diagnosis Bilateral lower extremity edema- Primary Edema Intermittent diarrhea Class 3 severe obesity due to excess calories with body mass index (BMI) of 50.0 to 59.9 in adult, unspecified whether serious comorbidity present (HCC) Encounter for long-term current use of medication [facility] Diagnosis Encounter for gynecological examination (general) (routine) without abnormal findings- Primary Screening for cervical cancer Screening for malignant neoplasm of the cervix Encounter for screening for human papillomavirus (HPV) Special screening examination for human papillomavirus (HPV) Cervical high risk human papillomavirus (HPV) DNA test positive Pelvic pain in female Unspecified symptom associated with female genital organs [facility] Diagnosis 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, chronic or unspecified Immunosuppression (HCC) Unspecified disorder of immune mechanism Vitamin D deficiency Unspecified vitamin D deficiency [facility]* Diagnosis Cervical high risk HPV (human papillomavirus) test positive- Primary Cervical high risk human papillomavirus (HPV) DNA test positive [facility]* Diagnosis Cervical high risk HPV (human papillomavirus) test positive- Primary Cervical high risk human papillomavirus (HPV) DNA test positive Nonavalent human papilloma virus (HPV) vaccine for HPV types 6, 11, 16, 18, 31, 33, 45, 52, and 58 administered [facility]* Diagnosis Need for prophylactic vaccination/inoculation against viral disease- Primary Need for prophylactic vaccination and inoculation against other viral diseases [facility]* Diagnosis Need for prophylactic vaccination/inoculation against viral disease- Primary Need for prophylactic vaccination and inoculation against other viral diseases [facility]* Diagnosis 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, chronic or unspecified Chest pain, unspecified type 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, chronic or unspecified Chest pain, unspecified type [facility]* Diagnosis Vitamin D deficiency- Primary Unspecified vitamin D deficiency Class 3 severe obesity due to excess calories with body mass index (BMI) of 50.0 to 59.9 in adult, unspecified whether serious comorbidity present (HCC) [facility]* Diagnosis Costochondritis Tietze's disease [facility]* 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 [facility]* 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 [facility]* Diagnosis 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, chronic or unspecified Chest pain, unspecified type [facility]* Diagnosis Chronic left shoulder pain Pain in joint, shoulder region documented in this encounter [facility] note* Diagnosis Bilateral hip pain- Primary Pain in joint, pelvic region and thigh Chronic pain of both knees POTS (postural orthostatic tachycardia syndrome) Tachycardia, unspecified Arthritis Arthropathy, unspecified, site unspecified Mobility poor Other ill-defined conditions documented in this encounter [facility] note* Diagnosis Bilateral hip pain Pain in joint, pelvic region and thigh Chronic pain of both knees POTS (postural orthostatic tachycardia syndrome) Tachycardia, unspecified Arthritis Arthropathy, unspecified, site unspecified [facility]* Diagnosis History of eating disorder- Primary Personal history of other mental disorder Class 3 severe obesity due to excess calories with body mass index (BMI) of 50.0 to 59.9 in adult, unspecified whether serious comorbidity present ([facility]) MAXWELL (obstructive sleep apnea) Obstructive sleep apnea (adult) (pediatric) Dietary counseling Dietary surveillance and counseling POTS (postural orthostatic tachycardia syndrome) Tachycardia, unspecified [facility]* Diagnosis Left ankle pain, unspecified chronicity [facility] Diagnosis Acute left ankle pain Foot pain, left Pain in limb [facility]* 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, chronic or unspecified [facility]* Diagnosis Left wrist pain Pain in joint, forearm Acute pain of left shoulder [facility] Diagnosis Chronic sinusitis, unspecified location [facility] Diagnosis Cough [facility] 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 [facility] 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 Pain in joint, multiple sites Other chest pain Palpitations [facility] 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, chronic or unspecified [facility] 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 [facility] Diagnosis Epigastric abdominal pain- Primary Abdominal pain, epigastric Heartburn [facility] Diagnosis Acute recurrent sinusitis, unspecified location- Primary [facility] 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, chronic or unspecified Immunosuppression (HCC) Unspecified disorder of immune mechanism [facility] Diagnosis Dietary counseling and surveillance- Primary Dietary surveillance and counseling Bulimia nervosa, unspecified severity Eating disorder, unspecified type Obesity, Class III, BMI 40-49.9 (morbid obesity) (HCC) Morbid obesity [facility] 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 [facility] Diagnosis PVC (premature ventricular contraction)- Primary Other premature beats Panic attacks Panic disorder without agoraphobia Panic disorder with agoraphobia Agoraphobia with panic disorder PTSD (post-traumatic stress disorder) Posttraumatic stress disorder Postural orthostatic tachycardia syndrome (POTS) Pleurisy Pleurisy without mention of effusion or current tuberculosis [facility] Diagnosis Situational anxiety- Primary Other anxiety states [facility] this [facility] Diagnosis URI, acute- Primary Acute upper respiratory infections of unspecified site Acute cough Acute cough URI, acute Acute upper respiratory infections of unspecified site [facility] Diagnosis Acute cough URI, acute Acute upper respiratory infections of unspecified site [facility] Diagnosis Injury of left wrist, initial encounter- Primary [facility] this [facility] Diagnosis Laceration of left hand without foreign body, initial encounter- Primary [facility]* Diagnosis Vitamin D deficiency- Primary Unspecified vitamin D deficiency Other fatigue Myalgias Polyarthritis Unspecified polyarthropathy or polyarthritis, site unspecified Muscle weakness (generalized) Abnormal TSH Other abnormal clinical finding [facility] Diagnosis Pharyngitis, unspecified etiology- Primary [facility] this [facility] Diagnosis Sore throat- Primary Acute pharyngitis Exudative tonsillitis [facility] Diagnosis 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, 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 [facility] Diagnosis 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, chronic or unspecified Immunosuppression (HCC) Unspecified disorder of immune mechanism [facility] Diagnosis Acute non-recurrent maxillary sinusitis- Primary Sore throat Acute pharyngitis [facility] Diagnosis Panic disorder with agoraphobia- Primary Agoraphobia with panic disorder Immunosuppression (HCC) 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 Gastroenteritis Other and unspecified noninfectious gastroenteritis and colitis [facility] Diagnosis Gastroenteritis- Primary Other and unspecified noninfectious gastroenteritis and colitis [facility] this [facility] 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 [facility] Diagnosis Encounter for gynecological examination (general) (routine) without abnormal findings- Primary Screening for cervical cancer Screening for malignant neoplasm of the cervix Encounter for screening for human papillomavirus (HPV) Special screening examination for human papillomavirus (HPV) Screen for STD (sexually transmitted disease) Screening examination for venereal disease Immunocompromised state (HCC) Unspecified immunity deficiency documented in this encounter [facility] for referral (narrative)* Outpatient Procedure (Routine) - Pending Review Specialty Diagnoses / Procedures Referred By Christie hidalgo Referred To Contact [facility] Diagnoses Encounter for IUD insertion Procedures INSERT INTRAUTERINE DEVICE LEVONORGESTREL IU 52MG 5 YR INSERT INTRAUTERINE DEVICE Ayaan Rowley APRN.ABDIRAHMAN [address] [address] [facility] [address] [place], [place] [address] [address] Referral ID Status Reason Start Date Expiration Date Visits Requested Visits Authorized [id number] Pending Review Auto-Generat ed Referral 12/04/2021 12/04/2022 1 1 [facility] for referral (narrative)* Diagnostic Procedure Only (Routine) - Authorized Specialty Diagnoses / Procedures Referred By Contac t Referred To Contact US IMAGING Diagnoses Intrauterine contraceptive device threads lost, initial encounter Procedures US FEMALE PELVIS TRANSVAG US TRANSVAGINAL Ayaan Rowley APRN.CNM [address] [place] [address] [facility] Imaging Referral ID Status Reason Start Date Expiration Date Visits Requested Visits Authorized [id number] Authorized Auto-Generat ed Referral 01/20/2022 02/12/2023 1 1 [facility] for referral (narrative)* Diagnostic Procedure Only (Routine) - Closed Specialty Diagnoses / Procedures Referred By Contac t Referred To Contact US IMAGING Diagnoses Intrauterine contraceptive device threads lost, initial encounter Procedures US FEMALE PELVIS TRANSVAG US TRANSVAGINAL Ayaan Rowley APRN.CNM [address] [place] [address] [facility] Imaging Referral ID Status Reason Start Date Expiration Date V isits Requested Visits Authorized [id number] Closed Auto-Generate d Referral 01/20/2022 02/12/2023 1 1 T [facility] for referral (narrative)* Consultation (Routine) - New Request Specialty Diagnoses / Procedures Referred By Contac t Referred To Contact Gynecology Diagnoses IUD check up Mario Vazquez MBBS [address] [place] [phone] Referral ID Status Reason Start Date Expiration Date V isits Requested Visits Authorized [id number] New Request 04/16/2022 05/11/2023 1 1 [facility] Outpatient Procedure (Routine) - Closed Specialty Diagnoses / Procedures Referred By Contac t Referred To Contact [facility] Diagnoses Abnormal EKG POTS (postural orthostatic tachycardia syndrome) Procedures ECG COMPLETE ECG ROUTINE ECG W/LEAST 12 LDS W/I&R Genaro Morales APRN.SEAL MIXING OPERATOR [address] [place] [address] [facility] [address] [place] [address] Referral ID Status Reason Start Date Expiration Date V isits Requested Visits Authorized [id number] Closed Auto-Generate d Referral 05/20/2023 05/19/2024 1 1 * Consult, Test, Treat (Routine) - Authorized Specialty Diagnoses / Procedures Referred By Contac t Referred To Contact Cardiology Diagnoses Abnormal EKG POTS (postural orthostatic tachycardia syndrome) Procedures CONSULT TO CARDIOLOGY OFFICE/OUTPATIENT [facility] HIGH MDM 60-74 MINUTES Genaro Morales APRN.SEAL MIXING OPERATOR [address] [place] [address] Referral ID Status Reason Start Date Expiration Date Visits Requested Visits Authorized [id number] Authorized PCP Requested Referral 05/20/2023 05/19/2024 1 1 [facility] for referral (narrative)* Diagnostic Procedure Only (Routine) - Authorized Specialty Diagnoses / Procedures Referred By Contac t Referred To Contact [facility] Diagnoses Pelvic pain in female Procedures PELVIC US WHI US PELVIC NONOBSTETRIC REAL-[place] [address] [place] [address] [facility] [address] [place] [address] Referral ID Status Reason Start Date Expiration Date Visits Requested Visits Authorized [id number] Authorized Auto-Generat ed Referral 07/22/2023 07/21/2024 1 1 [facility] for referral (narrative)* Diagnostic Procedure Only (Routine) - Closed Specialty Diagnoses / Procedures Referred By Contac t Referred To Contact XR IMAGING Diagnoses Chronic left shoulder pain Procedures XR SHOULDER LIMITED 2V AP/TRUE AP LEFT RADEX SHOULDER COMPLETE MINIMUM 2 VIEWS Genaro Morales APRN.SEAL MIXING OPERATOR [address] [place] [address] [place] [address] Referral ID Status Reason Start Date Expiration Date V isits Requested Visits Authorized [id number] Closed Auto-Generate d Referral 10/14/2023 11/12/2024 1 1 * Physical Therapy (Routine) - Pending Review Specialty Diagnoses / Procedures Referred By Contac t Referred To Contact [facility] Diagnoses Chronic left shoulder pain Procedures CONSULT TO PHYSICAL THERAPY PHYSICAL THERAPY EVALUATION HIGH COMPLEX 45 MINS Genaro Morales APRN.SEAL MIXING OPERATOR [address] [place] [address] [facility] [place] [address] [place] [address] Referral ID Status Reason Start Date Expiration Date Visits Requested Visits Authorized [id number] Pending Review Auto-Generat ed Referral 10/14/2023 10/13/2024 1 1 [facility] for referral (narrative)* Outpatient Procedure (Routine) - New Request Specialty Diagnoses / Procedures Referred By Contac t Referred To Contact [facility] Diagnoses Pelvic pain in female Procedures REMOVE INTRAUTERINE DEVICE REMOVE INTRAUTERINE DEVICE Ayaan Rowley APRN.CNM [address] [place] [address] [facility] [address] [place] [address] Referral ID Status Reason Start Date Expiration Date Visits Requested Visits Authorized [id number] New Request Auto-Generat ed Referral 02/27/2024 02/26/2025 1 1 [facility] for referral (narrative)* Outpatient Procedure (Routine) - Authorized Specialty Diagnoses / Procedures [facility] Referred To Contact [facility] Diagnoses Cervical high risk HPV (human papillomavirus) test positive Procedures COLPOSCOPY COLPOSCOPY CERVIX BX CERVIX & ENDOCRV CURRETAGE Nani Freeman APRN.TECHNICAL INTERN [address] [place] [address] [facility] [address] [place] [address] Referral ID Status Reason Start Date Expiration Date Visits Requested Visits Authorized [id number] Authorized Auto-Generat ed Referral 03/12/2024 03/12/2025 1 1 [facility] for referral (narrative)* Diagnostic Procedure Only (Routine) - Closed Specialty Diagnoses / Procedures Referred By [facility] Referred To Contact XR IMAGING Diagnoses Chronic left shoulder pain Procedures XR SHOULDER LIMITED 2V AP/TRUE AP LEFT RADEX SHOULDER COMPLETE MINIMUM 2 VIEWS Genaro Morales APRN.CNS [address] [place] [address] [place] [address] Referral ID Status Reason Start Date Expiration Date V isits Requested Visits Authorized [id number] Closed Auto-Generate d Referral 10/14/2023 11/12/2024 1 1 [facility] for referral (narrative)* Diagnostic Procedure Only (Routine) - Closed Specialty Diagnoses / Procedures Referred By [facility] Referred To Contact XR IMAGING Diagnoses Left ankle pain, unspecified chronicity Procedures XR ANKLE GENERAL 3V AP/LAT/OBL LEFT RADEX ANKLE COMPLETE MINIMUM 3 VIEWS Irwin Campbell MD [address] [place] [address] [place] [address] Referral ID Status Reason Start Date Expiration Date V isits Requested Visits Authorized [id number] Closed Auto-Generate d Referral 09/16/2021 10/16/2022 1 1 [facility] for referral (narrative)* Diagnostic Procedure Only (Urgent) - Closed Specialty Diagnoses / Procedures Referred By Contac t Referred To Contact XR IMAGING Diagnoses Foot pain, left Procedures XR FOOT GENERAL 3V AP/LAT/OBL LEFT X-RAY FOOT MINIMUM 3 VIEWS Rosaura Santacruz APRN.TECHNICAL INTERN [address] [place] [address] [place] [address] Referral ID Status Reason Start Date Expiration Date V isits Requested Visits Authorized [id number] Closed Auto-Generate d Referral 08/05/2021 09/04/2022 1 1 * Diagnostic Procedure Only (Urgent) - Closed Specialty Diagnoses / Procedures Referred By Contac t Referred To Contact XR IMAGING Diagnoses Acute left ankle pain Procedures XR ANKLE GENERAL 3V AP/LAT/OBL LEFT X-RAY ANKLE MINIMUM 3 VIEWS Rosaura Santacruz APRN.TECHNICAL INTERN [address] [place] [address] [place] [address] Referral ID Status Reason Start Date Expiration Date V isits Requested Visits Authorized [id number] Closed Auto-Generate d Referral 08/05/2021 09/04/2022 1 1 [facility] for referral (narrative)* Diagnostic Procedure Only (Routine) - Closed Specialty Diagnoses / Procedures Referred By Contac t Referred To Contact CT IMAGING Diagnoses Chronic sinusitis, unspecified location Procedures CT SINUS WO [place] [id number] [place] [address] Referral ID Status Reason Start Date Expiration Date V isits Requested Visits Authorized [id number] Closed Auto-Generate d Referral 06/27/2020 08/25/2020 3 3 [facility] for visit Narrative* Diagnostic Procedure Only (Routine) - Closed Specialty Diagnoses / Procedures Referred By Contac t Referred To Contact US IMAGING Diagnoses Intrauterine contraceptive device threads lost, initial encounter Procedures US FEMALE PELVIS TRANSVAG US TRANSVAGINAL Ayaan Rowley APRN.CN [address] [place] [address] Us Imaging Referral ID Status Reason Start Date Expiration Date V isits Requested Visits Authorized [id number] Closed Auto-Generate d Referral 01/20/2022 02/12/2023 1 1 [facility] for visit Narrative* Diagnostic Procedure Only (Routine) - Closed Specialty Diagnoses / Procedures Referred By Contac t Referred To Contact [facility] Diagnoses Pelvic pain in female Procedures PELVIC US WHI US PELVIC NONOBSTETRIC REAL-[place] [address] [place] [address] [facility] [address] [place] [address] Referral ID Status Reason Start Date Expiration Date V isits Requested Visits Authorized [id number] Closed Auto-Generate d Referral 07/22/2023 07/21/2024 1 1 [facility] for visit Narrative* Diagnostic Procedure Only (Routine) - Closed Specialty Diagnoses / Procedures Referred By Contac t Referred To Contact Radiology / [facility] Diagnoses ML Procedures XR CHEST UngprasertSilvia MD [address] [place] [address] [facility] [address] [place] [address] Referral ID Status Reason Start Date Expiration Date Visits Re quested Visits Authorized [id number] Closed 04/02/2024 08/14/2024 1 1 [facility] for visit Narrative* Diagnostic Procedure Only (Routine) - Closed Specialty Diagnoses / Procedures Referred By Contac t Referred To Contact XR IMAGING Diagnoses Chronic left shoulder pain Procedures XR SHOULDER [id number] AP/TRUE AP RIGHT RADEX SHOULDER COMPLETE MINIMUM 2 VIEWS Genaro Morales, SUPERVISOR FELLING BUCKING.SEAL MIXING OPERATOR [address] [place] [address] [place] [address] Referral ID Status Reason Start Date Expiration Date V isits Requested Visits Authorized [id number] Closed Auto-Generate d Referral 10/14/2023 11/12/2024 1 1 [facility] for visit Narrative* Diagnostic Procedure Only (Routine) - Closed Specialty Diagnoses / Procedures Referred By Contac t Referred To Contact XR IMAGING Diagnoses Left ankle pain, unspecified chronicity Procedures XR ANKLE GENERAL 3V AP/LAT/OBL LEFT RADEX ANKLE COMPLETE MINIMUM 3 VIEWS Irwin Campbell MD [address] [place] [address] [place] [address] Referral ID Status Reason Start Date Expiration Date V isits Requested Visits Authorized [id number] Closed Auto-Generate d Referral 09/16/2021 10/16/2022 1 1 [facility] for visit Narrative* Diagnostic Procedure Only (Urgent) - Closed Specialty Diagnoses / Procedures Referred By Contac t Referred To Contact XR IMAGING Diagnoses Foot pain, left Procedures XR FOOT GENERAL 3V AP/LAT/OBL LEFT X-RAY FOOT MINIMUM 3 VIEWS Rosaura Santacruz, SUPERVISOR FELLING BUCKING.TECHNICAL INTERN [address] [place] [address] [place] [address] Referral ID Status Reason Start Date Expiration Date V isits Requested Visits Authorized [id number] Closed Auto-Generate d Referral 08/05/2021 09/04/2022 1 1 [facility] for visit Narrative* Diagnostic Procedure Only (Urgent) - Closed Specialty Diagnoses / Procedures Referred By Contac t Referred To Contact XR IMAGING Diagnoses Injury of left wrist, initial encounter Procedures XR WRIST GENERAL 3V PA/LAT/OBL LEFT RADEX WRIST COMPLETE MINIMUM 3 VIEWS Steven Harris, SUPERVISOR FELLING BUCKING.TECHNICAL INTERN [address] [place] [address] Phone: tel: fax: [place] [address] Referral ID Status Reason Start Date Expiration Date V isits Requested Visits Authorized [id number] Closed Auto-Generate d Referral 10/24/2024 11/23/2025 1 1 [facility] Summary Purpose Family History No Family [...] Specialty Diagnoses / Procedures Referred By Christie t Referred To Contact MR IMAGING Diagnoses Chronic pain of left ankle Procedures MRI ANKLE WO IVCON LT MRI ANY JT LOWER EXTREM W/O CONTRAST Faustina Soriano MD [address] [place] [address] Mr Imaging Referral ID Status Reason Start Date Expiration Date V isits Requested Visits Authorized [id number] Closed Auto-Generate d Referral 09/22/2021 10/22/2022 1 1 Specialty Diagnoses / Procedures Referred By Contac t Referred To Contact Podiatry Diagnoses Left ankle strain, sequela Procedures CONSULT TO PODIATRY OFFICE/OUTPATIENT [facility] 60-74 MINUTES Faustina Carcamo MD [address] [phone] Rob Steen [address] [place] [address] Referral ID Status Reason Start Date Expiration Date V isits Requested Visits Authorized [id number] Closed PCP Requested Referral 09/22/2021 09/22/2022 1 1 Specialty Diagnoses / Procedures Referred By Contac t Referred To Contact Diagnoses RLQ abdominal pain Procedures CT ABDOMEN/PELVIS WITH CONTRAST CHG CT SCAN,ABDOMENT AND PELVIS,W CONTRAST Marina Goodrich, SUPERVISOR FELLING BUCKING-TECHNICAL INTERN [address] [place] [address] Referral ID Status Reason Start Date Expiration Date Visits Re quested Visits Authorized [id number] Closed 06/28/2022 07/23/2023 1 1 Specialty Diagnoses / Procedures Referred By Contac t Referred To Contact Diagnoses Vitamin D deficiency Class 3 severe obesity due to excess calories with body mass index (BMI) of 50.0 to 59.9 in adult, unspecified whether serious comorbidity present (HCC) Procedures CONSULT TO PSYCHIATRY OFFICE/OUTPATIENT [facility] 60 MINUTES Genaro Morales APRN.CNS [address] [place] [address] Referral ID Status Reason Start Date Expiration Date Visits Requested Visits Authorized [id number] Pending Review PCP Requested Referral 04/03/2024 04/03/2025 1 1 Specialty Diagnoses / Procedures Referred By Contac t Referred To Contact Nutrition Diagnoses Class 3 severe obesity due to excess calories with body mass index (BMI) of 50.0 to 59.9 in adult, unspecified whether serious comorbidity present (HCC) Procedures CONSULT TO NUTRITION THERAPY MEDICAL NUTRITION ASSMT&IVNTJ INDIV EACH 15 RI Genaro Morales, GENI.SEAL MIXING OPERATOR [address] [place] [address] Referral ID Status Reason Start Date Expiration Date Visits Requested Visits Authorized [id number] Authorized PCP Requested Referral 04/03/2024 04/03/2025 1 4 Additional Source Comments INFORMATION SOURCE (unrecogn ized section and content) DATE CREATED AUTHOR 11/03/2021 [facility] DATE CREATED AUTHOR AUTHOR'S ORGANIZ ATION 05/15/2022 [facility] DATE CREATED AUTHOR AUTHOR'S ORGANIZ ATION 07/24/2022 [facility] DATE CREATED AUTHOR AUTHOR'S ORGANIZ ATION 08/06/2022 [facility] DATE CREATED AUTHOR AUTHOR'S ORGANIZ ATION 09/21/2022 [facility] DATE CREATED AUTHOR AUTHOR'S ORGANIZ ATION 05/29/2023 [facility] DATE CREATED AUTHOR AUTHOR'S ORGANIZ ATION 06/01/2023 [facility] DATE CREATED AUTHOR AUTHOR'S ORGANIZ ATION 08/04/2024 [facility] DATE CREATED AUTHOR AUTHOR'S ORGANIZ ATION 02/03/2025 [facility] DATE CREATED AUTHOR AUTHOR'S ORGANIZ ATION 02/05/2025 [facility] Source Comments (unrecognize d section and content) In the event this informatio n is protected by the Federal Confidentiality of Alcohol and Drug Abuse Patient Records regulations: The Federal rules restrict any use of the information to criminally investigate or prosecute any alcohol or drug abuse patient.[facility] the event this information is protected by the Federal Confidentiality of Alcohol and Drug Abuse Patient Records regulations: The Federal rules restrict any use of the information to criminally investigate or prosecute any alcohol or drug abuse patient.[facility] the event this information is protected by the Federal Confidentiality of Alcohol and Drug Abuse Patient Records regulations: The Federal rules restrict any use of the information to criminally investigate or prosecute any alcohol or drug abuse patient.[facility] the event this information is protected by the Federal Confidentiality of Alcohol and Drug Abuse Patient Records regulations: The Federal rules restrict any use of the information to criminally investigate or prosecute any alcohol or drug abuse patient.[facility] the event this information is protected by the Federal Confidentiality of Alcohol and Drug Abuse Patient Records regulations: The Federal rules restrict any use of the information to criminally investigate or prosecute any alcohol or drug abuse patient.[facility] the event this information is protected by the Federal Confidentiality of Alcohol and Drug Abuse Patient Records regulations: The Federal rules restrict any use of the information to criminally investigate or prosecute any alcohol or drug abuse patient.[facility] the event this information is protected by the Federal Confidentiality of Alcohol and Drug Abuse Patient Records regulations: The Federal rules restrict any use of the information to criminally investigate or prosecute any alcohol or drug abuse patient.[facility] the event this information is protected by the Federal Confidentiality of Alcohol and Drug Abuse Patient Records regulations: The Federal rules restrict any use of the information to criminally investigate or prosecute any alcohol or drug abuse patient.[facility] Hospital[facility] the event this information is protected by the Federal Confidentiality of Alcohol and Drug Abuse Patient Records regulations: The Federal rules restrict any use of the information to criminally investigate or prosecute any alcohol or drug abuse patient.[facility] Hospital[facility] the event this information is protected by the Federal Confidentiality of Alcohol and Drug Abuse Patient Records regulations: The Federal rules restrict any use of the information to criminally investigate or prosecute any alcohol or drug abuse patient.[facility] Hospital[facility] the event this information is protected by the Federal Confidentiality of Alcohol and Drug Abuse Patient Records regulations: The Federal rules restrict any use of the information to criminally investigate or prosecute any alcohol or drug abuse patient.[facility] Hospital[facility] the event this information is protected by the Federal Confidentiality of Alcohol and Drug Abuse Patient Records regulations: The Federal rules restrict any use of the information to criminally investigate or prosecute any alcohol or drug abuse patient.[facility] Hospital[facility] the event this information is protected by the Federal Confidentiality of Alcohol and Drug Abuse Patient Records regulations: The Federal rules restrict any use of the information to criminally investigate or prosecute any alcohol or drug abuse patient.[facility] HospitalIn the event this information is protected by the Federal Confidentiality of Alcohol and Drug Abuse Patient Records regulations: The Federal rules restrict any use of the information to criminally investigate or prosecute any alcohol or drug abuse patient.[facility] HospitalIn the event this information is protected by the Federal Confidentiality of Alcohol and Drug Abuse Patient Records regulations: The Federal rules restrict any use of the information to criminally investigate or prosecute any alcohol or drug abuse patient.[facility] HospitalIn the event this information is protected by the Federal Confidentiality of Alcohol and Drug Abuse Patient Records regulations: The Federal rules restrict any use of the information to criminally investigate or prosecute any alcohol or drug abuse patient.[facility] HospitalIn the event this information is protected by the Federal Confidentiality of Alcohol and Drug Abuse Patient Records regulations: The Federal rules restrict any use of the information to criminally investigate or prosecute any alcohol or drug abuse patient.[facility] HospitalIn the event this information is protected by the Federal Confidentiality of Alcohol and Drug Abuse Patient Records regulations: The Federal rules restrict any use of the information to criminally investigate or prosecute any alcohol or drug abuse patient.[facility] HospitalIn the event this information is protected by the Federal Confidentiality of Alcohol and Drug Abuse Patient Records regulations: The Federal rules restrict any use of the information to criminally investigate or prosecute any alcohol or drug abuse patient.[facility] HospitalIn the event this information is protected by the Federal Confidentiality of Alcohol and Drug Abuse Patient Records regulations: The Federal rules restrict any use of the information to criminally investigate or prosecute any alcohol or drug abuse patient.[facility] HospitalIn the event this information is protected by the Federal Confidentiality of Alcohol and Drug Abuse Patient Records regulations: The Federal rules restrict any use of the information to criminally investigate or prosecute any alcohol or drug abuse patient.[facility] HospitalIn the event this information is protected by the Federal Confidentiality of Alcohol and Drug Abuse Patient Records regulations: The Federal rules restrict any use of the information to criminally investigate or prosecute any alcohol or drug abuse patient.[facility] HospitalIn the event this information is protected by the Federal Confidentiality of Alcohol and Drug Abuse Patient Records regulations: The Federal rules restrict any use of the information to criminally investigate or prosecute any alcohol or drug abuse patient.[facility] HospitalIn the event this information is protected by the Federal Confidentiality of Alcohol and Drug Abuse Patient Records regulations: The Federal rules restrict any use of the information to criminally investigate or prosecute any alcohol or drug abuse patient.[facility] HospitalIn the event this information is protected by the Federal Confidentiality of Alcohol and Drug Abuse Patient Records regulations: The Federal rules restrict any use of the information to criminally investigate or prosecute any alcohol or drug abuse patient.[facility] HospitalIn the event this information is protected by the Federal Confidentiality of Alcohol and Drug Abuse Patient Records regulations: The Federal rules restrict any use of the information to criminally investigate or prosecute any alcohol or drug abuse patient.[facility] HospitalIn the event this information is protected by the Federal Confidentiality of Alcohol and Drug Abuse Patient Records regulations: The Federal rules restrict any use of the information to criminally investigate or prosecute any alcohol or drug abuse patient.[facility] HospitalIn the event this information is protected by the Federal Confidentiality of Alcohol and Drug Abuse Patient Records regulations: The Federal rules restrict any use of the information to criminally investigate or prosecute any alcohol or drug abuse patient.[facility] HospitalIn the event this information is protected by the Federal Confidentiality of Alcohol and Drug Abuse Patient Records regulations: The Federal rules restrict any use of the information to criminally investigate or prosecute any alcohol or drug abuse patient.[facility] HospitalIn the event this information is protected by the Federal Confidentiality of Alcohol and Drug Abuse Patient Records regulations: The Federal rules restrict any use of the information to criminally investigate or prosecute any alcohol or drug abuse patient.[facility] HospitalIn the event this information is protected by the Federal Confidentiality of Alcohol and Drug Abuse Patient Records regulations: The Federal rules restrict any use of the information to criminally investigate or prosecute any alcohol or drug abuse patient.[facility] HospitalIn the event this information is protected by the Federal Confidentiality of Alcohol and Drug Abuse Patient Records regulations: The Federal rules restrict any use of the information to criminally investigate or prosecute any alcohol or drug abuse patient.[facility] HospitalIn the event this information is protected by the Federal Confidentiality of Alcohol and Drug Abuse Patient Records regulations: The Federal rules restrict any use of the information to criminally investigate or prosecute any alcohol or drug abuse patient.[facility] HospitalIn the event this information is protected by the Federal Confidentiality of Alcohol and Drug Abuse Patient Records regulations: The Federal rules restrict any use of the information to criminally investigate or prosecute any alcohol or drug abuse patient.[facility] HospitalIn the event this information is protected by the Federal Confidentiality of Alcohol and Drug Abuse Patient Records regulations: The Federal rules restrict any use of the information to criminally investigate or prosecute any alcohol or drug abuse patient.[facility] HospitalIn the event this information is protected by the Federal Confidentiality of Alcohol and Drug Abuse Patient Records regulations: The Federal rules restrict any use of the information to criminally investigate or prosecute any alcohol or drug abuse patient.[facility] HospitalIn the event this information is protected by the Federal Confidentiality of Alcohol and Drug Abuse Patient Records regulations: The Federal rules restrict any use of the information to criminally investigate or prosecute any alcohol or drug abuse patient.[facility] HospitalIn the event this information is protected by the Federal Confidentiality of Alcohol and Drug Abuse Patient Records regulations: The Federal rules restrict any use of the information to criminally investigate or prosecute any alcohol or drug abuse patient.[facility] HospitalIn the event this information is protected by the Federal Confidentiality of Alcohol and Drug Abuse Patient Records regulations: The Federal rules restrict any use of the information to criminally investigate or prosecute any alcohol or drug abuse patient.[facility] HospitalIn the event this information is protected by the Federal Confidentiality of Alcohol and Drug Abuse Patient Records regulations: The Federal rules restrict any use of the information to criminally investigate or prosecute any alcohol or drug abuse patient.[facility] HospitalIn the event this information is protected by the Federal Confidentiality of Alcohol and Drug Abuse Patient Records regulations: The Federal rules restrict any use of the information to criminally investigate or prosecute any alcohol or drug abuse patient.[facility] HospitalIn the event this information is protected by the Federal Confidentiality of Alcohol and Drug Abuse Patient Records regulations: The Federal rules restrict any use of the information to criminally investigate or prosecute any alcohol or drug abuse patient.[facility] HospitalIn the event this information is protected by the Federal Confidentiality of Alcohol and Drug Abuse Patient Records regulations: The Federal rules restrict any use of the information to criminally investigate or prosecute any alcohol or drug abuse patient.[facility] HospitalIn the event this information is protected by the Federal Confidentiality of Alcohol and Drug Abuse Patient Records regulations: The Federal rules restrict any use of the information to criminally investigate or prosecute any alcohol or drug abuse patient.[facility] HospitalIn the event this information is protected by the Federal Confidentiality of Alcohol and Drug Abuse Patient Records regulations: The Federal rules restrict any use of the information to criminally investigate or prosecute any alcohol or drug abuse patient.[facility] HospitalIn the event this information is protected by the Federal Confidentiality of Alcohol and Drug Abuse Patient Records regulations: The Federal rules restrict any use of the information to criminally investigate or prosecute any alcohol or drug abuse patient.[facility] HospitalIn the event this information is protected by the Federal Confidentiality of Alcohol and Drug Abuse Patient Records regulations: The Federal rules restrict any use of the information to criminally investigate or prosecute any alcohol or drug abuse patient.[facility] HospitalIn the event this information is protected by the Federal Confidentiality of Alcohol and Drug Abuse Patient Records regulations: The Federal rules restrict any use of the information to criminally investigate or prosecute any alcohol or drug abuse patient.[facility] HospitalIn the event this information is protected by the Federal Confidentiality of Alcohol and Drug Abuse Patient Records regulations: The Federal rules restrict any use of the information to criminally investigate or prosecute any alcohol or drug abuse patient.[facility] HospitalIn the event this information is protected by the Federal Confidentiality of Alcohol and Drug Abuse Patient Records regulations: The Federal rules restrict any use of the information to criminally investigate or prosecute any alcohol or drug abuse patient.[facility] HospitalIn the event this information is protected by the Federal Confidentiality of Alcohol and Drug Abuse Patient Records regulations: The Federal rules restrict any use of the information to criminally investigate or prosecute any alcohol or drug abuse patient.[facility] HospitalIn the event this information is protected by the Federal Confidentiality of Alcohol and Drug Abuse Patient Records regulations: The Federal rules restrict any use of the information to criminally investigate or prosecute any alcohol or drug abuse patient.[facility] HospitalIn the event this information is protected by the Federal Confidentiality of Alcohol and Drug Abuse Patient Records regulations: The Federal rules restrict any use of the information to criminally investigate or prosecute any alcohol or drug abuse patient.[facility] HospitalIn the event this information is protected by the Federal Confidentiality of Alcohol and Drug Abuse Patient Records regulations: The Federal rules restrict any use of the information to criminally investigate or prosecute any alcohol or drug abuse patient.[facility] HospitalIn the event this information is protected by the Federal Confidentiality of Alcohol and Drug Abuse Patient Records regulations: The Federal rules restrict any use of the information to criminally investigate or prosecute any alcohol or drug abuse patient.[facility] HospitalIn the event this information is protected by the Federal Confidentiality of Alcohol and Drug Abuse Patient Records regulations: The Federal rules restrict any use of the information to criminally investigate or prosecute any alcohol or drug abuse patient.[facility] HospitalIn the event this information is protected by the Federal Confidentiality of Alcohol and Drug Abuse Patient Records regulations: The Federal rules restrict any use of the information to criminally investigate or prosecute any alcohol or drug abuse patient.[facility] HospitalIn the event this information is protected by the Federal Confidentiality of Alcohol and Drug Abuse Patient Records regulations: The Federal rules restrict any use of the information to criminally investigate or prosecute any alcohol or drug abuse patient.[facility] HospitalIn the event this information is protected by the Federal Confidentiality of Alcohol and Drug Abuse Patient Records regulations: The Federal rules restrict any use of the information to criminally investigate or prosecute any alcohol or drug abuse patient.[facility] HospitalIn the event this information is protected by the Federal Confidentiality of Alcohol and Drug Abuse Patient Records regulations: The Federal rules restrict any use of the information to criminally investigate or prosecute any alcohol or drug abuse patient.[facility] HospitalIn the event this information is protected by the Federal Confidentiality of Alcohol and Drug Abuse Patient Records regulations: The Federal rules restrict any use of the information to criminally investigate or prosecute any alcohol or drug abuse patient.[facility] HospitalIn the event this information is protected by the Federal Confidentiality of Alcohol and Drug Abuse Patient Records regulations: The Federal rules restrict any use of the information to criminally investigate or prosecute any alcohol or drug abuse patient.[facility] HospitalIn the event this information is protected by the Federal Confidentiality of Alcohol and Drug Abuse Patient Records regulations: The Federal rules restrict any use of the information to criminally investigate or prosecute any alcohol or drug abuse patient.[facility] HospitalIn the event this information is protected by the Federal Confidentiality of Alcohol and Drug Abuse Patient Records regulations: The Federal rules restrict any use of the information to criminally investigate or prosecute any alcohol or drug abuse patient.[facility] HospitalIn the event this information is protected by the Federal Confidentiality of Alcohol and Drug Abuse Patient Records regulations: The Federal rules restrict any use of the information to criminally investigate or prosecute any alcohol or drug abuse patient.[facility] HospitalIn the event this information is protected by the Federal Confidentiality of Alcohol and Drug Abuse Patient Records regulations: The Federal rules restrict any use of the information to criminally investigate or prosecute any alcohol or drug abuse patient.[facility] HospitalIn the event this information is protected by the Federal Confidentiality of Alcohol and Drug Abuse Patient Records regulations: The Federal rules restrict any use of the information to criminally investigate or prosecute any alcohol or drug abuse patient.[facility] HospitalIn the event this information is protected by the Federal Confidentiality of Alcohol and Drug Abuse Patient Records regulations: The Federal rules restrict any use of the information to criminally investigate or prosecute any alcohol or drug abuse patient.[facility] HospitalIn the event this information is protected by the Federal Confidentiality of Alcohol and Drug Abuse Patient Records regulations: The Federal rules restrict any use of the information to criminally investigate or prosecute any alcohol or drug abuse patient.[facility] HospitalIn the event this information is protected by the Federal Confidentiality of Alcohol and Drug Abuse Patient Records regulations: The Federal rules restrict any use of the information to criminally investigate or prosecute any alcohol or drug abuse patient.[facility] HospitalIn the event this information is protected by the Federal Confidentiality of Alcohol and Drug Abuse Patient Records regulations: The Federal rules restrict any use of the information to criminally investigate or prosecute any alcohol or drug abuse patient.[facility] HospitalIn the event this information is protected by the Federal Confidentiality of Alcohol and Drug Abuse Patient Records regulations: The Federal rules restrict any use of the information to criminally investigate or prosecute any alcohol or drug abuse patient.[facility] HospitalIn the event this information is protected by the Federal Confidentiality of Alcohol and Drug Abuse Patient Records regulations: The Federal rules restrict any use of the information to criminally investigate or prosecute any alcohol or drug abuse patient.[facility] HospitalIn the event this information is protected by the Federal Confidentiality of Alcohol and Drug Abuse Patient Records regulations: The Federal rules restrict any use of the information to criminally investigate or prosecute any alcohol or drug abuse patient.[facility] HospitalIn the event this information is protected by the Federal Confidentiality of Alcohol and Drug Abuse Patient Records regulations: The Federal rules restrict any use of the information to criminally investigate or prosecute any alcohol or drug abuse patient.[facility] HospitalIn the event this information is protected by the Federal Confidentiality of Alcohol and Drug Abuse Patient Records regulations: The Federal rules restrict any use of the information to criminally investigate or prosecute any alcohol or drug abuse patient.[facility] HospitalIn the event this information is protected by the Federal Confidentiality of Alcohol and Drug Abuse Patient Records regulations: The Federal rules restrict any use of the information to criminally investigate or prosecute any alcohol or drug abuse patient.[facility] HospitalIn the event this information is protected by the Federal Confidentiality of Alcohol and Drug Abuse Patient Records regulations: The Federal rules restrict any use of the information to criminally investigate or prosecute any alcohol or drug abuse patient.[facility] HospitalIn the event this information is protected by the Federal Confidentiality of Alcohol and Drug Abuse Patient Records regulations: The Federal rules restrict any use of the information to criminally investigate or prosecute any alcohol or drug abuse patient.[facility] HospitalIn the event this information is protected by the Federal Confidentiality of Alcohol and Drug Abuse Patient Records regulations: The Federal rules restrict any use of the information to criminally investigate or prosecute any alcohol or drug abuse patient.[facility] HospitalIn the event this information is protected by the Federal Confidentiality of Alcohol and Drug Abuse Patient Records regulations: The Federal rules restrict any use of the information to criminally investigate or prosecute any alcohol or drug abuse patient.[facility] HospitalIn the event this information is protected by the Federal Confidentiality of Alcohol and Drug Abuse Patient Records regulations: The Federal rules restrict any use of the information to criminally investigate or prosecute any alcohol or drug abuse patient.[facility] HospitalIn the event this information is protected by the Federal Confidentiality of Alcohol and Drug Abuse Patient Records regulations: The Federal rules restrict any use of the information to criminally investigate or prosecute any alcohol or drug abuse patient.[facility] HospitalIn the event this information is protected by the Federal Confidentiality of Alcohol and Drug Abuse Patient Records regulations: The Federal rules restrict any use of the information to criminally investigate or prosecute any alcohol or drug abuse patient.[facility] HospitalIn the event this information is protected by the Federal Confidentiality of Alcohol and Drug Abuse Patient Records regulations: The Federal rules restrict any use of the information to criminally investigate or prosecute any alcohol or drug abuse patient.[facility] HospitalIn the event this information is protected by the Federal Confidentiality of Alcohol and Drug Abuse Patient Records regulations: The Federal rules restrict any use of the information to criminally investigate or prosecute any alcohol or drug abuse patient.[facility] HospitalIn the event this information is protected by the Federal Confidentiality of Alcohol and Drug Abuse Patient Records regulations: The Federal rules restrict any use of the information to criminally investigate or prosecute any alcohol or drug abuse patient.[facility] HospitalIn the event this information is protected by the Federal Confidentiality of Alcohol and Drug Abuse Patient Records regulations: The Federal rules restrict any use of the information to criminally investigate or prosecute any alcohol or drug abuse patient.[facility] HospitalIn the event this information is protected by the Federal Confidentiality of Alcohol and Drug Abuse Patient Records regulations: The Federal rules restrict any use of the information to criminally investigate or prosecute any alcohol or drug abuse patient.[facility] HospitalIn the event this information is protected by the Federal Confidentiality of Alcohol and Drug Abuse Patient Records regulations: The Federal rules restrict any use of the information to criminally investigate or prosecute any alcohol or drug abuse patient.[facility] HospitalIn the event this information is protected by the Federal Confidentiality of Alcohol and Drug Abuse Patient Records regulations: The Federal rules restrict any use of the information to criminally investigate or prosecute any alcohol or drug abuse patient.[facility] HospitalIn the event this information is protected by the Federal Confidentiality of Alcohol and Drug Abuse Patient Records regulations: The Federal rules restrict any use of the information to criminally investigate or prosecute any alcohol or drug abuse patient.[facility] HospitalIn the event this information is protected by the Federal Confidentiality of Alcohol and Drug Abuse Patient Records regulations: The Federal rules restrict any use of the information to criminally investigate or prosecute any alcohol or drug abuse patient.[facility] HospitalIn the event this information is protected by the Federal Confidentiality of Alcohol and Drug Abuse Patient Records regulations: The Federal rules restrict any use of the information to criminally investigate or prosecute any alcohol or drug abuse patient.[facility] HospitalIn the event this information is protected by the Federal Confidentiality of Alcohol and Drug Abuse Patient Records regulations: The Federal rules restrict any use of the information to criminally investigate or prosecute any alcohol or drug abuse patient.[facility] HospitalIn the event this information is protected by the Federal Confidentiality of Alcohol and Drug Abuse Patient Records regulations: The Federal rules restrict any use of the information to criminally investigate or prosecute any alcohol or drug abuse patient.[facility] HospitalIn the event this information is protected by the Federal Confidentiality of Alcohol and Drug Abuse Patient Records regulations: The Federal rules restrict any use of the information to criminally investigate or prosecute any alcohol or drug abuse patient.[facility] HospitalIn the event this information is protected by the Federal Confidentiality of Alcohol and Drug Abuse Patient Records regulations: The Federal rules restrict any use of the information to criminally investigate or prosecute any alcohol or drug abuse patient.[facility] HospitalIn the event this information is protected by the Federal Confidentiality of Alcohol and Drug Abuse Patient Records regulations: The Federal rules restrict any use of the information to criminally investigate or prosecute any alcohol or drug abuse patient.[facility] HospitalIn the event this information is protected by the Federal Confidentiality of Alcohol and Drug Abuse Patient Records regulations: The Federal rules restrict any use of the information to criminally investigate or prosecute any alcohol or drug abuse patient.[facility] HospitalIn the event this information is protected by the Federal Confidentiality of Alcohol and Drug Abuse Patient Records regulations: The Federal rules restrict any use of the information to criminally investigate or prosecute any alcohol or drug abuse patient.[facility] HospitalIn the event this information is protected by the Federal Confidentiality of Alcohol and Drug Abuse Patient Records regulations: The Federal rules restrict any use of the information to criminally investigate or prosecute any alcohol or drug abuse patient.[facility] HospitalIn the event this information is protected by the Federal Confidentiality of Alcohol and Drug Abuse Patient Records regulations: The Federal rules restrict any use of the information to criminally investigate or prosecute any alcohol or drug abuse patient.[facility] HospitalIn the event this information is protected by the Federal Confidentiality of Alcohol and Drug Abuse Patient Records regulations: The Federal rules restrict any use of the information to criminally investigate or prosecute any alcohol or drug abuse patient.[facility] HospitalIn the event this information is protected by the Federal Confidentiality of Alcohol and Drug Abuse Patient Records regulations: The Federal rules restrict any use of the information to criminally investigate or prosecute any alcohol or drug abuse patient.[facility] HospitalIn the event this information is protected by the Federal Confidentiality of Alcohol and Drug Abuse Patient Records regulations: The Federal rules restrict any use of the information to criminally investigate or prosecute any alcohol or drug abuse patient.[facility] HospitalIn the event this information is protected by the Federal Confidentiality of Alcohol and Drug Abuse Patient Records regulations: The Federal rules restrict any use of the information to criminally investigate or prosecute any alcohol or drug abuse patient.[facility] HospitalIn the event this information is protected by the Federal Confidentiality of Alcohol and Drug Abuse Patient Records regulations: The Federal rules restrict any use of the information to criminally investigate or prosecute any alcohol or drug abuse patient.[facility] HospitalIn the event this information is protected by the Federal Confidentiality of Alcohol and Drug Abuse Patient Records regulations: The Federal rules restrict any use of the information to criminally investigate or prosecute any alcohol or drug abuse patient.[facility] HospitalIn the event this information is protected by the Federal Confidentiality of Alcohol and Drug Abuse Patient Records regulations: The Federal rules restrict any use of the information to criminally investigate or prosecute any alcohol or drug abuse patient.[facility] HospitalIn the event this information is protected by the Federal Confidentiality of Alcohol and Drug Abuse Patient Records regulations: The Federal rules restrict any use of the information to criminally investigate or prosecute any alcohol or drug abuse patient.[facility] HospitalIn the event this information is protected by the Federal Confidentiality of Alcohol and Drug Abuse Patient Records regulations: The Federal rules restrict any use of the information to criminally investigate or prosecute any alcohol or drug abuse patient.[facility] HospitalIn the event this information is protected by the Federal Confidentiality of Alcohol and Drug Abuse Patient Records regulations: The Federal rules restrict any use of the information to criminally investigate or prosecute any alcohol or drug abuse patient.[facility] HospitalIn the event this information is protected by the Federal Confidentiality of Alcohol and Drug Abuse Patient Records regulations: The Federal rules restrict any use of the information to criminally investigate or prosecute any alcohol or drug abuse patient.[facility] HospitalIn the event this information is protected by the Federal Confidentiality of Alcohol and Drug Abuse Patient Records regulations: The Federal rules restrict any use of the information to criminally investigate or prosecute any alcohol or drug abuse patient.[facility] HospitalIn the event this information is protected by the Federal Confidentiality of Alcohol and Drug Abuse Patient Records regulations: The Federal rules restrict any use of the information to criminally investigate or prosecute any alcohol or drug abuse patient.[facility] HospitalIn the event this information is protected by the Federal Confidentiality of Alcohol and Drug Abuse Patient Records regulations: The Federal rules restrict any use of the information to criminally investigate or prosecute any alcohol or drug abuse patient.[facility] HospitalIn the event this information is protected by the Federal Confidentiality of Alcohol and Drug Abuse Patient Records regulations: The Federal rules restrict any use of the information to criminally investigate or prosecute any alcohol or drug abuse patient.[facility] HospitalIn the event this information is protected by the Federal Confidentiality of Alcohol and Drug Abuse Patient Records regulations: The Federal rules restrict any use of the information to criminally investigate or prosecute any alcohol or drug abuse patient.[facility] HospitalIn the event this information is protected by the Federal Confidentiality of Alcohol and Drug Abuse Patient Records regulations: The Federal rules restrict any use of the information to criminally investigate or prosecute any alcohol or drug abuse patient.[facility] HospitalIn the event this information is protected by the Federal Confidentiality of Alcohol and Drug Abuse Patient Records regulations: The Federal rules restrict any use of the information to criminally investigate or prosecute any alcohol or drug abuse patient.[facility] HospitalIn the event this information is protected by the Federal Confidentiality of Alcohol and Drug Abuse Patient Records regulations: The Federal rules restrict any use of the information to criminally investigate or prosecute any alcohol or drug abuse patient.[facility] HospitalIn the event this information is protected by the Federal Confidentiality of Alcohol and Drug Abuse Patient Records regulations: The Federal rules restrict any use of the information to criminally investigate or prosecute any alcohol or drug abuse patient.[facility] HospitalIn the event this information is protected by the Federal Confidentiality of Alcohol and Drug Abuse Patient Records regulations: The Federal rules restrict any use of the information to criminally investigate or prosecute any alcohol or drug abuse patient.[facility] HospitalIn the event this information is protected by the Federal Confidentiality of Alcohol and Drug Abuse Patient Records regulations: The Federal rules restrict any use of the information to criminally investigate or prosecute any alcohol or drug abuse patient.[facility] HospitalIn the event this information is protected by the Federal Confidentiality of Alcohol and Drug Abuse Patient Records regulations: The Federal rules restrict any use of the information to criminally investigate or prosecute any alcohol or drug abuse patient.[facility] HospitalIn the event this information is protected by the Federal Confidentiality of Alcohol and Drug Abuse Patient Records regulations: The Federal rules restrict any use of the information to criminally investigate or prosecute any alcohol or drug abuse patient.[facility] HospitalIn the event this information is protected by the Federal Confidentiality of Alcohol and Drug Abuse Patient Records regulations: The Federal rules restrict any use of the information to criminally investigate or prosecute any alcohol or drug abuse patient.[facility] HospitalIn the event this information is protected by the Federal Confidentiality of Alcohol and Drug Abuse Patient Records regulations: The Federal rules restrict any use of the information to criminally investigate or prosecute any alcohol or drug abuse patient.[facility] HospitalIn the event this information is protected by the Federal Confidentiality of Alcohol and Drug Abuse Patient Records regulations: The Federal rules restrict any use of the information to criminally investigate or prosecute any alcohol or drug abuse patient.[facility] HospitalIn the event this information is protected by the Federal Confidentiality of Alcohol and Drug Abuse Patient Records regulations: The Federal rules restrict any use of the information to criminally investigate or prosecute any alcohol or drug abuse patient.[facility] HospitalIn the event this information is protected by the Federal Confidentiality of Alcohol and Drug Abuse Patient Records regulations: The Federal rules restrict any use of the information to criminally investigate or prosecute any alcohol or drug abuse patient.[facility] HospitalIn the event this information is protected by the Federal Confidentiality of Alcohol and Drug Abuse Patient Records regulations: The Federal rules restrict any use of the information to criminally investigate or prosecute any alcohol or drug abuse patient.[facility] HospitalIn the event this information is protected by the Federal Confidentiality of Alcohol and Drug Abuse Patient Records regulations: The Federal rules restrict any use of the information to criminally investigate or prosecute any alcohol or drug abuse patient.[facility] HospitalIn the event this information is protected by the Federal Confidentiality of Alcohol and Drug Abuse Patient Records regulations: The Federal rules restrict any use of the information to criminally investigate or prosecute any alcohol or drug abuse patient.[facility] HospitalIn the event this information is protected by the Federal Confidentiality of Alcohol and Drug Abuse Patient Records regulations: The Federal rules restrict any use of the information to criminally investigate or prosecute any alcohol or drug abuse patient.[facility] HospitalIn the event this information is protected by the Federal Confidentiality of Alcohol and Drug Abuse Patient Records regulations: The Federal rules restrict any use of the information to criminally investigate or prosecute any alcohol or drug abuse patient.[facility] HospitalIn the event this information is protected by the Federal Confidentiality of Alcohol and Drug Abuse Patient Records regulations: The Federal rules restrict any use of the information to criminally investigate or prosecute any alcohol or drug abuse patient.[facility] HospitalIn the event this information is protected by the Federal Confidentiality of Alcohol and Drug Abuse Patient Records regulations: The Federal rules restrict any use of the information to criminally investigate or prosecute any alcohol or drug abuse patient.[facility] HospitalIn the event this information is protected by the Federal Confidentiality of Alcohol and Drug Abuse Patient Records regulations: The Federal rules restrict any use of the information to criminally investigate or prosecute any alcohol or drug abuse patient.[facility] HospitalIn the event this information is protected by the Federal Confidentiality of Alcohol and Drug Abuse Patient Records regulations: The Federal rules restrict any use of the information to criminally investigate or prosecute any alcohol or drug abuse patient.[facility] HospitalIn the event this information is protected by the Federal Confidentiality of Alcohol and Drug Abuse Patient Records regulations: The Federal rules restrict any use of the information to criminally investigate or prosecute any alcohol or drug abuse patient.[facility] HospitalIn the event this information is protected by the Federal Confidentiality of Alcohol and Drug Abuse Patient Records regulations: The Federal rules restrict any use of the information to criminally investigate or prosecute any alcohol or drug abuse patient.[facility] HospitalIn the event this information is protected by the Federal Confidentiality of Alcohol and Drug Abuse Patient Records regulations: The Federal rules restrict any use of the information to criminally investigate or prosecute any alcohol or drug abuse patient.[facility] HospitalIn the event this information is protected by the Federal Confidentiality of Alcohol and Drug Abuse Patient Records regulations: The Federal rules restrict any use of the information to criminally investigate or prosecute any alcohol or drug abuse patient.[facility] HospitalIn the event this information is protected by the Federal Confidentiality of Alcohol and Drug Abuse Patient Records regulations: The Federal rules restrict any use of the information to criminally investigate or prosecute any alcohol or drug abuse patient.[facility] HospitalIn the event this information is protected by the Federal Confidentiality of Alcohol and Drug Abuse Patient Records regulations: The Federal rules restrict any use of the information to criminally investigate or prosecute any alcohol or drug abuse patient.[facility] HospitalIn the event this information is protected by the Federal Confidentiality of Alcohol and Drug Abuse Patient Records regulations: The Federal rules restrict any use of the information to criminally investigate or prosecute any alcohol or drug abuse patient.[facility] HospitalIn the event this information is protected by the Federal Confidentiality of Alcohol and Drug Abuse Patient Records regulations: The Federal rules restrict any use of the information to criminally investigate or prosecute any alcohol or drug abuse patient.[facility] HospitalIn the event this information is protected by the Federal Confidentiality of Alcohol and Drug Abuse Patient Records regulations: The Federal rules restrict any use of the information to criminally investigate or prosecute any alcohol or drug abuse patient.[facility] HospitalIn the event this information is protected by the Federal Confidentiality of Alcohol and Drug Abuse Patient Records regulations: The Federal rules restrict any use of the information to criminally investigate or prosecute any alcohol or drug abuse patient.[facility] HospitalIn the event this information is protected by the Federal Confidentiality of Alcohol and Drug Abuse Patient Records regulations: The Federal rules restrict any use of the information to criminally investigate or prosecute any alcohol or drug abuse patient.[facility] HospitalIn the event this information is protected by the Federal Confidentiality of Alcohol and Drug Abuse Patient Records regulations: The Federal rules restrict any use of the information to criminally investigate or prosecute any alcohol or drug abuse patient.[facility] HospitalIn the event this information is protected by the Federal Confidentiality of Alcohol and Drug Abuse Patient Records regulations: The Federal rules restrict any use of the information to criminally investigate or prosecute any alcohol or drug abuse patient.[facility] HospitalIn the event this information is protected by the Federal Confidentiality of Alcohol and Drug Abuse Patient Records regulations: The Federal rules restrict any use of the information to criminally investigate or prosecute any alcohol or drug abuse patient.[facility] Reason for Visit (unrecogniz ed section and content) Reason Comments Patient Education Assessment Specialty Diagnoses / Procedures Referred By Christie hidlago Referred To Contact Nutrition Diagnoses Class 3 severe obesity due to excess calories with body mass index (BMI) of 50.0 to 59.9 in adult, unspecified whether serious comorbidity present (HCC) Procedures CONSULT TO NUTRITION THERAPY MEDICAL NUTRITION ASSMT&IVNTJ INDIV EACH 15 RI Genaro Morales APRN.SEAL MIXING OPERATOR [address] [place] [address] Referral ID Status Reason Start Date Expiration Date Visits Requested Visits Authorized [id number] Authorized PCP Requested Referral 04/03/2024 04/03/2025 1 4 Reason Comments Recheck Specialty Diagnoses / Procedures Referred By Christie hidalgo Referred To Contact RHEUMATOLOGY Diagnoses Juvenile idiopathic arthritis (HCC) Procedures office visit Silvia Tucker MD [address] [place] [address] [facility] [address] [place] [address] Referral ID Status Reason Start Date Expiration Date V isits Requested Visits Authorized [id number] Closed Financial Clearance Required - Self Pay [...] By Christie hidalgo Referred To Contact [facility] Diagnoses Encounter for IUD insertion Procedures INSERT INTRAUTERINE DEVICE INSERT INTRAUTERINE DEVICE Ayaan Rowley, SUPERVISOR FELLING BUCKING.CNM [address] [place] [address] [facility] [address] [place] [address] Referral ID Status Reason Start Date Expiration Date V isits Requested Visits Authorized [id number] Authorized 08/15/2021 08/14/2022 2 2 Reason Comments Follow Up Reason Comments Shortness of Breath Reason Comments IUD Reason Onset Date Comments Refill Request 01/16/2022 Reason Comments Results Reason Onset Date Comments Refill Request 02/18/2022 Reason Onset Date Comments SPP Inflammatory Conditions - Treatment Referral 02/19/2022 Ilaris Reason Comments Consult Reason Comments Consult [facility] Pt Outreach F/U Reason Onset Date Comments Refill Request 02/25/2022 Reason Comments Consult [facility] assessment Virt ual Reason Onset Date Comments [...] SCAN,ABDOMENT AND PELVIS,W CONTRAST Marina Goodrich T, SUPERVISOR FELLING BUCKING-TECHNICAL INTERN [address] [place] [id number] Referral ID Status Reason Start Date Expiration Date Visits Re quested Visits Authorized [id number] Closed 06/28/2022 07/23/2023 1 1 Reason Comments [...] To Contact Diagnoses . Procedures . Self [facility] Dept Referral ID Status Reason Start Date Expiration Date V isits Requested Visits Authorized [id number] Closed Patient Cleared - Qualified 100% FAS [...] k. Reason Comments new form coming from [employer] Reason Comments requesting copy of form faxed [...] Date Expiration Date Visits Requested Visits Authorized [id number] New Request Financial Clearance Required - Self Pay OON/Self Pay Override 03/12/2024 06/10/2024 99 [phone] Reason Comments Results Colposcopy Reason Comments Colposcopy Specialty Diagnoses / Procedures Referred By Contfroilan t Referred To Contact [facility] Diagnoses Cervical high risk HPV (human papillomavirus) test positive Procedures COLPOSCOPY COLPOSCOPY CERVIX BX CERVIX & ENDOCRV CURRETAGE Nani Freeman APRN.TECHNICAL INTERN [address] [place] [address] [facility] [address] [facility] [place] [place] [address] Referral ID Status Reason Start Date Expiration Date V isits Requested Visits Authorized [id number] Closed Auto-Generate d Referral 03/12/2024 03/12/2025 1 [...] [place] [address] [place] [address] [facility] [place] [address] Referral ID Status Reason Start Date Expiration Date V isits Requested Visits Authorized [id number] Closed Auto-Generate d Referral 06/27/2020 08/25/2020 3 [...] the last 5 days. 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 Reason Onset Date Comments SPP Inflammatory Conditions - Medication Refill 01/31/2025 Ilaris Reason Comments [facility] (unrecognized sec tion and content) Autocad Detailer Relationship Specialty Start Date End Date Faustina Carcamo MD [address] [place] [address] PCP - General Internal Medicine 04/10/13 Autocad Detailer Relationship Specialty Start Date End Date Faustina Carcamo MD [address] [place] [id number] PCP - General Internal Medicine 04/10/13 Autocad Detailer Relationship Specialty Start Date End Date Faustina Carcamo MD [address] [place] [address] PCP - General Internal Medicine 04/10/13 Autocad Detailer Relationship Specialty Start Date End Date Faustina Carcamo MD [facility] [place] [address] PCP - General Internal Medicine 04/10/13 Autocad Detailer Relationship Specialty Start Date End Date Faustina Carcamo MD [address] [place] [address] PCP - General Internal Medicine 04/10/13 Autocad Detailer Relationship Specialty Start Date End Date Faustina Carcamo MD [address] [place] [address] PCP - General Internal Medicine 04/10/13 Autocad Detailer Relationship Specialty Start Date End Date Faustina Carcamo MD [address] [place] [address] PCP - General Internal Medicine 04/10/13 Autocad Detailer Relationship Specialty Start Date End Date Faustina Carcamo MD [facility] [place] [address] PCP - General Internal Medicine 04/10/13 Autocad Detailer Relationship Specialty Start Date End Date Faustina Carcamo MD [address] [place] [address], [place] [address] PCP - General Internal Medicine 04/10/13 Autocad Detailer Relationship Specialty Start Date End Date Faustina Carcamo MD [address] [place] [address], [place] [address] PCP - General Internal Medicine 04/10/13 Autocad Detailer Relationship Specialty Start Date End Date Faustina Carcamo MD [address] [place] [address], [place] [address] PCP - General Internal Medicine 04/10/13 Autocad Detailer Relationship Specialty Start Date End Date Faustina Carcamo MD [address] [place] [address], [place] [address] PCP - General Internal Medicine 04/10/13 Autocad Detailer Relationship Specialty Start Date End Date Faustina Carcamo MD [address] [place] [address], [place] [address] PCP - General Internal Medicine 04/10/13 Autocad Detailer Relationship Specialty Start Date End Date Faustina Carcamo MD [address] [place] [address], [place] [address] PCP - General Internal Medicine 04/10/13 Autocad Detailer Relationship Specialty Start Date End Date Faustina Carcamo MD [address] [place] [address], [place] [address] PCP - General Internal Medicine 04/10/13 Autocad Detailer Relationship Specialty Start Date End Date Faustina Carcaom MD [address] [place] [address] PCP - General Internal Medicine 04/10/13 Autocad Detailer Relationship Specialty Start Date End Date Faustina Carcamo MD [address] [place] [address] PCP - General Internal Medicine 04/10/13 Autocad Detailer Relationship Specialty Start Date End Date Faustina Carcamo MD [address] [place] [address] PCP - General Internal Medicine 04/10/13 Autocad Detailer Relationship Specialty Start Date End Date Mario Vazquez MBBS [address] [place] [address], [place] [address] PCP - General Internal Medicine 04/16/22 Autocad Detailer Relationship Specialty Start Date End Date No, Physician [facility] PCP - General 05/02/22 Autocad Detailer Relationship Specialty Start Date End Date Mario Vazquez MBBS [address] [place] [address], [place] [address] PCP - General Internal Medicine 04/16/22 Autocad Detailer Relationship Specialty Start Date End Date Mario Vazquez MBBS [address] [place] [address], [place] [address] PCP - General Internal Medicine 04/16/22 Autocad Detailer Relationship Specialty Start Date End Date Mario Vazquez MBBS [address] [place] [address], [place] [address] PCP - General Internal Medicine 04/16/22 Autocad Detailer Relationship Specialty Start Date End Date Faustina Carcamo MD [address] [place] [address] PCP - General Internal Medicine 04/10/13 Autocad Detailer Relationship Specialty Start Date End Date Faustina Carcamo MD [address] [place] [address] PCP - General Internal Medicine 04/10/13 Autocad Detailer Relationship Specialty Start Date End Date Mario Vazquez MBBS [address] [place] [address] PCP - General Internal Medicine 04/16/22 Autocad Detailer Relationship Specialty Start Date End Date Faustina Carcamo MD [address] [place] [address] PCP - General Internal Medicine 04/10/13 Autocad Detailer Relationship Specialty Start Date End Date Faustina Carcamo MD [address] [place] [address] PCP - General Internal Medicine 04/10/13 Autocad Detailer Relationship Specialty Start Date End Date Faustina Carcamo MD [address] [place] [address] PCP - General Internal Medicine 04/10/13 Autocad Detailer Relationship Specialty Start Date End Date Faustina Carcamo MD [address] [place] [address] PCP - General Internal Medicine 04/10/13 Autocad Detailer Relationship Specialty Start Date End Date Faustina Carcamo MD [address] [place] [address] PCP - General Internal Medicine 04/10/13 Autocad Detailer Relationship Specialty Start Date End Date Faustina Carcamo MD [address] [place] [address] PCP - General Internal Medicine 04/10/13 Autocad Detailer Relationship Specialty Start Date End Date Faustina Carcamo MD [address] [place] [address] PCP - General Internal Medicine 04/10/13 Autocad Detailer Relationship Specialty Start Date End Date Faustina Carcamo MD [address] [place] [address] PCP - General Internal Medicine 04/10/13 Autocad Detailer Relationship Specialty Start Date End Date Faustina Carcamo MD [address] [place] [address] PCP - General Internal Medicine 04/10/13 Autocad Detailer Relationship Specialty Start Date End Date Faustina Carcamo MD [address] [place] [address] PCP - General Internal Medicine 04/10/13 Autocad Detailer Relationship Specialty Start Date End Date Faustina Carcamo MD [address] [place] [address] PCP - General Internal Medicine 04/10/13 Autocad Detailer Relationship Specialty Start Date End Date Faustina Carcamo MD [address] [place] [address] PCP - General Internal Medicine 04/10/13 Autocad Detailer Relationship Specialty Start Date End Date Faustina Carcamo MD [address] [place] [address] PCP - General Internal Medicine 04/10/13 Autocad Detailer Relationship Specialty Start Date End Date Faustina Carcamo MD [address] [place] [address] PCP - General Internal Medicine 04/10/13 Autocad Detailer Relationship Specialty Start Date End Date Faustina Carcamo MD [address] [place] [address] PCP - General Internal Medicine 04/10/13 Autocad Detailer Relationship Specialty Start Date End Date Faustina Carcamo MD 0 [place] [address] PCP - General Internal Medicine 04/10/13 Autocad Detailer Relationship Specialty Start Date End Date Faustina Carcamo MD [address] [place] [address] PCP - General Internal Medicine 04/10/13 Autocad Detailer Relationship Specialty Start Date End Date Faustina Carcamo MD [address] [place] [address] PCP - General Internal Medicine 04/10/13 Autocad Detailer Relationship Specialty Start Date End Date Faustina Carcamo MD [address] [place] [address] PCP - General Internal Medicine 04/10/13 Autocad Detailer Relationship Specialty Start Date End Date Faustina Carcamo MD [address] [place] [address] PCP - General Internal Medicine 04/10/13 Autocad Detailer Relationship Specialty Start Date End Date Faustina Carcamo MD [address] [place] [address] PCP - General Internal Medicine 04/10/13 Autocad Detailer Relationship Specialty Start Date End Date Faustina Carcamo MD [address] [place] [address] PCP - General Internal Medicine 04/10/13 Autocad Detailer Relationship Specialty Start Date End Date Faustina Carcamo MD [address] [place] [address] PCP - General Internal Medicine 04/10/13 Autocad Detailer Relationship Specialty Start Date End Date Faustina Carcamo MD [address] [place] [address] PCP - General Internal Medicine 04/10/13 Autocad Detailer Relationship Specialty Start Date End Date Faustina Carcamo MD [address] [place] [address] PCP - General Internal Medicine 04/10/13 Autocad Detailer Relationship Specialty Start Date End Date Faustina Carcamo MD [address] [place] [address] PCP - General Internal Medicine 04/10/13 Autocad Detailer Relationship Specialty Start Date End Date Faustina Carcamo MD [address] [place] [address] PCP - General Internal Medicine 04/10/13 Autocad Detailer Relationship Specialty Start Date End Date Faustina Carcamo MD [address] [place] [address] PCP - General Internal Medicine 04/10/13 Autocad Detailer Relationship Specialty Start Date End Date Faustina Carcamo MD [address] [place] [address] PCP - General Internal Medicine 04/10/13 Autocad Detailer Relationship Specialty Start Date End Date Faustina Carcamo MD [address] [place] [address] PCP - General Internal Medicine 04/10/13 Autocad Detailer Relationship Specialty Start Date End Date Faustina Carcamo MD [address] [place] [address] PCP - General Internal Medicine 04/10/13 Autocad Detailer Relationship Specialty Start Date End Date Faustina Carcamo MD [address] [place] [address] PCP - General Internal Medicine 04/10/13 Autocad Detailer Relationship Specialty Start Date End Date Faustina Carcamo MD [address] [place] [address] PCP - General Internal Medicine 04/10/13 Autocad Detailer Relationship Specialty Start Date End Date Faustina Carcamo MD [address] [place] [address] PCP - General Internal Medicine 04/10/13 Autocad Detailer Relationship Specialty Start Date End Date Faustina Carcamo MD [address] [place] [address] PCP - General Internal Medicine 04/10/13 Autocad Detailer Relationship Specialty Start Date End Date Faustina Carcamo MD [address] [place] [address] PCP - General Internal Medicine 04/10/13 Autocad Detailer Relationship Specialty Start Date End Date Faustina Carcamo MD [address] [place] [address] PCP - General Internal Medicine 04/10/13 Genaro Morales, SUPERVISOR FELLING BUCKING.SEAL MIXING OPERATOR [address] [place] [address] Children Teacher Internal Medicine 07/23/24 Petra Beckman SUPERVISOR FELLING BUCKING.TECHNICAL INTERN [address] [place] [address] Children Teacher Internal Medicine 07/23/24 Autocad Detailer Relationship Specialty Start Date End Date Faustina Carcamo MD [address] [place] [address] PCP - General Internal Medicine 04/10/13 Genaro Morales, SUPERVISOR FELLING BUCKING.SEAL MIXING OPERATOR [address] [place] [address] Children Teacher Internal Medicine 07/23/24 Petra Beckman, SUPERVISOR FELLING BUCKING.TECHNICAL INTERN [address] [place] [address] [facility] Internal Medicine 07/23/24 Autocad Detailer Relationship Specialty Start Date End Date Faustina Carcamo MD [address] [place] [address] PCP - General Internal Medicine 04/10/13 Genaro Morales, SUPERVISOR FELLING BUCKING.SEAL MIXING OPERATOR [address] [place] [address] Children Teacher Internal Medicine 07/23/24 Petra Beckman APRN.TECHNICAL INTERN [address] [place] [address] [facility] Internal Medicine 07/23/[address] [place] [address] [facility] 07/27/24 Autocad Detailer Relationship Specialty Start Date End Date Faustina Carcamo MD [address] [place] [address] PCP - General Internal Medicine 04/10/13 Genaro Morales APRN.SEAL MIXING OPERATOR [address] [place] [address] [facility] Internal Medicine 07/23/24 Petra Beckman APRN.TECHNICAL INTERN [address] [place] [address] [facility] Internal Medicine 07/23/[address] [place], [place] [phone] Nutrition 07/27/24 Autocad Detailer Relationship Specialty Start Date End Date Faustina Carcamo MD [address] [place] [address] PCP - General Internal Medicine 04/10/13 Genaro Morales APRN.SEAL MIXING OPERATOR [address] [place] [address] [facility] Internal Medicine 07/23/24 Petra Beckman APRN.TECHNICAL INTERN [facility] [place] [address] Children Teacher Internal Medicine 07/23/[address] [place] [address] [facility] 07/27/24 Autocad Detailer Relationship Specialty Start Date End Date Faustina Carcamo MD [facility] [place] [address] PCP - General Internal Medicine 04/10/13 Genaro Morales SUPERVISOR FELLING BUCKING.SEAL MIXING OPERATOR [facility] [place] [address] Children Teacher Internal Medicine 07/23/24 Petra Beckman SUPERVISOR FELLING BUCKING.TECHNICAL INTERN [address] [place] [address] Children Teacher Internal Medicine 07/23/[address] [place] [address] [facility] 07/27/24 Autocad Detailer Relationship Specialty Start Date End Date Faustina Carcamo MD [facility] [place] [address] PCP - General Internal Medicine 04/10/13 Genaro Morales SUPERVISOR FELLING BUCKING.SEAL MIXING OPERATOR [facility] [place] [address] Children Teacher Internal Medicine 07/23/24 Petra Beckman SUPERVISOR FELLING BUCKING.TECHNICAL INTERN [facility] [place] [address] Children Teacher Internal Medicine 07/23/[address] [place] [address] [facility] 07/27/24 Autocad Detailer Relationship Specialty Start Date End Date Faustina Carcamo MD [facility] [place] [address] PCP - General Internal Medicine 04/10/13 Genaro Morales, SUPERVISOR FELLING BUCKING.SEAL MIXING OPERATOR [facility] [place] [address] [facility] Internal Medicine 07/23/24 Petra Beckman SUPERVISOR FELLING BUCKING.TECHNICAL INTERN [address] [place] [address] [facility] Internal Medicine 07/23/[address] [place] [phone] [facility] 07/27/24 Autocad Detailer Relationship Specialty Start Date End Date Faustina Carcamo MD [facility] [place] [address] PCP - General Internal Medicine 04/10/13 Genaro Morales, SUPERVISOR FELLING BUCKING.SEAL MIXING OPERATOR [facility] [place] [address] [facility] Internal Medicine 07/23/24 Petra Beckman SUPERVISOR FELLING BUCKING.TECHNICAL INTERN [address] [place] [address] [facility] Internal Medicine 07/23/[address] [address] [facility] 07/27/24 Autocad Detailer Relationship Specialty Start Date End Date Faustina Carcamo MD [address] [place] [address] PCP - General Internal Medicine 04/10/13 Genaro Morales, SUPERVISOR FELLING BUCKING.SEAL MIXING OPERATOR [facility] [place] [address] Children Teacher Internal Medicine 07/23/24 Petra Beckman APRN.TECHNICAL INTERN [address] [place] [address] Children Teacher Internal Medicine 07/23/[address] [place] [address] [facility] 07/27/24 Autocad Detailer Relationship Specialty Start Date End Date Faustina Carcamo MD [facility] [place] [address] PCP - General Internal Medicine 04/10/13 Genaro Morales, SUPERVISOR FELLING BUCKING.SEAL MIXING OPERATOR [facility] [place] [address] Children Teacher Internal Medicine 07/23/24 Petra Beckman APRN.TECHNICAL INTERN [address] [place] [address] Children Teacher Internal Medicine 07/23/[address] [place] [address] Nutrition 07/27/24 Autocad Detailer Relationship Specialty Start Date End Date Faustina Carcamo MD [address] [place] [address] PCP - General Internal Medicine 04/10/13 Genaro Morales, SUPERVISOR FELLING BUCKING.SEAL MIXING OPERATOR [address] [place] [address] Children Teacher Internal Medicine 07/23/24 Petra Beckman SUPERVISOR FELLING BUCKING.TECHNICAL INTERN [address] [place] [address] Children Teacher Internal Medicine 07/23/[address] [place] [address] Nutrition 07/27/24 Autocad Detailer Relationship Specialty Start Date End Date Faustina Carcamo MD [address] [place] [address] PCP - General Internal Medicine 04/10/13 Genaro Morales, SUPERVISOR FELLING BUCKING.SEAL MIXING OPERATOR [address] [place] [address] Children Teacher Internal Medicine 07/23/24 Petra Beckman SUPERVISOR FELLING BUCKING.TECHNICAL INTERN [address] [place] [address] Children Teacher Internal Medicine 07/23/[address] [place] [address] Nutrition 07/27/24 Autocad Detailer Relationship Specialty Start Date End Date Faustina Carcamo MD [address] [place] [address] PCP - General Internal Medicine 04/10/13 Genaro Morales, SUPERVISOR FELLING BUCKING.SEAL MIXING OPERATOR [address] [place] [address] Children Teacher Internal Medicine 07/23/24 Petra Beckman, SUPERVISOR FELLING BUCKING.TECHNICAL INTERN [address] [place] [address] Children Teacher Internal Medicine 07/23/[address] [place] [address] [facility] 07/27/24 Autocad Detailer Relationship Specialty Start Date End Date Faustina Carcamo MD [address] [place] [address] PCP - General Internal Medicine 04/10/13 Genaro Morales, SUPERVISOR FELLING BUCKING.SEAL MIXING OPERATOR [address] [place] [address] Children Teacher Internal Medicine 07/23/24 Petra Beckman SUPERVISOR FELLING BUCKING.TECHNICAL INTERN [address] [place] [address] Children Teacher Internal Medicine 07/23/[address] [place] [address] Nutrition 07/27/24 Autocad Detailer Relationship Specialty Start Date End Date Faustina Carcamo MD [address] [place] [address] PCP - General Internal Medicine 04/10/13 Genaro Morales, SUPERVISOR FELLING BUCKING.SEAL MIXING OPERATOR [address] [place] [address] Children Teacher Internal Medicine 07/23/24 Petra Beckman SUPERVISOR FELLING BUCKING.TECHNICAL INTERN [address] [place] [address] [facility] Internal Medicine 07/23/[address] [place] [address] [facility] 07/27/24 Autocad Detailer Relationship Specialty Start Date End Date Faustina Carcamo MD [address] [place] [address] PCP - General Internal Medicine 04/10/13 Genaro Morales, SUPERVISOR FELLING BUCKING.SEAL MIXING OPERATOR [address] [place] [address] [facility] Internal Medicine 07/23/24 Petra Beckman SUPERVISOR FELLING BUCKING.TECHNICAL INTERN [address] [place] [address] [facility] Internal Medicine 07/23/[address] [place] [address] Nutrition 07/27/24 Autocad Detailer Relationship Specialty Start Date End Date Faustina Carcamo MD [address] [place] [address] PCP - General Internal Medicine 04/10/13 Genaro Morales, SUPERVISOR FELLING BUCKING.SEAL MIXING OPERATOR [address] [place] [address] [facility] Internal Medicine 07/23/24 Petra Beckman APRN.TECHNICAL INTERN [address] [place] [address] [facility] Internal Medicine 07/23/24 [facility] [address] [place] [address] [facility] 07/27/24 Autocad Detailer Relationship Specialty Start Date End Date Faustina Carcamo MD [address] [place] [address] PCP - General Internal Medicine 04/10/13 Genaro Morales APRN.SEAL MIXING OPERATOR [address] [place] [address] [facility] Internal Medicine 07/23/24 [facility] [address] [place] [address] Nutrition 07/27/24 Petra Beckman APRN.TECHNICAL INTERN [address] [place] [address] [facility] Internal Medicine 11/06/24 Autocad Detailer Relationship Specialty Start Date End Date Faustina Carcamo MD [address] [place] [address] PCP - General Internal Medicine 04/10/13 Genaro Morales, GENI.SEAL MIXING OPERATOR [address] [place] [address] Children Teacher Internal Medicine 07/23/24 Petra Beckman APRN.TECHNICAL INTERN [address] [place] [address] Children Teacher Internal Medicine 07/23/24 11/02/[address] [place] [address] Nutrition 07/27/24 Autocad Detailer Relationship Specialty Start Date End Date Faustina Carcamo MD [facility] [place] [address] PCP - General Internal Medicine 04/10/13 Genaro Morales APRN.SEAL MIXING OPERATOR [address] [place] [address] [facility] Internal Medicine 07/23/[address] [place] [address] Nutrition 07/27/24 Petra Beckman APRN.TECHNICAL INTERN [address] [place] [address] [facility] Internal Medicine 11/06/24 Autocad Detailer Relationship Specialty Start Date End Date Faustnia Carcamo MD [address] [place] [address] PCP - General Internal Medicine 04/10/13 Genaro Morales APRN.SEAL MIXING OPERATOR [address] [place] [address] [facility] Internal Medicine 07/23/[address] [place] [address] Nutrition 07/27/24 Petra Beckman APRN.TECHNICAL INTERN [address] [place] [address] [facility] Internal Medicine 11/06/24 Autocad Detailer Relationship Specialty Start Date End Date Faustina Carcamo MD [address] [place] [address] PCP - General Internal Medicine 04/10/13 Genaro Morales, GENI.SEAL MIXING OPERATOR [address] [place] [address] [facility] Internal Medicine 07/23/24 [facility] [address] [place] [address] [facility] 07/27/24 Petra Beckman APRN.TECHNICAL INTERN [address] [place] [address] [facility] Internal Medicine 11/06/24 Autocad Detailer Relationship Specialty Start Date End Date Faustina Carcamo MD [address] [place] [address] PCP - General Internal Medicine 04/10/13 Genaro Morales APRN.SEAL MIXING OPERATOR [address] [place] [address] [facility] Internal Medicine 07/23/24 Petra Beckman APRN.TECHNICAL INTERN [address] [place] [address] Children Teacher Internal Medicine 07/23/24 11/02/[address] [place] [address] Nutrition 07/27/24 Petra Beckman APRN.TECHNICAL INTERN [address] [place] [address] Children Teacher Internal Medicine 11/06/24 Autocad Detailer Relationship Specialty Start Date End Date Faustina Carcamo MD [facility] [place] [address] PCP - General Internal Medicine 04/10/13 Genaro Morales, GENI.SEAL MIXING OPERATOR [facility] [place] [address] Children Teacher Internal Medicine 07/23/[address] [place] [address] Nutrition 07/27/24 Petra Beckman APRN.TECHNICAL INTERN [facility] [place] [address] Children Teacher Internal Medicine 11/06/24 Autocad Detailer Relationship Specialty Start Date End Date Faustina Carcamo MD [address] [place] [address] PCP - General Internal Medicine 04/10/13 Genaro Morales APRN.SEAL MIXING OPERATOR [address] [place] [address] Children Teacher Internal Medicine 07/23/[address] [place] [address] Nutrition 07/27/24 Petra Beckman APRN.TECHNICAL INTERN [address] [place] [address] Children Teacher Internal Medicine 11/06/24 Autocad Detailer Relationship Specialty Start Date End Date Faustina Carcamo MD [facility] [place] [address] PCP - General Internal Medicine 04/10/13 Genaro Morales APRN.SEAL MIXING OPERATOR [address] [place] [address] Children Teacher Internal Medicine 07/23/[address] [place] [address] Nutrition 07/27/24 Petra Beckman SUPERVISOR FELLING BUCKING.TECHNICAL INTERN [address] [place] [address] [facility] Internal Medicine 11/06/24 Autocad Detailer Relationship Specialty Start Date End Date Faustina Carcamo MD [address] [place], [place] [address]32[address] PCP - General Internal Medicine 04/10/[address] [address] Nutrition 07/27/24 Petra Beckman SUPERVISOR FELLING BUCKING.TECHNICAL INTERN [address] [place] [address] Children Teacher Internal Medicine 11/06/24 Genaro Morales, GENI.SEAL MIXING OPERATOR [address] [place] [address] Children Teacher Internal Medicine 01/02/25 Autocad Detailer Relationship Specialty Start Date End Date Faustina Carcamo MD [address] [place] [address] PCP - General Internal Medicine 04/10/[address] [place], [place] [phone] Nutrition 07/27/24 Petra Beckman APRN.TECHNICAL INTERN [address] [place] [address] Children Teacher Internal Medicine 11/06/24 Genaro Morales, SUPERVISOR FELLING BUCKING.SEAL MIXING OPERATOR [address] [place] [address] [facility] Internal Medicine 01/02/25 Autocad Detailer Relationship Specialty Start Date End Date Faustina Carcamo MD [address] [place] [address] PCP - General Internal Medicine 04/10/13 Genaro Morales APRN.SEAL MIXING OPERATOR [address] [place] [address] Children Teacher Internal Medicine 07/23/24 01/01/[address] [facility] [address] [id number] Nutrition 07/27/24 Petra Beckman APRN.TECHNICAL INTERN [address] [place] [address] Children Teacher Internal Medicine 11/06/24 Genaro Morales, GENI.SEAL MIXING OPERATOR [address] [place] [address] Children Teacher Internal Medicine 01/02/25 Autocad Detailer Relationship Specialty Start Date End Date Faustina Carcamo MD [facility] [place] [address] PCP - General Internal Medicine 04/10/[address] [id number] Nutrition 07/27/24 Petra Beckman APRN.TECHNICAL INTERN [address] [place] [address] Children Teacher Internal Medicine 11/06/24 Genaro Morales, SUPERVISOR FELLING BUCKING.SEAL MIXING OPERATOR [address] [place] [address] Children Teacher Internal Medicine 01/02/25 Autocad Detailer Relationship Specialty Start Date End Date Faustina Carcamo MD [address] [place], [place] [id number] PCP - General Internal Medicine 04/10/[address] [place] [id number] Nutrition 07/27/24 Petra eBckman APRN.TECHNICAL INTERN [address] [place], [place] [id number] [facility] Internal Medicine 11/06/24 Genaro Morales APRN.SEAL MIXING OPERATOR [address] [place], [place] [address] [facility] Internal [facility] 01/02/25 FOR RECORDS PERTAINING TO PATIENTS WHO [...] BE BASED ON THE PRIMARY CLINICAL RECORDS. [facility] [employer] provides no warranty or guarantee of the accuracy or completeness of information in this document.
[2025-02-22 05:29] LABS: Hematocrit 40.9 % (37-47); Hemoglobin 13.9 g/dL (12.0-15.0); Immature Granulocytes Count 0.010 X10^3/uL (0.0-0.0); Mean Corp Hgb Conc 34.0 g/dL (32-36); Mean Corpuscular Volume 91.3 fL (81-99); Mean Platelet Vol. 9.9 fl (6.2-12.0); NRBC Flagged by Analyzer 0 % (0-5); Platelet Count 388 K/mm3 (150-450); RBC Distribution Width CV 12.6 % (11.6-14.6); RBC Distribution Width SD 42.2 fl (35.1-43.9); Red Blood Count 4.48 M/mm3 (4.2-5.4); White Blood Count 6.9 K/mm3 (4.4-11.0)
[2025-02-22 05:29] LABS: Color, Urine Yellow (Yellow); Glucose, Dipstick Normal (Normal); Ketone-Dipstick Negative (Negative); Leukocyte Esterase-Dipstick Negative /ul (Negative); Nitrite-Dipstick Negative (Negative); Occult Blood-Urine Negative /ul (Negative); Protein-Dipstick 15 mg/dl (Negative); Specific Gravity, Urine 1.025 (1.002-1.030); Urine Bilirubin Dipstick Negative (Negative)
[2025-02-22] MEDS: 0.9% Normal Saline (1000mL) 1,000 ML 999 ML IV (05:32)
[2025-02-22] MEDS: Ketorolac 30 MG/ML Syringe IV (05:33)
[2025-02-22 05:41] VITALS: BP 133/88; PULSE 80; RESP 18; TEMP 36.8; O2SAT 98
[2025-02-22 05:53] LABS: AST(SGOT) 35 U/L (<=31); Alanine Aminotransfer ALT/SGPT 47 U/L (<=34); Albumin, Serum 4.2 g/dL (3.5-5.0); Alkaline Phosphatase 66 U/L (35-104); Anion Gap 12 (5-15); BUN 8 mg/dL (4-19); BUN/Creat Ratio 12.9 RATIO (10-20); Bilirubin, Direct 0.31 mg/dL (0.00-0.30); Calcium,Total 9.2 mg/dL (7.6-11.0); Carbon Dioxide 20.0 mmol/L (21.0-32.0); Chloride 106 mmol/L (98-108); Estimated Creatinine Clearance 159.06 ml/min (50-250); Globulin 2.7 g/dL (2.2-4.2); Glucose 89 mg/dL (70-99); Lipase 20 U/L (13-75); Potassium 3.7 mmol/L (3.3-5.1)
[2025-02-22 06:00] VITALS: BP 133/88; PULSE 77; RESP 18; TEMP 36.8; O2SAT 99
[2025-02-22 06:05] LABS: Internal QC Validated? YES +Cl - CLEAR BKGD; Pregnancy, Serum, hCG Quali. NEGATIVE Negative; Record Kit Lot#, Serum Preg. 0000947241
[2025-02-22 06:22] LABS: Mucous, Urine 1+ /hpf (<or=2+)
[2025-02-22 06:38] VITALS: PULSE 85; RESP 18; O2SAT 98
--- NOTE | 2025-02-22 07:04 | EX.ED.DYSGE1 ---
HPI History of Present Illness Chief Complaint: Flank Pain Informant: patient Narrative Narrative: Patient is a 34-year-old female with past medical history of generalized anxiety disorder and OCD. She states she went to bed normally and then awoke with right-sided abdominal/flank pain. She states there was associated nausea and vomiting. She denies any fevers or chills or known sick contact. She states there has been no loose stool or diarrhea. She denies any recent trauma. She denies any hematuria or dysuria. However secondary to the sudden onset of pain she presents for evaluation. [facility] Medical History OCD (obsessive compulsive disorder) Panic disorder Morbid (severe) obesity due to excess calories Panic disorder with agoraphobia and moderate panic attacks DARLIN (generalized anxiety disorder) Periodic fever syndrome POTS (postural orthostatic tachycardia syndrome) Home Medications ?Medication ?Instructions ?Recorded ?Last Taken ?Type atenolol 25 mg tablet (Tenormin) 25 mg DAILY 01/18/16 Unknown History colchicine 0.6 mg capsule 0.6 mg PO DAILY 03/02/19 Unknown History fluoxetine 10 mg capsule 20 mg PO DAILY 03/02/19 Unknown History fluvoxamine 100 mg tablet 200 mg PO DAILY 03/02/19 Unknown History canakinumab (PF) 150 mg/mL subcut 06/07/24 Unknown History subcutaneous solution (Ilaris (PF)) lamotrigine 25 mg tablet 25 mg PO QDAY 42 days #42 tabs 01/21/25 Unknown Rx naratriptan 2.5 mg tablet mg PO 01/21/25 Unknown History ondansetron 4 mg disintegrating 4 mg PO Q8H PRN PRN Nausea #10 tabs 02/24/25 Unknown Rx tablet Allergy/AdvReac Type Severity Reaction Status Date / Time latex Allergy Hives Verified 02/24/25 06:32 topiramate (From Topamax) AdvReac Other Verified 02/24/25 06:32 Family History Other Diabetes Heart disease Lupus Social History Smoking Status: Never smoker alcohol intake: current alcohol intake frequency: holidays/special occasions only substance use type: marijuana ROS ROS ED Constitutional Constitutional ED: Denies chills or fever(s) Eyes Eyes: Denies change in vision ENT ENT ED: Denies sore throat Cardiovascular Cardiovascular: Denies chest pain Respiratory/Chest Respiratory/Chest: Denies cough or dyspnea Gastrointestinal Gastrointestinal: Reports abdominal pain, nausea and vomiting; Denies diarrhea Genitourinary Genitourinary ED: Denies dysuria or hematuria Musculoskeletal Musculoskeletal: Reports back pain Integumentary Denies rash Neurologic Neurologic: Denies headache(s) Psychiatric Psychiatric: Reports anxiety and depression Hematologic/Lymphatic Hematologic/Lymphatic: Denies easy bleeding or easy bruising EXAM Physical Exam Const Vital Signs: 02/22/25 04:39 02/22/25 04:41 02/22/25 05:41 Temperature 98.2 F 98.2 F 98.2 F Temperature Source Oral Oral Oral Pulse Rate 108 H 108 H 80 Respiratory Rate 18 18 18 Blood Pressure 153/113 H 153/113 H 133/88 H Blood Pressure Mean 126 126 103 Pulse Ox 97 96 98 Oxygen Delivery Method Room Air Room Air Room Air 02/22/25 06:00 02/22/25 06:38 Temperature 98.2 F Temperature Source Oral Pulse Rate 77 85 Respiratory Rate 18 18 Blood Pressure 133/88 H Blood Pressure Mean 103 Pulse Ox 99 98 Oxygen Delivery Method Room Air Room Air Positive well nourished, well developed and obese General Appearance ED: well developed; Negative for pallor Nutritional Appearance: obese HEENT Reports moist mucous membranes HEENT Narrative: No tongue or lip swelling no oral lesions no airway edema or compromise No secondary findings in the posterior pharynx to suggest infection Eyes PERRL and EOMs intact bilaterally General Eye ED: Negative for scleral icterus Neck supple Resp normal respiratory effort and clear to auscultation bilaterally Cardio regular rhythm Rate: tachycardic and other Other Details: Slightly tachycardic rate with regular rhythm Radial and carotid pulses are equal and symmetric GI non-distended and no masses GI Narrative: Soft and nondistended with normal active bowel sounds. There is pain palpation along the right side of the abdomen without voluntary guarding or rigidity. No pulsatile mass or fluid wave. No pain over McBurney's point Auscultation: normoactive bowel sounds Palpation: soft Back/Spine Back/Spine Narrative: Mild right CVA tenderness noted Extremity normal to inspection Neuro oriented x3, CN's II-XII intact bilaterally and no sensory deficits noted Sensorium / Orientation: alert Motor Exam: strength 5/5 throughout Psych Mood & Affect: anxious Skin no rashes or lesions noted and no wounds General Skin Exam: Negative for jaundice or pallor MDM MDM MDM Narrative Medical decision making narrative: Patient presented to ER with sudden onset right sided flank/abdominal pain. Differential diagnosis is for viral stomach infection such as norovirus versus rotavirus. Patient also could have UTI versus pyelonephritis versus kidney stone. Secondary to his basic labs were obtained. There is no leukocytosis or left shift going against an infectious process. Lipase is normal going against acute pancreatitis and liver enzymes are are not clinically significantly elevated going against biliary colic. Urine sample does not show any signs of infection going against UTI/pyelonephritis and there is no blood present going against a kidney stone. However due to her sudden onset of pain and location of pain there is concern that there is underlying kidney stone or intestinal pathology so CT scan was added. This also revealed no signs of acute intestinal abdominal pathology. After treatment the patient's vital signs improved and she reported an improvement of her symptoms. Therefore there is no need for further intervention as her abdomen remains soft and nonsurgical and overall workup is negative and she can follow-up as an outpatient. History & Record Review Discussion w/independent historian: Patient Lab Data Attestation: I reviewed the patient's lab results. Labs: Laboratory Results - last 24 hr 02/22/25 02/22/25 02/22/25 04:55 05:02 05:35 WBC 6.9 RBC 4.48 Hgb 13.9 Hct 40.9 MCV 91.3 MCH 31.0 MCHC 34.0 RDW Std Deviation 42.2 RDW Coeff of Derrell 12.6 Plt Count 388 MPV 9.9 Immature Gran % (Auto) 0.100 Neut % (Auto) 49.1 Lymph % (Auto) 40.1 [place] % (Auto) 8.5 Eos % (Auto) 1.5 Baso % (Auto) 0.7 Absolute Neuts (auto) 3.4 Absolute Lymphs (auto) 2.75 Nucleated RBC % 0 Sodium 138 Potassium 3.7 Chloride 106 Carbon Dioxide 20.0 L Anion Gap 12 BUN 8 Creatinine 0.61 L Estim Creat Clear Calc 159.06 Est GFR (MDRD) Non-Af 122 BUN/Creatinine Ratio 12.9 Glucose 89 Lactic Acid 1.1 Calcium 9.2 Total Bilirubin 0.81 Direct Bilirubin 0.31 H AST 35 H ALT 47 H Alkaline Phosphatase 66 Total Protein 6.9 Albumin 4.2 Globulin 2.7 Lipase 20 Serum , Qual NEGATIVE Urine Color Yellow Urine Clarity Clear Urine pH 6.0 Ur Specific [place] 1.025 Urine Protein 15 H Urine Glucose (UA) Normal Urine Ketones Negative Urine Occult Blood Negative Urine Nitrite Negative Urine Bilirubin Negative Urine Urobilinogen Normal Ur Leukocyte Esterase Negative Urine RBC 0 SEEN Urine WBC 0 SEEN Ur Squamous Epith Cells 0 SEEN Urine Bacteria 1+ Urine Mucus 1+ Radiography Diagnostic Testing: Clinical Impression(s) from Imaging Studies Abdomen/Pelvis CT 02/22/25 05:17 IMPRESSION: No acute pelvi-abdominal abnormalities, collections or free air. Reading [facility] Discharge Plan Triage Chief Complaint: Flank Pain ED Provider: Mahesh Cannon Dx/Rx/DC Orders Clinical Impression: Nonspecific abdominal pain, DARLIN (generalized anxiety disorder), OCD (obsessive compulsive disorder) Instructions: Abdominal Pain Prescriptions: No Action naratriptan 2.5 mg tablet PO lamotrigine 25 mg tablet 25 mg PO QDAY 42 Days Qty: 42 0RF atenolol [Tenormin] 25 MG tablet 25 mg DAILY fluvoxamine 100 MG tablet 200 mg PO DAILY fluoxetine 10 MG capsule 20 mg PO DAILY colchicine 0.6 MG capsule 0.6 mg PO DAILY ondansetron 4 mg tablet,disintegrating 4 mg PO Q8H PRN PRN (Reason: Nausea) Qty: 10 0RF Ilaris (PF) 150 mg/mL solution subcut Primary Care Provider: Katie Fernández Referrals: Katie Fernández MD [Primary Care Provider] - Activity Restrictions/Additional Instructions: Your workup today did not reveal any signs of a kidney stone acute appendicitis or urinary tract infection. If you develop a fever over 100.4 or worsening pain or have any further concerns please return to the ER for repeat evaluation Print Language: [place] Disposition Disposition: Home, Self Care Discharge Date/Time: 02/22/25 07:24
[2025-02-22 07:08] VITALS: BP 138/83; PULSE 73; RESP 16; TEMP 36.1; O2SAT 99
== END 2025-02-22 07:24 | disposition home or self-care (01) ==
PROVIDERS: Emergency Provider Emergency Medicine; PCP Internal Medicine; Visit Provider Emergency Medicine
DX: R10.9 Unspecified abdominal pain (principal)
CPT/HCPCS: 74177; 80048; 80076; 81001; 83605; 83690; 84703; 85025; 96361; 96374; 99282; Q9967; A4216

== ENCOUNTER 2025-02-24 06:31 | Emergency (ER) | payer MEDICAID, SELFPAY ==
[2025-02-24 06:32] VITALS: BP 157/104; PULSE 114; RESP 18; TEMP 36.6; O2SAT 96; BMI 54.3
[2025-02-24 07:00] LABS: Mucous, Urine 0 SEEN /hpf (<or=2+); Red Blood Cells-Urine 0 SEEN /hpf (0-5)
--- NOTE | 2025-02-24 07:06 | EDS_ITS ---
HPI HPI - GI History of Present Illness Chief Complaint: Abd Pain Informant: patient Abdominal Pain/Flank Pain Onset: Days Context: Gradual Onset Timing: Continuous Quality: Aching and Stabbing Location: RUQ and RLQ Worsened by: - (Palpation) Relieved by: - (Bending, heat) Nausea/Vomiting/Emesis GI Symptom: Positive for Nausea; Negative for Vomiting Diarrhea/Melena/Hematochezia GI Symptom: Positive for Diarrhea; Negative for Melena or Hematochezia Associated Symptoms Associated Symptoms: Negative for Dysuria, Frequency or Hematuria Narrative Narrative: Patient presents with abdominal pain that has been getting worse over the past few days. Patient was seen here [address] scan and lab work done at that time. Patient states that she started having a fever yesterday. Patient states it was up to 101. Patient states her pain is stabbing and aching. Patient states it is mainly on the right side of her abdomen. Patient states it is worse with palpation. Patient states it is better with bending over and with heating pad. Patient admits to some nausea but denies any vomiting. Patient admits to some diarrhea but denies any melena or hematochezia. Patient denies any dysuria, frequency, or hematuria. [facility] Medical History OCD (obsessive compulsive disorder) Panic disorder Morbid (severe) obesity due to excess calories Panic disorder with agoraphobia and moderate panic attacks DARLIN (generalized anxiety disorder) Periodic fever syndrome POTS (postural orthostatic tachycardia syndrome) Home Medications ?Medication ?Instructions ?Recorded ?Last Taken ?Type atenolol 25 mg tablet (Tenormin) 25 mg DAILY 01/18/16 Unknown History colchicine 0.6 mg capsule 0.6 mg PO DAILY 03/02/19 Unk nown History fluoxetine 10 mg capsule 20 mg PO DAILY 03/02/19 Unkn own History fluvoxamine 100 mg tablet 200 mg PO DAILY 03/02/19 Unk nown History canakinumab (PF) 150 mg/mL subcut 06/07/24 Unknown His tory subcutaneous solution (Ilaris (PF)) lamotrigine 25 mg tablet 25 mg PO QDAY 42 days #42 ta bs 01/21/25 Unknown Rx naratriptan 2.5 mg tablet mg PO 01/21/25 Unknown Histo ry ondansetron 4 mg disintegrating 4 mg PO Q8H PRN PRN Na usea #10 tabs 02/24/25 Unknown Rx tablet Allergy/AdvReac Type Severity Reaction Status Date / Time latex Allergy Hives Verified 02/24/25 06:32 topiramate (From Topamax) AdvReac Other Verified 02/24/25 06:32 Family History Other Diabetes Heart disease Lupus Social History Smoking Status: Never smoker alcohol intake: current alcohol intake frequency: holidays/special occasions only substance use type: marijuana ROS ROS ED Constitutional Constitutional ED: Reports chills and fever(s) Eyes Eyes: Denies blurry vision or change in vision ENT ENT ED: Denies rhinorrhea or sore throat Cardiovascular Cardiovascular: Denies chest pain or palpitations Respiratory/Chest Respiratory/Chest: Reports cough; Denies dyspnea Gastrointestinal Gastrointestinal: Reports abdominal pain, diarrhea and nausea; Denies melena or vomiting Genitourinary Genitourinary ED: Denies dysuria or hematuria Musculoskeletal Musculoskeletal: Reports back pain; Denies neck pain Integumentary Denies abscess or rash Neurologic Neurologic: Denies headache(s) or weakness Allergic/Immunologic Allergic/Immunologic ED: Denies mouth swelling or urticaria EXAM Physical Exam Const Vital Signs: 02/24/25 06:32 Temperature 97.8 F Temperature Source Oral Pulse Rate 114 H Respiratory Rate 18 Blood Pressure 157/104 H Blood Pressure Mean 121 Pulse Ox 96 Oxygen Delivery Method Room Air Positive well nourished and well developed Constitutional Narrative: BMI is 54.4. General Appearance ED: well developed and NAD HEENT Reports moist mucous membranes Neck supple and no JVD Resp normal respiratory effort and clear to auscultation bilaterally Cardio regular rhythm Rate: tachycardic GI non-distended Palpation: soft and tender RLQ and RUQ; Negative for guarding or rebound tenderness present Extremity full ROM Neuro CN's II-XII intact bilaterally, moves all extremities and no sensory deficits noted Sensorium / Orientation: alert Motor Exam: strength 5/5 throughout Psych mental status grossly normal and thought process normal MDM MDM MDM Narrative Medical decision making narrative: Differential diagnosis includes cholecystitis, cholelithiasis, pancreatitis, gastritis, peptic ulcer disease, duodenal ulcer, urinary tract infection, and pyelonephritis. CBC will be obtained to assess for leukocytosis and anemia. Comprehensive metabolic profile will be obtained to assess for hepatic function, renal function, and electrolyte abnormality. Lipase will be ordered to assess for pancreatitis. Serum hCG will be obtained to assess for . Urinalysis will be obtained to assess for urinary tract infection and hematuria. Patient had CT scan with IV contrast 2 days ago and was normal. I do not feel this needs to be repeated at this time. History & Record Review Additional record(s) reviewed:: Prior ED visit and Prior labs Lab Data Attestation: I reviewed the patient's lab results. Lab results narrative: CBC was reviewed and was within normal limits. Comprehensive metabolic profile was reviewed and was essentially within normal limits. Lipase was reviewed and was normal at 22. Serum hCG was reviewed and was negative. Urinalysis was reviewed. There is no evidence of urinary tract infection or hematuria. Labs: Laboratory Results - last 24 hr 02/24/25 02/24/25 06:45 06:54 WBC 6.9 RBC 4.54 Hgb 14.0 Hct 41.4 MCV 91.2 MCH 30.8 MCHC 33.8 RDW Std Deviation 42.0 RDW Coeff of [place]rell 12.8 Plt Count 377 MPV 9.7 Immature Gran % (Auto) 0.100 Neut % (Auto) 45.8 L Lymph % (Auto) 42.3 H [place] % (Auto) 9.0 Eos % (Auto) 2.2 Baso % (Auto) 0.6 Absolute Neuts (auto) 3.2 Absolute Lymphs (auto) 2.93 Nucleated RBC % 0 Sodium 139 Potassium 4.0 Chloride 107 Carbon Dioxide 21.0 Anion Gap 11 BUN 7 Creatinine 0.60 L Estim Creat Clear Calc 165.37 Est GFR (MDRD) Non-Af 122 BUN/Creatinine Ratio 11.5 Glucose 95 Calcium 8.9 Total Bilirubin 0.38 AST 29 ALT 43 H Alkaline Phosphatase 68 Total Protein 6.8 Albumin 4.1 Globulin 2.7 Albumin/Globulin Ratio 1.5 Lipase 22 Serum , Qual NEGATIVE Urine Color Yellow Urine Clarity Clear Urine pH 7.0 Ur Specific [place] 1.010 Urine Protein 15 H Urine Glucose (UA) Normal Urine Ketones Negative Urine Occult Blood Negative Urine Nitrite Negative Urine Bilirubin Negative Urine Urobilinogen Normal Ur Leukocyte Esterase Negative Urine RBC 0 SEEN Urine WBC 0 SEEN Ur Squamous Epith Cells 0-5 SEEN Urine Bacteria RARE Urine Mucus 0 SEEN Treatment and Re-Evaluation :: Patient was given IV fluids, morphine, and Zofran. Patient was advised that this is most likely a viral illness. Patient was instructed to drink plenty of fluids. Patient was given a prescription for Zofran. Patient was instructed to start with a liquid diet and advance as tolerated. Patient was instructed to follow-up with her primary care physician in 5 to 7 days. Patient was instructed to return if worse in any way. Patient understood and was agreeable with the plan. All questions were answered. Discharge Plan Triage Chief Complaint: Abd Pain ED Provider: Mohit Moura Dx/Rx/DC Orders Clinical Impression: Nonspecific abdominal pain, Nausea, Diarrhea Instructions: ED Abdominal Pain Unkn Cause Fem Prescriptions: New ondansetron 4 mg tablet,disintegrating 4 mg PO Q8H PRN PRN (Reason: Nausea) Qty: 10 0RF No Action naratriptan 2.5 mg tablet PO lamotrigine 25 mg tablet 25 mg PO QDAY 42 Days Qty: 42 0RF atenolol [Tenormin] 25 MG tablet 25 mg DAILY fluvoxamine 100 MG tablet 200 mg PO DAILY fluoxetine 10 MG capsule 20 mg PO DAILY colchicine 0.6 MG capsule 0.6 mg PO DAILY Ilaris (PF) 150 mg/mL solution subcut Primary Care Provider: Katie Fernández Referrals: Katie Fernández MD [Primary Care Provider] - Keep Maribell appointment Print Language: Croatian Disposition Disposition: Home, Self Care
[2025-02-24 07:15] LABS: Hematocrit 41.4 % (37-47); Hemoglobin 14.0 g/dL (12.0-15.0); Immature Granulocytes Count 0.010 X10^3/uL (0.0-0.0); Mean Corp Hgb Conc 33.8 g/dL (32-36); Mean Corpuscular Volume 91.2 fL (81-99); Mean Platelet Vol. 9.7 fl (6.2-12.0); NRBC Flagged by Analyzer 0 % (0-5); Platelet Count 377 K/mm3 (150-450); RBC Distribution Width CV 12.8 % (11.6-14.6); RBC Distribution Width SD 42.0 fl (35.1-43.9); Red Blood Count 4.54 M/mm3 (4.2-5.4); White Blood Count 6.9 K/mm3 (4.4-11.0)
--- OUTSIDE RECORDS SUMMARY | 2025-02-24 07:26 | XMS RPT_ITS | CCD ---
Author Organization [facility] Care Team Providers Care Ballet Dancer Name Role Phone Faustina Carcamo MD Primary [...] Faustina Carcamo MD Primary Care Provider [facility] MEDICAL STAFF SERVICES MANAGER.JOB DEVELOPER FOR DEAF ADULTS, Genaro Unavailable [facility] MEDICAL STAFF SERVICES MANAGER.GRAIN DRIER, Petra Unavailable Crtalic-Lynnette RD Cindy Unavailable CRTALIC-LYNNETTE, CINDY Attending Unavail able TALAMPAS, FAUSTINA D Primary Care Unavailable MORALES, GENARO Referring Unavailable Crtalic-Lynnette RD, Cindy Unavailable [facility] MEDICAL STAFF SERVICES MANAGER.GRAIN DRIER, Petra Unavailable [facility] MEDICAL STAFF SERVICES MANAGER.GRAIN DRIER, Petra Unavailable [facility] MEDICAL STAFF SERVICES MANAGER.GRAIN DRIER, Petra Unavailable Morales MEDICAL STAFF SERVICES MANAGER.JOB DEVELOPER FOR DEAF ADULTS, Genaro Unavailable Morales MEDICAL STAFF SERVICES MANAGER.JOB DEVELOPER FOR DEAF ADULTS, Genaro Unavailable Talampas, Faustina D Primary Care [...] Translations: [LATEX, NATURAL RUBBER] Drug Allergy 3 [facility] Work Phone: (20 sources) Seasonal allergy; Translations: [SEASONAL ALLERGIES] Allergy to substance 1 [facility] (20 sources) Latex; Translations: [LATEX] Propensity to adverse reactions to drug 3 [facility] (20 sources) Banana Extract; Translations: [BANANA] Drug Allergy 3 Anaphylaxis, GI Upset, Itching [facility] (1 source) Latex Drug allergy (disorder) 5 [facility] (1 source) topiramate Drug Allergy 5 [facility] Medications Current Medications Medication Drug Class(es) Dates Sig (Normalized) Sig (Original) [id number] 200 actuat albuterol 0.09 mg/actuat metered dose [...] on above: Take 1 capsule by mo [facility] three times daily as needed for [...] on above: Take 1 capsule by mo [facility] twice daily for 10 days. [id number] 0.3 ml EPINEPHrine 1 mg/ml auto-injector (20 sources) alpha-Adrenergic Agonist, beta-Adrenergic Agonist, Catecholamine Start: End: EPINEPHrine (EPIPEN 2-ISIDRO) 0.3 mg/0.3 mL auto-injector Indications: Toxic effect of latex, accidental (unintentional), subsequent encounter Inject 0.3 mL intramuscularly as needed. For allergic reaction.Seek emergent medical care immediately after use.Disp:1 2-pakw/pet trainer 2 Each 10/26/2024 Active ergocalciferol 1.25 [...] mg by mouth a s needed. levonorgestrel 0.442994 mg/hr intrauterine system (20 sources) Progestin, Progestin-containing [...] days promethazine hydrochloride 25 mg oral tablet (5 sources) Phenothiazine Start: 01-10-20 25 take 25-50 [...] Comment on above: Take 1 capsule by [facility] two times a week. cyclobenzaprine hydrochloride [...] extended release oral tablet (3 sources) Uncompetitive C-hpocoz-B-aspartate Receptor Antagonist, Sigma-1 Agonist Start: 2022 End: 2022 take 1 tablet by mouth twice daily dextromethorphan-guai FENesin (MUCINEX DM) 30-600 mg per tablet Take 1 tablet by mouth twice daily for 7 days. 14 tablet 0 04/18/2023 04/25/2023 Comment on above: Take 1 tablet by [facility] twice daily for 7 days. diphenhydrAMINE [...] Comment on above: Take 1 tablet by [facility] once daily as needed. methylPREDNISolone (9 [...] by mouth once daily. Diagnosis: POTS I49.8 40211 mL 11 04/22/2021 06/03/2022 Discontinued (Discontinued by Patient) Start: 04-22-2021 take 948 mL by mouth once daily Pedialyte (PEDIALYTE) soln Indications: POTS (postural orthostatic tachycardia syndrome) Take 948 mL by mouth once daily. Diagnosis: POTS I49.8 29199 mL 11 04/22/2021 Active Start: 04-22-2021 End: 04-22-2022 take 948 mL by mouth once daily Pedialyte (PEDIALYTE) soln Indications: POTS (postural orthostatic tachycardia syndrome) Take 948 mL by mouth once daily. Diagnosis: POTS I49.8 05713 mL 11 04/22/2021 04/22/2022 Active Start: 03-07-2020 End: 02-09-2021 take 500 mL by mouth once daily Pedialyte (PEDIALYTE) soln Indications: Recurrent fever , Diarrhea due to drug , Inappropriate sinus node tachycardia (HCC) , Neurocirculatory asthenia Take 500 mL by mouth once daily. As directed 31222 mL 11 03/07/2020 02/09/2021 Discontinued Comment on [...] Comment on above: Take 1 capsule by [facility] daily at bedtime. 10 ml sodium [...] 3 Episodic Other aftercare (1 source) Other intermediate designer (current) drug therapy; Translations: [Encounter for long-term [...] Department Summary on 01-27-2025 Emergency Department Summary [facility] Medical Records Department [address] [place] [address] Emergency Department Summary 01/27/25 MR#: [id number] Acct: [id number] Name: LILIAM THOMPSON Rep #: [id number] : 1990 34 From: Braulio Beltrán MD PCP: Dr. Faustina Carcamo MD Status:DEP ER Location: ED HPI History of Present Illness HPI Narrative: 34-year-old female dosaw-pevq-ddslnanj. Was walking her Labrador retriever when the [...] Loss of Funtion Narrative Narrative: 34-year-old female tmzns-pknl-ubmvvgla left small finger injury walking her dog [...] unkempt, cac (more content not included)... Normal [facility] Finger(s) Min 2 Viewson 01-13 Finger(s) Min 2 Views [facility] Imaging Services [address] [place], [place] [address] Finger(s) Min 2 Views MR#: [id number] Acct: [id number] Name: LILIAM THOMPSON Rep #: [id number] : 1990 F 34 From: Luís olmos MD PCP: Dr. Faustina Carcamo MD Status: DEP ER Study: Finger(s) Min 2 Views Date of Exam: 01/27/25 Exam# [id number] Ordering Dr: Braulio Beltrán MD PROCEDURE: FINGER(S) [...] Soft tissue edema and swelling. Reading Location: [place] [address] CC: Dr. Braulio Beltrán MD; Dr. Faustina Carcamo MD Ammonia Nitrate Operator: Signed [facility] MR/BMS.BPon 01-21-2025 MR/BMS.BP [address], [address] [place] [id number] OFFICE VISIT Date of Service: 01/21/25 MR#: [id number] Acct: [id number] Name: LILIAM THOMPSON Rep #: [id number] : 1990 Provider: Dr. Jerry Shaihk se, DO Age/Sex: 34/F Location: [facility] [place] Status: Signed Intake Vital Signs 07/20/24 12:47 [...] type symptoms. Was diagnosed with OCD around 7374-4430. Symptoms had been worsening as of last [...] having done an eating disorder IOP through [facility] last year. Admits to having been treated [...] brother 5 (more content not included)... Normal [facility] CNOVon 01-09-2025 CNOV Normal [facility] CNOVon 12-21-2024 CNOV Normal [facility] STREP A MOLECULAR (POC)on Procedural Control Valid [facility] Strep A (POCT) Negative Negative [facility] BUN SerPl-mCncon 12-18-2024 Urea nitrogen [Mass/Vol] 8 mg/dL Normal 7-21 [facility] Comment on above: Order Comment: Speci men Type: BLOOD SPECIMENOrdering Facility: [facility] Address: [address] [place] [address] Performed By: #### 3 094-0, 25814-6, 48098-7 ####[facility] LABCLIA [id number] [place] [address] [place]#### 1986-5 ####[facility] LABCLIA [id number] [place] [address] [place] CBC W Auto Differential pane l (Bld)on 12-18-2024 Basophils (Bld) [#/Vol] 0.03 10*3/uL Normal <0.11 [facility] Comment on above: Order Comment: Speci men Type: BLOOD SPECIMENOrdering Facility: [facility] Address: [address] [place] [address] Performed By: #### 5 7021-8, 4537-7 ####[facility] LABCLIA [id number] [place] [address] [place] Basophils/100 WBC (Bld) 0.5 % Normal [facility] Comment on above: Order Comment: Speci men Type: BLOOD SPECIMENOrdering Facility: [facility] Address: [address] [place] [address] Performed By: #### 5 7021-8, 4537-7 ####[facility] LABCLIA [id number] [place] [id number] [place] Differential cell count method Nom (Bld) Auto Normal [facility] Comment on above: Order Comment: Speci men Type: BLOOD SPECIMENOrdering Facility: [facility] Address: [address] [place] [address] Performed By: #### 5 7021-8, 4536-7 ####[facility] LABCLIA [id number] [place] [address] [place] Eosinophils (Bld) [#/Vol] 0.11 10*3/uL Normal <0.46 [facility] Comment on above: Order Comment: Speci men Type: BLOOD SPECIMENOrdering Facility: [facility] Address: [address] [place] [address] Performed By: #### 5 7021-8, 4536-7 ####[facility] LABCLIA [id number] [place] [address] [place] Eosinophils/100 WBC (Bld) 1.8 % Normal [facility] Comment on above: Order Comment: Speci men Type: BLOOD SPECIMENOrdering Facility: [facility] Address: [address] [place] [address] Performed By: #### 5 7021-8, 7 ####[facility] LABIA [id number] [place] [address] [place] Erythrocyte distribution width (RBC) [Ratio] 12.9 % Normal 11.5-15.0 [facility] Comment on above: Order Comment: Speci men Type: BLOOD SPECIMENOrdering Facility: [facility] Address: [address] [place] [address] Performed By: #### 5 7021-8, 7 ####[facility] LABCLIA [id number] [place] [address] [place] Hematocrit (Bld) [Volume fraction] 40.6 % Normal 36.0-46.0 [facility] Comment on above: Order Comment: Speci men Type: BLOOD SPECIMENOrdering Facility: [facility] Address: [address] [place] [address] Performed By: #### 5 7021-8, 4536-7 ####[facility] LABCLIA [id number] [place] [address] [place] Hemoglobin (Bld) [Mass/Vol] 13.3 g/dL Normal 11.5-15.5 [facility] Comment on above: Order Comment: Speci men Type: BLOOD SPECIMENOrdering Facility: [facility] Address: [address] [place] [address] Performed By: #### 5 7021-8, 4537-7 ####[facility] LABCLIA [id number] [place] [address] [place] Immature granulocytes (Bld) [#/Vol] 10*3/uL Normal <0.10 [facility] Comment on above: Order Comment: Speci men Type: BLOOD SPECIMENOrdering Facility: [facility] Address: [address] [place] [address] Performed By: #### 5 7021-8, 4537-7 ####[facility] LABIA [id number] [place] [address] [place] Immature granulocytes/100 WBC (Bld) 0.3 % Normal [facility] Comment on above: Order Comment: Speci men Type: BLOOD SPECIMENOrdering Facility: [facility] Address: [address] [place] [address] Performed By: #### 5 7021-8, 7-7 ####[facility] LABIA [id number] [place] [address] [place] Lymphocytes (Bld) [#/Vol] 2.19 10*3/uL Normal 1.00-4.00 [facility] Comment on above: Order Comment: Speci men Type: BLOOD SPECIMENOrdering Facility: [facility] Address: [address] [place] [address] Performed By: #### 5 7021-8, 4537-7 ####[facility] LABCLIA [id number] [address] [id number] [address] [place] Lymphocytes/100 WBC (Bld) 36.8 % Normal [facility] Comment on above: Order Comment: Speci men Type: BLOOD SPECIMENOrdering Facility: [facility] Address: [address] [place] [address] Performed By: #### 5 7021-8, 4536-7 ####[facility] LABCLIA [id number] [place] [address] [place] MCH (RBC) [Entitic mass] 30.0 pg Normal 26.0-34.0 [facility] Comment on above: Order Comment: Speci men Type: BLOOD SPECIMENOrdering Facility: [facility] Address: [address] [place] [address] Performed By: #### 5 7021-8, 4536-7 ####[facility] LABCLIA [id number] [place] [address] [place] MCHC (RBC) [Mass/Vol] 32.8 g/dL Normal 30.5-36.0 [facility] Comment on above: Order Comment: Speci men Type: BLOOD SPECIMENOrdering Facility: [facility] Address: [address] [place] [address] Performed By: #### 5 7021-8, 4536-7 ####[facility] LABCLIA [id number] [place] [address] [place] MCV (RBC) [Entitic vol] 91.6 fL Normal 80.0-100.0 [facility] Comment on above: Order Comment: Speci men Type: BLOOD SPECIMENOrdering Facility: [facility] Address: [address] [place] [address] Performed By: #### 5 7021-8, 7 ####[facility] LABCLIA [id number] [place] [address] [place] Monocytes (Bld) [#/Vol] 0.53 10*3/uL Normal <0.87 [facility] Comment on above: Order Comment: Speci men Type: BLOOD SPECIMENOrdering Facility: [facility] Address: [address] [place] [address] Performed By: #### 5 7021-8, 4536-7 ####[facility] LABCLIA [id number] [facility] [address] [place] [address] [place] Monocytes/100 WBC (Bld) 8.9 % Normal [facility] Comment on above: Order Comment: Speci men Type: BLOOD SPECIMENOrdering Facility: [facility] Address: [address] [place] [address] Performed By: #### 5 7021-8, 7 ####[facility] LABCLIA [id number] [place] [address] [place] Neutrophils (Bld) [#/Vol] 3.07 10*3/uL Normal 1.45-7.50 [facility] Comment on above: Order Comment: Speci men Type: BLOOD SPECIMENOrdering Facility: [facility] Address: [address] [place] [address] Performed By: #### 5 7021-8, 7 ####[facility] LABCLIA [id number] [place] [address] [place] Neutrophils/100 WBC (Bld) 51.7 % Normal [facility] Comment on above: Order Comment: Speci men Type: BLOOD SPECIMENOrdering Facility: [facility] Address: [address] [place] [address] Performed By: #### 5 7021-8, 4536-7 ####[facility] LABCLIA [id number] [facility] [place] [id number] [place] Nucleated RBC (Bld) [#/Vol] 10*3/uL Normal <0.01 [facility] Comment on above: Order Comment: Speci men Type: BLOOD SPECIMENOrdering Facility: [facility] Address: [address] [place] [address] Performed By: #### 5 7021-8, 7-7 ####[facility] LABIA [id number] [place] [address] [place] Nucleated RBC/100 WBC (Bld) [Ratio] 0.0 /100 WBC Normal [facility] Comment on above: Order Comment: Speci men Type: BLOOD SPECIMENOrdering Facility: [facility] Address: [address] [place] [address] Performed By: #### 5 7021-8, 4536-7 ####[facility] LABIA [id number] [place] [address] [place] Platelet mean volume (Bld) [Entitic vol] 10.0 fL Normal 9.0-12.7 [facility] Comment on above: Order Comment: Speci men Type: BLOOD SPECIMENOrdering Facility: [facility] Address: [address] [place] [address] Performed By: #### 5 7021-8, 4536-7 ####[facility] LABIA [id number] [place] [address] [place] Platelets (Bld) [#/Vol] 354 10*3/uL Normal 150-400 [facility] Comment on above: Order Comment: Speci men Type: BLOOD SPECIMENOrdering Facility: [facility] Address: [address] [place] [address] Performed By: #### 5 7021-8, 4536-7 ####[facility] LABIA [id number] [place] [id number] [place] RBC (Bld) [#/Vol] 4.43 10*6/uL Normal 3.90-5.20 [facility] Comment on above: Order Comment: Speci men Type: BLOOD SPECIMENOrdering Facility: [facility] Address: [address] [place] [address] Performed By: #### 5 7021-8, 4536-7 ####[facility] LABCLIA [id number] [place] [address] [place] WBC (Bld) [#/Vol] 5.95 10*3/uL Normal 3.70-11.00 [facility] Comment on above: Order Comment: Speci men Type: BLOOD SPECIMENOrdering Facility: [facility] Address: [address] [place] [address] Performed By: #### 5 7021-8, 4537-7 ####[facility] LABCLIA [id number] [place] [address] [place] CNOVon 12-18-2024 CNOV Normal [facility] CNPNon 12-18-2024 CNPN Normal [facility] CRP SerPl-mCncon 12-18-2024 CRP [Mass/Vol] mg/L Normal <0.9 [facility] Comment on above: Order Comment: Speci men Type: BLOOD SPECIMENOrdering Facility: [facility] Address: [address] [place] [address] Performed By: #### 3 094-0, 56363-1, 89027-9 ####[facility] LABCLIA [id number] [place] [address] [place]#### 1986-5 ####[facility] LABCLIA [id number] [place] [address] [place] Creatinine + eGFR Pnl SerPlB ldon 12-18-2024 Creatinine and Glomerular filtration rate.predicted panel (S/P/Bld) 126 mL/min/1.73m??? Normal >=60 [facility] Comment on above: Order Comment: Speci men Type: BLOOD SPECIMENOrdering Facility: [facility] Address: [address] [place] [address] Result Comment: Imelda mated Glomerular Filtration Rate [...] actual GFR. Performed By: #### 3 094-0, 64212-1, 24871-1 ####[facility] LABCLIA [id number] [address] OF [place]#### 1985-12 ####[facility] LABCLIA [id number] [address] OF [facility] Creatinine and Glomerular fi ltration rate.predicted panel (S/P/Bld)on 12-18-2024 Creatinine [Mass/Vol] 0.53 mg/dL Low 0.58 - 0.96 mg/dL [facility] GFR/1.73 sq M.predicted among non-blacks MDRD (S/P/Bld) [Vol rate/Area] 126 mL/min/{1.73_m2} - PINF [facility] Comment on above: Estimated Glomerular Filtration Rate [...] Interpretation and review of laboratory results Abnormal [facility] Creatinine [Mass/Vol] 0.53 mg/dL Low 0.58-0.96 [facility] Comment on above: Order Comment: Speci men Type: BLOOD SPECIMENOrdering Facility: [facility] Address: [address] [place] [address] Performed By: #### 3 094-0, 03949-6, 75174-0 ####[facility] LABCLIA [id number] [address]#### 1985-12 ####[facility] LABCLIA [id number] [address] [place] ESR Westergren method (Bld) [Velocity]on 12-18-2024 ESR (Bld) [Velocity] 2 mm/h Normal 0-20 [facility] Comment on above: Order Comment: Speci men Type: BLOOD SPECIMENOrdering Facility: [facility] Address: [address] [place] [address] Performed By: #### 5 7021-8, 4537-7 ####[facility] LABCLIA [id number] [place] [address] [place] Hepatic function 2000 panelo n 12-18-2024 Albumin [Mass/Vol] 4.1 g/dL 3.9 - 4.9 g/dL [facility] ALP [Catalytic activity/Vol] 52 U/L 34 - 123 U/L [facility] ALT [Catalytic activity/Vol] 32 U/L 7 - 38 U/L [facility] AST [Catalytic activity/Vol] 22 U/L 13 - 35 U/L [facility] Bilirubin [Mass/Vol] 0.6 mg/dL 0.2 - 1.3 mg/dL [facility] Bilirubin.conjugated [Mass/Vol] 0.1 mg/dL NINF - 0.3 mg/dL [facility] Protein [Mass/Vol] 6.4 g/dL 6.3 - 8.0 g/dL [facility] Albumin [Mass/Vol] 4.1 g/dL Normal 3.9-4.9 [facility] Comment on above: Order Comment: Speci men Type: BLOOD SPECIMENOrdering Facility: [facility] Address: [address] [place] [address] Performed By: #### 3 094-0, 78845-1, 02610-7 ####[facility] LABCLIA [id number] [place] [address] [place]#### 1986-5 ####[facility] LABCLIA [id number] [place] [id number] [place] ALP [Catalytic activity/Vol] 52 U/L Normal 34-123 [facility] Comment on above: Order Comment: Speci men Type: BLOOD SPECIMENOrdering Facility: [facility] Address: [address] [place] [address] Performed By: #### 3 094-0, 39585-1, ####[facility] LABCLIA [id number] [place] [address] [place]#### 1985-12 ####[facility] LABCLIA [id number] [place] [address] [place] ALT [Catalytic activity/Vol] 32 U/L Normal 7-38 [facility] Comment on above: Order Comment: Speci men Type: BLOOD SPECIMENOrdering Facility: [facility] Address: [address] [place] [address] Performed By: #### 3 094-0, 30484-9, ####[facility] LABCLIA [id number] [place] [address] [place]#### 1985-12 ####[facility] LABCLIA [id number] [place] [address] [place] AST [Catalytic activity/Vol] 22 U/L Normal 13-35 [facility] Comment on above: Order Comment: Speci men Type: BLOOD SPECIMENOrdering Facility: [facility] Address: [address] [place] [address] Performed By: #### 3 094-0, , ####[facility] LABCLIA [id number] [place] [address] [place]#### 1985-12 ####[facility] LABCLIA [id number] [place] [id number] [place] Bilirubin [Mass/Vol] 0.6 mg/dL Normal 0.2-1.3 [facility] Comment on above: Order Comment: Speci men Type: BLOOD SPECIMENOrdering Facility: [facility] Address: [address] [place] [address] Performed By: #### 3 094-0, 41750-8, ####[facility] LABCLIA [id number] [place] [address] [facility] [place]#### 1987-12 ####[facility] LABCLIA [id number] [employer] [address] [address] [place] Bilirubin.conjugated [Mass/Vol] 0.1 mg/dL Normal <0.3 [facility] Comment on above: Order Comment: Speci men Type: BLOOD SPECIMENOrdering Facility: [facility] Address: [address] [place] [address] Performed By: #### 3 094-0, 98687-9, ####[facility] LABCLIA [id number] [address] [place]#### 1985-12 ####[facility] LABCLIA [id number] [address], [place] [address] [place] Protein [Mass/Vol] 6.4 g/dL Normal 6.3-8.0 [facility] Comment on above: Order Comment: Speci men Type: BLOOD SPECIMENOrdering Facility: [facility] Address: [address] [place] [address] Performed By: #### 3 094-0, 20691-7, ####[facility] LABCLIA [id number] [place] [address] [place]#### 1987-12 ####[facility] LABCLIA [id number] [address] [place] [address] [place] No Panel Informationon 12-18 Interpretation and review of laboratory results Normal [facility] UREA NITROGENon 12-18-2024 Urea nitrogen [Mass/Vol] 8 mg/dL 7 - 21 mg/dL [facility] BUN SerPl-mCncon 11-23-2024 Urea nitrogen [Mass/Vol] 6 mg/dL Low 7-21 [facility] Comment on above: Order Comment: Speci men Type: BLOOD SPECIMENOrdering Facility: [facility] Address: [address] [place] [address] Performed By: #### 1 988-5, 3094-0, 08345-7, 27843-3 ####[facility] LABCLIA [id number] [place] [address] [place] CBC W Auto Differential pane l (Bld)on 11-23-2024 Basophils (Bld) [#/Vol] 0.06 10*3/uL Normal <0.11 [facility] Comment on above: Order Comment: Speci men Type: BLOOD SPECIMENOrdering Facility: [facility] Address: [address] [place] [address] Performed By: #### 5 7021-8, 4537-7 ####[facility] LABCLIA [id number] [place] [address] [place] Basophils/100 WBC (Bld) 0.9 % Normal [facility] Comment on above: Order Comment: Speci men Type: BLOOD SPECIMENOrdering Facility: [facility] Address: [address] [place] [address] Performed By: #### 5 7021-8, 4536-7 ####[facility] LABCLIA [id number] [place] [address] [place] Differential cell count method Nom (Bld) Auto Normal [facility] Comment on above: Order Comment: Speci men Type: BLOOD SPECIMENOrdering Facility: [facility] Address: [address] [place] [address] Performed By: #### 5 7021-8, 774-7 ####[facility] LABCLIA [id number] [place] [id number] [place] Eosinophils (Bld) [#/Vol] 0.20 10*3/uL Normal <0.46 [facility] Comment on above: Order Comment: Speci men Type: BLOOD SPECIMENOrdering Facility: [facility] Address: [address] [place] [address] Performed By: #### 5 7021-8, 4536-7 ####[facility] LABCLIA [id number] [place] [address] [place] Eosinophils/100 WBC (Bld) 2.9 % Normal [facility] Comment on above: Order Comment: Speci men Type: BLOOD SPECIMENOrdering Facility: [facility] Address: [address] [place] [address] Performed By: #### 5 7021-8, 4536-7 ####[facility] LABIA [id number] [place] [address] [place] Erythrocyte distribution width (RBC) [Ratio] 12.3 % Normal 11.5-15.0 [facility] Comment on above: Order Comment: Speci men Type: BLOOD SPECIMENOrdering Facility: [facility] Address: [address] [place] [address] Performed By: #### 5 7021-8, 4536-7 ####[facility] LABIA [id number] [place] [address] [place] Hematocrit (Bld) [Volume fraction] 41.3 % Normal 36.0-46.0 [facility] Comment on above: Order Comment: Speci men Type: BLOOD SPECIMENOrdering Facility: [facility] Address: [address] [place] [address] Performed By: #### 5 7021-8, 4536-7 ####[facility] LABIA [id number] [place] [id number] [place] Hemoglobin (Bld) [Mass/Vol] 13.5 g/dL Normal 11.5-15.5 [facility] Comment on above: Order Comment: Speci men Type: BLOOD SPECIMENOrdering Facility: [facility] Address: [address] [place] [address] Performed By: #### 5 7021-8, 4536-7 ####[facility] LABCLIA [id number] [employer] [facility] [address] [place] [address] [place] Immature granulocytes (Bld) [#/Vol] 0.04 10*3/uL Normal <0.10 [facility] Comment on above: Order Comment: Speci men Type: BLOOD SPECIMENOrdering Facility: [facility] Address: [address] [place] [address] Performed By: #### 5 7021-8, 7 ####[facility] LABCLIA [id number] [address], [place] [address] [place] Immature granulocytes/100 WBC (Bld) 0.6 % Normal [facility] Comment on above: Order Comment: Speci men Type: BLOOD SPECIMENOrdering Facility: [facility] Address: [address] [place] [address] Performed By: #### 5 7021-8, 4536-7 ####[facility] LABCLIA [id number] [address], [place] [address] [place] Lymphocytes (Bld) [#/Vol] 2.79 10*3/uL Normal 1.00-4.00 [facility] Comment on above: Order Comment: Speci men Type: BLOOD SPECIMENOrdering Facility: [facility] Address: [address] [place] [address] Performed By: #### 5 7021-8, 7 ####[facility] LABCLIA [id number] [facility] [address], [place] [address] [place] Lymphocytes/100 WBC (Bld) 41.0 % Normal [facility] Comment on above: Order Comment: Speci men Type: BLOOD SPECIMENOrdering Facility: [facility] Address: [address] [place] [address] Performed By: #### 5 7021-8, 7-7 ####[facility] LABCLIA [id number] [place] [address] [place] MCH (RBC) [Entitic mass] 30.2 pg Normal 26.0-34.0 [facility] Comment on above: Order Comment: Speci men Type: BLOOD SPECIMENOrdering Facility: [facility] Address: [address] [place] [address] Performed By: #### 5 7021-8, 4537-7 ####[facility] LABCLIA [id number] [place] [address] [place] MCHC (RBC) [Mass/Vol] 32.7 g/dL Normal 30.5-36.0 [facility] Comment on above: Order Comment: Speci men Type: BLOOD SPECIMENOrdering Facility: [facility] Address: [address] [place] [address] Performed By: #### 5 7021-8, 4537-7 ####[facility] LABCLIA [id number] [address] [place] MCV (RBC) [Entitic vol] 92.4 fL Normal 80.0-100.0 [facility] Comment on above: Order Comment: Speci men Type: BLOOD SPECIMENOrdering Facility: [facility] Address: [address] [place] [address] Performed By: #### 5 7021-8, 4537-7 ####[facility] LABCLIA [id number] [place] [address] [place] Monocytes (Bld) [#/Vol] 0.73 10*3/uL Normal <0.87 [facility] Comment on above: Order Comment: Speci men Type: BLOOD SPECIMENOrdering Facility: [facility] Address: [address] [place] [address] Performed By: #### 5 7021-8, 4537-7 ####[facility] LABCLIA [id number] [address] [place] Monocytes/100 WBC (Bld) 10.7 % Normal [facility] Comment on above: Order Comment: Speci men Type: BLOOD SPECIMENOrdering Facility: [facility] Address: [address] [place] [address] Performed By: #### 5 7021-8, 4536-7 ####[facility] LABCLIA [id number] [facility] [address] [address] [place] Neutrophils (Bld) [#/Vol] 2.98 10*3/uL Normal 1.45-7.50 [facility] Comment on above: Order Comment: Speci men Type: BLOOD SPECIMENOrdering Facility: [facility] Address: [address] [place] [address] Performed By: #### 5 7021-8, 7 ####[facility] LABCLIA [id number] [place] [address] [place] Neutrophils/100 WBC (Bld) 43.9 % Normal [facility] Comment on above: Order Comment: Speci men Type: BLOOD SPECIMENOrdering Facility: [facility] Address: [address] [place] [address] Performed By: #### 5 7021-8, 7 ####[facility] LABCLIA [id number] [place] [address] [place] Nucleated RBC (Bld) [#/Vol] 10*3/uL Normal <0.01 [facility] Comment on above: Order Comment: Speci men Type: BLOOD SPECIMENOrdering Facility: [facility] Address: [address] [place] [address] Performed By: #### 5 7021-8, 4536-7 ####[facility] LABCLIA [id number] [facility] [place] [address] [place] Nucleated RBC/100 WBC (Bld) [Ratio] 0.0 /100 WBC Normal [facility] Comment on above: Order Comment: Speci men Type: BLOOD SPECIMENOrdering Facility: [facility] Address: [address] [place] [address] Performed By: #### 5 7021-8, 7-7 ####[facility] LABIA [id number] [place] [id number] [place] Platelet mean volume (Bld) [Entitic vol] 10.2 fL Normal 9.0-12.7 [facility] Comment on above: Order Comment: Speci men Type: BLOOD SPECIMENOrdering Facility: [facility] Address: [address] [place] [address] Performed By: #### 5 7021-8, 4537-7 ####[facility] LABIA [id number] [place] [address] [place] Platelets (Bld) [#/Vol] 425 10*3/uL High 150-400 [facility] Comment on above: Order Comment: Speci men Type: BLOOD SPECIMENOrdering Facility: [facility] Address: [address] [place] [address] Performed By: #### 5 7021-8, 4537-7 ####[facility] LABIA [id number] [place] [address] [place] RBC (Bld) [#/Vol] 4.47 10*6/uL Normal 3.90-5.20 [facility] Comment on above: Order Comment: Speci men Type: BLOOD SPECIMENOrdering Facility: [facility] Address: [address] [place] [address] Performed By: #### 5 7021-8, 7-7 ####[facility] LABIA [id number] [place] [id number] [place] WBC (Bld) [#/Vol] 6.80 10*3/uL Normal 3.70-11.00 [facility] Comment on above: Order Comment: Speci men Type: BLOOD SPECIMENOrdering Facility: [facility] Address: [address] [place] [address] Performed By: #### 5 7021-8, 4537-7 ####[facility] LABCLIA [id number] [place] [id number] [place] CNPNon 11-23-2024 CNPN Normal [facility] CRP SerPl-mCncon 11-23-2024 CRP [Mass/Vol] 2.3 mg/dL High <0.9 [facility] Comment on above: Order Comment: Speci men Type: BLOOD SPECIMENOrdering Facility: [facility] Address: [address] [place] [address] Performed By: #### 1 988-5, 3094-0, 14417-3, 48219-7 ####[facility] [id number] [address] STATES OF [facility] Creatinine + eGFR Pnl SerPlB ldon 11-23-2024 Creatinine and Glomerular filtration rate.predicted panel (S/P/Bld) 128 mL/min/1.73m??? Normal >=60 [facility] Comment on above: Order Comment: Speci men Type: BLOOD SPECIMENOrdering Facility: [facility] Address: [address] [place] [address] Result Comment: Imelda mated Glomerular Filtration Rate [...] GFR. Performed By: #### 1 988-5, 3094-0, 07094-4, 11726-0 ####[facility] LABIA [id number] [place] [id number] [facility] Creatinine and Glomerular fi ltration rate.predicted panel (S/P/Bld)on 11-23-2024 Creatinine [Mass/Vol] 0.50 mg/dL Low 0.58-0.96 [facility] Comment on above: Order Comment: Speci men Type: BLOOD SPECIMENOrdering Facility: [facility] Address: [address] [place] [address] Performed By: #### 1 988-5, 3094-0, 65262-0, 32084-1 ####[facility] LABCLIA [id number] [place] [id number] [place] ESR Westergren method (Bld) [Velocity]on 11-23-2024 ESR (Bld) [Velocity] 29 mm/h High 0-20 [facility] Comment on above: Order Comment: Speci men Type: BLOOD SPECIMENOrdering Facility: [facility] Address: [address] [place] [address] Performed By: #### 5 7021-8, 4537-7 ####[facility] LABIA [id number] [place] [address] [place] Hepatic function 2000 panelo n 11-23-2024 Albumin [Mass/Vol] 3.9 g/dL Normal 3.9-4.9 [facility] Comment on above: Order Comment: Speci men Type: BLOOD SPECIMENOrdering Facility: [facility] Address: [address] [place] [address] Performed By: #### 1 988-5, 3094-0, 78810-6, 06264-1 ####[facility] LABCLIA [id number] [place] [address] [place] ALP [Catalytic activity/Vol] 74 U/L Normal 34-123 [facility] Comment on above: Order Comment: Speci men Type: BLOOD SPECIMENOrdering Facility: [facility] Address: [address] [place] [address] Performed By: #### 1 988-5, 3094-0, 65608-6, 68735-7 ####[facility] LABCLIA [id number] [place] [id number] [place] ALT [Catalytic activity/Vol] 23 U/L Normal 7-38 [facility] Comment on above: Order Comment: Speci men Type: BLOOD SPECIMENOrdering Facility: [facility] Address: [address] [place] [address] Performed By: #### 1 988-5, 3094-0, 05138-9, 57371-3 ####[facility] LABCLIA [id number] [address] [address] [place] AST [Catalytic activity/Vol] 25 U/L Normal 13-35 [facility] Comment on above: Order Comment: Speci men Type: BLOOD SPECIMENOrdering Facility: [facility] Address: [address] [place] [address] Performed By: #### 1 988-5, 3094-0, 48704-5, 65334-9 ####[facility] LABCLIA [id number] [place] [id number] [place] Bilirubin [Mass/Vol] 0.2 mg/dL Normal 0.2-1.3 [facility] Comment on above: Order Comment: Speci men Type: BLOOD SPECIMENOrdering Facility: [facility] Address: [address] [place] [address] Performed By: #### 1 988-5, 3094-0, 52971-8, 16381-2 ####[facility] LABCLIA [id number] [address] [address] [place] Bilirubin.conjugated [Mass/Vol] mg/dL Normal <0.3 [facility] Comment on above: Order Comment: Speci men Type: BLOOD SPECIMENOrdering Facility: [facility] Address: [address] [place] [address] Performed By: #### 1 988-5, 3094-0, 41287-2, 49130-4 ####[facility] LABCLIA [id number] [address] [address] [place] Protein [Mass/Vol] 7.2 g/dL Normal 6.3-8.0 [facility] Comment on above: Order Comment: Speci men Type: BLOOD SPECIMENOrdering Facility: [facility] Address: [address] [place] [address] Performed By: #### 1 988-5, 3094-0, 02087-7, 68941-8 ####[facility] LABCLIA [id number] [place] [address] [place] Heteroph Ab Ser Ql LAon 11-13 Heterophile Ab LA Ql (S) Negative Normal Negative [facility] Comment on above: Order Comment: Speci men Type: BLOOD SPECIMENOrdering Facility: [facility] Address: [address] [place] [address] Result Comment: Infe ctious Mononucleosis rapid test [...] is required. Performed By: #### 5 213-4 ####[facility] LABCLIA [id number] [place] [address] [place] CNOVon 11-22-2024 CNOV Normal [facility] STREP A MOLECULAR (POC)on Procedural Control Valid [facility] Strep A (POCT) Negative Negative [facility] CNOVon 11-19-2024 CNOV Normal [facility] STREP A MOLECULAR (POC)on Procedural Control Valid [facility] Strep A (POCT) Negative Negative [facility] 12 Lead EKGon 11-09-2024 12 Lead EKG [facility] [address] [place] [address] 12 Lead EKG 11/09/24 0238 MR#: [id number] Acct: [id number] Name: LILIAM THOMPSON Rep #: [id number] : 1990 34 From: Oziel Nash MD [...] normal ECG Confirmed by JOVITA PEÑA, OZIEL ([id number]), content editor BLAKE MEJÍA ([id number]) on 11/09/2024 8:26:25 AM Referred By: MEGAN Confirmed By: OZIEL NASH MD 11/09/24825 Date Oziel Nash MD CC: Dr. Faustina Carcamo MD; Dr. Lisandro Rachel DO Signed Normal [facility] Basic Metabolic Profile (BMP )on 11-09-2024 BUN/CRE 8.6 RATIO Low 10-20 [facility] Comment on above: Performed By: #### L 500.2500, L100.0100, L501.4021 ####[facility] [address] [place], [address] Calcium [Mass/Vol] 9.5 mg/dL Normal 7.6-11.0 [facility] Comment on above: Performed By: #### L 500.2500, L100.0100, L501.4021 ####[facility] [address] [place], [address] Chloride [Moles/Vol] 107 mmol/L Normal 98-108 [facility] Comment on above: Performed By: #### L 500.2500, L100.0100, L501.4021 ####[facility] [address] [place], [address] CO2 [Moles/Vol] 16.3 mmol/L Low 21.0-32.0 [facility] Comment on above: Performed By: #### L 500.2500, L100.0100, L501.4021 ####[facility] [address] [place], [address] Creatinine [Mass/Vol] 0.63 mg/dL Low 0.70-1.20 [facility] Comment on above: Performed By: #### L 500.2500, L100.0100, L501.4021 ####[facility] [address] [place], [address] ECRCL 156.44 ml/min Normal 50-250 [facility] Comment on above: Performed By: #### L 500.2500, L100.0100, L501.4021 ####[facility] [address] [place], [address] GAP 18 High 5-15 [facility] Comment on above: Performed By: #### L 500.2500, L100.0100, L501.4021 ####[facility] [address] [place], [address] GFR/1.73 sq M.predicted among non-blacks MDRD (S/P/Bld) [Vol rate/Area] 121 mL/min/{1.73_m2} Normal >60 [facility] Comment on above: Result Comment: mL/m in/1.73m2 CKD-EPI Creatinine Equation (2020) Performed By: #### L 500.2500, L100.0100, L501.4021 ####[facility] [address] [place], [address] Glucose [Mass/Vol] 115 mg/dL High 70-99 [facility] Comment on above: Performed By: #### L 500.2500, L100.0100, L501.4021 ####[facility] [address] [place], [address] Potassium [Moles/Vol] 4.0 mmol/L Normal 3.3-5.1 [facility] Comment on above: Performed By: #### L 500.2500, L100.0100, L501.4021 ####[facility] [address] [place], [address] Sodium [Moles/Vol] 141 mmol/L Normal 133-145 [facility] Comment on above: Performed By: #### L 500.2500, L100.0100, L501.4021 ####[facility] [address] [place], [address] Urea nitrogen [Mass/Vol] 5 mg/dL Normal 4-19 [facility] Comment on above: Performed By: #### L 500.2500, L100.0100, L501.4021 ####[facility] [address] [place], [address] CBC W/Diff, Automatedon 10-14 Absolute Lymph 3.71 X10 3/uL Normal 0.83-4.51 [facility] Comment on above: Performed By: #### L 500.2500, L100.0100, L501.4021 ####[facility] [address] [place], [address] Absolute Neut 3.1 X10 3/uL Normal 2.0-7.7 [facility] Comment on above: Performed By: #### L 500.2500, L100.0100, L501.4021 ####[facility] [address] [place], [address] Basophils/100 WBC (Bld) 0.6 % Normal 0-1 [facility] Comment on above: Performed By: #### L 500.2500, L100.0100, L501.4021 ####[facility] [address] [place], [address] Eosinophils/100 WBC (Bld) 2.2 % Normal 0-5 [facility] Comment on above: Performed By: #### L 500.2500, L100.0100, L501.4021 ####[facility] [address] [place], [address] Erythrocyte distribution width (RBC) [Ratio] 12.1 % Normal 11.6-14.6 [facility] Comment on above: Performed By: #### L 500.2500, L100.0100, L501.4021 ####[facility] [address] [place], [address] Hematocrit (Bld) [Volume fraction] 38.4 % Normal 37-47 [facility] Comment on above: Performed By: #### L 500.2500, L100.0100, L501.4021 ####[facility] [address] [place], [address] Hemoglobin (Bld) [Mass/Vol] 13.3 g/dL Normal 12.0-15.0 [facility] Comment on above: Performed By: #### L 500.2500, L100.0100, L501.4021 ####[facility] [address] [place], [address] IG% 0.100 Normal 0.0-0.9 [facility] Comment on above: Result Comment: IG% - Immature Granulocytes (promyelocytes, myelocytes and metamyelocytes) > 1% indicates that a LEFT SHIFT is Present. Performed By: #### L 500.2500, L100.0100, L501.4021 ####[facility] [address] [place], [address] Lymphocytes/100 WBC (Bld) 48.0 % High 19-41 [facility] Comment on above: Performed By: #### L 500.2500, L100.0100, L501.4021 ####[facility] [address] [place], [address] MCH (RBC) [Entitic mass] 30.6 pg Normal 27.0-32.0 [facility] Comment on above: Performed By: #### L 500.2500, L100.0100, L501.4021 ####[facility] [address] [place], [address] MCHC (RBC) [Mass/Vol] 34.6 g/dL Normal 32-36 [facility] Comment on above: Performed By: #### L 500.2500, L100.0100, L501.4021 ####[facility] [address] [place], [address] MCV (RBC) [Entitic vol] 88.5 fL Normal 81-99 [facility] Comment on above: Performed By: #### L 500.2500, L100.0100, L501.4021 ####[facility] [address] [place], [address] Monocytes/100 WBC (Bld) 8.7 % Normal 0-10 [facility] Comment on above: Performed By: #### L 500.2500, L100.0100, L501.4021 ####[facility] [address] [place], [address] Neutrophils/100 WBC (Bld) 40.4 % Low 47-70 [facility] Comment on above: Performed By: #### L 500.2500, L100.0100, L501.4021 ####[facility] [address] [place], [address] Nucleated RBC (Bld) [#/Vol] 0 10*3/uL Normal 0-5 [facility] Comment on above: Performed By: #### L 500.2500, L100.0100, L501.4021 ####[facility] [address] [place], [address] Platelet mean volume (Bld) [Entitic vol] 9.5 fL Normal 6.2-12.0 [facility] Comment on above: Performed By: #### L 500.2500, L100.0100, L501.4021 ####[facility] [address] [place], [address] Platelets (Bld) [#/Vol] 443 10*3/uL Normal 150-450 [facility] Comment on above: Performed By: #### L 500.2500, L100.0100, L501.4021 ####[facility] [address] [place], [address] RBC (Bld) [#/Vol] 4.34 10*6/uL Normal 4.2-5.4 [facility] Comment on above: Performed By: #### L 500.2500, L100.0100, L501.4021 ####[facility] [address] [place], [address] RDW SD 38.7 fl Normal 35.1-43.9 [facility] Comment on above: Performed By: #### L 500.2500, L100.0100, L501.4021 ####[facility] [address] [place], [address] WBC (Bld) [#/Vol] 7.7 10*3/uL Normal 4.4-11.0 [facility] Comment on above: Performed By: #### L 500.2500, L100.0100, L501.4021 ####[facility] [address] [place], [address] Chest PA and Lateralon 11-09 Chest PA and Lateral [facility] Imaging Services [address] [place] [address] Chest PA and Lateral MR#: [id number] Acct: [id number] Name: LILIAM THOMPSON Rep #: [id number] : 1990 F 34 From: Guillaume Parker MD PCP: Dr. Faustina Carcamo MD Status: [facility] ER Study: Chest PA and Lateral Date of Exam: 11/09/24 Exam# [id number] Ordering Dr: Lisandro Rachel DO PROCEDURE: CHEST [...] No evidence of acute disease. Reading Location: [facility] CC: Dr. Faustina Carcamo MD; Dr. Lisandro Rachel DO Ammonia Nitrate Operator: Signed Normal [facility] Emergency Department Summary on 11-09-2024 Emergency Department Summary [facility] Medical Records Department [address] [place] [address] Emergency Department Summary 11/09/24 MR#: [id number] Acct: [id number] Name: LILIAM THOMPSON Rep #: [id number] : 1990 34 From: Lisandro Rachel DO PCP: Dr. Faustina Carcamo MD Status:[facility] ER Location: ED HPI History of Present [...] travel denies any history of blood clots. [facility] Medical History Morbid (severe) obesity due to [...] leep medroxyprogesterone 150 mg/mL 150 mg IM .[id number] 03/02/19 Unkno wn History intramuscular syringe meloxicam [...] following commands knew that she was at [facility] years 2024 Skin: Warm, dry, intact no [...] Pattern Blo (more content not included)... Normal [facility] L499.0042on 11-09-2024 Trop T High Sen < 6 Normal <=14 [facility] Comment on above: Performed By: #### L 499.0042 ####[facility] [address] [place], [address] L499.0043on 11-09-2024 Trop T High Sen Normal <=14 [facility] Comment on above: Result Comment: Canc elled via OM: Order cancelled - Patient discharged Performed By: #### L 499.0043 ####[facility] [address] [place], [address] L501.4021on 11-09-2024 Trop T High Sen < 6 Normal <=14 [facility] Comment on above: Performed By: #### L 500.2500, L100.0100, L501.4021 ####[facility] [address] [place], [address] M100.678on 11-09-2024 M100.678 Pending SARS-CoV-2 (COVID 19) Negative INFLUENZA A Negative INFLUENZA B Negative RSV PCR Negative Normal [facility] Comment on above: Performed By: #### M 100.678 ####[facility] [address] [place], [address] CNOVon 10-31-2024 CNOV Normal [facility] CNPNon 10-29-2024 CNPN Normal [facility] CNOVon 10-24-2024 CNOV Normal [facility] XR WRIST 3V PA/LAT/OBL LTon 10-24-2024 XR WRIST 3V PA/LAT/OBL LT Normal [facility] XR Wrist - left PA and Later al and Obliqueon 10-24-2024 IMPRESSION: No radiographic evidence of acute osseous injury Ammonia Nitrate Operator: REUBEN Transcribe Date/Time: Oct 24 2024 12:04P Dictated by : JAMES THURMAN MD This examination was interpreted and the report reviewed and electronically signed by: JAMES THURMAN MD on Oct 24 2024 12:05PM [facility] DIVISION OF RADIOLOGY * * [...] Joint spaces preserved DIVISION OF RADIOLOGY Provider, [facility] Imagin [facility] - 10/24/2024 * * *Final Report* * [...] No radiographic evidence of acute osseous injury Ammonia Nitrate Operator: [facility] Transcribe Date/Time: Oct 24 2024 12:04P Dictated by : JAMES THURMAN MD This examination was interpreted and the report reviewed and electronically signed by: JAMES THURMAN MD on Oct 24 2024 12:05PM EST [facility] Radiology Study observation (narrative) [facility] XR Wrist - left PA and Later al and ObliqueOrdered By: Ccf Provider on 10-24-2024 [facility] METHYLMALONIC ACIDon 025 Methylmalonate [Moles/Vol] 0.31 umol/L [facility] umol/L [facility] Comment on above: This test was develo ped, and its performance characteristics determined by the [facility] Department of Pathology and Laboratory Medicine. It has not been cleared or approved by the FDA. The [facility] Department of Pathology and Laboratory Medicine is regulated under CLIA as qualified to perform high-complexity testing. This test is used for clinical purposes. It should not be regarded as investigational or for research. Methylmalonate [Moles/Vol]on 10-19-2024 Interpretation and review of laboratory results Normal [facility] 25(OH)D3 SerPl-mCncon 2024 25-hydroxyvitamin D3 [Mass/Vol] 17.0 ng/mL Low 31.0-80.0 [facility] Comment on above: Order Comment: Speci men Type: BLOOD SPECIMENOrdering Facility: [facility] Address: [address] [place] [address] Result Comment: Clas sification of 25 [place] Vitamin D status:Deficiency/Insufficiency: < or = 30 ng/ml.Sufficiency/Optimal Levels: 31-80 ng/mLToxicity: > 100 ng/mL.Test performed by chemiluminescent immunoassay. Performed By: #### 1 989-3 ####[facility] LABCLIA [id number] [place] [address] [place] CBC W Auto Differential pane l (Bld)on 10-17-2024 Basophils (Bld) [#/Vol] 0.03 10*3/uL Normal <0.11 [facility] Comment on above: Order Comment: Speci men Type: BLOOD SPECIMENOrdering Facility: [facility] Address: [address] [place] [address] Performed By: #### 5 7021-8 ####[facility] [id number] [address] [place]#### 4537-7 ####[facility] LABIA [id number] [address] [place] Basophils/100 WBC (Bld) 0.6 % Normal [facility] Comment on above: Order Comment: Speci men Type: BLOOD SPECIMENOrdering Facility: [facility] Address: [address] [place] [address] Performed By: #### 5 7021-8 ####[facility] LABORATORYCLIA [id number] [place] [address] [place]#### 4537-7 ####[facility] LABIA [id number] [address] [place] Differential cell count method Nom (Bld) Auto Normal [facility] Comment on above: Order Comment: Speci men Type: BLOOD SPECIMENOrdering Facility: [facility] Address: [address] [place] [address] Performed By: #### 5 7021-8 ####[facility] LABORATORYIA [id number] [address] [place]#### 4537-7 ####[facility] LABCLIA [id number] [place] [address] [place] Eosinophils (Bld) [#/Vol] 0.13 10*3/uL Normal <0.46 [facility] Comment on above: Order Comment: Speci men Type: BLOOD SPECIMENOrdering Facility: [facility] Address: [address] [place] [address] Performed By: #### 5 7021-8 ####[facility] LABORATORYCLIA [id number] [address] [place]#### 4537-7 ####[facility] LABCLIA [id number] [place] [address] [place] Eosinophils/100 WBC (Bld) 2.4 % Normal [facility] Comment on above: Order Comment: Speci men Type: BLOOD SPECIMENOrdering Facility: [facility] Address: [address] [place] [address] Performed By: #### 5 7021-8 ####[facility] LABORATORYCLIA [id number] [address] [place]#### 4537-7 ####[facility] LABCLIA [id number] [place] [address] [place] Erythrocyte distribution width (RBC) [Ratio] 12.2 % Normal 11.5-15.0 [facility] Comment on above: Order Comment: Speci men Type: BLOOD SPECIMENOrdering Facility: [facility] Address: [address] [place] [address] Performed By: #### 5 7021-8 ####[facility]ORATORYCLIA [id number] [place] [address] [place]#### 4537-7 ####[facility] LABCLIA [id number] [place] [address] [place] Hematocrit (Bld) [Volume fraction] 43.2 % Normal 36.0-46.0 [facility] Comment on above: Order Comment: Speci men Type: BLOOD SPECIMENOrdering Facility: [facility] Address: [address] [place] [address] Performed By: #### 5 7021-8 ####[facility] LABORATORYCLIA [id number] [place] [address] [place]#### 4537-7 ####[facility] LABCLIA [id number] [place] [address] [place] Hemoglobin (Bld) [Mass/Vol] 14.3 g/dL Normal 11.5-15.5 [facility] Comment on above: Order Comment: Speci men Type: BLOOD SPECIMENOrdering Facility: [facility] Address: [address] [place] [address] Performed By: #### 5 7021-8 ####[facility] LABORATORYCLIA [id number] [place] [address] [place]#### 4537-7 ####[facility] LABCLIA [id number] [place] [address] [place] Immature granulocytes (Bld) [#/Vol] 10*3/uL Normal <0.10 [facility] Comment on above: Order Comment: Speci men Type: BLOOD SPECIMENOrdering Facility: [facility] Address: [address] [place] [address] Performed By: #### 5 7021-8 ####[facility] LABORATORYCLIA [id number] [place] [address] [place]#### 4537-7 ####[facility] LABCLIA [id number] [place] [address] [place] Immature granulocytes/100 WBC (Bld) 0.2 % Normal [facility] Comment on above: Order Comment: Speci men Type: BLOOD SPECIMENOrdering Facility: [facility] Address: [address] [place] [address] Performed By: #### 5 7021-8 ####[facility] LABORATORYCLIA [id number] [place] [address] [place]#### 4537-7 ####[facility] LABCLIA [id number] [place] [address] [place] Lymphocytes (Bld) [#/Vol] 2.43 10*3/uL Normal 1.00-4.00 [facility] Comment on above: Order Comment: Speci men Type: BLOOD SPECIMENOrdering Facility: [facility] Address: [address] [place] [address] Performed By: #### 5 7021-8 ####[facility] LABORATORYCLIA [id number] [address] [place]#### 4537-7 ####[facility] LABCLIA [id number] [address] [place] Lymphocytes/100 WBC (Bld) 44.8 % Normal [facility] Comment on above: Order Comment: Speci men Type: BLOOD SPECIMENOrdering Facility: [facility] Address: [address] [place] [address] Performed By: #### 5 7021-8 ####[facility] LABORATORYCLIA [id number] [address] [place]#### 4537-7 ####[facility] LABCLIA [id number] [place] [address] [place] MCH (RBC) [Entitic mass] 30.7 pg Normal 26.0-34.0 [facility] Comment on above: Order Comment: Speci men Type: BLOOD SPECIMENOrdering Facility: [facility] Address: [address] [place] [address] Performed By: #### 5 7021-8 ####[facility] LABORATORYCLIA [id number] [address] [place]#### 4537-7 ####[facility] LABCLIA [id number] [place] [address] [place] MCHC (RBC) [Mass/Vol] 33.1 g/dL Normal 30.5-36.0 [facility] Comment on above: Order Comment: Speci men Type: BLOOD SPECIMENOrdering Facility: [facility] Address: [address] [place] [address] Performed By: #### 5 7021-8 ####[facility] LABORATORYCLIA [id number] [address] [place]#### 4537-7 ####[facility] LABCLIA [id number] [place] [address] [place] MCV (RBC) [Entitic vol] 92.7 fL Normal 80.0-100.0 [facility] Comment on above: Order Comment: Speci men Type: BLOOD SPECIMENOrdering Facility: [facility] Address: [address] [place] [address] Performed By: #### 5 7021-8 ####[facility] LABORATORYCLIA [id number] [address] [place]#### 4537-7 ####[facility] LABCLIA [id number] [place] [address] [place] Monocytes (Bld) [#/Vol] 0.52 10*3/uL Normal <0.87 [facility] Comment on above: Order Comment: Speci men Type: BLOOD SPECIMENOrdering Facility: [facility] Address: [address] [place] [address] Performed By: #### 5 7021-8 ####[facility] LABORATORYCLIA [id number] [address] [place]#### 4537-7 ####[facility] LABCLIA [id number] [place] [address] [place] Monocytes/100 WBC (Bld) 9.6 % Normal [facility] Comment on above: Order Comment: Speci men Type: BLOOD SPECIMENOrdering Facility: [facility] Address: [address] [place] [address] Performed By: #### 5 7021-8 ####[facility] LABORATORYCLIA [id number] [place] [address] [place]#### 4537-7 ####[facility] LABCLIA [id number] [place] [address] [place] Neutrophils (Bld) [#/Vol] 2.31 10*3/uL Normal 1.45-7.50 [facility] Comment on above: Order Comment: Speci men Type: BLOOD SPECIMENOrdering Facility: [facility] Address: [address] [place] [address] Performed By: #### 5 7021-8 ####[facility] LABORATORYCLIA [id number] [place] [address] [place]#### 4537-7 ####[facility] LABCLIA [id number] [place] [address] [place] Neutrophils/100 WBC (Bld) 42.4 % Normal [facility] Comment on above: Order Comment: Speci men Type: BLOOD SPECIMENOrdering Facility: [facility] Address: [address] [place] [address] Performed By: #### 5 7021-8 ####[facility] LABORATORYCLIA [id number] [place] [address] [place]#### 4537-7 ####[facility] LABCLIA [id number] [place] [address] [place] Nucleated RBC (Bld) [#/Vol] 10*3/uL Normal <0.01 [facility] Comment on above: Order Comment: Speci men Type: BLOOD SPECIMENOrdering Facility: [facility] Address: [address] [place] [address] Performed By: #### 5 7021-8 ####[facility] LABORATORYCLIA [id number] [place] [address] [place]#### 4537-7 ####[facility] LABCLIA [id number] [place] [address] [place] Nucleated RBC/100 WBC (Bld) [Ratio] 0.0 /100 WBC Normal [facility] Comment on above: Order Comment: Speci men Type: BLOOD SPECIMENOrdering Facility: [facility] Address: [address] [place] [address] Performed By: #### 5 7021-8 ####[facility] LABORATORYCLIA [id number] [place] [address] [place]#### 4537-7 ####[facility] LABCLIA [id number] [place] [address] [place] Platelet mean volume (Bld) [Entitic vol] 10.0 fL Normal 9.0-12.7 [facility] Comment on above: Order Comment: Speci men Type: BLOOD SPECIMENOrdering Facility: [facility] Address: [address] [place] [address] Performed By: #### 5 7021-8 ####[facility] LABORATORYCLIA [id number] [address] [place]#### 4537-7 ####[facility] LABCLIA [id number] [place] [address] [place] Platelets (Bld) [#/Vol] 423 10*3/uL High 150-400 [facility] Comment on above: Order Comment: Speci men Type: BLOOD SPECIMENOrdering Facility: [facility] Address: [address] [place] [address] Performed By: #### 5 7021-8 ####[facility] LABORATORYCLIA [id number] [address] [place]#### 4537-7 ####[facility] LABCLIA [id number] [address] [address] [place] RBC (Bld) [#/Vol] 4.66 10*6/uL Normal 3.90-5.20 [facility] Comment on above: Order Comment: Speci men Type: BLOOD SPECIMENOrdering Facility: [facility] Address: [address] [place] [address] Performed By: #### 5 7021-8 ####[facility] LABORATORYCLIA [id number] [place] [address] [place]#### 4537-7 ####[facility] LABCLIA [id number] [place] [address] [place] WBC (Bld) [#/Vol] 5.43 10*3/uL Normal 3.70-11.00 [facility] Comment on above: Order Comment: Speci men Type: BLOOD SPECIMENOrdering Facility: [facility] Address: [address] [place] [address] Performed By: #### 5 7021-8 ####[facility] LABORATORYCLIA [id number] [place] [address] [place]#### 4537-7 ####[facility] LABCLIA [id number] [place] [address] [place] CRP SerPl-mCncon 10-17-2024 CRP [Mass/Vol] mg/L Normal <0.9 [facility] Comment on above: Order Comment: Speci men Type: BLOOD SPECIMENOrdering Facility: [facility] Address: [address] [place] [address] Performed By: #### 1 988-5, 2132-9 ####[facility] LABORATORYCLIA [id number] [place] [address] [place] Cobalamin (Vitamin B12) [Mas s/Vol]on 10-17-2024 Interpretation and review of laboratory results Normal [facility] Comprehensive metabolic 2000 panelon 10-17-2024 Albumin [Mass/Vol] 4.2 g/dL 3.9 - 4.9 g/dL Cl [facility] ALP [Catalytic activity/Vol] 73 U/L 34 - 123 U/L [facility] ALT With P-5'-P [Catalytic activity/Vol] 32 U/L 7 - 38 U/L [facility] Anion gap [Moles/Vol] 15 mmol/L 8 - 15 mmol/L [facility] AST With P-5'-P [Catalytic activity/Vol] 32 U/L 13 - 35 U/L [facility] Bilirubin [Mass/Vol] 0.3 mg/dL 0.2 - 1.3 mg/dL [facility] Calcium [Mass/Vol] 9.1 mg/dL 8.5 - 10. 2 mg/dL [facility] Chloride [Moles/Vol] 108 mmol/L High 98 - 107 mmol/L [facility] CO2 [Moles/Vol] 21 mmol/L Low 22 - 30 mmol/L [facility] Creatinine [Mass/Vol] 0.58 mg/dL 0.58 - 0.96 mg/dL [facility] GFR/1.73 sq M.predicted among non-blacks MDRD (S/P/Bld) [Vol rate/Area] 123 mL/min/{1.73_m2} - PINF [facility] Comment on above: Estimated Glomerular Filtration Rate [...] 107 mg/dL High 74 - 99 mg/dL [facility] Comment on above: The [place] Diab[employer] s Association (ADA) provides guidance for [...] Standards of Medical Care in Diabetes 2016, [place] [employer]. Diabetes Care. 2016.39(Suppl 1). Interpretation and review of laboratory results Abnormal [facility] Potassium [Moles/Vol] 4.4 mmol/L 3.7 - 5.1 mmol/L [facility] Protein [Mass/Vol] 6.9 g/dL 6.3 - 8.0 g/dL [facility] Sodium [Moles/Vol] 144 mmol/L 136 - 144 mmol/L [facility] Urea nitrogen [Mass/Vol] 7 mg/dL 7 - 21 mg/dL [facility] Albumin [Mass/Vol] 4.2 g/dL Normal 3.9-4.9 [facility] Comment on above: Order Comment: Krystyna armstrong Type: BLOOD SPECIMENOrdering Facility: [facility] Address: [address] [place] [address] Performed By: #### 3 051-0, 89166-3, 3023-7, 6-3 ####[facility] [id number] [place] [address] [place] ALP [Catalytic activity/Vol] 73 U/L Normal 34-123 [facility] Comment on above: Order Comment: Krystyna armstrong Type: BLOOD SPECIMENOrdering Facility: [facility] Address: [address] [place] [address] Performed By: #### 3 051-0, 00531-8, 3023-7, 6-3 ####[facility]ORATORYCLIA [id number] [place] [address] [place] ALT With P-5'-P [Catalytic activity/Vol] 32 U/L Normal 7-38 [facility] Comment on above: Order Comment: Krystyna armstrong Type: BLOOD SPECIMENOrdering Facility: [facility] Address: [address] [place] [address] Performed By: #### 3 051-0, 99492-5, 3023-7, 6-3 ####[facility] LABORATORYCLIA [id number] [place] [address] [place] Anion gap [Moles/Vol] 15 mmol/L Normal 8-15 [facility] Comment on above: Order Comment: Speci men Type: BLOOD SPECIMENOrdering Facility: [facility] Address: [address] [place] [address] Performed By: #### 3 051-0, 26632-3, 3023-7, 6-3 ####[facility] LABORATORYCLIA [id number] [place] [address] [place] AST With P-5'-P [Catalytic activity/Vol] 32 U/L Normal 13-35 [facility] Comment on above: Order Comment: Speci men Type: BLOOD SPECIMENOrdering Facility: [facility] Address: [address] [place] [address] Performed By: #### 3 051-0, 90786-0, 7, 6-3 ####[facility] LABORATORYCLIA [id number] [place] [address] [place] Bilirubin [Mass/Vol] 0.3 mg/dL Normal 0.2-1.3 [facility] Comment on above: Order Comment: Speci men Type: BLOOD SPECIMENOrdering Facility: [facility] Address: [address] [place] [address] Performed By: #### 3 051-0, 86885-0, 3023-7, 3015-3 ####[facility] LABORATORYCLIA [id number] [place] [address] [place] Calcium [Mass/Vol] 9.1 mg/dL Normal 8.5-10.2 [facility] Comment on above: Order Comment: Speci men Type: BLOOD SPECIMENOrdering Facility: [facility] Address: [address] [place] [address] Performed By: #### 3 051-0, 88254-2, 3023-7, 6-3 ####[facility] LABORATORYCLIA [id number] [place], [place] [address] [place] [address] [place] Chloride [Moles/Vol] 108 mmol/L High 98-107 [facility] Comment on above: Order Comment: Speci men Type: BLOOD SPECIMENOrdering Facility: [facility] Address: [address] [place] [address] Performed By: #### 3 051-0, 90642-1, 3024-7, 3016-3 ####[facility] [id number] [address] STATES OF [facility] CO2 [Moles/Vol] 21 mmol/L Low 22-30 [facility] Comment on above: Order Comment: Speci men Type: BLOOD SPECIMENOrdering Facility: [facility] Address: [address] [place] [address] Performed By: #### 3 051-0, 99392-2, 3024-7, 3016-3 ####[facility] [id number] [address] STATES OF [facility] Creatinine [Mass/Vol] 0.58 mg/dL Normal 0.58-0.96 [facility] Comment on above: Order Comment: Speci men Type: BLOOD SPECIMENOrdering Facility: [facility] Address: [address] [place] [address] Performed By: #### 3 051-0, 63987-8, 3024-7, 3016-3 ####[facility] LABORATORYIA [id number] [address] Creatinine and Glomerular filtration rate.predicted panel (S/P/Bld) 123 mL/min/1.73m??? Normal >=60 [facility] Comment on above: Order Comment: Speci men Type: BLOOD SPECIMENOrdering Facility: [facility] Address: [address] [place] [address] Result Comment: Imelda mated Glomerular Filtration Rate [...] actual GFR. Performed By: #### 3 051-0, 22962-7, 7, 3 ####[facility] LABORATORYCLIA [id number] [place] [address] [place] Glucose [Mass/Vol] 107 mg/dL High 74-99 [facility] Comment on above: Order Comment: Krystyna armstrong Type: BLOOD SPECIMENOrdering Facility: [facility] Address: [address] [place] [address] Result Comment: The [place] Diabetes Association (ADA) provides guidance for cutoff [...] Standards of Medical Care in Diabetes 2016, [place] Diabetes Association. Diabetes Care. 2016.39(Suppl 1). Performed By: #### 3 051-0, 33974-1, 7, 3 ####[facility] LABORATORYCLIA [id number] [place] [address] [place] Potassium [Moles/Vol] 4.4 mmol/L Normal 3.7-5.1 [facility] Comment on above: Order Comment: Krystyna armstrong Type: BLOOD SPECIMENOrdering Facility: [facility] Address: [address] [place] [address] Performed By: #### 3 051-0, 83641-0, 7, 3 ####[facility] LABORATORYCLIA [id number] [place] [address] [place] Protein [Mass/Vol] 6.9 g/dL Normal 6.3-8.0 [facility] Comment on above: Order Comment: Speci men Type: BLOOD SPECIMENOrdering Facility: [facility] Address: [address] [place] [address] Performed By: #### 3 051-0, 29743-4, 3024-7, 6-3 ####[facility] LABORATORYCLIA [id number] [place] [address] [place] Sodium [Moles/Vol] 144 mmol/L Normal 136-144 [facility] Comment on above: Order Comment: Speci men Type: BLOOD SPECIMENOrdering Facility: [facility] Address: [address] [place] [address] Performed By: #### 3 051-0, 94040-8, 7, 3 ####[facility] LABORATORYCLIA [id number] [place] [address] [place] [facility] Urea nitrogen [Mass/Vol] 7 mg/dL Normal 7-21 [facility] Comment on above: Order Comment: Speci men Type: BLOOD SPECIMENOrdering Facility: [facility] Address: [address] [place] [address] Performed By: #### 3 051-0, 43352-4, 7, 3 ####[facility] LABORATORYCLIA [id number] [place] [address] [place] ESR Westergren method (Bld) [Velocity]on 10-17-2024 ESR (Bld) [Velocity] 5 mm/h Normal 0-20 [facility] Comment on above: Order Comment: Speci men Type: BLOOD SPECIMENOrdering Facility: [facility] Address: [address] [place] [address] Performed By: #### 5 7021-8 ####[facility] LABORATORYCLIA [id number] [place] [address] [place]#### 4537-7 ####[facility] LABCLIA [id number] [facility] [id number] [place] [address] [place] Free T3 [Mass/Vol]on 025 Interpretation and review of laboratory results Normal [facility] Methylmalonate SerPl-sCncon 10-17-2024 Methylmalonate [Moles/Vol] 0.31 umol/L Normal <=0.40 [facility] Comment on above: Order Comment: Krystyna armstrong Type: BLOOD SPECIMENOrdering Facility: [facility] Address: [address] [place] [address] Result Comment: This test was developed, and its performance characteristics determined by the [facility] Department of Pathology and Laboratory Medicine. It has not been cleared or approved by the FDA. The [facility] Department of Pathology and Laboratory Medicine is regulated under CLIA as qualified to perform high-complexity testing. This test is used for clinical purposes. It should not be regarded as investigational or for research. Performed By: #### 1 3964-2 ####[facility] LABCLIA [id number] [place] [address] [place] No Panel Informationon 10-17 Interpretation and review of laboratory results Normal [facility] T3, FREEon 10-17-2024 Free T3 [Mass/Vol] 3.7 pg/mL 2.3 - 4.1 pg/mL C leveland [facility] T3Free SerPl-mCncon 10-18-19 25 Free T3 [Mass/Vol] 3.7 pg/mL Normal 2.3-4.1 [facility] Comment on above: Order Comment: Krystyna armstrong Type: BLOOD SPECIMENOrdering Facility: [facility] Address: [address] [place] [address] Performed By: #### 3 051-0, 84195-2, 3024-7, 3016-3 ####[facility] LABORATORYCLIA [id number] [place] [address] [place] T4 FREE/FREE THYROXINEon Free T4 [Mass/Vol] 1.2 ng/dL 0.9 - 1.7 ng/dL C leveland [facility] T4 Free SerPl-mCncon 025 Free T4 [Mass/Vol] 1.2 ng/dL Normal 0.9-1.7 [facility] Comment on above: Order Comment: Specclaire armstrong Type: BLOOD SPECIMENOrdering Facility: [facility] Address: [address] [place] [address] [place] [address] Performed By: #### 3 051-0, 99779-8, 3024-7, 3016-3 ####[facility] LABORATORYCLIA [id number] [place] [address] [place] [facility] THYROID STIMULATING HORMONEo n 10-17-2024 TSH Qn 2.71 m[IU]/L [facility] Comment on above: If the patient is [...] Perez et al. 2017 Guidelines of the [place] Thyroid Association for the Diagnosis and Management of Thyroid Disease during and the . Thyroid, 2017:27:3:315-389. TSH SerPl-aCncon 10-17-2024 TSH Qn 2.710 m[IU]/L Normal 0.270-4.200 [facility] Comment on above: Order Comment: Krystyna armstrong Type: BLOOD SPECIMENOrdering Facility: [facility] Address: [facility] [place] [address] Result Comment: If t he patient is , TSH reference range varies by gestational period:First Trimester (weeks 9-12): 0.180-2.990 mIU/LSecond Trimester: 0.110-3.980 mIU/LThird Trimester: 0.480-4.710 mIU/LDkedar Cheng et al. A Practical Approach for the Verifications and Determination of Site- and Trimester-Specific Reference Intervals for Thyroid Function tests in . Thyroid, 2019:29:3:412-420. Rickey Perez et al. 2017 Guidelines of the [place] Thyroid Association for the Diagnosis and Management of Thyroid Disease during and the . Thyroid, 2017:27:3:315-389. Performed By: #### 3 051-0, 91405-1, 3024-7, 3016-3 ####[facility] LABORATORYCLIA [id number] [place] [id number] [place] [facility] VITAMIN B12on 10-17-2024 Cobalamin (Vitamin B12) [Mass/Vol] 271 pg/mL 232 - 1245 pg/mL [facility] Vit B12 SerPl-mCncon 025 Cobalamin (Vitamin B12) [Mass/Vol] 271 pg/mL Normal 232-1245 [facility] Comment on above: Order Comment: Speci men Type: BLOOD SPECIMENOrdering Facility: [facility] Address: [address] [place], [place] [address] [address] Performed By: #### 1 988-5, 2132-9 ####[facility] LABORATORYCLIA [id number] [place] [id number] [facility] CNOVon 10-16-2024 CNOV Normal [facility] CNOVon 09-25-2024 CNOV Normal [facility] XR CHEST 2V FRONTAL/LATon XR CHEST 2V FRONTAL/LAT Normal [facility] XR Chest PA and Lateralon IMPRESSION: No acute radiographic abnormality. Ammonia Nitrate Operator: REUBEN Transcribe Date/Time: Sep 25 2024 9:31A Dictated by : JONATAN RENEE MD This examination was interpreted and the report reviewed and electronically signed by: JONATAN RENEE MD on Sep 25 2024 9:31AM [facility] DIVISION OF RADIOLOGY * * [...] Unremarkable. IMPRESSION IMPRESSION: No acute radiographic abnormality. Ammonia Nitrate Operator: [facility] Transcribe Date/Time: Sep 25 2024 9:31A Dictated by : JONATAN RENEE MD This examination was interpreted and the report reviewed and electronically signed by: JONATAN RENEE MD on Sep 25 2024 9:31AM EST [facility] Radiology Study observation (narrative) [facility] XR Chest PA and LateralOrder ed By: Ccf Provider on 09-25-2024 [facility] CNPN Normal [facility] CNPNon 07-25-2024 CNPN Normal [facility] 12 Lead EKGon 07-20-2024 12 Lead EKG [facility] Cardiovascular Services [address] [place] [address] 12 Lead EKG 07/20/24 1256 MR#: [id number] Acct: [id number] Name: LILIAM THOMPSON Rep #: [id number] : 1990 33 From: Selma Jackson MD [...] abnormality Abnormal ECG Confirmed by Selma Jackson ([id number]), content editor BLAKE MEJÍA ([id number]) on 07/23/2024 6:54:04 AM Referred By: Confirmed By: Selma Jackson 07/23/24 0654 Date Selma Jackson MD CC: Dr. Nicholas Santiago DO; Dr. Faustina Carcamo MD Signed Normal [facility] Basic Metabolic Profile (BMP )on 07-20-2024 BUN/CRE 14.3 RATIO Normal 10-20 [facility] Comment on above: Order Comment: 1Y Performed By: #### L 500.2500, L501.5425, L100.0100 ####[facility] [address] [place], [address] CA,Total 8.9 mg/dL Normal 8.5-10.1 [facility] Comment on above: Order Comment: 1Y Performed By: #### L 500.2500, L501.5425, L100.0100 ####[facility] [address] [place], [address] Chloride [Moles/Vol] 109 mmol/L High 98-107 [facility] Comment on above: Order Comment: 1Y Performed By: #### L 500.2500, L501.5425, L100.0100 ####[facility] [address] [place], [address] CO2 [Moles/Vol] 25.0 mmol/L Normal 21.0-32.0 [facility] Comment on above: Order Comment: 1Y Performed By: #### L 500.2500, L501.5425, L100.0100 ####[facility] [address] [place], [address] Creatinine [Mass/Vol] 0.63 mg/dL Normal 0.55-1.02 [facility] Comment on above: Order Comment: 1Y Result Comment: The validity of the calculated GFR GFRAA in patients over 70 years has not been determined. Clinical correlation is essential. Performed By: #### L 500.2500, L501.5425, L100.0100 ####[facility] [address] [place], [address] ECRCL 158.53 ml/min Normal [facility] Comment on above: Order Comment: 1Y Performed By: #### L 500.2500, L501.5425, L100.0100 ####[facility] [address] [place], [address] EST GFR - AA 141 mL/min Normal >60 [facility] Comment on above: Order Comment: 1Y Result Comment: Afri can [place] GFR Calc Performed By: #### L 500.2500, L501.5425, L100.0100 ####[facility] [address] [place], [address] GAP 6 Normal 5-15 [facility] Comment on above: Order Comment: 1Y Performed By: #### L 500.2500, L501.5425, L100.0100 ####[facility] [address] [place], [address] GFR/1.73 sq M.predicted among non-blacks MDRD (S/P/Bld) [Vol rate/Area] 117 mL/min/{1.73_m2} Normal >60 [facility] Comment on above: Order Comment: 1Y Result Comment: Non- GFR Calc Performed By: #### L 500.2500, L501.5425, L100.0100 ####[facility] [address] [place], [address] Glucose [Mass/Vol] 116 mg/dL High 74-106 [facility] Comment on above: Order Comment: 1Y Result Comment: Fast ing Glucose result from 100 to 125 mg/dL suggests IMPAIRED HOMEOSTASIS per A.D.A. criteria. Performed By: #### L 500.2500, L501.5425, L100.0100 ####[facility] [address] [place], [address] Potassium [Moles/Vol] 4.0 mmol/L Normal 3.5-5.1 [facility] Comment on above: Order Comment: 1Y Performed By: #### L 500.2500, L501.5425, L100.0100 ####[facility] [address] [place], [address] Sodium [Moles/Vol] 139 mmol/L Normal 136-145 [facility] Comment on above: Order Comment: 1Y Performed By: #### L 500.2500, L501.5425, L100.0100 ####[facility] [address] [place], [address] Urea nitrogen [Mass/Vol] 9 mg/dL Normal 7-18 [facility] Comment on above: Order Comment: 1Y Performed By: #### L 500.2500, L501.5425, L100.0100 ####[facility] [address] [place], [address] CBC W/Diff, Automatedon 12-0 Absolute Lymph 2.16 X10 3/uL Normal 0.83-4.51 [facility] Comment on above: Performed By: #### L 500.2500, L501.5425, L100.0100 ####[facility] [address] [place], [address] Absolute Neut 3.0 X10 3/uL Normal 2.0-7.7 [facility] Comment on above: Performed By: #### L 500.2500, L501.5425, L100.0100 ####[facility] [address] [place], [address] Basophils/100 WBC (Bld) 0.5 % Normal 0-1 [facility] Comment on above: Performed By: #### L 500.2500, L501.5425, L100.0100 ####[facility] [address] [place], [address] Eosinophils/100 WBC (Bld) 0.5 % Normal 0-5 [facility] Comment on above: Performed By: #### L 500.2500, L501.5425, L100.0100 ####[facility] [address] [place], [address] Erythrocyte distribution width (RBC) [Ratio] 12.4 % Normal 11.6-14.6 [facility] Comment on above: Performed By: #### L 500.2500, L501.5425, L100.0100 ####[facility] [address] [place], [address] Hematocrit (Bld) [Volume fraction] 39.3 % Normal 37-47 [facility] Comment on above: Performed By: #### L 500.2500, L501.5425, L100.0100 ####[facility] [address] [place], [address] Hemoglobin (Bld) [Mass/Vol] 13.1 g/dL Normal 12.0-15.0 [facility] Comment on above: Performed By: #### L 500.2500, L501.5425, L100.0100 ####[facility] [address] [place], [address] IG% 0.200 Normal 0.0-0.9 [facility] Comment on above: Result Comment: IG% - Immature Granulocytes (promyelocytes, myelocytes and metamyelocytes) > 1% indicates that a LEFT SHIFT is Present. Performed By: #### L 500.2500, L501.5425, L100.0100 ####[facility] [address] [place], [address] Lymphocytes/100 WBC (Bld) 37.6 % Normal 19-41 [facility] Comment on above: Performed By: #### L 500.2500, L501.5425, L100.0100 ####[facility] [address] [place], [address] MCH (RBC) [Entitic mass] 30.8 pg Normal 27.0-32.0 [facility] Comment on above: Performed By: #### L 500.2500, L501.5425, L100.0100 ####[facility] [address] [place], [address] MCHC (RBC) [Mass/Vol] 33.3 g/dL Normal 32-36 [facility] Comment on above: Performed By: #### L 500.2500, L501.5425, L100.0100 ####[facility] [address] [place], [address] MCV (RBC) [Entitic vol] 92.5 fL Normal 81-99 [facility] Comment on above: Performed By: #### L 500.2500, L501.5425, L100.0100 ####[facility] [address] [place], [address] Monocytes/100 WBC (Bld) 9.6 % Normal 0-10 [facility] Comment on above: Performed By: #### L 500.2500, L501.5425, L100.0100 ####[facility] [address] [place], [address] Neutrophils/100 WBC (Bld) 51.6 % Normal 47-70 [facility] Comment on above: Performed By: #### L 500.2500, L501.5425, L100.0100 ####[facility] [address] [place], [address] Nucleated RBC (Bld) [#/Vol] 0 10*3/uL Normal 0-5 [facility] Comment on above: Performed By: #### L 500.2500, L501.5425, L100.0100 ####[facility] [address] [place], [address] Platelet mean volume (Bld) [Entitic vol] 9.0 fL Normal 6.2-12.0 [facility] Comment on above: Performed By: #### L 500.2500, L501.5425, L100.0100 ####[facility] [address] [place], [address] Platelets (Bld) [#/Vol] 411 10*3/uL Normal 150-450 [facility] Comment on above: Performed By: #### L 500.2500, L501.5425, L100.0100 ####[facility] [address] [place], [address] RBC (Bld) [#/Vol] 4.25 10*6/uL Normal 4.2-5.4 [facility] Comment on above: Performed By: #### L 500.2500, L501.5425, L100.0100 ####[facility] [address] [place], [address] RDW SD 42.0 fl Normal 35.1-43.9 [facility] Comment on above: Performed By: #### L 500.2500, L501.5425, L100.0100 ####[facility] [address] [place], [address] WBC (Bld) [#/Vol] 5.7 10*3/uL Normal 4.4-11.0 [facility] Comment on above: Performed By: #### L 500.2500, L501.5425, L100.0100 ####[facility] [address] [place], [place], [address] Chest 1 View (Portable)on Chest 1 View (Portable) [facility] Imaging Services [address] [place], [place] [address] Chest 1 View (Portable) MR#: [id number] Acct: [id number] Name: LILIAM THOMPSON Rep #: [id number] : 1990 F 33 From: Milo cortez MD PCP: Dr. Faustina Carcamo MD Status: REG ER Study: Chest 1 View (Portable) Date of Exam: 07/20/24 Exam# [id number] Ordering Dr: Nicholas Santiago DO [id number] STUDY: X-RAY CHEST REASON FOR EXAM: Female, [...] Nicholas Santiago DO; Dr. Faustina Carcamo MD Ammonia Nitrate Operator: Signed Normal [facility] Emergency Department Summary on 07-20-2024 Emergency Department Summary [facility] Medical Records Department [address] [place] [address] Emergency Department Summary 07/20/24 MR#: [id number] Acct: [id number] Name: LILIAM THOMPSON Rep #: [id number] : 1990 33 From: Nicholas Santiago DO [...] does not smoke. No history of DVT/PE. [facility] Medical History Morbid (severe) obesity due to [...] leep medroxyprogesterone 150 mg/mL 150 mg IM .[id number] 03/02/19 Unknown History intramuscular syringe meloxicam 15 [...] tachycardic as (more content not included)... Normal [facility] L501.5425on 07-20-2024 TROPONIN-I HS 4 pg/mL Normal 3.0-54.0 [facility] Comment on above: Order Comment: 1Y Result Comment: Shameka chu Note: New Test Units and Gender Specific Reference Ranges. For more information see Policy Stat Procedure [place] High Sensitivity Troponin (TNIH) and attachments. Performed By: #### L 500.2500, L501.5425, L100.0100 ####[facility] [address] [facility] [place], [address] CNPNon 07-19-2024 CNPN Normal [facility] CNOVon 07-11-2024 CNOV Normal [facility] CNOVon 07-04-2024 CNOV Normal [facility] CNPNon 06-14-2024 CNPN Normal [facility] 12 Lead EKGon 06-07-2024 12 Lead EKG [facility] Cardiovascular Services [address] [place] [address] 12 Lead EKG 06/07/24 0146 MR#: [id number] Acct: [id number] Name: LILIAM THOMPSON Rep #: [id number] : 1990 33 From: Oziel Nash MD [...] ECG Confirmed by OZIEL NASH MD ([id number]), content editor IRENE HERRERA ([id number]) on 06/07/2024 9:28:37 AM Referred By: AR Confirmed By:OZIEL NASH MD 06/07/24927 Date Oziel Nash MD CC: Dr. Ermias Kelly MD; Dr. Faustina Carcamo MD Signed Normal [facility] Basic Metabolic Profile (BMP )on 06-07-2024 BUN/CRE 11.5 RATIO Normal 10-20 [facility] Comment on above: Order Comment: 1 Y Performed By: #### L 300.8000, L100.0100, L500.2500, L501.5425 #### [facility] [address] [place], [address] CA,Total 9.2 mg/dL Normal 8.5-10.1 [facility] Comment on above: Order Comment: 1 Y Performed By: #### L 300.8000, L100.0100, L500.2500, L501.5425 #### [facility] [address] [place], [address] Chloride [Moles/Vol] 111 mmol/L High 98-107 [facility] Comment on above: Order Comment: 1 Y Performed By: #### L 300.8000, L100.0100, L500.2500, L501.5425 #### [facility] [address] [place], [address] CO2 [Moles/Vol] 22.0 mmol/L Normal 21.0-32.0 [facility] Comment on above: Order Comment: 1 Y Performed By: #### L 300.8000, L100.0100, L500.2500, L501.5425 #### [facility] [address] [place], [address] Creatinine [Mass/Vol] 0.61 mg/dL Normal 0.55-1.02 [facility] Comment on above: Order Comment: 1 Y Result Comment: The validity of the calculated GFR GFRAA in patients over 70 years has not been determined. Clinical correlation is essential. Performed By: #### L 300.8000, L100.0100, L500.2500, L501.5425 #### [facility] [address] [place], [address] ECRCL 163.15 ml/min Normal [facility] Comment on above: Order Comment: 1 Y Performed By: #### L 300.8000, L100.0100, L500.2500, L501.5425 #### [facility] [address] [place], [address] EST GFR - AA 147 mL/min Normal >60 [facility] Comment on above: Order Comment: 1 Y Result Comment: Afri can Libyan GFR Calc Performed By: #### L 300.8000, L100.0100, L500.2500, L501.5425 #### [facility] [address] [place], [address] GAP 6 Normal 5-15 [facility] Comment on above: Order Comment: 1 Y Performed By: #### L 300.8000, L100.0100, L500.2500, L501.5425 #### [facility] [address] [place], [address] GFR/1.73 sq M.predicted among non-blacks MDRD (S/P/Bld) [Vol rate/Area] 122 mL/min/{1.73_m2} Normal >60 [facility] Comment on above: Order Comment: 1 Y Result Comment: Non- GFR Calc Performed By: #### L 300.8000, L100.0100, L500.2500, L501.5425 #### [facility] [address] [place], [address] Glucose [Mass/Vol] 111 mg/dL High 74-106 [facility] Comment on above: Order Comment: 1 Y Result Comment: Fast ing Glucose result from 100 to 125 mg/dL suggests IMPAIRED HOMEOSTASIS per A.D.A. criteria. Performed By: #### L 300.8000, L100.0100, L500.2500, L501.5425 #### [facility] [address] [place], [address] Potassium [Moles/Vol] 4.4 mmol/L Normal 3.5-5.1 [facility] Comment on above: Order Comment: 1 Y Result Comment: Slig ht Hemolysis, Result may be falsely increased. Performed By: #### L 300.8000, L100.0100, L500.2500, L501.5425 #### [facility] [address] [place], [address] Sodium [Moles/Vol] 139 mmol/L Normal 136-145 [facility] Comment on above: Order Comment: 1 Y Performed By: #### L 300.8000, L100.0100, L500.2500, L501.5425 #### [facility] [address] [place], [address] Urea nitrogen [Mass/Vol] 7 mg/dL Normal 7-18 [facility] Comment on above: Order Comment: 1 Y Performed By: #### L 300.8000, L100.0100, L500.2500, L501.5425 #### [facility] [address] [place], [address] CBC W/Diff, Automatedon 10- Absolute Lymph 2.03 X10 3/uL Normal 0.83-4.51 [facility] Comment on above: Order Comment: This specimen has been REJECTED due to Laboratory criteria: Clotted. [email or web address] has been notified of need of recollection. 06/07/24209 Irene C Corolla Performed By: #### L 100.0100 #### [facility] [address] [place], [address] Absolute Neut 6.3 X10 3/uL Normal 2.0-7.7 [facility] Comment on above: Order Comment: This specimen has been REJECTED due to Laboratory criteria: Clotted. [email or web address] has been notified of need of recollection. 06/07/24209 Irene C Corolla Performed By: #### L 100.0100 #### [facility] [address] [place], [address] Basophils/100 WBC (Bld) 0.4 % Normal 0-1 [facility] Comment on above: Order Comment: This specimen has been REJECTED due to Laboratory criteria: Clotted. [email or web address] has been notified of need of recollection. 06/07/24209 Irene C Corolla Performed By: #### L 100.0100 #### [facility] [address] [place], [address] Eosinophils/100 WBC (Bld) 0.3 % Normal 0-5 [facility] Comment on above: Order Comment: This specimen has been REJECTED due to Laboratory criteria: Clotted. [email or web address] has been notified of need of recollection. 06/07/24209 Irene C Jessy Performed By: #### L 100.0100 #### [facility] [address] [place], [address] Erythrocyte distribution width (RBC) [Ratio] 12.2 % Normal 11.6-14.6 [facility] Comment on above: Order Comment: This specimen has been REJECTED due to Laboratory criteria: Clotted. [email or web address] has been notified of need of recollection. 06/07/24209 Irene C Jessy Performed By: #### L 100.0100 #### [facility] [address] [place], [address] Hematocrit (Bld) [Volume fraction] 37.7 % Normal 37-47 [facility] Comment on above: Order Comment: This specimen has been REJECTED due to Laboratory criteria: Clotted. [email or web address] has been notified of need of recollection. 06/07/24209 Irene Jiménez Performed By: #### L 100.0100 #### [facility] [address] [place], [address] Hemoglobin (Bld) [Mass/Vol] 12.8 g/dL Normal 12.0-15.0 [facility] Comment on above: Order Comment: This specimen has been REJECTED due to Laboratory criteria: Clotted. [email or web address] has been notified of need of recollection. 06/07/24209 Irene Jiménez Performed By: #### L 100.0100 #### [facility] [address] [place], [address] IG% 0.500 Normal 0.0-0.9 [facility] Comment on above: Order Comment: This specimen has been REJECTED due to Laboratory criteria: Clotted. [email or web address] has been notified of need of recollection. 06/07/24209 Irene Jiménez Result Comment: IG% - Immature Granulocytes (promyelocytes, myelocytes and metamyelocytes) > 1% indicates that a LEFT SHIFT is Present. Performed By: #### L 100.0100 #### [facility] [address] [place], [address] Lymphocytes/100 WBC (Bld) 22.0 % Normal 19-41 [facility] Comment on above: Order Comment: This specimen has been REJECTED due to Laboratory criteria: Clotted. [email or web address] has been notified of need of recollection. 06/07/24209 Irene Jiménez Performed By: #### L 100.0100 #### [facility] [address] [place], [address] MCH (RBC) [Entitic mass] 31.2 pg Normal 27.0-32.0 [facility] Comment on above: Order Comment: This specimen has been REJECTED due to Laboratory criteria: Clotted. [email or web address] has been notified of need of recollection. 06/07/24209 Irene C Jessy Performed By: #### L 100.0100 #### [facility] [address] [place], [address] MCHC (RBC) [Mass/Vol] 34.0 g/dL Normal 32-36 [facility] Comment on above: Order Comment: This specimen has been REJECTED due to Laboratory criteria: Clotted. [email or web address] has been notified of need of recollection. 06/07/24209 Irene C Jessy Performed By: #### L 100.0100 #### [facility] [address] [place], [address] MCV (RBC) [Entitic vol] 92.0 fL Normal 81-99 [facility] Comment on above: Order Comment: This specimen has been REJECTED due to Laboratory criteria: Clotted. [email or web address] has been notified of need of recollection. 06/07/24209 Irene C Corolla Performed By: #### L 100.0100 #### [facility] [address] [place], [address] Monocytes/100 WBC (Bld) 8.5 % Normal 0-10 [facility] Comment on above: Order Comment: This specimen has been REJECTED due to Laboratory criteria: Clotted. [email or web address] has been notified of need of recollection. 06/07/24209 Irene C Corolla Performed By: #### L 100.0100 #### [facility] [address] [place], [address] Neutrophils/100 WBC (Bld) 68.3 % Normal 47-70 [facility] Comment on above: Order Comment: This specimen has been REJECTED due to Laboratory criteria: Clotted. [email or web address] has been notified of need of recollection. 06/07/24209 Irene C Corolla Performed By: #### L 100.0100 #### [facility] [address] [place], [address] Nucleated RBC (Bld) [#/Vol] 0 10*3/uL Normal 0-5 [facility] Comment on above: Order Comment: This specimen has been REJECTED due to Laboratory criteria: Clotted. [email or web address] has been notified of need of recollection. 06/07/24209 Irene C Corolla Performed By: #### L 100.0100 #### [facility] [address] [place], [address] Platelet mean volume (Bld) [Entitic vol] 9.4 fL Normal 6.2-12.0 [facility] Comment on above: Order Comment: This specimen has been REJECTED due to Laboratory criteria: Clotted. [email or web address] has been notified of need of recollection. 06/07/24209 Irene C Corolla Performed By: #### L 100.0100 #### [facility] [address] [place], [address] Platelets (Bld) [#/Vol] 411 10*3/uL Normal 150-450 [facility] Comment on above: Order Comment: This specimen has been REJECTED due to Laboratory criteria: Clotted. [email or web address] has been notified of need of recollection. 06/07/24209 Irene C Corolla Performed By: #### L 100.0100 #### [facility] [address] [place], [address] RBC (Bld) [#/Vol] 4.10 10*6/uL Low 4.2-5.4 [facility] Comment on above: Order Comment: This specimen has been REJECTED due to Laboratory criteria: Clotted. [email or web address] has been notified of need of recollection. 06/07/24209 Irene C Jessy Performed By: #### L 100.0100 #### [facility] [address] [place], [address] RDW SD 40.7 fl Normal 35.1-43.9 [facility] Comment on above: Order Comment: This specimen has been REJECTED due to Laboratory criteria: Clotted. [email or web address] has been notified of need of recollection. 06/07/24209 Irene C Jessy Performed By: #### L 100.0100 #### [facility] [address] [place], [address] WBC (Bld) [#/Vol] 9.2 10*3/uL Normal 4.4-11.0 [facility] Comment on above: Order Comment: This specimen has been REJECTED due to Laboratory criteria: Clotted. [email or web address] has been notified of need of recollection. 06/07/24209 Irene C Corolla Performed By: #### L 100.0100 #### [facility] [address] [place], [address] Absolute Neut Normal 2.0-7.7 [facility] Comment on above: Result Comment: This specimen has been REJECTED due to Laboratory criteria: Clotted. [email or web address] has been notified of need of recollection. 06/07/24209 Irene Mike Jessy Performed By: #### L 300.8000, L100.0100, L500.2500, L501.5425 #### [facility] [address] [place], [address] HCT Normal 37-47 [facility] Comment on above: Result Comment: This specimen has been REJECTED due to Laboratory criteria: Clotted. [email or web address] has been notified of need of recollection. 06/07/24209 Irene C Jessy Performed By: #### L 300.8000, L100.0100, L500.2500, L501.5425 #### [facility] [address] [place], [address] HGB Normal 12.0-15.0 [facility] Comment on above: Result Comment: This specimen has been REJECTED due to Laboratory criteria: Clotted. [email or web address] has been notified of need of recollection. 06/07/24209 Irene C Jessy Performed By: #### L 300.8000, L100.0100, L500.2500, L501.5425 #### [facility] [address] [place], [address] MCH Normal 27.0-32.0 [facility] Comment on above: Result Comment: This specimen has been REJECTED due to Laboratory criteria: Clotted. [email or web address] has been notified of need of recollection. 06/07/24209 Irene C Corolla Performed By: #### L 300.8000, L100.0100, L500.2500, L501.5425 #### [facility] [address] [place], [address] [facility] Normal 32-36 [facility] Comment on above: Result Comment: This specimen has been REJECTED due to Laboratory criteria: Clotted. [email or web address] has been notified of need of recollection. 06/07/24209 Irene C Jessy Performed By: #### L 300.8000, L100.0100, L500.2500, L501.5425 #### [facility] [address] [place], [address] MCV Normal 81-99 [facility] Comment on above: Result Comment: This specimen has been REJECTED due to Laboratory criteria: Clotted. [email or web address] has been notified of need of recollection. 06/07/24209 Irene C Corolla Performed By: #### L 300.8000, L100.0100, L500.2500, L501.5425 #### [facility] [address] [place], [address] NEUT% Normal 47-70 [facility] Comment on above: Result Comment: This specimen has been REJECTED due to Laboratory criteria: Clotted. [email or web address] has been notified of need of recollection. 06/07/24209 Irene C Corolla Performed By: #### L 300.8000, L100.0100, L500.2500, L501.5425 #### [facility] [address] [place], [address] PLT Normal 150-450 [facility] Comment on above: Result Comment: This specimen has been REJECTED due to Laboratory criteria: Clotted. [email or web address] has been notified of need of recollection. 06/07/24209 Irene C Jessy Performed By: #### L 300.8000, L100.0100, L500.2500, L501.5425 #### [facility] [address] [place], [address] RBC Normal 4.2-5.4 [facility] Comment on above: Result Comment: This specimen has been REJECTED due to Laboratory criteria: Clotted. [email or web address] has been notified of need of recollection. 06/07/24209 Irene C Jessy Performed By: #### L 300.8000, L100.0100, L500.2500, L501.5425 #### [facility] [address] [place], [address] RDW CV Normal 11.6-14.6 [facility] Comment on above: Result Comment: This specimen has been REJECTED due to Laboratory criteria: Clotted. [email or web address] has been notified of need of recollection. 06/07/24209 Irene C Corolla Performed By: #### L 300.8000, L100.0100, L500.2500, L501.5425 #### [facility] [address] [place], [address] RDW SD Normal 35.1-43.9 [facility] Comment on above: Result Comment: This specimen has been REJECTED due to Laboratory criteria: Clotted. [email or web address] has been notified of need of recollection. 06/07/24209 Irene C Corolla Performed By: #### L 300.8000, L100.0100, L500.2500, L501.5425 #### [facility] [address] [place], [address] WBC Normal 4.4-11.0 [facility] Comment on above: Result Comment: This specimen has been REJECTED due to Laboratory criteria: Clotted. [email or web address] has been notified of need of recollection. 06/07/24 0210 Irene Jiménez Performed By: #### L 300.8000, L100.0100, L500.2500, L501.5425 #### [facility] [address] [place], [place], [address] Chest 1 View (Portable)on Chest 1 View (Portable) [facility] Imaging Services [address] [place], [place] [address] Chest 1 View (Portable) MR#: [id number] Acct: [id number] Name: LILIAM THOMPSON Rep #: [id number] : 1990 F 33 From: Denisa Hugo MD PCP: Dr. Faustina Carcamo MD Status: REG ER Study: Chest 1 View (Portable) Date of Exam: 06/07/24 Exam# [id number] Ordering Dr: Ermias Kelly MD [id number] STUDY: X-RAY CHEST REASON FOR EXAM: Female, [...] Ermias Kelly MD; Dr. Faustina Carcamo MD Ammonia Nitrate Operator: Signed Normal [facility] D-Dimer Quantitative (DVT/PE )on 06-07-2024 D-DIMER QUANT 0.33 FEU/ug/m Normal 0.27-0.49 [facility] Comment on above: Result Comment: NORM AL D-Dimer level (<0.50) indicates no DVT or PE. Performed By: #### L 300.8000, L100.0100, L500.2500, L501.5425 #### [facility] [address] [facility] [place], [address] Emergency Department Summary on 06-07-2024 Emergency Department Summary [facility] Medical Records Department [address] [place] [address] Emergency Department Summary 06/07/24 MR#: [id number] Acct: [id number] Name: LILIAM THOMPSON Rep #: [id number] : 1990 33 From: Ermias Kelly MD [...] legs. No other exacerbating or alleviating factors. [facility] Medical History Morbid (severe) obesity due to [...] leep medroxyprogesterone 150 mg/mL 150 mg IM .[id number] 03/02/19 Unknown History intramuscular syringe meloxicam 15 [...] independent interpre (more content not included)... Normal [facility] L501.4020on 06-07-2024 TROPONIN-I HS 4 pg/mL Normal 3.0-54.0 [facility] Comment on above: Result Comment: Shameka chu Note: New Test Units and Gender Specific Reference Ranges. For more information see Policy Stat Procedure [place] High Sensitivity Troponin (TNIH) and attachments. Performed By: #### L 501.4020 #### [facility] [place], [address] L501.5425on 06-07-2024 TROPONIN-I HS 4 pg/mL Normal 3.0-54.0 [facility] Comment on above: Order Comment: 1 Y Result Comment: Shameka chu Note: New Test Units and Gender Specific Reference Ranges. For more information see Policy Stat Procedure [place] High Sensitivity Troponin (TNIH) and attachments. Performed By: #### L 300.8000, L100.0100, L500.2500, L501.5425 #### [facility] [address] [place], [address] CNCNPATEDon 05-14-2024 CNCNPATED Normal [facility] CNPNon 05-04-2024 CNPN Normal [facility] CNPNon 04-30-2024 CNPN Normal [facility] CNOVon 04-03-2024 CNOV Normal [facility] CNPNon 04-03-2024 CNPN Normal [facility] ALT SerPl-cCncon 04-02-2024 ALT [Catalytic activity/Vol] 34 U/L Normal 7-38 [facility] Comment on above: Order Comment: Speci men Type: BLOOD SPECIMENOrdering Facility: [facility] Address: [address] [place] [address] Performed By: #### Mike RET1, 1920-03, 2157-01, 1987-12, 1742-01 ####[facility] LABCLIA [id number] [address] [place] [address] [address] [place] AST SerPl-cCncon 04-02-2024 AST [Catalytic activity/Vol] 28 U/L Normal 13-35 [facility] Comment on above: Order Comment: Speci men Type: BLOOD SPECIMENOrdering Facility: [facility] Address: [address] [place] [address] Performed By: #### C RET1, 1920-03, 2157-01, 1987-12, 1742-01 ####[facility] LABCLIA [id number] [address] [place] [address] [address] [place] Aldolase SerPl-cCncon 2023 Aldolase [Catalytic activity/Vol] 3.4 mU/mL Normal 1.5-8.1 [facility] Comment on above: Order Comment: Krystyna armstrong Type: BLOOD SPECIMENOrdering Facility: [facility] Address: [address] [place] [address] Result Comment: This test was developed and its performance characteristics determined by [facility] Guillaume Jennifer [facility] Pathology and Laboratory Medicine [place] ([facility] It has not been cleared or approved by the FDA. [facility] is regulated under CLIA as qualified to perform high-complexity testing. This test is used for clinical purposes. It should not be regarded as investigational or for research. Performed By: #### 1 761-6 ####[facility] LABCLIA [id number] [place] [address] [place] BUN SerPl-mCncon 04-02-2024 Urea nitrogen [Mass/Vol] 10 mg/dL Normal 7-21 [facility] Comment on above: Order Comment: Krystyna armstrong Type: BLOOD SPECIMENOrdering Facility: [facility] Address: [address] [place] [address] Performed By: #### 3 094-0 ####[facility] LABCLIA [id number] [place] [address] [place] CBC W Auto Differential pane l (Bld)on 04-02-2024 Basophils (Bld) [#/Vol] 0.05 10*3/uL [facility] Basophils/100 WBC (Bld) 0.6 % [facility] Differential cell count method Nom (Bld) Auto [facility] Eosinophils (Bld) [#/Vol] 0.14 10*3/uL [facility] Eosinophils/100 WBC (Bld) 1.6 % [facility] Erythrocyte distribution width (RBC) [Ratio] 12.4 % 11.5 - 15.0 % [facility] Hematocrit (Bld) [Volume fraction] 41.7 % 36.0 - 46.0 % [facility] Hemoglobin (Bld) [Mass/Vol] 13.6 g/dL 11.5 - 15.5 g/dL [facility] Immature granulocytes (Bld) [#/Vol] 0.04 10*3/uL [facility] Immature granulocytes/100 WBC (Bld) 0.5 % [facility] Interpretation and review of laboratory results Abnormal [facility] Lymphocytes (Bld) [#/Vol] 2.86 10*3/uL [facility] Lymphocytes/100 WBC (Bld) 32.6 % [facility] MCH (RBC) [Entitic mass] 31.8 pg 26.0 - 34.0 pg [facility] MCHC (RBC) [Mass/Vol] 32.6 g/dL 30.5 - 36.0 g/dL [facility] MCV (RBC) [Entitic vol] 97.4 fL 80.0 - 100.0 fL [facility] Monocytes (Bld) [#/Vol] 0.65 10*3/uL [facility] Monocytes/100 WBC (Bld) 7.4 % [facility] Neutrophils (Bld) [#/Vol] 5.03 10*3/uL [facility] Neutrophils/100 WBC (Bld) 57.3 % [facility] Nucleated RBC (Bld) [#/Vol] [facility] Nucleated RBC/100 WBC (Bld) [Ratio] 0.0 % /100 WBC [facility] Platelet mean volume (Bld) [Entitic vol] 10.2 fL 9.0 - 12.7 fL [facility] Platelets (Bld) [#/Vol] 423 10*3/uL High [facility] RBC (Bld) [#/Vol] 4.28 10*6/uL 3.90 - 5.2 0 m/uL [facility] WBC (Bld) [#/Vol] 8.77 10*3/uL [facility] Basophils (Bld) [#/Vol] 0.05 10*3/uL Normal <0.11 [facility] Comment on above: Order Comment: Speci men Type: BLOOD SPECIMENOrdering Facility: [facility] Address: [address] [place] [address] Performed By: #### 4 537-7, 63865-0 ####[facility] LABCLIA [id number] [address] [place] Basophils/100 WBC (Bld) 0.6 % Normal [facility] Comment on above: Order Comment: Speci men Type: BLOOD SPECIMENOrdering Facility: [facility] Address: [address] [place] [address] Performed By: #### 4 537-7, 40719-1 ####[facility] LABCLIA [id number] [place] [address] [place] Differential cell count method Nom (Bld) Auto Normal [facility] Comment on above: Order Comment: Speci men Type: BLOOD SPECIMENOrdering Facility: [facility] Address: [address] [place] [address] Performed By: #### 4 537-7, 49256-4 ####[facility] LABCLIA [id number] [place] [address] [place] Eosinophils (Bld) [#/Vol] 0.14 10*3/uL Normal <0.46 [facility] Comment on above: Order Comment: Speci men Type: BLOOD SPECIMENOrdering Facility: [facility] Address: [address] [place] [address] Performed By: #### 4 537-7, 75384-0 ####[facility] LABCLIA [id number] [place] [address] [place] Eosinophils/100 WBC (Bld) 1.6 % Normal [facility] Comment on above: Order Comment: Speci men Type: BLOOD SPECIMENOrdering Facility: [facility] Address: [address] [place] [address] Performed By: #### 4 537-7, 22071-2 ####[facility] LABCLIA [id number] [place] [address] [place] Erythrocyte distribution width (RBC) [Ratio] 12.4 % Normal 11.5-15.0 [facility] Comment on above: Order Comment: Speci men Type: BLOOD SPECIMENOrdering Facility: [facility] Address: [address] [place] [address] Performed By: #### 4 537-7, 12057-6 ####[facility] LABIA [id number] [place] [address] [place] Hematocrit (Bld) [Volume fraction] 41.7 % Normal 36.0-46.0 [facility] Comment on above: Order Comment: Speci men Type: BLOOD SPECIMENOrdering Facility: [facility] Address: [address] [place] [address] Performed By: #### 4 537-7, 26526-1 ####[facility] LABIA [id number] [place] [address] [place] Hemoglobin (Bld) [Mass/Vol] 13.6 g/dL Normal 11.5-15.5 [facility] Comment on above: Order Comment: Speci men Type: BLOOD SPECIMENOrdering Facility: [facility] Address: [address] [place] [address] Performed By: #### 4 537-7, 05080-1 ####[facility] LABIA [id number] [place] [address] [place] Immature granulocytes (Bld) [#/Vol] 0.04 10*3/uL Normal <0.10 [facility] Comment on above: Order Comment: Speci men Type: BLOOD SPECIMENOrdering Facility: [facility] Address: [address] [place] [address] Performed By: #### 4 537-7, 44388-0 ####[facility] LABIA [id number] [place] [address] [place] Immature granulocytes/100 WBC (Bld) 0.5 % Normal [facility] Comment on above: Order Comment: Speci men Type: BLOOD SPECIMENOrdering Facility: [facility] Address: [address] [place] [address] Performed By: #### 4 537-7, 93563-1 ####[facility] LABCLIA [id number] [place] [address] [place] Lymphocytes (Bld) [#/Vol] 2.86 10*3/uL Normal 1.00-4.00 [facility] Comment on above: Order Comment: Speci men Type: BLOOD SPECIMENOrdering Facility: [facility] Address: [address] [place] [address] Performed By: #### 4 537-7, 19303-5 ####[facility] LABCLIA [id number] [place] [address] [place] Lymphocytes/100 WBC (Bld) 32.6 % Normal [facility] Comment on above: Order Comment: Speci men Type: BLOOD SPECIMENOrdering Facility: [facility] Address: [address] [place] [address] Performed By: #### 4 537-7, 38955-0 ####[facility] LABIA [id number] [place] [address] [place] MCH (RBC) [Entitic mass] 31.8 pg Normal 26.0-34.0 [facility] Comment on above: Order Comment: Speci men Type: BLOOD SPECIMENOrdering Facility: [facility] Address: [address] [place] [address] Performed By: #### 4 537-7, 78560-9 ####[facility] LABIA [id number] [place] [address] [place] MCHC (RBC) [Mass/Vol] 32.6 g/dL Normal 30.5-36.0 [facility] Comment on above: Order Comment: Speci men Type: BLOOD SPECIMENOrdering Facility: [facility] Address: [address] [place] [address] Performed By: #### 4 537-7, 18873-6 ####[facility] LABCLIA [id number] [place] [address] [address] [place] MCV (RBC) [Entitic vol] 97.4 fL Normal 80.0-100.0 [facility] Comment on above: Order Comment: Speci men Type: BLOOD SPECIMENOrdering Facility: [facility] Address: [address] [place] [address] Performed By: #### 4 537-7, 90888-8 ####[facility] LABCLIA [id number] [place] [address] [place] Monocytes (Bld) [#/Vol] 0.65 10*3/uL Normal <0.87 [facility] Comment on above: Order Comment: Speci men Type: BLOOD SPECIMENOrdering Facility: [facility] Address: [address] [place] [address] Performed By: #### 4 537-7, 18262-2 ####[facility] LABCLIA [id number] [place] [address] [place] Monocytes/100 WBC (Bld) 7.4 % Normal [facility] Comment on above: Order Comment: Speci men Type: BLOOD SPECIMENOrdering Facility: [facility] Address: [address] [place] [address] Performed By: #### 4 537-7, 21807-1 ####[facility] LABCLIA [id number] [place] [address] [place] Neutrophils (Bld) [#/Vol] 5.03 10*3/uL Normal 1.45-7.50 [facility] Comment on above: Order Comment: Speci men Type: BLOOD SPECIMENOrdering Facility: [facility] Address: [address] [place] [address] Performed By: #### 4 537-7, 25458-4 ####[facility] LABCLIA [id number] [place] [address] [place] Neutrophils/100 WBC (Bld) 57.3 % Normal [facility] Comment on above: Order Comment: Speci men Type: BLOOD SPECIMENOrdering Facility: [facility] Address: [address] [place] [address] Performed By: #### 4 537-7, 36413-5 ####[facility] LABIA [id number] [place] [address] [place] Nucleated RBC (Bld) [#/Vol] 10*3/uL Normal <0.01 [facility] Comment on above: Order Comment: Speci men Type: BLOOD SPECIMENOrdering Facility: [facility] Address: [address] [place] [address] Performed By: #### 4 537-7, 67409-2 ####[facility] LABIA [id number] [place] [address] [place] Nucleated RBC/100 WBC (Bld) [Ratio] 0.0 /100 WBC Normal [facility] Comment on above: Order Comment: Speci men Type: BLOOD SPECIMENOrdering Facility: [facility] Address: [address] [place] [address] Performed By: #### 4 537-7, 41142-1 ####[facility] LABIA [id number] [place] [address] [place] Platelet mean volume (Bld) [Entitic vol] 10.2 fL Normal 9.0-12.7 [facility] Comment on above: Order Comment: Speci men Type: BLOOD SPECIMENOrdering Facility: [facility] Address: [address] [place] [address] Performed By: #### 4 537-7, 16321-5 ####[facility] LABIA [id number] [place] [address] [place] Platelets (Bld) [#/Vol] 423 10*3/uL High 150-400 [facility] Comment on above: Order Comment: Speci men Type: BLOOD SPECIMENOrdering Facility: [facility] Address: [address] [place] [address] Performed By: #### 4 537-7, 92952-3 ####[facility] LABCLIA [id number] [place] [id number] [place] RBC (Bld) [#/Vol] 4.28 10*6/uL Normal 3.90-5.20 [facility] Comment on above: Order Comment: Speci men Type: BLOOD SPECIMENOrdering Facility: [facility] Address: [address] [place] [address] Performed By: #### 4 537-7, 52484-7 ####[facility] LABIA [id number] [place] [address] [place] WBC (Bld) [#/Vol] 8.77 10*3/uL Normal 3.70-11.00 [facility] Comment on above: Order Comment: Speci men Type: BLOOD SPECIMENOrdering Facility: [facility] Address: [address] [place] [address] Performed By: #### 4 537-7, 62873-8 ####[facility] LABIA [id number] [place] [address] [place] CK SerPl-cCncon 04-02-2024 CK [Catalytic activity/Vol] 31 U/L Low 42-196 [facility] Comment on above: Order Comment: Speci men Type: BLOOD SPECIMENOrdering Facility: [facility] Address: [address] [place] [address] Performed By: #### C RET1, 1920-8, 2157-6, 1987-5, 1742-6 ####[facility] LABIA [id number] [place] [address] [place] CREATININE BLDon 04-02-2024 Creatinine [Mass/Vol] 0.58 mg/dL Normal 0.58-0.96 [facility] Comment on above: Order Comment: Speci men Type: BLOOD SPECIMENOrdering Facility: [facility] Address: [address] [place] [address] Performed By: #### C RET1, 1920-03, 2157-01, 1987-12, 1742-01 ####[facility] LABCLIA [id number] [place] [address] [place] Creatinine and Glomerular filtration rate.predicted panel (S/P/Bld) 124 mL/min/1.73m??? Normal >=60 [facility] Comment on above: Order Comment: Speci men Type: BLOOD SPECIMENOrdering Facility: [facility] Address: [address] [place] [address] Result Comment: Imelda mated Glomerular Filtration Rate [...] #### C RET1, 1920-03, 2157-01, 1987-12, 1742-01 ####[facility] LABIA [id number] [place] [id number] [place] CRP SerPl-mCncon 04-02-2024 CRP [Mass/Vol] mg/L Normal <0.9 [facility] Comment on above: Order Comment: Krystyna men Type: BLOOD SPECIMENOrdering Facility: [facility] Address: [address] [place] [address] Performed By: #### C RET1, 1920-03, 2157-01, 1987-12, 1742-01 ####[facility] LABCLIA [id number] [place] [id number] [place] ESR Westergren method (Bld) [Velocity]on 04-02-2024 ESR (Bld) [Velocity] 8 mm/h Normal 0-20 [facility] Comment on above: Order Comment: Speci men Type: BLOOD SPECIMENOrdering Facility: [facility] Address: [address] [place] [address] Performed By: #### 4 537-7, 78742-6 ####[facility] LABCLIA [id number] [place] [address] [place] Urinalysis complete panel (U )on 04-02-2024 Bacteria LM.HPF (Urine sed) [#/Area] Negative Normal Negative [facility] Comment on above: Order Comment: Speci men Type: URINE SPECIMENOrdering Facility: [facility] Address: [address] [place] [address] Performed By: #### 2 4356-8 ####[facility] LABCLIA [id number] [place] [address] [place] Bilirubin Ql (U) Negative Normal Negative [facility] Comment on above: Order Comment: Speci men Type: URINE SPECIMENOrdering Facility: [facility] Address: [address] [place] [address] Performed By: #### 2 4356-8 ####[facility] LABCLIA [id number] [place] [address] [place] Clarity (Unsp spec) Clear Normal Clear [facility] Comment on above: Order Comment: Speci men Type: URINE SPECIMENOrdering Facility: [facility] Address: [address] [place] [address] Performed By: #### 2 4356-8 ####[facility] LABCLIA [id number] [place] [address] [place] Color (U) Yellow Normal Yellow [facility] Comment on above: Order Comment: Speci men Type: URINE SPECIMENOrdering Facility: [facility] Address: [address] [place] [address] Performed By: #### 2 4356-8 ####[facility] LABCLIA [id number] [place] [id number] Epithelial cells LM.HPF (Urine sed) [#/Area] None Seen Normal [facility] Comment on above: Order Comment: Speci men Type: URINE SPECIMENOrdering Facility: [facility] Address: [address] [place] [address] Performed By: #### 2 4356-8 ####[facility] LABCLIA [id number] [address] [place] Glucose Test strip (U) [Mass/Vol] Negative Normal Negative [facility] Comment on above: Order Comment: Speci men Type: URINE SPECIMENOrdering Facility: [facility] Address: [address] [place] [address] Performed By: #### 2 4356-8 ####[facility] LABCLIA [id number] [place] [address] [place] Hemoglobin Ql (U) Negative Normal Negative [facility] Comment on above: Order Comment: Speci men Type: URINE SPECIMENOrdering Facility: [facility] Address: [address] [place] [address] Performed By: #### 2 4356-8 ####[facility] LABCLIA [id number] [address] [place] Hyaline casts (Urine sed) [#/Area] 0 /[LPF] Normal 0 /LPF [facility] Comment on above: Order Comment: Speci men Type: URINE SPECIMENOrdering Facility: [facility] Address: [address] [place] [address] Performed By: #### 2 4356-8 ####[facility] LABCLIA [id number] [address] [place] Ketones Ql (U) Negative Normal Negative [facility] Comment on above: Order Comment: Speci men Type: URINE SPECIMENOrdering Facility: [facility] Address: [address] [place] [address] Performed By: #### 2 4356-8 ####[facility] LABCLIA [id number] [place] [address] [place] Leukocyte esterase Test strip Ql (U) Negative Normal Negative [facility] Comment on above: Order Comment: Speci men Type: URINE SPECIMENOrdering Facility: [facility] Address: [address] [place] [address] Performed By: #### 2 4356-8 ####[facility] LABCLIA [id number] [place] [address] [place] Nitrite Ql (U) Negative Normal Negative [facility] Comment on above: Order Comment: Speci men Type: URINE SPECIMENOrdering Facility: [facility] Address: [address] [place] [address] Performed By: #### 2 4356-8 ####[facility] LABCLIA [id number] [place] [address] [place] pH (U) 6.0 [pH] Normal <8.5 [facility] Comment on above: Order Comment: Speci men Type: URINE SPECIMENOrdering Facility: [facility] Address: [address] [place] [address] Performed By: #### 2 4356-8 ####[facility] LABCLIA [id number] [place] [address] [place] Protein (U) [Mass/Vol] Negative Normal Negative [facility] Comment on above: Order Comment: Speci men Type: URINE SPECIMENOrdering Facility: [facility] Address: [address] [place] [address] Performed By: #### 2 4356-8 ####[facility] LABCLIA [id number] [place] [address] [place] RBC LM.HPF (Urine sed) [#/Area] 0-2 /HPF Normal 0-2 /HPF [facility] Comment on above: Order Comment: Speci men Type: URINE SPECIMENOrdering Facility: [facility] Address: [address] [place] [address] Performed By: #### 2 4356-8 ####[facility] [id number] [place] [address] [place] Specific gravity (U) [Rel density] 1.010 Normal 1.005-1.030 [facility] Comment on above: Order Comment: Speci men Type: URINE SPECIMENOrdering Facility: [facility] Address: [address] [place] [address] Performed By: #### 2 4356-8 ####[facility] [id number] [place] [address] [place] Urobilinogen Ql (U) 0.2 EU/dL Normal 0.2-1.0 EU/dL [facility] Comment on above: Order Comment: Speci men Type: URINE SPECIMENOrdering Facility: [facility] Address: [address] [place] [address] Performed By: #### 2 4356-8 ####[facility] [id number] [place] [address] [place] WBC LM.HPF (Urine sed) [#/Area] 0-5 /HPF Normal 0-5 /HPF [facility] Comment on above: Order Comment: Speci men Type: URINE SPECIMENOrdering Facility: [facility] Address: [address] [place] [address] Performed By: #### 2 4356-8 ####[facility] [id number] [place] [address] [place] XR CHEST 2V FRONTAL/LATon XR CHEST 2V FRONTAL/LAT Normal [facility] XR Chest PA and Lateralon IMPRESSION: No acute radiographic abnormality. Ammonia Nitrate Operator: REUBEN Transcribe Date/Time: Apr 02 2024 3:48P [...] soft tissues: Unremarkable. DIVISION OF RADIOLOGY Provider, [facility] - 04/02/2024 * * *Final Report* * [...] Unremarkable. IMPRESSION IMPRESSION: No acute radiographic abnormality. Ammonia Nitrate Operator: PSCB Transcribe Date/Time: Apr 02 2024 3:48P Dictated by : LOU JUARES MD This examination was interpreted and the report reviewed and electronically signed by: LOU JUARES MD on Apr 02 2024 3:49PM EST [facility] Radiology Study observation (narrative) [facility] XR Chest PA and LateralOrder ed By: Ccf Provider on [facility]-2024 [facility] CNNURSE Normal [facility] CNPNon 03-29-2024 CNPN Normal [facility] CNOVon 03-15-2024 CNOV Normal [facility] SURGICAL PATHOLOGYon 024 CASE REPORT Normal [facility] Comment on above: Order Comment: Speci men Type: TISSUE SPECIMENOrdering Facility: [facility] Address: [address] [place] [address] Result Comment: Surg ical Pathology Report Case: [id number] Provider: Karen Jenkins MD Collected: 03/15/2024 10:31 AMOrdering Location: OB/Gynecology Received: 03/15/2024 11:41 AMPathologist: [place] MDSpecimens: A) - Cervix, Biopsy, 12 oclock B) - Endocervix, Curettings Performed By: #### S ####[facility] LABCLIA [id number] [address] [place] CLINICAL HISTORY hpv pos Normal [facility] Comment on above: Order Comment: Speci men Type: TISSUE SPECIMENOrdering Facility: [facility] Address: [address] [place] [address] Performed By: #### S ####[facility] LABCLIA [id number] [address] [place] FINAL DIAGNOSIS Normal [facility] Comment on above: Order Comment: Speci men Type: TISSUE SPECIMENOrdering Facility: [facility] Address: [address] [place] [address] Result Comment: A. C ervix, biopsy at 12:00:- Benign ectocervix.B. Endocervix, curettings:- Benign endocervical epithelium.ACV/mm/03/16/2024 Performed By: #### S ####[facility] LABCLIA [id number] [place] [address] [place] FINAL PERFORMING LAB Normal [facility] Comment on above: Order Comment: Speci men Type: TISSUE SPECIMENOrdering Facility: [facility] Address: [address] [place] [address] Result Comment: Diag nostic interpretation performed at [facility], [address] [place] [address] CLIA# [id number] Director: Nito Chamberlain M.D. Performed By: #### S ####[facility] LABCLIA [id number] [place] [address] [place] GROSS DESCRIPTION Normal [facility] Comment on above: Order Comment: Speci men Type: TISSUE SPECIMENOrdering Facility: [facility] Address: [address] [place] [address] Result Comment: A. C ervix, BiopsyReceived in formalin is one piece of salazar, soft mucosal covered tissue measuring 0.7 x 0.5 x 0.3 cm. Totally submitted in one cassette.B. Endocervix, CurettingsReceived in formalin are multiple salazar-white, soft feathery segments of tissue aggregating to 0.5 x 0.3 by less than 0.1 cm. Totally submitted in one cassette.Gross examination performed at [facility], [address] [place], [place] [id number] 03/15/2024 10:36 PM Performed By: #### S ####[facility] LABCLIA [id number] [place] [id number] [place] UA DIP,URINE HCG (POC)on Beta HCG ( test) Ql (U) Negative Negative [facility] Comment on above: Location:[facility], [address] , [place], [address] Bradder (POCT) Internal QC OK [facility] Location:[facility], [address] , [place], [address] [facility] POINT OF CARE [facility] CNOVon 03-12-2024 CNOV Normal [facility] CNPNon 03-12-2024 CNPN Normal [facility] CNOVon 02-27-2024 CNOV Normal [facility] HIGH RISK HUMAN PAPILLOMA LEYDA (HPV), PCR FOR DETECTION AND GENOTYPINGon 02-27-2024 HPV 16 Ag Ql (Unsp spec) Not detected Normal Not detected [facility] Comment on above: Order Comment: Speci men Type: FLUID SPECIMENOrdering Facility: [facility] Address: [address] [place] [address] Performed By: #### H PVHRT, [id number] ####[facility] LABCLIA [id number] [place] [address] [place] HPV 18 Ag Ql (Unsp spec) Not detected Normal Not detected [facility] Comment on above: Order Comment: Speci men Type: FLUID SPECIMENOrdering Facility: [facility] Address: [address] [place] [address] Performed By: #### H PVHRT, [id number] ####[facility] LABCLIA [id number] [place] [address] [place] HPV 31+33+35+39+45+51+52+ 56+58+59+66+68 DNA JOSSIE+probe Ql (Cvx) Detected Abnormal Not detected [facility] Comment on above: Order Comment: Speci men Type: FLUID SPECIMENOrdering Facility: [facility] Address: [address] [place] [address] Result Comment: High Risk HPV Other Type includes HPV types 31, 33, 35, 39, 45, 51, 52, 56, 58, 59, 66 and 68. Performed By: #### H PVHRT, [id number] ####[facility] LABCLIA [id number] [place] [address] [place] PAP TESTon 02-27-2024 ADEQUACY Satisfactory for interpretation. Normal [facility] Comment on above: Order Comment: Speci men Type: FLUID SPECIMENOrdering Facility: [facility] Address: [address] [place] [address] Performed By: #### H PVHRT, [id number] ####[facility] LABCLIA [id number] [place] [address] [place] CASE REPORT Normal [facility] Comment on above: Order Comment: Speci men Type: FLUID SPECIMENOrdering Facility: [facility] Address: [address] [place] [address] Result Comment: Gyne cologic Cytology Report Case: [id number] Provider: Ayaan Rowley APRN.CNM Collected: 02/27/2024 03:56 PMOrdering Location: OB/Gynecology Received: 02/27/2024 04:47 PMFirst Screen: Gladkelba, Yesenia, CT, ASCPRescreen: Autumn Beck LSpecimen: Pap Test, ThinPrep, Cervix Performed By: #### H PVHRT, [id number] ####[facility] LABCLIA [id number] [place] [address] [place] CLINICAL HISTORY, CYTOLOGY, BEAD FLIPPER Positive Normal [facility] Comment on above: Order Comment: Speci men Type: FLUID SPECIMENOrdering Facility: [facility] Address: [address] [place] [address] Result Comment: Intr a Uterine Device, No Menses Performed By: #### H PVHRT, [id number] ####[facility] LABCLIA [id number] [place] [address] [place] FINAL PERFORMING LAB Normal [facility] [facility] Comment on above: Order Comment: Speci men Type: FLUID SPECIMENOrdering Facility: [facility] Address: [address] [place] [address] Result Comment: Tech nical component, switch cleaner screening performed at [facility], [address] [place], [place] [id number] CLIA# [id number] interpretation performed at [facility], [address] [place], [place] [id number] CLIA# [id number] Director: Nito Chamberlain M.D. Performed By: #### H PVHRT, [id number] ####[facility] LABCLIA [id number] [address] [place] [address] [address] [place] HPV REFLEX Yes HPV Normal [facility] Comment on above: Order Comment: Speci men Type: FLUID SPECIMENOrdering Facility: [facility] Address: [address] [place] [address] Performed By: #### H PVHRT, [id number] ####[facility] LABCLIA [id number] [address] [place] [address] [address] [place] INTERPRETATION, CYTOLOGY, BEAD FLIPPER Normal [facility] Comment on above: Order Comment: Speci men Type: FLUID SPECIMENOrdering Facility: [facility] Address: [address] [place] [address] Result Comment: Nega tive for intraepithelial lesion or malignancy. Performed By: #### H PVHRT, [id number] ####[facility] LABCLIA [id number] [place] [address] [place] PAP DISCLAIMER COMMENT The Pap Smear is a screening test for cervical cancer. False negative results occur with all screening tests, emphasizing the need for rescreening at recommended intervals, and clinical correlation. Normal [facility] Comment on above: Order Comment: Speci men Type: FLUID SPECIMENOrdering Facility: [facility] Address: [address] [place] [address] Performed By: #### H PVHRT, [id number] ####[facility] LABCLIA [id number] [place] [id number] [place] PAP AUTOMATIC PRINT DEVELOPER COMMENT Normal [facility] Comment on above: Order Comment: Speci men Type: FLUID SPECIMENOrdering Facility: [facility] Address: [address] [place] [address] Performed By: #### H PVHRT, [id number] ####[facility] LABCLIA [id number] [place] [address] [place] 25(OH)D3 SerPl-mCncon 2023 25-hydroxyvitamin D3 [Mass/Vol] 18.0 ng/mL Low 31.0-80.0 [facility] Comment on above: Order Comment: Speci men Type: BLOOD SPECIMENOrdering Facility: [facility] Address: [address] [place] [address] Result Comment: Clas sification of 25 OH Vitamin D status:Deficiency/Insufficiency: < or = 30 ng/ml.Sufficiency/Optimal Levels: 31-80 ng/mLToxicity: > 100 ng/mL.Test performed by chemiluminescent immunoassay. Performed By: #### 1 989-3 ####[facility] LABCLIA [id number] [place] [address] [place] ALGN KIWI IGEon 02-09-2024 Kiwifruit IgE Qn (S) <0.35 Normal <0.35 [facility] Comment on above: Order Comment: Speci men Type: BLOOD SPECIMENOrdering Facility: [facility] Address: [address] [place] [address] Performed By: #### 6 035-0, SULMA LATEXA ####[facility] LABCLIA [id number] [place] [address] [place] Kiwifruit IgE RAST class (S) Class 0 Normal Class 0 [facility] Comment on above: Order Comment: Speci men Type: BLOOD SPECIMENOrdering Facility: [facility] Address: [address] [place] [address] Performed By: #### 6 035-0, SULMA LATEXA ####[facility] LABCLIA [id number] [place] [address] [place] ALGN LATEX IGEon 02-09-2024 Latex IgE Qn (S) <0.35 Normal <0.35 [facility] Comment on above: Order Comment: Speci men Type: BLOOD SPECIMENOrdering Facility: [facility] Address: [address] [place] [address] Performed By: #### 6 035-0, SULMA LATEXA ####[facility] LABCLIA [id number] [place] [address] [place] Latex IgE RAST class (S) Class 0 Normal Class 0 [facility] Comment on above: Order Comment: Speci men Type: BLOOD SPECIMENOrdering Facility: [facility] Address: [address] [place] [address] Performed By: #### 6 035-0, SULMA LATEXA ####[facility] LABCLIA [id number] [place] [address] [place] ALT SerPl-cCncon 02-09-2024 ALT [Catalytic activity/Vol] 30 U/L Normal 7-38 [facility] Comment on above: Order Comment: Speci men Type: BLOOD SPECIMENOrdering Facility: [facility] Address: [address] [place] [address] Performed By: #### 2 4321-2, 3024-7, 3051-0, 1742-6 ####[facility] LABCLIA [id number] [place] [address] [place] AST SerPl-cCncon 02-09-2024 AST [Catalytic activity/Vol] 31 U/L Normal 13-35 [facility] Comment on above: Order Comment: Speci men Type: BLOOD SPECIMENOrdering Facility: [facility] Address: [address] [place] [address] Performed By: #### 1 988-5, 1920-8 ####[facility] LABCLIA [id number] [place] [address] [place] Banana IgE Qnon 02-09-2024 Banana IgE Qn (S) <0.35 Normal <0.35 [facility] Comment on above: Order Comment: Speci men Type: BLOOD SPECIMENOrdering Facility: [facility] Address: [address] [place] [address] Performed By: #### 6 035-0, YANCI OZUNA ####[facility] LABCLIA [id number] [place] [address] [place] Banana IgE Qn (S)on 02-09-20 Banana IgE RAST class (S) Class 0 Normal Class 0 [facility] Comment on above: Order Comment: Speci men Type: BLOOD SPECIMENOrdering Facility: [facility] Address: [address] [place] [address] Performed By: #### 6 035-0, YANCI OZUNA ####[facility] LABCLIA [id number] [place] [address] [place] Basic metabolic 2000 panelon 02-09-2024 Anion gap [Moles/Vol] 13 mmol/L Normal 8-15 [facility] Comment on above: Order Comment: Speci men Type: BLOOD SPECIMENOrdering Facility: [facility] Address: [address] [place] [address] Performed By: #### 2 4321-2, 3024-7, 3051-0, 1742-6 ####[facility] LABIA [id number] [place] [address] [place] Calcium [Mass/Vol] 10.1 mg/dL Normal 8.5-10.2 [facility] Comment on above: Order Comment: Speci men Type: BLOOD SPECIMENOrdering Facility: [facility] Address: [address] [place] [address] Performed By: #### 2 4321-2, 3024-7, 3051-0, 1742-6 ####[facility] LABCLIA [id number] [place] [address] [place] Chloride [Moles/Vol] 105 mmol/L Normal 98-107 [facility] Comment on above: Order Comment: Speci men Type: BLOOD SPECIMENOrdering Facility: [facility] Address: [address] [place], [place] [address] Performed By: #### 2 4321-2, 3024-7, 3051-0, 2-6 ####[facility] LABIA [id number] [address] [place] [address] [address] [place] CO2 [Moles/Vol] 20 mmol/L Low 22-30 [facility] Comment on above: Order Comment: Speci men Type: BLOOD SPECIMENOrdering Facility: [facility] Address: [address] [place], [place] [address] Performed By: #### 2 4321-2, 3024-7, 3051-0, 2-6 ####[facility] [id number] [place] [id number] [place] Creatinine [Mass/Vol] 0.60 mg/dL Normal 0.58-0.96 [facility] Comment on above: Order Comment: Speci men Type: BLOOD SPECIMENOrdering Facility: [facility] Address: [address] [place] [address] Performed By: #### 2 4321-2, 3024-7, 305-0, 6 ####[facility] [id number] [place] [id number] [place] Creatinine and Glomerular filtration rate.predicted panel (S/P/Bld) 123 mL/min/1.73m??? Normal >=60 [facility] Comment on above: Order Comment: Speci men Type: BLOOD SPECIMENOrdering Facility: [facility] Address: [address] [place] [address] Result Comment: Imelda mated Glomerular Filtration Rate [...] By: #### 2 4321-2, 3024-7, 3051-0, 1741-6 ####[facility] LABCLIA [id number] [address] [place] [address] [place] Glucose [Mass/Vol] 95 mg/dL Normal 74-99 [facility] Comment on above: Order Comment: Krystyna armstrong Type: BLOOD SPECIMENOrdering Facility: [facility] Address: [address] [place] [address] Result Comment: The [place] [employer] (ADA) provides guidance for cutoff [...] Standards of Medical Care in Diabetes 2016, [place] [employer]. Diabetes Care. 2016.39(Suppl 1). Performed By: #### 2 4321-2, 3024-7, 3050-0, 1741-6 ####[facility] LABCLIA [id number] [address] [address] [place] Potassium [Moles/Vol] 4.5 mmol/L Normal 3.7-5.1 [facility] Comment on above: Order Comment: Krystyna amrstrong Type: BLOOD SPECIMENOrdering Facility: [facility] Address: [address] [place] [address] Performed By: #### 2 4321-2, 3024-7, 305-0, 1741-6 ####[facility] LABCLIA [id number] [address] [place] [address] [place] Sodium [Moles/Vol] 138 mmol/L Normal 136-144 [facility] Comment on above: Order Comment: Speci men Type: BLOOD SPECIMENOrdering Facility: [facility] Address: [address] [place] [address] Performed By: #### 2 4321-2, 3024-7, 3051-0, 1742-6 ####[facility] LABCLIA [id number] [place] [address] [place] Urea nitrogen [Mass/Vol] 9 mg/dL Normal 7-21 [facility] Comment on above: Order Comment: Speci men Type: BLOOD SPECIMENOrdering Facility: [facility] Address: [address] [place] [address] Performed By: #### 2 4321-2, 3024-7, 3051-0, 2-6 ####[facility] LABCLIA [id number] [place] [address] [place] CBC W Auto Differential pane l (Bld)on 02-09-2024 Basophils (Bld) [#/Vol] 0.06 10*3/uL Normal <0.11 [facility] Comment on above: Order Comment: Speci men Type: BLOOD SPECIMENOrdering Facility: [facility] Address: [address] [place] [address] Performed By: #### 4 537-7, 96994-5 ####[facility] LABCLIA [id number] [place] [address] [place] Basophils/100 WBC (Bld) 1.0 % Normal [facility] Comment on above: Order Comment: Speci men Type: BLOOD SPECIMENOrdering Facility: [facility] Address: [address] [place] [address] Performed By: #### 4 537-7, 85611-6 ####[facility] LABCLIA [id number] [place] [address] [place] Differential cell count method Nom (Bld) Auto Normal [facility] Comment on above: Order Comment: Speci men Type: BLOOD SPECIMENOrdering Facility: [facility] Address: [address] [place] [address] Performed By: #### 4 537-7, 30497-3 ####[facility] LABCLIA [id number] [place] [address] [place] Eosinophils (Bld) [#/Vol] 0.08 10*3/uL Normal <0.46 [facility] Comment on above: Order Comment: Speci men Type: BLOOD SPECIMENOrdering Facility: [facility] Address: [address] [place] [address] Performed By: #### 4 537-7, 47014-1 ####[facility] LABCLIA [id number] [place] [address] [place] Eosinophils/100 WBC (Bld) 1.3 % Normal [facility] Comment on above: Order Comment: Speci men Type: BLOOD SPECIMENOrdering Facility: [facility] Address: [address] [place] [address] Performed By: #### 4 537-7, 81258-6 ####[facility] LABIA [id number] [place] [address] [place] Erythrocyte distribution width (RBC) [Ratio] 12.3 % Normal 11.5-15.0 [facility] Comment on above: Order Comment: Speci men Type: BLOOD SPECIMENOrdering Facility: [facility] Address: [address] [place] [address] Performed By: #### 4 537-7, 00383-1 ####[facility] LABIA [id number] [place] [address] [place] Hematocrit (Bld) [Volume fraction] 42.1 % Normal 36.0-46.0 [facility] Comment on above: Order Comment: Speci men Type: BLOOD SPECIMENOrdering Facility: [facility] Address: [address] [place] [address] Performed By: #### 4 537-7, 47540-3 ####[facility] LABCLIA [id number] [place] [address] [place] Hemoglobin (Bld) [Mass/Vol] 14.2 g/dL Normal 11.5-15.5 [facility] Comment on above: Order Comment: Speci men Type: BLOOD SPECIMENOrdering Facility: [facility] Address: [address] [place] [address] Performed By: #### 4 537-7, 56549-0 ####[facility] LABCLIA [id number] [place] [address] [place] Immature granulocytes (Bld) [#/Vol] 10*3/uL Normal <0.10 [facility] Comment on above: Order Comment: Speci men Type: BLOOD SPECIMENOrdering Facility: [facility] Address: [address] [place] [address] Performed By: #### 4 537-7, 86702-6 ####[facility] LABCLIA [id number] [place] [address] [place] Immature granulocytes/100 WBC (Bld) 0.2 % Normal [facility] Comment on above: Order Comment: Speci men Type: BLOOD SPECIMENOrdering Facility: [facility] Address: [address] [place] [address] Performed By: #### 4 537-7, 66410-6 ####[facility] LABCLIA [id number] [place] [id number] [place] Lymphocytes (Bld) [#/Vol] 2.11 10*3/uL Normal 1.00-4.00 [facility] Comment on above: Order Comment: Speci men Type: BLOOD SPECIMENOrdering Facility: [facility] Address: [address] [place] [address] Performed By: #### 4 537-7, 59777-0 ####[facility] LABCLIA [id number] [place] [address] [place] Lymphocytes/100 WBC (Bld) 34.1 % Normal [facility] Comment on above: Order Comment: Speci men Type: BLOOD SPECIMENOrdering Facility: [facility] Address: [address] [place] [address] Performed By: #### 4 537-7, 04601-7 ####[facility] LABCLIA [id number] [place] [address] [place] MCH (RBC) [Entitic mass] 31.2 pg Normal 26.0-34.0 [facility] Comment on above: Order Comment: Speci men Type: BLOOD SPECIMENOrdering Facility: [facility] Address: [address] [place] [address] Performed By: #### 4 537-7, 56445-1 ####[facility] LABCLIA [id number] [place] [address] [place] MCHC (RBC) [Mass/Vol] 33.7 g/dL Normal 30.5-36.0 [facility] Comment on above: Order Comment: Speci men Type: BLOOD SPECIMENOrdering Facility: [facility] Address: [address] [place] [address] Performed By: #### 4 537-7, 48975-4 ####[facility] LABCLIA [id number] [place] [address] [place] MCV (RBC) [Entitic vol] 92.5 fL Normal 80.0-100.0 [facility] Comment on above: Order Comment: Speci men Type: BLOOD SPECIMENOrdering Facility: [facility] Address: [address] [place] [address] Performed By: #### 4 537-7, 16105-4 ####[facility] LABCLIA [id number] [place] [address] [place] Monocytes (Bld) [#/Vol] 0.52 10*3/uL Normal <0.87 [facility] Comment on above: Order Comment: Speci men Type: BLOOD SPECIMENOrdering Facility: [facility] Address: [address] [place] [address] Performed By: #### 4 537-7, 07261-9 ####[facility] LABCLIA [id number] [place] [address] [place] Monocytes/100 WBC (Bld) 8.4 % Normal [facility] Comment on above: Order Comment: Speci men Type: BLOOD SPECIMENOrdering Facility: [facility] Address: [address] [place] [address] Performed By: #### 4 537-7, 50839-7 ####[facility] LABCLIA [id number] [place] [address] [place] Neutrophils (Bld) [#/Vol] 3.41 10*3/uL Normal 1.45-7.50 [facility] Comment on above: Order Comment: Speci men Type: BLOOD SPECIMENOrdering Facility: [facility] Address: [address] [place] [address] Performed By: #### 4 537-7, 16066-2 ####[facility] LABCLIA [id number] [place] [address] [place] Neutrophils/100 WBC (Bld) 55.0 % Normal [facility] Comment on above: Order Comment: Speci men Type: BLOOD SPECIMENOrdering Facility: [facility] Address: [address] [place] [address] Performed By: #### 4 537-7, 63125-9 ####[facility] LABCLIA [id number] [place] [address] [place] Nucleated RBC (Bld) [#/Vol] 10*3/uL Normal <0.01 [facility] Comment on above: Order Comment: Speci men Type: BLOOD SPECIMENOrdering Facility: [facility] Address: [address] [place] [address] Performed By: #### 4 537-7, 93855-9 ####[facility] LABIA [id number] [place] [address] [place] Nucleated RBC/100 WBC (Bld) [Ratio] 0.0 /100 WBC Normal [facility] Comment on above: Order Comment: Speci men Type: BLOOD SPECIMENOrdering Facility: [facility] Address: [address] [place] [address] Performed By: #### 4 537-7, 09377-6 ####[facility] LABIA [id number] [place] [address] [place] Platelet mean volume (Bld) [Entitic vol] 10.7 fL Normal 9.0-12.7 [facility] Comment on above: Order Comment: Speci men Type: BLOOD SPECIMENOrdering Facility: [facility] Address: [address] [place] [address] Performed By: #### 4 537-7, 57964-5 ####[facility] LABIA [id number] [place] [address] [place] Platelets (Bld) [#/Vol] 428 10*3/uL High 150-400 [facility] Comment on above: Order Comment: Speci men Type: BLOOD SPECIMENOrdering Facility: [facility] Address: [address] [place] [address] Performed By: #### 4 537-7, 04493-3 ####[facility] LABIA [id number] [place] [address] [place] RBC (Bld) [#/Vol] 4.55 10*6/uL Normal 3.90-5.20 [facility] Comment on above: Order Comment: Speci men Type: BLOOD SPECIMENOrdering Facility: [facility] Address: [address] [place] [address] Performed By: #### 4 537-7, 38719-2 ####[facility] LABCLIA [id number] [place] [address] [place] WBC (Bld) [#/Vol] 6.19 10*3/uL Normal 3.70-11.00 [facility] Comment on above: Order Comment: Speci men Type: BLOOD SPECIMENOrdering Facility: [facility] Address: [address] [place] [address] Performed By: #### 4 537-7, 43667-7 ####[facility] LABIA [id number] [place] [address] [place] CRP [facility] CRP [Mass/Vol] mg/L Normal <0.9 [facility] Comment on above: Order Comment: Speci men Type: BLOOD SPECIMENOrdering Facility: [facility] Address: [address] [place] [address] Performed By: #### 1 988-5, 1920-8 ####[facility] [id number] [place] [address] [place] ESR Westergren method (Bld) [Velocity]on 02-09-2024 ESR (Bld) [Velocity] 2 mm/h Normal 0-20 [facility] Comment on above: Order Comment: Speci men Type: BLOOD SPECIMENOrdering Facility: [facility] Address: [address] [place] [address] Performed By: #### 4 537-7, 71721-2 ####[facility] LABIA [id number] [place] [address] [place] T3Free SerPl-mCncon 02-09-20 24 Free T3 [Mass/Vol] 3.6 pg/mL Normal 2.3-4.1 [facility] Comment on above: Order Comment: Speci men Type: BLOOD SPECIMENOrdering Facility: [facility] Address: [address] [place] [address], [place] [address] Performed By: #### 2 4321-2, 3024-7, 3051-0, 1742-6 ####[facility] LABCLIA [id number] [address] [address] [place] T4 Free SerPl-mCncon 27-2 024 Free T4 [Mass/Vol] 1.1 ng/dL Normal 0.9-1.7 [facility] Comment on above: Order Comment: Speci men Type: BLOOD SPECIMENOrdering Facility: [facility] Address: [address] [place] [id number] Performed By: #### 2 4321-2, 3024-7, 3051-0, 1742-6 ####[facility] LABCLIA [id number] [place] [id number] [place] XR Shoulder - left 2 Viewson 10-16-2023 IMPRESSION: 1. No acute radiographic abnormality of the left shoulder Ammonia Nitrate Operator: REUBEN Transcribe Date/Time: Oct 16 2023 2:20P Dictated by : ELIAS ARNOLD MD This examination was interpreted and the report reviewed and electronically signed by: ELAIS ARNOLD MD on Oct 16 2023 2:21PM [facility] DIVISION OF RADIOLOGY * * [...] within normal limits. DIVISION OF RADIOLOGY Provider, [facility] Alfred Dupuyer - 10/16/2023 * * *Final Report* * [...] acute radiographic abnormality of the left shoulder Ammonia Nitrate Operator: PSCB Transcribe Date/Time: Oct 16 2023 2:20P Dictated by : ELIAS ARNOLD MD This examination was interpreted and the report reviewed and electronically signed by: ELIAS ARNOLD MD on Oct 16 2023 2:21PM EST [facility] XR Shoulder - left 2 ViewsOr dered By: Ccf Provider on 10-16-2023 [facility] XR Shoulder - left 2 Viewson 10-14-2023 Radiology Study observation (narrative) [facility] PELVIC US WHIon 07-25-2023 [facility] No Panel Informationon 06-06 [facility] ALLIED HEALTHon 05-19-2023 ALLIED HEALTH HNO ID: [id number] Author: Jose Herrera Tech Service: ? Author [...] Fuchs May 19, 2023 1:12 AM Normal [facility] CBC panel Auto (Bld)on 05-19 Erythrocyte distribution width (RBC) [Ratio] 12.2 % Normal 11.5-15.0 [facility] Comment on above: Order Comment: Speci men Type: BLOOD SPECIMENOrdering Facility: [facility] Address: [address] [place] [address] Performed By: #### 5 8410-2 ####JEW LABORATORYCLIA [id number] [address] [place] [address] [place] Hematocrit (Bld) [Volume fraction] 41.1 % Normal 36.0-46.0 [facility] Comment on above: Order Comment: Speci men Type: BLOOD SPECIMENOrdering Facility: [facility] Address: [address] [place] [address] Performed By: #### 5 8410-2 ####JEW LABORATORYCLIA [id number] [place] [id number] [facility] [place] Hemoglobin (Bld) [Mass/Vol] 13.5 g/dL Normal 11.5-15.5 [facility] Comment on above: Order Comment: Speci men Type: BLOOD SPECIMENOrdering Facility: [facility] Address: [address] [place] [address] Performed By: #### 5 8410-2 ####JEW LABORATORYCLIA [id number] [place] [id number] [place] MCH (RBC) [Entitic mass] 31.1 pg Normal 26.0-34.0 [facility] Comment on above: Order Comment: Speci men Type: BLOOD SPECIMENOrdering Facility: [facility] Address: [address] [place] [address] Performed By: #### 5 8410-2 ####JEW LABORATORYCLIA [id number] [place] [address] [place] MCHC (RBC) [Mass/Vol] 32.8 g/dL Normal 30.5-36.0 [facility] Comment on above: Order Comment: Speci men Type: BLOOD SPECIMENOrdering Facility: [facility] Address: [address] [place] [address] Performed By: #### 5 8410-2 ####JEW LABORATORYCLIA [id number] [address] [place], [place] [address] [place] MCV (RBC) [Entitic vol] 94.7 fL Normal 80.0-100.0 [facility] Comment on above: Order Comment: Speci men Type: BLOOD SPECIMENOrdering Facility: [facility] Address: [address] [place] [address] Performed By: #### 5 8410-2 ####JEW LABORATORYCLIA [id number] [address] [place] [address] [place] Nucleated RBC (Bld) [#/Vol] 10*3/uL Normal <0.01 [facility] Comment on above: Order Comment: Speci men Type: BLOOD SPECIMENOrdering Facility: [facility] Address: [address] [place] [address] Performed By: #### 5 8410-2 ####JEW LABORATORYCLIA [id number] [address] [place] [address] [place] Platelet mean volume (Bld) [Entitic vol] 9.9 fL Normal 9.0-12.7 [facility] Comment on above: Order Comment: Speci men Type: BLOOD SPECIMENOrdering Facility: [facility] Address: [address] [place] [address] Performed By: #### 5 8410-2 ####JEW LABORATORYCLIA [id number] [place] [address] [place] Platelets (Bld) [#/Vol] 510 10*3/uL High 150-400 [facility] Comment on above: Order Comment: Speci men Type: BLOOD SPECIMENOrdering Facility: [facility] Address: [address] [place] [address] Performed By: #### 5 8410-2 ####JEW LABORATORYCLIA [id number] [address] [place], [place] [address] [place] RBC (Bld) [#/Vol] 4.34 10*6/uL Normal 3.90-5.20 [facility] Comment on above: Order Comment: Speci men Type: BLOOD SPECIMENOrdering Facility: [facility] Address: [place] [address] Performed By: #### 5 8410-2 ####JEW LABORATORYCLIA [id number] [place] [id number] [place] WBC (Bld) [#/Vol] 12.65 10*3/uL High 3.70-11.00 [facility] Comment on above: Order Comment: Speci men Type: BLOOD SPECIMENOrdering Facility: [facility] Address: [place] [address] Performed By: #### 5 8410-2 ####JEW LABORATORYCLIA [id number] [place] [address] [place] Comprehensive metabolic 2000 panelon 05-19-2023 Albumin [Mass/Vol] 4.1 g/dL Normal 3.9-4.9 [facility] Comment on above: Order Comment: Speci men Type: BLOOD SPECIMENOrdering Facility: [facility] Address: [address] [place] [address] Performed By: #### 3 016-3, 90026-9, , [id number] ####JEW LABORATORYCLIA [id number] [place] [id number] [place] ALP [Catalytic activity/Vol] 104 U/L Normal 34-123 [facility] Comment on above: Order Comment: Speci men Type: BLOOD SPECIMENOrdering Facility: [facility] Address: [address] [place] [address] Performed By: #### 3 016-3, 14096-9, , [id number] ####JEW LABORATORYCLIA [id number] [place] [id number] [place] ALT [Catalytic activity/Vol] 22 U/L Normal 7-38 [facility] Comment on above: Order Comment: Speci men Type: BLOOD SPECIMENOrdering Facility: [facility] Address: [address] [place], [place] [address] [address] Performed By: #### 3 016-3, 15143-2, 76190-5, [id number] ####JEW LABORATORYCLIA [id number] [place] [id number] [place] Anion gap [Moles/Vol] 12 mmol/L Normal 9-18 [facility] Comment on above: Order Comment: Speci men Type: BLOOD SPECIMENOrdering Facility: [facility] Address: [address] [place] [address] Performed By: #### 3 016-3, 96438-7, , [id number] ####JEW LABORATORYCLIA [id number] [place] [id number] [place] AST [Catalytic activity/Vol] 19 U/L Normal 13-35 [facility] Comment on above: Order Comment: Speci men Type: BLOOD SPECIMENOrdering Facility: [facility] Address: [address] [place] [address] Performed By: #### 3 016-3, 32483-1, , [id number] ####JEW LABORATORYCLIA [id number] [place] [id number] [place] Bilirubin [Mass/Vol] mg/dL Low 0.2-1.3 [facility] Comment on above: Order Comment: Speci men Type: BLOOD SPECIMENOrdering Facility: [facility] Address: [place] [address] Performed By: #### 3 016-3, 50310-4, 57315-8, [id number] ####JEW LABORATORYCLIA [id number] [place] [id number] [place] Calcium [Mass/Vol] 9.2 mg/dL Normal 8.5-10.2 [facility] Comment on above: Order Comment: Speci men Type: BLOOD SPECIMENOrdering Facility: [facility] Address: [address] [place] [address] Performed By: #### 3 016-3, 67238-4, 14669-7, [id number] ####JEW LABORATORYCLIA [id number] [place] [id number] [place] Chloride [Moles/Vol] 106 mmol/L High 97-105 [facility] Comment on above: Order Comment: Speci men Type: BLOOD SPECIMENOrdering Facility: [facility] Address: [address] [place] [address] Performed By: #### 3 016-3, 92166-0, 44795-6, [id number] ####JEW LABORATORYCLIA [id number] [place] [id number] [place] CO2 [Moles/Vol] 21 mmol/L Low 22-30 [facility] Comment on above: Order Comment: Speci men Type: BLOOD SPECIMENOrdering Facility: [facility] Address: [address] [place] [address] Performed By: #### 3 016-3, 30928-3, 34225-7, [id number] ####JEW LABORATORYCLIA [id number] [place] [address] [place] Creatinine [Mass/Vol] 0.50 mg/dL Low 0.58-0.96 [facility] Comment on above: Order Comment: Speci men Type: BLOOD SPECIMENOrdering Facility: [facility] Address: [address] [place] [address] Performed By: #### 3 016-3, 19029-3, 17162-2, [id number] ####JEW LABORATORYCLIA [id number] [place] [id number] [place] Creatinine and Glomerular filtration rate.predicted panel (S/P/Bld) 130 mL/min/1.73m??? Normal >=60 [facility] Comment on above: Order Comment: Speci men Type: BLOOD SPECIMENOrdering Facility: [facility] Address: [address] [place] [address] Result Comment: Imelda mated Glomerular Filtration Rate [...] actual GFR. Performed By: #### 3 016-3, 49252-1, , [id number] ####JEW LABORATORYCLIA [id number] [place] [id number] [place] Glucose [Mass/Vol] 135 mg/dL High 74-99 [facility] Comment on above: Order Comment: Krystyna armstrong Type: BLOOD SPECIMENOrdering Facility: [facility] Address: [address] [place] [address] Result Comment: The [place] Diabetes Association (ADA) provides guidance for cutoff [...] Standards of Medical Care in Diabetes 2016, [place] [employer] Association. Diabetes Care. 2016.39(Suppl 1). Performed By: #### 3 016-3, 37651-7, , [id number] ####JEW LABORATORYCLIA [id number] [place] [id number] [place] Potassium [Moles/Vol] 3.9 mmol/L Normal 3.7-5.1 [facility] Comment on above: Order Comment: Krystyna armstrong Type: BLOOD SPECIMENOrdering Facility: [facility] Address: [address] [place] [address] Performed By: #### 3 016-3, 31627-9, , [id number] ####JEW LABORATORYCLIA [id number] [place] [id number] [place] Protein [Mass/Vol] 7.2 g/dL Normal 6.3-8.0 [facility] Comment on above: Order Comment: Speci men Type: BLOOD SPECIMENOrdering Facility: [facility] Address: [address] [place] [address] Performed By: #### 3 016-3, 15067-1, 76010-0, [id number] ####JEW LABORATORYCLIA [id number] [place] [address] [place] Sodium [Moles/Vol] 139 mmol/L Normal 136-144 [facility] Comment on above: Order Comment: Speci men Type: BLOOD SPECIMENOrdering Facility: [facility] Address: [address] [place] [address] Performed By: #### 3 016-3, 31002-8, 55754-3, [id number] ####JEW LABORATORYCLIA [id number] [address] [place] Urea nitrogen [Mass/Vol] 10 mg/dL Normal 7-21 [facility] Comment on above: Order Comment: Speci men Type: BLOOD SPECIMENOrdering Facility: [facility] Address: [address] [place] [address] Performed By: #### 3 016-3, 15847-3, 37278-8, [id number] ####JEW LABORATORYCLIA [id number] [place] [address] [place] D dimer FEU PPP-mCncon 05-19 Fibrin D-dimer FEU (PPP) [Mass/Vol] 240 ng/mL FEU Normal <500 [facility] Comment on above: Order Comment: Speci men Type: BLOOD SPECIMEN Ordering Facility: [facility] Address: [address] [place] [address] Performed By: #### 4 8065-7 #### [facility] CLIA [id number] [address] [place] [address] [place] ECG COMPLETEon 05-19-2023 ECG COMPLETE Ventricular Rate : 1 40 BPM Atrial Rate : 140 BPM P-R Interval : 141 ms QRS Duration : 72 ms Q-T Interval : 292 ms QTC Calculation(Bazett) : 446 ms Calculated P Gloster : 48 degrees Calculated R Gloster : 75 degrees Calculated T Gloster : -23 degrees Sinus tachycardia Low voltage, precordial leads Nonspecific T abnormalities, diffuse leads Abnormal ECG NO STEMI. 2354 Confirmed by DO PICKETT NICHOLAS ([id number]), content editor MAURA NGUYEN ([id number]) on 05/19/2023 1:20:46 PM NAME : LILIAM THOMPSON PID : [id number] : 1990 Gender : Female Race : ORD : [id number] Procedure Date : May 18 2023 23:52:49 Edit Date : May 19 2023 13:20:47 Diagnosis: Sinus tachycardia Low voltage, precordial leads Nonspecific T abnormalities, diffuse leads Abnormal ECG NO STEMI. 2354 Confirmed by DO PICKETT NICHOLAS ([id number]), content editor MAURA NGUYEN ([id number]) on 05/19/2023 1:20:46 PM Test Reason : Palpitations Location : 502 : ED IT3 Overread By : DO PICKETT NICHOLAS Edited By : MAURA NGUYEN Referred By : , Acquired by : BY, [facility] ED NOTEon 05-19-2023 ED NOTE HNO ID: [id number] Author: Beena Camara, CASSANDRA Service: ? Author Type: Registered Nurse Type: ED Notes Filed: 05/19/2023 4:15 AM Note Text: Discharge paperwork gone over with patient. Iv discontinued. [facility] ED NOTE HNO ID: [id number] Author: Catherine Hitchcock CT Service: ? Author Type: Clinical Personal Financial Representative Type: ED Notes Filed: 05/18/2023 11:45 PM Note Text: Pt to ED for palpitations that started around 2200 tonight. Pt states she had one cocktail and when she got home pt states I got nauseous, felt like I was going to pass out and my left hand and left foot felt numb. [facility] ED PROV NOTEon 05-19-2023 ED PROV NOTE HNO ID: [id number] Author: Jonathan Pickett DO Service: Emergency Medicine [...] abdominal pain Fibromyalgia Dr. 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 Normal [facility] EKGon 05-19-2023 Electrocardiogram Ventricular Rate : 9 2 BPM Atrial Rate : 92 BPM P-R Interval : 144 ms QRS Duration : 72 ms Q-T Interval : 332 ms QTC Calculation(Bazett) : 411 ms Calculated P Gloster : 24 degrees Calculated R Gloster : 38 degrees Calculated T Gloster : -9 degrees Sinus rhythm Borderline Q waves in inferior leads Inferior infarct, age indeterminate Abnormal ECG NO STEMI. 0326 Confirmed by DO PICKETT NICHOLAS ([id number]), content editor MAURA NGUYEN ([id number]) on 05/19/2023 1:21:17 PM NAME : LILIAM THOMPSON PID : [id number] : 1990 Gender : Female Race : ORD : Procedure Date : May 19 2023 03:19:50 Edit Date : May 19 2023 13:21:19 Diagnosis: Sinus rhythm Borderline Q waves in inferior leads Inferior infarct, age indeterminate Abnormal ECG NO STEMI. 0326 Confirmed by DO PICKETT NICHOLAS ([id number]), content editor MAUAR NGUYEN ([id number]) on 05/19/2023 1:21:17 PM Test Reason : Location : 502 : [facility] 14 Overread By : DO PICKETT NICHOLAS Edited By : MAURA NGUYEN Referred By : , Acquired by : BY, Normal [facility] HCG QUAL BLDon 05-19-2023 HCG, QUALITATIVE Negative Normal Negative [facility] Comment on above: Order Comment: Krystyna armstrong Type: BLOOD SPECIMEN Ordering Facility: [facility] Address: [address] [place] [address] Performed By: #### H #### [facility]AT[facility] CLIA [id number] [address] [place] [address] [place] HIGH SENSITIVITY TROPONIN T (INITIAL)on 05-19-2023 Troponin T.cardiac High sensitivity method [Mass/Vol] <6 Normal <12 [facility] Comment on above: Order Comment: Krystyna armstrong Type: BLOOD SPECIMENOrdering Facility: [facility] Address: [address] [place] [address] Result Comment: When assessing risk for acute [...] day MACE. Performed By: #### 3 016-3, 78510-1, 60667-6, [id number] ####JEW LABORATORYCLIA [id number] [place] [id number] [place] HIGH SENSITIVITY TROPONIN T (SECOND)on 05-19-2023 Troponin T.cardiac High sensitivity method [Mass/Vol] <6 Normal <12 [facility] Comment on above: Order Comment: Speci men Type: BLOOD SPECIMEN Ordering Facility: [facility] Address: [address] [place] [address] Result Comment: When assessing risk for acute [...] 30 day MACE. Performed By: #### L [id number] #### [facility] CLIA [id number] [address] [place], [place] [id number] [place] Magnesium SerPl-mCncon 05-19 Magnesium [Mass/Vol] 1.8 mg/dL Normal 1.7-2.3 [facility] Comment on above: Order Comment: Speci men Type: BLOOD SPECIMENOrdering Facility: [facility] Address: [address] [place] [address] Performed By: #### 3 016-3, 10821-8, , [id number] ####JEW LABORATORYCLIA [id number] [place] [id number] [place] TOX SCREEN ROUT URon 023 Amphetamines Confirm (U) [Mass/Vol] Negative Normal Negative [facility] Comment on above: Order Comment: Speci men Type: URINE SPECIMEN Ordering Facility: [facility] Address: [address] [place] [address] Result Comment: Cuto ff threshold at 1000 ng/mL. Performed By: #### U TOX2 #### [facility] CLIA [id number] [address] [place] [address] [place] BARBITURATES, URINE Negative Normal Negative [facility] Comment on above: Order Comment: Speci men Type: URINE SPECIMEN Ordering Facility: [facility] Address: [address] [place] [address] Result Comment: Cuto ff threshold at 200 ng/mL. Performed By: #### U TOX2 #### [facility] CLIA [id number] [address] [place] [address] [place] BENZODIAZEPINES, UR Negative Normal Negative [facility] Comment on above: Order Comment: Speci men Type: URINE SPECIMEN Ordering Facility: [facility] Address: [address] [place] [address] Result Comment: Cuto ff threshold at 200 ng/mL. Performed By: #### U TOX2 #### [facility] CLIA [id number] [address] [place] [address] [place] Cannabinoids Screen Ql (U) Negative Normal Negative [facility] Comment on above: Order Comment: Speci men Type: URINE SPECIMEN Ordering Facility: [facility] Address: [address] [place] [address] Result Comment: Cuto ff threshold at 50 ng/mL. Performed By: #### U TOX2 #### [facility] CLIA [id number] [address] [place] [address] [place] Cocaine Ql (U) Negative Normal Negative [facility] Comment on above: Order Comment: Speci men Type: URINE SPECIMEN Ordering Facility: [facility] Address: [address] [place] [address] Result Comment: Cuto ff threshold at 300 ng/mL. Performed By: #### U TOX2 #### [facility] CLIA [id number] [address] [place] [address] [place] Ethanol (U) [Mass/Vol] <11 Normal <11 [facility] Comment on above: Order Comment: Speci men Type: URINE SPECIMEN Ordering Facility: [facility] Address: [address] [place] [address] Performed By: #### U TOX2 #### [facility] CLIA [id number] [address] [place] [address] [place] Opiates Screen Ql (U) Negative Normal Negative [facility] Comment on above: Order Comment: Speci men Type: URINE SPECIMEN Ordering Facility: [facility] Address: [address] [place] [address] Result Comment: Cuto ff threshold at 300 ng/mL. Performed By: #### U TOX2 #### [facility] CLIA [id number] [address] [place] [address] [place] oxyCODONE cutoff Screen (U) [Mass/Vol] Negative Normal Negative [facility] Comment on above: Order Comment: Speci men Type: URINE SPECIMEN Ordering Facility: [facility] Address: [address] [place] [address] Result Comment: Cuto ff threshold at 100 ng/mL. Performed By: #### U TOX2 #### [facility] CLIA [id number] [address] [place] [address] [place] Phencyclidine Ql (U) Negative Normal Negative [facility] Comment on above: Order Comment: Speci men Type: URINE SPECIMEN Ordering Facility: [facility] Address: [address] [place] [address] Result Comment: Cuto ff threshold at 25 ng/mL. Performed By: #### U TOX2 #### [facility] CLIA [id number] [address] [place] [address] [place] TSH SerPl-aCncon 05-19-2023 TSH Qn 5.640 m[IU]/L High 0.270-4.200 [facility] Comment on above: Order Comment: Speci men Type: BLOOD SPECIMENOrdering Facility: [facility] Address: [address] [place] [address] Result Comment: If t he patient is , TSH reference range varies by gestational period: First Trimester (weeks 9-12): 0.180-2.990 mIU/L Second Trimester: 0.110-3.980 mIU/L Third Trimester: 0.480-4.710 mIU/L Mark Cheng et al. A Practical Approach for the Verifications and Determination of Site- and Trimester-Specific Reference Intervals for Thyroid Function tests in . Thyroid, 2019:29:3:412-420. Rickey E, et al. 2017 Guidelines of the [place] Thy[employer] Association for the Diagnosis and Management of Thyroid Disease during and the . Thyroid, 2017:27:3:315-389. Performed By: #### 3 016-3, 92333-6, 30812-7, [id number] ####JEW LABORATORYCLIA [id number] [address] [place] [address] Urinalysis complete panel (U )on 05-19-2023 Bacteria LM.HPF (Urine sed) [#/Area] Moderate Abnormal None Seen [facility] Comment on above: Order Comment: Speci men Type: URINE SPECIMEN Ordering Facility: [facility] Address: [address] [place] [address] Performed By: #### 2 4356-8 #### [facility] CLIA [id number] [address] [place] [address] Bilirubin Ql (U) Negative Normal Negative [facility] Comment on above: Order Comment: Speci men Type: URINE SPECIMEN Ordering Facility: [facility] Address: [address] [place] [address] Performed By: #### 2 4356-8 #### [facility] CLIA [id number] [address] [place] [address] Clarity (Unsp spec) Clear Normal Clear [facility] Comment on above: Order Comment: Speci men Type: URINE SPECIMEN Ordering Facility: [facility] Address: [address] [place] [address] Performed By: #### 2 4356-8 #### [facility] CLIA [id number] [address] [place] [address] Color (U) Yellow Normal Yellow [facility] Comment on above: Order Comment: Speci men Type: URINE SPECIMEN Ordering Facility: [facility] Address: [address] [place] [address] Performed By: #### 2 4356-8 #### [facility] CLIA [id number] [address] [place] [address] [place] Epithelial cells LM.HPF (Urine sed) [#/Area] Few Normal [facility] Comment on above: Order Comment: Speci men Type: URINE SPECIMEN Ordering Facility: [facility] Address: [address] [place] [address] Performed By: #### 2 4356-8 #### [facility] CLIA [id number] [address] [place] [address] [place] Glucose Test strip (U) [Mass/Vol] Negative Normal Negative [facility] Comment on above: Order Comment: Speci men Type: URINE SPECIMEN Ordering Facility: [facility] Address: [address] [place] [address] Performed By: #### 2 4356-8 #### [facility] CLIA [id number] [address] [place] [address] [place] Hemoglobin Ql (U) Negative Normal Negative [facility] Comment on above: Order Comment: Speci men Type: URINE SPECIMEN [facility] [facility] Address: [address] [place] [address] Performed By: #### 2 4356-8 #### [facility] CLIA [id number] [address] [place] [address] [place] Ketones Ql (U) Negative Normal Negative [facility] Comment on above: Order Comment: Speci men Type: URINE SPECIMEN Ordering Facility: [facility] Address: [address] [place] [address] Performed By: #### 2 4356-8 #### [facility] CLIA [id number] [address] [place] [address] [place] Leukocyte esterase Test strip Ql (U) Negative Normal Negative [facility] Comment on above: Order Comment: Speci men Type: URINE SPECIMEN Ordering Facility: [facility] Address: [address] [place] [address] Performed By: #### 2 4356-8 #### [facility] CLIA [id number] [address] [place] [address] [place] Nitrite Ql (U) Negative Normal Negative [facility] Comment on above: Order Comment: Speci men Type: URINE SPECIMEN Ordering Facility: [facility] Address: [address] [place] [address] Performed By: #### 2 4356-8 #### [facility] CLIA [id number] [address] [place] [address] STATES [facility] pH (U) 6.0 [pH] Normal 5.0-8.0 [facility] Comment on above: Order Comment: Speci men Type: URINE SPECIMEN Ordering Facility: [facility] Address: [address] [place] [address] Performed By: #### 2 4356-8 #### [facility] [place] [id number] [address] [place] [address] [place] Protein (U) [Mass/Vol] Negative Normal Negative [facility] Comment on above: Order Comment: Speci men Type: URINE SPECIMEN Ordering Facility: [facility] Address: [address] [place] [address] Performed By: #### 2 4356-8 #### [facility] [place] [id number] [address] [place] [address] [place] RBC LM.HPF (Urine sed) [#/Area] 0-3 /HPF Normal 0-3 /HPF [facility] Comment on above: Order Comment: Speci men Type: URINE SPECIMEN Ordering Facility: [facility] Address: [address] [place] [address] Performed By: #### 2 4356-8 #### [facility] IA [id number] [address] [place] [address] [place] Specific gravity (U) [Rel density] <=1.005 Low 1.005-1.030 [facility] Comment on above: Order Comment: Speci men Type: URINE SPECIMEN Ordering Facility: [facility] Address: [address] [place] [address] Performed By: #### 2 4356-8 #### [facility] [place] [id number] [address] [place] [address] [place] Urobilinogen Ql (U) 0.2 EU/dL Normal 0.2-1.0 EU/dL [facility] Comment on above: Order Comment: Speci men Type: URINE SPECIMEN Ordering Facility: [facility] Address: [place] [address] Performed By: #### 2 4356-8 #### [facility] IA [id number] [address] [place] [address] WBC LM.HPF (Urine sed) [#/Area] 0-5 /HPF Normal 0-5 /HPF [facility] Comment on above: Order Comment: Speci men Type: URINE SPECIMEN Ordering Facility: [facility] Address: [address] [place] [address] Performed By: #### 2 4356-8 #### [id number] [address] [place], [place] [id number] [place] XR CHEST 2V FRONTAL/LATon [...] significant acute radiographic abnormality of the chest. Ammonia Nitrate Operator: PSCB Transcribe Date/Time: May 19 2023 1:53A Dictated by : SELMA RUDD MD This examination was interpreted and the report reviewed and electronically signed by: SELMA RUDD MD on May 19 2023 1:53AM EST [id number] Normal [facility] ALT SerPl-cCncon 03-25-2023 ALT [Catalytic activity/Vol] 23 U/L Normal 7-38 [facility] Comment on above: Order Comment: Speci men Type: BLOOD SPECIMEN Ordering Facility: [facility] Address: [address] [place] [id number] Performed By: #### 1 742-6, 8, 309-0, CRET1, 1987-12 #### [facility] CLIA [id number] [address] [place] [address] [place] AST SerPl-cCncon 03-25-2023 AST [Catalytic activity/Vol] 24 U/L Normal 13-35 [facility] Comment on above: Order Comment: Speci men Type: BLOOD SPECIMEN Ordering Facility: [facility] Address: [address] [place] [address] Performed By: #### 1 742-6, 1920-03, 309-0, CRET1, 1987-12 #### [facility] CLIA [id number] [address] [place] [address] [place] BUN SerPl-mCncon 03-25-2023 Urea nitrogen [Mass/Vol] 6 mg/dL Low 7-21 [facility] Comment on above: Order Comment: Speci men Type: BLOOD SPECIMEN Ordering Facility: [facility] Address: [address] [place] [address] Performed By: #### 1 742-6, 1920-03, 0, CRET1, 1987-12 #### [facility] CLIA [id number] [address] [place] [address] [place] CBC W Auto Differential pane l (Bld)on 03-25-2023 Basophils (Bld) [#/Vol] 0.04 10*3/uL Normal <0.11 [facility] Comment on above: Order Comment: Speci men Type: BLOOD SPECIMEN Ordering Facility: [facility] Address: [address] [place] [address] Performed By: #### 5 7021-8 #### [facility] CLIA [id number] [address] [place] [address] [place] Basophils/100 WBC (Bld) 0.5 % Normal [facility] Comment on above: Order Comment: Speci men Type: BLOOD SPECIMEN Ordering Facility: [facility] Address: [address] [place] [address] Performed By: #### 5 7021-8 #### [facility] CLIA [id number] [address] [place] [address] [place] Differential cell count method Nom (Bld) Auto Normal [facility] Comment on above: Order Comment: Speci men Type: BLOOD SPECIMEN Ordering Facility: [facility] Address: [address] [place] [address] Performed By: #### 5 7021-8 #### [facility] CLIA [id number] [address] [place] [address] [place] Eosinophils (Bld) [#/Vol] 0.12 10*3/uL Normal <0.46 [facility] Comment on above: Order Comment: Speci men Type: BLOOD SPECIMEN Ordering Facility: [facility] Address: [address] [place] [address] Performed By: #### 5 7021-8 #### [facility] CLIA [id number] [address] [place] [address] [place] Eosinophils/100 WBC (Bld) 1.6 % Normal [facility] Comment on above: Order Comment: Speci men Type: BLOOD SPECIMEN Ordering Facility: [facility] Address: [address] [place] [address] Performed By: #### 5 7021-8 #### [facility] CLIA [id number] [address] [place] [address] [place] Erythrocyte distribution width (RBC) [Ratio] 11.9 % Normal 11.5-15.0 [facility] Comment on above: Order Comment: Speci men Type: BLOOD SPECIMEN Ordering Facility: [facility] Address: [address] [place] [address] Performed By: #### 5 7021-8 #### [facility] CLIA [id number] [address] [place] [address] [place] Hematocrit (Bld) [Volume fraction] 40.9 % Normal 36.0-46.0 [facility] Comment on above: Order Comment: Speci men Type: BLOOD SPECIMEN Ordering Facility: [facility] Address: [address] [place] [address] Performed By: #### 5 7021-8 #### [facility] CLIA [id number] [address] [place] [address] [place] Hemoglobin (Bld) [Mass/Vol] 13.3 g/dL Normal 11.5-15.5 [facility] Comment on above: Order Comment: Speci men Type: BLOOD SPECIMEN Ordering Facility: [facility] Address: [address] [place] [address] Performed By: #### 5 7021-8 #### [facility] CLIA [id number] [address] [place] [address] [place] Immature granulocytes (Bld) [#/Vol] 10*3/uL Normal <0.10 [facility] Comment on above: Order Comment: Speci men Type: BLOOD SPECIMEN Ordering Facility: [facility] Address: [address] [place] [address] Performed By: #### 5 7021-8 #### [facility] CLIA [id number] [address] [place] [address] [place] Immature granulocytes/100 WBC (Bld) 0.3 % Normal [facility] Comment on above: Order Comment: Speci men Type: BLOOD SPECIMEN Ordering Facility: [facility] Address: [address] [place] [address] Performed By: #### 5 7021-8 #### [facility] CLIA [id number] [address] [place] [address] [place] Lymphocytes (Bld) [#/Vol] 2.91 10*3/uL Normal 1.00-4.00 [facility] Comment on above: Order Comment: Speci men Type: BLOOD SPECIMEN Ordering Facility: [facility] Address: [address] [place] [address] Performed By: #### 5 7021-8 #### [facility] CLIA [id number] [address] [place] [address] [place] Lymphocytes/100 WBC (Bld) 37.8 % Normal [facility] Comment on above: Order Comment: Speci men Type: BLOOD SPECIMEN Ordering Facility: [facility] Address: [address] [place] [address] Performed By: #### 5 7021-8 #### [facility] CLIA [id number] [address] [place] [address] [place] MCH (RBC) [Entitic mass] 30.9 pg Normal 26.0-34.0 [facility] Comment on above: Order Comment: Speci men Type: BLOOD SPECIMEN Ordering Facility: [facility] Address: [address] [place] [address] Performed By: #### 5 7021-8 #### [facility] CLIA [id number] [address] [place] [address] [place] MCHC (RBC) [Mass/Vol] 32.5 g/dL Normal 30.5-36.0 [facility] Comment on above: Order Comment: Speci men Type: BLOOD SPECIMEN Ordering Facility: [facility] Address: [address] [place] [address] Performed By: #### 5 7021-8 #### [facility] CLIA [id number] [address] [place] [address] [place] MCV (RBC) [Entitic vol] 94.9 fL Normal 80.0-100.0 [facility] Comment on above: Order Comment: Speci men Type: BLOOD SPECIMEN Ordering Facility: [facility] Address: [address] [place] [address] Performed By: #### 5 7021-8 #### [facility] CLIA [id number] [address] [place] [address] [place] Monocytes (Bld) [#/Vol] 0.71 10*3/uL Normal <0.87 [facility] Comment on above: Order Comment: Speci men Type: BLOOD SPECIMEN Ordering Facility: [facility] Address: [address] [place] [address] Performed By: #### 5 7021-8 #### [facility] CLIA [id number] [address] [place] [address] [place] Monocytes/100 WBC (Bld) 9.2 % Normal [facility] Comment on above: Order Comment: Speci men Type: BLOOD SPECIMEN Ordering Facility: [facility] Address: [address] [place] [address] Performed By: #### 5 7021-8 #### [facility] CLIA [id number] [address] [place] [address] [place] Neutrophils (Bld) [#/Vol] 3.89 10*3/uL Normal 1.45-7.50 [facility] Comment on above: Order Comment: Speci men Type: BLOOD SPECIMEN Ordering Facility: [facility] Address: [address] [place] [address] Performed By: #### 5 7021-8 #### [facility] CLIA [id number] [address] [place] [address] [place] Neutrophils/100 WBC (Bld) 50.6 % Normal [facility] Comment on above: Order Comment: Speci men Type: BLOOD SPECIMEN Ordering Facility: [facility] Address: [address] [place] [address] Performed By: #### 5 7021-8 #### [facility] CLIA [id number] [address] [place] [address] [place] Nucleated RBC (Bld) [#/Vol] 10*3/uL Normal <0.01 [facility] Comment on above: Order Comment: Speci men Type: BLOOD SPECIMEN Ordering Facility: [facility] Address: [address] [place] [address] Performed By: #### 5 7021-8 #### [facility] CLIA [id number] [address] [place] [address] [place] Nucleated RBC/100 WBC (Bld) [Ratio] 0.0 /100 WBC Normal [facility] Comment on above: Order Comment: Speci men Type: BLOOD SPECIMEN Ordering Facility: [facility] Address: [address] [place] [address], [place] [address] Performed By: #### 5 7021-8 #### [facility] CLIA [id number] [address] [place] [address] [place] Platelet mean volume (Bld) [Entitic vol] 9.7 fL Normal 9.0-12.7 [facility] Comment on above: Order Comment: Speci men Type: BLOOD SPECIMEN Ordering Facility: [facility] Address: [address] [place] [address] Performed By: #### 5 7021-8 #### [facility] CLIA [id number] [address] [place] [address] [place] Platelets (Bld) [#/Vol] 439 10*3/uL High 150-400 [facility] Comment on above: Order Comment: Speci men Type: BLOOD SPECIMEN Ordering Facility: [facility] Address: [address] [place] [address] Performed By: #### 5 7021-8 #### [facility] CLIA [id number] [address] [place] [address] [place] RBC (Bld) [#/Vol] 4.31 10*6/uL Normal 3.90-5.20 [facility] Comment on above: Order Comment: Speci men Type: BLOOD SPECIMEN Ordering Facility: [facility] Address: [address] [place] [place] [address] Performed By: #### 5 7021-8 #### [facility] CLIA [id number] [address] [place] [address] [place] WBC (Bld) [#/Vol] 7.69 10*3/uL Normal 3.70-11.00 [facility] Comment on above: Order Comment: Speci men Type: BLOOD SPECIMEN Ordering Facility: [facility] Address: [address] [place] [place] [address] Performed By: #### 5 7021-8 #### [facility] CLIA [id number] [address] [place] [address] [place] CREATININE BLDon 03-25-2023 Creatinine [Mass/Vol] 0.73 mg/dL Normal 0.58-0.96 [facility] Comment on above: Order Comment: Krystyna armstrong Type: BLOOD SPECIMEN Ordering Facility: [facility] Address: [address] [place] [address] Performed By: #### 1 742-6, 8, 0, CRE1987-12 #### [facility] CLIA [id number] [address] [place] [address] [place] ESTIMATED GLOMERULAR FILTRATION RATE 114 mL/min/1.73m??? Normal >=60 [facility] Comment on above: Order Comment: Krystyna armstrong Type: BLOOD SPECIMEN Ordering Facility: [facility] Address: [address] [place] [address] Result Comment: Imelda mated Glomerular Filtration Rate [...] 1 742-6, 1920-03, 0, CRE, 1987-12 #### [facility] CLIA [id number] [address] [place] [address] [place] CRP SerPl-mCncon 03-25-2023 CRP [Mass/Vol] mg/L Normal <0.9 [facility] Comment on above: Order Comment: Krystyna armstrong Type: BLOOD SPECIMEN Ordering Facility: [facility] Address: [address] [place] [address] Performed By: #### 1 742-6, 1920-03, 0, CRE1987-12 #### [facility] CLIA [id number] [address] [place] [address] [place] ESR Westergren method (Bld) [Velocity]on 03-25-2023 ESR (Bld) [Velocity] 6 mm/h Normal 0-20 [facility] Comment on above: Order Comment: Speci men Type: BLOOD SPECIMEN Ordering Facility: [facility] Address: [address] [place] [address] Performed By: #### 4 537-7 #### [facility] CLIA [id number] [address] [facility] [address] [address] [place] BACTERIAL VAGINOSIS NAATon 0 - Lactobacillus crispatus+gasseri+talat senii + Gardnerella vaginalis + Atopobium vaginae rRNA JOSSIE+probe Ql (Vag fld) Negative Negative for bacterial vaginosis [facility] BARBARA/TRICHOMONAS NAATon 0 02-26-2023 C. glabrata RNA JOSSIE+probe Ql (Vag fld) Negative Negative for Barabra glabrata [facility] Barbara sp DNA JOSSIE+probe Ql (Vag fld) Negative Negative for Barbara species [facility] T. vaginalis DNA JOSSIE+probe Ql (Unsp spec) Negative Negative for Trichomonas vaginalis by amplification [facility] Reagin and Treponema pallidu m IgG and IgM [Interp]on 07-15-2022 Syphilis Interpretation Cannot exclude recent Treponemal infection if specimen collected within 7-10 days after appearance of suspect lesions or 2-3 weeks after an exposure. Clinical correlation is required. [facility] T. pallidum IgG+IgM IA Ql (S) Non-Reactive Nonreactive [facility] BACTERIAL VAGINOSIS AMPLIFIC ATIONon 07-14-2022 Lactobacillus crispatus+gasseri+talat senii + Gardnerella vaginalis + Atopobium vaginae rRNA JOSSIE+probe Ql (Vag fld) Negative Negative for bacterial vaginosis [facility] C. trachomatis+N. gonorrhoea e DNA JOSSIE+probe Ql (Unsp spec)on 07-14-2022 C. trachomatis DNA JOSSIE+probe Ql (Unsp spec) Negative Negative for Chlamydia trachomatis by amplificaton [facility] N. gonorrhoeae DNA JOSSIE+probe Ql (Unsp spec) Negative Negative for Neisseria gonorrhoeae by amplification [facility] BARBARA / TRICHOMONAS AMPLIF ICATIONon 07-14-2022 C. glabrata RNA JOSSIE+probe Ql (Vag fld) Negative Negative for Barbara glabrata [facility] Barbara albicans, C. dubliniensis, C. parapsilosis, and C. tropicalis RNA JOSSIE+probe Ql (Vag fld) Positive Abnormal Negative for Barbara species [facility] T. vaginalis DNA JOSSIE+probe Ql (Unsp spec) Negative Negative for Trichomonas vaginalis by amplification [facility] CT ABDOMEN/PELVIS WITH CONTR Seferino 06-28-2022 CT [...] in the abdomen/pelvis. Appendix is normal. Normal [facility] CT Abdomen and Pelvis W cont [...] process in the abdomen/pelvis. Appendix is normal. [facility] Radiology Study observation (narrative) [facility] CT Abdomen and Pelvis W cont rast IVOrdered By: Isis Franz on 06-28-2022 [facility] Work Phone: HCG ( test) Ql (U)o n 06-28-2022 HCG.beta subunit [Moles/Vol] Negative [facility] POCT CBCOrdered By: Maryan quiles on 06-28-2022 HEMATOCRIT (HCT), MANUAL ENTER 43.2 % 32.5 - 49.4 % [facility] Hemoglobin (HGB), MANUAL ENTER 14.2 g/dL 10.9 - 16.7 g/dL [facility] Interpretation and review of laboratory results Abnormal [facility] LYMPHOCYTES %, MANUAL ENTER 34.3 % 14.7 - 45.9 % [facility] MEAN CELL VOLUME, MANUAL ENTER 94.3 fL 82.5 - 98.0 fL [facility] NEUTROPHILS %, MANUAL ENTER 59.5 % 46.4 - 74.9 % [facility] OTHERWBC %, MANUAL ENTER 6.2 % 3.2 - 16.9 % [facility] PLATELETS, MANUAL ENTER 477 10^3/uL Abnormal 148 - 382 10^3/uL [facility] RBC, MANUAL ENTER 4.58 10^6/uL 3.71 - 5.5 2 10^6/uL [facility] WBC, MANUAL ENTER 8.2 10^3/uL 3.9 - 10.4 10^3/uL [facility] POCT COMPREHENSIVE METABOLIC PANELon 06-28-2022 ALBUMIN, MANUAL ENTER 3.9 g/dL 3.3 - 5.5 g/dL [facility] ALKALINE PHOSPHATASE, MANUAL ENTER 76 U/L 42 - 141 U/L [facility] ALT, MANUAL ENTER 36 U/L 10 - 47 U/L [facility] AST, MANUAL ENTER 35 U/L 11 - 38 U/L [facility] Bilirubin, Total, MANUAL ENTER 0.4 mg/dL 0.2 - 1.6 mg/dL [facility] Blood Urea Nitrogen (BUN), MANUAL ENTER 11 mg/dL 7 - 22 mg/dL [facility] CALCIUM (CA), MANUAL ENTER 9.3 mg/dL 8.0 - 10.3 mg/dL [facility] Carbon Diox(CO2), MANUAL ENTER 20 mmol/L 18 - 33 mmol/L [facility] Chloride (CL), MANUAL ENTER 111 mmol/L Abnormal 98 - 108 mmol/L [facility] CREATININE, SERUM, MANUAL ENTER 0.9 mg/dL 0.6 - 1.2 mg/dL [facility] GLUCOSE, MANUAL ENTER 101 mg/dL 73 - 118 mg/dL [facility] Interpretation and review of laboratory results Abnormal [facility] POTASSIUM (K+), MANUAL ENTER 4.1 mmol/L 3.6 - 5.1 mmol/L [facility] Protein, Total, Manual Enter 7.3 g/dL 6.4 - 8.1 g/dL [facility] SODIUM (NA), MANUAL ENTER 142 mmol/L 128 - 145 mmol/L [facility] POCT URINE DIPSTICK AUTOMATE DOrdered By: Francesca Johnson on 06-28-2022 Amorphous sediment LM Ql (Urine sed) [facility] Appearance (U) clear [facility] Bacteria LM Ql (Urine sed) [facility] Bilirubin Ql (U) Negative [facility] Casts LM.LPF (Urine sed) [#/Area] [facility] Color (U) yellow [facility] Crystals LM Nom (Urine sed) [facility] Epithelial cells.squamous LM.HPF (Urine sed) [#/Area] [facility] Flow cytometry specialist review Amrik (Unsp spec) [Interp] [facility] Glucose Auto test strip (U) [Mass/Vol] Negative mg/dL [facility] Ketones [Mass/Vol] Negative mg/dL [facility] Leukocyte esterase Qn (U) [facility] Leukocyte esterase Test strip Ql (U) Negative [facility] Microscopic observation Gram stain Nom (Bronch spec) [facility] Nitrite Ql (U) Negative [facility] pH (U) 5.5 [pH] 5 - 7 [facility] Protein Ql (U) Negative mg/dL [facility] RBC LM.HPF (Urine sed) [#/Area] [facility] RBC Ql (U) Negative [facility] Specific gravity (U) [Rel density] 1.001 - 1.035 [facility] Transitional cells LM Ql (Urine sed) [facility] Urobilinogen Qn (U) 0.2 [facility] WBC LM.HPF (Urine sed) [#/Area] [facility] XR ANKLE RIGHT 3+ VIEWS [...] arthritic changes at the talonavicular articulation noted. [employer] Workstation ID: [id number] Dictated by: BOB TONY on [employer] May 02, 2022 2:33:16 PM EDT Transcribed by: ELIAS HARPER on [employer] May 02, 2022 2:34:42 PM EDT Finalized by: BOB TONY on [employer] May 02, 2022 4:39:[address] [facility] Comment on above: Order Comment: [...] arthritic changes at the talonavicular articulation noted. [employer] Workstation ID: [id number] [facility] EXAMINATION: XR ANKLE RIGHT 3+ VIEWS [...] Frontal, oblique and lateral views were obtained. [facility] Bob Tony M D - 05/02/2022 EXAMINATION: [...] talonavicular articulation noted. [employer] Workstation ID: [id number] [facility] Radiology Study observation (narrative) [facility] XR Ankle Right 3+ Views (Sta ndard)Ordered By: Bob Tony on 05-02-2022 [facility] Work Phone: US FEMALE PELVIS TRANSVAGon 01-20-2022 [facility] HCG QUAL UR B/Oon 12-04-2021 status Negative neg - [facility] Quality Check Yes [facility] [place] [facility] 11-[facility]21 [facility] HNO ID: [id number] Author: RT Beatrice(R) Service: ? Author Type: [...] Micki CORONA November 02, 2021 2:12 PM [facility] MRI ANKLE WO IVCON LTon 03-2 MRI ANKLE WO IVCON LT * * *Final Report* * * DATE OF EXAM: Nov 02 2021 2:42PM [facility] 0163 - MRI ANKLE WO IVCON [...] the lateral collateral ligament complex are intact Ammonia Nitrate Operator: [facility] Transcribe Date/Time: Nov 02 2021 5:07P Dictated by : GIOVANY MENJIVAR MD This examination was interpreted and the report reviewed and electronically signed by: GIOVANY MENJIVAR MD on Nov 02 2021 5:09PM EST [id number] Normal [facility] XR Ankle - left AP and Later al and obliqueon 09-16-2021 IMPRESSION: No radiographic evidence of acute osseous injury. Ammonia Nitrate Operator: [facility] Transcribe Date/Time: Sep 16 2021 11:38A Dictated by : JAMES THURMAN MD This examination was interpreted and the report reviewed and electronically signed by: JAMES THURMAN MD on Sep 16 2021 11:39AM [facility] DIVISION OF RADIOLOGY * * [...] Joint spaces preserved. DIVISION OF RADIOLOGY Provider, [facility] - 09/16/2021 * * *Final Report* [...] No radiographic evidence of acute osseous injury. Ammonia Nitrate Operator: [facility] Transcribe Date/Time: Sep 16 2021 11:38A Dictated by : JAMES THURMAN MD This examination was interpreted and the report reviewed and electronically signed by: JAMES THURMAN MD on Sep 16 2021 11:39AM EST [facility] Radiology Study observation (narrative) [facility] XR Ankle - left AP and Later al and obliqueOrdered By: Ccf Provider on 09-16-2021 [facility] No Panel Informationon 08-05 IMPRESSION: LEFT ANKLE: Within normal limits. No fracture or other bone or joint abnormalities. LEFT FOOT: Within normal limits. No fracture or other bone or joint abnormalities. Ammonia Nitrate Operator: [facility] Transcribe Date/Time: Aug 05 2021 4:29P Dictated by : KATI ROMAN MD This examination was interpreted and the report reviewed and electronically signed by: KATI ROMAN MD on Aug 05 2021 4:34PM [facility] DIVISION OF RADIOLOGY Radiology Study observation (narrative) [facility] No Panel InformationOrdered By: Ccf Provider on 08-05-2021 [facility] XR Ankle - left AP and Later [...] radiopaque foreign bodies. DIVISION OF RADIOLOGY Provider, [facility] - 08/05/2021 * * *Final Report* * [...] fracture or other bone or joint abnormalities. Ammonia Nitrate Operator: [facility] Transcribe Date/Time: Aug 05 2021 4:29P Dictated by : KATI ROMAN MD This examination was interpreted and the report reviewed and electronically signed by: KATI ROMAN MD on Aug 05 2021 4:34PM [facility] XR Foot - left AP and Latera [...] radiopaque foreign bodies. DIVISION OF RADIOLOGY Provider, [facility] - 08/05/2021 * * *Final Report* * [...] fracture or other bone or joint abnormalities. Ammonia Nitrate Operator: [facility] Transcribe Date/Time: Aug 05 2021 4:29P Dictated by : KATI ROMAN MD This examination was interpreted and the report reviewed and electronically signed by: KATI ROMAN MD on Aug 05 2021 4:34PM EST [facility] No Panel Informationon 01-07 IMPRESSION: No acute osseous abnormality of the LEFT wrist or LEFT shoulder is identified. Ammonia Nitrate Operator: [facility] Transcribe Date/Time: Jan 07 2021 8:17A Dictated by : MICHELINE MORIN MD This examination was interpreted and the report reviewed and electronically signed by: MICHELINE MORIN MD on Jan 07 2021 8:20AM EST DIVISION OF RADIOLOGY Radiology Study observation (narrative) [facility] No Panel InformationOrdered By: Ccf Provider on 01-07-2021 [facility] XR Shoulder - left 3 Viewson 01-07-2021 [...] area Acute pain of left shoulder (accession [id number]), Left wrist pain (accession [id number]) Technique: XR WRIST 4V PA/LAT/OBL/SCAPH LT, XR SHLDR >/=3V AP/JENNIE AP/OTHR LT -- LEFT wrist and shoulder with 4 (accession [id number]), 3 (accession [id number]) views on 4 (accession [id number]), 3 (accession [id number]) images Comparison: 10/27/2017 RESULT: LEFT wrist: No [...] lung are clear. DIVISION OF RADIOLOGY Provider, [facility] - 01/07/2021 * * *Final Report* [...] area Acute pain of left shoulder (accession [id number]), Left wrist pain (accession [id number]) Technique: XR WRIST 4V PA/LAT/OBL/SCAPH LT, XR SHLDR >/=3V AP/JENNIE AP/OTHR LT -- LEFT wrist and shoulder with 4 (accession [id number]), 3 (accession [id number]) views on 4 (accession [id number]), 3 (accession [id number]) images Comparison: 10/27/2017 RESULT: LEFT wrist: No [...] LEFT wrist or LEFT shoulder is identified. Ammonia Nitrate Operator: [facility] Transcribe Date/Time: Jan 07 2021 8:17A Dictated by : MICHELINE MORIN MD This examination was interpreted and the report reviewed and electronically signed by: MICHELINE MORIN MD on Jan 07 2021 8:20AM [facility] XR Wrist - left 4 Viewson * [...] area Acute pain of left shoulder (accession [id number]), Left wrist pain (accession [id number]) Technique: XR WRIST 4V PA/LAT/OBL/SCAPH LT, XR SHLDR >/=3V AP/JENNIE AP/OTHR LT -- LEFT wrist and shoulder with 4 (accession [id number]), 3 (accession [id number]) views on 4 (accession [id number]), 3 (accession [id number]) images Comparison: 10/27/2017 RESULT: LEFT wrist: No [...] lung are clear. DIVISION OF RADIOLOGY Provider, [facility] - 01/07/2021 * * *Final Report* * [...] area Acute pain of left shoulder (accession [id number]), Left wrist pain (accession [id number]) Technique: XR WRIST 4V PA/LAT/OBL/SCAPH LT, XR SHLDR >/=3V AP/JENNIE AP/OTHR LT -- LEFT wrist and shoulder with 4 (accession [id number]), 3 (accession [id number]) views on 4 (accession [id number]), 3 (accession [id number]) images Comparison: 10/27/2017 RESULT: LEFT wrist: No [...] LEFT wrist or LEFT shoulder is identified. Ammonia Nitrate Operator: [facility] Transcribe Date/Time: Jan 07 2021 8:17A Dictated by : MICHELINE MORIN MD This examination was interpreted and the report reviewed and electronically signed by: MICHELINE MORIN MD on Jan 07 2021 8:20AM [facility] CT Sinuses WO contraston IMPRESSION: Clear paranasal sinuses without radiographic sequelae of chronic sinusitis. Ammonia Nitrate Operator: [facility] Transcribe Date/Time: Jul 17 2020 10:37A Dictated by : KENNETH ROSAS MD This examination was interpreted and the report reviewed and electronically signed by: LIZABETH PARKER MD on Jul 17 2020 11:03AM [facility] DIVISION OF RADIOLOGY * * *Final Report* * * DATE OF EXAM: Jul 17 2020 10:29AM [facility] 0488 - CT SINUS WO [...] limits within the limitations of the study. Section Hand (topogram) images: Unremarkable. DIVISION OF RADIOLOGY Provider, [facility] - 07/17/2020 * * *Final Report* * * DATE OF EXAM: Jul 17 2020 10:29AM [facility] 0488 - CT SINUS WO [...] limits within the limitations of the study. Section Hand (topogram) images: Unremarkable. IMPRESSION IMPRESSION: Clear paranasal sinuses without radiographic sequelae of chronic sinusitis. Ammonia Nitrate Operator: [facility] Transcribe Date/Time: Jul 17 2020 10:37A Dictated by : KENNETH ROSAS MD This examination was interpreted and the report reviewed and electronically signed by: LIZABETH PARKER MD on Jul 17 2020 11:03AM EST [facility] Radiology Study observation (narrative) [facility] CT Sinuses WO contrastOrdere d By: Ccf Provider on 07-17-2020 [facility] XR Chest PA and Lateralon IMPRESSION: No acute radiographic abnormality. Ammonia Nitrate Operator: [facility] Transcribe Date/Time: Jun 05 2020 12:37P [...] osseous abnormalities appreciated. DIVISION OF RADIOLOGY Provider, [facility] - 06/05/2020 * * *Final Report* * [...] appreciated. IMPRESSION IMPRESSION: No acute radiographic abnormality. Ammonia Nitrate Operator: [facility] Transcribe Date/Time: Jun 05 2020 12:37P Dictated by : MICHELINE MORIN MD This examination was interpreted and the report reviewed and electronically signed by: MICHELINE MORIN MD on Jun 05 2020 12:38PM EST [facility] Radiology Study observation (narrative) [facility] XR Chest PA and LateralOrder ed By: Ccf Provider on 06-05-2020 [facility] Vital Signs Date Time Vital Sign Value Performing Clinician Facility 02-20-2025 15:05-0400 Body height 154 cm Michelle Rojas APRN.GRAIN DRIER Work Phone: [facility] 02-20-2025 15:05-0400 Body mass index (BMI) [Ratio] 51.26 kg/m2 Michelle Rojas APRN.GRAIN DRIER Work Phone: [facility] 02-20-2025 15:05-0400 Body weight 121.56 kg Michelle Rojas APRN.GRAIN DRIER Work Phone: [facility] 01-09-2025 10:12-0400 Body mass index (BMI) [Ratio] 53.6 kg/m2 Petra Beckman APRN.GRAIN DRIER Work Phone: [facility] 01-09-2025 10:12-0400 Body weight 124.5 kg Petra Beckman APRN.GRAIN DRIER Work Phone: [facility] 01-09-2025 10:12-0400 Diastolic blood pressure 103 mm[Hg] Petra Beckman APRN.GRAIN DRIER Work Phone: [facility] 01-09-2025 10:12-0400 Heart rate 130 /min Petra Beckman APRN.GRAIN DRIER Work Phone: [facility] 01-09-2025 10:12-0400 SaO2% (BldA) [Mass fraction] 99 % Petra Beckman APRN.GRAIN DRIER Work Phone: [facility] 01-09-2025 10:12-0400 Systolic blood pressure 168 mm[Hg] Petra Beckman APRN.GRAIN DRIER Work Phone: [facility] 12-21-2024 10:48-0400 Body mass index (BMI) [Ratio] 54.21 kg/m2 Kedar Varela PA Work Phone: [facility] 12-21-2024 10:48-0400 Body temperature 97.5 [degF] Krislyn Aberegg PA Work Phone: [facility] 12-21-2024 10:48-0400 Body weight 125.9 kg Krislyn Aberegg PA Work Phone: [facility] 12-21-2024 10:48-0400 Diastolic blood pressure 94 mm[Hg] Krislyn Aberegg PA Work Phone: [facility] 12-21-2024 10:48-0400 Heart rate 120 /min Krislyn Aberegg PA Work Phone: [facility] 12-21-2024 10:48-0400 Respiratory rate 20 /min Krislyn Aberegg PA Work Phone: [facility] 12-21-2024 10:48-0400 SaO2% (BldA) [Mass fraction] 97 % Krislyn Aberegg PA Work Phone: [facility] 12-21-2024 10:48-0400 Systolic blood pressure 148 mm[Hg] Krislyn Aberegg PA Work Phone: [facility] 11-22-2024 07:13-0400 Body mass index (BMI) [Ratio] 53.73 kg/m2 Krislyn Aberegg PA Work Phone: [facility] 11-22-2024 07:13-0400 Body temperature 97 [degF] Krislyn Aberegg PA Work Phone: [facility] 11-22-2024 07:13-0400 Body weight 124.8 kg Krislyn Aberegg PA Work Phone: [facility] 11-22-2024 07:13-0400 Diastolic blood pressure 78 mm[Hg] Krislyn Aberegg PA Work Phone: [facility] 11-22-2024 07:13-0400 Heart rate 112 /min Krislyn Aberegg PA Work Phone: [facility] 11-22-2024 07:13-0400 Respiratory rate 18 /min Krislyn Aberegg PA Work Phone: [facility] 11-22-2024 07:13-0400 SaO2% (BldA) [Mass fraction] 98 % Krislyn Aberegg PA Work Phone: [facility] 11-22-2024 07:13-0400 Systolic blood pressure 116 mm[Hg] Krislyn Aberegg PA Work Phone: [facility] 11-19-2024 19:03-0400 Body mass index (BMI) [Ratio] 54.08 kg/m2 Rosaura Santacruz MEDICAL STAFF SERVICES MANAGER.GRAIN DRIER Work Phone: [facility] 11-19-2024 19:03-0400 Body temperature 98.29 [degF] Rosaura Santacruz MEDICAL STAFF SERVICES MANAGER.GRAIN DRIER Work Phone: [facility] 11-19-2024 19:03-0400 Body weight 125.6 kg Rosaura Santacruz MEDICAL STAFF SERVICES MANAGER.GRAIN [employer]ER Work Phone: [facility] 11-19-2024 19:03-0400 Diastolic blood pressure 76 mm[Hg] Rosaura Santacruz MEDICAL STAFF SERVICES MANAGER.GRAIN DRIER Work Phone: [facility] 11-19-2024 19:03-0400 Heart rate 105 /min Rosaura Santacruz MEDICAL STAFF SERVICES MANAGER.GRAIN [employer]RIER Work Phone: [facility] 11-19-2024 19:03-0400 Respiratory rate 18 /min Rosaura Santacruz MEDICAL STAFF SERVICES MANAGER.GRAIN DRIER Work Phone: [facility] 11-19-2024 19:03-0400 SaO2% (BldA) [Mass fraction] 98 % Rosaura Santacruz MEDICAL STAFF SERVICES MANAGER.GRAIN DRIER Work Phone: [facility] 11-19-2024 19:03-0400 Systolic blood pressure 112 mm[Hg] Rosaura Santacruz MEDICAL STAFF SERVICES MANAGER.GRAIN DRIER Work Phone: [facility] 10-31-2024 16:30-0400 Body mass index (BMI) [Ratio] 53.82 kg/m2 Nicholas Dorantes MEDICAL STAFF SERVICES MANAGER.GRAIN DRIER Work Phone: [facility] 10-31-2024 16:30-0400 Body temperature 99.3 [degF] [facility] MEDICAL STAFF SERVICES MANAGER.GRAIN DRIER Work Phone: [facility] 10-31-2024 16:30-0400 Body weight 125 kg Nicholas Jayna MEDICAL STAFF SERVICES MANAGER.GRAIN [employer]RIER Work Phone: [facility] 10-31-2024 16:30-0400 Diastolic blood pressure 80 mm[Hg] Nicholas Dorantes MEDICAL STAFF SERVICES MANAGER.GRAIN DRIER Work Phone: [facility] 10-31-2024 16:30-0400 Heart rate 99 /min [facility] MEDICAL STAFF SERVICES MANAGER.GRAIN DRIER Work Phone: [facility] 10-31-2024 16:30-0400 Respiratory rate 18 /min Nicholas Brightceferino MEDICAL STAFF SERVICES MANAGER.GRAIN DRIER Work Phone: [facility] 10-31-2024 16:30-0400 SaO2% (BldA) [Mass fraction] 98 % Nicholas Novoarubiceferino MEDICAL STAFF SERVICES MANAGER.GRAIN DRIER Work Phone: [facility] 10-31-2024 16:30-0400 Systolic blood pressure 122 mm[Hg] Nicholas Novoarubiceferino MEDICAL STAFF SERVICES MANAGER.GRAIN DRIER Work Phone: [facility] 10-24-2024 11:36-0400 Body mass index (BMI) [Ratio] 53.73 kg/m2 Steven Harris MEDICAL STAFF SERVICES MANAGER.GRAIN DRIER Work Phone: [facility] 10-24-2024 11:36-0400 Body temperature 97.9 [degF] Steven Harris MEDICAL STAFF SERVICES MANAGER.GRAIN DRIER Work Phone: [facility] 10-24-2024 11:36-0400 Body weight 124.8 kg Steven Harris MEDICAL STAFF SERVICES MANAGER.GRAIN DRIER Work Phone: [facility] 10-24-2024 11:36-0400 Diastolic blood pressure 80 mm[Hg] Steven Harris MEDICAL STAFF SERVICES MANAGER.GRAIN DRIER Work Phone: [facility] 10-24-2024 11:36-0400 Heart rate 99 /min Steven Harris MEDICAL STAFF SERVICES MANAGER.GRAIN DRIER Work Phone: [facility] 10-24-2024 11:36-0400 Respiratory rate 16 /min Steven Harris MEDICAL STAFF SERVICES MANAGER.GRAIN DRIER Work Phone: [facility] 10-24-2024 11:36-0400 SaO2% (BldA) [Mass fraction] 99 % Steven Harris MEDICAL STAFF SERVICES MANAGER.GRAIN DRIER Work Phone: [facility] 10-24-2024 11:36-0400 Systolic blood pressure 130 mm[Hg] Steven Harris MEDICAL STAFF SERVICES MANAGER.GRAIN DRIER Work Phone: [facility] 10-16-2024 18:59-0500 Body height 152.4 cm Faustina Carcamo MD Work Phone: [facility] 10-16-2024 18:59-0500 Body mass index (BMI) [Ratio] 53.09 kg/m2 Faustina Carcamo MD Work Phone: [facility] 10-16-2024 18:59-0500 Body temperature 97.9 [degF] Faustina Carcamo MD Work Phone: [facility] 10-16-2024 18:59-0500 Body weight 123.3 kg Faustina Carcamo MD Work Phone: [facility] 10-16-2024 18:59-0500 Diastolic blood pressure 70 mm[Hg] Faustina Carcamo MD Work Phone: [facility] 10-16-2024 18:59-0500 Heart rate 102 /min Faustina Carcamo MD Work Phone: [facility] 10-16-2024 18:59-0500 Respiratory rate 14 /min Faustina Carcamo MD Work Phone: [facility] 10-16-2024 18:59-0500 SaO2% (BldA) [Mass fraction] 98 % Faustina Carcamo MD Work Phone: [facility] 10-16-2024 18:59-0500 Systolic blood pressure 136 mm[Hg] Faustina Carcamo MD Work Phone: [facility] 09-25-2024 08:58-0500 Body mass index (BMI) [Ratio] 53.39 kg/m2 Rosaura Santacruz MEDICAL STAFF SERVICES MANAGER.GRAIN DRIER Work Phone: [facility] 09-25-2024 08:58-0500 Body temperature 98.49 [degF] Rosaura Santacruz MEDICAL STAFF SERVICES MANAGER.GRAIN DRIER Work Phone: [facility] 09-25-2024 08:58-0500 Body weight 124 kg Rosaura Santacruz MEDICAL STAFF SERVICES MANAGER.GRAIN DRIER Work Phone: [facility] 09-25-2024 08:58-0500 Diastolic blood pressure 100 mm[Hg] Rosaura Santacruz MEDICAL STAFF SERVICES MANAGER.GRAIN DRIER Work Phone: [facility] Comment on above: checked x 3 , states she has POTS 09-25-2024 08:58-0500 Heart rate 125 /min Rosaura Santacruz MEDICAL STAFF SERVICES MANAGER.GRAIN DRIER Work Phone: [facility] 09-25-2024 08:58-0500 Respiratory rate 20 /min Rosaura Santacruz MEDICAL STAFF SERVICES MANAGER.GRAIN DRIER Work Phone: [facility] 09-25-2024 08:58-0500 SaO2% (BldA) [Mass fraction] 96 % Rosaura Santacruz MEDICAL STAFF SERVICES MANAGER.GRAIN DRIER Work Phone: [facility] 09-25-2024 08:58-0500 Systolic blood pressure 137 mm[Hg] Rosaura Santacruz MEDICAL STAFF SERVICES MANAGER.GRAIN DRIER Work Phone: [facility] Comment on above: checked x 3 , states she has POTS 07-11-2024 11:08-0500 Body mass index (BMI) [Ratio] 55.46 kg/m2 Devante Clutter PA-C Work Phone: [facility] 07-11-2024 11:08-0500 Body temperature 98.71 [degF] Devante Clutter PA-C Work Phone: [facility] 07-11-2024 11:08-0500 Body weight 128.8 kg Devante Clutter PA-C Work Phone: [facility] 07-11-2024 11:08-0500 Diastolic blood pressure 80 mm[Hg] Devante Clutter PA-C Work Phone: [facility] 07-11-2024 11:08-0500 Heart rate 91 /min Devante Clutter PA-C Work Phone: [facility] 07-11-2024 11:08-0500 Respiratory rate 16 /min Devante Clutter PA-C Work Phone: [facility] 07-11-2024 11:08-0500 SaO2% (BldA) [Mass fraction] 98 % Devante Clutter PA-C Work Phone: [facility] 07-11-2024 11:08-0500 Systolic blood pressure 132 mm[Hg] Devante Clutter PA-C Work Phone: [facility] 07-04-2024 15:23-0500 Heart rate 88 /min Moon Ruthann MEDICAL STAFF SERVICES MANAGER.GRAIN DRIER Work Phone: [facility] 07-04-2024 15:00-0500 Body height 152.4 cm Moon Ruthann MEDICAL STAFF SERVICES MANAGER.GRAIN DRIER Work Phone: [facility] 07-04-2024 15:00-0500 Body mass index (BMI) [Ratio] 54.16 kg/m2 Moon Ruthann MEDICAL STAFF SERVICES MANAGER.GRAIN DRIER Work Phone: [facility] 07-04-2024 15:00-0500 Body weight 125.8 kg Moon Ruthann MEDICAL STAFF SERVICES MANAGER.GRAIN DRIER Work Phone: [facility] 07-04-2024 15:00-0500 Diastolic blood pressure 80 mm[Hg] Moon Ruthann MEDICAL STAFF SERVICES MANAGER.GRAIN DRIER Work Phone: [facility] 07-04-2024 15:00-0500 Respiratory rate 14 /min Moon Ruthann MEDICAL STAFF SERVICES MANAGER.GRAIN DRIER Work Phone: [facility] 07-04-2024 15:00-0500 SaO2% (BldA) [Mass fraction] 99 % Moon Ruthann MEDICAL STAFF SERVICES MANAGER.GRAIN DRIER Work Phone: [facility] 07-04-2024 15:00-0500 Systolic blood pressure 136 mm[Hg] Moon Encinas MEDICAL STAFF SERVICES MANAGER.GRAIN DRIER Work Phone: [facility] 05-14-2024 09:35-0400 Body height 153.[address] [facility] 05-14-2024 09:35-0400 Body mass index (BMI) [Ratio] 51.67 kg/m2 Rossy Cleveland RD [facility] 05-14-2024 09:35-0400 Body weight 122.[address] [facility] 04-03-2024 06:59-0400 Diastolic blood pressure 83 mm[Hg] Genaro Morales MEDICAL STAFF SERVICES MANAGER.JOB DEVELOPER FOR [employer] Work Phone: [facility] 04-03-2024 06:59-0400 Heart rate 102 /min Genaro Morales MEDICAL STAFF SERVICES MANAGER.JOB DEVELOPER FOR [employer] Work Phone: [facility] 04-03-2024 06:59-0400 Systolic blood pressure 138 mm[Hg] Genaro Morales MEDICAL STAFF SERVICES MANAGER.JOB DEVELOPER FOR [employer] Work Phone: [facility] 04-03-2024 06:58-0400 Body mass index (BMI) [Ratio] 51.71 kg/m2 Genaro Morales MEDICAL STAFF SERVICES MANAGER.JOB DEVELOPER FOR [employer] Work Phone: [facility] 04-03-2024 06:58-0400 Body weight 122.1 kg Genaro Morales MEDICAL STAFF SERVICES MANAGER.JOB DEVELOPER FOR [employer] Work Phone: [facility] 04-03-2024 06:58-0400 Respiratory rate 16 /min Genaro Morales MEDICAL STAFF SERVICES MANAGER.JOB DEVELOPER FOR [employer] Work Phone: [facility] 03-29-2024 09:58-0400 Body mass index (BMI) [Ratio] 51.63 kg/m2 Nurse Wstr Work Phone: [facility] 03-29-2024 09:58-0400 Body weight 121.93 kg Nurse Wstr Work Phone: [facility] 03-29-2024 09:58-0400 Diastolic blood pressure 74 mm[Hg] Nurse Wstr Work Phone: [facility] 03-29-2024 09:58-0400 Systolic blood pressure 122 mm[Hg] Nurse Wstr Work Phone: [facility] 03-15-2024 09:27-0400 Body mass index (BMI) [Ratio] 51.29 kg/m2 Karen Jenkins MD Work Phone: [facility] 03-15-2024 09:27-0400 Body weight 121.11 kg Karen Jenkins MD Work Phone: [facility] 03-15-2024 09:27-0400 Diastolic blood pressure 96 mm[Hg] Karen Jenkins MD Work Phone: [facility] 03-15-2024 09:27-0400 Systolic blood pressure 166 mm[Hg] Karen Jenkins MD Work Phone: [facility] 02-27-2024 15:23-0400 Body height 153.7 cm Ayaan Rowley MEDICAL STAFF SERVICES MANAGER.CNM Work Phone: [facility] 02-27-2024 15:23-0400 Body mass index (BMI) [Ratio] 51.09 kg/m2 Ayaan Plotts MEDICAL STAFF SERVICES MANAGER.CNM Work Phone: [facility] 02-27-2024 15:23-0400 Body weight 120.66 kg Ayaan Harryts MEDICAL STAFF SERVICES MANAGER.CNM Work Phone: [facility] 02-27-2024 15:23-0400 Diastolic blood pressure 102 mm[Hg] Ayaan Plotts MEDICAL STAFF SERVICES MANAGER.CNM Work Phone: [facility] 02-27-2024 15:23-0400 Systolic blood pressure 156 mm[Hg] Ayaan Plotts MEDICAL STAFF SERVICES MANAGER.CNM Work Phone: [facility] 01-17-2024 11:31-0400 Body mass index (BMI) [Ratio] 50.83 kg/m2 Karen Jenkins MD Work Phone: [facility] [facility] 01-17-2024 11:31-0400 Body weight 122.02 kg Karen Jenkins MD Work Phone: [facility] 01-17-2024 11:31-0400 Diastolic blood pressure 88 mm[Hg] Karen Jenkins MD Work Phone: [facility] 01-17-2024 11:31-0400 Systolic blood pressure 138 mm[Hg] Karen Jenkins MD Work Phone: [facility] 01-02-2024 16:42-0400 Body mass index (BMI) [Ratio] 50.64 kg/m2 Faustina Carcamo MD Work Phone: [facility] 01-02-2024 16:42-0400 Body temperature 98.6 [degF] Faustina Carcamo MD Work Phone: [facility] 01-02-2024 16:42-0400 Body weight 121.56 kg Faustina Carcamo MD Work Phone: [facility] 01-02-2024 16:42-0400 Diastolic blood pressure 78 mm[Hg] Faustina Carcamo MD Work Phone: [facility] 01-02-2024 16:42-0400 Heart rate 106 /min Faustina Carcamo MD Work Phone: [facility] 01-02-2024 16:42-0400 Respiratory rate 18 /min Faustina Carcamo MD Work Phone: [facility] 01-02-2024 16:42-0400 SaO2% (BldA) [Mass fraction] 98 % Faustina Carcamo MD Work Phone: [facility] 01-02-2024 16:42-0400 Systolic blood pressure 122 mm[Hg] Faustina Carcamo MD Work Phone: [facility] 12-14-2023 12:51-0400 Body mass index (BMI) [Ratio] 51.11 kg/m2 Anton Moomaw MEDICAL STAFF SERVICES MANAGER.GRAIN DRIER Work Phone: [facility] 12-14-2023 12:51-0400 Body temperature 98.29 [degF] Anton Fredomafranc MEDICAL STAFF SERVICES MANAGER.GRAIN DRIER Work Phone: [facility] 12-14-2023 12:51-0400 Body weight 122.7 kg Anton Moomaw MEDICAL STAFF SERVICES MANAGER.GRAIN DRIER Work Phone: [facility] 12-14-2023 12:51-0400 Diastolic blood pressure 82 mm[Hg] Anton Moomaw MEDICAL STAFF SERVICES MANAGER.GRAIN DRIER Work Phone: [facility] 12-14-2023 12:51-0400 Heart rate 128 /min Anton Moomaw MEDICAL STAFF SERVICES MANAGER.GRAIN DRIER Work Phone: [facility] 12-14-2023 12:51-0400 Respiratory rate 21 /min Anton Moomaw MEDICAL STAFF SERVICES MANAGER.GRAIN DRIER Work Phone: [facility] 12-14-2023 12:51-0400 SaO2% (BldA) [Mass fraction] 97 % Anton Moomaw MEDICAL STAFF SERVICES MANAGER.GRAIN DRIER Work Phone: [facility] 12-14-2023 12:51-0400 Systolic blood pressure 138 mm[Hg] Anton Moomaw MEDICAL STAFF SERVICES MANAGER.GRAIN DRIER Work Phone: [facility] 12-08-2023 14:47-0400 Body mass index (BMI) [Ratio] 51.94 kg/m2 Isela Street MD Work Phone: [facility] 12-08-2023 14:47-0400 Body weight 124.[address] MD Work Phone: [facility] 12-08-2023 14:47-0400 Diastolic blood pressure 89 mm[Hg] Isela Street MD Work Phone: [facility] 12-08-2023 14:47-0400 Heart rate 89 /min Isela Street MD Work Phone: [facility] 12-08-2023 14:47-0400 SaO2% (BldA) [Mass fraction] 97 % Isela Street MD Work Phone: [facility] 12-08-2023 14:47-0400 Systolic blood pressure 126 mm[Hg] Isela Street MD Work Phone: [facility] 10-27-2023 09:26-0400 Body weight 123.5 kg Qian Pena APRN.GRAIN DRIER Work Phone: [facility] 10-27-2023 09:26-0400 Diastolic blood pressure 90 mm[Hg] iQan Pena APRN.GRAIN DRIER Work Phone: [facility] 10-27-2023 09:26-0400 Heart rate 87 /min Qian Pena MEDICAL STAFF SERVICES MANAGER.GRAIN DRIER Work Phone: [facility] 10-27-2023 09:26-0400 SaO2% (BldA) [Mass fraction] 96 % Qian Pena MEDICAL STAFF SERVICES MANAGER.GRAIN DRIER Work Phone: [facility] 10-27-2023 09:26-0400 Systolic blood pressure 136 mm[Hg] Qian Pena MEDICAL STAFF SERVICES MANAGER.GRAIN DRIER Work Phone: [facility] 10-14-2023 11:07-0500 Body weight 123.83 kg Genaro Morales MEDICAL STAFF SERVICES MANAGER.JOB DEVELOPER FOR [employer] Work Phone: [facility] 10-14-2023 11:07-0500 Diastolic blood pressure 88 mm[Hg] Genaro Morales MEDICAL STAFF SERVICES MANAGER.JOB DEVELOPER FOR [employer] Work Phone: [facility] 10-14-2023 11:07-0500 Heart rate 128 /min Genaro Morales MEDICAL STAFF SERVICES MANAGER.JOB DEVELOPER FOR [employer] Work Phone: [facility] 10-14-2023 11:07-0500 Respiratory rate 16 /min Genaro Morales MEDICAL STAFF SERVICES MANAGER.JOB DEVELOPER FOR [employer] Work Phone: [facility] 10-14-2023 11:07-0500 Systolic blood pressure 118 mm[Hg] Genaro Morales MEDICAL STAFF SERVICES MANAGER.JOB DEVELOPER FOR [employer] Work Phone: [facility] 07-22-2023 13:41-0500 Body height 154.9 cm Joe Contreras MD Work Phone: [facility] 07-22-2023 13:41-0500 Body weight 121.75 kg Joe Contreras MD Work Phone: [facility] 07-22-2023 13:41-0500 Diastolic blood pressure 84 mm[Hg] Joe Contreras MD Work Phone: [facility] 07-22-2023 13:41-0500 Systolic blood pressure 126 mm[Hg] Joe Contreras MD Work Phone: [facility] 06-06-2023 08:32-0400 Body temperature 97.59 [degF] Patsy Towers PA-C Work Phone: [facility] 06-06-2023 08:32-0400 Body weight 120.66 kg Patsy Towers PA-C Work Phone: [facility] 06-06-2023 08:32-0400 Diastolic blood pressure 93 mm[Hg] Patsy Towers PA-C Work Phone: [facility] 06-06-2023 08:32-0400 Heart rate 111 /min Patsy Towers PA-C Work Phone: [facility] 06-06-2023 08:32-0400 SaO2% (BldA) [Mass fraction] 98 % Patsy Towers PA-C Work Phone: [facility] 06-06-2023 08:32-0400 Systolic blood pressure 131 mm[Hg] Patsy Towers PA-C Work Phone: [facility] 05-20-2023 07:32-0400 Body weight 122.47 kg Genaro Morales MEDICAL STAFF SERVICES MANAGER.JOB DEVELOPER FOR [employer] Work Phone: [facility] 05-20-2023 07:32-0400 Diastolic blood pressure 78 mm[Hg] Genaro Morales MEDICAL STAFF SERVICES MANAGER.JOB DEVELOPER FOR [employer] Work Phone: [facility] 05-20-2023 07:32-0400 Heart rate 91 /min Genaro Morales MEDICAL STAFF SERVICES MANAGER.JOB DEVELOPER FOR [employer] Work Phone: [facility] 05-20-2023 07:32-0400 Respiratory rate 16 /min Genaro Morales MEDICAL STAFF SERVICES MANAGER.JOB DEVELOPER FOR [employer] Work Phone: [facility] 05-20-2023 07:32-0400 SaO2% (BldA) [Mass fraction] 97 % Genaro Garcias MEDICAL STAFF SERVICES MANAGER.JOB DEVELOPER FOR [employer] Work Phone: [facility] 05-20-2023 07:32-0400 Systolic blood pressure 119 mm[Hg] Genaro Garcias MEDICAL STAFF SERVICES MANAGER.JOB DEVELOPER FOR [employer] Work Phone: [facility] 02-25-2023 16:03-0400 Body height 154.9 cm Ayaan Harryts MEDICAL STAFF SERVICES MANAGER.CNM Work Phone: [facility] 02-25-2023 16:03-0400 Body weight 118.75 kg Ayaan Rowley MEDICAL STAFF SERVICES MANAGER.CNM Work Phone: [facility] 02-25-2023 16:03-0400 Diastolic blood pressure 76 mm[Hg] Ayaan Harryts MEDICAL STAFF SERVICES MANAGER.CNM Work Phone: [facility] 02-25-2023 16:03-0400 Systolic blood pressure 124 mm[Hg] Ayaan Harryts MEDICAL STAFF SERVICES MANAGER.CNM Work Phone: [facility] 02-07-2023 11:11-0400 Body temperature 97.5 [degF] Krislyn Aberegg PA Work Phone: [facility] 02-07-2023 11:11-0400 Diastolic blood pressure 64 mm[Hg] Krislyn Aberegg PA Work Phone: [facility] 02-07-2023 11:11-0400 Heart rate 65 /min Krislyn Aberegg PA Work Phone: [facility] 02-07-2023 11:11-0400 Respiratory rate 21 /min Krislyn Aberegg PA Work Phone: [facility] 02-07-2023 11:11-0400 SaO2% (BldA) [Mass fraction] 98 % Krislyn Aberegg PA Work Phone: [facility] 02-07-2023 11:11-0400 Systolic blood pressure 100 mm[Hg] Krislyn Aberegg PA Work Phone: [facility] 12-03-2022 14:14-0400 Body weight 118.89 kg Silvia Tucker MD Work Phone: [facility] 12-03-2022 14:14-0400 Diastolic blood pressure 88 mm[Hg] Silvia Tucker MD Work Phone: [facility] 12-03-2022 14:14-0400 Heart rate 110 /min Silvia Tucker MD Work Phone: [facility] 12-03-2022 14:14-0400 Systolic blood pressure 132 mm[Hg] Silvia Tucker MD Work Phone: [facility] 09-20-2022 19:49-0500 Body temperature 97.59 [degF] Miriam Ortiz MD Work Phone: [facility] 09-20-2022 19:49-0500 Diastolic blood pressure 86 mm[Hg] Miriam Ortiz MD Work Phone: [facility] 09-20-2022 19:49-0500 Heart rate 102 /min Miriam Ortiz MD Work Phone: [facility] 09-20-2022 19:49-0500 Respiratory rate 16 /min Miriam Ortiz MD Work Phone: [facility] 09-20-2022 19:49-0500 SaO2% (BldA) [Mass fraction] 98 % Miriam Ortiz MD Work Phone: [facility] 09-20-2022 19:49-0500 Systolic blood pressure 133 mm[Hg] Miriam Ortiz MD Work Phone: [facility] 08-11-2022 16:52-0500 Body temperature 97.2 [degF] Faustina Carcamo MD Work Phone: [facility] 08-11-2022 16:52-0500 Body weight 117.03 kg Faustina Carcamo MD Work Phone: [facility] 08-11-2022 16:52-0500 Diastolic blood pressure 68 mm[Hg] Faustina Carcamo MD Work Phone: [facility] 08-11-2022 16:52-0500 Heart rate 107 /min Faustina Carcamo MD Work Phone: [facility] 08-11-2022 16:52-0500 Respiratory rate 18 /min Faustina Carcamo MD Work Phone: [facility] 08-11-2022 16:52-0500 SaO2% (BldA) [Mass fraction] 99 % Faustina Carcamo MD Work Phone: [facility] 08-11-2022 16:52-0500 Systolic blood pressure 122 mm[Hg] Faustina Carcamo MD Work Phone: [facility] 07-14-2022 15:41-0500 Body weight 120.93 kg Ayaan Rowley MEDICAL STAFF SERVICES MANAGER.CNM Work Phone: [facility] 07-14-2022 15:41-0500 Diastolic blood pressure 72 mm[Hg] Ayaan Harryts MEDICAL STAFF SERVICES MANAGER.CNM Work Phone: [facility] 07-14-2022 15:41-0500 Systolic blood pressure 128 mm[Hg] Ayaan Rowley MEDICAL STAFF SERVICES MANAGER.CNM Work Phone: [facility] 06-28-2022 15:33-0500 Body temperature 97.39 [degF] Marina Goodrich MEDICAL STAFF SERVICES MANAGER-GRAIN DRIER Work Phone: [facility] 06-28-2022 15:33-0500 Diastolic blood pressure 82 mm[Hg] Marina Goodrich MEDICAL STAFF SERVICES MANAGER-GRAIN DRIER Work Phone: [facility] 06-28-2022 15:33-0500 Heart rate 92 /min Marina Goodrich MEDICAL STAFF SERVICES MANAGER-GRAIN DRIER Work Phone: [facility] 06-28-2022 15:33-0500 Respiratory rate 16 /min Marina Goodrich MEDICAL STAFF SERVICES MANAGER-GRAIN DRIER Work Phone: [facility] 06-28-2022 15:33-0500 SaO2% (BldA) [Mass fraction] 94 % Marina Goodrich MEDICAL STAFF SERVICES MANAGER-GRAIN DRIER Work Phone: [facility] 06-28-2022 15:33-0500 Systolic blood pressure 119 mm[Hg] Marina Goodrich MEDICAL STAFF SERVICES MANAGER-GRAIN DRIER Work Phone: [facility] 05-05-2022 12:30-0400 Body mass index (BMI) [Ratio] 49.13 kg/m2 Casey Kern MD Work Phone: [facility] 05-05-2022 12:30-0400 Body weight 121.11 kg Casey Kern MD Work Phone: [facility] 05-05-2022 12:30-0400 Diastolic blood pressure 76 mm[Hg] Casey Kern MD Work Phone: [facility] 05-05-2022 12:30-0400 Heart rate 78 /min Casey Kern MD Work Phone: [facility] 05-05-2022 12:30-0400 SaO2% (BldA) [Mass fraction] 99 % Casey Kern MD Work Phone: [facility] 05-05-2022 12:30-0400 Systolic blood pressure 102 mm[Hg] Casey Kern MD Work Phone: [facility] 05-02-2022 09:32-0400 Body height 156.2 cm Ovi Herrera DO Work Phone: [facility] 05-02-2022 09:32-0400 Body mass index (BMI) [Ratio] 50.38 kg/m2 Ovi Herrera DO Work Phone: [facility] 05-02-2022 09:32-0400 Body temperature 98.1 [degF] Ovi Herrera DO Work Phone: [facility] 05-02-2022 09:32-0400 Body weight 122.92 kg Ovi Herrera DO Work Phone: [facility] 05-02-2022 09:32-0400 Diastolic blood pressure 82 mm[Hg] Ovi Herrera DO Work Phone: [facility] 05-02-2022 09:32-0400 Heart rate 93 /min Ovi Herrera DO Work Phone: [facility] 05-02-2022 09:32-0400 Respiratory rate 17 /min Ovi Herrera DO Work Phone: [facility] 05-02-2022 09:32-0400 SaO2% (BldA) [Mass fraction] 95 % Ovi Herrera DO Work Phone: [facility] 05-02-2022 09:32-0400 Systolic blood pressure 135 mm[Hg] Ovi Herrera DO Work Phone: [facility] 04-16-2022 08:05-0400 Body height 157 cm Lennyu Mingo MBBS Work Phone: [facility] 04-16-2022 08:05-0400 Body mass index (BMI) [Ratio] 49.87 kg/m2 Lucianonu Mingo MBBS Work Phone: [facility] 04-16-2022 08:05-0400 Body weight 122.92 kg Lucianonu Mingo MBBS Work Phone: [facility] 04-16-2022 08:05-0400 Diastolic blood pressure 88 mm[Hg] Lucianonu Mingo MBBS Work Phone: [facility] 04-16-2022 08:05-0400 Heart rate 102 /min Lucianonu Mingo MBBS Work Phone: [facility] 04-16-2022 08:05-0400 SaO2% (BldA) [Mass fraction] 98 % Lucianoamariliskrishna Mingo MBBS Work Phone: [facility] 04-16-2022 08:05-0400 Systolic blood pressure 128 mm[Hg] Lucianoamariliskrishna Mingo MBBS Work Phone: [facility] 03-30-2022 17:26-0400 Body weight 120.2 kg Faustina Carcamo MD Work Phone: [facility] 03-30-2022 17:26-0400 Diastolic blood pressure 70 mm[Hg] Faustina Carcamo MD Work Phone: [facility] 03-30-2022 17:26-0400 Heart rate 100 /min Faustina Carcamo MD Work Phone: [facility] 03-30-2022 17:26-0400 SaO2% (BldA) [Mass fraction] 97 % Faustina Carcamo MD Work Phone: [facility] 03-30-2022 17:26-0400 Systolic blood pressure 102 mm[Hg] Faustina Carcamo MD Work Phone: [facility] 01-13-2022 09:05-0400 Body weight 120.66 kg Ayaan Rowley MEDICAL STAFF SERVICES MANAGER.CNM Work Phone: [facility] 01-13-2022 09:05-0400 Diastolic blood pressure 76 mm[Hg] Ayaan Rowley MEDICAL STAFF SERVICES MANAGER.CNM Work Phone: [facility] 01-13-2022 09:05-0400 Systolic blood pressure 122 mm[Hg] Ayaan Harryts MEDICAL STAFF SERVICES MANAGER.CNM Work Phone: [facility] 01-05-2022 14:23-0400 Body weight 119.3 kg Genaro Morales MEDICAL STAFF SERVICES MANAGER.JOB DEVELOPER FOR [employer] Work Phone: [facility] 01-05-2022 14:23-0400 Diastolic blood pressure 88 mm[Hg] Genaro Garcias MEDICAL STAFF SERVICES MANAGER.JOB DEVELOPER FOR [employer] Work Phone: [facility] 01-05-2022 14:23-0400 Heart rate 114 /min Genaro Garcias MEDICAL STAFF SERVICES MANAGER.JOB DEVELOPER FOR [employer] Work Phone: [facility] 01-05-2022 14:23-0400 Respiratory rate 16 /min Genaro Garcias MEDICAL STAFF SERVICES MANAGER.JOB DEVELOPER FOR [employer] Work Phone: [facility] 01-05-2022 14:23-0400 SaO2% (BldA) [Mass fraction] 97 % Genaro Morales MEDICAL STAFF SERVICES MANAGER.JOB DEVELOPER FOR [employer] Work Phone: [facility] 01-05-2022 14:23-0400 Systolic blood pressure 122 mm[Hg] Genaro Garcias MEDICAL STAFF SERVICES MANAGER.JOB DEVELOPER FOR [employer] Work Phone: [facility] 12-04-2021 09:34-0400 Body weight 120.66 kg Ayaan Rowley MEDICAL STAFF SERVICES MANAGER.CNM Work Phone: [facility] 12-04-2021 09:34-0400 Diastolic blood pressure 68 mm[Hg] yAaan Harryts MEDICAL STAFF SERVICES MANAGER.CNM Work Phone: [facility] 12-04-2021 09:34-0400 Systolic blood pressure 112 mm[Hg] Ayaan Plotts MEDICAL STAFF SERVICES MANAGER.CNM Work Phone: [facility] 11-17-2021 12:14-0400 Body height 152.4 cm Yair Lyons MD Work Phone: [facility] 11-17-2021 12:14-0400 Body weight 120.66 kg Yair Lyons MD Work Phone: [facility] 09-22-2021 18:17-0500 Body weight 117.94 kg Faustina Carcamo MD Work Phone: [facility] 09-22-2021 18:17-0500 Diastolic blood pressure 78 mm[Hg] Faustina Carcamo MD Work Phone: [facility] 09-22-2021 18:17-0500 Heart rate 86 /min Faustina Carcamo MD Work Phone: [facility] 09-22-2021 18:17-0500 Systolic blood pressure 112 mm[Hg] Faustina Carcamo MD Work Phone: [facility] Encounters Encounter Date Encounter Type Care Provider Facility Start: 02-23-2025 End: 02-23-2025 ambulatory Rebecca Maloney RN NURSE SOLAR PANEL TECHNICIAN Start: 02-23-2025 End: 02-23-2025 Patient encounter procedure Rebecca Maloney RN NURSE SOLAR PANEL TECHNICIAN Comment on above: Clinical Update Start: 02-20-2025 End: 02-20-2025 Patient encounter procedure Michelle Rojas APRN.GRAIN DRIER Work Phone: OB/Gynecology Comment on above: Encounter for gyneco logical examination (general) (routine) without abnormal findings (Primary Dx); Screening for cervical cancer; Encounter for screening for human papillomavirus (HPV); Screen for STD (sexually transmitted disease); Immunocompromised state (HCC) Start: 02-20-2025 End: 02-20-2025 Patient encounter status Michelle Rojas APRN.CNP Work Phone: [facility] Work Phone: Start: 01-31-2025 End: 01-31-2025 Specialty Pharmacy Ramin Glasgow [facility] Comment on above: SPP Inflammatory Con ditions - Medication Refill (Ilaris ) Start: 01-27-2025 End: 01-27-2025 Emergency department patient visit [facility] Facility:[facility] Start: 01-21-2025 End: 01-21-2025 ambulatory [facility] Facility:[facility] [place] Start: 01-11-2025 End: 01-11-2025 ambulatory [facility] Start: 01-11-2025 End: 01-11-2025 Patient encounter procedure [facility] Comment on above: Update from [facility] Start: 01-09-2025 End: 01-09-2025 Patient encounter procedure Petra Beckman APRN.GRAIN DRIER Work Phone: [facility] Comment on above: Panic disorder with agoraphobia (Primary Dx); Immunosuppression (HCC); Periodic fever syndrome (HCC); Gastroenteritis Start: 01-09-2025 End: 01-09-2025 ambulatory [facility] Facility:[facility] Start: 12-21-2024 End: 12-21-2024 Patient encounter procedure Kedar BOATENG Work Phone: [facility] Comment on above: Acute non-recurrent maxillary sinusitis (Primary Dx); Sore throat Start: 12-21-2024 End: 12-21-2024 ambulatory KEDAR VARELA Facility:[facility] Start: 12-18-2024 End: 12-18-2024 Telephone encounter Qian Hillman MD Work Phone: OB/Gynecology Comment on above: Patient Question (Qu estions before apt 12/19) Start: 12-18-2024 End: 12-18-2024 Patient encounter procedure Silvia Tucker MD Work Phone: Rheumatology Comment on above: SO-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); Immunosuppression (HCC) Start: 12-18-2024 End: 12-18-2024 [facility] Facility:[facility] Start: 11-24-2024 End: 01-24-2025 Follow-up encounter Madhu Grande MD Work Phone: [facility] Start: 11-23-2024 End: 11-23-2024 [facility] Facility:[facility] Start: 11-23-2024 End: 11-26-2024 Telephone encounter [...] syndrome (HCC) Start: 11-22-2024 End: 11-22-2024 ambulatory [facility] Facility:[facility] Start: 11-22-2024 End: 11-22-2024 Patient encounter procedure Kedar BOATENG Work Phone: [facility] Comment on above: Sore throat (Primary Dx); Exudative tonsillitis Start: 11-19-2024 End: 11-19-2024 ambulatory [facility] Facility:[facility] Start: 11-19-2024 End: 11-19-2024 Patient encounter procedure Rosaura Santacruz MEDICAL STAFF SERVICES MANAGER.GRAIN DRIER Work Phone: [facility] Comment on above: Pharyngitis, unspeci fied etiology (Primary Dx) Start: 11-09-2024 End: 11-09-2024 Emergency department patient visit [facility] Facility:[facility] Start: 11-08-2024 End: 11-09-2024 ambulatory Diane Melendrez RN NURSE SOLAR PANEL TECHNICIAN Comment on above: Bradycardia Start: 10-31-2024 End: 10-31-2024 ambulatory [facility] Facility:[facility] Start: 10-31-2024 End: 10-31-2024 Office outpatient visit 25 minutes Nicholas Dorantes MEDICAL STAFF SERVICES MANAGER.GRAIN DRIER Work Phone: [facility] Comment on above: Laceration of [...] Faustina Carcamo MD Work Phone: [facility] Comment on above: Refill Request Start: 10-24-2024 End: 10-24-2024 Subsequent hospital visit by physician Xr [facility] Work Phone: Radiology Comment on above: Injury of left wrist , initial encounter [S69.92XA] Start: 10-24-2024 End: 10-24-2024 [facility] Facility:[facility] Start: 10-24-2024 End: 10-24-2024 Patient encounter procedure Steven Harris APRN.GRAIN DRIER Work Phone: [facility] Comment on above: Injury of left wrist , initial encounter (Primary Dx) Start: 10-17-2024 End: 10-17-2024 [facility] Facility:[facility] Start: 10-16-2024 End: 10-16-2024 Office outpatient visit 25 minutes Faustina Carcamo MD Work Phone: [facility] Comment on above: Vitamin D deficiency (Primary Dx); Other fatigue; Myalgias; Polyarthritis; Muscle weakness (generalized); Abnormal TSH Start: 10-16-2024 End: 10-16-2024 Specialty Pharmacy Ramin Glasgow [facility] Comment on above: SPP Inflammatory Con ditions - Medication Refill (Ilaris) Start: 09-25-2024 End: 11-25-2024 Follow-up encounter Rosaura Santacruz APRN.GRAIN DRIER Work Phone: [facility] Start: 09-25-2024 End: 09-25-2024 Patient encounter procedure Rosaura Santacruz APRN.GRAIN DRIER Work Phone: [facility] Comment on above: URI, acute (Primary Dx); Acute cough Start: 09-25-2024 End: 09-25-2024 [facility] Facility:[facility] Start: 09-25-2024 End: 09-25-2024 Subsequent hospital visit by physician Paco [facility] Work Phone: Radiology Comment on above: Acute cough [R05.1] Start: 09-13-2024 End: 09-13-2024 Specialty Pharmacy Ramin [facility] Comment on above: SPP Inflammatory Con ditions - Medication Refill (Ilaris) Start: 09-11-2024 End: 09-11-2024 ambulatory Moon Encinas MEDICAL STAFF SERVICES MANAGER.GRAIN DRIER Work Phone: [facility] Comment on above: Situational anxiety (Primary Dx) Start: 09-11-2024 End: 09-11-2024 Telemedicine consultation with patient Moon Encinas APRN.GRAIN DRIER Work Phone: [facility] Start: 09-06-2024 End: 09-07-2024 Telephone encounter Faustina Carcamo MD Work Phone: [facility] Comment on above: referral question Start: 08-26-2024 End: 08-27-2024 Refill Faustina Carcamo MD Work Phone: [facility] Comment on above: Refill Request Start: 08-20-2024 End: 08-20-2024 Office outpatient visit 15 minutes Faustina Carcamo MD Work Phone: Internal Medicine [place] Comment on above: PVC (premature ventr icular contraction) (Primary Dx); Panic attacks; Panic disorder with agoraphobia; PTSD (post-traumatic stress disorder); Postural orthostatic tachycardia syndrome (POTS); Pleurisy Start: 08-20-2024 End: 08-20-2024 ambulatory FAUSTINA CARCAMO Facility:[facility] Start: 08-02-2024 End: 08-02-2024 Specialty Pharmacy Ramin Glasgow [facility] Comment on above: SPP Inflammatory Con ditions - Medication Refill (Ilaris) Start: 07-30-2024 End: 07-30-2024 Telemedicine consultation with patient Silvia Tucker MD Work Phone: Rheumatology Start: 07-30-2024 End: 07-30-2024 ambulatory Silvia Tucker MD Work Phone: Rheumatology Comment on above: Periodic fever syndr ome (HCC) (Primary Dx); SO-JILLIAN (systemic onset juvenile idiopathic arthritis) (HCC); Immunosuppression (HCC) Start: 07-27-2024 End: 07-27-2024 [facility] Work [facility]: [facility] Comment on above: Dietary counseling a nd surveillance (Primary Dx); Bulimia nervosa, unspecified severity; Eating disorder, unspecified type; Obesity, Class III, BMI 40-49.9 (morbid obesity) (HCC) Start: 07-25-2024 End: 07-25-2024 Telephone encounter Silvia Tucker MD Work Phone: Rheumatology Comment on above: Patient Question Start: 07-20-2024 End: 07-20-2024 Emergency department patient visit [facility] Start: 07-19-2024 End: 07-19-2024 Telephone encounter Faustina Carcamo MD Work Phone: Internal Medicine [place] Comment on above: Patient Update; Medi cation Request Start: 07-11-2024 End: 07-11-2024 ambulatory [facility] Facility:[facility] Start: 07-11-2024 End: 07-11-2024 Office outpatient visit 25 minutes Devante Austin PA-C Work Phone: [facility] Comment on above: Acute recurrent sinu sitis, unspecified location (Primary Dx) Start: 07-04-2024 End: 07-04-2024 Patient encounter procedure Moon Encinas APRN.GRAIN DRIER Work Phone: Internal Medicine [place] Comment on above: Epigastric abdominal pain (Primary Dx); Heartburn Start: 07-04-2024 End: 07-04-2024 ambulatory [facility] Facility:[facility] Start: 07-02-2024 End: 07-02-2024 Specialty Pharmacy Ramin Glasgow [facility] Comment on above: SPP Inflammatory Con ditions - Medication Refill (Ilaris) Start: 06-14-2024 End: 06-14-2024 Telephone encounter Silvia Tucker MD Work Phone: Rheumatology Comment on above: Patient Update Start: 06-08-2024 End: 06-08-2024 ambulatory Genaro Morales APRN.JOB DEVELOPER FOR [employer] Work Phone: Internal Medicine [place] Comment on above: Periodic fever syndr ome (HCC) (Primary Dx); Pain in joint, multiple sites; Other chest pain; Palpitations SPP Inflammatory Con ditions - Medication Refill (Ilaris) Start: 06-08-2024 End: 06-08-2024 Telemedicine consultation with patient Genaro Morales APRN.JOB DEVELOPER [employer] Work Phone: Internal Medicine [place] Start: 06-07-2024 End: 06-07-2024 Emergency department patient visit Faustina Carcamo Facility:[facility] Start: 06-06-2024 End: 06-07-2024 ambulatory Silvia Tucker MD Work Phone: Rheumatology Comment on above: Flare Start: 05-15-2024 End: 05-15-2024 Specialty Pharmacy Ramin Glasgow [facility] Comment on above: SPP Inflammatory Con ditions - Medication Refill (Ilaris) Start: 05-14-2024 End: 05-14-20[address] Nutrition therapy Rossy Cleveland RD Nutrition Therapy Comment on above: Assessment; Patient Education Start: 05-14-2024 End: 05-14-[address] Nutrition Therapy Start: 05-04-2024 End: 05-08-2024 Telephone encounter Faustina Carcamo MD Work Phone: Internal Medicine [place] Comment on above: Orders (Adjustable R ollator) Start: 04-30-2024 End: 04-30-2024 Telephone encounter Faustina Carcamo MD Work Phone: Family Medicine [place] Comment on above: Orders Start: 04-30-2024 End: 04-30-2024 ambulatory FAUSTINA CARCAMO Facility:[facility] Start: 04-30-2024 End: 04-30-2024 Office outpatient visit 10 minutes Faustina Carcamo MD Work Phone: Internal Medicine [place] Comment on above: Bilateral hip pain ( Primary Dx); Chronic pain of both knees; POTS (postural orthostatic tachycardia syndrome); Arthritis; Mobility poor Start: 04-24-2024 End: 04-24-2024 Refill Silvia Tucker MD Work Phone: [facility] Comment on above: Refill Request Start: 04-19-2024 End: 04-19-2024 ambulatory Ramin Pee [facility] Start: 04-19-2024 End: 04-19-2024 Patient encounter procedure Ramin Glasgow [facility] Comment on above: SPP Inflammatory Con ditions - Treatment Referral (Ilaris); Insurance Authorization ([place]?) Start: 04-17-2024 End: 04-18-2024 Refill Silvia Tucker MD Work Phone: Rheumatology Comment on above: Refill Request Start: 04-03-2024 End: 04-03-2024 Office outpatient visit 25 minutes Genaro Morales APRN.JOB DEVELOPER [employer] Work Phone: Internal Medicine [place] Comment on above: Vitamin D deficiency (Primary Dx); Class 3 severe obesity due to excess calories with body mass index (BMI) of 50.0 to 59.9 in adult, unspecified whether serious comorbidity present ([facility]) Start: 04-03-2024 End: 04-06-2024 Refill Silvia Tucker MD Work Phone: Rheumatology Comment on above: Appointment Start: 04-02-2024 End: 04-02-2024 ambulatory [facility] Facility:[facility] Start: 04-02-2024 End: 04-02-2024 Subsequent hospital visit by physician Xr [facility] [place] Work Phone: Radiology Comment on above: SO-JILLIAN (systemic ons et juvenile idiopathic arthritis) ([facility]) [M08.20] Start: 03-31-2024 End: 04-02-2024 ambulatory Silvia Tucker MD Work Phone: Rheumatology Comment on above: Question re: Pleuris y Start: 03-29-2024 Telephone encounter Ayaan mar APRN.CNM Work Phone: OB/Gynecology Comment on above: Orders (HPV) Start: 03-29-2024 End: 03-29-2024 ambulatory [facility] Facility:[facility] Start: 03-29-2024 End: 03-29-2024 Nursing evaluation of patient and report Nurse Substitute Teacher [facility] Work Phone: OB/Gynecology Comment on above: Need for prophylacti c vaccination/inoculation against viral disease (Primary Dx) Start: 03-20-2024 E-mail encounter fro m caregiver Selma Cheng Juan Manuel DO Work Phone: Cardiology Start: 03-20-2024 Patient encounter procedure Selma Cheng Taylorquitabayron DO Work Phone: Cardiology Comment on above: Appointment Start: 03-19-2024 ambulatory Silvia chong MD Work Phone: Rheumatology Comment on above: Medicaid Information for Ilaris Start: 03-15-2024 End: 03-15-2024 ambulatory FAUSTINA JARAAMPAMADA Facility:[facility] Start: 03-15-2024 End: 03-15-2024 Patient encounter procedure Karen Jenkins MD Work Phone: OB/Gynecology Comment on above: Cervical high risk H PV (human papillomavirus) test positive (Primary Dx); Nonavalent human papilloma virus (HPV) vaccine for HPV types 6, 11, 16, 18, 31, 33, 45, 52, and 58 administered Start: 03-12-2024 Telephone encounter Nani chapin APRN.CNP Work Phone: OB/Gynecology Comment on above: Results; Colposcopy Start: 03-12-2024 End: 03-12-2024 Patient encounter procedure Silvia Tucker MD Work Phone: Rheumatology Comment on above: SO-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); Immunosuppression (HCC); Vitamin D deficiency Start: 03-12-2024 End: 03-12-2024 ambulatory SILVIA TUCKER Facility:[facility] Start: 02-27-2024 End: 02-27-2024 Patient encounter procedure Ayaan Rowley APRN.CNM Work Phone: OB/Gynecology Comment on above: Encounter for gyneco logical examination (general) (routine) without abnormal findings (Primary Dx); Screening for cervical cancer; Encounter for screening for human papillomavirus (HPV); Cervical high risk human papillomavirus (HPV) DNA test positive; Pelvic pain in female Start: 02-27-2024 End: 02-27-2024 Patient encounter status Ayaan Rowley GENI.CNM Work Phone: [facility] Start: 02-27-2024 End: 02-27-2024 ambulatory [facility] Facility:[facility] Start: 02-27-2024 Encounter for gynecological examination (general) (routine) without abnormal findings AYAAN ROWLEY [facility] Start: 02-13-[address] MD Work Phone: Allergy Comment on above: lab results Start: 02-13-2024 E-mail encounter fro m caregiver Isela Street MD Work Phone: Allergy Start: 02-09-2024 End: 02-09-2024 ambulatory [facility] Facility:[facility] Start: 01-17-2024 End: 01-17-2024 Patient encounter procedure Karen Jenkins MD Work Phone: OB/Gynecology Comment on above: Abnormal uterine ble eding (AUB) (Primary Dx) Start: 01-02-2024 End: 01-02-2024 Office outpatient visit 25 minutes Faustina Carcamo MD Work Phone: Internal Medicine [place] Comment on above: Bilateral lower extr emity edema (Primary Dx); Intermittent diarrhea; Class 3 severe obesity due to excess calories with body mass index (BMI) of 50.0 to 59.9 in adult, unspecified whether serious comorbidity present (HCC); Encounter for long-term current use of medication Start: 12-14-2023 End: 12-14-2023 Patient encounter procedure Anton Ibarracale CLAUDIOGRAIN DRIER Work Phone: [facility] Comment on above: Diarrhea, unspecifie [...] End: 10-27-2023 Patient encounter procedure Qian Pena APRN.GRAIN DRIER Work Phone: Cardiology Comment on above: POTS (postural ortho static tachycardia syndrome) (Primary Dx) Start: 10-24-2023 End: 10-24-2023 ambulatory Faustina Carcamo MD Work Phone: Internal Medicine [place] Comment on above: Latex allergy (Prima ry Dx); Vitamin D deficiency; Elevated TSH; Inappropriate sinus node tachycardia (HCC) Start: 10-24-2023 End: 10-24-2023 Telemedicine consultation with patient Faustina Carcamo MD Work Phone: [facility] Start: 10-14-2023 End: 10-14-2023 Subsequent hospital visit by physician Paco [facility] [place] Work Phone: Radiology Comment on above: Chronic left shoulde r pain [M25.512, G89.29] Start: 10-14-2023 End: 10-14-2023 Office outpatient visit 15 minutes Genaro Morales APRN.JOB DEVELOPER FOR [employer] Work Phone: Internal Medicine [place] Comment on above: Screen for STD (sexu [...] with patient Rob Toledo PA-C Work Phone: [facility] Start: 07-28-2023 Refill Patjd chong MD Work Phone: Rheumatology/Pulmona ry Start: 07-25-2023 End: 07-25-2023 ambulatory Ultrasound Stro Work Phone: OB/Gynecology Start: 07-25-2023 End: 07-25-2023 Patient encounter procedure Ultrasound Substitute Teacher [facility] Work Phone: [facility] Start: 07-22-2023 End: 07-22-2023 Office outpatient visit 15 minutes Joe Contreras MD Work Phone: OB/Gynecology Comment on above: Pelvic pain in femal e (Primary Dx) Start: 07-06-2023 ambulatory Patompong Nghia chong MD Work Phone: Rheumatology/Pulmona ry Comment on above: Regarding lab tests Start: 07-02-2023 ambulatory Patompong Nghia chong MD Work Phone: Rheumatology/Pulmona ry Comment on above: Labs Question Start: 06-23-2023 Refill Genaro MCDONOUGH.JOB DEVELOPER FOR [employer] Work Phone: Internal Medicine [place] Comment on above: Refill Request Start: 06-21-2023 Telephone encounter Yair membreno MD Work Phone: Neurology Comment on above: Patient Question Start: 06-06-2023 End: 06-06-2023 Orders Only Patsy Mobley PA-C Work Phone: [facility] Comment on above: Upper back pain (Eleanor yony Dx) Upper back pain (Eleanor yony Dx); Other acute gastritis without hemorrhage; Fever, unspecified fever cause Upper back pain [M54 .9] Start: 05-31-2023 End: 06-01-2023 ambulatory PATOMPONG UNGPRASERT Facility:[facility] Start: 05-25-2023 End: 05-25-2023 ambulatory Gonzalez Reyes PA-C Work Phone: Telemedicine Comment on above: Acute cystitis witho ut hematuria (Primary Dx) Start: 05-20-2023 End: 05-20-2023 Office outpatient visit 25 minutes Genaro Morales MEDICAL STAFF SERVICES MANAGERRaphaelJOB DEVELOPER FOR DEAF ADULTS Work Phone: Internal Medicine [place] Comment on above: Other migraine witho ut status migrainosus, intractable (Primary Dx); Abnormal EKG; POTS (postural orthostatic tachycardia syndrome); Elevated TSH Start: 05-19-2023 Telephone encounter Faustina regan MD Work Phone: Internal Medicine [place] Comment on above: Patient Question Start: 05-19-2023 End: 05-19-2023 Emergency department patient visit JONATHAN PICKETT Facility:[facility] Start: 04-25-2023 End: 04-25-2023 ambulatory Yair Lyons MD Work Phone: Neurology Comment on above: Intractable chronic migraine without aura and without status migrainosus (Primary Dx) Start: 04-25-2023 End: 04-25-2023 Telemedicine consultation with patient Yair Lyons MD Work Phone: [facility] Start: 04-21-2023 Refill Yair de los santos MD Work Phone: Neurology Comment on above: Refill Request Start: 04-18-2023 End: 04-18-2023 ambulatory Aki Jiménez MEDICAL STAFF SERVICES MANAGER.GRAIN DRIER Work Phone: Telemedicine Comment on above: Treatment not availa ble (Primary Dx) Laryngitis (Primary Dx); Cough, unspecified type Start: 04-18-2023 End: 04-18-2023 Telemedicine consultation with patient Aki Jiménez MEDICAL STAFF SERVICES MANAGER.GRAIN DRIER Work Phone: [facility] Start: 04-12-2023 ambulatory [facility] Comment on above: Actemra insurance ap proval - action required Refill Request Start: 04-12-2023 E-mail encounter fro m caregiver [facility] Start: 04-06-2023 Refill Patjd chong MD Work Phone: Rheumatology Comment on above: SPP Inflammatory Con ditions - Treatment Referral (Actemra); Insurance Authorization (PA submitted) Start: 03-29-2023 ambulatory Patjd chong MD Work Phone: Rheumatology/Pulmona ry Comment on above: Labs and update Start: 03-29-2023 E-mail encounter fro m caregiver Silvia Tucker MD Work Phone: [facility] Start: 03-25-2023 End: 03-26-2023 ambulatory SILVIA TUCKER Facility:[facility] Start: 03-10-2023 Telephone encounter Silvia Tucker MD Work Phone: Rheumatology Comment on above: Patient Question (Ap peal ); Medication Preauthorization Start: 03-02-2023 ambulatory Silvia chong MD Work Phone: Rheumatology Comment on above: Flare Start: 02-25-2023 End: 02-25-2023 Patient encounter procedure Ayaan Harryedison ARECHIGA.CNM Work Phone: OB/Gynecology Comment on above: Encounter for gyneco logical examination (general) (routine) without abnormal findings (Primary Dx); Screening for STD (sexually transmitted disease) Start: 02-25-2023 End: 02-25-2023 Patient encounter status Ayaan Harryedison MEDICAL STAFF SERVICES MANAGER.CNM Work Phone: [facility] Start: 02-16-2023 Refill Silvia chong MD Work Phone: Rheumatology Comment on above: Refill Request Medication Authoriza tion Start: 02-07-2023 End: 02-07-2023 Patient encounter procedure Kedar BOATENG Work Phone: [facility] Comment on above: Sore throat (Primary Dx); Acute otitis media, left Start: 01-12-2023 Telephone encounter Silvia Tucker MD Work Phone: Rheumatology Comment on above: Insurance Authorizat ion Start: 12-17-2022 End: 12-17-2022 Office outpatient visit 40 minutes Faustina Carcamo MD Work Phone: Internal Medicine [place] Comment on above: PTSD (post-traumatic stress disorder) (Primary Dx); Migraine with aura and without status migrainosus, not intractable; POTS (postural orthostatic tachycardia syndrome); Periodic fever syndrome (HCC); Pain in joint, multiple sites; Panic disorder with agoraphobia; Irritable bowel syndrome with both constipation and diarrhea Start: 12-16-2022 Telephone encounter Faustina regan MD Work Phone: Internal Medicine [place] Comment on above: new form coming from Martinanmishaan Start: 12-15-2022 Telephone encounter Faustina regan MD Work Phone: Internal Medicine [place] Comment on above: requesting copy of f orm faxed earlier Start: 12-09-2022 ambulatory Faustina de los santos MD Work Phone: [facility] Start: 12-09-2022 Follow-up encounter Faustina regan MD Work Phone: Internal Medicine [place] Comment on above: ADA Follow Up Start: [...] Faustina Carcamo MD Work Phone: Internal Medicine [place] Comment on above: Costochondritis (Eleanor yony Dx) Start: 11-10-2022 End: 11-10-2022 Telemedicine consultation with patient Faustina Carcamo MD Work Phone: [facility] Start: 10-18-2022 End: 10-18-2022 Office outpatient visit 15 minutes Faustina Carcamo MD Work Phone: Internal Medicine [place] Comment on above: High serum high dens ity lipoprotein (HDL) (Primary Dx); POTS (postural orthostatic tachycardia syndrome); Inappropriate sinus node tachycardia; Periodic fever syndrome (HCC) Start: 02-06-2023 ambulatory MIRIAM Stevens ty:[facility] Start: 09-20-2022 End: 09-20-2022 Office outpatient new 45 minutes Miriam Ortiz MD Work Phone: [facility] [place] Comment on above: Dog bite, initial en counter (Primary Dx) Start: 09-16-2022 Telephone encounter Silvia Tucker MD Work Phone: Rheumatology Comment on above: Medication Authoriza tion (Ilaris ) Start: 09-14-2022 ambulatory Faustina de los santos MD Work Phone: Internal Medicine [place] Comment on above: ADA Paperwork Start: 09-01-2022 End: 09-01-2022 ambulatory Yair Lyons MD Work Phone: Neurology Comment on above: Chronic migraine wit hout aura, with intractable migraine, so stated, with status migrainosus (Primary Dx) Start: 09-01-2022 End: 09-01-2022 Telemedicine consultation with patient Yair Lyons MD Work Phone: [facility] Start: 08-12-2022 Telephone encounter Isis sampson [facility] Work Phone: Adult Psychology Comment on above: Behavioral Health So cial Work Refill Request Start: 08-11-2022 End: 08-11-2022 Office outpatient visit 40 minutes Faustina Carcamo MD Work Phone: Internal Medicine [place] Comment on above: Obsessive-compulsive disorder, unspecified type (Primary Dx); PTSD (post-traumatic stress disorder); Recurrent major depressive disorder, in partial remission (HCC); Anxiety; POTS (postural orthostatic tachycardia syndrome); Inappropriate sinus node tachycardia; Moderate persistent reactive airway disease with acute exacerbation Start: 08-05-2022 Telephone encounter Silvia Tucker MD Work Phone: Rheumatology Comment on above: Medication Authoriza tion Start: 08-02-2022 Refill Silvia chong MD Work Phone: Rheumatology Comment on above: Refill Request Start: 07-28-2022 End: 12-15-2022 ambulatory MASS IMMUNIZATION PROVIDER 1 [facility] Start: 07-15-2022 ambulatory Ayaan de los santos MEDICAL STAFF SERVICES MANAGER.CNM Work Phone: OB/Gynecology Comment on above: Fluconazole- Differe nt Pharmacy Start: 07-14-2022 End: 07-14-2022 Patient encounter procedure Ayaan Rowley MEDICAL STAFF SERVICES MANAGER.CNM Work Phone: OB/Gynecology Comment on above: Pelvic pain in femal e (Primary Dx); Screen for STD (sexually transmitted disease); Surveillance of previously prescribed intrauterine contraceptive device Start: 06-28-2022 ambulatory MARINA Stevens ty:[facility] Start: 06-28-2022 End: 06-28-2022 Subsequent hospital visit by physician Marina Goodrich APRN-GRAIN DRIER Work Phone: [facility] [place] Comment on above: Arrived Start: 06-28-2022 ambulatory MARINA Stevens ty:[facility] Start: 06-28-2022 End: 06-28-2022 Office outpatient visit 15 minutes Marina Goodrich APRN-GRAIN DRIER Work Phone: [facility] Comment on above: RLQ abdominal pain ( Primary Dx) Start: 06-14-2022 Refill Patjd chong MD Work Phone: Rheumatology Start: 06-03-2022 End: 06-03-2022 ambulatory [place] Charles APRN.GRAIN DRIER Work Phone: Internal Medicine [place] Comment on above: Acute cough (Primary Dx); Shortness of breath; Wheezing Start: 06-03-2022 End: 06-03-2022 Telemedicine consultation with patient [place] Araceli ARECHIGA.GRAIN DRIER Work Phone: [facility] Start: 05-26-2022 ambulatory SUHAIL Stevens ty:[facility] Start: 05-05-2022 ambulatory CASEY Li y:[facility] Start: 05-05-2022 End: 05-05-2022 Office outpatient visit 15 minutes Casey Kern MD Work Phone: [facility] [place] Comment on above: Concussion without l oss of consciousness, subsequent encounter (Primary Dx) Start: 05-02-2022 End: 05-03-2022 ambulatory OVI HERRERA [facility] Start: 05-02-2022 End: 05-02-2022 Office outpatient new 45 minutes Ovi Herrera DO Work Phone: [facility] Comment on above: Closed head injury, initial encounter (Primary Dx); Contusion of scalp, initial encounter; Abrasion; Fall, initial encounter; Injury of right ankle, initial encounter; Sprain of right ankle, unspecified ligament, initial encounter Start: 04-21-2022 ambulatory DHANU R MINGO Facility:[facility] Start: 04-16-2022 ambulatory SELF SELF Facility:[facility] Start: 04-16-2022 End: 04-16-2022 Office outpatient new 45 minutes Dhanu R Mingo MBBS Work Phone: [facility] [place] Comment on above: Migraine without sta tus migrainosus, not intractable, unspecified migraine type (Primary Dx); IUD check up; Morbid obesity; Periodic fever syndrome Start: 04-12-2022 Refill Yair de los santos MD Work Phone: Neurology Comment on above: Refill Request Start: 04-07-2022 Telephone encounter Mikel Solorio MD Work Phone: Dermatology Comment on above: Appointment Start: 04-06-2022 Specialty Pharmacy Ramin Glasgow [facility] Comment on above: SPP Inflammatory [...] End: 02-27-2022 Patient encounter procedure Mert Nikki DETECTIVE PRECINCT Work Phone: Psychology Comment on above: Moderate anxiety (Pr imary Dx); Moderate episode of recurrent major depressive disorder (HCC) Start: 02-25-2022 Refill Patjd chong MD Work Phone: [facility] Comment on above: Refill Request Start: 02-23-2022 Chart abstracting Mert Nikki DETECTIVE PRECINCT Work Phone: Psychology Comment on above: Consult ([facility] Pt Out reach F/U) Start: 02-21-2022 Chart abstracting Mert Nikki DETECTIVE PRECINCT Work Phone: Psychology Comment on above: Consult Start: 02-19-2022 ambulatory Ramin Glasgow [facility] Start: 02-19-2022 Patient encounter procedure Ramin Glasgow [facility] Comment on above: SPP Inflammatory Con ditions - Treatment Referral (Ilaris) Start: 02-18-2022 Refill Patjd chong MD Work Phone: Rheumatology Comment on above: Refill Request Start: 01-20-2022 Telephone encounter Rosaura holbrook MEDICAL STAFF SERVICES MANAGER.CNM Work Phone: OB/Gynecology Comment on above: Results Start: 01-20-2022 End: 01-20-2022 Subsequent hospital visit by physician [place] [facility] Work Phone: Radiology Comment on above: Intrauterine contrac eptive device threads lost, initial encounter [T83.32XA] Start: 01-16-2022 Refill Genaro PERRYNRaphaelJOB DEVELOPER FOR DEAF ADULTS Work Phone: Internal Medicine [place] Comment on above: Refill Request Start: 01-13-2022 End: 01-13-2022 Patient encounter procedure Ayaan Rowley MEDICAL STAFF SERVICES MANAGER.CNM Work Phone: OB/Gynecology Comment on above: Surveillance of prev iously prescribed intrauterine contraceptive device (Primary Dx); Intrauterine contraceptive device threads lost, initial encounter Start: 01-07-2022 Refill Patjd chogn MD Work Phone: Rheumatology Comment on above: Refill Request Start: 01-05-2022 End: 01-05-2022 Patient encounter procedure Genaro Morales MEDICAL STAFF SERVICES MANAGER.JOB DEVELOPER FOR [employer] Work Phone: Internal Medicine [place] Comment on above: COVID-19 (Primary Dx ); POTS (postural orthostatic tachycardia syndrome); Chest wall discomfort Start: 12-25-2021 ambulatory Faustina de los santos MD Work Phone: Internal Medicine [place] Comment on above: Covid Start: 12-04-2021 End: 12-04-2021 Patient encounter procedure Ayaan Rowley MEDICAL STAFF SERVICES MANAGER.CNM Work Phone: OB/Gynecology Comment on above: Encounter for IUD in sertion (Primary Dx) Start: 11-28-2021 Refill Faustina de los santos MD Work Phone: Internal Medicine [place] Comment on above: Refill Request Start: 11-24-2021 [...] Phone: [facility] Start: 11-12-2021 Refill Ayaan Carrero s MEDICAL STAFF SERVICES MANAGER.CNM Work Phone: OB/Gynecology Comment on above: Refill Request Start: 10-14-2021 End: 10-14-2021 Subsequent hospital visit by physician Mri Radio [facility] (I-Stat/1.5t) Work Phone: Radiology Comment on above: No Show Start: 10-12-2021 ambulatory Elias Flores DPM Work Phone: Podiatry Comment on above: Prior Auth Paperwork Start: 09-22-2021 End: 09-22-2021 Patient encounter procedure Faustina Carcamo MD Work Phone: Internal Medicine [place] Comment on above: Left ankle strain, s equela (Primary Dx); Chronic pain of left ankle; History of influenza Start: 09-16-2021 End: 09-16-2021 Subsequent hospital visit by physician Xr [facility] [place] Work Phone: Radiology Comment on above: Left ankle pain, uns pecified chronicity [M25.572] Start: 08-05-2021 End: 08-05-2021 Subsequent hospital visit by physician Xr [facility] [place] Work Phone: Radiology Comment on above: Acute left ankle skip n [M25.572] Start: 01-07-2021 End: 01-07-2021 Subsequent hospital visit by physician Xr [facility] [place] Work Phone: Radiology Comment on above: Left wrist pain [M25 .532] Start: 07-17-2020 End: 07-17-2020 Subsequent hospital visit by physician Ct [facility] (I-Stat) Work Phone: Radiology Comment on above: Chronic sinusitis, u nspecified location [J32.9] Start: 06-05-2020 End: 06-05-2020 Subsequent hospital visit by physician Xr [facility] [place] Work Phone: Radiology Comment on above: Cough [R05] Procedures Date Procedure Procedure Detail Performing Clinician Start: 12-21-2024 STREP A MOLECULAR (POC) Steven Harris APRN.GRAIN DRIER Work Phone: Start: 11-22-2024 STREP A MOLECULAR (POC) Kedar Varela PA Work Phone: Start: 11-19-2024 STREP A MOLECULAR (POC) Rosaura Santacruz APRN.GRAIN DRIER Work Phone: Start: 10-24-2024 Radex wrist complete minimum 3 views Steven Harris APRN.GRAIN DRIER Work Phone: Start: 09-25-2024 Radiologic exam ches t 2 views Rosaura Santacruz APRN.GRAIN DRIER Work Phone: Start: 04-02-2024 Radiologic exam ches t 2 views Silvia Tucker MD Work Phone: Start: 03-15-2024 UA DIP,URINE HCG (POC) Karen Jenkins MD Work Phone: Start: 10-14-2023 Radex shoulder compl ete minimum 2 views Genaro Morales MEDICAL STAFF SERVICES MANAGER.JOB DEVELOPER FOR [employer] Work Phone: Start: 07-25-2023 Us pelvic nonobstetr ic real-time image complete Joe Contreras MD Work Phone: Start: 06-06-2023 Radiologic exam ches t 2 views Patsy Mobley PA-C Work Phone: Start: 02-25-2023 BACTERIAL VAGINOSIS NAAT Ayaan Plotts MEDICAL STAFF SERVICES MANAGER.CNM Work Phone: Start: 02-25-2023 Iadna trichomonas va ginalis amplified probe tech Ayaan Plotts MEDICAL STAFF SERVICES MANAGER.CNM Work Phone: Start: 07-14-2022 BACTERIAL VAGINOSIS AMPLIFICATION Ayaan Plotts MEDICAL STAFF SERVICES MANAGER.CNM Work Phone: Start: 07-14-2022 Iadna chlamydia trac homatis amplified probe tq Ayaan Plotts MEDICAL STAFF SERVICES MANAGER.CNM Work Phone: Start: 06-28-2022 Ct abdomen & pelvis w/contrast material Marina Goodrich MEDICAL STAFF SERVICES MANAGER-GRAIN DRIER Work Phone: Start: 06-28-2022 End: 06-28-2022 Blood count complete auto&auto difrntl wbc Marina Goodrich MEDICAL STAFF SERVICES MANAGER-GRAIN DRIER Work Phone: Start: 06-28-2022 End: 06-28-2022 Urnls dip stick/tablet rgnt auto w/o microscopy Marina Goodrich MEDICAL STAFF SERVICES MANAGER-GRAIN DRIER Work Phone: Start: 01-20-2022 Us transvaginal Bianca Rowley MEDICAL STAFF SERVICES MANAGER.CNM Work Phone: Start: 12-04-2021 Urine test visual color cmprsn letitia Rowley MEDICAL STAFF SERVICES MANAGER.CNM Work Phone: Start: 09-16-2021 Radex ankle complete minimum 3 views Irwin Campbell MD Work Phone: Start: 08-05-2021 Radex ankle complete minimum 3 views Rosauraelyse Santacruz MEDICAL STAFF SERVICES MANAGER.GRAIN DRIER Work Phone: Start: 01-07-2021 Radex shoulder compl ete minimum 2 views Shea Coates PA-C Work Phone: Start: 10-20-2020 Microscopic observat ion [Identifier] in Cervix by Cyto stain Marina Goodrich MEDICAL STAFF SERVICES MANAGER-GRAIN DRIER Work Phone: Start: 07-17-2020 Ct maxillofacial w/o contrast material Jerry Keating MD Work Phone: Start: 06-05-2020 Radiologic exam ches t 2 views Gonzalez Reyes PA-C Work Phone: Plan of Treatment Date Care Activity Detail Author Start: 10-31-2034 Urine microalbumin profile DTaP,Tdap,Td Vaccine (9 - Td or Tdap) [facility] Start: 03-08-2029 Tetanus vaccination [facility] Start: 03-08-2029 Urine microalbumin profile [facility] Start: 02-26-2028 HPV TESTING HPV TESTING [facility] Start: 02-26-2028 PAP TESTING PAP TESTING [facility] Start: 02-26-2028 Screening for malignant neoplasm of cervix [facility] Start: 02-21-2026 End: 02-21-2026 Patient encounter procedure 02/21/2026 2:30 PM EDT Office Visit OB/Gynecology [address] [place], [place] [id number] Michelle Rojas MEDICAL STAFF SERVICES MANAGER.GRAIN DRIER [address] [place] [id number] Annual OB/Gynecology Comment on above: Annual Start: 10-20-2025 PAP TESTING PAP TESTING [facility] Start: 07-15-2025 End: 07-15-2025 Patient encounter procedure 07/15/2025 10:40 AM EST Office Visit Rheumatology [address] [place] [address] Slivia Tucker MD [address] [place] [address] follow up Rheumatology Comment on above: follow up Start: 06-19-2025 End: 06-19-2025 Patient encounter procedure 06/19/2025 3:20 PM EST Office Visit Internal Medicine [place] [address] [place] [address] Faustina Carcamo MD [address] [place] [address] 3 month follow up Internal Medicine [place] Comment on above: 3 month follow up Start: 04-15-2025 Influenza vaccination Influenza Vaccine (#1) [facility] Start: 03-18-2025 End: 03-18-2025 Patient encounter procedure 03/18/2025 4:40 PM EDT Office Visit Internal Medicine [place] [address] [place] [address] Faustina Carcamo MD [address] [place] [address] 6 mon follow up Internal Medicine [place] Comment on above: 6 mon follow up Start: 03-01-2025 End: 03-01-2025 Specialty Pharmacy 03/01/2025 8:00 AM EDT Specialty Pharmacy [facility] [address] [place], [place] [address] [place] [address] Pharmacist, [facility] [address] [place] [address] [place] [address] REFILL Ilaris - PAx 03/27/25 - 03/12 [facility] Comment on above: REFILL Ilaris - PAx 03/27/25 - 03/12 Start: 02-27-2025 End: 02-27-2025 Patient encounter procedure Allergy Comment on above: latex allergy 6 mon follow up Start: 07-15-2025 Screening for malignant neoplasm of cervix Cervical Cancer Screening [facility] Start: 02-26-2025 End: 02-26-2025 Patient encounter procedure OB/Gynecology Comment on above: annual guide changer exam 6 mon follow up Start: 02-13-2025 End: 02-13-2025 Patient encounter procedure 02/13/2025 2:00 PM EDT Office Visit Internal Medicine [place] [address] [place] [address] Faustina Carcamo MD [address] [place] [address] 6 mon follow up [facility] Medicine [place] Comment on above: 6 mon follow up Start: 02-04-2025 End: 02-04-2025 Specialty Pharmacy 02/04/2025 8:00 AM EDT Specialty Pharmacy [facility] [address] [place] [address] Pharmacist, [facility] [address] [place] [address] [place] [address] REFILL Ilaris - PAx 03/27/25 - ND 02/12-lvm 01/31 [facility] Comment on above: REFILL Ilaris - PAx 03/27/25 - ND 02/12-l vm 01/31 Start: 01-31-2025 End: 01-31-2025 Specialty Pharmacy 01/31/2025 8:15 AM EDT Specialty Pharmacy [facility] [address] [place] [address] Pharmacist, [facility] [address] [place] [address] [place] [address] REFILL Ilaris - PAx 03/27/25 - ND 02/12 [facility] Comment on above: REFILL Ilaris - PAx 03/27/25 - ND 02/12 Start: 01-22-2025 End: 01-22-2025 Patient encounter procedure 01/22/2025 4:00 PM EDT Office Visit Rheumatology [address] [place] [address] Silvia Tucker MD [address], [place] [address] follow up Rheumatology Comment on above: follow up Start: 01-03-2025 End: 01-03-2025 Specialty Pharmacy 01/03/2025 8:00 AM EDT Specialty Pharmacy [facility] [address] [place] [address] [place] [address] Pharmacist, [facility] [address] [place] [address] [place] [address] REFILL Ilaris - PAx 03/27/25 - 01/15 [facility] Comment on above: REFILL Ilaris - PAx 03/27/25 - 01/15 Start: 01-01-2025 End: 01-01-2025 Patient encounter procedure 01/01/2025 9:05 PM EDT Office Visit Neurology [address] [place] [address] MAXWELL (obstructive sleep apnea) [G47.33]; Class 3 [...] 7:15 AM EDT Office Visit OB/Gynecology [address] [place], [place] [id number] Tiffanie Barrera APRN.GRAIN DRIER [address] [place], [place] [phone] annual-patient states her insurance has changed and would like her annual completed sooner OB/Gynecology Comment on above: annual-patient states her insurance has changed and would like her annual completed sooner Start: 12-21-2024 End: 12-21-2024 Patient encounter procedure 12/21/2024 2:45 PM EDT Office Visit OB/Gynecology [address] [place] [address] Tiffanie Barrera APRN.GRAIN DRIER [address] [place] [address] annual-patient states her insurance has changed and would like her annual completed sooner OB/Gynecology Comment on above: annual-patient states her insurance has changed and would like her annual completed sooner Start: 12-19-2024 End: 12-19-2024 Patient encounter procedure 12/19/2024 3:40 PM EDT Office Visit OB/Gynecology [address] [place] [address] Qian Hillman MD [address] [place] [address] endosee/ IUD removal OB/Gynecology Comment on above: endosee/ IUD removal Start: 12-18-2024 End: 03-19-2025 C reactive protein [Mass/volume] in Serum or Plasma [facility] Comment on above: Expected: 12/18/2024, Expires: Start: 12-18-2024 End: 03-19-2025 CBC W Auto Differential panel - Blood [facility] Work Phone: Comment on above: Expected: 12/18/2024, Expires: Start: 12-18-2024 End: 03-19-2025 Erythrocyte sedimentation rate [facility] Comment on above: Expected: 12/18/2024, Expires: Start: 12-18-2024 End: 12-18-2024 Patient encounter procedure 12/18/2024 8:20 AM EDT Office Visit Rheumatology [address] [place] [address] Silvia Tucker MD [address] [place] [address] f/u earlier apt Rheumatology Comment on above: f/u earlier apt Start: 12-13-2024 End: 12-13-2024 Patient encounter procedure 12/13/2024 9:00 AM EDT Office Visit OB/Gynecology [address] [place] [address] Fredy Diaz MD [address] [place] [address] endosee/ IUD removal OB/Gynecology Comment on above: endosee/ IUD removal Start: 12-12-2024 End: 12-12-2024 Patient encounter procedure 12/12/2024 2:45 PM EDT Office Visit OB/Gynecology [address] [place] [address] Tiffanie Barrera, MEDICAL STAFF SERVICES MANAGER.GRAIN DRIER [address] [place] [address] annual-patient states her insurance has changed and would like her annual completed sooner OB/Gynecology Comment on above: annual-patient states her insurance has changed and would like her annual completed sooner Start: 12-06-2024 End: 12-06-2024 Specialty Pharmacy 12/06/2024 8:00 AM EDT Specialty Pharmacy [facility] [address] [place] [address] Pharmacist, [facility] [address] [place] [address] [place] [address] REFILL Ilaris - PAx 03/27/25 - 12/18 [facility] Comment on above: REFILL Ilaris - PAx 03/27/25 - ND 12/18 Start: 11-22-2024 End: 11-22-2024 Follow-up encounter 11/22/2024 4:40 PM EDT [facility] Rheumatology/Pulmonary [address] [place] [address] Silvia Tucker MD [address] [place] [address] follow up Rheumatology/Pulmona ry Comment on above: follow up Start: 11-22-2024 End: 11-22-2024 Patient encounter procedure 11/22/2024 4:40 PM EDT Office Visit Rheumatology/Pulmonary [address] [place] [address] Silvia Tucker MD [address] [place] [address] follow up Rheumatology/Pulmona ry Comment on above: follow up Start: 11-22-2024 End: 02-21-2025 C reactive protein [Mass/volume] in Serum or Plasma C-REACTIVE PROTEIN Lab Routine SO-JILLIAN (systemic onset juvenile idiopathic arthritis) (HCC) Periodic fever syndrome (HCC) Expected: 11/22/2024, Expires: 02/21/2025 [facility] Comment on above: Expected: 11/22/2024, Expires: Start: 11-22-2024 End: 02-21-2025 CBC W Auto Differential panel - Blood COMPLETE BLOOD COUNT AND DIFFERENTIAL Lab Routine SO-JILLIAN (systemic onset juvenile idiopathic arthritis) (HCC) Periodic fever syndrome (HCC) Expected: 11/22/2024, Expires: 02/21/2025 [facility] Comment on above: Expected: 11/22/2024, Expires: Start: 11-22-2024 End: 02-21-2025 Creatinine and Glomerular filtration rate.predicted panel - Serum, Plasma or Blood CREATININE BLD Lab Routine SO-JILLIAN (systemic onset juvenile idiopathic arthritis) (HCC) Periodic fever syndrome (HCC) Expected: 11/22/2024, Expires: 02/21/2025 [facility] Work Phone: Comment on above: Expected: 11/22/2024, Expires: Start: 11-22-2024 End: 02-21-2025 Erythrocyte sedimentation rate SEDIMENTATION RATE, WESTERGREN Lab Routine SO-JILLIAN (systemic onset juvenile idiopathic arthritis) (HCC) Periodic fever syndrome (HCC) Expected: 11/22/2024, Expires: 02/21/2025 [facility] Comment on above: Expected: 11/22/2024, Expires: Start: 11-22-2024 End: 02-21-2025 Hepatic function 2000 panel - Serum or Plasma HEPATIC FUNCTION PNL Lab Routine SO-JILLIAN (systemic onset juvenile idiopathic arthritis) (HCC) Periodic fever syndrome (HCC) Expected: 11/22/2024, Expires: 02/21/2025 [facility] Comment on above: Expected: 11/22/2024, Expires: Start: 11-22-2024 End: 02-21-2025 Heterophile Ab [Presence] in Serum by Latex agglutination MONOTEST, INFECTIOUS MONO Lab Routine Sore throat Exudative tonsillitis Expected: 11/22/2024, Expires: 02/21/2025 [facility] Work Phone: Comment on above: Expected: 11/22/2024, Expires: Start: 11-22-2024 End: 02-21-2025 Urea nitrogen [Mass/volume] in Serum or Plasma UREA NITROGEN Lab Routine SO-JILLIAN (systemic onset juvenile idiopathic arthritis) (HCC) Periodic fever syndrome (HCC) Expected: 11/22/2024, Expires: 02/21/2025 [facility] Comment on above: Expected: 11/22/2024, Expires: Start: 11-21-2024 End: 11-21-2024 Patient encounter procedure 11/21/2024 9:15 PM EDT Office Visit Neurology [address] [place] [address] MAXWELL (obstructive sleep apnea) [G47.33]; Class [...] EDT Office Visit Internal Medicine [place] [address] [place] [address] Petra Beckman APRN.GRAIN DRIER [address] [place] [address] follow up- fatigue Internal Medicine [place] Comment on above: follow up- fatigue Start: 11-15-2024 End: 11-15-2024 Patient encounter procedure 11/15/2024 3:30 PM EDT Office Visit Allergy [id number] MD [address] [place] [address] latex allergy Allergy Comment on above: latex allergy Start: 11-08-2024 End: 11-08-2024 Specialty Pharmacy 11/08/2024 8:00 AM EDT Specialty Pharmacy [facility] [address] [place] [address] [phone] Pharmacist, [facility] [address] [place] [address] [place] [address] REFILL Ilaris - PAx 03/27/25 - 11/20 [facility] Comment on above: REFILL Ilaris - PAx 03/27/25 - ND 11/20 Start: 11-01-2024 End: 11-01-2024 Patient encounter procedure 11/01/2024 9:15 PM EDT Office Visit Neurology [address] [place] [address] MAXWELL (obstructive sleep apnea) [G47.33]; Class 3 [...] AM EST Specialty Pharmacy [facility] [address] [place] [address] Pharmacist, [facility] [address] [place] [address] REFILL Ilaris - PAx 03/27/2510/23-lvm 10/16 [facility] Comment on above: REFILL Ilaris - PAx 03/27/2510/23-l vm 10/16 Start: 10-16-2024 End: 10-16-2024 Patient encounter procedure 10/16/2024 7:00 PM EST Office Visit Internal Medicine [place] [address] [place] [address] Faustina Carcamo MD [address] [place] [address] Severe fatigue and weakness Internal Medicine [place] Comment on above: Severe fatigue and weakness Start: 10-11-2024 End: 10-11-2024 Specialty Pharmacy 10/11/2024 8:00 AM EST Specialty Pharmacy [facility] [address] [place] [address] Pharmacist, [facility] [address] [place] [address] REFILL Ilaris - PAx 03/27/25/11 [facility] Comment on above: REFILL Ilaris - PAx 03/27/25 - 10/23 Start: 09-19-2024 End: 09-19-2024 Follow-up encounter 09/19/2024 9:00 AM EST [facility] [address] [place] [address] Rob Toledo PA-C [address] [place] [address] Migraines and facial pain follow up Neurology Comment on above: Migraines and facial pain follow up Start: 09-14-2024 End: 09-14-2024 Follow-up encounter 09/14/2024 1:45 PM EST [facility] Nutrition Therapy [address] [place] [address] [phone] follow-up Nutrition Therapy Comment on above: follow-up Start: 09-13-2024 End: 09-13-2024 Specialty Pharmacy 09/13/2024 8:00 AM EST Specialty Pharmacy [facility] [address] [place] [address] Pharmacist, [facility] [address] [place] [address] REFILL Ilaris - PAx 03/27/25 - 09/25 [facility] Comment on above: REFILL Ilaris - PAx 03/27/25 - 09/25 Start: 09-08-2024 End: 09-08-2024 ambulatory 09/08/2024 8:45 AM EST Results Only [place] [facility] Draw Station [address] [place] [address] [place] [facility] Draw Station Start: 09-07-2024 End: 09-07-2024 Follow-up encounter 09/07/2024 2:30 PM EST [facility] [address] [address] [address], [address] [place] [address] Follow-up Nutrition Therapy Comment on above: Follow-up Start: 08-21-2024 End: 08-21-2024 Patient encounter procedure 08/21/2024 7:45 AM EST OT/PT/Speech Visit [facility] [address] [place] [address] Hari Eastman, PT, DPT back pain [facility] Comment on above: back pain Start: 08-20-2024 End: 08-20-2024 Follow-up encounter 08/20/2024 5:20 PM EST [facility] [place] [address] [place] [address] Faustina Carcamo MD [address] [place] [address] Follow up Internal Medicine [place] Comment on above: Follow up Start: 08-17-2024 End: 08-17-2024 Follow-up encounter 08/17/2024 1:45 PM EST [facility] Nutrition Therapy [address] [address] [address], RD [address] [place] [address] Follow-up Nutrition Therapy Comment on above: Follow-up Start: 08-17-2024 End: 08-17-2024 Specialty Pharmacy 08/17/2024 8:15 AM EST Specialty Pharmacy [facility] [address] [place] [address] Drive [address] [place] [address] Pharmacist, [facility] [address] [place] [address] REFILL Ilaris - PAx 03/27/25 - ND 08/28 [facility] Comment on above: REFILL Ilaris - PAx 03/27/25 - ND 08/28 Start: 08-02-2024 End: 08-02-2024 Specialty Pharmacy 08/02/2024 8:00 AM EST Specialty Pharmacy [facility] [address] [place] [address] Pharmacist, [facility] [address] [place] [address] [place] [address] REFILL Ilaris - PAx 03/27/25 - ND ~08/12 [facility] Comment on above: REFILL Ilaris - PAx 03/27/25 - ND ~08/12 Start: 07-30-2024 End: 07-30-2024 Follow-up encounter 07/30/2024 10:00 AM [facility] Rheumatology [address] [place] [address] Silvia [place] MD [address] [place] [address] follow up Rheumatology Comment on above: follow up Start: 07-30-2024 End: 07-30-2024 Patient encounter procedure 07/30/2024 10:00 AM EST Office Visit Rheumatology [address] [place] [address] Silvia [place] MD [address] [place] [address] follow up Rheumatology Comment on above: follow up Start: 07-27-2024 End: 07-27-2024 [facility] 07/27/2024 3:15 PM [facility] Chronic Care [address] [place] [address] Cindy Mac, RD [address] [place], [place] [phone] EATING DISORDER Chronic Care Comment on above: EATING DISORDER Start: 07-23-2024 End: 10-22-2024 25-hydroxyvitamin D3 [Mass/volume] in Serum or Plasma VITAMIN D 25 HYDROXY Lab Routine SO-JILLIAN (systemic onset juvenile idiopathic arthritis) (HCC) Expected: 07/23/2024 (Approximate), Expires: 10/22/2024 [facility] Comment on above: Expected: 07/23/2024 (Approximate), Expi res: 10/22/2024 Start: 07-23-2024 End: 10-22-2024 Alanine aminotransferase [Enzymatic activity/volume] in Serum or Plasma ALANINE AMINOTRANSFERASE / SGPT Lab Routine SO-JILLIAN (systemic onset juvenile idiopathic arthritis) ([facility]) Expected: 07/23/2024 (Approximate), Expires: 10/22/2024 [facility] Work Phone: Comment on above: Expected: 07/23/2024 (Approximate), Expi res: 10/22/2024 Start: 07-23-2024 End: 10-22-2024 Aspartate aminotransferase [Enzymatic activity/volume] in Serum or Plasma ASPARTATE AMINOTRANSFERASE/SGOT Lab Routine SO-JILLIAN (systemic onset juvenile idiopathic arthritis) ([facility]) Expected: 07/23/2024 (Approximate), Expires: 10/22/2024 [facility] Comment on above: Expected: 07/23/2024 (Approximate), Expi res: 10/22/2024 Start: 07-23-2024 End: 10-22-2024 C reactive protein [Mass/volume] in Serum or Plasma C-REACTIVE PROTEIN Lab Routine SO-JILLIAN (systemic onset juvenile idiopathic arthritis) ([facility]) Expected: 07/23/2024 (Approximate), Expires: 10/22/2024 [facility] Comment on above: Expected: 07/23/2024 (Approximate), Expi res: 10/22/2024 Start: 07-23-2024 End: 10-22-2024 CBC W Auto Differential panel - Blood COMPLETE BLOOD COUNT AND DIFFERENTIAL Lab Routine SO-JILLIAN (systemic onset juvenile idiopathic arthritis) ([facility]) Expected: 07/23/2024 (Approximate), Expires: 10/22/2024 [facility] Comment on above: Expected: 07/23/2024 (Approximate), Expi res: 10/22/2024 Start: 07-23-2024 End: 10-22-2024 CREATININE BLD CREATININE BLD Lab Routine SO-JILLIAN (systemic onset juvenile idiopathic arthritis) ([facility]) Expected: 07/23/2024 (Approximate), Expires: 10/22/2024 [facility] Comment on above: Expected: 07/23/2024 (Approximate), Expi res: 10/22/2024 Start: 07-23-2024 End: 10-22-2024 Erythrocyte sedimentation rate SEDIMENTATION RATE, WESTERGREN Lab Routine SO-JILLIAN (systemic onset juvenile idiopathic arthritis) (HCC) Expected: 07/23/2024 (Approximate), Expires: 10/22/2024 [facility] Comment on above: Expected: 07/23/2024 (Approximate), Expi res: 10/22/2024 Start: 07-23-2024 End: 10-22-2024 Urea nitrogen [Mass/volume] in Serum or Plasma UREA NITROGEN Lab Routine SO-JILLIAN (systemic onset juvenile idiopathic arthritis) (HCC) Expected: 07/23/2024 (Approximate), Expires: 10/22/2024 [facility] Comment on above: Expected: 07/23/2024 (Approximate), Expi res: 10/22/2024 Start: 07-05-2024 End: 07-05-2024 Specialty Pharmacy 07/05/2024 8:15 AM EST Specialty Pharmacy [facility] [address] [place] [address] Pharmacist, [facility] [address] [place] [address] [place] [address] REFILL Ilaris - PAx 03/27/25 - ND ~07/18 - lvm 07/02 [facility] Comment on above: REFILL Ilaris - PAx 03/27/25 - ND ~07/18 - lvm 07/02 Start: 07-02-2024 End: 07-02-2024 Specialty Pharmacy 07/02/2024 8:15 AM EST Specialty Pharmacy [facility] [address] [place], [place] [phone] Pharmacist, [facility] [address] [place] [address] [place] [address] REFILL Ilaris - PAx 03/27/25 - ND ~07/18 [facility] Comment on above: REFILL Ilaris - PAx 03/27/25 - ND ~07/18 Start: 06-13-2024 End: 06-13-2024 Specialty Pharmacy 06/13/2024 8:00 AM EDT Specialty Pharmacy [facility] [address] [place] [id number] Pharmacist, [facility] [address] [place] [address] [place] [address] REFILL Ilaris - PAx 03/27/25 - ND ~06/20? - PT wcb when avail 06/08 [facility] Comment on above: REFILL Ilaris - PAx 03/27/25 - ND ~06/20? - PT wcb when avail 06/08 Start: 06-08-2024 End: 06-08-2024 Specialty Pharmacy 06/08/2024 8:00 AM EDT Specialty [facility]acy [facility] [address] [place] [id number] Pharmacist, [facility] [address] [place] [address] [place] [address] REFILL Ilaris - PAx 03/27/25 ~06/20? [facility] Comment on above: REFILL Ilaris - PAx 03/27/25 - ND ~06/20? Start: 05-15-2024 End: 05-15-2024 Specialty Pharmacy 05/15/2024 8:15 AM EDT Specialty Pharmacy [facility] [address] [place] [phone] Pharmacist, [facility] [address] [place] [address] [place] [address] REFILL Ilaris - PAx 03/27/25 - ND 05/23? - RTS 05/15 [facility] Comment on above: REFILL [...] 9:00 AM EDT Office Visit Cardiology [address] [address] Selma Zambrano DO [address] [place] [address] 6 month follow up Cardiology Comment on above: 6 month follow up Start: 04-15-2024 Influenza vaccination Influenza Vaccine (#1) [facility] Start: 04-03-2024 End: 04-03-2024 Patient encounter procedure 04/03/2024 7:00 AM EDT Office Visit Internal Medicine [facility] [address] [place], [place] [phone] Genaro Morales APRN.[employer] [address] [place], [place] [phone] 3-4 month follow up Internal Medicine [facility] Comment on above: 3-4 month follow up Start: 04-02-2024 End: 07-02-2024 Alanine aminotransferase [Enzymatic activity/volume] in Serum or Plasma [facility] Work Phone: Comment on above: Expected: 04/02/2024 (Approximate), Expi res: 07/02/2024 Start: 04-02-2024 End: 07-02-2024 Aldolase [Enzymatic activity/volume] in Serum or Plasma [facility] Comment on above: Expected: 04/02/2024 (Approximate), Expi res: 07/02/2024 Start: 04-02-2024 End: 07-02-2024 Aspartate aminotransferase [Enzymatic activity/volume] in Serum or Plasma [facility] Comment on above: Expected: 04/02/2024 (Approximate), Expi res: 07/02/2024 Start: 04-02-2024 End: 07-02-2024 C reactive protein [Mass/volume] in Serum or Plasma [facility] Comment on above: Expected: 04/02/2024 (Approximate), Expi res: 07/02/2024 Start: 04-02-2024 End: 07-02-2024 Creatine kinase [Enzymatic activity/volume] in Serum or Plasma [facility] Comment on above: Expected: 04/02/2024 (Approximate), Expi res: 07/02/2024 Start: 04-02-2024 End: 07-02-2024 CREATININE BLD [facility] Comment on above: Expected: 04/02/2024 (Approximate), Expi res: 07/02/2024 Start: 04-02-2024 End: 07-02-2024 Erythrocyte sedimentation rate [facility] Comment on above: Expected: 04/02/2024 (Approximate), Expi res: 07/02/2024 Start: 04-02-2024 End: 07-02-2024 Urea nitrogen [Mass/volume] in Serum or Plasma [facility] Comment on above: Expected: 04/02/2024 (Approximate), Expi res: 07/02/2024 Start: 04-02-2024 End: 07-02-2024 Urinalysis complete panel - Urine [facility] Comment on above: Expected: 04/02/2024 (Approximate), Expi res: 07/02/2024 Start: 03-29-2024 End: 03-29-2024 Nursing evaluation of patient and report 03/29/2024 10:00 AM EDT Nurse Visit OB/Gynecology [address] [place], [place] [phone] Wstr, Nurse Substitute Teacher [facility] [address] [place], [place] [phone] HPV OB/Gynecology Comment on above: HPV Start: 03-15-2024 End: 03-15-2024 Patient encounter procedure 03/15/2024 9:20 AM EDT Office Visit OB/Gynecology [address] [place], [place] [phone] Karen Jenkins MD [address] [place], [place] [phone] Cervical high risk HPV (human papillomavirus) test [...] Office Visit OB/Gynecology [address] [place] [address] Ayaan Rowley APRN.CNM [address] [place] [address] Annual Exam OB/Gynecology Comment on above: Annual Exam Start: 02-26-2024 Screening for malignant neoplasm of cervix Cervical Cancer Screening [facility] Start: 01-02-2024 End: 01-02-2024 Patient encounter procedure 01/02/2024 4:40 PM EDT Office Visit Internal Medicine [facility] [address] [facility] [place] [address] Faustina Carcamo MD [address] [facility] [place] [address] F/u and new gi issues [facility] Comment on above: F/u and new gi issues Start: 01-02-2024 End: 04-02-2024 Basic metabolic 2000 panel - Serum or Plasma BASIC METABOLIC PANEL Lab Routine Encounter for long-term current use of medication Expected: 01/02/2024, Expires: 04/02/2024 [facility] Work Phone: Comment on above: Expected: 01/02/2024, Expires: Start: 12-08-2023 End: 03-08-2024 ALGN KIWI IGE ALGN KIWI IGE Lab Routine Expected: 12/08/2023, Expires: 03/08/2024 [facility] Comment on above: Expected: 12/08/2023, Expires: Start: 12-08-2023 End: 03-08-2024 ALGN LATEX IGE ALGN LATEX IGE Lab Routine Expected: 12/08/2023, Expires: 03/08/2024 [facility] Work Phone: Comment on above: Expected: 12/08/2023, Expires: Start: 12-08-2023 End: 03-08-2024 Banana IgE Ab [Units/volume] in Serum ALGN BANANA IGE Lab Routine Expected: 12/08/2023, Expires: 03/08/2024 [facility] Comment on above: Expected: 12/08/2023, Expires: Start: 10-24-2023 End: 01-23-2024 25-hydroxyvitamin D3 [Mass/volume] in Serum or Plasma VITAMIN D 25 HYDROXY Lab Routine Vitamin D deficiency Expected: 10/24/2023, Expires: 01/23/2024 [facility] Work Phone: Comment on above: Expected: 10/24/2023, Expires: Start: 10-24-2023 End: 01-23-2024 Thyroxine (T4) free [Mass/volume] in Serum or Plasma T4 FREE/FREE THYROX Lab Routine Elevated TSH Inappropriate sinus node tachycardia (HCC) Expected: 10/24/2023, Expires: 01/23/2024 [facility] Work Phone: Comment on above: Expected: 10/24/2023, Expires: Start: 10-24-2023 End: 01-23-2024 Triiodothyronine (T3) Free [Mass/volume] in Serum or Plasma T3 FREE BLD Lab Routine Elevated TSH Inappropriate sinus node tachycardia (HCC) Expected: 10/24/2023, Expires: 01/23/2024 [facility] Work Phone: Comment on above: Expected: 10/24/2023, Expires: Start: 10-21-2023 PAP TESTING PAP TESTING [facility] Start: 10-21-2023 Screening for malignant neoplasm of cervix PAP SMEAR [facility] Start: 10-14-2023 End: 01-13-2024 Chlamydia trachomatis+Neisseria gonorrhoeae DNA [Presence] in Unspecified specimen by JOSSIE with probe detection [facility] Work Phone: Comment on above: Expected: 10/14/2023, Expires: Start: 10-14-2023 End: 01-13-2024 HIV 1+2 Ab [Presence] in Serum or Plasma by Immunoassay [facility] Work Phone: Comment on above: Expected: 10/14/2023, Expires: Start: 10-14-2023 End: 01-13-2024 SYPHILIS TOTAL W/REFLEX [facility] Work Phone: Comment on above: Expected: 10/14/2023, Expires: Start: 10-14-2023 End: 01-13-2024 TRICHOMONAS VAGINALIS NAAT [facility] Work Phone: Comment on above: Expected: 10/14/2023, Expires: Start: 08-20-2023 End: 10-20-2023 THYROID PEROXIDASE ANTIBODY BLOOD THYROID PEROXIDASE ANTIBODY BLOOD Lab Routine Elevated TSH Expected: 08/20/2023 (Approximate), Expires: 10/20/2023 [facility] Work Phone: Comment on above: Expected: 08/20/2023 (Approximate), Expi res: 10/20/2023 Start: 08-20-2023 End: 10-20-2023 Thyrotropin [Units/volume] in Serum or Plasma TSH BLD Lab Routine Elevated TSH Expected: 08/20/2023 (Approximate), Expires: 10/20/2023 [facility] Work Phone: Comment on above: Expected: 08/20/2023 (Approximate), Expi res: 10/20/2023 Start: 08-17-2023 Covid-19 Vaccine () Covid-19 Vaccine () [facility] Start: 07-22-2023 End: 07-22-2024 PELVIC US WHI PELVIC US WHI Anc Imaging Routine Pelvic pain in female Expected: 07/22/2023, Expires: 07/22/2024 [facility] Work Phone: Comment on above: Expected: 07/22/2023, Expires: Start: 04-15-2023 Covid-19 Vaccine (2022- season) Covid-19 Vaccine () [facility] Start: 04-15-2023 Influenza vaccination [facility] Start: 12-03-2022 End: 02-02-2023 Alanine aminotransferase [Enzymatic activity/volume] in Serum or Plasma [facility] Work Phone: Comment on above: Expected: 12/03/2022, Expires: 3 Start: 12-03-2022 End: 02-02-2023 Aspartate aminotransferase [Enzymatic activity/volume] in Serum or Plasma [facility] Work Phone: Comment on above: Expected: 12/03/2022, Expires: 3 Start: 12-03-2022 End: 02-02-2023 C reactive protein [Mass/volume] in Serum or Plasma [facility] Work Phone: Comment on above: Expected: 12/03/2022, Expires: 3 Start: 12-03-2022 End: 02-02-2023 CBC W Auto Differential panel - Blood [facility] Work Phone: Comment on above: Expected: 12/03/2022, Expires: 3 Start: 12-03-2022 End: 02-02-2023 CREATININE BLD [facility] Work Phone: Comment on above: Expected: 12/03/2022, Expires: 3 Start: 12-03-2022 End: 02-02-2023 Erythrocyte sedimentation rate [facility] Work Phone: Comment on above: Expected: 12/03/2022, Expires: 3 Start: 12-03-2022 End: 02-02-2023 Urea nitrogen [Mass/volume] in Serum or Plasma [facility] Work Phone: Comment on above: Expected: 12/03/2022, Expires: 3 Start: 2022 HPV TESTING HPV TESTING [facility] Start: 09-22-2022 COVID-19 VACCINE (6 - Pfizer risk series) COVID-19 VACCINE (6 - Pfizer risk series) [facility] Start: 09-10-2022 End: 09-10-2022 Patient encounter procedure 09/10/2022 Office Visit RESERVATIONIST Karen Duval, GENI-ABDIRAHMAN [address] [place] [address] Obstetrics and [facility] [place] Start: 04-15-2022 Influenza vaccination [facility] Start: 01-20-2022 End: 02-12-2023 Us transvaginal US FEMALE PELVIS TRANSVAG Radiology Routine Intrauterine contraceptive device threads lost, initial encounter Expected: 01/20/2022, Expires: 02/12/2023 [facility] Work Phone: Comment on above: Expected: 01/20/2022, Expires: 3 Start: 11-23-2021 COVID-19 VACCINE (5 - Booster for Pfizer series) COVID-19 VACCINE (5 - Booster for Pfizer series) [facility] Start: 10-20-2021 Screening for malignant neoplasm of cervix CERVICAL CANCER SCREENING DISCUSSION [facility] Start: 09-06-2021 COVID-19 Vaccine (3 - Booster for Pfizer series) COVID-19 Vaccine (3 - Booster for Pfizer series) [facility] Start: 05-15-2015 PNEUMOCOCCAL (2 - PCV) PNEUMOCOCCAL (2 - PCV) [facility] Start: 05-15-2015 Pneumococcal vaccination [facility] Start: 2013 Screening for malignant neoplasm of cervix CERVICAL CANCER SCREENING DISCUSSION [facility] Start: 2011 SHINGRIX VACCINE (1 of 2) SHINGRIX VACCINE (1 of 2) [facility] Start: 2010 Hepatitis C screening Hepatitis C Screening [facility] Start: 2007 HIV screening [facility] Start: 2004 Depression screening using PHQ-9 (Patient Health Questionnaire 9) score Depression Screening (PHQ-2/9) [facility] Start: 1995 History and physical examination, annual for health maintenance Wellness Visit [facility] Start: 1995 PREVENTATIVE HEALTH VISIT PREVENTATIVE HEALTH VISIT [facility] Start: 1992 Hepatitis C antibody, confirmatory test HEPATITIS C VIRUS SCREENING [facility] Start: 1992 Hepatitis C screening HEPATITIS C VIRUS SCREENING [facility] Start: 1992 Screening for malignant neoplasm of cervix Pap Smear [facility] End: 07-05-2024 Alanine aminotransferase [Enzymatic activity/volume] in Serum or Plasma ALT/SGPT Lab Routine SO-JILLIAN (systemic onset juvenile idiopathic arthritis) (HCC) Periodic fever syndrome (HCC) Every 3 months for 4 Occurrences starting 07/06/2023 until 07/05/2024 [facility] Work Phone: Comment on above: Every 3 months for 4 Occurrences startin g 07/06/2023 until 07/05/2024 End: 07-05-2024 Aspartate aminotransferase [Enzymatic activity/volume] in Serum or Plasma AST/SGOT BLD Lab Routine SO-JILLIAN (systemic onset juvenile idiopathic arthritis) (HCC) Periodic fever syndrome (HCC) Every 3 months for 4 Occurrences starting 07/06/2023 until 07/05/2024 [facility] Work Phone: Comment on above: Every 3 months for 4 Occurrences startin g 07/06/2023 until 07/05/2024 Bacteria identified in Urine by Culture URINE CULTURE Microbiology STAT RLQ abdominal pain Ordered: 06/28/2022 [facility] Comment on above: Ordered: 06/28/2022 End: 04-05-2024 C reactive protein [Mass/volume] in Serum or Plasma C-REACTIVE PROTEIN (CRP) Lab Routine SO-JILLIAN (systemic onset juvenile idiopathic arthritis) (HCC) Once per month for 3 Occurrences starting 04/06/2023 until 04/05/2024 [facility] Work Phone: Comment on above: Once per month for 3 Occurrences startin g 04/06/2023 until 04/05/2024 End: 07-05-2024 C reactive protein [Mass/volume] in Serum or Plasma C-REACTIVE PROTEIN (CRP) Lab Routine SO-JILLIAN (systemic onset juvenile idiopathic arthritis) (HCC) Periodic fever syndrome (HCC) Every 3 months for 4 Occurrences starting 07/06/2023 until 07/05/2024 [facility] Work Phone: Comment on above: Every 3 months for 4 Occurrences startin g 07/06/2023 until 07/05/2024 End: 04-05-2024 CBC W Auto Differential panel - Blood CBC + DIFF Lab Routine SO-JILLIAN (systemic onset juvenile idiopathic arthritis) (HCC) Once per month for 3 Occurrences starting 04/06/2023 until 04/05/2024 [facility] Work Phone: Comment on above: Once per month for 3 Occurrences startin g 04/06/2023 until 04/05/2024 End: 07-05-2024 CBC W Auto Differential panel - Blood CBC + DIFF Lab Routine SO-JILLIAN (systemic onset juvenile idiopathic arthritis) (HCC) Periodic fever syndrome (HCC) Every 3 months for 4 Occurrences starting 07/06/2023 until 07/05/2024 [facility] Work Phone: Comment on above: Every 3 months for 4 Occurrences startin g 07/06/2023 until 07/05/2024 Chlamydia trachomatis+Neisseria gonorrhoeae DNA [Presence] in Unspecified specimen by JOSSIE with probe detection GONORRHEA/CHLAMYDIA NAAT Lab Routine Screening for STD (sexually transmitted disease) 02/25/2023 4:49 PM EDT [facility] Work Phone: Chlamydia trachomatis+Neisseria gonorrhoeae DNA [Presence] in Unspecified specimen by JOSSIE with probe detection GONORRHEA/CHLAMYDIA NAAT Lab Routine Screen for STD (sexually transmitted disease) 02/20/2025 3:52 PM EDT [facility] COLPOSCOPY COLPOSCOPY Proce dures Routine Cervical high risk HPV (human papillomavirus) test positive Ordered: 03/12/2024 [facility] Work Phone: Comment on above: Ordered: 03/12/2024 COVID & INFLUENZA A/ B & RSV PCR, ROUTINE COVID & INFLUENZA A/B & RSV PCR, ROUTINE Microbiology Routine Acute cough URI, acute Ordered: 09/25/2024 [facility] Work Phone: Comment on above: Ordered: 09/25/2024 End: 04-05-2024 CREATININE BLD CREATININE BLD Lab Routine SO-JILLIAN (systemic onset juvenile idiopathic arthritis) (HCC) Once per month for 3 Occurrences starting 04/06/2023 until 04/05/2024 [facility] Work Phone: Comment on above: Once per month for 3 Occurrences startin g 04/06/2023 until 04/05/2024 End: 07-05-2024 CREATININE BLD CREATININE BLD Lab Routine SO-JILILAN (systemic onset juvenile idiopathic arthritis) (HCC) Periodic fever syndrome (HCC) Every 3 months for 4 Occurrences starting 07/06/2023 until 07/05/2024 [facility] Work Phone: Comment on above: Every 3 months for 4 Occurrences startin g 07/06/2023 until 07/05/2024 End: 05-20-2024 ECG COMPLETE ECG COMPLETE ECG Routine Abnormal EKG POTS (postural orthostatic tachycardia syndrome) 1 Occurrences starting 05/20/2023 until 05/20/2024 [facility] Work Phone: Comment on above: 1 Occurrences starting 05/20/2023 until 05/20/2024 End: 04-05-2024 Erythrocyte sedimentation rate SED RATE WESTERGREN Lab Routine SO-JILLIAN (systemic onset juvenile idiopathic arthritis) (HCC) Once per month for 3 Occurrences starting 04/06/2023 until 04/05/2024 [facility] Work Phone: Comment on above: Once per month for 3 Occurrences startin g 04/06/2023 until 04/05/2024 End: 07-05-2024 Erythrocyte sedimentation rate SED RATE WESTERGREN Lab Routine SO-JILLIAN (systemic onset juvenile idiopathic arthritis) (HCC) Periodic fever syndrome (HCC) Every 3 months for 4 Occurrences starting 07/06/2023 until 07/05/2024 [facility] Work Phone: Comment on above: Every 3 months for 4 Occurrences startin g 07/06/2023 until 07/05/2024 End: 04-05-2024 Hepatic function 2000 panel - Serum or Plasma HEPATIC FUNCTION PNL Lab Routine SO-JILLIAN (systemic onset juvenile idiopathic arthritis) ([facility]) Once per month for 3 Occurrences starting 04/06/2023 until 04/05/2024 [facility] Work Phone: Comment on above: Once per month for 3 Occurrences startin g 04/06/2023 until 04/05/2024 Influenza virus A an d B RNA and SARS-CoV-2 (COVID-19) N gene panel - Respiratory specimen by JOSSIE with probe detection COVID & INFLUENZA A/B NAAT, ROUTINE Microbiology Routine Fever, unspecified fever cause 06/06/2023 8:54 AM EDT [facility] Work Phone: Insertion intrauteri ne device iud INSERT INTRAUTERINE DEVICE Procedures Routine Encounter for IUD insertion Ordered: 12/04/2021 [facility] Work Phone: Comment on above: Ordered: 12/04/2021 End: 04-05-2024 Lipid 1996 panel - Serum or Plasma LIPID PANEL BASIC Lab Routine SO-JILLIAN (systemic onset juvenile idiopathic arthritis) ([facility]) Every 6 months for 2 Occurrences starting 04/06/2023 until 04/05/2024 [facility] Work Phone: Comment on above: Every 6 months for 2 Occurrences startin g 04/06/2023 until 04/05/2024 End: 10-22-2022 Mri any jt lower extrem w/o contrast matrl MRI ANKLE WO IVCON LT Radiology Routine Chronic pain of left ankle 1 Occurrences starting 09/22/2021 until 10/22/2022 [facility] Work Phone: Comment on above: 1 Occurrences starting 09/22/2021 until 10/22/2022 PAP TEST PAP TEST Lab Rou subhash Encounter for gynecological examination (general) (routine) without abnormal findings 02/25/2023 4:49 PM EDT [facility] Work Phone: PAP TEST PAP TEST Lab Rou subhash Encounter for gynecological examination (general) (routine) without abnormal findings Screening for cervical cancer Encounter for screening for human papillomavirus (HPV) Cervical high risk human papillomavirus (HPV) DNA test positive 02/27/2024 3:56 PM EDT [facility] PAP TEST PAP TEST Lab Rou subhash Encounter for gynecological examination (general) (routine) without abnormal findings Screening for cervical cancer Encounter for screening for human papillomavirus (HPV) Ordered: 02/20/2025 [facility] Work Phone: Comment on above: Ordered: 02/20/2025 Removal intrauterine device iud REMOVE INTRAUTERINE DEVICE Procedures Routine Pelvic pain in female Ordered: 02/27/2024 [facility] Work Phone: Comment on above: Ordered: 02/27/2024 SURGICAL PATHOLOGY SURGICAL PATH OLOGY Lab Routine Cervical high risk HPV (human papillomavirus) test positive 03/15/2024 10:31 AM EDT [facility] Work Phone: End: 04-05-2024 Urea nitrogen [Mass/volume] in Serum or Plasma BUN BLOOD Lab Routine SO-JILLIAN (systemic onset juvenile idiopathic arthritis) ([facility]) Once per month for 3 Occurrences starting 04/06/2023 until 04/05/2024 [facility] Work Phone: Comment on above: Once per month for 3 Occurrences startin g 04/06/2023 until 04/05/2024 End: 07-05-2024 Urea nitrogen [Mass/volume] in Serum or Plasma BUN BLOOD Lab Routine SO-JILLIAN (systemic onset juvenile idiopathic arthritis) ([facility]) Periodic fever syndrome ([facility]) Every 3 months for 4 Occurrences starting 07/06/2023 until 07/05/2024 [facility] Work Phone: Comment on above: Every 3 months for 4 Occurrences startin g 07/06/2023 until 07/05/2024 End: 01-17-2026 XR HIP BILATERAL 5V PEL/AP/LAT EACH HIP XR HIP BILATERAL 5V PEL/AP/LAT EACH HIP Radiology Routine SO-JILLIAN (systemic onset juvenile idiopathic arthritis) ([facility]) 1 Occurrences starting 12/18/2024 until 01/17/2026 [facility] Comment on above: 1 Occurrences starting 12/18/2024 until 01/17/2026 End: 01-17-2026 XR Sacroiliac Joint Views XR SACROILIAC JOINTS 2V AP PELVIS/FERGUESON Radiology Routine SO-JILLIAN (systemic onset juvenile idiopathic arthritis) ([facility]) 1 Occurrences starting 12/18/2024 until 01/17/2026 [facility] Comment on above: 1 Occurrences starting 12/18/2024 until 01/17/2026 End: 11-12-2024 XR Shoulder - left 2 Views XR SHOULDER LIMITED 2V AP/TRUE AP LEFT Radiology Routine Chronic left shoulder pain 1 Occurrences starting 10/14/2023 until 11/12/2024 [facility] Work Phone: Comment on above: 1 Occurrences starting 10/14/2023 until 11/12/2024 XR Shoulder - left 2 Views XR SHOULDER LIMITED 2V AP/TRUE AP LEFT Radiology Routine Chronic left shoulder pain 10/14/2023 12:10 PM EST [facility] Work Phone: XR Shoulder - right 2 Views XR SHOULDER [id number] AP/TRUE AP RIGHT Radiology Routine Chronic left shoulder pain 10/14/2023 11:48 AM EST [facility] Work Phone: [facility] Immunizations Immunization Date Immunization Notes Care Provider Cailin nolasco 10-31-2024 tetanus toxoid, reduced diphtheria toxoid, and acellular pertussis vaccine, adsorbed Nicholas Dorantes APRN.CNP Work Phone: [facility] 04-21-2024 Seasonal trivalent influenza vaccine, adjuvanted, preservative free Patompong Ungprasert MD Work Phone: [facility] 04-21-2024 influenza virus vaccine, unspecified formulation Michelle Rojas APRN.GRAIN DRIER Work Phone: [facility] 03-29-2024 Human Papillomavirus 9-valent vaccine Ayaan Rowley MEDICAL STAFF SERVICES MANAGER.CNM Work Phone: [facility] 03-15-2024 HPV, unspecified formulation Karen Jenkins MD Work Phone: [facility] 05-24-2023 influenza, injectabl e, quadrivalent, contains preservative Karen Jenkins MD Work Phone: [facility] 05-24-2023 influenza virus vaccine, unspecified formulation Isela Street MD Work Phone: [facility] 07-20-2022 influenza, injectabl e, quadrivalent, preservative free Isis Melo SWITCHING OPERATOR Work Phone: [facility] 07-20-2022 influenza virus vaccine, unspecified formulation Faustina Carcamo MD Work Phone: [facility] 04-06-2021 COVID-19 vaccine, ag e 12+ yr (PFIZER-BIONTECH - PURPLE TOP) Ayaan Rowley MEDICAL STAFF SERVICES MANAGER.CNM Work Phone: [facility] Work Phone: 04-06-2021 influenza, injectabl e, quadrivalent, preservative free Isis Melo [facility] Work Phone: [facility] 04-06-2021 influenza, seasonal, injectable Ayaan Rowley MEDICAL STAFF SERVICES MANAGER.CNM Work Phone: [facility] Work Phone: 04-06-2021 influenza virus vaccine, unspecified formulation Mario LARRY Work Phone: [facility] 11-01-2020 COVID-19 vaccine, ag e 12+ yr (PFIZER-BIONTECH - PURPLE TOP) Ayaan Rowley MEDICAL STAFF SERVICES MANAGER.CNM Work Phone: [facility] Work Phone: 04-25-2020 influenza, injectabl e, quadrivalent, preservative free Ayaan Plotts MEDICAL STAFF SERVICES MANAGER.CNM Work Phone: [facility] 06-20-2019 influenza, injectabl e, quadrivalent, contains preservative Ayaan Plotts MEDICAL STAFF SERVICES MANAGER.CNM Work Phone: [facility] 03-08-2019 tetanus toxoid, reduced diphtheria toxoid, and acellular pertussis vaccine, adsorbed Ayaan Plotts MEDICAL STAFF SERVICES MANAGER.CNM Work Phone: [facility] 06-19-2018 influenza, injectabl e, quadrivalent, contains preservative Ayaan Plotts MEDICAL STAFF SERVICES MANAGER.CNM Work Phone: [facility] 04-27-2017 influenza, injectabl e, quadrivalent, contains preservative Ayaan Plotts MEDICAL STAFF SERVICES MANAGER.CNM Work Phone: [facility] 06-25-2016 influenza, injectabl e, quadrivalent, contains preservative Ayaan Plotts MEDICAL STAFF SERVICES MANAGER.CNM Work Phone: [facility] 05-15-2014 influenza, seasonal, injectable Ayaan Plotts MEDICAL STAFF SERVICES MANAGER.CNM Work Phone: [facility] 05-15-2014 pneumococcal polysaccharide vaccine, 23 valent Ayaan Plotts MEDICAL STAFF SERVICES MANAGER.CNM Work Phone: [facility] 06-19-2013 influenza virus vaccine, unspecified formulation Ayaan Plotts MEDICAL STAFF SERVICES MANAGER.CNM Work Phone: [facility] 04-15-2011 meningococcal polysaccharide (groups A, C, Y and W-135) diphtheria toxoid conjugate vaccine (MCV4P) Ayaan Plotts MEDICAL STAFF SERVICES MANAGER.CNM Work Phone: [facility] 03-17-2011 hepatitis A vaccine, pediatric/adolescent dosage, 2 dose schedule Mario ANDRES Work Phone: [facility] 03-17-2011 hepatitis A vaccine, unspecified formulation Ayaan Plotts MEDICAL STAFF SERVICES MANAGER.CNM Work Phone: [facility] Work Phone: 03-17-2011 tetanus toxoid, reduced diphtheria toxoid, and acellular pertussis vaccine, adsorbed Ayaan Plotts MEDICAL STAFF SERVICES MANAGER.CNM Work Phone: [facility] Work Phone: 03-17-2011 tuberculin skin test ; purified protein derivative solution, intradermal Patsangeethag Trenton PEÑA Work Phone: [facility] 01-14-2010 human papilloma viru s vaccine, quadrivalent Ayaan Plotts MEDICAL STAFF SERVICES MANAGER.CNM Work Phone: [facility] Work Phone: 06-14-2007 human papilloma viru s vaccine, quadrivalent Ayaan Plotts MEDICAL STAFF SERVICES MANAGER.CNM Work Phone: [facility] Work Phone: 05-09-2007 human papilloma viru s vaccine, quadrivalent Ayaan Plotts MEDICAL STAFF SERVICES MANAGER.CNM Work Phone: [facility] Work Phone: 04-04-2006 hepatitis B vaccine, pediatric or pediatric/adolescent dosage Ayaan Plotts MEDICAL STAFF SERVICES MANAGER.CNM Work Phone: [facility] Work Phone: 05-31-2005 hepatitis B vaccine, pediatric or pediatric/adolescent dosage Ayaan Plotts MEDICAL STAFF SERVICES MANAGER.CNM Work Phone: [facility] Work Phone: 04-02-2005 hepatitis B vaccine, pediatric or pediatric/adolescent dosage Ayaan Plotts MEDICAL STAFF SERVICES MANAGER.CNM Work Phone: [facility] Work Phone: 04-02-2005 meningococcal polysaccharide (groups A, C, Y and W-135) diphtheria toxoid conjugate vaccine (MCV4P) Mario LARRY Work Phone: [facility] 04-02-2005 Meningococcal, MCV4, unspecified conjugate formulation(groups A, C, Y and W-135) Ayaan Plotts MEDICAL STAFF SERVICES MANAGER.CNM Work Phone: [facility] Work Phone: 04-02-2005 tetanus and diphther ia toxoids, adsorbed, preservative free, for adult use (2 Lf of tetanus toxoid and 2 Lf of diphtheria toxoid) Ayaan Rowley MEDICAL STAFF SERVICES MANAGER.CNM Work Phone: [facility] Work Phone: 04-02-2005 tetanus and diphther ia toxoids, not adsorbed, for adult use Mario LARRY Work Phone: [facility] 03-17-1998 diphtheria, tetanus toxoids and acellular pertussis vaccine Ayaan Rowley MEDICAL STAFF SERVICES MANAGER.CNM Work Phone: [facility] Work Phone: 03-17-1998 measles, mumps and rubella virus vaccine Ayaan Rowley MEDICAL STAFF SERVICES MANAGER.CNM Work Phone: [facility] Work Phone: 03-17-1998 trivalent poliovirus vaccine, live, oral Ayaan Rowley MEDICAL STAFF SERVICES MANAGER.CNM Work Phone: [facility] Work Phone: 10-23-1994 diphtheria, tetanus toxoids and acellular pertussis vaccine Ayaan Rowley MEDICAL STAFF SERVICES MANAGER.CNM Work Phone: [facility] Work Phone: 10-23-1994 haemophilus influenz ae type b vaccine, HbOC conjugate Ayaan Rowley MEDICAL STAFF SERVICES MANAGER.CNM Work Phone: [facility] Work Phone: 10-23-1994 trivalent poliovirus vaccine, live, oral Ayaan Rowley MEDICAL STAFF SERVICES MANAGER.CNM Work Phone: [facility] Work Phone: 04-06-1994 Chicken Pox (disease) Jane Rowley MEDICAL STAFF SERVICES MANAGER.CNM Work Phone: [facility] Work Phone: 04-06-1994 poliovirus vaccine, unspecified formulation Mario LARRY Work Phone: [facility] 04-06-1994 varicella virus vaccine Ovi Herrera DO Work Phone: [facility] 02-02-1994 measles, mumps and rubella virus vaccine Ayaan Plotts MEDICAL STAFF SERVICES MANAGER.CNM Work Phone: [facility] Work Phone: 04-15-1993 diphtheria, tetanus toxoids and pertussis vaccine Ayaan Plotts MEDICAL STAFF SERVICES MANAGER.CNM Work Phone: [facility] Work Phone: 04-15-1993 haemophilus influenz ae type b vaccine, HbOC conjugate Ayaan Plotts MEDICAL STAFF SERVICES MANAGER.CNM Work Phone: [facility] Work Phone: 02-17-1993 diphtheria, tetanus toxoids and pertussis vaccine Ayaan Plotts MEDICAL STAFF SERVICES MANAGER.CNM Work Phone: [facility] Work Phone: 02-17-1993 haemophilus influenz ae type b vaccine, HbOC conjugate Ayaan Plotts MEDICAL STAFF SERVICES MANAGER.CNM Work Phone: [facility] Work Phone: 02-17-1993 trivalent poliovirus vaccine, live, oral Ayaan Plotts MEDICAL STAFF SERVICES MANAGER.CNM Work Phone: [facility] Work Phone: 1992 diphtheria, tetanus toxoids and pertussis vaccine Ayaan Plotts MEDICAL STAFF SERVICES MANAGER.CNM Work Phone: [facility] Work Phone: 1992 haemophilus influenz ae type b vaccine, HbOC conjugate Ayaan Plotts MEDICAL STAFF SERVICES MANAGER.CNM Work Phone: [facility] Work Phone: 1992 trivalent poliovirus vaccine, live, oral Ayaan Plotts MEDICAL STAFF SERVICES MANAGER.CNM Work Phone: [facility] Work Phone: Payers Date Payer Category Payer Self-pay 2024 Unknown [id number] 2024 Medicaid [id number] 2023 Unknown [id number] 2022 Private Health Insurance [id number] 2022 Private Health Insurance [id number] 2022 Unknown MMO MMO [employer] [id number] 2022-Present [phone] [address] [place] [address] PPO [id number] 2022 Unknown [id number] 2022 Unknown [id number] 2018 Medicaid [employer] [id number] 2018-Present [phone] [address] [place] [address] Medicaid [id number] 2018 Medicaid [id number] 1992 Unknown [id number] 1992 Unknown [id number] 1992 Unknown [id number] 594 1992 Unknown [id number]. 594 1992 Unknown [id number] 594 1992 Unknown [id number] 594 1992 Unknown [id number] 594 1992 Unknown [id number] 594 1992 Unknown [id number] 594 Unknown [id number] 462 Unknown [id number] 462 Unknown [id number] 462 Unknown [id number] 462 Unknown [id number] 462 Social History Date Type Detail Facility Start: 01-24-2015 End: 07-14-2022 Tobacco smoking status NHIS Never smoked tobacco [facility] Start: 01-24-2015 End: 07-14-2022 Tobacco use and exposure Smokeless tobacco non-user [facility] Start: 10-29-2021 End: 02-20-2025 Alcohol intake Current drinker of alcohol (finding) [facility] Start: 09-16-2021 End: 08-10-2022 History SDOH Alcohol Frequency 2 [facility] Start: 09-16-2021 End: 08-10-2022 History SDOH Alcohol Std Drinks 1 [facility] Start: 10-20-2020 History SDOH Alcohol Comment occiasionally [facility] Start: 09-16-2021 History SDOH Social Connections Phone 5 [facility] Start: 09-16-2021 End: 08-10-2022 History SDOH Social Connections Living 7 [facility] Start: 09-16-2021 End: 08-10-2022 History SDOH Stress 3 [facility] Start: 01-08-2020 Education 17 [facility] Start: 08-01-2012 Tobacco Comment father and mother smoke inside [facility] Start: 1990 Sex Assigned At Female [facility] Start: 11-03-2021 End: 11-13-2021 Exposure to SARS-CoV-2 (event) Yes [facility] Work Phone: Start: 05-06-2020 End: 06-28-2022 Exposure to SARS-CoV-2 (event) Not sure [facility] Start: 1990 Sex Assigned At Not on file [facility] Start: 07-14-2022 Tobacco Comment Father and Mother smoked in home. Stopped 03/2013. [facility] Start: 08-10-2022 History SDOH Stress 4 [facility] Start: 09-10-2022 End: 09-20-2022 Exposure to SARS-CoV-2 (event) Unable to assess [facility] Start: 08-09-2022 End: 02-21-2023 History of Social function [facility] Start: 08-09-2022 End: 02-21-2023 Social connection and isolation panel [facility] Are you now , , , , never or living with a partner? Never [facility] How often to you hav e a drink containing alcohol? Monthly or less [facility] How many standard drinks containing alcohol do you have on a typical day? 1 or 2 [facility] How often do you hav e 6 or more drinks on 1 occasion? Never [facility] How hard is it for y ou to pay for the very basics like food, housing, medical care, and heating Somewhat hard [facility] Adult Depression Screening Assessment 2 [facility] Do you feel stress - tense, restless, nervous, or anxious, or unable to sleep at night because your mind is troubled all the time - these days [OSQ] Rather much [facility] (I/We) worried wheth er (my/our) food would run out before (I/we) got money to buy more. Never true [facility] In the past 12 month s, was there a time when you were not able to pay the mortgage or rent on time? No [facility] Start: 11-17-2018 Gender identity Identifies as female gender (finding) [facility] Start: 03-17-2021 Sexual orientation Bisexual (finding) [facility] How often to you hav e a drink containing alcohol? 2-3 time sa week [facility] Do you feel stress - tense, restless, nervous, or anxious, or unable to sleep at night because your mind is troubled all the time - these days [OSQ] To some extent [facility] How often do you hav e 6 or more drinks on 1 occasion? Less than monthly [facility] (I/We) worried wheth er (my/our) food would run out before (I/we) got money to buy more. Sometimes true [facility] Start: 09-17-2013 Alcohol Comment About one drink every 2 months [facility] Are you now , , , , never or living with a partner? Living with partner [facility] Do you feel stress - tense, restless, nervous, or anxious, or unable to sleep at night because your mind is troubled all the time - these days [OSQ] Very much [facility] Medical Equipment Procedure Code Equipment Code Equipment Origin al Text Equipment Identifier Dates [id number], [id number], [id number], [id number], [id number] Start: 04-22-2021 End: 12-08-2023 Comment on above: 1 Syringe every 4 we eks. USE DIRECTED WITH [facility] Functional Status Date Assessment Result Facility 11-13-2024 Total score [AUDIT-C] 1 11/14/19 8:07 PM EDT User, Arline [facility] 11-13-2024 Within the last year , have you been humiliated or emotionally abused in other ways by your partner or ex-partner? No 11/13/2024 8:07 PM EDT User, Ciarrat [facility] 11-13-2024 Within the last year , have you been afraid of your partner or ex-partner? No 11/13/2024 8:07 PM EDT [facility] 11-13-2024 Within the last year , have you been raped or forced to have any kind of sexual activity by your partner or ex-partner? No 11/13/2024 8:07 PM EDT User, Ciarrat [facility] 11-13-2024 Within the last year , have you been kicked, hit, slapped, or otherwise physically hurt by your partner or ex-partner? No 11/13/2024 8:07 PM EDT User, Mychart No [facility] 11-13-2024 How often to you hav e a drink containing alcohol? Monthly or less 11/13/2024 8:07 PM EDT User, Mychart Monthly or less [facility] 11-13-[address] inks containing alcohol do you have on a typical day? 1 or 2 11/13/2024 8:07 PM EDT User, Mychart 1 or 2 [facility] 11-13-2024 How often do you hav e 6 or more drinks on 1 occasion? Never 11/13/2024 8:07 PM EDT User, Mychart Never [facility] 03-15-2015 Are you deaf, or do you have serious difficulty hearing No 03/15/2015 9:06 AM Lissette Guevara MA No [facility] 03-15-2015 Are you blind, or do you have serious difficulty seeing, even when wearing glasses No 03/15/2015 9:06 AM Lissette Guevara MA No [facility] 03-15-2015 Do you have serious difficulty walking or climbing stairs No 03/15/2015 9:06 AM Lissette Guevara MA No [facility] 03-15-2015 Do you have difficul ty dressing or bathing No 03/15/2015 9:06 AM Lissette Guevara MA No [facility] 03-15-2015 Because of a physica l, mental, or emotional condition, do you have difficulty doing errands alone such as visiting a physician's office or shopping No 03/15/2015 9:06 AM Lissette Guevara MA No [facility] Mental Status Date Assessment Result Facility 03-15-2015 Because of a physica l, mental, or emotional condition, do you have serious difficulty concentrating, remembering, or making decisions No 03/15/2015 9:06 AM Lissette Guevara MA No [facility] Clinical Notes 06-05-2020 to 02-23-2025 Telephone Encounter - Rebecca Maloney RN - 02/23/2025 5:30 AM EDTTelephone Encounter - Rebecca Maloney RN - 02/23/2025 5:30 AM Michelle Lopez APRN.LIZZIE - 02/20/2025 2:57 PM EDTAttachments Note Date & Type Note Facility 02-23-2025 Telephone encounter Note Patient calling regarding possible flair of symptoms, seen in ER yesterday, lab results elevated. Conferenced to [facility] laminating machine operator helper, Manisha, to speak with provider supervisor telephone clerks for Rheumatology., Dr. Tucker While waiting to speak to the Provider on-call, if you develop ANY new symptoms, if your condition worsens, or if you are concerned or anxious about your condition for any reason, go to the Emergency Room or call 911. [facility] 02-23-2025 Miscellaneous Notes Patient calling regarding possible flair of symptoms, seen in ER yesterday, lab results elevated. Conferenced to [facility] laminating machine operator helper, Manisha, to speak with provider supervisor telephone clerks for Rheumatology., Dr. Tucker While waiting to speak to the Provider on-call, if you develop ANY new symptoms, if your condition worsens, or if you are concerned or anxious about your condition for any reason, go to the Emergency Room or call 911. documented in this encounter [facility] 02-20-2025 History of Present illness Narrative Social Media Director offered: Patient declines. Curran is a 34 year old who presents [...] Living0 SAB0 IAB0 Ectopic0 Multiple0 Live Births0 Canoe Maker History LMP: 12/31/2021, IUD Age at Menarche: Age at First : Age at Menopause: Canoe Maker History Comments: Sexual Activity: Yes; Male; mirena inserted 11/2021 Contraception: I.U.D., Condom PAST MEDICAL HISTORY Diagnosis Date Anxiety Angeli Constantino Asthmatic bronchitis (HCC) recurrent episodes since pneumonia fall and winter Depression Angeli Constantino Epigastric abdominal pain Fibromyalgia Dr. 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[facility] Migraine with aura visual aura; diagnosed [...] arrhythmia Snoring Suicide attempt by acetaminophen overdose ([facility]) 06/2014 Syncope Vomiting PAST SURGICAL [...] discussed with the Patient or Patient's Authorized Gas Distribution Plant Operator. As applicable, any other physician, advance practice provider, medical student, or other health professional student that will be observing or involved in the sensitive examination for educational or training purposes was discussed with the Patient or Authorized Gas Distribution Plant Operator. The Patient or Authorized Gas Distribution Plant Operator has agreed to proceed with the sensitive [...] external genitalia normal, normal Bartholin's glands, urethra, Tiawah's glands, no vulvar lesions, no cervical lesions, [...] year or sooner as needed Michelle Rojas APRN.GRAIN DRIER documented in this encounter [facility] 01-31-2025 Note [facility] 01-09-2025 Note [facility] 01-09-2025 History of Present illness Narrative SUBJECTIVE Liliam Thompson is a 34 year old female here today for a check up on her medical problems. Chief Complaint Patient presents with: Recheck: Persistent diarrhea and vomiting for the last 5 days. Able to eat sweet pickled fruit maker but then nausea and vomiting started later. [...] life stressors, including a potential move to [place] next month. She is currently taking 10 [...] reaction.Seek emergent medical care immediately after use.Disp:1 2-pakw/pet trainer albuterol HFA (PROAIR HFA) 90 mcg/actuation [...] and agoraphobia due to potential move to [place] next month. Currently on Prozac 10 mg [...] take 1-2 tablets per dose. - Initiate [id number] probiotics to restore gut jimmie. - Monitor for changes in stool color; advised to report any dark red, maroon, or black stools. - Follow-up via Bit[employer] message by the end of the week to report symptom status. Recording using Music[employer] software for draft documentation of the visit was discussed with the patient/authorized patient care representative; all questions welcomed and answered. Patient/authorized patient care representative agreed to proceed Portions of this [...] if symptoms worsen or fail to improve. BOAZ Parr documented in this encounter [facility] 01-03-2025 Note [facility] 12-21-2024 Note [facility] 12-21-2024 History of Present illness Narrative [facility] Subjective Liliam Thompson is a 34 year [...] Diagnosis Date Anxiety Angeli Constantino Asthmatic bronchitis ([facility]) recurrent episodes since pneumonia fall and winter Depression Angeli Constantino Epigastric abdominal pain Fibromyalgia Dr. 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[facility] Migraine with aura visual aura; diagnosed [...] arrhythmia Snoring Suicide attempt by acetaminophen overdose ([facility]) 06/2014 Syncope Vomiting PAST SURGICAL [...] reaction.Seek emergent medical care immediately after use.Disp:1 2-pakw/pet trainer albuterol HFA (PROAIR HFA) 90 mcg/actuation [...] advised: Tylenol/Motrin Procedures documented in this encounter [facility] 12-18-2024 Telephone encounter Note Called patient and questions answered. Maile Stacy RN [facility] 12-18-2024 Miscellaneous Notes Called patient and questions answered. Maile Stacy RN Patient called has procedure on 12/19 Patient asking if there if any special instructions before apt also is it okay if she take b/c and or advil before apt Patient can be reached at [phone] Please advise documented in this encounter [facility] 12-18-2024 Telephone encounter Note Patient called has procedure on 12/19 Patient asking if there if any special instructions before apt also is it okay if she take b/c and or advil before apt Patient can be reached at [phone] Please advise [facility] Work Phone: 12-18-2024 Instructions Silvia Tucker MD - 12/18/2024 8:26 AM EDT Labs and Xray today I will contact you through [employer] for results documented in this encounter [facility] 12-18-2024 History of Present illness Narrative Silvia Tucker MD Liliam Oneill Josh December 17, 2024 Referring Provider: PCP: Faustina Carcamo MD Chief Complaint: Patient presents with: Recheck Background Rheumatologic History: Previously seen by multiple providers in our division From Dr. Lucero - Started having fevers in [place]/Senior year of high school. [age]yo Was later diagnosed with inflammatory arthritis. [id number] Was treated with hydroxychloroquine + methotrexate While [...] chest, [facility] she has difficulty [facility] down. If she [...] 6 times/year (20mg tapered down) -IM steroids [id number] q3-4 months -Prednisone 2012 - 6 week long tapers - q 2-3 months -Prednisone 2012 - 2017 - q 3-4 months -Prednisone - last Jul 2020 - 20mg taper by 5mg every 3 days -Anakinra: 07/2018 - 08/2019 (D/C due to ineffectiveness, recurrent flares and injection site reactions) Plan at [facility]: Assessment and Plan: 30 year old [...] osteoporosis - ICD9: V82.81, ICD10: Z13.820 -Prior intermediate designer steroid use along with history of osteoporosis [...] abdominal pain Fibromyalgia Dr. 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[facility] Migraine with aura visual aura; diagnosed [...] 11/01/2020 04/06/2021 COVID-19 vaccine, age 12+ yr ([employer]-BIONTECH COMIRNATY) 06/22/2023 04/21/2024 COVID-19 vaccine, age 12+ [...] reaction.Seek emergent medical care immediately after use.Disp:1 2-pakw/pet trainer 2 Each 0 albuterol HFA (PROAIR [...] RAGWEED VERIFIED BY SKIN TESTING Physical Exam: [facility] 12/31/2021 General: Not pale, no jaundice, not [...] Return Visit: I will contact her through [employer] for results. We will make a plan after the results are available. I spent a total of 40 minutes on the date of the service which included preparing to see the patient, dtcd-cm-hvqq patient care, completing clinical documentation, obtaining and/or reviewing separately obtained history, performing a medically appropriate examination, counseling and educating the patient/family/caregiver, and ordering medications, tests, or procedures. Silvia Tucker MD Referring Provider: PCP: Faustina Carcamo MD documented in this encounter [facility] 12-18-2024 Note [facility] 12-06-2024 Note [facility] 11-23-2024 Telephone encounter Note Just needs scheduled with a physician (Saad Jenkins Wiswell, [place]) so Endosee (in office camera) can be used at the same time. Please contact patient to schedule. Janett Heard RN [facility] 11-23-2024 Miscellaneous Notes Just needs scheduled with a physician (Saad Jenkins Wiswell, [place]) so Endosee (in office camera) can be used at the same time. Please contact patient to schedule. Janett Heard RN Patient calling in regards to getting her IUD removed. She does have an active request for this. However she stated that she was told to let the electrical instrumentation technician know for her there has to be a camera for visibility . Wanting to make sure this does not have to be scheduled a certain way. Please review and advise. La Nena Lui November 23, 2024 3:25 PM documented in this encounter [facility] 11-23-2024 Telephone encounter Note Patient calling in regards to getting her IUD removed. She does have an active request for this. However she stated that she was told to let the electrical instrumentation technician know for her there has to be a camera for visibility . Wanting to make sure this does not have to be scheduled a certain way. Please review and advise. La Nena Lui November 23, 2024 3:25 PM [facility] 11-22-2024 History of Present illness Narrative VIRTUAL VISIT PROGRESS NOTE This is a virtual visit using WeatherBugt [employer] Flipping Pro'som Video Visit. It required patient-provider interaction for the medical decision making as documented below. I have communicated my name and active licensure. The patient's identity and physical location were verified at the time of this visit. Either the patient or their legal patient care representative has been informed of the risks [...] 16-17yo Was later diagnosed with inflammatory arthritis. [id number] Was treated with hydroxychloroquine + methotrexate While [...] chest, when she tries to sleep at [facility] she has difficulty laying down. If she [...] flares and injection site reactions) Plan at [facility]: Assessment and Plan: 30 year old [...] osteoporosis - ICD9: V82.81, ICD10: Z13.820 -Prior intermediate designer steroid use along with history of osteoporosis [...] Dr. 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 @[facility] Migraine with aura visual aura; diagnosed [...] COVID-19 original vaccine, age 12+ yr, monovalent ([employer] - ALANIZ TOP) 09/28/2021 COVID-19 original vaccine, age 12+ yr, monovalent ([employer] - PURPLE TOP) 10/11/2020 11/01/2020 04/06/2021 COVID-19 vaccine, age 12+ yr ([employer] COMIRNATY) 06/22/2023 04/21/2024 COVID-19 vaccine, age 12+ yr, bivalent ([employer]) 07/28/2022 Haemophilus influenzae b (HbOC) vaccine, 4-dose [...] reaction.Seek emergent medical care immediately after use.Disp:1 2-pakw/pet trainer 2 Each 0 benzonatate (TESSALON PERLE) [...] which included preparing to see the patient, xzom-cn-cukd patient care, completing clinical documentation, obtaining and/or reviewing separately obtained history, performing a medically appropriate examination, counseling and educating the patient/family/caregiver, and ordering medications, tests, or procedures. Silvia Tucker MD Referring Provider: PCP: Faustina Carcamo MD documented in this encounter [facility] 11-22-2024 Note [facility] 11-22-2024 Note [facility] 11-22-2024 History of Present illness Narrative [employer] Subjective Liliam Thompson is a 34 year [...] Diagnosis Date Anxiety Angeli Constantino Asthmatic bronchitis ([facility]) recurrent episodes since pneumonia fall and winter Depression Angeli Constantino Epigastric abdominal pain Fibromyalgia Dr. 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[facility] Migraine with aura visual aura; diagnosed with complex migraines Nausea MAXEWLL (obstructive sleep apnea) 03/10/2016 PMH - PAST MEDICAL HISTORY OF age 1 1/2 febrile seizures-with varicella PMH - PAST MEDICAL HISTORY OF 6-7 months dislocated elbow PMH - PAST MEDICAL HISTORY OF menarche age 14 years PMH - PAST MEDICAL HISTORY OF 1998 normal color vision POTS (postural orthostatic tachycardia syndrome) 04/23/2018 Rectal bleeding Sinus arrhythmia Snoring Suicide attempt by acetaminophen overdose ([facility]) 06/2014 Syncope Vomiting PAST SURGICAL [...] reaction.Seek emergent medical care immediately after use.Disp:1 2-pakw/pet trainer benzonatate (TESSALON PERLE) 100 mg capsule [...] advised: Tylenol/Motrin Procedures documented in this encounter [facility] 11-19-2024 Note [facility] 11-19-2024 History of Present illness Narrative TREVOR [...] is provided by the patient. No language translator was used. Sore Throat This is a [...] Diagnosis Date Anxiety Angeli Constantino Asthmatic bronchitis ([facility]) recurrent episodes since pneumonia fall and winter Depression Angeli Constantino Epigastric abdominal pain Fibromyalgia Dr. 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[facility] Migraine with aura visual aura; diagnosed [...] arrhythmia Snoring Suicide attempt by acetaminophen overdose ([facility]) 06/2014 Syncope Vomiting PAST SURGICAL [...] reaction.Seek emergent medical care immediately after use.Disp:1 2-pakw/pet trainer predniSONE (DELTASONE) 10 mg tablet Take [...] - STREP A MOLECULAR (POC) Rosaura Santacruz APRN.GRAIN DRIER History and Record Review External record(s) reviewed: prior inpatient record and prior outpatient record. Differential Diagnoses - viral pharyngitis is more likely for the following reason(s): suggested by H&P and consistent with laboratory studies - strep is less likely for the following reason(s): laboratory studies not suggestive Disposition The patient was discharged. Procedures documented in this encounter [facility] 11-08-2024 Telephone encounter Note Reason for Call: [...] denies Protocols used: Heart Rate and Heartbeat [id number] [facility] 11-08-2024 Miscellaneous Notes Reason for Call: symptomatic [...] denies Protocols used: Heart Rate and Heartbeat [id number] documented in this encounter [facility] 11-08-2024 Note [facility] 10-31-2024 Note [facility] 10-31-2024 History of Present illness Narrative Images from the original note were not included. Subjective HPI Nontoxic-appearing 34-year-old female presents urgent care chief complaint finger laceration. Patient states was cutting herbs with a kitchen knife at home when she cut her middle finger left hand. Tilbq-wdxw-qjvsogiy. States thoroughly wash hand with soap and [...] abdominal pain Fibromyalgia Dr. 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[facility] Migraine with aura visual aura; diagnosed [...] arrhythmia Snoring Suicide attempt by acetaminophen overdose ([facility]) 06/2014 Syncope Vomiting PAST SURGICAL [...] reaction.Seek emergent medical care immediately after use.Disp:1 2-pakw/pet trainer predniSONE (DELTASONE) 10 mg tablet Take [...] of care. This note was generated using CrowdRise software. It may contain errors in wording, punctuation, or spelling. Nicholas Dorantes APRN.LIZZIE documented in this encounter [facility] 10-29-2024 Telephone encounter Note Called patient to [...] is okay with a response over MyChart. [facility] 10-29-2024 Miscellaneous Notes Called patient to discuss [...] listed below.. Patient can be reached at :[phone] documented in this encounter [facility] 10-29-2024 Telephone encounter Note Patient has been [...] listed below.. Patient can be reached at :[phone] [facility] 10-26-2024 Telephone encounter Note Prescription Refill Information [...] Jenkins LPN October 26, 2024 10:03 AM [facility] 10-26-2024 Miscellaneous Notes Prescription Refill Information The [...] 2024 10:03 AM documented in this encounter [facility] 10-24-2024 History of Present illness Narrative Radiology [...] PATIENT PRESENTS WITH AN IMPLANTABLE OR ATTACHED HOUSEKEEPING CLEANER: No RADIOLOGY DEPARTMENT: General X-ray: Exam(s) Completed: Upper Extremity X-Ray(s): Wrist, left PERIPHERAL IV DATA: Not applicable SIGNED BY: RT Sharyn(R) October 24, 2024 11:55 AM documented in this encounter [facility] 10-24-2024 Note [facility] 10-24-2024 Note [facility] 10-24-2024 History of Present illness Narrative Images [...] pain: X 2 weeks-injured it in the [facility] PAST MEDICAL HISTORY Diagnosis Date Anxiety Angeli Constantino Asthmatic bronchitis recurrent episodes since pneumonia fall and winter Depression Angeli Constantino Epigastric abdominal pain Fibromyalgia Dr. 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 Migraine with aura visual aura; diagnosed with [...] arrhythmia Snoring Suicide attempt by acetaminophen overdose ([facility]) 06/2014 Syncope Vomiting PAST SURGICAL [...] reaction.Seek emergent medical care immediately after use.Disp:1 2-pakw/pet trainer naratriptan (AMERGE) 2.5 mg tablet Take [...] pain: X 2 weeks-injured it in the [facility] Review of Systems Objective BP 130/80 Pulse [...] injury Dictated by : MD Steven TURNER APRN.LIZZIE [facility] Procedures documented in this encounter [facility] 10-16-2024 Note [facility] 10-16-2024 History of Present illness Narrative This note was created using [employer]. Subjective Liliam Thompson is a 34 year [...] symptoms. PAST MEDICAL HISTORY Diagnosis Date Anxiety Deangeloamarilis Constantino Asthmatic bronchitis recurrent episodes since pneumonia fall and winter Depression Melbashannanamarilis Constantino Epigastric abdominal pain Fibromyalgia Dr. 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[facility] Migraine with aura visual aura; diagnosed [...] arrhythmia Snoring Suicide attempt by acetaminophen overdose ([facility]) 06/2014 Syncope Vomiting Current Outpatient [...] reaction.Seek emergent medical care immediately after use.Disp:1 2-pakw/pet trainer naratriptan (AMERGE) 2.5 mg tablet Take [...] bone demineralization. - Advised considering a daily uwxy-nce-dtwqjvs vitamin D supplement of 5,000 IU for [...] Faustina Carcamo MD documented in this encounter [facility] 10-16-2024 Note [facility] 09-25-2024 Note SARS-COV-2 (AGENT OF COVID-19) RNA: Not detected INFLUENZA A RNA: Not detected INFLUENZA B RNA: Not detected RESPIRATORY SYNCYTIAL VIRUS (RSV) RNA: Not detected [facility] Comment on above: Performed By: #### 9 [id number] ####[facility] LABCLIA [id number] [address] 09-25-2024 History of Present illness Narrative Radiology [...] PATIENT PRESENTS WITH AN IMPLANTABLE OR ATTACHED HOUSEKEEPING CLEANER: No RADIOLOGY DEPARTMENT: General X-ray: Exam(s) Completed: Chest X-Ray PERIPHERAL IV DATA: Not applicable SIGNED BY: Saima Daly September 25, 2024 9:20 AM documented in this encounter [facility] 09-25-2024 Note [facility] 09-25-2024 Note [facility] 09-25-2024 History of Present illness Narrative This note was created using NoteWriter. Subjective Liliam Thompson is a 33 year [...] is provided by the patient. No language translator was used. Cough This is a new [...] abdominal pain Fibromyalgia Dr. 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[facility] Migraine with aura visual aura; diagnosed [...] reaction.Seek emergent medical care immediately after use.Disp:1 2-pakw/pet trainer naratriptan (AMERGE) 2.5 mg tablet Take [...] RSV PCR, ROUTINE-obtained and pending Rosaura Santacruz APRN.GRAIN DRIER documented in this encounter [facility] 09-13-2024 History of Present illness Narrative [facility] [...] been reviewed prior to dispensing the medication. Personal Financial Representative Assessment Patient confirmed: Yes Med/dose confirmed: Yes Supplies needed: No supplies needed Missed doses: No Estimated days supply on hand: 0 Next cycle/dose due: 09/25/24 Copay amount: 0 Delivery method: FedEx Signature required: Waived on patient request Delivery address: [address], [place] [address] Delivery date: 09/19/24 Questions or concerns for [...] reaction.Seek emergent medical care immediately after use.Disp:1 2-pakw/pet trainer naratriptan (AMERGE) 2.5 mg tablet Take [...] facility-administered medications on file prior to visit. [facility] SPECIALTY CLINICAL ASSESSMENT - INFLAMMATORY [...] efficacy Beena Tian documented in this encounter [facility] 09-13-2024 Note [facility] 09-11-2024 Note [facility] 09-11-2024 History of Present illness Narrative This Team Access Model visit is a virtual encounter. It required patient-provider interaction for the medical decision making as documented below. I have communicated my name and active licensure. The patient's identity and physical location were verified at the time of this visit. Either the patient or their legal patient care representative has been informed of the risks and benefits of -- and alternatives to -- treatment through a remote evaluation and consents to proceed with the evaluation remotely. Patient Location: [place] CC: Patient presents with: Anxiety HPI Liliam [...] abdominal pain Fibromyalgia Dr. 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[facility] Migraine with aura visual aura; diagnosed [...] arrhythmia Snoring Suicide attempt by acetaminophen overdose ([facility]) 06/2014 Syncope Vomiting PAST SURGICAL [...] reaction.Seek emergent medical care immediately after use.Disp:1 2-pakw/pet trainer naratriptan (AMERGE) 2.5 mg tablet Take [...] options, medications, and coordinating care. Moon Encinas APRN.GRAIN DRIER documented in this encounter [facility] 09-07-2024 Telephone encounter Note Pt read the [employer] with Dr. Carcamo' information and the phone numbers. Last read by Bina Thompson at 7:22 PM on 09/06/2024. [facility] 09-07-2024 Miscellaneous Notes [facility] the [facility] msg [facility]. Carcamo' information and the phone numbers. Last read by Bina Thompson at 7:22 PM on 09/06/2024. Called and left a detailed voicemail notifying patient of providers message. Clinic phone number was left for the patient to call back and answer providers questions. Sent information through to [facility] as well. Irene Currie RN My apologies--I did get a message back from Chiquita Montez--she cannot add more patients due to her filled panel size but said that can make referrals for other providers within [facility] system. Below is her note to me: Pantera Wilson, I am currently not able to accept new patients for general psychiatric diagnosis due to my panel size. You can continue to put the consult to psychiatry order and if the patients are willing to see a provider virtually, they can call [phone] and schedule an appointment with a provider in our department. If they are looking for in person and virtual options, you can put the consult and then have them Call [phone] to schedule an appointment with an [facility] provider. Hope that helps, Chiquita See if patient wants to start with seeing someone virtually by calling the number above or if wants to see someone in person and needs a referral to someone through [facility]. Pt calling in as she had a virtual visit with Dr. Carcamo on 08/20/24. Pt states Dr. Cracamo mentioned that she was going to message a psychology Nurse practitioner that used to come to [place] to possibly refer pt to. Pt has not heard anything back. Pt's OV note from 08/20 is not completed so unsure of Dr. Carcamo' plan. Will send msg to provider for instructions. Noted pt was to have a return visit in 6 months around 02/17/[address] Carcamo. Pt declined offered appts with silver cleaner. States she prefers to stay with Dr. Carcamo. Last in person visit with Dr. Carcamo was 12/2023. Pt booked for in person appt on 03/18/[address] Carcamo. documented in this encounter [facility] 09-06-2024 Telephone encounter Note Called and left a detailed voicemail notifying patient of providers message. Clinic phone number was left for the patient to call back and answer providers questions. Sent information through to Pts MyChart as well. Irene Currie RN [facility] 09-06-2024 Telephone encounter Note My apologies--I did get a message back from Chiquita Montez--she cannot add more patients due to her filled panel size but said that can make referrals for other providers within [facility] system. Below is her note to me: Pantera Wilson, I am currently not able to accept new patients for general psychiatric diagnosis due to my panel size. You can continue to put the consult to psychiatry order and if the patients are willing to see a provider virtually, they can call [phone] and schedule an appointment with a provider in our department. If they are looking for in person and virtual options, you can put the consult and then have them Call [phone] to schedule an appointment with an [facility] provider. Hope that helps, Chiquita See if patient wants to start with seeing someone virtually by calling the number above or if wants to see someone in person and needs a referral to someone through [facility]. [facility] 09-06-2024 Instructions Faustina Carcamo MD - 09/06/2024 6:12 PM EST ,- Continue taking your current medications as prescribed. - Start taking Hydroxyzine 50 mg tablets, up to three times daily as needed for anxiety; prescription sent to [facility] in [place]. - Practice deep breathing exercises: inhale for 4 seconds, exhale for 8 seconds to help manage heart symptoms. - Stay hydrated and maintain electrolyte balance to support heart health. - Complete lab tests ordered by your geologist petroleum, including liver enzymes, CO2 protein, blood count, sed rate, creatinine, blood urea nitrogen, and vitamin D. - Follow up with a search marketing coordinator if heart symptoms become bothersome. - Next appointment scheduled in 6 months; you will be contacted with the date and time. documented in this encounter [facility] 09-06-2024 Telephone encounter Note Pt calling in as she had a virtual visit with Dr. Carcamo on 08/20/[address]. [address] Carcamo mentioned that she was going to message a psychology Nurse practitioner that used to come to [place] to possibly refer pt to. Pt has not heard anything back. Pt's OV note from 08/20 is not completed so unsure of Dr. Carcamo' plan. Will send msg to provider for instructions. Noted pt was to have a return visit in 6 months around 02/17/[address] Carcamo. Pt declined offered appts with silver cleaner. States she prefers to stay with Dr. Carcamo. Last in person visit with Dr. Carcamo was 12/2023. Pt booked for in person appt on 03/18/[address] Carcamo. [facility] 08-27-2024 Telephone encounter Note Prescription Refill Information [...] Jenkins LPN August 27, 2024 2:31 PM [facility] 08-27-2024 Miscellaneous Notes Prescription Refill Information The [...] 2024 2:31 PM documented in this encounter [facility] 08-20-2024 Note [facility] 08-20-2024 History of Present illness Narrative VIRTUAL VISIT PROGRESS NOTE This is a virtual visit using addwishom Video Visit. It required patient-provider interaction for the medical decision making as documented below. I have communicated my name and active licensure. The patient's identity and physical location were verified at the time of this visit. Either the patient or their legal patient care representative has been informed of the risks [...] presenting for follow-up. Liliam reports that her search marketing coordinator, Dr. Zambrano, has retired, and she is inquiring about whether she should follow up with another search marketing coordinator. She mentions that she met with his MEDICAL DEVICE ENGINEER after his departure, but the follow-up was canceled. She recalls a note from the MEDICAL DEVICE ENGINEER stating that her 30-day event monitor showed [...] also reports experiencing chest pain, which her geologist petroleum attributes to pleurisy, noting that it worsens [...] since pneumonia fall and winter Depression Angeli Constantion Epigastric abdominal pain Fibromyalgia Dr. 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[facility] Migraine with aura visual aura; diagnosed [...] reaction.Seek emergent medical care immediately after use.Disp:1 2-pakw/pet trainer naratriptan (AMERGE) 2.5 mg tablet Take [...] with rheumatologic flares. - Continue management under geologist petroleum's care. - Patient to complete pending lab work ordered by geologist petroleum, including liver enzymes, CMP, and vitamin D levels. There are no Patient Instructions on file for this visit. I spent a total of 29 minutes on the date of the service which included preparing to see the patient, [id number]-[id number] patient care, completing clinical documentation, obtaining and/or reviewing separately obtained history, performing a medically appropriate examination, counseling and educating the patient/family/caregiver, ordering medications, tests, or procedures, independently interpreting results (not separately reported), and communicating results to the patient/family/caregiver Faustina Carcamo MD documented in this encounter [facility] 08-02-2024 Note [facility] 08-01-2024 Instructions Crtalic-Cindy Trinidad RD - 08/01/2024 10:42 AM EST Nutrition Intervention 07/27/2024: Goals: to continue to eat 6x day Wants to enjoy cooking and eating again Small plates for snacks only, not food Take picture of meals and discuss at next appointment documented in this encounter [facility] 07-30-2024 History of Present illness Narrative VIRTUAL VISIT PROGRESS NOTE This is a virtual visit using addwishom Video Visit. It required patient-provider interaction for the medical decision making as documented below. I have communicated my name and active licensure. The patient's identity and physical location were verified at the time of this visit. Either the patient or their legal patient care representative has been informed of the risks [...] 16-17yo Was later diagnosed with inflammatory arthritis. [id number] Was treated with hydroxychloroquine + methotrexate While [...] chest, when she tries to sleep at [facility] she has difficulty laying down. If she [...] 6 times/year (20mg tapered down) -IM steroids [id number] q3-4 months -Prednisone 2010- 2012 - 6 week long tapers - q 2-3 months -Prednisone 2012 - 2017 - q 3-4 months -Prednisone - last Jul 2020 - 20mg taper by 5mg every 3 days -Anakinra: 07/2018 - 08/2019 (D/C due to ineffectiveness, recurrent flares and injection site reactions) Plan at [facility]: Assessment and Plan: 30 year old [...] osteoporosis - ICD9: V82.81, ICD10: Z13.820 -Prior correction steroid use along with history of osteoporosis [...] already. PAST MEDICAL HISTORY Diagnosis Date Anxiety Deangeloamarilis Vira Asthmatic bronchitis recurrent episodes since pneumonia fall and winter Depression Deangeloamarilis ChristiansonVira Epigastric abdominal pain Fibromyalgia Dr. 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[facility] Migraine with aura visual aura; diagnosed [...] arrhythmia Snoring Suicide attempt by acetaminophen overdose ([facility]) 06/2014 Syncope Vomiting PAST SURGICAL [...] COVID-19 original vaccine, age 12+ yr, monovalent (PFIZER-BIONTTechDevils - ALANIZ TOP) 09/28/2021 COVID-19 original vaccine, age 12+ yr, monovalent (PFIZER-BIONTECH - PURPLE TOP) 10/11/2020 11/01/2020 04/06/2021 COVID-19 vaccine, age 12+ yr (PFIZER-BIONTECH COMIRNATY) 06/22/2023 04/21/2024 COVID-19 vaccine, age 12+ yr, bivalent (PFIZER-BIONTTechDevils) 07/28/2022 Haemophilus influenzae b (HbOC) vaccine, 4-dose [...] reaction.Seek emergent medical care immediately after use.Disp:1 2-pakw/pet trainer 1 Each 2 naratriptan (AMERGE) 2.5 [...] which included preparing to see the patient, dxjp-dr-vexn patient care, completing clinical documentation, obtaining and/or [...] Swollen Glands: Yes documented in this encounter [facility] 07-30-2024 Note [facility] 07-27-2024 Note HNO ID: [id number] Author: CINDY MAC RD Service: ? Author Type: Registered Dietitian Type: Progress Notes Filed: 08/01/2024 10:45 Note Text: [facility] Nutrition Therapy: Virtual Consult - Initial Assessment I have communicated my name and active licensure. The patient?s identity and physical location were verified at the time of this visit. Either the patient or their legal patient care representative has been informed of the risks [...] 27, 2024 TIME: 3:16 PM PAGER: N/A [facility] 07-27-2024 History of Present illness Narrative [facility] Nutrition Therapy: Virtual Consult - Initial Assessment I have communicated my name and active licensure. The patient s identity and physical location were verified at the time of this visit. Either the patient or their legal patient care representative has been informed of the risks [...] PM PAGER: N/A documented in this encounter [facility] 07-25-2024 Telephone encounter Note Pt's appt has been changed [facility] 07-25-2024 Miscellaneous Notes Pt's appt has been changed Virtual is fine Pt has multiple messages for today. Pt asking if her appt Tuesday can be changed to virtual or does it need to be in person Please call pt [phone] documented in this encounter [facility] 07-25-2024 Telephone encounter Note Spoke with pt and relayed provider message. Pt verbalized understanding. [facility] 07-25-2024 Miscellaneous Notes Spoke with pt and [...] the antibiotics? Pt could be reached at [phone] Thank you documented in this encounter [facility] 07-25-2024 Telephone encounter Note Tried to call pt, but no answer. [facility] 07-25-2024 Telephone encounter Note Virtual is fine [facility] 07-25-2024 Telephone encounter Note Please ask her to hold off ilaris until she completes antibiotics. [facility] 07-25-2024 Telephone encounter Note Pt has multiple messages for today. [facility] 07-25-2024 Telephone encounter Note Pt asking if her appt Tuesday can be changed to virtual or does it need to be in person Please call pt [phone] [facility] 07-25-2024 Telephone encounter Note Please see pt message and advise. Thank you. [facility] 07-25-2024 Telephone encounter Note Pt states she broke a tooth and was given antibiotics Pt was scheduled to take her Ilaris 2 days ago Pt wants to know if she could take the Ilaris, while on the antibiotics? Pt could be reached at [phone] Thank you [facility] 07-19-2024 Telephone encounter Note OK [facility] 07-19-2024 Miscellaneous Notes OK Patient calls and states that she was recently prescribed antibiotic at [facility]. Patient reports that she has vaginal itching and thinks she has a yeast infection. Patient asking if provider can send in prescription for Diflucan to [facility] [place]? The patient has been identified by name [...] 2024 8:56 AM documented in this encounter [facility] 07-19-2024 Telephone encounter Note Patient calls and states that she was recently prescribed antibiotic at [facility]. Patient reports that she has vaginal itching and thinks she has a yeast infection. Patient asking if provider can send in prescription for Diflucan to [facility] [place]? The patient has been identified by [...] Mcclellan RN July 19, 2024 8:56 AM [facility] 07-11-2024 Note [facility] 07-11-2024 History of Present illness Narrative This note was created using [employer]. Subjective Liliam Thompson is a 33 year [...] chills or myalgia. Patient has been taking myyj-pyi-cogcflc medications with no improvement in her symptoms. [...] IMPRESSION: Acute Sinusitis documented in this encounter [facility] 07-04-2024 Instructions Moon Encinas, MEDICAL STAFF SERVICES MANAGER.[facility] - 07/04/2024 3:27 PM EST 1. Start [...] sooner if worsening documented in this encounter [facility] 07-04-2024 Note [facility] 07-04-2024 History of Present illness Narrative CC: [...] abdominal pain Fibromyalgia Dr. 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[facility] Migraine with aura visual aura; diagnosed with [...] arrhythmia Snoring Suicide attempt by acetaminophen overdose ([facility]) 06/2014 Syncope Vomiting PAST SURGICAL [...] reaction.Seek emergent medical care immediately after use.Disp:1 2-pakw/pet trainer naratriptan (AMERGE) 2.5 mg tablet Take [...] Patient agreeable to treatment plan. Moon Encinas APRN.GRAIN DRIER documented in this encounter [facility] 07-02-2024 Note [facility] 06-14-2024 Telephone encounter Note Spoke with pt and relayed provider message. Pt verbalized understanding. [facility] 06-14-2024 Miscellaneous Notes Spoke with pt and relayed provider message. Pt verbalized understanding. Addended by: SILVIA TUCKRE on: 06/14/2024 02:28 PM Modules accepted: Orders [...] 06/06/2024 that ties to this message. Pharmacy: [id number] [place] [address] - [address] [phone] [facility] [address] Advised pt if sxs worsen to go [...] her neck and armpit. Patient's phone number: [phone] documented in this encounter [facility] 06-14-2024 Note Addended by: SILVIA ISLAS on: 06/14/2024 02:28 PM Modules accepted: Orders [facility] 06-14-2024 Telephone encounter Note Let's do another course of steroid Dosepak. She would need urgent care/ER evaluation if still does not get better after the second round. [facility] 06-14-2024 Telephone encounter Note Spoke with pt. [...] 06/06/2024 that ties to this message. Pharmacy: [id number] [place] [address] - [address] [phone] [facility] [address] Advised pt if sxs worsen to go to ER for further evaluation. Please advise. Thank you. [facility] 06-14-2024 Telephone encounter Note Patient stated that she finished her Medrol Dose Pack yesterday but has been experiencing a resurgence of symptoms for the past few days with them being worse today. Patient stated that she is experiencing joint pain, fevers, and swollen glands in her neck and armpit. Patient's phone number: [phone] [facility] 06-08-2024 Note [facility] 06-08-2024 History of Present illness Narrative AMBULATORY TELEPHONE VISIT Liliam Thompson has consented to this telephone encounter. Persons Present: patient Chief Complaint/Reason: ER follow up chest pain HPI: Presents for ER follow up visit. She was seen at [facility] June 07, 2024 with report of chest [...] the following: I spoke with Bina (see BitWall message). She reports sx began Tuesday of [...] Went to the ER last night in [place] for this. They ruled out PE and ID. CXR was normal, labs were ok. No [...] pleuritic discomfort. Data Reviewed: Outside chart from [facility] reviewed. EPIC chart reviewed Assessment: (M04.1) Periodic [...] not improving. Has rheumatology follow-up scheduled for July currently. Genaro Morales APRN.DAWSON Total Time Spent: 20 minutes Genaro Morales APRN.JOB DEVELOPER FOR DEAF ADULTS documented in this encounter [facility] 06-08-2024 Note [facility] 06-07-2024 Telephone encounter Note I spoke with Bina (see WeatherBugt message). She reports sx began Tuesday of [...] Went to the ER last night in [place] for this. They ruled out PE and ID. CXR was normal, labs were ok. No medications prescribed. She stopped taking colchicine d/t no insurance coverage. Still taking Ilaris, last dose taken was beginning of this month. Taking OTC ibuprofen for the pain. [facility] 06-07-2024 Miscellaneous Notes I spoke with Bina (see WeatherBugt message). She reports sx began Tuesday of [...] for this. They ruled out PE and ID. CXR was normal, labs were ok. No medications prescribed. She stopped taking colchicine d/t no insurance coverage. Still taking Ilaris, last dose taken was beginning of this month. Taking OTC ibuprofen for the pain. documented in this encounter [facility] 05-15-2024 History of Present illness Narrative [facility] [...] been reviewed prior to dispensing the medication. Personal Financial Representative Assessment Patient confirmed: Yes Med/dose confirmed: Yes Supplies needed: No supplies needed Missed doses: No Estimated days supply on hand: 0 Next cycle/dose due: (ND ~05/20-05/24) Copay amount: 0 Payment confirmed: Yes Delivery method: FedEx Signature required: Waived on patient request Delivery address: [address] [place] [address] [place] [address] Delivery date: 05/17/24 Questions or concerns for [...] reaction.Seek emergent medical care immediately after use.Disp:1 2-pakw/pet trainer naratriptan (AMERGE) 2.5 mg tablet Take [...] facility-administered medications on file prior to visit. [facility] SPECIALTY CLINICAL ASSESSMENT - INFLAMMATORY CONDITIONS V6: Assessment to use: Refill Date of influenza vaccination reminder: 04/24/2024 Date of most recent vaccination assessment: 04/24/2024 Treatment Plan Information: Ilaris Inject 150mg (1 vial) subcutaneously every 4 weeks. Est. Tx Plan Start Date: No information available Estimated Start Date Info: Established on therapy Est. Estimated Treatment Duration: Until lack of efficacy Ronnie Yoon ([facility]) [facility] FAX: documented in this encounter [facility] 05-15-2024 Note [facility] 05-14-2024 Instructions Rossy Cleveland, GUEVARA - 05/14/2024 10:05 AM EDT [...] instead of CIB documented in this encounter [facility] 05-14-2024 Note [facility] 05-14-2024 History of Present illness Narrative [facility] Nutrition Therapy: Virtual Consult - Initial Assessment I have communicated my name and active licensure. The patient s identity and physical location were verified at the time of this visit. Either the patient or their legal patient care representative has been informed of the risks [...] TIME: 9:34 AM documented in this encounter [facility] 05-08-2024 Telephone encounter Note Order has been faxed to [facility] as instructed [facility] 05-08-2024 Miscellaneous Notes Order has been faxed to [facility] as instructed OK, printed, resend. Patient calls and states that Rollator prescription needs to be for an adjustable Rollator. Please send updated order to [facility]. Please review and advise, Patsy Mcclellan RN documented in this encounter [facility] 05-08-2024 Telephone encounter Note OK, printed, resend. [facility] 05-04-2024 Telephone encounter Note Patient calls and states that Rollator prescription needs to be for an adjustable Rollator. Please send updated order to [facility]. Please review and advise, Patsy Mcclellan RN [facility] 04-30-2024 Telephone encounter Note Order and pertinent information faxed to [facility]. Yana Cruz LPN [facility] 04-30-2024 Miscellaneous Notes [facility] Yana Cruz LPN Patient is requesting her rollator order be sent to [facility] in [place], please review and advise. La Nena Lui April 30, 2024 1:24 PM documented in this encounter [facility] 04-30-2024 Telephone encounter Note Patient is requesting her rollator order be sent to [facility] in [place], please review and advise. La Nena Lui April 30, 2024 1:24 PM [facility] 04-30-2024 Bobbi Carcamo Faustina D, MD - 04/30/2024 12:53 PM EDT -I [...] will be electronically signed and available in BitWall for you to access. - If physical therapy is required by your insurance before obtaining the rollator, please let us know your preference for a [facility] location. - Please let us know if there is any additional paperwork that needs to be signed for your ADA request. documented in this encounter [facility] 04-30-2024 History of Present illness Narrative VIRTUAL VISIT PROGRESS NOTE This is a virtual visit using BitWall Zoom Video Visit. It required patient-provider interaction for the medical decision making as documented below. I have communicated my name and active licensure. The patient's identity and physical location were verified at the time of this visit. Either the patient or their legal patient care representative has been informed of the risks [...] Dr. 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 @[facility] Migraine with aura visual aura; diagnosed [...] arrhythmia Snoring Suicide attempt by acetaminophen overdose ([facility]) 06/2014 Syncope Vomiting PAST SURGICAL [...] reaction.Seek emergent medical care immediately after use.Disp:1 2-pakw/pet trainer naratriptan (AMERGE) 2.5 mg tablet Take [...] Faustina Carcamo MD documented in this encounter [facility] 04-30-2024 Note [facility] 04-24-2024 Telephone encounter Note Please sign these orders, patient needs syringes to go with her new Ilaris prescription. Patient is new to [facility] not new to Ilaris. Thank you Requested Prescriptions Pending Prescriptions Disp Refills Syringe with Needle, Disp, 3 mL 18 x 1 1/2 1 Each 12 Sig: Use to draw up ilaris dose Syringe with Needle, Disp, 1 mL 27 x 1/2 1 Each 12 Sig: Use to inject subcutaneous Ilaris dose Please review and advise. Ramin Glasgow RPh [facility] 04-24-2024 Miscellaneous Notes Please sign these orders, patient needs syringes to go with her new Ilaris prescription. Patient is new to [facility] not new to Ilaris. [...] Ramin Glasgow RPh documented in this encounter [facility] 04-19-2024 History of Present illness Narrative [facility] received prescription(s) for Ilaris from Ungprasert's office. Benefits investigation was conducted, indicating that a prior authorization is required by patient's insurance plan with [place] Medicaid/[employer]. Encounter will be updated once prior authorization has been submitted by [facility]. Ronnie Yoon ([facility]) [facility] FAX: documented in this encounter [facility] 04-19-2024 Note [facility] 04-19-2024 Note HNO ID: [id number] Author: ?, ?, ? Service: ? Author Type: ? Type: Progress Notes Filed: 04/23/2024 16:13 Note Text: [facility] 04-19-2024 Note [facility] 04-18-2024 Telephone encounter Note Images from the original note were not included. 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 provider: Silvia Tucker MD Assoc. diagnoses: SO-JILLINA (systemic onset juvenile idiopathic arthritis) (HCC), Periodic [...] diagnoses: SO-JILLIAN (systemic onset juvenile idiopathic arthritis) ([facility]) VITAMIN D 25 HYDROXY [SQVITD] 07/23/24 10/22/24 03/12/24 Auth. provider: Silvia Tucker MD Assoc. diagnoses: SO-JILLIAN (systemic onset juvenile idiopathic arthritis) ([facility]) Lorie Nazario RN [facility] 04-18-2024 Miscellaneous Notes Images from the original note were not included. 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 documented in this encounter [facility] 04-17-2024 Telephone encounter Note THIS IS NOT A DUPLICATE Patient no longer using [facility]. [facility] 04-03-2024 Telephone encounter Note Pt is requesting to transfer care to you. It appears was seeing another provider from [facility]. Is this patient an appropriate fit and do we need to have the provider change the referral to psychology? Please advise. [facility] 04-03-2024 Miscellaneous Notes Pt is requesting to transfer care to you. It appears was seeing another provider from [facility]. Is this patient an appropriate fit and do we need to have the provider change the referral to psychology? Please advise. documented in this encounter [facility] 04-03-2024 Note [facility] 04-03-2024 History of Present illness Narrative SUBJECTIVE: [...] a healthy diet and stay active. Notes geologist petroleum thinks she is having a flare of [...] reaction.Seek emergent medical care immediately after use.Disp:1 2-pakw/pet trainer naratriptan (AMERGE) 2.5 mg tablet Take [...] Comment: Dr. Terrazas No date: Inflammatory polyarthritis ([facility]) No date: Joint pain Comment: Stock Dealer- Dr. Kelly @[facility] No date: Migraine with aura Comment: visual aura; diagnosed with complex migraines No date: Nausea 03/10/2016: MAXWELL (obstructive sleep apnea) age 1 1/2: PMH - PAST MEDICAL HISTORY OF Comment: febrile seizures-with varicella 6-7 months: PMH - PAST MEDICAL HISTORY OF Comment: dislocated elbow No date: PMH - PAST MEDICAL HISTORY OF Comment: menarche age 14 years 1998: PM - PAST MEDICAL HISTORY OF Comment: normal color vision 04/23/2018: POTS (postural orthostatic tachycardia syndrome) No date: Rectal bleeding No date: Sinus arrhythmia No date: Snoring 06/2014: Suicide attempt by acetaminophen overdose ([facility]) No date: Syncope No date: Vomiting Social [...] PSYCHIATRY 3 mo follow up Genaro Morales APRN.JOB DEVELOPER FOR DEAF ADULTS 6 mo follow up Faustina Carcamo MD Schedule appt with placement assistant and Dr. Tomasa Morales APRN.CNS Medical Decision Making: Problems: Moderate: 2+ stable chronic illnesses Data: Unique test result(s) reviewed: 3+ Risk: Moderate: Drug management Medical Decision Making Level: 4 - Moderate documented in this encounter [facility] 04-02-2024 History of Present illness Narrative Radiology [...] PATIENT PRESENTS WITH AN IMPLANTABLE OR ATTACHED HOUSEKEEPING CLEANER: No RADIOLOGY DEPARTMENT: General X-ray: Exam(s) Completed: Chest X-Ray PERIPHERAL IV DATA: Not applicable SIGNED BY: RT Jerry(R) April 02, 2024 1:26 PM documented in this encounter [facility] 04-02-2024 Note [facility] 04-02-2024 Telephone encounter Note I spoke with [...] steps should be regarding tx. Please advise. [facility] 04-02-2024 Miscellaneous Notes I spoke with Bina. [...] tx. Please advise. documented in this encounter [facility] 03-29-2024 Telephone encounter Note Approved until 03/27/2025 [facility] 03-29-2024 Miscellaneous Notes Approved until 03/27/2025 Form and up dated LAOVNNE faxed. Pt has a new insurance and will need a new PA on the [employer], PA started for [employer]. 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 documented in this encounter [facility] 03-29-2024 Note [facility] 03-29-2024 History of Present illness Narrative Patient [...] Meryl Zheng RN documented in this encounter [facility] 03-29-2024 Telephone encounter Note Can you please file pending HPV order. The incorrect order was filed. Thank you. Qian Estevez RN [facility] 03-29-2024 Instructions Qian Estevez RN - 03/29/2024 [...] glands, joint and muscle pain, weakness and Guillain-[place]aines[place] syndrome. documented in this encounter [facility] 03-29-2024 Miscellaneous Notes Can you please file pending HPV order. The incorrect order was filed. Thank you. Qian Estevez RN documented in this encounter [facility] 03-28-2024 Telephone encounter Note Form and up dated LAVONNE faxed. [facility] 03-27-2024 Telephone encounter Note Pt has a new insurance and will need a new PA on the [employer], [facility] 03-19-2024 Telephone encounter Note PA started for [employer]. [facility] 03-15-2024 Instructions Shellie Bentley MA - 03/15/2024 [...] your doctor's office. documented in this encounter [facility] 03-15-2024 Note [facility] 03-15-2024 History of Present illness Narrative Bina [...] Karen Jenkins MD documented in this encounter [facility] 03-12-2024 Telephone encounter Note Cameron scheduled by PSS. Maile Stacy RN [facility] 03-12-2024 Miscellaneous Notes Cameron scheduled by PSS. Maile Stacy RN Patient notified and voiced understanding of results. Patient needs to be financially cleared before scheduling. Message sent to financial counselor. Patient aware that we will call her back to schedule once cleared. Janett Heard RN Pap normal but HPV still positive, she will need a colp. Order filed. Nani Freeman APRN.CNP documented in this encounter [facility] 03-12-2024 Telephone encounter Note Patient notified and voiced understanding of results. Patient needs to be financially cleared before scheduling. Message sent to financial counselor. Patient aware that we will call her back to schedule once cleared. Janett Heard RN [facility] 03-12-2024 Telephone encounter Note Pap normal but HPV still positive, she will need a colp. Order filed. Nani Freeman APRN.CNP [facility] 03-12-2024 History of Present illness Narrative MD Liliam Lobato March 08, 2024 Referring Provider: PCP: Faustina Carcamo MD Chief Complaint: Follow up Background Rheumatologic History: Previously seen by multiple providers in our division From Dr. Lucero - Started having fevers in [place]/Senior year of high school. 16-19yo Was later diagnosed with inflammatory arthritis. [id number] Was treated with hydroxychloroquine + methotrexate While [...] chest, [facility] she has difficulty laying down. If she [...] 6 times/year (20mg tapered down) -IM steroids [id number] q3-4 months -Prednisone 2012 - 6 week long tapers - q 2-3 months -Prednisone 2012 - q 3-4 months -Prednisone - last Jul 2020 - 20mg taper by 5mg every 3 days -Anakinra: 07/2018 - 08/2019 (D/C due to ineffectiveness, recurrent flares and injection site reactions) Plan at [facility]: Assessment and Plan: 30 year old [...] osteoporosis - ICD9: V82.81, ICD10: Z13.820 -Prior intermediate designer steroid use along with history of osteoporosis [...] Dr. 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 @[facility] Migraine with aura visual aura; diagnosed [...] arrhythmia Snoring Suicide attempt by acetaminophen overdose ([facility]) 06/2014 Syncope Vomiting PAST SURGICAL [...] COVID-19 original vaccine, age 12+ yr, monovalent ([employer] - ALANIZ TOP) 09/28/2021 COVID-19 original vaccine, age 12+ yr, monovalent ([employer] - PURPLE TOP) 10/11/2020 11/01/2020 04/06/2021 COVID-19 vaccine, age 12+ yr, 2022- season ([employer]) 06/22/2023 COVID-19 vaccine, age 12+ yr, bivalent ([employer]) 07/28/2022 Haemophilus influenzae b (HbOC) vaccine, 4-dose [...] reaction.Seek emergent medical care immediately after use.Disp:1 2-pakw/pet trainer 1 Each 2 naratriptan (AMERGE) 2.5 [...] RAGWEED VERIFIED BY SKIN TESTING Physical Exam: [facility] 12/31/2021 General: Not pale, no jaundice, not [...] vitamin D deficiency. Advised her to take kkgt-tei-cogczlw vitamin D supplement 800 to 1000 units/day. Recommendations/Plan Plan discussed with patient Return Visit: Follow up Jul 30 at 10 I spent a total of 40 minutes on the date of the service which included preparing to see the patient, jujq-we-cerm patient care, completing clinical documentation, obtaining and/or [...] Swollen Glands: Yes documented in this encounter [facility] 03-12-2024 Note [facility] 03-12-2024 Instructions Silvia Tucker MD - 03/12/2024 10:17 AM EDT Tell me DAR when Medicaid is approved Follow up Jul 30 at 10 Labs 1 week before documented in this encounter [facility] 02-27-2024 Note [facility] 02-27-2024 History of Present illness Narrative Bina [...] L0 SAB0 IAB0 Ectopic0 Multiple0 Live Births0 Canoe Maker History LMP: 12/31/2021, IUD Age at Menarche: Age at First : Age at Menopause: Canoe Maker History Comments: Sexual Activity: Yes; Male; mirena inserted 11/2021 Contraception: I.U.D., Condom PAST MEDICAL HISTORY Diagnosis Date Anxiety Angeli Constantino Asthmatic bronchitis recurrent episodes since pneumonia fall and winter Depression Angeli Constantino Epigastric abdominal pain Fibromyalgia Dr. 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 @[facility] Migraine with aura visual aura; diagnosed [...] arrhythmia Snoring Suicide attempt by acetaminophen overdose ([facility]) 06/2014 Syncope Vomiting PAST SURGICAL [...] external genitalia normal, normal Bartholin's glands, urethra, Tiawah's glands, no vulvar lesions, no cervical lesions, [...] Ayaan Rowley APRN.CNM documented in this encounter [facility] 02-13-2024 Telephone encounter Note Latex, banana and [...] fresh fruits if laboratory evaluation is negative.) [facility] 02-13-2024 Miscellaneous Notes Latex, banana and kiw [...] evaluation is negative.) documented in this encounter [facility] 01-17-2024 History of Present illness Narrative Liliam [...] L0 SAB0 IAB0 Ectopic0 Multiple0 Live Births0 Canoe Maker History LMP: 12/31/2021, IUD Age at Menarche: Age at First : Age at Menopause: Canoe Maker History Comments: Sexual Activity: Yes; Male; mirena inserted 11/2021 Contraception: I.U.D., Condom PAST MEDICAL HISTORY Diagnosis Date Anxiety Kaitelyn Vira Asthmatic bronchitis recurrent episodes since pneumonia fall and winter of 2011 Depression Angeli Constantino Epigastric abdominal pain Fibromyalgia Dr. 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 @[facility] Migraine with aura visual aura; diagnosed [...] arrhythmia Snoring Suicide attempt by acetaminophen overdose ([facility]) 06/2014 Syncope Vomiting PAST SURGICAL [...] reaction.Seek emergent medical care immediately after use.Disp:1 2-pakw/pet trainer naratriptan (AMERGE) 2.5 mg tablet Take [...] external genitalia normal, normal Bartholin's glands, urethra, Tiawah's glands, no vulvar lesions, no cervical lesions, [...] Karen Jenkins MD documented in this encounter [facility] 01-02-2024 History of Present illness Narrative This note was created using [employer]. Subjective Liliam Thompson is a 33 year [...] Dr. 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 @[facility] Migraine with aura visual aura; diagnosed [...] arrhythmia Snoring Suicide attempt by acetaminophen overdose ([facility]) 06/2014 Syncope Vomiting Current Outpatient Medications Medication Sig EPINEPHrine (EPIPEN 2-ISIDRO) 0.3 mg/0.3 mL auto-injector Inject 0.3 mL intramuscularly as needed. For allergic reaction.Seek emergent medical care immediately after use.Disp:1 2-pakw/pet trainer naratriptan (AMERGE) 2.5 mg tablet Take [...] in adult, unspecified whether serious comorbidity present ([facility]) E66.01 Z68.43 Weight trending down. [...] the date of the service which included yzit-oa-xtee patient care, completing clinical documentation, obtaining and/or reviewing separately obtained history, performing a medically appropriate examination, counseling and educating the patient/family/caregiver, and ordering medications, tests, or procedures. Faustina Carcamo MD documented in this encounter [facility] 12-14-2023 History of Present illness Narrative This note was created using [employer]. Subjective Liliam Thompson is a 33 year [...] MG-POTASSIUM CLAVULANATE 125 MG TABLET Anton Landin APRN.LIZZIE documented in this encounter [facility] 12-08-2023 Nurse Note Patient instructed on proper use of epi pen administration in case of systemic reaction after latex reaction. Instructed patient to seek medical attention after use. Patient demonstrated proper technique for using epi pen. [facility] 12-08-2023 Nurse Note Patient instructed on proper [...] over an hour. documented in this encounter [facility] 12-08-2023 Nurse Note Patient her for follow [...] barky cough lasted for over an hour. [facility] 12-08-2023 History of Present illness Narrative ASSESSMENT/PLAN: [...] daily as needed. She may also use ncpx-byx-pewilfk Patanol, Pataday or Zaditor eyedrops as needed. [...] or problems arise. Isela Street MD Liliam Thompson is a 33 year [...] recent issues with urticaria. Works in a [employer] for [employer] (Works with [employer]) Currently takes atenolol [...] Dr. 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 @[facility] Migraine with aura visual aura; diagnosed [...] arrhythmia Snoring Suicide attempt by acetaminophen overdose ([facility]) 06/2014 Syncope Vomiting MEDICATIONS: naratriptan [...] no. 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 Stopped 03/2013. [email or web address] ENVIRONMENTAL HISTORY: Lives in a house Age of home: 50 years Heating: gas Woodburning fireplace in the home: no Air conditioning: Central air Basement: Damp basement Enoch: Cynt-ft-cgem carpeting Dust mite controls: Dust mite controls [...] tests were negative documented in this encounter [facility] 10-27-2023 Instructions Qian Pena APRN.CNP - 10/27/2023 9:52 AM EDT PLAN AND RECOMMENDATIONS: Continue the same medications Follow up with Dr Zambrano 6 months CONTACT INFORMATION: Qian Pena APRN.LIZZIE Cardiology Nurse Practitioner Section of Regional Cardiology [facility] Dept of Cardiovascular Medicine [facility] [address] [place] [address] Office Office documented in this encounter [facility] 10-27-2023 History of Present illness Narrative Images from the original note were not included. [facility] Department of Cardiovascular Medicine SECTION OF CLINICAL CARDIOLOGY OUTPATIENT VISIT DATE October 27, 2023 OUTPATIENT VISIT TYPE ESTABLISHED PRIMARY CARE PHYSICIAN: Faustina Carcamo [address] [place] [address] REFERRING PHYSICIAN: No referring provider defined for [...] Subjective PAST MEDICAL HISTORY Diagnosis Date Anxiety Melbashannanamarilis Constantino Asthmatic bronchitis recurrent episodes since pneumonia fall and winter Depression Angeli Constantino Epigastric abdominal pain Fibromyalgia Dr. 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 @[facility] Migraine with aura visual aura; diagnosed [...] arrhythmia Snoring Suicide attempt by acetaminophen overdose ([facility]) 06/2014 Syncope Vomiting PAST SURGICAL [...] Cardiology Nurse Practitioner Section of Regional Cardiology [facility] Dept of Cardiovascular Medicine [facility] [place] [address] [place] [address] Office Office documented in this encounter [facility] 10-24-2023 History of Present illness Narrative VIRTUAL VISIT PROGRESS NOTE This is a virtual visit using [employer] Video Visit. It required patient-provider interaction for the medical decision making as documented below. I have communicated my name and active licensure. The patient's identity and physical location were verified at the time of this visit. Either the patient or their legal patient care representative has been informed of the risks [...] through box of condoms for work. Saw nursing student last time in 2020. Has appointment end [...] and no more refills [place] 2023. Continues to follow up with neurologist. Noted Baclofen added in case trigeminal neuralgia issue. HISTORY REVIEWED (electronic chart updated): PAST MEDICAL HISTORY Diagnosis Date Anxiety Deangeloamarilis Vira Asthmatic bronchitis recurrent episodes since pneumonia fall and winter Depression Deangeloamarilis Vira Epigastric abdominal pain Fibromyalgia Dr. 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 @[facility] Migraine with aura visual aura; diagnosed [...] arrhythmia Snoring Suicide attempt by acetaminophen overdose ([facility]) 06/2014 Syncope Vomiting PAST SURGICAL [...] Abs Lymph 1.00 - 4.00 k/uL 2.83 Todd% % 9.7 Abs Todd <0.87 k/uL 0.67 Eosin% % 1.9 Abs [...] breathing and irritates eyes. Will be seeing nursing student fur further evaluation. Given letter for work [...] Faustina Carcamo MD documented in this encounter [facility] 10-14-2023 History of Present illness Narrative SUBJECTIVE: [...] gauge x 1/2 ndle USE DIRECTED WITH TEJAS (Patient not taking: Reported on 10/14/2023) Needle, Disp, 25 G (BD DISPOSABLE NEEDLES) 25 gauge x 5/8 ndle 1 Syringe every 4 weeks. (Patient not taking: Reported on 10/14/2023) PAST MEDICAL HISTORY Diagnosis Date Anxiety Angeli Constantino Asthmatic bronchitis recurrent episodes since pneumonia fall and winter Depression Angeli Constantino Epigastric abdominal pain Fibromyalgia Dr. 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 @[facility] Migraine with aura visual aura; diagnosed [...] arrhythmia Snoring Suicide attempt by acetaminophen overdose ([facility]) 06/2014 Syncope Vomiting Social History [...] not available then 6 mo MD Genaro Rudolph, MEDICAL STAFF SERVICES MANAGER.JOB DEVELOPER FOR DEAF ADULTS Medical Decision Making: Problems: Low: Acute, uncomplicated illness or injury Data: Unique test(s) ordered: 3+ Risk: Low: Low risk from testing/treatment Medical Decision Making Level: 3 - Low documented in this encounter [facility] 10-14-2023 History of Present illness Narrative Radiology [...] PATIENT PRESENTS WITH AN IMPLANTABLE OR ATTACHED HOUSEKEEPING CLEANER: No RADIOLOGY DEPARTMENT: General X-ray: Exam(s) Completed: Upper Extremity X-Ray(s): Shoulder, AP / TRUE AP left PERIPHERAL IV DATA: Not applicable SIGNED BY: RT Elan(R) October 14, 2023 11:48 AM documented in this encounter [facility] 10-14-2023 Miscellaneous Notes No concerning findings documented in this encounter [facility] 10-14-2023 Progress note Formatting of t his note might be different from the original. No concerning findings [facility] 09-23-2023 Miscellaneous Notes Please approve this medication, medication sent to the wrong pharmacy. documented in this encounter [facility] 08-21-2023 Instructions Rob Toledo PA-C - 08/21/2023 [...] taking this medication. documented in this encounter [facility] 08-19-2023 History of Present illness Narrative Head[facility] - Follow up Virtual Visit This visit was conducted as a virtual visit, with patient's permission, via Zoom. Patient location - [place], [place] Liliam Thompson was identified by name [...] visit. Either the patient or their legal patient care representative has been informed of the risks [...] with Dr. 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 Looking to go to [employer]. Did well on the LAST but taking [...] Preventative: Zonegran 300 mg, Prozac, atenbolol Abortive: Yolis Trigeminal Neuralgia HPI Onset: - This morning [...] abdominal pain Fibromyalgia Dr. 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 Migraine with aura visual aura; diagnosed with [...] arrhythmia Snoring Suicide attempt by acetaminophen overdose ([facility]) 06/2014 Syncope Vomiting PAST SURGICAL [...] spontaneous and fluent without dysarthria. Short and intermediate designer memory, cognition and general fund of knowledge [...] 45 minutes Rob Toledo PA-C Headache Section [facility] August 19, 2023 documented in this encounter [facility] 07-26-2023 History of Present illness Narrative Liliam Thompson is a 32 year old female who presented for guide changer ultrasound today. Encounter Diagnosis ICD-10-CM 1. Pelvic pain in female R10.2 Please see report under imaging tab. Shannan Ballesteros MD July 26, 2023 9:13 AM documented in this encounter [facility] 07-22-2023 History of Present illness Narrative Liliam [...] L0 SAB0 IAB0 Ectopic0 Multiple0 Live Births0 Canoe Maker History LMP: 12/31/2021, IUD Age at Menarche: Age at First : Age at Menopause: Canoe Maker History Comments: Sexual Activity: Yes; Male; mirena inserted 11/2021 Contraception: I.U.D., Condom PAST MEDICAL HISTORY Diagnosis Date Anxiety Angeli Constantino Asthmatic bronchitis recurrent episodes since pneumonia fall and winter Depression Angeli Constantino Epigastric abdominal pain Fibromyalgia Dr. 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[facility] Migraine with aura visual aura; diagnosed [...] arrhythmia Snoring Suicide attempt by acetaminophen overdose ([facility]) 06/2014 Syncope Vomiting PAST SURGICAL [...] external genitalia normal, normal Bartholin's glands, urethra, Tiawah's glands, no vulvar lesions, no cervical lesions, good vaginal support, physiologic discharge present, normal appearing perineal body and perianal region BIMANUAL: uterus normal size, shape and consistency, no adnexal masses, and non-tender NEURO: alert and oriented x3,exam grossly non-focal EXTREMITIES: normal ASSESSMENT AND PLAN: Encounter Diagnosis ICD-10-CM 1. Pelvic pain in female R10.2 PELVIC US WHI Joe Contreras MD Social Media Director offered: Patient declines. Monica Hernandez, RN documented in this encounter [facility] 07-06-2023 Miscellaneous Notes Looks like her standing orders are for every 3 months? She will need orders for 2 more months prior to every 3 months? documented in this encounter [facility] 06-23-2023 Miscellaneous Notes Spoke with pt and [...] patient. Beena Olsen documented in this encounter [facility] 06-21-2023 Miscellaneous Notes Spoke with [facility], the pharmacist will send me the prior [...] her Eletriptan prior auth, I will call [facility] after 9:00 am to ask to send us the prior auth letter by fax. Number to return call [phone]. Stefani Rangel documented in this encounter [facility] 06-06-2023 History of Present illness Narrative Images from the original note were not included. This note was created using [employer]. Subjective Liliam Thompson is a 32 year [...] Patsy Mobley PA-C documented in this encounter [facility] 06-06-2023 History of Present illness Narrative Radiology [...] 2023 9:07 AM documented in this encounter [facility] 05-28-2023 Note HNO ID: [id number] Author: Note, Interface Service: ? Author Type: ? Type: Progress Notes Filed: 05/28/2023 3:59 AM Note Text: Epic Scheduled Downtime: 05/28/2023 1:00:00 AM to 05/28/2023 1:28:00 AM [facility] 05-25-2023 History of Present illness Narrative [...] Gonzalez Reyes PA-C documented in this encounter [facility] 05-20-2023 Instructions Genaro Morales APRN.CNS - 05/20/2023 8:18 AM EDT For POTS [...] to insurance not covering. Take Toradol tablets ysioij-wlh-cveou for the next 2 to 5 days as needed for headache then discontinue. Take with food. You could additionally add ehrb-qeb-tgywepz Pepcid or omeprazole if needed for GI upset. documented in this encounter [facility] 05-20-2023 History of Present illness Narrative SUBJECTIVE: [...] to Relpax from [place]. She presented to [facility] yesterday with report of palpitations and [...] exertion. Notes pre-syncopal sensation, no syncope. Current search marketing coordinator:no current. Seen in neurology 2018 regarding POTS. [...] abdominal pain Fibromyalgia Dr. 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[facility] Migraine with aura visual aura; diagnosed [...] arrhythmia Snoring Suicide attempt by acetaminophen overdose ([facility]) 06/2014 Syncope Vomiting Social History [...] to insurance not covering. Take Toradol tablets mekpec-azq-ltdbx for the next 2 to 5 days as needed for headache then discontinue. Take with food. You could additionally add pvff-zrs-hdrxdee Pepcid or omeprazole if needed for GI upset. Genaro Morales APRN.JOB DEVELOPER FOR DEAF ADULTS Medical Decision Making: Problems: Moderate: 1+ chronic illnesses with change Data: Unique test result(s) reviewed: 3+ Unique test(s) ordered: 3+ Risk: Moderate: Drug management Medical Decision Making Level: 4 - Moderate documented in this encounter [facility] 05-19-2023 Miscellaneous Notes Patient notified of providers [...] today, if possible. Pt was seen at [facility] last night due to palpitations. BP [...] possible. Thank you. documented in this encounter [facility] 04-25-2023 History of Present illness Narrative I have communicated my name and active licensure. The patient's identity and physical location were verified at the time of this visit. Either the patient or their legal patient care representative has been informed of the risks and benefits of -- and alternatives to -- treatment through a remote evaluation and consents to proceed with the evaluation remotely. 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 Looking to go [...] month? : 7 documented in this encounter [facility] 04-21-2023 Miscellaneous Notes Physician: Dr. Lyons Call from patient requesting refill. Please E-Scribe Last OV: 09/01/2022 Future OV: 04/25/2023 Requested Prescriptions Pending Prescriptions Disp Refills naratriptan (AMERGE) 2.5 mg tablet 9 tablet 11 Sig: Take 1 tablet by mouth as needed for migraine headache (see administration instructions). 2.5 mg at onset of headache, may repeat in 4 hours if needed Pharmacy Name: [facility] Pharmacy Stefani Rangel documented in this encounter [facility] 04-18-2023 Instructions Trudi Mcneal, MEDICAL STAFF SERVICES MANAGER.GRAIN DRIER - 04/18/2023 2:10 PM EDT Stay home [...] the counter medications as directed by the senior occupational therapist Follow up with your doctor as needed. ER if chest pain, difficulty breathing, shortness of breath, or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 Date Asthmatic bronchitis 03/10/2021 Overview: recurrent episodes since pneumonia fall and winter of 2011 Inflammatory polyarthritis 11/15 documented as of this encounter (statuses as of 02/07/2023) [address]27-2021 History of Past illness Narrative* Problem Noted Date Resolved Date Asthmatic bronchitis 03/10/2021 Overview: recurrent episodes since pneumonia fall and winter of 2011 Inflammatory polyarthritis 11/15 documented as of this encounter (statuses as of 02/17/2023) [address]27-2021 History of Past illness Narrative* Problem Noted Date Resolved Date Asthmatic bronchitis 03/10/2021 Overview: recurrent episodes since pneumonia fall and winter of 2011 Inflammatory polyarthritis 11/15 documented as of this encounter (statuses as of 02/17/2023) [address]27-2021 History of Past illness Narrative* Problem Noted Date Diagnosed Date Resolved Date Asthmatic bronchitis 021 Overview: recurrent episodes since pneumonia fall and winter of 2011 Inflammatory polyarthritis 0 11/15/2013 documented as of this encounter (statuses as of 02/26/2023) [address]27-2021 History of Past illness Narrative* Problem Noted Date Diagnosed Date Resolved Date Asthmatic bronchitis Overview: recurrent episodes since pneumonia fall and winter of 2011 Inflammatory polyarthritis 0 11/15/2013 documented as of this encounter (statuses as of 03/03/2023) [address]27-2021 History of Past illness Narrative* Problem Noted Date Diagnosed Date Resolved Date Asthmatic bronchitis Overview: recurrent episodes since pneumonia fall and winter of 2011 Inflammatory polyarthritis 0 11/15/2013 documented as of this encounter (statuses as of 03/17/2023) [address]27-2021 History of Past illness Narrative* Problem Noted Date Diagnosed Date Resolved Date Asthmatic bronchitis Overview: recurrent episodes since pneumonia fall and winter of 2011 Inflammatory polyarthritis 0 11/15/2013 documented as of this encounter (statuses as of 04/06/2023) [address]27-2021 History of Past illness Narrative* Problem Noted Date Diagnosed Date Resolved Date Asthmatic bronchitis Overview: recurrent episodes since pneumonia fall and winter of 2011 Inflammatory polyarthritis 0 11/15/2013 documented as of this encounter (statuses as of 04/06/2023) [address]27-2021 History of Past illness Narrative* Problem Noted Date Diagnosed Date Resolved Date Asthmatic bronchitis Overview: recurrent episodes since pneumonia fall and winter of 2011 Inflammatory polyarthritis 0 11/15/2013 documented as of this encounter (statuses as of 04/07/2023) [address]27-2021 History of Past illness Narrative* Problem Noted Date Diagnosed Date Resolved Date Asthmatic bronchitis Overview: recurrent episodes since pneumonia fall and winter of 2011 Inflammatory polyarthritis 0 11/15/2013 documented as of this encounter (statuses as of 04/12/2023) [address]27-2021 History of Past illness Narrative* Problem Noted Date Diagnosed Date Resolved Date Asthmatic bronchitis Overview: recurrent episodes since pneumonia fall and winter of 2011 Inflammatory polyarthritis 0 11/15/2013 documented as of this encounter (statuses as of 04/13/2023) [facility]07-27-2021 History of Past illness Narrative* Problem Noted Date Diagnosed Date Resolved Date Asthmatic bronchitis Overview: recurrent episodes since pneumonia fall and winter of 2011 Inflammatory polyarthritis 0 11/15/2013 documented as of this encounter (statuses as of 04/18/2023) [address]27-2021 History of Past illness Narrative* Problem Noted Date Diagnosed Date Resolved Date Asthmatic bronchitis Overview: recurrent episodes since pneumonia fall and winter of 2011 Inflammatory polyarthritis 0 11/15/2013 documented as of this encounter (statuses as of 04/18/2023) [address]27-2021 History of Past illness Narrative* Problem Noted Date Diagnosed Date Resolved Date Asthmatic bronchitis Overview: recurrent episodes since pneumonia fall and winter of 2011 Inflammatory polyarthritis 0 11/15/2013 documented as of this encounter (statuses as of 04/22/2023) [address]27-2021 History of Past illness Narrative* Problem Noted Date Diagnosed Date Resolved Date Asthmatic bronchitis Overview: recurrent episodes since pneumonia fall and winter of 2011 Inflammatory polyarthritis 0 11/15/2013 documented as of this encounter (statuses as of 04/26/2023) [address]27-2021 History of Past illness Narrative* Problem Noted Date Diagnosed Date Resolved Date Asthmatic bronchitis Overview: recurrent episodes since pneumonia fall and winter of 2011 Inflammatory polyarthritis 0 11/15/2013 documented as of this encounter (statuses as of 05/21/2023) [address]27-2021 History of Past illness Narrative* Problem Noted Date Diagnosed Date Resolved Date Asthmatic bronchitis Overview: recurrent episodes since pneumonia fall and winter of 2011 Inflammatory polyarthritis 0 11/15/2013 documented as of this encounter (statuses as of 05/21/2023) [address]27-2021 History of Past illness Narrative* Problem Noted Date Diagnosed Date Resolved Date Asthmatic bronchitis Overview: recurrent episodes since pneumonia fall and winter of 2011 Inflammatory polyarthritis 0 11/15/2013 documented as of this encounter (statuses as of 05/25/2023) [address]27-2021 History of Past illness Narrative* Problem Noted Date Diagnosed Date Resolved Date Asthmatic bronchitis Overview: recurrent episodes since pneumonia fall and winter of 2011 Inflammatory polyarthritis 0 11/15/2013 documented as of this encounter (statuses as of 06/06/2023) [address]27-2021 History of Past illness Narrative* Problem Noted Date Diagnosed Date Resolved Date Asthmatic bronchitis Overview: recurrent episodes since pneumonia fall and winter of 2011 Inflammatory polyarthritis 0 11/15/2013 documented as of this encounter (statuses as of 06/06/2023) [address]27-2021 History of Past illness Narrative* Problem Noted Date Diagnosed Date Resolved Date Asthmatic bronchitis Overview: recurrent episodes since pneumonia fall and winter of 2011 Inflammatory polyarthritis 0 11/15/2013 documented as of this encounter (statuses as of 06/19/2023) [address]27-2021 History of Past illness Narrative* Problem Noted Date Diagnosed Date Resolved Date Asthmatic bronchitis Overview: recurrent episodes since pneumonia fall and winter of 2011 Inflammatory polyarthritis 0 11/15/2013 documented as of this encounter (statuses as of 06/22/2023) [address]27-2021 History of Past illness Narrative* Problem Noted Date Diagnosed Date Resolved Date Asthmatic bronchitis Overview: recurrent episodes since pneumonia fall and winter of 2011 Inflammatory polyarthritis 0 11/15/2013 documented as of this encounter (statuses as of 06/24/2023) [address]27-2021 History of Past illness Narrative* Problem Noted Date Diagnosed Date Resolved Date Asthmatic bronchitis Overview: recurrent episodes since pneumonia fall and winter of 2011 Inflammatory polyarthritis 0 11/15/2013 documented as of this encounter (statuses as of 07/04/2023) [address]27-2021 History of Past illness Narrative* Problem Noted Date Diagnosed Date Resolved Date Asthmatic bronchitis Overview: recurrent episodes since pneumonia fall and winter of 2011 Inflammatory polyarthritis 0 11/15/2013 documented as of this encounter (statuses as of 07/06/2023) [address]27-2021 History of Past illness Narrative* Problem Noted Date Diagnosed Date Resolved Date Asthmatic bronchitis Overview: recurrent episodes since pneumonia fall and winter of 2011 Inflammatory polyarthritis 0 11/15/2013 documented as of this encounter (statuses as of 07/22/2023) [address]27-2021 History of Past illness Narrative* Problem Noted Date Diagnosed Date Resolved Date Asthmatic bronchitis Overview: recurrent episodes since pneumonia fall and winter of 2011 Inflammatory polyarthritis 0 11/15/2013 documented as of this encounter (statuses as of 07/26/2023) [address]27-2021 History of Past illness Narrative* Problem Noted Date Diagnosed Date Resolved Date Asthmatic bronchitis Overview: recurrent episodes since pneumonia fall and winter of 2011 Inflammatory polyarthritis 0 11/15/2013 documented as of this encounter (statuses as of 07/29/2023) [address]27-2021 History of Past illness Narrative* Problem Noted Date Diagnosed Date Resolved Date Asthmatic bronchitis Overview: recurrent episodes since pneumonia fall and winter of 2011 Inflammatory polyarthritis 0 11/15/2013 documented as of this encounter (statuses as of 08/21/2023) [facility]07-27-2021 History of Past illness Narrative* Problem Noted Date Diagnosed Date Resolved Date Asthmatic bronchitis 021 Overview: recurrent episodes since pneumonia fall and winter of 2011 Inflammatory polyarthritis 0 11/15/2013 documented as of this encounter (statuses as of 09/23/2023) [facility]-27-2021 History of Past illness Narrative* Problem Noted Date Diagnosed Date Resolved Date Asthmatic bronchitis 021 Overview: recurrent episodes since pneumonia fall and winter of 2011 Inflammatory polyarthritis 0 11/15/2013 documented as of this encounter (statuses as of 10/14/2023) [facility]-27-2021 History of Past illness Narrative* Problem Noted Date Diagnosed Date Resolved Date Asthmatic bronchitis 021 Overview: recurrent episodes since pneumonia fall and winter of 2011 Inflammatory polyarthritis 0 11/15/2013 documented as of this encounter (statuses as of 10/25/2023) [facility]-27-2021 History of Past illness Narrative* Problem Noted Date Diagnosed Date Resolved Date Asthmatic bronchitis 021 Overview: recurrent episodes since pneumonia fall and winter of 2011 Inflammatory polyarthritis 0 11/15/2013 documented as of this encounter (statuses as of 10/28/2023) [facility]-26-2021 History of Present illness Narrative* Katelin King, [...] 07, 2021 8:16 AM [facility] of Present illness Narrative* Kristy Alanis (Ct), JACKIE - 07/17/2020 10:15 AM EST Radiology Service [...] 17, 2020 10:24 AM [facility] History of Present illness Narrative* Katelin King (Rt) Tech - 06/05/2020 12:30 PM EDT Radiology [...] 2020 12:35 [facility] Intractable chronic migraine without aura and without status migrainosus- Primary Chronic migraine without aura, with intractable migraine, so stated, without mention of status migrainosus [facility] [place] [facility] Diagnosis Neoplasm of uncertain behavior of skin- Primary Compound nevus of chest Benign neoplasm of skin of trunk, except scrotum [facility] [place] [facility]* Diagnosis Obsessive-compulsive disorder, unspecified type [facility] [place] [facility]* Diagnosis Encounter for IUD insertion- Primary Encounter for insertion of intrauterine contraceptive device [facility] [place] [facility]* Diagnosis Left ankle strain, sequela- Primary Chronic pain of left ankle History of influenza Personal history of other infectious and parasitic disease [facility] [place] [facility]* Diagnosis COVID-19- Primary POTS (postural orthostatic tachycardia syndrome) Tachycardia, unspecified Chest wall discomfort Painful respiration [facility] [place] [facility]* 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 [facility] [place] [facility]* Diagnosis Surveillance of previously prescribed intrauterine contraceptive device- Primary Intrauterine contraceptive device threads lost, initial encounter [facility] [place] [facility]* Diagnosis Inappropriate sinus node tachycardia Other specified cardiac dysrhythmias [facility] [place] [facility]* Diagnosis Intrauterine contraceptive device threads lost, initial encounter [facility] [place] [facility]* 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 [facility] [place] [facility]* 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 [facility] [place] [facility]* Diagnosis Moderate anxiety- Primary Moderate episode of recurrent major depressive disorder (HCC) [facility] [place] [facility]* Diagnosis Migraine without status migrainosus, not intractable, unspecified migraine type- Primary IUD check up Surveillance of previously prescribed intrauterine contraceptive device Morbid obesity Periodic fever syndrome Familial Mediterranean fever [facility] [place] [facility] Diagnosis Closed head injury, initial encounter- Primary Contusion of scalp, initial encounter Abrasion Abrasion or friction burn of other, multiple, and unspecified sites, without mention of infection Fall, initial encounter Injury of right ankle, initial encounter Sprain of right ankle, unspecified ligament, initial encounter Injury of right ankle, initial encounter documented in this encounter [facility] note* Diagnosis Concussion without loss of consciousness, subsequent encounter- Primary documented in this encounter [facility]* Diagnosis POTS (postural orthostatic tachycardia syndrome)- Primary Tachycardia, unspecified Pleuritic chest pain Painful respiration 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 Cough, unspecified type Class 3 severe obesity due to excess calories with body mass index (BMI) of 50.0 to 59.9 in adult, unspecified whether serious comorbidity present (HCC) documented in this encounter [facility]* Diagnosis Acute cough- Primary Shortness of breath Wheezing documented in this encounter [facility] note* 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 documented in this encounter [facility] note* Diagnosis RLQ abdominal pain- Primary Abdominal pain, right lower quadrant documented in this encounter [facility] note* Diagnosis Pelvic pain in female- Primary Unspecified symptom associated with female genital organs Screen for STD (sexually transmitted disease) Screening examination for venereal disease Surveillance of previously prescribed intrauterine contraceptive device documented [facility]* Diagnosis Chronic migraine without aura, with intractable migraine, so stated, with status migrainosus- Primary documented in this encounter [facility] note* Diagnosis Obsessive-compulsive disorder, unspecified type- Primary PTSD (post-traumatic stress disorder) Posttraumatic stress disorder Recurrent major depressive disorder, in partial remission (HCC) Anxiety Anxiety state, unspecified POTS (postural orthostatic tachycardia syndrome) Tachycardia, unspecified Inappropriate sinus node tachycardia Other specified cardiac dysrhythmias Moderate persistent reactive airway disease with acute exacerbation documented in [facility] encounter [facility] note* Diagnosis Dog bite, initial encounter- Primary [facility] Diagnosis 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 POTS (postural orthostatic tachycardia syndrome) Tachycardia, unspecified Inappropriate sinus node tachycardia Other specified cardiac dysrhythmias 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 [facility] [place] [facility]* Diagnosis 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[facility] [facility] [place] [facility] 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 Immunosuppression (HCC) Unspecified disorder of immune mechanism [facility] [place] [facility] Diagnosis PTSD (post-traumatic stress disorder)- Primary [...] constipation and diarrhea [facility] [place] [facility]* Diagnosis Sore throat- Primary Acute pharyngitis Acute otitis media, left Unspecified otitis media [facility] [place] [facility]* 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 [facility] [place] [facility] Diagnosis Encounter for gynecological examination (general) (routine) without abnormal findings- Primary Screening for STD (sexually transmitted disease) Screening examination for venereal disease [facility] [place] [facility]* 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 [facility] [place] [facility]* Diagnosis 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, chronic or unspecified [facility] [place] [facility] Diagnosis 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, chronic or unspecified [facility] [place] [facility]* Diagnosis 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, chronic or unspecified [facility] 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, chronic or unspecified [facility] [place] [facility] Diagnosis 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, chronic or unspecified documented in this encounter [facility] [place] [facility]* Diagnosis Treatment not available- Primary Procedure not carried out for other reasons documented in this encounter [facility] [place] [facility]* Diagnosis Laryngitis- Primary Acute laryngitis, without mention of obstruction Cough, unspecified type documented in this encounter [facility] [place] [facility]* Diagnosis Intractable chronic migraine without aura and without status migrainosus- Primary Chronic migraine without aura, with intractable migraine, so stated, without mention of status migrainosus documented in this encounter [facility] [place] [facility]* Diagnosis Other migraine without status migrainosus, intractable- Primary Abnormal EKG Nonspecific abnormal electrocardiogram (ECG) (EKG) POTS (postural orthostatic tachycardia syndrome) Tachycardia, unspecified Elevated TSH Nonspecific abnormal results of thyroid function study documented in this encounter [facility] note* Diagnosis Acute cystitis without hematuria- Primary Acute cystitis documented in this encounter [facility] [place] [facility]* Diagnosis Upper back pain- Primary documented in this encounter [facility] [place] [facility]* Diagnosis Upper back pain- Primary Other acute gastritis without hemorrhage Fever, unspecified fever cause documented in this encounter [facility] [place] [facility]* Diagnosis Upper back pain Fever, unspecified fever cause documented in this encounter [facility] [place] [facility]* Diagnosis Obsessive-compulsive disorder, unspecified type documented in this encounter [facility] [place] [facility]* Diagnosis 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, 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 documented in this encounter [facility] [place] [facility]* Diagnosis Pelvic pain in female- Primary Unspecified symptom associated with female genital organs documented in this encounter [facility] [place] [facility]* Diagnosis Pelvic pain in female Unspecified symptom associated with female genital organs documented in this encounter [facility] [place] [facility]* Diagnosis Atypical facial pain- Primary Atypical face pain Chronic migraine without aura, with intractable migraine, so stated, with status migrainosus documented in this encounter [facility] [place] [facility]* 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 documented in this encounter [facility] [place] [facility]* Diagnosis Screen for STD (sexually transmitted disease)- Primary Screening examination for venereal disease Chronic left shoulder pain Pain in joint, shoulder region [facility] Diagnosis Latex allergy- Primary Allergy to latex Vitamin D deficiency Unspecified vitamin D deficiency Elevated TSH Nonspecific abnormal results of thyroid function study Inappropriate sinus node tachycardia (HCC) Other specified cardiac dysrhythmias [facility]* Diagnosis POTS (postural orthostatic tachycardia syndrome)- Primary Tachycardia, unspecified [facility] [place] [facility]* Diagnosis Toxic effect of latex, accidental (unintentional), subsequent encounter- Primary Seasonal allergic rhinitis due to pollen Adverse reaction to food, subsequent encounter Oral allergy syndrome, subsequent encounter [facility]* Diagnosis Diarrhea, unspecified type- Primary Acute cough Bacterial sinusitis Unspecified sinusitis (chronic) [facility] [place] [facility]* Diagnosis Abnormal uterine bleeding (AUB)- Primary [facility]* Diagnosis Bilateral lower extremity edema- Primary Edema Intermittent diarrhea Class 3 severe obesity due to excess calories with body mass index (BMI) of 50.0 to 59.9 in adult, unspecified whether serious comorbidity present (HCC) Encounter for long-term current use of medication [facility] Diagnosis Encounter for gynecological examination (general) (routine) without abnormal findings- Primary Screening for cervical cancer Screening for malignant neoplasm of the cervix Encounter for screening for human papillomavirus (HPV) Special screening examination for human papillomavirus (HPV) Cervical high risk human papillomavirus (HPV) DNA test positive Pelvic pain in female Unspecified symptom associated with female genital organs [facility] [place] [facility]* Diagnosis 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, chronic or unspecified Immunosuppression (HCC) Unspecified disorder of immune mechanism Vitamin D deficiency Unspecified vitamin D deficiency [facility] Diagnosis Cervical high risk HPV (human papillomavirus) test positive- Primary Cervical high risk human papillomavirus (HPV) DNA test positive [facility] Diagnosis Cervical high risk HPV (human papillomavirus) test positive- Primary Cervical high risk human papillomavirus (HPV) DNA test positive Nonavalent human papilloma virus (HPV) vaccine for HPV types 6, 11, 16, 18, 31, 33, 45, 52, and 58 administered documented in this encounter [facility]* Diagnosis Need for prophylactic vaccination/inoculation against viral disease- Primary Need for prophylactic vaccination and inoculation against other viral diseases documented in this encounter [facility] [place] [facility]* Diagnosis Need for prophylactic vaccination/inoculation against viral disease- Primary Need for prophylactic vaccination and inoculation against other viral diseases [facility] [place] [facility]* Diagnosis 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, chronic or unspecified Chest pain, unspecified type 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, chronic or unspecified Chest pain, unspecified type [facility] [place] [facility]* Diagnosis Vitamin D deficiency- Primary Unspecified vitamin D deficiency Class 3 severe obesity due to excess calories with body mass index (BMI) of 50.0 to 59.9 in adult, unspecified whether serious comorbidity present ([facility]) [facility] [place] [facility]* Diagnosis Costochondritis Tietze's disease documented in this encounter [facility] [place] [facility]* 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 [facility] [place] [facility]* 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 [facility] [place] [facility]* Diagnosis 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, chronic or unspecified Chest pain, unspecified type [facility] [place] [facility]* Diagnosis Chronic left shoulder pain Pain in joint, shoulder region documented in this encounter [facility] note* Diagnosis Bilateral hip pain- Primary Pain in joint, pelvic region and thigh Chronic pain of both knees POTS (postural orthostatic tachycardia syndrome) Tachycardia, unspecified Arthritis Arthropathy, unspecified, site unspecified Mobility poor Other ill-defined conditions [facility] [place] [facility]* Diagnosis Bilateral hip pain Pain in joint, pelvic region and thigh Chronic pain of both knees POTS (postural orthostatic tachycardia syndrome) Tachycardia, unspecified Arthritis Arthropathy, unspecified, site unspecified documented in this encounter [facility] note* Diagnosis History of eating disorder- Primary [...] syndrome) Tachycardia, unspecified documented in this encounter [facility] [place] [facility]* Diagnosis Left ankle pain, unspecified chronicity documented in this encounter [facility] [place] [facility]* Diagnosis Acute left ankle pain Foot pain, left Pain in limb [facility] [place] [facility]* 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, chronic or unspecified documented in this encounter [facility] [place] [facility]* Diagnosis Left wrist pain Pain in joint, forearm Acute pain of left shoulder documented in this encounter [facility] [place] [facility]* Diagnosis Chronic sinusitis, unspecified location documented in this encounter [facility] [place] [facility]* Diagnosis Cough documented in this encounter [facility] [place] [facility]* 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 documented in this encounter [facility] [place] [facility]* 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 Pain in joint, multiple sites Other chest pain Palpitations documented in this encounter [facility] [place] [facility]* 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, chronic or unspecified documented in this encounter [facility] [place] [facility]* 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 [facility] [place] [facility]* Diagnosis Epigastric abdominal pain- Primary Abdominal pain, epigastric Heartburn documented in this encounter [facility] [place] [facility]* Diagnosis Acute recurrent sinusitis, unspecified location- Primary documented in this encounter [facility] [place] [facility]* 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, chronic or unspecified Immunosuppression (HCC) Unspecified disorder of immune mechanism documented in this encounter [facility] [place] [facility]* Diagnosis Dietary counseling and surveillance- Primary Dietary surveillance and counseling Bulimia nervosa, unspecified severity Eating disorder, unspecified type Obesity, Class III, BMI 40-49.9 (morbid obesity) (HCC) Morbid obesity documented in this encounter [facility] [place] [facility]* 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 documented in this encounter [facility] [place] [facility]* Diagnosis PVC (premature ventricular contraction)- Primary Other premature beats Panic attacks Panic disorder without agoraphobia Panic disorder with agoraphobia Agoraphobia with panic disorder PTSD (post-traumatic stress disorder) Posttraumatic stress disorder Postural orthostatic tachycardia syndrome (POTS) Pleurisy Pleurisy without mention of effusion or current tuberculosis documented in this encounter [facility] [place] [facility]* Diagnosis Situational anxiety- Primary Other anxiety states documented in this encounter [facility] [place] [facility]* Diagnosis URI, acute- Primary Acute upper respiratory infections of unspecified site Acute cough Acute cough URI, acute Acute upper respiratory infections of unspecified site [facility] [place] [facility]* Diagnosis Acute cough URI, acute Acute upper respiratory infections of unspecified site documented in this encounter [facility] [place] [facility]* Diagnosis Injury of left wrist, initial encounter- Primary documented in this encounter [facility] [place] [facility]* Diagnosis Laceration of left hand without foreign body, initial encounter- Primary documented in this encounter [facility] [place] [facility]* Diagnosis Vitamin D deficiency- Primary Unspecified vitamin D deficiency Other fatigue Myalgias Polyarthritis Unspecified polyarthropathy or polyarthritis, site unspecified Muscle weakness (generalized) Abnormal TSH Other abnormal clinical finding documented in this encounter [facility] [place] [facility]* Diagnosis Pharyngitis, unspecified etiology- Primary documented in this encounter [facility] [place] [facility]* Diagnosis Sore throat- Primary Acute pharyngitis Exudative tonsillitis documented in this encounter [facility] [place] [facility]* Diagnosis 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, 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 documented in this encounter [facility] [place] [facility]* Diagnosis 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, chronic or unspecified Immunosuppression (HCC) Unspecified disorder of immune mechanism documented in this encounter [facility] [place] [facility]* Diagnosis Acute non-recurrent maxillary sinusitis- Primary Sore throat Acute pharyngitis documented in this encounter [facility] [place] [facility]* Diagnosis Panic disorder with agoraphobia- Primary Agoraphobia with panic disorder Immunosuppression (HCC) 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 Gastroenteritis Other and unspecified noninfectious gastroenteritis and colitis [facility] Diagnosis Gastroenteritis- Primary Other and unspecified noninfectious gastroenteritis and colitis documented in this encounter [facility] note* 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 documented in this encounter [facility] note* Diagnosis Encounter for gynecological examination (general) (routine) without abnormal findings- Primary Screening for cervical cancer Screening for malignant neoplasm of the cervix Encounter for screening for human papillomavirus (HPV) Special screening examination for human papillomavirus (HPV) Screen for STD (sexually transmitted disease) Screening examination for venereal disease Immunocompromised state (HCC) Unspecified immunity deficiency documented in this encounter [facility] for referral (narrative)* Outpatient Procedure (Routine) - Pending Review Specialty Diagnoses / Procedures Referred By Christie hidalgo Referred To Contact [facility] Diagnoses Encounter for IUD insertion Procedures INSERT INTRAUTERINE DEVICE LEVONORGESTREL IU 52MG 5 YR INSERT INTRAUTERINE DEVICE Ayaan Rowley APRN.CNM [address] [place] [address] [facility] [address] [place] [address] Referral ID Status Reason Start Date Expiration Date Visits Requested Visits Authorized [id number] Pending Review Auto-Generat ed Referral 12/04/2021 12/04/2022 1 1 T [facility] for referral (narrative)* Diagnostic Procedure Only (Routine) - Authorized Specialty Diagnoses / Procedures Referred By Christie hidalgo Referred To Contact [facility] IM[facility] Diagnoses Intrauterine contraceptive device threads lost, initial encounter Procedures US FEMALE PELVIS TRANSVAG US TRANSVAGINAL Ayaan Rowley APRN.CNM [address] [place] [address] [facility] Referral ID Status Reason Start Date Expiration Date Visits Requested Visits Authorized [id number] Authorized Auto-Generat ed Referral 01/20/2022 02/12/2023 1 1 T [facility] for referral (narrative)* Diagnostic Procedure Only (Routine) - Closed Specialty Diagnoses / Procedures Referred By Contac t Referred To Contact [facility] Diagnoses Intrauterine contraceptive device threads lost, initial encounter Procedures US FEMALE PELVIS TRANSVAG US TRANSVAGINAL Ayaan Rowley APRN.CNM [address] [place] [address] [facility] Referral ID Status Reason Start Date Expiration Date V isits Requested Visits Authorized [id number] Closed Auto-Generate d Referral 01/20/2022 02/12/2023 1 1 [facility] for referral (narrative)* Consultation (Routine) - New Request Specialty Diagnoses / Procedures Referred By Contac t Referred To Contact Gynecology Diagnoses IUD check up Mario Vazquez MBBS [address] [address] Referral ID Status Reason Start Date Expiration Date V isits Requested Visits Authorized [id number] New Request 04/16/2022 05/11/2023 1 1 [facility] for referral (narrative)* Outpatient Procedure (Routine) - Closed Specialty Diagnoses / Procedures Referred By Contac t Referred To [facility] Diagnoses Abnormal EKG POTS (postural orthostatic tachycardia syndrome) Procedures ECG COMPLETE ECG ROUTINE ECG W/LEAST 12 LDS W/I&R Genaro Morales APRN.[employer] [address] [place] [address] [facility] [address] [place] [address] Referral ID Status Reason Start Date Expiration Date V isits Requested Visits Authorized [id number] Closed Auto-Generate d Referral 05/20/2023 05/19/2024 1 1 * Consult, Test, Treat (Routine) - Authorized Specialty Diagnoses / Procedures Referred By Contac t Referred To Contact Cardiology Diagnoses Abnormal EKG POTS (postural orthostatic tachycardia syndrome) Procedures CONSULT TO CARDIOLOGY OFFICE/OUTPATIENT NEW HIGH MDM 60-74 MINUTES Genaro Morales APRN.CNS [address] [place] [address] Referral ID Status Reason Start Date Expiration Date Visits Requested Visits Authorized [id number] Authorized PCP Requested Referral 05/20/2023 05/19/2024 1 1 [facility] for referral (narrative)* Diagnostic Procedure Only (Routine) - Authorized Specialty Diagnoses / Procedures Referred By Contac t Referred To Contact [facility] Diagnoses Pelvic pain in female Procedures PELVIC US WHI US PELVIC NONOBSTETRIC REAL-[place] [address] [place] [address] [facility] [address] [place] [address] Referral ID Status Reason Start Date Expiration Date Visits Requested Visits Authorized [id number] Authorized Auto-Generat ed Referral 07/22/2023 07/21/2024 1 1 [facility] for referral (narrative)* Diagnostic Procedure Only (Routine) - Closed Specialty Diagnoses / Procedures Referred By Contac t Referred To Contact XR IMAGING Diagnoses Chronic left shoulder pain Procedures XR SHOULDER LIMITED 2V AP/TRUE AP LEFT RADEX SHOULDER COMPLETE MINIMUM 2 VIEWS Genaro Morales APRN.[employer] [address] [place] [address] [place] [address] Referral ID Status Reason Start Date Expiration Date V isits Requested Visits Authorized [id number] Closed Auto-Generate d Referral 10/14/2023 11/12/2024 1 1 * Physical Therapy (Routine) - Pending Review Specialty Diagnoses / Procedures Referred By Contac t Referred To Contact [facility] Diagnoses Chronic left shoulder pain Procedures CONSULT TO PHYSICAL THERAPY PHYSICAL THERAPY EVALUATION HIGH COMPLEX [address] Genaro Morales APRN.[employer]ELOPER [employer] DE[employer] [address] [place] [address] [facility] [place] [address] [place] [id number] Referral ID Status Reason Start Date Expiration Date Visits Requested Visits Authorized [id number] Pending Review Auto-Generat ed Referral 10/14/2023 10/13/2024 1 1 [facility] for referral (narrative)* Outpatient Procedure (Routine) - New Request Specialty Diagnoses / Procedures Referred By Contac t Referred To Contact [facility] Diagnoses Pelvic pain in female Procedures REMOVE INTRAUTERINE DEVICE REMOVE INTRAUTERINE DEVICE Ayaan Rowley APRN.CNM [address] [place] [address] [address] Referral ID Status Reason Start Date Expiration Date Visits Requested Visits Authorized [id number] New Request Auto-Generat ed Referral 02/27/2024 02/26/2025 1 1 [facility] for referral (narrative)* Outpatient Procedure (Routine) - Authorized Specialty Diagnoses / Procedures Referred By Contac t Referred To Contact [facility] Diagnoses Cervical high risk HPV (human papillomavirus) test positive Procedures COLPOSCOPY COLPOSCOPY CERVIX BX CERVIX & ENDOCRV CURRETAGE Nani Freeman APRN.GRAIN DRIER [address] [place] [address] [facility] [address] [place] [id number] Referral ID Status Reason Start Date Expiration Date Visits Requested Visits Authorized [id number] Authorized Auto-Generat ed Referral 03/12/2024 03/12/2025 1 1 [facility] for referral (narrative)* Diagnostic Procedure Only (Routine) - Closed Specialty Diagnoses / Procedures Referred By Contac t Referred To Contact [facility] IMAG[facility] Diagnoses Chronic left shoulder pain Procedures XR SHOULDER LIMITED 2V AP/TRUE AP LEFT RADEX SHOULDER COMPLETE MINIMUM 2 VIEWS Genaro Morales APRN.[employer] [address] [place] [address] [place] [address] Referral ID Status Reason Start Date Expiration Date V isits Requested Visits Authorized [id number] Closed Auto-Generate d Referral 10/14/2023 11/12/2024 1 1 [facility] for referral (narrative)* Diagnostic Procedure Only (Routine) - Closed Specialty Diagnoses / Procedures Referred By Contac t Referred To Contact XR IMAGING Diagnoses Left ankle pain, unspecified chronicity Procedures XR ANKLE GENERAL 3V AP/LAT/OBL LEFT RADEX ANKLE COMPLETE MINIMUM 3 VIEWS Irwin Campbell MD [address] [place] [address] [place] [address] Referral ID Status Reason Start Date Expiration Date V isits Requested Visits Authorized [id number] Closed Auto-Generate d Referral 09/16/2021 10/16/2022 1 1 [facility] for referral (narrative)* Diagnostic Procedure Only (Urgent) - Closed Specialty Diagnoses / Procedures Referred By Contac t Referred To Contact XR IMAGING Diagnoses Foot pain, left Procedures XR FOOT GENERAL 3V AP/LAT/OBL LEFT X-RAY FOOT MINIMUM 3 VIEWS Rosaura Santacruz APRN.GRAIN DRIER [address] [place] [address] [place] [address] Referral ID Status Reason Start Date Expiration Date V isits Requested Visits Authorized [id number] Closed Auto-Generate d Referral 08/05/2021 09/04/2022 1 1 * Diagnostic Procedure Only (Urgent) - Closed Specialty Diagnoses / Procedures Referred By Contac t Referred To Contact XR IMAGING Diagnoses Acute left ankle pain Procedures XR ANKLE GENERAL 3V AP/LAT/OBL LEFT X-RAY ANKLE MINIMUM 3 VIEWS Rosaura Santacruz, MEDICAL STAFF SERVICES MANAGER.GRAIN DRIER [address] [place] [address] [place] [address] Referral ID Status Reason Start Date Expiration Date V isits Requested Visits Authorized [id number] Closed Auto-Generate d Referral 08/05/2021 09/04/2022 1 1 [facility] for referral (narrative)* Diagnostic Procedure Only (Routine) - Closed Specialty Diagnoses / Procedures Referred By Contac t Referred To Contact CT IMAGING Diagnoses Chronic sinusitis, unspecified location Procedures CT SINUS WO IVCON CT MAXLFCL AREA [facility] [address] [place] [address] [place] [address] Referral ID Status Reason Start Date Expiration Date V isits Requested Visits Authorized [id number] Closed Auto-Generate d Referral 06/27/2020 08/25/2020 3 3 [facility] for visit Narrative* Diagnostic Procedure Only (Routine) - Closed Specialty Diagnoses / Procedures Referred By Contac t Referred To Contact US IMAGING Diagnoses Intrauterine contraceptive device threads lost, initial encounter Procedures US FEMALE PELVIS TRANSVAG US TRANSVAGINAL Ayaan Rowley APRN.ABDIRAHMAN [address] [place] [address] Us Imaging Referral ID Status Reason Start Date Expiration Date V isits Requested Visits Authorized [id number] Closed Auto-Generate d Referral 01/20/2022 02/12/2023 1 1 [facility] for visit Narrative* Diagnostic Procedure Only (Routine) - Closed Specialty Diagnoses / Procedures Referred By Contac t Referred To Contact [facility] Diagnoses Pelvic pain in female Procedures PELVIC US WHI US PELVIC NONOBSTETRIC REAL[place] [address] [place] [address] [facility] [address] [place] [address] Referral ID Status Reason Start Date Expiration Date V isits Requested Visits Authorized [id number] Closed Auto-Generate d Referral 07/22/2023 07/21/2024 1 1 [facility] for visit Narrative* Diagnostic Procedure Only (Routine) - Closed Specialty Diagnoses / Procedures Referred By Contac t Referred To Contact Radiology / [facility] Diagnoses ML Procedures XR CHEST TrpipraSilvia davenport MD [address] [place] [address] [facility] [address] [place] [address] Referral ID Status Reason Start Date Expiration Date Visits Re quested Visits Authorized [id number] Closed 04/02/2024 08/14/2024 1 1 [facility] for visit Narrative* Diagnostic Procedure Only (Routine) - Closed Specialty Diagnoses / Procedures Referred By Contac t Referred To Contact XR IMAGING Diagnoses Chronic left shoulder pain Procedures XR SHOULDER [id number] AP/TRUE AP RIGHT RADEX SHOULDER COMPLETE MINIMUM 2 VIEWS Genaro Morales APRN.CNS [address] [place] [address] [place] [address] Referral ID Status Reason Start Date Expiration Date V isits Requested Visits Authorized [id number] Closed Auto-Generate d Referral 10/14/2023 11/12/2024 1 1 [facility] for visit Narrative* Diagnostic Procedure Only (Routine) - Closed Specialty Diagnoses / Procedures Referred By Contac t Referred To Contact XR IMAGING Diagnoses Left ankle pain, unspecified chronicity Procedures XR ANKLE GENERAL 3V AP/LAT/OBL LEFT RADEX ANKLE COMPLETE MINIMUM 3 VIEWS Irwin Campbell MD [address] [place] [address] [place] [address] Referral ID Status Reason Start Date Expiration Date V isits Requested Visits Authorized [id number] Closed Auto-Generate d Referral 09/16/2021 10/16/2022 1 1 [facility] for visit Narrative* Diagnostic Procedure Only (Urgent) - Closed Specialty Diagnoses / Procedures Referred By Contac t Referred To Contact XR IMAGING Diagnoses Foot pain, left Procedures XR FOOT GENERAL 3V AP/LAT/OBL LEFT X-RAY FOOT MINIMUM 3 VIEWS Rosaura Santacruz, MEDICAL STAFF SERVICES MANAGER.GRAIN DRIER [address] [place] [address] [place] [address] Referral ID Status Reason Start Date Expiration Date V isits Requested Visits Authorized [id number] Closed Auto-Generate d Referral 08/05/2021 09/04/2022 1 1 [facility] for visit Narrative* Diagnostic Procedure Only (Urgent) - Closed Specialty Diagnoses / Procedures Referred By Contac t Referred To Contact XR IMAGING Diagnoses Injury of left wrist, initial encounter Procedures XR WRIST GENERAL 3V PA/LAT/OBL LEFT RADEX WRIST COMPLETE MINIMUM 3 VIEWS Steven Harris MEDICAL STAFF SERVICES MANAGER.GRAIN DRIER [address] [place] [address] Phone: tel: fax: [place] [address] Referral ID Status Reason Start Date Expiration Date V isits Requested Visits Authorized [id number] Closed Auto-Generate d Referral 10/24/2024 11/23/2025 1 1 [facility] Summary Purpose Family History No Family History [...] EXTREM W/O CONTRAST MATRL Faustina Carcamo MD [address] [place] [address] Mr Imaging Referral ID Status Reason Start Date Expiration Date V isits Requested Visits Authorized [id number] Closed Auto-Generate d Referral 09/22/2021 10/22/2022 1 1 Specialty Diagnoses / Procedures Referred By Christie hidalgo Referred To Contact Podiatry Diagnoses Left ankle strain, sequela Procedures CONSULT TO PODIATRY OFFICE/OUTPATIENT [facility] 60-74 MINUTES Faustina Carcamo MD [address] [place] [address] [place] [address] Referral ID Status Reason Start Date Expiration Date V isits Requested Visits Authorized [id number] Closed PCP Requested Referral 09/22/2021 09/22/2022 1 1 Specialty Diagnoses / Procedures Referred By Contac t Referred To Contact Diagnoses RLQ abdominal pain Procedures CT ABDOMEN/PELVIS WITH CONTRAST CHG CT SCAN,ABDOMENT AND PELVIS,W CONTRAST Marina Goodrich T, MEDICAL STAFF SERVICES MANAGER-GRAIN DRIER [address] [place] [address] Referral ID Status Reason Start Date Expiration Date Visits Re quested Visits Authorized [id number] Closed 06/28/2022 07/23/2023 1 1 Specialty Diagnoses / Procedures Referred By Contac t Referred To Contact Diagnoses Vitamin D deficiency Class 3 severe obesity due to excess calories with body mass index (BMI) of 50.0 to 59.9 in adult, unspecified whether serious comorbidity present (HCC) Procedures CONSULT TO PSYCHIATRY OFFICE/OUTPATIENT [facility] 60 MINUTES Genaro Morales, MEDICAL STAFF SERVICES MANAGER.JOB DEVELOPER FOR DE[employer] [address] [place] [address] Referral ID Status Reason Start Date Expiration Date Visits Requested Visits Authorized [id number] Pending Review PCP Requested Referral 04/03/2024 04/03/2025 1 1 Specialty Diagnoses / Procedures Referred By Contac t Referred To Contact Nutrition Diagnoses Class 3 severe obesity due to excess calories with body mass index (BMI) of 50.0 to 59.9 in adult, unspecified whether serious comorbidity present (HCC) Procedures CONSULT TO NUTRITION THERAPY MEDICAL NUTRITION ASSMT&IVNTJ INDIV EACH 15 ID Genaro Morales, MEDICAL STAFF SERVICES MANAGER.JOB DEVELOPER FOR DEAF [employer]ULTS [address] [place] [address] Referral ID Status Reason Start Date Expiration Date Visits Requested Visits Authorized [id number] Authorized PCP Requested Referral 04/03/2024 04/03/2025 1 4 Additional Source Comments INFORMATION SOURCE (unrecogn ized section and content) DATE CREATED AUTHOR 11/03/2021 [facility] DATE CREATED AUTHOR AUTHOR'S ORGANIZ ATION 05/15/2022 [facility] DATE CREATED AUTHOR AUTHOR'S ORGANIZ ATION 07/24/2022 [facility] DATE CREATED AUTHOR AUTHOR'S ORGANIZ ATION 08/06/2022 [facility] DATE CREATED AUTHOR AUTHOR'S ORGANIZ ATION 09/21/2022 [facility] DATE CREATED AUTHOR AUTHOR'S ORGANIZ ATION 05/29/2023 [facility] DATE CREATED AUTHOR AUTHOR'S ORGANIZ ATION 06/01/2023 [facility] DATE CREATED AUTHOR AUTHOR'S ORGANIZ ATION 08/04/2024 [facility] DATE CREATED AUTHOR AUTHOR'S ORGANIZ ATION 02/03/[address] [facility] DATE CREATED AUTHOR AUTHOR'S ORGANIZ ATION 02/05/2025 [facility] Source Comments (unrecognize d section and content) In the event this informatio n is protected by the Federal Confidentiality of Alcohol and Drug Abuse Patient Records regulations: The Federal rules restrict any use of the information to criminally investigate or prosecute any alcohol or drug abuse patient.[facility] the event this information is protected by the Federal Confidentiality of Alcohol and Drug Abuse Patient Records regulations: The Federal rules restrict any use of the information to criminally investigate or prosecute any alcohol or drug abuse patient.[facility] the event this information is protected by the Federal Confidentiality of Alcohol and Drug Abuse Patient Records regulations: The Federal rules restrict any use of the information to criminally investigate or prosecute any alcohol or drug abuse patient.[facility] the event this information is protected by the Federal Confidentiality of Alcohol and Drug Abuse Patient Records regulations: The Federal rules restrict any use of the information to criminally investigate or prosecute any alcohol or drug abuse patient.[facility] the event this information is protected by the Federal Confidentiality of Alcohol and Drug Abuse Patient Records regulations: The Federal rules restrict any use of the information to criminally investigate or prosecute any alcohol or drug abuse patient.[facility] the event this information is protected by the Federal Confidentiality of Alcohol and Drug Abuse Patient Records regulations: The Federal rules restrict any use of the information to criminally investigate or prosecute any alcohol or drug abuse patient.[facility] the event this information is protected by the Federal Confidentiality of Alcohol and Drug Abuse Patient Records regulations: The Federal rules restrict any use of the information to criminally investigate or prosecute any alcohol or drug abuse patient.[facility] the event this information is protected by the Federal Confidentiality of Alcohol and Drug Abuse Patient Records regulations: The Federal rules restrict any use of the information to criminally investigate or prosecute any alcohol or drug abuse patient.[facility] the event this information is protected by the Federal Confidentiality of Alcohol and Drug Abuse Patient Records regulations: The Federal rules restrict any use of the information to criminally investigate or prosecute any alcohol or drug abuse patient.[facility] the event this information is protected by the Federal Confidentiality of Alcohol and Drug Abuse Patient Records regulations: The Federal rules restrict any use of the information to criminally investigate or prosecute any alcohol or drug abuse patient.[facility] the event this information is protected by the Federal Confidentiality of Alcohol and Drug Abuse Patient Records regulations: The Federal rules restrict any use of the information to criminally investigate or prosecute any alcohol or drug abuse patient.[facility] the event this information is protected by the Federal Confidentiality of Alcohol and Drug Abuse Patient Records regulations: The Federal rules restrict any use of the information to criminally investigate or prosecute any alcohol or drug abuse patient.[facility] the event this information is protected by the Federal Confidentiality of Alcohol and Drug Abuse Patient Records regulations: The Federal rules restrict any use of the information to criminally investigate or prosecute any alcohol or drug abuse patient.[facility] the event this information is protected by the Federal Confidentiality of Alcohol and Drug Abuse Patient Records regulations: The Federal rules restrict any use of the information to criminally investigate or prosecute any alcohol or drug abuse patient.[facility] the event this information is protected by the Federal Confidentiality of Alcohol and Drug Abuse Patient Records regulations: The Federal rules restrict any use of the information to criminally investigate or prosecute any alcohol or drug abuse patient.[facility] the event this information is protected by the Federal Confidentiality of Alcohol and Drug Abuse Patient Records regulations: The Federal rules restrict any use of the information to criminally investigate or prosecute any alcohol or drug abuse patient.[facility] the event this information is protected by the Federal Confidentiality of Alcohol and Drug Abuse Patient Records regulations: The Federal rules restrict any use of the information to criminally investigate or prosecute any alcohol or drug abuse patient.[facility] the event this information is protected by the Federal Confidentiality of Alcohol and Drug Abuse Patient Records regulations: The Federal rules restrict any use of the information to criminally investigate or prosecute any alcohol or drug abuse patient.[facility] the event this information is protected by the Federal Confidentiality of Alcohol and Drug Abuse Patient Records regulations: The Federal rules restrict any use of the information to criminally investigate or prosecute any alcohol or drug abuse patient.[facility] the event this information is protected by the Federal Confidentiality of Alcohol and Drug Abuse Patient Records regulations: The Federal rules restrict any use of the information to criminally investigate or prosecute any alcohol or drug abuse patient.[facility] the event this information is protected by the Federal Confidentiality of Alcohol and Drug Abuse Patient Records regulations: The Federal rules restrict any use of the information to criminally investigate or prosecute any alcohol or drug abuse patient.[facility] the event this information is protected by the Federal Confidentiality of Alcohol and Drug Abuse Patient Records regulations: The Federal rules restrict any use of the information to criminally investigate or prosecute any alcohol or drug abuse patient.[facility] the event this information is protected by the Federal Confidentiality of Alcohol and Drug Abuse Patient Records regulations: The Federal rules restrict any use of the information to criminally investigate or prosecute any alcohol or drug abuse patient.[facility]In the event this information is protected by the Federal Confidentiality of Alcohol and Drug Abuse Patient Records regulations: The Federal rules restrict any use of the information to criminally investigate or prosecute any alcohol or drug abuse patient.[facility]In the event this information is protected by the Federal Confidentiality of Alcohol and Drug Abuse Patient Records regulations: The Federal rules restrict any use of the information to criminally investigate or prosecute any alcohol or drug abuse patient.[facility]In the event this information is protected by the Federal Confidentiality of Alcohol and Drug Abuse Patient Records regulations: The Federal rules restrict any use of the information to criminally investigate or prosecute any alcohol or drug abuse patient.[facility]In the event this information is protected by the Federal Confidentiality of Alcohol and Drug Abuse Patient Records regulations: The Federal rules restrict any use of the information to criminally investigate or prosecute any alcohol or drug abuse patient.[facility]In the event this information is protected by the Federal Confidentiality of Alcohol and Drug Abuse Patient Records regulations: The Federal rules restrict any use of the information to criminally investigate or prosecute any alcohol or drug abuse patient.[facility]In the event this information is protected by the Federal Confidentiality of Alcohol and Drug Abuse Patient Records regulations: The Federal rules restrict any use of the information to criminally investigate or prosecute any alcohol or drug abuse patient.[facility]In the event this information is protected by the Federal Confidentiality of Alcohol and Drug Abuse Patient Records regulations: The Federal rules restrict any use of the information to criminally investigate or prosecute any alcohol or drug abuse patient.[facility]In the event this information is protected by the Federal Confidentiality of Alcohol and Drug Abuse Patient Records regulations: The Federal rules restrict any use of the information to criminally investigate or prosecute any alcohol or drug abuse patient.[facility]In the event this information is protected by the Federal Confidentiality of Alcohol and Drug Abuse Patient Records regulations: The Federal rules restrict any use of the information to criminally investigate or prosecute any alcohol or drug abuse patient.[facility]In the event this information is protected by the Federal Confidentiality of Alcohol and Drug Abuse Patient Records regulations: The Federal rules restrict any use of the information to criminally investigate or prosecute any alcohol or drug abuse patient.[facility]In the event this information is protected by the Federal Confidentiality of Alcohol and Drug Abuse Patient Records regulations: The Federal rules restrict any use of the information to criminally investigate or prosecute any alcohol or drug abuse patient.[facility]In the event this information is protected by the Federal Confidentiality of Alcohol and Drug Abuse Patient Records regulations: The Federal rules restrict any use of the information to criminally investigate or prosecute any alcohol or drug abuse patient.[facility]In the event this information is protected by the Federal Confidentiality of Alcohol and Drug Abuse Patient Records regulations: The Federal rules restrict any use of the information to criminally investigate or prosecute any alcohol or drug abuse patient.[facility]In the event this information is protected by the Federal Confidentiality of Alcohol and Drug Abuse Patient Records regulations: The Federal rules restrict any use of the information to criminally investigate or prosecute any alcohol or drug abuse patient.[facility]In the event this information is protected by the Federal Confidentiality of Alcohol and Drug Abuse Patient Records regulations: The Federal rules restrict any use of the information to criminally investigate or prosecute any alcohol or drug abuse patient.[facility]In the event this information is protected by the Federal Confidentiality of Alcohol and Drug Abuse Patient Records regulations: The Federal rules restrict any use of the information to criminally investigate or prosecute any alcohol or drug abuse patient.[facility]In the event this information is protected by the Federal Confidentiality of Alcohol and Drug Abuse Patient Records regulations: The Federal rules restrict any use of the information to criminally investigate or prosecute any alcohol or drug abuse patient.[facility]In the event this information is protected by the Federal Confidentiality of Alcohol and Drug Abuse Patient Records regulations: The Federal rules restrict any use of the information to criminally investigate or prosecute any alcohol or drug abuse patient.[facility]In the event this information is protected by the Federal Confidentiality of Alcohol and Drug Abuse Patient Records regulations: The Federal rules restrict any use of the information to criminally investigate or prosecute any alcohol or drug abuse patient.[facility] AndersonIn the event this information is protected by the Federal Confidentiality of Alcohol and Drug Abuse Patient Records regulations: The Federal rules restrict any use of the information to criminally investigate or prosecute any alcohol or drug abuse patient.[facility] AndersonIn the event this information is protected by the Federal Confidentiality of Alcohol and Drug Abuse Patient Records regulations: The Federal rules restrict any use of the information to criminally investigate or prosecute any alcohol or drug abuse patient.[facility] [place]In the event this information is protected by the Federal Confidentiality of Alcohol and Drug Abuse Patient Records regulations: The Federal rules restrict any use of the information to criminally investigate or prosecute any alcohol or drug abuse patient.[facility] AndersonIn the event this information is protected by the Federal Confidentiality of Alcohol and Drug Abuse Patient Records regulations: The Federal rules restrict any use of the information to criminally investigate or prosecute any alcohol or drug abuse patient.[facility] AndersonIn the event this information is protected by the Federal Confidentiality of Alcohol and Drug Abuse Patient Records regulations: The Federal rules restrict any use of the information to criminally investigate or prosecute any alcohol or drug abuse patient.[facility] [place]In the event this information is protected by the Federal Confidentiality of Alcohol and Drug Abuse Patient Records regulations: The Federal rules restrict any use of the information to criminally investigate or prosecute any alcohol or drug abuse patient.[facility] [place]In the event this information is protected by the Federal Confidentiality of Alcohol and Drug Abuse Patient Records regulations: The Federal rules restrict any use of the information to criminally investigate or prosecute any alcohol or drug abuse patient.[facility] [place]In the event this information is protected by the Federal Confidentiality of Alcohol and Drug Abuse Patient Records regulations: The Federal rules restrict any use of the information to criminally investigate or prosecute any alcohol or drug abuse patient.[facility] [place]In the event this information is protected by the Federal Confidentiality of Alcohol and Drug Abuse Patient Records regulations: The Federal rules restrict any use of the information to criminally investigate or prosecute any alcohol or drug abuse patient.[facility] [place]In the event this information is protected by the Federal Confidentiality of Alcohol and Drug Abuse Patient Records regulations: The Federal rules restrict any use of the information to criminally investigate or prosecute any alcohol or drug abuse patient.[facility] [place]In the event this information is protected by the Federal Confidentiality of Alcohol and Drug Abuse Patient Records regulations: The Federal rules restrict any use of the information to criminally investigate or prosecute any alcohol or drug abuse patient.[facility] [place]In the event this information is protected by the Federal Confidentiality of Alcohol and Drug Abuse Patient Records regulations: The Federal rules restrict any use of the information to criminally investigate or prosecute any alcohol or drug abuse patient.[facility] [place]In the event this information is protected by the Federal Confidentiality of Alcohol and Drug Abuse Patient Records regulations: The Federal rules restrict any use of the information to criminally investigate or prosecute any alcohol or drug abuse patient.[facility] [place]In the event this information is protected by the Federal Confidentiality of Alcohol and Drug Abuse Patient Records regulations: The Federal rules restrict any use of the information to criminally investigate or prosecute any alcohol or drug abuse patient.[facility] [place]In the event this information is protected by the Federal Confidentiality of Alcohol and Drug Abuse Patient Records regulations: The Federal rules restrict any use of the information to criminally investigate or prosecute any alcohol or drug abuse patient.[facility] [place]In the event this information is protected by the Federal Confidentiality of Alcohol and Drug Abuse Patient Records regulations: The Federal rules restrict any use of the information to criminally investigate or prosecute any alcohol or drug abuse patient.[facility] [place]In the event this information is protected by the Federal Confidentiality of Alcohol and Drug Abuse Patient Records regulations: The Federal rules restrict any use of the information to criminally investigate or prosecute any alcohol or drug abuse patient.[facility] AndersonIn the event this information is protected by the Federal Confidentiality of Alcohol and Drug Abuse Patient Records regulations: The Federal rules restrict any use of the information to criminally investigate or prosecute any alcohol or drug abuse patient.[facility] [place]In the event this information is protected by the Federal Confidentiality of Alcohol and Drug Abuse Patient Records regulations: The Federal rules restrict any use of the information to criminally investigate or prosecute any alcohol or drug abuse patient.[facility] [place]In the event this information is protected by the Federal Confidentiality of Alcohol and Drug Abuse Patient Records regulations: The Federal rules restrict any use of the information to criminally investigate or prosecute any alcohol or drug abuse patient.[facility] [place]In the event this information is protected by the Federal Confidentiality of Alcohol and Drug Abuse Patient Records regulations: The Federal rules restrict any use of the information to criminally investigate or prosecute any alcohol or drug abuse patient.[facility] [place]In the event this information is protected by the Federal Confidentiality of Alcohol and Drug Abuse Patient Records regulations: The Federal rules restrict any use of the information to criminally investigate or prosecute any alcohol or drug abuse patient.[facility] [place]In the event this information is protected by the Federal Confidentiality of Alcohol and Drug Abuse Patient Records regulations: The Federal rules restrict any use of the information to criminally investigate or prosecute any alcohol or drug abuse patient.[facility] [place]In the event this information is protected by the Federal Confidentiality of Alcohol and Drug Abuse Patient Records regulations: The Federal rules restrict any use of the information to criminally investigate or prosecute any alcohol or drug abuse patient.[facility] [place]In the event this information is protected by the Federal Confidentiality of Alcohol and Drug Abuse Patient Records regulations: The Federal rules restrict any use of the information to criminally investigate or prosecute any alcohol or drug abuse patient.[facility] [place]In the event this information is protected by the Federal Confidentiality of Alcohol and Drug Abuse Patient Records regulations: The Federal rules restrict any use of the information to criminally investigate or prosecute any alcohol or drug abuse patient.[facility] [place]In the event this information is protected by the Federal Confidentiality of Alcohol and Drug Abuse Patient Records regulations: The Federal rules restrict any use of the information to criminally investigate or prosecute any alcohol or drug abuse patient.[facility] [place]In the event this information is protected by the Federal Confidentiality of Alcohol and Drug Abuse Patient Records regulations: The Federal rules restrict any use of the information to criminally investigate or prosecute any alcohol or drug abuse patient.[facility] [place]In the event this information is protected by the Federal Confidentiality of Alcohol and Drug Abuse Patient Records regulations: The Federal rules restrict any use of the information to criminally investigate or prosecute any alcohol or drug abuse patient.[facility] [place]In the event this information is protected by the Federal Confidentiality of Alcohol and Drug Abuse Patient Records regulations: The Federal rules restrict any use of the information to criminally investigate or prosecute any alcohol or drug abuse patient.[facility] [place]In the event this information is protected by the Federal Confidentiality of Alcohol and Drug Abuse Patient Records regulations: The Federal rules restrict any use of the information to criminally investigate or prosecute any alcohol or drug abuse patient.[facility] [place]In the event this information is protected by the Federal Confidentiality of Alcohol and Drug Abuse Patient Records regulations: The Federal rules restrict any use of the information to criminally investigate or prosecute any alcohol or drug abuse patient.[facility] [place]In the event this information is protected by the Federal Confidentiality of Alcohol and Drug Abuse Patient Records regulations: The Federal rules restrict any use of the information to criminally investigate or prosecute any alcohol or drug abuse patient.[facility] [place]In the event this information is protected by the Federal Confidentiality of Alcohol and Drug Abuse Patient Records regulations: The Federal rules restrict any use of the information to criminally investigate or prosecute any alcohol or drug abuse patient.[facility] [place]In the event this information is protected by the Federal Confidentiality of Alcohol and Drug Abuse Patient Records regulations: The Federal rules restrict any use of the information to criminally investigate or prosecute any alcohol or drug abuse patient.[facility] [place]In the event this information is protected by the Federal Confidentiality of Alcohol and Drug Abuse Patient Records regulations: The Federal rules restrict any use of the information to criminally investigate or prosecute any alcohol or drug abuse patient.[facility] [place]In the event this information is protected by the Federal Confidentiality of Alcohol and Drug Abuse Patient Records regulations: The Federal rules restrict any use of the information to criminally investigate or prosecute any alcohol or drug abuse patient.[facility] [place]In the event this information is protected by the Federal Confidentiality of Alcohol and Drug Abuse Patient Records regulations: The Federal rules restrict any use of the information to criminally investigate or prosecute any alcohol or drug abuse patient.[facility] [place]In the event this information is protected by the Federal Confidentiality of Alcohol and Drug Abuse Patient Records regulations: The Federal rules restrict any use of the information to criminally investigate or prosecute any alcohol or drug abuse patient.[facility] [place]In the event this information is protected by the Federal Confidentiality of Alcohol and Drug Abuse Patient Records regulations: The Federal rules restrict any use of the information to criminally investigate or prosecute any alcohol or drug abuse patient.[facility] [place]In the event this information is protected by the Federal Confidentiality of Alcohol and Drug Abuse Patient Records regulations: The Federal rules restrict any use of the information to criminally investigate or prosecute any alcohol or drug abuse patient.[facility] [place]In the event this information is protected by the Federal Confidentiality of Alcohol and Drug Abuse Patient Records regulations: The Federal rules restrict any use of the information to criminally investigate or prosecute any alcohol or drug abuse patient.[facility] [place]In the event this information is protected by the Federal Confidentiality of Alcohol and Drug Abuse Patient Records regulations: The Federal rules restrict any use of the information to criminally investigate or prosecute any alcohol or drug abuse patient.[facility] AndersonIn the event this information is protected by the Federal Confidentiality of Alcohol and Drug Abuse Patient Records regulations: The Federal rules restrict any use of the information to criminally investigate or prosecute any alcohol or drug abuse patient.[facility] [place]In the event this information is protected by the Federal Confidentiality of Alcohol and Drug Abuse Patient Records regulations: The Federal rules restrict any use of the information to criminally investigate or prosecute any alcohol or drug abuse patient.[facility] [place]In the event this information is protected by the Federal Confidentiality of Alcohol and Drug Abuse Patient Records regulations: The Federal rules restrict any use of the information to criminally investigate or prosecute any alcohol or drug abuse patient.[facility] [place]In the event this information is protected by the Federal Confidentiality of Alcohol and Drug Abuse Patient Records regulations: The Federal rules restrict any use of the information to criminally investigate or prosecute any alcohol or drug abuse patient.[facility] [place]In the event this information is protected by the Federal Confidentiality of Alcohol and Drug Abuse Patient Records regulations: The Federal rules restrict any use of the information to criminally investigate or prosecute any alcohol or drug abuse patient.[facility] [place]In the event this information is protected by the Federal Confidentiality of Alcohol and Drug Abuse Patient Records regulations: The Federal rules restrict any use of the information to criminally investigate or prosecute any alcohol or drug abuse patient.[facility] [place]In the event this information is protected by the Federal Confidentiality of Alcohol and Drug Abuse Patient Records regulations: The Federal rules restrict any use of the information to criminally investigate or prosecute any alcohol or drug abuse patient.[facility] AndersonIn the event this information is protected by the Federal Confidentiality of Alcohol and Drug Abuse Patient Records regulations: The Federal rules restrict any use of the information to criminally investigate or prosecute any alcohol or drug abuse patient.[facility] [place]In the event this information is protected by the Federal Confidentiality of Alcohol and Drug Abuse Patient Records regulations: The Federal rules restrict any use of the information to criminally investigate or prosecute any alcohol or drug abuse patient.[facility] [place]In the event this information is protected by the Federal Confidentiality of Alcohol and Drug Abuse Patient Records regulations: The Federal rules restrict any use of the information to criminally investigate or prosecute any alcohol or drug abuse patient.[facility] AndersonIn the event this information is protected by the Federal Confidentiality of Alcohol and Drug Abuse Patient Records regulations: The Federal rules restrict any use of the information to criminally investigate or prosecute any alcohol or drug abuse patient.[facility] AndersonIn the event this information is protected by the Federal Confidentiality of Alcohol and Drug Abuse Patient Records regulations: The Federal rules restrict any use of the information to criminally investigate or prosecute any alcohol or drug abuse patient.[facility] [place]In the event this information is protected by the Federal Confidentiality of Alcohol and Drug Abuse Patient Records regulations: The Federal rules restrict any use of the information to criminally investigate or prosecute any alcohol or drug abuse patient.[facility] AndersonIn the event this information is protected by the Federal Confidentiality of Alcohol and Drug Abuse Patient Records regulations: The Federal rules restrict any use of the information to criminally investigate or prosecute any alcohol or drug abuse patient.[facility] [place]In the event this information is protected by the Federal Confidentiality of Alcohol and Drug Abuse Patient Records regulations: The Federal rules restrict any use of the information to criminally investigate or prosecute any alcohol or drug abuse patient.[facility] AndersonIn the event this information is protected by the Federal Confidentiality of Alcohol and Drug Abuse Patient Records regulations: The Federal rules restrict any use of the information to criminally investigate or prosecute any alcohol or drug abuse patient.[facility] AndersonIn the event this information is protected by the Federal Confidentiality of Alcohol and Drug Abuse Patient Records regulations: The Federal rules restrict any use of the information to criminally investigate or prosecute any alcohol or drug abuse patient.[facility] AndersonIn the event this information is protected by the Federal Confidentiality of Alcohol and Drug Abuse Patient Records regulations: The Federal rules restrict any use of the information to criminally investigate or prosecute any alcohol or drug abuse patient.[facility] AndersonIn the event this information is protected by the Federal Confidentiality of Alcohol and Drug Abuse Patient Records regulations: The Federal rules restrict any use of the information to criminally investigate or prosecute any alcohol or drug abuse patient.[facility] AndersonIn the event this information is protected by the Federal Confidentiality of Alcohol and Drug Abuse Patient Records regulations: The Federal rules restrict any use of the information to criminally investigate or prosecute any alcohol or drug abuse patient.[facility] AndersonIn the event this information is protected by the Federal Confidentiality of Alcohol and Drug Abuse Patient Records regulations: The Federal rules restrict any use of the information to criminally investigate or prosecute any alcohol or drug abuse patient.[facility] AndersonIn the event this information is protected by the Federal Confidentiality of Alcohol and Drug Abuse Patient Records regulations: The Federal rules restrict any use of the information to criminally investigate or prosecute any alcohol or drug abuse patient.[facility] AndersonIn the event this information is protected by the Federal Confidentiality of Alcohol and Drug Abuse Patient Records regulations: The Federal rules restrict any use of the information to criminally investigate or prosecute any alcohol or drug abuse patient.[facility] AndersonIn the event this information is protected by the Federal Confidentiality of Alcohol and Drug Abuse Patient Records regulations: The Federal rules restrict any use of the information to criminally investigate or prosecute any alcohol or drug abuse patient.[facility] AndersonIn the event this information is protected by the Federal Confidentiality of Alcohol and Drug Abuse Patient Records regulations: The Federal rules restrict any use of the information to criminally investigate or prosecute any alcohol or drug abuse patient.[facility] AndersonIn the event this information is protected by the Federal Confidentiality of Alcohol and Drug Abuse Patient Records regulations: The Federal rules restrict any use of the information to criminally investigate or prosecute any alcohol or drug abuse patient.[facility] [place]In the event this information is protected by the Federal Confidentiality of Alcohol and Drug Abuse Patient Records regulations: The Federal rules restrict any use of the information to criminally investigate or prosecute any alcohol or drug abuse patient.[facility] [place]In the event this information is protected by the Federal Confidentiality of Alcohol and Drug Abuse Patient Records regulations: The Federal rules restrict any use of the information to criminally investigate or prosecute any alcohol or drug abuse patient.[facility] [place]In the event this information is protected by the Federal Confidentiality of Alcohol and Drug Abuse Patient Records regulations: The Federal rules restrict any use of the information to criminally investigate or prosecute any alcohol or drug abuse patient.[facility] [place]In the event this information is protected by the Federal Confidentiality of Alcohol and Drug Abuse Patient Records regulations: The Federal rules restrict any use of the information to criminally investigate or prosecute any alcohol or drug abuse patient.[facility] [place]In the event this information is protected by the Federal Confidentiality of Alcohol and Drug Abuse Patient Records regulations: The Federal rules restrict any use of the information to criminally investigate or prosecute any alcohol or drug abuse patient.[facility] [place]In the event this information is protected by the Federal Confidentiality of Alcohol and Drug Abuse Patient Records regulations: The Federal rules restrict any use of the information to criminally investigate or prosecute any alcohol or drug abuse patient.[facility] AndersonIn the event this information is protected by the Federal Confidentiality of Alcohol and Drug Abuse Patient Records regulations: The Federal rules restrict any use of the information to criminally investigate or prosecute any alcohol or drug abuse patient.[facility] AndersonIn the event this information is protected by the Federal Confidentiality of Alcohol and Drug Abuse Patient Records regulations: The Federal rules restrict any use of the information to criminally investigate or prosecute any alcohol or drug abuse patient.[facility] [place]In the event this information is protected by the Federal Confidentiality of Alcohol and Drug Abuse Patient Records regulations: The Federal rules restrict any use of the information to criminally investigate or prosecute any alcohol or drug abuse patient.[facility] AndersonIn the event this information is protected by the Federal Confidentiality of Alcohol and Drug Abuse Patient Records regulations: The Federal rules restrict any use of the information to criminally investigate or prosecute any alcohol or drug abuse patient.[facility] AndersonIn the event this information is protected by the Federal Confidentiality of Alcohol and Drug Abuse Patient Records regulations: The Federal rules restrict any use of the information to criminally investigate or prosecute any alcohol or drug abuse patient.[facility] [place]In the event this information is protected by the Federal Confidentiality of Alcohol and Drug Abuse Patient Records regulations: The Federal rules restrict any use of the information to criminally investigate or prosecute any alcohol or drug abuse patient.[facility] AndersonIn the event this information is protected by the Federal Confidentiality of Alcohol and Drug Abuse Patient Records regulations: The Federal rules restrict any use of the information to criminally investigate or prosecute any alcohol or drug abuse patient.[facility] AndersonIn the event this information is protected by the Federal Confidentiality of Alcohol and Drug Abuse Patient Records regulations: The Federal rules restrict any use of the information to criminally investigate or prosecute any alcohol or drug abuse patient.[facility] AndersonIn the event this information is protected by the Federal Confidentiality of Alcohol and Drug Abuse Patient Records regulations: The Federal rules restrict any use of the information to criminally investigate or prosecute any alcohol or drug abuse patient.[facility] AndersonIn the event this information is protected by the Federal Confidentiality of Alcohol and Drug Abuse Patient Records regulations: The Federal rules restrict any use of the information to criminally investigate or prosecute any alcohol or drug abuse patient.[facility] AndersonIn the event this information is protected by the Federal Confidentiality of Alcohol and Drug Abuse Patient Records regulations: The Federal rules restrict any use of the information to criminally investigate or prosecute any alcohol or drug abuse patient.[facility] AndersonIn the event this information is protected by the Federal Confidentiality of Alcohol and Drug Abuse Patient Records regulations: The Federal rules restrict any use of the information to criminally investigate or prosecute any alcohol or drug abuse patient.[facility] AndersonIn the event this information is protected by the Federal Confidentiality of Alcohol and Drug Abuse Patient Records regulations: The Federal rules restrict any use of the information to criminally investigate or prosecute any alcohol or drug abuse patient.[facility] AndersonIn the event this information is protected by the Federal Confidentiality of Alcohol and Drug Abuse Patient Records regulations: The Federal rules restrict any use of the information to criminally investigate or prosecute any alcohol or drug abuse patient.[facility] AndersonIn the event this information is protected by the Federal Confidentiality of Alcohol and Drug Abuse Patient Records regulations: The Federal rules restrict any use of the information to criminally investigate or prosecute any alcohol or drug abuse patient.[facility] AndersonIn the event this information is protected by the Federal Confidentiality of Alcohol and Drug Abuse Patient Records regulations: The Federal rules restrict any use of the information to criminally investigate or prosecute any alcohol or drug abuse patient.[facility] AndersonIn the event this information is protected by the Federal Confidentiality of Alcohol and Drug Abuse Patient Records regulations: The Federal rules restrict any use of the information to criminally investigate or prosecute any alcohol or drug abuse patient.[facility] AndersonIn the event this information is protected by the Federal Confidentiality of Alcohol and Drug Abuse Patient Records regulations: The Federal rules restrict any use of the information to criminally investigate or prosecute any alcohol or drug abuse patient.[facility] AndersonIn the event this information is protected by the Federal Confidentiality of Alcohol and Drug Abuse Patient Records regulations: The Federal rules restrict any use of the information to criminally investigate or prosecute any alcohol or drug abuse patient.[facility] AndersonIn the event this information is protected by the Federal Confidentiality of Alcohol and Drug Abuse Patient Records regulations: The Federal rules restrict any use of the information to criminally investigate or prosecute any alcohol or drug abuse patient.[facility] AndersonIn the event this information is protected by the Federal Confidentiality of Alcohol and Drug Abuse Patient Records regulations: The Federal rules restrict any use of the information to criminally investigate or prosecute any alcohol or drug abuse patient.[facility] AndersonIn the event this information is protected by the Federal Confidentiality of Alcohol and Drug Abuse Patient Records regulations: The Federal rules restrict any use of the information to criminally investigate or prosecute any alcohol or drug abuse patient.[facility] AndersonIn the event this information is protected by the Federal Confidentiality of Alcohol and Drug Abuse Patient Records regulations: The Federal rules restrict any use of the information to criminally investigate or prosecute any alcohol or drug abuse patient.[facility] AndersonIn the event this information is protected by the Federal Confidentiality of Alcohol and Drug Abuse Patient Records regulations: The Federal rules restrict any use of the information to criminally investigate or prosecute any alcohol or drug abuse patient.[facility] AndersonIn the event this information is protected by the Federal Confidentiality of Alcohol and Drug Abuse Patient Records regulations: The Federal rules restrict any use of the information to criminally investigate or prosecute any alcohol or drug abuse patient.[facility] AndersonIn the event this information is protected by the Federal Confidentiality of Alcohol and Drug Abuse Patient Records regulations: The Federal rules restrict any use of the information to criminally investigate or prosecute any alcohol or drug abuse patient.[facility] AndersonIn the event this information is protected by the Federal Confidentiality of Alcohol and Drug Abuse Patient Records regulations: The Federal rules restrict any use of the information to criminally investigate or prosecute any alcohol or drug abuse patient.[facility] AndersonIn the event this information is protected by the Federal Confidentiality of Alcohol and Drug Abuse Patient Records regulations: The Federal rules restrict any use of the information to criminally investigate or prosecute any alcohol or drug abuse patient.[facility] AndersonIn the event this information is protected by the Federal Confidentiality of Alcohol and Drug Abuse Patient Records regulations: The Federal rules restrict any use of the information to criminally investigate or prosecute any alcohol or drug abuse patient.[facility] AndersonIn the event this information is protected by the Federal Confidentiality of Alcohol and Drug Abuse Patient Records regulations: The Federal rules restrict any use of the information to criminally investigate or prosecute any alcohol or drug abuse patient.[facility] AndersonIn the event this information is protected by the Federal Confidentiality of Alcohol and Drug Abuse Patient Records regulations: The Federal rules restrict any use of the information to criminally investigate or prosecute any alcohol or drug abuse patient.[facility] AndersonIn the event this information is protected by the Federal Confidentiality of Alcohol and Drug Abuse Patient Records regulations: The Federal rules restrict any use of the information to criminally investigate or prosecute any alcohol or drug abuse patient.[facility] AndersonIn the event this information is protected by the Federal Confidentiality of Alcohol and Drug Abuse Patient Records regulations: The Federal rules restrict any use of the information to criminally investigate or prosecute any alcohol or drug abuse patient.[facility] AndersonIn the event this information is protected by the Federal Confidentiality of Alcohol and Drug Abuse Patient Records regulations: The Federal rules restrict any use of the information to criminally investigate or prosecute any alcohol or drug abuse patient.[facility] AndersonIn the event this information is protected by the Federal Confidentiality of Alcohol and Drug Abuse Patient Records regulations: The Federal rules restrict any use of the information to criminally investigate or prosecute any alcohol or drug abuse patient.[facility] AndersonIn the event this information is protected by the Federal Confidentiality of Alcohol and Drug Abuse Patient Records regulations: The Federal rules restrict any use of the information to criminally investigate or prosecute any alcohol or drug abuse patient.[facility] AndersonIn the event this information is protected by the Federal Confidentiality of Alcohol and Drug Abuse Patient Records regulations: The Federal rules restrict any use of the information to criminally investigate or prosecute any alcohol or drug abuse patient.[facility] AndersonIn the event this information is protected by the Federal Confidentiality of Alcohol and Drug Abuse Patient Records regulations: The Federal rules restrict any use of the information to criminally investigate or prosecute any alcohol or drug abuse patient.[facility] AndersonIn the event this information is protected by the Federal Confidentiality of Alcohol and Drug Abuse Patient Records regulations: The Federal rules restrict any use of the information to criminally investigate or prosecute any alcohol or drug abuse patient.[facility] Reason for Visit (unrecogniz ed section and content) Reason Comments Patient Education Assessment Specialty Diagnoses / Procedures Referred By Christie t Referred To Contact Nutrition Diagnoses Class 3 severe obesity due to excess calories with body mass index (BMI) of 50.0 to 59.9 in adult, unspecified whether serious comorbidity present (HCC) Procedures CONSULT TO NUTRITION THERAPY MEDICAL NUTRITION ASSMT&IVNTJ INDIV EACH 15 ID Genaro Morales, MEDICAL STAFF SERVICES MANAGER.JOB DEVELOPER FOR DEAF ADULTS [address] [place] [address] Referral ID Status Reason Start Date Expiration Date Visits Requested Visits Authorized [id number] Authorized PCP Requested Referral 04/03/2024 04/03/2025 1 4 Reason Comments Recheck Specialty Diagnoses / Procedures Referred By Christie t Referred To Contact RHEUMATOLOGY Diagnoses Juvenile idiopathic arthritis (HCC) Procedures office visit Silvia Tucker MD [address] [id number] [facility] Indp [address] [id number] Referral ID Status Reason Start Date Expiration Date V isits Requested Visits Authorized [id number] Closed Financial Clearance Required - Self Pay [...] Referred By Christie t Referred To Contact [facility] Diagnoses Encounter for IUD insertion Procedures INSERT INTRAUTERINE DEVICE INSERT INTRAUTERINE DEVICE Ayaan Rowley APRN.CN [address] [place] [address] [facility] [address] [place] [address] Referral ID Status Reason Start Date Expiration Date V isits Requested Visits Authorized [id number] Authorized 08/15/2021 08/14/2022 2 2 Reason Comments Follow Up Reason Comments Shortness of Breath Reason Comments IUD Reason Onset Date Comments Refill Request 01/16/2022 Reason Comments Results Reason Onset Date Comments Refill Request 02/18/2022 Reason Onset Date Comments SPP Inflammatory Conditions - Treatment Referral 02/19/2022 Ilaris Reason Comments Consult Reason Comments Consult [facility] Pt Outreach F/U Reason Onset Date Comments Refill Request 02/25/2022 Reason Comments Consult [facility] assessment Virt ual Reason Onset Date [...] SCAN,ABDOMENT AND PELVIS,W CONTRAST Marina Goodrich T, MEDICAL STAFF SERVICES MANAGER-GRAIN DRIER [address] [place] [address] Referral ID Status Reason Start Date Expiration Date Visits Re quested Visits Authorized [id number] Closed 06/28/2022 07/23/2023 1 1 Reason Comments [...] To Contact Diagnoses . Procedures . Self [facility] Referral ID Status Reason Start Date Expiration Date V isits Requested Visits Authorized [id number] Closed Patient Cleared - Qualified 100% FAS [...] k. Reason Comments new form coming from [employer] Reason Comments requesting copy of form faxed earlier Reason Comments Discussion Need for accommodati ons at work; new form for [employer] needs completed since they denied all of [...] Date Expiration Date Visits Requested Visits Authorized [id number] New Request Financial Clearance Required - Self Pay OON/Self Pay Override 03/12/2024 06/10/[phone] Reason Comments Results Colposcopy Reason Comments Colposcopy Specialty Diagnoses / Procedures Referred By Christie hidalgo Referred To Contact [facility] Diagnoses Cervical high risk HPV (human papillomavirus) test positive Procedures COLPOSCOPY COLPOSCOPY CERVIX BX CERVIX & ENDOCRV CURRETAGE Nani Freeman APRN.GRAIN DRIER [address] [place] [address] [facility] [address] [place] [address] Referral ID Status Reason Start Date Expiration Date V isits Requested Visits Authorized [id number] Closed Auto-Generate d Referral 03/12/2024 03/12/2025 1 [...] CT Specialty Diagnoses / Procedures Referred By Christie hidalgo Referred To Contact CT IMAGING Diagnoses Chronic sinusitis, unspecified location Procedures CT SINUS WO IVCON CT MAXLFCL [facility] [place] [address] [place] [address] [facility] [place] [address] Referral ID Status Reason Start Date Expiration Date V isits Requested Visits Authorized [id number] Closed Auto-Generate d Referral 06/27/2020 08/25/2020 3 [...] the last 5 days. Able to eat sweet pickled fruit maker but then nausea and vomiting started later. Reason Onset Date Comments SPP Inflammatory Conditions - Medication Refill 01/31/2025 Ilaris Reason Comments Well Woman Reason Comments Clinical Update Care Teams (unrecognized sec tion and content) Ballet Dancer Relationship Specialty Start Date End Date Faustina Carcamo MD [address] [facility] [place] [address] PCP - General Internal Medicine 04/10/13 Ballet Dancer Relationship Specialty Start Date End Date Faustina Carcamo MD [address] [place] [address], [place] [address] PCP - General Internal Medicine 04/10/13 Ballet Dancer Relationship Specialty Start Date End Date Faustina Carcamo MD [address] [place] [address], [place] [address] PCP - General Internal Medicine 04/10/13 Ballet Dancer Relationship Specialty Start Date End Date Faustina Carcamo MD [address] [place] [address], [place] [address] PCP - General Internal Medicine 04/10/13 Ballet Dancer Relationship Specialty Start Date End Date Faustina Cacramo MD [address] [place] [address], [place] [address] PCP - General Internal Medicine 04/10/13 Ballet Dancer Relationship Specialty Start Date End Date Faustina Carcamo MD [address] [place] [address], [place] [address] PCP - General Internal Medicine 04/10/13 Ballet Dancer Relationship Specialty Start Date End Date Faustina Carcamo MD [address] [place] [address], [place] [address] PCP - General Internal Medicine 04/10/13 Ballet Dancer Relationship Specialty Start Date End Date Faustina Carcamo MD [address] [place] [address], [place] [address] PCP - General Internal Medicine 04/10/13 Ballet Dancer Relationship Specialty Start Date End Date Faustina Carcamo MD [address] [place] [address], [place] [address] PCP - General Internal Medicine 04/10/13 Ballet Dancer Relationship Specialty Start Date End Date Faustina Carcamo MD [address] [place] [address], [place] [address] PCP - General Internal Medicine 04/10/13 Ballet Dancer Relationship Specialty Start Date End Date Faustina Carcamo MD [address] [place] [address], [place] [address] PCP - General Internal Medicine 04/10/13 Ballet Dancer Relationship Specialty Start Date End Date Faustina Carcamo MD [address] [place] [address], [place] [address] PCP - General Internal Medicine 04/10/13 Ballet Dancer Relationship Specialty Start Date End Date Faustina Carcamo MD [address] [place] [address], [place] [address] PCP - General Internal Medicine 04/10/13 Ballet Dancer Relationship Specialty Start Date End Date Faustina Carcamo MD [address] [place] [address], [place] [address] PCP - General Internal Medicine 04/10/13 Ballet Dancer Relationship Specialty Start Date End Date Faustina Carcamo MD [address] [place] [address], [place] [address] PCP - General Internal Medicine 04/10/13 Ballet Dancer Relationship Specialty Start Date End Date Faustina Carcamo MD [address] [place] [address], [place] [address] PCP - General Internal Medicine 04/10/13 Ballet Dancer Relationship Specialty Start Date End Date Faustina Carcamo MD [address] [facility] [place] [address] PCP - General Internal Medicine 04/10/13 Ballet Dancer Relationship Specialty Start Date End Date Faustina Carcamo MD [address] [facility] [place] [address] PCP - General Internal Medicine 04/10/13 Ballet Dancer Relationship Specialty Start Date End Date Mario Vazquez MBBS [address] [place] [address], [place] [address] PCP - General Internal Medicine 04/16/22 Ballet Dancer Relationship Specialty Start Date End Date No, Physician [facility] PCP - General 05/02/22 Ballet Dancer Relationship Specialty Start Date End Date Mario Vazquez MBBS [address] [place] [address], [place] [address] PCP - General Internal Medicine 04/16/22 Ballet Dancer Relationship Specialty Start Date End Date Mario Vazquez MBBS [address] [place] [address], [place] [address] PCP - General Internal Medicine 04/16/22 Ballet Dancer Relationship Specialty Start Date End Date Mario Vazquez MBBS [address] [place] [address], [place] [address] PCP - General Internal Medicine 04/16/22 Ballet Dancer Relationship Specialty Start Date End Date Faustina Carcamo MD [address] [facility] [place] [address] PCP - General Internal Medicine 04/10/13 Ballet Dancer Relationship Specialty Start Date End Date Faustina Carcamo MD [address] [facility] [place] [address] PCP - General Internal Medicine 04/10/13 Ballet Dancer Relationship Specialty Start Date End Date Mario Vazquez MBBS [address] [place] [id number] PCP - General Internal Medicine 04/16/22 Ballet Dancer Relationship Specialty Start Date End Date Faustina Carcamo MD [address] [place] [address] PCP - General Internal Medicine 04/10/13 Ballet Dancer Relationship Specialty Start Date End Date Faustina Carcamo MD [address] [place] [address] PCP - General Internal Medicine 04/10/13 Ballet Dancer Relationship Specialty Start Date End Date Faustina Carcamo MD [address] [place] [address] PCP - General Internal Medicine 04/10/13 Ballet Dancer Relationship Specialty Start Date End Date Faustina Carcamo MD [address] [place] [address] PCP - General Internal Medicine 04/10/13 Ballet Dancer Relationship Specialty Start Date End Date Faustina Carcamo MD [address] [place] [address] PCP - General Internal Medicine 04/10/13 Ballet Dancer Relationship Specialty Start Date End Date Faustina Carcamo MD [address] [place] [address] PCP - General Internal Medicine 04/10/13 Ballet Dancer Relationship Specialty Start Date End Date Faustina Carcamo MD [address] [place] [address] PCP - General Internal Medicine 04/10/13 Ballet Dancer Relationship Specialty Start Date End Date Faustina Carcamo MD [address] [facility] [place] [address] PCP - General Internal Medicine 04/10/13 Ballet Dancer Relationship Specialty Start Date End Date Faustina Carcamo MD [address] [facility] [place] [address] PCP - General Internal Medicine 04/10/13 Ballet Dancer Relationship Specialty Start Date End Date Faustina Carcamo MD [address] [facility] [place] [address] PCP - General Internal Medicine 04/10/13 Ballet Dancer Relationship Specialty Start Date End Date Faustina Cacramo MD [address] [facility] [place] [address] PCP - General Internal Medicine 04/10/13 Ballet Dancer Relationship Specialty Start Date End Date Faustina Carcamo MD [address] [facility] [place] [address] PCP - General Internal Medicine 04/10/13 Ballet Dancer Relationship Specialty Start Date End Date Faustina Carcamo MD [address] [facility] [place] [address] PCP - General Internal Medicine 04/10/13 Ballet Dancer Relationship Specialty Start Date End Date Faustina Carcamo MD [address] [facility] [place] [address] PCP - General Internal Medicine 04/10/13 Ballet Dancer Relationship Specialty Start Date End Date Faustina Carcamo MD [address] [facility] [place] [address] PCP - General Internal Medicine 04/10/13 Ballet Dancer Relationship Specialty Start Date End Date Faustina Carcamo MD [address] [facility] [place] [address] PCP - General Internal Medicine 04/10/13 Ballet Dancer Relationship Specialty Start Date End Date Faustina Carcamo MD [address] [facility] [place] [address] PCP - General Internal Medicine 04/10/13 Ballet Dancer Relationship Specialty Start Date End Date Faustina Carcamo MD [address] [facility] [place] [address] PCP - General Internal Medicine 04/10/13 Ballet Dancer Relationship Specialty Start Date End Date Faustina Carcamo MD [address] [facility] [place] [address] PCP - General Internal Medicine 04/10/13 Ballet Dancer Relationship Specialty Start Date End Date Faustina Carcamo MD [address] [facility] [place] [address] PCP - General Internal Medicine 04/10/13 Ballet Dancer Relationship Specialty Start Date End Date Faustina Carcamo MD [address] [facility] [place] [address] PCP - General Internal Medicine 04/10/13 Ballet Dancer Relationship Specialty Start Date End Date Faustina Carcamo MD [address] [facility] [place] [address] PCP - General Internal Medicine 04/10/13 Ballet Dancer Relationship Specialty Start Date End Date Faustina Carcamo MD [address] [facility] [place] [address] PCP - General Internal Medicine 04/10/13 Ballet Dancer Relationship Specialty Start Date End Date Faustina Carcamo MD [address] [place] [address] PCP - General Internal Medicine 04/10/13 Ballet Dancer Relationship Specialty Start Date End Date Faustina Carcamo MD [address] [place] [address] PCP - General Internal Medicine 04/10/13 Ballet Dancer Relationship Specialty Start Date End Date Faustina Carcamo MD [address] [place] [address] PCP - General Internal Medicine 04/10/13 Ballet Dancer Relationship Specialty Start Date End Date Faustina Carcamo MD [address] [place] [address] PCP - General Internal Medicine 04/10/13 Ballet Dancer Relationship Specialty Start Date End Date Faustina Carcamo MD [address] [place] [address] PCP - General Internal Medicine 04/10/13 Ballet Dancer Relationship Specialty Start Date End Date Faustina Carcamo MD [address] [place] [address] PCP - General Internal Medicine 04/10/13 Ballet Dancer Relationship Specialty Start Date End Date Faustina Carcamo MD [address] [facility] [place] [address] PCP - General Internal Medicine 04/10/13 Ballet Dancer Relationship Specialty Start Date End Date Faustina Carcamo MD [address] [facility] [place] [address] PCP - General Internal Medicine 04/10/13 Ballet Dancer Relationship Specialty Start Date End Date Faustina Carcamo MD [address] [facility] [place] [address] PCP - General Internal Medicine 04/10/13 Ballet Dancer Relationship Specialty Start Date End Date Faustina Carcamo MD [address] [facility] [place] [address] PCP - General Internal Medicine 04/10/13 Ballet Dancer Relationship Specialty Start Date End Date Faustina Carcamo MD [address] [facility] [place] [address] PCP - General Internal Medicine 04/10/13 Ballet Dancer Relationship Specialty Start Date End Date Faustina Carcamo MD [address] [facility] [place] [address] PCP - General Internal Medicine 04/10/13 Ballet Dancer Relationship Specialty Start Date End Date Faustina Carcamo MD [address] [facility] [place] [address] PCP - General Internal Medicine 04/10/13 Ballet Dancer Relationship Specialty Start Date End Date Faustina Carcamo MD [address] [facility] [place] [address] PCP - General Internal Medicine 04/10/13 Genaro Morales, MEDICAL STAFF SERVICES MANAGER.JOB DEVELOPER FOR DEAF ADULTS [address] [facility] [place] [address] Chief Crna Internal Medicine 07/23/24 Petra Beckman APRN.GRAIN DRIER [address] [place] [address] Chief Crna Internal Medicine 07/23/24 Ballet Dancer Relationship Specialty Start Date End Date Faustina Carcamo MD [address] [place] [address] PCP - General Internal Medicine 04/10/13 Genaro Morales, MEDICAL STAFF SERVICES MANAGER.JOB DEVELOPER FOR DEAF ADULTS [address] [place] [address] Chief Crna Internal Medicine 07/23/24 Petra Beckman MEDICAL STAFF SERVICES MANAGER.GRAIN DRIER [address] [place] [address] [facility] Internal Medicine 07/23/24 Ballet Dancer Relationship Specialty Start Date End Date Faustina Carcamo MD [address] [place] [address] PCP - General Internal Medicine 04/10/13 Genaro Morales, MEDICAL STAFF SERVICES MANAGER.JOB DEVELOPER FOR DEAF ADULTS [address] [place] [address] Chief Crna Internal Medicine 07/23/24 Petra Beckman APRN.GRAIN DRIER [address] [place] [address] [facility] Internal Medicine 07/23/[address] [place] [phone] Nutrition 07/27/24 Ballet Dancer Relationship Specialty Start Date End Date Faustina Carcamo MD [address] [place] [address] PCP - General Internal Medicine 04/10/13 Genaro Morales, MEDICAL STAFF SERVICES MANAGER.JOB DEVELOPER FOR DEAF ADULTS [address] [place] [address] Chief Crna Internal Medicine 07/23/24 Petra Beckman MEDICAL STAFF SERVICES MANAGER.GRAIN DRIER [address] [place] [address] Chief Crna Internal Medicine 07/23/[address] [place], [place] [phone] Nutrition 07/27/24 Ballet Dancer Relationship Specialty Start Date End Date Faustina Carcamo MD [address] [place] [address] PCP - General Internal Medicine 04/10/13 Genaro Morales, MEDICAL STAFF SERVICES MANAGER.JOB DEVELOPER FOR DEAF ADULTS [address] [place] [address] Chief Crna Internal Medicine 07/23/24 Petra Beckman MEDICAL STAFF SERVICES MANAGER.GRAIN DRIER [facility] [place] [address] Chief Crna Internal Medicine 07/23/[address] [place] [phone] Nutrition 07/27/24 Ballet Dancer Relationship Specialty Start Date End Date Faustina Carcamo MD [address] [place] [address] PCP - General Internal Medicine 04/10/13 Genaro Morales, MEDICAL STAFF SERVICES MANAGER.JOB DEVELOPER FOR DEAF ADULTS [address] [place] [address] Chief Crna Internal Medicine 07/23/24 Petra Beckman MEDICAL STAFF SERVICES MANAGER.GRAIN DRIER [address] [place] [address] [facility] Internal Medicine 07/23/[address] [place] [phone] Nutrition 07/27/24 Ballet Dancer Relationship Specialty Start Date End Date Faustina Carcamo MD [address] [place] [address] PCP - General Internal Medicine 04/10/13 Genaro Morales, MEDICAL STAFF SERVICES MANAGER.JOB DEVELOPER FOR DEAF ADULTS [address] [place] [address] Chief Crna Internal Medicine 07/23/24 Petra Beckman, MEDICAL STAFF SERVICES MANAGER.GRAIN DRIER [address] [place] [address] Chief Crna Internal Medicine 07/23/[address] [place] [address] Nutrition 07/27/24 Ballet Dancer Relationship Specialty Start Date End Date Faustina Carcamo MD [address] [place] [address] PCP - General Internal Medicine 04/10/13 Genaro Morales APRN.JOB DEVELOPER FOR DEAF ADULTS [address] [place] [address] Chief Crna Internal Medicine 07/23/24 Petra Beckman MEDICAL STAFF SERVICES MANAGER.GRAIN DRIER [address] [place] [address] Chief Crna Internal Medicine 07/23/[address] [place] [phone] [facility] 07/27/24 Ballet Dancer Relationship Specialty Start Date End Date Faustina Carcamo MD [address] [place] [address] PCP - General Internal Medicine 04/10/13 Genaro Morales MEDICAL STAFF SERVICES MANAGER.JOB DEVELOPER FOR DEAF AD[employer] [address] [place] [address] Chief Crna Internal Medicine 07/23/24 Petra Beckman MEDICAL STAFF SERVICES MANAGER.GRAIN DRIER [address] [place] [address] Chief Crna Internal Medicine 07/23/[address] [place] [address] [phone] Nutrition 07/27/24 Ballet Dancer Relationship Specialty Start Date End Date Faustina Carcamo MD [facility]0 [place], [place] [address]191 PCP - General Internal Medicine 04/10/13 Genaro Morales, MEDICAL STAFF SERVICES MANAGER.JOB DEVELOPER FOR DEAF ADULTS [address] [place] [address] [facility] Internal Medicine 07/23/24 Petra Beckman MEDICAL STAFF SERVICES MANAGER.GRAIN DRIER [address] [place] [address] [facility] Internal Medicine 07/23/[address] [place] [address] [facility] 07/27/24 Ballet Dancer Relationship Specialty Start Date End Date Faustina Carcamo MD [address] [place] [address] PCP - General Internal Medicine 04/10/13 Genaro Morales, MEDICAL STAFF SERVICES MANAGER.JOB DEVELOPER FOR DEAF ADULTS [facility] [place] [address] [facility] Internal Medicine 07/23/24 Petra Beckman MEDICAL STAFF SERVICES MANAGER.GRAIN DRIER [address] [place] [address] [facility] Internal Medicine 07/23/[address] [place] [phone] Nutrition 07/27/24 Ballet Dancer Relationship Specialty Start Date End Date Faustina Carcamo MD [address] [place] [address] PCP - General Internal Medicine 04/10/13 Genaro Morales, MEDICAL STAFF SERVICES MANAGER.JOB DEVELOPER FOR DEAF ADULTS [address] [facility] [place] [address] Chief Crna Internal Medicine 07/23/24 Petra Beckman MEDICAL STAFF SERVICES MANAGER.GRAIN DRIER [address] [facility] [address] Chief Crna Internal Medicine 07/23/[address] [address] [facility] 07/27/24 Ballet Dancer Relationship Specialty Start Date End Date Faustina Carcamo MD [address] [facility] [place] [address] PCP - General Internal Medicine 04/10/13 Genaro Morales, MEDICAL STAFF SERVICES MANAGER.JOB DEVELOPER FOR DEAF ADULTS [address] [facility] [place] [address] [facility] Internal Medicine 07/23/24 Petra Beckman MEDICAL STAFF SERVICES MANAGER.GRAIN DRIER [address] [facility] [place] [address] Chief Crna Internal Medicine 07/23/[address] [address] [facility] 07/27/24 Ballet Dancer Relationship Specialty Start Date End Date Faustina Carcamo MD [address] [facility] [place] [address] PCP - General Internal Medicine 04/10/13 Genaro Morales, MEDICAL STAFF SERVICES MANAGER.JOB DEVELOPER FOR DEAF ADULTS [address] [facility] [place] [address] Chief Crna Internal Medicine 07/23/24 Petra Beckman MEDICAL STAFF SERVICES MANAGER.GRAIN DRIER [address] [place] [address] [facility] Internal Medicine 07/23/[address] [place] [address] Nutrition 07/27/24 Ballet Dancer Relationship Specialty Start Date End Date Faustina Carcamo MD [address] [place] [address] PCP - General Internal Medicine 04/10/13 Genaro Morales, MEDICAL STAFF SERVICES MANAGER.JOB DEVELOPER FOR DEAF ADULTS [address] [place] [address] [facility] Internal Medicine 07/23/24 Petra Beckman MEDICAL STAFF SERVICES MANAGER.GRAIN DRIER [address] [place] [address] [facility] Internal Medicine 07/23/[address] [place] [address] Nutrition 07/27/24 Ballet Dancer Relationship Specialty Start Date End Date Faustina Carcamo MD [address] [place] [address] PCP - General Internal Medicine 04/10/13 Genaro Morales, MEDICAL STAFF SERVICES MANAGER.JOB DEVELOPER FOR DEAF ADULTS [address] [place] [address] Chief Crna Internal Medicine 07/23/24 Petra Beckman APRN.GRAIN DRIER [address] [facility] [place] [address] Chief Crna Internal Medicine 07/23/[address] [place] [address] [facility] 07/27/24 Ballet Dancer Relationship Specialty Start Date End Date Faustina Carcamo MD [address] [facility] [place] [address] PCP - General Internal Medicine 04/10/13 Genaro Morales APRN.JOB DEVELOPER FOR DEAF ADULTS [address] [facility] [place] [address] Chief Crna Internal Medicine 07/23/24 Petra Beckman APRN.GRAIN DRIER [address] [facility] [place] [address] Chief Crna Internal Medicine 07/23/[address] [place] [address] [facility] 07/27/24 Ballet Dancer Relationship Specialty Start Date End Date Faustina Carcamo MD [address] [facility] [place] [address] PCP - General Internal Medicine 04/10/13 Genaro Morales APRN.JOB DEVELOPER FOR DEAF ADULTS [address] [facility] [place] [address] Chief Crna Internal Medicine 07/23/24 Petra Beckman APRN.GRAIN DRIER [address] [facility] [place] [address] Chief Crna Internal Medicine 07/23/[address] [place] [address] Nutrition 07/27/24 Ballet Dancer Relationship Specialty Start Date End Date Faustina Carcamo MD [address] [place] [address] PCP - General Internal Medicine 04/10/13 Genaro Morales, MEDICAL STAFF SERVICES MANAGER.JOB DEVELOPER FOR DEAF ADULTS [address] [place] [address] [facility] Internal Medicine 07/23/[address] [place] [address] Nutrition 07/27/24 Petra Beckman APRN.GRAIN DRIER [address] [place] [address] [facility] Internal Medicine 11/06/24 Ballet Dancer Relationship Specialty Start Date End Date Faustina Carcamo MD [address] [place] [address] PCP - General Internal Medicine 04/10/13 Genaro Morales, MEDICAL STAFF SERVICES MANAGER.JOB DEVELOPER FOR DEAF ADULTS [address] [place] [address] [facility] Internal Medicine 07/23/24 Petra Beckman APRN.GRAIN DRIER [address] [place] [address] Chief Crna Internal Medicine 07/23/24 11/02/[address] [phone] Nutrition 07/27/24 Ballet Dancer Relationship Specialty Start Date End Date Faustina Carcamo MD [address] [place] [address] PCP - General Internal Medicine 04/10/13 Genaro Morales, MEDICAL STAFF SERVICES MANAGER.JOB DEVELOPER FOR DEAF ADULTS [facility] [place] [address] [facility] Internal Medicine 07/23/[address] [address] Nutrition 07/27/24 Petra Beckman APRN.GRAIN DRIER [facility] [place] [address] Chief Crna Internal Medicine 11/06/24 Ballet Dancer Relationship Specialty Start Date End Date Faustina Carcamo MD [facility] [place] [address] PCP - General Internal Medicine 04/10/13 Genaro Morales, MEDICAL STAFF SERVICES MANAGER.JOB DEVELOPER FOR DEAF ADULTS [address] [place] [address] [facility] Internal Medicine 07/23/[address] [place] [phone] Nutrition 07/27/24 Petra Beckman APRN.GRAIN DRIER [address] [place] [address] Chief Crna Internal Medicine 11/06/24 Ballet Dancer Relationship Specialty Start Date End Date Faustina Carcamo MD [address] [place] [address] PCP - General Internal Medicine 04/10/13 Genaro Morales, MEDICAL STAFF SERVICES MANAGER.JOB DEVELOPER FOR DEAF ADULTS [address] [place] [address] Chief Crna Internal Medicine 07/23/[address] [place] [address] [facility] 07/27/24 Petra Beckman APRN.GRAIN DRIER [address] [place] [address] Chief Crna Internal Medicine 11/06/24 Ballet Dancer Relationship Specialty Start Date End Date Faustina Carcamo MD [address] [place] [address] PCP - General Internal Medicine 04/10/13 Genaro Morales, MEDICAL STAFF SERVICES MANAGER.JOB DEVELOPER FOR DEAF ADULTS [address] [place] [address] Chief Crna Internal Medicine 07/23/24 Petra Beckman APRN.GRAIN DRIER [address] [place] [address] Chief Crna Internal Medicine 07/23/24 11/02/[address] [place] [address] [phone] Nutrition 07/27/24 Petra Beckman APRN.GRAIN DRIER [address] [place] [address] [facility] Internal Medicine 11/06/24 Ballet Dancer Relationship Specialty Start Date End Date Faustina Carcamo MD [address] [place] [address] PCP - General Internal Medicine 04/10/13 Genaro Morales, MEDICAL STAFF SERVICES MANAGER.JOB DEVELOPER FOR DEAF ADULTS [address] [place] [address] Chief Crna Internal Medicine 07/23/[address] [place] [address] Nutrition 07/27/24 Petra Beckman APRN.GRAIN DRIER [address] [place] [address] [facility] Internal Medicine 11/06/24 Ballet Dancer Relationship Specialty Start Date End Date Faustina Carcamo MD [address] [place] [address] PCP - General Internal Medicine 04/10/13 Genaro Morales, MEDICAL STAFF SERVICES MANAGER.JOB DEVELOPER FOR DEAF ADULTS [address] [place] [address] [facility] Internal Medicine 07/23/[address] [place] [address] Nutrition 07/27/24 Petra Beckman APRN.GRAIN DRIER [address] [facility] [place] [address] Chief Crna Internal Medicine 11/06/24 Ballet Dancer Relationship Specialty Start Date End Date Faustina Carcamo MD [address] [facility] [place] [place] [address] PCP - General Internal Medicine 04/10/13 Genaro Morales, GENI.JOB DEVELOPER FOR DEAF ADULTS [address] [facility] [place] [address] Chief Crna Internal Medicine 07/23/[address] [place] [address] Nutrition 07/27/24 Petra Beckman APRN.GRAIN DRIER [address] [facility] [place] [address] Chief Crna Internal Medicine 11/06/24 Ballet Dancer Relationship Specialty Start Date End Date Faustina Carcamo MD [address] [facility] [place] [address] PCP - General Internal Medicine 04/10/[address] [place] [address] Nutrition 07/27/24 Petra Beckman APRN.GRAIN DRIER [address] [facility] [place] [address] Chief Crna Internal Medicine 11/06/24 Genaro Morales APRN.JOB DEVELOPER FOR DEAF ADULTS [address] [facility] [place] [address] Chief Crna Internal Medicine 01/02/25 Ballet Dancer Relationship Specialty Start Date End Date Faustina Carcamo MD [address] [place] [address] PCP - General Internal Medicine 04/10/[address] [address] Nutrition 07/27/24 Petra Beckman APRN.GRAIN DRIER [address] [place] [address] Chief Crna Internal Medicine 11/06/24 Genaro Morales, GENI.JOB DEVELOPER FOR DEAF ADULTS [address] [place] [address] [facility] Internal Medicine 01/02/25 Ballet Dancer Relationship Specialty Start Date End Date Faustina Carcamo MD [address] [place] [address] PCP - General Internal Medicine 04/10/13 Genaro Morales, GENI.JOB DEVELOPER FOR DEAF ADULTS [address] [place] [address] Chief Crna Internal Medicine 07/23/24 01/01/[address] [address] Nutrition 07/27/24 Petra Beckman APRN.GRAIN DRIER [address] [place] [address] Chief Crna Internal Medicine 11/06/24 eGnaro Morales APRN.JOB DEVELOPER FOR DEAF ADULTS [address] [facility] [place] [address] Chief Crna Internal Medicine 01/02/25 Ballet Dancer Relationship Specialty Start Date End Date Faustina Carcamo MD [address] [facility] [place] [address] PCP - General Internal Medicine 04/10/[address] [address] Nutrition 07/27/24 Petra Beckman APRN.GRAIN DRIER [address] [facility] [place] [address] Chief Crna Internal Medicine 11/06/24 Genaro Morales APRN.JOB DEVELOPER FOR DEAF ADULTS [address] [facility] [place] [address] Chief Crna Internal Medicine 01/02/25 Ballet Dancer Relationship Specialty Start Date End Date Faustina Carcamo MD [address] [facility] [place] [address] PCP - General Internal Medicine 04/10/[address] [address] Nutrition 07/27/24 Petra Beckman APRN.GRAIN DRIER [address] [facility] [place] [address] Chief Crna Internal Medicine 11/06/24 Genaro Morales APRN.JOB DEVELOPER FOR DEAF ADULTS [address] [place] [address] [facility] Internal Medicine 01/02/25 FOR RECORDS PERTAINING TO [...] BE BASED ON THE PRIMARY CLINICAL RECORDS. [employer] [facility]. provides no warranty or guarantee of the accuracy or completeness of information in this document.
[2025-02-24 07:34] LABS: Internal QC Validated? YES +Cl - CLEAR BKGD; Pregnancy, Serum, hCG Quali. NEGATIVE Negative
[2025-02-24 07:35] LABS: Record Kit Lot#, Serum Preg. 947241
[2025-02-24 07:36] LABS: AST(SGOT) 29 U/L (<=31); Alanine Aminotransfer ALT/SGPT 43 U/L (<=34); Albumin, Serum 4.1 g/dL (3.5-5.0); Alkaline Phosphatase 68 U/L (35-104); Anion Gap 11 (5-15); BUN 7 mg/dL (4-19); BUN/Creat Ratio 11.5 RATIO (10-20); Calcium,Total 8.9 mg/dL (7.6-11.0); Carbon Dioxide 21.0 mmol/L (21.0-32.0); Chloride 107 mmol/L (98-108); Estimated Creatinine Clearance 165.37 ml/min (50-250); Globulin 2.7 g/dL (2.2-4.2); Glucose 95 mg/dL (70-99); Lipase 22 U/L (13-75); Potassium 4.0 mmol/L (3.3-5.1)
[2025-02-24 07:45] LABS: Color, Urine Yellow (Yellow); Glucose, Dipstick Normal (Normal); Ketone-Dipstick Negative (Negative); Leukocyte Esterase-Dipstick Negative /ul (Negative); Nitrite-Dipstick Negative (Negative); Occult Blood-Urine Negative /ul (Negative); Protein-Dipstick 15 mg/dl (Negative); Specific Gravity, Urine 1.010 (1.002-1.030); Urine Bilirubin Dipstick Negative (Negative)
[2025-02-24 07:56] LABS: Squamous Epithelial Cells - UA 0-5 SEEN /hpf (5-10)
[2025-02-24] MEDS: 0.9% Normal Saline (1000mL) 1,000 ML 1000 ML IV (08:03)
[2025-02-24 08:16] VITALS: BP 127/84; PULSE 78; RESP 18; TEMP 36.6; O2SAT 99
== END 2025-02-24 08:17 | disposition home or self-care (01) ==
PROVIDERS: Emergency Provider Emergency Medicine; PCP Internal Medicine; Visit Provider Emergency Medicine
DX: R10.9 Unspecified abdominal pain (principal); R11.0 Nausea; R19.7 Diarrhea, unspecified
CPT/HCPCS: 80053; 81001; 83690; 84703; 85025; 96361; 96374; 96375; 99283; J2405

== ENCOUNTER 2025-06-16 09:36 | Emergency (ER) | payer OTHER, MEDICAID, SELFPAY ==
[2025-06-16 09:37] VITALS: BP 167/129; PULSE 113; RESP 18; TEMP 37.1; O2SAT 98; BMI 52.4
--- NOTE | 2025-06-16 10:18 | EX.ED.DYSGE1 ---
HPI History of Present Illness Chief Complaint: Other, Pain/Inj Informant: patient Onset/Context/Timing Onset: Weeks (2) Context: Gradual Onset Timing: Continuous Quality: Shocking, burning Location: Right side of face and head Worsened by: Palpation, talking Relieved by: Nothing Narrative Narrative: Patient presents with right-sided facial pain that has been getting worse over the past 2 weeks. Patient states she was recently diagnosed with trigeminal neuralgia. Patient states she has been taking baclofen that was helping initially. Patient states it is no longer helping. Patient states her pain is shocking and burning. Patient states it is over the right side of her face. Patient states it is worse with talking and with palpation. Patient admits to some sweats and chills that come on in the nighttime. Patient admits to some nausea and vomiting due to the pain. Patient states her pain radiates into her neck. [facility] Medical History OCD (obsessive compulsive disorder) Panic disorder Morbid (severe) obesity due to excess calories Panic disorder with agoraphobia and moderate panic attacks DARLIN (generalized anxiety disorder) Periodic fever syndrome POTS (postural orthostatic tachycardia syndrome) Home Medications ?Medication ?Instructions ?Recorded ?Last Taken ?Type atenolol 25 mg tablet (Tenormin) 25 mg DAILY 01/18/16 Unknown History colchicine 0.6 mg capsule 0.6 mg PO DAILY 03/02/19 Unknown History fluoxetine 10 mg capsule 20 mg PO DAILY 03/02/19 Unknown History fluvoxamine 100 mg tablet 200 mg PO DAILY 03/02/19 Unknown History canakinumab (PF) 150 mg/mL subcut 06/07/24 Unknown History subcutaneous solution (Ilaris (PF)) naratriptan 2.5 mg tablet mg PO 01/21/25 Unknown History ondansetron 4 mg disintegrating 4 mg PO Q8H PRN PRN Nausea #10 tabs 02/24/25 Unknown Rx tablet hydrocodone-acetaminophen 5-325mg 1 tab PO Q6H PRN PRN Pain 3 days 06/16/25 Unknown Rx 5mg-325mg #10 TABLETS prednisone 20 mg tablet 60 mg (3 x 20 mg) PO DAILY #12 06/16/25 Unknown Rx TABLETS Allergy/AdvReac Type Severity Reaction Status Date / Time latex Allergy Hives Verified 06/16/25 09:37 topiramate (From Topamax) AdvReac Other Verified 06/16/25 09:37 Family History Other Diabetes Heart disease Lupus Social History Smoking Status: Never smoker alcohol intake: current alcohol intake frequency: holidays/special occasions only substance use type: marijuana ROS ROS ED Constitutional Constitutional ED: Reports chills and sweats; Denies fever(s) Eyes Eyes: Reports diplopia; Denies blurry vision ENT ENT ED: Denies rhinorrhea or sore throat Cardiovascular Cardiovascular: Denies chest pain or palpitations Respiratory/Chest Respiratory/Chest: Denies cough or dyspnea Gastrointestinal Gastrointestinal: Reports nausea and vomiting Genitourinary Genitourinary ED: Denies dysuria or hematuria Musculoskeletal Musculoskeletal: Reports neck pain; Denies back pain Integumentary Denies abscess or rash Neurologic Neurologic: Denies headache(s) or weakness Allergic/Immunologic Allergic/Immunologic ED: Denies mouth swelling or urticaria EXAM Physical Exam Const Vital Signs: 06/16/25 09:37 Temperature 98.7 F Temperature Source Oral Pulse Rate 113 H Respiratory Rate 18 Blood Pressure 167/129 H Blood Pressure Mean 141 Pulse Ox 98 Oxygen Delivery Method Room Air Positive well nourished and well developed Constitutional Narrative: BMI is 52.5. General Appearance ED: well developed and NAD HEENT Reports moist mucous membranes Eyes PERRL and EOMs intact bilaterally Neck supple and no JVD Resp normal respiratory effort and clear to auscultation bilaterally Cardio regular rate and regular rhythm GI non-tender and non-distended Palpation: soft Neuro oriented x3, CN's II-XII intact bilaterally and no sensory deficits noted Neuro Narrative: There is mild tenderness to palpation over the right temporal and preauricular area. There is no edema or ecchymosis. There is no bony crepitus or step-off. There is no facial weakness noted. Sensorium / Orientation: alert Motor Exam: strength 5/5 throughout Psych mental status grossly normal MDM MDM MDM Narrative Medical decision making narrative: Patient was advised that this is most likely a flareup of her trigeminal neuralgia. Patient was given a dose of Ralston and prednisone here. Patient was given prescriptions for short course of Ralston and prednisone. Patient was instructed to continue her baclofen as prescribed. Patient was instructed to follow-up with her primary care physician in 3 to 5 days. Patient was instructed to return if worse in any way. Patient understood and was agreeable with the plan. All questions were answered. Discharge Plan Triage Chief Complaint: Other, Pain/Inj ED Provider: Mohit Moura Dx/Rx/DC Orders Clinical Impression: Trigeminal neuralgia, Elevated blood pressure reading Instructions: ED Trigeminal Neuralgia Prescriptions: New hydrocodone-acetaminophen 5-325 mg tablet 1 tab PO Q6H PRN PRN (Reason: Pain) 3 Days Qty: 10 0RF prednisone 20 mg tablet 60 mg PO DAILY Qty: 12 0RF No Action naratriptan 2.5 mg tablet PO atenolol [Tenormin] 25 MG tablet 25 mg DAILY fluvoxamine 100 MG tablet 200 mg PO DAILY fluoxetine 10 MG capsule 20 mg PO DAILY colchicine 0.6 MG capsule 0.6 mg PO DAILY ondansetron 4 mg tablet,disintegrating 4 mg PO Q8H PRN PRN (Reason: Nausea) Qty: 10 0RF Ilaris (PF) 150 mg/mL solution subcut Primary Care Provider: Katie Fernández Referrals: Katie Fernández MD [Primary Care Provider, Internal Medicine] - 3-5 Days Print Language: Slovak Disposition Disposition: Home, Self Care
[2025-06-16] MEDS: HYDROcodone Bitartrate/Apap 5/325 Tablet PO (10:35)
[2025-06-16 10:36] VITALS: BP 158/101; PULSE 84; RESP 18; TEMP 37.1; O2SAT 98
== END 2025-06-16 10:46 | disposition home or self-care (01) ==
PROVIDERS: Emergency Provider Emergency Medicine; PCP Internal Medicine; Visit Provider Emergency Medicine
DX: G50.0 Trigeminal neuralgia (principal); R68.83 Chills (without fever); R03.0 Elevated blood-pressure reading, without diagnosis of hypertension; R11.2 Nausea with vomiting, unspecified; Z79.899 Other long term (current) drug therapy; H53.2 Diplopia
CPT/HCPCS: 99284

== ENCOUNTER 2025-08-11 08:42 | Emergency (ER) | payer OTHER, SELFPAY ==
[2025-08-11 08:44] VITALS: BP 188/126; PULSE 117; RESP 16; TEMP 36.8; O2SAT 98; BMI 52.9
--- NOTE | 2025-08-11 09:03 | CT_ITS ---
PROCEDURE: BRAIN/HEAD WITHOUT CONTRAST 08/11/2025 REASON FOR EXAM: L WEAKNESS TECHNIQUE: Procedure Code: CTBR Modality: CT Procedure: BRAIN/HEAD WITHOUT CONTRAST Coronal and Sagittal reconstruction series were provided. One or more dose reduction techniques were used (e.g., Automated exposure control, adjustment of the mA and/or kV according to patient size, use of iterative reconstruction technique. RADIATION DOSE SUMMARY: DLP: 745.49 mGycm COMPARISON: None available. FINDINGS: No acute hemorrhage. No acute infarct. No significant mass effect or brain herniation. The ventricular system and sulci/fissures are within normal limits of size and configuration for the patient's stated age. No extra-axial fluid collection. The basal cisterns are patent. The mastoid air cells are clear. The paranasal sinuses are predominantly clear. The calvarium appears intact. CT/Brain/Head without Contrast IMPRESSION: No CT evidence of acute intracranial hemorrhage, infarct, or significant mass e ffect. Reading Location: [id number]
--- NOTE | 2025-08-11 09:05 | EX.ED.DYSGE1 ---
HPI History of Present Illness Chief Complaint: Numb/Ting Narrative Narrative: Patient is a 34-year-old female with past medical history of stills disease is still a diagnosis of process ,OCD, panic disorder, POTS, anxiety, depression who presented to the emergency department with a chief complaint of left-sided weakness. She states that yesterday morning when she woke up she noted that she had a sensation of [id number] in her foot that progressively worsened into her hand and her leg. She notes that she thought to just watch this as she does have a history of [id number] based on one of the medications that she has been on in the past. She states that originally she thought this was secondary to low potassium therefore she tried to push electrolytes and noted that now she feels that her left arm and leg feel heavy and notes that today when she woke up as well she noted that she had the pins and needle sensation in her right hand and foot as well. Patient states that she is concerned that she potentially could have Guillain [place] syndrome. Patient denies any recent travels and states that she has had diarrhea starting back in June which is been going on for a significant mount time now and has not been unchanged she states that this will wax and wane. Denies any recent antibiotic use. Patient denies any tobacco use and any history of IV drug use states that she does drink socially [facility] Medical History OCD (obsessive compulsive disorder) Panic disorder Morbid (severe) obesity due to excess calories Panic disorder with agoraphobia and moderate panic attacks DARLIN (generalized anxiety disorder) Periodic fever syndrome POTS (postural orthostatic tachycardia syndrome) Home Medications ?Medication ?Instructions ?Recorded ?Last Taken ?Type fluoxetine 10 mg capsule 20 mg PO DAILY 03/02/19 Unknown History fluvoxamine 100 mg tablet 200 mg PO DAILY 03/02/19 Unknown History canakinumab (PF) 150 mg/mL 150 mg subcut QMONTH arthritis 06/07/24 Unknown History subcutaneous solution (Ilaris (PF)) naratriptan 2.5 mg tablet 2.5 mg PO PRN migraines 01/21/25 Unknown History ondansetron 4 mg disintegrating 4 mg PO Q8H PRN PRN Nausea #10 tabs 02/24/25 Unknown Rx tablet zonisamide 50 mg capsule 150 mg PO DAILY migraine prevention 08/11/25 Unknown History Allergy/AdvReac Type Severity Reaction Status Date / Time latex Allergy Hives Verified 08/11/25 08:47 Family History Other Diabetes Heart disease Lupus Social History Smoking Status: Never smoker alcohol intake: current alcohol intake frequency: holidays/special occasions only substance use type: marijuana ROS ROS ED ROS Narrative Constitutional: Denies fevers, chills, headaches Eyes: Denies double vision Cardiovascular: Denies chest pain Respiratory: Denies shortness of breath Abdomen: Denies abdominal pain nausea vomiting, denies black stools or blood in her stool, states that she is having normal bowel movements for herself : Denies any urinary symptoms states that she is urinating normally for self Neurological: Complains of numbness, tingling as noted above Musculoskeletal: Denies back pain Skin: Denies any rashes or lesions EXAM Physical Exam Narrative Exam Narrative: General: Patient was lying in bed rest comfortably did not appear to be in acute distress Head: Atraumatic, normocephalic Eyes: PERRL bilaterally, EOMI bilaterally, no conjunctival injection noted Neck: Soft, supple, trachea midline Cardiovascular: Patient tachycardic with a regular rhythm Respiratory: Clear to auscultation bilaterally Abdomen: Soft, nondistended, nontender to palpation Extremities: +5/5 strength noted in the right upper and lower extremity, +4/5 strength noted in the left lower and upper extremity Neurological: Patient likely has new that she was at [facility] year is 2024 sensation grossly intact bilaterally NIH of 0 GCS 15 Skin: Warm, dry, intact no rashes or lesions noted Const Vital Signs: 08/11/25 08:44 08/11/25 10:16 08/11/25 10:38 Temperature 98.2 F 97.9 F Temperature Source Oral Pulse Rate 117 H 111 H 99 Respiratory Rate 16 16 16 Blood Pressure 188/126 H 159/115 H 148/103 H Blood Pressure Mean 146 129 118 Pulse Ox 98 99 99 Oxygen Delivery Method Room Air Room Air MDM MDM MDM Narrative Medical decision making narrative: Patient is a 34-year-old female who presents to the emergency department the chief complaint of left-sided weakness, numbness and tingling as noted above. On the differential diagnose includes but not limited to TIA, ischemic stroke, hemorrhagic stroke, electrolyte abnormality, hypertensive emergency. Once workup is obtained reviewed she will be reevaluated. Patient's CBC reviewed and showed a white blood cell is normal at 10.9, heme was 13.8, plate count of 435. Patient sodium is 139, potassium normal at 4, creatinine was noted and normal at 0.68 anion gap is normal at 12. The patient's AST and ALT are 22 and 21 respectively serum test was negative urinalysis reviewed and showed negative nitrites negative leukocyte esterase. Patient CT head brain without contrast reviewed and showed no acute cranial hemorrhage infarct or significant mass effect. Given the patient's persistent left-sided weakness with the numbness and tingling on the right, her persistent tachycardia despite IV hydration will discuss case with hospitalist for admission. She is still concerned that she could still have Gullianin barre syndrome, however I told her that I do have low suspicion that she has developed this given her history however cannot fully rule this out. She will be given 0.1 mg of clonidine as well as she is persistently hypertensive. Discussed case with hospitalist Dr. Reid will accept the patient for admission. Patient was notified is agreeable this plan all course concerns answered. Lab Data Labs: Laboratory Results - last 24 hr 08/11/25 08/11/25 09:30 10:00 WBC 7.9 RBC 4.33 Hgb 13.8 Hct 39.5 MCV 91.2 MCH 31.9 MCHC 34.9 RDW Std Deviation 41.6 RDW Coeff of Derrell 12.6 Plt Count 435 MPV 9.5 Immature Gran % (Auto) 0.300 Neut % (Auto) 53.0 Lymph % (Auto) 36.0 [place] % (Auto) 8.4 Eos % (Auto) 1.5 Baso % (Auto) 0.8 Absolute Neuts (auto) 4.2 Absolute Lymphs (auto) 2.83 Nucleated RBC % 0 ESR 7 Sodium 139 Potassium 4.0 Chloride 109 H Carbon Dioxide 17.9 L Anion Gap 12 BUN 10 Creatinine 0.68 L Estim Creat Clear Calc 143.47 Est GFR (MDRD) Non-Af 119 BUN/Creatinine Ratio 14.2 Glucose 96 Calcium 9.5 Total Bilirubin 0.28 AST 22 ALT 21 Alkaline Phosphatase 74 Total Protein 7.0 Albumin 4.2 Globulin 2.8 Albumin/Globulin Ratio 1.5 Serum , Qual NEGATIVE Urine Color Straw Urine Clarity Clear Urine pH 6.5 Ur Specific [place] 1.015 Urine Protein 15 H Urine Glucose (UA) Normal Urine Ketones Negative Urine Occult Blood Negative Urine Nitrite Negative Urine Bilirubin Negative Urine Urobilinogen Normal Ur Leukocyte Esterase Negative Urine RBC 0 SEEN Urine WBC 0 SEEN Ur Squamous Epith Cells 0-5 SEEN Urine Bacteria RARE Urine Mucus 0 SEEN Radiography Diagnostic Testing: Clinical Impression(s) from Imaging Studies Brain CT 08/11/25 09:03 IMPRESSION: No CT evidence of acute intracranial hemorrhage, infarct, or significant mass effect. Reading Location: [id number] Discharge Plan Dx/Rx/DC Orders Clinical Impression: DARLIN (generalized anxiety disorder), Panic disorder, OCD (obsessive compulsive disorder), Left-sided weakness, Numbness and tingling Disposition Disposition: Acute Care Hospital [facility]
--- OUTSIDE RECORDS SUMMARY | 2025-08-11 09:30 | XMS RPT_ITS | CCD ---
Author Organization [facility] Care Team Providers Care Industrial Custodian Name Role Phone Faustina Carcamo MD Primary [...] Unavailable MINGO, DHANU R Attending Unavailable CASEY COONEY Attending Unavailable MINGO, DHANU R Primary Care Unavailable MINGO, DHANU R Referring Unavailable SUHAIL APARICIO Attending Unavailable SUHAIL APARICIO Referring Unavailable MINGO, DHANU R Primary Care Unavailable MARINA GOODRICH Attending Unavailable MINGO, DHANU R Primary Care Unavailable SELF, SELF Referring Unavailable MINGO, DHANU R Primary Care Unavailable MARINA GOODRICH Attending Unavailable MARINA GOODRICH Referring Unavailable MINGO, DHANU R Primary Care Unavailable MIRIAM ORDOÑEZ Attending Unavailable MINGO, DHANU R Primary Care Unavailable SELF, SELF Referring Unavailable JONATHAN PICKETT Attending Unavailable FAUSTINA CARCAMO Primary Care Unavailable UNGPRASERT, PATOMPONG Referring UnavailFAUSTINA Desai Primary Care Unavailable UNGPRASERT, PATOMPONG Referring UnavailFAUSTINA Desai Primary Care Unavailable Faustina Carcamo MD Primary Care Provider Neri EDUCATION ANALYST.VPK TEACHER, Genaro Unavailable Karuna EDUCATION ANALYST.SENIOR MORTGAGE UNDERWRITER, Petra Unavailable Crtalic-Lynnette RD Cindy Unavailable CRTALIC-LYNNETTE, CINDY Attending Unavail able TALAMPAS, FAUSTINA D Primary Care Unavailable NERI, GENARO Referring Unavailable Crtalic-Lynnette RD, Cindy Unavailable Karuna EDUCATION ANALYST.SENIOR MORTGAGE UNDERWRITER, Petra Unavailable Karuna EDUCATION ANALYST.SENIOR MORTGAGE UNDERWRITER, Petra Unavailable Karuna EDUCATION ANALYST.SENIOR MORTGAGE UNDERWRITER, Petra Unavailable Neri EDUCATION ANALYST.VPK TEACHER, Genaro Unavailable Neri EDUCATION ANALYST.VPK TEACHER, Genaro Unavailable Talampas, Faustina D Primary Care Unavailable Nicholas Santiago Attending Unavailable Mohit Moura Attending Unavailable Talampas, Faustina D Primary Care Unavailable Mohit Moura Attending Unavailable Talampas, Faustina D Primary Care Unavailable Mahesh Cannon Attending Unavailable Talampas, Faustina D Primary Care Unavailable Talampas, Faustina D Primary Care Unavailable Jerry Donis Attending Unavailable Braulio Beltrán Attending Unavailable Talampas, Faustina D Primary Care Unavailable Talampas, Faustina D Primary Care Unavailable Lisandro Rachel Attending Unavailable TALAMPAS, FAUSTINA D Primary Care Unavailable JIMY KRAFT Attending Unavailable TALAMPAS, FAUSTINA D Primary Care Unavailable TALAMPAS, FAUSTINA D Primary Care Unavailable SWANK, JIMY Referring Unavailable TALAMPAS, FAUSTINA D Primary Care Unavailable RADHA TOLEDO Attending Unavailable KEDAR VARELA Attending Unavailable TALAMPAS, FAUSTINA D Primary Care Unavailable SELF Referring Unavailable TALAMPAS, FAUSTINA D Primary Care Unavailable KARUNA PETRA Attending Unavailable TALAMPAS, FAUSTINA D Primary Care Unavailable SELF Referring Unavailable MICHELLE ROJAS Attending Unavailable TALAMPAS, FAUSTINA D Primary Care Unavailable TALAMPAS, FAUSTINA D Attending Unavailable TALAMPAS, FAUSTINA D Primary Care Unavailable TALAMPAS, FAUSTINA D Referring Unavailable TALAMPAS, FAUSTINA D Primary Care Unavailable MICHELLE ROJAS Referring Unavailable FREDY ELMORE Attending Unavailable TALAMPAS, FAUSTINA D Primary Care Unavailable AYAAN ROWLEY Attending Unavailable TALAMPAS, FAUSTINA D Primary Care Unavailable TALAMPAS, FAUSTINA D Attending Unavailable TALAMPAS, FAUSTINA D Primary Care Unavailable TALAMPAS, FAUSTINA D Attending Unavailable TALAMPAS, FAUSTINA D Primary Care Unavailable KEDAR VARELA Referring Unavailable TALAMPAS, FAUSTINA D Primary Care Unavailable UNGPRASERT, PATOMPONG Attending Unavailabl e TALAMPAS, FAUSTINA D Primary Care Unavailable ROSAURA [...] Unavailable TALAMPAS, FAUSTINA D Primary Care Unavailable MOON BEAVERS Attending Unavailable TALAMPAS, FAUSTINA D Primary Care Unavailable STEVEN HARRIS Referring Unavailable TALAMPAS, FAUSTINA D Primary Care Unavailable TALAMPAS, FAUSTINA D Primary Care Unavailable UNGPRASERT, PATOMPONG Referring Unavailabl e UNGPRASERT, PATOMPONG Attending Unavailabl e TALAMPAS, FAUSTINA D Primary Care Unavailable TALAMPAS, FAUSTINA D Attending Unavailable TALAMPAS, FAUSTINA D Primary Care Unavailable MOON BEAVERS Attending Unavailable Allergies Allergy Classification Reported Allergen(s) Allergy Type Date of Onset Reaction(s) Facility (20 sources) Latex; Translations: [LATEX, NATURAL RUBBER] Drug Allergy 3 [facility] Work Phone: (20 sources) Seasonal allergy; Translations: [SEASONAL ALLERGIES] Allergy to substance 1 [facility] (20 sources) Latex; Translations: [LATEX] Propensity to adverse reactions to drug 3 [facility] (20 sources) Banana Extract; Translations: [BANANA] Drug Allergy 3 Anaphylaxis, GI Upset, Itching [facility] (1 source) Latex Drug allergy (disorder) 5 [facility] (1 source) topiramate Drug Allergy 5 [facility] Medications Current Medications Medication Drug Class(es) Dates Sig (Normalized) Sig (Original) [id number] 200 actuat albuterol 0.09 mg/actuat metered dose [...] Comment on above: Take 1 tablet by [facility] three times a day as needed. benzonatate [...] on above: Take 1 capsule by mo [facility] three times daily as needed for cough for up to 7 days. 1 ml canakinumab 150 mg/ml injection (20 sources) Start: 09-15-19 24 End: 03-18-20 inject 150 mg by subcutaneous injection in the evening canakinumab, PF, (ILARIS, PF,) 150 mg/mL injection Indications: Periodic fever syndrome (HCC) Inject 150mg (1 vial) subcutaneously every 4 weeks. 1 mL 11 04/04/2025 1:58 PM EDT 03/19/2025 Active Start: 06-18-2022 End: 04-06-2023 canakinumab, PF, [...] ML) UNDER THE SKIN EVERY 4 WEEKS cephalexin 500 mg oral capsule (1 source) Cephalosporin Antibacterial Start: 04-29-20 End: 05-04-20 take 1 capsule by mouth four times daily cephALEXin (KEFLEX) 500 mg capsule Take 1 capsule by mouth four times daily for 5 days. 20 capsule 04/29/2025 05/04/2025 Active cholecalciferol 0.125 mg oral capsule (20 sources) Vitamin D Start: 02-27-20 take 1 capsule by mouth once daily Cholecalciferol, Vitamin D3, 125 mcg (5,000 unit) cap Take 1 capsule by mouth once daily. 02/26/2025 Active Start: 03-03-2020 End: 07-28-2023 take 1 capsule by mouth two times weekly cholecalciferol, Vitamin D3, (VITAMIN D3) 1,250 mcg (50,000 unit) cap capsule Indications: Vitamin D deficiency Take 1 capsule by mouth two times a week. 32 capsule 03/03/2020 07/28/2023 Discontinued (Other) Comment on above: Take 1 capsule by [facility] two times a week. sugar-free cholestyramine resin 4000 mg powder for oral suspension (14 sources) Bile Acid Sequestrant Start: 02-27-20 take 60-180 mL by mouth twice daily cholestyramine light 4 gram powder Take 2-4 g by mouth two times a day with meals. Mix with 60-180 mL of water or other noncarbonated liquid, highly fluid soup, applesauce or crushed pineapple before ingesting 201.6 g 1 02/26/2025 Active colchicine 0.6 mg oral tablet (20 sources) Start: 07-21-20 End: 07-30-20 take 1 tablet by mouth twice daily [...] Comment on above: TAKE 1 TABLET BY [facility] TWICE A DAY Take 1 tablet by [facility] twice daily. dexamethasone 4 mg oral tablet [...] oral capsule (4 sources) Tetracycline-class Drug Start: 022 End: take 1 capsule by mouth twice daily doxycycline hyclate (VIBRAMYCIN) 100 mg capsule Take 1 capsule by mouth twice daily for 10 days. 20 capsule 0 02/19/2022 03/01/2022 Active Comment on above: Take 1 capsule by [facility] twice daily for 10 days. [id number] 0.3 ml EPINEPHrine 1 mg/ml auto-injector (20 sources) alpha-Adrenergic Agonist, beta-Adrenergic Agonist, Catecholamine Start: 024 End: 025 EPINEPHrine (EPIPEN 2-ISIDRO) 0.3 mg/0.3 mL auto-injector Indications: Toxic effect of latex, accidental (unintentional), subsequent encounter Inject 0.3 mL intramuscularly as needed. For allergic reaction.Seek emergent medical care immediately after use.Disp:1 2-pakw/maintenance trainer 2 Each 10/26/2024 Active ergocalciferol 1.25 mg oral capsule (20 sources) Provitamin D2 Compound Start: 024 take 1 tablet by mouth every week ergocalciferol 50,000 unit capsule (VITAMIN D2, DRISDOL) Indications: Vitamin D deficiency Take 1 tablet by mouth once weekly. 12 capsule 3 04/03/2024 Active FLUoxetine 20 mg oral capsule (20 sources) Serotonin Reuptake Inhibitor Start: 025 take 1 capsule by mouth once daily FLUoxetine (PROZAC) 20 mg capsule Take 1 capsule by mouth once daily. 02/26/2025 Active Start: 04-25-2023 take 1 capsule by mo [facility] once daily FLUoxetine (PROZAC) 10 mg capsule [...] Take 2 tablets by mouth once daily. 02/26/2025 Active Start: 07-06-2023 take 2 tablets by mo [facility] once daily fluvoxaMINE (LUVOX) 100 mg tablet [...] once daily. Take 3 tablets by mo [facility] once daily. LAST FILL. PLEASE SCHEDULE APPOINTMENT [...] Comment on above: Take 2 tablets by [facility] once daily as needed for Anxiety. (from psychiatrist) ketorolac tromethamine 10 mg oral tablet (3 sources) Nonsteroidal Anti-inflammatory Drug, Cyclooxygenase Inhibitor Start: 3 End: 3 take 1 tablet by mouth every six hours as needed keTORolac (TORADOL) 10 mg tablet Take 1 tablet by mouth every 6 hours as needed for pain for up to 5 days. Take with food 20 tablet 0 05/20/2023 05/25/2023 Active Start: 05-20-2023 End: 05-20-2023 keTORolac 60 mg injection (T oradol) Comment on above: [facility] 6 hours as needed for pain for up to 5 days. Take with food levocetirizine dihydrochloride 5 mg oral tablet (20 sources) Histamine-1 Receptor Antagonist levocetirizine 5 mg tablet Take 5 mg by mouth as needed. Active Comment on above: Take 5 mg by mouth a s needed. levonorgestrel 0.536814 mg/hr intrauterine system (20 sources) Progestin, Progestin-containing [...] as directed. LORazepam 1 mg oral tablet (10 sources) Benzodiazepine Start: take 1 tablet by mouth once daily as needed LORazepam (ATIVAN) 1 mg tablet Take 1 mg by mouth once daily as needed. 02/19/2025 Active Start: 09-11-2024 End: 09-18-2024 take 1 tablet by mouth once daily as needed LORazepam (ATIVAN) 1 mg tablet Indications: Situational anxiety Take 1 tablet by mouth once daily as needed for up to 7 days. 7 tablet 09/11/2024 09/18/2024 Active 24 hr metFORMIN hydrochloride 500 mg extended release oral tablet (20 sources) Biguanide Start: 04-03-2024 End: 04-03-2025 take 50-59.9 tablets by mouth once daily metFORMIN ER (GLUCOPHAGE XR) 500 mg 24 hr tablet Indications: Class 3 severe obesity due to excess calories with body mass index (BMI) of 50.0 to 59.9 in adult, unspecified whether serious comorbidity present (HCC) Take 1 tablet by mouth daily with breakfast. 90 tablet 3 04/03/2024 Active metroNIDAZOLE 500 mg oral tablet (1 source) Nitroimidazole Antimicrobial Start: 01-11-2025 End: 01-18-2025 take 1 tablet by mouth three times daily metroNIDAZOLE (FLAGYL) 500 mg tablet Indications: Gastroenteritis Take 1 tablet by mouth three times a day for 7 days. 21 tablet 01/11/2025 01/18/2025 Active miSOPROStol 0.2 mg oral tablet (9 sources) Prostaglandin E1 Analog Start: 10-29-2021 End: 01-13-2022 miSOPROStol (CYTOTEC) 200 mcg tablet Insert 2 tabs vaginally the night prior to procedure and 2 tabs morning of procedure 4 tablet 0 10/29/2021 01/13/2022 Discontinued (Course of therapy completed) Comment on above: Insert 2 tabs vagina lly the night prior to procedure and 2 tabs morning of procedure montelukast 10 mg oral tablet (20 sources) Leukotriene Receptor Antagonist Start: 05-09-2020 End: 08-11-2022 take 1 tablet by mouth once daily at bedtime montelukast (SINGULAIR) 10 mg tablet Indications: Moderate persistent reactive airway disease with acute exacerbation (HCC) Take 1 tablet by mouth daily at bedtime. 90 tablet 3 08/11/2022 Active Comment on above: Take 1 tablet by [facility] daily at bedtime. naratriptan 2.5 mg oral tablet (20 sources) Serotonin-1b and Serotonin-1d Receptor Agonist Start: 05-20-2023 End: 10-25-2024 take 1 tablet by mouth every four [...] on above: Take 1 capsule by mo [facility] two times a day [...] on above: TAKE 1 TABLET BY [facility] EVERY DAY ondansetron 4 mg disintegrating oral tablet (20 sources) Serotonin-3 Receptor Antagonist Start: 02-25-20 take 1 tablet by mouth every eight hours as needed for nausea ondansetron orally disintegrating (ZOFRAN ODT) 4 mg disintegrating tablet Take by mouth. TAKE 1 TABLET BY MOUTH EVERY 8 HOURS NEEDED FOR NAUSEA 02/24/2025 Active Start: 02-13-2018 End: 01-13-2022 take 1 tablet [...] horacio th every 8 hours as needed. Oral Electrolytes (Pedialyte Freezer Pops) Solution (5 [...] tablet (20 sources) Proton Pump Inhibitor Start: 03-11-2025 take 1 tablet by mouth once daily pantoprazole DR (PROTONIX) 40 mg tablet Take 1 tablet by mouth once daily. 30 minutes before eating. 30 tablet 03/11/2025 Active Start: 07-04-2024 take 1 tablet by [facility] once daily before breakfast pantoprazole DR (PROTONIX) 40 mg tablet Take 1 tablet by mouth daily before breakfast. Take on empty stomach, 1/2 hr before meal. 30 tablet 07/04/2024 Active predniSONE 20 mg oral tablet (20 sources) Start: 03-11-2025 End: 03-20-2025 take 2 tablets by mouth once daily, then take 1.5 tablets by mouth once daily, then take 1 tablet by mouth once daily predniSONE (DELTASONE) 20 mg tablet Take 2 tablets by mouth once daily for 3 days, THEN 1.5 tablets once daily for 3 days, THEN 1 tablet once daily for 3 days. 14 tablet 03/11/2025 03/20/2025 Active Start: 11-22-2024 End: 12-18-2024 predniSONE (DELTASONE) 5 [...] until off. Take 1 tablet by [facility] once daily. TAKE 1 TABLET BY [facility] EVERY DAY Take 4 tabs daily x 3 days, then 3 tabs x 3 days, 2 tabs x 3 days, then 1 tab x3 days with food. 20 mg daily for 3 da ys, then 15 mg daily for 3 days, then 10 mg daily for 3 days then 5 mg daily for 30 days promethazine hydrochloride 25 mg oral tablet (20 sources) Phenothiazine Start: 01-10-20 25 take 25-50 [...] (palpitations or tremors). Syringe with Needle, Disp, (BD LUER-RAJI SYRINGE) 3 mL 18 x 1 1/2 (4 sources) Start: 04-26-2025 Syringe with Needle, Disp, (BD LUER-RAJI SYRINGE) 3 mL 18 x 1 1/2 Use to draw up Ilaris dose 1 each 04/26/2025 Active Syringe with Needle, Disp, (BD TUBERCULIN SYRINGE) 1 mL 27 x 1/2 (20 sources) Start: 04-26-2025 Syringe with Needle, Disp, (BD TUBERCULIN SYRINGE) 1 mL 27 x 1/2 Use to inject subcutaneous Ilaris dose 1 each 04/26/2025 Active Start: 02-25-2022 End: 12-08-2023 Syringe with Needle, Disp, ( BD TUBERCULIN SYRINGE) 1 mL 27 x 1/2 every 4 weeks. 2 Each 02/25/2022 12/08/2023 Discontinued (Other) Start: 02-25-2022 Syringe with N eedle, Disp, (BD TUBERCULIN SYRINGE) 1 mL 27 x 1/2 every 4 weeks. 2 Each 02/25/2022 Active Comment on above: every 4 weeks. 0.9 ml tocilizumab 180 mg/ml prefilled syringe [...] 6 WHEELS - RED (20 sources) Start: 2023 WALKER ROLLATOR SEAT WITH [...] Take 3-4 caps at bedtime. 120 capsule 04/13/2022 Active Comment on above: Take 3-4 [...] congestion 1 Bottle 1 04/18/2020 06/09/2020 Discontinued cyclobenzaprine hydrochloride 10 mg oral tablet (1 [...] extended release oral tablet (3 sources) Uncompetitive D-suokov-A-aspartate Receptor Antagonist, Sigma-1 Agonist Start: 2022 End: 2022 take 1 tablet by mouth twice daily dextromethorphan-guai FENesin (MUCINEX DM) 30-600 mg per tablet Take 1 tablet by mouth twice daily for 7 days. 14 tablet 0 04/18/2023 04/25/2023 Comment on above: Take 1 tablet by [facility] twice daily for 7 days. diphenhydrAMINE hydrochloride [...] MIGRAINE HEADACHE. fluconazole 150 mg oral tablet (4 sources) Azole Antifungal Start: 2024 End: 2024 take 1 tablet by mouth once fluconazole (DIFLUCAN) 150 mg tablet Take 1 tablet by mouth one time only for 1 dose. 1 tablet 04/29/2025 04/29/2025 Start: 07-19-2024 End: 07-19-2024 take 1 tablet by mouth once fluconazole [...] horacio one time only for 1 dose. iohexol (OMNIPAQUE) 350 MG/ML injection 1-171 mL (1 source) Start: 2 End: 2 iohexol (OMNIPAQUE) 350 MG/ML injection 1-171 mL ketoconazole 20 mg/ml topical cream (4 sources) Azole Antifungal Start: 9 End: 2 ketoconazole (NIZORAL) 2 % cream Indications: Perleche with candidiasis Apply 1 application to affected area once daily. Use 1 week past rash resolving as directed 30 g 2 09/20/2018 09/16/2021 Discontinued meloxicam 15 mg oral tablet (20 sources) Nonsteroidal Anti-inflammatory Drug Start: 1 End: 2 take 1 tablet by mouth once daily [...] Comment on above: Take 1 tablet by [facility] once daily as needed. methylPREDNISolone (9 sources) [...] day 50 g 1 10/09/2019 06/24/2020 Discontinued Pedialyte (PEDIALYTE) soln (20 sources) Start: 04-22-2021 End: 06-03-2022 take 948 mL by mouth once daily Pedialyte (PEDIALYTE) soln Indications: POTS (postural orthostatic tachycardia syndrome) Take 948 mL by mouth once daily. Diagnosis: POTS I49.8 [id number] mL 11 04/22/2021 06/03/2022 Discontinued (Discontinued by Patient) Start: 04-22-2021 take 948 mL by mouth once daily Pedialyte (PEDIALYTE) soln Indications: POTS (postural orthostatic tachycardia syndrome) Take 948 mL by mouth once daily. Diagnosis: POTS I49.8 39589 mL 11 04/22/2021 Active Start: 04-22-2021 End: 04-22-2022 take 948 mL by mouth once daily Pedialyte (PEDIALYTE) soln Indications: POTS (postural orthostatic tachycardia syndrome) Take 948 mL by mouth once daily. Diagnosis: POTS I49.8 73087 mL 11 04/22/2021 04/22/2022 Active Start: 03-07-2020 End: 02-09-2021 take 500 mL by mouth once daily Pedialyte (PEDIALYTE) soln Indications: Recurrent fever , Diarrhea due to drug , Inappropriate sinus node tachycardia (HCC) , Neurocirculatory asthenia Take 500 mL by mouth once daily. As directed 44491 mL 11 03/07/2020 02/09/2021 Discontinued Comment on [...] on above: Take 1 capsule by mo [facility] daily at bedtime. 10 ml sodium chloride 9 mg/ml injection (1 source) Start: 06-28-2022 End: 06-28-2022 sodium chloride (PF) 0.9 % injection 1-100 mL Start: 06-28-2022 End: 06-28-2022 sodium chloride (PF) 0.9 % i njection 1-100 mL Syringe with Needle, Disp, 1 mL 27 x 1/2 (20 sources) Start: 04-24-2024 End: 04-26-2025 Syringe with Needle, Disp, 1 mL 27 x 1/2 Use to inject subcutaneous Ilaris dose 1 Each 04/04/2025 1:58 PM EDT 04/24/2024 04/26/2025 Discontinued Start: 04-24-2024 Syringe with N eedle, Disp, 1 mL 27 x 1/2 Use to inject subcutaneous Ilaris dose 1 Each 04/04/2025 1:58 PM EDT 04/24/2024 Active Start: 04-24-2024 Syringe with N eedle, Disp, 1 mL 27 x 1/2 Use to inject subcutaneous Ilaris dose 1 Each 03/04/2025 2:24 PM EDT 04/24/2024 Active Start: 04-24-2024 Syringe with N eedle, Disp, 1 mL 27 x 1/2 Use to inject subcutaneous Ilaris dose 1 Each 02/06/2025 2:15 PM EDT [...] x 1 1/2 (20 sources) Start: 04-24-2024 End: 04-26-2025 Syringe with Needle, Disp, 3 mL 18 x 1 1/2 Use to draw up ilaris dose 1 Each 04/04/2025 1:58 PM EDT 04/24/2024 04/26/2025 Discontinued Start: 04-24-2024 Syringe with N eedle, Disp, 3 mL 18 x 1 1/2 Use to draw up ilaris dose 1 Each 04/04/2025 1:58 PM EDT 04/24/2024 Active Start: 04-24-2024 Syringe with N eedle, Disp, 3 mL 18 x 1 1/2 Use to draw up ilaris dose 1 Each 03/04/2025 2:24 PM EDT 04/24/2024 Active Start: 04-24-2024 Syringe [...] up ilaris dose 1 Each 04/24/2024 Active Syringe, Disposable, (B-D SYRINGE LUER-RAJI 1CC) 1 [...] Each 08/12/2022 02/16/2023 Discontinued Start: 08-12-2022 Syringe, Jeramyo linda, (B-D SYRINGE LUER-RJAI 1CC) 1 mL USE DIRECTED WITH ILARIS 1 Each 08/12/2022 Active Comment on above: USE DIRECTED WITH ILARIS Problems Active Problems Problem Classification Problem Date Documented Da te Episodic/Chronic Administrative/social admission (2 sources) Mobility poor; Translations: [...] initial encounter] Episodic Contraceptive and procreative management (15 sources) [...] Onset: 6 04-08-2016 Chronic Headache; including migraine (2 sources) Headache; including migraine; Translations: [Acute nonintractable headache, [...] sources) Vomiting; Translations: [Vomiting, unspecified] 09-17-2014 Episodic Nutritional deficiencies (20 sources) Vitamin D [...] Translations: [Chondrocostal junction syndrome [Tietze]] Episodic Other circulatory disease (1 source) Other specified symptoms and signs involving the circulatory and respiratory systems; Translations: [Labile blood pressure] Onset: 5 Episodic Other connective tissue disease (1 source) Pain in left foot; Translations: [Pain in left foot] 08-05-2021 Episodic Other connective tissue disease (1 source) Muscle pain; Translations: [Myalgia, unspecified site] 10-16-2024 Episodic Other connective tissue disease (1 source) Muscle weakness; Translations: [Muscle weakness (generalized)] 11-14-2024 Episodic Other connective tissue disease (1 source) Myalgia, unspecified site; Translations: [Myalgias] Onset: 5 Episodic Other female genital disorders (1 source) Abnormal uterine bleeding; Translations: [Abnormal uterine and vaginal bleeding, unspecified] 01-17-2024 Chronic Other female genital disorders (1 source) Cyst of vagina; Translations: [Other specified noninflammatory disorders of vagina] 04-26-2025 Episodic Other female genital disorders (1 source) Other specified noninflammatory disorders of vagina; Translations: [Vaginal wall cyst] Onset: 5 Episodic Other gastrointestinal disorders (1 source) Irritable bowel [...] Translations: [Pleurodynia] Episodic Other lower respiratory disease (1 source) Dyspnea; Translations: [Shortness of breath] Episodic Other lower respiratory disease (1 source) Wheezing; Translations: [Wheezing] Episodic Other lower respiratory disease (2 sources) Cough; Translations: [Acute cough] 09-25-2024 Episodic Other nervous system disorders (1 source) Atypical facial pain; Translations: [Atypical facial pain] 08-21-2023 Episodic Other nervous system disorders (1 source) Atypical facial pain; Translations: [Atypical face pain] Onset: 5 Episodic Other nervous system disorders (1 source) Trigeminal neuralgia; Translations: [Trigeminal neuralgia of right side of face] Onset: 5 Episodic Other non-traumatic joint disorders (20 sources) [...] (morbid obesity) (HCC)] Onset: 0 Chronic Other skin disorders (2 sources) Hidradenitis suppurativa; Translations: [Hidradenitis suppurativa] 04-26-2025 Episodic Other skin disorders (1 source) Hidradenitis suppurativa; Translations: [Hidradenitis suppurativa] Onset: 5 Episodic Other upper respiratory disease (1 source) Allergic rhinitis due to pollen; Translations: [Allergic rhinitis due to pollen] 12-08-2023 Chronic Other upper respiratory infections (2 sources) Bacterial sinusitis; Translations: [Chronic sinusitis, unspecified] 12-14-2023 Chronic Otitis media and related conditions (1 source) Acute left otitis media; Translations: [Otitis media, unspecified, left ear] Episodic Poisoning by nonmedicinal substances (1 source) Accidental poisoning; Translations: [Toxic effect of latex, accidental (unintentional), subsequent encounter] 12-08-2023 Episodic Residual codes; unclassified (20 sources) Obstructive sleep apnea syndrome; Translations: [Obstructive sleep apnea (adult) (pediatric)] Onset: 6 03-10-2016 Chronic Residual codes; unclassified (1 source) Treatment not available; Translations: [Procedure and treatment not carried out for other reasons] 04-18-2023 Episodic Residual codes; unclassified (1 source) Bilateral lower limb edema; Translations: [Localized edema] 01-02-2024 Episodic Rheumatoid arthritis and related disease (20 sources) Systemic onset juvenile chronic arthritis; Translations: [Juvenile rheumatoid arthritis with systemic onset, unspecified site] Onset: 3 Resolved: 4 04-06-2023 Chronic Screening and history of mental health and substance abuse codes (1 source) History of eating disorder; Translations: [Personal history of other mental and behavioral disorders] 05-14-2024 Episodic Sexually transmitted infections (not HIV or hepatitis) (3 sources) Human papillomavirus deoxyribonucleic acid test positive, high risk on cervical specimen; Translations: [Cervical high risk human papillomavirus (HPV) DNA test positive] 02-27-2024 Episodic Skin and subcutaneous tissue infections (3 sources) Furuncle; Translations: [Furuncle, unspecified] Onset: 5 04-26-2025 Episodic Spondylosis; intervertebral disc disorders; other back problems (20 sources) Chronic low back pain; Translations: [Chronic midline low back pain without sciatica] Onset: 0 05-08-2020 Episodic Superficial injury; contusion (3 sources) Contusion of scalp; Translations: [Contusion of scalp, initial encounter] Onset: 2 Episodic Unclassified (2 sources) Acute cough; Translations: [Acute cough] Onset: 2 Unclassified (1 source) Bulimia nervosa, unspecified severity; Translations: [Bulimia nervosa, unspecified severity] Onset: 6 Urinary tract infections (1 source) Acute cystitis; Translations: [Acute cystitis without hematuria] 05-25-2023 Episodic Viral infection (1 source) Disease caused by 2019-nCoV; Translations: [COVID-19] Episodic Past or Other Problems Problem Classification Problem Date Documented Da te Episodic/Chronic Abdominal pain (10 sources) Right lower quadrant pain; Translations: [Right lower quadrant pain] Onset: 06-28-2022 Episodic Acute and chronic tonsillitis (2 sources) Tonsillitis; Translations: [Acute tonsillitis, unspecified] Onset: 11-23-2024 11-22-2024 Episodic Asthma (20 sources) Exacerbation of moderate persistent asthma; Translations: [Moderate persistent asthma with (acute) exacerbation] Resolved: 03-10-2021 Chronic Blindness and vision defects (20 sources) Diplopia; Translations: [Diplopia] Onset: 12-25-2015 12-25-2015 Episodic Cancer of other female genital organs (19 sources) Cervicovaginal cytology: Low grade squamous intraepithelial lesion; Translations: [Low grade squamous intraepithelial lesion on cytologic smear of vagina (LGSIL)] Onset: 02-27-2025 02-27-2025 Episodic Conditions associated with dizziness or vertigo (1 source) Dizziness and giddiness; Translations: [Dizziness and giddiness] Onset: 11-15-2024 Episodic Fracture of lower limb (20 sources) Closed fracture of navicular bone of foot; Translations: [Nondisplaced fracture of navicular [scaphoid] of left foot, initial encounter for closed fracture] Onset: 09-29-2021 09-29-2021 Episodic Immunizations and screening for infectious disease (5 sources) Encounter for immunization; Translations: [Need for prophylactic vaccination and inoculation against other viral diseases] Onset: 02-20-2025 03-15-2024 Episodic Intracranial injury (3 sources) Concussion with no loss of consciousness; Translations: [Concussion without loss of consciousness, subsequent encounter] Onset: 05-05-2022 Episodic Mood disorders (5 sources) Mood disorders Onset: 04-16-2022 Resolved: 05-05-2022 04-16-2022 Neoplasms of unspecified nature or uncertain behavior (20 sources) Thrombocytosis; Translations: [Thrombocytosis] Onset: 09-01-2016 09-01-2016 Episodic Noninfectious gastroenteritis (3 sources) Gastroenteritis; Translations: [Noninfective gastroenteritis and colitis, unspecified] Onset: 01-09-2025 01-09-2025 Episodic Nonspecific chest pain (6 sources) Symptom: chest wall; Translations: [Other chest pain] Onset: 05-19-2023 Episodic Other circulatory disease (1 source) Postural orthostatic tachycardia syndrome ; Translations: [Postural orthostatic tachycardia syndrome (POTS)] Onset: 08-20-2024 Episodic Other connective tissue disease (20 sources) Fibromyalgia; Translations: [Fibromyalgia] Onset: 11-15-2013 11-15-2013 Episodic Other connective tissue disease (1 source) Fibromyalgia; Translations: [Fibromyalgia] Onset: 11-15-2013 Episodic Other connective tissue disease (1 source) Pain in left finger(s); Translations: [Pain in left finger(s)] Onset: 02-01-2025 Episodic Other gastrointestinal disorders (1 source) Diarrhea, unspecified; Translations: [Diarrhea, unspecified type] Onset: 02-26-2025 Episodic Other gastrointestinal disorders (1 source) Heartburn; Translations: [Heartburn] Onset: 07-04-2024 Episodic Other infections; including parasitic (20 sources) Relapsing fever; 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, unspecified] Onset: 05-01-2018 05-01-2018 Episodic Other infections; including parasitic (20 sources) Tick-borne relapsing fever; 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, unspecified] Onset: 05-01-2018 05-01-2018 Episodic Other infections; including parasitic (20 sources) Pattern of fever - finding; 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, unspecified] Onset: 05-01-2018 05-01-2018 Episodic Other lower respiratory disease (6 sources) Cough; Translations: [Cough, unspecified type] Onset: 09-25-2024 Episodic Other nervous system disorders (20 sources) Numbness and tingling sensation of skin; Translations: [Anesthesia of skin] Onset: 12-25-2015 12-25-2015 Episodic Other nervous system disorders (20 sources) Tremor; Translations: [Tremor, unspecified] Onset: 12-25-2015 12-25-2015 Episodic Other nervous system disorders (20 sources) Muscle twitch; Translations: [Fasciculation] Onset: 04-06-2016 04-06-2016 Episodic Other non-traumatic joint disorders (20 [...] left foot] Onset: 11-10-2021 11-10-2021 Episodic Other screening for suspected conditions (not mental disorders or infectious disease) (10 sources) Serum lipid levels - finding; Translations: [Other specified abnormal findings of blood chemistry] Onset: 05-19-2023 Episodic Other upper respiratory infections (14 sources) Acute upper respiratory infection, unspecified; Translations: [Sore throat symptom] Onset: 05-26-2022 Episodic Pleurisy; pneumothorax; pulmonary collapse (2 sources) Pleurisy; Translations: [Pleurisy] Onset: 08-20-2024 09-06-2024 Episodic Sprains and strains (20 sources) Lumbar sprain; Translations: [Sprain of ligaments of lumbar spine, initial encounter] Onset: 12-27-2013 12-27-2013 Episodic Unclassified (1 source) Acute cough; Translations: [Acute cough] Onset: 05-26-2022 Unclassified (1 source) Injury of left wrist 10-24-2024 Results Test Name Value Interpretation Reference Range Facil ity 25(OH)D3 SerPl-ncon 2024 25-hydroxyvitamin D3 [Mass/Vol] 16.3 ng/mL Low 31.0-80.0 [facility] Comment on above: Order Comment: Speci men Type: BLOOD SPECIMENOrdering Facility: [facility] Address: [address] [place] [address] Result Comment: Clas sification of 25 [place] Vitamin D status:Deficiency/Insufficiency: < or = 30 ng/ml.Sufficiency/Optimal Levels: 31-80 ng/mLToxicity: > 100 ng/mL.Test performed by chemiluminescent immunoassay. Performed By: #### 1 989-3 ####[facility] LABCLIA [id number] [place] [address] [place] Basic metabolic 2000 panelon 06-25-2025 Anion gap [Moles/Vol] 12 mmol/L Normal 8-15 [facility] Comment on above: Order Comment: Speci men Type: BLOOD SPECIMENOrdering Facility: [facility] Address: [address] [place] [address] Performed By: #### 1 988-5, 28690-9, 04501-2, 2132-04 ####[facility] LABCLIA [id number] [place] [address] [place] Calcium [Mass/Vol] 9.5 mg/dL Normal 8.5-10.2 [facility] Comment on above: Order Comment: Speci men Type: BLOOD SPECIMENOrdering Facility: [facility] Address: [address] [place] [address] Performed By: #### 1 988-5, 83277-9, 31321-0, 2132-04 ####[facility] LABCLIA [id number] [place] [address] [place] Chloride [Moles/Vol] 106 mmol/L Normal 98-107 [facility] Comment on above: Order Comment: Speci men Type: BLOOD SPECIMENOrdering Facility: [facility] Address: [address] [place] [address] Performed By: #### 1 988-5, 26192-9, 42257-3, 2132-04 ####[facility] LABCLIA [id number] [place] [address] [place] CO2 [Moles/Vol] 25 mmol/L Normal 22-30 [facility] Comment on above: Order Comment: Speci men Type: BLOOD SPECIMENOrdering Facility: [facility] Address: [address] [place] [address] Performed By: #### 1 988-5, 42529-7, 64195-5, 2132-04 ####[facility] LABCLIA [id number] [place] [address] [place] Creatinine [Mass/Vol] 0.62 mg/dL Normal 0.58-0.96 [facility] Comment on above: Order Comment: Speci men Type: BLOOD SPECIMENOrdering Facility: [facility] Address: [address] [place] [address] Performed By: #### 1 988-5, 42791-2, 13415-7, 2132-04 ####[facility] LABCLIA [id number] [place] [address] [place] eGFRcr SerPlBld CKD-EPI 2020 122 mL/min/1.73m??? Normal >=60 [facility] Comment on above: Order Comment: Speci men Type: BLOOD SPECIMENOrdering Facility: [facility] Address: [address] [place] [address] Result Comment: Imelda mated Glomerular Filtration Rate [...] actual GFR. Performed By: #### 1 988-5, 83176-6, 90995-8, 2132-04 ####[facility] LABCLIA [id number] [place] [id number] [place] Glucose [Mass/Vol] 108 mg/dL High 74-99 [facility] Comment on above: Order Comment: Speci men Type: BLOOD SPECIMENOrdering Facility: [facility] Address: [address] [place] [address] Result Comment: The [place] [employer] (ADA) provides guidance for cutoff [...] Standards of Medical Care in Diabetes 2016, [place] [employer]. Diabetes Care. 2016.39(Suppl 1). Performed By: #### 1 988-5, 86826-2, , 2132-04 ####[facility] LABCLIA [id number] [place] [address] [place] Potassium [Moles/Vol] 4.1 mmol/L Normal 3.7-5.1 [facility] Comment on above: Order Comment: Speci men Type: BLOOD SPECIMENOrdering Facility: [facility] Address: [address] [place] [address] Performed By: #### 1 988-5, 48314-7, 68792-0, 2132-04 ####[facility] LABCLIA [id number] [place] [address] [place] Sodium [Moles/Vol] 143 mmol/L Normal 136-144 [facility] Comment on above: Order Comment: Speci men Type: BLOOD SPECIMENOrdering Facility: [facility] Address: [address] [place] [address] Performed By: #### 1 988-5, 19554-9, 79631-2, 2132-04 ####[facility] LABCLIA [id number] [place] [address] [place] Urea nitrogen [Mass/Vol] 8 mg/dL Normal 7-21 [facility] Comment on above: Order Comment: Speci men Type: BLOOD SPECIMENOrdering Facility: [facility] Address: [address] [place] [address] Performed By: #### 1 988-5, 62723-3, 74644-5, 2132-04 ####[facility] LABCLIA [id number] [place] [address] [place] CBC W Auto Differential pane l (Bld)on 06-25-2025 Basophils (Bld) [#/Vol] 0.04 10*3/uL Normal <0.11 [facility] Comment on above: Order Comment: Speci men Type: BLOOD SPECIMENOrdering Facility: [facility] Address: [address] [place] [address] Performed By: #### 5 7021-8, 4536-7 ####[facility] LABCLIA [id number] [place] [address] [place] Basophils/100 WBC (Bld) 0.6 % Normal [facility] Comment on above: Order Comment: Speci men Type: BLOOD SPECIMENOrdering Facility: [facility] Address: [address] [place] [address] Performed By: #### 5 7021-8, 7-7 ####[facility] LABCLIA [id number] [place] [address] [place] Differential cell count method Nom (Bld) Auto Normal [facility] Comment on above: Order Comment: Speci men Type: BLOOD SPECIMENOrdering Facility: [facility] Address: [address] [place] [address] Performed By: #### 5 7021-8, 7 ####[facility] LABCLIA [id number] [place] [address] [place] Eosinophils (Bld) [#/Vol] 0.09 10*3/uL Normal <0.46 [facility] Comment on above: Order Comment: Speci men Type: BLOOD SPECIMENOrdering Facility: [facility] Address: [address] [place] [address] Performed By: #### 5 7021-8, 7 ####[facility] LABCLIA [id number] [place] [address] [place] Eosinophils/100 WBC (Bld) 1.3 % Normal [facility] Comment on above: Order Comment: Speci men Type: BLOOD SPECIMENOrdering Facility: [facility] Address: [address] [place] [address] Performed By: #### 5 7021-8, 7 ####[facility] LABCLIA [id number] [place] [address] [place] Erythrocyte distribution width (RBC) [Ratio] 12.1 % Normal 11.5-15.0 [facility] Comment on above: Order Comment: Speci men Type: BLOOD SPECIMENOrdering Facility: [facility] Address: [address] [place] [address] Performed By: #### 5 7021-8, 4536-7 ####[facility] LABCLIA [id number] [place] [address] [place] Hematocrit (Bld) [Volume fraction] 43.5 % Normal 36.0-46.0 [facility] Comment on above: Order Comment: Speci men Type: BLOOD SPECIMENOrdering Facility: [facility] Address: [address] [place] [address] Performed By: #### 5 7021-8, 4536-7 ####[facility] LABCLIA [id number] [place] [address] [place] Hemoglobin (Bld) [Mass/Vol] 13.8 g/dL Normal 11.5-15.5 [facility] Comment on above: Order Comment: Speci men Type: BLOOD SPECIMENOrdering Facility: [facility] Address: [address] [place] [address] Performed By: #### 5 7021-8, 4536-7 ####[facility] LABCLIA [id number] [place] [address] [place] Immature granulocytes (Bld) [#/Vol] 0.04 10*3/uL Normal <0.10 [facility] Comment on above: Order Comment: Speci men Type: BLOOD SPECIMENOrdering Facility: [facility] Address: [address] [place] [address] Performed By: #### 5 7021-8, 7 ####[facility] LABCLIA [id number] [place] [address] [place] Immature granulocytes/100 WBC (Bld) 0.6 % Normal [facility] Comment on above: Order Comment: Speci men Type: BLOOD SPECIMENOrdering Facility: [facility] Address: [address] [place] [address] Performed By: #### 5 7021-8, 7 ####[facility] LABCLIA [id number] [place] [address] [place] Lymphocytes (Bld) [#/Vol] 2.74 10*3/uL Normal 1.00-4.00 [facility] Comment on above: Order Comment: Speci men Type: BLOOD SPECIMENOrdering Facility: [facility] Address: [address] [place] [address] Performed By: #### 5 7021-8, 4536-7 ####[facility] LABCLIA [id number] [place] [address] [place] Lymphocytes/100 WBC (Bld) 40.2 % Normal [facility] Comment on above: Order Comment: Speci men Type: BLOOD SPECIMENOrdering Facility: [facility] Address: [address] [place] [address] Performed By: #### 5 7021-8, 7 ####[facility] LABCLIA [id number] [place] [address] [place] [facility] MCH (RBC) [Entitic mass] 31.2 pg Normal 26.0-34.0 [facility] Comment on above: Order Comment: Speci men Type: BLOOD SPECIMENOrdering Facility: [facility] Address: [address] [place] [address] Performed By: #### 5 7021-8, 7 ####[facility] LABIA [id number] [place] [address] [place] MCHC (RBC) [Mass/Vol] 31.7 g/dL Normal 30.5-36.0 [facility] Comment on above: Order Comment: Speci men Type: BLOOD SPECIMENOrdering Facility: [facility] Address: [address] [place] [address] Performed By: #### 5 7021-8, 7 ####[facility] [id number] [place] [address] [place] MCV (RBC) [Entitic vol] 98.2 fL Normal 80.0-100.0 [facility] Comment on above: Order Comment: Speci men Type: BLOOD SPECIMENOrdering Facility: [facility] Address: [address] [place] [address] Performed By: #### 5 7021-8, 7 ####[facility] LABIA [id number] [place] [address] [place] Monocytes (Bld) [#/Vol] 0.55 10*3/uL Normal <0.87 [facility] Comment on above: Order Comment: Speci men Type: BLOOD SPECIMENOrdering Facility: [facility] Address: [address] [place] [address] Performed By: #### 5 7021-8, 7 ####[facility] LABIA [id number] [place] [address] [place] Monocytes/100 WBC (Bld) 8.1 % Normal [facility] Comment on above: Order Comment: Speci men Type: BLOOD SPECIMENOrdering Facility: [facility] Address: [address] [place] [address] Performed By: #### 5 7021-8, 4536-7 ####[facility] LABCLIA [id number] [place] [address] [place] Neutrophils (Bld) [#/Vol] 3.35 10*3/uL Normal 1.45-7.50 [facility] Comment on above: Order Comment: Speci men Type: BLOOD SPECIMENOrdering Facility: [facility] Address: [address] [place] [address] Performed By: #### 5 7021-8, 4536-7 ####[facility] LABCLIA [id number] [place] [address] [place] Neutrophils/100 WBC (Bld) 49.2 % Normal [facility] Comment on above: Order Comment: Speci men Type: BLOOD SPECIMENOrdering Facility: [facility] Address: [address] [place] [address] Performed By: #### 5 7021-8, 4536-7 ####[facility] LABCLIA [id number] [place] [address] [place] Nucleated RBC (Bld) [#/Vol] 10*3/uL Normal <0.01 [facility] Comment on above: Order Comment: Speci men Type: BLOOD SPECIMENOrdering Facility: [facility] Address: [address] [place] [address] Performed By: #### 5 7021-8, 4536-7 ####[facility] LABCLIA [id number] [place] [address] [place] Nucleated RBC/100 WBC (Bld) [Ratio] 0.0 /100 WBC Normal [facility] Comment on above: Order Comment: Speci men Type: BLOOD SPECIMENOrdering Facility: [facility] Address: [address] [place] [address] Performed By: #### 5 7021-8, 7-7 ####[facility] LABCLIA [id number] [place] [address] [place] Platelet mean volume (Bld) [Entitic vol] 10.1 fL Normal 9.0-12.7 [facility] Comment on above: Order Comment: Speci men Type: BLOOD SPECIMENOrdering Facility: [facility] Address: [address] [place] [address] Performed By: #### 5 7021-8, 4536-7 ####[facility] LABCLIA [id number] [place] [address] [place] Platelets (Bld) [#/Vol] 441 10*3/uL High 150-400 [facility] Comment on above: Order Comment: Speci men Type: BLOOD SPECIMENOrdering Facility: [facility] Address: [address] [place] [address] Performed By: #### 5 7021-8, 7 ####[facility] LABCLIA [id number] [place] [address] [place] RBC (Bld) [#/Vol] 4.43 10*6/uL Normal 3.90-5.20 [facility] Comment on above: Order Comment: Speci men Type: BLOOD SPECIMENOrdering Facility: [facility] Address: [address] [place] [address] Performed By: #### 5 7021-8, 7 ####[facility] LABCLIA [id number] [place] [address] [place] WBC (Bld) [#/Vol] 6.81 10*3/uL Normal 3.70-11.00 [facility] Comment on above: Order Comment: Speci men Type: BLOOD SPECIMENOrdering Facility: [facility] Address: [address] [place] [address] Performed By: #### 5 7021-8, 7-7 ####[facility] LABCLIA [id number] [place] [id number] [place] CRP SerPl-mCncon 06-25-2025 CRP [Mass/Vol] mg/L Normal <0.9 [facility] Comment on above: Order Comment: Speci men Type: BLOOD SPECIMENOrdering Facility: [facility] Address: [address] [place] [address] Performed By: #### 1 988-5, 04871-4, 38763-1, 2132-04 ####[facility] LABCLIA [id number] [place] [address] [place] ESR Westergren method (Bld) [Velocity]on 06-25-2025 ESR (Bld) [Velocity] 2 mm/h Normal 0-20 [facility] Comment on above: Order Comment: Speci men Type: BLOOD SPECIMENOrdering Facility: [facility] Address: [address] [place] [address] Performed By: #### 5 7021-8, 4537-7 ####[facility] LABCLIA [id number] [place] [address] [place] Hepatic function 2000 panelo n 06-25-2025 Albumin [Mass/Vol] 4.2 g/dL Normal 3.9-4.9 [facility] Comment on above: Order Comment: Speci men Type: BLOOD SPECIMENOrdering Facility: [facility] Address: [address] [place] [address] Performed By: #### 1 988-5, 34122-6, 19619-4, 2132-04 ####[facility] LABCLIA [id number] [place] [address] [place] ALP [Catalytic activity/Vol] 61 U/L Normal 34-123 [facility] Comment on above: Order Comment: Speci men Type: BLOOD SPECIMENOrdering Facility: [facility] Address: [address] [place] [address] Performed By: #### 1 988-5, 03355-4, 10230-9, 2132-04 ####[facility] LABCLIA [id number] [place] [id number] [place] ALT [Catalytic activity/Vol] 28 U/L Normal 7-38 [facility] Comment on above: Order Comment: Speci men Type: BLOOD SPECIMENOrdering Facility: [facility] Address: [address] [place] [address] Performed By: #### 1 988-5, 66913-7, 28778-4, 2132-04 ####[facility] LABCLIA [id number] [place] [address] [place] AST [Catalytic activity/Vol] 25 U/L Normal 13-35 [facility] Comment on above: Order Comment: Speci men Type: BLOOD SPECIMENOrdering Facility: [facility] Address: [address] [place] [address] Performed By: #### 1 988-5, 13475-3, 19445-8, 2132-04 ####[facility] LABCLIA [id number] [place] [address] [place] Bilirubin [Mass/Vol] 0.5 mg/dL Normal 0.2-1.3 [facility] Comment on above: Order Comment: Speci men Type: BLOOD SPECIMENOrdering Facility: [facility] Address: [address] [place] [address] Performed By: #### 1 988-5, 35915-7, 08794-9, 2132-04 ####[facility] LABCLIA [id number] [address] [place] Bilirubin.conjugated [Mass/Vol] 0.2 mg/dL Normal <0.3 [facility] Comment on above: Order Comment: Speci men Type: BLOOD SPECIMENOrdering Facility: [facility] Address: [address] [place] [address] Performed By: #### 1 988-5, 13813-3, 66096-8, 2132-04 ####[facility] LABCLIA [id number] [place] [address] [place] Protein [Mass/Vol] 7.0 g/dL Normal 6.3-8.0 [facility] Comment on above: Order Comment: Speci men Type: BLOOD SPECIMENOrdering Facility: [facility] Address: [address] [place] [address] Performed By: #### 1 988-5, 22832-2, 96223-0, 9 ####[facility] LABCLIA [id number] [address] [place] Vit B12 [facility] -11-2 025 Cobalamin (Vitamin B12) [Mass/Vol] 412 pg/mL Normal 232-1245 [facility] Comment on above: Order Comment: Specclaire armstrong Type: BLOOD SPECIMENOrdering Facility: [facility] Address: [address] [place] [address] Performed By: #### 1 988-5, 60648-0, 49369-1, 2132-04 ####[facility] LABCLIA [id number] [address] [place] Emergency Department Summary on 06-16-2025 Emergency Department Summary [facility] Medical Records Department [address] [place] [address] Emergency Department Summary 06/16/25 MR#: [id number] Acct: [id number] Name: LILIAM THOMPSON Rep #: [id number] : 1990 34 From: Mohit Moura DO PCP: Dr. Faustina Carcamo MD Status:DEP ER Location: ED HPI History of Present Illness Chief Complaint: Other, Pain/Inj Informant: patient Onset/Context/Timing Onset: Weeks (2) Context: Gradual Onset Timing: Continuous Quality: Shocking, burning Location: Right side of face and head Worsened by: Palpation, talking Relieved by: Nothing Narrative Narrative: Patient presents with right-sided facial pain that has been getting worse over the past 2 weeks. Patient states she was recently diagnosed with trigeminal neuralgia. Patient states she has been taking baclofen that was helping initially. Patient states it is no longer helping. Patient states her pain is shocking and burning. Patient states it is over the right side of her face. Patient states it is worse with talking and with palpation. Patient admits to some sweats and chills that come on in the nighttime. Patient admits to some nausea and vomiting due to the pain. Patient states her pain radiates into her neck. [facility] Medical History OCD (obsessive compulsive disorder) Panic disorder Morbid [...] 06/07/24 Unknown History subcutaneous solution (Ilaris (PF)) naratriptan 2.5 mg tablet mg PO 01/21/25 Unknown History ondansetron 4 mg disintegrating 4 mg PO Q8H PRN PRN Nausea #10 tab s 02/24/25 Unknown Rx tablet hydrocodone-acetaminoph en 5-325mg 1 tab PO Q6H PRN PRN Pain 3 days 06/16/25 Unknown Rx 5mg-325mg #10 TABLETS prednisone 20 mg tablet 60 mg (3 x 20 mg) PO DAILY #12 10/09 Unknown Rx TABLETS Allergy/AdvReac Type Severity Reaction Status Date / Time latex Allergy Hives Verified 06/16/25 09:37 topiramate (From Topamax) AdvReac Other Verified 06/16/25 09:37 Family History Other Diabetes Heart disease Lupus Social History Smoking Status: Never smoker alcohol intake: current alcohol intake frequency: holidays/special occasions only substance use type: marijuana ROS ROS ED Constitutional Constitutional ED: Reports chills and sweats; Denies fever(s) Eyes Eyes: Reports diplopia; Denies blurry vision ENT ENT ED: Denies rhinorrhea or sore throat Cardiovascular Cardiovascular: Denies chest pain or palpitations Respiratory/Chest Respiratory/Chest: Denies cough or dyspnea Gastrointestinal Gastrointestinal: Reports nausea and vomiting Genitourinary Genitourinary ED: Denies dysuria or hematuria Musculoskeletal Musculoskeletal: Reports neck pain; Denies back pain Integumentary Denies abscess or rash Neurologic Neurologic: Denies headache(s) or weakness Allergic/Immunologic Allergic/Immunologic ED: Denies mouth swelling or urticaria EXAM Physical Exam Const Vital Signs: 06/16/25 09:37 Temperature 98.7 F Temperature Source Oral Pulse Rate 113 H Respiratory Rate 18 Blood Pressure 167/129 H Blood Pressure Mean 141 Pulse Ox 98 Oxygen Delivery Method Room Air Positive well nourished and well developed Constitutional Narrative: BMI is 52.5. General Appearance ED: well developed and NAD HEENT Reports moist mucous membranes Eyes PERRL and EOMs intact bilaterally Neck supple and no JVD Resp normal respiratory effort and clear to auscultation bilaterally Cardio regular rate and regular rhythm GI non-tender and non-distended Palpation: soft Neuro oriented x3, CN's II-XII intact bilaterally and no sensory deficits noted Neuro Narrative: There is mild tenderness to palpation over the right temporal and preauricular area. There is no edema or ecchymosis. There is no bony crepitus or step-off. There is no facial weakness noted. Sensorium / Orientation: alert Motor Exam: strength 5/5 throughout Psych mental status grossly normal MDM MDM MDM Narrative Medical decision making narrative: Patient (more content not included)... Normal [facility] 06-05-2025 [facility] CNPNon 05-23-2025 CNPN Normal [facility] CNPNon 04-29-2025 CNPN Normal [facility] Bacteria Wnd Culton 04-26-20 25 Bacteria identified Cx Nom (Wound) Abnormal [facility] Comment on above: Performed By: #### 6 462-6 ####[facility] LABCLIA [id number] [address] [place] CNOVon 04-26-2025 CNOV Normal [facility] CNPNon 04-03-2025 CNPN Normal [facility] CNOVon 03-28-2025 CNOV Normal [facility] Pathology biopsy report Amrik (Tiss)on 03-28-2025 ADDENDUM 1: Normal [facility] Comment on above: Order Comment: Speci men Type: TISSUE SPECIMENOrdering Facility: [facility] Address: [address] [place] [address] Result Comment: E: G MS and Gram stains are negative for microorganisms.Addendum electronically signed by Guillaume Smith MD on 04/02/2025 at 1627 EDT Performed By: #### 6 6121-5 ####[facility] LABCLIA [id number] [place] [address] [place] AP DISCLAIMER Normal [facility] Comment on above: Order Comment: Speci men Type: TISSUE SPECIMENOrdering Facility: [facility] Address: [address] [place] [address] Result Comment: Priyank allred Developed Test (LDT) Disclaimer:Performance characteristics of immunohistochemical, immunofluorescent, and chromogenic in-situ hybridization tests have been determined by the performing laboratory within [facility]'s Guillaume Farrar Pathology and Laboratory Medicine Department ([facility], [facility], [facility], [facility], [facility], [facility], or [facility]) in a manner consistent with CLIA requirements. One or more of these tests may not have been cleared or approved by the FDA. [facility] is regulated under CLIA as qualified to perform high-complexity testing. These tests are used for clinical purposes. These should not be regarded as investigational or for research. Positive and negative controls stain appropriately. Performed By: #### 6 6121-5 ####[facility] LABCLIA [id number] [place] [address] [place] CASE REPORT Normal [facility] Comment on above: Order Comment: Speci men Type: TISSUE SPECIMENOrdering Facility: [facility] Address: [address] [place] [address] Result Comment: Surg [facility] Pathology Report Case: [id number] Provider: Fredy Elmore MD Collected: 03/28/2025 11:31 AMOrdering Location: OB/Gynecology Received: 03/28/2025 04:47 PMPathologist: Guillaume Smith MDSpecimens: A) - Cervix, Biopsy, 3 B) - Cervix, Biopsy, 6 C) - Cervix, Biopsy, 9 D) - Cervix, Biopsy, 12 E) - Endocervix, Curettings Performed By: #### 6 6121-5 ####[facility] LABCLIA [id number] [address] [address] [place] CLINICAL HISTORY LGSIL Normal [facility] Comment on above: Order Comment: Speci men Type: TISSUE SPECIMENOrdering Facility: [facility] Address: [address] [place] [address] Performed By: #### 6 6121-5 ####[facility] LABCLIA [id number] [place] [id number] [place] [facility] DIAGNOSIS COMMENT Histochemical stains for microorganisms are being performed. The results will be reported in an addendum. Normal [facility] Comment on above: Order Comment: Speci men Type: TISSUE SPECIMENOrdering Facility: [facility] Address: [address] [place] [address] Performed By: #### 6 6121-5 ####[facility] LABCLIA [id number] [place] [id number] [facility] FINAL DIAGNOSIS Normal [facility] Comment on above: Order Comment: Speci men Type: TISSUE SPECIMENOrdering Facility: [facility] Address: [address] [place] [address] Result Comment: A. C ervix, 3:00, Biopsy- Benign squamous mucosaB. Cervix, 6:00, Biopsy- Benign transformation zoneC. Cervix, 9:00, Biopsy- Benign squamous mucosaD. Cervix, 12:00, Biopsy- Benign squamous mucosaE. Endocervix, Curettage- Fragments of benign endocervix, see comment at 1136 EDT Performed By: #### 6 6121-5 ####[facility] LABCLIA [id number] [address] [address] [place] FINAL PERFORMING LAB Normal [facility] Comment on above: Order Comment: Speci men Type: TISSUE SPECIMENOrdering Facility: [facility] Address: [address] [place] [address] Result Comment: Diag nostic interpretation performed at: [facility], [address] [place] [address] CLIA# [id number] Director: Nito Chamberlain MD Performed By: #### 6 6121-5 ####[facility] LABCLIA [id number] [address] [address] [place] GROSS DESCRIPTION Normal [facility] Comment on above: Order Comment: Speci men Type: TISSUE SPECIMENOrdering Facility: [facility] Address: [address] [place] [address] Result Comment: A. C ervix, BiopsyReceived in formalin are multiple pieces of salazar-quinn, soft tissue aggregating to 0.5 x 0.3 x 0.2 cm. Totally submitted in one cassette.B. Cervix, BiopsyReceived in formalin is one piece of salazar-quinn, soft tissue measuring 0.5 x 0.4 x 0.2 cm. Totally submitted in one cassette.C. Cervix, BiopsyReceived in formalin are multiple pieces of salazar-brown, soft tissue aggregating to 0.4 x 0.3 x 0.2 cm. Totally submitted in one cassette.D. Cervix, BiopsyReceived in formalin are multiple pieces of salazar, soft tissue aggregating to 1.2 x 0.5 x 0.2 cm. Totally submitted in one cassette.E. Endocervix, CurettingsReceived in formalin are multiple brown, soft feathery segments of tissue admixed with mucinous material aggregating to 2.8 x 1.0 x 0.2 cm. Totally submitted in one cassette.[facility] March 29, 2025 2:25 AMGross examination performed at [facility], [address] [place] [address] Performed By: #### 6 6121-5 ####[facility] LABCLIA [id number] [facility] [id number] [place] [address] [place] UA DIP,URINE HCG (POC)on Beta HCG ( test) Ql (U) Negative Negative [facility] Comment on above: Location:[facility], [address], [place], [address] College Director (POCT) Internal QC OK [facility] Location:[facility], [address], [place], [place], [id number] [place] [address] POINT OF CARE [facility] CNOVon 03-11-2025 CNOV Normal [facility] XR THORACIC 2V AP/LATon 02-13 XR THORACIC 2V AP/LAT Normal [facility] CNPNon 02-27-2025 CNPN Normal [facility] CNOVon 02-26-2025 CNOV Normal [facility] CBC W/Diff, Automatedon 02-12 Absolute Lymph 2.93 X10 3/uL Normal 0.83-4.51 [facility] Comment on above: Performed By: #### L 501.2450, L700.6800, L100.0100, L500.4050 ####[facility] [address] [place], [address] Absolute Neut 3.2 X10 3/uL Normal 2.0-7.7 [facility] Comment on above: Performed By: #### L 501.2450, L700.6800, L100.0100, L500.4050 ####[facility] [address] [place], [address] Basophils/100 WBC (Bld) 0.6 % Normal 0-1 [facility] Comment on above: Performed By: #### L 501.2450, L700.6800, L100.0100, L500.4050 ####[facility] [address] [place], [address] Eosinophils/100 WBC (Bld) 2.2 % Normal 0-5 [facility] Comment on above: Performed By: #### L 501.2450, L700.6800, L100.0100, L500.4050 ####[facility] [address] [place], [address] Erythrocyte distribution width (RBC) [Ratio] 12.8 % Normal 11.6-14.6 [facility] Comment on above: Performed By: #### L 501.2450, L700.6800, L100.0100, L500.4050 ####[facility] [address] [place], [address] Hematocrit (Bld) [Volume fraction] 41.4 % Normal 37-47 [facility] Comment on above: Performed By: #### L 501.2450, L700.6800, L100.0100, L500.4050 ####[facility] [address] [place], [address] Hemoglobin (Bld) [Mass/Vol] 14.0 g/dL Normal 12.0-15.0 [facility] Comment on above: Performed By: #### L 501.2450, L700.6800, L100.0100, L500.4050 ####[facility] [address] [place], [address] IG% 0.100 Normal 0.0-0.9 [facility] Comment on above: Result Comment: IG% - Immature Granulocytes (promyelocytes, myelocytes and metamyelocytes) > 1% indicates that a LEFT SHIFT is Present. Performed By: #### L 501.2450, L700.6800, L100.0100, L500.4050 ####[facility] [address] [place], [address] Lymphocytes/100 WBC (Bld) 42.3 % High 19-41 [facility] Comment on above: Performed By: #### L 501.2450, L700.6800, L100.0100, L500.4050 ####[facility] [address] [place], [address] MCH (RBC) [Entitic mass] 30.8 pg Normal 27.0-32.0 [facility] Comment on above: Performed By: #### L 501.2450, L700.6800, L100.0100, L500.4050 ####[facility] [address] [place], [address] MCHC (RBC) [Mass/Vol] 33.8 g/dL Normal 32-36 [facility] Comment on above: Performed By: #### L 501.2450, L700.6800, L100.0100, L500.4050 ####[facility] [address] [place], [address] MCV (RBC) [Entitic vol] 91.2 fL Normal 81-99 [facility] Comment on above: Performed By: #### L 501.2450, L700.6800, L100.0100, L500.4050 ####[facility] [address] [place], [address] Monocytes/100 WBC (Bld) 9.0 % Normal 0-10 [facility] Comment on above: Performed By: #### L 501.2450, L700.6800, L100.0100, L500.4050 ####[facility] [address] [place], [address] Neutrophils/100 WBC (Bld) 45.8 % Low 47-70 [facility] Comment on above: Performed By: #### L 501.2450, L700.6800, L100.0100, L500.4050 ####[facility] [address] [place], [address] Nucleated RBC (Bld) [#/Vol] 0 10*3/uL Normal 0-5 [facility] Comment on above: Performed By: #### L 501.2450, L700.6800, L100.0100, L500.4050 ####[facility] [address] [place], [address] Platelet mean volume (Bld) [Entitic vol] 9.7 fL Normal 6.2-12.0 [facility] Comment on above: Performed By: #### L 501.2450, L700.6800, L100.0100, L500.4050 ####[facility] [address] [place], [address] Platelets (Bld) [#/Vol] 377 10*3/uL Normal 150-450 [facility] Comment on above: Performed By: #### L 501.2450, L700.6800, L100.0100, L500.4050 ####[facility] [address] [place], [address] RBC (Bld) [#/Vol] 4.54 10*6/uL Normal 4.2-5.4 [facility] Comment on above: Performed By: #### L 501.2450, L700.6800, L100.0100, L500.4050 ####[facility] [address] [place], [address] RDW SD 42.0 fl Normal 35.1-43.9 [facility] Comment on above: Performed By: #### L 501.2450, L700.6800, L100.0100, L500.4050 ####[facility] [address] [place], [address] WBC (Bld) [#/Vol] 6.9 10*3/uL Normal 4.4-11.0 [facility] Comment on above: Performed By: #### L 501.2450, L700.6800, L100.0100, L500.4050 ####[facility] [address] [place], [address] Comprehensive Metabolic Prof ilon 02-24-2025 Albumin [Mass/Vol] 4.1 g/dL Normal 3.5-5.0 [facility] Comment on above: Performed By: #### L 501.2450, L700.6800, L100.0100, L500.4050 ####[facility] [address] [place], [address] Albumin/Globulin [Mass ratio] 1.5 {ratio} Normal 0.9-2.4 [facility] Comment on above: Performed By: #### L 501.2450, L700.6800, L100.0100, L500.4050 ####[facility] [address] [place], [address] ALK PHOS 68 U/L Normal 35-104 [facility] Comment on above: Performed By: #### L 501.2450, L700.6800, L100.0100, L500.4050 ####[facility] [address] [place], [address] ALT [Catalytic activity/Vol] 43 U/L High <=34 [facility] Comment on above: Performed By: #### L 501.2450, L700.6800, L100.0100, L500.4050 ####[facility] [address] [place], [address] AST [Catalytic activity/Vol] 29 U/L Normal <=31 [facility] Comment on above: Performed By: #### L 501.2450, L700.6800, L100.0100, L500.4050 ####[facility] [address] [place], [address] Bilirubin [Mass/Vol] 0.38 mg/dL Normal 0.00-1.30 [facility] Comment on above: Performed By: #### L 501.2450, L700.6800, L100.0100, L500.4050 ####[facility] [address] [place], [address] BUN/CRE 11.5 RATIO Normal 10-20 [facility] Comment on above: Performed By: #### L 501.2450, L700.6800, L100.0100, L500.4050 ####[facility] [address] [place], [address] Calcium [Mass/Vol] 8.9 mg/dL Normal 7.6-11.0 [facility] Comment on above: Performed By: #### L 501.2450, L700.6800, L100.0100, L500.4050 ####[facility] [address] [place], [address] Chloride [Moles/Vol] 107 mmol/L Normal 98-108 [facility] Comment on above: Performed By: #### L 501.2450, L700.6800, L100.0100, L500.4050 ####[facility] [address] [place], [address] CO2 [Moles/Vol] 21.0 mmol/L Normal 21.0-32.0 [facility] Comment on above: Performed By: #### L 501.2450, L700.6800, L100.0100, L500.4050 ####[facility] [address] [place], [address] Creatinine [Mass/Vol] 0.60 mg/dL Low 0.70-1.20 [facility] Comment on above: Performed By: #### L 501.2450, L700.6800, L100.0100, L500.4050 ####[facility] [address] [place], [address] ECRCL 165.37 ml/min Normal 50-250 [facility] Comment on above: Performed By: #### L 501.2450, L700.6800, L100.0100, L500.4050 ####[facility] [address] [place], [address] GAP 11 Normal 5-15 [facility] Comment on above: Performed By: #### L 501.2450, L700.6800, L100.0100, L500.4050 ####[facility] [address] [place], [address] GFR/1.73 sq M.predicted among non-blacks MDRD (S/P/Bld) [Vol rate/Area] 122 mL/min/{1.73_m2} Normal >60 [facility] Comment on above: Result Comment: mL/m in/1.73m2 CKD-EPI Creatinine Equation (2020) Performed By: #### L 501.2450, L700.6800, L100.0100, L500.4050 ####[facility] [address] [place], [address] Globulin (S) [Mass/Vol] 2.7 g/dL Normal 2.2-4.2 [facility] Comment on above: Performed By: #### L 501.2450, L700.6800, L100.0100, L500.4050 ####[facility] [address] [place], [address] Glucose [Mass/Vol] 95 mg/dL Normal 70-99 [facility] Comment on above: Performed By: #### L 501.2450, L700.6800, L100.0100, L500.4050 ####[facility] [address] [place], [address] Potassium [Moles/Vol] 4.0 mmol/L Normal 3.3-5.1 [facility] Comment on above: Performed By: #### L 501.2450, L700.6800, L100.0100, L500.4050 ####[facility] [address] [place], [address] Sodium [Moles/Vol] 139 mmol/L Normal 133-145 [facility] Comment on above: Performed By: #### L 501.2450, L700.6800, L100.0100, L500.4050 ####[facility] [address] [place], [address] T PROT 6.8 g/dL Normal 5.9-8.4 [facility] Comment on above: Performed By: #### L 501.2450, L700.6800, L100.0100, L500.4050 ####[facility] [address] [place], [address] Urea nitrogen [Mass/Vol] 7 mg/dL Normal 4-19 [facility] Comment on above: Performed By: #### L 501.2450, L700.6800, L100.0100, L500.4050 ####[facility] [address] [place], [address] Emergency Department Summary on 02-24-2025 Emergency Department Summary [facility] Medical Records Department [address] [place] [address] Emergency Department Summary 02/24/25 MR#: [id number] Acct: [id number] Name: LILIAM THOMPSON Rep #: [id number] : 1990 34 From: Mohit Moura DO PCP: Dr. Faustina Carcamo MD Status:DEP ER Location: ED HPI HPI - GI History of Present Illness Chief Complaint: Abd Pain Informant: patient Abdominal Pain/Flank Pain Onset: Days Context: Gradual Onset Timing: Continuous Quality: Aching and Stabbing Location: RUQ and RLQ Worsened by: - (Palpation) Relieved by: - (Bending, heat) Nausea/Vomiting/Emesis GI Symptom: Positive for Nausea; Negative for Vomiting Diarrhea/Melena/Hematoc hezia GI Symptom: Positive for Diarrhea; Negative for Melena or Hematochezia Associated Symptoms Associated Symptoms: Negative for Dysuria, Frequency or Hematuria Narrative Narrative: Patient presents with abdominal pain that has been getting worse over the past few days. Patient was seen here [address] days [address] Patient had CT scan and lab work done at that time. Patient states that she started having a fever yesterday. Patient states it was up to 101. Patient states her pain is stabbing and aching. Patient states it is mainly on the right side of her abdomen. Patient states it is worse with palpation. Patient states it is better with bending over and with heating pad. Patient admits to some nausea but denies any vomiting. Patient admits to some diarrhea but denies any melena or hematochezia. Patient denies any dysuria, frequency, or hematuria. [facility] Medical History OCD (obsessive compulsive disorder) Panic disorder Morbid [...] mg tablet mg PO 01/21/25 Unknown History ondansetron 4 mg disintegrating 4 mg PO Q8H PRN PRN Nausea #10 tab s 02/24/25 Unknown Rx tablet Allergy/AdvReac Type Severity Reaction Status Date / Time latex Allergy Hives Verified 02/24/25 06:32 topiramate (From Topamax) AdvReac Other Verified 02/24/25 06:32 Family History Other Diabetes Heart disease Lupus Social History Smoking Status: Never smoker alcohol intake: current alcohol intake frequency: holidays/special occasions only substance use type: marijuana ROS ROS ED Constitutional Constitutional ED: Reports chills and fever(s) Eyes Eyes: Denies blurry vision or change in vision ENT ENT ED: Denies rhinorrhea or sore throat Cardiovascular Cardiovascular: Denies chest pain or palpitations Respiratory/Chest Respiratory/Chest: Reports cough; Denies dyspnea Gastrointestinal Gastrointestinal: Reports abdominal pain, diarrhea and nausea; Denies melena or vomiting Genitourinary Genitourinary ED: Denies dysuria or hematuria Musculoskeletal Musculoskeletal: Reports back pain; Denies neck pain Integumentary Denies abscess or rash Neurologic Neurologic: Denies headache(s) or weakness Allergic/Immunologic Allergic/Immunologic ED: Denies mouth swelling or urticaria EXAM Physical Exam Const Vital Signs: 02/24/25 06:32 Temperature 97.8 F Temperature Source Oral Pulse Rate 114 H Respiratory Rate 18 Blood Pressure 157/104 H Blood Pressure Mean 121 Pulse Ox 96 Oxygen Delivery Method Room Air Positive well nourished and well developed Constitutional Narrative: BMI is 54.4. General Appearance ED: well developed and NAD HEENT Reports moist mucous membranes Neck supple and no JVD Resp normal respiratory effort and clear to auscultation bilaterally Cardio regular rhythm Rate: tachycardic GI non-distended Palpation: soft and tender RLQ and RUQ; Negative for guarding or rebound tenderness present Extremity full ROM Neuro CN's II-XII intact bilaterally, moves all extremities and no sensory deficits noted Sensorium / Orientation: alert Motor Exam: strength 5/5 throughout Psych mental status grossly normal and thought pro (more content not included)... Normal [facility] Lipaseon 02-24-2025 Lipase [Catalytic activity/Vol] 22 U/L Normal 13-75 [facility] Comment on above: Result Comment: Shameka chu note: LIPASE revised reference range effective 22. New Lipase methodology. Expected to produce lower values than the previous assay method. NEW Reference Range: 13 - 75 U/L Performed By: #### L 501.2450, L700.6800, L100.0100, L500.4050 ####[facility] [address] [place], [address] ,Serum,hCG Quali.on 02-24-2025 HCG, SERUM QUAL Negative Normal [facility] Comment on above: Performed By: #### L 501.2450, L700.6800, L100.0100, L500.4050 ####[facility] [address] [place], [address] Urinalysis, Completeon 02-24 BACTERIA RARE Normal None Seen [facility] Comment on above: Order Comment: COLLE CTOR TO SPECIFY Performed By: #### L 400.0001 ####[facility] [address] [place], [address] EPI,SQUAMOUS 0-5 SEEN Normal 5-10 [facility] Comment on above: Order Comment: COLLE CTOR TO SPECIFY Performed By: #### L 400.0001 ####[facility] [address] [place], [address] Mucus Ql (Urine sed) 0 SEEN Normal [facility] Comment on above: Order Comment: COLLE CTOR TO SPECIFY Performed By: #### L 400.0001 ####[facility] [address] [place], [address] RBC 0 SEEN Normal 0-5 [facility] Comment on above: Order Comment: COLLE CTOR TO SPECIFY Performed By: #### L 400.0001 ####[facility] [address] [place], [address] WBC 0 SEEN Normal 0-5 [facility] Comment on above: Order Comment: COLLE CTOR TO SPECIFY Performed By: #### L 400.0001 ####[facility] [address] [place], [place], [address] Abdomen/Pelvis W IV Cont ONL Yon 02-22-2025 Abdomen/Pelvis W IV Cont ONLY [facility] [address] [place], [place] [address] Abdomen/Pelvis W IV Cont ONLY MR#: [id number] Acct: [id number] Name: LILIAM THOMPSON Rep #: [id number] : 1990 F 34 From: Luís olmos MD PCP: Dr. Faustina Carcamo MD Status: REG ER Study: Abdomen/Pelvis W IV Cont ONLY Date of Exam: Exam# [id number] Ordering Dr: Mahesh Cannon DO PROCEDURE: ABDOMEN/PELVIS W IV CONT ONLY 02/22/2025 REASON FOR EXAM: RLQ PAIN TECHNIQUE: ABDOMEN/PELVIS W IV CONT ONLY Coronal and Sagittal reconstruction series were provided. CONTRAST:VOLUME:mL One or more dose reduction techniques were used (e.g., Automated exposure control, adjustment of the mA and/or kV according to patient size, use of iterative reconstruction technique. RADIATION DOSE SUMMARY: CTDlvol:mGy DLP: mGycm COMPARISON: none FINDINGS: Average sized liver showing homogenous parenchymal attenuation with fatty changes. No dilated intra or extra-hepatic biliary tracts. Gall bladder showing no radiodense calculi. No abnormal mural thickening. Clear surrounding fat planes with no sizeable collections. Normal appearance of the pancreas with clear surrounding fat planes. The spleen, adrenal glands, aorta and IVC are unremarkable. Both kidneys are of average size and showing smooth outline with preserved parenchymal thickness. No renal calculi. No hydronephrosis. Left renal hypodense cortical cyst. Under distension of the urinary bladder showing minimal uniform mural thickening with no obvious masses. No obvious masses related to the pelvic viscera. An IUCD is noted. The appendix appears unremarkable. No right iliac inflammatory changes. The examined ascending colon, the transverse colon, the descending colon small bowel loops are unremarkable. The stomach is unremarkable. No ascites or free air. No obvious pathologically enlarged lymph nodes. Scanned osseous structures show no osseous destruction. Scanned lung bases show no obvious abnormalities CT/Abdomen/Pelvis W IV Cont ONLY IMPRESSION: No acute pelvi-abdominal abnormalities, collections or free air. Reading Location: [place] [address] CC: Dr. Faustina Carcamo MD; Mahesh Cannon DO Centrifugal Wax Molder: Signed Normal [facility] Basic Metabolic Profile (BMP )on 02-22-2025 BUN/CRE 12.9 RATIO Normal 10-20 [facility] Comment on above: Performed By: #### L 500.3400, L100.0100, L700.6800, L501.2450, L500.2500 #### [facility] [address] [place], [address] Calcium [Mass/Vol] 9.2 mg/dL Normal 7.6-11.0 [facility] Comment on above: Performed By: #### L 500.3400, L100.0100, L700.6800, L501.2450, L500.2500 #### [facility] [address] [place], [address] Chloride [Moles/Vol] 106 mmol/L Normal 98-108 [facility] Comment on above: Performed By: #### L 500.3400, L100.0100, L700.6800, L501.2450, L500.2500 #### [facility] [address] [place], [address] CO2 [Moles/Vol] 20.0 mmol/L Low 21.0-32.0 [facility] Comment on above: Performed By: #### L 500.3400, L100.0100, L700.6800, L501.2450, L500.2500 #### [facility] [address] [place], [address] Creatinine [Mass/Vol] 0.61 mg/dL Low 0.70-1.20 [facility] Comment on above: Performed By: #### L 500.3400, L100.0100, L700.6800, L501.2450, L500.2500 #### [facility] [address] [place], [address] ECRCL 159.06 ml/min Normal 50-250 [facility] Comment on above: Performed By: #### L 500.3400, L100.0100, L700.6800, L501.2450, L500.2500 #### [facility] [address] [place], [address] GAP 12 Normal 5-15 [facility] Comment on above: Performed By: #### L 500.3400, L100.0100, L700.6800, L501.2450, L500.2500 #### [facility] [address] [place], [address] GFR/1.73 sq M.predicted among non-blacks MDRD (S/P/Bld) [Vol rate/Area] 122 mL/min/{1.73_m2} Normal >60 [facility] Comment on above: Result Comment: mL/m in/1.73m2 CKD-EPI Creatinine Equation (2020) Performed By: #### L 500.3400, L100.0100, L700.6800, L501.2450, L500.2500 #### [facility] [address] [place], [address] Glucose [Mass/Vol] 89 mg/dL Normal 70-99 [facility] Comment on above: Performed By: #### L 500.3400, L100.0100, L700.6800, L501.2450, L500.2500 #### [facility] [address] [place], [address] Potassium [Moles/Vol] 3.7 mmol/L Normal 3.3-5.1 [facility] Comment on above: Performed By: #### L 500.3400, L100.0100, L700.6800, L501.2450, L500.2500 #### [facility] [address] [place], [address] Sodium [Moles/Vol] 138 mmol/L Normal 133-145 [facility] Comment on above: Performed By: #### L 500.3400, L100.0100, L700.6800, L501.2450, L500.2500 #### [facility] [address] [place], [address] Urea nitrogen [Mass/Vol] 8 mg/dL Normal 4-19 [facility] Comment on above: Performed By: #### L 500.3400, L100.0100, L700.6800, L501.2450, L500.2500 #### [facility] [address] [place], [address] CBC W/Diff, Automatedon 07-1 -2024 Absolute Lymph 2.75 X10 3/uL Normal 0.83-4.51 [facility] Comment on above: Performed By: #### L 500.3400, L100.0100, L700.6800, L501.2450, L500.2500 #### [facility] [address] [place], [address] Absolute Neut 3.4 X10 3/uL Normal 2.0-7.7 [facility] Comment on above: Performed By: #### L 500.3400, L100.0100, L700.6800, L501.2450, L500.2500 #### [facility] [address] [place], [address] Basophils/100 WBC (Bld) 0.7 % Normal 0-1 [facility] Comment on above: Performed By: #### L 500.3400, L100.0100, L700.6800, L501.2450, L500.2500 #### [facility] [address] [place], [address] Eosinophils/100 WBC (Bld) 1.5 % Normal 0-5 [facility] Comment on above: Performed By: #### L 500.3400, L100.0100, L700.6800, L501.2450, L500.2500 #### [facility] [address] [place], [address] Erythrocyte distribution width (RBC) [Ratio] 12.6 % Normal 11.6-14.6 [facility] Comment on above: Performed By: #### L 500.3400, L100.0100, L700.6800, L501.2450, L500.2500 #### [facility] [address] [place], [address] Hematocrit (Bld) [Volume fraction] 40.9 % Normal 37-47 [facility] Comment on above: Performed By: #### L 500.3400, L100.0100, L700.6800, L501.2450, L500.2500 #### [facility] [address] [place], [address] Hemoglobin (Bld) [Mass/Vol] 13.9 g/dL Normal 12.0-15.0 [facility] Comment on above: Performed By: #### L 500.3400, L100.0100, L700.6800, L501.2450, L500.2500 #### [facility] [address] [place], [address] IG% 0.100 Normal 0.0-0.9 [facility] Comment on above: Result Comment: IG% - Immature Granulocytes (promyelocytes, myelocytes and metamyelocytes) > 1% indicates that a LEFT SHIFT is Present. Performed By: #### L 500.3400, L100.0100, L700.6800, L501.2450, L500.2500 #### [facility] [address] [place], [address] Lymphocytes/100 WBC (Bld) 40.1 % Normal 19-41 [facility] Comment on above: Performed By: #### L 500.3400, L100.0100, L700.6800, L501.2450, L500.2500 #### [facility] [address] [place], [address] MCH (RBC) [Entitic mass] 31.0 pg Normal 27.0-32.0 [facility] Comment on above: Performed By: #### L 500.3400, L100.0100, L700.6800, L501.2450, L500.2500 #### [facility] [address] [place], [address] MCHC (RBC) [Mass/Vol] 34.0 g/dL Normal 32-36 [facility] Comment on above: Performed By: #### L 500.3400, L100.0100, L700.6800, L501.2450, L500.2500 #### [facility] [address] [place], [address] MCV (RBC) [Entitic vol] 91.3 fL Normal 81-99 [facility] Comment on above: Performed By: #### L 500.3400, L100.0100, L700.6800, L501.2450, L500.2500 #### [facility] [address] [place], [address] Monocytes/100 WBC (Bld) 8.5 % Normal 0-10 [facility] Comment on above: Performed By: #### L 500.3400, L100.0100, L700.6800, L501.2450, L500.2500 #### [facility] [address] [place], [address] Neutrophils/100 WBC (Bld) 49.1 % Normal 47-70 [facility] Comment on above: Performed By: #### L 500.3400, L100.0100, L700.6800, L501.2450, L500.2500 #### [facility] [address] [place], [address] Nucleated RBC (Bld) [#/Vol] 0 10*3/uL Normal 0-5 [facility] Comment on above: Performed By: #### L 500.3400, L100.0100, L700.6800, L501.2450, L500.2500 #### [facility] [address] [place], [address] Platelet mean volume (Bld) [Entitic vol] 9.9 fL Normal 6.2-12.0 [facility] Comment on above: Performed By: #### L 500.3400, L100.0100, L700.6800, L501.2450, L500.2500 #### [facility] [address] [place], [address] Platelets (Bld) [#/Vol] 388 10*3/uL Normal 150-450 [facility] Comment on above: Performed By: #### L 500.3400, L100.0100, L700.6800, L501.2450, L500.2500 #### [facility] [address] [place], [address] RBC (Bld) [#/Vol] 4.48 10*6/uL Normal 4.2-5.4 [facility] Comment on above: Performed By: #### L 500.3400, L100.0100, L700.6800, L501.2450, L500.2500 #### [facility] [address] [place], [address] RDW SD 42.2 fl Normal 35.1-43.9 [facility] Comment on above: Performed By: #### L 500.3400, L100.0100, L700.6800, L501.2450, L500.2500 #### [facility] [address] [place], [address] WBC (Bld) [#/Vol] 6.9 10*3/uL Normal 4.4-11.0 [facility] Comment on above: Performed By: #### L 500.3400, L100.0100, L700.6800, L501.2450, L500.2500 #### [facility] [address] [place], [address] Emergency Department Summary on 02-22-2025 Emergency Department Summary [facility] Medical Records Department [address] [place] [address] Emergency Department Summary 02/22/25 MR#: [id number] Acct: [id number] Name: LILIAM THOMPSON Rep #: [id number] : 1990 34 From: Mahesh Cannon DO PCP: Dr. Faustina Carcamo MD Status:DEP ER Location: ED HPI History of Present Illness Chief Complaint: Flank Pain Informant: patient Narrative Narrative: Patient is a 34-year-old female with past medical history of generalized anxiety disorder and OCD. She states she went to bed normally and then awoke with right-sided abdominal/flank pain. She states there was associated nausea and vomiting. She denies any fevers or chills or known sick contact. She states there has been no loose stool or diarrhea. She denies any recent trauma. She denies any hematuria or dysuria. However secondary to the sudden onset of pain she presents for evaluation. [facility] Medical History OCD (obsessive compulsive disorder) Panic disorder Morbid [...] mg tablet mg PO 01/21/25 Unknown History ondansetron 4 mg disintegrating 4 mg PO Q8H PRN PRN Nausea #10 tab s 02/24/25 Unknown Rx tablet Allergy/AdvReac Type Severity Reaction Status Date / Time latex Allergy Hives Verified 02/24/25 06:32 topiramate (From Topamax) AdvReac Other Verified 02/24/25 06:32 Family History Other Diabetes Heart disease Lupus Social History Smoking Status: Never smoker alcohol intake: current alcohol intake frequency: holidays/special occasions only substance use type: marijuana ROS ROS ED Constitutional Constitutional ED: Denies chills or fever(s) Eyes Eyes: Denies change in vision ENT ENT ED: Denies sore throat Cardiovascular Cardiovascular: Denies chest pain Respiratory/Chest Respiratory/Chest: Denies cough or dyspnea Gastrointestinal Gastrointestinal: Reports abdominal pain, nausea and vomiting; Denies diarrhea Genitourinary Genitourinary ED: Denies dysuria or hematuria Musculoskeletal Musculoskeletal: Reports back pain Integumentary Denies rash Neurologic Neurologic: Denies headache(s) Psychiatric Psychiatric: Reports anxiety and depression Hematologic/Lymphatic Hematologic/Lymphatic: Denies easy bleeding or easy bruising EXAM Physical Exam Const Vital Signs: 02/22/25 04:39 02/22/25 04:41 02/22/25 05:41 Temperature 98.2 F 98.2 F 98.2 F Temperature Source Oral Oral Oral Pulse Rate 108 H 108 H 80 Respiratory Rate 18 18 18 Blood Pressure 153/113 H 153/113 H 133/88 H Blood Pressure Mean 126 126 103 Pulse Ox 97 96 98 Oxygen Delivery Method Room Air Room Air Room Air 02/22/25 06:00 02/22/25 06:38 Temperature 98.2 F Temperature Source Oral Pulse Rate 77 85 Respiratory Rate 18 18 Blood Pressure 133/88 H Blood Pressure Mean 103 Pulse Ox 99 98 Oxygen Delivery Method Room Air Room Air Positive well nourished, well developed and obese General Appearance ED: well developed; Negative for pallor Nutritional Appearance: obese HEENT Reports moist mucous membranes HEENT Narrative: No tongue or lip swelling no oral lesions no airway edema or compromise No secondary findings in the posterior pharynx to suggest infection Eyes PERRL and EOMs intact bilaterally General Eye ED: Negative for scleral icterus Neck supple Resp normal respiratory effort and clear to auscultation bilaterally Cardio regular rhythm Rate: tachycardic and other Other Details: Slightly tachycardic rate with regular rhythm Radial and carotid pulses are equal and symmetric GI non-distended and no masses GI Narrative: Soft and nondistended with normal active bowel sounds. There is pain palpation along the right side of the abdomen without voluntary guarding or rigidity. No pulsatile mass or fluid wave. No pain over McBurney's point Auscultation: normoactive (more content not included)... Normal [facility] Lactic Acidon 02-22-2025 Lactate [Moles/Vol] 1.1 mmol/L Normal 0.0-2.0 [facility] Comment on above: Order Comment: Y Performed By: #### L 503.6005 ####[facility] [address] [place], [address] Lipaseon 02-22-2025 Lipase [Catalytic activity/Vol] 20 U/L Normal 13-75 [facility] Comment on above: Result Comment: Shameka chu note: LIPASE revised reference range effective 22. New Lipase methodology. Expected to produce lower values than the previous assay method. NEW Reference Range: 13 - 75 U/L Performed By: #### L 500.3400, L100.0100, L700.6800, L501.2450, L500.2500 #### [facility] [address] [place], [address] Liver Profileon 02-22-2025 Albumin [Mass/Vol] 4.2 g/dL Normal 3.5-5.0 [facility] Comment on above: Performed By: #### L 500.3400, L100.0100, L700.6800, L501.2450, L500.2500 #### [facility] [address] [place], [address] ALK PHOS 66 U/L Normal 35-104 [facility] Comment on above: Performed By: #### L 500.3400, L100.0100, L700.6800, L501.2450, L500.2500 #### [facility] [address] [place], [address] ALT [Catalytic activity/Vol] 47 U/L High <=34 [facility] Comment on above: Performed By: #### L 500.3400, L100.0100, L700.6800, L501.2450, L500.2500 #### [facility] [address] [place], [address] AST [Catalytic activity/Vol] 35 U/L High <=31 [facility] Comment on above: Performed By: #### L 500.3400, L100.0100, L700.6800, L501.2450, L500.2500 #### [facility] [address] [place], [address] Bilirubin [Mass/Vol] 0.81 mg/dL Normal 0.00-1.30 [facility] Comment on above: Performed By: #### L 500.3400, L100.0100, L700.6800, L501.2450, L500.2500 #### [facility] [address] [place], [address] Bilirubin.direct [Mass/Vol] 0.31 mg/dL High 0.00-0.30 [facility] Comment on above: Performed By: #### L 500.3400, L100.0100, L700.6800, L501.2450, L500.2500 #### [facility] [address] [place], [address] Globulin (S) [Mass/Vol] 2.7 g/dL Normal 2.2-4.2 [facility] Comment on above: Performed By: #### L 500.3400, L100.0100, L700.6800, L501.2450, L500.2500 #### [facility] [address] [place], [address] T PROT 6.9 g/dL Normal 5.9-8.4 [facility] Comment on above: Performed By: #### L 500.3400, L100.0100, L700.6800, L501.2450, L500.2500 #### [facility] [address] [place], [address] ,Serum,hCG Quali.on 02-22-2025 HCG, SERUM QUAL Negative Normal [facility] Comment on above: Performed By: #### L 500.3400, L100.0100, L700.6800, L501.2450, L500.2500 #### [facility] [address] [place], [address] Urinalysis, Completeon 02-22 BACTERIA 1+ /hpf Normal None Seen [facility] Comment on above: Order Comment: MILI CTOR TO SPECIFY Performed By: #### L 400.0001 ####[facility] [address] [place], [address] Mucus Ql (Urine sed) 1+ /hpf Normal [facility] Comment on above: Order Comment: MILI CTOR TO SPECIFY Performed By: #### L 400.0001 ####[facility] [address] [place], [address] EPI,SQUAMOUS 0 SEEN Normal 5-10 [facility] Comment on above: Order Comment: COLLE CTOR TO SPECIFY Performed By: #### L 400.0001 ####[facility] [address] [place], [address] RBC 0 SEEN Normal 0-5 [facility] Comment on above: Order Comment: COLLE CTOR TO SPECIFY Performed By: #### L 400.0001 ####[facility] [address] [place], [address] WBC 0 SEEN Normal 0-5 [facility] Comment on above: Order Comment: COLLE CTOR TO SPECIFY Performed By: #### L 400.0001 ####[facility] [address] [facility] [address] [place], [address] C. trachomatis+N. gonorrhoea e DNA JOSSIE+probe Ql (Unsp spec)on 02-20-2025 C. trachomatis rRNA JOSSIE+probe Ql (Unsp spec) Not detected Normal Not detected [facility] Comment on above: Order Comment: Speci men Type: SWABOrdering Facility: [facility] Address: [address] [place] [address] Performed By: #### 3 6902-5 ####[facility] LABCLIA [id number] [place] [address] [place] N. gonorrhoeae rRNA JOSSIE+probe Ql (Unsp spec) Not detected Normal Not detected [facility] Comment on above: Order Comment: Speci men Type: SWABOrdering Facility: [facility] Address: [address] [place] [address] Performed By: #### 3 6902-5 ####[facility] LABCLIA [id number] [address] [address] [place] CNOVon 02-20-2025 CNOV Normal [facility] HIGH RISK HUMAN PAPILLOMA LEYDA (HPV), PCR FOR DETECTION AND GENOTYPINGon 02-20-2025 HPV 16 Ag Ql (Unsp spec) Not detected Normal Not detected [facility] Comment on above: Order Comment: Speci men Type: FLUID SPECIMENOrdering Facility: [facility] Address: [address] [place] [address] Performed By: #### H PVHRT ####[facility] LABCLIA [id number] [place] [address] [place] HPV 18 Ag Ql (Unsp spec) Not detected Normal Not detected [facility] Comment on above: Order Comment: Speci men Type: FLUID SPECIMENOrdering Facility: [facility] Address: [address] [place] [address] Performed By: #### H PVHRT ####[facility] LABCLIA [id number] [place] [address] [place] [facility] [place] HPV 31+33+35+39+45+51+52 +56+58+59+66+68 DNA JOSSIE+probe Ql (Cvx) Not detected Normal Not detected [facility] Comment on above: Order Comment: Speci men Type: FLUID SPECIMENOrdering Facility: [facility] Address: [address] [place] [address] Result Comment: High Risk HPV Other Type includes HPV types 31, 33, 35, 39, 45, 51, 52, 56, 58, 59, 66 and 68. Performed By: #### H PVHRT ####[facility] LABCLIA [id number] [place] [address] [place] PAP TESTon 02-20-2025 ADEQUACY Normal [facility] Comment on above: Order Comment: Speci men Type: FLUID SPECIMENOrdering Facility: [facility] Address: [address] [place] [address] Result Comment: Sati sfactory for interpretation.Transformation zone present Performed By: #### L [id number] ####[facility] LABCLIA [id number] [address] [place] CASE REPORT Normal [facility] Comment on above: Order Comment: Speci men Type: FLUID SPECIMENOrdering Facility: [facility] Address: [address] [place] [address] Result Comment: Gyne cologic Cytology Report Case: [id number] Provider: Michelle Rojas APRN.SENIOR MORTGAGE UNDERWRITER Collected: 02/20/2025 03:52 PMOrdering Location: OB/Gynecology Received: 02/21/2025 07:22 AMFirst Screen: Marie Wilson, CT, ASCPPathologist: Mari Guzman MDSpecimen: Pap Test, ThinPrep, Cervix Performed By: #### L [id number] ####[facility] LABCLIA [id number] [place] [address] [place] CLINICAL HISTORY, CYTOLOGY, STUDENT AFFAIRS VICE PRESIDENT Positive Normal [facility] Comment on above: Order Comment: Speci men Type: FLUID SPECIMENOrdering Facility: [facility] Address: [address] [place] [address] Result Comment: Intr a Uterine Device, No Menses Performed By: #### L [id number] ####[facility] LABCLIA [id number] [address] [place] FINAL PERFORMING LAB Normal [facility] Comment on above: Order Comment: Speci men Type: FLUID SPECIMENOrdering Facility: [facility] Address: [address] [place] [address] Result Comment: Tech nical component, compensation consultant screening performed at: [facility] Laboratory, [address] [place], [place] [address] CLIA: [id number] interpretation performed at: [facility], [address] [place], [place] [address] CLIA# [id number] Director: Nito Chamberlain MD Performed By: #### L [id number] ####[facility] LABCLIA [id number] [address] [place] [address] [place] INTERPRETATION, CYTOLOGY, STUDENT AFFAIRS VICE PRESIDENT Abnormal [facility] Comment on above: Order Comment: Speci men Type: FLUID SPECIMENOrdering Facility: [facility] Address: [address] [place] [address] Result Comment: Low grade squamous intraepithelial lesion (LSIL). at 1716 EDT Performed By: #### L [id number] ####[facility] LABCLIA [id number] [address] [place] [address] [place] PAP DISCLAIMER COMMENT The Pap Smear is a screening test for cervical cancer. False negative results occur with all screening tests, emphasizing the need for rescreening at recommended intervals, and clinical correlation. Normal [facility] Comment on above: Order Comment: Speci men Type: FLUID SPECIMENOrdering Facility: [facility] Address: [address] [place] [address] Performed By: #### L [id number] ####[facility] LABCLIA [id number] [address] [place] [address] [place] PAP GENERAL CATEGORIZATION Epithelial Cell Abnormality Normal [facility] Comment on above: Order Comment: Speci men Type: FLUID SPECIMENOrdering Facility: [facility] Address: [address] [place] [address] Performed By: #### L [id number] ####[facility] LABCLIA [id number] [address] [place] [address] [place] PAP BELLHOP CAPTAIN COMMENT Normal [facility] Comment on above: Order Comment: Speci men Type: FLUID SPECIMENOrdering Facility: [facility] Address: [address] [place] [address] Performed By: #### L [id number] ####[facility] LABCLIA [id number] [address] [place] [address] [place] Emergency Department Summary on 01-27-2025 Emergency Department Summary [facility] Medical Records Department [address] [place] [address] Emergency Department Summary 01/27/25 MR#: [id number] Acct: [id number] Name: LILIAM THOMPSON Rep #: [id number] : 1990 34 From: Braulio Beltrán MD PCP: Dr. Faustina Carcamo MD Status:DEP ER Location: ED HPI History of Present Illness HPI Narrative: 34-year-old female fjpae-xpja-xmbuynmq. Was walking her Labrador retriever when the [...] Loss of Funtion Narrative Narrative: 34-year-old female cjybd-bpfz-avnvgqnw left small finger injury walking her dog the leash got wrapped around her finger and pulled. Prior similar symptoms: No Recent Illness/Hospitalization : No PFSH PFSH Medical History (Updated 01/27/25 @ 23:09 by [...] unkempt, cac (more content not included)... Normal [facility] Finger(s) Min 2 Viewson 01-13 Finger(s) Min 2 Views [facility] Imaging Services [address] [place], [place] [id number] Finger(s) Min 2 Views MR#: [id number] Acct: [id number] Name: LILIAM THOMPSON Rep #: [id number] : 1990 F 34 From: Luís olmos MD PCP: Dr. Faustina Carcamo MD Status: DEP ER Study: Finger(s) Min 2 Views Date of Exam: 01/27/25 Exam# [id number] Ordering Dr: Braulio Beltrán MD PROCEDURE: FINGER(S) [...] Soft tissue edema and swelling. Reading [facility] CC: Dr. Braulio Beltrán MD; Dr. Faustina Carcamo MD Centrifugal Wax Molder: Signed Normal [facility] MR/BMS.BPon 01-21-2025 MR/BMS.[address], [address] [place] [address] OFFICE VISIT Date of Service: 01/21/25 MR#: [id number] Acct: [id number] Name: LILIAM THOMPSON Rep #: [id number] : 1990 Provider: Dr. Jerry Shaikh se, DO Age/Sex: 34/F Location: [facility].BP Status: Signed Intake Vital Signs 07/20/24 12:47 [...] (Updated 01/22/25 @ 06:[address] Jerry Donis DO) OCD (obsessive compulsive disorder) Panic disorder [...] type symptoms. Was diagnosed with OCD around [id number]. Symptoms had been worsening as of last [...] having done an eating disorder IOP through [facility] last year. Admits to having been treated [...] brother 5 (more content not included)... Normal [facility] CNOVon 01-09-2025 CNOV Normal [facility] CNOVon 12-21-2024 CNOV Normal [facility] STREP A MOLECULAR (POC)on Procedural Control Valid [facility] Strep A (POCT) Negative Negative [facility] BUN SerPl-mCncon 12-18-2024 Urea nitrogen [Mass/Vol] 8 mg/dL Normal - [facility] Comment on above: Order Comment: Speci men Type: BLOOD SPECIMENOrdering Facility: [facility] Address: [address] [place] [address] Performed By: #### 1 988-5 ####[facility] LABCLIA [id number] [place] [address] [place]#### 54797-5, 64054-6, 3094-0 ####[facility] LABCLIA [id number] [place] [address] [place] CBC W Auto Differential pane l (Bld)on 12-18-2024 Basophils (Bld) [#/Vol] 0.03 10*3/uL Normal <0.11 [facility] Comment on above: Order Comment: Speci men Type: BLOOD SPECIMENOrdering Facility: [facility] Address: [address] [place] [address] Performed By: #### 5 7021-8, 4537-7 ####[facility] LABCLIA [id number] [place] [address] [place] Basophils/100 WBC (Bld) 0.5 % Normal [facility] Comment on above: Order Comment: Speci men Type: BLOOD SPECIMENOrdering Facility: [facility] Address: [address] [place] [address] Performed By: #### 5 7021-8, 4536-7 ####[facility] LABCLIA [id number] [place] [address] [place] Differential cell count method Nom (Bld) Auto Normal [facility] Comment on above: Order Comment: Speci men Type: BLOOD SPECIMENOrdering Facility: [facility] Address: [address] [place] [address] Performed By: #### 5 7021-8, 4536-7 ####[facility] LABCLIA [id number] [place] [address] [place] Eosinophils (Bld) [#/Vol] 0.11 10*3/uL Normal <0.46 [facility] Comment on above: Order Comment: Speci men Type: BLOOD SPECIMENOrdering Facility: [facility] Address: [address] [place] [address] Performed By: #### 5 7021-8, 7 ####[facility] LABIA [id number] [place] [address] [place] Eosinophils/100 WBC (Bld) 1.8 % Normal [facility] Comment on above: Order Comment: Speci men Type: BLOOD SPECIMENOrdering Facility: [facility] Address: [address] [place] [address] Performed By: #### 5 7021-8, 7 ####[facility] LABCLIA [id number] [place] [address] [place] Erythrocyte distribution width (RBC) [Ratio] 12.9 % Normal 11.5-15.0 [facility] Comment on above: Order Comment: Speci men Type: BLOOD SPECIMENOrdering Facility: [facility] Address: [address] [place] [address] Performed By: #### 5 7021-8, 4536-7 ####[facility] LABCLIA [id number] [place] [address] [place] Hematocrit (Bld) [Volume fraction] 40.6 % Normal 36.0-46.0 [facility] Comment on above: Order Comment: Speci men Type: BLOOD SPECIMENOrdering Facility: [facility] Address: [address] [place] [address] Performed By: #### 5 7021-8, 4537-7 ####[facility] LABCLIA [id number] [place] [address] [place] Hemoglobin (Bld) [Mass/Vol] 13.3 g/dL Normal 11.5-15.5 [facility] Comment on above: Order Comment: Speci men Type: BLOOD SPECIMENOrdering Facility: [facility] Address: [address] [place] [address] Performed By: #### 5 7021-8, 4537-7 ####[facility] LABCLIA [id number] [place] [address] [place] Immature granulocytes (Bld) [#/Vol] 10*3/uL Normal <0.10 [facility] Comment on above: Order Comment: Speci men Type: BLOOD SPECIMENOrdering Facility: [facility] Address: [address] [place] [address] Performed By: #### 5 7021-8, 7-7 ####[facility] LABCLIA [id number] [place] [address] [place] Immature granulocytes/100 WBC (Bld) 0.3 % Normal [facility] Comment on above: Order Comment: Speci men Type: BLOOD SPECIMENOrdering Facility: [facility] Address: [address] [place] [address] Performed By: #### 5 7021-8, 7-7 ####[facility] LABCLIA [id number] [place] [address] [place] Lymphocytes (Bld) [#/Vol] 2.19 10*3/uL Normal 1.00-4.00 [facility] Comment on above: Order Comment: Speci men Type: BLOOD SPECIMENOrdering Facility: [facility] Address: [address] [place] [address] Performed By: #### 5 7021-8, 4537-7 ####[facility] LABIA [id number] [place] [address] [place] Lymphocytes/100 WBC (Bld) 36.8 % Normal [facility] Comment on above: Order Comment: Speci men Type: BLOOD SPECIMENOrdering Facility: [facility] Address: [address] [place] [address] Performed By: #### 5 7021-8, 453-7 ####[facility] LABIA [id number] [place] [address] [place] MCH (RBC) [Entitic mass] 30.0 pg Normal 26.0-34.0 [facility] Comment on above: Order Comment: Speci men Type: BLOOD SPECIMENOrdering Facility: [facility] Address: [address] [place] [address] Performed By: #### 5 7021-8, 4537-7 ####[facility] LABIA [id number] [address] [place] MCHC (RBC) [Mass/Vol] 32.8 g/dL Normal 30.5-36.0 [facility] Comment on above: Order Comment: Speci men Type: BLOOD SPECIMENOrdering Facility: [facility] Address: [address] [place] [address] Performed By: #### 5 7021-8, 4537-7 ####[facility] LABIA [id number] [place] [address] [place] MCV (RBC) [Entitic vol] 91.6 fL Normal 80.0-100.0 [facility] Comment on above: Order Comment: Speci men Type: BLOOD SPECIMENOrdering Facility: [facility] Address: [address] [place] [address] Performed By: #### 5 7021-8, 7 ####[facility] LABCLIA [id number] [place] [address] [place] Monocytes (Bld) [#/Vol] 0.53 10*3/uL Normal <0.87 [facility] Comment on above: Order Comment: Speci men Type: BLOOD SPECIMENOrdering Facility: [facility] Address: [address] [place] [address] Performed By: #### 5 7021-8, 4537-02 ####[facility] LABIA [id number] [place] [address] [place] Monocytes/100 WBC (Bld) 8.9 % Normal [facility] Comment on above: Order Comment: Speci men Type: BLOOD SPECIMENOrdering Facility: [facility] Address: [address] [place] [address] Performed By: #### 5 7021-8, 4537-02 ####[facility] LABCLIA [id number] [place] [address] [place] Neutrophils (Bld) [#/Vol] 3.07 10*3/uL Normal 1.45-7.50 [facility] Comment on above: Order Comment: Speci men Type: BLOOD SPECIMENOrdering Facility: [facility] Address: [address] [place] [address] Performed By: #### 5 7021-8, 4537-02 ####[facility] LABCLIA [id number] [place] [address] [place] Neutrophils/100 WBC (Bld) 51.7 % Normal [facility] Comment on above: Order Comment: Speci men Type: BLOOD SPECIMENOrdering Facility: [facility] Address: [address] [place] [address] Performed By: #### 5 7021-8, 4537-02 ####[facility] LABCLIA [id number] [facility] [address] [place] [address] [place] Nucleated RBC (Bld) [#/Vol] 10*3/uL Normal <0.01 [facility] Comment on above: Order Comment: Speci men Type: BLOOD SPECIMENOrdering Facility: [facility] Address: [address] [place] [address] Performed By: #### 5 7021-8, 4536-7 ####[facility] LABIA [id number] [address] [place] [address] [place] Nucleated RBC/100 WBC (Bld) [Ratio] 0.0 /100 WBC Normal [facility] Comment on above: Order Comment: Speci men Type: BLOOD SPECIMENOrdering Facility: [facility] Address: [address] [place] [address] Performed By: #### 5 7021-8, 4536-7 ####[facility] LABIA [id number] [facility] [address], [facility] [place] Platelet mean volume (Bld) [Entitic vol] 10.0 fL Normal 9.0-12.7 [facility] Comment on above: Order Comment: Speci men Type: BLOOD SPECIMENOrdering Facility: [facility] Address: [address] [place] [address] Performed By: #### 5 7021-8, 7 ####[facility] LABIA [id number] [facility] [address] [place] [address] [place] Platelets (Bld) [#/Vol] 354 10*3/uL Normal 150-400 [facility] Comment on above: Order Comment: Speci men Type: BLOOD SPECIMENOrdering Facility: [facility] Address: [address] [place] [address] Performed By: #### 5 7021-8, 7-7 ####[facility] LABIA [id number] [facility] [place] [address] [place] RBC (Bld) [#/Vol] 4.43 10*6/uL Normal 3.90-5.20 [facility] Comment on above: Order Comment: Speci men Type: BLOOD SPECIMENOrdering Facility: [facility] Address: [address] [place] [address] Performed By: #### 5 7021-8, 4537-7 ####[facility] LABCLIA [id number] [place] [address] [place] WBC (Bld) [#/Vol] 5.95 10*3/uL Normal 3.70-11.00 [facility] Comment on above: Order Comment: Speci men Type: BLOOD SPECIMENOrdering Facility: [facility] Address: [address] [place] [address] Performed By: #### 5 7021-8, 4537-7 ####[facility] LABCLIA [id number] [place] [address] [place] CNOVon 12-18-2024 CNOV Normal [facility] CNPNon 12-18-2024 CNPN Normal [facility] CRP SerPl-mCncon 12-18-2024 CRP [Mass/Vol] mg/L Normal <0.9 [facility] Comment on above: Order Comment: Speci men Type: BLOOD SPECIMENOrdering Facility: [facility] Address: [address] [place] [address] Performed By: #### 1 988-5 ####[facility] LABCLIA [id number] [place] [address] [place]#### 81798-0, 51697-7, 3094-0 ####[facility] LABCLIA [id number] [place] [address] [place] Creatinine + eGFR Pnl SerPlB ldon 12-18-2024 Creatinine and Glomerular filtration rate.predicted panel (S/P/Bld) 126 mL/min/1.73m??? Normal >=60 [facility] Comment on above: Order Comment: Speci men Type: BLOOD SPECIMENOrdering Facility: [facility] Address: [address] [place] [address] Result Comment: Imelda mated Glomerular Filtration Rate [...] reflect actual GFR. Performed By: #### 1 988-5 ####[facility] LABCLIA [id number] [place] [address] [place]#### 74200-8, 08341-6, 3094-0 ####[facility] LABCLIA [id number] [place] [address] [place] Creatinine and Glomerular fi ltration rate.predicted panel (S/P/Bld)on 12-18-2024 Creatinine [Mass/Vol] 0.53 mg/dL Low 0.58 - 0.96 mg/dL [facility] GFR/1.73 sq M.predicted among non-blacks MDRD (S/P/Bld) [Vol rate/Area] 126 mL/min/{1.73_m2} - PINF [facility] Comment on above: Estimated Glomerular Filtration [...] Interpretation and review of laboratory results Abnormal [facility] Creatinine [Mass/Vol] 0.53 mg/dL Low 0.58-0.96 [facility] Comment on above: Order Comment: Krystyna armstrong Type: BLOOD SPECIMENOrdering Facility: [facility] Address: [address] [place] [address] Performed By: #### 1 988-5 ####[facility] LABCLIA [id number] [place] [address] [place]#### 11015-7, 73413-5, 3094-0 ####[facility] LABCLIA [id number] [place] [address] [place] ESR Westergren method (Bld) [Velocity]on 12-18-2024 ESR (Bld) [Velocity] 2 mm/h Normal 0-20 [facility] Comment on above: Order Comment: Speci men Type: BLOOD SPECIMENOrdering Facility: [facility] Address: [address] [place] [address] Performed By: #### 5 7021-8, 4537-7 ####[facility] LABCLIA [id number] [address] [place] Hepatic function 2000 panelo n 12-18-2024 Albumin [Mass/Vol] 4.1 g/dL 3.9 - 4.9 g/dL [facility] ALP [Catalytic activity/Vol] 52 U/L 34 - 123 U/L [facility] ALT [Catalytic activity/Vol] 32 U/L 7 - 38 U/L [facility] AST [Catalytic activity/Vol] 22 U/L 13 - 35 U/L [facility] Bilirubin [Mass/Vol] 0.6 mg/dL 0.2 - 1.3 mg/dL [facility] Bilirubin.conjugated [Mass/Vol] 0.1 mg/dL NINF - 0.3 mg/dL [facility] Protein [Mass/Vol] 6.4 g/dL 6.3 - 8.0 g/dL [facility] Albumin [Mass/Vol] 4.1 g/dL Normal 3.9-4.9 [facility] Comment on above: Order Comment: Speci men Type: BLOOD SPECIMENOrdering Facility: [facility] Address: [address] [place] [address] Performed By: #### 1 988-5 ####[facility] LABCLIA [id number] [place] [address] [place]#### 73628-9, 24031-9, 3094-0 ####[facility] LABCLIA [id number] [place] [address] [place] ALP [Catalytic activity/Vol] 52 U/L Normal 34-123 [facility] Comment on above: Order Comment: Speci men Type: BLOOD SPECIMENOrdering Facility: [facility] Address: [address] [place] [address] Performed By: #### 1 988-5 ####[facility] LABCLIA [id number] [place] [address] [place]#### 76411-1, 00311-7, 3094-0 ####[facility] LABIA [id number] [place] [id number] [place] ALT [Catalytic activity/Vol] 32 U/L Normal 7-38 [facility] Comment on above: Order Comment: Speci men Type: BLOOD SPECIMENOrdering Facility: [facility] Address: [address] [place] [address] Performed By: #### 1 988-5 ####[facility] LABCLIA [id number] [address] [place]#### 29727-2, 44652-7, 3094-0 ####[facility] LABCLIA [id number] [place] [id number] [place] AST [Catalytic activity/Vol] 22 U/L Normal 13-35 [facility] Comment on above: Order Comment: Speci men Type: BLOOD SPECIMENOrdering Facility: [facility] Address: [address] [place], [place] [address] Performed By: #### 1 988-5 ####[facility] LABCLIA [id number] [place] [address] [place]#### 74364-5, 23080-4, 3094-0 ####[facility] LABCLIA [id number] [place] [address] [place] Bilirubin [Mass/Vol] 0.6 mg/dL Normal 0.2-1.3 [facility] Comment on above: Order Comment: Speci men Type: BLOOD SPECIMENOrdering Facility: [facility] Address: [address] [place] [address] Performed By: #### 1 988-5 ####[facility] LABCLIA [id number] [place] [address] [place]#### 60147-1, 15859-6, 3094-0 ####[facility] LABIA [id number] [place] [address] [place] Bilirubin.conjugated [Mass/Vol] 0.1 mg/dL Normal <0.3 [facility] Comment on above: Order Comment: Speci men Type: BLOOD SPECIMENOrdering Facility: [facility] Address: [address] [place] [address] Performed By: #### 1 988-5 ####[facility] LABCLIA [id number] [place] [address] [place]#### 96821-6, 95289-8, 3094-0 ####[facility] LABIA [id number] [place] [id number] [place] Protein [Mass/Vol] 6.4 g/dL Normal 6.3-8.0 [facility] Comment on above: Order Comment: Speci men Type: BLOOD SPECIMENOrdering Facility: [facility] Address: [address] [place] [id number] Performed By: #### 1 988-5 ####[facility] LABCLIA [id number] [place] [address] [place]#### 16542-2, 48682-1, 3094-0 ####[facility] LABCLIA [id number] [place] [address] [place] No Panel Informationon 12-18 Interpretation and review of laboratory results Normal [facility] UREA NITROGENon 12-18-2024 Urea nitrogen [Mass/Vol] 8 mg/dL 7 - 21 mg/dL [facility] BUN SerPl-mCncon 11-23-2024 Urea nitrogen [Mass/Vol] 6 mg/dL Low 7-21 [facility] Comment on above: Order Comment: Speci men Type: BLOOD SPECIMENOrdering Facility: [facility] Address: [address] [place] [address] Performed By: #### 2 4325-3, 3094-0, 16066-2, 1987-12 ####[facility] LABCLIA [id number] [place] [address] [place] CBC W Auto Differential pane l (Bld)on 11-23-2024 Basophils (Bld) [#/Vol] 0.06 10*3/uL Normal <0.11 [facility] Comment on above: Order Comment: Speci men Type: BLOOD SPECIMENOrdering Facility: [facility] Address: [address] [place] [address] Performed By: #### 5 7021-8, 4536-7 ####[facility] LABCLIA [id number] [place] [address] [place] Basophils/100 WBC (Bld) 0.9 % Normal [facility] Comment on above: Order Comment: Speci men Type: BLOOD SPECIMENOrdering Facility: [facility] Address: [address] [place] [address] Performed By: #### 5 7021-8, 7 ####[facility] LABCLIA [id number] [place] [id number] [place] Differential cell count method Nom (Bld) Auto Normal [facility] Comment on above: Order Comment: Speci men Type: BLOOD SPECIMENOrdering Facility: [facility] Address: [address] [place] [address] Performed By: #### 5 7021-8, 7-7 ####[facility] LABCLIA [id number] [place] [address] [place] Eosinophils (Bld) [#/Vol] 0.20 10*3/uL Normal <0.46 [facility] Comment on above: Order Comment: Speci men Type: BLOOD SPECIMENOrdering Facility: [facility] Address: [address] [place] [address] Performed By: #### 5 7021-8, 4536-7 ####[facility] LABCLIA [id number] [place] [address] [place] Eosinophils/100 WBC (Bld) 2.9 % Normal [facility] Comment on above: Order Comment: Speci men Type: BLOOD SPECIMENOrdering Facility: [facility] Address: [address] [place] [address] Performed By: #### 5 7021-8, 4536-7 ####[facility] LABCLIA [id number] [place] [address] [place] Erythrocyte distribution width (RBC) [Ratio] 12.3 % Normal 11.5-15.0 [facility] Comment on above: Order Comment: Speci men Type: BLOOD SPECIMENOrdering Facility: [facility] Address: [address] [place] [address] Performed By: #### 5 7021-8, 4536-7 ####[facility] LABCLIA [id number] [place] [id number] [place] Hematocrit (Bld) [Volume fraction] 41.3 % Normal 36.0-46.0 [facility] Comment on above: Order Comment: Speci men Type: BLOOD SPECIMENOrdering Facility: [facility] Address: [address] [place] [address] Performed By: #### 5 7021-8, 4536-7 ####[facility] LABCLIA [id number] [place] [address] [place] Hemoglobin (Bld) [Mass/Vol] 13.5 g/dL Normal 11.5-15.5 [facility] Comment on above: Order Comment: Speci men Type: BLOOD SPECIMENOrdering Facility: [facility] Address: [address] [place] [address] Performed By: #### 5 7021-8, 4537-7 ####[facility] LABCLIA [id number] [place] [address] [place] Immature granulocytes (Bld) [#/Vol] 0.04 10*3/uL Normal <0.10 [facility] Comment on above: Order Comment: Speci men Type: BLOOD SPECIMENOrdering Facility: [facility] Address: [address] [place] [address] Performed By: #### 5 7021-8, 4537-7 ####[facility] LABIA [id number] [place] [address] [place] Immature granulocytes/100 WBC (Bld) 0.6 % Normal [facility] Comment on above: Order Comment: Speci men Type: BLOOD SPECIMENOrdering Facility: [facility] Address: [address] [place] [address] Performed By: #### 5 7021-8, 4537-7 ####[facility] LABIA [id number] [place] [address] [place] Lymphocytes (Bld) [#/Vol] 2.79 10*3/uL Normal 1.00-4.00 [facility] Comment on above: Order Comment: Speci men Type: BLOOD SPECIMENOrdering Facility: [facility] Address: [address] [place] [address] Performed By: #### 5 7021-8, 4537-7 ####[facility] LABCLIA [id number] [address] [id number] [address] [place] Lymphocytes/100 WBC (Bld) 41.0 % Normal [facility] Comment on above: Order Comment: Speci men Type: BLOOD SPECIMENOrdering Facility: [facility] Address: [address] [place] [address] Performed By: #### 5 7021-8, 4536-7 ####[facility] LABCLIA [id number] [place] [address] [place] MCH (RBC) [Entitic mass] 30.2 pg Normal 26.0-34.0 [facility] Comment on above: Order Comment: Speci men Type: BLOOD SPECIMENOrdering Facility: [facility] Address: [address] [place] [address] Performed By: #### 5 7021-8, 4536-7 ####[facility] LABCLIA [id number] [place] [address] [place] MCHC (RBC) [Mass/Vol] 32.7 g/dL Normal 30.5-36.0 [facility] Comment on above: Order Comment: Speci men Type: BLOOD SPECIMENOrdering Facility: [facility] Address: [address] [place] [address] Performed By: #### 5 7021-8, 4536-7 ####[facility] LABIA [id number] [place] [address] [place] MCV (RBC) [Entitic vol] 92.4 fL Normal 80.0-100.0 [facility] Comment on above: Order Comment: Speci men Type: BLOOD SPECIMENOrdering Facility: [facility] Address: [address] [place] [address] Performed By: #### 5 7021-8, 7 ####[facility] LABCLIA [id number] [place] [address] [place] Monocytes (Bld) [#/Vol] 0.73 10*3/uL Normal <0.87 [facility] Comment on above: Order Comment: Speci men Type: BLOOD SPECIMENOrdering Facility: [facility] Address: [address] [place] [address] Performed By: #### 5 7021-8, 4536-7 ####[facility] LABCLIA [id number] [facility] [address] [place] [address] [place] Monocytes/100 WBC (Bld) 10.7 % Normal [facility] Comment on above: Order Comment: Speci men Type: BLOOD SPECIMENOrdering Facility: [facility] Address: [address] [place] [address] Performed By: #### 5 7021-8, 7 ####[facility] LABCLIA [id number] [address], [place] [address] [place] Neutrophils (Bld) [#/Vol] 2.98 10*3/uL Normal 1.45-7.50 [facility] Comment on above: Order Comment: Speci men Type: BLOOD SPECIMENOrdering Facility: [facility] Address: [address] [place] [address] Performed By: #### 5 7021-8, 7 ####[facility] LABCLIA [id number] [address], [place] [address] [place] Neutrophils/100 WBC (Bld) 43.9 % Normal [facility] Comment on above: Order Comment: Speci men Type: BLOOD SPECIMENOrdering Facility: [facility] Address: [address] [place] [address] Performed By: #### 5 7021-8, 4536-7 ####[facility] LABCLIA [id number] [place] [address] [place] Nucleated RBC (Bld) [#/Vol] 10*3/uL Normal <0.01 [facility] Comment on above: Order Comment: Speci men Type: BLOOD SPECIMENOrdering Facility: [facility] Address: [address] [place] [address] Performed By: #### 5 7021-8, 7-7 ####[facility] LABCLIA [id number] [place] [address] [place] Nucleated RBC/100 WBC (Bld) [Ratio] 0.0 /100 WBC Normal [facility] Comment on above: Order Comment: Speci men Type: BLOOD SPECIMENOrdering Facility: [facility] Address: [address] [place] [address] Performed By: #### 5 7021-8, 4536-7 ####[facility] LABIA [id number] [place] [address] [place] Platelet mean volume (Bld) [Entitic vol] 10.2 fL Normal 9.0-12.7 [facility] Comment on above: Order Comment: Speci men Type: BLOOD SPECIMENOrdering Facility: [facility] Address: [address] [place] [address] Performed By: #### 5 7021-8, 4536-7 ####[facility] LABIA [id number] [place] [address] [place] Platelets (Bld) [#/Vol] 425 10*3/uL High 150-400 [facility] Comment on above: Order Comment: Speci men Type: BLOOD SPECIMENOrdering Facility: [facility] Address: [address] [place] [address] Performed By: #### 5 7021-8, 4536-7 ####[facility] LABIA [id number] [place] [address] [place] RBC (Bld) [#/Vol] 4.47 10*6/uL Normal 3.90-5.20 [facility] Comment on above: Order Comment: Speci men Type: BLOOD SPECIMENOrdering Facility: [facility] Address: [address] [place] [address] Performed By: #### 5 7021-8, 4536-7 ####[facility] LABCLIA [id number] [address] [address] [place] WBC (Bld) [#/Vol] 6.80 10*3/uL Normal 3.70-11.00 [facility] Comment on above: Order Comment: Specclaire armstrong Type: BLOOD SPECIMENOrdering Facility: [facility] Address: [address] [place] [address] Performed By: #### 5 7021-8, 4537-7 ####[facility] LABCLIA [id number] [place] [address] [place] CNPNon 11-23-2024 CNPN Normal [facility] CRP SerPl-mCncon 11-23-2024 CRP [Mass/Vol] 2.3 mg/dL High <0.9 [facility] Comment on above: Order Comment: Hattiei nathaniel Type: BLOOD SPECIMENOrdering Facility: [facility] Address: [address] [place] [address] Performed By: #### 2 4325-3, 3094-0, 36428-1, 1988- ####[facility] LABIA [id number] [address] [place] Creatinine + eGFR Pnl SerPlB ldon 11-23-2024 Creatinine and Glomerular filtration rate.predicted panel (S/P/Bld) 128 mL/min/1.73m??? Normal >=60 [facility] Comment on above: Order Comment: Krystyna armstrong Type: BLOOD SPECIMENOrdering Facility: [facility] Address: [address] [place] [address] Result Comment: Imelda mated Glomerular Filtration Rate [...] reflect actual GFR. Performed By: #### 2 4325-3, 3093-0, 13320-3, 1987-12 ####[facility] LABCLIA [id number] [place] [address] [place] Creatinine and Glomerular fi ltration rate.predicted panel (S/P/Bld)on 11-23-2024 Creatinine [Mass/Vol] 0.50 mg/dL Low 0.58-0.96 [facility] Comment on above: Order Comment: Speci men Type: BLOOD SPECIMENOrdering Facility: [facility] Address: [address] [place] [address] Performed By: #### 2 4325-3, 0, , 1987-12 ####[facility] LABIA [id number] [place] [address] [place] ESR Westergren method (Bld) [Velocity]on 11-23-2024 ESR (Bld) [Velocity] 29 mm/h High 0-20 [facility] Comment on above: Order Comment: Speci men Type: BLOOD SPECIMENOrdering Facility: [facility] Address: [address] [place] [address] Performed By: #### 5 7021-8, 4537-7 ####[facility] LABIA [id number] [place] [address] [place] Hepatic function 2000 panelo n 11-23-2024 Albumin [Mass/Vol] 3.9 g/dL Normal 3.9-4.9 [facility] Comment on above: Order Comment: Speci men Type: BLOOD SPECIMENOrdering Facility: [facility] Address: [address] [place] [address] Performed By: #### 2 4325-3, 0, , 1987-12 ####[facility] LABIA [id number] [place] [address] [place] ALP [Catalytic activity/Vol] 74 U/L Normal 34-123 [facility] Comment on above: Order Comment: Speci men Type: BLOOD SPECIMENOrdering Facility: [facility] Address: [address] [place], [place] [address] Performed By: #### 2 4325-3, 3094-0, 27792-2, 1987-12 ####[facility] LABCLIA [id number] [address] [address] [place] ALT [Catalytic activity/Vol] 23 U/L Normal 7-38 [facility] Comment on above: Order Comment: Speci men Type: BLOOD SPECIMENOrdering Facility: [facility] Address: [address] [place], [place] [address] Performed By: #### 2 4325-3, 3094-0, 90384-5, 1987-12 ####[facility] LABCLIA [id number] [place] [address] [place] AST [Catalytic activity/Vol] 25 U/L Normal 13-35 [facility] Comment on above: Order Comment: Speci men Type: BLOOD SPECIMENOrdering Facility: [facility] Address: [address] [place], [place] [address] Performed By: #### 2 4325-3, 309-0, , 1987-12 ####[facility] LABCLIA [id number] [place] [address] [place] Bilirubin [Mass/Vol] 0.2 mg/dL Normal 0.2-1.3 [facility] Comment on above: Order Comment: Speci men Type: BLOOD SPECIMENOrdering Facility: [facility] Address: [address] [place], [place] [address] Performed By: #### 2 4325-3, 3094-0, 64109-1, 1987-12 ####[facility] LABCLIA [id number] [address] [address] [place] Bilirubin.conjugated [Mass/Vol] mg/dL Normal <0.3 [facility] Comment on above: Order Comment: Speci men Type: BLOOD SPECIMENOrdering Facility: [facility] Address: [address] [place], [place] [address] Performed By: #### 2 4325-3, 3094-0, 38207-0, 1987-12 ####[facility] LABIA [id number] [place] [address] [place] Protein [Mass/Vol] 7.2 g/dL Normal 6.3-8.0 [facility] Comment on above: Order Comment: Speci men Type: BLOOD SPECIMENOrdering Facility: [facility] Address: [address] [place] [address] Performed By: #### 2 4325-3, 3094-0, 79339-5, 1987-12 ####[facility] [id number] [place] [address] [place] Heteroph Ab Ser Ql LAon 11-13 Heterophile Ab LA Ql (S) Negative Normal Negative [facility] Comment on above: Order Comment: Speci men Type: BLOOD SPECIMENOrdering Facility: [facility] Address: [address] [place] [address] Result Comment: Infe ctious Mononucleosis rapid test [...] is required. Performed By: #### 5 213-4 ####[facility] LABIA [id number] [place] [address] [place] CNOVon 11-22-2024 CNOV Normal [facility] STREP A MOLECULAR (POC)on Procedural Control Valid [facility] Strep A (POCT) Negative Negative [facility] CNOVon 11-19-2024 CNOV Normal [facility] STREP A MOLECULAR (POC)on Procedural Control Valid [facility] Strep A (POCT) Negative Negative [facility] 12 Lead EKGon 11-09-2024 12 Lead EKG [facility] [address] [place] [address] 12 Lead EKG 11/09/24 0238 MR#: [id number] Acct: [id number] Name: LILIAM THOMPSON Rep #: [id number] : 1990 34 From: Oziel Nash MD [...] Sinus bradycardia Otherwise normal ECG Confirmed by OZIEL NASH MD ([id number]), movie editor BLAKE MEJÍA ([id number]) on 11/09/2024 8:26:25 AM Referred By: MEGAN Confirmed By: OZIEL NASH MD 11/09/24 08 Date Oziel Nash MD CC: Dr. Faustina Carcamo MD; Dr. Lisandro Rachel DO Signed Normal [facility] Basic Metabolic Profile (BMP )on 11-09-2024 BUN/CRE 8.6 RATIO Low 10-20 [facility] Comment on above: Performed By: #### L 100.0100, L501.4021, L500.2500 #### [facility] [address] [place], [address] Calcium [Mass/Vol] 9.5 mg/dL Normal 7.6-11.0 [facility] Comment on above: Performed By: #### L 100.0100, L501.4021, L500.2500 #### [facility] [address] [place], [address] Chloride [Moles/Vol] 107 mmol/L Normal 98-108 [facility] Comment on above: Performed By: #### L 100.0100, L501.4021, L500.2500 #### [facility] [address] [place], [address] CO2 [Moles/Vol] 16.3 mmol/L Low 21.0-32.0 [facility] Comment on above: Performed By: #### L 100.0100, L501.4021, L500.2500 #### [facility] [address] [place], [address] Creatinine [Mass/Vol] 0.63 mg/dL Low 0.70-1.20 [facility] Comment on above: Performed By: #### L 100.0100, L501.4021, L500.2500 #### [facility] [address] [place], [address] ECRCL 156.44 ml/min Normal 50-250 [facility] Comment on above: Performed By: #### L 100.0100, L501.4021, L500.2500 #### [facility] [address] [place], [address] GAP 18 High 5-15 [facility] Comment on above: Performed By: #### L 100.0100, L501.4021, L500.2500 #### [facility] [address] [place], [address] GFR/1.73 sq M.predicted among non-blacks MDRD (S/P/Bld) [Vol rate/Area] 121 mL/min/{1.73_m2} Normal >60 [facility] Comment on above: Result Comment: mL/m in/1.73m2 CKD-EPI Creatinine Equation (2020) Performed By: #### L 100.0100, L501.4021, L500.2500 #### [facility] [address] [place], [address] Glucose [Mass/Vol] 115 mg/dL High 70-99 [facility] Comment on above: Performed By: #### L 100.0100, L501.4021, L500.2500 #### [facility] [address] [place], [address] Potassium [Moles/Vol] 4.0 mmol/L Normal 3.3-5.1 [facility] Comment on above: Performed By: #### L 100.0100, L501.4021, L500.2500 #### [facility] [address] [place], [address] Sodium [Moles/Vol] 141 mmol/L Normal 133-145 [facility] Comment on above: Performed By: #### L 100.0100, L501.4021, L500.2500 #### [facility] [address] [place], [address] Urea nitrogen [Mass/Vol] 5 mg/dL Normal 4-19 [facility] Comment on above: Performed By: #### L 100.0100, L501.4021, L500.2500 #### [facility] [address] [place], [address] CBC W/Diff, Automatedon 03-2 Absolute Lymph 3.71 X10 3/uL Normal 0.83-4.51 [facility] Comment on above: Performed By: #### L 100.0100, L501.4021, L500.2500 #### [facility] [address] [place], [address] Absolute Neut 3.1 X10 3/uL Normal 2.0-7.7 [facility] Comment on above: Performed By: #### L 100.0100, L501.4021, L500.2500 #### [facility] [address] [place], [address] Basophils/100 WBC (Bld) 0.6 % Normal 0-1 [facility] Comment on above: Performed By: #### L 100.0100, L501.4021, L500.2500 #### [facility] [address] [place], [address] Eosinophils/100 WBC (Bld) 2.2 % Normal 0-5 [facility] Comment on above: Performed By: #### L 100.0100, L501.4021, L500.2500 #### [facility] [address] [place], [address] Erythrocyte distribution width (RBC) [Ratio] 12.1 % Normal 11.6-14.6 [facility] Comment on above: Performed By: #### L 100.0100, L501.4021, L500.2500 #### [facility] [address] [place], [address] Hematocrit (Bld) [Volume fraction] 38.4 % Normal 37-47 [facility] Comment on above: Performed By: #### L 100.0100, L501.4021, L500.2500 #### [facility] [address] [place], [address] Hemoglobin (Bld) [Mass/Vol] 13.3 g/dL Normal 12.0-15.0 [facility] Comment on above: Performed By: #### L 100.0100, L501.4021, L500.2500 #### [facility] [address] [place], [address] IG% 0.100 Normal 0.0-0.9 [facility] Comment on above: Result Comment: IG% - Immature Granulocytes (promyelocytes, myelocytes and metamyelocytes) > 1% indicates that a LEFT SHIFT is Present. Performed By: #### L 100.0100, L501.4021, L500.2500 #### [facility] [address], [address] Lymphocytes/100 WBC (Bld) 48.0 % High 19-41 [facility] Comment on above: Performed By: #### L 100.0100, L501.4021, L500.2500 #### [facility] [address] [place], [address] MCH (RBC) [Entitic mass] 30.6 pg Normal 27.0-32.0 [facility] Comment on above: Performed By: #### L 100.0100, L501.4021, L500.2500 #### [facility] [address] [place], [address] MCHC (RBC) [Mass/Vol] 34.6 g/dL Normal 32-36 [facility] Comment on above: Performed By: #### L 100.0100, L501.4021, L500.2500 #### [facility] [address] [place], [address] MCV (RBC) [Entitic vol] 88.5 fL Normal 81-99 [facility] Comment on above: Performed By: #### L 100.0100, L501.4021, L500.2500 #### [facility] [address] [place], [address] Monocytes/100 WBC (Bld) 8.7 % Normal 0-10 [facility] Comment on above: Performed By: #### L 100.0100, L501.4021, L500.2500 #### [facility] [address] [place], [address] Neutrophils/100 WBC (Bld) 40.4 % Low 47-70 [facility] Comment on above: Performed By: #### L 100.0100, L501.4021, L500.2500 #### [facility] [address] [place], [address] Nucleated RBC (Bld) [#/Vol] 0 10*3/uL Normal 0-5 [facility] Comment on above: Performed By: #### L 100.0100, L501.4021, L500.2500 #### [facility] [address] [place], [address] Platelet mean volume (Bld) [Entitic vol] 9.5 fL Normal 6.2-12.0 [facility] Comment on above: Performed By: #### L 100.0100, L501.4021, L500.2500 #### [facility] [address] [place], [address] Platelets (Bld) [#/Vol] 443 10*3/uL Normal 150-450 [facility] Comment on above: Performed By: #### L 100.0100, L501.4021, L500.2500 #### [facility] [address] [place], [address] RBC (Bld) [#/Vol] 4.34 10*6/uL Normal 4.2-5.4 [facility] Comment on above: Performed By: #### L 100.0100, L501.4021, L500.2500 #### [facility] [address] [place], [address] RDW SD 38.7 fl Normal 35.1-43.9 [facility] Comment on above: Performed By: #### L 100.0100, L501.4021, L500.2500 #### [facility] [address] [place], [address] WBC (Bld) [#/Vol] 7.7 10*3/uL Normal 4.4-11.0 [facility] Comment on above: Performed By: #### L 100.0100, L501.4021, L500.2500 #### [facility] [address] [place], [address] Chest PA and Lateralon 11-09 Chest PA and Lateral [facility] [address] [place] [address] Chest PA and Lateral MR#: [id number] Acct: [id number] Name: LILIAM THOMPSON Rep #: [id number] : 1990 F 34 From: Guillaume Parker MD PCP: Dr. Faustina Carcamo MD Status: [facility] ER Study: Chest PA and Lateral Date of Exam: 11/09/24 Exam# [id number] Ordering Dr: Lisandro Rachel DO PROCEDURE: CHEST [...] No evidence of acute disease. Reading Location: [facility] CC: Dr. Faustina Carcamo MD; Dr. Lisandro Rachel DO Centrifugal Wax Molder: Signed Normal [facility] Emergency Department Summary on 11-09-2024 Emergency Department Summary [facility] Medical Records Department [address] [place] [address] Emergency Department Summary 11/09/24 MR#: [id number] Acct: [id number] Name: LILIAM THOMPSON Rep #: [id number] : 1990 34 From: Lisandro Rachel DO PCP: Dr. Faustina Carcamo MD Status:[facility] ER Location: ED HPI History [...] travel denies any history of blood clots. [facility] Medical History Morbid (severe) obesity due [...] PO TID PRN 03/02/19 Un known History Anxiety/Restlessness/Sl eep medroxyprogesterone 150 mg/mL 150 mg IM .[id number] 03/02/19 Unkno wn History intramuscular syringe meloxicam [...] following commands knew that she was at [facility] years 2024 Skin: Warm, dry, intact [...] Pattern Blo (more content not included)... Normal [facility] L499.0042on 11-09-2024 Trop T High Sen < 6 Normal <=14 [facility] Comment on above: Performed By: #### L 100.0100, L501.4021, L500.2500 #### [facility] [address] [place], [address] L499.0043on 11-09-2024 Trop T High Sen Normal <=14 [facility] Comment on above: Result Comment: Canc elled via OM: Order cancelled - Patient discharged Performed By: #### L 100.0100, L501.4021, L500.2500 #### [facility] [address] [place], [address] L501.4021on 11-09-2024 Trop T High Sen < 6 Normal <=14 [facility] Comment on above: Performed By: #### L 100.0100, L501.4021, L500.2500 #### [facility] [address] [place], [address] M100.678on 11-09-2024 M100.678 Pending SARS-CoV-2 (COVID 19) Negative INFLUENZA A Negative INFLUENZA B Negative RSV PCR Negative Normal [facility] Comment on above: Performed By: #### L 100.0100, L501.4021, L500.2500 #### [facility] [address] [place], [address] CNOVon 10-31-2024 CNOV Normal [facility] CNPNon 10-29-2024 CNPN Normal [facility] CNOVon 10-24-2024 CNOV Normal [facility] XR WRIST 3V PA/LAT/OBL LTon 10-24-2024 XR WRIST 3V PA/LAT/OBL LT Normal [facility] XR Wrist - left PA and Later al and Obliqueon 10-24-2024 IMPRESSION: No radiographic evidence of acute osseous injury Centrifugal Wax Molder: REUBEN Transcribe Date/Time: Oct 24 2024 12:04P Dictated by : JAMES THURMAN MD This examination was interpreted and the report reviewed and electronically signed by: JAMES THURMAN MD on Oct 24 2024 12:05PM EST DIVISION OF RADIOLOGY * * *Final [...] Joint spaces preserved DIVISION OF RADIOLOGY [facility] * * *Final Report* * [...] No radiographic evidence of acute osseous injury Centrifugal Wax Molder: [facility] Transcribe Date/Time: Oct 24 2024 12:04P Dictated by : JAMES THURMAN MD This examination was interpreted and the report reviewed and electronically signed by: JAMES THURMAN MD on Oct 24 2024 12:05PM EST [facility] Radiology Study observation (narrative) [facility] XR Wrist - left PA and Later al and ObliqueOrdered By: Ccf Provider on 10-24-2024 [facility] METHYLMALONIC ACIDon 025 Methylmalonate [Moles/Vol] 0.31 umol/L [facility] umol/L [facility] Comment on above: This test was develo ped, and its performance characteristics determined by the [facility] Department of Pathology and Laboratory Medicine. It has not been cleared or approved by the FDA. The [facility] Department of Pathology and Laboratory Medicine is regulated under CLIA as qualified to perform high-complexity testing. This test is used for clinical purposes. It should not be regarded as investigational or for research. Methylmalonate [Moles/Vol]on 10-19-2024 Interpretation and review of laboratory results Normal [facility] 25(OH)D3 SerPl-mCncon 2024 25-hydroxyvitamin D3 [Mass/Vol] 17.0 ng/mL Low 31.0-80.0 [facility] Comment on above: Order Comment: Speci men Type: BLOOD SPECIMENOrdering Facility: [facility] Address: [address] [place] [address] Result Comment: Clas sification of 25 [place] Vitamin D status:Deficiency/Insufficiency: < or = 30 ng/ml.Sufficiency/Optimal Levels: 31-80 ng/mLToxicity: > 100 ng/mL.Test performed by chemiluminescent immunoassay. Performed By: #### 1 989-3 ####[facility] LABCLIA [id number] [place] [address] [place] CBC W Auto Differential pane l (Bld)on 10-17-2024 Basophils (Bld) [#/Vol] 0.03 10*3/uL Normal <0.11 [facility] Comment on above: Order Comment: Speci men Type: BLOOD SPECIMENOrdering Facility: [facility] Address: [address] [place] [address] Performed By: #### 5 7021-8 ####[facility] LABORATORYCLIA [id number] [place] [address] [place]#### 4537-7 ####[facility] LABCLIA [id number] [place] [address] [place] Basophils/100 WBC (Bld) 0.6 % Normal [facility] Comment on above: Order Comment: Speci men Type: BLOOD SPECIMENOrdering Facility: [facility] Address: [address] [place] [address] Performed By: #### 5 7021-8 ####[facility] LABORATORYCLIA [id number] [place] [address] [place]#### 4537-7 ####[facility] LABCLIA [id number] [place] [address] [place] Differential cell count method Nom (Bld) Auto Normal [facility] Comment on above: Order Comment: Speci men Type: BLOOD SPECIMENOrdering Facility: [facility] Address: [address] [place] [address] Performed By: #### 5 7021-8 ####[facility] LABORATORYCLIA [id number] [place] [address] [place]#### 4537-7 ####[facility] LABCLIA [id number] [place] [address] [place] Eosinophils (Bld) [#/Vol] 0.13 10*3/uL Normal <0.46 [facility] Comment on above: Order Comment: Speci men Type: BLOOD SPECIMENOrdering Facility: [facility] Address: [address] [place] [address] Performed By: #### 5 7021-8 ####[facility] LABORATORYCLIA [id number] [place] [address] [place]#### 4537-7 ####[facility] LABCLIA [id number] [place] [address] [place] Eosinophils/100 WBC (Bld) 2.4 % Normal [facility] Comment on above: Order Comment: Speci men Type: BLOOD SPECIMENOrdering Facility: [facility] Address: [address] [place] [address] Performed By: #### 5 7021-8 ####[facility] LABORATORYCLIA [id number] [place] [address] [place]#### 4537-7 ####[facility] LABCLIA [id number] [place] [address] [place] Erythrocyte distribution width (RBC) [Ratio] 12.2 % Normal 11.5-15.0 [facility] Comment on above: Order Comment: Speci men Type: BLOOD SPECIMENOrdering Facility: [facility] Address: [address] [place] [address] Performed By: #### 5 7021-8 ####[facility] LABORATORYCLIA [id number] [address] [place]#### 4537-7 ####[facility] LABCLIA [id number] [place] [address] [place] Hematocrit (Bld) [Volume fraction] 43.2 % Normal 36.0-46.0 [facility] Comment on above: Order Comment: Speci men Type: BLOOD SPECIMENOrdering Facility: [facility] Address: [address] [place] [address] Performed By: #### 5 7021-8 ####[facility] LABORATORYCLIA [id number] [place] [address] [place]#### 4537-7 ####[facility] LABCLIA [id number] [place] [address] [place] Hemoglobin (Bld) [Mass/Vol] 14.3 g/dL Normal 11.5-15.5 [facility] Comment on above: Order Comment: Speci men Type: BLOOD SPECIMENOrdering Facility: [facility] Address: [address] [place] [address] Performed By: #### 5 7021-8 ####[facility] LABORATORYCLIA [id number] [address] [place]#### 4537-7 ####[facility] LABCLIA [id number] [place] [address] [place] Immature granulocytes (Bld) [#/Vol] 10*3/uL Normal <0.10 [facility] Comment on above: Order Comment: Speci men Type: BLOOD SPECIMENOrdering Facility: [facility] Address: [address] [place] [address] Performed By: #### 5 7021-8 ####[facility]ORATORYCLIA [id number] [place] [address] [place]#### 4537-7 ####[facility] LABCLIA [id number] [place] [address] [place] Immature granulocytes/100 WBC (Bld) 0.2 % Normal [facility] Comment on above: Order Comment: Speci men Type: BLOOD SPECIMENOrdering Facility: [facility] Address: [address] [place] [address] Performed By: #### 5 7021-8 ####[facility]ORATORYCLIA [id number] [place] [address] [place]#### 4537-7 ####[facility] LABCLIA [id number] [place] [address] [place] Lymphocytes (Bld) [#/Vol] 2.43 10*3/uL Normal 1.00-4.00 [facility] Comment on above: Order Comment: Speci men Type: BLOOD SPECIMENOrdering Facility: [facility] Address: [address] [place] [address] Performed By: #### 5 7021-8 ####[facility]ORATORYCLIA [id number] [place] [address] [place]#### 4537-7 ####[facility] LABCLIA [id number] [place] [address] [place] Lymphocytes/100 WBC (Bld) 44.8 % Normal [facility] Comment on above: Order Comment: Speci men Type: BLOOD SPECIMENOrdering Facility: [facility] Address: [address] [place] [address] Performed By: #### 5 7021-8 ####[facility]ORATORYCLIA [id number] [place] [address] [place]#### 4537-7 ####[facility] LABCLIA [id number] [address] [place] MCH (RBC) [Entitic mass] 30.7 pg Normal 26.0-34.0 [facility] Comment on above: Order Comment: Speci men Type: BLOOD SPECIMENOrdering Facility: [facility] Address: [address] [place] [address] Performed By: #### 5 7021-8 ####[facility] LABORATORYCLIA [id number] [address]#### 4537-7 ####[facility] LABCLIA [id number] [place] [address] [place] MCHC (RBC) [Mass/Vol] 33.1 g/dL Normal 30.5-36.0 [facility] Comment on above: Order Comment: Speci men Type: BLOOD SPECIMENOrdering Facility: [facility] Address: [address] [place] [address] Performed By: #### 5 7021-8 ####[facility] LABORATORYCLIA [id number] [address]#### 4537-7 ####[facility] LABCLIA [id number] [place] [address] [place] MCV (RBC) [Entitic vol] 92.7 fL Normal 80.0-100.0 [facility] Comment on above: Order Comment: Speci men Type: BLOOD SPECIMENOrdering Facility: [facility] Address: [address] [place] [address] Performed By: #### 5 7021-8 ####[facility] LABORATORYCLIA [id number] [address]#### 4537-7 ####[facility] LABCLIA [id number] [place] [address] [place] Monocytes (Bld) [#/Vol] 0.52 10*3/uL Normal <0.87 [facility] Comment on above: Order Comment: Speci men Type: BLOOD SPECIMENOrdering Facility: [facility] Address: [address] [place] [address] Performed By: #### 5 7021-8 ####[facility]ORATORYCLIA [id number] [place] [address] [place]#### 4537-7 ####[facility] LABCLIA [id number] [place] [address] [place] Monocytes/100 WBC (Bld) 9.6 % Normal [facility] Comment on above: Order Comment: Speci men Type: BLOOD SPECIMENOrdering Facility: [facility] Address: [address] [place] [address] Performed By: #### 5 7021-8 ####[facility]ORATORYCLIA [id number] [place] [address] [place]#### 4537-7 ####[facility] LABCLIA [id number] [place] [address] [place] Neutrophils (Bld) [#/Vol] 2.31 10*3/uL Normal 1.45-7.50 [facility] Comment on above: Order Comment: Speci men Type: BLOOD SPECIMENOrdering Facility: [facility] Address: [address] [place] [address] Performed By: #### 5 7021-8 ####[facility]ORATORYCLIA [id number] [place] [address] [place]#### 4537-7 ####[facility] LABCLIA [id number] [place] [address] [place] Neutrophils/100 WBC (Bld) 42.4 % Normal [facility] Comment on above: Order Comment: Speci men Type: BLOOD SPECIMENOrdering Facility: [facility] Address: [address] [place] [address] Performed By: #### 5 7021-8 ####[facility]ORATORYCLIA [id number] [address] [place]#### 4537-7 ####[facility] LABCLIA [id number] [place] [address] [place] Nucleated RBC (Bld) [#/Vol] 10*3/uL Normal <0.01 [facility] Comment on above: Order Comment: Speci men Type: BLOOD SPECIMENOrdering Facility: [facility] Address: [address] [place] [address] Performed By: #### 5 7021-8 ####[facility] LABORATORYCLIA [id number] [address] [place]#### 4537-7 ####[facility] LABCLIA [id number] [place] [address] [place] Nucleated RBC/100 WBC (Bld) [Ratio] 0.0 /100 WBC Normal [facility] Comment on above: Order Comment: Speci men Type: BLOOD SPECIMENOrdering Facility: [facility] Address: [address] [place] [address] Performed By: #### 5 7021-8 ####[facility] LABORATORYCLIA [id number] [address] [place]#### 4537-7 ####[facility] LABCLIA [id number] [place] [address] [place] Platelet mean volume (Bld) [Entitic vol] 10.0 fL Normal 9.0-12.7 [facility] Comment on above: Order Comment: Speci men Type: BLOOD SPECIMENOrdering Facility: [facility] Address: [address] [place] [address] Performed By: #### 5 7021-8 ####[facility]ORATORYCLIA [id number] [address] [place]#### 4537-7 ####[facility] LABCLIA [id number] [address] [address] [place] Platelets (Bld) [#/Vol] 423 10*3/uL High 150-400 [facility] Comment on above: Order Comment: Speci men Type: BLOOD SPECIMENOrdering Facility: [facility] Address: [address] [place] [address] Performed By: #### 5 7021-8 ####[facility] LABORATORYCLIA [id number] [place] [address] [place]#### 4537-7 ####[facility] LABCLIA [id number] [place] [address] [place] RBC (Bld) [#/Vol] 4.66 10*6/uL Normal 3.90-5.20 [facility] Comment on above: Order Comment: Speci men Type: BLOOD SPECIMENOrdering Facility: [facility] Address: [address] [place] [address] Performed By: #### 5 7021-8 ####[facility] LABORATORYCLIA [id number] [place] [address] [place]#### 4537-7 ####[facility] LABCLIA [id number] [place] [address] [place] WBC (Bld) [#/Vol] 5.43 10*3/uL Normal 3.70-11.00 [facility] Comment on above: Order Comment: Speci men Type: BLOOD SPECIMENOrdering Facility: [facility] Address: [address] [place] [address] Performed By: #### 5 7021-8 ####[facility] LABORATORYCLIA [id number] [place] [address] [place]#### 4537-7 ####[facility] LABCLIA [id number] [address] [address] [place] CRP SerPl-mCncon 10-17-2024 CRP [Mass/Vol] mg/L Normal <0.9 [facility] Comment on above: Order Comment: Speci men Type: BLOOD SPECIMENOrdering Facility: [facility] Address: [address] [place] [address] Performed By: #### 1 988-5, 2132-9 ####[facility] LABORATORYCLIA [id number] [place] [address] [place] Cobalamin (Vitamin B12) [Mas s/Vol]on 10-17-2024 Interpretation and review of laboratory results Normal [facility] Comprehensive metabolic 2000 panelon 10-17-2024 Albumin [Mass/Vol] 4.2 g/dL 3.9 - 4.9 g/dL [facility] ALP [Catalytic activity/Vol] 73 U/L 34 - 123 U/L [facility] ALT With P-5'-P [Catalytic activity/Vol] 32 U/L 7 - 38 U/L [facility] Anion gap [Moles/Vol] 15 mmol/L 8 - 15 mmol/L [facility] AST With P-5'-P [Catalytic activity/Vol] 32 U/L 13 - 35 U/L [facility] Bilirubin [Mass/Vol] 0.3 mg/dL 0.2 - 1.3 mg/dL [facility] Calcium [Mass/Vol] 9.1 mg/dL 8.5 - 10. 2 mg/dL [facility] Chloride [Moles/Vol] 108 mmol/L High 98 - 107 mmol/L [facility] CO2 [Moles/Vol] 21 mmol/L Low 22 - 30 mmol/L [facility] Creatinine [Mass/Vol] 0.58 mg/dL 0.58 - 0.96 mg/dL [facility] GFR/1.73 sq M.predicted among non-blacks MDRD (S/P/Bld) [Vol rate/Area] 123 mL/min/{1.73_m2} - PINF [facility] Comment on above: Estimated Glomerular Filtration [...] 107 mg/dL High 74 - 99 mg/dL [facility] Comment on above: The [place] Diabete s Association (ADA) provides guidance for [...] Standards of Medical Care in Diabetes 2016, [place] [employer]. Diabetes Care. 2016.39(Suppl 1). Interpretation and review of laboratory results Abnormal [facility] Potassium [Moles/Vol] 4.4 mmol/L 3.7 - 5.1 mmol/L [facility] Protein [Mass/Vol] 6.9 g/dL 6.3 - 8.0 g/dL [facility] Sodium [Moles/Vol] 144 mmol/L 136 - 144 mmol/L [facility] Urea nitrogen [Mass/Vol] 7 mg/dL 7 - 21 mg/dL [facility] Albumin [Mass/Vol] 4.2 g/dL Normal 3.9-4.9 [facility] Comment on above: Order Comment: Speci men Type: BLOOD SPECIMENOrdering Facility: [facility] Address: [address] [place] [address] Performed By: #### 2 4323-8, 3051-0, 3024-7, 6-3 ####[facility] LABORATORYCLIA [id number] [place] [address] [place] ALP [Catalytic activity/Vol] 73 U/L Normal 34-123 [facility] Comment on above: Order Comment: Speci men Type: BLOOD SPECIMENOrdering Facility: [facility] Address: [address] [place] [address] Performed By: #### 2 4323-8, 3051-0, 3024-7, 3016-3 ####[facility] LABORATORYCLIA [id number] [place] [address] [place] ALT With P-5'-P [Catalytic activity/Vol] 32 U/L Normal 7-38 [facility] Comment on above: Order Comment: Speci men Type: BLOOD SPECIMENOrdering Facility: [facility] Address: [address] [place] [address] Performed By: #### 2 4323-8, 305-0, 7, 3015-3 ####[facility] LABORATORYCLIA [id number] [place] [address] [place] Anion gap [Moles/Vol] 15 mmol/L Normal 8-15 [facility] Comment on above: Order Comment: Speci men Type: BLOOD SPECIMENOrdering Facility: [facility] Address: [address] [place] [address] Performed By: #### 2 4323-8, 3050-0, 3024-02, 3015-3 ####[facility] LABORATORYCLIA [id number] [place], [place] [id number] [place] [address] [place] AST With P-5'-P [Catalytic activity/Vol] 32 U/L Normal 13-35 [facility] Comment on above: Order Comment: Speci men Type: BLOOD SPECIMENOrdering Facility: [facility] Address: [address] [place] [address] Performed By: #### 2 4323-8, 3050-0, 3024-02, 3015-3 ####[facility] LABORATORYCLIA [id number] [place] [address] [place] Bilirubin [Mass/Vol] 0.3 mg/dL Normal 0.2-1.3 [facility] Comment on above: Order Comment: Speci men Type: BLOOD SPECIMENOrdering Facility: [facility] Address: [address] [place] [address] Performed By: #### 2 4323-8, 305-0, 3023-7, 6-3 ####[facility] LABORATORYCLIA [id number] [place] [address] [place] Calcium [Mass/Vol] 9.1 mg/dL Normal 8.5-10.2 [facility] Comment on above: Order Comment: Speci men Type: BLOOD SPECIMENOrdering Facility: [facility] Address: [address] [place] [address] Performed By: #### 2 4323-8, 3051-0, 3024-7, 3016-3 ####[facility] LABORATORYCLIA [id number] [place] [id number] [place] Chloride [Moles/Vol] 108 mmol/L High 98-107 [facility] Comment on above: Order Comment: Speci men Type: BLOOD SPECIMENOrdering Facility: [facility] Address: [address] [place] [address] Performed By: #### 2 4323-8, 3051-0, 3024-7, 3016-3 ####[facility] LABORATORYCLIA [id number] [place] [address] [place] CO2 [Moles/Vol] 21 mmol/L Low 22-30 [facility] Comment on above: Order Comment: Speci men Type: BLOOD SPECIMENOrdering Facility: [facility] Address: [address] [place] [address] Performed By: #### 2 4323-8, 3051-0, 3024-7, 3016-3 ####[facility] LABORATORYCLIA [id number] [place] [id number] [place] Creatinine [Mass/Vol] 0.58 mg/dL Normal 0.58-0.96 [facility] Comment on above: Order Comment: Speci men Type: BLOOD SPECIMENOrdering Facility: [facility] Address: [address] [place] [address] Performed By: #### 2 4323-8, 3051-0, 3024-7, 3016-3 ####[facility] LABORATORYCLIA [id number] [place] [address] [place] Creatinine and Glomerular filtration rate.predicted panel (S/P/Bld) 123 mL/min/1.73m??? Normal >=60 [facility] Comment on above: Order Comment: Krystyna armstrong Type: BLOOD SPECIMENOrdering Facility: [facility] Address: [address] [place] [address] Result Comment: Imelda mated Glomerular Filtration Rate [...] reflect actual GFR. Performed By: #### 2 4323-8, 3051-0, 3024-7, 3016-3 ####[facility]ITAL[facility] [id number] [place] [address] [place] Glucose [Mass/Vol] 107 mg/dL High 74-99 [facility] Comment on above: Order Comment: Krystyna armstrong Type: BLOOD SPECIMENOrdering Facility: [facility] Address: [address] [place] [address] Result Comment: The [place] Diabetes Association (ADA) provides guidance for cutoff [...] Standards of Medical Care in Diabetes 2016, [place] [employer]. Diabetes Care. 2016.39(Suppl 1). Performed By: #### 2 4323-8, 3051-0, 3024-7, 3016-3 ####[facility] LABORATORYCLIA [id number] [place] [id number] [place] Potassium [Moles/Vol] 4.4 mmol/L Normal 3.7-5.1 [facility] Comment on above: Order Comment: Speci men Type: BLOOD SPECIMENOrdering Facility: [facility] Address: [address] [place] [address] Performed By: #### 2 4323-8, 3051-0, 3023-7, 6-3 ####[facility] LABORATORYCLIA [id number] [place] [id number] [place] Protein [Mass/Vol] 6.9 g/dL Normal 6.3-8.0 [facility] Comment on above: Order Comment: Speci men Type: BLOOD SPECIMENOrdering Facility: [facility] Address: [address] [place] [address] Performed By: #### 2 4323-8, 305-0, 3023-7, 3015-3 ####[facility]ITALCLIA [id number] [place] [address] [place] Sodium [Moles/Vol] 144 mmol/L Normal 136-144 [facility] Comment on above: Order Comment: Speci men Type: BLOOD SPECIMENOrdering Facility: [facility] Address: [address] [place] [address] Performed By: #### 2 4323-8, 305-0, 3023-7, 3015-3 ####[facility] LABORATORYCLIA [id number] [address] [place] Urea nitrogen [Mass/Vol] 7 mg/dL Normal 7-21 [facility] Comment on above: Order Comment: Speci men Type: BLOOD SPECIMENOrdering Facility: [facility] Address: [address] [place] [address] Performed By: #### 2 4323-8, 305-0, 3023-7, 6-3 ####[facility] LABORATORYCLIA [id number] [place] [address] [place] ESR Westergren method (Bld) [Velocity]on 10-17-2024 ESR (Bld) [Velocity] 5 mm/h Normal 0-20 [facility] Comment on above: Order Comment: Speci men Type: BLOOD SPECIMENOrdering Facility: [facility] Address: [address] [place] [address] Performed By: #### 5 7021-8 ####[facility] LABORATORYCLIA [id number] [place] [address] [place]#### 4537-7 ####[facility] LABCLIA [id number] [address] [place] Free T3 [Mass/Vol]on 025 Interpretation and review of laboratory results Normal [facility] Methylmalonate SerPl-sCncon 10-17-2024 Methylmalonate [Moles/Vol] 0.31 umol/L Normal <=0.40 [facility] Comment on above: Order Comment: Speci men Type: BLOOD SPECIMENOrdering Facility: [facility] Address: [address] [place] [address] Result Comment: This test was developed, and its performance characteristics determined by the [facility] Department of Pathology and Laboratory Medicine. It has not been cleared or approved by the FDA. The [facility] Department of Pathology and Laboratory Medicine is regulated under CLIA as qualified to perform high-complexity testing. This test is used for clinical purposes. It should not be regarded as investigational or for research. Performed By: #### 1 3964-2 ####[facility] LABCLIA [id number] [address] [place] No Panel Informationon 10-17 Interpretation and review of laboratory results Normal [facility] T3, FREEon 10-17-2024 Free T3 [Mass/Vol] 3.7 pg/mL 2.3 - 4.1 pg/mL [facility] T3Free SerPl-mCncon 10-18-19 25 Free T3 [Mass/Vol] 3.7 pg/mL Normal 2.3-4.1 [facility] Comment on above: Order Comment: Speci men Type: BLOOD SPECIMENOrdering Facility: [facility] Address: [address] [place] [address] Performed By: #### 2 4323-8, 3051-0, 3024-7, 3016-3 ####[facility] LABORATORYCLIA [id number] [place] [address] [place] [facility] T4 FREE/FREE THYROXINEon Free T4 [Mass/Vol] 1.2 ng/dL 0.9 - 1.7 ng/dL [facility] T4 Free SerPl-mCncon 025 Free T4 [Mass/Vol] 1.2 ng/dL Normal 0.9-1.7 [facility] Comment on above: Order Comment: Speci men Type: BLOOD SPECIMENOrdering Facility: [facility] Address: [address] [place] [address] Performed By: #### 2 4323-8, 3051-0, 3024-7, 3016-3 ####[facility] LABORATORYCLIA [id number] [place] [address] [facility] THYROID STIMULATING HORMONEo n 10-17-2024 TSH Qn 2.71 m[IU]/L [facility] Comment on above: If the patient [...] Perez, et al. 2017 Guidelines of the [place] Thyroid Association for the Diagnosis and Management of Thyroid Disease during and the . Thyroid, 2017:27:3:315-389. TSH SerPl-aCncon 10-17-2024 TSH Qn 2.710 m[IU]/L Normal 0.270-4.200 [facility] Comment on above: Order Comment: Speci men Type: BLOOD SPECIMENOrdering Facility: [facility] Address: [address] [place] [address] Result Comment: If t he patient is , TSH reference range varies by gestational period:First Trimester (weeks 9-12): 0.180-2.990 mIU/LSecond Trimester: 0.110-3.980 mIU/LThird Trimester: 0.480-4.710 mIU/Macario Cheng et al. A Practical Approach for the Verifications and Determination of Site- and Trimester-Specific Reference Intervals for Thyroid Function tests in . Thyroid, 2019:29:3:412-420. Rickey E, et al. 2017 Guidelines of the [place] Thyroid Association for the Diagnosis and Management of Thyroid Disease during and the . Thyroid, 2017:27:3:315-389. Performed By: #### 2 4323-8, 3051-0, 3024-7, 3016-3 ####[facility] LABORATORYCLIA [id number] [place] [id number] [place] [facility] VITAMIN B12on 10-17-2024 Cobalamin (Vitamin B12) [Mass/Vol] 271 pg/mL 232 - 1245 pg/mL [facility] Vit B12 SerPl-mCncon 025 Cobalamin (Vitamin B12) [Mass/Vol] 271 pg/mL Normal 232-1245 [facility] Comment on above: Order Comment: Speci men Type: BLOOD SPECIMENOrdering Facility: [facility] Address: [address] [place] [address] Performed By: #### 1 988-5, 2132-9 ####[facility] LABORATORYCLIA [id number] STATES OF [facility] CNOVon 10-16-2024 CNOV Normal [facility] CNOVon 09-25-2024 CNOV Normal [facility] XR CHEST 2V FRONTAL/LATon XR CHEST 2V FRONTAL/LAT Normal [facility] XR Chest PA and Lateralon IMPRESSION: No acute radiographic abnormality. Centrifugal Wax Molder: PSCB Transcribe Date/Time: Sep 25 2024 9:31A Dictated by : JONATAN RENEE MD This examination was interpreted and the report reviewed and electronically signed by: JONATAN RENEE MD on Sep 25 2024 9:31AM [facility] DIVISION OF RADIOLOGY * * *Final [...] soft tissues: Unremarkable. DIVISION OF RADIOLOGY Provider, [facility] - 09/25/2024 * * *Final Report* * [...] Unremarkable. IMPRESSION IMPRESSION: No acute radiographic abnormality. Centrifugal Wax Molder: [facility] Transcribe Date/Time: Sep 25 2024 9:31A Dictated by : JONATAN RENEE MD This examination was interpreted and the report reviewed and electronically signed by: JONATAN RENEE MD on Sep 25 2024 9:31AM EST [facility] Radiology Study observation (narrative) [facility] XR Chest PA and LateralOrder ed By: Ccf Provider on 09-25-2024 [facility] CNPNon 09-06-2024 CNPN Normal [facility] CNPNon 07-25-2024 CNPN Normal [facility] 12 Lead EKGon 07-20-2024 12 Lead EKG [facility] [address] [place] [address] 12 Lead EKG 07/20/24 1256 MR#: [id number] Acct: [id number] Name: LILIAM THOMPSON Rep #: [id number] : 1990 33 From: Selma Jackson MD [...] Abnormal ECG Confirmed by Selma Jackson ([id number]), movie editor BLAKE MEJÍA ([id number]) on 07/23/2024 6:54:04 AM Referred By: Confirmed By: Selma Jackson 07/23/24 0654 Date Selma Jackson MD CC: Dr. Nicholas Santiago DO; Dr. Faustina Carcamo MD Signed Normal [facility] Basic Metabolic Profile (BMP )on 07-20-2024 BUN/CRE 14.3 RATIO Normal 10-20 [facility] Comment on above: Order Comment: 1Y Performed By: #### L 500.2500, L501.6425, L100.0100 ####[facility] [address] [place], [address] CA,Total 8.9 mg/dL Normal 8.5-10.1 [facility] Comment on above: Order Comment: 1Y Performed By: #### L 500.2500, L501.5425, L100.0100 ####[facility] [address] [place], [address] Chloride [Moles/Vol] 109 mmol/L High 98-107 [facility] Comment on above: Order Comment: 1Y Performed By: #### L 500.2500, L501.5425, L100.0100 ####[facility] [address] [place], [address] CO2 [Moles/Vol] 25.0 mmol/L Normal 21.0-32.0 [facility] Comment on above: Order Comment: 1Y Performed By: #### L 500.2500, L501.5425, L100.0100 ####[facility] [address] [place], [address] Creatinine [Mass/Vol] 0.63 mg/dL Normal 0.55-1.02 [facility] Comment on above: Order Comment: 1Y Result Comment: The validity of the calculated GFR GFRAA in patients over 70 years has not been determined. Clinical correlation is essential. Performed By: #### L 500.2500, L501.5425, L100.0100 ####[facility] [address] [place], [address] ECRCL 158.53 ml/min Normal [facility] Comment on above: Order Comment: 1Y Performed By: #### L 500.2500, L501.5425, L100.0100 ####[facility] [address] [place], [address] EST GFR - AA 141 mL/min Normal >60 [facility] Comment on above: Order Comment: 1Y Result Comment: Afri can [place]ian GFR Calc Performed By: #### L 500.2500, L501.5425, L100.0100 ####[facility] [address] [place], [address] GAP 6 Normal 5-15 [facility] Comment on above: Order Comment: 1Y Performed By: #### L 500.2500, L501.5425, L100.0100 ####[facility] [address] [place], [address] GFR/1.73 sq M.predicted among non-blacks MDRD (S/P/Bld) [Vol rate/Area] 117 mL/min/{1.73_m2} Normal >60 [facility] Comment on above: Order Comment: 1Y Result Comment: Non- GFR Calc Performed By: #### L 500.2500, L501.5425, L100.0100 ####[facility] [address] [place], [address] Glucose [Mass/Vol] 116 mg/dL High 74-106 [facility] Comment on above: Order Comment: 1Y Result Comment: Fast ing Glucose result from 100 to 125 mg/dL suggests IMPAIRED HOMEOSTASIS per A.D.A. criteria. Performed By: #### L 500.2500, L501.5425, L100.0100 ####[facility] [address] [place], [address] Potassium [Moles/Vol] 4.0 mmol/L Normal 3.5-5.1 [facility] Comment on above: Order Comment: 1Y Performed By: #### L 500.2500, L501.5425, L100.0100 ####[facility] [address] [place], [address] Sodium [Moles/Vol] 139 mmol/L Normal 136-145 [facility] Comment on above: Order Comment: 1Y Performed By: #### L 500.2500, L501.5425, L100.0100 ####[facility] [address] [place], [address] Urea nitrogen [Mass/Vol] 9 mg/dL Normal 7-18 [facility] Comment on above: Order Comment: 1Y Performed By: #### L 500.2500, L501.5425, L100.0100 ####[facility] [address] [place], [address] CBC W/Diff, Automatedon 12-0 6-4 Absolute Lymph 2.16 X10 3/uL Normal 0.83-4.51 [facility] Comment on above: Performed By: #### L 500.2500, L501.5425, L100.0100 ####[facility] [address] [place], [address] Absolute Neut 3.0 X10 3/uL Normal 2.0-7.7 [facility] Comment on above: Performed By: #### L 500.2500, L501.5425, L100.0100 ####[facility] [address] [place], [address] Basophils/100 WBC (Bld) 0.5 % Normal 0-1 [facility] Comment on above: Performed By: #### L 500.2500, L501.5425, L100.0100 ####[facility] [address] [place], [address] Eosinophils/100 WBC (Bld) 0.5 % Normal 0-5 [facility] Comment on above: Performed By: #### L 500.2500, L501.5425, L100.0100 ####[facility] [address] [place], [address] Erythrocyte distribution width (RBC) [Ratio] 12.4 % Normal 11.6-14.6 [facility] Comment on above: Performed By: #### L 500.2500, L501.5425, L100.0100 ####[facility] [address] [place], [address] Hematocrit (Bld) [Volume fraction] 39.3 % Normal 37-47 [facility] Comment on above: Performed By: #### L 500.2500, L501.5425, L100.0100 ####[facility] [address] [place], [address] Hemoglobin (Bld) [Mass/Vol] 13.1 g/dL Normal 12.0-15.0 [facility] Comment on above: Performed By: #### L 500.2500, L501.5425, L100.0100 ####[facility] [address] [place], [address] IG% 0.200 Normal 0.0-0.9 [facility] Comment on above: Result Comment: IG% - Immature Granulocytes (promyelocytes, myelocytes and metamyelocytes) > 1% indicates that a LEFT SHIFT is Present. Performed By: #### L 500.2500, L501.5425, L100.0100 ####[facility] [address] [place], [address] Lymphocytes/100 WBC (Bld) 37.6 % Normal 19-41 [facility] Comment on above: Performed By: #### L 500.2500, L501.5425, L100.0100 ####[facility] [address] [place], [address] MCH (RBC) [Entitic mass] 30.8 pg Normal 27.0-32.0 [facility] Comment on above: Performed By: #### L 500.2500, L501.5425, L100.0100 ####[facility] [address] [place], [address] MCHC (RBC) [Mass/Vol] 33.3 g/dL Normal 32-36 [facility] Comment on above: Performed By: #### L 500.2500, L501.5425, L100.0100 ####[facility] [address] [place], [address] MCV (RBC) [Entitic vol] 92.5 fL Normal 81-99 [facility] Comment on above: Performed By: #### L 500.2500, L501.5425, L100.0100 ####[facility] [address] [place], [address] Monocytes/100 WBC (Bld) 9.6 % Normal 0-10 [facility] Comment on above: Performed By: #### L 500.2500, L501.5425, L100.0100 ####[facility] [address] [place], [address] Neutrophils/100 WBC (Bld) 51.6 % Normal 47-70 [facility] Comment on above: Performed By: #### L 500.2500, L501.5425, L100.0100 ####[facility] [address] [place], [address] Nucleated RBC (Bld) [#/Vol] 0 10*3/uL Normal 0-5 [facility] Comment on above: Performed By: #### L 500.2500, L501.5425, L100.0100 ####[facility] [address] [place], [address] Platelet mean volume (Bld) [Entitic vol] 9.0 fL Normal 6.2-12.0 [facility] Comment on above: Performed By: #### L 500.2500, L501.5425, L100.0100 ####[facility] [address] [place], [address] Platelets (Bld) [#/Vol] 411 10*3/uL Normal 150-450 [facility] Comment on above: Performed By: #### L 500.2500, L501.5425, L100.0100 ####[facility] [address] [place], [address] RBC (Bld) [#/Vol] 4.25 10*6/uL Normal 4.2-5.4 [facility] Comment on above: Performed By: #### L 500.2500, L501.5425, L100.0100 ####[facility] [address] [place], [address] RDW SD 42.0 fl Normal 35.1-43.9 [facility] Comment on above: Performed By: #### L 500.2500, L501.5425, L100.0100 ####[facility] [address] [place], [address] WBC (Bld) [#/Vol] 5.7 10*3/uL Normal 4.4-11.0 [facility] Comment on above: Performed By: #### L 500.2500, L501.5425, L100.0100 ####[facility] [address] [place], [address] Chest 1 View (Portable)on Chest 1 View (Portable) [facility] Imaging Services [address] [address] Chest 1 View (Portable) MR#: [id number] Acct: [id number] Name: LILIAM THOMPSON Rep #: [id number] : 1990 F 33 From: Milo cortez MD PCP: Dr. Faustina Carcamo MD Status: REG ER Study: Chest 1 View (Portable) Date of Exam: 07/20/24 Exam# [id number] Ordering Dr: [place] [id number] STUDY: X-RAY CHEST REASON FOR EXAM: Female, [...] Nicholas Santiago DO; Dr. Faustina Carcamo MD Centrifugal Wax Molder: Signed Normal [facility] Emergency Department Summary on 07-20-2024 Emergency Department Summary [facility] Medical Records Department [address] [place] [address] Emergency Department Summary 07/20/24 MR#: [id number] Acct: [id number] Name: LILIAM THOMPSON Rep #: [id number] : 1990 33 From: Nicholas Santiago DO [...] does not smoke. No history of DVT/PE. [facility] Medical History Morbid (severe) obesity due [...] mg PO TID PRN 03/02/19 Unknown History Anxiety/Restlessness/Sl eep medroxyprogesterone 150 mg/mL 150 mg IM .[id number] 03/02/19 Unknown History intramuscular syringe meloxicam 15 [...] tachycardic as (more content not included)... Normal [facility] L501.5425on 07-20-2024 TROPONIN-I HS 4 pg/mL Normal 3.0-54.0 [facility] Comment on above: Order Comment: 1Y Result Comment: Shameka chu Note: New Test Units and Gender Specific Reference Ranges. For more information see Policy Stat Procedure [place] High Sensitivity Troponin (TNIH) and attachments. Performed By: #### L 500.2500, L501.5425, L100.0100 ####[facility] [address] [place], [address] CNPNon 07-19-2024 CNPN Normal [facility] CNOVon 07-11-2024 CNOV Normal [facility] CNOVon 07-04-2024 CNOV Normal [facility] CBC W Auto Differential pane l (Bld)on 04-02-2024 Basophils (Bld) [#/Vol] 0.05 10*3/uL NINF [facility] Basophils/100 WBC (Bld) 0.6 % [facility] Differential cell count method Nom (Bld) Auto [facility] Eosinophils (Bld) [#/Vol] 0.14 10*3/uL [facility] Eosinophils/100 WBC (Bld) 1.6 % [facility] Erythrocyte distribution width (RBC) [Ratio] 12.4 % 11.5 - 15.0 % [facility] Hematocrit (Bld) [Volume fraction] 41.7 % 36.0 - 46.0 % [facility] Hemoglobin (Bld) [Mass/Vol] 13.6 g/dL 11.5 - 15.5 g/dL [facility] Immature granulocytes (Bld) [#/Vol] 0.04 10*3/uL [facility] Immature granulocytes/100 WBC (Bld) 0.5 % [facility] Interpretation and review of laboratory results Abnormal [facility] Lymphocytes (Bld) [#/Vol] 2.86 10*3/uL [facility] Lymphocytes/100 WBC (Bld) 32.6 % [facility] MCH (RBC) [Entitic mass] 31.8 pg 26.0 - 34.0 pg [facility] MCHC (RBC) [Mass/Vol] 32.6 g/dL 30.5 - 36.0 g/dL [facility] MCV (RBC) [Entitic vol] 97.4 fL 80.0 - 100.0 fL [facility] Monocytes (Bld) [#/Vol] 0.65 10*3/uL [facility] Monocytes/100 WBC (Bld) 7.4 % [facility] Neutrophils (Bld) [#/Vol] 5.03 10*3/uL [facility] Neutrophils/100 WBC (Bld) 57.3 % [facility] Nucleated RBC (Bld) [#/Vol] [facility] Nucleated RBC/100 WBC (Bld) [Ratio] 0.0 % /100 WBC [facility] Platelet mean volume (Bld) [Entitic vol] 10.2 fL 9.0 - 12.7 fL [facility] Platelets (Bld) [#/Vol] 423 10*3/uL High [facility] RBC (Bld) [#/Vol] 4.28 10*6/uL 3.90 - 5.2 0 m/uL [facility] WBC (Bld) [#/Vol] 8.77 10*3/uL [facility] XR Chest PA and Lateralon IMPRESSION: No acute radiographic abnormality. Centrifugal Wax Molder: REUBEN Transcribe Date/Time: Apr 02 2024 3:48P Dictated by : LOU JUARES MD This examination was interpreted and the report reviewed and electronically signed by: LOU JUARES MD on Apr 02 2024 3:49PM [facility] DIVISION OF RADIOLOGY * * *Final [...] soft tissues: Unremarkable. DIVISION OF RADIOLOGY Provider, [facility] - 04/02/2024 * * *Final Report* [...] Unremarkable. IMPRESSION IMPRESSION: No acute radiographic abnormality. Centrifugal Wax Molder: REUBEN Transcribe Date/Time: Apr 02 2024 3:48P Dictated by : LOU JUARES MD This examination was interpreted and the report reviewed and electronically signed by: LOU JUARES MD on Apr 02 2024 3:49PM EST [facility] Radiology Study observation (narrative) [facility] XR Chest PA and LateralOrder ed By: Ccf Provider on 04-02-2024 [facility] UA DIP,URINE HCG (POC)on Beta HCG ( test) Ql (U) Negative Negative [facility] Comment on above: Location:[facility], [address], [place], [address] College Director (POCT) Internal QC OK [facility] Location:[facility], [address], [place], [address] [facility] POINT OF CARE [facility] XR Shoulder - left 2 Viewson 10-16-2023 IMPRESSION: 1. No acute radiographic abnormality of the left shoulder Centrifugal Wax Molder: REUBEN Transcribe Date/Time: Oct 16 2023 2:20P Dictated by : ELIAS ARNOLD MD This examination was interpreted and the report reviewed and electronically signed by: ELIAS ARNOLD MD on Oct 16 2023 2:21PM EST DIVISION OF RADIOLOGY * * *Final [...] within normal limits. DIVISION OF RADIOLOGY Provider, Chichi Oakes - 10/16/2023 * * *Final Report* * [...] acute radiographic abnormality of the left shoulder Centrifugal Wax Molder: PSCB Transcribe Date/Time: Oct 16 2023 2:20P Dictated by : ELIAS ARNOLD MD This examination was interpreted and the report reviewed and electronically signed by: ELIAS ARNOLD MD on Oct 16 2023 2:21PM EST [facility] XR Shoulder - left 2 ViewsOr dered By: Ccf Provider on 10-16-2023 [facility] XR Shoulder - left 2 Viewson 10-14-2023 Radiology Study observation (narrative) [facility] PELVIC US WHIon 07-25-2023 [facility] No Panel Informationon 06-06 [facility] ALLIED HEALTHon 05-19-2023 ALLIED HEALTH HNO ID: [id number] Author: Jose Herrera Tech Service: ? Author [...] Saima Fuchs May 19, 2023 1:12 AM [facility] CBC panel Auto (Bld)on 05-19 Erythrocyte distribution width (RBC) [Ratio] 12.2 % Normal 11.5-15.0 [facility] Comment on above: Order Comment: Speci men Type: BLOOD SPECIMENOrdering Facility: [facility] Address: [address] [place] [address] Performed By: #### 5 8410-2 ####J[facility] LABORATORYCLIA [id number] [address] [place] [address] [place] Hematocrit (Bld) [Volume fraction] 41.1 % Normal 36.0-46.0 [facility] Comment on above: Order Comment: Speci men Type: BLOOD SPECIMENOrdering Facility: [facility] Address: [address] [place] [address] Performed By: #### 5 8410-2 ####J[facility] LABORATORYCLIA [id number] [place] [address] [place] Hemoglobin (Bld) [Mass/Vol] 13.5 g/dL Normal 11.5-15.5 [facility] Comment on above: Order Comment: Speci men Type: BLOOD SPECIMENOrdering Facility: [facility] Address: [address] [place] [address] Performed By: #### 5 8410-2 ####J[facility] LABORATORYCLIA [id number] [address] [place] MCH (RBC) [Entitic mass] 31.1 pg Normal 26.0-34.0 [facility] Comment on above: Order Comment: Speci men Type: BLOOD SPECIMENOrdering Facility: [facility] Address: [address] [place] [address] Performed By: #### 5 8410-2 ####J[facility] LABORATORYCLIA [id number] [address] [place] MCHC (RBC) [Mass/Vol] 32.8 g/dL Normal 30.5-36.0 [facility] Comment on above: Order Comment: Speci men Type: BLOOD SPECIMENOrdering Facility: [facility] Address: [address] [place] [address] Performed By: #### 5 8410-2 ####JEW LABORATORYCLIA [id number] [address] [place], [place] [id number] [place] MCV (RBC) [Entitic vol] 94.7 fL Normal 80.0-100.0 [facility] Comment on above: Order Comment: Speci men Type: BLOOD SPECIMENOrdering Facility: [facility] Address: [address] [place] [address] Performed By: #### 5 8410-2 ####JEW LABORATORYCLIA [id number] [address] [place] [address] [place] Nucleated RBC (Bld) [#/Vol] 10*3/uL Normal <0.01 [facility] Comment on above: Order Comment: Speci men Type: BLOOD SPECIMENOrdering Facility: [facility] Address: [address] [place] [address] Performed By: #### 5 8410-2 ####JEW LABORATORYCLIA [id number] [address] [place], [place] [id number] [place] Platelet mean volume (Bld) [Entitic vol] 9.9 fL Normal 9.0-12.7 [facility] Comment on above: Order Comment: Speci men Type: BLOOD SPECIMENOrdering Facility: [facility] Address: [address] [place] [address] Performed By: #### 5 8410-2 ####JEW LABORATORYCLIA [id number] [place] [address] [place] Platelets (Bld) [#/Vol] 510 10*3/uL High 150-400 [facility] Comment on above: Order Comment: Speci men Type: BLOOD SPECIMENOrdering Facility: [facility] Address: [address] [place] [address] Performed By: #### 5 8410-2 ####JEW LABORATORYCLIA [id number] [address] [place] [address] [place] RBC (Bld) [#/Vol] 4.34 10*6/uL Normal 3.90-5.20 [facility] Comment on above: Order Comment: Speci men Type: BLOOD SPECIMENOrdering Facility: [facility] Address: [address] [place] [address] Performed By: #### 5 8410-2 ####JEW LABORATORYCLIA [id number] [place] [id number] [place] WBC (Bld) [#/Vol] 12.65 10*3/uL High 3.70-11.[address] [facility] Comment on above: Order Comment: Speci men Type: BLOOD SPECIMENOrdering Facility: [facility] Address: [address] [place] [address] Performed By: #### 5 8410-2 ####JEW LABORATORYCLIA [id number] [place] [id number] [facility] Comprehensive metabolic 2000 panelon 05-19-2023 Albumin [Mass/Vol] 4.1 g/dL Normal 3.9-4.9 [facility] Comment on above: Order Comment: Speci men Type: BLOOD SPECIMENOrdering Facility: [facility] Address: [address] [place] [address] Performed By: #### 3 016-3, 18223-1, 94651-9, [id number] ####JEW LABORATORYCLIA [id number] [place] [id number] [place] ALP [Catalytic activity/Vol] 104 U/L Normal 34-123 [facility] Comment on above: Order Comment: Speci men Type: BLOOD SPECIMENOrdering Facility: [facility] Address: [address] [place] [address] Performed By: #### 3 016-3, 84522-7, 53089-4, [id number] ####JEW LABORATORYCLIA [id number] [place] [id number] [place] ALT [Catalytic activity/Vol] 22 U/L Normal 7-38 [facility] Comment on above: Order Comment: Speci men Type: BLOOD SPECIMENOrdering Facility: [facility] Address: [address] [place] [address] Performed By: #### 3 016-3, 08233-6, 53679-1, [id number] ####JEW LABORATORYCLIA [id number] [address] [place] [address] [place] Anion gap [Moles/Vol] 12 mmol/L Normal 9-18 [facility] Comment on above: Order Comment: Speci men Type: BLOOD SPECIMENOrdering Facility: [facility] Address: [address] [place] [address] Performed By: #### 3 016-3, 70447-1, , [id number] ####JEW LABORATORYCLIA [id number] [address] [place], [place] [id number] [place] AST [Catalytic activity/Vol] 19 U/L Normal 13-35 [facility] Comment on above: Order Comment: Speci men Type: BLOOD SPECIMENOrdering Facility: [facility] Address: [address] [place] [address] Performed By: #### 3 016-3, 74521-7, , [id number] ####JEW LABORATORYCLIA [id number] [place] [id number] [place] Bilirubin [Mass/Vol] mg/dL Low 0.2-1.[address] [facility] Comment on above: Order Comment: Speci men Type: BLOOD SPECIMENOrdering Facility: [facility] Address: [address] [place] [address] Performed By: #### 3 016-3, 50439-2, , [id number] ####JEW LABORATORYCLIA [id number] [place] [id number] [place] Calcium [Mass/Vol] 9.2 mg/dL Normal 8.5-10.2 [facility] Comment on above: Order Comment: Speci men Type: BLOOD SPECIMENOrdering Facility: [facility] Address: [address] [place] [address] Performed By: #### 3 016-3, 26480-5, , [id number] ####JEW LABORATORYCLIA [id number] [place] [id number] [place] Chloride [Moles/Vol] 106 mmol/L High 97-[address] [facility] Comment on above: Order Comment: Speci men Type: BLOOD SPECIMENOrdering Facility: [facility] Address: [address] [place] [address] Performed By: #### 3 016-3, 10545-7, , [id number] ####JEW LABORATORYCLIA [id number] [place] [id number] [place] CO2 [Moles/Vol] 21 mmol/L Low 22-30 [facility] Comment on above: Order Comment: Speci men Type: BLOOD SPECIMENOrdering Facility: [facility] Address: [address] [place] [address] Performed By: #### 3 016-3, 14005-9, , [id number] ####JEW LABORATORYCLIA [id number] [place] [address] [place] Creatinine [Mass/Vol] 0.50 mg/dL Low 0.58-0.96 [facility] Comment on above: Order Comment: Speci men Type: BLOOD SPECIMENOrdering Facility: [facility] Address: [address] [place] [address] Performed By: #### 3 016-3, 45120-8, , [id number] ####JEW LABORATORYCLIA [id number] [address] Creatinine and Glomerular filtration rate.predicted panel (S/P/Bld) 130 mL/min/1.73m??? Normal >=60 [facility] Comment on above: Order Comment: Speci men Type: BLOOD SPECIMENOrdering Facility: [facility] Address: [address] [place] [address] Result Comment: Imelda mated Glomerular Filtration Rate [...] actual GFR. Performed By: #### 3 016-3, 42424-5, , [id number] ####JEW LABORATORYCLIA [id number] [place] [id number] [place] Glucose [Mass/Vol] 135 mg/dL High 74-99 [facility] Comment on above: Order Comment: Speci men Type: BLOOD SPECIMENOrdering Facility: [facility] Address: [address] [place] [address] Result Comment: The [place] Diabetes Association (ADA) provides guidance for cutoff [...] Standards of Medical Care in Diabetes 2016, [place] [employer] Association. Diabetes Care. 2016.39(Suppl 1). Performed By: #### 3 016-3, 19088-8, , [id number] ####JEW LABORATORYCLIA [id number] [place] [id number] [place] Potassium [Moles/Vol] 3.9 mmol/L Normal 3.7-5.1 [facility] Comment on above: Order Comment: Speci men Type: BLOOD SPECIMENOrdering Facility: [facility] Address: [address] [place] [address] Performed By: #### 3 016-3, 73181-5, , [id number] ####JEW LABORATORYCLIA [id number] [place] [id number] [place] Protein [Mass/Vol] 7.2 g/dL Normal 6.3-8.0 [facility] Comment on above: Order Comment: Speci men Type: BLOOD SPECIMENOrdering Facility: [facility] Address: [address] [place] [address] Performed By: #### 3 016-3, 88793-8, 59190-4, [id number] ####JEW LABORATORYCLIA [id number] [place] [address] [place] Sodium [Moles/Vol] 139 mmol/L Normal 136-144 [facility] Comment on above: Order Comment: Speci men Type: BLOOD SPECIMENOrdering Facility: [facility] Address: [address] [place] [address] Performed By: #### 3 016-3, 71027-2, , [id number] ####JEW LABORATORYCLIA [id number] [place] [id number] [place] Urea nitrogen [Mass/Vol] 10 mg/dL Normal 7-21 [facility] Comment on above: Order Comment: Speci men Type: BLOOD SPECIMENOrdering Facility: [facility] Address: [address] [place] [address] Performed By: #### 3 016-3, 54946-9, , [id number] ####JEW LABORATORYCLIA [id number] [place] [id number] [place] D dimer FEU PPP-mCncon 05-19 Fibrin D-dimer FEU (PPP) [Mass/Vol] 240 ng/mL FEU Normal <500 [facility] Comment on above: Order Comment: Speci men Type: BLOOD SPECIMEN [facility] Address: [address] [place] [address] Performed By: #### 4 8065-7 #### [facility] CLIA [id number] [place], [place] [address] [place] ECG COMPLETEon 05-19-2023 ECG COMPLETE Ventricular Rate : 1 40 BPM Atrial Rate : 140 BPM P-R Interval : 141 ms QRS Duration : 72 ms Q-T Interval : 292 ms QTC Calculation(Bazett) : 446 ms Calculated P [employer] : 48 degrees Calculated R [employer] : 75 degrees Calculated T [employer] : -23 degrees Sinus tachycardia Low voltage, precordial leads Nonspecific T abnormalities, diffuse leads Abnormal ECG NO STEMI. 2355 Confirmed by DO PICKETT NICHOLAS ([id number]), movie editor MAURA NGUYEN ([id number]) on 05/19/2023 1:20:46 PM NAME : LILIAM THOMPSON PID : [id number] : 1990 Gender : Female Race : ORD : [id number] Procedure Date : May 18 2023 23:52:49 Edit Date : May 19 2023 13:20:47 Diagnosis: Sinus tachycardia Low voltage, precordial leads Nonspecific T abnormalities, diffuse leads Abnormal ECG NO STEMI. 2355 Confirmed by DO PICKETT NICHOLAS ([id number]), movie editor MAURA NGUYEN ([id number]) on 05/19/2023 1:20:46 PM Test Reason : Palpitations Location : [address] : [place] [address] Overread By : DO PICKETT NICHOLAS Edited By : MAURA NGUYEN Referred By : , Acquired by : BY, [facility] ED NOTEon 05-19-2023 ED NOTE HNO ID: [id number] Author: Beena Camara RN Service: ? Author Type: Registered Nurse Type: ED Notes Filed: 05/19/2023 4:15 AM Note Text: Discharge paperwork gone over with patient. Iv discontinued. [facility] ED NOTE HNO ID: [id number] Author: Catherine Hitchcock CT Service: ? Author Type: Clinical Market Development Director Type: ED Notes Filed: 05/18/2023 11:45 PM Note Text: Pt to ED for palpitations that started around 2200 tonight. Pt states she had one cocktail and when she got home pt states I got nauseous, felt like I was going to pass out and my left hand and left foot felt numb. [facility] ED PROV NOTEon 05-19-2023 ED PROV NOTE HNO ID: [id number] Author: Jonathan Pickett DO Service: Emergency Medicine [...] abdominal pain Fibromyalgia Dr. 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 Kelly @[facility] Migraine with aura visual aura; diagnosed with [...] for light-headedness and numbness. Negative for syncope. Psychiatric/Behavioral: The patient is nervous/anxious. All other systems [...] nursing note r (more content not included)... [facility] EKGon 05-19-2023 Electrocardiogram Ventricular Rate : 9 2 BPM Atrial Rate : 92 BPM P-R Interval : 144 ms QRS Duration : 72 ms Q-T Interval : 332 ms QTC Calculation(Bazett) : 411 ms Calculated P [employer] : 24 degrees Calculated R [employer] : 38 degrees Calculated T [employer] : -9 degrees Sinus rhythm Borderline Q waves in inferior leads Inferior infarct, age indeterminate Abnormal ECG NO STEMI. 0326 Confirmed by DO PICKETT NICHOLAS ([id number]), movie editor MAURA NGUYEN ([id number]) on 05/19/2023 1:21:17 PM NAME : LILIAM THOMPSON PID : [id number] : 1990 Gender : Female Race : ORD : Procedure Date : May 19 2023 03:19:50 Edit Date : May 19 2023 13:21:19 Diagnosis: Sinus rhythm Borderline Q waves in inferior leads Inferior infarct, age indeterminate Abnormal ECG NO STEMI. 0326 Confirmed by DO PICKETT NICHOLAS ([id number]), movie editor MAURA NGUYEN ([id number]) on 05/19/2023 1:21:17 PM Test Reason : Location : 502 : [facility] 14 Overread By : DO PICKETT NICHOLAS Edited By : MAURA NGUYEN Referred By : , Acquired by : BY, Normal [facility] HCG QUAL BLDon 05-19-2023 HCG, QUALITATIVE Negative Normal Negative [facility] Comment on above: Order Comment: Krystyna [place] Type: BLOOD SPECIMEN [facility] Address: [address] [place] [address] Performed By: #### H CG #### [facility] CLIA [id number] [address] [place] [address] [place] HIGH SENSITIVITY TROPONIN T (INITIAL)on 05-19-2023 Troponin T.cardiac High sensitivity method [Mass/Vol] <6 Normal <12 [facility] Comment on above: Order Comment: [place] Type: BLOOD SPECIMENOrdering Facility: [facility] Address: [address] [place] [address] Result Comment: When assessing risk for acute [...] day MACE. Performed By: #### 3 016-3, 43405-2, 80939-2, [id number] ####JEW LABORATORYCLIA [id number] [place] [address] [place] HIGH SENSITIVITY TROPONIN T (SECOND)on 05-19-2023 Troponin T.cardiac High sensitivity method [Mass/Vol] <6 Normal <12 [facility] Comment on above: Order Comment: Speci men Type: BLOOD SPECIMEN [facility] Address: [address] [place] [address] Result Comment: When assessing risk for acute [...] 30 day MACE. Performed By: #### L [id number] #### [facility] CLIA [id number] [address] [place] [address] [place] Magnesium SerPl-mCncon 05-19 Magnesium [Mass/Vol] 1.8 mg/dL Normal 1.7-2.[address] [facility] Comment on above: Order Comment: Speci men Type: BLOOD SPECIMENOrdering Facility: [facility] Address: [address] [place] [address] Performed By: #### 3 016-3, 11961-8, 85633-6, [id number] ####JEW LABORATORYCLIA [id number] [place] [id number] [place] TOX SCREEN ROUT URon 023 Amphetamines Confirm (U) [Mass/Vol] Negative Normal Negative [facility] Comment on above: Order Comment: Speci men Type: URINE SPECIMEN [facility] Address: [address] [place] [address] Result Comment: Cuto ff threshold at 1000 ng/mL. Performed By: #### U TOX2 #### [facility] CLIA [id number] [address] [place] [address] [place] BARBITURATES, URINE Negative Normal Negative [facility] Comment on above: Order Comment: Speci men Type: URINE SPECIMEN [facility] Address: [address] [place] [address] Result Comment: Cuto ff threshold at 200 ng/mL. Performed By: #### U TOX2 #### [facility] CLIA [id number] [address] [place] [address] [place] BENZODIAZEPINES, UR Negative Normal Negative [facility] Comment on above: Order Comment: Speci men Type: URINE SPECIMEN [facility] Address: [address] [place] [address] Result Comment: Cuto ff threshold at 200 ng/mL. Performed By: #### U TOX2 #### [facility] CLIA [id number] [address] [place] [address] [place] Cannabinoids Screen Ql (U) Negative Normal Negative [facility] Comment on above: Order Comment: Speci men Type: URINE SPECIMEN [facility] Address: [address] [place] [address] Result Comment: Cuto ff threshold at 50 ng/mL. Performed By: #### U TOX2 #### [facility] CLIA [id number] [address] [place] [address] [place] Cocaine Ql (U) Negative Normal Negative [facility] Comment on above: Order Comment: Speci men Type: URINE SPECIMEN [facility] Address: [address] [place] [address] Result Comment: Cuto ff threshold at 300 ng/mL. Performed By: #### U TOX2 #### [facility] CLIA [id number] [address] [place] [address] [place] Ethanol (U) [Mass/Vol] <11 Normal <11 [facility] Comment on above: Order Comment: Speci men Type: URINE SPECIMEN [facility] Address: [address] [place] [address] Performed By: #### U TOX2 #### [facility] CLIA [id number] [address] [place] [address] [place] Opiates Screen Ql (U) Negative Normal Negative [facility] Comment on above: Order Comment: Speci men Type: URINE SPECIMEN [facility] Address: [address] [place] [address] Result Comment: Cuto ff threshold at 300 ng/mL. Performed By: #### U TOX2 #### [facility] CLIA [id number] [address] [place] [address] [place] oxyCODONE cutoff Screen (U) [Mass/Vol] Negative Normal Negative [facility] Comment on above: Order Comment: Speci men Type: URINE SPECIMEN [facility] Address: [address] [place] [address] Result Comment: Cuto ff threshold at 100 ng/mL. Performed By: #### U TOX2 #### [facility] CLIA [id number] [address] [place] [address] [place] Phencyclidine Ql (U) Negative Normal Negative [facility] Comment on above: Order Comment: Speci men Type: URINE SPECIMEN [facility] Address: [address] [place] [address] Result Comment: Cuto ff threshold at 25 ng/mL. Performed By: #### U TOX2 #### [facility] CLIA [id number] [address] [place] [address] [place] TSH SerPl-aCncon 05-19-2023 TSH Qn 5.640 m[IU]/L High 0.270-4.200 [facility] Comment on above: Order Comment: Speci men Type: BLOOD SPECIMENOrdering Facility: [facility] Address: [address] [place] [address] Result Comment: If t he patient is , TSH reference range varies by gestational period: First Trimester (weeks 9-12): 0.180-2.990 mIU/L Second Trimester: 0.110-3.980 mIU/L Third Trimester: 0.480-4.710 mIU/L Mark Cheng et al. A Practical Approach for the Verifications and Determination of Site- and Trimester-Specific Reference Intervals for Thyroid Function tests in . Thyroid, 2019:29:3:412-420. Rickey E, et al. 2017 Guidelines of the [place] Thyroid Association for the Diagnosis and Management of Thyroid Disease during and the . Thyroid, 2017:27:3:315-389. Performed By: #### 3 016-3, 38093-8, 33072-2, [id number] ####JEW LABORATORYCLIA [id number] [address] [place] [address] Urinalysis complete panel (U )on 05-19-2023 Bacteria LM.HPF (Urine sed) [#/Area] Moderate Abnormal None Seen [facility] Comment on above: Order Comment: Speci men Type: URINE SPECIMEN [facility] Address: [address] [place] [address] Performed By: #### 2 4356-8 #### [facility] CLIA [id number] [address] [place] [address] [place] Bilirubin Ql (U) Negative Normal Negative [facility] Comment on above: Order Comment: Speci men Type: URINE SPECIMEN [facility] Address: [address] [place] [address] Performed By: #### 2 4356-8 #### [facility] CLIA [id number] [address] [place] [address] [place] Clarity (Unsp spec) Clear Normal Clear [facility] Comment on above: Order Comment: Speci men Type: URINE SPECIMEN [facility] Address: [address] [place] [address] Performed By: #### 2 4356-8 #### [facility] CLIA [id number] [address] [place] [address] STATES [facility] Color (U) Yellow Normal Yellow [facility] Comment on above: Order Comment: Speci men Type: URINE SPECIMEN [facility] Address: [address] [place] [address] Performed By: #### 2 4356-8 #### [facility] CLIA [id number] [address] [place] [address] Epithelial cells LM.HPF (Urine sed) [#/Area] Few Normal [facility] Comment on above: Order Comment: Speci men Type: URINE SPECIMEN [facility] Address: [address] [place] [address] Performed By: #### 2 4356-8 #### [facility] CLIA [id number] [address] [place], [place] [id number] [facility] [place] Glucose Test strip (U) [Mass/Vol] Negative Normal Negative [facility] Comment on above: Order Comment: Speci men Type: URINE SPECIMEN [facility] Address: [address] [place] [address] Performed By: #### 2 4356-8 #### [facility] CLIA [id number] [address] [place] [address] [place] Hemoglobin Ql (U) Negative Normal Negative [facility] Comment on above: Order Comment: Speci men Type: URINE SPECIMEN [facility] Address: [address] [place] [address] Performed By: #### 2 4356-8 #### [facility] CLIA [id number] [address] [place] [address] [place] Ketones Ql (U) Negative Normal Negative [facility] Comment on above: Order Comment: Speci men Type: URINE SPECIMEN [facility] Address: [address] [place] [address] Performed By: #### 2 4356-8 #### [facility] CLIA [id number] [address] [place] [address] STATES [facility] Leukocyte esterase Test strip Ql (U) Negative Normal Negative [facility] Comment on above: Order Comment: Speci men Type: URINE SPECIMEN [facility] Address: [address] [place] [address] Performed By: #### 2 4356-8 #### [facility] CLIA [id number] [address] [place], [place] [address] [place] Nitrite Ql (U) Negative Normal Negative [facility] Comment on above: Order Comment: Speci men Type: URINE SPECIMEN [facility] Address: [address] [place] [address] Performed By: #### 2 4356-8 #### [facility] CLIA [id number] [address] [place] [address] [place] pH (U) 6.0 [pH] Normal 5.0-8.0 [facility] Comment on above: Order Comment: Speci men Type: URINE SPECIMEN [facility] Address: [address] [place] [address] Performed By: #### 2 4356-8 #### [facility] [place] [id number] [address] [place] [address] [place] Protein (U) [Mass/Vol] Negative Normal Negative [facility] Comment on above: Order Comment: Speci men Type: URINE SPECIMEN [facility] Address: [address] [place] [address] Performed By: #### 2 4356-8 #### [facility] IA [id number] [address] [place] [address] [place] RBC LM.HPF (Urine sed) [#/Area] 0-3 /HPF Normal 0-3 /HPF [facility] Comment on above: Order Comment: Speci men Type: URINE SPECIMEN [facility] Address: [address] [place] [address] Performed By: #### 2 4356-8 #### [facility] IA [id number] [address] [place] [address] [place] Specific gravity (U) [Rel density] <=1.005 Low 1.005-1.030 [facility] Comment on above: Order Comment: Speci men Type: URINE SPECIMEN [facility] Address: [address] [place] [address] Performed By: #### 2 4356-8 #### [facility] IA [id number] [address] [place] [address] [place] Urobilinogen Ql (U) 0.2 EU/dL Normal 0.2-1.0 EU/dL [facility] Comment on above: Order Comment: Speci men Type: URINE SPECIMEN [facility] Address: [address] [place] [address] Performed By: #### 2 4356-8 #### [facility] CLIA [id number] [address] [place], [place] [address] [place] WBC LM.HPF (Urine sed) [#/Area] 0-5 /HPF Normal 0-5 /HPF [facility] Comment on above: Order Comment: Speci men Type: URINE SPECIMEN [facility] Facility[facility] Address: [address] [place] [address] Performed By: #### 2 4356-8 #### [facility] CLIA [id number] [address] [place], [place] [address] [place] XR CHEST 2V [...] significant acute radiographic abnormality of the chest. Centrifugal Wax Molder: REUBEN Transcribe Date/Time: May 19 2023 1:53A Dictated by : SELMA RUDD MD This examination was interpreted and the report reviewed and electronically signed by: SELMA RUDD MD on May 19 2023 1:53AM EST [id number] Normal [facility] ALT SerPl-cCncon 03-25-2023 ALT [Catalytic activity/Vol] 23 U/L Normal 7-38 [facility] Comment on above: Order Comment: Speci men Type: BLOOD SPECIMEN [facility] Facility: [facility] Address: [address] [place] [id number] Performed By: #### 1 742-6, 1920-8, 3094-0, CRET1, 1987- #### [facility] CLIA [id number] [address] [place] [address] [place] AST SerPl-cCncon 03-25-2023 AST [Catalytic activity/Vol] 24 U/L Normal 13-35 [facility] Comment on above: Order Comment: Speci men Type: BLOOD SPECIMEN [facility]ing Facility: [facility] Address: [address] [place] [address] Performed By: #### 1 742-6, 1920-03, 309-0, CRET1, 1987-12 #### [facility] CLIA [id number] [address] [place] [address] [place] BUN SerPl-mCncon 03-25-2023 Urea nitrogen [Mass/Vol] 6 mg/dL Low 7-21 [facility] Comment on above: Order Comment: Speci men Type: BLOOD SPECIMEN [facility]ing Facility: [facility] Address: [address] [place] [address] Performed By: #### 1 742-6, 1920-03, 3090, CRET1, 1987-12 #### [facility] CLIA [id number] [address] [place] [address] [place] CBC W Auto Differential pane l (Bld)on 03-25-2023 Basophils (Bld) [#/Vol] 0.04 10*3/uL Normal <0.11 [facility] Comment on above: Order Comment: Speci men Type: BLOOD SPECIMEN [facility]ing Facility: [facility] Address: [address] [place] [address] Performed By: #### 5 7021-8 #### [facility] CLIA [id number] [address] [place] [address] [place] Basophils/100 WBC (Bld) 0.5 % Normal [facility] Comment on above: Order Comment: Speci men Type: BLOOD SPECIMEN [facility]ing Facility: [facility] Address: [address] [place] [address] Performed By: #### 5 7021-8 #### [facility] CLIA [id number] [address] [place] [address] [place] Differential cell count method Nom (Bld) Auto Normal [facility] Comment on above: Order Comment: Speci men Type: BLOOD SPECIMEN [facility]ing Facility: [facility] Address: [address] [place] [address] Performed By: #### 5 7021-8 #### [facility] CLIA [id number] [address] [place] [address] [place] Eosinophils (Bld) [#/Vol] 0.12 10*3/uL Normal <0.46 [facility] Comment on above: Order Comment: Speci men Type: BLOOD SPECIMEN Ordering Facility: [facility] Address: [address] [address] Performed By: #### 5 7021-8 #### [facility] CLIA [id number] [address] [place] [address] [place] Eosinophils/100 WBC (Bld) 1.6 % Normal [facility] Comment on above: Order Comment: Speci men Type: BLOOD SPECIMEN Ordering Facility: [facility] Address: [address] [place] [address] Performed By: #### 5 7021-8 #### [facility] CLIA [id number] [address] [place] [address] [place] Erythrocyte distribution width (RBC) [Ratio] 11.9 % Normal 11.5-15.0 [facility] Comment on above: Order Comment: Speci men Type: BLOOD SPECIMEN Ordering Facility: [facility] Address: [address] [place] [address] Performed By: #### 5 7021-8 #### [facility] CLIA [id number] [address] [place] [address] [place] Hematocrit (Bld) [Volume fraction] 40.9 % Normal 36.0-46.0 [facility] Comment on above: Order Comment: Speci men Type: BLOOD SPECIMEN Ordering Facility: [facility] Address: [address] [place] [address] Performed By: #### 5 7021-8 #### [facility] CLIA [id number] [address] [place] [address] [place] Hemoglobin (Bld) [Mass/Vol] 13.3 g/dL Normal 11.5-15.5 [facility] Comment on above: Order Comment: Speci men Type: BLOOD SPECIMEN Ordering Facility: [facility] Address: [address] [address] Performed By: #### 5 7021-8 #### [facility] CLIA [id number] [address] [place] [address] [place] Immature granulocytes (Bld) [#/Vol] 10*3/uL Normal <0.10 [facility] Comment on above: Order Comment: Speci men Type: BLOOD SPECIMEN Ordering Facility: [facility] Address: [address] [place] [address] Performed By: #### 5 7021-8 #### [facility] CLIA [id number] [address] [place] [address] [place] Immature granulocytes/100 WBC (Bld) 0.3 % Normal [facility] Comment on above: Order Comment: Speci men Type: BLOOD SPECIMEN Ordering Facility: [facility] Address: [address] [place] [address] Performed By: #### 5 7021-8 #### [facility] CLIA [id number] [address] [place] [address] [place] Lymphocytes (Bld) [#/Vol] 2.91 10*3/uL Normal 1.00-4.00 [facility] Comment on above: Order Comment: Speci men Type: BLOOD SPECIMEN Ordering Facility: [facility] Address: [address] [place] [address] Performed By: #### 5 7021-8 #### [facility] CLIA [id number] [address] [place] [address] [place] Lymphocytes/100 WBC (Bld) 37.8 % Normal [facility] Comment on above: Order Comment: Speci men Type: BLOOD SPECIMEN Ordering Facility: [facility] Address: [address] [place] [address] Performed By: #### 5 7021-8 #### [facility] CLIA [id number] [address] [place] [address] [place] MCH (RBC) [Entitic mass] 30.9 pg Normal 26.0-34.0 [facility] Comment on above: Order Comment: Speci men Type: BLOOD SPECIMEN Ordering Facility: [facility] Address: [address] [place] [address] Performed By: #### 5 7021-8 #### [facility] CLIA [id number] [address] [place] [address] [place] MCHC (RBC) [Mass/Vol] 32.5 g/dL Normal 30.5-36.0 [facility] Comment on above: Order Comment: Speci men Type: BLOOD SPECIMEN Ordering Facility: [facility] Address: [address] [place] [address] Performed By: #### 5 7021-8 #### [facility] CLIA [id number] [address] [place] [address] [place] MCV (RBC) [Entitic vol] 94.9 fL Normal 80.0-100.0 [facility] Comment on above: Order Comment: Speci men Type: BLOOD SPECIMEN Ordering Facility: [facility] Address: [address] [place] [address] Performed By: #### 5 7021-8 #### [facility] CLIA [id number] [address] [place] [address] [place] Monocytes (Bld) [#/Vol] 0.71 10*3/uL Normal <0.87 [facility] Comment on above: Order Comment: Speci men Type: BLOOD SPECIMEN Ordering Facility: [facility] Address: [address] [place] [address] Performed By: #### 5 7021-8 #### [facility] CLIA [id number] [address] [place] [address] [place] Monocytes/100 WBC (Bld) 9.2 % Normal [facility] Comment on above: Order Comment: Speci men Type: BLOOD SPECIMEN Ordering Facility: [facility] Address: [address] [address] Performed By: #### 5 7021-8 #### [facility] CLIA [id number] [address] [place] [address] [place] Neutrophils (Bld) [#/Vol] 3.89 10*3/uL Normal 1.45-7.50 [facility] Comment on above: Order Comment: Speci men Type: BLOOD SPECIMEN Ordering Facility: [facility] Address: [address] [address] Performed By: #### 5 7021-8 #### [facility] CLIA [id number] [address] [place] [address] [place] Neutrophils/100 WBC (Bld) 50.6 % Normal [facility] Comment on above: Order Comment: Speci men Type: BLOOD SPECIMEN Ordering Facility: [facility] Address: [address] [place] [address] Performed By: #### 5 7021-8 #### [facility] CLIA [id number] [address] [place] [address] [place] Nucleated RBC (Bld) [#/Vol] 10*3/uL Normal <0.01 [facility] Comment on above: Order Comment: Speci men Type: BLOOD SPECIMEN Ordering Facility: [facility] Address: [address] [place] [address] Performed By: #### 5 7021-8 #### [facility] CLIA [id number] [address] [place] [address] [place] Nucleated RBC/100 WBC (Bld) [Ratio] 0.0 /100 WBC Normal [facility] Comment on above: Order Comment: Speci men Type: BLOOD SPECIMEN Ordering Facility: [facility] Address: [address] [place] [address] Performed By: #### 5 7021-8 #### [facility] CLIA [id number] [address] [place] [address] [place] Platelet mean volume (Bld) [Entitic vol] 9.7 fL Normal 9.0-12.7 [facility] Comment on above: Order Comment: Speci men Type: BLOOD SPECIMEN Ordering Facility: [facility] Address: [address] [place] [address] Performed By: #### 5 7021-8 #### [facility] CLIA [id number] [address] [place] [address] [place] Platelets (Bld) [#/Vol] 439 10*3/uL High 150-400 [facility] Comment on above: Order Comment: Speci men Type: BLOOD SPECIMEN Ordering Facility: [facility] Address: [address] [place] [address] Performed By: #### 5 7021-8 #### [facility] CLIA [id number] [address] [place] [address] [place] RBC (Bld) [#/Vol] 4.31 10*6/uL Normal 3.90-5.20 [facility] Comment on above: Order Comment: Speci men Type: BLOOD SPECIMEN Ordering Facility: [facility] Address: [address] [place] [address] Performed By: #### 5 7021-8 #### [facility] CLIA [id number] [address] [place] [address] [place] WBC (Bld) [#/Vol] 7.69 10*3/uL Normal 3.70-11.00 [facility] Comment on above: Order Comment: Speci men Type: BLOOD SPECIMEN Ordering Facility: [facility] Address: [address] [place] [address] Performed By: #### 5 7021-8 #### [facility] CLIA [id number] [address] [place] [address] [place] CREATININE BLDon 03-25-2023 Creatinine [Mass/Vol] 0.73 mg/dL Normal 0.58-0.96 [facility] Comment on above: Order Comment: Speci men Type: BLOOD SPECIMEN Ordering Facility: [facility] Address: [address] [place] [address] [address] [id number] Performed By: #### 1 742-6, 1920-03, 0, CRE1987-12 #### [facility] CLIA [id number] [address] [place] [address] [place] ESTIMATED GLOMERULAR FILTRATION RATE 114 mL/min/1.73m??? Normal >=60 [facility] Comment on above: Order Comment: Specclaire armstrong Type: BLOOD SPECIMEN Ordering Facility: [facility] Address: [address] [address] Result Comment: Imelda mated Glomerular Filtration Rate [...] #### 1 742-6, 1920-03, 0, CRE1987-12 #### [facility] IA [id number] [address] [place] [address] [place] CRP SerPl-mCncon 03-25-2023 CRP [Mass/Vol] mg/L Normal <0.9 [facility] Comment on above: Order Comment: Krystyna armstrong Type: BLOOD SPECIMEN Ordering Facility: [facility] Address: [address] [address] Performed By: #### 1 742-6, 1920-03, 0, CRE1987-12 #### [facility] CLIA [id number] [address] [place] [address] [place] ESR Westergren method (Bld) [Velocity]on 03-25-2023 ESR (Bld) [Velocity] 6 mm/h Normal 0-20 [facility] Comment on above: Order Comment: Krystyna armstrong Type: BLOOD SPECIMEN Ordering Facility: [facility] Address: [address] [address] Performed By: #### 4 537-7 #### [facility] CLIA [id number] [address] [place] [address] [place] BACTERIAL VAGINOSIS NAATon 0 02-26-2023 Lactobacillus crispatus+gasseri+je nsenii + Gardnerella vaginalis + Atopobium vaginae rRNA JOSSIE+probe Ql (Vag fld) Negative Negative for bacterial vaginosis [facility] BARBARA/TRICHOMONAS NAATon 0 02-26-2023 C. glabrata RNA JOSSIE+probe Ql (Vag fld) Negative Negative for Barbara glabrata [facility] Barbara sp DNA JOSSIE+probe Ql (Vag fld) Negative Negative for Barbara species [facility] T. vaginalis DNA JOSSIE+probe Ql (Unsp spec) Negative Negative for Trichomonas vaginalis by amplification [facility] Reagin and Treponema pallidu m IgG and IgM [Interp]on 07-15-2022 Syphilis Interpretation Cannot exclude recent Treponemal infection if specimen collected within 7-10 days after appearance of suspect lesions or 2-3 weeks after an exposure. Clinical correlation is required. [facility] T. pallidum IgG+IgM IA Ql (S) Non-Reactive Nonreactive [facility] BACTERIAL VAGINOSIS AMPLIFIC ATIONon 07-14-2022 Lactobacillus crispatus+gasseri+je nsenii + Gardnerella vaginalis + Atopobium vaginae rRNA JOSSIE+probe Ql (Vag fld) Negative Negative for bacterial vaginosis [facility] C. trachomatis+N. gonorrhoea e DNA JOSSIE+probe Ql (Unsp spec)on 07-14-2022 C. trachomatis DNA JOSSIE+probe Ql (Unsp spec) Negative Negative for Chlamydia trachomatis by amplificaton [facility] N. gonorrhoeae DNA JOSSIE+probe Ql (Unsp spec) Negative Negative for Neisseria gonorrhoeae by amplification [facility] BARBARA / TRICHOMONAS AMPLIF ICATIONon 07-14-2022 C. glabrata RNA JOSSIE+probe Ql (Vag fld) Negative Negative for Barbara glabrata [facility] Barbara albicans, C. dubliniensis, C. parapsilosis, and C. tropicalis RNA JOSSIE+probe Ql (Vag fld) Positive Abnormal Negative for Barbara species [facility] T. vaginalis DNA JOSSIE+probe Ql (Unsp spec) Negative Negative for Trichomonas vaginalis by amplification [facility] CT ABDOMEN/PELVIS WITH CONTR Seferino 06-28-2022 [...] or hydronephrosis. Incidental small left renal cyst. Retroperitoneal/Vascula ture: The abdominal aorta is normal in course and caliber. The main portal vein and principal branch vessels are patent. No retroperitoneal adenopathy is identified. Gastrointestinal/[place]ent [place]: The stomach and duodenal C-loop are unremarkable. [...] in the abdomen/pelvis. Appendix is normal. Normal [facility] CT Abdomen and Pelvis W cont rast Meredith 06-28-2022 IMPRESSION: No acute localizing process in the abdomen/pelvis. Appendix is normal. OLOGY EXAM: CT ABDOMEN/PEL VIS WITH CONTRAST, 06/28/2022 17:36 PM COMPARISON: No [...] or hydronephrosis. Incidental small left renal cyst. Retroperitoneal/Vascula ture: The abdominal aorta is normal in course and caliber. The main portal vein and principal branch vessels are patent. No retroperitoneal adenopathy is identified. Gastrointestinal/[place]ent [place]: The stomach and duodenal C-loop are unremarkable. [...] or hydronephrosis. Incidental small left renal cyst. Retroperitoneal/Vascula ture: The abdominal aorta is normal in course and caliber. The main portal vein and principal branch vessels are patent. No retroperitoneal adenopathy is identified. Gastrointestinal/Mesent [place]: The stomach and duodenal C-loop are unremarkable. [...] process in the abdomen/pelvis. Appendix is normal. [facility] Radiology Study observation (narrative) [facility] CT Abdomen and Pelvis W cont rast IVOrdered By: Isis Franz on 06-28-2022 [facility] Work Phone: HCG ( test) Ql (U)o n 06-28-2022 HCG.beta subunit [Moles/Vol] Negative [facility] POCT CBCOrdered By: Maryan quiles on 06-28-2022 HEMATOCRIT (HCT), MANUAL ENTER 43.2 % 32.5 - 49.4 % [facility] Hemoglobin (HGB), MANUAL ENTER 14.2 g/dL 10.9 - 16.7 g/dL [facility] Interpretation and review of laboratory results Abnormal [facility] LYMPHOCYTES %, MANUAL ENTER 34.3 % 14.7 - 45.9 % [facility] MEAN CELL VOLUME, MANUAL ENTER 94.3 fL 82.5 - 98.0 fL [facility] NEUTROPHILS %, MANUAL ENTER 59.5 % 46.4 - 74.9 % [facility] OTHERWBC %, MANUAL ENTER 6.2 % 3.2 - 16.9 % [facility] PLATELETS, MANUAL ENTER 477 10^3/uL Abnormal 148 - 382 10^3/uL [facility] RBC, MANUAL ENTER 4.58 10^6/uL 3.71 - 5.5 2 10^6/uL [facility] WBC, MANUAL ENTER 8.2 10^3/uL 3.9 - 10.4 10^3/uL [facility] COMPREHENSIVE METABOLIC PANELon 06-28-2022 ALBUMIN, MANUAL ENTER 3.9 g/dL 3.3 - 5.5 g/dL [facility] ALKALINE PHOSPHATASE, MANUAL ENTER 76 U/L 42 - 141 U/L [facility] ALT, MANUAL ENTER 36 U/L 10 - 47 U/L [facility] AST, MANUAL ENTER 35 U/L 11 - 38 U/L [facility] Bilirubin, Total, MANUAL ENTER 0.4 mg/dL 0.2 - 1.6 mg/dL [facility] Blood Urea Nitrogen (BUN), MANUAL ENTER 11 mg/dL 7 - 22 mg/dL [facility] CALCIUM (CA), MANUAL ENTER 9.3 mg/dL 8.0 - 10.3 mg/dL [facility] Carbon Diox(CO2), MANUAL ENTER 20 mmol/L 18 - 33 mmol/L [facility] Chloride (CL), MANUAL ENTER 111 mmol/L Abnormal 98 - 108 mmol/L [facility] CREATININE, SERUM, MANUAL ENTER 0.9 mg/dL 0.6 - 1.2 mg/dL [facility] GLUCOSE, MANUAL ENTER 101 mg/dL 73 - 118 mg/dL [facility] Interpretation and review of laboratory results Abnormal [facility] POTASSIUM (K+), MANUAL ENTER 4.1 mmol/L 3.6 - 5.1 mmol/L [facility] Protein, Total, Manual Enter 7.3 g/dL 6.4 - 8.1 g/dL [facility] SODIUM (NA), MANUAL ENTER 142 mmol/L 128 - 145 mmol/L [facility] POCT URINE DIPSTICK AUTOMATE DOrdered By: Francesca Johnson on 06-28-2022 Amorphous sediment LM Ql (Urine sed) [facility] Appearance (U) clear [facility] Bacteria LM Ql (Urine sed) [facility] Bilirubin Ql (U) Negative [facility] Casts LM.LPF (Urine sed) [#/Area] [facility] Color (U) yellow [facility] Crystals LM Nom (Urine sed) [facility] Epithelial cells.squamous LM.HPF (Urine sed) [#/Area] [facility] Flow cytometry specialist review Amrik (Unsp spec) [Interp] [facility] Glucose Auto test strip (U) [Mass/Vol] Negative mg/dL [facility] Ketones [Mass/Vol] Negative mg/dL [facility] Leukocyte esterase Qn (U) [facility] Leukocyte esterase Test strip Ql (U) Negative [facility] Microscopic observation Gram stain Nom (Bronch spec) [facility] Nitrite Ql (U) Negative [facility] pH (U) 5.5 [pH] 5 - 7 [facility] Protein Ql (U) Negative mg/dL [facility] RBC LM.HPF (Urine sed) [#/Area] [facility] RBC Ql (U) Negative [facility] Specific gravity (U) [Rel density] 1.001 - 1.035 [facility] Transitional cells LM Ql (Urine sed) [facility] Urobilinogen Qn (U) 0.2 [facility] WBC LM.HPF (Urine sed) [#/Area] [facility] XR ANKLE RIGHT 3+ VIEWS [...] arthritic changes at the talonavicular articulation noted. Lighting by [employer] Workstation ID: [id number] Dictated by: BOB TONY on Jerome May 02, 2022 2:33:16 PM EDT Transcribed by: ELIAS HARPER on Jerome May 02, 2022 2:34:42 PM EDT Finalized by: BOB TONY on Jerome May 02, 2022 4:39:22 PM EDT [facility] Comment on above: Order Comment: [...] arthritic changes at the talonavicular articulation noted. [employer]elligentM[employer] Workstation ID: [id number] [facility] EXAMINATION: XR ANKLE RIGHT 3+ VIEWS [...] talonavicular articulation noted. SKS/jcw Workstation ID: [id number] [facility] Radiology Study observation (narrative) [facility] XR Ankle Right 3+ Views (Sta ndard)Ordered By: Bob Tony on 05-02-[address] [facility] Work Phone: US FEMALE PELVIS TRANSVAGon 01-20-2022 [facility] HCG QUAL UR B/Oon 12-04-2021 status Negative neg - pos Jimmy barros [facility] Quality Check Yes [facility] ALLIED HEALTHon 11-02-2021 ALLIED HEALTH HNO ID: [id number] Author: RT Beatrice(R) Service: ? Author Type: [...] Mata RT November 02, 2021 2:12 PM [facility] MRI ANKLE WO IVCON LTon 03-2 MRI ANKLE WO IVCON LT * * *Final Report* * * DATE OF EXAM: Nov 02 2021 2:42PM [facility] 0163 - MRI ANKLE WO IVCON LT / PROCEDURE REASON: Acute left ankle pain * * * * Physician Interpretation * * * * EXAMINATION: MRI LEFT ANKLE Clinical history: Acute left ankle pain Technique: [...] the lateral collateral ligament complex are intact Centrifugal Wax Molder: [facility] Transcribe Date/Time: Nov 02 2021 5:07P Dictated by : GIOVANY MENJIVAR MD This examination was interpreted and the report reviewed and electronically signed by: GIOVANY MENJIVAR MD on Nov 02 2021 5:09PM EST [id number] Normal [facility] XR Ankle - left AP and Later al and obliqueon 09-16-2021 IMPRESSION: No radiographic evidence of acute osseous injury. Centrifugal Wax Molder: [facility] Transcribe Date/Time: Sep 16 2021 11:38A [...] Joint spaces preserved. DIVISION OF RADIOLOGY Provider, [facility] - 09/16/2021 * * *Final Report* * [...] No radiographic evidence of acute osseous injury. Centrifugal Wax Molder: [facility] Transcribe Date/Time: Sep 16 2021 11:38A Dictated by : JAMES THURMAN MD This examination was interpreted and the report reviewed and electronically signed by: JAMES THURMAN MD on Sep 16 2021 11:39AM EST [facility] Radiology Study observation (narrative) [facility] XR Ankle - left AP and Later al and obliqueOrdered By: Ccf Provider on 09-16-2021 [facility] No Panel Informationon 08-05 IMPRESSION: LEFT ANKLE: Within normal limits. No fracture or other bone or joint abnormalities. LEFT FOOT: Within normal limits. No fracture or other bone or joint abnormalities. Centrifugal Wax Molder: [facility] Transcribe Date/Time: Aug 05 2021 4:29P Dictated by : KATI ROMAN MD This examination was interpreted and the report reviewed and electronically signed by: KATI ROMAN MD on Aug 05 2021 4:34PM [facility] DIVISION OF RADIOLOGY Radiology Study observation (narrative) [facility] No Panel InformationOrdered By: Ccf Provider on 08-05-2021 [facility] XR Ankle - left AP and [...] radiopaque foreign bodies. DIVISION OF RADIOLOGY Provider, [facility] - 08/05/2021 * * *Final Report* [...] fracture or other bone or joint abnormalities. Centrifugal Wax Molder: [facility] Transcribe Date/Time: Aug 05 2021 4:29P Dictated by : KAIT ROMAN MD This examination was interpreted and the report reviewed and electronically signed by: KATI ROMAN MD on Aug 05 2021 4:34PM [facility] XR Foot - left AP [...] radiopaque foreign bodies. DIVISION OF RADIOLOGY Provider, [facility] - 08/05/2021 * * *Final Report* [...] fracture or other bone or joint abnormalities. Centrifugal Wax Molder: [facility] Transcribe Date/Time: Aug 05 2021 4:29P Dictated by : KATI ROMAN MD This examination was interpreted and the report reviewed and electronically signed by: KATI ROMAN MD on Aug 05 2021 4:34PM EST [facility] No Panel Informationon 01-07 IMPRESSION: No acute osseous abnormality of the LEFT wrist or LEFT shoulder is identified. Centrifugal Wax Molder: [facility] Transcribe Date/Time: Jan 07 2021 8:17A Dictated by : MICHELINE MORIN MD This examination was interpreted and the report reviewed and electronically signed by: MICHELINE MORIN MD on Jan 07 2021 8:20AM EST DIVISION OF RADIOLOGY Radiology Study observation (narrative) [facility] No Panel InformationOrdered By: Ccf Provider on 01-07-2021 [facility] XR Shoulder - left 3 Viewson [...] area Acute pain of left shoulder (accession [id number]), Left wrist pain (accession [id number]) Technique: XR WRIST 4V PA/LAT/OBL/SCAPH LT, XR SHLDR >/=3V AP/JENNIE AP/OTHR LT -- LEFT wrist and shoulder with 4 (accession [id number]), 3 (accession [id number]) views on 4 (accession [id number]), 3 (accession [id number]) images Comparison: 10/27/2017 RESULT: LEFT wrist: No [...] lung are clear. DIVISION OF RADIOLOGY Provider, [facility] - 01/07/2021 * * *Final Report* [...] area Acute pain of left shoulder (accession [id number]), Left wrist pain (accession [id number]) Technique: XR WRIST 4V PA/LAT/OBL/SCAPH LT, XR SHLDR >/=3V AP/JENNIE AP/OTHR LT -- LEFT wrist and shoulder with 4 (accession [id number]), 3 (accession [id number]) views on 4 (accession [id number]), 3 (accession [id number]) images Comparison: 10/27/2017 RESULT: LEFT wrist: No [...] LEFT wrist or LEFT shoulder is identified. Centrifugal Wax Molder: [facility] Transcribe Date/Time: Jan 07 2021 8:17A Dictated by : MICHELINE MORIN MD This examination was interpreted and the report reviewed and electronically signed by: MICHELINE MORIN MD on Jan 07 2021 8:20AM [facility] XR Wrist - left 4 [...] area Acute pain of left shoulder (accession [id number]), Left wrist pain (accession [id number]) Technique: XR WRIST 4V PA/LAT/OBL/SCAPH LT, XR SHLDR >/=3V AP/JENNIE AP/OTHR LT -- LEFT wrist and shoulder with 4 (accession [id number]), 3 (accession [id number]) views on 4 (accession [id number]), 3 (accession [id number]) images Comparison: 10/27/2017 RESULT: LEFT wrist: No [...] lung are clear. DIVISION OF RADIOLOGY Provider, [facility] - 01/07/2021 * * *Final Report* [...] area Acute pain of left shoulder (accession [id number]), Left wrist pain (accession [id number]) Technique: XR WRIST 4V PA/LAT/OBL/SCAPH LT, XR SHLDR >/=3V AP/JENNIE AP/OTHR LT -- LEFT wrist and shoulder with 4 (accession [id number]), 3 (accession [id number]) views on 4 (accession [id number]), 3 (accession [id number]) images Comparison: 10/27/2017 RESULT: LEFT wrist: No [...] LEFT wrist or LEFT shoulder is identified. Centrifugal Wax Molder: [facility] Transcribe Date/Time: Jan 07 2021 8:17A Dictated by : MICHELINE MORIN MD This examination was interpreted and the report reviewed and electronically signed by: MICHELINE MORIN MD on Jan 07 2021 8:20AM [facility] CT Sinuses WO contraston IMPRESSION: Clear paranasal sinuses without radiographic sequelae of chronic sinusitis. Centrifugal Wax Molder: [facility] Transcribe Date/Time: Jul 17 2020 10:37A Dictated by : KENNETH ROSAS MD This examination was interpreted and the report reviewed and electronically signed by: LIZABETH PARKER MD on Jul 17 2020 11:03AM [facility] DIVISION OF RADIOLOGY * * *Final Report* * * DATE OF EXAM: Jul 17 2020 10:29AM [facility] 0488 - CT SINUS WO IVCON / [...] limits within the limitations of the study. Tire Wrapper (topogram) images: Unremarkable. DIVISION OF RADIOLOGY Provider, Chichi [facility] [place] - 07/17/2020 * * *Final Report* * * DATE OF EXAM: Jul 17 2020 10:29AM [facility] 0488 - CT SINUS WO IVCON / [...] limits within the limitations of the study. Tire Wrapper (topogram) images: Unremarkable. IMPRESSION IMPRESSION: Clear paranasal sinuses without radiographic sequelae of chronic sinusitis. Centrifugal Wax Molder: [facility] Transcribe Date/Time: Jul 17 2020 10:37A Dictated by : KENNETH ROSAS MD This examination was interpreted and the report reviewed and electronically signed by: LIZABETH PARKER MD on Jul 17 2020 11:03AM [facility] Radiology Study observation (narrative) [facility] CT Sinuses WO contrastOrdere d By: [facility] Provider on 07-17-2020 [facility] XR Chest PA and Lateralon 10 -22-2020 IMPRESSION: No acute radiographic abnormality. Centrifugal Wax Molder: [facility] Transcribe Date/Time: Jun 05 2020 12:37P [...] osseous abnormalities appreciated. [facility] * * *Final [...] appreciated. IMPRESSION IMPRESSION: No acute radiographic abnormality. Centrifugal Wax Molder: [facility] Transcribe Date/Time: Jun 05 2020 12:37P Dictated by : MICHELINE MORIN MD This examination was interpreted and the report reviewed and electronically signed by: MICHELINE MORIN MD on Jun 05 2020 12:38PM EST [facility] Radiology Study observation (narrative) [facility] XR Chest PA and LateralOrder ed By: [facility] Provider on 06-05-2020 [facility] Vital Signs Date Time Vital Sign Value Performing Clinician Facility 04-26-2025 15:30-0400 Body mass index (BMI) [Ratio] 51.07 kg/m2 Ayaan Plotts EDUCATION ANALYST.CNM Work Phone: [facility] 04-26-2025 15:30-0400 Body weight 121.11 kg Ayaan Plotts EDUCATION ANALYST.CNM Work Phone: [facility] 04-26-2025 15:30-0400 Diastolic blood pressure 70 mm[Hg] Ayaan Plotts EDUCATION ANALYST.CNM Work Phone: [facility] 04-26-2025 15:30-0400 Systolic blood pressure 130 mm[Hg] Ayaan Plotts EDUCATION ANALYST.CNM Work Phone: [facility] 03-28-2025 11:13-0400 Body mass index (BMI) [Ratio] 50.88 kg/m2 Fredy Elmore MD Work Phone: [facility] 03-28-2025 11:13-0400 Body weight 120.66 kg Fredy Elmore MD Work Phone: [facility] 03-28-2025 11:13-0400 Diastolic blood pressure 102 mm[Hg] Fredy Elmore MD Work Phone: [facility] 03-28-2025 11:13-0400 Systolic blood pressure 148 mm[Hg] Fredy Elmore MD Work Phone: [facility] 03-11-2025 15:59-0400 Diastolic blood pressure 88 mm[Hg] Jimy Swank EDUCATION ANALYST.SENIOR MORTGAGE UNDERWRITER Work Phone: [facility] 03-11-2025 15:59-0400 Heart rate 100 /min Jimy Swank EDUCATION ANALYST.SENIOR MORTGAGE UNDERWRITER Work Phone: [facility] 03-11-2025 15:59-0400 Systolic blood pressure 128 mm[Hg] Jimy Swank EDUCATION ANALYST.SENIOR MORTGAGE UNDERWRITER Work Phone: [facility] 03-11-2025 15:21-0400 Body mass index (BMI) [Ratio] 50.94 kg/m2 Jimy Swank EDUCATION ANALYST.SENIOR MORTGAGE UNDERWRITER Work Phone: [facility] 03-11-2025 15:21-0400 Body temperature 98.29 [degF] Jimy Arndtank EDUCATION ANALYST.SENIOR MORTGAGE UNDERWRITER Work Phone: [facility] 03-11-2025 15:21-0400 Body weight 120.8 kg Jimy Swank EDUCATION ANALYST.SENIOR MORTGAGE UNDERWRITER Work Phone: [facility] 03-11-2025 15:21-0400 Respiratory rate 21 /min Jimy Arndtank EDUCATION ANALYST.SENIOR MORTGAGE UNDERWRITER Work Phone: [facility] 03-11-2025 15:21-0400 SaO2% (BldA) [Mass fraction] 97 % Jimy Arndtank EDUCATION ANALYST.SENIOR MORTGAGE UNDERWRITER Work Phone: [facility] 02-20-2025 15:05-0400 Body height 154 cm Michelle Rojas APRN.SENIOR MORTGAGE UNDERWRITER Work Phone: [facility] 02-20-2025 15:05-0400 Body mass index (BMI) [Ratio] 51.26 kg/m2 Michelle Rojas EDUCATION ANALYST.SENIOR MORTGAGE UNDERWRITER Work Phone: [facility] 02-20-2025 15:05-0400 Body weight 121.56 kg Michelle Rojas EDUCATION ANALYST.SENIOR MORTGAGE UNDERWRITER Work Phone: [facility] 01-09-2025 10:12-0400 Body mass index (BMI) [Ratio] 53.6 kg/m2 Petra Cifuentesr EDUCATION ANALYST.SENIOR MORTGAGE UNDERWRITER Work Phone: [facility] 01-09-2025 10:12-0400 Body weight 124.5 kg Petra Karuna EDUCATION ANALYST.SENIOR MORTGAGE UNDERWRITER Work Phone: [facility] 01-09-2025 10:12-0400 Diastolic blood pressure 103 mm[Hg] Petra Karuna EDUCATION ANALYST.SENIOR MORTGAGE UNDERWRITER Work Phone: [facility] 01-09-2025 10:12-0400 Heart rate 130 /min Petra Cifuentesr EDUCATION ANALYST.SENIOR MORTGAGE UNDERWRITER Work Phone: [facility] 01-09-2025 10:12-0400 SaO2% (BldA) [Mass fraction] 99 % Petra Lugo APRN.SENIOR MORTGAGE UNDERWRITER Work Phone: [facility] 01-09-2025 10:12-0400 Systolic blood pressure 168 mm[Hg] Petra Lugo APRN.SENIOR MORTGAGE UNDERWRITER Work Phone: [facility] 12-21-2024 10:48-0400 Body mass index (BMI) [Ratio] 54.21 kg/m2 Krislyn Aberegg PA Work Phone: [facility] 12-21-2024 10:48-0400 Body temperature 97.5 [degF] Krislyn Aberegg PA Work Phone: [facility] 12-21-2024 10:48-0400 Body weight 125.9 kg Krislyn Aberegg PA Work Phone: [facility] 12-21-2024 10:48-0400 Diastolic blood pressure 94 mm[Hg] Krislyn Aberegg PA Work Phone: [facility] 12-21-2024 10:48-0400 Heart rate 120 /min Krislyn Aberegg PA Work Phone: [facility] 12-21-2024 10:48-0400 Respiratory rate 20 /min Krislyn Aberegg PA Work Phone: [facility] 12-21-2024 10:48-0400 SaO2% (BldA) [Mass fraction] 97 % Krislyn Aberegg PA Work Phone: [facility] 12-21-2024 10:48-0400 Systolic blood pressure 148 mm[Hg] Krislyn Aberegg PA Work Phone: [facility] 11-22-2024 07:13-0400 Body mass index (BMI) [Ratio] 53.73 kg/m2 Krislyn Aberegg PA Work Phone: [facility] 11-22-2024 07:13-0400 Body temperature 97 [degF] Krislyn Aberegg PA Work Phone: [facility] 11-22-2024 07:13-0400 Body weight 124.8 kg Krislyn Aberegg PA Work Phone: [facility] 11-22-2024 07:13-0400 Diastolic blood pressure 78 mm[Hg] Krislyn Aberegg PA Work Phone: [facility] 11-22-2024 07:13-0400 Heart rate 112 /min Krislyn Aberegg PA Work Phone: [facility] 11-22-2024 07:13-0400 Respiratory rate 18 /min Krislyn Aberegg PA Work Phone: [facility] 11-22-2024 07:13-0400 SaO2% (BldA) [Mass fraction] 98 % Krislyn Aberegg PA Work Phone: [facility] 11-22-2024 07:13-0400 Systolic blood pressure 116 mm[Hg] Krislyn Aberegg PA Work Phone: [facility] 11-19-2024 19:03-0400 Body mass index (BMI) [Ratio] 54.08 kg/m2 Rosaura Santacruz EDUCATION ANALYST.SENIOR MORTGAGE UNDERWRITER Work Phone: [facility] 11-19-2024 19:03-0400 Body temperature 98.29 [degF] Rosaura Santacruz EDUCATION ANALYST.SENIOR MORTGAGE UNDERWRITER Work Phone: [facility] 11-19-2024 19:03-0400 Body weight 125.6 kg Rosaura Santacruz EDUCATION ANALYST.SENIOR MORTGAGE UNDERWRITER Work Phone: [facility] 11-19-2024 19:03-0400 Diastolic blood pressure 76 mm[Hg] Rosaura Santacruz EDUCATION ANALYST.SENIOR MORTGAGE UNDERWRITER Work Phone: [facility] 11-19-2024 19:03-0400 Heart rate 105 /min Rosaura Santacruz EDUCATION ANALYST.SENIOR MORTGAGE UNDERWRITER Work Phone: [facility] 11-19-2024 19:03-0400 Respiratory rate 18 /min Rosaura Santacruz EDUCATION ANALYST.SENIOR MORTGAGE UNDERWRITER Work Phone: [facility] 11-19-2024 19:03-0400 SaO2% (BldA) [Mass fraction] 98 % Rosaura Santacruz EDUCATION ANALYST.SENIOR MORTGAGE UNDERWRITER Work Phone: [facility] 11-19-2024 19:03-0400 Systolic blood pressure 112 mm[Hg] Rosaura Santacruz EDUCATION ANALYST.SENIOR MORTGAGE UNDERWRITER Work Phone: [facility] 10-31-2024 16:30-0400 Body mass index (BMI) [Ratio] 53.82 kg/m2 Nicholas Dorantes EDUCATION ANALYST.SENIOR MORTGAGE UNDERWRITER Work Phone: [facility] 10-31-2024 16:30-0400 Body temperature 99.3 [degF] [facility]UCATION ANALYST.SENIOR MORTGAGE UNDERWRITER Work Phone: [facility] 10-31-2024 16:30-0400 Body weight 125 kg [facility] EDUCATION ANALYST.SENIOR MORTGAGE UNDERWRITER Work Phone: [facility] 10-31-2024 16:30-0400 Diastolic blood pressure 80 mm[Hg] Nicholas Novoaceferino EDUCATION ANALYST.SENIOR MORTGAGE UNDERWRITER Work Phone: [facility] 10-31-2024 16:30-0400 Heart rate 99 /min [facility]uardo [facility] EDUCATION ANALYST.SENIOR MORTGAGE UNDERWRITER Work Phone: [facility] 10-31-2024 16:30-0400 Respiratory rate 18 /min [facility] EDUCATION ANALYST.SENIOR MORTGAGE UNDERWRITER Work Phone: [facility] 10-31-2024 16:30-0400 SaO2% (BldA) [Mass fraction] 98 % [facility] EDUCATION ANALYST.SENIOR MORTGAGE UNDERWRITER Work Phone: [facility] 10-31-2024 16:30-0400 Systolic blood pressure 122 mm[Hg] [facility] EDUCATION ANALYST.SENIOR MORTGAGE UNDERWRITER Work Phone: [facility] 10-24-2024 11:36-0400 Body mass index (BMI) [Ratio] 53.73 kg/m2 Steven Harris EDUCATION ANALYST.SENIOR MORTGAGE UNDERWRITER Work Phone: [facility] 10-24-2024 11:36-0400 Body temperature 97.9 [degF] Steven Harris EDUCATION ANALYST.SENIOR MORTGAGE UNDERWRITER Work Phone: [facility] 10-24-2024 11:36-0400 Body weight 124.8 kg Steven Harris EDUCATION ANALYST.SENIOR MORTGAGE UNDERWRITER Work Phone: [facility] 10-24-2024 11:36-0400 Diastolic blood pressure 80 mm[Hg] Steven Harris EDUCATION ANALYST.SENIOR MORTGAGE UNDERWRITER Work Phone: [facility] 10-24-2024 11:36-0400 Heart rate 99 /min Steven Harris EDUCATION ANALYST.SENIOR MORTGAGE UNDERWRITER Work Phone: [facility] 10-24-2024 11:36-0400 Respiratory rate 16 /min Steven Harris EDUCATION ANALYST.SENIOR MORTGAGE UNDERWRITER Work Phone: [facility] 10-24-2024 11:36-0400 SaO2% (BldA) [Mass fraction] 99 % Steven Harris EDUCATION ANALYST.SENIOR MORTGAGE UNDERWRITER Work Phone: [facility] 10-24-2024 11:36-0400 Systolic blood pressure 130 mm[Hg] Steven Harris EDUCATION ANALYST.SENIOR MORTGAGE UNDERWRITER Work Phone: [facility] 10-16-2024 18:59-0500 Body height 152.4 cm Faustina Carcamo MD Work Phone: [facility] 10-16-2024 18:59-0500 Body mass index (BMI) [Ratio] 53.09 kg/m2 Faustina Carcamo MD Work Phone: [facility] 10-16-2024 18:59-0500 Body temperature 97.9 [degF] Faustina Carcamo MD Work Phone: [facility] 10-16-2024 18:59-0500 Body weight 123.3 kg Faustina Carcamo MD Work Phone: [facility] 10-16-2024 18:59-0500 Diastolic blood pressure 70 mm[Hg] Faustina Carcamo MD Work Phone: [facility] 10-16-2024 18:59-0500 Heart rate 102 /min Faustina Carcamo MD Work Phone: [facility] 10-16-2024 18:59-0500 Respiratory rate 14 /min Faustina Carcamo MD Work Phone: [facility] 10-16-2024 18:59-0500 SaO2% (BldA) [Mass fraction] 98 % Faustina Carcamo MD Work Phone: [facility] 10-16-2024 18:59-0500 Systolic blood pressure 136 mm[Hg] Faustina Carcamo MD Work Phone: [facility] 09-25-2024 08:58-0500 Body mass index (BMI) [Ratio] 53.39 kg/m2 Rosaura Santacruz EDUCATION ANALYST.SENIOR MORTGAGE UNDERWRITER Work Phone: [facility] 09-25-2024 08:58-0500 Body temperature 98.49 [degF] Rosaura Santacruz EDUCATION ANALYST.SENIOR MORTGAGE UNDERWRITER Work Phone: [facility] 09-25-2024 08:58-0500 Body weight 124 kg Rosaura Santacruz EDUCATION ANALYST.SENIOR MORTGAGE UNDERWRITER Work Phone: [facility] 09-25-2024 08:58-0500 Diastolic blood pressure 100 mm[Hg] Rosaura Santacruz EDUCATION ANALYST.SENIOR MORTGAGE UNDERWRITER Work Phone: [facility] Comment on above: checked x 3 , states she has POTS 09-25-2024 08:58-0500 Heart rate 125 /min Rosaura Santacruz EDUCATION ANALYST.SENIOR MORTGAGE UNDERWRITER Work Phone: [facility] 09-25-2024 08:58-0500 Respiratory rate 20 /min Rosaura Santacruz EDUCATION ANALYST.SENIOR MORTGAGE UNDERWRITER Work Phone: [facility] 09-25-2024 08:58-0500 SaO2% (BldA) [Mass fraction] 96 % Rosaura Santacruz EDUCATION ANALYST.SENIOR MORTGAGE UNDERWRITER Work Phone: [facility] 09-25-2024 08:58-0500 Systolic blood pressure 137 mm[Hg] Rosaura Santacruz EDUCATION ANALYST.SENIOR MORTGAGE UNDERWRITER Work Phone: [facility] Comment on above: checked x 3 , states she has POTS 07-11-2024 11:08-0500 Body mass index (BMI) [Ratio] 55.46 kg/m2 Devante Clutter PA-C Work Phone: [facility] 07-11-2024 11:08-0500 Body temperature 98.71 [degF] Devante Clutter PA-C Work Phone: [facility] 07-11-2024 11:08-0500 Body weight 128.8 kg Devante Clutter PA-C Work Phone: [facility] 07-11-2024 11:08-0500 Diastolic blood pressure 80 mm[Hg] Devante Clutter PA-C Work Phone: [facility] 07-11-2024 11:08-0500 Heart rate 91 /min Devante Clutter PA-C Work Phone: [facility] 07-11-2024 11:08-0500 Respiratory rate 16 /min Devante Clutter PA-C Work Phone: [facility] 07-11-2024 11:08-0500 SaO2% (BldA) [Mass fraction] 98 % Devante Clutter PA-C Work Phone: [facility] 07-11-2024 11:08-0500 Systolic blood pressure 132 mm[Hg] Devante Clutter PA-C Work Phone: [facility] 07-04-2024 15:23-0500 Heart rate 88 /min Moon Beavers EDUCATION ANALYST.SENIOR MORTGAGE UNDERWRITER Work Phone: [facility] 07-04-2024 15:00-0500 Body height 152.4 cm Moon Ruthann EDUCATION ANALYST.SENIOR MORTGAGE UNDERWRITER Work Phone: [facility] 07-04-2024 15:00-0500 Body mass index (BMI) [Ratio] 54.16 kg/m2 Moon Rtuhann EDUCATION ANALYST.SENIOR MORTGAGE UNDERWRITER Work Phone: [facility] 07-04-2024 15:00-0500 Body weight 125.8 kg Moon BassRuthann EDUCATION ANALYST.SENIOR MORTGAGE UNDERWRITER Work Phone: [facility] 07-04-2024 15:00-0500 Diastolic blood pressure 80 mm[Hg] Moon Ruthann EDUCATION ANALYST.SENIOR MORTGAGE UNDERWRITER Work Phone: [facility] 07-04-2024 15:00-0500 Respiratory rate 14 /min Moon BassRuthann EDUCATION ANALYST.SENIOR MORTGAGE UNDERWRITER Work Phone: [facility] 07-04-2024 15:00-0500 SaO2% (BldA) [Mass fraction] 99 % Moon BassRuthann EDUCATION ANALYST.SENIOR MORTGAGE UNDERWRITER Work Phone: [facility] 07-04-2024 15:00-0500 Systolic blood pressure 136 mm[Hg] Moon Ruthann EDUCATION ANALYST.SENIOR MORTGAGE UNDERWRITER Work Phone: [facility] 05-14-2024 09:35-0400 Body height 153.[address] [facility] 05-14-2024 09:35-0400 Body mass index (BMI) [Ratio] 51.67 kg/m2 Pauly Cleveland RD [facility] 05-14-2024 09:35-0400 Body weight 122.[address] [facility] 04-03-2024 06:59-0400 Diastolic blood pressure 83 mm[Hg] Genaro Neri EDUCATION ANALYST.VPK TEACHER Work Phone: [facility] 04-03-2024 06:59-0400 Heart rate 102 /min Genaro Neri EDUCATION ANALYST.VPK TEACHER Work Phone: [facility] 04-03-2024 06:59-0400 Systolic blood pressure 138 mm[Hg] Genaro Neri EDUCATION ANALYST.VPK TEACHER Work Phone: [facility] 04-03-2024 06:58-0400 Body mass index (BMI) [Ratio] 51.71 kg/m2 Genaro Neri EDUCATION ANALYST.VPK TEACHER Work Phone: [facility] 04-03-2024 06:58-0400 Body weight 122.1 kg Genaro Neri EDUCATION ANALYST.VPK TEACHER Work Phone: [facility] 04-03-2024 06:58-0400 Respiratory rate 16 /min Genaro Neri EDUCATION ANALYST.VPK TEACHER Work Phone: [facility] 03-29-2024 09:58-0400 Body mass index (BMI) [Ratio] 51.63 kg/m2 Nurse Wstr Work Phone: [facility] 03-29-2024 09:58-0400 Body weight 121.93 kg Nurse Wstr Work Phone: [facility] 03-29-2024 09:58-0400 Diastolic blood pressure 74 mm[Hg] Nurse Wstr Work Phone: [facility] 03-29-2024 09:58-0400 Systolic blood pressure 122 mm[Hg] Nurse Wstr Work Phone: [facility] 03-15-2024 09:27-0400 Body mass index (BMI) [Ratio] 51.29 kg/m2 Karen Jones MD Work Phone: [facility] 03-15-2024 09:27-0400 Body weight 121.11 kg Karen Jones MD Work Phone: [facility] 03-15-2024 09:27-0400 Diastolic blood pressure 96 mm[Hg] Karen Jones MD Work Phone: [facility] 03-15-2024 09:27-0400 Systolic blood pressure 166 mm[Hg] Karen Jones MD Work Phone: [facility] 02-27-2024 15:23-0400 Body height 153.7 cm Ayaan Rowley EDUCATION ANALYST.CNM Work Phone: [facility] 02-27-2024 15:23-0400 Body mass index (BMI) [Ratio] 51.09 kg/m2 Ayaan Rowley EDUCATION ANALYST.CNM Work Phone: [facility] 02-27-2024 15:23-0400 Body weight 120.66 kg Ayaan Rowley EDUCATION ANALYST.CNM Work Phone: [facility] 02-27-2024 15:23-0400 Diastolic blood pressure 102 mm[Hg] Ayaan Rowley EDUCATION ANALYST.CNM Work Phone: [facility] 02-27-2024 15:23-0400 Systolic blood pressure 156 mm[Hg] Ayaan Rowley EDUCATION ANALYST.CNM Work Phone: [facility] 01-17-2024 11:31-0400 Body mass index (BMI) [Ratio] 50.83 kg/m2 Karen Jones MD Work Phone: [facility] 01-17-2024 11:31-0400 Body weight 122.02 kg Karen Jones MD Work Phone: [facility] 01-17-2024 11:31-0400 Diastolic blood pressure 88 mm[Hg] Karen Jones MD Work Phone: [facility] 01-17-2024 11:31-0400 Systolic blood pressure 138 mm[Hg] Karen Jones MD Work Phone: [facility] 01-02-2024 16:42-0400 Body mass index (BMI) [Ratio] 50.64 kg/m2 Faustina Carcamo MD Work Phone: [facility] 01-02-2024 16:42-0400 Body temperature 98.6 [degF] Faustina Carcamo MD Work Phone: [facility] 01-02-2024 16:42-0400 Body weight 121.56 kg Faustina Carcamo MD Work Phone: [facility] 01-02-2024 16:42-0400 Diastolic blood pressure 78 mm[Hg] Faustina Carcamo MD Work Phone: [facility] 01-02-2024 16:42-0400 Heart rate 106 /min Faustina Carcamo MD Work Phone: [facility] 01-02-2024 16:42-0400 Respiratory rate 18 /min Faustina Carcamo MD Work Phone: [facility] 01-02-2024 16:42-0400 SaO2% (BldA) [Mass fraction] 98 % Faustina Carcamo MD Work Phone: [facility] 01-02-2024 16:42-0400 Systolic blood pressure 122 mm[Hg] Faustina Carcamo MD Work Phone: [facility] 12-14-2023 12:51-0400 Body mass index (BMI) [Ratio] 51.11 kg/m2 Anton Moomaw EDUCATION ANALYST.SENIOR MORTGAGE UNDERWRITER Work Phone: [facility] 12-14-2023 12:51-0400 Body temperature 98.29 [degF] Anton Moomaw EDUCATION ANALYST.SENIOR MORTGAGE UNDERWRITER Work Phone: [facility] 12-14-2023 12:51-0400 Body weight 122.7 kg Anton Moomaw EDUCATION ANALYST.SENIOR MORTGAGE UNDERWRITER Work Phone: [facility] 12-14-2023 12:51-0400 Diastolic blood pressure 82 mm[Hg] Anton Moomaw EDUCATION ANALYST.SENIOR MORTGAGE UNDERWRITER Work Phone: [facility] 12-14-2023 12:51-0400 Heart rate 128 /min Anton Moomaw EDUCATION ANALYST.SENIOR MORTGAGE UNDERWRITER Work Phone: [facility] 12-14-2023 12:51-0400 Respiratory rate 21 /min Anton Moomaw EDUCATION ANALYST.SENIOR MORTGAGE UNDERWRITER Work Phone: [facility] 12-14-2023 12:51-0400 SaO2% (BldA) [Mass fraction] 97 % Anton Moomaw EDUCATION ANALYST.SENIOR MORTGAGE UNDERWRITER Work Phone: [facility] 12-14-2023 12:51-0400 Systolic blood pressure 138 mm[Hg] Anton Moomaw EDUCATION ANALYST.SENIOR MORTGAGE UNDERWRITER Work Phone: [facility] 12-08-2023 14:47-0400 Body mass index (BMI) [Ratio] 51.94 kg/m2 Isela Street MD Work Phone: [facility] 12-08-2023 14:47-0400 Body weight 124.[address] MD Work Phone: [facility] 12-08-2023 14:47-0400 Diastolic blood pressure 89 mm[Hg] Isela Street MD Work Phone: [facility] 12-08-2023 14:47-0400 Heart rate 89 /min Isela Street MD Work Phone: [facility] 12-08-2023 14:47-0400 SaO2% (BldA) [Mass fraction] 97 % Isela Street MD Work Phone: [facility] 12-08-2023 14:47-0400 Systolic blood pressure 126 mm[Hg] Isela Street MD Work Phone: [facility] 10-27-2023 09:26-0400 Body weight 123.5 kg Qian Pena APRN.SENIOR MORTGAGE UNDERWRITER Work Phone: [facility] 10-27-2023 09:26-0400 Diastolic blood pressure 90 mm[Hg] Qian Pena APRN.SENIOR MORTGAGE UNDERWRITER Work Phone: [facility] 10-27-2023 09:26-0400 Heart rate 87 /min Qian Pena APRN.SENIOR MORTGAGE UNDERWRITER Work Phone: [facility] 10-27-2023 09:26-0400 SaO2% (BldA) [Mass fraction] 96 % Qian Pena APRN.SENIOR MORTGAGE UNDERWRITER Work Phone: [facility] 10-27-2023 09:26-0400 Systolic blood pressure 136 mm[Hg] Qian Pena APRN.SENIOR MORTGAGE UNDERWRITER Work Phone: [facility] 10-14-2023 11:07-0500 Body weight 123.83 kg Genaro Neri EDUCATION ANALYST.VPK TEACHER Work Phone: [facility] 10-14-2023 11:07-0500 Diastolic blood pressure 88 mm[Hg] Genaro Neri EDUCATION ANALYST.VPK TEACHER Work Phone: [facility] 10-14-2023 11:07-0500 Heart rate 128 /min Genaro Neri EDUCATION ANALYST.VPK TEACHER Work Phone: [facility] 10-14-2023 11:07-0500 Respiratory rate 16 /min Genaro Neri EDUCATION ANALYST.VPK TEACHER Work Phone: [facility] 10-14-2023 11:07-0500 Systolic blood pressure 118 mm[Hg] Genaro Neri EDUCATION ANALYST.VPK TEACHER Work Phone: [facility] 07-22-2023 13:41-0500 Body height 154.9 cm Joe Contreras MD Work Phone: [facility] 07-22-2023 13:41-0500 Body weight 121.75 kg Joe Contreras MD Work Phone: [facility] 07-22-2023 13:41-0500 Diastolic blood pressure 84 mm[Hg] Joe Contreras MD Work Phone: [facility] 07-22-2023 13:41-0500 Systolic blood pressure 126 mm[Hg] Joe Contreras MD Work Phone: [facility] 06-06-2023 08:32-0400 Body temperature 97.59 [degF] Patsy Towers PA-C Work Phone: [facility] 06-06-2023 08:32-0400 Body weight 120.66 kg Patsy Towers PA-C Work Phone: [facility] 06-06-2023 08:32-0400 Diastolic blood pressure 93 mm[Hg] Patsy Towers PA-C Work Phone: [facility] 06-06-2023 08:32-0400 Heart rate 111 /min Patsy Towers PA-C Work Phone: [facility] 06-06-2023 08:32-0400 SaO2% (BldA) [Mass fraction] 98 % Patsy Towers PA-C Work Phone: [facility] 06-06-2023 08:32-0400 Systolic blood pressure 131 mm[Hg] Patsy Towers PA-C Work Phone: [facility] 05-20-2023 07:32-0400 Body weight 122.47 kg Genaro Neri EDUCATION ANALYST.VPK TEACHER Work Phone: [facility] 05-20-2023 07:32-0400 Diastolic blood pressure 78 mm[Hg] Genaro Neri EDUCATION ANALYST.VPK TEACHER Work Phone: [facility] 05-20-2023 07:32-0400 Heart rate 91 /min Genaroclaire Garcias EDUCATION ANALYST.VPK TEACHER Work Phone: [facility] 05-20-2023 07:32-0400 Respiratory rate 16 /min Genaro Neri EDUCATION ANALYST.VPK TEACHER Work Phone: [facility] 05-20-2023 07:32-0400 SaO2% (BldA) [Mass fraction] 97 % Genaro Neri EDUCATION ANALYST.VPK TEACHER Work Phone: [facility] 05-20-2023 07:32-0400 Systolic blood pressure 119 mm[Hg] Genaro Neri EDUCATION ANALYST.VPK TEACHER Work Phone: [facility] 02-25-2023 16:03-0400 Body height 154.9 cm Ayaan Rowley EDUCATION ANALYST.CNM Work Phone: [facility] 02-25-2023 16:03-0400 Body weight 118.75 kg Ayaan Rowley EDUCATION ANALYST.CNM Work Phone: [facility] 02-25-2023 16:03-0400 Diastolic blood pressure 76 mm[Hg] Ayaan Harryts EDUCATION ANALYST.CNM Work Phone: [facility] 02-25-2023 16:03-0400 Systolic blood pressure 124 mm[Hg] Ayaan Harryts EDUCATION ANALYST.CNM Work Phone: [facility] 02-07-2023 11:11-0400 Body temperature 97.5 [degF] Krislyn Aberegg PA Work Phone: [facility] 02-07-2023 11:11-0400 Diastolic blood pressure 64 mm[Hg] Krislyn Aberegg PA Work Phone: [facility] 02-07-2023 11:11-0400 Heart rate 65 /min Krislyn Aberegg PA Work Phone: [facility] 02-07-2023 11:11-0400 Respiratory rate 21 /min Krislyn Aberegg PA Work Phone: [facility] 02-07-2023 11:11-0400 SaO2% (BldA) [Mass fraction] 98 % Krislyn Aberegg PA Work Phone: [facility] 02-07-2023 11:11-0400 Systolic blood pressure 100 mm[Hg] Krislyamarilis Aberegg PA Work Phone: [facility] 12-03-2022 14:14-0400 Body weight 118.89 kg Silvia Tucker MD Work Phone: [facility] 12-03-2022 14:14-0400 Diastolic blood pressure 88 mm[Hg] Silvia Tucker MD Work Phone: [facility] 12-03-2022 14:14-0400 Heart rate 110 /min Silvia Tucker MD Work Phone: [facility] 12-03-2022 14:14-0400 Systolic blood pressure 132 mm[Hg] Silvia Tucker MD Work Phone: [facility] 09-20-2022 19:49-0500 Body temperature 97.59 [degF] Miriam Ordoñez MD Work Phone: [facility] 09-20-2022 19:49-0500 Diastolic blood pressure 86 mm[Hg] Miriam Ordoñez MD Work Phone: [facility] 09-20-2022 19:49-0500 Heart rate 102 /min Miriam Ordoñez MD Work Phone: [facility] 09-20-2022 19:49-0500 Respiratory rate 16 /min Miriam Ordoñez MD Work Phone: [facility] 09-20-2022 19:49-0500 SaO2% (BldA) [Mass fraction] 98 % Miriam Ordoñez MD Work Phone: [facility] 09-20-2022 19:49-0500 Systolic blood pressure 133 mm[Hg] Miriam Ordoñez MD Work Phone: [facility] 08-11-2022 16:52-0500 Body temperature 97.2 [degF] Faustina Carcamo MD Work Phone: [facility] 08-11-2022 16:52-0500 Body weight 117.03 kg Faustina Carcamo MD Work Phone: [facility] 08-11-2022 16:52-0500 Diastolic blood pressure 68 mm[Hg] Faustina Carcamo MD Work Phone: [facility] 08-11-2022 16:52-0500 Heart rate 107 /min Faustina Carcamo MD Work Phone: [facility] 08-11-2022 16:52-0500 Respiratory rate 18 /min Faustina Carcamo MD Work Phone: [facility] 08-11-2022 16:52-0500 SaO2% (BldA) [Mass fraction] 99 % Faustina Carcamo MD Work Phone: [facility] 08-11-2022 16:52-0500 Systolic blood pressure 122 mm[Hg] Faustina Carcamo MD Work Phone: [facility] 07-14-2022 15:41-0500 Body weight 120.93 kg Ayaan Rowley EDUCATION ANALYST.CNM Work Phone: [facility] 07-14-2022 15:41-0500 Diastolic blood pressure 72 mm[Hg] Ayaan Rowley EDUCATION ANALYST.CNM Work Phone: [facility] 07-14-2022 15:41-0500 Systolic blood pressure 128 mm[Hg] Ayaan Rowley EDUCATION ANALYST.CNM Work Phone: [facility] 06-28-2022 15:33-0500 Body temperature 97.39 [degF] Marina Goodrich EDUCATION ANALYST-SENIOR MORTGAGE UNDERWRITER Work Phone: [facility] 06-28-2022 15:33-0500 Diastolic blood pressure 82 mm[Hg] Marina Goodrich EDUCATION ANALYST-SENIOR MORTGAGE UNDERWRITER Work Phone: [facility] 06-28-2022 15:33-0500 Heart rate 92 /min Marina Joleen EDUCATION ANALYST-SENIOR MORTGAGE UNDERWRITER Work Phone: [facility] 06-28-2022 15:33-0500 Respiratory rate 16 /min Marina Joleen EDUCATION ANALYST-SENIOR MORTGAGE UNDERWRITER Work Phone: [facility] 06-28-2022 15:33-0500 SaO2% (BldA) [Mass fraction] 94 % Marina Joleen EDUCATION ANALYST-SENIOR MORTGAGE UNDERWRITER Work Phone: [facility] 06-28-2022 15:33-0500 Systolic blood pressure 119 mm[Hg] Marina Goodrich EDUCATION ANALYST-SENIOR MORTGAGE UNDERWRITER Work Phone: [facility] 05-05-2022 12:30-0400 Body mass index (BMI) [Ratio] 49.13 kg/m2 Casey Cooney MD Work Phone: [facility] 05-05-2022 12:30-0400 Body weight 121.11 kg Casey Cooney MD Work Phone: [facility] 05-05-2022 12:30-0400 Diastolic blood pressure 76 mm[Hg] Casey Cooney MD Work Phone: [facility] 05-05-2022 12:30-0400 Heart rate 78 /min Casey Cooney MD Work Phone: [facility] 05-05-2022 12:30-0400 SaO2% (BldA) [Mass fraction] 99 % Casey Cooney MD Work Phone: [facility] 05-05-2022 12:30-0400 Systolic blood pressure 102 mm[Hg] Casey Cooney MD Work Phone: [facility] 05-02-2022 09:32-0400 Body height 156.2 cm Ovijuan Herrera DO Work Phone: [facility] 05-02-2022 09:32-0400 Body mass index (BMI) [Ratio] 50.38 kg/m2 Ovi María CLINE Work Phone: [facility] 05-02-2022 09:32-0400 Body temperature 98.1 [degF] Ovi Herrera Work Phone: [facility] 05-02-2022 09:32-0400 Body weight 122.92 kg Ovi María CLINE Work Phone: [facility] 05-02-2022 09:32-0400 Diastolic blood pressure 82 mm[Hg] Ovi Herrera DO Work Phone: [facility] 05-02-2022 09:32-0400 Heart rate 93 /min Ovi María CLINE Work Phone: [facility] 05-02-2022 09:32-0400 Respiratory rate 17 /min Ovi Herrera Work Phone: [facility] 05-02-2022 09:32-0400 SaO2% (BldA) [Mass fraction] 95 % Ovi Herrera Work Phone: [facility] 05-02-2022 09:32-0400 Systolic blood pressure 135 mm[Hg] Ovi Herrera Work Phone: [facility] 04-16-2022 08:05-0400 Body height 157 cm Mario LARRY Work Phone: [facility] 04-16-2022 08:05-0400 Body mass index (BMI) [Ratio] 49.87 kg/m2 Mario LARRY Work Phone: [facility] 04-16-2022 08:05-0400 Body weight 122.92 kg Dhanu Mingo MBBS Work Phone: [facility] 04-16-2022 08:05-0400 Diastolic blood pressure 88 mm[Hg] Dhanu Mingo MBBS Work Phone: [facility] 04-16-2022 08:05-0400 Heart rate 102 /min Dhanu Mingo MBBS Work Phone: [facility] 04-16-2022 08:05-0400 SaO2% (BldA) [Mass fraction] 98 % Dhanu Mingo MBBS Work Phone: [facility] 04-16-2022 08:05-0400 Systolic blood pressure 128 mm[Hg] Dhanu Mingo MBBS Work Phone: [facility] 03-30-2022 17:26-0400 Body weight 120.2 kg Faustina Carcamo MD Work Phone: [facility] 03-30-2022 17:26-0400 Diastolic blood pressure 70 mm[Hg] Faustina Carcamo MD Work Phone: [facility] 03-30-2022 17:26-0400 Heart rate 100 /min Faustina Carcamo MD Work Phone: [facility] 03-30-2022 17:26-0400 SaO2% (BldA) [Mass fraction] 97 % Faustina Carcamo MD Work Phone: [facility] 03-30-2022 17:26-0400 Systolic blood pressure 102 mm[Hg] Faustina Carcamo MD Work Phone: [facility] 01-13-2022 09:05-0400 Body weight 120.66 kg Ayaan Rowley EDUCATION ANALYST.CNM Work Phone: [facility] 01-13-2022 09:05-0400 Diastolic blood pressure 76 mm[Hg] Ayaan Rowley EDUCATION ANALYST.CNM Work Phone: [facility] 01-13-2022 09:05-0400 Systolic blood pressure 122 mm[Hg] Ayaan Plotts EDUCATION ANALYST.CNM Work Phone: [facility] 01-05-2022 14:23-0400 Body weight 119.3 kg Genaro Neri EDUCATION ANALYST.VPK TEACHER Work Phone: [facility] 01-05-2022 14:23-0400 Diastolic blood pressure 88 mm[Hg] Genaro Neri EDUCATION ANALYST.VPK TEACHER Work Phone: [facility] 01-05-2022 14:23-0400 Heart rate 114 /min Genaro Neri EDUCATION ANALYST.VPK TEACHER Work Phone: [facility] 01-05-2022 14:23-0400 Respiratory rate 16 /min Genaro Neri EDUCATION ANALYST.VPK TEACHER Work Phone: [facility] 01-05-2022 14:23-0400 SaO2% (BldA) [Mass fraction] 97 % Genaro Neri EDUCATION ANALYST.VPK TEACHER Work Phone: [facility] 01-05-2022 14:23-0400 Systolic blood pressure 122 mm[Hg] Genaro Neri EDUCATION ANALYST.VPK TEACHER Work Phone: [facility] 12-04-2021 09:34-0400 Body weight 120.66 kg Ayaan Plotts EDUCATION ANALYST.CNM Work Phone: [facility] 12-04-2021 09:34-0400 Diastolic blood pressure 68 mm[Hg] Ayaan Plotts EDUCATION ANALYST.CNM Work Phone: [facility] 12-04-2021 09:34-0400 Systolic blood pressure 112 mm[Hg] Ayaan Plotts EDUCATION ANALYST.CNM Work Phone: [facility] 11-17-2021 12:14-0400 Body height 152.4 cm Yair Lyons MD Work Phone: [facility] 11-17-2021 12:14-0400 Body weight 120.66 kg Yair Lyons MD Work Phone: [facility] 09-22-2021 18:17-0500 Body weight 117.94 kg Faustina Carcamo MD Work Phone: [facility] 09-22-2021 18:17-0500 Diastolic blood pressure 78 mm[Hg] Faustina Carcamo MD Work Phone: [facility] 09-22-2021 18:17-0500 Heart rate 86 /min Faustina Carcamo MD Work Phone: [facility] 09-22-2021 18:17-0500 Systolic blood pressure 112 mm[Hg] Faustina Carcamo MD Work Phone: [facility] Encounters Encounter Date Encounter Type Care Provider Facility Start: 06-25-2025 End: 06-25-[facility] Start: 06-19-2025 End: 06-19-2025 [facility] Start: 06-18-2025 End: 06-18-2025 ambulatory [facility] D [facility] Facility:[facility] Start: 06-16-2025 End: 06-16-2025 Emergency department patient visit Mohit Moura Facility:[facility] Start: 06-04-2025 End: 06-04-2025 ambulatory [facility] Facility:[facility] Start: 04-29-2025 End: 04-29-2025 Telephone encounter Ayaan Rowley APRN.CNM Work Phone: OB/Gynecology Comment on above: Results Start: 04-26-2025 End: 04-26-2025 Refill Silvia Tucker MD Work Phone: Rheumatology Comment on above: Refill Request SPP Inflammatory Con ditions - Medication Refill (Ilaris) Hidradenitis suppura tiva (Primary Dx); Recurrent boils; Vaginal wall cyst Start: 04-03-2025 End: 04-03-2025 Telephone encounter Ayaan Rowley APRN.CNM Work Phone: OB/Gynecology Comment on above: bleeding after colpo scopy Start: 03-29-2025 End: 03-29-2025 Specialty Pharmacy Tracey Rollins [facility] Comment on above: SPP Inflammatory Con ditions - Medication Refill (Ilaris) Start: 03-28-2025 End: 03-28-2025 Patient encounter procedure Fredy Elmore MD Work Phone: OB/Gynecology Comment on above: Low grade squamous i ntraepithelial lesion on cytologic smear of vagina (LGSIL) (Primary Dx) Clinical Update Start: 03-28-2025 End: 03-28-2025 ambulatory Lizabeth Loera RN NURSE FIBERGLASSER Start: 03-27-2025 End: 03-27-2025 ambulatory Traceyneyda Rollins [facility] Start: 03-27-2025 End: 03-27-2025 Follow-up encounter Tracey Rollins [facility] Comment on above: SPP Inflammatory Con ditions - Follow-up (Ilaris); Insurance Authorization (PA renewal submitted ) Start: 03-18-2025 End: 03-19-2025 Refill Silvia Tucker MD Work Phone: Rheumatology Comment on above: Refill Request Start: 03-11-2025 End: 03-11-2025 Subsequent hospital visit by physician Paco [facility] Work Phone: Radiology Comment on above: Upper back strain, i nitial encounter [S29.012A] Start: 03-11-2025 End: 03-11-2025 ambulatory JIMY KRAFT Facility:[facility] Start: 03-11-2025 End: 03-11-2025 Patient encounter procedure Jimyclaire Kraft APRN.CNP Work Phone: [facility] Comment on above: Upper back strain, i nitial encounter (Primary Dx); Upper back pain Start: 03-01-2025 End: 03-01-2025 Specialty Pharmacy Ramin Glasgow [facility] Comment on above: SPP Inflammatory Con ditions - Medication Refill (Ilaris) Start: 02-27-2025 End: 02-27-2025 Telephone encounter Michelle Rojas APRN.CNP Work Phone: OB/Gynecology Comment on above: Results Start: 02-26-2025 End: 02-26-2025 [facility] Start: 02-24-2025 End: 02-24-2025 Emergency department patient visit Mohit Moura Facility:[facility] Start: 02-23-2025 End: 02-23-2025 ambulatory Rebecca Maloney RN NURSE FIBERGLASSER Start: 02-23-2025 End: 02-23-2025 Patient encounter procedure Rebecca Maloney RN NURSE FIBERGLASSER Comment on above: Clinical Update Start: 02-22-2025 End: 02-22-2025 Emergency department patient visit Mahesh Cannon Facility:[facility] Start: 02-21-2025 End: 04-23-2025 Follow-up encounter Michelle Rojas APRN.CNP Work Phone: OB/Gynecology Start: 02-20-2025 End: 02-20-2025 Patient encounter procedure Michelle Rojas APRN.CNP Work Phone: OB/Gynecology Comment on above: Encounter for gyneco logical examination (general) (routine) without abnormal findings (Primary Dx); Screening for cervical cancer; Encounter for screening for human papillomavirus (HPV); Screen for STD (sexually transmitted disease); Immunocompromised state (HCC) Start: 02-20-2025 End: 02-20-2025 Patient encounter status Michelle Rojas APRN.CNP Work Phone: [facility] Work Phone: Start: 02-20-2025 End: 02-20-2025 ambulatory [facility]USTINA D [facility] Facility:[facility] Start: 02-20-2025 Encounter for gynecological examination (general) (routine) without abnormal findings MICHELLE ROJAS [facility] Start: 01-31-2025 End: 01-31-2025 Specialty Pharmacy Ramin Glasgow [facility] Comment on above: SPP Inflammatory Con ditions - Medication Refill (Ilaris ) Start: 01-27-2025 End: 01-27-2025 Emergency department patient visit Braulio Beltrán Facility:[facility] Start: 01-21-2025 End: 01-21-2025 ambulatory Faustina D Pradeep Facility:[facility] Start: 01-11-2025 End: 01-11-2025 ambulatory [facility] Start: 01-11-2025 End: 01-11-2025 Patient encounter procedure [facility] Comment on above: Update from Appoint ent Start: 01-09-2025 End: 01-09-2025 Patient encounter procedure Petra Lugo APRN.CNP Work Phone: [facility] Comment on above: Panic disorder with agoraphobia (Primary Dx); Immunosuppression (HCC); Periodic fever syndrome (HCC); Gastroenteritis Start: 01-09-2025 End: 01-09-2025 ambulatory [facility] Facility:[facility] Start: 12-21-2024 End: 12-21-2024 Patient encounter procedure Kedar BOATENG Work Phone: [facility] Comment on above: Acute non-recurrent maxillary sinusitis (Primary Dx); Sore throat Start: 12-21-2024 End: 12-21-2024 ambulatory KEDAR VARELA Facility:[facility] Start: 12-18-2024 End: 12-18-2024 Telephone encounter Qian Hillman MD Work Phone: OB/Gynecology Comment on above: Patient Question (Qu estions before apt 12/19) Start: 12-18-2024 End: 12-18-2024 Patient encounter procedure Silvia Tucker MD Work Phone: Rheumatology Comment on above: SO-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); Immunosuppression (HCC) Start: 12-18-2024 End: 12-18-2024 ambulatory [facility] Facility:[facility] Start: 11-24-2024 End: 01-24-2025 Follow-up encounter Madhu Grande MD Work Phone: [facility] Start: 11-23-2024 End: 11-23-2024 ambulatory [facility] Facility:[facility] Start: 11-23-2024 End: 11-26-2024 Telephone [...] syndrome (HCC) Start: 11-22-2024 End: 11-22-2024 ambulatory [facility] Facility:[facility] Start: 11-22-2024 End: 11-22-2024 Patient encounter procedure Kedar Varela PA Work Phone: [facility] Comment on above: Sore throat (Primary Dx); Exudative tonsillitis Start: 11-19-2024 End: 11-19-2024 ambulatory [facility] Facility:[facility] Start: 11-19-2024 End: 11-19-2024 Patient encounter procedure Rosaura Santacruz APRN.SENIOR MORTGAGE UNDERWRITER Work Phone: [facility] Comment on above: Pharyngitis, unspeci fied etiology (Primary Dx) Start: 11-09-2024 End: 11-09-2024 Emergency department patient visit [facility] Facility:[facility] Start: 11-08-2024 End: 11-09-2024 ambulatory Diane Melendrez RN NURSE FIBERGLASSER Comment on above: Bradycardia Start: 10-31-2024 End: 10-31-2024 ambulatory [facility] Facility:[facility] Start: 10-31-2024 End: 10-31-2024 Office outpatient visit 25 minutes Nicholas Dorantes APRN.SENIOR MORTGAGE UNDERWRITER Work Phone: [facility] Comment on above: Laceration of [...] Faustina Carcamo MD Work Phone: [facility] [place] Comment on above: Refill Request Start: 10-24-2024 End: 10-24-2024 Subsequent hospital visit by physician Xr [facility] Work Phone: Radiology Comment on above: Injury of left wrist , initial encounter [S69.92XA] Start: 10-24-2024 End: 10-24-2024 ambulatory [facility] Facility:[facility] Start: 10-24-2024 End: 10-24-2024 Patient encounter procedure Steven Harris APRN.SENIOR MORTGAGE UNDERWRITER Work Phone: [facility] Comment on above: Injury of left wrist , initial encounter (Primary Dx) Start: 10-17-2024 End: 10-17-2024 ambulatory [facility] Facility:[facility] Start: 10-16-2024 End: 10-16-2024 Office outpatient visit 25 minutes Faustina Carcamo MD Work Phone: [facility] [place] Comment on above: Vitamin D deficiency (Primary Dx); Other fatigue; Myalgias; Polyarthritis; Muscle weakness (generalized); Abnormal TSH Start: 10-16-2024 End: 10-16-2024 Specialty Pharmacy Ramin Glasgow [facility] Comment on above: SPP Inflammatory Con ditions - Medication Refill (Ilaris) Start: 09-25-2024 End: 11-25-2024 Follow-up encounter Rosaura Santacruz APRN.SENIOR MORTGAGE UNDERWRITER Work Phone: [facility] Start: 09-25-2024 End: 09-25-2024 Patient encounter procedure Rosaura Santacruz APRN.SENIOR MORTGAGE UNDERWRITER Work Phone: [facility] Comment on above: URI, acute (Primary Dx); Acute cough Start: 09-25-2024 End: 09-25-2024 ambulatory FAUSTINA CARCAMO Facility:[facility] Start: 09-25-2024 End: 09-25-2024 Subsequent hospital visit by physician Paco [facility] Work Phone: Radiology Comment on above: Acute cough [R05.1] Start: 09-13-2024 End: 09-13-2024 Specialty Pharmacy Ramin Glasgow [facility] Comment on above: SPP Inflammatory Con ditions - Medication Refill (Ilaris) Start: 09-11-2024 End: 09-11-2024 ambulatory Moon Neves Ruthann CLAUDIOSENIOR MORTGAGE UNDERWRITER Work Phone: [facility] [place] Comment on above: Situational anxiety (Primary Dx) Start: 09-11-2024 End: 09-11-2024 Telemedicine consultation with patient Moon Neves Ruthann ARECHIGA.SENIOR MORTGAGE UNDERWRITER Work Phone: [facility] Start: 09-06-2024 End: 09-07-2024 Telephone encounter Faustina Carcamo MD Work Phone: [facility] [place] Comment on above: referral question Start: 08-26-2024 End: 08-27-2024 Refill Faustina Carcamo MD Work Phone: [facility] [place] Comment on above: Refill Request Start: 08-20-2024 End: 08-20-2024 Office outpatient visit 15 minutes Faustina Carcamo MD Work Phone: [facility] [place] Comment on above: PVC (premature ventr icular contraction) (Primary Dx); Panic attacks; Panic disorder with agoraphobia; PTSD (post-traumatic stress disorder); Postural orthostatic tachycardia syndrome (POTS); Pleurisy Start: 08-20-2024 End: 08-20-2024 ambulatory FAUSTINA CARCAMO Facility:[facility] Start: 08-02-2024 End: 08-02-2024 Specialty Pharmacy Ramin Glasgow [facility] Comment on above: SPP Inflammatory Con ditions - Medication Refill (Ilaris) Start: 07-30-2024 End: 07-30-2024 Telemedicine consultation with patient Silvia Tucker MD Work Phone: Rheumatology Start: 07-30-2024 End: 07-30-2024 ambulatory Silvia Tucker MD Work Phone: Rheumatology Comment on above: Periodic fever syndr ome (HCC) (Primary Dx); 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 Aurea Carcamo Facility:[facility] Start: 07-19-2024 End: 07-19-2024 Telephone encounter Faustina Carcamo MD Work Phone: Internal Medicine [place] Comment on above: Patient Update; Medi cation Request Start: 07-11-2024 End: 07-11-[address] [facility] Aurea [facility] Facility:[facility] Start: 07-11-2024 End: 07-11-2024 Office outpatient visit 25 minutes Devante Austin PA-C Work Phone: [place] [facility] Comment on above: Acute recurrent sinu sitis, unspecified location (Primary Dx) Start: 07-04-2024 End: 07-04-2024 Patient encounter procedure Moon Beavers APRN.CNP Work Phone: Internal Medicine [place] Comment on above: Epigastric abdominal pain (Primary Dx); Heartburn Start: 07-04-2024 End: 07-04-2024 ambulatory FAUSTINA CARCAMO Facility:[facility] Start: 07-02-2024 End: 07-02-2024 Specialty Pharmacy [facility] Comment on above: SPP Inflammatory Con ditions - Medication Refill (Ilaris) Start: 06-14-2024 End: 06-14-2024 Telephone encounter Silvia Tucker MD Work Phone: Rheumatology Comment on above: Patient Update Start: 06-08-2024 End: 06-08-2024 ambulatory Genaro Neri APRN.VPK TEACHER Work Phone: Internal Medicine [place] Comment on above: Periodic fever syndr ome (HCC) (Primary Dx); Pain in joint, multiple sites; Other chest pain; Palpitations SPP Inflammatory Con ditions - Medication Refill (Ilaris) Start: 06-08-2024 End: 06-08-2024 Telemedicine consultation with patient Genaro Neri APRN.VPK TEACHER Work Phone: Internal Medicine [place] Start: 06-06-2024 End: 06-07-2024 ambulatory Silvia Tucker MD Work Phone: Rheumatology Comment on above: Flare Start: 05-15-2024 End: 05-15-2024 Specialty Pharmacy Ramin [facility] Comment on above: SPP Inflammatory Con ditions - Medication Refill (Ilaris) Start: 05-14-2024 End: 05-14-[address] [facility] Start: 05-14-2024 End: 05-14-2024 Nutrition therapy Pauly [address] RD [facility] Comment on above: Assessment; Patient Education Start: 05-04-2024 End: 05-08-2024 Telephone encounter Faustina Carcamo MD Work Phone: Internal Medicine [place] Comment on above: Orders (Adjustable R ollator) Start: 04-30-2024 End: 04-30-2024 Telephone encounter Faustina Carcamo MD Work Phone: Family Medicine [place] Comment on above: Orders Start: 04-30-2024 End: 04-30-2024 Office outpatient visit 10 minutes Faustina Carcamo MD Work Phone: Internal Medicine [place] Comment on above: Bilateral hip pain ( Primary Dx); Chronic pain of both knees; POTS (postural orthostatic tachycardia syndrome); Arthritis; Mobility poor Start: 04-24-2024 End: 04-24-2024 Refill Silvia Tucker MD Work Phone: [facility] Comment on above: Refill Request Start: 04-19-2024 End: 04-19-2024 ambulatory Ramin [facility] Start: 04-19-2024 End: 04-19-2024 Patient encounter procedure Ramin Glasgow [facility] Comment on above: SPP Inflammatory Con ditions - Treatment Referral (Ilaris); Insurance Authorization ([place]?) Start: 04-17-2024 End: 04-18-2024 Refill Silvia Tucker MD Work Phone: Rheumatology Comment on above: Refill Request Start: 04-03-2024 End: 04-06-2024 Refill Silvia Tucker MD Work Phone: Rheumatology Comment on above: Appointment Start: 04-03-2024 End: 04-03-2024 Office outpatient visit 25 minutes Genaro Neri APRN.CNS Work Phone: Internal Medicine [place] Comment on above: Vitamin D deficiency (Primary Dx); Class 3 severe obesity due to excess calories with body mass index (BMI) of 50.0 to 59.9 in adult, unspecified whether serious comorbidity present ([facility]) Start: 04-02-2024 End: 04-02-2024 Subsequent hospital visit by physician Xr [facility] [place] Work Phone: Radiology Comment on above: SO-JILLIAN (systemic ons et juvenile idiopathic arthritis) ([facility]) [M08.20] Start: 03-31-2024 End: 04-02-2024 ambulatory Silvia Tucker MD Work Phone: Rheumatology Comment on above: Question re: Pleuris y Start: 03-29-2024 Telephone encounter Ayaan mar APRN.CNM Work Phone: OB/Gynecology Comment on above: Orders (HPV) Start: 03-29-2024 End: 03-29-2024 Nursing evaluation of patient and report Nurse Wall [employer] Wall Carpet Installer [facility] Work Phone: OB/Gynecology Comment on above: [...] Information for Ilaris Start: 03-15-2024 End: 03-15-2024 Patient encounter procedure Karen Jones MD Work Phone: OB/Gynecology Comment on above: Cervical high risk H PV (human papillomavirus) test positive (Primary Dx); Nonavalent human papilloma virus (HPV) vaccine for HPV types 6, 11, 16, 18, 31, 33, 45, 52, and 58 administered Start: 03-12-2024 Telephone encounter aNni chapin APRN.CNP Work Phone: OB/Gynecology Comment on above: Results; Colposcopy Start: 03-12-2024 End: 03-12-2024 Patient encounter procedure Silvia Tucker MD Work Phone: Rheumatology Comment on above: SO-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); Immunosuppression (HCC); Vitamin D deficiency Start: 02-27-2024 End: 02-27-2024 Patient encounter procedure [...] encounter status Ayaan Rowley GENI.CNM Work Phone: [facility] Start: 02-13-[address] MD Work Phone: Allergy Comment on above: lab results Start: 02-13-2024 E-mail encounter fro m caregiver Isela Street MD Work Phone: Allergy Start: 01-17-2024 End: 01-17-2024 Patient encounter procedure Karen Jones MD Work Phone: OB/Gynecology Comment on above: Abnormal uterine ble eding (AUB) (Primary Dx) Start: 01-02-2024 End: 01-02-2024 Office outpatient visit 25 minutes Faustina Carcamo MD Work Phone: Internal Medicine [place] Comment on above: Bilateral lower extr emity edema (Primary Dx); Intermittent diarrhea; Class 3 severe obesity due to excess calories with body mass index (BMI) of 50.0 to 59.9 in adult, unspecified whether serious comorbidity present (HCC); Encounter for long-term current use of medication Start: 12-14-2023 End: 12-14-2023 Patient encounter procedure Anton Danielafranc ARECHIGA.SENIOR MORTGAGE UNDERWRITER [facility] Comment on above: Diarrhea, unspecifie d [...] End: 10-27-2023 Patient encounter procedure Qian Pena APRN.SENIOR MORTGAGE UNDERWRITER Work Phone: Cardiology Comment on above: POTS (postural ortho static tachycardia syndrome) (Primary Dx) Start: 10-24-2023 End: 10-24-2023 ambulatory Faustina Carcamo MD Work Phone: Internal Medicine [place] Comment on above: Latex allergy (Prima ry Dx); Vitamin D deficiency; Elevated TSH; Inappropriate sinus node tachycardia (HCC) Start: 10-24-2023 End: 10-24-2023 Telemedicine consultation with patient Faustina Carcamo MD Work Phone: [facility] Start: 10-14-2023 End: 10-14-2023 Subsequent hospital visit by physician Xr [facility] [place] Work Phone: Radiology Comment on above: Chronic left shoulde r pain [M25.512, G89.29] Start: 10-14-2023 End: 10-14-2023 Office outpatient visit 15 minutes Genaro Neri APRN.CNS Work Phone: Internal Medicine [place] Comment on above: Screen for STD (sexu ally transmitted disease) (Primary Dx); Chronic left shoulder pain Start: 09-23-2023 Refill Patjd chong MD Work Phone: Rheumatology Comment on above: Refill Request Start: 08-19-2023 End: 08-19-2023 ambulatory Radha Paris BELL Work Phone: Neurology Comment on above: Atypical facial pain (Primary Dx); Chronic migraine without aura, with intractable migraine, so stated, with status migrainosus Start: 08-19-2023 End: 08-19-2023 Telemedicine consultation with patient Radha Lombardojody BELL Work Phone: [facility] Start: 07-28-2023 Refill Patjd chong MD Work Phone: Rheumatology/Pulmona ry Start: 07-25-2023 End: 07-25-2023 ambulatory Ultrasound Stro Work Phone: OB/Gynecology Start: 07-25-2023 End: 07-25-2023 Patient encounter procedure Ultrasound [employer] Installer [facility] Stro Work Phone: [facility] Start: 07-22-2023 End: 07-22-2023 Office outpatient visit 15 minutes Joe Contreras MD Work Phone: OB/Gynecology Comment on above: Pelvic pain in femal e (Primary Dx) Start: 07-06-2023 ambulatory Patomponjean chong MD Work Phone: Rheumatology/Pulmona ry Comment on above: Regarding lab tests Start: 07-02-2023 ambulatory Patompong Nghia chong MD Work Phone: Rheumatology/Pulmona ry Comment on above: Labs Question Start: 06-23-2023 Refill Genaro RICCIVPK TEACHER Work Phone: Internal Medicine [place] Comment on above: Refill Request Start: 06-21-2023 Telephone encounter Yair membreno MD Work Phone: Neurology Comment on above: Patient Question Start: 06-06-2023 End: 06-06-2023 Orders Only Patsy Mobley PA-C Work Phone: [facility] Comment on above: Upper back pain (Eleanor yony Dx) Upper back pain (Eleanor yony Dx); Other acute gastritis without hemorrhage; Fever, unspecified fever cause Upper back pain [M54 .9] Start: 05-31-2023 End: 06-01-2023 ambulatory PATOMPONG UNGPRASERT Facility:[facility] Start: 05-25-2023 End: 05-25-2023 ambulatory Gonzalez Reyes PA-C Work Phone: Telemedicine Comment on above: Acute cystitis witho ut hematuria (Primary Dx) Start: 05-20-2023 End: 05-20-2023 Office outpatient visit 25 minutes Genaro Neri APRN.VPK TEACHER Work Phone: Internal Medicine [place] Comment on above: Other migraine witho ut status migrainosus, intractable (Primary Dx); Abnormal EKG; POTS (postural orthostatic tachycardia syndrome); Elevated TSH Start: 05-19-2023 Telephone encounter Faustina regan MD Work Phone: Internal Medicine [place] Comment on above: Patient Question Start: 05-19-2023 End: 05-19-2023 Emergency department patient visit JONATHAN PICKETT Facility:[facility] Start: 04-25-2023 End: 04-25-2023 ambulatory Yair Lyons MD Work Phone: Neurology Comment on above: Intractable chronic migraine without aura and without status migrainosus (Primary Dx) Start: 04-25-2023 End: 04-25-2023 Telemedicine consultation with patient Yair Lyons MD Work Phone: [facility] Start: 04-21-2023 Refill Yair de los santos MD Work Phone: Neurology Comment on above: Refill Request Start: 04-18-2023 End: 04-18-2023 ambulatory Akiangel Jiménez EDUCATION ANALYST.SENIOR MORTGAGE UNDERWRITER Work Phone: Telemedicine Comment on above: Treatment not availa ble (Primary Dx) Laryngitis (Primary Dx); Cough, unspecified type Start: 04-18-2023 End: 04-18-2023 Telemedicine consultation with patient Aki Barros Tino EDUCATION ANALYST.SENIOR MORTGAGE UNDERWRITER Work Phone: [facility] Start: 04-12-2023 ambulatory [facility] Comment on above: [employer]emra insurance ap proval - action required Refill Request Start: 04-12-2023 E-mail encounter fro m caregiver [facility] Start: 04-06-2023 Refill Silvia chong MD Work Phone: Rheumatology Comment on above: SPP Inflammatory Con ditions - Treatment Referral (Actemra); Insurance Authorization (PA submitted) Start: 03-29-2023 ambulatory Patjd chong MD Work Phone: Rheumatology/Pulmona ry Comment on above: Labs and update Start: 03-29-2023 E-mail encounter fro m caregiver Silvia Tucker MD Work Phone: [facility] Start: 03-25-2023 End: 03-26-2023 ambulatory PATOMPONG MONTEZPRASERT Facility:[facility] Start: 03-10-2023 Telephone encounter Silvia Tucker MD Work Phone: Rheumatology Comment on above: Patient Question (Ap peal ); Medication Preauthorization Start: 03-02-2023 ambulatory Patjd chong MD Work Phone: Rheumatology Comment on above: Flare Start: 02-25-2023 End: 02-25-2023 Patient encounter procedure Ayaan Rowley EDUCATION ANALYST.CNM Work Phone: OB/Gynecology Comment on above: Encounter for gyneco logical examination (general) (routine) without abnormal findings (Primary Dx); Screening for STD (sexually transmitted disease) Start: 02-25-2023 End: 02-25-2023 Patient encounter status Ayaan Rowley EDUCATION ANALYST.CNM Work Phone: [facility] Start: 02-16-2023 Refill Silvia chong MD Work [...] Faustina Carcamo MD Work Phone: Internal Medicine [place] Comment on above: PTSD (post-traumatic stress disorder) (Primary Dx); Migraine with aura and without status migrainosus, not intractable; POTS (postural orthostatic tachycardia syndrome); Periodic fever syndrome (HCC); Pain in joint, multiple sites; Panic disorder with agoraphobia; Irritable bowel syndrome with both constipation and diarrhea Start: 12-16-2022 Telephone encounter Faustina regan MD Work Phone: Internal Medicine [place] Comment on above: new form coming from [employer] Start: 12-15-2022 Telephone encounter Faustina regan MD Work Phone: Internal Medicine [place] Comment on above: requesting copy of f orm faxed earlier Start: 12-09-2022 ambulatory Faustina de los santos MD Work Phone: [facility] Start: 12-09-2022 Follow-up encounter Faustina regan MD Work Phone: Internal Medicine [place] Comment on above: ADA Follow Up Start: 12-09-2022 Telephone encounter Faustina regan MD Work Phone: Family Medicine [place] Comment on above: Letter (Needs letter for work.) Start: 12-03-2022 End: 12-03-2022 Patient encounter procedure Silvia Tucker MD Work Phone: Rheumatology Comment on above: Periodic fever syndr ome (HCC) (Primary Dx); Immunosuppression (HCC) Start: 11-17-2022 Telephone encounter Faustina regan MD Work Phone: Internal Medicine [place] Comment on above: Forms Start: 11-10-2022 End: 11-10-2022 ambulatory Faustina Carcamo MD Work Phone: Internal Medicine [place] Comment on above: Costochondritis (Eleanor yony Dx) Start: 11-10-2022 End: 11-10-2022 Telemedicine consultation with patient Faustina Carcamo MD Work Phone: [facility] Start: 10-18-2022 End: 10-18-2022 Office outpatient visit 15 minutes Faustina Carcamo MD Work Phone: Internal Medicine [place] Comment on above: High serum high dens ity lipoprotein (HDL) (Primary Dx); POTS (postural orthostatic tachycardia syndrome); Inappropriate sinus node tachycardia; Periodic fever syndrome (HCC) Start: 09-20-2022 ambulatory MIRIAM ORDOÑEZ Facili ty:[facility] Start: 09-20-2022 End: 09-20-2022 Office outpatient new 45 minutes Mirima Ordoñez MD Work Phone: [facility] Comment on above: Dog bite, initial en [...] [place] Start: 08-12-2022 Telephone encounter Isis sampson [facility] Work Phone: Adult Psychology Comment on above: Behavioral Health So cial Work Refill Request Start: 08-11-2022 End: 08-11-2022 Office outpatient visit 40 minutes Faustina Carcamo MD Work Phone: Internal Medicine [place] Comment on above: Obsessive-compulsive disorder, unspecified type (Primary Dx); PTSD (post-traumatic stress disorder); Recurrent major depressive disorder, in partial remission (HCC); Anxiety; POTS (postural orthostatic tachycardia syndrome); Inappropriate sinus node tachycardia; Moderate persistent reactive airway disease with acute exacerbation Start: 08-05-2022 Telephone encounter Silvia Tcuker MD Work Phone: Rheumatology Comment on above: Medication Authoriza tion Start: 08-02-2022 Refill Patjd chong MD Work Phone: Rheumatology Comment on above: Refill Request Start: 07-28-2022 End: 07-29-2022 ambulatory MASS IMMUNIZATION PROVIDER 1 [facility] Start: 07-15-2022 ambulatory Ayaan de los santos APRN.CNM Work Phone: OB/Gynecology Comment on above: Fluconazole- Differe nt Pharmacy Start: 07-14-2022 End: 07-14-2022 Patient encounter procedure Ayaan Rowley APRN.CNM Work Phone: OB/Gynecology Comment on above: Pelvic pain in femal e (Primary Dx); Screen for STD (sexually transmitted disease); Surveillance of previously prescribed intrauterine contraceptive device Start: 06-28-2022 ambulatory MARINA Gwen JOLEEN Stevens ty:[facility] Start: 06-28-2022 End: 06-28-2022 Subsequent hospital visit by physician Marina Goodrich APRN-SENIOR MORTGAGE UNDERWRITER Work Phone: [facility] [place] Comment on above: Arrived Start: 06-28-2022 ambulatory MARINA Stevens ty:[facility] Start: 06-28-2022 End: 06-28-2022 Office outpatient visit 15 minutes Marina Goodrich EDUCATION ANALYST-SENIOR MORTGAGE UNDERWRITER Work Phone: [facility] [place] Comment on above: RLQ abdominal pain ( Primary Dx) Start: 06-14-2022 Refill Patjd chong MD Work Phone: Rheumatology Start: 06-03-2022 End: 06-03-2022 ambulatory Wilbert Charles APRN.SENIOR MORTGAGE UNDERWRITER Work Phone: Internal Medicine [place] Comment on above: Acute cough (Primary Dx); Shortness of breath; Wheezing Start: 06-03-2022 End: 06-03-2022 Telemedicine consultation with patient Wilbert Charles APRN.SENIOR MORTGAGE UNDERWRITER Work Phone: [facility] Start: 05-26-2022 ambulatory SUHAIL Stevens ty:[facility] Start: 05-05-2022 ambulatory CASEY COONEY Facilit y:[facility] Start: 05-05-2022 End: 05-05-2022 Office outpatient visit 15 minutes Casey Cooney MD Work Phone: [facility] [place] Comment on above: Concussion without l oss of consciousness, subsequent encounter (Primary Dx) Start: 05-02-2022 End: 05-03-2022 ambulatory OVI HERRERA [facility] Start: 05-02-2022 End: 05-02-2022 Office outpatient new 45 minutes Ovi Herrera DO Work Phone: [facility] Comment on above: Closed head injury, initial encounter (Primary Dx); Contusion of scalp, initial encounter; Abrasion; Fall, initial encounter; Injury of right ankle, initial encounter; Sprain of right ankle, unspecified ligament, initial encounter Start: 04-21-2022 ambulatory KARTHIK Jeff MINGO Facility:[facility] Start: 04-16-2022 ambulatory SELF SELF Facility:[facility] Start: 04-16-2022 End: 04-16-2022 Office outpatient new 45 minutes Mario Vazquez MBBS Work Phone: [facility] Comment on above: Migraine without sta tus migrainosus, not intractable, unspecified migraine type (Primary Dx); IUD check up; Morbid obesity; Periodic fever syndrome Start: 04-12-2022 Refill Yair de los santos MD Work Phone: Neurology Comment on above: Refill Request Start: 04-07-2022 Telephone encounter Mikel Solorio MD Work Phone: Dermatology Comment on above: Appointment Start: 04-06-2022 Specialty Pharmacy Ramin [facility] Comment on above: SPP [...] End: 02-27-2022 Patient encounter procedure Mert Nikki PICKLE SORTER Work Phone: Psychology Comment on above: Moderate anxiety (Pr imary Dx); Moderate episode of recurrent major depressive disorder (HCC) Start: 02-25-2022 Refill Silvia chong MD Work Phone: [facility] Comment on above: Refill Request Start: 02-23-2022 Chart abstracting Mert Nikki PICKLE SORTER Work Phone: Psychology Comment on above: Consult ([facility] Pt Out reach F/U) Start: 02-21-2022 Chart abstracting Mert WALLER Work Phone: Psychology Comment on above: Consult Start: 02-19-2022 ambulatory Ramin P[facility] Start: 02-19-2022 Patient encounter procedure R[facility] Comment on above: SPP Inflammatory Con ditions - Treatment Referral (Ilaris) Start: 02-18-2022 Refill Patompong Nghia chong MD Work Phone: Rheumatology Comment on above: Refill Request Start: 01-20-2022 Telephone encounter Rosaura holbrook EDUCATION ANALYST.CNM Work Phone: OB/Gynecology Comment on above: Results Start: 01-20-2022 End: 01-20-2022 Subsequent hospital visit by physician [facility] Work Phone: Radiology Comment on above: Intrauterine contrac eptive device threads lost, initial encounter [T83.32XA] Start: 01-16-2022 Refill Genaro RICCIVPK TEACHER Work Phone: Internal Medicine [place] Comment on above: Refill Request Start: 01-13-2022 End: 01-13-2022 Patient encounter procedure Ayaan Rowley EDUCATION ANALYST.CNM Work Phone: OB/Gynecology Comment on above: Surveillance of prev iously prescribed intrauterine contraceptive device (Primary Dx); Intrauterine contraceptive device threads lost, initial encounter Start: 01-07-2022 Refill Patsangeethag Nghia chong MD Work Phone: Rheumatology Comment on above: Refill Request Start: 01-05-2022 End: 01-05-2022 Patient encounter procedure Genaro Neri APRN.VPK TEACHER Work Phone: Internal Medicine [place] Comment on above: COVID-19 (Primary Dx ); POTS (postural orthostatic tachycardia syndrome); Chest wall discomfort Start: 12-25-2021 ambulatory Faustina de los santos MD Work Phone: Internal Medicine [place] Comment on above: Covid Start: 12-04-2021 End: 12-04-2021 Patient encounter procedure Ayaan Rowley EDUCATION ANALYST.CNM Work Phone: OB/Gynecology Comment on above: Encounter for IUD in sertion (Primary Dx) Start: 11-28-2021 Refill Faustina de los santos MD Work Phone: Internal Medicine [place] Comment on above: Refill Request Start: 11-24-2021 [...] Start: 11-12-2021 Refill Ayaan de los santos EDUCATION ANALYST.CNM Work Phone: OB/Gynecology Comment on above: Refill Request Start: 10-14-2021 End: 10-14-2021 Subsequent hospital visit by physician Mri [employer] [facility] (I-Stat/1.5t) Work Phone: Radiology Comment on [...] 09-16-2021 Subsequent hospital visit by physician Xr [facility] [place] Work Phone: Radiology Comment on above: Left ankle pain, uns pecified chronicity [M25.572] Start: 08-05-2021 End: 08-05-2021 Subsequent hospital visit by physician Xr [facility] [place] Work Phone: Radiology Comment on above: Acute left ankle skip n [M25.572] Start: 01-07-2021 End: 01-07-2021 Subsequent hospital visit by physician X[facility] [place] Work Phone: Radiology Comment on above: Left wrist pain [M25 .532] Start: 07-17-2020 End: 07-17-2020 Subsequent hospital visit by physician Ct [facility] Stro (I-Stat) Work Phone: Radiology Comment on above: Chronic sinusitis, u nspecified location [J32.9] Start: 06-05-2020 End: 06-05-2020 Subsequent hospital visit by physician Xr [facility] [place] Work Phone: Radiology Comment on above: Cough [R05] Procedures Date Procedure Procedure Detail Performing Clinician Start: 03-28-2025 UA DIP,URINE HCG (POC) Fredy Elmore MD Work Phone: Start: 12-21-2024 STREP A MOLECULAR (POC) Steven Harris APRN.SENIOR MORTGAGE UNDERWRITER Work Phone: Start: 11-22-2024 STREP A MOLECULAR (POC) Kedar BOATENG Work Phone: Start: 11-19-2024 STREP A MOLECULAR (POC) Rosaura Santacruz APRN.SENIOR MORTGAGE UNDERWRITER Work Phone: Start: 10-24-2024 Radex wrist complete minimum 3 views Steven Harris APRN.SENIOR MORTGAGE UNDERWRITER Work Phone: Start: 09-25-2024 Radiologic exam ches t 2 views Rosaura Santacruz APRN.SENIOR MORTGAGE UNDERWRITER Work Phone: Start: 04-02-2024 Radiologic exam ches t 2 views Silvia Tucker MD Work Phone: Start: 03-15-2024 UA DIP,URINE HCG (POC) Karen Jones MD Work Phone: Start: 10-14-2023 Radex shoulder compl ete minimum 2 views Genaro Neri EDUCATION ANALYST.VPK TEACHER Work Phone: Start: 07-25-2023 Us pelvic nonobstetr ic real-time image complete Joe Contreras MD Work Phone: Start: 06-06-2023 Radiologic exam ches t 2 views Patsy Mobley PA-C Work Phone: Start: 02-25-2023 BACTERIAL VAGINOSIS NAAT Ayaan Harryedison EDUCATION ANALYST.CNM Work Phone: Start: 02-25-2023 Iadna trichomonas va ginalis amplified probe tech Ayaan Harryts EDUCATION ANALYST.CNM Work Phone: Start: 07-14-2022 BACTERIAL VAGINOSIS AMPLIFICATION Ayaan Harryts EDUCATION ANALYST.CNM Work Phone: Start: 07-14-2022 Iadna chlamydia trac homatis amplified probe tq Ayaan Harryedison EDUCATION ANALYST.CNM Work Phone: Start: 06-28-2022 Ct abdomen & pelvis w/contrast material Marina Goodrich EDUCATION ANALYST-SENIOR MORTGAGE UNDERWRITER Work Phone: Start: 06-28-2022 End: 06-28-2022 Blood count complete auto&auto difrntl wbc Marina Goodrich EDUCATION ANALYST-SENIOR MORTGAGE UNDERWRITER Work Phone: Start: 06-28-2022 End: 06-28-2022 Urnls dip stick/tablet rgnt auto w/o microscopy Marina Goodrich EDUCATION ANALYST-SENIOR MORTGAGE UNDERWRITER Work Phone: Start: 01-20-2022 Us transvaginal Bianca Rowley EDUCATION ANALYST.CNM Work Phone: Start: 12-04-2021 Urine test visual color cmprsn yonyfiliberto Rowley EDUCATION ANALYST.CNM Work Phone: Start: 09-16-2021 Radex ankle complete minimum 3 views Irwin Campbell MD Work Phone: Start: 08-05-2021 Radex ankle complete minimum 3 views Rosaura Santacruz EDUCATION ANALYST.SENIOR MORTGAGE UNDERWRITER Work Phone: Start: 01-07-2021 Radex shoulder compl ete minimum 2 views Shea Coates PALillieC Work Phone: Start: 10-20-2020 Microscopic observat ion [Identifier] in Cervix by Cyto stain Marina Joleen EDUCATION ANALYST-SENIOR MORTGAGE UNDERWRITER Work Phone: Start: 07-17-2020 Ct maxillofacial w/o contrast material Jerry Keating MD Work Phone: Start: 06-05-2020 Radiologic exam ches t 2 views Gonzalez [facility] Work Phone: Plan of Treatment Date Care Activity Detail Author Start: 10-31-2034 Urine microalbumin profile DTaP,Tdap,Td Vaccine (9 - Td or Tdap) [facility] Start: 03-08-2029 Tetanus vaccination [facility] Start: 03-08-2029 Urine microalbumin profile [facility] Start: 02-26-2028 HPV TESTING HPV TESTING [facility] Start: 02-26-2028 PAP TESTING PAP TESTING [facility] Start: 02-26-2028 Screening for malignant neoplasm of cervix [facility] Start: 02-21-2026 End: 02-21-2026 Patient encounter procedure 02/21/2026 2:30 PM EDT Office Visit OB/Gynecology [address] [place], [place] [id number] Michelle Rojas EDUCATION ANALYST.SENIOR MORTGAGE UNDERWRITER [address] [place] [address] Annual OB/Gynecology Comment on above: Annual Start: 02-20-2026 Screening for malignant neoplasm of cervix Cervical Cancer Screening [facility] Start: 10-20-2025 PAP TESTING PAP TESTING [facility] Start: 10-04-2025 End: 10-04-2025 Patient encounter procedure 10/04/2025 9:00 AM EST Office Visit Internal Medicine [place] [address] [place] [id number] Faustina Carcamo MD [address] [place] [address] 3 mo follow up Internal Medicine [place] Comment on above: 3 mo follow up Start: 07-15-2025 End: 07-15-2025 Patient encounter procedure 07/15/2025 10:40 AM EST Office Visit Rheumatology [address] [place] [address] Silvia Tucker MD [address] [place] [address] follow up Rheumatology Comment on above: follow up Start: 06-19-2025 End: 06-19-2025 Patient encounter procedure 06/19/2025 3:20 PM EST Office Visit Internal Medicine [place] [address] [place] [address] Faustina Carcamo MD [address] [place] [address] 3 month follow up Internal Medicine [place] Comment on above: 3 month follow up Start: 05-24-2025 End: 05-24-2025 Specialty Pharmacy 05/24/2025 8:00 AM EDT Specialty Pharmacy [facility] [address] [place] [address] Pharmacist, [facility] [address] [place] [address] REFILL Ilaris - PAx 03/26/26 - 06/04 [facility] Comment on above: REFILL Ilaris - PAx 03/26/2606/04 Start: 04-26-2025 End: 04-26-2025 Specialty Pharmacy 04/26/2025 8:00 AM EDT Specialty [facility]acy [facility] [address] [place] [address] Pharmacist, [facility] [address] [place] [address] [place] [address] REFILL Ilaris - PAx 03/26/26 - 05/07 [facility] Comment on above: REFILL Ilaris - PAx 03/26/26 - 05/07 Start: 04-15-2025 Influenza [facility] Start: 03-29-2025 End: 03-29-2025 Specialty Pharmacy [facility] Comment on above: REFILL Ilaris - PAx 03/27/25 - 04/09-p a renewal sub 03/27 REFILL Ilaris - PAx 03/26/26 - 04/09- Start: 03-28-2025 End: 03-28-2025 Patient encounter procedure 03/28/2025 11:00 AM EDT Office Visit OB/Gynecology [address] [place], [place] [id number] Fredy Elmore MD [address] [place] [address] colposcopy OB/Gynecology Comment on above: colposcopy Start: 03-27-2025 End: 03-27-2025 Specialty Pharmacy 03/27/2025 8:00 AM EDT Specialty [facility] [address] [place], [place] [id number] Pharmacist, [facility] [address] [place] [address] [place] [phone] REFILL Ilaris - PAx 03/27/25 - 04/09-pa renewal [facility] Comment on above: REFILL Ilaris - PAx 03/27/25 - 04/09-p a renewal Start: 03-20-2025 End: 03-20-2025 Specialty Pharmacy 03/20/2025 8:00 AM EDT Specialty [facility]acy [facility] [address] [place], [place] [phone] Pharmacist, [facility] [address] [place] [address] [place] [address] REFILL Ilaris - PAx 03/27/25 - 04/09-pa renewal [facility] Comment on above: REFILL Ilaris - PAx 03/27/25 - 04/09-p a renewal Start: 03-18-2025 End: 03-18-2025 Patient encounter procedure 03/18/2025 4:40 PM EDT Office Visit Internal Medicine [place] [address] [place] [address] Faustina Carcamo MD [address] [facility] [place] [address] 6 mon follow up Internal Medicine [place] Comment on above: 6 mon follow up Start: 03-01-2025 End: 03-01-2025 Specialty Pharmacy 03/01/2025 8:00 AM EDT Specialty Pharmacy [facility] [place] [facility] [place] [address] Pharmacist, [facility]ty[facility] 2 [facility] [place] [address] REFILL Ilaris - PAx 03/27/25 - 03/12 [facility] Comment on above: REFILL Ilaris - PAx 03/27/25 - 03/12 Start: 02-27-2025 End: 02-27-2025 Patient encounter procedure Allergy Comment on above: latex allergy 6 mon follow up Start: 02-26-2025 Screening for malignant neoplasm of cervix Cervical Cancer Screening [facility] Start: 02-26-2025 End: 02-26-2025 Patient encounter procedure OB/Gynecology Comment on above: 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 6 mon follow up Start: 02-13-2025 End: 02-13-2025 Patient encounter procedure 02/13/2025 2:00 PM EDT Office Visit Internal Medicine [place] [address] [place] [address] Faustina Carcamo MD [address] [place] [address] 6 mon follow up Internal Medicine [place] Comment on above: 6 mon follow up Start: 02-04-2025 End: 02-04-2025 Specialty Pharmacy 02/04/2025 8:00 AM EDT Specialty Pharmacy [facility] [address] [place] [address] Pharmacist, [facility]ty[facility] [address] [place] [address] [place] [address] REFILL Ilaris - PAx 03/27/25 - 02/12-lvm 01/31 [facility] Comment on above: REFILL Ilaris - PAx 03/27/25 - ND 02/12-l vm 01/31 Start: 01-31-2025 End: 01-31-2025 Specialty Pharmacy 01/31/2025 8:15 AM EDT Specialty Pharmacy [facility] [address] [place] [address] [place] [address] Pharmacist, [facility] [address] [place] [address] [place] [address] REFILL Ilaris - PAx 03/27/25 - 02/12 [facility] Comment on above: REFILL Ilaris - PAx 03/27/25 - 02/12 Start: 01-22-2025 End: 01-22-2025 Patient encounter procedure 01/22/2025 4:00 PM EDT Office Visit Rheumatology [address] [place] [address] Silvia Tucker MD [address] [place] [address] follow up Rheumatology Comment on above: follow up Start: 01-03-2025 End: 01-03-2025 Specialty Pharmacy 01/03/2025 8:00 AM EDT Specialty Pharmacy [facility] [address] [place] [address] [place] [address] Pharmacist, [facility] [address] [place] [address] [place] [address] REFILL Ilaris - PAx 03/27/25 - 01/15 [facility] Comment on above: REFILL Ilaris - PAx 03/27/25 - ND 01/15 Start: 01-01-2025 End: 01-01-2025 Patient encounter procedure 01/01/2025 9:05 PM EDT Office Visit Neurology [address] [place] [address] MAXWELL (obstructive sleep apnea) [G47.33]; Class 3 [...] Office Visit OB/Gynecology [address] [place] [address] Tiffanie Barrera APRN.SENIOR MORTGAGE UNDERWRITER [address] [place] [address] annual-patient states her insurance has changed and would like her annual completed sooner OB/Gynecology Comment on above: annual-patient states her insurance has changed and would like her annual completed sooner Start: 12-21-2024 End: 12-21-2024 Patient encounter procedure 12/21/2024 2:45 PM EDT Office Visit OB/Gynecology [address] [place] [address] Tiffanie Barrera APRN.SENIOR MORTGAGE UNDERWRITER [address] [place], [place] [address] annual-patient states her insurance has changed and would like her annual completed sooner OB/Gynecology Comment on above: annual-patient states her insurance has changed and would like her annual completed sooner Start: 12-19-2024 End: 12-19-2024 Patient encounter procedure 12/19/2024 3:40 PM EDT Office Visit OB/Gynecology [address] [place] [address] Qian Hillman MD [address] [place] [address] endosee/ IUD removal OB/Gynecology Comment on above: endosee/ IUD removal Start: 12-18-2024 End: 03-19-2025 C reactive protein [Mass/volume] in Serum or Plasma [facility] Comment on above: Expected: 12/18/2024, Expires: Start: 12-18-2024 End: 03-19-2025 CBC W Auto Differential panel - Blood [facility] Work Phone: Comment on above: Expected: 12/18/2024, Expires: Start: 12-18-2024 End: 03-19-2025 Erythrocyte sedimentation rate [facility] Comment on above: Expected: 12/18/2024, Expires: Start: 12-18-2024 End: 12-18-2024 Patient encounter procedure 12/18/2024 8:20 AM EDT Office Visit Rheumatology [address] [place], [place] [id number] Silvia Tucker MD [address] [place] [address] f/u earlier apt Rheumatology Comment on above: f/u earlier apt Start: 12-13-2024 End: 12-13-2024 Patient encounter procedure 12/13/2024 9:00 AM EDT Office Visit OB/Gynecology [address] [place] [address] Fredy Elmore MD [address] [place] [address] endosee/ IUD removal OB/Gynecology Comment on above: endosee/ IUD removal Start: 12-12-2024 End: 12-12-2024 Patient encounter procedure 12/12/2024 2:45 PM EDT Office Visit OB/Gynecology [address] [place] [address] Tiffanie Barrera APRN.SENIOR MORTGAGE UNDERWRITER [address] [place] [address] annual-patient states her insurance has changed and would like her annual completed sooner OB/Gynecology Comment on above: annual-patient states her insurance has changed and would like her annual completed sooner Start: 12-06-2024 End: 12-06-2024 Specialty Pharmacy 12/06/2024 8:00 AM EDT Specialty Pharmacy [facility] [place] [address] Pharmacist, [facility]tygroup [address] [place] [address] [place], [place] [id number] REFILL Ilaris - PAx 03/27/25 - 12/18 [facility] Comment on above: REFILL Ilaris - PAx 03/27/25 - 12/18 Start: 11-22-2024 End: 11-22-2024 Follow-up encounter 11/22/2024 4:40 PM EDT [facility] Rheumatology/Pulmonary [address] [place] [address] Silvia Tucker MD [address] [place] [address] follow up Rheumatology/Pulmona ry Comment on above: follow up Start: 11-22-2024 End: 11-22-2024 Patient encounter procedure 11/22/2024 4:40 PM EDT Office Visit Rheumatology/Pulmonary [address] [place] [address] Silvia Tucker MD [address] [place] [address] follow up Rheumatology/Pulmona ry Comment on above: follow up Start: 11-22-2024 End: 02-21-2025 C reactive protein [Mass/volume] in Serum or Plasma C-REACTIVE PROTEIN Lab Routine SO-JILLIAN (systemic onset juvenile idiopathic arthritis) (HCC) Periodic fever syndrome (HCC) Expected: 11/22/2024, Expires: 02/21/2025 [facility] Comment on above: Expected: 11/22/2024, Expires: Start: 11-22-2024 End: 02-21-2025 CBC W Auto Differential panel - Blood COMPLETE BLOOD COUNT AND DIFFERENTIAL Lab Routine SO-JILLIAN (systemic onset juvenile idiopathic arthritis) (HCC) Periodic fever syndrome (HCC) Expected: 11/22/2024, Expires: 02/21/2025 [facility] Comment on above: Expected: 11/22/2024, Expires: Start: 11-22-2024 End: 02-21-2025 Creatinine and Glomerular filtration rate.predicted panel - Serum, Plasma or Blood CREATININE BLD Lab Routine SO-JILLIAN (systemic onset juvenile idiopathic arthritis) (HCC) Periodic fever syndrome (HCC) Expected: 11/22/2024, Expires: 02/21/2025 [facility] Work Phone: Comment on above: Expected: 11/22/2024, Expires: Start: 11-22-2024 End: 02-21-2025 Erythrocyte sedimentation rate SEDIMENTATION RATE, WESTERGREN Lab Routine SO-JILLIAN (systemic onset juvenile idiopathic arthritis) (HCC) Periodic fever syndrome (HCC) Expected: 11/22/2024, Expires: 02/21/2025 [facility] Comment on above: Expected: 11/22/2024, Expires: Start: 11-22-2024 End: 02-21-2025 Hepatic function 2000 panel - Serum or Plasma HEPATIC FUNCTION PNL Lab Routine SO-JILLIAN (systemic onset juvenile idiopathic arthritis) (HCC) Periodic fever syndrome (HCC) Expected: 11/22/2024, Expires: 02/21/2025 [facility] Comment on above: Expected: 11/22/2024, Expires: Start: 11-22-2024 End: 02-21-2025 Heterophile Ab [Presence] in Serum by Latex agglutination MONOTEST, INFECTIOUS MONO Lab Routine Sore throat Exudative tonsillitis Expected: 11/22/2024, Expires: 02/21/2025 [facility] Work Phone: Comment on above: Expected: 11/22/2024, Expires: Start: 11-22-2024 End: 02-21-2025 Urea nitrogen [Mass/volume] in Serum or Plasma UREA NITROGEN Lab Routine SO-JILLIAN (systemic onset juvenile idiopathic arthritis) (HCC) Periodic fever syndrome (HCC) Expected: 11/22/2024, Expires: 02/21/2025 [facility] Comment on above: Expected: 11/22/2024, Expires: Start: 11-21-2024 End: 11-21-2024 Patient encounter procedure 11/21/2024 9:15 PM EDT Office Visit Neurology [address] [place], [place] [id number] MAXWELL (obstructive sleep apnea) [G47.33]; Class 3 [...] EDT Office Visit Internal Medicine [place] [address] [place], [place] [id number] Petra Lugo APRN.SENIOR MORTGAGE UNDERWRITER [address] [place], [place] [address] follow up- fatigue Internal Medicine [place] Comment on above: follow up- fatigue Start: 11-15-2024 End: 11-15-2024 Patient encounter procedure 11/15/2024 3:30 PM EDT Office Visit Allergy [address] MD [address] [place], [place] [id number] latex allergy Allergy Comment on above: latex allergy Start: 11-08-2024 End: 11-08-2024 Specialty Pharmacy 11/08/2024 8:00 AM EDT Specialty Pharmacy [facility] [address] [place], [place] [address] [place] [address] Pharmacist, Specialtygroup [address] [place] [address] [place] [id number] REFILL Ilaris - PAx 03/27/25 - 11/20 [facility] Comment on above: REFILL Ilaris - PAx 03/27/25 - 11/20 Start: 11-01-2024 End: 11-01-2024 Patient encounter procedure 11/01/2024 9:15 PM EDT Office Visit Neurology [address] [place] [address] MAXWELL (obstructive sleep apnea) [G47.33]; Class 3 [...] AM EST Specialty Pharmacy [facility] [address] [place] [address] [place] [address] Pharmacist, [facility]tygroup [address] [place] [address] [place] [address] REFILL Ilaris - PAx 03/27/25 - ND 10/23-lvm 10/16 [facility] Comment on above: REFILL Ilaris - PAx 03/27/25 - ND 10/23-l vm 10/16 Start: 10-16-2024 End: 10-16-2024 Patient encounter procedure 10/16/2024 7:00 PM EST Office Visit Internal Medicine [place] [address] [place] [address] Faustina Carcamo MD [address] [place], [place] [id number] Severe fatigue and weakness Internal Medicine [place] Comment on above: Severe fatigue and weakness Start: 10-11-2024 End: 10-11-2024 Specialty Pharmacy 10/11/2024 8:00 AM EST Specialty Pharmacy [facility] [address] [place] [address] [place] [address] Pharmacist, Specialtygroup 2 [address] [facility] [place] [address] REFILL Ilaris - PAx 03/27/25 - ND 10/23 [facility] Comment on above: REFILL Ilaris - PAx 03/27/25 - ND 10/23 Start: 09-19-2024 End: 09-19-2024 Follow-up encounter 09/19/2024 9:00 AM EST [facility] Neurology [address] [place] [address] Radha Toledo PA-C [address] [place] [address] Migraines and facial pain follow up Neurology Comment on above: Migraines and facial pain follow up Start: 09-14-2024 End: 09-14-2024 Follow-up encounter 09/14/2024 1:45 PM EST [facility] Nutrition Therapy [address] [address] Cindy Brown, RD [address] [place] [address] follow-up Nutrition Therapy Comment on above: follow-up Start: 09-13-2024 End: 09-13-2024 Specialty Pharmacy 09/13/2024 8:00 AM EST Specialty Pharmacy [facility] [address] [place] [address] Pharmacist, Specialtygroup [address] [place] [address] REFILL Ilaris - PAx 03/27/25 - 09/25 [facility] Comment on above: REFILL Ilaris - PAx 03/27/25 - 09/25 Start: 09-08-2024 End: 09-08-2024 ambulatory 09/08/2024 8:45 AM EST Results Only [facility] [address] [facility] [address] [facility] Start: 09-07-2024 End: 09-07-2024 Follow-up encounter 09/07/2024 2:30 PM EST [facility] Nutrition Therapy [address] [address] Cindy Brown, RD [address] [place] [address] Follow-up Nutrition Therapy Comment on above: Follow-up Start: 08-21-2024 End: 08-21-2024 Patient encounter procedure 08/21/2024 7:45 AM EST OT/PT/Speech Visit [facility] Outpatient Physical Therapy [address] [place] [address] Hari Eastman, PT, DPT back pain [facility] Outpatient Physical Therapy Comment on above: back pain Start: 08-20-2024 End: 08-20-2024 Follow-up encounter 08/20/2024 5:20 PM EST [facility] Internal Medicine [place] [address] [facility] [place] [address] Faustina Carcamo MD [address] [place] [address] Follow up Internal Medicine [place] Comment on above: Follow up Start: 08-17-2024 End: 08-17-2024 Follow-up encounter 08/17/2024 1:45 PM EST [facility] Nutrition Therapy [address] [address] Cruzito-Cindy Trinidad, RD [address] [place] [address] Follow-up Nutrition Therapy Comment on above: Follow-up Start: 08-17-2024 End: 08-17-2024 Specialty Pharmacy 08/17/2024 8:15 AM EST Specialty Pharmacy [facility] [address] [place] [address] Pharmacist, Specialtygroup [address] [place] [address] [place] [address] REFILL Ilaris - PAx 03/27/25 - ND 08/28 [facility] Comment on above: REFILL Ilaris - PAx 03/27/25 - ND 08/28 Start: 08-02-2024 End: 08-02-2024 Specialty Pharmacy 08/02/2024 8:00 AM EST Specialty Pharmacy [facility] [address] [place] [address] Pharmacist, Specialtygroup [address] [place] [address] [place] [address] REFILL Ilaris - PAx 03/27/25 - ND ~08/12 [facility] Comment on above: REFILL Ilaris - PAx 03/27/25 - ND ~08/12 Start: 07-30-2024 End: 07-30-2024 Follow-up encounter 07/30/2024 10:00 AM EST [facility] Rheumatology [address] [place] [address] Silvia Tucker MD [address] [address] follow up Rheumatology Comment on above: follow up Start: 07-30-2024 End: 07-30-2024 Patient encounter procedure 07/30/2024 10:00 AM EST Office Visit Rheumatology [address] [facility] [place] [address] Silvia Tucker MD [address] [place] [address] follow up Rheumatology Comment on above: follow up Start: 07-27-2024 End: 07-27-2024 [facility] 07/27/2024 3:15 PM EST [facility] Chronic Care [address] [place] [address] Cruzito-Cindy Trinidad, RD [address] [place] [address] EATING DISORDER Chronic Care Comment on above: EATING DISORDER Start: 07-23-2024 End: 10-22-2024 25-hydroxyvitamin D3 [Mass/volume] in Serum or Plasma VITAMIN D 25 HYDROXY Lab Routine SO-JILLIAN (systemic onset juvenile idiopathic arthritis) ([facility]) Expected: 07/23/2024 (Approximate), Expires: 10/22/2024 [facility] Comment on above: Expected: 07/23/2024 (Approximate), Expi res: 10/22/2024 Start: 07-23-2024 End: 10-22-2024 Alanine aminotransferase [Enzymatic activity/volume] in Serum or Plasma ALANINE AMINOTRANSFERASE / SGPT Lab Routine SO-JILLIAN (systemic onset juvenile idiopathic arthritis) (HCC) Expected: 07/23/2024 (Approximate), Expires: 10/22/2024 [facility] Work Phone: Comment on above: Expected: 07/23/2024 (Approximate), Expi res: 10/22/2024 Start: 07-23-2024 End: 10-22-2024 Aspartate aminotransferase [Enzymatic activity/volume] in Serum or Plasma ASPARTATE AMINOTRANSFERASE/SGOT Lab Routine SO-JILLIAN (systemic onset juvenile idiopathic arthritis) (HCC) Expected: 07/23/2024 (Approximate), Expires: 10/22/2024 [facility] Comment on above: Expected: 07/23/2024 (Approximate), Expi res: 10/22/2024 Start: 07-23-2024 End: 10-22-2024 C reactive protein [Mass/volume] in Serum or Plasma C-REACTIVE PROTEIN Lab Routine SO-JILLIAN (systemic onset juvenile idiopathic arthritis) ([facility]) Expected: 07/23/2024 (Approximate), Expires: 10/22/2024 [facility] Comment on above: Expected: 07/23/2024 (Approximate), Expi res: 10/22/2024 Start: 07-23-2024 End: 10-22-2024 CBC W Auto Differential panel - Blood COMPLETE BLOOD COUNT AND DIFFERENTIAL Lab Routine SO-JILLIAN (systemic onset juvenile idiopathic arthritis) ([facility]) Expected: 07/23/2024 (Approximate), Expires: 10/22/2024 [facility] Comment on above: Expected: 07/23/2024 (Approximate), Expi res: 10/22/2024 Start: 07-23-2024 End: 10-22-2024 CREATININE BLD CREATININE BLD Lab Routine SO-JILLIAN (systemic onset juvenile idiopathic arthritis) ([facility]) Expected: 07/23/2024 (Approximate), Expires: 10/22/2024 [facility] Comment on above: Expected: 07/23/2024 (Approximate), Expi res: 10/22/2024 Start: 07-23-2024 End: 10-22-2024 Erythrocyte sedimentation rate SEDIMENTATION RATE, WESTERGREN Lab Routine SO-JILLIAN (systemic onset juvenile idiopathic arthritis) ([facility]) Expected: 07/23/2024 (Approximate), Expires: 10/22/2024 [facility] Comment on above: Expected: 07/23/2024 (Approximate), Expi res: 10/22/2024 Start: 07-23-2024 End: 10-22-2024 Urea nitrogen [Mass/volume] in Serum or Plasma UREA NITROGEN Lab Routine SO-JILLIAN (systemic onset juvenile idiopathic arthritis) ([facility]) Expected: 07/23/2024 (Approximate), Expires: 10/22/2024 [facility] [facility] Comment on above: Expected: 07/23/2024 (Approximate), Expi res: 10/22/2024 Start: 07-05-2024 End: 07-05-2024 Specialty Pharmacy 07/05/2024 8:15 AM EST Specialty Pharmacy [facility] [address] [place] [phone] Pharmacist, Specialtygroup [phone] [place] [address] REFILL Ilaris - PAx 03/27/25 - ND ~07/18 - lvm 07/02 [facility] Comment on above: REFILL Ilaris - PAx 03/27/25 - ND ~07/18 - lvm 07/02 Start: 07-02-2024 End: 07-02-2024 Specialty Pharmacy 07/02/2024 8:15 AM EST Specialty Pharmacy [facility] [address] [place] [phone] Pharmacist, Specialtygroup [address] [place] [address] [place] [address] REFILL Ilaris - PAx 03/27/25 - ND ~07/18 [facility] Comment on above: REFILL Ilaris - PAx 03/27/25 - ND ~07/18 Start: 06-13-2024 End: 06-13-2024 Specialty Pharmacy 06/13/2024 8:00 AM EDT Specialty Pharmacy [facility] [address] [place] [phone] Pharmacist, Specialtygroup 2 [facility] [place] [address] REFILL Ilaris - PAx 03/27/25 - ND ~06/20? - PT wcb when avail 06/08 [facility] Comment on above: REFILL Ilaris - PAx 03/27/25 - ND ~06/20? - PT wcb when avail 06/08 Start: 06-08-2024 End: 06-08-2024 Specialty Pharmacy 06/08/2024 8:00 AM EDT Specialty Pharmacy [facility] [address] [place] [phone] Pharmacist, Specialtygroup 2 [facility] [place] [address] REFILL Ilaris - PAx 03/27/25 ~06/20? [facility] Comment on above: REFILL Ilaris - PAx 03/27/25 ~06/20? Start: 05-15-2024 End: 05-15-2024 Specialty Pharmacy 05/15/2024 8:15 AM EDT Specialty Pharmacy [facility] [address] [place] [phone] [place] [address] [facility]ist[facility] [address] [place] [address] [place] [address] REFILL Ilaris - PAx 03/27/2505/23? - RTS 05/15 [facility] Comment on above: REFILL Ilaris - PAx 03/27/2505/23? - RTS 05/15 Start: 05-14-2024 End: 05-14-2024 Nutrition therapy Nutrition Therapy Comment on above: Class 3 severe obesity due to excess janna ories with body mass index (BMI) of 50.0 to 59.9 in adult, unspecified whether serious comorbidity present (HCC) [E66.01, Z68.43] REFILL- Ilaris- PAx 03/27/2505/23? Start: 05-03-2024 End: 05-03-2024 Patient encounter procedure 05/03/2024 9:00 AM EDT Office Visit Cardiology [address] [place] [id number] Selma Zambrano, DO [address] [place] [address] 6 month follow up Cardiology Comment on above: 6 month follow up Start: 04-15-2024 Influenza vaccination Influenza Vaccine (#1) Ramon silva Start: 04-03-2024 End: 04-03-2024 Patient encounter procedure 04/03/2024 7:00 AM EDT Office Visit Internal Medicine [place] [address] [place] [address] Genaro Neri APRN.VPK TEACHER [address] [place] [address] 3-4 month follow up Internal Medicine [place] Comment on above: 3-4 month follow up Start: 04-02-2024 End: 07-02-2024 Alanine aminotransferase [Enzymatic activity/volume] in Serum or Plasma [facility] Work Phone: Comment on above: Expected: 04/02/2024 (Approximate), Expi res: 07/02/2024 Start: 04-02-2024 End: 07-02-2024 Aldolase [Enzymatic activity/volume] in Serum or Plasma [facility] Comment on above: Expected: 04/02/2024 (Approximate), Expi res: 07/02/2024 Start: 04-02-2024 End: 07-02-2024 Aspartate aminotransferase [Enzymatic activity/volume] in Serum or Plasma [facility] Comment on above: Expected: 04/02/2024 (Approximate), Expi res: 07/02/2024 Start: 04-02-2024 End: 07-02-2024 C reactive protein [Mass/volume] in Serum or Plasma [facility] Comment on above: Expected: 04/02/2024 (Approximate), Expi res: 07/02/2024 Start: 04-02-2024 End: 07-02-2024 Creatine kinase [Enzymatic activity/volume] in Serum or Plasma [facility] Comment on above: Expected: 04/02/2024 (Approximate), Expi res: 07/02/2024 Start: 04-02-2024 End: 07-02-2024 CREATININE BLD [facility] Comment on above: Expected: 04/02/2024 (Approximate), Expi res: 07/02/2024 Start: 04-02-2024 End: 07-02-2024 Erythrocyte sedimentation rate [facility] Comment on above: Expected: 04/02/2024 (Approximate), Expi res: 07/02/2024 Start: 04-02-2024 End: 07-02-2024 Urea nitrogen [Mass/volume] in Serum or Plasma [facility] Comment on above: Expected: 04/02/2024 (Approximate), Expi res: 07/02/2024 Start: 04-02-2024 End: 07-02-2024 Urinalysis complete panel - Urine [facility] Comment on above: Expected: 04/02/2024 (Approximate), Expi res: 07/02/2024 Start: 03-29-2024 End: 03-29-2024 Nursing evaluation of patient and report 03/29/2024 10:00 AM EDT Nurse Visit OB/Gynecology [address] [place] [address] Wstr, Nurse [employer] Install[employer] [facility] [address] [place] [address] HPV OB/Gynecology Comment on above: HPV Start: 03-15-2024 End: 03-15-2024 Patient encounter procedure 03/15/2024 9:20 AM EDT Office Visit OB/Gynecology [address] [place] [address] Karen Jones MD [address] [place] [address] Cervical high risk HPV (human papillomavirus) test [...] Visit OB/Gynecology [address] [place] [address] Ayaan Rowley APRN.CNM [address] [place] [address] Annual Exam OB/Gynecology Comment on above: Annual Exam Start: 02-26-2024 Screening for malignant neoplasm of cervix Cervical Cancer Screening [facility] Start: 01-02-2024 End: 01-02-2024 Patient encounter procedure 01/02/2024 4:40 PM EDT Office Visit Internal Medicine [place] [address] [facility] [place] [address] Faustina Carcamo MD [address] [place] [address] F/u and new gi issues [facility] [place] Comment on above: F/u and new gi issues Start: 01-02-2024 End: 04-02-2024 Basic metabolic 2000 panel - Serum or Plasma BASIC METABOLIC PANEL Lab Routine Encounter for long-term current use of medication Expected: 01/02/2024, Expires: 04/02/2024 [facility] Work Phone: Comment on above: Expected: 01/02/2024, Expires: Start: 12-08-2023 End: 03-08-2024 ALGN KIWI IGE ALGN KIWI IGE Lab Routine Expected: 12/08/2023, Expires: 03/08/2024 [facility] Comment on above: Expected: 12/08/2023, Expires: Start: 12-08-2023 End: 03-08-2024 ALGN LATEX IGE ALGN LATEX IGE Lab Routine Expected: 12/08/2023, Expires: 03/08/2024 [facility] Work Phone: Comment on above: Expected: 12/08/2023, Expires: Start: 12-08-2023 End: 03-08-2024 Banana IgE Ab [Units/volume] in Serum ALGN BANANA IGE Lab Routine Expected: 12/08/2023, Expires: 03/08/2024 [facility] Comment on above: Expected: 12/08/2023, Expires: Start: 10-24-2023 End: 01-23-2024 25-hydroxyvitamin D3 [Mass/volume] in Serum or Plasma VITAMIN D 25 HYDROXY Lab Routine Vitamin D deficiency Expected: 10/24/2023, Expires: 01/23/2024 [facility] Work Phone: Comment on above: Expected: 10/24/2023, Expires: Start: 10-24-2023 End: 01-23-2024 Thyroxine (T4) free [Mass/volume] in Serum or Plasma T4 FREE/FREE THYROX Lab Routine Elevated TSH Inappropriate sinus node tachycardia (HCC) Expected: 10/24/2023, Expires: 01/23/2024 [facility] Work Phone: Comment on above: Expected: 10/24/2023, Expires: 4 Start: 10-24-2023 End: 01-23-2024 Triiodothyronine (T3) Free [Mass/volume] in Serum or Plasma T3 FREE BLD Lab Routine Elevated TSH Inappropriate sinus node tachycardia (HCC) Expected: 10/24/2023, Expires: 01/23/2024 [facility] Work Phone: Comment on above: Expected: 10/24/2023, Expires: Start: 10-21-2023 PAP TESTING PAP TESTING [facility] Start: 10-21-2023 Screening for malignant neoplasm of cervix PAP SMEAR [facility] Start: 10-14-2023 End: 01-13-2024 Chlamydia trachomatis+Neisseria gonorrhoeae DNA [Presence] in Unspecified specimen by JOSSIE with probe detection [facility] Work Phone: Comment on above: Expected: 10/14/2023, Expires: Start: 10-14-2023 End: 01-13-2024 HIV 1+2 Ab [Presence] in Serum or Plasma by Immunoassay [facility] Work Phone: Comment on above: Expected: 10/14/2023, Expires: Start: 10-14-2023 End: 01-13-2024 SYPHILIS TOTAL W/REFLEX [facility] Work Phone: Comment on above: Expected: 10/14/2023, Expires: 4 Start: 10-14-2023 End: 01-13-2024 TRICHOMONAS VAGINALIS NAAT [facility] Work Phone: Comment on above: Expected: 10/14/2023, Expires: 4 Start: 08-20-2023 End: 10-20-2023 THYROID PEROXIDASE ANTIBODY BLOOD THYROID PEROXIDASE ANTIBODY BLOOD Lab Routine Elevated TSH Expected: 08/20/2023 (Approximate), Expires: 10/20/2023 [facility] Work Phone: Comment on above: Expected: 08/20/2023 (Approximate), Expi res: 10/20/2023 Start: 08-20-2023 End: 10-20-2023 Thyrotropin [Units/volume] in Serum or Plasma TSH BLD Lab Routine Elevated TSH Expected: 08/20/2023 (Approximate), Expires: 10/20/2023 [facility] Work Phone: Comment on above: Expected: 08/20/2023 (Approximate), Expi res: 10/20/2023 Start: 08-17-2023 Covid-19 Vaccine () Covid-19 Vaccine () [facility] Start: 07-22-2023 End: 07-22-2024 PELVIC US WHI PELVIC US WHI Anc Imaging Routine Pelvic pain in female Expected: 07/22/2023, Expires: 07/22/2024 [facility] Work Phone: Comment on above: Expected: 07/22/2023, Expires: 4 Start: 04-15-2023 Covid-19 Vaccine () Covid-19 Vaccine () [facility] Start: 04-15-2023 Influenza vaccination [facility] Start: 12-03-2022 End: 02-02-2023 Alanine aminotransferase [Enzymatic activity/volume] in Serum or Plasma [facility] Work Phone: Comment on above: Expected: 12/03/2022, Expires: 3 Start: 12-03-2022 End: 02-02-2023 Aspartate aminotransferase [Enzymatic activity/volume] in Serum or Plasma [facility] Work Phone: Comment on above: Expected: 12/03/2022, Expires: 3 Start: 12-03-2022 End: 02-02-2023 C reactive protein [Mass/volume] in Serum or Plasma [facility] Work Phone: Comment on above: Expected: 12/03/2022, Expires: 3 Start: 12-03-2022 End: 02-02-2023 CBC W Auto Differential panel - Blood [facility] Work Phone: Comment on above: Expected: 12/03/2022, Expires: 3 Start: 12-03-2022 End: 02-02-2023 CREATININE BLD [facility] Work Phone: Comment on above: Expected: 12/03/2022, Expires: 3 Start: 12-03-2022 End: 02-02-2023 Erythrocyte sedimentation rate [facility] Work Phone: Comment on above: Expected: 12/03/2022, Expires: 3 Start: 12-03-2022 End: 02-02-2023 Urea nitrogen [Mass/volume] in Serum or Plasma [facility] Work Phone: Comment on above: Expected: 12/03/2022, Expires: 3 Start: 2022 HPV TESTING HPV TESTING [facility] Start: 09-22-2022 COVID-19 VACCINE (6 - Pfizer risk series) COVID-19 VACCINE (6 - Pfizer risk series) [facility] Start: 09-10-2022 End: 09-10-2022 Patient encounter procedure 09/10/2022 Office Visit [employer] Karen Duval APRN-ABDIRAHMAN [address] [place] [address] [facility]s [facility] [place] Start: 04-15-2022 Influenza vaccination [facility] Start: 01-20-2022 End: 02-12-2023 Us transvaginal US FEMALE PELVIS TRANSVAG Radiology Routine Intrauterine contraceptive device threads lost, initial encounter Expected: 01/20/2022, Expires: 02/12/2023 [facility] Work Phone: Comment on above: Expected: 01/20/2022, Expires: 3 Start: 11-23-2021 COVID-19 VACCINE (5 - Booster for Pfizer series) COVID-19 VACCINE (5 - Booster for Pfizer series) [facility] Start: 10-20-2021 Screening for malignant neoplasm of cervix CERVICAL CANCER SCREENING DISCUSSION [facility] Start: 09-06-2021 COVID-19 Vaccine (3 - Booster for Pfizer series) COVID-19 Vaccine (3 - Booster for Pfizer series) [facility] Start: 05-15-2015 PNEUMOCOCCAL (2 - PCV) PNEUMOCOCCAL (2 - PCV) [facility] Start: 05-15-2015 Pneumococcal vaccination [facility] Start: 2013 Screening for malignant neoplasm of cervix CERVICAL CANCER SCREENING DISCUSSION [facility] Start: 2011 SHINGRIX VACCINE (1 of 2) SHINGRIX VACCINE (1 of 2) [facility] Start: 2010 Hepatitis C screening Hepatitis C Screening [facility] Start: 2007 HIV screening [facility] Start: 2004 Depression screening using PHQ-9 (Patient Health Questionnaire 9) score Depression Screening (PHQ-2/9) [facility] Start: 1995 History and physical examination, annual for health maintenance Wellness Visit [facility] Start: 1995 PREVENTATIVE HEALTH VISIT PREVENTATIVE HEALTH VISIT [facility] Start: 1992 Hepatitis C antibody, confirmatory test HEPATITIS C VIRUS SCREENING [facility] Start: 1992 Hepatitis C screening HEPATITIS C VIRUS SCREENING [facility] Start: 1992 Screening for malignant neoplasm of cervix Pap Smear [facility] End: 07-05-2024 Alanine aminotransferase [Enzymatic activity/volume] in Serum or Plasma ALT/SGPT Lab Routine SO-JILLIAN (systemic onset juvenile idiopathic arthritis) (HCC) Periodic fever syndrome (HCC) Every 3 months for 4 Occurrences starting 07/06/2023 until 07/05/2024 [facility] Work Phone: Comment on above: Every 3 months for 4 Occurrences startin g 07/06/2023 until 07/05/2024 End: 07-05-2024 Aspartate aminotransferase [Enzymatic activity/volume] in Serum or Plasma AST/SGOT BLD Lab Routine SO-JILLIAN (systemic onset juvenile idiopathic arthritis) (HCC) Periodic fever syndrome (HCC) Every 3 months for 4 Occurrences starting 07/06/2023 until 07/05/2024 [facility] Work Phone: Comment on above: Every 3 months for 4 Occurrences startin g 07/06/2023 until 07/05/2024 Bacteria identified in Urine by Culture URINE CULTURE Microbiology STAT RLQ abdominal pain Ordered: 06/28/2022 [facility] Comment on above: Ordered: 06/28/2022 Bacteria identified in Wound by Culture BACTERIAL CULTURE AND GRAM STAIN, ABSCESS AND WOUND (AEROBIC CULTURE) Microbiology Routine Hidradenitis suppurativa Recurrent boils Vaginal wall cyst 04/26/2025 4:38 PM EDT [facility] Work Phone: End: 04-05-2024 C reactive protein [Mass/volume] in Serum or Plasma C-REACTIVE PROTEIN (CRP) Lab Routine SO-JILLIAN (systemic onset juvenile idiopathic arthritis) (HCC) Once per month for 3 Occurrences starting 04/06/2023 until 04/05/2024 [facility] Work Phone: Comment on above: Once per month for 3 Occurrences startin g 04/06/2023 until 04/05/2024 End: 07-05-2024 C reactive protein [Mass/volume] in Serum or Plasma C-REACTIVE PROTEIN (CRP) Lab Routine SO-JILLIAN (systemic onset juvenile idiopathic arthritis) (HCC) Periodic fever syndrome (HCC) Every 3 months for 4 Occurrences starting 07/06/2023 until 07/05/2024 [facility] Work Phone: Comment on above: Every 3 months for 4 Occurrences startin g 07/06/2023 until 07/05/2024 End: 04-05-2024 CBC W Auto Differential panel - Blood CBC + DIFF Lab Routine SO-JILLIAN (systemic onset juvenile idiopathic arthritis) (HCC) Once per month for 3 Occurrences starting 04/06/2023 until 04/05/2024 [facility] Work Phone: Comment on above: Once per month for 3 Occurrences startin g 04/06/2023 until 04/05/2024 End: 07-05-2024 CBC W Auto Differential panel - Blood CBC + DIFF Lab Routine SO-JILLIAN (systemic onset juvenile idiopathic arthritis) (HCC) Periodic fever syndrome (HCC) Every 3 months for 4 Occurrences starting 07/06/2023 until 07/05/2024 [facility] Work Phone: Comment on above: Every 3 months for 4 Occurrences startin g 07/06/2023 until 07/05/2024 Chlamydia trachomatis+Neisseria gonorrhoeae DNA [Presence] in Unspecified specimen by JOSSIE with probe detection GONORRHEA/CHLAMYDIA NAAT Lab Routine Screening for STD (sexually transmitted disease) 02/25/2023 4:49 PM EDT [facility] Work Phone: Chlamydia trachomatis+Neisseria gonorrhoeae DNA [Presence] in Unspecified specimen by JOSSIE with probe detection GONORRHEA/CHLAMYDIA NAAT Lab Routine Screen for STD (sexually transmitted disease) 02/20/2025 3:52 PM EDT [facility] COLPOSCOPY COLPOSCOPY Proce dures Routine Cervical high risk HPV (human papillomavirus) test positive Ordered: 03/12/2024 [facility] Work Phone: Comment on above: Ordered: 03/12/2024 COLPOSCOPY COLPOSCOPY Proce dures Routine Low grade squamous intraepithelial lesion on cytologic smear of vagina (LGSIL) Ordered: 02/27/2025 [facility] Work Phone: Comment on above: Ordered: 02/27/2025 COVID & INFLUENZA A/ B & RSV PCR, ROUTINE COVID & INFLUENZA A/B & RSV PCR, ROUTINE Microbiology Routine Acute cough URI, acute Ordered: 09/25/2024 [facility] Work Phone: Comment on above: Ordered: 09/25/2024 End: 04-05-2024 CREATININE BLD CREATININE BLD Lab Routine SO-JILLIAN (systemic onset juvenile idiopathic arthritis) (HCC) Once per month for 3 Occurrences starting 04/06/2023 until 04/05/2024 [facility] Work Phone: Comment on above: Once per month for 3 Occurrences startin g 04/06/2023 until 04/05/2024 End: 07-05-2024 CREATININE BLD CREATININE BLD Lab Routine SO-JILLIAN (systemic onset juvenile idiopathic arthritis) (HCC) Periodic fever syndrome (HCC) Every 3 months for 4 Occurrences starting 07/06/2023 until 07/05/2024 [facility] Work Phone: Comment on above: Every 3 months for 4 Occurrences startin g 07/06/2023 until 07/05/2024 End: 05-20-2024 ECG COMPLETE ECG COMPLETE ECG Routine Abnormal EKG POTS (postural orthostatic tachycardia syndrome) 1 Occurrences starting 05/20/2023 until 05/20/2024 [facility] Work Phone: Comment on above: 1 Occurrences starting 05/20/2023 until 05/20/2024 End: 04-05-2024 Erythrocyte sedimentation rate SED RATE WESTERGREN Lab Routine SO-JILLIAN (systemic onset juvenile idiopathic arthritis) (HCC) Once per month for 3 Occurrences starting 04/06/2023 until 04/05/2024 [facility] Work Phone: Comment on above: Once per month for 3 Occurrences startin g 04/06/2023 until 04/05/2024 End: 07-05-2024 Erythrocyte sedimentation rate SED RATE WESTERGREN Lab Routine SO-JILLIAN (systemic onset juvenile idiopathic arthritis) (HCC) Periodic fever syndrome (HCC) Every 3 months for 4 Occurrences starting 07/06/2023 until 07/05/2024 [facility] Work Phone: Comment on above: Every 3 months for 4 Occurrences startin g 07/06/2023 until 07/05/2024 End: 04-05-2024 Hepatic function 2000 panel - Serum or Plasma HEPATIC FUNCTION PNL Lab Routine SO-JILLIAN (systemic onset juvenile idiopathic arthritis) (HCC) Once per month for 3 Occurrences starting 04/06/2023 until 04/05/2024 [facility] Work Phone: Comment on above: Once per month for 3 Occurrences startin g 04/06/2023 until 04/05/2024 Influenza virus A an d B RNA and SARS-CoV-2 (COVID-19) N gene panel - Respiratory specimen by JOSSIE with probe detection COVID & INFLUENZA A/B NAAT, ROUTINE Microbiology Routine Fever, unspecified fever cause 06/06/2023 8:54 AM EDT [facility] Work Phone: Insertion intrauteri ne device iud INSERT INTRAUTERINE DEVICE Procedures Routine Encounter for IUD insertion Ordered: 12/04/2021 [facility] Work Phone: Comment on above: Ordered: 12/04/2021 End: 04-05-2024 Lipid 1996 panel - Serum or Plasma LIPID PANEL BASIC Lab Routine SO-JILLIAN (systemic onset juvenile idiopathic arthritis) (HCC) Every 6 months for 2 Occurrences starting 04/06/2023 until 04/05/2024 [facility] Work Phone: Comment on above: Every 6 months for 2 Occurrences startin g 04/06/2023 until 04/05/2024 End: 10-22-2022 Mri any jt lower extrem w/o contrast matrl MRI ANKLE WO IVCON LT Radiology Routine Chronic pain of left ankle 1 Occurrences starting 09/22/2021 until 10/22/2022 [facility] Work Phone: Comment on above: 1 Occurrences starting 09/22/2021 until 10/22/2022 PAP TEST PAP TEST Lab Rou subhash Encounter for gynecological examination (general) (routine) without abnormal findings 02/25/2023 4:49 PM EDT [facility] Work Phone: PAP TEST PAP TEST Lab Rou subhash Encounter for gynecological examination (general) (routine) without abnormal findings Screening for cervical cancer Encounter for screening for human papillomavirus (HPV) Cervical high risk human papillomavirus (HPV) DNA test positive 02/27/2024 3:56 PM EDT [facility] PAP TEST PAP TEST Lab Rou subhash Encounter for gynecological examination (general) (routine) without abnormal findings Screening for cervical cancer Encounter for screening for human papillomavirus (HPV) Ordered: 02/20/2025 [facility] Work Phone: Comment on above: Ordered: 02/20/2025 Removal intrauterine device iud REMOVE INTRAUTERINE DEVICE Procedures Routine Pelvic pain in female Ordered: 02/27/2024 [facility] Work Phone: Comment on above: Ordered: 02/27/2024 SURGICAL PATHOLOGY SURGICAL PATH OLOGY Lab Routine Cervical high risk HPV (human papillomavirus) test positive 03/15/2024 10:31 AM EDT [facility] Work Phone: Tissue Pathology bio psy report SURGICAL PATHOLOGY Lab Routine Low grade squamous intraepithelial lesion on cytologic smear of vagina (LGSIL) 03/28/2025 11:31 AM EDT [facility] Work Phone: End: 04-05-2024 Urea nitrogen [Mass/volume] in Serum or Plasma BUN BLOOD Lab Routine SO-JILLIAN (systemic onset juvenile idiopathic arthritis) ([facility]) Once per month for 3 Occurrences starting 04/06/2023 until 04/05/2024 [facility] Work Phone: Comment on above: Once per month for 3 Occurrences startin g 04/06/2023 until 04/05/2024 End: 07-05-2024 Urea nitrogen [Mass/volume] in Serum or Plasma BUN BLOOD Lab Routine SO-JILLIAN (systemic onset juvenile idiopathic arthritis) ([facility]) Periodic fever syndrome (HCC) Every 3 months for 4 Occurrences starting 07/06/2023 until 07/05/2024 [facility] Work Phone: Comment on above: Every 3 months for 4 Occurrences startin g 07/06/2023 until 07/05/2024 End: 01-17-2026 XR HIP BILATERAL 5V PEL/AP/LAT EACH HIP XR HIP BILATERAL 5V PEL/AP/LAT EACH HIP Radiology Routine SO-JILLIAN (systemic onset juvenile idiopathic arthritis) ([facility]) 1 Occurrences starting 12/18/2024 until 01/17/2026 [facility] Comment on above: 1 Occurrences starting 12/18/2024 until 01/17/2026 End: 01-17-2026 XR Sacroiliac Joint Views XR SACROILIAC JOINTS 2V AP PELVIS/FERGUESON Radiology Routine SO-JILLIAN (systemic onset juvenile idiopathic arthritis) (HCC) 1 Occurrences starting 12/18/2024 until 01/17/2026 [facility] Comment on above: 1 Occurrences starting 12/18/2024 until 01/17/2026 End: 11-12-2024 XR Shoulder - left 2 Views XR SHOULDER LIMITED 2V AP/TRUE AP LEFT Radiology Routine Chronic left shoulder pain 1 Occurrences starting 10/14/2023 until 11/12/2024 [facility] Work Phone: Comment on above: 1 Occurrences starting 10/14/2023 until 11/12/2024 XR Shoulder - left 2 Views XR SHOULDER LIMITED 2V AP/TRUE AP LEFT Radiology Routine Chronic left shoulder pain 10/14/2023 12:10 PM EST [facility] Work Phone: XR Shoulder - right 2 Views XR SHOULDER [id number] AP/TRUE AP RIGHT Radiology Routine Chronic left shoulder pain 10/14/2023 11:48 AM EST [facility] Work Phone: End: 04-10-2026 XR Thoracic spine AP and Lateral XR THORACIC LIMITED 2V AP/LAT Radiology Routine Upper back strain, initial encounter 1 Occurrences starting 03/11/2025 until 04/10/2026 [facility] Work Phone: Comment on above: 1 Occurrences starting 03/11/2025 until 04/10/2026 XR Thoracic spine AP and Lateral XR THORACIC LIMITED 2V AP/LAT Radiology Routine Upper back strain, initial encounter 03/11/2025 3:44 PM EDT [facility] Immunizations Immunization Date Immunization Notes Care Provider Cailin medina 10-31-2024 tetanus toxoid, reduced diphtheria toxoid, and acellular pertussis vaccine, adsorbed Nicholas Dorantes EDUCATION ANALYST.SENIOR MORTGAGE UNDERWRITER Work Phone: [facility] 04-21-2024 Seasonal trivalent influenza vaccine, adjuvanted, preservative free Silvia Tucker MD Work Phone: [facility] 04-21-2024 influenza virus vaccine, unspecified formulation Michelle Rojas EDUCATION ANALYST.SENIOR MORTGAGE UNDERWRITER Work Phone: [facility] 03-29-2024 Human Papillomavirus 9-valent vaccine Ayaan Rowley EDUCATION ANALYST.CNM Work Phone: [facility] 03-15-2024 HPV, unspecified formulation Karen Jones MD Work Phone: [facility] 05-24-2023 influenza, injectabl e, quadrivalent, contains preservative Karen Jones MD Work Phone: [facility] 05-24-2023 influenza virus vaccine, unspecified formulation Isela Srteet MD Work Phone: [facility] 07-20-2022 influenza, injectabl e, quadrivalent, preservative free Isis Melo [facility] Work Phone: [facility] 07-20-2022 influenza virus vaccine, unspecified formulation Faustina Carcamo MD Work Phone: [facility] 04-06-2021 COVID-19 vaccine, ag e 12+ yr (PFIZER-BIONTMetrixLab - PURPLE TOP) Ayaan Rowley EDUCATION ANALYST.CNM Work Phone: [facility] Work Phone: 04-06-2021 influenza, injectabl e, quadrivalent, preservative free Isis Melo MANAGER LAW Work Phone: [facility] 04-06-2021 influenza, seasonal, injectable Ayaan Rowley EDUCATION ANALYST.CNM Work Phone: [facility] Work Phone: 04-06-2021 influenza virus vaccine, unspecified formulation Mario Vazquez MB Work Phone: [facility] 11-01-2020 COVID-19 vaccine, ag e 12+ yr (PFIZER-BIONTECH - PURPLE TOP) Ayaan Harryts EDUCATION ANALYST.CNM Work Phone: [facility] Work Phone: 04-25-2020 influenza, injectabl e, quadrivalent, preservative free Ayaan Plotts EDUCATION ANALYST.CNM Work Phone: [facility] 06-20-2019 influenza, injectabl e, quadrivalent, contains preservative Ayaan Plotts EDUCATION ANALYST.CNM Work Phone: [facility] 03-08-2019 tetanus toxoid, reduced diphtheria toxoid, and acellular pertussis vaccine, adsorbed Ayaan Plotts EDUCATION ANALYST.CNM Work Phone: [facility] 06-19-2018 influenza, injectabl e, quadrivalent, contains preservative Ayaan Plotts EDUCATION ANALYST.CNM Work Phone: [facility] 04-27-2017 influenza, injectabl e, quadrivalent, contains preservative Ayaan Plotts EDUCATION ANALYST.CNM Work Phone: [facility] 06-25-2016 influenza, injectabl e, quadrivalent, contains preservative Ayaan Plotts EDUCATION ANALYST.CNM Work Phone: [facility] 05-15-2014 influenza, seasonal, injectable Ayaan Plotts EDUCATION ANALYST.CNM Work Phone: [facility] 05-15-2014 pneumococcal polysaccharide vaccine, 23 valent Ayaan Harryts EDUCATION ANALYST.CNM Work Phone: [facility] 06-19-2013 influenza virus vaccine, unspecified formulation Ayaan Harryts EDUCATION ANALYST.CNM Work Phone: [facility] 04-15-2011 meningococcal polysaccharide (groups A, C, Y and W-135) diphtheria toxoid conjugate vaccine (MCV4P) Ayaan Plotts EDUCATION ANALYST.CNM Work Phone: [facility] 03-17-2011 hepatitis A vaccine, pediatric/adolescent dosage, 2 dose schedule Mario LARRY Work Phone: [facility] 03-17-2011 hepatitis A vaccine, unspecified formulation Ayaan Plotts EDUCATION ANALYST.CNM Work Phone: [facility] Work Phone: 03-17-2011 tetanus toxoid, reduced diphtheria toxoid, and acellular pertussis vaccine, adsorbed Ayaan Plotts EDUCATION ANALYST.CNM Work Phone: [facility] Work Phone: 03-17-2011 tuberculin skin test ; purified protein derivative solution, intradermal Silvia Tucker MD Work Phone: [facility] 01-14-2010 human papilloma viru s vaccine, quadrivalent Ayaan Plotts EDUCATION ANALYST.CNM Work Phone: [facility] Work Phone: 06-14-2007 human papilloma viru s vaccine, quadrivalent Ayaan Plotts EDUCATION ANALYST.CNM Work Phone: [facility] Work Phone: 05-09-2007 human papilloma viru s vaccine, quadrivalent Ayaan Plotts EDUCATION ANALYST.CNM Work Phone: [facility] Work Phone: 04-04-2006 hepatitis B vaccine, pediatric or pediatric/adolescent dosage Ayaan Plotts EDUCATION ANALYST.CNM Work Phone: [facility] Work Phone: 05-31-2005 hepatitis B vaccine, pediatric or pediatric/adolescent dosage Ayaan Plotts EDUCATION ANALYST.CNM Work Phone: [facility] Work Phone: 04-02-2005 hepatitis B vaccine, pediatric or pediatric/adolescent dosage Ayaan Plotts EDUCATION ANALYST.CNM Work Phone: [facility] Work Phone: 04-02-2005 meningococcal polysaccharide (groups A, C, Y and W-135) diphtheria toxoid conjugate vaccine (MCV4P) [facility] Work Phone: [facility] 04-02-2005 Meningococcal, MCV4, unspecified conjugate formulation(groups A, C, Y and W-135) Ayaan Rowley EDUCATION ANALYST.CNM Work Phone: [facility] Work Phone: 04-02-2005 tetanus and diphther ia toxoids, adsorbed, preservative free, for adult use (2 Lf of tetanus toxoid and 2 Lf of diphtheria toxoid) Ayaan Rowley EDUCATION ANALYST.CNM Work Phone: [facility] Work Phone: 04-02-2005 tetanus and diphther ia toxoids, not adsorbed, for adult use [facility] Work Phone: [facility] 03-17-1998 diphtheria, tetanus toxoids and acellular pertussis vaccine Ayaan Rowley EDUCATION ANALYST.CNM Work Phone: [facility] Work Phone: 03-17-1998 measles, mumps and rubella virus vaccine Ayaan Harryts EDUCATION ANALYST.CNM Work Phone: [facility] Work Phone: 03-17-1998 trivalent poliovirus vaccine, live, oral Ayaan Rowley EDUCATION ANALYST.CNM Work Phone: [facility] Work Phone: 10-23-1994 diphtheria, tetanus toxoids and acellular pertussis vaccine Ayaan Harryts EDUCATION ANALYST.CNM Work Phone: [facility] Work Phone: 10-23-1994 haemophilus influenz ae type b vaccine, HbOC conjugate Ayaan Harryts EDUCATION ANALYST.CNM Work Phone: [facility] Work Phone: 10-23-1994 trivalent poliovirus vaccine, live, oral Ayaan Rowley EDUCATION ANALYST.CNM Work Phone: [facility] Work Phone: 04-06-1994 Chicken Pox (disease) Jane Rowley EDUCATION ANALYST.CNM Work Phone: [facility] Work Phone: 04-06-1994 poliovirus vaccine, unspecified formulation Mario Vazquez DMITRY Work Phone: [facility] 04-06-1994 varicella virus vaccine Ovi Herrera DO Work Phone: [facility] 02-02-1994 measles, mumps and rubella virus vaccine Ayaan Kamrynedison EDUCATION ANALYST.CNM Work Phone: [facility] Work Phone: 04-15-1993 diphtheria, tetanus toxoids and pertussis vaccine Ayaan Rowley EDUCATION ANALYST.CNM Work Phone: [facility] Work Phone: 04-15-1993 haemophilus influenz ae type b vaccine, HbOC conjugate Ayaan Rowley EDUCATION ANALYST.CNM Work Phone: [facility] Work Phone: 02-17-1993 diphtheria, tetanus toxoids and pertussis vaccine Ayaan Kamrynedison EDUCATION ANALYST.CNM Work Phone: [facility] Work Phone: 02-17-1993 haemophilus influenz ae type b vaccine, HbOC conjugate Ayaan Rowley EDUCATION ANALYST.CNM Work Phone: [facility] Work Phone: 02-17-1993 trivalent poliovirus vaccine, live, oral Ayaan Rowley EDUCATION ANALYST.CNM Work Phone: [facility] Work Phone: 1992 diphtheria, tetanus toxoids and pertussis vaccine Ayaan Rowley EDUCATION ANALYST.CNM Work Phone: [facility] Work Phone: 1992 haemophilus influenz ae type b vaccine, HbOC conjugate Ayaan Plotts EDUCATION ANALYST.CNM Work Phone: [facility] Work Phone: 1992 trivalent poliovirus vaccine, live, oral Ayaan Rowley APRN.CNM Work Phone: [facility] Work Phone: Payers Date Payer Category Payer Private Health Insurance [id number] 2024 Self-pay 2024 Unknown [id number] 2024 Medicaid [id number] 2023 Unknown [id number] 2022 Private Health Insurance [id number] 2022 Private Health Insurance 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 2022 Unknown [id number] 2022 Unknown [id number] 2018 Medicaid [employer] [id number] 2018-Present [phone] [address] [place] [address] Medicaid [id number] 2018 Medicaid [id number] 1992 Unknown [id number]. 903 1992 Unknown [id number]. 903 1992 Unknown [id number]. 594 1992 Unknown [id number]. 594 1992 Unknown [id number] [id number]. 594 1992 Unknown [id number]. 594 1992 Unknown [id number] [id number]. 594 1992 Unknown [id number]. 594 1992 Unknown [id number] [id number]. 594 Unknown [id number]. 462 Unknown [id number] [id number]. 462 Unknown [id number] [id number]. 462 Unknown [id number] [id number]. 462 Unknown [id number]. 462 Unknown [id number]. 462 Unknown [id number] 462 Social History Date Type Detail Facility Start: 01-24-2015 End: 07-14-2022 Tobacco smoking status NHIS Never smoked tobacco [facility] Start: 01-24-2015 End: 07-14-2022 Tobacco use and exposure Smokeless tobacco non-user [facility] Start: 10-29-2021 End: 04-26-2025 Alcohol intake Current drinker of alcohol (finding) [facility] Start: 09-16-2021 End: 08-10-2022 History SDOH Alcohol Frequency 2 [facility] Start: 09-16-2021 End: 08-10-2022 History SDOH Alcohol Std Drinks 1 [facility] Start: 10-20-2020 History SDOH Alcohol Comment occiasionally [facility] Start: 09-16-2021 History SDOH Social Connections Phone 5 [facility] Start: 09-16-2021 End: 08-10-2022 History SDOH Social Connections Living 7 [facility] Start: 09-16-2021 End: 08-10-2022 History SDOH Stress 3 [facility] Start: 01-08-2020 Education 17 [facility] Start: 08-01-2012 Tobacco Comment father and mother smoke inside [facility] Start: 1990 Sex Assigned At Female [facility] Start: 11-03-2021 End: 11-13-2021 Exposure to SARS-CoV-2 (event) Yes [facility] Work Phone: Start: 05-06-2020 End: 06-28-2022 Exposure to SARS-CoV-2 (event) Not sure [facility] Start: 1990 Sex Assigned At Not on file [facility] Start: 07-14-2022 Tobacco Comment Father and Mother smoked in home. Stopped 03/2013. [facility] Start: 08-10-2022 History SDOH Stress 4 [facility] Start: 09-10-2022 End: 09-20-2022 Exposure to SARS-CoV-2 (event) Unable to assess [facility] Start: 08-09-2022 End: 02-21-2023 History of Social function [facility] Start: 08-09-2022 End: 02-21-2023 Social connection and isolation panel [facility] Are you now , , , , never or living with a partner? Never [facility] How often to you hav e a drink containing alcohol? Monthly or less [facility] How many standard drinks containing alcohol do you have on a typical day? 1 or 2 [facility] How often do you hav e 6 or more drinks on 1 occasion? Never [facility] How hard is it for y ou to pay for the very basics like food, housing, medical care, and heating Somewhat hard [facility] Start: 07-16-2012 Adult Depression Screening Assessment 2 [facility] Do you feel stress - tense, restless, nervous, or anxious, or unable to sleep at night because your mind is troubled all the time - these days [OSQ] Rather much [facility] (I/We) worried wheth er (my/our) food would run out before (I/we) got money to buy more. Never true [facility] In the past 12 month s, was there a time when you were not able to pay the mortgage or rent on time? No [facility] Start: 11-17-2018 Gender identity Identifies as female gender (finding) [facility] Start: 03-17-2021 Sexual orientation Bisexual (finding) [facility] How often to you hav e a drink containing alcohol? 2-3 time sa week [facility] Do you feel stress - tense, restless, nervous, or anxious, or unable to sleep at night because your mind is troubled all the time - these days [OSQ] To some extent [facility] How often do you hav e 6 or more drinks on 1 occasion? Less than monthly [facility] (I/We) worried wheth er (my/our) food would run out before (I/we) got money to buy more. Sometimes true [facility] Start: 09-17-2013 Alcohol Comment About one drink every 2 months [facility] Are you now , , , , never or living with a partner? Living with partner [facility] Do you feel stress - tense, restless, nervous, or anxious, or unable to sleep at night because your mind is troubled all the time - these days [OSQ] Very much [facility] Medical Equipment Procedure Code Equipment Code Equipment Origin al Text Equipment Identifier Dates [id number], [id number], [id number], [id number], [id number] Start: 04-22-2021 End: 12-08-2023 Comment on above: 1 Syringe every 4 we eks. USE DIRECTED WITH SHAUNARIS Functional Status Date Assessment Result Facility 11-13-2024 Total score [AUDIT-C] 1 11/14/19 25 8:07 PM EDT User, Arline [facility] 11-13-2024 Within the last year , have you been humiliated or emotionally abused in other ways by your partner or ex-partner? No 11/13/2024 8:07 PM EDT User, [email or web address] No [facility] 11-13-2024 Within the last year , have you been afraid of your partner or ex-partner? No 11/13/2024 8:07 PM EDT User, Celsohart No [facility] 11-13-2024 Within the last year , have you been raped or forced to have any kind of sexual activity by your partner or ex-partner? No 11/13/2024 8:07 PM EDT User, Celsohart No [facility] 11-13-2024 Within the last year , have you been kicked, hit, slapped, or otherwise physically hurt by your partner or ex-partner? No 11/13/2024 8:07 PM EDT User, Celsohart No [facility] 11-13-2024 How often to you hav e a drink containing alcohol? Monthly or less 11/13/2024 8:07 PM EDT User, Mychart Monthly or less [facility] 11-13-[address] inks containing alcohol do you have on a typical day? 1 or 2 11/13/2024 8:07 PM EDT User, [email or web address] 1 or 2 [facility] 11-13-2024 How often do you hav e 6 or more drinks on 1 occasion? Never 11/13/2024 8:07 PM EDT User, Celsohart Never [facility] 03-15-2015 Are you deaf, or do you have serious difficulty hearing No 03/15/2015 9:06 AM Lissette Guevara MA No [facility] 03-15-2015 Are you blind, or do you have serious difficulty seeing, even when wearing glasses No 03/15/2015 9:06 AM Lissette Guevara MA No [facility] 03-15-2015 Do you have serious difficulty walking or climbing stairs No 03/15/2015 9:06 AM Lissette Guevara MA No [facility] 03-15-2015 Do you have difficul ty dressing or bathing No 03/15/2015 9:06 AM Lissette Guevara MA No [facility] 03-15-2015 Because of a physica l, mental, or emotional condition, do you have difficulty doing errands alone such as visiting a physician's office or shopping No 03/15/2015 9:06 AM EDT Lissette Barnes MA No [facility] Mental Status Date Assessment Result Facility 03-15-2015 Because of a physica l, mental, or emotional condition, do you have serious difficulty concentrating, remembering, or making decisions No 03/15/2015 9:06 AM EDT Lissette Barnes MA No [facility] Clinical Notes 06-05-2020 to 06-21-2025 Telephone Encounter - Janett Heard RN - 04/29/2025 4:52 PM EDTTelephone Encounter - Janett Heard RN - 04/29/2025 4:52 PM EDTTelephone Encounter - Maile Stacy RN - 04/29/2025 4:27 PM EDT Note Date & Type Note Facility 06-21-2025 Note [facility] 06-18-2025 Note [facility] 06-04-2025 Note [facility] 05-24-2025 Note [facility] 04-29-2025 Telephone encounter Note Patient notified and voiced understanding. Janett Heard RN [facility] 04-29-2025 Miscellaneous Notes Patient notified and voiced understanding. Janett Heard RN Rx for Diflucan sent. Ayaan Rowley APRN.CNM Patient notified. Asking if she can get diflucan too. Frequently gets yeast infections with antibiotic in the past. Maile Stacy RN Images from the original note were not included. Ayaan Rowley APRN.CNM to [facility] Ob-Tutoring Clinician Pool (Selected Message) 04/29/25 4:19 PM Result Note Please notify patient of positive wound culture result. Rx for Keflex 500 mg PO 4 times daily x 5 days sent to pharmacy. Ayaan Rowley APRN.CNM BACTERIAL CULTURE AND GRAM STAIN, ABSCESS AND WOUND (AEROBIC CULTURE) documented in this encounter [facility] 04-29-2025 Telephone encounter Note Rx for Diflucan sent. Ayaan Rowley APRN.CNM [facility] 04-29-2025 Telephone encounter Note Patient notified. Asking if she can get diflucan too. Frequently gets yeast infections with antibiotic in the past. Maile Stacy RN [facility] 04-29-2025 Telephone encounter Note Images from the original note were not included. Ayaan Rowley APRN.CNM to [facility] Ob-Tutoring Clinician Pool (Selected Message) 04/29/25 4:19 PM Result Note Please notify patient of positive wound culture result. Rx for Keflex 500 mg PO 4 times daily x 5 days sent to pharmacy. Ayaan Rowley APRN.CNM BACTERIAL CULTURE AND GRAM STAIN, ABSCESS AND WOUND (AEROBIC CULTURE) [facility] 04-26-2025 Note [facility] 04-26-2025 History of Present illness Narrative Liliam Thompson is a 34 year old female who presents for Incision and drainage of wound/abscess HPI: Noticed bump last night, states it popped last night when she wiped. States its a pea size, she states that she able to move it around. States she believes it to be a boil due to having them on other parts of her body. Pain level 3/10. Patient noticed right labial bump yesterday when wiping after using bathroom. Discharge: Yes Fever/chills: Yes- stated low grade 99-100 degree F Sexually active: No History of STDS: None Patient concerns for STD exposure: No. EXAM: BP 130/70 Wt 267 lb (121.1kg) LMP 12/31/2021 GENERAL: pleasant, female in no apparent distress PELVIC: right side small vaginal bump/cyst noted to inner vagina/ upper labia that is fluid filled and red. Tender with touch ASSESSMENT/PLAN: 1. Vaginal wall cyst - ICD9: 623.8, ICD10: N89.8 - Recommended I &D today and send for culture - Patient agreed and will sign consent Ayaan Rowley APRN.CNM UNIVERSAL PROTOCOL / SAFETY CHECKLIST Procedure to be Performed: Incision and drainage of wound/abscess Sign In: A Moment of CARE was completed. Appropriate PPE (Personal Protective Equipment) worn by all providers involved with the procedure. Special equipment utilized . Patient/Surrogate Stated/Verified: Patient name, Date of , Relevant allergies, and The intended procedure Time Out: Relevant labs, photos, and/or imaging studies have been reviewed. Intended patient and procedure match the source document(s) (e.g. consent, H&P, associated studies [imaging, pathology]) match the intended patient and procedure. Consent obtained and matches the intended procedure. Yes. Correct side/site is not applicable. Medications required for this procedure are verified. Fire risk assessed and is not applicable. Implants: are not applicable. Lidocaine gel placed on vaginal cyst. Small pinpoint incision made and white purulent fluid came from cyst. Collected fluid and sent for culture. No current bleeding . Patient tolerated procedure well. Sign Out: Specimens are all correctly labeled and sent. All instruments, equipment, possible retained foreign bodies are accounted for. Yes. The post-procedure plan of care has been communicated to the patient or surrogate. Discussed with patient will notify her of results of culture and any treatment if needed. Ayaan Rowley APRN.CNM . documented in this encounter [facility] 04-26-2025 History of Present illness Narrative [facility] [...] been reviewed prior to dispensing the medication. Market Development Director Assessment Patient confirmed: Yes Med/dose confirmed: Yes Supplies needed: No supplies needed Missed doses: No Estimated days supply on hand: 0 Next cycle/dose due: 05/07/25 Copay amount: 0 Payment confirmed: Yes Delivery method: FedEx Signature required: Waived on patient request Delivery Address Options from [facility]: [facility] Home Delivery Address Calculated: [address], [place] [address] Delivery date: 05/03/25 Questions or concerns for the pharmacist?: No Did you have any side effects believed to be related to this medication, that resulted in hospitalization?: No Current Outpatient Medications on File Prior to Visit Medication Sig Syringe with Needle, Disp, (BD LUER-RAJI SYRINGE) 3 mL 18 x 1 1/2 Use to draw up ilaris dose Syringe with Needle, Disp, (BD TUBERCULIN SYRINGE) 1 mL 27 x 1/2 Use to inject subcutaneous Ilaris dose LORazepam (ATIVAN) 1 mg tablet Take 1 mg by mouth once daily as needed. ondansetron orally disintegrating (ZOFRAN ODT) 4 mg disintegrating tablet Take by mouth. TAKE 1 TABLET BY MOUTH EVERY 8 HOURS NEEDED FOR NAUSEA canakinumab, PF, (ILARIS, PF,) 150 mg/mL injection Inject 150mg (1 vial) subcutaneously every [address] (PROTONIX) 40 mg tablet Take 1 tablet by mouth once daily. 30 minutes before eating. cholestyramine light 4 gram powder Take 2-4 g by mouth two times a day with meals. Mix with 60-180 mL of water or other noncarbonated liquid, highly fluid soup, applesauce or crushed pineapple before ingesting Cholecalciferol, Vitamin D3, 125 mcg (5,000 unit) cap Take 1 capsule by mouth once daily. FLUoxetine (PROZAC) 20 mg capsule Take 1 capsule by mouth once daily. fluvoxaMINE (LUVOX) 100 mg tablet Take 2 tablets by mouth once daily. promethazine (PHENERGAN) 25 mg tablet Take 1-2 tablets by mouth every 6 hours as needed for nausea/vomiting. naratriptan (AMERGE) 2.5 mg tablet Take 1 tablet by mouth as needed for migraine headache (see administration instructions). 2.5 mg at onset of headache, may repeat in 4 hours if needed EPINEPHrine (EPIPEN 2-ISIDRO) 0.3 mg/0.3 mL auto-injector Inject 0.3 mL intramuscularly as needed. For allergic reaction.Seek emergent medical care immediately after use.Disp:1 2-pakw/maintenance trainer albuterol HFA (PROAIR HFA) 90 mcg/actuation [...] Adjustable. Use as directed for gait instability metFORMIN ER (GLUCOPHAGE XR) 500 mg 24 hr tablet Take 1 tablet by mouth daily with breakfast. (Patient not taking: Reported on 03/28/2025) baclofen 10 mg tablet Take 1 tablet by mouth three times a day as needed. atenolol (TENORMIN) 25 mg tablet Take 1 tablet by mouth two times a day as needed. propranolol (INDERAL) 10 mg tablet Take 1-2 [...] facility-administered medications on file prior to visit. [facility] SPECIALTY CLINICAL ASSESSMENT - INFLAMMATORY CONDITIONS V6: Assessment to use: Refill Date of influenza vaccination reminder: 04/24/2024 Date of most recent vaccination assessment: 04/24/2024 Treatment Plan Information: Ilaris Inject 150mg (1 vial) subcutaneously every 4 weeks. 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 Tx Plan Start Date: No information available Estimated Start Date Info: Established on therapy Est. Estimated Treatment Duration: Until loss of efficacy and/or no longer tolerated. Quang Lindsey CPhT [facility], Inflammatory P: [phone] F: [phone] documented in this encounter [facility] 04-26-2025 Note [facility] 04-26-2025 Telephone encounter Note Requesting refill for Ilaris supplies. Ordered pended in this encounter to be sent to [facility]. Requested Prescriptions Pending Prescriptions Disp Refills Syringe with Needle, Disp, (BD LUER-RAJI SYRINGE) 3 mL 18 x 1 1/2 1 each 12 Sig: Use to draw up ilaris dose Syringe with Needle, Disp, (BD TUBERCULIN SYRINGE) 1 mL 27 x 1/2 1 each 12 Sig: Use to inject subcutaneous Ilaris dose Tracey Rollins PharmD, [facility] Clinical Pharmacist-Biologics [facility] Specialty Pharmacy P: [phone] F: [phone] Pool: P [facility] Pool #: [id number] [facility] 04-26-2025 Miscellaneous Notes Requesting refill for Ilaris supplies. Ordered pended in this encounter to be sent to [facility]. Requested Prescriptions Pending Prescriptions Disp Refills Syringe with Needle, Disp, (BD LUER-RAJI SYRINGE) 3 mL 18 x 1 1/2 1 each 12 Sig: Use to draw up ilaris dose Syringe with Needle, Disp, (BD TUBERCULIN SYRINGE) 1 mL 27 x 1/2 1 each 12 Sig: Use to inject subcutaneous Ilaris dose Tracey Rollins PharmD, [facility] Clinical Pharmacist-Biologics [facility] Specialty Pharmacy P: [phone] F: [phone] Pool: P [facility] Pool #: [id number] documented in this encounter [facility] 04-03-2025 Telephone encounter Note Agree with advice [facility] Work Phone: 04-03-2025 Miscellaneous Notes Agree with advice Patient called in. Had a colposcopy done 03/28/[address] Elmore. States she called into the nurse integration architect that evening stating she developed a fever of 101. States has not had a fever since then. Bleeding had tapered since procedure and then she had heavier bright red bleeding yesterday evening . States she is changing a pad every 3-4 hours. Cramping -rates a 4 on pain scale. Has been taking Advil with some relief. Had clotting last night. Denies any abnormal/foul odor from [place] area. Has IUD in pace-does not have menses with IUD. Discussed with patient signs to watch -persistent or increased bleeding, development of a fever, development of any foul smelling discharge or PRN problems. Patient comfortable with advice. Please review in absence of Dr Elmore and I told her we would call with any further advice. documented in this encounter [facility] 04-03-2025 Telephone encounter Note Patient called in. Had a colposcopy done 03/28/[address] Elmore. States she called into the nurse integration architect that evening stating she developed a fever of 101. States has not had a fever since then. Bleeding had tapered since procedure and then she had heavier bright red bleeding yesterday evening . States she is changing a pad every 3-4 hours. Cramping -rates a 4 on pain scale. Has been taking Advil with some relief. Had clotting last night. Denies any abnormal/foul odor from [place] area. Has IUD in pace-does not have menses with IUD. Discussed with patient signs to watch -persistent or increased bleeding, development of a fever, development of any foul smelling discharge or PRN problems. Patient comfortable with advice. Please review in absence of Dr Elmore and I told her we would call with any further advice. [facility] 03-29-2025 History of Present illness Narrative [facility] [...] been reviewed prior to dispensing the medication. Market Development Director Assessment Patient confirmed: Yes Med/dose confirmed: Yes Supplies needed: No supplies needed Missed doses: No Estimated days supply on hand: 0 Next cycle/dose due: 04/09/25 Copay amount: 0 Payment confirmed: Yes Delivery method: FedEx Delivery address: [address] [place] [address] Delivery date: 04/05/25 Questions or concerns for the pharmacist?: No Did you have any side effects believed to be related to this medication, that resulted in hospitalization?: No Current Outpatient Medications on File Prior to Visit Medication Sig LORazepam (ATIVAN) 1 mg tablet Take 1 mg by mouth once daily as needed. ondansetron orally disintegrating (ZOFRAN ODT) 4 mg disintegrating tablet Take by mouth. TAKE 1 TABLET BY MOUTH EVERY 8 HOURS NEEDED FOR NAUSEA canakinumab, PF, (ILARIS, PF,) 150 mg/mL injection Inject 150mg (1 vial) subcutaneously every [address] (PROTONIX) 40 mg tablet Take 1 tablet by mouth once daily. 30 minutes before eating. cholestyramine light 4 gram powder Take 2-4 g by mouth two times a day with meals. Mix with 60-180 mL of water or other noncarbonated liquid, highly fluid soup, applesauce or crushed pineapple before ingesting Cholecalciferol, Vitamin D3, 125 mcg (5,000 unit) cap Take 1 capsule by mouth once daily. FLUoxetine (PROZAC) 20 mg capsule Take 1 capsule by mouth once daily. fluvoxaMINE (LUVOX) 100 mg tablet Take 2 tablets by mouth once daily. promethazine (PHENERGAN) 25 mg tablet Take 1-2 tablets by mouth every 6 hours as needed for nausea/vomiting. naratriptan (AMERGE) 2.5 mg tablet Take 1 tablet by mouth as needed for migraine headache (see administration instructions). 2.5 mg at onset of headache, may repeat in 4 hours if needed EPINEPHrine (EPIPEN 2-ISIDRO) 0.3 mg/0.3 mL auto-injector Inject 0.3 mL intramuscularly as needed. For allergic reaction.Seek emergent medical care immediately after use.Disp:1 2-pakw/maintenance trainer albuterol HFA (PROAIR HFA) 90 mcg/actuation [...] 1/2 Use to inject subcutaneous Ilaris dose metFORMIN ER (GLUCOPHAGE XR) 500 mg 24 hr tablet Take 1 tablet by mouth daily with breakfast. (Patient not taking: Reported on 03/28/2025) baclofen 10 mg tablet Take 1 tablet by mouth three times a day as needed. atenolol (TENORMIN) 25 mg tablet Take 1 tablet by mouth two times a day as needed. propranolol (INDERAL) 10 mg tablet Take 1-2 [...] facility-administered medications on file prior to visit. [facility] RX SPECIALTY CLINICAL ASSESSMENT - INFLAMMATORY CONDITIONS V6: Assessment to use: Refill Date of influenza vaccination reminder: 04/24/2024 Date of most recent vaccination assessment: 04/24/2024 Treatment Plan Information: Ilaris Inject 150mg (1 vial) subcutaneously every 4 weeks. Est. Tx Plan Start Date: No information available Estimated Start Date Info: Established on therapy Est. Estimated Treatment Duration: Until lack of efficacy Quang Lindsey CPhT [facility], [facility] P: [phone] F: [phone] documented in this encounter [facility] 03-29-2025 Note [facility] 03-28-2025 Telephone encounter Note Patient calling regarding had a procedure today and now is having a fever and other complications. . Conferenced to [facility] induction furnace operator, [facility] Horse Exerciser, to speak with provider integration architect for Dr. Samantha Elmore. GO TO THE EMERGENCY ROOM OR CALL 911 IF: * You develop any new symptoms * Your condition worsens * You are concerned or anxious about your condition for any other reason. If you have any questions, you can call Nurse big machine consultant back. [facility] 03-28-2025 Miscellaneous Notes Patient calling regarding had a procedure today and now is having a fever and other complications. . Conferenced to [facility] induction furnace operator, [facility] Horse Exerciser, to speak with provider integration architect for Dr. Samantha Elmore. GO TO THE EMERGENCY ROOM OR CALL 911 IF: * You develop any new symptoms * Your condition worsens * You are concerned or anxious about your condition for any other reason. If you have any questions, you can call Nurse big machine consultant back. documented in this encounter [facility] 03-28-2025 Instructions Shellie Bentley MA - 03/28/2025 11:07 AM EDT YOUR RECOVERY It may take [...] your doctor's office. documented in this encounter [facility] 03-28-2025 Note [facility] 03-28-2025 History of Present illness Narrative Bina is a 34 year old Female who presents today for a colposcopy. The patient's last pap smear was LGSIL from February 2025. Patient has a history of abnormal pap: Yes. The patient has had prior treatment: none. test: negative UNIVERSAL PROTOCOL / SAFETY CHECKLIST Procedure to be Performed: colposcopy with biopsy Sign In: A Moment of CARE was completed. Appropriate PPE (Personal Protective Equipment) worn by all providers involved with the procedure. Special equipment not required. Patient/Surrogate Stated/Verified: Patient name, Date of , Relevant allergies, and The intended procedure Time Out: Relevant labs, photos, and/or imaging studies have been reviewed. Intended patient and procedure match the source document(s) (e.g. consent, H&P, associated studies [imaging, pathology]) match the intended patient and procedure. Consent obtained and matches the intended procedure. Yes. Correct side/site is not applicable. Medications required for this procedure are verified. Fire risk assessed and is not applicable. Implants: are not applicable. Sign Out: Specimens are all correctly labeled and sent. All instruments, equipment, possible retained foreign bodies are accounted for. Yes. The post-procedure plan of care has been communicated to the patient or surrogate. PROCEDURE: EXTERNAL GENITALIA: Normal in appearance without lesions VAGINA: Normal in appearance without lesions CERVIX: Speculum placed in vagina and excellent visualization of cervix achieved. Cervix swabbed x 3 with 3% acetic acid solution. Cervix grossly normal. Squamocolumnar junction visualized. acetowhite changes noted . BIOPSY: Done at 3:00, 6:00, 9:00, and 12:00 ECC: done HEMOSTASIS: Obtained with silver nitrate and pressure Procedure Summary: Patient tolerated procedure well and colposcopy was adequate. ASSESSMENT: HPV effect PLAN: Specimens labeled and sent to Pathology. Will notify patient of results in 1-2 weeks. Post-procedure instructions reviewed and written material given to the patient. If indicated, lesion by colpo is amenable to office LEEP as lesion is small. Fredy Elmore MD documented in this encounter [facility] 03-27-2025 History of Present illness Narrative Prior authorization renewal for Ilaris was initiated and is pending review. Plan Name: [place] Plan Agent: OLGA BOATENG Johnson: [id number] Timeline: Standard Quang Lindsey CPhT [facility], Inflammatory P: [phone] F: [phone] documented in this encounter [facility] 03-27-2025 Note [facility] 03-27-2025 Note [facility] 03-18-2025 Telephone encounter Note Liliam Thompson will be due for a refill soon. Date of Liliam Thompson's last Rheumatology office visit: 12/18/24 Next appointment date: 07/15/25 Last labs: 12/18/24 Last TB test: TB Result Date Value Ref Range Status 04/24/2021 Negative Negative Final Pended Orders ID Status Description Pended By When Reason [id number] Pended canakinumab, PF, (ILARIS, PF,) 150 mg/mL injection Quang Lindsey 03/18/25 1727 If above therapy is being continued, please sign this order request to send refill(s) via eRx to [facility]. Thank you. Canakinumab (Ilaris) - IL-1 Inhibitor CBC with differential, C-reactive protein (CRP), serum amyloid A protein A (ROSANA); signs of infection; latent TB screening (prior to initiating therapy). Eye examinations for patients with CAPS (Jeremyi 2012) and symptoms of disease for patients with CAPS or SJIA (Caodci 2013; Krystle 2009; Scott 2012) were also monitored in clinical trials. CBC with diff: WBC Date Value Ref Range Status 12/18/2024 5.95 3.70 - 11.00 k/uL Final RBC Date Value Ref Range Status 12/18/2024 4.43 3.90 - 5.20 m/uL Final Hemoglobin Date Value Ref Range Status 12/18/2024 13.3 11.5 - 15.5 g/dL Final Hematocrit Date Value Ref Range Status 12/18/2024 40.6 36.0 - 46.0 % Final MCV Date Value Ref Range Status 12/18/2024 91.6 80.0 - 100.0 fL Final MCH Date Value Ref Range Status 12/18/2024 30.0 26.0 - 34.0 pg Final MCHC Date Value Ref Range Status 12/18/2024 32.8 30.5 - 36.0 g/dL Final RDW-CV Date Value Ref Range Status 12/18/2024 12.9 11.5 - 15.0 % Final Platelet Count Date Value Ref Range Status 12/18/2024 354 150 - 400 k/uL Final MPV Date Value Ref Range Status 12/18/2024 10.0 9.0 - 12.7 fL Final Neutrophils % Date Value Ref Range Status 12/18/2024 51.7 % Final Lymphocytes % Date Value Ref Range Status 12/18/2024 36.8 % Final Monocytes % Date Value Ref Range Status 12/18/2024 8.9 % Final Eosinophils % Date Value Ref Range Status 12/18/2024 1.8 % Final Basophils % Date Value Ref Range Status 12/18/2024 0.5 % Final Abs Neut Date Value Ref Range Status 12/18/2024 3.07 1.45 - 7.50 k/uL Final Abs Leslie Date Value Ref Range Status 12/18/2024 0.53 <0.87 k/uL Final Abs Eosin Date Value Ref Range Status 12/18/2024 0.11 <0.46 k/uL Final Abs Baso Date Value Ref Range Status 12/18/2024 0.03 <0.11 k/uL Final CRP: CRP Date Value Ref Range Status 12/18/2024 <0.3 <0.9 mg/dL Final ROSANA: No results found for: ROSANA TB: TB Result Date Value Ref Range Status 04/24/2021 Negative Negative Final Current Outpatient Medications on File Prior to Visit Medication Sig pantoprazole DR (PROTONIX) 40 mg tablet Take 1 tablet by mouth once daily. 30 minutes before eating. predniSONE (DELTASONE) 20 mg tablet Take 2 tablets by mouth once daily for 3 days, THEN 1.5 tablets once daily for 3 days, THEN 1 tablet once daily for 3 days. cholestyramine light 4 gram powder Take 2-4 g by mouth two times a day with meals. Mix with 60-180 mL of water or other noncarbonated liquid, highly fluid soup, applesauce or crushed pineapple before ingesting Cholecalciferol, Vitamin D3, 125 mcg (5,000 unit) cap Take 1 capsule by mouth once daily. FLUoxetine (PROZAC) 20 mg capsule Take 1 capsule by mouth once daily. fluvoxaMINE (LUVOX) 100 mg tablet Take 2 tablets by mouth once daily. promethazine (PHENERGAN) 25 mg tablet Take 1-2 tablets by mouth every 6 hours as needed for nausea/vomiting. naratriptan (AMERGE) 2.5 mg tablet Take 1 tablet by mouth as needed for migraine headache (see administration instructions). 2.5 mg at onset of headache, may repeat in 4 hours if needed EPINEPHrine (EPIPEN 2-ISIDRO) 0.3 mg/0.3 mL auto-injector Inject 0.3 mL intramuscularly as needed. For allergic reaction.Seek emergent medical care immediately after use.Disp:1 2-pakw/maintenance trainer albuterol HFA (PROAIR HFA) 90 mcg/actuation [...] 150mg (1 vial) subcutaneously every 4 weeks. metFORMIN ER (GLUCOPHAGE XR) 500 mg 24 hr tablet Take 1 tablet by mouth daily with breakfast. baclofen 10 mg tablet Take 1 tablet by mouth three times a day as needed. atenolol (TENORMIN) 25 mg tablet Take 1 tablet by mouth two times a day as needed. propranolol (INDERAL) 10 mg tablet Take 1-2 [...] facility-administered medications on file prior to visit. Future Appointments Date Time Provider Department Center 03/27/2025 8:00 AM Pharmacist, Specialtygroup 2 [facility] None 03/28/2025 11:00 AM Fredy Elmore MD [facility] [place] 06/19/2025 3:20 PM [facility] 07/15/2025 10:40 AM Silvia Tucker MD [facility] 10/04/2025 9:00 AM Faustina Carcamo MD [facility] 02/21/2026 2:30 PM Michelle Rojas APRN.SENIOR MORTGAGE UNDERWRITER SONDRA Rollins RPh Clinical Pharmacist - Biologics: Allergy, Immunology, and Inflammatory [facility] ; Pool: P [facility] Pool #: [id number] [facility] 03-18-2025 Miscellaneous Notes Liliam Thompson will be due for a refill soon. Date of Liliam Thompson's last Rheumatology office visit: 12/18/24 Next appointment date: 07/15/25 Last labs: 12/18/24 Last TB test: TB Result Date Value Ref Range Status 04/24/2021 Negative Negative Final Pended Orders ID Status Description Pended By When Reason [id number] Pended canakinumab, PF, (ILARIS, PF,) 150 mg/mL injection ChanduyeseniaQuang 03/18/25 [id number] If above therapy is being continued, please sign this order request to send refill(s) via eRx to [facility]. Thank you. Canakinumab (Ilaris) - IL-1 Inhibitor CBC with differential, C-reactive protein (CRP), serum amyloid A protein A (ROSANA); signs of infection; latent TB screening (prior to initiating therapy). Eye examinations for patients with CAPS (Caodci 2013) and symptoms of disease for patients with CAPS or SJIA (Caodci 2013; Krystle 2009; Scott 2012) were also monitored in clinical trials. CBC with diff: WBC Date Value Ref Range Status 12/18/2024 5.95 3.70 - 11.00 k/uL Final RBC Date Value Ref Range Status 12/18/2024 4.43 3.90 - 5.20 m/uL Final Hemoglobin Date Value Ref Range Status 12/18/2024 13.3 11.5 - 15.5 g/dL Final Hematocrit Date Value Ref Range Status 12/18/2024 40.6 36.0 - 46.0 % Final MCV Date Value Ref Range Status 12/18/2024 91.6 80.0 - 100.0 fL Final MCH Date Value Ref Range Status 12/18/2024 30.0 26.0 - 34.0 pg Final MCHC Date Value Ref Range Status 12/18/2024 32.8 30.5 - 36.0 g/dL Final RDW-CV Date Value Ref Range Status 12/18/2024 12.9 11.5 - 15.0 % Final Platelet Count Date Value Ref Range Status 12/18/2024 354 150 - 400 k/uL Final MPV Date Value Ref Range Status 12/18/2024 10.0 9.0 - 12.7 fL Final Neutrophils % Date Value Ref Range Status 12/18/2024 51.7 % Final Lymphocytes % Date Value Ref Range Status 12/18/2024 36.8 % Final Monocytes % Date Value Ref Range Status 12/18/2024 8.9 % Final Eosinophils % Date Value Ref Range Status 12/18/2024 1.8 % Final Basophils % Date Value Ref Range Status 12/18/2024 0.5 % Final Abs Neut Date Value Ref Range Status 12/18/2024 3.07 1.45 - 7.50 k/uL Final Abs Leslie Date Value Ref Range Status 12/18/2024 0.53 <0.87 k/uL Final Abs Eosin Date Value Ref Range Status 12/18/2024 0.11 <0.46 k/uL Final Abs Baso Date Value Ref Range Status 12/18/2024 0.03 <0.11 k/uL Final CRP: CRP Date Value Ref Range Status 12/18/2024 <0.3 <0.9 mg/dL Final ROSANA: No results found for: ROSANA TB: TB Result Date Value Ref Range Status 04/24/2021 Negative Negative Final Current Outpatient Medications on File Prior to Visit Medication Sig pantoprazole DR (PROTONIX) 40 mg tablet Take 1 tablet by mouth once daily. 30 minutes before eating. predniSONE (DELTASONE) 20 mg tablet Take 2 tablets by mouth once daily for 3 days, THEN 1.5 tablets once daily for 3 days, THEN 1 tablet once daily for 3 days. cholestyramine light 4 gram powder Take 2-4 g by mouth two times a day with meals. Mix with 60-180 mL of water or other noncarbonated liquid, highly fluid soup, applesauce or crushed pineapple before ingesting Cholecalciferol, Vitamin D3, 125 mcg (5,000 unit) cap Take 1 capsule by mouth once daily. FLUoxetine (PROZAC) 20 mg capsule Take 1 capsule by mouth once daily. fluvoxaMINE (LUVOX) 100 mg tablet Take 2 tablets by mouth once daily. promethazine (PHENERGAN) 25 mg tablet Take 1-2 tablets by mouth every 6 hours as needed for nausea/vomiting. naratriptan (AMERGE) 2.5 mg tablet Take 1 tablet by mouth as needed for migraine headache (see administration instructions). 2.5 mg at onset of headache, may repeat in 4 hours if needed EPINEPHrine (EPIPEN 2-ISIDRO) 0.3 mg/0.3 mL auto-injector Inject 0.3 mL intramuscularly as needed. For allergic reaction.Seek emergent medical care immediately after use.Disp:1 2-pakw/maintenance trainer albuterol HFA (PROAIR HFA) 90 mcg/actuation [...] 150mg (1 vial) subcutaneously every 4 weeks. metFORMIN ER (GLUCOPHAGE XR) 500 mg 24 hr tablet Take 1 tablet by mouth daily with breakfast. baclofen 10 mg tablet Take 1 tablet by mouth three times a day as needed. atenolol (TENORMIN) 25 mg tablet Take 1 tablet by mouth two times a day as needed. propranolol (INDERAL) 10 mg tablet Take 1-2 [...] facility-administered medications on file prior to visit. Future Appointments Date Time Provider Department Center 03/27/2025 8:00 AM Pharmacist, Specialty[facility] 2 [facility] None 03/28/2025 11:00 AM Fredy Elmore MD [facility] 06/19/2025 3:20 PM [facility]ust[facility]cam[facility] 07/15/2025 10:40 AM Silvia Tucker MD [facility] 10/04/2025 9:00 AM Faustina Carcamo MD [facility] 02/21/2026 2:30 PM Michelle Rojas APRN.SENIOR MORTGAGE UNDERWRITER [facility] Rollins RPh Clinical Pharmacist - Biologics: Allergy, Immunology, and Inflammatory [facility] ; Pool: P [facility] Pool #: [id number] documented in this encounter [facility] 03-11-2025 Note [facility] 03-11-2025 History of Present illness Narrative [facility] Luis Enrique Thompson is a 34 year old female. Patient presents with: Back Pain: Upper back pain x 1 day Back Pain Review of Systems Musculoskeletal: Positive for back pain. Objective BP 128/100 Pulse (!) 144 Temp 36.8 C (98.3 F) Resp 21 Wt 120.8 kg (266 lb 5.1 oz) LMP 12/31/2021 SpO2 97% BMI 50.94 kg/m PAST MEDICAL HISTORY Diagnosis Date Anxiety Angeli Constantino Asthmatic bronchitis (HCC) recurrent episodes since pneumonia fall and winter of 2011 Depression Angeli Constantino Epigastric abdominal pain Fibromyalgia Dr. 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 Mix with 60-180 mL of water or other noncarbonated liquid, highly fluid soup, applesauce or crushed pineapple before ingesting Cholecalciferol, Vitamin D3, 125 mcg (5,000 unit) cap Take 1 capsule by mouth once daily. FLUoxetine (PROZAC) 20 mg capsule Take 1 capsule by mouth once daily. fluvoxaMINE (LUVOX) 100 mg tablet Take 2 tablets by mouth once daily. promethazine (PHENERGAN) 25 mg tablet Take 1-2 tablets by mouth every 6 hours as needed for nausea/vomiting. naratriptan (AMERGE) 2.5 mg tablet Take 1 tablet by mouth as needed for migraine headache (see administration instructions). 2.5 mg at onset of headache, may repeat in 4 hours if needed EPINEPHrine (EPIPEN 2-ISIDRO) 0.3 mg/0.3 mL auto-injector Inject 0.3 mL intramuscularly as needed. For allergic reaction.Seek emergent medical care immediately after use.Disp:1 2-pakw/maintenance trainer albuterol HFA (PROAIR HFA) 90 mcg/actuation [...] 150mg (1 vial) subcutaneously every 4 weeks. metFORMIN ER (GLUCOPHAGE XR) 500 mg 24 hr tablet Take 1 tablet by mouth daily with breakfast. baclofen 10 mg tablet Take 1 tablet by mouth three times a day as needed. atenolol (TENORMIN) 25 mg tablet Take 1 tablet by mouth two times a day as needed. propranolol (INDERAL) 10 mg tablet Take 1-2 [...] use: Yes Comment: occiasionally Drug use: No Physical Exam Constitutional: General: She is not in acute distress. Appearance: Normal appearance. She is normal weight. She is not ill-appearing or toxic-appearing. HENT: Head: Normocephalic and atraumatic. Cardiovascular: Rate and Rhythm: Normal rate and regular rhythm. Pulses: Normal pulses. Heart sounds: Normal heart sounds. Pulmonary: Effort: Pulmonary effort is normal. Breath sounds: Normal breath sounds. Musculoskeletal: Cervical back: Tenderness present. No swelling, edema, deformity, erythema, lacerations, rigidity, torticollis or bony tenderness. Pain with movement present. Thoracic back: Spasms and tenderness present. No swelling, edema or bony tenderness. Normal range of motion. No scoliosis. Lumbar back: Normal. No edema or signs of trauma. Normal range of motion. Negative right straight leg raise test and negative left straight leg raise test. Comments: Pain elicited with neck flexion and rotation; pain elicited with forward flexion at the waist and returning to upright position. Lymphadenopathy: Cervical: No cervical adenopathy. Neurological: Mental Status: She is alert. { 1. Upper back strain, initial encounter (S29.012A) 2. Upper back pain (M54.9) - Acute upper back pain with musculoskeletal features; no history of trauma or injury. - X-ray showed no evidence of fracture or significant abnormality. - Differential diagnosis included pleurisy and pericarditis due to history of Still's disease, but clinical presentation and exam findings more consistent with musculoskeletal etiology. - Start prednisone: 40 mg daily x3 days, then 30 mg daily x3 days, then 20 mg daily x3 days. - Start Protonix 40 mg daily for 30 days for GI protection. - Discussed rationale for musculoskeletal diagnosis and steroid use; patient expressed understanding and agreement with plan. and Recording using Osmopure software for draft documentation of the visit was discussed with the patient/authorized billing representative; all questions welcomed and answered. Patient/authorized billing representative agreed to proceed Disposition The patient was discharged. OTC Medications were advised: Tylenol and Ibuprofen documented in this encounter [facility] 03-11-2025 History of Present illness Narrative Radiology Service Progress Note PATIENT NAME: Liliam Thompson DATE OF SERVICE: March 11, 2025 TIME: 3:38 PM PATIENT IDENTITY VERIFICATION COMPLETED USING TWO [...] PATIENT PRESENTS WITH AN IMPLANTABLE OR ATTACHED CONDENSER CLEANER: No RADIOLOGY DEPARTMENT: General X-ray: Exam(s) Completed: Spine X-Ray(s): Thoracic PERIPHERAL IV DATA: Not applicable SIGNED BY: RT Elan(R) March 11, 2025 3:38 PM documented in this encounter [facility] 03-11-2025 Note [facility] 03-01-2025 History of Present illness Narrative [facility] [...] been reviewed prior to dispensing the medication. Market Development Director Assessment Patient confirmed: Yes Med/dose confirmed: Yes Supplies needed: No supplies needed Missed doses: No Estimated days supply on hand: 0 Next cycle/dose due: 03/12/25 Copay amount: 0 Payment confirmed: Yes Delivery method: FedEx Signature required: Waived on patient request Delivery address: [address] [place] [address] [address] [place] [address] Delivery date: 03/05/25 Questions or concerns for the pharmacist?: No Did you have any side effects believed to be related to this medication, that resulted in hospitalization?: No Current Outpatient Medications on File Prior to Visit Medication Sig cholestyramine light 4 gram powder Take 2-4 g by mouth two times a day with meals. Mix with 60-180 mL of water or other noncarbonated liquid, highly fluid soup, applesauce or crushed pineapple before ingesting Cholecalciferol, Vitamin D3, 125 mcg (5,000 unit) cap Take 1 capsule by mouth once daily. FLUoxetine (PROZAC) 20 mg capsule Take 1 capsule by mouth once daily. fluvoxaMINE (LUVOX) 100 mg tablet Take 2 tablets by mouth once daily. promethazine (PHENERGAN) 25 mg tablet Take 1-2 tablets by mouth every 6 hours as needed for nausea/vomiting. naratriptan (AMERGE) 2.5 mg tablet Take 1 tablet by mouth as needed for migraine headache (see administration instructions). 2.5 mg at onset of headache, may repeat in 4 hours if needed EPINEPHrine (EPIPEN 2-ISIDRO) 0.3 mg/0.3 mL auto-injector Inject 0.3 mL intramuscularly as needed. For allergic reaction.Seek emergent medical care immediately after use.Disp:1 2-pakw/maintenance trainer albuterol HFA (PROAIR HFA) 90 mcg/actuation [...] 150mg (1 vial) subcutaneously every 4 weeks. metFORMIN ER (GLUCOPHAGE XR) 500 mg 24 hr tablet Take 1 tablet by mouth daily with breakfast. baclofen 10 mg tablet Take 1 tablet by mouth three times a day as needed. atenolol (TENORMIN) 25 mg tablet Take 1 tablet by mouth two times a day as needed. propranolol (INDERAL) 10 mg tablet Take 1-2 [...] facility-administered medications on file prior to visit. [facility] SPECIALTY CLINICAL ASSESSMENT - INFLAMMATORY CONDITIONS V6: Assessment to use: Refill Date of influenza vaccination reminder: 04/24/2024 Date of most recent vaccination assessment: 04/24/2024 Treatment Plan Information: Ilaris Inject 150mg (1 vial) subcutaneously every 4 weeks. Est. Tx Plan Start Date: No information available Estimated Start Date Info: Established on therapy Est. Estimated Treatment Duration: Until lack of efficacy Quang Lindsey CPhT [facility] Infl[facility] P: [phone] F: [phone] documented in this encounter [facility] 03-01-2025 Note [facility] 02-27-2025 Telephone encounter Note See result note. Michelle Rojas APRN.LIZZIE [facility] 02-27-2025 Miscellaneous Notes See result note. Michelle Rojas APRN.LIZZIE Patient called inquiring about her Pap results. Please review. Thank you. Qian Estevez RN documented in this encounter [facility] 02-27-2025 Telephone encounter Note Patient called inquiring about her Pap results. Please review. Thank you. Qian Estevez RN [facility] 02-26-2025 Note [facility] 02-23-2025 Telephone encounter Note Patient calling regarding possible flair of symptoms, seen in ER yesterday, lab results elevated. Conferenced to [place] induction furnace operator, Manisha, to speak with provider integration architect for Rheumatology., Dr. Tucker While waiting to speak to the Provider on-call, if you develop ANY new symptoms, if your condition worsens, or if you are concerned or anxious about your condition for any reason, go to the Emergency Room or call 911. [facility] 02-23-2025 Miscellaneous Notes Patient calling regarding possible flair of symptoms, seen in ER yesterday, lab results elevated. Conferenced to [place] induction furnace operator, Manisha, to speak with provider integration architect for Rheumatology., Dr. Tucker While waiting to speak to the Provider on-call, if you develop ANY new symptoms, if your condition worsens, or if you are concerned or anxious about your condition for any reason, go to the Emergency Room or call 911. documented in this encounter [facility] 02-20-2025 Note [facility] 02-20-2025 History of Present illness Narrative Workforce Advisor offered: Patient declinesRaphael Curran is a 34 year old who [...] Living0 SAB0 IAB0 Ectopic0 Multiple0 Live Births0 Tutoring Clinician History LMP: 12/31/2021, IUD Age at Menarche: Age at First : Age at Menopause: Tutoring Clinician History Comments: Sexual Activity: Yes; Male; mirena inserted 11/2021 Contraception: I.U.D., Condom PAST MEDICAL HISTORY Diagnosis Date Anxiety Angeli Constantino Asthmatic bronchitis (HCC) recurrent episodes since pneumonia fall and winter Depression Angeli Constantino Epigastric abdominal pain Fibromyalgia Dr. Terrazas Inflammatory polyarthritis (HCC) Joint pain Superintendent [employer]- Dr. Kelly @[facility] Migraine with aura visual aura; diagnosed with [...] discussed with the Patient or Patient's Authorized Coremaker Floor. As applicable, any other physician, advance practice provider, medical student, or other health professional student that will be observing or involved in the sensitive examination for educational or training purposes was discussed with the Patient or Authorized Coremaker Floor. The Patient or Authorized Coremaker Floor has agreed to proceed with the sensitive [...] external genitalia normal, normal Bartholin's glands, urethra, Faunsdale's glands, no vulvar lesions, no cervical lesions, [...] year or sooner as needed Michelle Rojas APRN.SENIOR MORTGAGE UNDERWRITER documented in this encounter [facility] 01-31-2025 Note [facility] 01-09-2025 Note [facility] 01-09-2025 History of Present illness Narrative SUBJECTIVE Liliam Thompson is a 34 year old female here today for a check up on her medical problems. Chief Complaint Patient presents with: Recheck: Persistent diarrhea and vomiting for the last 5 days. 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 [...] life stressors, including a potential move to [place] next month. She is currently taking 10 [...] reaction.Seek emergent medical care immediately after use.Disp:1 2-pakw/maintenance trainer albuterol HFA (PROAIR HFA) 90 mcg/actuation [...] and agoraphobia due to potential move to [place] next month. Currently on Prozac 10 mg [...] take 1-2 tablets per dose. - Initiate ndjk-tjx-ruohxlm probiotics to restore gut jimmie. - Monitor for changes in stool color; advised to report any dark red, maroon, or black stools. - Follow-up via Compound Time message by the end of the week to report symptom status. Recording using Osmopure software for draft documentation of the visit was discussed with the patient/authorized billing representative; all questions welcomed and answered. Patient/authorized billing representative agreed to proceed Portions of this [...] symptoms worsen or fail to improve. Petra Lugo APRN-SENIOR MORTGAGE UNDERWRITER documented in this encounter [facility] 01-03-2025 Note [facility] 12-21-2024 Note [facility] 12-21-2024 History of Present illness Narrative TREVOR BENDER Subjective Liliam Thompson is a 34 year [...] Diagnosis Date Anxiety Angeli Constantino Asthmatic bronchitis ([facility]) recurrent episodes since pneumonia fall and winter Depression Angeli Constantino Epigastric abdominal pain Fibromyalgia Dr. 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 Kelly @[facility] Migraine with aura visual aura; diagnosed with [...] reaction.Seek emergent medical care immediately after use.Disp:1 2-pakw/maintenance trainer albuterol HFA (PROAIR HFA) 90 mcg/actuation [...] advised: Tylenol/Motrin Procedures documented in this encounter [facility] 12-18-2024 Telephone encounter Note Called patient and questions answered. Maile Stacy RN [facility] 12-18-2024 Miscellaneous Notes Called patient and questions answered. Maile Stacy RN Patient called has procedure on 12/19 Patient asking if there if any special instructions before apt also is it okay if she take b/c and or advil before apt Patient can be reached at [phone] Please advise documented in this encounter [facility] 12-18-2024 Telephone encounter Note Patient called has procedure on 12/19 Patient asking if there if any special instructions before apt also is it okay if she take b/c and or advil before apt Patient can be reached at [phone] Please advise [facility] Work Phone: 12-18-2024 Instructions Silvia Tucker MD - 12/18/2024 8:26 AM EDT Labs and Xray today I will contact you through Compound Time for results documented in this encounter [facility] 12-18-2024 History of Present illness Narrative MD Liliam Lobato December 17, 2024 Referring Provider: PCP: Faustina Carcamo MD Chief Complaint: Patient presents with: Recheck Background Rheumatologic History: Previously seen by multiple providers in our division From Dr. Lucero - Started having fevers in [place]/Senior year of high school. [age]yo Was later diagnosed with inflammatory arthritis. [id number] Was treated with hydroxychloroquine + methotrexate While [...] chest, when she tries to sleep at [facility] she has difficulty laying down. 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 Terrazas Inflammatory polyarthritis (HCC) Joint pain Superintendent [employer]- Dr. Kelly @[facility] Migraine with aura visual aura; diagnosed with [...] arrhythmia Snoring Suicide attempt by acetaminophen overdose ([facility]) 06/2014 Syncope Vomiting PAST SURGICAL [...] reaction.Seek emergent medical care immediately after use.Disp:1 2-pakw/maintenance trainer 2 Each 0 albuterol HFA (PROAIR [...] Return Visit: I will contact her through [employer] for results. We will make a plan after the results are available. I spent a total of 40 minutes on the date of the service which included preparing to see the patient, kajo-[id number] patient care, completing clinical documentation, obtaining and/or reviewing separately obtained history, performing a medically appropriate examination, counseling and educating the patient/family/caregiver, and ordering medications, tests, or procedures. Silvia Tucker MD Referring Provider: PCP: Faustina Carcamo MD documented in this encounter [facility] 12-18-2024 Note [facility] 12-06-2024 Note [facility] 11-23-2024 Telephone encounter Note Just needs scheduled with a physician (Saad Jones Wiswell, [place]) so [employer] (in office camera) can be used at the same time. Please contact patient to schedule. Janett Heard RN [facility] 11-23-2024 Miscellaneous Notes Just needs scheduled with a physician (Saad Jones Wiswell, Godwin) so [employer] (in office camera) can be used at the same time. Please contact patient to schedule. Janett Heard RN Patient calling in regards to getting her IUD removed. She does have an active request for this. However she stated that she was told to let the breakfast host know for her there has to be a camera for visibility . Wanting to make sure this does not have to be scheduled a certain way. Please review and advise. La Nena Lui November 23, 2024 3:25 PM documented in this encounter [facility] 11-23-2024 Telephone encounter Note Patient calling in regards to getting her IUD removed. She does have an active request for this. However she stated that she was told to let the breakfast host know for her there has to be a camera for visibility . Wanting to make sure this does not have to be scheduled a certain way. Please review and advise. La Nena Lui November 23, 2024 3:25 PM [facility] 11-22-2024 History of Present illness Narrative VIRTUAL VISIT PROGRESS NOTE This is a virtual visit using [employer] Zoom Video Visit. It required patient-provider interaction for the medical decision making as documented below. I have communicated my name and active licensure. The patient's identity and physical location were verified at the time of this visit. Either the patient or their legal billing representative has been informed of the risks [...] 16-17yo Was later diagnosed with inflammatory arthritis. [id number] Was treated with hydroxychloroquine + methotrexate While [...] chest, when she tries to sleep at [facility] she has difficulty laying down. [...] 6 times/year (20mg tapered down) -IM steroids [id number] q3-4 months -Prednisone 2012 - 6 week long tapers - q 2-3 months -Prednisone 2012 - 2017 - q 3-4 months -Prednisone - last Jul 2020 - 20mg taper by 5mg every 3 days -Anakinra: 07/2018 - 08/2019 (D/C due to ineffectiveness, recurrent flares and injection site reactions) Plan at [facility]: Assessment and Plan: 30 year old [...] osteoporosis - ICD9: V82.81, ICD10: Z13.820 -Prior fci steroid use along with history of osteoporosis [...] abdominal pain Fibromyalgia Dr. 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 Kelly @[facility] Migraine with aura visual aura; diagnosed with [...] arrhythmia Snoring Suicide attempt by acetaminophen overdose ([facility]) 06/2014 Syncope Vomiting PAST SURGICAL [...] COVID-19 original vaccine, age 12+ yr, monovalent ([employer] (ROOF)[employer] - ALANIZ TOP) 09/28/2021 COVID-19 original vaccine, age 12+ yr, monovalent ([employer] (ROOF[employer] - PURPLE TOP) 10/11/2020 11/01/2020 04/06/2021 COVID-19 vaccine, age 12+ yr ([employer]) 06/22/2023 04/21/2024 COVID-19 vaccine, age 12+ yr, bivalent ([employer]) 07/28/2022 Haemophilus influenzae b (HbOC) vaccine, 4-dose [...] reaction.Seek emergent medical care immediately after use.Disp:1 2-pakw/maintenance trainer 2 Each 0 benzonatate (TESSALON PERLE) [...] which included preparing to see the patient, eedm-zx-rtsa patient care, completing clinical documentation, obtaining and/or reviewing separately obtained history, performing a medically appropriate examination, counseling and educating the patient/family/caregiver, and ordering medications, tests, or procedures. Silvia Tucker MD Referring Provider: PCP: Faustina Carcamo MD documented in this encounter [facility] 11-22-2024 Note [facility] 11-22-2024 Note [facility] 11-22-2024 History of Present illness Narrative [...] Diagnosis Date Anxiety Angeli Constantino Asthmatic bronchitis ([facility]) recurrent episodes since pneumonia fall and winter Depression Angeli Constantino Epigastric abdominal pain Fibromyalgia Dr. 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 Kelly @[facility] Migraine with aura visual aura; diagnosed with [...] arrhythmia Snoring Suicide attempt by acetaminophen overdose ([facility]) 06/2014 Syncope Vomiting PAST SURGICAL [...] reaction.Seek emergent medical care immediately after use.Disp:1 2-pakw/maintenance trainer benzonatate (TESSALON PERLE) 100 mg capsule [...] advised: Tylenol/Motrin Procedures documented in this encounter [facility] 11-19-2024 Note [facility] 11-19-2024 History of Present illness Narrative [...] history is provided by the patient. No regional service manager was used. Sore Throat This is a [...] relief. PAST MEDICAL HISTORY Diagnosis Date Anxiety Deangeloamarilis Constantino Asthmatic bronchitis ([facility]) recurrent episodes since pneumonia fall and winter Depression Deangeloamarilis Constantino Epigastric abdominal pain Fibromyalgia Dr. 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 Kelly @[facility] Migraine with aura visual aura; diagnosed with [...] arrhythmia Snoring Suicide attempt by acetaminophen overdose ([facility]) 06/2014 Syncope Vomiting PAST SURGICAL [...] reaction.Seek emergent medical care immediately after use.Disp:1 2-pakw/maintenance trainer predniSONE (DELTASONE) 10 mg tablet Take [...] - STREP A MOLECULAR (POC) Rosaura Santacruz APRN.LIZZIE History and Record Review External record(s) reviewed: prior inpatient record and prior outpatient record. Differential Diagnoses - viral pharyngitis is more likely for the following reason(s): suggested by H&P and consistent with laboratory studies - strep is less likely for the following reason(s): laboratory studies not suggestive Disposition The patient was discharged. Procedures documented in this encounter [facility] 11-08-2024 Telephone encounter Note Reason for [...] denies Protocols used: Heart Rate and Heartbeat [id number] [facility] 11-08-2024 Miscellaneous Notes Reason for Call: [...] denies Protocols used: Heart Rate and Heartbeat [id number] documented in this encounter [facility] 11-08-2024 Note [facility] 10-31-2024 Note [facility] 10-31-2024 History of Present illness Narrative Images from the original note were not included. Subjective HPI Nontoxic-appearing 34-year-old female presents urgent care chief complaint finger laceration. Patient states was cutting herbs with a kitchen knife at home when she cut her middle finger left hand. Kjlvc-fuax-unrsxnoh. States thoroughly wash hand with soap and [...] abdominal pain Fibromyalgia Dr. 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 Kelly @[facility] Migraine with aura visual aura; diagnosed with [...] arrhythmia Snoring Suicide attempt by acetaminophen overdose ([facility]) 06/2014 Syncope Vomiting PAST SURGICAL [...] reaction.Seek emergent medical care immediately after use.Disp:1 2-pakw/maintenance trainer predniSONE (DELTASONE) 10 mg tablet Take [...] of care. This note was generated using [employer] software. It may contain errors in wording, punctuation, or spelling. Nicholas Dorantes APRN.SENIOR MORTGAGE UNDERWRITER documented in this encounter [facility] 10-29-2024 Telephone encounter Note Called patient [...] is okay with a response over MyChart. [facility] 10-29-2024 Miscellaneous Notes Called patient to [...] listed below.. Patient can be reached at :[phone] documented in this encounter [facility] 10-29-2024 Telephone encounter Note Patient has [...] listed below.. Patient can be reached at :[phone] [facility] 10-26-2024 Telephone encounter Note Prescription [...] repeat in 4 hours if needed Ovi Jones LPN October 26, 2024 10:[address] [facility] 10-26-2024 Miscellaneous Notes Prescription Refill [...] repeat in 4 hours if needed Ovi Jones LPN October 26, 2024 10:03 AM documented in this encounter [facility] 10-24-2024 History of Present illness Narrative [...] PATIENT PRESENTS WITH AN IMPLANTABLE OR ATTACHED CONDENSER CLEANER: No RADIOLOGY DEPARTMENT: General X-ray: Exam(s) Completed: Upper Extremity X-Ray(s): Wrist, left PERIPHERAL IV DATA: Not applicable SIGNED BY: RT Sharyn(R) October 24, 2024 11:55 AM documented in this encounter [facility] 10-24-2024 Note [facility] 10-24-2024 Note [facility] 10-24-2024 History of Present illness Narrative [...] pain: [facility] PAST MEDICAL HISTORY Diagnosis Date Anxiety Melbaitelyn Vira Asthmatic bronchitis recurrent episodes since pneumonia fall and winter 2011 Depression Angeli Christiansonger Epigastric abdominal pain Fibromyalgia Dr. Terrazas Inflammatory polyarthritis (HCC) Joint pain Superintendent [employer]- Dr. Kelly @[facility] Migraine with aura visual aura; diagnosed with [...] reaction.Seek emergent medical care immediately after use.Disp:1 2-pakw/maintenance trainer naratriptan (AMERGE) 2.5 mg tablet Take [...] pain: X 2 weeks-injured it in the [facility] Review of Systems Objective BP 130/80 [...] injury Dictated by : MD Steven TURNER APRN.SENIOR MORTGAGE UNDERWRITER MDM Procedures documented in this encounter [facility] 10-16-2024 Note [facility] 10-16-2024 History of Present illness Narrative This note was created using Fairlay[employer]. Subjective Liliam Thompson is a 34 year old female. Patient presents with: Same Day Appointment: severe fatigue and weak, muscle pains and joint pain since Tuesday 5 days SUBJECTIVE: Liliam Thomposn is a 34 year old year old [...] Dr. Terrazas Inflammatory polyarthritis (HCC) Joint pain Superintendent [employer]- Dr. Kelly @[facility] Migraine with aura visual aura; diagnosed with [...] arrhythmia Snoring Suicide attempt by acetaminophen overdose ([facility]) 06/2014 Syncope Vomiting Current Outpatient [...] reaction.Seek emergent medical care immediately after use.Disp:1 2-pakw/maintenance trainer naratriptan (AMERGE) 2.5 mg tablet Take [...] bone demineralization. - Advised considering a daily zemy-ukz-eqikpom vitamin D supplement of 5,000 IU for [...] Faustina Carcamo MD documented in this encounter [facility] 10-16-2024 Note [facility] 09-25-2024 Note SARS-COV-2 (AGENT OF COVID-19) RNA: Not detected INFLUENZA A RNA: Not detected INFLUENZA B RNA: Not detected RESPIRATORY SYNCYTIAL VIRUS (RSV) RNA: Not detected [facility] Comment on above: Performed By: #### 9 [id number] ####[facility] LABCLIA [id number] [place] [address] [place] 09-25-2024 History of [...] PATIENT PRESENTS WITH AN IMPLANTABLE OR ATTACHED CONDENSER CLEANER: No RADIOLOGY DEPARTMENT: General X-ray: Exam(s) Completed: Chest X-Ray PERIPHERAL IV DATA: Not applicable SIGNED BY: Saima Daly September 25, 2024 9:20 AM documented in this encounter [facility] 09-25-2024 Note [facility] 09-25-2024 Note [facility] 09-25-2024 History of Present illness Narrative [...] history is provided by the patient. No regional service manager was used. Cough This is a new [...] asthma. PAST MEDICAL HISTORY Diagnosis Date Anxiety Deangeloamarilis Constantino Asthmatic bronchitis recurrent episodes since pneumonia fall and winter Depression Melbashannanamarilis Constantino Epigastric abdominal pain Fibromyalgia Dr. Terrazas Inflammatory polyarthritis (HCC) Joint pain [employer]- Dr. Kelly @[facility] Migraine with aura visual aura; diagnosed with [...] arrhythmia Snoring Suicide attempt by acetaminophen overdose ([facility]) 06/2014 Syncope Vomiting PAST SURGICAL [...] reaction.Seek emergent medical care immediately after use.Disp:1 2-pakw/maintenance trainer naratriptan (AMERGE) 2.5 mg tablet Take [...] RSV PCR, ROUTINE-obtained and pending Rosaura Santacruz APRN.SENIOR MORTGAGE UNDERWRITER documented in this encounter [facility] 09-13-2024 History of Present illness Narrative [...] been reviewed prior to dispensing the medication. Market Development Director Assessment Patient confirmed: Yes Med/dose confirmed: Yes Supplies needed: No supplies needed Missed doses: No Estimated days supply on hand: 0 Next cycle/dose due: 09/25/24 Copay amount: 0 Delivery method: FedEx Signature required: Waived on patient request Delivery address: [address], [place] [address] Delivery date: 09/19/24 Questions or concerns for [...] reaction.Seek emergent medical care immediately after use.Disp:1 2-pakw/maintenance trainer naratriptan (AMERGE) 2.5 mg tablet Take [...] facility-administered medications on file prior to visit. [facility] RX SPECIALTY CLINICAL ASSESSMENT - INFLAMMATORY [...] efficacy Beena Tian documented in this encounter [facility] 09-13-2024 Note [facility] 09-11-2024 Note [facility] 09-11-2024 History of Present illness Narrative This Team Access Model visit is a virtual encounter. It required patient-provider interaction for the medical decision making as documented below. I have communicated my name and active licensure. The patient's identity and physical location were verified at the time of this visit. Either the patient or their legal billing representative has been informed of the risks and benefits of -- and alternatives to -- treatment through a remote evaluation and consents to proceed with the evaluation remotely. Patient Location: [place] CC: Patient presents with: Anxiety HPI Liliam [...] abdominal pain Fibromyalgia Dr. 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 Kelly @[facility] Migraine with aura visual aura; diagnosed with [...] arrhythmia Snoring Suicide attempt by acetaminophen overdose ([facility]) 06/2014 Syncope Vomiting PAST SURGICAL [...] reaction.Seek emergent medical care immediately after use.Disp:1 2-pakw/maintenance trainer naratriptan (AMERGE) 2.5 mg tablet Take [...] options, medications, and coordinating care. Moon Beavers APRN.SENIOR MORTGAGE UNDERWRITER documented in this encounter [facility] 09-07-2024 Telephone encounter Note Pt read the [employer] msg with Dr. Carcamo' information and the phone numbers. Last read by Bina Thompson at 7:22 PM on 09/06/2024. [facility] 09-07-2024 Miscellaneous Notes Pt read the [employer] msg with Dr. Carcamo' information and the phone numbers. Last read by Bina Thompson at 7:22 PM on 09/06/2024. Called and left a detailed voicemail notifying patient of providers message. Clinic phone number was left for the patient to call back and answer providers questions. Sent information through to Pts MyChart as well. Renita Currie, RN My apologies--I did get a message back from Chiquita Montez--she cannot add more patients due to her filled panel size but said that can make referrals for other providers within [facility] system. Below is her note to me: Pantera Wilson, I am currently not able to accept new patients for general psychiatric diagnosis due to my panel size. You can continue to put the consult to psychiatry order and if the patients are willing to see a provider virtually, they can call [phone] and schedule an appointment with a provider in our department. If they are looking for in person and virtual options, you can put the consult and then have them Call [phone] to schedule an appointment with an [facility] provider. Hope that helps, Chiquita See if patient wants to start with seeing someone virtually by calling the number above or if wants to see someone in person and needs a referral to someone through [facility]. Pt calling in as she had a virtual visit with Dr. Carcamo on 08/20/24. Pt states Dr. Carcamo mentioned that she was going to message a psychology Nurse practitioner that used to come to [place] to possibly refer pt to. Pt has not heard anything back. Pt's OV note from 08/20 is not completed so unsure of Dr. Carcamo' plan. Will send msg to provider for instructions. Noted pt was to have a return visit in 6 months around 02/17/[address] Carcamo. Pt declined offered appts with data steward. States she prefers to stay with Dr. Carcamo. Last in person visit with Dr. Carcamo was 12/2023. Pt booked for in person appt on 03/18/[address] Carcamo. documented in this encounter [facility] 09-06-2024 Telephone encounter Note Called and left a detailed voicemail notifying patient of providers message. Clinic phone number was left for the patient to call back and answer providers questions. Sent information through to [facility] as well. Renita Currie, RN [facility] 09-06-2024 Telephone encounter Note My apologies--I did get a message back from Chiquita Montez--she cannot add more patients due to her filled panel size but said that can make referrals for other providers within [facility] system. Below is her note to me: Pantera Wilson, I am currently not able to accept new patients for general psychiatric diagnosis due to my panel size. You can continue to put the consult to psychiatry order and if the patients are willing to see a provider virtually, they can call [phone] and schedule an appointment with a provider in our department. If they are looking for in person and virtual options, you can put the consult and then have them Call [phone] to schedule an appointment with an [facility] provider. Hope that helps, Chiquita See if patient wants to start with seeing someone virtually by calling the number above or if wants to see someone in person and needs a referral to someone through [facility]. [facility] 09-06-2024 Instructions Faustina Carcamo MD - 09/06/2024 6:12 PM EST ,- Continue taking your current medications as prescribed. - Start taking Hydroxyzine 50 mg tablets, up to three times daily as needed for anxiety; prescription sent to [facility] in [place]. - Practice deep breathing exercises: inhale for 4 seconds, exhale for 8 seconds to help manage heart symptoms. - Stay hydrated and maintain electrolyte balance to support heart health. - Complete lab tests ordered by your enterprise mobility architect, including liver enzymes, CO2 protein, blood count, sed rate, creatinine, blood urea nitrogen, and vitamin D. - Follow up with a conductor pullman if heart symptoms become bothersome. - Next appointment scheduled in 6 months; you will be contacted with the date and time. documented in this encounter [facility] 09-06-2024 Telephone encounter Note Pt calling in as she had a virtual visit with Dr. Carcamo on 08/20/[address]. [address] Carcamo mentioned that she was going to message a psychology Nurse practitioner that used to come to [place] to possibly refer pt to. Pt has not heard anything back. Pt's OV note from 08/20 is not completed so unsure of Dr. Carcamo' plan. Will send msg to provider for instructions. Noted pt was to have a return visit in 6 months around 02/17/[address] Carcamo. Pt declined offered appts with data steward. States she prefers to stay with Dr. Carcamo. Last in person visit with Dr. Carcamo was 12/2023. Pt booked for in person appt on 03/18/[address] Carcamo. [facility] 08-27-2024 Telephone encounter Note Prescription Refill [...] instructed every 4 hours as needed. Ovi Jones LPN August 27, 2024 2:31 PM [facility] 08-27-2024 Miscellaneous Notes Prescription Refill Information [...] instructed every 4 hours as needed. Ovi Jones LPN August 27, 2024 2:31 PM documented in this encounter [facility] 08-20-2024 Note [facility] 08-20-2024 History of Present illness Narrative VIRTUAL VISIT PROGRESS NOTE This is a virtual visit using [employer] Video Visit. It required patient-provider interaction for the medical decision making as documented below. I have communicated my name and active licensure. The patient's identity and physical location were verified at the time of this visit. Either the patient or their legal billing representative has been informed of the risks [...] presenting for follow-up. Liliam reports that her conductor pullman, Dr. Zambrano, has retired, and she is inquiring about whether she should follow up with another conductor pullman. She mentions that she met with his SHOE SINGER after his departure, but the follow-up was canceled. She recalls a note from the SHOE SINGER stating that her 30-day event monitor showed [...] also reports experiencing chest pain, which her enterprise mobility architect attributes to pleurisy, noting that it worsens [...] episodes since pneumonia fall and winter Depression Melbashnananamarilis Constantino Epigastric abdominal pain Fibromyalgia Dr. Terrazas Inflammatory polyarthritis (HCC) Joint pain Superintendent [employer]- Dr. Kelly @[facility] Migraine with aura visual aura; diagnosed with [...] arrhythmia Snoring Suicide attempt by acetaminophen overdose ([facility]) 06/2014 Syncope Vomiting PAST SURGICAL [...] reaction.Seek emergent medical care immediately after use.Disp:1 2-pakw/maintenance trainer naratriptan (AMERGE) 2.5 mg tablet Take [...] with rheumatologic flares. - Continue management under enterprise mobility architect's care. - Patient to complete pending lab work ordered by enterprise mobility architect, including liver enzymes, CMP, and vitamin D levels. There are no Patient Instructions on file for this visit. I spent a total of 29 minutes on the date of the service which included preparing to see the patient, hole-hr-umck patient care, completing clinical documentation, obtaining and/or reviewing separately obtained history, performing a medically appropriate examination, counseling and educating the patient/family/caregiver, ordering medications, tests, or procedures, independently interpreting results (not separately reported), and communicating results to the patient/family/caregiver Faustina Carcamo MD documented in this encounter [facility] 08-02-2024 Note [facility] 08-01-[address] - 08/01/2024 10:42 AM EST Nutrition Intervention 07/27/2024: Goals: to continue to eat 6x day Wants to enjoy cooking and eating again Small plates for snacks only, not food Take picture of meals and discuss at next appointment documented in this encounter [facility] 07-30-2024 History of Present illness Narrative VIRTUAL VISIT PROGRESS NOTE This is a virtual visit using Allinea [employer] Zoom Video Visit. It required patient-provider interaction for the medical decision making as documented below. I have communicated my name and active licensure. The patient's identity and physical location were verified at the time of this visit. Either the patient or their legal billing representative has been informed of the risks [...] 16-17yo Was later diagnosed with inflammatory arthritis. [id number] Was treated with hydroxychloroquine + methotrexate While [...] chest, when she tries to sleep at [facility] she has difficulty laying down. [...] 6 times/year (20mg tapered down) -IM steroids [id number] q3-4 months -Prednisone 2010- 2012 - 6 week long tapers - q 2-3 months -Prednisone 2012 - 2017 - q 3-4 months -Prednisone - last Jul 2020 - 20mg taper by 5mg every 3 days -Anakinra: 07/2018 - 08/2019 (D/C due to ineffectiveness, recurrent flares and injection site reactions) Plan at [facility]: Assessment and Plan: 30 year old [...] - ICD9: V82.81, ICD10: Z13.820 -Prior intermediate teacher steroid use along with history of osteoporosis [...] Dr. Terrazas Inflammatory polyarthritis (HCC) Joint pain Superintendent [employer]- Dr. Kelly @[facility] Migraine with aura visual aura; diagnosed with [...] COVID-19 original vaccine, age 12+ yr, monovalent (PFIZER-[employer]ROOF[employer]NTECH - ALANIZ TOP) 09/28/2021 COVID-19 original vaccine, [...] 21 yr (ENGERIX B-PEDS, RECOMBIVAX HB-PEDS) 04/02/2005 05/31/200504/04/2006 human papillomavirus (HPV4) vaccine, quadrivalent (GARDASIL) 05/09/2007 [...] reaction.Seek emergent medical care immediately after use.Disp:1 2-pakw/maintenance trainer 1 Each 2 naratriptan (AMERGE) 2.5 [...] which included preparing to see the patient, hltv-wv-rydf patient care, completing clinical documentation, obtaining and/or [...] Swollen Glands: Yes documented in this encounter [facility] 07-30-2024 Note [facility] 07-27-2024 Note HNO ID: [id number] Author: CINDY BROWN RD Service: ? Author Type: Registered Dietitian Type: Progress Notes Filed: 08/01/2024 10:45 Note Text: The [facility] Nutrition Therapy: Virtual Consult - Initial Assessment I have communicated my name and active licensure. The patient?s identity and physical location were verified at the time of this visit. Either the patient or their legal billing representative has been informed of the risks [...] she has a supportive partner, traveling to [place] in the coming weeks for his family [...] Initial Assess/15 min 3 units SIGNATURE: Cindy Brown RD PATIENT NAME: Liliam Thompson DATE: July 27, 2024 TIME: 3:16 PM PAGER: N/A [facility] 07-27-2024 History of Present illness Narrative The [facility] Nutrition Therapy: Virtual Consult - Initial Assessment I have communicated my name and active licensure. The patient s identity and physical location were verified at the time of this visit. Either the patient or their legal billing representative has been informed of the risks [...] she has a supportive partner, traveling to [place] in the coming weeks for his family [...] Initial Assess/15 min 3 units SIGNATURE: Cindy Brown RD PATIENT NAME: Liliam Thompson DATE: July 27, 2024 TIME: 3:16 PM PAGER: N/A documented in this encounter [facility] 07-25-2024 Telephone encounter Note Pt's appt has been changed [facility] 07-25-2024 Miscellaneous Notes Pt's appt has been changed Virtual is fine Pt has multiple messages for today. Pt asking if her appt Tuesday can be changed to virtual or does it need to be in person Please call pt [phone] documented in this encounter [facility] 07-25-2024 Telephone encounter Note Spoke with pt and relayed provider message. Pt verbalized understanding. [facility] 07-25-2024 Miscellaneous Notes Spoke with pt [...] the antibiotics? Pt could be reached at [phone] Thank you documented in this encounter [facility] 07-25-2024 Telephone encounter Note Tried to call pt, but no answer. [facility] 07-25-2024 Telephone encounter Note Virtual is fine [facility] 07-25-2024 Telephone encounter Note Please ask her to hold off ilaris until she completes antibiotics. [facility] 07-25-2024 Telephone encounter Note Pt has multiple messages for today. [facility] 07-25-2024 Telephone encounter Note Pt asking if her appt Tuesday can be changed to virtual or does it need to be in person Please call pt [phone] [facility] 07-25-2024 Telephone encounter Note Please see pt message and advise. Thank you. [facility] 07-25-2024 Telephone encounter Note Pt states she broke a tooth and was given antibiotics Pt was scheduled to take her Ilaris 2 days ago Pt wants to know if she could take the Ilaris, while on the antibiotics? Pt could be reached at [phone] Thank you [facility] 07-19-2024 Telephone encounter Note OK [facility] 07-19-2024 Miscellaneous Notes OK Patient calls and states that she was recently prescribed antibiotic at [facility]. Patient reports that she has vaginal itching and thinks she has a yeast infection. Patient asking if provider can send in prescription for Diflucan to [facility] [place]? The patient has been identified by name [...] 2024 8:56 AM documented in this encounter [facility] 07-19-2024 Telephone encounter Note Patient calls and states that she was recently prescribed antibiotic at [facility]. Patient reports that she has [...] Mcclellan RN July 19, 2024 8:56 AM [facility] 07-11-2024 Note [facility] 07-11-2024 History of Present illness Narrative This note was created using avolution. Subjective Liliam Thompson is a 33 year [...] chills or myalgia. Patient has been taking dnrz-nxm-magngdl medications with no improvement in her symptoms. [...] IMPRESSION: Acute Sinusitis documented in this encounter [facility] 07-04-2024 Instructions Moon Beavers APRN.CNP - 07/04/2024 3:27 PM EST 1. Start [...] sooner if worsening documented in this encounter [facility] 07-04-2024 Note [facility] 07-04-2024 History of Present illness Narrative [...] abdominal pain Fibromyalgia Dr. 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 Kelly @[facility] Migraine with aura visual aura; diagnosed with [...] arrhythmia Snoring Suicide attempt by acetaminophen overdose ([facility]) 06/2014 Syncope Vomiting PAST SURGICAL [...] reaction.Seek emergent medical care immediately after use.Disp:1 2-pakw/maintenance trainer naratriptan (AMERGE) 2.5 mg tablet Take [...] Patient agreeable to treatment plan. Moon Beavers APRN.SENIOR MORTGAGE UNDERWRITER documented in this encounter [facility] 07-02-2024 Note [facility] 06-14-2024 Telephone encounter Note Spoke with pt and relayed provider message. Pt verbalized understanding. [facility] 06-14-2024 Miscellaneous Notes Spoke with pt [...] that ties to this message. Pharmacy: [id number] [place] [address] - [address] - [phone] [id number] Advised pt if sxs worsen to go [...] her neck and armpit. Patient's phone number: [phone] documented in this encounter [facility] 06-14-2024 Note Addended by: SILVIA ISLAS on: 06/14/2024 02:28 PM Modules accepted: Orders [facility] 06-14-2024 Telephone encounter Note Let's do another course of steroid Dosepak. She would need urgent care/ER evaluation if still does not get better after the second round. [facility] 06-14-2024 Telephone encounter Note Spoke with [...] 06/06/2024 that ties to this message. Pharmacy: [id number] [place] [address] - [address] - [phone] [facility] [id number] Advised pt if sxs worsen to go to ER for further evaluation. Please advise. Thank you. [facility] 06-14-2024 Telephone encounter Note Patient stated that she finished her Medrol Dose Pack yesterday but has been experiencing a resurgence of symptoms for the past few days with them being worse today. Patient stated that she is experiencing joint pain, fevers, and swollen glands in her neck and armpit. Patient's phone number: [phone] [facility] 06-08-2024 History of Present illness Narrative AMBULATORY TELEPHONE VISIT Liliam Thompson has consented to this telephone encounter. Persons Present: patient Chief Complaint/Reason: ER follow up chest pain HPI: Presents for ER follow up visit. She was seen at [facility] June 07, 2024 with report of chest [...] the following: I spoke with Bina (see [employer] message). She reports sx began Tuesday of [...] Went to the ER last night in [place] for this. They ruled out PE and [place]. CXR was normal, labs were ok. No [...] pleuritic discomfort. Data Reviewed: Outside chart from [facility] reviewed. 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 Genaro Neri APRN.CNS Total Time Spent: 20 minutes Genaro Neri APRN.VPK TEACHER documented in this encounter [facility] 06-07-2024 Telephone encounter Note I spoke with Bina (see [employer] message). She reports sx began Tuesday of [...] Went to the ER last night in [place] for this. They ruled out PE and [place]. CXR was normal, labs were ok. No medications prescribed. She stopped taking colchicine d/t no insurance coverage. Still taking Ilaris, last dose taken was beginning of this month. Taking OTC ibuprofen for the pain. [facility] 06-07-2024 Miscellaneous Notes I spoke with Bina (see MyChart message). [...] Went to the ER last night in [place] for this. They ruled out PE and [place]. CXR was normal, labs were ok. No medications prescribed. She stopped taking colchicine d/t no insurance coverage. Still taking Ilaris, last dose taken was beginning of this month. Taking OTC ibuprofen for the pain. documented in this encounter [facility] 05-15-2024 History of Present illness Narrative [...] been reviewed prior to dispensing the medication. Market Development Director Assessment Patient confirmed: Yes Med/dose confirmed: Yes Supplies needed: No supplies needed Missed doses: No Estimated days supply on hand: 0 Next cycle/dose due: (ND ~05/20-05/24) Copay amount: 0 Payment confirmed: Yes Delivery method: FedEx Signature required: Waived on patient request Delivery address: [place] [address] Delivery date: 05/17/24 Questions or concerns for [...] reaction.Seek emergent medical care immediately after use.Disp:1 2-pakw/maintenance trainer naratriptan (AMERGE) 2.5 mg tablet Take [...] facility-administered medications on file prior to visit. [facility] RX SPECIALTY CLINICAL ASSESSMENT - INFLAMMATORY CONDITIONS V6: Assessment to use: Refill Date of influenza vaccination reminder: 04/24/2024 Date of most recent vaccination assessment: 04/24/2024 Treatment Plan Information: Ilaris Inject 150mg (1 vial) subcutaneously every 4 weeks. Est. Tx Plan Start Date: No information available Estimated Start Date Info: Established on therapy Est. Estimated Treatment Duration: Until lack of efficacy Ronnie Yoon ([facility]) [facility] FAX: documented in this encounter [facility] 05-14-[address] - 05/14/2024 10:05 AM EDT [...] instead of CIB documented in this encounter [facility] 05-14-2024 History of Present illness Narrative The [facility] Nutrition Therapy: Virtual Consult - Initial Assessment I have communicated my name and active licensure. The patient s identity and physical location were verified at the time of this visit. Either the patient or their legal billing representative has been informed of the risks [...] TIME: 9:34 AM documented in this encounter [facility] 05-08-2024 Telephone encounter Note Order has been faxed to [facility] as instructed [facility] 05-08-2024 Miscellaneous Notes Order has been faxed to [facility] as instructed OK, printed, resend. Patient calls and states that Rollator prescription needs to be for an adjustable Rollator. Please send updated order to [facility]. Please review and advise, Patsy Mcclellan RN documented in this encounter [facility] 05-08-2024 Telephone encounter Note OK, printed, resend. [facility] 05-04-2024 Telephone encounter Note Patient calls and states that Rollator prescription needs to be for an adjustable Rollator. Please send updated order to [facility]. Please review and advise, Patsy Mcclellan RN [facility] 04-30-2024 Telephone encounter Note Order and pertinent information faxed to [facility]. Yana Cruz LPN [facility] 04-30-2024 Miscellaneous Notes Order and pertinent information faxed to [facility]. Yana Cruz LPN Patient is requesting her rollator order be sent to [facility] in [place], please review and advise. La Nena Lui April 30, 2024 1:24 PM documented in this encounter [facility] 04-30-2024 Telephone encounter Note Patient is requesting her rollator order be sent to [facility] in [place], please review and advise. La Nena Lui April 30, 2024 1:24 PM [facility] 04-30-2024 Instructions Faustina Carcamo MD - [...] will be electronically signed and available in Compound Time for you to access. - If physical therapy is required by your insurance before obtaining the rollator, please let us know your preference for a [facility] location. - Please let us know if there is any additional paperwork that needs to be signed for your ADA request. documented in this encounter [facility] 04-30-2024 History of Present illness Narrative VIRTUAL VISIT PROGRESS NOTE This is a virtual visit using [employer] Zoom Video Visit. It required patient-provider interaction for the medical decision making as documented below. I have communicated my name and active licensure. The patient's identity and physical location were verified at the time of this visit. Either the patient or their legal billing representative has been informed of the risks [...] abdominal pain Fibromyalgia Dr. 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 Kelly @[facility] Migraine with aura visual aura; diagnosed with [...] arrhythmia Snoring Suicide attempt by acetaminophen overdose ([facility]) 06/2014 Syncope Vomiting PAST SURGICAL [...] reaction.Seek emergent medical care immediately after use.Disp:1 2-pakw/maintenance trainer naratriptan (AMERGE) 2.5 mg tablet Take [...] Faustina Carcamo MD documented in this encounter [facility] 04-24-2024 Telephone encounter Note Please sign these orders, patient needs syringes to go with her new Ilaris prescription. Patient is new to [facility] not new to Ilaris. Thank you Requested Prescriptions Pending Prescriptions Disp Refills Syringe with Needle, Disp, 3 mL 18 x 1 1/2 1 Each 12 Sig: Use to draw up ilaris dose Syringe with Needle, Disp, 1 mL 27 x 1/2 1 Each 12 Sig: Use to inject subcutaneous Ilaris dose Please review and advise. Ramin Glasgow RPh [facility] 04-24-2024 Miscellaneous Notes Please sign these orders, patient needs syringes to go with her new Ilaris prescription. [facility] is new to [facility] not new to Ilaris. Thank [...] Ramin Glasgow RPh documented in this encounter [facility] 04-19-2024 History of Present illness Narrative [facility] received prescription(s) for Ilaris from [place]'s office. Benefits investigation was conducted, indicating that a prior authorization is required by patient's insurance plan with [place] Medicaid/[place]. Encounter will be updated once prior authorization has been submitted by [facility]. Ronnie Yoon ([facility]) [facility] FAX: documented in this encounter [facility] 04-18-2024 Telephone encounter Note Images from the original note were not included. Most recent Rheumatology visit: 03/12/2024 (with Silvia Tucker) Last Bone Density on file: None on file Rheumatology Care Team: None on file Recent Office Visits - This Specialty 03/12/2024 SO-JILLIAN (systemic onset juvenile idiopathic arthritis) ([facility]) Rheumatology Silvia Tucker MD 09/09/2023 SO-JILLIAN (systemic onset juvenile idiopathic arthritis) ([facility]) Rheumatology Silvia Tucker MD 03/24/2023 Periodic fever syndrome ([facility]) Rheumatology/Pulmonary Silvia Tucker MD Upcoming Rheumatology Appointments - Next 365 Days Visit Type Date Time Department [facility] 07/30/2024 10:00 AM [facility] INDP CBC: Latest Ref Rng [...] + DIFF [SQCBCDIF] 2/4 Every 3 months 1107/06/23 02/09/24 Auth. provider: Silvia Tucker MD Assoc. [...] diagnoses: SO-JILLIAN (systemic onset juvenile idiopathic arthritis) ([facility]) CREATININE BLD [SQCRET] 07/23/24 10/22/24 03/12/24 Auth. provider: Silvia Tucker MD Assoc. diagnoses: SO-JILLIAN (systemic onset juvenile idiopathic arthritis) ([facility]) UREA NITROGEN [SQBUN] 07/23/24 10/22/24 03/12/24 Auth. provider: Silvia Tucker MD Assoc. diagnoses: SO-JILLIAN (systemic onset juvenile idiopathic arthritis) ([facility]) VITAMIN D 25 HYDROXY [SQVITD] 07/23/24 10/22/24 03/12/24 Auth. provider: Silvia Tucker MD Assoc. diagnoses: SO-JILLIAN (systemic onset juvenile idiopathic arthritis) ([facility]) Lorie Nazario RN [facility] 04-18-2024 Miscellaneous Notes Images from the original note were not included. Most recent Rheumatology visit: 03/12/2024 (with Silvia Tucker) Last Bone Density on file: None on file Rheumatology Care Team: None on file Recent Office Visits - This Specialty 03/12/2024 SO-JILLIAN (systemic onset juvenile idiopathic arthritis) ([facility]) Rheumatology Silvia Tucker MD 09/09/2023 SO-JILLIAN (systemic onset juvenile idiopathic arthritis) ([facility]) Rheumatology Silvia Tucker MD 03/24/2023 Periodic fever syndrome ([facility]) Rheumatology/Pulmonary Silvia Tucker MD Upcoming Rheumatology Appointments - Next 365 Days Visit Type Date Time Department [facility] 07/30/2024 10:00 AM [facility] INDP CBC: Latest Ref Rng [...] Interval Expires Ordered Last Rel. ALT/SGPT [SQALT] 08/18 Every 3 months 07/05/24 07/06/23 02/09/24 Auth. provider: Silvia Tucker MD Assoc. diagnoses: SO-JILLIAN (systemic onset juvenile idiopathic arthritis) (HCC), Periodic fever syndrome (HCC) AST/SGOT BLD [SQAST] 08/18 Every 3 months 07/05/24 07/06/23 02/09/24 Auth. [...] diagnoses: SO-JILLIAN (systemic onset juvenile idiopathic arthritis) ([facility]) COMPLETE BLOOD COUNT AND DIFFERENTIAL [SQCBCDIF] 07/23/24 10/22/24 03/12/24 Auth. provider: Silvia Tucker MD Assoc. diagnoses: SO-JILLIAN (systemic onset juvenile idiopathic arthritis) ([facility]) SEDIMENTATION RATE, WESTERGREN [SQWSR] 07/23/24 10/22/24 03/12/24 Auth. provider: Silvia Tucker MD Assoc. diagnoses: SO-JILLIAN (systemic onset juvenile idiopathic arthritis) ([facility]) CREATININE BLD [SQCRET] 07/23/24 10/22/24 03/12/24 Auth. provider: Silvia Tucker MD Assoc. diagnoses: SO-JILLIAN (systemic onset juvenile idiopathic arthritis) ([facility]) UREA NITROGEN [SQBUN] 07/23/24 10/22/24 03/12/24 Auth. provider: Silvia Tucker MD Assoc. diagnoses: SO-JILLIAN (systemic onset juvenile idiopathic arthritis) ([facility]) VITAMIN D 25 HYDROXY [SQVITD] 07/23/24 10/22/24 03/12/24 Auth. provider: Silvia Tucker MD Assoc. diagnoses: SO-JILLIAN (systemic onset juvenile idiopathic arthritis) ([facility]) Lorie Nazario RN THIS IS NOT A DUPLICATE Patient no longer using [facility]. documented in this encounter [facility] 04-17-2024 Telephone encounter Note THIS IS NOT A DUPLICATE Patient no longer using [facility]. [facility] 04-03-2024 Telephone encounter Note Pt is requesting to transfer care to you. It appears was seeing another provider from [facility]. Is this patient an appropriate fit and do we need to have the provider change the referral to psychology? Please advise. [facility] 04-03-2024 Miscellaneous Notes Pt is requesting to transfer care to you. It appears was seeing another provider from [facility]. Is this patient an appropriate fit and do we need to have the provider change the referral to psychology? Please advise. documented in this encounter [facility] 04-03-2024 History of Present illness Narrative [...] a healthy diet and stay active. Notes enterprise mobility architect thinks she is having a flare of [...] reaction.Seek emergent medical care immediately after use.Disp:1 2-pakw/maintenance trainer naratriptan (AMERGE) 2.5 mg tablet Take [...] polyarthritis (HCC) No date: Joint pain Comment: [employer]- Dr. Kelly @[facility] No date: Migraine with aura Comment: visual [...] TO PSYCHIATRY 3 mo follow up Genaro Neri APRN.VPK TEACHER 6 mo follow up Faustina Carcamo MD Schedule appt with slurry plant operator and Dr. Tomasa Neri APRN.VPK TEACHER Medical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 illness Narrative* Problem Noted Date Diagnosed Date Resolved Date Asthmatic bronchitis Overview: recurrent episodes since pneumonia fall and winter of 2011 Inflammatory polyarthritis 0 11/15/2013 documented as of this encounter (statuses as of 04/12/2023) [address]27-2021 History of Past illness Narrative* Problem Noted Date Diagnosed Date Resolved Date Asthmatic bronchitis Overview: recurrent episodes since pneumonia fall and winter of 2011 Inflammatory polyarthritis 0 11/15/2013 documented as of this encounter (statuses as of 04/13/2023) [address]27-2021 History of Past illness Narrative* Problem Noted Date Diagnosed Date Resolved Date Asthmatic bronchitis Overview: recurrent episodes since pneumonia fall and winter of 2011 Inflammatory polyarthritis 0 11/15/2013 documented as of this encounter (statuses as of 04/18/2023) [address]27-2021 History of Past illness Narrative* Problem Noted Date Diagnosed Date Resolved Date Asthmatic bronchitis Overview: recurrent episodes since pneumonia fall and winter of 2011 Inflammatory polyarthritis 0 11/15/2013 documented as of this encounter (statuses as of 04/18/2023) [address]27-2021 History of Past illness Narrative* Problem Noted Date Diagnosed Date Resolved Date Asthmatic bronchitis Overview: recurrent episodes since pneumonia fall and winter of 2011 Inflammatory polyarthritis 0 11/15/2013 documented as of this encounter (statuses as of 04/22/2023) [address]27-2021 History of Past illness Narrative* Problem Noted Date Diagnosed Date Resolved Date Asthmatic bronchitis Overview: recurrent episodes since pneumonia fall and winter of 2011 Inflammatory polyarthritis 0 11/15/2013 documented as of this encounter (statuses as of 04/26/2023) [address]27-2021 History of Past illness Narrative* Problem Noted Date Diagnosed Date Resolved Date Asthmatic bronchitis 021 Overview: recurrent episodes since pneumonia fall and winter of 2011 Inflammatory polyarthritis 0 11/15/2013 documented as of this encounter (statuses as of 05/21/2023) [place] [address]27-2021 History of Past illness Narrative* Problem Noted Date Diagnosed Date Resolved Date Asthmatic bronchitis 021 Overview: recurrent episodes since pneumonia fall and winter of 2011 Inflammatory polyarthritis 0 11/15/2013 documented as of this encounter (statuses as of 05/21/2023) [address]27-2021 History of Past illness Narrative* Problem Noted Date Diagnosed Date Resolved Date Asthmatic bronchitis 021 Overview: recurrent episodes since pneumonia fall and winter of 2011 Inflammatory polyarthritis 0 11/15/2013 documented as of this encounter (statuses as of 05/25/2023) [address]27-2021 History of Past illness Narrative* Problem Noted Date Diagnosed Date Resolved Date Asthmatic bronchitis 021 Overview: recurrent episodes since pneumonia fall and winter of 2011 Inflammatory polyarthritis 0 11/15/2013 documented as of this encounter (statuses as of 06/06/2023) [address]27-2021 History of Past illness Narrative* Problem Noted Date Diagnosed Date Resolved Date Asthmatic bronchitis 021 Overview: recurrent episodes since pneumonia fall and winter of 2011 Inflammatory polyarthritis 0 11/15/2013 documented as of this encounter (statuses as of 06/06/2023) [address]27-2021 History of Past illness Narrative* Problem Noted Date Diagnosed Date Resolved Date Asthmatic bronchitis 021 Overview: recurrent episodes since pneumonia fall and winter of 2011 Inflammatory polyarthritis 0 11/15/2013 documented as of this encounter (statuses as of 06/19/2023) [address]27-2021 History of Past illness Narrative* Problem Noted Date Diagnosed Date Resolved Date Asthmatic bronchitis Overview: recurrent episodes since pneumonia fall and winter of 2011 Inflammatory polyarthritis 0 11/15/2013 documented as of this encounter (statuses as of 06/22/2023) [address]27-2021 History of Past illness Narrative* Problem Noted Date Diagnosed Date Resolved Date Asthmatic bronchitis Overview: recurrent episodes since pneumonia fall and winter of 2011 Inflammatory polyarthritis 0 11/15/2013 documented as of this encounter (statuses as of 06/24/2023) [address]27-2021 History of Past illness Narrative* Problem Noted Date Diagnosed Date Resolved Date Asthmatic bronchitis Overview: recurrent episodes since pneumonia fall and winter of 2011 Inflammatory polyarthritis 0 11/15/2013 documented as of this encounter (statuses as of 07/04/2023) [address]27-2021 History of Past illness Narrative* Problem Noted Date Diagnosed Date Resolved Date Asthmatic bronchitis Overview: recurrent episodes since pneumonia fall and winter of 2011 Inflammatory polyarthritis 0 11/15/2013 documented as of this encounter (statuses as of 07/06/2023) [address]27-2021 History of Past illness Narrative* Problem Noted Date Diagnosed Date Resolved Date Asthmatic bronchitis Overview: recurrent episodes since pneumonia fall and winter of 2011 Inflammatory polyarthritis 0 11/15/2013 documented as of this encounter (statuses as of 07/22/2023) [address]27-2021 History of Past illness Narrative* Problem Noted Date Diagnosed Date Resolved Date Asthmatic bronchitis Overview: recurrent episodes since pneumonia fall and winter of 2011 Inflammatory polyarthritis 0 11/15/2013 documented as of this encounter (statuses as of 07/26/2023) [address]27-2021 History of Past illness Narrative* Problem Noted Date Diagnosed Date Resolved Date Asthmatic bronchitis Overview: recurrent episodes since pneumonia fall and winter of 2011 Inflammatory polyarthritis 0 11/15/2013 documented as of this encounter (statuses as of 07/29/2023) [facility]-27-2021 History of Past illness Narrative* Problem Noted Date Diagnosed Date Resolved Date Asthmatic bronchitis Overview: recurrent episodes since pneumonia fall and winter of 2011 Inflammatory polyarthritis 0 11/15/2013 documented as of this encounter (statuses as of 08/21/2023) [facility]-27-2021 History of Past illness Narrative* Problem Noted Date Diagnosed Date Resolved Date Asthmatic bronchitis Overview: recurrent episodes since pneumonia fall and winter of 2011 Inflammatory polyarthritis 0 11/15/2013 documented as of this encounter (statuses as of 09/23/2023) [facility]-27-2021 History of Past illness Narrative* Problem Noted Date Diagnosed Date Resolved Date Asthmatic bronchitis Overview: recurrent episodes since pneumonia fall and winter of 2011 Inflammatory polyarthritis 0 11/15/2013 documented as of this encounter (statuses as of 10/14/2023) [facility]-27-2021 History of Past illness Narrative* Problem Noted Date Diagnosed Date Resolved Date Asthmatic bronchitis Overview: recurrent episodes since pneumonia fall and winter of 2011 Inflammatory polyarthritis 0 11/15/2013 documented as of this encounter (statuses as of 10/25/2023) [facility]-2021 History of Past illness Narrative* Problem Noted Date Diagnosed Date Resolved Date Asthmatic bronchitis 021 Overview: recurrent episodes since pneumonia fall and winter of 2011 Inflammatory polyarthritis 0 11/15/2013 documented as of this encounter (statuses as of 10/28/2023) [facility]-26-2021 History of Present illness Narrative* Katelin King, [...] 07, 2021 8:16 AM [facility] of Present illness Narrative* Kristy Alanis)JACKIE - 07/17/2020 10:15 AM EST Radiology Service [...] 17, 2020 10:24 AM [facility] of Present illness Narrative* Katelin [...] 05, 2020 12:35 PM [facility] Diagnosis Intractable chronic migraine without aura and without status migrainosus- Primary Chronic migraine without aura, with intractable migraine, so stated, without mention of status migrainosus [facility] Diagnosis Neoplasm of uncertain behavior of skin- Primary Compound nevus of chest Benign neoplasm of skin of trunk, except scrotum [facility]* Diagnosis Obsessive-compulsive disorder, unspecified type [facility] Diagnosis Encounter for IUD insertion- Primary Encounter for insertion of intrauterine contraceptive device [facility] Diagnosis Left ankle strain, sequela- Primary Chronic pain of left ankle History of influenza Personal history of other infectious and parasitic disease [facility] Diagnosis COVID-19- Primary POTS (postural orthostatic tachycardia syndrome) Tachycardia, unspecified Chest wall discomfort Painful respiration [facility] 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 [facility] Diagnosis Surveillance of previously prescribed intrauterine contraceptive device- Primary Intrauterine contraceptive device threads lost, initial encounter [facility] Diagnosis Inappropriate sinus node tachycardia Other specified cardiac dysrhythmias [facility] Diagnosis Intrauterine contraceptive device threads lost, initial encounter [facility] 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 documented in this encounter [facility] note* 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 documented in this encounter [facility] note* Diagnosis Moderate anxiety- Primary Moderate episode of recurrent major depressive disorder (HCC) documented in this encounter [facility] note* Diagnosis Migraine without status migrainosus, not intractable, unspecified migraine type- Primary IUD check up Surveillance of previously prescribed intrauterine contraceptive device Morbid obesity Periodic fever syndrome Familial Mediterranean fever documented in this encounter [facility] note* Diagnosis Closed head injury, initial encounter- [...] encounter- Primary documented in this encounter [facility] note* Diagnosis POTS (postural orthostatic tachycardia syndrome)- Primary Tachycardia, unspecified Pleuritic chest pain Painful respiration 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 Cough, unspecified type Class 3 severe obesity due to excess calories with body mass index (BMI) of 50.0 to 59.9 in adult, unspecified whether serious comorbidity present (HCC) documented in this encounter [facility] note* Diagnosis Acute cough- Primary Shortness of breath Wheezing documented in this encounter [facility] note* 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 documented in this encounter [facility] note* Diagnosis RLQ abdominal pain- Primary Abdominal pain, right lower quadrant documented in this encounter [facility] note* Diagnosis Pelvic pain in female- Primary Unspecified symptom associated with female genital organs Screen for STD (sexually transmitted disease) Screening examination for venereal disease Surveillance of previously prescribed intrauterine contraceptive device documented in this encounter [facility] note* Diagnosis Chronic migraine without aura, with intractable migraine, so stated, with status migrainosus- Primary [facility] Diagnosis Obsessive-compulsive disorder, unspecified type- Primary PTSD (post-traumatic stress disorder) Posttraumatic stress disorder Recurrent major depressive disorder, in partial remission (HCC) Anxiety Anxiety state, unspecified POTS (postural orthostatic tachycardia syndrome) Tachycardia, unspecified Inappropriate sinus node tachycardia Other specified cardiac dysrhythmias Moderate persistent reactive airway disease with acute exacerbation [facility] Diagnosis Dog bite, initial encounter- [facility] Diagnosis 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 POTS (postural orthostatic tachycardia syndrome) Tachycardia, unspecified Inappropriate sinus node tachycardia Other specified cardiac dysrhythmias 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 [facility] Diagnosis 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[facility] 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 Immunosuppression (HCC) Unspecified disorder of immune mechanism [facility] Diagnosis PTSD (post-traumatic [...] constipation and diarrhea [facility] Diagnosis Sore throat- Primary Acute pharyngitis Acute otitis media, left Unspecified otitis media [facility] 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 [facility] Diagnosis Encounter for gynecological examination (general) (routine) without abnormal findings- Primary Screening for STD (sexually transmitted disease) Screening examination for venereal disease [facility] 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 [facility] Diagnosis 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, chronic or unspecified [facility] Diagnosis 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, chronic or unspecified [facility] Diagnosis 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, chronic or unspecified [facility] 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, chronic or unspecified [facility] Diagnosis 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, chronic or unspecified [facility] Diagnosis Treatment not available- Primary Procedure not carried out for other reasons documented in this encounter [facility] note* Diagnosis Laryngitis- Primary Acute laryngitis, without mention of obstruction Cough, unspecified type [facility] Diagnosis Intractable chronic migraine without aura and without status migrainosus- Primary Chronic migraine without aura, with intractable migraine, so stated, without mention of status migrainosus [facility]* Diagnosis Other migraine without status migrainosus, intractable- Primary Abnormal EKG Nonspecific abnormal electrocardiogram (ECG) (EKG) POTS (postural orthostatic tachycardia syndrome) Tachycardia, unspecified Elevated TSH Nonspecific abnormal results of thyroid function study [facility] Diagnosis Acute cystitis without hematuria- Primary Acute cystitis [facility] Diagnosis Upper back pain- Primary [facility] Diagnosis Upper back pain- Primary Other acute gastritis without hemorrhage Fever, unspecified fever cause [facility]* Diagnosis Upper back pain Fever, unspecified fever cause [facility] Diagnosis Obsessive-compulsive disorder, unspecified type [facility] Diagnosis 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, 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 [facility]* Diagnosis Pelvic pain in female- Primary Unspecified symptom associated with female genital organs [facility] Diagnosis Pelvic pain in female Unspecified symptom associated with female genital organs [facility] Diagnosis Atypical facial pain- Primary Atypical face pain Chronic migraine without aura, with intractable migraine, so stated, with status migrainosus [facility] 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 [facility] Diagnosis Screen for STD (sexually transmitted disease)- Primary Screening examination for venereal disease Chronic left shoulder pain Pain in joint, shoulder region [facility] Diagnosis Latex allergy- Primary Allergy to latex Vitamin D deficiency Unspecified vitamin D deficiency Elevated TSH Nonspecific abnormal results of thyroid function study Inappropriate sinus node tachycardia (HCC) Other specified cardiac dysrhythmias [facility]* Diagnosis POTS (postural orthostatic tachycardia syndrome)- Primary Tachycardia, unspecified [facility] Diagnosis Toxic effect of latex, accidental (unintentional), subsequent encounter- Primary Seasonal allergic rhinitis due to pollen Adverse reaction to food, subsequent encounter Oral allergy syndrome, subsequent encounter [facility] Diagnosis Diarrhea, unspecified type- Primary Acute cough Bacterial sinusitis Unspecified sinusitis (chronic) [facility] Diagnosis Abnormal uterine bleeding (AUB)- Primary [facility] Diagnosis Bilateral lower extremity edema- Primary Edema Intermittent diarrhea Class 3 severe obesity due to excess calories with body mass index (BMI) of 50.0 to 59.9 in adult, unspecified whether serious comorbidity present (HCC) Encounter for long-term current use of medication [facility] Diagnosis Encounter for [...] female genital organs [facility] Diagnosis 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, chronic or unspecified Immunosuppression (HCC) Unspecified disorder of immune mechanism Vitamin D deficiency Unspecified vitamin D deficiency [facility] Diagnosis Cervical high risk HPV (human papillomavirus) test positive- Primary Cervical high risk human papillomavirus (HPV) DNA test positive [facility] Diagnosis Cervical high risk HPV (human papillomavirus) test positive- Primary Cervical high risk human papillomavirus (HPV) DNA test positive Nonavalent human papilloma virus (HPV) vaccine for HPV types 6, 11, 16, 18, 31, 33, 45, 52, and 58 administered [facility] Diagnosis Need for prophylactic vaccination/inoculation against viral disease- Primary Need for prophylactic vaccination and inoculation against other viral diseases [facility] Diagnosis Need for prophylactic vaccination/inoculation against viral disease- Primary Need for prophylactic vaccination and inoculation against other viral diseases [facility] Diagnosis 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, chronic or unspecified Chest pain, unspecified type 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, chronic or unspecified Chest pain, unspecified type [facility] Diagnosis Vitamin D deficiency- Primary Unspecified vitamin D deficiency Class 3 severe obesity due to excess calories with body mass index (BMI) of 50.0 to 59.9 in adult, unspecified whether serious comorbidity present (HCC) [facility] Diagnosis Costochondritis Tietze's disease [facility] 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 [facility] 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 [facility] Diagnosis 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, chronic or unspecified Chest pain, unspecified type [facility] Diagnosis Chronic left shoulder pain Pain in joint, shoulder region [facility] Diagnosis Bilateral hip pain- Primary Pain in joint, pelvic region and thigh Chronic pain of both knees POTS (postural orthostatic tachycardia syndrome) Tachycardia, unspecified Arthritis Arthropathy, unspecified, site unspecified Mobility poor Other ill-defined conditions [facility] Diagnosis Bilateral hip pain Pain in joint, pelvic region and thigh Chronic pain of both knees POTS (postural orthostatic tachycardia syndrome) Tachycardia, unspecified Arthritis Arthropathy, unspecified, site unspecified [facility] Diagnosis History of eating disorder- Primary Personal history of other mental disorder Class 3 severe obesity due to excess calories with body mass index (BMI) of 50.0 to 59.9 in adult, unspecified whether serious comorbidity present ([facility]) MAXWELL (obstructive sleep apnea) Obstructive sleep apnea (adult) (pediatric) Dietary counseling Dietary surveillance and counseling POTS (postural orthostatic tachycardia syndrome) Tachycardia, unspecified [facility] Diagnosis Left ankle pain, unspecified chronicity [facility] Diagnosis Acute left ankle pain Foot pain, left Pain in limb [facility] 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, chronic or unspecified documented in this encounter [facility] note* Diagnosis Left wrist pain Pain in joint, forearm Acute pain of left shoulder [facility] Diagnosis Chronic sinusitis, unspecified location [facility] Diagnosis Cough [facility] 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 [facility] 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 Pain in joint, multiple sites Other chest pain Palpitations [facility] 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, chronic or unspecified [facility] 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 [facility] Diagnosis Epigastric abdominal pain- Primary Abdominal pain, epigastric Heartburn [facility] Diagnosis Acute recurrent sinusitis, unspecified location- Primary [facility] 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, chronic or unspecified Immunosuppression (HCC) Unspecified disorder of immune mechanism [facility] Diagnosis Dietary counseling and surveillance- Primary Dietary surveillance and counseling Bulimia nervosa, unspecified severity Eating disorder, unspecified type Obesity, Class III, BMI 40-49.9 (morbid obesity) (HCC) Morbid obesity documented in this [facility] 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 [facility] Diagnosis PVC (premature ventricular contraction)- Primary Other premature beats Panic attacks Panic disorder without agoraphobia Panic disorder with agoraphobia Agoraphobia with panic disorder PTSD (post-traumatic stress disorder) Posttraumatic stress disorder Postural orthostatic tachycardia syndrome (POTS) Pleurisy Pleurisy without mention of effusion or current tuberculosis [facility] Diagnosis Situational anxiety- Primary Other anxiety states documented [facility] this encounter [facility] Diagnosis URI, acute- Primary Acute upper respiratory infections of unspecified site Acute cough Acute cough URI, acute Acute upper respiratory infections of unspecified site documented [facility] this [facility] Diagnosis Acute cough URI, acute Acute upper respiratory infections of unspecified site documented [facility] this [facility] Diagnosis Injury of left wrist, initial encounter- Primary documented [facility] this [facility] Diagnosis Laceration of left hand without foreign body, initial encounter- Primary documented [facility] this [facility] Diagnosis Vitamin D deficiency- Primary Unspecified vitamin D deficiency Other fatigue Myalgias Polyarthritis Unspecified polyarthropathy or polyarthritis, site unspecified Muscle weakness (generalized) Abnormal TSH Other abnormal clinical finding documented [facility] this [facility] Diagnosis Pharyngitis, unspecified etiology- Primary documented in this [facility] Diagnosis Sore throat- Primary Acute pharyngitis Exudative tonsillitis documented [facility] this [facility] Diagnosis 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, 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 documented [facility] Diagnosis SO-JILILAN (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, chronic or unspecified Immunosuppression (HCC) Unspecified disorder of immune mechanism [facility] Diagnosis Acute non-recurrent maxillary sinusitis- Primary Sore throat Acute pharyngitis [facility] Diagnosis Panic disorder with agoraphobia- Primary Agoraphobia with panic disorder Immunosuppression (HCC) 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 Gastroenteritis Other and unspecified noninfectious gastroenteritis and colitis [facility] Diagnosis Gastroenteritis- Primary Other and unspecified noninfectious gastroenteritis and colitis [facility] 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 [facility] Diagnosis Encounter for gynecological examination (general) (routine) without abnormal findings- Primary Screening for cervical cancer Screening for malignant neoplasm of the cervix Encounter for screening for human papillomavirus (HPV) Special screening examination for human papillomavirus (HPV) Screen for STD (sexually transmitted disease) Screening examination for venereal disease Immunocompromised state (HCC) Unspecified immunity deficiency [facility] 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 [facility] Diagnosis Upper back strain, initial encounter- Primary Upper back pain [facility] Diagnosis Upper back strain, initial encounter [facility] 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 [facility] 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 [facility] Diagnosis Low grade squamous intraepithelial lesion on cytologic smear of vagina (LGSIL)- Primary Papanicolaou smear of vagina with low grade squamous intraepithelial lesion (LGSIL) [facility] 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 [facility] Diagnosis Low grade squamous intraepithelial lesion on cytologic smear of vagina (LGSIL)- Primary Papanicolaou smear of vagina with low grade squamous intraepithelial lesion (LGSIL) [facility] Diagnosis Hidradenitis suppurativa- Primary Hidradenitis Recurrent boils Carbuncle and furuncle of unspecified site Vaginal wall cyst Other specified noninflammatory disorder of vagina documented in this encounter [facility] for referral (narrative)* Outpatient Procedure (Routine) - Pending Review Specialty Diagnoses / Procedures Referred By Christie hidalgo Referred To Contact [facility] Diagnoses Encounter for IUD insertion Procedures INSERT INTRAUTERINE DEVICE LEVONORGESTREL IU 52MG 5 YR INSERT INTRAUTERINE DEVICE Ayaan Rowley APRN.CNM [address] [place] [address] [facility] [address] [place] [address] Referral ID Status Reason Start Date Expiration Date Visits Requested Visits Authorized [id number] Pending Review Auto-Generat ed Referral 12/04/2021 12/04/2022 1 1 T [facility] for referral (narrative)* Diagnostic Procedure Only (Routine) - Authorized Specialty Diagnoses / Procedures Referred By Christie hidalgo Referred To Contact [facility] Diagnoses Intrauterine contraceptive device threads lost, initial encounter Procedures US FEMALE PELVIS TRANSVAG US TRANSVAGINAL Ayaan Rowley APRN.CNM [address] [place] [address] [facility] Referral ID Status Reason Start Date Expiration Date Visits Requested Visits Authorized [id number] Authorized Auto-Generat ed Referral 01/20/2022 02/12/2023 1 1 T [facility] for referral (narrative)* Diagnostic Procedure Only (Routine) - Closed Specialty Diagnoses / Procedures Referred By Christie hidalgo Referred To Contact [facility] Diagnoses Intrauterine contraceptive device threads lost, initial encounter Procedures US FEMALE PELVIS TRANSVAG US TRANSVAGINAL Ayaan Rowley APRN.CNM [address] [place] [address] [facility] Referral ID Status Reason Start Date Expiration Date V isits Requested Visits Authorized [id number] Closed Auto-Generate d Referral 01/20/2022 02/12/2023 1 1 [facility] for referral (narrative)* Consultation (Routine) - New Request Specialty Diagnoses / Procedures Referred By Contac t Referred To Contact Gynecology Diagnoses IUD check up Mario Vazquez MBBS [address] [place] [phone] Referral ID Status Reason Start Date Expiration Date V isits Requested Visits Authorized [id number] New Request 04/16/2022 05/11/2023 1 1 [facility] for referral (narrative)* Outpatient Procedure (Routine) - Closed Specialty Diagnoses / Procedures Referred By Contac t Ref[facility] Diagnoses Abnormal EKG POTS (postural orthostatic tachycardia syndrome) Procedures ECG COMPLETE ECG ROUTINE ECG W/LEAST 12 LDS W/I&R Genaro Neri APRN.VPK TEACHER [address] [place] [address] [facility] [address] [place] [address] Referral ID Status Reason Start Date Expiration Date V isits Requested Visits Authorized [id number] Closed Auto-Generate d Referral 05/20/2023 05/19/2024 1 1 * Consult, Test, Treat (Routine) - Authorized Specialty Diagnoses / Procedures Referred By Contac t Referred To Contact Cardiology Diagnoses Abnormal EKG POTS (postural orthostatic tachycardia syndrome) Procedures CONSULT TO CARDIOLOGY OFFICE/OUTPATIENT NEW HIGH MDM 60-74 MINUTES Genaro Neri APRN.VPK TEACHER [address] [place] [address] Referral ID Status Reason Start Date Expiration Date Visits Requested Visits Authorized [id number] Authorized PCP Requested Referral 05/20/2023 05/19/2024 1 1 [facility] for referral (narrative)* Diagnostic Procedure Only (Routine) - Authorized Specialty Diagnoses / Procedures Referred By Contac t Referred To Contact [facility] Diagnoses Pelvic pain in female Procedures PELVIC US WHI US PELVIC NONOBSTETRIC REAL-[place] [address] [place] [address] [facility] [address] [place] [address] Referral ID Status Reason Start Date Expiration Date Visits Requested Visits Authorized [id number] Authorized Auto-Generat ed Referral 07/22/2023 07/21/2024 1 1 [facility] for referral (narrative)* Diagnostic Procedure Only (Routine) - Closed Specialty Diagnoses / Procedures Referred By Contac t Referred To Contact XR IMAGING Diagnoses Chronic left shoulder pain Procedures XR SHOULDER LIMITED 2V AP/TRUE AP LEFT RADEX SHOULDER COMPLETE MINIMUM 2 VIEWS Genaro Neri APRN.VPK TEACHER [address] [place] [address] [place] [address] Referral ID Status Reason Start Date Expiration Date V isits Requested Visits Authorized [id number] Closed Auto-Generate d Referral 10/14/2023 11/12/2024 1 1 * Physical Therapy (Routine) - Pending Review Specialty Diagnoses / Procedures Referred By Contac t Referred To Contact [facility] Diagnoses Chronic left shoulder pain Procedures CONSULT TO PHYSICAL THERAPY PHYSICAL THERAPY EVALUATION HIGH COMPLEX 45 MINS Genaro Neri APRN.CNS [address] [place] [address] [facility] [address] [place] [address] Referral ID Status Reason Start Date Expiration Date Visits Requested Visits Authorized [id number] Pending Review Auto-Generat ed Referral 10/14/2023 10/13/2024 1 1 [facility] for referral (narrative)* Outpatient Procedure (Routine) - New Request Specialty Diagnoses / Procedures Referred By Contac t Referred To Contact [facility] Diagnoses Pelvic pain in female Procedures REMOVE INTRAUTERINE DEVICE REMOVE INTRAUTERINE DEVICE Ayaan Rowley APRN.CNM [address] [place] [address] [address] Referral ID Status Reason Start Date Expiration Date Visits Requested Visits Authorized [id number] New Request Auto-Generat ed Referral 02/27/2024 02/26/2025 1 1 [facility] for referral (narrative)* Outpatient Procedure (Routine) - Authorized Specialty Diagnoses / Procedures Referred By Contac t Referred To Contact [facility] Diagnoses Cervical high risk HPV (human papillomavirus) test positive Procedures COLPOSCOPY COLPOSCOPY CERVIX BX CERVIX & ENDOCRV CURRETAGE Nani Alejandre APRN.SENIOR MORTGAGE UNDERWRITER [address] [place] [address] [address] Referral ID Status Reason Start Date Expiration Date Visits Requested Visits Authorized [id number] Authorized Auto-Generat ed Referral 03/12/2024 03/12/2025 1 1 [facility] for referral (narrative)* Diagnostic Procedure Only (Routine) - Closed Specialty Diagnoses / Procedures Referred By Contac t Referred To Contact XR IMAGING Diagnoses Chronic left shoulder pain Procedures XR SHOULDER LIMITED 2V AP/TRUE AP LEFT RADEX SHOULDER COMPLETE MINIMUM 2 VIEWS Genaro Neri APRN.CNS [address] [place] [address] [place] [address] Referral ID Status Reason Start Date Expiration Date V isits Requested Visits Authorized [id number] Closed Auto-Generate d Referral 10/14/2023 11/12/2024 1 1 [facility] for referral (narrative)* Diagnostic Procedure Only (Routine) - Closed Specialty Diagnoses / Procedures Referred By Contac t Referred To Contact XR IMAGING Diagnoses Left ankle pain, unspecified chronicity Procedures XR ANKLE GENERAL 3V AP/LAT/OBL LEFT RADEX ANKLE COMPLETE MINIMUM 3 VIEWS Irwin Campbell MD [address] [phone] [place] [address] Referral ID Status Reason Start Date Expiration Date V isits Requested Visits Authorized [id number] Closed Auto-Generate d Referral 09/16/2021 10/16/2022 1 1 [facility] for referral (narrative)* Diagnostic Procedure Only (Urgent) - Closed Specialty Diagnoses / Procedures Referred By Contac t Referred To Contact [facility] IMAG[facility] Diagnoses Foot pain, left Procedures XR FOOT GENERAL 3V AP/LAT/OBL LEFT X-RAY FOOT MINIMUM 3 VIEWS Rosaura Santacruz APRN.SENIOR MORTGAGE UNDERWRITER [address] [phone] [place] [address] Referral ID Status Reason Start Date Expiration Date V isits Requested Visits Authorized [id number] Closed Auto-Generate d Referral 08/05/2021 09/04/2022 1 1 * Diagnostic Procedure Only (Urgent) - Closed Specialty Diagnoses / Procedures Referred By Contac t Referred To Contact [facility] IMAG[facility] Diagnoses Acute left ankle pain Procedures XR ANKLE GENERAL 3V AP/LAT/OBL LEFT X-RAY ANKLE MINIMUM 3 VIEWS Rosaura Santacruz APRN.SENIOR MORTGAGE UNDERWRITER [address] [place] [address] [place] [address] Referral ID Status Reason Start Date Expiration Date V isits Requested Visits Authorized [id number] Closed Auto-Generate d Referral 08/05/2021 09/04/2022 1 1 [facility] for referral (narrative)* Diagnostic Procedure Only (Routine) - Closed Specialty Diagnoses / Procedures Referred By Contac t Referred To Contact CT IMAGING Diagnoses Chronic sinusitis, unspecified location Procedures CT SINUS WO IVCON CT [facility] [place] [address] [place] [address] [place] [address] Referral ID Status Reason Start Date Expiration Date V isits Requested Visits Authorized [id number] Closed Auto-Generate d Referral 06/27/2020 08/25/2020 3 3 [facility] for visit Narrative* Diagnostic Procedure Only (Routine) - Closed Specialty Diagnoses / Procedures Referred By Contac t Referred To Contact [facility] Diagnoses Intrauterine contraceptive device threads lost, initial encounter Procedures US FEMALE PELVIS TRANSVAG US TRANSVAGINAL Ayaan Rowley APRN.CNM [address] [place] [address] [facility] Referral ID Status Reason Start Date Expiration Date V isits Requested Visits Authorized [id number] Closed Auto-Generate d Referral 01/20/2022 02/12/2023 1 1 [facility] for visit Narrative* Diagnostic Procedure Only (Routine) - Closed Specialty Diagnoses / Procedures Referred By Contac t Referred To Contact [facility] Diagnoses Pelvic pain in female Procedures PELVIC US WHI US PELVIC NONOBSTETRIC REAL-[place] [address] [place] [address] [facility] [address] [place] [address] Referral ID Status Reason Start Date Expiration Date V isits Requested Visits Authorized [id number] Closed Auto-Generate d Referral 07/22/2023 07/21/2024 1 1 [facility] for visit Narrative* Diagnostic Procedure Only (Routine) - Closed Specialty Diagnoses / Procedures Referred By Contac t Referred To Contact Radiology / [facility] Diagnoses ML Procedures XR CHEST Silvia Tucker MD [address] [place] [address] [facility] [address] [place] [address] Referral ID Status Reason Start Date Expiration Date Visits Re quested Visits Authorized [id number] Closed 04/02/2024 08/14/2024 1 1 [facility] for visit Narrative* Diagnostic Procedure Only (Routine) - Closed Specialty Diagnoses / Procedures Referred By Contac t Referred To Contact X[facility] IMAGING Diagnoses Chronic left shoulder pain Procedures XR SHOULDER [id number] AP/TRUE AP RIGHT RADEX SHOULDER COMPLETE MINIMUM 2 VIEWS Genaro Neri, EDUCATION ANALYST.VPK TEACHER [address] [place] [address] [place] [address] Referral ID Status Reason Start Date Expiration Date V isits Requested Visits Authorized [id number] Closed Auto-Generate d Referral 10/14/2023 11/12/2024 1 1 [facility] for visit Narrative* Diagnostic Procedure Only (Routine) - Closed Specialty Diagnoses / Procedures Referred By Contac t Referred To Contact XR IMAGING Diagnoses Left ankle pain, unspecified chronicity Procedures XR ANKLE GENERAL 3V AP/LAT/OBL LEFT RADEX ANKLE COMPLETE MINIMUM 3 VIEWS Irwin Campbell MD [address] [place] [address] [place] [address] Referral ID Status Reason Start Date Expiration Date V isits Requested Visits Authorized [id number] Closed Auto-Generate d Referral 09/16/2021 10/16/2022 1 1 [facility] for visit Narrative* Diagnostic Procedure Only (Urgent) - Closed Specialty Diagnoses / Procedures Referred By Contac t Referred To Contact XR IMAGING Diagnoses Foot pain, left Procedures XR FOOT GENERAL 3V AP/LAT/OBL LEFT X-RAY FOOT MINIMUM 3 VIEWS Rosaura Santacruz, EDUCATION ANALYST.SENIOR MORTGAGE UNDERWRITER [address] [place] [address] [place] [address] Referral ID Status Reason Start Date Expiration Date V isits Requested Visits Authorized [id number] Closed Auto-Generate d Referral 08/05/2021 09/04/2022 1 1 [facility] for visit Narrative* Diagnostic Procedure Only (Urgent) - Closed Specialty Diagnoses / Procedures Referred By Contac t Referred To Contact XR IMAGING Diagnoses Injury of left wrist, initial encounter Procedures XR WRIST GENERAL 3V PA/LAT/OBL LEFT RADEX WRIST COMPLETE MINIMUM 3 VIEWS Steven Harris, EDUCATION ANALYST.SENIOR MORTGAGE UNDERWRITER [address] [place] [address] Phone: tel: fax: [place] [address] Referral ID Status Reason Start Date Expiration Date V isits Requested Visits Authorized [id number] Closed Auto-Generate d Referral 10/24/2024 11/23/2025 1 1 [facility] for visit Narrative* Diagnostic Procedure Only (Routine) - Closed Specialty Diagnoses / Procedures Referred By Contac t Referred To Contact XR IMAGING Diagnoses Upper back strain, initial encounter Procedures XR THORACIC LIMITED 2V AP/LAT RADEX SPINE THORACIC 2 VIEWS Jimy Kraft, EDUCATION ANALYST.SENIOR MORTGAGE UNDERWRITER [address] [place] [address] Phone: tel: fax: [place] [address] Referral ID Status Reason Start Date Expiration Date V isits Requested Visits Authorized [id number] Closed Auto-Generate d Referral 03/11/2025 04/10/2026 1 1 [facility] for visit Narrative* Outpatient Procedure (Routine) - Closed Specialty Diagnoses / Procedures Referred By Contac t Referred To Contact [facility] Diagnoses Low grade squamous intraepithelial lesion on cytologic smear of vagina (LGSIL) Procedures COLPOSCOPY COLPOSCOPY CERVIX BX CERVIX & ENDOCRV Michelle Barahona, EDUCATION ANALYST.SENIOR MORTGAGE UNDER[place]ITER [place] [address] Phone: tel: fax: [facility] [address] [place] [address] Referral ID Status Reason Start Date Expiration Date V isits Requested Visits Authorized [id number] Closed Auto-Generate d Referral 02/27/2025 02/27/2026 1 1 [facility] Summary Purpose Family History No Family [...] EXTREM W/O CONTRAST MATRL Faustina Carcamo MD [address] [place] [address] Mr Imaging Referral ID Status Reason Start Date Expiration Date V isits Requested Visits Authorized [id number] Closed Auto-Generate d Referral 09/22/2021 10/22/2022 1 1 Specialty Diagnoses / Procedures Referred By Contac t Referred To Contact Podiatry Diagnoses Left ankle strain, sequela Procedures CONSULT TO PODIATRY OFFICE/OUTPATIENT [facility] 60-74 MINUTES Faustina Carcamo MD [address] [place] [address] Radha Steen [address] [place] [address] Referral ID Status Reason Start Date Expiration Date V isits Requested Visits Authorized [id number] Closed PCP Requested Referral 09/22/2021 09/22/2022 1 1 Specialty Diagnoses / Procedures Referred By Contac t Referred To Contact Diagnoses RLQ abdominal pain Procedures CT ABDOMEN/PELVIS WITH CONTRAST CHG CT SCAN,ABDOMENT AND PELVIS,W CONTRAST Marina Goodrich, EDUCATION ANALYST-SENIOR MORTGAGE UNDERWRITER [address] [place] [address] Referral ID Status Reason Start Date Expiration Date Visits Re quested Visits Authorized [id number] Closed 06/28/2022 07/23/2023 1 1 Specialty Diagnoses / Procedures Referred By Contac t Referred To Contact Diagnoses Vitamin D deficiency Class 3 severe obesity due to excess calories with body mass index (BMI) of 50.0 to 59.9 in adult, unspecified whether serious comorbidity present (HCC) Procedures CONSULT TO PSYCHIATRY OFFICE/OUTPATIENT [facility] 60 MINUTES Genaro Neri APRN.VPK TEACHER [address] [place] [address] Referral ID Status Reason Start Date Expiration Date Visits Requested Visits Authorized [id number] Pending Review PCP Requested Referral 04/03/2024 04/03/2025 1 1 Specialty Diagnoses / Procedures Referred By Contac t Referred To Contact Nutrition Diagnoses Class 3 severe obesity due to excess calories with body mass index (BMI) of 50.0 to 59.9 in adult, unspecified whether serious comorbidity present (HCC) Procedures CONSULT TO NUTRITION THERAPY MEDICAL NUTRITION ASSMT&IVNTJ INDIV EACH [address] AndrewGenaro, EDUCATION ANALYST.VPK TEACHER [address] [place] [address] Referral ID Status Reason Start Date Expiration Date Visits Requested Visits Authorized [id number] Authorized PCP Requested Referral 04/03/2024 04/03/2025 1 4 Additional Source Comments INFORMATION SOURCE (unrecogn ized section and content) DATE CREATED AUTHOR 11/03/2021 [facility] DATE CREATED AUTHOR AUTHOR'S ORGANIZ ATION 05/15/2022 [facility] DATE CREATED AUTHOR AUTHOR'S ORGANIZ ATION 07/24/2022 [facility] DATE CREATED AUTHOR AUTHOR'S ORGANIZ ATION 08/06/2022 [facility] DATE CREATED AUTHOR AUTHOR'S ORGANIZ ATION 09/21/2022 [facility] DATE CREATED AUTHOR AUTHOR'S ORGANIZ ATION 05/29/2023 [facility] DATE CREATED AUTHOR AUTHOR'S ORGANIZ ATION 06/01/2023 [facility] DATE CREATED AUTHOR AUTHOR'S ORGANIZ ATION 08/04/2024 [facility] DATE CREATED AUTHOR AUTHOR'S ORGANIZ ATION 06/26/2025 [facility] DATE CREATED AUTHOR AUTHOR'S ORGANIZ ATION 06/27/2025 [facility] Source Comments (unrecognize d section and content) In the event this informatio n is protected by the Federal Confidentiality of Alcohol and Drug Abuse Patient Records regulations: The Federal rules restrict any use of the information to criminally investigate or prosecute any alcohol or drug abuse patient.[facility] HospitalIn the event this information is protected by the Federal Confidentiality of Alcohol and Drug Abuse Patient Records regulations: The Federal rules restrict any use of the information to criminally investigate or prosecute any alcohol or drug abuse patient.[facility] HospitalIn the event this information is protected by the Federal Confidentiality of Alcohol and Drug Abuse Patient Records regulations: The Federal rules restrict any use of the information to criminally investigate or prosecute any alcohol or drug abuse patient.[facility] HospitalIn the event this information is protected by the Federal Confidentiality of Alcohol and Drug Abuse Patient Records regulations: The Federal rules restrict any use of the information to criminally investigate or prosecute any alcohol or drug abuse patient.[facility] HospitalIn the event this information is protected by the Federal Confidentiality of Alcohol and Drug Abuse Patient Records regulations: The Federal rules restrict any use of the information to criminally investigate or prosecute any alcohol or drug abuse patient.[facility] HospitalIn the event this information is protected by the Federal Confidentiality of Alcohol and Drug Abuse Patient Records regulations: The Federal rules restrict any use of the information to criminally investigate or prosecute any alcohol or drug abuse patient.[facility] HospitalIn the event this information is protected by the Federal Confidentiality of Alcohol and Drug Abuse Patient Records regulations: The Federal rules restrict any use of the information to criminally investigate or prosecute any alcohol or drug abuse patient.[facility] HospitalIn the event this information is protected by the Federal Confidentiality of Alcohol and Drug Abuse Patient Records regulations: The Federal rules restrict any use of the information to criminally investigate or prosecute any alcohol or drug abuse patient.[facility] HospitalIn the event this information is protected by the Federal Confidentiality of Alcohol and Drug Abuse Patient Records regulations: The Federal rules restrict any use of the information to criminally investigate or prosecute any alcohol or drug abuse patient.[facility] HospitalIn the event this information is protected by the Federal Confidentiality of Alcohol and Drug Abuse Patient Records regulations: The Federal rules restrict any use of the information to criminally investigate or prosecute any alcohol or drug abuse patient.[facility] HospitalIn the event this information is protected by the Federal Confidentiality of Alcohol and Drug Abuse Patient Records regulations: The Federal rules restrict any use of the information to criminally investigate or prosecute any alcohol or drug abuse patient.[facility] HospitalIn the event this information is protected by the Federal Confidentiality of Alcohol and Drug Abuse Patient Records regulations: The Federal rules restrict any use of the information to criminally investigate or prosecute any alcohol or drug abuse patient.[facility] HospitalIn the event this information is protected by the Federal Confidentiality of Alcohol and Drug Abuse Patient Records regulations: The Federal rules restrict any use of the information to criminally investigate or prosecute any alcohol or drug abuse patient.[facility] HospitalIn the event this information is protected by the Federal Confidentiality of Alcohol and Drug Abuse Patient Records regulations: The Federal rules restrict any use of the information to criminally investigate or prosecute any alcohol or drug abuse patient.[facility] HospitalIn the event this information is protected by the Federal Confidentiality of Alcohol and Drug Abuse Patient Records regulations: The Federal rules restrict any use of the information to criminally investigate or prosecute any alcohol or drug abuse patient.[facility] HospitalIn the event this information is protected by the Federal Confidentiality of Alcohol and Drug Abuse Patient Records regulations: The Federal rules restrict any use of the information to criminally investigate or prosecute any alcohol or drug abuse patient.[facility] HospitalIn the event this information is protected by the Federal Confidentiality of Alcohol and Drug Abuse Patient Records regulations: The Federal rules restrict any use of the information to criminally investigate or prosecute any alcohol or drug abuse patient.[facility] HospitalIn the event this information is protected by the Federal Confidentiality of Alcohol and Drug Abuse Patient Records regulations: The Federal rules restrict any use of the information to criminally investigate or prosecute any alcohol or drug abuse patient.[facility] HospitalIn the event this information is protected by the Federal Confidentiality of Alcohol and Drug Abuse Patient Records regulations: The Federal rules restrict any use of the information to criminally investigate or prosecute any alcohol or drug abuse patient.[facility] HospitalIn the event this information is protected by the Federal Confidentiality of Alcohol and Drug Abuse Patient Records regulations: The Federal rules restrict any use of the information to criminally investigate or prosecute any alcohol or drug abuse patient.[facility] HospitalIn the event this information is protected by the Federal Confidentiality of Alcohol and Drug Abuse Patient Records regulations: The Federal rules restrict any use of the information to criminally investigate or prosecute any alcohol or drug abuse patient.[facility] HospitalIn the event this information is protected by the Federal Confidentiality of Alcohol and Drug Abuse Patient Records regulations: The Federal rules restrict any use of the information to criminally investigate or prosecute any alcohol or drug abuse patient.[facility] HospitalIn the event this information is protected by the Federal Confidentiality of Alcohol and Drug Abuse Patient Records regulations: The Federal rules restrict any use of the information to criminally investigate or prosecute any alcohol or drug abuse patient.[facility] HospitalIn the event this information is protected by the Federal Confidentiality of Alcohol and Drug Abuse Patient Records regulations: The Federal rules restrict any use of the information to criminally investigate or prosecute any alcohol or drug abuse patient.[facility] HospitalIn the event this information is protected by the Federal Confidentiality of Alcohol and Drug Abuse Patient Records regulations: The Federal rules restrict any use of the information to criminally investigate or prosecute any alcohol or drug abuse patient.[facility] HospitalIn the event this information is protected by the Federal Confidentiality of Alcohol and Drug Abuse Patient Records regulations: The Federal rules restrict any use of the information to criminally investigate or prosecute any alcohol or drug abuse patient.[facility] HospitalIn the event this information is protected by the Federal Confidentiality of Alcohol and Drug Abuse Patient Records regulations: The Federal rules restrict any use of the information to criminally investigate or prosecute any alcohol or drug abuse patient.[facility] HospitalIn the event this information is protected by the Federal Confidentiality of Alcohol and Drug Abuse Patient Records regulations: The Federal rules restrict any use of the information to criminally investigate or prosecute any alcohol or drug abuse patient.[facility] HospitalIn the event this information is protected by the Federal Confidentiality of Alcohol and Drug Abuse Patient Records regulations: The Federal rules restrict any use of the information to criminally investigate or prosecute any alcohol or drug abuse patient.[facility] HospitalIn the event this information is protected by the Federal Confidentiality of Alcohol and Drug Abuse Patient Records regulations: The Federal rules restrict any use of the information to criminally investigate or prosecute any alcohol or drug abuse patient.[facility] HospitalIn the event this information is protected by the Federal Confidentiality of Alcohol and Drug Abuse Patient Records regulations: The Federal rules restrict any use of the information to criminally investigate or prosecute any alcohol or drug abuse patient.[facility] HospitalIn the event this information is protected by the Federal Confidentiality of Alcohol and Drug Abuse Patient Records regulations: The Federal rules restrict any use of the information to criminally investigate or prosecute any alcohol or drug abuse patient.[facility] HospitalIn the event this information is protected by the Federal Confidentiality of Alcohol and Drug Abuse Patient Records regulations: The Federal rules restrict any use of the information to criminally investigate or prosecute any alcohol or drug abuse patient.[facility] HospitalIn the event this information is protected by the Federal Confidentiality of Alcohol and Drug Abuse Patient Records regulations: The Federal rules restrict any use of the information to criminally investigate or prosecute any alcohol or drug abuse patient.[facility] HospitalIn the event this information is protected by the Federal Confidentiality of Alcohol and Drug Abuse Patient Records regulations: The Federal rules restrict any use of the information to criminally investigate or prosecute any alcohol or drug abuse patient.[facility] HospitalIn the event this information is protected by the Federal Confidentiality of Alcohol and Drug Abuse Patient Records regulations: The Federal rules restrict any use of the information to criminally investigate or prosecute any alcohol or drug abuse patient.[facility] HospitalIn the event this information is protected by the Federal Confidentiality of Alcohol and Drug Abuse Patient Records regulations: The Federal rules restrict any use of the information to criminally investigate or prosecute any alcohol or drug abuse patient.[facility] HospitalIn the event this information is protected by the Federal Confidentiality of Alcohol and Drug Abuse Patient Records regulations: The Federal rules restrict any use of the information to criminally investigate or prosecute any alcohol or drug abuse patient.[facility] HospitalIn the event this information is protected by the Federal Confidentiality of Alcohol and Drug Abuse Patient Records regulations: The Federal rules restrict any use of the information to criminally investigate or prosecute any alcohol or drug abuse patient.[facility] HospitalIn the event this information is protected by the Federal Confidentiality of Alcohol and Drug Abuse Patient Records regulations: The Federal rules restrict any use of the information to criminally investigate or prosecute any alcohol or drug abuse patient.[facility] HospitalIn the event this information is protected by the Federal Confidentiality of Alcohol and Drug Abuse Patient Records regulations: The Federal rules restrict any use of the information to criminally investigate or prosecute any alcohol or drug abuse patient.[facility] HospitalIn the event this information is protected by the Federal Confidentiality of Alcohol and Drug Abuse Patient Records regulations: The Federal rules restrict any use of the information to criminally investigate or prosecute any alcohol or drug abuse patient.[facility] HospitalIn the event this information is protected by the Federal Confidentiality of Alcohol and Drug Abuse Patient Records regulations: The Federal rules restrict any use of the information to criminally investigate or prosecute any alcohol or drug abuse patient.[facility] HospitalIn the event this information is protected by the Federal Confidentiality of Alcohol and Drug Abuse Patient Records regulations: The Federal rules restrict any use of the information to criminally investigate or prosecute any alcohol or drug abuse patient.[facility] HospitalIn the event this information is protected by the Federal Confidentiality of Alcohol and Drug Abuse Patient Records regulations: The Federal rules restrict any use of the information to criminally investigate or prosecute any alcohol or drug abuse patient.[facility] HospitalIn the event this information is protected by the Federal Confidentiality of Alcohol and Drug Abuse Patient Records regulations: The Federal rules restrict any use of the information to criminally investigate or prosecute any alcohol or drug abuse patient.[facility] HospitalIn the event this information is protected by the Federal Confidentiality of Alcohol and Drug Abuse Patient Records regulations: The Federal rules restrict any use of the information to criminally investigate or prosecute any alcohol or drug abuse patient.[facility] HospitalIn the event this information is protected by the Federal Confidentiality of Alcohol and Drug Abuse Patient Records regulations: The Federal rules restrict any use of the information to criminally investigate or prosecute any alcohol or drug abuse patient.[facility] HospitalIn the event this information is protected by the Federal Confidentiality of Alcohol and Drug Abuse Patient Records regulations: The Federal rules restrict any use of the information to criminally investigate or prosecute any alcohol or drug abuse patient.[facility] HospitalIn the event this information is protected by the Federal Confidentiality of Alcohol and Drug Abuse Patient Records regulations: The Federal rules restrict any use of the information to criminally investigate or prosecute any alcohol or drug abuse patient.[facility] HospitalIn the event this information is protected by the Federal Confidentiality of Alcohol and Drug Abuse Patient Records regulations: The Federal rules restrict any use of the information to criminally investigate or prosecute any alcohol or drug abuse patient.[facility] HospitalIn the event this information is protected by the Federal Confidentiality of Alcohol and Drug Abuse Patient Records regulations: The Federal rules restrict any use of the information to criminally investigate or prosecute any alcohol or drug abuse patient.[facility] HospitalIn the event this information is protected by the Federal Confidentiality of Alcohol and Drug Abuse Patient Records regulations: The Federal rules restrict any use of the information to criminally investigate or prosecute any alcohol or drug abuse patient.[facility] HospitalIn the event this information is protected by the Federal Confidentiality of Alcohol and Drug Abuse Patient Records regulations: The Federal rules restrict any use of the information to criminally investigate or prosecute any alcohol or drug abuse patient.[facility] HospitalIn the event this information is protected by the Federal Confidentiality of Alcohol and Drug Abuse Patient Records regulations: The Federal rules restrict any use of the information to criminally investigate or prosecute any alcohol or drug abuse patient.[facility] HospitalIn the event this information is protected by the Federal Confidentiality of Alcohol and Drug Abuse Patient Records regulations: The Federal rules restrict any use of the information to criminally investigate or prosecute any alcohol or drug abuse patient.[facility] HospitalIn the event this information is protected by the Federal Confidentiality of Alcohol and Drug Abuse Patient Records regulations: The Federal rules restrict any use of the information to criminally investigate or prosecute any alcohol or drug abuse patient.[facility] HospitalIn the event this information is protected by the Federal Confidentiality of Alcohol and Drug Abuse Patient Records regulations: The Federal rules restrict any use of the information to criminally investigate or prosecute any alcohol or drug abuse patient.[facility] HospitalIn the event this information is protected by the Federal Confidentiality of Alcohol and Drug Abuse Patient Records regulations: The Federal rules restrict any use of the information to criminally investigate or prosecute any alcohol or drug abuse patient.[facility] HospitalIn the event this information is protected by the Federal Confidentiality of Alcohol and Drug Abuse Patient Records regulations: The Federal rules restrict any use of the information to criminally investigate or prosecute any alcohol or drug abuse patient.[facility] HospitalIn the event this information is protected by the Federal Confidentiality of Alcohol and Drug Abuse Patient Records regulations: The Federal rules restrict any use of the information to criminally investigate or prosecute any alcohol or drug abuse patient.[facility] HospitalIn the event this information is protected by the Federal Confidentiality of Alcohol and Drug Abuse Patient Records regulations: The Federal rules restrict any use of the information to criminally investigate or prosecute any alcohol or drug abuse patient.[facility] HospitalIn the event this information is protected by the Federal Confidentiality of Alcohol and Drug Abuse Patient Records regulations: The Federal rules restrict any use of the information to criminally investigate or prosecute any alcohol or drug abuse patient.[facility] HospitalIn the event this information is protected by the Federal Confidentiality of Alcohol and Drug Abuse Patient Records regulations: The Federal rules restrict any use of the information to criminally investigate or prosecute any alcohol or drug abuse patient.[facility] HospitalIn the event this information is protected by the Federal Confidentiality of Alcohol and Drug Abuse Patient Records regulations: The Federal rules restrict any use of the information to criminally investigate or prosecute any alcohol or drug abuse patient.[facility] HospitalIn the event this information is protected by the Federal Confidentiality of Alcohol and Drug Abuse Patient Records regulations: The Federal rules restrict any use of the information to criminally investigate or prosecute any alcohol or drug abuse patient.[facility] HospitalIn the event this information is protected by the Federal Confidentiality of Alcohol and Drug Abuse Patient Records regulations: The Federal rules restrict any use of the information to criminally investigate or prosecute any alcohol or drug abuse patient.[facility] HospitalIn the event this information is protected by the Federal Confidentiality of Alcohol and Drug Abuse Patient Records regulations: The Federal rules restrict any use of the information to criminally investigate or prosecute any alcohol or drug abuse patient.[facility] HospitalIn the event this information is protected by the Federal Confidentiality of Alcohol and Drug Abuse Patient Records regulations: The Federal rules restrict any use of the information to criminally investigate or prosecute any alcohol or drug abuse patient.[facility] HospitalIn the event this information is protected by the Federal Confidentiality of Alcohol and Drug Abuse Patient Records regulations: The Federal rules restrict any use of the information to criminally investigate or prosecute any alcohol or drug abuse patient.[facility] HospitalIn the event this information is protected by the Federal Confidentiality of Alcohol and Drug Abuse Patient Records regulations: The Federal rules restrict any use of the information to criminally investigate or prosecute any alcohol or drug abuse patient.[facility] HospitalIn the event this information is protected by the Federal Confidentiality of Alcohol and Drug Abuse Patient Records regulations: The Federal rules restrict any use of the information to criminally investigate or prosecute any alcohol or drug abuse patient.[facility] HospitalIn the event this information is protected by the Federal Confidentiality of Alcohol and Drug Abuse Patient Records regulations: The Federal rules restrict any use of the information to criminally investigate or prosecute any alcohol or drug abuse patient.[facility] HospitalIn the event this information is protected by the Federal Confidentiality of Alcohol and Drug Abuse Patient Records regulations: The Federal rules restrict any use of the information to criminally investigate or prosecute any alcohol or drug abuse patient.[facility] HospitalIn the event this information is protected by the Federal Confidentiality of Alcohol and Drug Abuse Patient Records regulations: The Federal rules restrict any use of the information to criminally investigate or prosecute any alcohol or drug abuse patient.[facility] HospitalIn the event this information is protected by the Federal Confidentiality of Alcohol and Drug Abuse Patient Records regulations: The Federal rules restrict any use of the information to criminally investigate or prosecute any alcohol or drug abuse patient.[facility] HospitalIn the event this information is protected by the Federal Confidentiality of Alcohol and Drug Abuse Patient Records regulations: The Federal rules restrict any use of the information to criminally investigate or prosecute any alcohol or drug abuse patient.[facility] HospitalIn the event this information is protected by the Federal Confidentiality of Alcohol and Drug Abuse Patient Records regulations: The Federal rules restrict any use of the information to criminally investigate or prosecute any alcohol or drug abuse patient.[facility] HospitalIn the event this information is protected by the Federal Confidentiality of Alcohol and Drug Abuse Patient Records regulations: The Federal rules restrict any use of the information to criminally investigate or prosecute any alcohol or drug abuse patient.[facility] HospitalIn the event this information is protected by the Federal Confidentiality of Alcohol and Drug Abuse Patient Records regulations: The Federal rules restrict any use of the information to criminally investigate or prosecute any alcohol or drug abuse patient.[facility] HospitalIn the event this information is protected by the Federal Confidentiality of Alcohol and Drug Abuse Patient Records regulations: The Federal rules restrict any use of the information to criminally investigate or prosecute any alcohol or drug abuse patient.[facility] HospitalIn the event this information is protected by the Federal Confidentiality of Alcohol and Drug Abuse Patient Records regulations: The Federal rules restrict any use of the information to criminally investigate or prosecute any alcohol or drug abuse patient.[facility] HospitalIn the event this information is protected by the Federal Confidentiality of Alcohol and Drug Abuse Patient Records regulations: The Federal rules restrict any use of the information to criminally investigate or prosecute any alcohol or drug abuse patient.[facility] [facility]In the event this information is protected by the Federal Confidentiality of Alcohol and Drug Abuse Patient Records regulations: The Federal rules restrict any use of the information to criminally investigate or prosecute any alcohol or drug abuse patient.[facility] HospitalIn the event this information is protected by the Federal Confidentiality of Alcohol and Drug Abuse Patient Records regulations: The Federal rules restrict any use of the information to criminally investigate or prosecute any alcohol or drug abuse patient.[facility] HospitalIn the event this information is protected by the Federal Confidentiality of Alcohol and Drug Abuse Patient Records regulations: The Federal rules restrict any use of the information to criminally investigate or prosecute any alcohol or drug abuse patient.[facility] [place] HospitalIn the event this information is protected by the Federal Confidentiality of Alcohol and Drug Abuse Patient Records regulations: The Federal rules restrict any use of the information to criminally investigate or prosecute any alcohol or drug abuse patient.[facility] [place] HospitalIn the event this information is protected by the Federal Confidentiality of Alcohol and Drug Abuse Patient Records regulations: The Federal rules restrict any use of the information to criminally investigate or prosecute any alcohol or drug abuse patient.[facility] HospitalIn the event this information is protected by the Federal Confidentiality of Alcohol and Drug Abuse Patient Records regulations: The Federal rules restrict any use of the information to criminally investigate or prosecute any alcohol or drug abuse patient.[facility] HospitalIn the event this information is protected by the Federal Confidentiality of Alcohol and Drug Abuse Patient Records regulations: The Federal rules restrict any use of the information to criminally investigate or prosecute any alcohol or drug abuse patient.[facility] HospitalIn the event this information is protected by the Federal Confidentiality of Alcohol and Drug Abuse Patient Records regulations: The Federal rules restrict any use of the information to criminally investigate or prosecute any alcohol or drug abuse patient.[facility] [place] HospitalIn the event this information is protected by the Federal Confidentiality of Alcohol and Drug Abuse Patient Records regulations: The Federal rules restrict any use of the information to criminally investigate or prosecute any alcohol or drug abuse patient.[facility] [place] HospitalIn the event this information is protected by the Federal Confidentiality of Alcohol and Drug Abuse Patient Records regulations: The Federal rules restrict any use of the information to criminally investigate or prosecute any alcohol or drug abuse patient.[facility] [place] HospitalIn the event this information is protected by the Federal Confidentiality of Alcohol and Drug Abuse Patient Records regulations: The Federal rules restrict any use of the information to criminally investigate or prosecute any alcohol or drug abuse patient.[facility] [place] HospitalIn the event this information is protected by the Federal Confidentiality of Alcohol and Drug Abuse Patient Records regulations: The Federal rules restrict any use of the information to criminally investigate or prosecute any alcohol or drug abuse patient.[facility] [place] HospitalIn the event this information is protected by the Federal Confidentiality of Alcohol and Drug Abuse Patient Records regulations: The Federal rules restrict any use of the information to criminally investigate or prosecute any alcohol or drug abuse patient.[facility] [place] HospitalIn the event this information is protected by the Federal Confidentiality of Alcohol and Drug Abuse Patient Records regulations: The Federal rules restrict any use of the information to criminally investigate or prosecute any alcohol or drug abuse patient.[facility] [place] HospitalIn the event this information is protected by the Federal Confidentiality of Alcohol and Drug Abuse Patient Records regulations: The Federal rules restrict any use of the information to criminally investigate or prosecute any alcohol or drug abuse patient.[facility] [place] HospitalIn the event this information is protected by the Federal Confidentiality of Alcohol and Drug Abuse Patient Records regulations: The Federal rules restrict any use of the information to criminally investigate or prosecute any alcohol or drug abuse patient.[facility] [place] HospitalIn the event this information is protected by the Federal Confidentiality of Alcohol and Drug Abuse Patient Records regulations: The Federal rules restrict any use of the information to criminally investigate or prosecute any alcohol or drug abuse patient.[facility] [place] HospitalIn the event this information is protected by the Federal Confidentiality of Alcohol and Drug Abuse Patient Records regulations: The Federal rules restrict any use of the information to criminally investigate or prosecute any alcohol or drug abuse patient.[facility] [place] HospitalIn the event this information is protected by the Federal Confidentiality of Alcohol and Drug Abuse Patient Records regulations: The Federal rules restrict any use of the information to criminally investigate or prosecute any alcohol or drug abuse patient.[facility] [place] HospitalIn the event this information is protected by the Federal Confidentiality of Alcohol and Drug Abuse Patient Records regulations: The Federal rules restrict any use of the information to criminally investigate or prosecute any alcohol or drug abuse patient.[facility] [place] HospitalIn the event this information is protected by the Federal Confidentiality of Alcohol and Drug Abuse Patient Records regulations: The Federal rules restrict any use of the information to criminally investigate or prosecute any alcohol or drug abuse patient.[facility] [place] HospitalIn the event this information is protected by the Federal Confidentiality of Alcohol and Drug Abuse Patient Records regulations: The Federal rules restrict any use of the information to criminally investigate or prosecute any alcohol or drug abuse patient.[facility] [place] HospitalIn the event this information is protected by the Federal Confidentiality of Alcohol and Drug Abuse Patient Records regulations: The Federal rules restrict any use of the information to criminally investigate or prosecute any alcohol or drug abuse patient.[facility] [place] HospitalIn the event this information is protected by the Federal Confidentiality of Alcohol and Drug Abuse Patient Records regulations: The Federal rules restrict any use of the information to criminally investigate or prosecute any alcohol or drug abuse patient.[facility] [place] HospitalIn the event this information is protected by the Federal Confidentiality of Alcohol and Drug Abuse Patient Records regulations: The Federal rules restrict any use of the information to criminally investigate or prosecute any alcohol or drug abuse patient.[facility] [place] HospitalIn the event this information is protected by the Federal Confidentiality of Alcohol and Drug Abuse Patient Records regulations: The Federal rules restrict any use of the information to criminally investigate or prosecute any alcohol or drug abuse patient.[facility] [place] HospitalIn the event this information is protected by the Federal Confidentiality of Alcohol and Drug Abuse Patient Records regulations: The Federal rules restrict any use of the information to criminally investigate or prosecute any alcohol or drug abuse patient.[facility] [place] HospitalIn the event this information is protected by the Federal Confidentiality of Alcohol and Drug Abuse Patient Records regulations: The Federal rules restrict any use of the information to criminally investigate or prosecute any alcohol or drug abuse patient.[facility] [place] HospitalIn the event this information is protected by the Federal Confidentiality of Alcohol and Drug Abuse Patient Records regulations: The Federal rules restrict any use of the information to criminally investigate or prosecute any alcohol or drug abuse patient.[facility] [place] HospitalIn the event this information is protected by the Federal Confidentiality of Alcohol and Drug Abuse Patient Records regulations: The Federal rules restrict any use of the information to criminally investigate or prosecute any alcohol or drug abuse patient.[facility] [place] HospitalIn the event this information is protected by the Federal Confidentiality of Alcohol and Drug Abuse Patient Records regulations: The Federal rules restrict any use of the information to criminally investigate or prosecute any alcohol or drug abuse patient.[facility] [place] HospitalIn the event this information is protected by the Federal Confidentiality of Alcohol and Drug Abuse Patient Records regulations: The Federal rules restrict any use of the information to criminally investigate or prosecute any alcohol or drug abuse patient.[facility] [place] HospitalIn the event this information is protected by the Federal Confidentiality of Alcohol and Drug Abuse Patient Records regulations: The Federal rules restrict any use of the information to criminally investigate or prosecute any alcohol or drug abuse patient.[facility] [place] HospitalIn the event this information is protected by the Federal Confidentiality of Alcohol and Drug Abuse Patient Records regulations: The Federal rules restrict any use of the information to criminally investigate or prosecute any alcohol or drug abuse patient.[facility] [place] HospitalIn the event this information is protected by the Federal Confidentiality of Alcohol and Drug Abuse Patient Records regulations: The Federal rules restrict any use of the information to criminally investigate or prosecute any alcohol or drug abuse patient.[facility] [place] HospitalIn the event this information is protected by the Federal Confidentiality of Alcohol and Drug Abuse Patient Records regulations: The Federal rules restrict any use of the information to criminally investigate or prosecute any alcohol or drug abuse patient.[facility] [place] HospitalIn the event this information is protected by the Federal Confidentiality of Alcohol and Drug Abuse Patient Records regulations: The Federal rules restrict any use of the information to criminally investigate or prosecute any alcohol or drug abuse patient.[facility] [place] HospitalIn the event this information is protected by the Federal Confidentiality of Alcohol and Drug Abuse Patient Records regulations: The Federal rules restrict any use of the information to criminally investigate or prosecute any alcohol or drug abuse patient.[facility] [place] HospitalIn the event this information is protected by the Federal Confidentiality of Alcohol and Drug Abuse Patient Records regulations: The Federal rules restrict any use of the information to criminally investigate or prosecute any alcohol or drug abuse patient.[facility] [place] HospitalIn the event this information is protected by the Federal Confidentiality of Alcohol and Drug Abuse Patient Records regulations: The Federal rules restrict any use of the information to criminally investigate or prosecute any alcohol or drug abuse patient.[facility] [place] HospitalIn the event this information is protected by the Federal Confidentiality of Alcohol and Drug Abuse Patient Records regulations: The Federal rules restrict any use of the information to criminally investigate or prosecute any alcohol or drug abuse patient.[facility] [place] HospitalIn the event this information is protected by the Federal Confidentiality of Alcohol and Drug Abuse Patient Records regulations: The Federal rules restrict any use of the information to criminally investigate or prosecute any alcohol or drug abuse patient.[facility] [place] HospitalIn the event this information is protected by the Federal Confidentiality of Alcohol and Drug Abuse Patient Records regulations: The Federal rules restrict any use of the information to criminally investigate or prosecute any alcohol or drug abuse patient.[facility] [place] HospitalIn the event this information is protected by the Federal Confidentiality of Alcohol and Drug Abuse Patient Records regulations: The Federal rules restrict any use of the information to criminally investigate or prosecute any alcohol or drug abuse patient.[facility] [place] HospitalIn the event this information is protected by the Federal Confidentiality of Alcohol and Drug Abuse Patient Records regulations: The Federal rules restrict any use of the information to criminally investigate or prosecute any alcohol or drug abuse patient.[facility] [place] HospitalIn the event this information is protected by the Federal Confidentiality of Alcohol and Drug Abuse Patient Records regulations: The Federal rules restrict any use of the information to criminally investigate or prosecute any alcohol or drug abuse patient.[facility] [place] HospitalIn the event this information is protected by the Federal Confidentiality of Alcohol and Drug Abuse Patient Records regulations: The Federal rules restrict any use of the information to criminally investigate or prosecute any alcohol or drug abuse patient.[facility] [place] HospitalIn the event this information is protected by the Federal Confidentiality of Alcohol and Drug Abuse Patient Records regulations: The Federal rules restrict any use of the information to criminally investigate or prosecute any alcohol or drug abuse patient.[facility] [place] HospitalIn the event this information is protected by the Federal Confidentiality of Alcohol and Drug Abuse Patient Records regulations: The Federal rules restrict any use of the information to criminally investigate or prosecute any alcohol or drug abuse patient.[facility] [place] HospitalIn the event this information is protected by the Federal Confidentiality of Alcohol and Drug Abuse Patient Records regulations: The Federal rules restrict any use of the information to criminally investigate or prosecute any alcohol or drug abuse patient.[facility] [place] HospitalIn the event this information is protected by the Federal Confidentiality of Alcohol and Drug Abuse Patient Records regulations: The Federal rules restrict any use of the information to criminally investigate or prosecute any alcohol or drug abuse patient.[facility] [place] HospitalIn the event this information is protected by the Federal Confidentiality of Alcohol and Drug Abuse Patient Records regulations: The Federal rules restrict any use of the information to criminally investigate or prosecute any alcohol or drug abuse patient.[facility] [place] HospitalIn the event this information is protected by the Federal Confidentiality of Alcohol and Drug Abuse Patient Records regulations: The Federal rules restrict any use of the information to criminally investigate or prosecute any alcohol or drug abuse patient.[facility] [place] HospitalIn the event this information is protected by the Federal Confidentiality of Alcohol and Drug Abuse Patient Records regulations: The Federal rules restrict any use of the information to criminally investigate or prosecute any alcohol or drug abuse patient.[facility] [place] HospitalIn the event this information is protected by the Federal Confidentiality of Alcohol and Drug Abuse Patient Records regulations: The Federal rules restrict any use of the information to criminally investigate or prosecute any alcohol or drug abuse patient.[facility] [place] HospitalIn the event this information is protected by the Federal Confidentiality of Alcohol and Drug Abuse Patient Records regulations: The Federal rules restrict any use of the information to criminally investigate or prosecute any alcohol or drug abuse patient.[facility] [place] HospitalIn the event this information is protected by the Federal Confidentiality of Alcohol and Drug Abuse Patient Records regulations: The Federal rules restrict any use of the information to criminally investigate or prosecute any alcohol or drug abuse patient.[facility] [place] HospitalIn the event this information is protected by the Federal Confidentiality of Alcohol and Drug Abuse Patient Records regulations: The Federal rules restrict any use of the information to criminally investigate or prosecute any alcohol or drug abuse patient.[facility] [place] HospitalIn the event this information is protected by the Federal Confidentiality of Alcohol and Drug Abuse Patient Records regulations: The Federal rules restrict any use of the information to criminally investigate or prosecute any alcohol or drug abuse patient.[facility] [place] HospitalIn the event this information is protected by the Federal Confidentiality of Alcohol and Drug Abuse Patient Records regulations: The Federal rules restrict any use of the information to criminally investigate or prosecute any alcohol or drug abuse patient.[facility] [place] HospitalIn the event this information is protected by the Federal Confidentiality of Alcohol and Drug Abuse Patient Records regulations: The Federal rules restrict any use of the information to criminally investigate or prosecute any alcohol or drug abuse patient.[facility] [place] HospitalIn the event this information is protected by the Federal Confidentiality of Alcohol and Drug Abuse Patient Records regulations: The Federal rules restrict any use of the information to criminally investigate or prosecute any alcohol or drug abuse patient.[facility] [place] HospitalIn the event this information is protected by the Federal Confidentiality of Alcohol and Drug Abuse Patient Records regulations: The Federal rules restrict any use of the information to criminally investigate or prosecute any alcohol or drug abuse patient.[facility] [place] HospitalIn the event this information is protected by the Federal Confidentiality of Alcohol and Drug Abuse Patient Records regulations: The Federal rules restrict any use of the information to criminally investigate or prosecute any alcohol or drug abuse patient.[facility] [place] HospitalIn the event this information is protected by the Federal Confidentiality of Alcohol and Drug Abuse Patient Records regulations: The Federal rules restrict any use of the information to criminally investigate or prosecute any alcohol or drug abuse patient.[facility] [place] HospitalIn the event this information is protected by the Federal Confidentiality of Alcohol and Drug Abuse Patient Records regulations: The Federal rules restrict any use of the information to criminally investigate or prosecute any alcohol or drug abuse patient.[facility] [place] HospitalIn the event this information is protected by the Federal Confidentiality of Alcohol and Drug Abuse Patient Records regulations: The Federal rules restrict any use of the information to criminally investigate or prosecute any alcohol or drug abuse patient.[facility] [place] HospitalIn the event this information is protected by the Federal Confidentiality of Alcohol and Drug Abuse Patient Records regulations: The Federal rules restrict any use of the information to criminally investigate or prosecute any alcohol or drug abuse patient.[facility] [place] HospitalIn the event this information is protected by the Federal Confidentiality of Alcohol and Drug Abuse Patient Records regulations: The Federal rules restrict any use of the information to criminally investigate or prosecute any alcohol or drug abuse patient.[facility] [place] HospitalIn the event this information is protected by the Federal Confidentiality of Alcohol and Drug Abuse Patient Records regulations: The Federal rules restrict any use of the information to criminally investigate or prosecute any alcohol or drug abuse patient.[facility] [place] HospitalIn the event this information is protected by the Federal Confidentiality of Alcohol and Drug Abuse Patient Records regulations: The Federal rules restrict any use of the information to criminally investigate or prosecute any alcohol or drug abuse patient.[facility] [place] HospitalIn the event this information is protected by the Federal Confidentiality of Alcohol and Drug Abuse Patient Records regulations: The Federal rules restrict any use of the information to criminally investigate or prosecute any alcohol or drug abuse patient.[facility] [place] HospitalIn the event this information is protected by the Federal Confidentiality of Alcohol and Drug Abuse Patient Records regulations: The Federal rules restrict any use of the information to criminally investigate or prosecute any alcohol or drug abuse patient.[facility] [place] HospitalIn the event this information is protected by the Federal Confidentiality of Alcohol and Drug Abuse Patient Records regulations: The Federal rules restrict any use of the information to criminally investigate or prosecute any alcohol or drug abuse patient.[facility] [place] HospitalIn the event this information is protected by the Federal Confidentiality of Alcohol and Drug Abuse Patient Records regulations: The Federal rules restrict any use of the information to criminally investigate or prosecute any alcohol or drug abuse patient.[facility] [place] HospitalIn the event this information is protected by the Federal Confidentiality of Alcohol and Drug Abuse Patient Records regulations: The Federal rules restrict any use of the information to criminally investigate or prosecute any alcohol or drug abuse patient.[facility] [place] HospitalIn the event this information is protected by the Federal Confidentiality of Alcohol and Drug Abuse Patient Records regulations: The Federal rules restrict any use of the information to criminally investigate or prosecute any alcohol or drug abuse patient.[facility] [place] HospitalIn the event this information is protected by the Federal Confidentiality of Alcohol and Drug Abuse Patient Records regulations: The Federal rules restrict any use of the information to criminally investigate or prosecute any alcohol or drug abuse patient.[facility] [place] HospitalIn the event this information is protected by the Federal Confidentiality of Alcohol and Drug Abuse Patient Records regulations: The Federal rules restrict any use of the information to criminally investigate or prosecute any alcohol or drug abuse patient.[facility] [place] HospitalIn the event this information is protected by the Federal Confidentiality of Alcohol and Drug Abuse Patient Records regulations: The Federal rules restrict any use of the information to criminally investigate or prosecute any alcohol or drug abuse patient.[facility] [place] HospitalIn the event this information is protected by the Federal Confidentiality of Alcohol and Drug Abuse Patient Records regulations: The Federal rules restrict any use of the information to criminally investigate or prosecute any alcohol or drug abuse patient.[facility] [place] HospitalIn the event this information is protected by the Federal Confidentiality of Alcohol and Drug Abuse Patient Records regulations: The Federal rules restrict any use of the information to criminally investigate or prosecute any alcohol or drug abuse patient.[facility] [place] HospitalIn the event this information is protected by the Federal Confidentiality of Alcohol and Drug Abuse Patient Records regulations: The Federal rules restrict any use of the information to criminally investigate or prosecute any alcohol or drug abuse patient.[facility] Hospital[facility] the event this information is protected by the Federal Confidentiality of Alcohol and Drug Abuse Patient Records regulations: The Federal rules restrict any use of the information to criminally investigate or prosecute any alcohol or drug abuse patient.[facility] Hospital[facility] the event this information is protected by the Federal Confidentiality of Alcohol and Drug Abuse Patient Records regulations: The Federal rules restrict any use of the information to criminally investigate or prosecute any alcohol or drug abuse patient.[facility] Hospital[facility] the event this information is protected by the Federal Confidentiality of Alcohol and Drug Abuse Patient Records regulations: The Federal rules restrict any use of the information to criminally investigate or prosecute any alcohol or drug abuse patient.[facility] HospitalIn the event this information is protected by the Federal Confidentiality of Alcohol and Drug Abuse Patient Records regulations: The Federal rules restrict any use of the information to criminally investigate or prosecute any alcohol or drug abuse patient.[facility] Hospital[facility] the event this information is protected by the Federal Confidentiality of Alcohol and Drug Abuse Patient Records regulations: The Federal rules restrict any use of the information to criminally investigate or prosecute any alcohol or drug abuse patient.[facility] Reason for Visit (unrecogniz ed section and content) Reason Comments Patient Education Assessment Specialty Diagnoses / Procedures Referred By Christie t Referred To Contact Nutrition Diagnoses Class 3 severe obesity due to excess calories with body mass index (BMI) of 50.0 to 59.9 in adult, unspecified whether serious comorbidity present (HCC) Procedures CONSULT TO NUTRITION THERAPY MEDICAL NUTRITION ASSMT&IVNTJ INDIV EACH [address] Genaro Neri, EDUCATION ANALYST.VPK TEACHER [address] [place] [address] Referral ID Status Reason Start Date Expiration Date Visits Requested Visits Authorized [id number] Authorized PCP Requested Referral 04/03/2024 04/03/2025 1 4 Reason Comments Recheck Specialty Diagnoses / Procedures Referred By Christie hidalgo Referred To Contact RHEUMATOLOGY Diagnoses Juvenile idiopathic arthritis (HCC) Procedures office visit Silvia Tucker MD [address] [place] [address] [facility] [address] [id number] Referral ID Status Reason Start Date Expiration Date V isits Requested Visits Authorized [id number] Closed Financial Clearance Required - Self Pay [...] Referred By Christie t Referred To Contact [facility] Diagnoses Encounter for IUD insertion Procedures INSERT INTRAUTERINE DEVICE INSERT INTRAUTERINE DEVICE Ayaan Rowley, EDUCATION ANALYST.CNM [address] [place] [address] [facility] [address] [place] [address] Referral ID Status Reason Start Date Expiration Date V isits Requested Visits Authorized [id number] Authorized 08/15/2021 08/14/2022 2 2 Reason Comments Follow Up Reason Comments Shortness of Breath Reason Comments IUD Reason Onset Date Comments Refill Request 01/16/2022 Reason Comments Results Reason Onset Date Comments Refill Request 02/18/2022 Reason Onset Date Comments SPP Inflammatory Conditions - Treatment Referral 02/19/2022 Ilaris Reason Comments Consult Reason Comments Consult [facility] Pt Outreach F/U Reason Onset Date Comments Refill Request 02/25/2022 Reason Comments Consult [facility] assessment Virt ual Reason Onset Date Comments [...] SCAN,ABDOMENT AND PELVIS,W CONTRAST Marina Goodrich T, EDUCATION ANALYST-SENIOR MORTGAGE UNDERWRITER [address] [place] [address] Referral ID Status Reason Start Date Expiration Date Visits Re quested Visits Authorized [id number] Closed 06/28/2022 07/23/2023 1 1 Reason Comments [...] To Contact Diagnoses . Procedures . Self [facility] Dept Referral ID Status Reason Start Date Expiration Date V isits Requested Visits Authorized [id number] Closed Patient Cleared - Qualified 100% FAS [...] k. Reason Comments new form coming from [employer] Reason Comments requesting copy of form faxed [...] Date Expiration Date Visits Requested Visits Authorized [id number] New Request Financial Clearance Required - Self Pay OON/Self Pay Override 03/12/2024 06/10/[phone] Reason Comments Results Colposcopy Reason Comments Colposcopy Specialty Diagnoses / Procedures Referred By Christie hidalgo Referred To Contact [facility] Diagnoses Cervical high risk HPV (human papillomavirus) test positive Procedures COLPOSCOPY COLPOSCOPY CERVIX BX CERVIX & ENDOCRV CURRETANani Hatfield, EDUCATION ANALYST.SENIOR MORTGAGE UNDERWRITER [address] [place] [address] [address] [address] [place] [address] Referral ID Status Reason Start Date Expiration Date V isits Requested Visits Authorized [id number] Closed Auto-Generate d Referral 03/12/2024 03/12/2025 1 [...] IVCON [place] [address] [place] [address] [place] [address] Referral ID Status Reason Start Date Expiration Date V isits Requested Visits Authorized [id number] Closed Auto-Generate d Referral 06/27/2020 08/25/2020 3 [...] the last 5 days. 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 Reason Onset Date Comments SPP Inflammatory Conditions - Medication Refill 01/31/2025 Ilaris Reason Comments Well Woman Reason Comments Clinical Update Reason Onset Date Comments SPP Inflammatory Conditions - Medication Refill 03/01/2025 Ilaris Reason Comments Back Pain Upper back pain x 1 day Reason Onset Date Comments SPP Inflammatory Conditions - Follow-up 03/27/20 [facility] Insurance Authorization 03/27/2025 KILO montiel al submitted Reason Onset Date Comments SPP Inflammatory Conditions - Medication Refill 03/29/2025 Ilaris Reason Comments bleeding after colposcopy Reason Onset Date Comments SPP Inflammatory Conditions - Medication Refill 04/26/2025 Ilaris Reason Comments Vaginal Problem Care Teams (unrecognized sec tion and content) Industrial Custodian Relationship Specialty Start Date End Date Faustina Carcamo MD [address] [place], [place] [address] PCP - General Internal Medicine 04/10/13 Industrial Custodian Relationship Specialty Start Date End Date Faustina Carcamo MD [address] [place], [place] [id number] PCP - General Internal Medicine 04/10/13 Industrial Custodian Relationship Specialty Start Date End Date Faustina Carcamo MD [address] [place], [place] [id number] PCP - General Internal Medicine 04/10/13 Industrial Custodian Relationship Specialty Start Date End Date Faustina Carcamo MD [address] [facility] [place] [address] PCP - General Internal Medicine 04/10/13 Industrial Custodian Relationship Specialty Start Date End Date Faustina Carcamo MD [address] [place] [address], [place] [address] PCP - General Internal Medicine 04/10/13 Industrial Custodian Relationship Specialty Start Date End Date Faustina Carcamo MD [address] [place] [address], [place] [address] PCP - General Internal Medicine 04/10/13 Industrial Custodian Relationship Specialty Start Date End Date Faustina Carcamo MD [address] [place] [address], [place] [address] PCP - General Internal Medicine 04/10/13 Industrial Custodian Relationship Specialty Start Date End Date Faustina Carcamo MD [address] [place] [address], [place] [address] PCP - General Internal Medicine 04/10/13 Industrial Custodian Relationship Specialty Start Date End Date Faustina Carcamo MD [address] [place] [address], [place] [address] PCP - General Internal Medicine 04/10/13 Industrial Custodian Relationship Specialty Start Date End Date Faustina Carcamo MD [address] [place] [address], [place] [address] PCP - General Internal Medicine 04/10/13 Industrial Custodian Relationship Specialty Start Date End Date Faustina Carcamo MD [address] [place] [address], [place] [address] PCP - General Internal Medicine 04/10/13 Industrial Custodian Relationship Specialty Start Date End Date Faustina Carcamo MD [address] [place] [address], [place] [address] PCP - General Internal Medicine 04/10/13 Industrial Custodian Relationship Specialty Start Date End Date Faustina Carcamo MD [address] [facility] [place] [address] PCP - General Internal Medicine 04/10/13 Industrial Custodian Relationship Specialty Start Date End Date Faustina Carcamo MD [address] [place] [address] PCP - General Internal Medicine 04/10/13 Industrial Custodian Relationship Specialty Start Date End Date Faustina Carcamo MD [address] [place] [address] PCP - General Internal Medicine 04/10/13 Industrial Custodian Relationship Specialty Start Date End Date Faustina Carcamo MD [address] [place] [address] PCP - General Internal Medicine 04/10/13 Industrial Custodian Relationship Specialty Start Date End Date Faustina Carcamo MD [address] [place] [address] PCP - General Internal Medicine 04/10/13 Industrial Custodian Relationship Specialty Start Date End Date Faustina Carcamo MD [address] [place] [address] PCP - General Internal Medicine 04/10/13 Industrial Custodian Relationship Specialty Start Date End Date Mario Vazquez MBBS [address] [place] [address], [place] [address] PCP - General Internal Medicine 04/16/22 Industrial Custodian Relationship Specialty Start Date End Date No, Physician [facility] PCP - General 05/02/22 Industrial Custodian Relationship Specialty Start Date End Date Mario Vazquez MBBS [address] [place] [address], [place] [address] PCP - General Internal Medicine 04/16/22 Industrial Custodian Relationship Specialty Start Date End Date Mario Vazquez MBBS [address] [place] [address] PCP - General Internal Medicine 04/16/22 Industrial Custodian Relationship Specialty Start Date End Date Mario Vazquez MBBS [address] [place] [address] PCP - General Internal Medicine 04/16/22 Industrial Custodian Relationship Specialty Start Date End Date Faustina Carcamo MD [address] [facility] [place] [address] PCP - General Internal Medicine 04/10/13 Industrial Custodian Relationship Specialty Start Date End Date Faustina Carcamo MD [facility] [place] [address] PCP - General Internal Medicine 04/10/13 Industrial Custodian Relationship Specialty Start Date End Date Mario Vazquez MBBS [address] [place] [address] PCP - General Internal Medicine 04/16/22 Industrial Custodian Relationship Specialty Start Date End Date Faustina Carcamo MD [address] [facility] [place] [address] PCP - General Internal Medicine 04/10/13 Industrial Custodian Relationship Specialty Start Date End Date Faustina Carcamo MD [address] [facility] [place] [address] PCP - General Internal Medicine 04/10/13 Industrial Custodian Relationship Specialty Start Date End Date Faustina Carcamo MD [facility] [place] [address] PCP - General Internal Medicine 04/10/13 Industrial Custodian Relationship Specialty Start Date End Date Faustina Carcamo MD [address] [facility] [place] [address] PCP - General Internal Medicine 04/10/13 Industrial Custodian Relationship Specialty Start Date End Date Faustina Carcamo MD [address] [facility] [place] [address] PCP - General Internal Medicine 04/10/13 Industrial Custodian Relationship Specialty Start Date End Date Faustina Carcamo MD [address] [facility] [place] [address] PCP - General Internal Medicine 04/10/13 Industrial Custodian Relationship Specialty Start Date End Date Faustina Carcamo MD [address] [facility] [place] [address] PCP - General Internal Medicine 04/10/13 Industrial Custodian Relationship Specialty Start Date End Date Faustina Carcamo MD [address] [facility] [place] [address] PCP - General Internal Medicine 04/10/13 Industrial Custodian Relationship Specialty Start Date End Date Faustina Carcamo MD [address] [facility] [place] [address] PCP - General Internal Medicine 04/10/13 Industrial Custodian Relationship Specialty Start Date End Date Faustina Carcamo MD [address] [facility] [place] [address] PCP - General Internal Medicine 04/10/13 Industrial Custodian Relationship Specialty Start Date End Date Faustina Carcamo MD [address] [place] [address] PCP - General Internal Medicine 04/10/13 Industrial Custodian Relationship Specialty Start Date End Date Faustina Carcamo MD [address] [place] [address] PCP - General Internal Medicine 04/10/13 Industrial Custodian Relationship Specialty Start Date End Date Faustina Carcamo MD [address] [place] [address] PCP - General Internal Medicine 04/10/13 Industrial Custodian Relationship Specialty Start Date End Date Faustina Carcamo MD [address] [place] [address] PCP - General Internal Medicine 04/10/13 Industrial Custodian Relationship Specialty Start Date End Date Faustina Carcamo MD [address] [place] [address] PCP - General Internal Medicine 04/10/13 Industrial Custodian Relationship Specialty Start Date End Date Faustina Carcamo MD [address] [place] [address] PCP - General Internal Medicine 04/10/13 Industrial Custodian Relationship Specialty Start Date End Date Faustina Carcamo MD [address] [place] [address] PCP - General Internal Medicine 04/10/13 Industrial Custodian Relationship Specialty Start Date End Date Faustina Carcamo MD [address] [place] [address] PCP - General Internal Medicine 04/10/13 Industrial Custodian Relationship Specialty Start Date End Date Faustina Carcamo MD [address] [facility] [place] [address] PCP - General Internal Medicine 04/10/13 Industrial Custodian Relationship Specialty Start Date End Date Faustina Carcamo MD [address] [facility] [place] [address] PCP - General Internal Medicine 04/10/13 Industrial Custodian Relationship Specialty Start Date End Date Faustina Carcamo MD [address] [facility] [place] [address] PCP - General Internal Medicine 04/10/13 Industrial Custodian Relationship Specialty Start Date End Date Faustina Carcamo MD [address] [facility] [place] [address] PCP - General Internal Medicine 04/10/13 Industrial Custodian Relationship Specialty Start Date End Date Faustina Carcamo MD [address] [facility] [place] [address] PCP - General Internal Medicine 04/10/13 Industrial Custodian Relationship Specialty Start Date End Date Faustina Carcamo MD [address] [facility] [place] [address] PCP - General Internal Medicine 04/10/13 Industrial Custodian Relationship Specialty Start Date End Date Faustina Carcamo MD [address] [facility] [place] [address] PCP - General Internal Medicine 04/10/13 Industrial Custodian Relationship Specialty Start Date End Date Faustina Carcamo MD [address] [facility] [place] [address] PCP - General Internal Medicine 04/10/13 Industrial Custodian Relationship Specialty Start Date End Date Faustina Carcamo MD [address] [facility] [place] [address] PCP - General Internal Medicine 04/10/13 Industrial Custodian Relationship Specialty Start Date End Date Faustina Carcamo MD [address] [facility] [place] [address] PCP - General Internal Medicine 04/10/13 Industrial Custodian Relationship Specialty Start Date End Date Faustina Carcamo MD [address] [facility] [place] [address] PCP - General Internal Medicine 04/10/13 Industrial Custodian Relationship Specialty Start Date End Date Faustina Carcamo MD [address] [facility] [place] [address] PCP - General Internal Medicine 04/10/13 Industrial Custodian Relationship Specialty Start Date End Date Faustina Carcamo MD [address] [facility] [place] [address] PCP - General Internal Medicine 04/10/13 Industrial Custodian Relationship Specialty Start Date End Date Faustina Carcamo MD [address] [facility] [place] [address] PCP - General Internal Medicine 04/10/13 Industrial Custodian Relationship Specialty Start Date End Date Faustina Carcamo MD [address] [facility] [place] [address] PCP - General Internal Medicine 04/10/13 Industrial Custodian Relationship Specialty Start Date End Date Faustina Carcamo MD [address] [place] [address] PCP - General Internal Medicine 04/10/13 Industrial Custodian Relationship Specialty Start Date End Date Faustina Carcamo MD [address] [place] [address] PCP - General Internal Medicine 04/10/13 Industrial Custodian Relationship Specialty Start Date End Date Faustina Carcamo MD [address] [place] [address] PCP - General Internal Medicine 04/10/13 Industrial Custodian Relationship Specialty Start Date End Date Faustina Carcamo MD [address] [place] [address] PCP - General Internal Medicine 04/10/13 Genaro Neri, EDUCATION ANALYST.VPK TEACHER [address] [place] [address] Pastry Dec[employer]ator Internal Medicine 07/23/24 Petra Lugo, EDUCATION ANALYST.SENIOR MORTGAGE UNDERWRITER [address] [place], [place] [address] Pastry Decorator Internal Medicine 07/23/24 Industrial Custodian Relationship Specialty Start Date End Date Faustina Carcamo MD [address] [place] [place], [place] [address] PCP - General Internal Medicine 04/10/13 Genaro Neri, EDUCATION ANALYST.VPK TEACHER [address] [place] [address] [facility] Internal Medicine 07/23/24 Petra Lugo EDUCATION ANALYST.SENIOR MORTGAGE UNDERWRITER [address] [place] [address] [facility] Internal Medicine 07/23/24 Industrial Custodian Relationship Specialty Start Date End Date Faustina Carcamo MD [address] [place] [address] PCP - General Internal Medicine 04/10/13 Genaro Neri, EDUCATION ANALYST.VPK TEACHER [address] [place] [address] [facility] Internal Medicine 07/23/24 Petra Lugo EDUCATION ANALYST.SENIOR MORTGAGE UNDERWRITER [address] [place] [address] [facility] Internal Medicine 07/23/[address] [place], [place] [id number] [facility] 07/27/24 Industrial Custodian Relationship Specialty Start Date End Date Faustina Carcamo MD [address] [place] [address] PCP - General Internal Medicine 04/10/13 Genaro Neri, EDUCATION ANALYST.VPK TEACHER [address] [place] [address] [facility] Internal Medicine 07/23/24 Petra Lugo EDUCATION ANALYST.SENIOR MORTGAGE UNDERWRITER [address] [place] [address] [facility] Internal Medicine 07/23/[address] [place] [address] [facility] 07/27/24 Industrial Custodian Relationship Specialty Start Date End Date Faustina Carcamo MD [address] [place] [address] PCP - General Internal Medicine 04/10/13 Genaro Neri, EDUCATION ANALYST.VPK TEACHER [address] [place] [address] Pastry Decorator Internal Medicine 07/23/24 Petra Lugo EDUCATION ANALYST.SENIOR MORTGAGE UNDERWRITER [address] [place] [address] Pastry Decorator Internal Medicine 07/23/[address] [place] [address] [facility] 07/27/24 Industrial Custodian Relationship Specialty Start Date End Date Faustina Carcamo MD [address] [place] [address] PCP - General Internal Medicine 04/10/13 Genaro Neri, EDUCATION ANALYST.VPK TEACHER [address] [place] [address] Pastry Decorator Internal Medicine 07/23/24 Petra Lugo EDUCATION ANALYST.SENIOR MORTGAGE UNDERWRITER [address] [place] [address] [facility] Internal Medicine 07/23/[address] [place] [address] Nutrition 07/27/24 Industrial Custodian Relationship Specialty Start Date End Date Faustina Carcamo MD [address] [place] [address] PCP - General Internal Medicine 04/10/13 Genaro Neri, EDUCATION ANALYST.VPK TEACHER [address] [place] [address] Pastry Decorator Internal Medicine 07/23/24 Petra Lugo EDUCATION ANALYST.SENIOR MORTGAGE UNDERWRITER [address] [place] [address] Pastry Decorator Internal Medicine 07/23/[address] [place] [address] Nutrition 07/27/24 Industrial Custodian Relationship Specialty Start Date End Date Faustina Carcamo MD [address] [place] [address] PCP - General Internal Medicine 04/10/13 Genaro Neri, EDUCATION ANALYST.VPK TEACHER [facility] [place] [address] Pastry Decorator Internal Medicine 07/23/24 Petra Lugo EDUCATION ANALYST.SENIOR MORTGAGE UNDERWRITER [facility] [place] [address] Pastry Decorator Internal Medicine 07/23/[address] [facility] [address] [address] Nutrition 07/27/24 Industrial Custodian Relationship Specialty Start Date End Date Faustina Carcamo MD [address] [facility] [place] [address] PCP - General Internal Medicine 04/10/13 Genaro Neri, EDUCATION ANALYST.VPK TEACHER [address] [place] [address] Pastry Decorator Internal Medicine 07/23/24 Petra Lugo EDUCATION ANALYST.SENIOR MORTGAGE UNDERWRITER [address] [place] [address] Pastry Decorator Internal Medicine 07/23/[address] [place] [address] [facility] 07/27/24 Industrial Custodian Relationship Specialty Start Date End Date Faustina Carcamo MD [facility] [place] [address] PCP - General Internal Medicine 04/10/13 Genaro Neri, EDUCATION ANALYST.VPK TEACHER [facility] [place] [address] Pastry Decorator Internal Medicine 07/23/24 Petra Lugo EDUCATION ANALYST.SENIOR MORTGAGE UNDERWRITER [address] [place] [address] Pastry Decorator Internal Medicine 07/23/[address] [place] [address] [facility] 07/27/24 Industrial Custodian Relationship Specialty Start Date End Date Faustina Carcamo MD [facility] [place] [address] PCP - General Internal Medicine 04/10/13 Genaro Neri, EDUCATION ANALYST.VPK TEACHER [address] [place] [address] Pastry Decorator Internal Medicine 07/23/24 Petra Lugo EDUCATION ANALYST.SENIOR MORTGAGE UNDERWRITER [address] [place] [address] [facility] Internal Medicine 07/23/[address] [place] [address] [facility] 07/27/24 Industrial Custodian Relationship Specialty Start Date End Date Faustina Carcamo MD [address] [place] [address] PCP - General Internal Medicine 04/10/13 Genaro Neri, EDUCATION ANALYST.VPK TEACHER [address] [place] [address] [facility] Internal Medicine 07/23/24 Petra Lugo EDUCATION ANALYST.SENIOR MORTGAGE UNDERWRITER [address] [place] [address] [facility] Internal Medicine 07/23/[address] [place] [address] Nutrition 07/27/24 Industrial Custodian Relationship Specialty Start Date End Date Faustina Carcamo MD [facility] [place] [address] PCP - General Internal Medicine 04/10/13 Genaro Neri, EDUCATION ANALYST.VPK TEACHER [address] [place] [address] Pastry Decorator Internal Medicine 07/23/24 Petra Lugo EDUCATION ANALYST.SENIOR MORTGAGE UNDERWRITER [address] [facility] [place] [address] Pastry Decorator Internal Medicine 07/23/[address] [address] Nutrition 07/27/24 Industrial Custodian Relationship Specialty Start Date End Date Faustina Carcamo MD [address] [place] [address] PCP - General Internal Medicine 04/10/13 Genaro Neri, EDUCATION ANALYST.VPK TEACHER [address] [place] [address] [facility] Internal Medicine 07/23/24 Petra Lugo EDUCATION ANALYST.SENIOR MORTGAGE UNDERWRITER [address] [facility] [place] [address] [facility] Internal Medicine 07/23/[address] [address] Nutrition 07/27/24 Industrial Custodian Relationship Specialty Start Date End Date Faustina Carcamo MD [address] [facility] [place] [address] PCP - General Internal Medicine 04/10/13 Genaro Neri, EDUCATION ANALYST.VPK TEACHER [address] [place] [address] Pastry Decorator Internal Medicine 07/23/24 Petra Lugo EDUCATION ANALYST.SENIOR MORTGAGE UNDERWRITER [address] [place] [address] Pastry Decorator Internal Medicine 07/23/[address] [place] [address] Nutrition 07/27/24 Industrial Custodian Relationship Specialty Start Date End Date Faustina Carcamo MD [address] [place] [address] PCP - General Internal Medicine 04/10/13 Genaro Neri, EDUCATION ANALYST.VPK TEACHER [address] [place] [address] [facility] Internal Medicine 07/23/24 Petra Lugo EDUCATION ANALYST.SENIOR MORTGAGE UNDERWRITER [address] [place] [address] Pastry Decorator Internal Medicine 07/23/[address] [place] [address] Nutrition 07/27/24 Industrial Custodian Relationship Specialty Start Date End Date Faustina Carcamo MD [address] [place] [address] PCP - General Internal Medicine 04/10/13 Genaro Neri, EDUCATION ANALYST.VPK TEACHER [address] [place] [address] Pastry Decorator Internal Medicine 07/23/24 Petra Lugo EDUCATION ANALYST.SENIOR MORTGAGE UNDERWRITER [address] [facility] [place] [address] [facility] Internal Medicine 07/23/[address] [address] Nutrition 07/27/24 Industrial Custodian Relationship Specialty Start Date End Date Faustina Carcamo MD [address] [facility] [place] [address] PCP - General Internal Medicine 04/10/13 Genaro Neri, EDUCATION ANALYST.VPK TEACHER [address] [place] [address] [facility] Internal Medicine 07/23/24 Petra Lugo EDUCATION ANALYST.SENIOR MORTGAGE UNDERWRITER [address] [place] [address] [facility] Internal Medicine 07/23/[address] [address] Nutrition 07/27/24 Industrial Custodian Relationship Specialty Start Date End Date Faustina Carcamo MD [address] [place] [address] PCP - General Internal Medicine 04/10/13 eGnaro Neri, EDUCATION ANALYST.VPK TEACHER [address] [place] [address] [facility] Internal Medicine 07/23/[address] [address] Nutrition 07/27/24 Petra Lugo APRN.SENIOR MORTGAGE UNDERWRITER [address] [place] [address] Pastry Decorator Internal Medicine 11/06/24 Industrial Custodian Relationship Specialty Start Date End Date Faustina Carcamo MD [address] [place] [address] PCP - General Internal Medicine 04/10/13 Genaro Neri, EDUCATION ANALYST.VPK TEACHER [address] [place] [address] Pastry Decorator Internal Medicine 07/23/24 Petra Lugo APRN.SENIOR MORTGAGE UNDERWRITER [address] [place] [address] Pastry Decorator Internal Medicine 07/23/24 11/02/[address] [address] Nutrition 07/27/24 Industrial Custodian Relationship Specialty Start Date End Date Faustina Carcamo MD [address] [place] [address] PCP - General Internal Medicine 04/10/13 Genaro Neri, EDUCATION ANALYST.VPK TEACHER [address] [place] [address] Pastry Decorator Internal Medicine 07/23/[address] [address] Nutrition 07/27/24 Petra Lugo APRN.SENIOR MORTGAGE UNDERWRITER [address] [place] [address] Pastry Decorator Internal Medicine 11/06/24 Industrial Custodian Relationship Specialty Start Date End Date Faustina Carcamo MD [address] [place] [address] PCP - General Internal Medicine 04/10/13 Genaro Neri, EDUCATION ANALYST.VPK TEACHER [address] [place] [address] Pastry Decorator Internal Medicine 07/23/[address] [place] [address] Nutrition 07/27/24 Petra Lugo APRN.SENIOR MORTGAGE UNDERWRITER [address] [place] [address] [facility] Internal Medicine 11/06/24 Industrial Custodian Relationship Specialty Start Date End Date Faustina Carcamo MD [address] [place] [address] PCP - General Internal Medicine 04/10/13 Genaro Neri, EDUCATION ANALYST.VPK TEACHER [address] [place] [address] [facility] Internal Medicine 07/23/[address] [place] [address] Nutrition 07/27/24 Petra Lugo APRN.SENIOR MORTGAGE UNDERWRITER [address] [facility] [place] [address] Pastry Decorator Internal Medicine 11/06/24 Industrial Custodian Relationship Specialty Start Date End Date Faustina Carcamo MD [address] [facility] [place] [address] PCP - General Internal Medicine 04/10/13 Genaro Neri, EDUCATION ANALYST.VPK TEACHER [address] [facility] [place] [address] Pastry Decorator Internal Medicine 07/23/24 Petra Lugo EDUCATION ANALYST.SENIOR MORTGAGE UNDERWRITER [address] [facility] [place] [address] Pastry Decorator Internal Medicine 07/23/24 11/02/[address] [place] [address] [facility] 07/27/24 Petra Lugo APRN.SENIOR MORTGAGE UNDERWRITER [address] [facility] [place] [address] [facility] Internal Medicine 11/06/24 Industrial Custodian Relationship Specialty Start Date End Date Faustina Carcamo MD [address] [facility] [place] [address] PCP - General Internal Medicine 04/10/13 Genaro Neri, EDUCATION ANALYST.VPK TEACHER [address] [facility] [place] [address] Pastry Decorator Internal Medicine 07/23/[address] [place] [address] Nutrition 07/27/24 Petra Lugo APRN.SENIOR MORTGAGE UNDERWRITER [address] [place] [address] Pastry Decorator Internal Medicine 11/06/24 Industrial Custodian Relationship Specialty Start Date End Date Faustina Carcamo MD [address] [place] [address] PCP - General Internal Medicine 04/10/13 Genaro Neri, EDUCATION ANALYST.VPK TEACHER [address] [place] [address] Pastry Decorator Internal Medicine 07/23/[address] [place] [address] Nutrition 07/27/24 Petra Lugo EDUCATION ANALYST.SENIOR MORTGAGE UNDERWRITER [address] [place] [address] Pastry Decorator Internal Medicine 11/06/24 Industrial Custodian Relationship Specialty Start Date End Date Faustina Carcamo MD [address] [place] [address] PCP - General Internal Medicine 04/10/13 Genaro Neri, EDUCATION ANALYST.VPK TEACHER [address] [place] [address] Pastry Decorator Internal Medicine 07/23/[address] [place] [address] Nutrition 07/27/24 Petra Lugo APRN.SENIOR MORTGAGE UNDERWRITER [address] [facility] [place] [address] Pastry Decorator Internal Medicine 11/06/24 Industrial Custodian Relationship Specialty Start Date End Date Faustina Carcamo MD [address] [facility] [place] [address] PCP - General Internal Medicine 04/10/[address] [place] [address] Nutrition 07/27/24 Petra Lugo APRN.SENIOR MORTGAGE UNDERWRITER [address] [facility] [place] [address] Pastry Decorator Internal Medicine 11/06/24 Genaro Neri APRN.VPK TEACHER [address] [facility] [place] [address] Pastry Decorator Internal Medicine 01/02/25 Industrial Custodian Relationship Specialty Start Date End Date Faustina Carcamo MD [address] [facility] [place] [address] PCP - General Internal Medicine 04/10/[address] [place] [address] Nutrition 07/27/24 Petra Lugo APRN.SENIOR MORTGAGE UNDERWRITER [address] [facility] [place] [address] Pastry Decorator Internal Medicine 11/06/24 Genaro Neri APRN.VPK TEACHER [address] [place] [address] Pastry Decorator Internal Medicine 01/02/25 Industrial Custodian Relationship Specialty Start Date End Date Faustina Carcamo MD [address] [place] [address] PCP - General Internal Medicine 04/10/13 Genaro Neri, GENI.VPK TEACHER [address] [place] [address] Pastry Decorator Internal Medicine 07/23/24 01/01/[address] [place] [address] Nutrition 07/27/24 Petra Lugo APRN.SENIOR MORTGAGE UNDERWRITER [address] [place] [address] Pastry Decorator Internal Medicine 11/06/24 Genaro Neri, EDUCATION ANALYST.VPK TEACHER [address] [place] [address] [facility] Internal Medicine 01/02/25 Industrial Custodian Relationship Specialty Start Date End Date Faustina Carcamo MD [address] [place] [address] PCP - General Internal Medicine 04/10/[address] [place] [address] Nutrition 07/27/24 Petra Lugo APRN.SENIOR MORTGAGE UNDERWRITER [address] [place] [address] Pastry Decorator Internal Medicine 11/06/24 Genaro Neri APRN.VPK TEACHER [address] [place] [address] [facility] Internal Medicine 01/02/25 Industrial Custodian Relationship Specialty Start Date End Date Faustina Carcamo MD [address] [place] [address] PCP - General Internal Medicine 04/10/[address] [address] Nutrition 07/27/24 Petra Lugo APRN.SENIOR MORTGAGE UNDERWRITER [address] [place] [address] [facility] Internal Medicine 11/06/24 Genaro Neri APRN.VPK TEACHER [address] [place] [address] [facility] Internal Medicine 01/02/25 Industrial Custodian Relationship Specialty Start Date End Date Faustina Carcamo MD [address] [place] [address] PCP - General Internal Medicine 04/10/[address] [address] Nutrition 07/27/24 Petra Lugo APRN.SENIOR MORTGAGE UNDERWRITER [address] [place] [address] [facility] Internal Medicine 11/06/24 Genaro Neri APRN.VPK TEACHER [address] [facility] [place] [address] Pastry Decorator Internal Medicine 01/02/25 Industrial Custodian Relationship Specialty Start Date End Date Faustina Carcamo MD [address] [place] [address] PCP - General Internal Medicine 04/10/[address] [address] Nutrition 07/27/24 Petra Lugo APRN.SENIOR MORTGAGE UNDERWRITER [address] [place] [address] Pastry Decorator Internal Medicine 11/06/24 Genaro Neri APRN.VPK TEACHER [address] [place] [address] Pastry Decorator Internal Medicine 01/02/25 Industrial Custodian Relationship Specialty Start Date End Date Faustina Carcamo MD [address] [place] [address] PCP - General Internal Medicine 04/10/[address] [address] Nutrition 07/27/24 Petra Lugo APRN.SENIOR MORTGAGE UNDERWRITER [address] [place] [address] Pastry Decorator Internal Medicine 11/06/24 Genaro Neri APRN.VPK TEACHER [address] [place] [address] Pastry Decorator Internal Medicine 01/02/25 Industrial Custodian Relationship Specialty Start Date End Date Faustina Carcamo MD [address] [facility] [place] [address] PCP - General Internal Medicine 04/10/[address] [address] Nutrition 07/27/24 Petra Lugo APRN.SENIOR MORTGAGE UNDERWRITER [address] [place] [address] Pastry Decorator Internal Medicine 11/06/24 Genaro Neri APRN.VPK TEACHER [address] [place] [address] Pastry Decorator Internal Medicine 01/02/25 Industrial Custodian Relationship Specialty Start Date End Date Faustina Carcamo MD [address] [place] [address] PCP - General Internal Medicine 04/10/[address] [place] [address] Nutrition 07/27/24 Petra Lugo APRN.SENIOR MORTGAGE UNDERWRITER [address] [place] [address] Pastry Decorator Internal Medicine 11/06/24 Genaro Neri APRN.VPK TEACHER [address] [place] [address] Pastry Decorator Internal Medicine 01/02/25 Industrial Custodian Relationship Specialty Start Date End Date Faustina Carcamo MD [address] [facility] [place] [address] PCP - General Internal Medicine 04/10/[address] [place] [address] Nutrition 07/27/24 Petra Lugo APRN.SENIOR MORTGAGE UNDERWRITER [address] [facility] [place] [address] Pastry Decorator Internal Medicine 11/06/24 Genaro Neri APRN.VPK TEACHER [address] [facility] [place] [address] Pastry Decorator Internal Medicine 01/02/25 Industrial Custodian Relationship Specialty Start Date End Date Faustina Carcamo MD [address] [facility] [place] [address] PCP - General Internal Medicine 04/10/[address] [place] [address] Nutrition 07/27/24 Petra Lugo APRN.SENIOR MORTGAGE UNDERWRITER [address] [facility] [place] [address] Pastry Decorator Internal Medicine 11/06/24 Genaro Neri APRN.VPK TEACHER [address] [facility] [place] [address] Pastry Decorator Internal Medicine 01/02/25 Industrial Custodian Relationship Specialty Start Date End Date Faustina Carcamo MD [address] [facility] [place] [address] PCP - General Internal Medicine 04/10/13 C[address]idad RD [address] [address] Nutrition 07/27/24 Petra Lugo APRN.SENIOR MORTGAGE UNDERWRITER [address] [place], [place] [address] [facility] Internal Medicine 11/06/24 Genaro Neri APRN.VPK TEACHER [address] [place], [place] [address] [facility] Internal Medicine 01/02/25 FOR RECORDS PERTAINING TO [...] BE BASED ON THE PRIMARY CLINICAL RECORDS. [facility]. provides no warranty or guarantee of the accuracy or completeness of information in this document.
[2025-08-11] MEDS: 0.9% Normal Saline (1000mL) 1,000 ML 999 ML IV (09:40)
[2025-08-11 09:50] LABS: Hematocrit 39.5 % (37-47); Hemoglobin 13.8 g/dL (12.0-15.0); Immature Granulocytes Count 0.020 X10^3/uL (0.0-0.0); Mean Corp Hgb Conc 34.9 g/dL (32-36); Mean Corpuscular Volume 91.2 fL (81-99); Mean Platelet Vol. 9.5 fl (6.2-12.0); NRBC Flagged by Analyzer 0 % (0-5); Platelet Count 435 K/mm3 (150-450); RBC Distribution Width CV 12.6 % (11.6-14.6); RBC Distribution Width SD 41.6 fl (35.1-43.9); Red Blood Count 4.33 M/mm3 (4.2-5.4); White Blood Count 7.9 K/mm3 (4.4-11.0)
[2025-08-11 09:55] LABS: Internal QC Validated? YES +Cl - CLEAR BKGD; Pregnancy, Serum, hCG Quali. NEGATIVE Negative
[2025-08-11 10:05] LABS: AST(SGOT) 22 U/L (<=31); Alanine Aminotransfer ALT/SGPT 21 U/L (<=34); Albumin, Serum 4.2 g/dL (3.5-5.0); Alkaline Phosphatase 74 U/L (35-104); Anion Gap 12 (7-18); BUN 10 mg/dL (4-19); BUN/Creat Ratio 14.2 RATIO (10-20); Calcium,Total 9.5 mg/dL (7.6-11.0); Carbon Dioxide 17.9 mmol/L (20.0-29.0); Chloride 109 mmol/L (96-106); Estimated Creatinine Clearance 143.47 ml/min (50-250); Globulin 2.8 g/dL (2.2-4.2); Glucose 96 mg/dL (70-99); Potassium 4.0 mmol/L (3.5-5.1)
[2025-08-11 10:16] VITALS: BP 159/115; PULSE 111; RESP 16; O2SAT 99
[2025-08-11 10:17] LABS: Mucous, Urine 0 SEEN /hpf (<or=2+); Red Blood Cells-Urine 0 SEEN /hpf (0-5)
[2025-08-11 10:19] LABS: Color, Urine Straw (Yellow); Glucose, Dipstick Normal (Normal); Ketone-Dipstick Negative (Negative); Leukocyte Esterase-Dipstick Negative /ul (Negative); Nitrite-Dipstick Negative (Negative); Occult Blood-Urine Negative /ul (Negative); Protein-Dipstick 15 mg/dl (Negative); Specific Gravity, Urine 1.015 (1.002-1.030); Urine Bilirubin Dipstick Negative (Negative)
[2025-08-11 10:35] LABS: Squamous Epithelial Cells - UA 0-5 SEEN /hpf (5-10)
[2025-08-11 10:38] VITALS: BP 148/103; PULSE 99; RESP 16; TEMP 36.6; O2SAT 99
--- NOTE | 2025-08-11 12:12 | HP.PCM.HOS_ITS ---
HPI - General General Date of Admission: 08/11/25 HPI Narrative LILIAM THOMPSON, is a 34 F who presents [ ] [facility] Medical History OCD (obsessive compulsive disorder) Panic disorder Morbid (severe) obesity due to excess calories Panic disorder with agoraphobia and moderate panic attacks DARLIN (generalized anxiety disorder) Periodic fever syndrome POTS (postural orthostatic tachycardia syndrome) Home Medications ?Medication ?Instructions ?Recorded ?Last Taken ?Type fluoxetine 10 mg capsule 20 mg PO DAILY 03/02/19 Unkn own History fluvoxamine 100 mg tablet 200 mg PO DAILY 03/02/19 Unk nown History canakinumab (PF) 150 mg/mL 150 mg subcut QMONTH arthri tis 06/07/24 Unknown History subcutaneous solution (Ilaris (PF)) naratriptan 2.5 mg tablet 2.5 mg PO PRN migraines 05/09 Unknown History ondansetron 4 mg disintegrating 4 mg PO Q8H PRN PRN Na usea #10 tabs 02/24/25 Unknown Rx tablet zonisamide 50 mg capsule 150 mg PO DAILY migraine pre vention 08/11/25 Unknown History Allergy/AdvReac Type Severity Reaction Status Date / Time latex Allergy Hives Verified 08/11/25 08:47 Family History Other Diabetes Heart disease Lupus Social History Smoking Status: Never smoker alcohol intake: current alcohol intake frequency: holidays/special occasions only substance use type: marijuana Vital Signs Vital Signs Vital Signs: 08/11/25 08:44 08/11/25 10:16 08/11/25 10:38 Temperature 98.2 F 97.9 F Temperature Source Oral Pulse Rate 117 H 111 H 99 Respiratory Rate 16 16 16 Blood Pressure 188/126 H 159/115 H 148/103 H Blood Pressure Mean 146 129 118 Pulse Ox 98 99 99 Oxygen Delivery Method Room Air Room Air Weight Weight: 271 lb 4 oz Body Mass Index (BMI) 52.9 Results Lab / Micro Data 08/11/25 09:30 08/11/25 09:30 Labs: Laboratory Results - last 24 hr 08/11/25 09:30: WBC 7.9, RBC 4.33, Hgb 13.8, Hct 39.5, MCV 91.2, MCH 31.9, MCHC 34.9, RDW Std Deviation 41.6, RDW Coeff of Derrell 12.6, Plt Count 435, MPV 9.5, Immature Gran % (Auto) 0.300, Neut % (Auto) 53.0, Lymph % (Auto) 36.0, [place] % (Auto) 8.4, Eos % (Auto) 1.5, Baso % (Auto) 0.8, Absolute Neuts (auto) 4.2, Absolute Lymphs (auto) 2.83, Nucleated RBC % 0, ESR 7, Sodium 139, Potassium 4.0, Chloride 109 H, Carbon Dioxide 17.9 L, Anion Gap 12, BUN 10, Creatinine 0.68 L, Estim Creat Clear Calc 143.47, Est GFR (MDRD) Non-Af 119, BUN/Creatinine Ratio 14.2, Glucose 96, Calcium 9.5, Total Bilirubin 0.28, AST 22, ALT 21, Alkaline Phosphatase 74, Total Protein 7.0, Albumin 4.2, Globulin 2.8, Albumin/Globulin Ratio 1.5, Serum , Qual NEGATIVE 08/11/25 10:00: Urine Color Straw, Urine Clarity Clear, Urine pH 6.5, Ur Specific [place] 1.015, Urine Protein 15 H, Urine Glucose (UA) Normal, Urine Ketones Negative, Urine Occult Blood Negative, Urine Nitrite Negative, Urine Bilirubin Negative, Urine Urobilinogen Normal, Ur Leukocyte Esterase Negative, Urine RBC 0 SEEN, Urine WBC 0 SEEN, Ur Squamous Epith Cells 0-5 SEEN, Urine Bacteria RARE, Urine Mucus 0 SEEN Imaging Radiology Impression Brain CT 08/11/25 09:03 IMPRESSION: No CT evidence of acute intracranial hemorrhage, infarct, or significant mass effect. Reading Location: [id number]
[2025-08-11 12:56] VITALS: BP 120/81; PULSE 97; RESP 18; TEMP 36.6; O2SAT 99
== END 2025-08-11 12:57 | disposition home or self-care (01) ==
PROVIDERS: Emergency Provider Emergency Medicine; PCP Internal Medicine; Visit Provider Emergency Medicine
DX: F41.1 Generalized anxiety disorder (principal); M08.20 Juvenile rheumatoid arthritis with systemic onset, unspecified site; R53.1 Weakness; F42.9 Obsessive-compulsive disorder, unspecified; R20.0 Anesthesia of skin; R20.2 Paresthesia of skin; F41.0 Panic disorder [episodic paroxysmal anxiety]
CPT/HCPCS: 70450; 80053; 81001; 84703; 85025; 85652; 96360; 96361; 99284; A4216